=== PATIENT | male | born 1960 | race African-American/Black ===

== ENCOUNTER 2017-06-25 06:51 | Day surgery (SDC) | payer MEDICAID, SELFPAY ==
[2017-06-24 13:48] VITALS: BMI 31.4
[2017-06-25 07:40] VITALS: BP 120/64; PULSE 50; RESP 18; TEMP 36.7; O2SAT 100
[2017-06-25 08:05] LABS: POC Glucose,Bedside 88 mg/dL
--- NOTE | 2017-06-25 08:07 | P.PN_ITS ---
[facility] Anesthesia Checklist - Patient Identification Patient Identification: Arm Band, Verbal (Name & ) - Structural Data Admitted From: Home Planned Operative Procedure/s: colonoscopy Consent for Planned Operative Procedure(s) Verified: Yes Verified Documents: Surgical Consent - NPO Status Verified Time NPO: 00:00 - Chart Verification Results Verified: None - Additional verifications Patient : No Anesthesia Reactions: No Hx Blood Transfusions: No Blood Transfusion Reaction: No Cephalosporin Allergy: No Previous Colonoscopy: No - Cardiovascular Assessment Heart Sounds: S1 & S2 Pulse Strength: Strong Pulse Rhythm: Regular Peripheral Edema: No - Airway Assessment C-Spine Mobility Assessed: Yes TMJ Mobility Assessed: Yes Dentition: Edentulous - Neurological Assessment Level of Consciousness: Awake, Alert, Appropriate - Anesthesia Plan Anesthesia Risk discussed: Yes ASA Class: III Anesthesia Type: MAC [facility] Anesthesia HX I have reviewed the patient's past medical history: Yes Medical History: Reports:: Coronary Artery Disease, Diabetes Mellitus Type 2, Hyperlipidemia, Hypertension, Myocardial Infarction (states slight GA years ago , unsure when), Osteoporosis Denies:: Diabetes Mellitus Type 1, Seizures Other Medical History: Reports: Anemia, Osteoporosis Laterality Cases: Left: Arthroscopy Shoulder, Right: Arthroscopy Knee Other Surgeries: Yes: Colonoscopy. No: Pacemaker Amputation: No Fractures: Yes Comment: choly, RTCR *Family Hx:: Diabetes, Heart Attack, Hyperlipidemia, Hypertension
--- NOTE | 2017-06-25 08:46 | SUR.OPER ---
CAUTERY 00, COAG 25. GROUNDED TO RIGHT FLANK. SKIN INTACT UPON REMOVAL.
[2017-06-25 09:35] VITALS: BP 113/75; PULSE 77; RESP 18; TEMP 36.5; O2SAT 99
--- NOTE | 2017-06-25 09:35 | P.PCN_ITS ---
- Procedure: Date: 06/25/17 Procedure Performed:: Colonoscopy with polypectomy Indications:: This is a 56-year-old gentleman with a history of colon polyps on multiple occasions. Performing Provider:: Deonte Robledo MD Referring Provider:: Dr. Casper Sedation:: Monitored anesthesia care Procedure:: After informed consent was obtained, the patient was taken to the endoscopy suite. Monitored anesthesia care ensued after he was transferred to the left lateral decubitus position. Digital rectal exam revealed a somewhat boggy prostate, but no definitive mass lesion was noted. The colonoscope was placed in position. The entire colon was evaluated. Bowel preparation was moderate to poor with large volume irrigation and suctioning used to somewhat improve visualization. Fairly significant spasticity and lack of relaxation were also encountered. An 8 mm sessile cecal polyp with adjacent polyp was excised by way of snare and cold biopsy forceps. A 9 mm lobulated distal transverse colon polyp with some central ulceration was noted. This area was tattooed and the polyp was excised by way of snare. A complex polyp at 50 cm was excised by way of snare. A polyp at 40 cm and an adjacent polyp were excised by way of snare. Focal inflammation at 25 cm was biopsied. A polyp at 15 cm was excised by way of snare. No additional lesions seen. The colonoscope was carefully removed and the patient was transferred to recovery. Of note, the patient some hemorrhoidal cushions with no sign of thrombosis or bleeding. Findings:: Somewhat boggy prostate Fairly mild hemorrhoidal cushions Moderate to poor bowel preparation Spasticity and lack of relaxation 8 mm sessile cecal polyp 9 mm lobulated distal transverse colon polyp (tattooed) Complex polyp at 50 cm Polyp at 40 cm and adjacent polyp Inflammation at 25 cm Polyp at 15 cm Specimens:: 8 mm sessile cecal polyp 9 mm lobulated distal transverse colon polyp (tattooed) Complex polyp at 50 cm Polyp at 40 cm and adjacent polyp Inflammation at 25 cm Polyp at 15 cm Recommendations:: Repeat colonoscopy in 6-12 months secondary to size/nature/number of polyps ( particular the somewhat ulcerated polyp of the distal transverse colon), limited bowel preparation, and spasticity/lack of relaxation. Complications:: No immediate Estimated blood obtained (mL): 1
[2017-06-25 09:45] VITALS: BP 126/69; PULSE 73; RESP 18; TEMP 36.5; O2SAT 99
[2017-06-25 09:55] VITALS: BP 121/76; PULSE 73; RESP 18; TEMP 36.5; O2SAT 95
[2017-06-25 10:05] VITALS: BP 122/82; PULSE 76; RESP 18; TEMP 36.5; O2SAT 92
[2017-06-25 10:33] VITALS: BP 122/67; PULSE 78; RESP 18; TEMP 36.5; O2SAT 93
== END 2017-06-25 10:20 | disposition home or self-care (01) ==
LOC: OUTP 06:52
PROVIDERS: PCP Emergency Medicine; Visit Provider Surgery
PROC: 0DJD8ZZ Inspection of Lower Intestinal Tract, Via Natural or Artificial Opening Endoscopic (ICD-10-PCS; CPT 45385; principal; 2017-06-25 08:00)
DX: Z09 Encounter for follow-up examination after completed treatment for conditions other than malignant neoplasm (principal); Z86.010 Personal history of colon polyps; K63.5 Polyp of colon; E11.8 Type 2 diabetes mellitus with unspecified complications
CPT/HCPCS: 45385; 45380; 45381; 82962

== ENCOUNTER → 2017-07-17 13:11 | Outpatient (REF) | payer MEDICAID, SELFPAY ==
[2017-07-17 17:37] LABS: Amphetamine/Metha Screen,Urine Negative ng/mL (<1000); Barbiturates Screen,Urine Negative ng/mL (<200); Benzodiazepines Screen,Urine Negative ng/mL (200); Cannabinoid Screen,Urine Positive ng/mL (<50); Cocaine Screen,Urine Negative ng/g (<300); Methadone Screen,Urine Negative ng/mL (<300); Opiate Screen,Urine Positive ng/mL (<300); Phencyclidine Screen,Urine Negative ng/mL (<25)
== END ==
LOC: LAB 13:11
PROVIDERS: Visit Provider Emergency Medicine
DX: Z79.899 Other long term (current) drug therapy (principal)
CPT/HCPCS: 80305

== ENCOUNTER → 2017-08-04 14:32 | Outpatient (POV) | payer MEDICAID, SELFPAY | PROVIDERS: PCP Emergency Medicine; Visit Provider Internal Medicine | DX: Z00.00 Encounter for general adult medical examination without abnormal findings (principal) ==

== ENCOUNTER → 2017-08-17 14:18 | Outpatient (REF) | payer MEDICAID, SELFPAY ==
[2017-08-17 19:17] LABS: Amphetamine/Metha Screen,Urine Negative ng/mL (<1000); Barbiturates Screen,Urine Negative ng/mL (<200); Benzodiazepines Screen,Urine Positive ng/mL (200); Cannabinoid Screen,Urine Positive ng/mL (<50); Cocaine Screen,Urine Negative ng/g (<300); Methadone Screen,Urine Negative ng/mL (<300); Opiate Screen,Urine Negative ng/mL (<300); Phencyclidine Screen,Urine Negative ng/mL (<25)
== END ==
LOC: LAB 14:18
PROVIDERS: Visit Provider Emergency Medicine
DX: Z79.899 Other long term (current) drug therapy (principal)
CPT/HCPCS: 80305

== ENCOUNTER → 2017-08-18 10:08 | Outpatient (CLI) | payer MEDICAID, SELFPAY ==
[2017-08-18 10:45] VITALS: PULSE 71; PULSE 78
--- NOTE | 2017-08-18 11:18 | CT_ITS ---
CT chest wo con HISTORY: Follow-up abnormal chest x-ray, emphysema, follow-up abnormal chest CT ITS.REASON: ABNORMAL LUNG IMAGING ORDERING PHYSICIAN: Konstantin Maurer MD PATIENT AGE: 56 years TECHNIQUE: Axial images obtained. Sagittal and coronal reformatted images are also generated and reviewed. CONTRAST: None COMPARISON: CT scan of 10/04/2015 FINDINGS: Scattered small mediastinal lymph nodes. These are stable compared to the previous exam. Scattered calcifications noted hilar nodes. Normal heart size. Coronary artery calcification is present. Bolus emphysematous changes are present in the lung apices. Stable 4 mm nodule right upper lobe anteriorly. Calcified granulomas are present in the right lower lobe. Stable 3 mm nodule right upper lobe fibrotic changes are present in the lung bases. No new suspicious nodules are evident. Calcified granulomas are present in the superior segment of the left lower lobe associated with . There is a nodular opacity along the inferior aspect of this region measuring 6 mm which is developed in the interval and may be due to fibrotic change. 6 month follow-up however is recommended due to the new nature of the nodule. No effusions or infiltrates. No acute bony anomalies. IMPRESSION: 1. Bullous emphysematous changes with scattered areas of fibrosis with evidence of old granulomatous disease. No change mild mediastinal adenopathy. 2. A new 6 mm nodular opacity is present associated with an area of fibrosis and small blebs in the superior segment of the left lower lobe. Recommend 6 month follow-up
[2017-08-18 11:50] VITALS: BP 120/70; BP 130/82; PULSE 71; PULSE 82; RESP 18; RESP 24; O2SAT 91; O2SAT 99
== END ==
PROVIDERS: PCP Emergency Medicine; Visit Provider Internal Medicine
DX: R91.8 Other nonspecific abnormal finding of lung field (principal); J44.9 Chronic obstructive pulmonary disease, unspecified; R06.02 Shortness of breath
CPT/HCPCS: 71250; 94060; 94618; 94640; 94726; 94729

== ENCOUNTER → 2017-08-19 10:00 | Outpatient (CLI) | payer MEDICAID, SELFPAY ==
--- NOTE | 2017-08-19 | CA_ITS ---
PROCEDURE: 2-D M-mode and color Doppler study INDICATIONS FOR THE TEST: Chest pain X COPD Heart Murmur Tobacco SmokingX Palpitations Fatigue Syncope EdemaX HypertensionXDiabetes MellitusX Rheumatic Fever SOBXDOEXObesity Hyperlipidemia Family History HD Additional History PAD,CLAUDICATION,CAD PATIENT INFORMATION HEIGHT: 65 WEIGHT:192 GENDER: Male B/P:152/95 2-D/M-MODE INTERPRETATION: 2-D MEASUREMENTS OBSERVED VALUES IN CMS Right Ventricular Dimension (RVDd) .9 Interventricular Septum (Thickness)(IVsd) .7 Left Ventricular Internal Dimensions(LVIDd) 5.7 Left Ventricular Posterior Wall (Thickness)(LVPWd) .8 Aortic Root 3.3 Aortic Cusp Separation 1.6 Left Atrial Dimensions (LAD) 3.4 2D 1. Left atrium is qualitatively mildly enlarged, left ventricle is normal size, left ventricle wall thickness is upper limit of the normal, there is preserved left ventricular systolic function, visually estimated ejection fraction 55% with no obvious regional wall motion abnormality. 2. The right atrium is mildly enlarged, right ventricle is normal size and contractility. 3. The aortic valve is minimally thickened and fibrosed. 4. The mitral and tricuspid valve leaflets are minimally thickened. 5. The pulmonic valve is poorly visualized. 6. No significant pericardial effusion noted. DOPPLER INTERROGATION: Doppler interrogation of the aortic, mitral and tricuspid valvular presence of mild mitral and tricuspid regurgitation, tricuspid regurgitant jet velocity insufficient for calculation of the right ventricular systolic pressure, diastolic parameters are within normal range. CONCLUSION: 1. Mild biatrial enlargement, normal left ventricular size, preserved left ventricular systolic function, visually estimated ejection fraction 55% with no obvious regional wall motion abnormality. 2. Mild mitral and tricuspid regurgitation 3. No significant pericardial effusion noted.
--- NOTE | 2017-08-19 10:05 | US_ITS ---
US Arterial Ankle Brachial Ind INDICATION: Leg pain, claudication, hypertension, ex-smoker, coronary artery, hyperlipidemia ORDERING PHYSICIAN: Lonny Gonzalez MD PATIENT AGE: 56 years TECHNIQUE: Segmental pressures obtained of both right and left leg. These are compared to brachial blood pressure to yield index at each level sampled including summary DENNIS. The data sheets from the procedure are available in PACS FINDINGS Rest study only performed today No prior studies available for comparison. Blood pressures reported are in millimeters mercury. RIGHT LEG DENNIS = 1.0. Right TBI is 0.8 Brachial BP: 121 Thigh BP: 115 Calf BP: 129 Ankle PT: 128 Ankle DP : 130 Digit =99 LEFT LEG DENNIS = 1.2 Left TBI 0.8 Brachial BPD: 117 Thigh BP: 120 Calf BP: 133 Ankle PT:141 Ankle DP: 133 Digit 96 Pulses and waveforms: Normal IMPRESSION: The ABIs and TBI's as reported above are within normal limits. Waveforms and pulses are also unremarkable.
== END ==
PROVIDERS: PCP Emergency Medicine; Visit Provider Internal Medicine
DX: R07.9 Chest pain, unspecified (principal); R06.02 Shortness of breath; I73.9 Peripheral vascular disease, unspecified
CPT/HCPCS: 93306; 93922

== ENCOUNTER → 2017-09-07 09:48 | Outpatient (POV) | payer MEDICAID, SELFPAY | PROVIDERS: PCP Emergency Medicine; Visit Provider Specialist | DX: R20.2 Paresthesia of skin (principal); R20.0 Anesthesia of skin; R29.898 Other symptoms and signs involving the musculoskeletal system | CPT/HCPCS: 95886; 95910 ==

== ENCOUNTER → 2017-09-09 14:56 | Outpatient (CLI) | payer MEDICAID, SELFPAY ==
--- NOTE | 2017-09-09 14:59 | XR_ITS ---
X-ray 5 view C-spine XR cervical spine w flex/ext included Ordering Physician: Ellen Pierre MD Patient Age: 56 years: Male HISTORY: ITS.REASON: neck pain. No injury TECHNIQUE: 5 view C-spine series also flexion and extension views COMPARISON No cervical studies for comparison:March 2017 rib series FINDINGS Cervical spondylosis and degenerative disc changes C6/7 most pronounced disc space narrowing. Posterior hypertrophic ridging. Posterior Spurring yielding bilateral foraminal encroachment. Anterior marginal osteophytes most evident at this level. C5/6. Mild disc space narrowing and cervical spondylosis. Posterior hypertrophic ridging yields mild bilateral foraminal encroachment most evident the left at this level The remaining disc spaces appear intact. And remaining neural foramen patent with no significant encroachment. Apices the lungs clear. C1-C2 relationships normal. Minor degenerative facet changes seen in the C-spine. Flexion and extension views were included. No subluxation Perhaps very slight decreased, slightly limited flexion and extension from C5 through C7 but no subluxation. IMPRESSION 1. Cervical spondylosis & degenerative disc changes most pronounced at C6/7, C5-C6. Details above. . Posterior Spurring yields mild foraminal encroachment at both these levels 2. Flexion-extension views show only slight decreased mobility in this segment but no subluxation
--- NOTE | 2017-09-09 14:59 | XR_ITS ---
XR lumbar spine 2-3V Ordering Physician: Ellen Pierre MD Patient Age: 56 years: Male HISTORY: ITS.REASON: back pain TECHNIQUE: AP lateral and spot view lumbar spine COMPARISON :CT abdomen pelvis from 02/05/2017 FINDINGS The lumbar vertebral bodies appear intact. I would note that the images the lateral image includes only the inferior aspect of T12-S4 .. Patient with borderline narrowing at posterior aspect of L5/S1 disc space on the spot image L4/5Borderline disc narrowing posteriorly.. L3/4 with mild diffuse disc space narrowing prior CT showed trace disc bulge with borderline/to perhaps very early posterior hypertrophic ridging as seen towards the foramen bilaterally Multilevel anterior marginal osteophytes throughout the L-spine . These above features previously demonstrated on the sagittal reconstructions from CT abdomen pelvis 02/05/2017. IMPRESSION-- Mild degenerative changes Suggestion Scant disc space narrowing L3/4 disc level. Additional details in text. Marginal osteophytes
== END ==
PROVIDERS: PCP Emergency Medicine; Visit Provider Specialist
DX: M54.2 Cervicalgia (principal); R20.0 Anesthesia of skin; R20.2 Paresthesia of skin; M54.41 Lumbago with sciatica, right side; G89.29 Other chronic pain; R29.898 Other symptoms and signs involving the musculoskeletal system
CPT/HCPCS: 72052; 72100

== ENCOUNTER → 2017-09-10 08:51 | Outpatient (CLI) | payer MEDICAID, SELFPAY | PROVIDERS: PCP Emergency Medicine; Visit Provider Internal Medicine | DX: Z01.818 Encounter for other preprocedural examination (principal); F17.200 Nicotine dependence, unspecified, uncomplicated; I20.9 Angina pectoris, unspecified; I25.10 Atherosclerotic heart disease of native coronary artery without angina pectoris; I10 Essential (primary) hypertension; E78.4 Other hyperlipidemia; R06.02 Shortness of breath; E11.9 Type 2 diabetes mellitus without complications | CPT/HCPCS: 93017 ==

== ENCOUNTER → 2017-09-11 08:45 | Outpatient (REF) | payer MEDICAID, SELFPAY ==
[2017-09-14 12:47] LABS: Amphetamine/Metha Screen,Urine Negative ng/mL (<1000); Barbiturates Screen,Urine Negative ng/mL (<200); Benzodiazepines Screen,Urine Negative ng/mL (200); Cannabinoid Screen,Urine Positive ng/mL (<50); Cocaine Screen,Urine Negative ng/g (<300); Methadone Screen,Urine Negative ng/mL (<300); Opiate Screen,Urine Positive ng/mL (<300); Phencyclidine Screen,Urine Negative ng/mL (<25)
== END ==
LOC: LAB 08:45
PROVIDERS: Visit Provider Emergency Medicine
DX: Z79.891 Long term (current) use of opiate analgesic (principal)
CPT/HCPCS: 80305

== ENCOUNTER → 2017-10-12 09:39 | Outpatient (REF) | payer MEDICAID, SELFPAY ==
[2017-10-12 14:51] LABS: Amphetamine/Metha Screen,Urine Negative ng/mL (<1000); Barbiturates Screen,Urine Negative ng/mL (<200); Benzodiazepines Screen,Urine Negative ng/mL (200); Cannabinoid Screen,Urine Positive ng/mL (<50); Cocaine Screen,Urine Negative ng/g (<300); Methadone Screen,Urine Negative ng/mL (<300); Opiate Screen,Urine Positive ng/mL (<300); Phencyclidine Screen,Urine Negative ng/mL (<25)
== END ==
LOC: LAB 09:39
PROVIDERS: Visit Provider Nurse Practitioner Family
DX: Z79.899 Other long term (current) drug therapy (principal)
CPT/HCPCS: 80305

== ENCOUNTER → 2017-10-16 06:15 | Outpatient (CLI) | payer MEDICAID, SELFPAY ==
--- NOTE | 2017-10-16 06:18 | NM_ITS ---
History and Indications: Coronary artery disease, previous MT, hypertension, diabetes, hyperlipidemia, family history, chest pain, shortness of breath and fatigue Procedure: Patient received a 0.4 mg of Lexiscan, resting heart rate was 47 bpm resting blood pressure 131/69,with Lexiscan maximum heart rate achieved was 91 bpm which is less than 85% of the maximum predicted heart rate and a blood pressure was 135/73. With Lexiscan patient complained of shortness of breath and nausea. Electrocardiogram: Resting electrocardiogram showed sinus bradycardia with Lexiscan there is less than 1.[address] segment depression noted from the baseline EKG. The EKG portion of the Lexiscan Myoview is nondiagnostic. Cardiac stress and resting SPECT images: Cardiac stress and rest SPECT images were obtained using technetium 99 Myoview 32.2 mCi at stress gated 10.8 mCi at rest, gated SPECT further analysis of segmental wall motion and calculation of the ejection fraction also done. Cardiac stress and rest images show uniform myocardial activity without any segmental perfusion abnormality, computer derived ejection fraction is 48% with no obvious regional wall motion abnormality, right ventricle is mildly enlarged with normal contractility. Conclusion: 1. The EKG portion of the Lexiscan Myoview is nondiagnostic. 2. No obvious scintigraphic evidence of reversible ischemia seen, computer derived ejection fraction is 48% with no obvious regional wall motion abnormality, right ventricle is mildly enlarged with normal contractility.
--- NOTE | 2017-10-16 09:05 | HMH.ITSHM ---
metformin furosemide lisinopril metoprolol asa clopidogrel lovastatin ventolin
== END ==
PROVIDERS: PCP Emergency Medicine; Visit Provider Emergency Medicine
DX: R42 Dizziness and giddiness (principal)
CPT/HCPCS: 78452; 93017; A9502; J2785

== ENCOUNTER → 2017-11-03 10:10 | Outpatient (REF) | payer MEDICAID, SELFPAY ==
[2017-11-03 15:28] LABS: Amphetamine/Metha Screen,Urine Negative ng/mL (<1000); Barbiturates Screen,Urine Negative ng/mL (<200); Benzodiazepines Screen,Urine Negative ng/mL (200); Cannabinoid Screen,Urine Positive ng/mL (<50); Cocaine Screen,Urine Negative ng/g (<300); Methadone Screen,Urine Negative ng/mL (<300); Opiate Screen,Urine Negative ng/mL (<300); Phencyclidine Screen,Urine Negative ng/mL (<25)
== END ==
LOC: LAB 10:10
PROVIDERS: Visit Provider Emergency Medicine
DX: Z79.899 Other long term (current) drug therapy (principal)
CPT/HCPCS: 80305

== ENCOUNTER → 2017-11-09 13:48 | Outpatient (REF) | payer MEDICAID, SELFPAY ==
[2017-11-09 19:47] LABS: Alanine Aminotransferase 50 U/L (12-78); Alkaline Phosphatase 104 U/L (46-116); Aspartate Amino Transferase 28 U/L (15-37); Bilirubin,Direct 0.2 mg/dL (0.0-0.2); Bilirubin,Indirect 0.4 mg/dL (0.0-0.9); Bilirubin,Total 0.6 mg/dL (0.2-1.0); Total Protein,Serum 7.1 gm/dL (6.4-8.2)
[2017-11-09 20:37] LABS: Hemoglobin A1C 6.3 % (0.0-7.0)
[2017-11-09 21:55] LABS: Amphetamine/Metha Screen,Urine Negative ng/mL (<1000); Barbiturates Screen,Urine Negative ng/mL (<200); Benzodiazepines Screen,Urine Negative ng/mL (200); Cannabinoid Screen,Urine Positive ng/mL (<50); Cocaine Screen,Urine Negative ng/g (<300); Methadone Screen,Urine Negative ng/mL (<300); Opiate Screen,Urine Positive ng/mL (<300); Phencyclidine Screen,Urine Negative ng/mL (<25)
[2017-11-11 09:29] LABS: Hep A Ab, IgM Negative (Negative); Hepatitis B Core Antibody IgM Negative (Negative); Hepatitis B Surface Antigen Negative (Negative)
[2017-11-12 06:24] LABS: Hepatitis C Antibody <0.1 s/co ratio (0.0-0.9)
== END ==
LOC: LAB 13:48
PROVIDERS: Visit Provider Emergency Medicine
DX: E11.9 Type 2 diabetes mellitus without complications (principal); R53.83 Other fatigue; Z79.899 Other long term (current) drug therapy
CPT/HCPCS: 80074; 80076; 80305; 83036; 87522

== ENCOUNTER → 2017-12-02 13:59 | Outpatient (CLI) | payer MEDICAID, SELFPAY ==
--- NOTE | 2017-12-02 14:00 | XR_ITS ---
XR knee RT 4V HISTORY: ITS.REASON: right knee pain/ weightbearing views ORDERING PHYSICIAN: Jim Ram MD PATIENT AGE: 56 years COMPARISON: 11/20/2016 FINDINGS: Minimal osteoarthritic changes are present involving the medial compartment and patellofemoral joint. No fracture or dislocation is evident. No lytic or blastic change. No significant change from the previous exam. 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
== END ==
PROVIDERS: PCP Emergency Medicine; Visit Provider Orthopaedic Surgery
DX: M25.561 Pain in right knee (principal)
CPT/HCPCS: 73564

== ENCOUNTER → 2017-12-11 10:19 | Outpatient (CLI) | payer MEDICAID, SELFPAY ==
[2017-12-11 17:28] LABS: Amphetamine/Metha Screen,Urine Negative ng/mL (<1000); Barbiturates Screen,Urine Negative ng/mL (<200); Benzodiazepines Screen,Urine Negative ng/mL (<200); Cannabinoid Screen,Urine Positive ng/mL (<50); Cocaine Screen,Urine Negative ng/mL (<300); Methadone Screen,Urine Negative ng/mL (<300); Opiate Screen,Urine Negative ng/mL (<300); Phencyclidine Screen,Urine Negative ng/mL (<25)
== END ==
PROVIDERS: Visit Provider Emergency Medicine
DX: Z79.899 Other long term (current) drug therapy (principal)
CPT/HCPCS: 80305

== ENCOUNTER → 2017-12-30 10:50 | Outpatient (CLI) | payer MEDICAID, SELFPAY ==
[2017-12-30 13:48] LABS: Basophils # 0.1 K/mm3 (0-0.2); Basophils % 0.7 % (0.1-2.0); Eosinophils # 0.1 K/mm3 (0.0-0.4); Eosinophils % 1.5 % (0.1-12.0); Hematocrit 43.7 % (42.0-52.0); Hemoglobin 14.3 g/dL (14.1-18.0); Lymphocytes # 1.7 K/mm3 (0.7-4.5); Lymphocytes % 22.7 K/mm3 (10-50); Mean Corpuscular HGB Conc 32.7 g/dL (31.8-35.4); Mean Corpuscular Hemoglobin 31.1 pg (27.0-31.2); Mean Platelet Volume 7.5 fl (7.4-10.4); Monocytes # 0.5 K/mm3 (0.1-1.0); Neutrophils # 5.2 K/mm3 (1.8-7.8); Neutrophils % 68.1 % (37.0-80.0); Platelet Count 316 K/mm3 (142-424); Red Cell Distribution Width 13.3 % (11.5-17.5); White Blood Count 7.6 K/mm3 (4.8-10.8)
[2017-12-30 14:39] LABS: Erythrocyte Sedimentation Rate 25 mm/hr (0-20)
--- NOTE | 2017-12-30 14:42 | XR_ITS ---
XR chest 2V HISTORY: ITS.REASON: coughing up blood ORDERING PHYSICIAN: Marcos Casper MD PATIENT AGE: 57 years Technique: PA and lateral chest COMPARISON: Previous CT chest 08/18/2017 reveal bullous emphysematous changes with areas of fibrosis and granulomatous disease. Today's chest film appears similar to that CT scan view and similar to a March 2017 chest film from rib series. No discrete new findings. Again we see the large bulla, bleb superior to the left stephanie with the mild prominence left stephanie is similar to previous study. Stranding or scarring related to the the large bulla medial left upper chest is again noted. The right lung is clear unremarkable. Heart stephanie and mediastinal structures unremarkable. Calcified hilar nodes bilaterally. No pleural effusion. Chest wall unremarkable. Normal pulmonary vascularity. IMPRESSION...... PA and lateral chest stable chest. No acute findings COPD with bullous emphysematous changes again noted at left chest again noted Generous left stephanie appears similar to previous studies If symptoms progress follow-up suggested
== END ==
LOC: LAB 10:52 → RAD 14:42
PROVIDERS: PCP Emergency Medicine; Visit Provider Emergency Medicine
DX: R04.2 Hemoptysis (principal); Z72.0 Tobacco use
CPT/HCPCS: 71046; 85025; 85651

== ENCOUNTER → 2018-01-07 14:04 | Outpatient (CLI) | payer MEDICAID, SELFPAY ==
--- NOTE | 2018-01-07 14:06 | CT_ITS ---
CT chest wo con HISTORY: ITS.REASON: hemoptysis ORDERING PHYSICIAN: Marcos Casper MD PATIENT AGE: 57 years COMPARISON: 08/18/2017 Technique: Axial images obtained with sagittal and coronal reformats. All CT scans at the facility use one or more dose reduction, viz: automated exposure control, ma/kV adjustment per patient size (including targeted exams where dose is matched to indication, i.e. head), or iterative reconstruction technique. FINDINGS: There are scattered small mediastinal and hilar lymph nodes not significantly changed. No aortic aneurysm. Normal heart size. There are coronary artery calcifications. Extensive bullous changes are present in the upper lobes. There is evidence of old granulomatous disease. A noncalcified nodule present in the right upper lobe anteriorly at 4 mm unchanged. There is a noncalcified 6 mm nodule in the superior segment of the left lower lobe unchanged adjacent to some mild bullous changes and calcified granulomas. No new nodules are evident. There scattered calcified granulomas. No effusions or infiltrates. There is mild diffuse bronchial thickening. There is some mild infiltration of the axillary fat on both sides. This is of questionable etiology. Upper abdominal images shows mild dilatation of the mid abdominal aorta measuring up to 2.4 cm. IMPRESSION: 1. Stable CT appearance of the chest. 2. No change in the noncalcified pulmonary nodules and bullous changes.
== END ==
PROVIDERS: PCP Emergency Medicine; Visit Provider Emergency Medicine
DX: R04.2 Hemoptysis (principal); Z72.0 Tobacco use
CPT/HCPCS: 71250

== ENCOUNTER → 2018-01-26 10:55 | Outpatient (REF) | payer MEDICAID, SELFPAY ==
[2018-01-27 16:58] LABS: Amphetamine/Metha Screen,Urine Negative ng/mL (<1000); Barbiturates Screen,Urine Negative ng/mL (<200); Benzodiazepines Screen,Urine Negative ng/mL (<200); Cannabinoid Screen,Urine Positive ng/mL (<50); Cocaine Screen,Urine Negative ng/mL (<300); Methadone Screen,Urine Negative ng/mL (<300); Opiate Screen,Urine Negative ng/mL (<300); Phencyclidine Screen,Urine Negative ng/mL (<25)
== END ==
LOC: LAB 10:55
PROVIDERS: Visit Provider Emergency Medicine
DX: Z79.899 Other long term (current) drug therapy (principal)
CPT/HCPCS: 80305

== ENCOUNTER 2018-02-02 15:15 | Observation (INO) ==
--- NOTE | 2018-02-02 16:01 | Emergency Department Note ---
ED Disposition Clinical Impression: Lower gastrointestinal bleed Disposition: Still a Patient Condition on Discharge: Good Referrals: Marcos Casper MD [Primary Care Provider] - Forms: Work/School Release - Critical Care Critical Care Time: No Attestation: On 02/02/18, the high probability of a clinically significant, sudden or life threatening deterioration of the following system(s) required my full and direct attention, intervention and personal management. The time I documented below is in addition to time spent performing reported procedures but includes the following listed in this critical care notation. Medical Decision Making - [place] Inquiry Pt receiving controlled substance: No Vital Signs: 02/02/18 15:23 02/02/18 15:34 02/02/18 15:47 Temperature 98.9 F Temperature Source Oral Pulse Rate [Left Radial] 59 L 60 65 Respiratory Rate 16 Blood Pressure [Right Arm] 112/70 118/75 120/78 Blood Pressure Mean [Right Arm] 84 89 92 Blood Pressure Source [Right Arm] Manual Cuff/ Doppler Manual Cuff/ Doppler Blood Pressure Position [Right Arm] Sitting Sitting 02 Sat by Pulse Oximetry 98 97 100 Oxygen Delivery Method Room Air 02/02/18 16:21 02/02/18 16:55 Temperature Temperature Source Pulse Rate [Left Radial] 70 78 Respiratory Rate Blood Pressure [Right Arm] 127/82 130/79 Blood Pressure Mean [Right Arm] 97 96 Blood Pressure Source [Right Arm] Manual Cuff/ Doppler Automatic Cuff Blood Pressure Position [Right Arm] Sitting Sitting 02 Sat by Pulse Oximetry 100 98 Oxygen Delivery Method - Lab Data Lab Results 02/02/18 15:45: WBC 7.1, RBC 4.19 L, Hgb 13.3 L, Hct 40.2 L, MCV 95.9 H, MCH 31.7 H, MCHC 33.1, RDW 13.6, Plt Count 271, MPV 7.0 L, Neut % (Auto) 61.5, Lymph % (Auto) 30.7, [place] % (Auto) 5.5, Eos % (Auto) 1.8, Baso % (Auto) 0.6, Neut # (Auto) 4.3, Lymph # (Auto) 2.2, [place] # (Auto) 0.4, Eos # (Auto) 0.1, Baso # (Auto) 0.0 02/02/18 15:45: Sodium 136, Potassium 3.8, Chloride 103, Carbon Dioxide 31, Anion Gap 5.8, BUN 14, Creatinine 1.16, Estimated Creat Clear 85, Estimated GFR 65, Est GFR ( Amer) 79, Glucose 104, Calcium 8.8, Total Bilirubin 0.8, AST 12 L, ALT 18, Alkaline Phosphatase 84, Total Protein 7.5, Albumin 3.9, Globulin 3.6 H, Albumin/Globulin Ratio 1.1 02/02/18 15:45: PT 10.2, INR 0.99, APTT 29.9 02/02/18 16:05: Stool Occult Blood Positive A Result diagrams: 02/02/18 15:45 02/02/18 15:45 Orders (Tests/Meds): ED MEDICATIONS Discontinued Medications Generic Name Dose Route Start Last Admin Trade Name Freq PRN Reason Stop Dose Admin Sodium Chloride 1,000 mls @ 999 mls/hr 02/02/18 15:45 02/02/18 15:50 Sod Chlor 0.9% 1000ml Bag IV 02/02/18 16:45 999 mls/hr .[id number] YADY Administration - Physician Consults Physician Consulted: Becca Robledo Time: 16:56 Reason -: Surgical Eval/Care Comment/Response: Requests admission for observation under primary care provider , consult for Dr. Robledo to see the patient in the morning Additional Consult: Erin Casper Time: 17:08 Reason -: Admission Comment/Response: Agrees to admit the patient to the hospital. We discussed the patient's clinical information, including history, exam, laboratory and radiology results and ED course. Per hospital procedure, I will write temporary bridge inpatient orders on the patient. Specific orders requested by the admitting physician: Serial H&H, surgical consult General Adult HPI - General Chief complaint: GI Bleed Stated complaint: blood in stool Time Seen by Provider: 02/02/18 16:01 Mode of Arrival: Ambulatory Limitations: No Limitations Description of Symptoms (Recalled from ER Triage Doc. by RN): Pt states that he had a colonoscopy the and went for fu today and after went to the bathroom and had dark blood colored stool with some right abdomen pain - History of Present Illness HPI narrative: Patient states he had colonoscopy done on 01/21/18. Had a follow-up appointment today with Dr. Robledo. He says after his appointment he developed some right sided abdominal pain. He then went home and passed a large amount of dark red blood into the toilet. He estimates 1/2 pint to 1 pint. No vomiting of blood. No fever. He is on Plavix. - Related Data Home Medications Medication Instructions Recorded Confirmed metformin 850 mg tablet 850 mg PO BID 06/17/17 02/02/18 Amlodipine Besylate [Amlodipine 10 mg PO DAILY 11/02/17 02/02/18 10mg Tab] Blood Sugar Diagnostic [Blood 0 units .ROUTE .MEDSUPPLY 11/02/17 02/02/18 Glucose Test Strip] hydroCHLOROthiazide [HCTZ 12.5mg 12.5 mg PO QAM 11/02/17 02/02/18 capsule] Sucralfate [Sucralfate 1gm 1 g PO BID 02/02/18 02/02/18 Tab] Previous Rx's Medication Instructions Recorded albuterol sulfate HFA 90 2 puff INHALATION Q4-6H PRN 90 09/07/17 mcg/actuation aerosol inhaler Days #3 units fluticasone 50 mcg/actuation nasal 50 mcg INTRANASAL DAILY PRN 90 09/07/17 spray,suspension Days #47.4 g aspirin 81 mg tablet,delayed 81 mg PO QDAY #30 tab 10/05/17 release lansoprazole 30 mg capsule,delayed 30 mg PO QHS #90 cap 12/03/17 release metoprolol tartrate 25 mg tablet 25 mg PO BID #180 tab MDD 12/03/17 hypertension gabapentin 800 mg tablet 800 mg PO TID 30 Days #90 tab 12/30/17 furosemide 40 mg tablet 40 mg PO DAILY 30 Days #30 tab 01/01/18 lisinopril 20 mg tablet 20 mg PO QDAY #90 tab 01/01/18 clopidogrel 75 mg tablet 75 mg PO DAILY #30 tab 02/01/18 lovastatin 20 mg tablet 20 mg PO QHS #90 tab 02/01/18 Allergies Allergy/AdvReac Type Severity Reaction Status Date / Time naproxen [NAPROXEN] Allergy Mild NA-NAUSEA/V Verified 02/02/18 09:31 OMITING tramadol [TRAMADOL] Allergy Mild NA-NAUSEA Verified 02/02/18 09:31 [facility] History I have reviewed the patient's past medical history: Yes Medical History: Reports:: Chronic Obstructive Pulmonary Disease (COPD), Coronary Artery Disease, Cerebrovascular Accident, Diabetes Mellitus Type 2, Hyperlipidemia, Hypertension, Myocardial Infarction, Osteoporosis Denies:: Seizures Other Medical History: Reports: Anemia, Arthritis, Cataracts, Osteoporosis. Denies: Blood Transfusion Reaction Comment: Sleep apnea, enlarged prostate, neck pain, back pain, stroke, neuropathy, rls, anxiety Laterality Cases: Left: Arthroscopy Shoulder, Right: Arthroscopy Knee Other Surgeries: Yes: Colonoscopy Amputation: No Fractures: Yes Comment: Gallbladder, cardiac cath, cardiac ablation - Social History Smoking Status: Former smoker Tobacco Type: cigarettes # Packs/Day (cigarettes): 1 Alcohol Intake: never Alcohol Intake Frequency:: holidays/special occasions only Substance Use Type: marijuana Occupational Status: disabled - Psychiatric History Expresses thoughts of harming self/others: None Suicide Plan Description: No Plan Family Hx:: Diabetes, Hypertension, Heart Attack ROS Obtained: Yes All systems reviewed & no additional complaints - Constitutional Constitutional: Denies fever(s) - Cardiovascular Cardiovascular: Denies chest pain - Respiratory Respiratory: No dyspnea - Gastrointestinal Gastrointestingal: Reports: abdominal pain, bright red blood in stools. Denies : vomiting blood Physical Exam - General General appearance: alert, in no apparent distress - Head Head exam: atraumatic, normocephalic, normal inspection - Eye Eye exam: Present: normal appearance, PERRL, EOMI - ENT ENT exam: Present: normal exam, normal oropharynx, mucous membranes moist, TM's normal bilaterally, normal external ear exam - Neck Neck exam: Present: normal inspection, full ROM, trachea midline. Absent: meningismus, lymphadenopathy - Chest Chest inspection: Present: normal inspection, symmetric chest wall rise. Absent : tenderness - Respiratory Respiratory exam: Present: normal lung sounds bilaterally. Absent: respiratory distress - Cardiovascular Cardiovascular exam: Present: regular rate, normal rhythm. Absent: JVD - Abdominal Exam Abdominal exam: Present: soft, tenderness, normal bowel sounds. Absent: distention, guarding, rebound, rigidity Abdominal tenderness: Present: RUQ, RLQ, mild - Rectal Exam Rectal exam: Present: normal inspection, normal rectal tone, tenderness, other ( Small amount of bright red blood in rectum). Absent: mass - Extremities Exam Extremities exam: Present: normal inspection, full ROM, normal capillary refill. Absent: calf tenderness - Back Exam Back exam: Present: normal inspection. Absent: tenderness - Neurological Exam Neurological exam: Present: alert, oriented X3 - Psychiatric Psychiatric exam: Present: normal affect, normal mood - Skin Skin exam: Present: warm, dry, intact, normal color
[2018-02-02 16:06] LABS: Basophils % 0.6 % (0.1-2.0); Eosinophils # 0.1 K/mm3 (0.0-0.4); Eosinophils % 1.8 % (0.1-12.0); Hematocrit 40.2 % (42.0-52.0); Hemoglobin 13.3 g/dL (14.1-18.0); Lymphocytes # 2.2 K/mm3 (0.7-4.5); Lymphocytes % 30.7 K/mm3 (10-50); Mean Corpuscular HGB Conc 33.1 g/dL (31.8-35.4); Mean Corpuscular Hemoglobin 31.7 pg (27.0-31.2); Mean Corpuscular Volume 95.9 fl (80-94); Monocytes # 0.4 K/mm3 (0.1-1.0); Monocytes % 5.5 % (1.7-9.3); Neutrophils # 4.3 K/mm3 (1.8-7.8); Neutrophils % 61.5 % (37.0-80.0); Platelet Count 271 K/mm3 (142-424); Red Blood Count 4.19 M/mm3 (4.60-6.20); Red Cell Distribution Width 13.6 % (11.5-17.5); White Blood Count 7.1 K/mm3 (4.8-10.8)
[2018-02-02 16:07] LABS: Activated Partial Thrombo Time 29.9 seconds (23.6-34.0); INR 0.99 (0.9-1.1); Prothrombin Time 10.2 seconds (9.4-11.8)
[2018-02-02 16:09] LABS: Albumin Level 3.9 gm/dL (3.4-5.0); Albumin/Globulin Ratio 1.1 (1.1-1.8); Anion Gap 5.8 mEq/L (5-15); Bilirubin,Total 0.8 mg/dL (0.2-1.0); Calcium 8.8 mg/dL (8.5-10.1); Globulin 3.6 gm/dl (1.3-3.2); Potassium 3.8 mmoL/L (3.5-5.1); Total Protein,Serum 7.5 gm/dL (6.4-8.2)
[2018-02-02 22:04] LABS: Basophils % 0.6 % (0.1-2.0); Eosinophils # 0.2 K/mm3 (0.0-0.4); Eosinophils % 3.1 % (0.1-12.0); Hematocrit 39.7 % (42.0-52.0); Lymphocytes # 2.9 K/mm3 (0.7-4.5); Lymphocytes % 46.2 K/mm3 (10-50); Mean Corpuscular HGB Conc 32.7 g/dL (31.8-35.4); Mean Corpuscular Hemoglobin 31.3 pg (27.0-31.2); Mean Corpuscular Volume 95.7 fl (80-94); Mean Platelet Volume 7.4 fl (7.4-10.4); Monocytes # 0.4 K/mm3 (0.1-1.0); Monocytes % 6.7 % (1.7-9.3); Neutrophils # 2.7 K/mm3 (1.8-7.8); Neutrophils % 43.5 % (37.0-80.0); Platelet Count 267 K/mm3 (142-424); Red Blood Count 4.15 M/mm3 (4.60-6.20); Red Cell Distribution Width 13.6 % (11.5-17.5); White Blood Count 6.2 K/mm3 (4.8-10.8)
[2018-02-03 06:14] LABS: Basophils % 0.9 % (0.1-2.0); Eosinophils # 0.2 K/mm3 (0.0-0.4); Eosinophils % 3.5 % (0.1-12.0); Hematocrit 38.6 % (42.0-52.0); Hemoglobin 12.6 g/dL (14.1-18.0); Lymphocytes # 2.6 K/mm3 (0.7-4.5); Lymphocytes % 56.8 K/mm3 (10-50); Mean Corpuscular HGB Conc 32.7 g/dL (31.8-35.4); Mean Corpuscular Hemoglobin 31.6 pg (27.0-31.2); Mean Corpuscular Volume 96.6 fl (80-94); Mean Platelet Volume 6.9 fl (7.4-10.4); Monocytes # 0.3 K/mm3 (0.1-1.0); Monocytes % 5.7 % (1.7-9.3); Neutrophils # 1.5 K/mm3 (1.8-7.8); Platelet Count 238 K/mm3 (142-424); Red Blood Count 3.99 M/mm3 (4.60-6.20); Red Cell Distribution Width 13.7 % (11.5-17.5); White Blood Count 4.6 K/mm3 (4.8-10.8)
--- NOTE | 2018-02-03 06:23 | Consult Report ---
*Admission Date: 02/02/18 *Chief complaint: blood in stool *History of present illness: This is a 57-year-old gentleman who recently underwent colonoscopy with removal of a small adenomatous polyp. He was seen in follow-up yesterday and was essentially without complaint. After returning home he developed some right- sided abdominal pain and subsequently had significant "dark blood in stool". Some epigastric and right-sided "crampy" pain. Review of Systems - Constitutional Denies body ache(s) - Eyes Denies change in vision - ENT Denies change in voice - *Cardiovascular Denies chest pain - *Respiratory Denies cough, Denies shortness of breath - *Gastrointestinal Reports abdominal pain, Reports black, tarry stools, Denies vomiting blood, Denies bright, red blood in stools - *Genitourinary Denies difficulty urinating - *Musculoskeletal Denies abnormal walking [facility] History Medical History: Reports:: Chronic Obstructive Pulmonary Disease (COPD), Coronary Artery Disease, Cerebrovascular Accident, Diabetes Mellitus Type 2, Hyp erlipidemia, Hypertension, Myocardial Infarction, Osteoporosis Denies:: Cancer, Diabetes Mellitus Type 1, MRSA, Seizures Other Medical History: Reports: Anemia, Arthritis, Cataracts, Osteoporosis. Denies: Blood Transfusion Reaction Laterality Cases: Left: Arthroscopy Shoulder, Right: Arthroscopy Knee Other Surgeries: Yes: Cardiac Catheterization, Cholecystectomy, Colonoscopy, EGD Amputation: No Fractures: No - *Social History Educational Level: Completed High School Smoking Status: Former smoker Tobacco Type: cigarettes # Packs/Day (cigarettes): 1 #Yrs smoked (if former smoker): 40 Smoking End Date: 06/22/2017 Alcohol Intake: former Alcohol Intake Frequency:: holidays/special occasions only Substance Use Type: marijuana Occupational Status: disabled Housing: apartment Household Members: children - Psychiatric History Expresses thoughts of harming self/others: None Suicide Plan Description: No Plan *Family Hx:: Cancer, Coronary Artery Disease, Diabetes, Heart Attack, Hyperlipidemia, Hypertension, Stroke Meds Home Medications Medication Instructions Recorded Confirmed Type metformin 850 mg tablet 850 mg PO BID 06/17/17 02/02/18 History Amlodipine Besylate [Amlodipine 10 mg PO DAILY 11/02/17 02/02/18 History 10mg Tab] Blood Sugar Diagnostic [Blood 0 units .ROUTE .MEDSUPPLY 11/02/17 02/02/18 H istory Glucose Test Strip] hydroCHLOROthiazide [HCTZ 12.5mg 12.5 mg PO QAM 11/02/17 02/02/18 History capsule] Hydrocod/Acet 5/325 mg [[place] 1 each PO BID 02/02/18 02/02/18 History 5/325mg tablet] Sucralfate [Sucralfate 1gm 1 g PO BID 02/02/18 02/02/18 History Tab] Allergies Allergy/AdvReac Type Severity Reaction Status Date / Time naproxen [NAPROXEN] Allergy Mild NA-NAUSEA/V Verified 02/02/18 09:31 OMITING tramadol [TRAMADOL] Allergy Mild NA-NAUSEA Verified 02/02/18 09:31 Exam Vital signs and Labs for Last 24 Hours: Temp Pulse Resp BP Pulse Ox 97.9 F 42 L 14 115/52 100 02/03/18 04:00 02/03/18 04:00 02/03/18 04:00 02/03/18 04:00 02/03/18 04:00 Laboratory Results - last 24 hr 02/02/18 15:45: WBC 7.1, RBC 4.19 L, Hgb 13.3 L, Hct 40.2 L, MCV 95.9 H, MCH 31.7 H, MCHC 33.1, RDW 13.6, Plt Count 271, MPV 7.0 L, Neut % (Auto) 61.5, Lymph % (Auto) 30.7, [place] % (Auto) 5.5, Eos % (Auto) 1.8, Baso % (Auto) 0.6, Neut # (Auto) 4.3, Lymph # (Auto) 2.2, [place] # (Auto) 0.4, Eos # (Auto) 0.1, Baso # (Auto) 0.0 02/02/18 15:45: Sodium 136, Potassium 3.8, Chloride 103, Carbon Dioxide 31, Anion Gap 5.8, BUN 14, Creatinine 1.16, Estimated Creat Clear 85, Estimated GFR 65, Est GFR ( Amer) 79, Glucose 104, Calcium 8.8, Total Bilirubin 0.8, AST 12 L, ALT 18, Alkaline Phosphatase 84, Total Protein 7.5, Albumin 3.9, Globulin 3.6 H, Albumin/Globulin Ratio 1.1 02/02/18 15:45: PT 10.2, INR 0.99, APTT 29.9 02/02/18 16:05: Stool Occult Blood Positive A 02/02/18 21:11: POC Glucose 121 H 02/02/18 21:58: WBC 6.2, RBC 4.15 L, Hgb 13.0 L, Hct 39.7 L, MCV 95.7 H, MCH 31.3 H, MCHC 32.7, RDW 13.6, Plt Count 267, MPV 7.4, Neut % (Auto) 43.5, Lymph % (Auto) 46.2, [place] % (Auto) 6.7, Eos % (Auto) 3.1, Baso % (Auto) 0.6, Neut # (Auto) 2.7, Lymph # (Auto) 2.9, [place] # (Auto) 0.4, Eos # (Auto) 0.2, Baso # (Auto) 0.0 02/03/18 05:08: WBC 4.6 L D, RBC 3.99 L, Hgb 12.6 L, Hct 38.6 L, MCV 96.6 H, MCH 31.6 H, MCHC 32.7, RDW 13.7, Plt Count 238, MPV 6.9 L, Neut % (Auto) 33.0 L, Lymph % (Auto) 56.8 H, [place] % (Auto) 5.7, Eos % (Auto) 3.5, Baso % (Auto) 0.9, Neut # (Auto) 1.5 L, Lymph # (Auto) 2.6, [place] # (Auto) 0.3, Eos # (Auto) 0.2, Baso # (Auto) 0.0 I & O for Last 24 hours: Intake & Output 01/31/18 02/01/18 02/02/18 02/03/18 11:59 11:59 11:59 11:59 Weight 183 lb 7.993 oz - Constitutional no acute distress - *Routine HEENT Exam Head: Present: normocephalic, atraumatic - *Routine Neck Exam Present: full ROM - *Routine Respiratory Exam Absent: respiratory distress - *Routine Cardiovascular Exam Present: RRR - *Routine Abdominal Exam Present: soft Results - Labs 02/03/18 05:08 02/02/18 15:45 Laboratory Results - last 24 hr 02/02/18 15:45: WBC 7.1, RBC 4.19 L, Hgb 13.3 L, Hct 40.2 L, MCV 95.9 H, MCH 31.7 H, MCHC 33.1, RDW 13.6, Plt Count 271, MPV 7.0 L, Neut % (Auto) 61.5, Lymph % (Auto) 30.7, [place] % (Auto) 5.5, Eos % (Auto) 1.8, Baso % (Auto) 0.6, Neut # (Auto) 4.3, Lymph # (Auto) 2.2, [place] # (Auto) 0.4, Eos # (Auto) 0.1, Baso # (A uto) 0.0 02/02/18 15:45: Sodium 136, Potassium 3.8, Chloride 103, Carbon Dioxide 31, Anion Gap 5.8, BUN 14, Creatinine 1.16, Estimated Creat Clear 85, Estimated GFR 65, Est GFR ( Amer) 79, Glucose 104, Calcium 8.8, Total Bilirubin 0.8, AST 12 L, ALT 18, Alkaline Phosphatase 84, Total Protein 7.5, Albumin 3.9, Globulin 3.6 H, Albumin/Globulin Ratio 1.1 02/02/18 15:45: PT 10.2, INR 0.99, APTT 29.9 02/02/18 16:05: Stool Occult Blood Positive A 02/02/18 21:11: POC Glucose 121 H 02/02/18 21:58: WBC 6.2, RBC 4.15 L, Hgb 13.0 L, Hct 39.7 L, MCV 95.7 H, MCH 31.3 H, MCHC 32.7, RDW 13.6, Plt Count 267, MPV 7.4, Neut % (Auto) 43.5, Lymph % (Auto) 46.2, [place] % (Auto) 6.7, Eos % (Auto) 3.1, Baso % (Auto) 0.6, Neut # (Auto) 2.7, Lymph # (Auto) 2.9, [place] # (Auto) 0.4, Eos # (Auto) 0.2, Baso # (Auto) 0.0 02/03/18 05:08: WBC 4.6 L D, RBC 3.99 L, Hgb 12.6 L, Hct 38.6 L, MCV 96.6 H, MCH 31.6 H, MCHC 32.7, RDW 13.7, Plt Count 238, MPV 6.9 L, Neut % (Auto) 33.0 L, Lymph % (Auto) 56.8 H, [place] % (Auto) 5.7, Eos % (Auto) 3.5, Baso % (Auto) 0.9, Neut # (Auto) 1.5 L, Lymph # (Auto) 2.6, [place] # (Auto) 0.3, Eos # (Auto) 0.2, Baso # (Auto) 0.0 Assessment and Plan (1) Gastrointestinal hemorrhage Current visit: Yes Status: Acute Category: Medical Code(s): K92.2 - Noemy rointestinal hemorrhage, unspecified Uncertain with regard to source; however, as he does complain of "dark blood in stool" the possibility of an upper source exists and esophagogastroduodenoscopy is warranted. He did recently undergo colonoscopy with removal of a small adenomatous polyp. Some hemorrhoidal cushions noted; however, no thrombosis or active bleeding was seen at that time. The patient did have fairly poor bowel preparation and further evaluation of his colon may be warranted in the very near future. In addition, the possibility of a small bowel source that is not amenable to endoscopy is a consideration. EGD today
--- NOTE | 2018-02-03 07:27 | Pharmacy Consult Notes ---
[facility] Pharmacy VTE Monitoring - Patient Demographics Admission date: 02/02/18 Report Date: 02/03/18 Time: 07:27 Allergies/Adverse Reactions: Patient Allergies naproxen [NAPROXEN] Allergy (Mild, Verified 02/02/18 09:31) NA-NAUSEA/VOMITING tramadol [TRAMADOL] Allergy (Mild, Verified 02/02/18 09:31) NA-NAUSEA Height: 1.65 m Weight: 83.234 kg Patient Problems: Current Active Problems Lower gastrointestinal bleed (Acute) Gastrointestinal hemorrhage (Acute) - VTE Risk Labs: VTE Related Lab Results Hgb 12.6 g/dL (14.1-18.0) L 02/03/18 05:08 Hct 38.6 % (42.0-52.0) L 02/03/18 05:08 Plt Count 238 K/mm3 (142-424) 02/03/18 05:08 PT 10.2 seconds (9.4-11.8) 02/02/18 15:45 INR 0.99 (0.9-1.1) 02/02/18 15:45 APTT 29.9 seconds (23.6-34.0) 02/02/18 15:45 BUN 14 mg/dL (7-18) 02/02/18 15:45 Creatinine 1.16 mg/dL (0.70-1.30) 02/02/18 15:45 Estimated Creat Clear 85 mL/min (0-300) 02/02/18 15:45 Was VTE Risk Assessment Performed: Yes VTE Score: 2 VTE Risk Level: Low Risk Clinical Trial Participant: No - Prophylaxis VTE Prophylaxis Ordered?: Yes Types of VTE Prophylaxis: TEDS Knee High
[2018-02-03 08:37] LABS: Eosinophils % 3 % (0-3); Lymphocytes % 56 % (10-50); Monocytes % 13 % (2-9); Neutrophils % 26 % (42-76); RBC Morphology Normal; Total Cells Counted 100
--- NOTE | 2018-02-03 09:23 | History & Physical Report ---
*Admission Date: 02/02/18 *Chief complaint: gi bleeding *History of present illness: This is a 57-year-old gentleman who recently underwent colonoscopy with removal of a small adenomatous polyp. He was seen in follow-up yesterday and was essentially without complaint. After returning home he developed some right- sided abdominal pain and subsequently had significant "dark blood in stool". Some epigastric and right-sided "crampy" pain. [facility] History I have reviewed the patient's past medical history: Yes Medical History: Reports:: Chronic Obstructive Pulmonary Disease (COPD), Coronary Artery Disease, Cerebrovascular Accident, Diabetes Mellitus Type 2, Hyperlipidemia, Hypertension, Myocardial Infarction, Osteoporosis Denies:: Cancer, Diabetes Mellitus Type 1, MRSA, Seizures Other Medical History: Reports: Anemia, Arthritis, Cataracts, Osteoporosis. Denies: Blood Transfusion Reaction Laterality Cases: Left: Arthroscopy Shoulder, Right: Arthroscopy Knee Other Surgeries: Yes: Cardiac Catheterization, Cholecystectomy, Colonoscopy, EGD Amputation: No Fractures: No - *Social History Educational Level: Completed High School Smoking Status: Former smoker Tobacco Type: cigarettes # Packs/Day (cigarettes): 1 #Yrs smoked (if former smoker): 40 Smoking End Date: 06/22/2017 Alcohol Intake: former Alcohol Intake Frequency:: holidays/special occasions only Substance Use Type: marijuana Occupational Status: disabled Housing: apartment Household Members: children - Psychiatric History Expresses thoughts of harming self/others: None Suicide Plan Description: No Plan *Family Hx:: Cancer, Coronary Artery Disease, Diabetes, Heart Attack, Hyperlipidemia, Hypertension, Stroke Review of Systems - Review of Systems Review of systems:: pertinent systems reviewed and negative unless documented below - Constitutional Denies fever(s), Denies headache(s) - Eyes Denies change in vision - ENT Denies sore throat - *Cardiovascular Denies chest pain with activity - *Respiratory Denies cough - *Gastrointestinal Reports abdominal pain, Reports black, tarry stools, Reports nausea, Denies coffee ground vomit - *Genitourinary Denies blood in urine - *Musculoskeletal Denies joint pain - Integumentary/Breasts Denies rash - *Neurologic Reports abnormal walking, Denies seizure-like activity - Psychiatric Denies anxiety Meds Home Medications Medication Instructions Recorded Confirmed Type metformin 850 mg tablet 850 mg PO BID 06/17/17 02/02/18 History Amlodipine Besylate [Amlodipine 10 mg PO DAILY 05/28/18 08/28/18 History 10mg Tab] Blood Sugar Diagnostic [Blood 0 units .ROUTE .MEDSUPPLY 11/02/17 02/02/18 History Glucose Test Strip] hydroCHLOROthiazide [HCTZ 12.5mg 12.5 mg PO QAM 11/02/17 02/02/18 History capsule] Hydrocod/Acet 5/325 mg [[place] 1 each PO BID 02/02/18 02/02/18 History 5/325mg tablet] Sucralfate [Sucralfate 1gm 1 g PO BID 02/02/18 02/02/18 History Tab] Allergies Allergy/AdvReac Type Severity Reaction Status Date / Time naproxen [NAPROXEN] Allergy Mild NA-NAUSEA/V Verified 02/02/18 09:31 OMITING tramadol [TRAMADOL] Allergy Mild NA-NAUSEA Verified 02/02/18 09:31 Exam Vital signs and Labs for Last 24 Hours: Temp Pulse Resp BP Pulse Ox 97.6 F 45 L 18 121/68 98 02/03/18 07:52 02/03/18 07:52 02/03/18 07:52 02/03/18 07:52 02/03/18 08:00 Laboratory Results - last 24 hr 02/02/18 15:45: WBC 7.1, RBC 4.19 L, Hgb 13.3 L, Hct 40.2 L, MCV 95.9 H, MCH 31.7 H, MCHC 33.1, RDW 13.6, Plt Count 271, MPV 7.0 L, Neut % (Auto) 61.5, Lymph % (Auto) 30.7, [place] % (Auto) 5.5, Eos % (Auto) 1.8, Baso % (Auto) 0.6, Neut # (Auto) 4.3, Lymph # (Auto) 2.2, [place] # (Auto) 0.4, Eos # (Auto) 0.1, Baso # (Auto) 0.0 02/02/18 15:45: Sodium 136, Potassium 3.8, Chloride 103, Carbon Dioxide 31, Anion Gap 5.8, BUN 14, Creatinine 1.16, Estimated Creat Clear 85, Estimated GFR 65, Est GFR ( Amer) 79, Glucose 104, Calcium 8.8, Total Bilirubin 0.8, AST 12 L, ALT 18, Alkaline Phosphatase 84, Total Protein 7.5, Albumin 3.9, Globulin 3.6 H, Albumin/Globulin Ratio 1.1 02/02/18 15:45: PT 10.2, INR 0.99, APTT 29.9 02/02/18 16:05: Stool Occult Blood Positive A 02/02/18 21:11: POC Glucose 121 H 02/02/18 21:58: WBC 6.2, RBC 4.15 L, Hgb 13.0 L, Hct 39.7 L, MCV 95.7 H, MCH 31.3 H, MCHC 32.7, RDW 13.6, Plt Count 267, MPV 7.4, Neut % (Auto) 43.5, Lymph % (Auto) 46.2, [place] % (Auto) 6.7, Eos % (Auto) 3.1, Baso % (Auto) 0.6, Neut # (Auto) 2.7, Lymph # (Auto) 2.9, [place] # (Auto) 0.4, Eos # (Auto) 0.2, Baso # (Auto) 0.0 02/03/18 05:08: WBC 4.6 L D, RBC 3.99 L, Hgb 12.6 L, Hct 38.6 L, MCV 96.6 H, MCH 31.6 H, MCHC 32.7, RDW 13.7, Plt Count 238, MPV 6.9 L, Neut % (Auto) 33.0 L, Lymph % (Auto) 56.8 H, [place] % (Auto) 5.7, Eos % (Auto) 3.5, Baso % (Auto) 0.9, Neut # (Auto) 1.5 L, Lymph # (Auto) 2.6, [place] # (Auto) 0.3, Eos # (Auto) 0.2, Baso # (Auto) 0.0, Total Counted 100, Neutrophils % (Manual) 26 L, Lymphocytes % (Manual) 56 H, Atypical Lymphs % 2.0, Monocytes % (Manual) 13 H, Eosinophils % (Manual) 3, Platelet Estimate Normal, RBC Morphology Normal 02/03/18 06:40: POC Glucose 107 I & O for Last 24 hours: Intake & Output 08/02/01/18 02/02/18 02/03/18 11:59 11:59 11:59 11:59 Weight 183 lb 8 oz - Constitutional no acute distress - *Routine HEENT Exam Head: Present: normocephalic Eye: Present: EOMI, PERRL ENT: Present: mucous membranes dry - *Routine Neck Exam Present: supple - *Routine Respiratory Exam Present: CTA bilaterally - *Routine Cardiovascular Exam Present: RRR, murmur - *Routine Abdominal Exam Present: soft, tenderness - *Routine Extremities Exam Absent: edema - *Routine Skin Exam Present: intact - *Routine Neurological Exam Present: alert, oriented X3, CN II-XII intact - Routine Psychiatric Exam Present: normal affect Assessment and Plan (1) Gastrointestinal hemorrhage Current visit: Yes Status: Acute Category: Medical Code(s): K92.2 - Gastrointestinal hemorrhage, unspecified (2) DM (diabetes mellitus) Current visit: No Status: Chronic Qualifiers: Diabetes mellitus type: type 2 Diabetes mellitus assisted insulin use: [facility] assisted use Diabetes mellitus complication status: without complication Qualified Code(s): E11.9 - Type 2 diabetes mellitus without complications Category: Medical Code(s): E11.9 - Type 2 diabetes mellitus without complications
--- NOTE | 2018-02-03 09:39 | Progress Note ---
[facility] Anesthesia Checklist - Patient Identification Patient Identification: Arm Band, Verbal (Name & ) - Structural Data Admitted From: Inpatient Planned Operative Procedure/s: EGD Consent for Planned Operative Procedure(s) Verified: Yes Verified Documents: Surgical Consent, History and Physical - NPO Status Verified Time NPO: 00:00 - Additional verifications Anesthesia Reactions: No - Airway Assessment C-Spine Mobility Assessed: Yes TMJ Mobility Assessed: Yes Dentition: Good Dentition - Neurological Assessment Level of Consciousness: Awake Hx Seizures: No Numbness or tingling in extremities: No - Anesthesia Plan Anesthesia Risk discussed: Yes Anesthesia Plan: Verified ASA Class: III (Emergent) Anesthesia Type: [facility] Anesthesia HX I have reviewed the patient's past medical history: Yes Medical History: Reports:: Chronic Obstructive Pulmonary Disease (COPD), Coronary Artery Disease, Diabetes Mellitus Type 2, Hyperlipidemia, Hypertension, Myocardial Infarction, Osteoporosis, Renal Insufficiency, Transient Ischemic Attacks (TIA) Denies:: Cancer, Diabetes Mellitus Type 1, MRSA, Seizures Other Medical History: Reports: Anemia, Arthritis, Cataracts, Osteoporosis, Other (YAMILE, former smoker 8 months ago). Denies: Blood Transfusion Reaction Laterality Cases: Left: Arthroscopy Shoulder, Right: Arthroscopy Knee Other Surgeries: Yes: Cardiac Catheterization, Cholecystectomy, Colonoscopy, EGD Amputation: No Fractures: No *Family Hx:: Cancer, Coronary Artery Disease, Diabetes, Heart Attack, Hyperlipidemia, Hypertension, Stroke
--- NOTE | 2018-02-03 10:28 | Procedure Note ---
- Procedure: Date: 02/03/18 Procedure Performed:: Esophagogastroduodenoscopy with biopsy Indications:: Gastrointestinal hemorrhage Performing Provider:: Deonte Robledo MD Referring Provider:: Dr. Casper Sedation:: Monitored anesthesia care Procedure:: After informed consent was obtained, the patient was taken to the endoscopy suite. Monitored anesthesia care ensued after he was transferred to the left lateral decubitus position. The gastroscope was advanced. Some inflammatory changes distally were noted. The stomach was entered. Patchy/streaking moderate gastritis was noted distally. A very small ulceration of the antrum that was essentially healed was noted. Biopsies were obtained. Also within the antrum and apparent diverticulum versus inverted lesion was noted. The lesion was everted and biopsies were obtained. The lesion did appear to be somewhat inflamed. The pylorus is intubated. The duodenal mucosa appeared very inflamed and somewhat lobulated. An area fairly some lobulation and inflammatory edges in the duodenal bulb was biopsied. No active bleeding was noted. An additional antral biopsy was obtained and the gastroscope was carefully removed. The patient was transferred to recovery. Findings:: Moderate streaking gastritis Fairly severe lobulated duodenitis Antral diverticula versus inverted lesion Specimens:: Tiny (essentially healed) antral ulceration Diverticulum versus inverted lesion of antrum Antral biopsy Duodenal bulb biopsy Recommendations:: Continue proton pump inhibition and Carafate Begin H2 blockade Follow-up pending pathology Consideration of ongoing evaluation of remaining bowel with regard to possible etiology of hemorrhage Complications:: No immediate Estimated blood obtained (mL): 1
--- NOTE | 2018-02-03 12:32 | Discharge Summary ---
General - General Admission date:: 02/02/18 Discharge date: 02/03/18 HPI HPI: This is a 57-year-old gentleman who recently underwent colonoscopy with removal of a small adenomatous polyp. He was seen in follow-up yesterday and was essentially without complaint. After returning home he developed some right- sided abdominal pain and subsequently had significant "dark blood in stool". Some epigastric and right-sided "crampy" pain. Hospital Course Hospital Course: pt did well in hospital with no sig bleeding and was seen by surg -) Gastrointestinal hemorrhage Current visit: Yes Status: Acute Category: Medical Code(s): K92.2 - Gastrointestinal hemorrhage, unspecified Uncertain with regard to source; however, as he does complain of "dark blood in stool" the possibility of an upper source exists and esophagogastroduodenoscopy is warranted. He did recently undergo colonoscopy with removal of a small adenomatous polyp. Some hemorrhoidal cushions noted; however, no thrombosis or active bleeding was seen at that time. The patient did have fairly poor bowel preparation and further evaluation of his colon may be warranted in the very near future. In addition, the possibility of a small bowel source that is not amenable to endoscopy is a consideration. pt had egd which showed fter informed consent was obtained, the patient was taken to the endoscopy suite. Monitored anesthesia care ensued after he was transferred to the left lateral decubitus position. The gastroscope was advanced. Some inflammatory changes distally were noted. The stomach was entered. Patchy/streaking moderate gastritis was noted distally. A very small ulceration of the antrum that was essentially healed was noted. Biopsies were obtained. Also within the antrum and apparent diverticulum versus inverted lesion was noted. The lesion was everted and biopsies were obtained. The lesion did appear to be somewhat inflamed. The pylorus is intubated. The duodenal mucosa appeared very inflamed and somewhat lobulated. An area fairly some lobulation and inflammatory edges in the duodenal bulb was biopsied. No active bleeding was noted. An additional antral biopsy was obtained and the gastroscope was carefully removed. The patient was transferred to recovery. Findings:: Moderate streaking gastritis Fairly severe lobulated duodenitis Antral diverticula versus inverted lesion Specimens:: Tiny (essentially healed) antral ulceration Diverticulum versus inverted lesion of antrum Antral biopsy Duodenal bulb biopsy Recommendations:: Continue proton pump inhibition and Carafate Begin H2 blockade Follow-up pending pathology Consideration Objective Vital signs: Temp Pulse Resp BP Pulse Ox 97.3 F L 50 L 16 135/80 97 02/03/18 11:35 02/03/18 11:35 02/03/18 11:35 02/03/18 11:35 02/03/18 11:35 no acute distress - *Routine HEENT Exam Head: Present: normocephalic Eye: Present: EOMI, PERRL ENT: Present: mucous membranes dry - *Routine Neck Exam Present: supple - *Routine Respiratory Exam Present: CTA bilaterally - *Routine Cardiovascular Exam Present: RRR, murmur - *Routine Abdominal Exam Present: soft, tenderness - *Routine Extremities Exam Present: full ROM - *Routine Skin Exam Present: intact - *Routine Neurological Exam Present: alert, oriented X3, CN II-XII intact - Routine Psychiatric Exam Present: normal affect Results Labs on day of discharge: Labs from last 24 hours 02/03/18 02/03/18 02/03/18 11:20 06:40 05:08 WBC 4.6 L D RBC 3.99 L Hgb 12.6 L Hct 38.6 L MCV 96.6 H MCH 31.6 H MCHC 32.7 RDW 13.7 Plt Count 238 MPV 6.9 L Neut % (Auto) 33.0 L Lymph % (Auto) 56.8 H [place] % (Auto) 5.7 Eos % (Auto) 3.5 Baso % (Auto) 0.9 Neut # (Auto) 1.5 L Lymph # (Auto) 2.6 [place] # (Auto) 0.3 Eos # (Auto) 0.2 Baso # (Auto) 0.0 Total Counted 100 Neutrophils % (Manual) 26 L Lymphocytes % (Manual) 56 H Atypical Lymphs % 2.0 Monocytes % (Manual) 13 H Eosinophils % (Manual) 3 Platelet Estimate Normal RBC Morphology Normal PT INR APTT Sodium Potassium Chloride Carbon Dioxide Anion Gap BUN Creatinine Estimated Creat Clear Estimated GFR Est GFR ( Amer) Glucose POC Glucose 130 H 107 Calcium Total Bilirubin AST ALT Alkaline Phosphatase Total Protein Albumin Globulin Albumin/Globulin Ratio Stool Occult Blood 02/02/18 02/02/18 02/02/18 21:58 21:11 16:05 WBC 6.2 RBC 4.15 L Hgb 13.0 L Hct 39.7 L MCV 95.7 H MCH 31.3 H MCHC 32.7 RDW 13.6 Plt Count 267 MPV 7.4 Neut % (Auto) 43.5 Lymph % (Auto) 46.2 [place] % (Auto) 6.7 Eos % (Auto) 3.1 Baso % (Auto) 0.6 Neut # (Auto) 2.7 Lymph # (Auto) 2.9 [place] # (Auto) 0.4 Eos # (Auto) 0.2 Baso # (Auto) 0.0 Total Counted Neutrophils % (Manual) Lymphocytes % (Manual) Atypical Lymphs % Monocytes % (Manual) Eosinophils % (Manual) Platelet Estimate RBC Morphology PT INR APTT Sodium Potassium Chloride Carbon Dioxide Anion Gap BUN Creatinine Estimated Creat Clear Estimated GFR Est GFR ( Amer) Glucose POC Glucose 121 H Calcium Total Bilirubin AST ALT Alkaline Phosphatase Total Protein Albumin Globulin Albumin/Globulin Ratio Stool Occult Blood Positive A 02/02/18 02/02/18 02/02/18 15:45 15:45 15:45 WBC 7.1 RBC 4.19 L Hgb 13.3 L Hct 40.2 L MCV 95.9 H MCH 31.7 H MCHC 33.1 RDW 13.6 Plt Count 271 MPV 7.0 L Neut % (Auto) 61.5 Lymph % (Auto) 30.7 [place] % (Auto) 5.5 Eos % (Auto) 1.8 Baso % (Auto) 0.6 Neut # (Auto) 4.3 Lymph # (Auto) 2.2 [place] # (Auto) 0.4 Eos # (Auto) 0.1 Baso # (Auto) 0.0 Total Counted Neutrophils % (Manual) Lymphocytes % (Manual) Atypical Lymphs % Monocytes % (Manual) Eosinophils % (Manual) Platelet Estimate RBC Morphology PT 10.2 INR 0.99 APTT 29.9 Sodium 136 Potassium 3.8 Chloride 103 Carbon Dioxide 31 Anion Gap 5.8 BUN 14 Creatinine 1.16 Estimated Creat Clear 85 Estimated GFR 65 Est GFR ( Amer) 79 Glucose 104 POC Glucose Calcium 8.8 Total Bilirubin 0.8 AST 12 L ALT 18 Alkaline Phosphatase 84 Total Protein 7.5 Albumin 3.9 Globulin 3.6 H Albumin/Globulin Ratio 1.1 Stool Occult Blood DS: Diagnosis - Discharge Diagnosis (1) Gastrointestinal hemorrhage Status: Acute (2) DM (diabetes mellitus) Status: Chronic (3) Gastritis and gastroduodenitis with hemorrhage Status: Acute Discharge Plan - Patient Discharge Instructions ACTIVITY: Continue current activity DIET: continue same diet - Follow up Plan Follow up with: Deonte Robledo MD [Staff Physician] - 1 week Disposition: Home, Self-Jail Medications: Home Medications Medication Instructions Recorded Confirmed Type metformin 850 mg tablet 850 mg PO BID 06/17/17 02/02/18 History Amlodipine Besylate [Amlodipine 10 mg PO DAILY 11/02/17 02/02/18 History 10mg Tab] Blood Sugar Diagnostic [Blood 0 units .ROUTE .MEDSUPPLY 11/02/17 02/02/18 History Glucose Test Strip] hydroCHLOROthiazide [HCTZ 12.5mg 12.5 mg PO QAM 11/02/17 02/02/18 History capsule] Hydrocod/Acet 5/325 mg [[place] 1 each PO BID 02/02/18 02/02/18 History 5/325mg tablet] Sucralfate [Sucralfate 1gm 1 g PO BID 02/02/18 02/02/18 History Tab] Prescriptions/Medication Reconciliation: New raNITIdine HCl [Zantac] 150 mg PO BID #60 tablet Pravastatin Sodium [Pravachol 20mg Tablet] 20 mg PO HS tablet Continue albuterol sulfate HFA 90 mcg/actuation aerosol inhaler 2 puff INHALATION Q4- 6H PRN 90 Days #3 units PRN Reason: shortness of breath or wheezing fluticasone 50 mcg/actuation nasal spray,suspension 50 mcg INTRANASAL DAILY PRN 90 Days #47.4 g PRN Reason: allergies lansoprazole 30 mg capsule,delayed release 30 mg PO QHS #90 cap lovastatin 20 mg tablet 20 mg PO QHS #90 tab clopidogrel 75 mg tablet 75 mg PO DAILY #30 tab metformin 850 mg tablet 850 mg PO BID metoprolol tartrate 25 mg tablet 25 mg PO BID #180 tab MDD hypertension gabapentin 800 mg tablet 800 mg PO TID 30 Days #90 tab furosemide 40 mg tablet 40 mg PO DAILY 30 Days #30 tab lisinopril 20 mg tablet 20 mg PO QDAY #90 tab hydroCHLOROthiazide [HCTZ 12.5mg capsule] 12.5 mg PO QAM Blood Sugar Diagnostic [Blood Glucose Test Strip] 0 units .ROUTE .MEDSUPPLY Amlodipine Besylate [Amlodipine 10mg Tab] 10 mg PO DAILY Sucralfate [Sucralfate 1gm Tab] 1 g PO BID Discontinued aspirin 81 mg tablet,delayed release 81 mg PO QDAY #30 tab Hydrocod/Acet 5/325 mg [[place] 5/325mg tablet] 1 each PO BID
[2018-02-03 12:51] VITALS: BP 136/76
== END 2018-02-03 13:14 | disposition home or self-care (01) ==
LOC: 2ND 15:15 → ER 15:15 → 2ND 18:12
PROVIDERS: ADMIT Internal Medicine Adolescent Medicine; ATTEND Emergency Medicine

== ENCOUNTER → 2018-02-11 07:58 | Outpatient (CLI) | payer MEDICAID, SELFPAY ==
[2018-02-11 08:17] LABS: Hematocrit 41.5 % (42.0-52.0); Hemoglobin 13.7 g/dL (14.1-18.0)
== END ==
PROVIDERS: PCP Emergency Medicine; Visit Provider Surgery
DX: D64.9 Anemia, unspecified (principal)
CPT/HCPCS: 36415; 85014; 85018

== ENCOUNTER → 2018-02-15 09:29 | Outpatient (CLI) | payer MEDICAID, SELFPAY ==
--- NOTE | 2018-02-15 09:29 | FL_ITS ---
FL upper GI small bowel HISTORY: ITS.REASON: anemia ORDERING PHYSICIAN: Deonte Robledo MD PATIENT AGE: 57 years Comparison: None FINDINGS: The esophagus, stomach, and duodenum have an unremarkable appearance. There is no evidence of hiatal hernia. No ulcer or mass evident. No mucosal abnormalities apparent. There is normal peristalsis. The duodenal C-loop is nondisplaced. FLUOROSCOPY TIME : 2 minutes and 4 seconds. IMPRESSION: Negative upper GI
== END ==
PROVIDERS: PCP Emergency Medicine; Visit Provider Surgery
DX: D64.9 Anemia, unspecified (principal)
CPT/HCPCS: 74245

== ENCOUNTER → 2018-02-16 13:39 | Outpatient (REF) | payer MEDICAID, SELFPAY ==
[2018-02-16 19:42] LABS: Amphetamine/Metha Screen,Urine Negative ng/mL (<1000); Barbiturates Screen,Urine Negative ng/mL (<200); Benzodiazepines Screen,Urine Negative ng/mL (<200); Cannabinoid Screen,Urine Positive ng/mL (<50); Cocaine Screen,Urine Negative ng/mL (<300); Methadone Screen,Urine Negative ng/mL (<300); Opiate Screen,Urine Negative ng/mL (<300); Phencyclidine Screen,Urine Negative ng/mL (<25)
== END ==
LOC: LAB 13:39
PROVIDERS: Visit Provider Emergency Medicine
DX: Z79.899 Other long term (current) drug therapy (principal)
CPT/HCPCS: 80305

== ENCOUNTER → 2018-02-23 11:55 | Outpatient (POV) | payer MEDICAID, SELFPAY | PROVIDERS: PCP Emergency Medicine; Visit Provider Internal Medicine | DX: Z00.00 Encounter for general adult medical examination without abnormal findings (principal) ==

== ENCOUNTER → 2018-03-24 08:01 | Outpatient (REF) | payer MEDICAID, SELFPAY ==
[2018-03-25 11:03] LABS: Amphetamine/Metha Screen,Urine Negative ng/mL (<1000); Barbiturates Screen,Urine Negative ng/mL (<200); Benzodiazepines Screen,Urine Negative ng/mL (<200); Cannabinoid Screen,Urine Positive ng/mL (<50); Cocaine Screen,Urine Negative ng/mL (<300); Methadone Screen,Urine Negative ng/mL (<300); Opiate Screen,Urine Negative ng/mL (<300); Phencyclidine Screen,Urine Negative ng/mL (<25)
[2018-04-30 20:15] LABS: Opiates NEGATIVE
== END ==
LOC: LAB 08:01
PROVIDERS: PCP Emergency Medicine; Visit Provider Emergency Medicine
DX: Z79.899 Other long term (current) drug therapy (principal)
CPT/HCPCS: 80305; 80361; G0480

== ENCOUNTER → 2018-04-15 08:46 | Outpatient (CLI) | payer MEDICAID, SELFPAY ==
--- NOTE | 2018-04-15 08:56 | MR_ITS ---
MR abdomen wo/w con INDICATION: Follow-up pancreatic mass ITS.REASON: attention to pancreas ORDERING PHYSICIAN: Marcos Casper MD PATIENT AGE: 57 years COMPARISON: 02/18/2017 TECHNIQUE: Axial images are obtained without and with gadolinium enhancement . Sagittal and coronal reformatted images are reviewed as well. All CT scans at the facility use one or more dose reduction, viz: automated exposure control, ma/kV adjustment per patient size (including targeted exams where dose is matched to indication, i.e. head), or iterative reconstruction technique. FINDINGS: There is a 3 x 2.4 cm microcystic mass involving the head of the pancreas. This is similar to the previous exam. This lesion does not demonstrate contrast enhancement. Cannot determine if this is in communication with the pancreatic duct. This does not appear significantly changed compared to the previous exam. Liver, kidneys, spleen, and adrenal glands have an unremarkable appearance. There is minimal ectasia of the infrarenal abdominal aorta. IMPRESSION: No change in the pancreatic head mass composed of multiple small cysts which may represent a branch duct intraductal papillary mucinous neoplasm or serous microcystic cystadenoma, favor the former. Cannot determine if this is in direct continuity with the pancreatic duct due to motion artifact on the MRCP images. ERCP may confirm this finding if clinically warranted.. Main pancreatic does not appear enlarged on the raw data axial images. Suggest continued follow-up to confirm stability
[2018-04-15 09:06] LABS: Anion Gap 10.3 mEq/L (5-15); Blood Urea Nitrogen 23 mg/dL (7-18); Calcium 8.7 mg/dL (8.5-10.1); Carbon Dioxide 32 mmol/L (21.0-32.0); Chloride 104 mmol/L (98-107); Estimated Glomerular Filt Rate 69 ml/min (>60); GFR (African American) 84 ML/MIN (>60); Glucose 117 mg/dL (74-106); Potassium 4.3 mmoL/L (3.5-5.1); Sodium 142 mmol/L (136-145)
--- NOTE | 2018-04-15 10:53 | HMH.ITSHM ---
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 []METFORMIN ASPIRIN LEVASTATIN AMLODIPINE HYDROCHLOROTHIZIDE METOPROLOL CLOPIDOGREL LISINOPRIL FUROSEMIDE LORTAB 5 GABAPENTINE
== END ==
PROVIDERS: Visit Provider Emergency Medicine
DX: E11.9 Type 2 diabetes mellitus without complications (principal); K86.9 Disease of pancreas, unspecified; R10.9 Unspecified abdominal pain
CPT/HCPCS: 36415; 74183; 80048; A9576

== ENCOUNTER → 2018-04-20 13:53 | Outpatient (CLI) | payer MEDICAID, SELFPAY ==
[2018-04-20 15:33] LABS: Amphetamine/Metha Screen,Urine Negative ng/mL (<1000); Barbiturates Screen,Urine Negative ng/mL (<200); Benzodiazepines Screen,Urine Negative ng/mL (<200); Cannabinoid Screen,Urine Positive ng/mL (<50); Cocaine Screen,Urine Negative ng/mL (<300); Methadone Screen,Urine Negative ng/mL (<300); Opiate Screen,Urine Positive ng/mL (<300); Phencyclidine Screen,Urine Negative ng/mL (<25)
== END ==
PROVIDERS: Visit Provider Emergency Medicine
DX: Z79.899 Other long term (current) drug therapy (principal)
CPT/HCPCS: 80305

== ENCOUNTER → 2018-05-19 14:10 | Outpatient (CLI) | payer MEDICAID, SELFPAY ==
[2018-05-19 14:56] LABS: Amphetamine/Metha Screen,Urine Negative ng/mL (<1000); Barbiturates Screen,Urine Negative ng/mL (<200); Benzodiazepines Screen,Urine Negative ng/mL (<200); Cannabinoid Screen,Urine Positive ng/mL (<50); Cocaine Screen,Urine Negative ng/mL (<300); Methadone Screen,Urine Negative ng/mL (<300); Opiate Screen,Urine Positive ng/mL (<300); Phencyclidine Screen,Urine Negative ng/mL (<25)
== END ==
PROVIDERS: Visit Provider Emergency Medicine
DX: Z79.899 Other long term (current) drug therapy (principal)
CPT/HCPCS: 80305

== ENCOUNTER 2018-05-26 10:00 | Outpatient (RCR) | payer MEDICAID, SELFPAY ==
--- NOTE | 2018-05-03 15:38 | HMH.PTOPEV ---
PT Outpatient Evaluation Rehab PT Outpatient Evaluation Start: 05/03/18 15:26 Freq: Status: Active Protocol: Document 05/03/18 15:26 EVELIOCHRISTIE (Rec: 05/03/18 15:38 EVELIOCHRISTIE [id number]) Electronically Signed By Herson Farrell, PT 05/03/18 15:26 Outpatient Therapy Subjective History Subjective History This is the initial OP PT evaluation for Seamus Persaud. Pt rey 57 y/o male referred to PT for c/o cervical pain and subsequent headaches. Pt reports insidious onset ~ 1+ month ago. Pt reports no trauma and reports head aches began ~ 2-3 weeks ago. Chief Complaint Pain Spasms Stiff Symptom Type Ache Throb Sharp Dull Stabbing Shooting Symptoms Relieved By Nothing Symptoms Aggravated By Physical Activity Twisting Lifting Prior Functional Limitations None Current Functional Limitations Reaching Lifting Housework Driving Sleeping Recreation Activity Level of pain today (0-10) 8 Pain scale - at its best (0-10) 4 Pain scale - at its worst (0-10) 8 Cervical Eval Palpation Cervical Muscles R Cervical Paraspinal L Cervical Paraspinal R Suboccipital L Suboccipital R CT Junction L CT Junction R Thoracic Paraspinals L Thoracic Paraspinals Cervical/Thoracic Palpation Findings Tenderness AROM Cervical Spine Extension Active Range of 20 Motion (degrees) Cervical Spine Flexion Active Range of 30 Motion (degrees) Cervical Spine Right Lateral Flexion 20 Active Range of Motion (degrees) Cervical Spine Left Lateral Flexion 20 Active Range of Motion (degrees) Cervical Spine Right Rotation Active 50 Range of Motion (degrees) Cervical Spine Left Rotation Active 50 Range of Motion (degrees) MMT Bilateral Deltoid (C5) 5 Normal Biceps Brachii Strength Grade 5 Normal Wrist Extension Strength Grade 5 Norm
== END 2018-05-26 10:05 | disposition home or self-care (01) ==
LOC: PT 10:00
PROVIDERS: Visit Provider Emergency Medicine
DX: M54.2 Cervicalgia (principal)
CPT/HCPCS: 97010; 97012; 97014; 97035; 97110; 97163; G0283

== ENCOUNTER → 2018-06-18 14:34 | Outpatient (CLI) | payer MEDICAID, SELFPAY ==
[2018-06-18 15:58] LABS: Amphetamine/Metha Screen,Urine Negative ng/mL (<1000); Barbiturates Screen,Urine Negative ng/mL (<200); Benzodiazepines Screen,Urine Negative ng/mL (<200); Cannabinoid Screen,Urine Positive ng/mL (<50); Cocaine Screen,Urine Negative ng/mL (<300); Methadone Screen,Urine Negative ng/mL (<300); Opiate Screen,Urine Positive ng/mL (<300); Phencyclidine Screen,Urine Negative ng/mL (<25)
== END ==
PROVIDERS: Visit Provider Emergency Medicine
DX: Z79.899 Other long term (current) drug therapy (principal)
CPT/HCPCS: 80305

== ENCOUNTER → 2018-08-12 14:59 | Outpatient (CLI) | payer MEDICAID, SELFPAY ==
--- NOTE | 2018-08-12 15:05 | US_ITS ---
US extremity LT limited HISTORY: ITS.REASON: pain and numbness ORDERING PHYSICIAN: Rita Amaral PATIENT AGE: 57 years COMPARISON: None FINDINGS: There is an area homogeneous isoechogenicity of the left lateral by in the area of pain measuring 2.5 x 1.6 cm. This is nonspecific and could be related to lipomatous lesion. CT or MRI without and with contrast suggested for further evaluation. No other significant anomalies are evident. No cystic lesions are apparent. No evidence of abscess. IMPRESSION: Possible lipomatous lesion over the left thigh anteriorly which may be confirmed with either CT or MRI
== END ==
PROVIDERS: PCP Emergency Medicine; Visit Provider Nurse Practitioner Family
DX: M79.605 Pain in left leg (principal); R20.0 Anesthesia of skin
CPT/HCPCS: 76882

== ENCOUNTER → 2018-08-16 18:13 | Outpatient (CLI) | payer MEDICAID, SELFPAY ==
[2018-08-16 19:51] LABS: Amphetamine/Metha Screen,Urine Negative ng/mL (<1000); Barbiturates Screen,Urine Negative ng/mL (<200); Benzodiazepines Screen,Urine Negative ng/mL (<200); Cannabinoid Screen,Urine Positive ng/mL (<50); Cocaine Screen,Urine Negative ng/mL (<300); Methadone Screen,Urine Negative ng/mL (<300); Opiate Screen,Urine Positive ng/mL (<300); Phencyclidine Screen,Urine Negative ng/mL (<25)
== END ==
PROVIDERS: Visit Provider Emergency Medicine
DX: Z79.899 Other long term (current) drug therapy (principal)
CPT/HCPCS: 80305

== ENCOUNTER → 2018-08-25 12:52 | Outpatient (CLI) | payer MEDICAID, SELFPAY ==
[2018-08-25 14:01] LABS: Hematocrit 40.2 % (42.0-52.0); Hemoglobin 12.8 g/dL (14.1-18.0)
== END ==
PROVIDERS: Visit Provider Surgery
DX: K92.1 Melena (principal)
CPT/HCPCS: 36415; 85014; 85018

== ENCOUNTER 2018-08-25 13:30 | Outpatient (RCR) | payer MEDICAID, SELFPAY | END 2018-08-25 13:35 | disposition home or self-care (01) | LOC: OT 13:30 | PROVIDERS: Visit Provider Orthopaedic Surgery Adult Reconstructive Orthopaedic Surgery | DX: M65.4 Radial styloid tenosynovitis [de Quervain] (principal) | CPT/HCPCS: 97014; 97035; 97110; 97140; 97165; G0283 ==

== ENCOUNTER → 2018-09-14 10:56 | Outpatient (POV) | payer MEDICAID, SELFPAY | PROVIDERS: Visit Provider Internal Medicine | DX: Z00.00 Encounter for general adult medical examination without abnormal findings (principal) ==

== ENCOUNTER → 2018-09-21 10:59 | Outpatient (CLI) | payer MEDICAID, SELFPAY ==
--- NOTE | 2018-09-21 11:01 | NM_ITS ---
CARDIOLITE SPECT MYOCARDIAL PERFUSION LEXISCAN, REST AND STRESS: [facility] REVIEW QGS EF AND WALL MOTION EVALUATION: QPS - PERFUSION EVALUATION HISTORY: Chest pain, SOB, Fatigue, HTN, DM, Family history DOSE: 10.50 mCi technetium 99m mibi intravenously at rest followed by 32.6 mCi technetium 99m mibi following the intravenous ministration of 0.4 mg of Lexiscan. Resting blood pressure is 105/58. Stress blood pressure 113/58. FINDINGS: Ejection fraction is calculated to be 51%. Stress images reveal decreased activity in the anterior and apical wall. Rest images reveal improved activity in the anterior wall slightly decreased activity in the apex. Gated images calculated ejection fraction of 51% with normal wall motion IMPRESSION: Evidence of previous apical myocardial infarction with mild ischemia and previous nontransmural myocardial infarction involving the anterior wall with significant ischemia. Normal ejection fraction normal wall motion
--- NOTE | 2018-09-21 11:11 | HMH.ITSHM ---
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 []PANTORPRAZOLE ISOSORBIDE LISINOPRIL METFORMIN HCTZ AMLODIPINE FUROSEMIDE CLOPIDOGREL ASA LOVASTATIN METOPROLOL INHALER
== END ==
PROVIDERS: PCP Emergency Medicine; Visit Provider Internal Medicine
DX: Z01.818 Encounter for other preprocedural examination (principal); I20.9 Angina pectoris, unspecified; I25.10 Atherosclerotic heart disease of native coronary artery without angina pectoris; R06.00 Dyspnea, unspecified; R06.01 Orthopnea; E11.9 Type 2 diabetes mellitus without complications; E78.49 Other hyperlipidemia; I10 Essential (primary) hypertension; K86.9 Disease of pancreas, unspecified; M79.604 Pain in right leg; F17.200 Nicotine dependence, unspecified, uncomplicated; Z79.84 Long term (current) use of oral hypoglycemic drugs
CPT/HCPCS: 78452; 93017; A9502; J2785

== ENCOUNTER → 2018-09-24 10:32 | Outpatient (CLI) | payer MEDICAID, SELFPAY ==
--- NOTE | 2018-09-24 10:49 | CT_ITS ---
CT lower leg LT w con Ordering Physician: Deonte Robledo MD Patient Age: 57 years: Male HISTORY: ITS.REASON: lipoma on left thigh TECHNIQUE: Helical CT scanning performed both thighs following the administration of 100 cc Optiray 350 IV contrast.. . Axial sagittal and coronal reconstructions performed on CT workstation. All CT scans at this facility used one or more dose reduction techniques , viz: automatic exposure control, ma/Kv adjustment per patient's size, (including targeted exam where dose matched to the indication; i.e. head); or iterative reconstruction technique COMPARISON is made to ultrasound left thigh 08/12/2018. FINDINGS A small BB is placed over the palpable area at the lateral posterior aspect of the left thigh. On today's CT we see only focal fatty tissue here beneath the BB with findings most likely reflecting lipoma... . Mild prominence of fatty tissue beneath the BB but difficult to discern a discrete lipoma among this generous subcutaneous adipose but there is a vague suggestion of ovoid area here which was gently matches the ultrasound dimensions and as stated suspect for lipoma and. Roughly estimate this area to measuring up to 2.8 cm AP at less than 10 mm wide and roughly 2.5 cm length... Again it blends with this subcutaneous fat making it difficult to discern margins. Most importantly see no other masses of concern. No abnormal areas of enhancement The underlying muscle appears normal with Symmetrical appearance an no abnormal areas of enhancement. The underlying bone appears normal. . IMPRESSION: A BB is placed over the palpable area at the lateral left thigh. We only note slight prominence of adipose tissue here at subcutaneous tissues overlying the thigh. findings compatible a small lipoma. . It is difficult to discern its margins adjacent adipose on CT but overallDimensions similar to that noted on prior ultrasound . Most importantly see no mass lesions of concern beneath this area . No asymmetry of the underlying muscle groups. No abnormal areas of enhancement.
[2018-09-24 10:54] LABS: Blood Urea Nitrogen 22 mg/dL (7-18); Creatinine,Serum 1.36 mg/dL (0.70-1.30); Estimated Glomerular Filt Rate 54 ml/min (>60); GFR (African American) 66 ML/MIN (>60)
== END ==
PROVIDERS: Visit Provider Surgery
DX: D17.24 Benign lipomatous neoplasm of skin and subcutaneous tissue of left leg (principal)
CPT/HCPCS: 36415; 73701; 82565; 84520; Q9967

== ENCOUNTER → 2018-10-06 12:30 | Outpatient (CLI) | payer MEDICAID, SELFPAY ==
[2018-10-06 13:03] LABS: Basophils % 0.6 % (0.1-2.0); Eosinophils # 0.4 K/mm3 (0.0-0.4); Eosinophils % 5.2 % (0.1-12.0); Hematocrit 39.5 % (42.0-52.0); Hemoglobin 13.2 g/dL (14.1-18.0); Lymphocytes # 1.9 K/mm3 (0.7-4.5); Mean Corpuscular HGB Conc 33.4 g/dL (31.8-35.4); Mean Corpuscular Volume 95.9 fl (80-94); Mean Platelet Volume 6.9 fl (7.4-10.4); Monocytes # 0.5 K/mm3 (0.1-1.0); Monocytes % 6.3 % (1.7-9.3); Neutrophils # 4.7 K/mm3 (1.8-7.8); Neutrophils % 62.9 % (37.0-80.0); Platelet Count 308 K/mm3 (142-424); Red Blood Count 4.12 M/mm3 (4.60-6.20); Red Cell Distribution Width 13.8 % (11.5-17.5); White Blood Count 7.5 K/mm3 (4.8-10.8)
[2018-10-06 13:35] LABS: Anion Gap 14.1 mEq/L (5-15); Blood Urea Nitrogen 24 mg/dL (7-18); Calcium 8.7 mg/dL (8.5-10.1); Carbon Dioxide 27 mmol/L (21.0-32.0); Chloride 104 mmol/L (98-107); Creatinine,Serum 1.42 mg/dL (0.70-1.30); Estimated Glomerular Filt Rate 52 ml/min (>60); GFR (African American) 63 ML/MIN (>60); Glucose 123 mg/dL (74-106); Potassium 4.1 mmoL/L (3.5-5.1); Sodium 141 mmol/L (136-145)
== END ==
PROVIDERS: Visit Provider Surgery
DX: R22.42 Localized swelling, mass and lump, left lower limb (principal)
CPT/HCPCS: 36415; 80048; 85025

== ENCOUNTER → 2018-10-13 14:01 | Outpatient (CLI) | payer MEDICAID, SELFPAY ==
[2018-10-13 16:14] LABS: Amphetamine/Metha Screen,Urine Negative ng/mL (<1000); Barbiturates Screen,Urine Negative ng/mL (<200); Benzodiazepines Screen,Urine Negative ng/mL (<200); Cannabinoid Screen,Urine Positive ng/mL (<50); Cocaine Screen,Urine Negative ng/mL (<300); Methadone Screen,Urine Negative ng/mL (<300); Opiate Screen,Urine Positive ng/mL (<300); Phencyclidine Screen,Urine Negative ng/mL (<25)
== END ==
PROVIDERS: Visit Provider Emergency Medicine
DX: M54.9 Dorsalgia, unspecified (principal); Z79.899 Other long term (current) drug therapy
CPT/HCPCS: 80305

== ENCOUNTER → 2018-11-18 17:31 | Outpatient (CLI) | payer MEDICAID, SELFPAY ==
[2018-11-18 18:26] LABS: Basophils % 0.5 % (0.1-2.0); Eosinophils # 0.1 K/mm3 (0.0-0.4); Eosinophils % 1.4 % (0.1-12.0); Hematocrit 42.9 % (42.0-52.0); Hemoglobin 13.6 g/dL (14.1-18.0); Lymphocytes # 2.3 K/mm3 (0.7-4.5); Lymphocytes % 26.8 % (10-50); Mean Corpuscular HGB Conc 31.6 g/dL (31.8-35.4); Mean Corpuscular Hemoglobin 30.5 pg (27.0-31.2); Mean Corpuscular Volume 96.4 fl (80-94); Mean Platelet Volume 7.5 fl (7.4-10.4); Monocytes # 0.6 K/mm3 (0.1-1.0); Monocytes % 6.5 % (1.7-9.3); Neutrophils # 5.5 K/mm3 (1.8-7.8); Neutrophils % 64.8 % (37.0-80.0); Platelet Count 314 K/mm3 (142-424); Red Blood Count 4.45 M/mm3 (4.60-6.20); Red Cell Distribution Width 13.6 % (11.5-17.5); White Blood Count 8.5 K/mm3 (4.8-10.8)
[2018-11-18 19:02] LABS: Hemoglobin A1C 6.1 % (0.0-7.0)
[2018-11-18 19:55] LABS: Alanine Aminotransferase 61 U/L (12-78); Albumin/Globulin Ratio 1.2 (1.1-1.8); Alkaline Phosphatase 142 U/L (46-116); Aspartate Amino Transferase 19 U/L (15-37); Bilirubin,Total 0.7 mg/dL (0.2-1.0); Blood Urea Nitrogen 21 mg/dL (7-18); Calcium 8.8 mg/dL (8.5-10.1); Carbon Dioxide 26 mmol/L (21.0-32.0); Chloride 105 mmol/L (98-107); Chol/HDL Ratio 4.3 (1-3.5); Cholesterol 166 mg/dL (140-200); Creatinine,Serum 1.41 mg/dL (0.70-1.30); Estimated Glomerular Filt Rate 52 ml/min (>60); GFR (African American) 63 ML/MIN (>60); Globulin 3.3 gm/dl (1.3-3.2); Glucose 91 mg/dL (74-106); HDL Cholesterol 39 mg/dL (27-67); LDL Cholesterol 115 mg/dL (0-130); Sodium 142 mmol/L (136-145); T4 (Thyroxine) 9.8 ug/dl (4.7-13.3); Thyroid Stimulating Hormone 1.04 uIU/ml (0.358-3.740); Total Protein,Serum 7.3 gm/dL (6.4-8.2); Triglycerides 59 mg/dL (30-200); VLDL Cholesterol 12 mg/dL (0-40)
[2018-11-20 08:23] LABS: Creatinine, Urine 183.5 mg/dL (Not Estab.)
[2018-11-20 18:03] LABS: Vitamin D 25 Hydroxy 13.4 ng/mL (30.0-100.0)
== END ==
PROVIDERS: Visit Provider Nurse Practitioner Family
DX: E11.9 Type 2 diabetes mellitus without complications (principal); Z79.84 Long term (current) use of oral hypoglycemic drugs; E55.9 Vitamin D deficiency, unspecified; Z79.899 Other long term (current) drug therapy
CPT/HCPCS: 80053; 80061; 82043; 82570; 82652; 83036; 84436; 84443; 85025

== ENCOUNTER → 2018-11-23 10:56 | Outpatient (CLI) | payer MEDICAID, SELFPAY ==
[2018-11-23 11:58] LABS: Anion Gap 10.4 mEq/L (5-15); Blood Urea Nitrogen 16 mg/dL (7-18); Carbon Dioxide 29 mmol/L (21.0-32.0); Chloride 106 mmol/L (98-107); Creatinine,Serum 1.24 mg/dL (0.70-1.30); Estimated Glomerular Filt Rate 61 ml/min (>60); GFR (African American) 73 ML/MIN (>60); Glucose 145 mg/dL (74-106); Potassium 4.4 mmoL/L (3.5-5.1); Sodium 141 mmol/L (136-145)
== END ==
PROVIDERS: Visit Provider Nurse Practitioner Family
DX: R79.9 Abnormal finding of blood chemistry, unspecified (principal)
CPT/HCPCS: 36415; 80048

== ENCOUNTER → 2018-11-24 08:44 | Outpatient (CLI) | payer MEDICAID, SELFPAY ==
[2018-11-25 18:58] LABS: H. pylori Breath Test Negative (Negative)
== END ==
PROVIDERS: Visit Provider Surgery
DX: K25.7 Chronic gastric ulcer without hemorrhage or perforation (principal)
CPT/HCPCS: 83013

== ENCOUNTER → 2018-12-07 14:26 | Outpatient (CLI) | payer MEDICAID, SELFPAY ==
[2018-12-07 16:19] LABS: Amphetamine/Metha Screen,Urine Negative ng/mL (<1000); Barbiturates Screen,Urine Negative ng/mL (<200); Benzodiazepines Screen,Urine Negative ng/mL (<200); Cannabinoid Screen,Urine Negative ng/mL (<50); Cocaine Screen,Urine Negative ng/mL (<300); Methadone Screen,Urine Negative ng/mL (<300); Opiate Screen,Urine Positive ng/mL (<300); Phencyclidine Screen,Urine Negative ng/mL (<25)
== END ==
PROVIDERS: Visit Provider Emergency Medicine
DX: Z79.899 Other long term (current) drug therapy (principal)
CPT/HCPCS: 80305

== ENCOUNTER → 2019-01-07 17:16 | Outpatient (CLI) | payer MEDICAID, SELFPAY ==
[2019-01-07 19:13] LABS: Amphetamine/Metha Screen,Urine Negative ng/mL (<1000); Barbiturates Screen,Urine Negative ng/mL (<200); Benzodiazepines Screen,Urine Negative ng/mL (<200); Cannabinoid Screen,Urine Positive ng/mL (<50); Cocaine Screen,Urine Negative ng/mL (<300); Methadone Screen,Urine Negative ng/mL (<300); Opiate Screen,Urine Positive ng/mL (<300); Phencyclidine Screen,Urine Negative ng/mL (<25)
== END ==
PROVIDERS: Visit Provider Emergency Medicine
DX: Z79.899 Other long term (current) drug therapy (principal)
CPT/HCPCS: 80305

== ENCOUNTER → 2019-01-21 14:14 | Outpatient (CLI) | payer MEDICAID, SELFPAY ==
--- NOTE | 2019-01-21 14:15 | US_ITS ---
APPROVED REPORT Manager Web Application: Vidhi Upton, RT(R) Indications History of Smoking Risk Factors Hypertension Hyperlipidemia TIA/CVA History History of Smoking Pressures/Indices Right Indices Left Indices Brachial 101.00 mmHg Brachial 96.00 mmHg Low Thigh 91.00 mmHg 0.90 Low Thigh 97.00 mmHg 0.96 Calf 91.00 mmHg 0.90 Calf 100.00 mmHg 0.99 Ankle(PT) 98.00 mmHg 0.97 Ankle(PT) 96.00 mmHg 0.95 Ankle(DP) 93.00 mmHg 0.92 Ankle(DP) 86.00 mmHg 0.85 Digit 78.00 mmHg 0.77 Digit 56.00 mmHg 0.55 Findings RT DENNIS=1.0 LT DENNIS=1.0 RT TBI=0.8 LT TBI=0.6 Normal pulses Normal waveforms Conclusion NORMAL EXAM Electronically signed by : Froilan Grajeda MD 01/25/2019 09:25:22
== END ==
PROVIDERS: PCP Emergency Medicine; Visit Provider Internal Medicine
DX: I73.9 Peripheral vascular disease, unspecified (principal)
CPT/HCPCS: 93923

== ENCOUNTER → 2019-01-24 13:46 | Outpatient (CLI) | payer MEDICAID, SELFPAY ==
--- NOTE | 2019-01-24 13:49 | CT_ITS ---
PROCEDURE: CT LUNG SCREENING CLINICAL INDICATION: H/O NICOTINE DEPENDENCE Thirty-four pack-year smoking history, asymptomatic for lung cancer COMPARISON: CHESTWO CT chest wo con from 01/07/[address] abdomen pelvis wo con from 01/05/2019 TECHNIQUE: The exam was performed on a [employer] Speed [address] scanner using 2.90 mGy CTDI. A low dose helical CT CHEST was performed on a multi-detector scanner. All CT scans at the facility use one or more dose reduction, viz: automated exposure control, ma/kV adjustment per patient size (including targeted exams where dose is matched to indication, i.e. head), or iterative reconstruction technique. The LDCT was performed in a facility that meets the criteria for the screening program. Data regarding this exam was submitted to ACR which is an approved registry. The order for this exam indicates that it came as a result of a lung cancer screening counseling shard decision-making visit that included all the elements required of such a visit including smoking cessation. The radiologist interpreting this exam meets the CMS criteria for the LDCT lung cancer screening program. The exam is reported using the Lung-RADS classification scale and reported to the ACR registry. NOTE: This study was performed for the specific purposes of lung cancer screening and is not an alternative to diagnostic chest CT. RADIATION DOSE: CTDI vol(CT dose Index-volume) = 2.90mG DLP (Dose Length Product) = 96.64 mGcm FINDINGS: There are scattered small mediastinal lymph nodes. Most prominent node is in the AP window at 2 x 1.7 cm not significantly changed. Centrilobular and paraseptal emphysema with biapical bulla. There are too small, 5 mm or less nodules noted in the right upper lobe, right lower lobe along the major fissure which are unchanged. Calcified nodules are present in the right lung base unchanged The in noncalcified 2.5 x 2.3 cm nodule has developed in the left upper lobe with somewhat irregular margins suspicious for neoplasm. There is a coarse calcification along the medial aspect of this nodule. Medial to this in the left hilar region there is an 8 mm nodule which is developed in the interval suspicious for a noted within the major fissure or 2nd pulmonary nodule. No effusions. The 2.5 cm left upper lobe nodule is peripheral OTHER FINDINGS: Coronary artery calcifications IMPRESSION: 2.5 cm suspicious left upper lobe nodule suspicious for neoplasm with a smaller nodule at 8 mm in the left perihilar area which could be due to a 2nd pulmonary nodule or noted within the fissure. This nodule is also suspicious. There are mildly prominent mediastinal nodes. The there may also be some adenopathy in the left hilum. This is somewhat difficult to analyze secondary to lack of IV contrast. Recommend PET-CT for further evaluation to evaluate the dominant nodule in the left upper lobe and also to evaluate the smaller nodule and hilar lymph nodes. Lung rads category 4 B suspicious Recommendations: PET-CT Dictated by: Froilan Grajeda MD 01/29/2019 14:11 Signed by: <Electronically signed by Froilan Grajeda MD in [facility]> 01/29/2019 14:11
== END ==
PROVIDERS: PCP Emergency Medicine; Visit Provider Internal Medicine
DX: Z87.891 Personal history of nicotine dependence (principal); Z12.2 Encounter for screening for malignant neoplasm of respiratory organs

== ENCOUNTER 2019-01-31 10:30 | Outpatient (RCR) | payer MEDICAID, SELFPAY ==
--- NOTE | 2019-01-12 17:28 | HMH.PTOPEV ---
PT Outpatient Evaluation Rehab PT Outpatient Evaluation Start: 01/12/19 16:29 Freq: Status: Active Protocol: Document 01/12/19 16:46 EVELIOCHRISTIE (Rec: 01/12/19 17:27 CHACORTABUCKY [id number]) Electronically Signed By Herson Farrell, PT 01/12/19 16:46 Outpatient Therapy Subjective History Subjective History 58 year old male pt. reports with left sided neck pn. Pt. reports pn. has been ongoing for 6 to 7 months. It is a constant pn. that is made worse with movement especially right rotation and left sidebending. Chief Complaint Pain,Stiff Symptom Type Ache,Throb,Sharp Symptoms Relieved By Nothing Symptoms Aggravated By Bending/Stooping,Physical Activity,Twisting,Lifting Current Functional Limitations Reaching,Lifting,Housework, Driving,Sleeping,Recreation Activity Symptom Description Constant and Continuous Level of pain today (0-10) 8 Pain scale - at its best (0-10) 5 Pain scale - at its worst (0-10) 10 Cervical Eval Palpation Cervical Muscles R Cervical Paraspinal,L Cervical Paraspinal,R SCM,L SCM,R Upper Trapezius,L Upper Trapezius Cervical/Thoracic Palpation Findings Tenderness,Muscle Guarding Posture Head/C-Spine Posture Sitting Position Flexed Head/C-Spine Posture Standing Position Neutral Position Flexibility Deficits Upper Trapezius Muscle Length (R) Mild Tightness,(L) Moderate Tightness Scalene Group Muscle Length (R) Mild Tightness,(L) Moderate Tightness Sternocleidomastoid Muscle Length (R) Mild Tightness,(L) Moderate Tightness AROM Cervical Spine Extension Active Range of 10 Motion (degrees) Cervical Spine Flexion Active Range of 20 Motion (degrees) Cervical Spine Right Lateral Flexion 20 Active Range of Motion (degrees) Cervical Spine Left Lateral Flexion 15 Active Range of Motion (degrees) Cervical Spine Right Rotation Active 40 Range of Motion (degrees) Cervical Spine Left Rotation Active 40 Range of Motion (degrees) MMT Bilateral Deltoid (C5) 5 Normal Biceps Brachii Strength Grade 5 Normal Wrist Extension Strength Grade 5 Normal Triceps Brachii Strength Grade 4 Good Wrist Flexion Strength Grade 5 Normal Extensor Pollicis Longus Strength Grade 5 Normal Finger Abduction Strength Grade 5 Normal Special Test C-Spine F
== END 2019-01-31 10:35 | disposition home or self-care (01) ==
LOC: PT 10:30
PROVIDERS: Visit Provider Emergency Medicine
DX: M54.2 Cervicalgia (principal)
CPT/HCPCS: 97010; 97014; 97110; 97140; 97163; G0283

== ENCOUNTER → 2019-02-04 13:46 | Outpatient (CLI) | payer MEDICAID, SELFPAY ==
[2019-02-04 15:01] LABS: Amphetamine/Metha Screen,Urine Negative ng/mL (<1000); Barbiturates Screen,Urine Negative ng/mL (<200); Benzodiazepines Screen,Urine Negative ng/mL (<200); Cannabinoid Screen,Urine Positive ng/mL (<50); Cocaine Screen,Urine Negative ng/mL (<300); Methadone Screen,Urine Negative ng/mL (<300); Opiate Screen,Urine Positive ng/mL (<300); Phencyclidine Screen,Urine Negative ng/mL (<25)
== END ==
PROVIDERS: Visit Provider Emergency Medicine
DX: M54.9 Dorsalgia, unspecified (principal)
CPT/HCPCS: 80305

== ENCOUNTER → 2019-03-15 08:13 | Outpatient (CLI) | payer MEDICAID, SELFPAY ==
[2019-03-15 08:32] LABS: Basophils # 0.1 K/mm3 (0-0.2); Basophils % 0.7 % (0.1-2.0); Eosinophils # 0.2 K/mm3 (0.0-0.4); Eosinophils % 1.9 % (0.1-12.0); Hematocrit 35.6 % (42.0-52.0); Hemoglobin 10.7 g/dL (14.1-18.0); Lymphocytes # 1.9 K/mm3 (0.7-4.5); Lymphocytes % 24.3 % (10-50); Mean Corpuscular Hemoglobin 30.5 pg (27.0-31.2); Mean Corpuscular Volume 101.7 fl (80-94); Mean Platelet Volume 7.8 fl (7.4-10.4); Monocytes # 0.5 K/mm3 (0.1-1.0); Monocytes % 6.4 % (1.7-9.3); Neutrophils # 5.3 K/mm3 (1.8-7.8); Neutrophils % 66.7 % (37.0-80.0); Platelet Count 399 K/mm3 (142-424); Red Cell Distribution Width 13.9 % (11.5-17.5); White Blood Count 7.9 K/mm3 (4.8-10.8)
--- NOTE | 2019-03-15 08:34 | MR_ITS ---
PROCEDURE: MR HEAD/BRAIN WO/W CON CLINICAL INDICATION: LUNG CANCER If headache, dizziness, blurred vision, stage III lung cancer COMPARISON: No exams were available for comparison TECHNIQUE: Routine multiplanar multi echo sequences are performed without and with gadolinium enhancement. FINDINGS: No midline shift, mass effect, intracranial hemorrhage, or hydrocephalus. No evidence of acute infarction. The cerebellopontine angles, cerebellum, and brainstem are unremarkable. No abnormal enhancement that would indicate metastatic disease. There is normal ribeiro-white matter differentiation. There is some minimal T2 white matter hyperintensity noted in the parietal lobes bilaterally nonspecific and may be due to some minor ischemic gliotic change from microvascular disease. The pituitary, corpus callosum, and optic chiasm have an unremarkable appearance. There is mild cerebellar ectopia of approximately 3 mm. The 4th ventricle has an unremarkable appearance. No mastoid effusion or sinus air-fluid level. There is an old fracture involving the medial wall of the right orbit IMPRESSION: Essentially negative MRI of the brain. No evidence of intracranial metastasis. Dictated by: Froilan Grajeda MD 03/16/2019 11:27 Electronically signed by Froilan Grajeda MD in [place] 03/16/2019 11:27
[2019-03-15 08:51] LABS: Alanine Aminotransferase 16 U/L (12-78); Albumin Level 3.1 gm/dL (3.4-5.0); Albumin/Globulin Ratio 0.7 (1.1-1.8); Alkaline Phosphatase 90 U/L (46-116); Anion Gap 12.1 mEq/L (5-15); Aspartate Amino Transferase 21 U/L (15-37); Bilirubin,Total 0.3 mg/dL (0.2-1.0); Blood Urea Nitrogen 26 mg/dL (7-18); Calcium 8.7 mg/dL (8.5-10.1); Carbon Dioxide 28 mmol/L (21.0-32.0); Chloride 102 mmol/L (98-107); Creatinine,Serum 1.12 mg/dL (0.70-1.30); Estimated Glomerular Filt Rate 68 ml/min (>60); GFR (African American) 82 ML/MIN (>60); Globulin 4.5 gm/dl (1.3-3.2); Glucose 110 mg/dL (74-106); Potassium 4.1 mmoL/L (3.5-5.1); Sodium 138 mmol/L (136-145); Total Protein,Serum 7.6 gm/dL (6.4-8.2)
--- NOTE | 2019-03-15 09:42 | HMH.ITSHM ---
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 []LISINOPRIL HCTZ AMLODIPINE FUROSEMIDE ASPIRIN ISOSORBIDE CLOPIDOGREL METOPROLOL LOVASTATIN CLONZAEPAM GABAPENTIN METFORMIN HYDROCODON
== END ==
PROVIDERS: Visit Provider Internal Medicine Medical Oncology
DX: C34.92 Malignant neoplasm of unspecified part of left bronchus or lung (principal)
CPT/HCPCS: 36415; 70553; 80053; 85025; A9576

== ENCOUNTER → 2019-04-05 13:27 | Outpatient (CLI) | payer MEDICAID, SELFPAY ==
[2019-04-05 14:35] LABS: Amphetamine/Metha Screen,Urine Negative ng/mL (<1000); Barbiturates Screen,Urine Negative ng/mL (<200); Benzodiazepines Screen,Urine Negative ng/mL (<200); Cannabinoid Screen,Urine Positive ng/mL (<50); Cocaine Screen,Urine Negative ng/mL (<300); Methadone Screen,Urine Negative ng/mL (<300); Opiate Screen,Urine Positive ng/mL (<300); Phencyclidine Screen,Urine Negative ng/mL (<25)
== END ==
PROVIDERS: Visit Provider Emergency Medicine
DX: L60.2 Onychogryphosis (principal)
CPT/HCPCS: 80305

== ENCOUNTER 2019-04-14 12:31 | Outpatient (CLI) | payer MEDICAID, SELFPAY ==
[2019-04-14] VITALS (9 sets, daily range): BP systolic 99–123; BP diastolic 53–63; PULSE 78–83; RESP 18; O2SAT 93–97; BMI 34.4
[2019-04-14 12:58] LABS: Basophils % 0.3 % (0.1-2.0); Eosinophils # 0.3 K/mm3 (0.0-0.4); Eosinophils % 3.5 % (0.1-12.0); Hematocrit 32.4 % (42.0-52.0); Hemoglobin 10.5 g/dL (14.1-18.0); Lymphocytes % 13.4 % (10-50); Mean Corpuscular HGB Conc 32.5 g/dL (31.8-35.4); Mean Corpuscular Hemoglobin 31.7 pg (27.0-31.2); Mean Corpuscular Volume 97.4 fl (80-94); Mean Platelet Volume 7.3 fl (7.4-10.4); Monocytes # 0.4 K/mm3 (0.1-1.0); Monocytes % 5.8 % (1.7-9.3); Neutrophils # 5.7 K/mm3 (1.8-7.8); Platelet Count 451 K/mm3 (142-424); Red Blood Count 3.32 M/mm3 (4.60-6.20); Red Cell Distribution Width 12.9 % (11.5-17.5); White Blood Count 7.4 K/mm3 (4.8-10.8)
[2019-04-14 13:06] LABS: Anion Gap 11.6 mEq/L (5-15); Blood Urea Nitrogen 22 mg/dL (7-18); Calcium 9.6 mg/dL (8.5-10.1); Carbon Dioxide 29 mmol/L (21.0-32.0); Chloride 102 mmol/L (98-107); Creatinine Clearance Estimated 88 mL/min (50-200); Creatinine,Serum 1.25 mg/dL (0.70-1.30); Estimated Glomerular Filt Rate 60 ml/min (>60); GFR (African American) 72 ML/MIN (>60); Glucose 106 mg/dL (74-106); Potassium 4.6 mmoL/L (3.5-5.1); Sodium 138 mmol/L (136-145)
== END 2019-04-14 16:10 | disposition home or self-care (01) ==
LOC: INF 12:31
PROVIDERS: Visit Provider Internal Medicine Medical Oncology
DX: Z51.11 Encounter for antineoplastic chemotherapy (principal); C34.12 Malignant neoplasm of upper lobe, left bronchus or lung
CPT/HCPCS: 80048; 85025; 96413; 96415; 96417; J9045; J9267; Q0166

== ENCOUNTER 2019-04-21 11:30 | Outpatient (CLI) | payer MEDICAID, SELFPAY ==
[2019-04-21] VITALS (8 sets, daily range): BP systolic 105–125; BP diastolic 48–71; PULSE 62–81; RESP 18; O2SAT 94–100; BMI 34.6
[2019-04-21 11:47] LABS: Basophils % 0.6 % (0.1-2.0); Eosinophils # 0.2 K/mm3 (0.0-0.4); Eosinophils % 3.1 % (0.1-12.0); Hematocrit 29.4 % (42.0-52.0); Hemoglobin 9.4 g/dL (14.1-18.0); Lymphocytes # 0.7 K/mm3 (0.7-4.5); Lymphocytes % 13.1 % (10-50); Mean Corpuscular HGB Conc 32.1 g/dL (31.8-35.4); Mean Corpuscular Hemoglobin 30.9 pg (27.0-31.2); Mean Corpuscular Volume 96.2 fl (80-94); Mean Platelet Volume 9.4 fl (7.4-10.4); Monocytes # 0.2 K/mm3 (0.1-1.0); Monocytes % 4.7 % (1.7-9.3); Neutrophils % 78.5 % (37.0-80.0); Platelet Count 372 K/mm3 (142-424); Red Blood Count 3.05 M/mm3 (4.60-6.20); Red Cell Distribution Width 12.7 % (11.5-17.5)
[2019-04-21 11:56] LABS: Anion Gap 7.3 mEq/L (5-15); Blood Urea Nitrogen 24 mg/dL (7-18); Carbon Dioxide 30 mmol/L (21.0-32.0); Chloride 103 mmol/L (98-107); Creatinine Clearance Estimated 113 mL/min (50-200); Creatinine,Serum 0.97 mg/dL (0.70-1.30); Estimated Glomerular Filt Rate 80 ml/min (>60); GFR (African American) 97 ML/MIN (>60); Glucose 116 mg/dL (74-106); Potassium 4.3 mmoL/L (3.5-5.1); Sodium 136 mmol/L (136-145)
== END 2019-04-21 14:45 | disposition home or self-care (01) ==
LOC: INF 11:30
PROVIDERS: Visit Provider Internal Medicine Medical Oncology
DX: Z51.11 Encounter for antineoplastic chemotherapy (principal); C34.90 Malignant neoplasm of unspecified part of unspecified bronchus or lung
CPT/HCPCS: 80048; 85025; 96413; 96415; 96417; J9045; J9267; Q0166

== ENCOUNTER → 2019-04-26 11:20 | Outpatient (CLI) | payer MEDICAID, SELFPAY ==
[2019-04-26 11:56] LABS: Basophils % 0.4 % (0.1-2.0); Eosinophils # 0.1 K/mm3 (0.0-0.4); Hematocrit 33.3 % (42.0-52.0); Hemoglobin 10.7 g/dL (14.1-18.0); Lymphocytes # 0.5 K/mm3 (0.7-4.5); Lymphocytes % 8.7 % (10-50); Mean Corpuscular HGB Conc 32.1 g/dL (31.8-35.4); Mean Corpuscular Hemoglobin 30.7 pg (27.0-31.2); Mean Corpuscular Volume 95.5 fl (80-94); Mean Platelet Volume 7.6 fl (7.4-10.4); Monocytes # 0.2 K/mm3 (0.1-1.0); Monocytes % 3.2 % (1.7-9.3); Neutrophils # 4.4 K/mm3 (1.8-7.8); Neutrophils % 85.7 % (37.0-80.0); Platelet Count 381 K/mm3 (142-424); Red Blood Count 3.49 M/mm3 (4.60-6.20); Red Cell Distribution Width 13.4 % (11.5-17.5); White Blood Count 5.2 K/mm3 (4.8-10.8)
[2019-04-26 12:09] LABS: MANUAL DIFFERENTIAL MANUAL DIFFERENTIAL (MANUAL DIFF)
[2019-04-26 13:05] LABS: Lymphocytes % 9 % (10-50); Monocytes % 2 % (2-9); Neutrophils % 89 % (42-76); Platelet Estimate Normal; RBC Morphology Normal; Total Cells Counted 100
[2019-04-26 15:44] LABS: Alanine Aminotransferase 132 U/L (12-78); Albumin Level 3.5 gm/dL (3.4-5.0); Albumin/Globulin Ratio 0.9 (1.1-1.8); Alkaline Phosphatase 220 U/L (46-116); Anion Gap 9.5 mEq/L (5-15); Aspartate Amino Transferase 114 U/L (15-37); Bilirubin,Total 0.7 mg/dL (0.2-1.0); Blood Urea Nitrogen 21 mg/dL (7-18); Calcium 9.4 mg/dL (8.5-10.1); Carbon Dioxide 29 mmol/L (21.0-32.0); Chloride 100 mmol/L (98-107); Creatinine,Serum 1.37 mg/dL (0.70-1.30); Estimated Glomerular Filt Rate 54 ml/min (>60); GFR (African American) 65 ML/MIN (>60); Globulin 3.7 gm/dl (1.3-3.2); Glucose 139 mg/dL (74-106); Potassium 4.5 mmoL/L (3.5-5.1); Sodium 134 mmol/L (136-145); Total Protein,Serum 7.2 gm/dL (6.4-8.2)
== END ==
PROVIDERS: Visit Provider Internal Medicine Medical Oncology
DX: C34.90 Malignant neoplasm of unspecified part of unspecified bronchus or lung (principal)
CPT/HCPCS: 36415; 80053; 85007; 85025

== ENCOUNTER 2019-04-29 11:42 | Outpatient (CLI) | payer MEDICAID, SELFPAY ==
[2019-04-29 12:05] VITALS: BP 113/68; PULSE 62; RESP 18
[2019-04-29 12:35] VITALS: BP 107/63; PULSE 69; RESP 18
[2019-04-29 13:05] VITALS: BP 117/58; PULSE 70; RESP 18
== END 2019-04-29 13:10 | disposition home or self-care (01) ==
LOC: INF 11:42
PROVIDERS: Visit Provider Internal Medicine Medical Oncology
DX: C34.92 Malignant neoplasm of unspecified part of left bronchus or lung (principal); E86.0 Dehydration; R19.7 Diarrhea, unspecified; R94.5 Abnormal results of liver function studies
CPT/HCPCS: 96360; 96375; J2405

== ENCOUNTER 2019-05-02 11:24 | Outpatient (CLI) | payer MEDICAID, SELFPAY ==
[2019-05-02 11:35] VITALS: BP 103/61; PULSE 57; RESP 18
[2019-05-02 12:50] VITALS: BP 91/64; PULSE 82; RESP 18
== END 2019-05-02 12:50 | disposition home or self-care (01) ==
LOC: INF 11:24
PROVIDERS: Visit Provider Internal Medicine Medical Oncology
DX: C34.92 Malignant neoplasm of unspecified part of left bronchus or lung (principal); E86.0 Dehydration; R19.7 Diarrhea, unspecified; R94.5 Abnormal results of liver function studies
CPT/HCPCS: 96360; 96375; J2405

== ENCOUNTER 2019-05-13 11:57 | Outpatient (CLI) | payer MEDICAID, SELFPAY ==
[2019-05-13] VITALS (8 sets, daily range): BP systolic 87–124; BP diastolic 54–65; PULSE 80–88; RESP 18; O2SAT 97–99; BMI 33.3
[2019-05-13 12:17] LABS: Basophils % 0.7 % (0.1-2.0); Eosinophils # 0.1 K/mm3 (0.0-0.4); Eosinophils % 1.8 % (0.1-12.0); Hemoglobin 10.8 g/dL (14.1-18.0); Lymphocytes # 0.4 K/mm3 (0.7-4.5); Lymphocytes % 8.3 % (10-50); Mean Corpuscular HGB Conc 32.6 g/dL (31.8-35.4); Mean Corpuscular Hemoglobin 31.6 pg (27.0-31.2); Mean Corpuscular Volume 96.8 fl (80-94); Mean Platelet Volume 7.7 fl (7.4-10.4); Monocytes # 0.4 K/mm3 (0.1-1.0); Monocytes % 8.4 % (1.7-9.3); Neutrophils # 3.9 K/mm3 (1.8-7.8); Neutrophils % 80.8 % (37.0-80.0); Platelet Count 204 K/mm3 (142-424); Red Blood Count 3.41 M/mm3 (4.60-6.20); White Blood Count 4.8 K/mm3 (4.8-10.8)
[2019-05-13 12:27] LABS: Alanine Aminotransferase 19 U/L (12-78); Albumin Level 3.2 gm/dL (3.4-5.0); Albumin/Globulin Ratio 0.8 (1.1-1.8); Alkaline Phosphatase 81 U/L (46-116); Anion Gap 10.6 mEq/L (5-15); Aspartate Amino Transferase 13 U/L (15-37); Bilirubin,Total 0.5 mg/dL (0.2-1.0); Blood Urea Nitrogen 16 mg/dL (7-18); Calcium 8.9 mg/dL (8.5-10.1); Carbon Dioxide 31 mmol/L (21.0-32.0); Chloride 100 mmol/L (98-107); Creatinine Clearance Estimated 110 mL/min (50-200); Creatinine,Serum 0.96 mg/dL (0.70-1.30); Estimated Glomerular Filt Rate 81 ml/min (>60); GFR (African American) 98 ML/MIN (>60); Globulin 3.8 gm/dl (1.3-3.2); Glucose 130 mg/dL (74-106); Potassium 3.6 mmoL/L (3.5-5.1); Sodium 138 mmol/L (136-145)
== END 2019-05-13 15:34 | disposition home or self-care (01) ==
LOC: INF 11:57
PROVIDERS: PCP Emergency Medicine; Visit Provider Internal Medicine Medical Oncology
DX: C34.90 Malignant neoplasm of unspecified part of unspecified bronchus or lung (principal); Z51.11 Encounter for antineoplastic chemotherapy
CPT/HCPCS: 80053; 85025; 96413; 96415; 96417; J9045; J9267; Q0166

== ENCOUNTER → 2019-05-18 14:42 | Outpatient (CLI) | payer MEDICAID, SELFPAY ==
[2019-05-18 17:17] LABS: Amphetamine/Metha Screen,Urine Negative ng/mL (<1000); Barbiturates Screen,Urine Negative ng/mL (<200); Benzodiazepines Screen,Urine Negative ng/mL (<200); Cannabinoid Screen,Urine Negative ng/mL (<50); Cocaine Screen,Urine Negative ng/mL (<300); Methadone Screen,Urine Negative ng/mL (<300); Opiate Screen,Urine Positive ng/mL (<300); Phencyclidine Screen,Urine Negative ng/mL (<25)
== END ==
PROVIDERS: Visit Provider Emergency Medicine
DX: C34.90 Malignant neoplasm of unspecified part of unspecified bronchus or lung (principal)
CPT/HCPCS: 80305

== ENCOUNTER → 2019-05-25 10:38 | Outpatient (CLI) | payer MEDICAID, SELFPAY ==
--- NOTE | 2019-05-25 10:39 | CA_ITS ---
APPROVED REPORT Features Reporter: MAURY Laterality: Bilateral Indications: dizziness Risk Factors Hypertension: Diabetes, Smoking Doppler Spectral Velocity Analysis ECA (R) 78.10/15.50 cm/s ECA (L) 67.90/19.80 cm/s dICA (R) 45.40/26.70 cm/s dICA (L) 47.80/23.40 cm/s Charu (R) 79.70/42.20 cm/s Charu (L) 53.00/25.20 cm/s pICA (R) 47.80/24.70 cm/s pICA (L) 46.50/20.90 cm/s dCCA (R) 50.90/15.40 cm/s dCCA (L) 57.20/18.70 cm/s pCCA (R) 87.50/16.50 cm/s pCCA (L) 78.10/21.90 cm/s Vert (R) 38.50/20.90 cm/s Vert (L) 40.10/20.30 cm/s ICA/CCA 1.60 ICA/CCA 0.93 Findings Duplex evaluation demonstrates stenosis of the right proximal internal carotid artery <20% with PSV <140 cm/sec, EDV <100 cm/sec, and IC/CC Ratio <4.0.Duplex evaluation demonstrates stenosis of the left proximal internal carotid artery <20% with PSV <140 cm/sec, EDV <100 cm/sec, and IC/CC Ratio <4.0. Conclusion No increased velocities to suggest hemodynamically significant stenosis in either internal carotid artery. Electronically signed by : Froilan Grajeda MD 05/27/2019 17:13:05
== END ==
PROVIDERS: PCP Emergency Medicine; Visit Provider Urology
DX: R42 Dizziness and giddiness (principal)
CPT/HCPCS: 93880

== ENCOUNTER → 2019-05-27 08:42 | Outpatient (CLI) | payer MEDICAID, SELFPAY ==
--- NOTE | 2019-05-27 08:52 | CT_ITS ---
PROCEDURE: CT CHEST WO/W CON CLINCAL INDICATION: LUNG CANCER Follow-up lung cancer status post radiation treatments and chemotherapy COMPARISON: CT CHEST W CON from 04/22/2019 CT ABDOMEN W CON from 05/27/2019 TECHNIQUE: IV Contrast: 75ml Optiray 350 Axial images obtained with sagittal and coronal reformats. All CT scans at the facility use one or more dose reduction, viz: automated exposure control, ma/kV adjustment per patient size (including targeted exams where dose is matched to indication, i.e. head), or iterative reconstruction technique. FINDINGS: Soft tissue mass in the AP window is once again noted and is somewhat less bulky measuring 3.2 x 3 cm previously 4.3 x 4.1 cm. Bullous emphysematous changes are present in the apices no change in the 4 mm noncalcified nodule in the right upper lobe anteriorly. There are calcified granulomas in the right lung base. The previously noted soft tissue masses in the left upper lobe posteriorly and in the superior segment of the left lower lobe are smaller. The left upper lobe mass is 7 mm in transverse dimension previously measuring 15 mm. The mass in the superior segment of the left lower lobe is 15 mm in transverse dimension previously 21 mm. No new nodules are evident.. No effusions. No acute bony anomalies. IMPRESSION: Persistent but decreased size AP window mass and left-sided pulmonary nodules Dictated by: Froilan Grajead MD 05/28/2019 16:20 Electronically signed by Froilan Grajeda MD in [facility] 05/28/2019 16:20
--- NOTE | 2019-05-27 08:52 | CT_ITS ---
PROCEDURE: CT ABDOMEN W CON CLINICAL HISTORY: LUNG CANCER Follow-up lung cancer COMPARISON: ABDPELW/O CT ABD PELVIS W/O CONTRAST from 03/21/[address] abdomen pelvis w con from 11/02/2017 ABDWW MR abdomen wo/w con from 04/15/[address] abdomen pelvis wo con from 01/05/2019 TECHNIQUE: Axial images obtained with sagittal and coronal reformats. All CT scans at the facility use one or more dose reduction, viz: automated exposure control, ma/kV adjustment per patient size (including targeted exams where dose is matched to indication, i.e. head), or iterative reconstruction technique. FINDINGS: There is some mild nonspecific enhancement of the anterior segment of the right hepatic lobe and may be related to some focal fatty sparing.. The spleen, adrenal glands, and kidneys have an unremarkable appearance. There are low-density changes in the head of the pancreas measuring 3.2 x 2.8 cm. There is rounding off of the tip of the uncinate process. This has been described on previous MRI reports as a microcystic mass the in does not appear significantly changed in size dating back to an MRI of 04/15/2018 and to a previous CT scan of 11/02/2017. There is dilatation of the infrarenal abdominal aorta at 2.6 cm. No abdominal or retroperitoneal adenopathy. No acute bony findings. IMPRESSION: 1. Overall stable CT appearance of the abdomen with no convincing evidence of metastatic disease. 2. No change in the hypodense mass of the pancreatic head Dictated by: Froilan Grajeda MD 05/28/2019 16:44 Electronically signed by Froilan Grajeda MD in [facility] 05/28/2019 16:44
[2019-05-27 08:57] LABS: Basophils % 0.7 % (0.1-2.0); Eosinophils # 0.1 K/mm3 (0.0-0.4); Eosinophils % 3.8 % (0.1-12.0); Hematocrit 34.1 % (42.0-52.0); Hemoglobin 10.9 g/dL (14.1-18.0); Lymphocytes # 0.5 K/mm3 (0.7-4.5); Lymphocytes % 16.8 % (10-50); Mean Corpuscular HGB Conc 32.1 g/dL (31.8-35.4); Mean Corpuscular Hemoglobin 32.2 pg (27.0-31.2); Mean Corpuscular Volume 100.3 fl (80-94); Mean Platelet Volume 8.3 fl (7.4-10.4); Monocytes # 0.4 K/mm3 (0.1-1.0); Monocytes % 14.6 % (1.7-9.3); Neutrophils # 1.8 K/mm3 (1.8-7.8); Neutrophils % 64.1 % (37.0-80.0); Platelet Count 281 K/mm3 (142-424); Red Cell Distribution Width 15.8 % (11.5-17.5); White Blood Count 2.8 K/mm3 (4.8-10.8)
[2019-05-27 09:31] LABS: Alanine Aminotransferase 29 U/L (12-78); Albumin Level 3.4 gm/dL (3.4-5.0); Alkaline Phosphatase 71 U/L (46-116); Anion Gap 14.3 mEq/L (5-15); Aspartate Amino Transferase 14 U/L (15-37); Bilirubin,Total 0.3 mg/dL (0.2-1.0); Blood Urea Nitrogen 15 mg/dL (7-18); Calcium 8.8 mg/dL (8.5-10.1); Carbon Dioxide 27 mmol/L (21.0-32.0); Chloride 104 mmol/L (98-107); Creatinine,Serum 1.04 mg/dL (0.70-1.30); Estimated Glomerular Filt Rate 74 ml/min (>60); GFR (African American) 89 ML/MIN (>60); Globulin 3.5 gm/dl (1.3-3.2); Glucose 114 mg/dL (74-106); Potassium 4.3 mmoL/L (3.5-5.1); Sodium 141 mmol/L (136-145); Total Protein,Serum 6.9 gm/dL (6.4-8.2)
== END ==
PROVIDERS: PCP Emergency Medicine; Visit Provider Internal Medicine Medical Oncology
DX: C34.92 Malignant neoplasm of unspecified part of left bronchus or lung (principal)
CPT/HCPCS: 36415; 71270; 74160; 80053; 85025

== ENCOUNTER 2019-06-02 10:03 | Outpatient (CLI) | payer MEDICAID, SELFPAY ==
[2019-06-02 11:10] VITALS: BP 102/57; PULSE 67; RESP 20; TEMP 36.9; O2SAT 98
[2019-06-02 11:25] VITALS: BP 103/52; PULSE 71; RESP 18
[2019-06-02 11:40] VITALS: BP 108/61; PULSE 70; RESP 18
[2019-06-02 11:55] VITALS: BP 106/63; PULSE 68; RESP 18
[2019-06-02 12:10] VITALS: BP 116/64; PULSE 68; RESP 18
== END 2019-06-02 12:15 | disposition home or self-care (01) ==
LOC: INF 10:03
PROVIDERS: Visit Provider Internal Medicine Medical Oncology
DX: Z51.11 Encounter for antineoplastic chemotherapy (principal); C34.92 Malignant neoplasm of unspecified part of left bronchus or lung
CPT/HCPCS: 96413; J9173

== ENCOUNTER → 2019-06-09 08:38 | Outpatient (CLI) | payer MEDICAID, SELFPAY ==
[2019-06-09 09:11] LABS: Basophils % 0.7 % (0.1-2.0); Eosinophils # 0.1 K/mm3 (0.0-0.4); Eosinophils % 2.8 % (0.1-12.0); Hematocrit 33.4 % (42.0-52.0); Hemoglobin 10.3 g/dL (14.1-18.0); Lymphocytes # 0.6 K/mm3 (0.7-4.5); Lymphocytes % 17.9 % (10-50); Mean Corpuscular HGB Conc 30.8 g/dL (31.8-35.4); Mean Corpuscular Hemoglobin 31.2 pg (27.0-31.2); Mean Corpuscular Volume 101.4 fl (80-94); Mean Platelet Volume 7.7 fl (7.4-10.4); Monocytes # 0.3 K/mm3 (0.1-1.0); Monocytes % 10.4 % (1.7-9.3); Neutrophils # 2.1 K/mm3 (1.8-7.8); Neutrophils % 68.1 % (37.0-80.0); Platelet Count 257 K/mm3 (142-424); Red Blood Count 3.29 M/mm3 (4.60-6.20); Red Cell Distribution Width 16.9 % (11.5-17.5); White Blood Count 3.2 K/mm3 (4.8-10.8)
[2019-06-09 11:16] LABS: Alanine Aminotransferase 22 U/L (12-78); Albumin Level 3.3 gm/dL (3.4-5.0); Albumin/Globulin Ratio 1.2 (1.1-1.8); Alkaline Phosphatase 75 U/L (46-116); Aspartate Amino Transferase 11 U/L (15-37); Bilirubin,Total 0.4 mg/dL (0.2-1.0); Blood Urea Nitrogen 28 mg/dL (7-18); Calcium 8.9 mg/dL (8.5-10.1); Carbon Dioxide 29 mmol/L (21.0-32.0); Chloride 107 mmol/L (98-107); Creatinine,Serum 1.12 mg/dL (0.70-1.30); Estimated Glomerular Filt Rate 68 ml/min (>60); GFR (African American) 82 ML/MIN (>60); Globulin 2.7 gm/dl (1.3-3.2); Sodium 142 mmol/L (136-145); Thyroid Stimulating Hormone 1.19 uIU/ml (0.358-3.740)
[2019-06-09 11:22] LABS: Glucose 123 mg/dL (74-106)
[2019-06-10 17:32] LABS: Adrenocorticotropic Hormone 51.7 pg/mL (7.2-63.3)
== END ==
PROVIDERS: Visit Provider Internal Medicine Medical Oncology
DX: C34.32 Malignant neoplasm of lower lobe, left bronchus or lung (principal)
CPT/HCPCS: 36415; 80053; 82024; 82533; 84443; 85025

== ENCOUNTER 2019-06-16 12:21 | Outpatient (CLI) | payer MEDICAID, SELFPAY ==
[2019-06-16 13:20] VITALS: BP 106/61; PULSE 64; RESP 18
[2019-06-16 13:35] VITALS: BP 114/75; PULSE 64; RESP 18
[2019-06-16 13:50] VITALS: BP 110/65; PULSE 66; RESP 18
[2019-06-16 14:05] VITALS: BP 114/61; PULSE 73; RESP 18
[2019-06-16 14:23] VITALS: RESP 18
[2019-06-16 14:30] VITALS: BP 117/67; PULSE 67; RESP 18
== END 2019-06-16 14:30 | disposition home or self-care (01) ==
LOC: INF 12:21
PROVIDERS: Visit Provider Internal Medicine Medical Oncology
DX: Z51.11 Encounter for antineoplastic chemotherapy (principal); C34.92 Malignant neoplasm of unspecified part of left bronchus or lung
CPT/HCPCS: 96413; J9173

== ENCOUNTER → 2019-06-24 13:55 | Outpatient (CLI) | payer MEDICAID, SELFPAY ==
[2019-06-24 15:56] LABS: Amphetamine/Metha Screen,Urine Negative ng/mL (<1000); Barbiturates Screen,Urine Negative ng/mL (<200); Benzodiazepines Screen,Urine Negative ng/mL (<200); Cannabinoid Screen,Urine Positive ng/mL (<50); Cocaine Screen,Urine Negative ng/mL (<300); Methadone Screen,Urine Negative ng/mL (<300); Opiate Screen,Urine Positive ng/mL (<300); Phencyclidine Screen,Urine Negative ng/mL (<25)
== END ==
PROVIDERS: Visit Provider Emergency Medicine
DX: Z79.899 Other long term (current) drug therapy (principal)
CPT/HCPCS: 80305

== ENCOUNTER 2019-06-30 10:41 | Outpatient (CLI) | payer MEDICAID, SELFPAY ==
[2019-06-30 10:42] VITALS: BMI 34.6
[2019-06-30 11:10] LABS: Basophils # 0.1 K/mm3 (0-0.2); Basophils % 1.6 % (0.1-2.0); Eosinophils # 0.1 K/mm3 (0.0-0.4); Eosinophils % 2.4 % (0.1-12.0); Hematocrit 36.5 % (42.0-52.0); Lymphocytes # 0.7 K/mm3 (0.7-4.5); Lymphocytes % 23.1 % (10-50); Mean Corpuscular HGB Conc 32.8 g/dL (31.8-35.4); Mean Corpuscular Hemoglobin 32.6 pg (27.0-31.2); Mean Corpuscular Volume 99.4 fl (80-94); Mean Platelet Volume 8.9 fl (7.4-10.4); Monocytes # 0.3 K/mm3 (0.1-1.0); Monocytes % 9.8 % (1.7-9.3); Neutrophils # 1.8 K/mm3 (1.8-7.8); Neutrophils % 63.1 % (37.0-80.0); Platelet Count 274 K/mm3 (142-424); Red Blood Count 3.67 M/mm3 (4.60-6.20); Red Cell Distribution Width 15.4 % (11.5-17.5); White Blood Count 2.9 K/mm3 (4.8-10.8)
[2019-06-30 11:50] VITALS: BP 109/55; PULSE 73; RESP 18
[2019-06-30 12:05] VITALS: BP 100/59; PULSE 70; RESP 18
[2019-06-30 12:20] VITALS: BP 108/60; PULSE 70; RESP 18
[2019-06-30 12:35] VITALS: BP 100/58; PULSE 71; RESP 18
[2019-06-30 13:02] VITALS: BP 117/69; PULSE 70; RESP 18
== END 2019-06-30 13:02 | disposition home or self-care (01) ==
LOC: INF 10:41
PROVIDERS: PCP Internal Medicine Medical Oncology; Visit Provider Internal Medicine Medical Oncology
DX: Z51.11 Encounter for antineoplastic chemotherapy (principal); C34.92 Malignant neoplasm of unspecified part of left bronchus or lung
CPT/HCPCS: 85025; 96413; J9173

== ENCOUNTER 2019-07-14 10:53 | Outpatient (CLI) | payer MEDICAID, SELFPAY ==
[2019-07-14 10:51] VITALS: BMI 36.1
[2019-07-14 11:09] LABS: Basophils % 1.2 % (0.1-2.0); Eosinophils # 0.1 K/mm3 (0.0-0.4); Eosinophils % 2.9 % (0.1-12.0); Hematocrit 37.3 % (42.0-52.0); Hemoglobin 12.1 g/dL (14.1-18.0); Lymphocytes # 0.9 K/mm3 (0.7-4.5); Lymphocytes % 23.2 % (10-50); Mean Corpuscular HGB Conc 32.6 g/dL (31.8-35.4); Mean Corpuscular Hemoglobin 32.9 pg (27.0-31.2); Mean Corpuscular Volume 100.8 fl (80-94); Mean Platelet Volume 7.7 fl (7.4-10.4); Monocytes # 0.4 K/mm3 (0.1-1.0); Monocytes % 10.8 % (1.7-9.3); Neutrophils # 2.3 K/mm3 (1.8-7.8); Platelet Count 235 K/mm3 (142-424); Red Blood Count 3.69 M/mm3 (4.60-6.20); Red Cell Distribution Width 14.5 % (11.5-17.5); White Blood Count 3.7 K/mm3 (4.8-10.8)
[2019-07-14 11:22] LABS: Alanine Aminotransferase 21 U/L (12-78); Albumin Level 3.8 gm/dL (3.4-5.0); Albumin/Globulin Ratio 1.2 (1.1-1.8); Alkaline Phosphatase 76 U/L (46-116); Anion Gap 10.6 mEq/L (5-15); Aspartate Amino Transferase 13 U/L (15-37); Bilirubin,Total 0.7 mg/dL (0.2-1.0); Blood Urea Nitrogen 25 mg/dL (7-18); Calcium 8.7 mg/dL (8.5-10.1); Carbon Dioxide 32 mmol/L (21.0-32.0); Chloride 105 mmol/L (98-107); Creatinine Clearance Estimated 80 mL/min (50-200); Creatinine,Serum 1.43 mg/dL (0.70-1.30); Estimated Glomerular Filt Rate 51 ml/min (>60); GFR (African American) 62 ML/MIN (>60); Globulin 3.1 gm/dl (1.3-3.2); Glucose 134 mg/dL (74-106); Potassium 3.6 mmoL/L (3.5-5.1); Sodium 144 mmol/L (136-145); Total Protein,Serum 6.9 gm/dL (6.4-8.2)
[2019-07-14 12:30] VITALS: BP 114/66; PULSE 60; RESP 18; TEMP 36
[2019-07-14 12:45] VITALS: BP 107/58; PULSE 52; RESP 18
[2019-07-14 13:00] VITALS: BP 99/62; PULSE 60; RESP 18
[2019-07-14 13:15] VITALS: BP 96/56; PULSE 73; RESP 18
[2019-07-14 13:30] VITALS: BP 109/57; PULSE 67; RESP 18
[2019-07-14 13:40] VITALS: BP 109/57; PULSE 67; RESP 18; TEMP 36.2
== END 2019-07-14 13:40 | disposition home or self-care (01) ==
PROVIDERS: Visit Provider Internal Medicine Medical Oncology
DX: Z51.11 Encounter for antineoplastic chemotherapy (principal); C34.92 Malignant neoplasm of unspecified part of left bronchus or lung
CPT/HCPCS: 80053; 85025; 96413; J9173

== ENCOUNTER → 2019-07-19 13:41 | Outpatient (CLI) | payer MEDICAID, SELFPAY ==
[2019-07-19 14:36] LABS: Anion Gap 14.4 mEq/L (5-15); Blood Urea Nitrogen 20 mg/dL (7-18); Carbon Dioxide 28 mmol/L (21.0-32.0); Chloride 109 mmol/L (98-107); Creatinine,Serum 1.23 mg/dL (0.70-1.30); Estimated Glomerular Filt Rate 61 ml/min (>60); GFR (African American) 74 ML/MIN (>60); Glucose 139 mg/dL (74-106); Potassium 4.4 mmoL/L (3.5-5.1); Sodium 147 mmol/L (137-145)
[2019-07-19 15:56] LABS: Hemoglobin A1C 6.6 % (0.0-7.0)
[2019-07-20 13:33] LABS: Creatinine, Urine 99.1 mg/dL (Not Estab.); Microalbumin, Urine <3.0 ug/mL (Not Estab.)
== END ==
PROVIDERS: Visit Provider Emergency Medicine
DX: E11.9 Type 2 diabetes mellitus without complications (principal); Z79.84 Long term (current) use of oral hypoglycemic drugs
CPT/HCPCS: 80048; 82043; 82570; 83036

== ENCOUNTER 2019-07-26 10:22 | Outpatient (RCR) | payer MEDICAID, SELFPAY | END 2019-07-26 10:25 | disposition home or self-care (01) | LOC: PT 10:22 | PROVIDERS: PCP Emergency Medicine; Visit Provider Family Medicine Sports Medicine | DX: M79.18 Myalgia, other site (principal) | CPT/HCPCS: 97163; 97166 ==

== ENCOUNTER 2019-07-28 09:42 | Outpatient (CLI) | payer MEDICAID, SELFPAY ==
[2019-07-28 09:43] VITALS: BMI 35.7
[2019-07-28 10:08] LABS: Basophils % 0.6 % (0.1-2.0); Eosinophils # 0.2 K/mm3 (0.0-0.4); Eosinophils % 3.4 % (0.1-12.0); Hematocrit 40.3 % (42.0-52.0); Hemoglobin 13.1 g/dL (14.1-18.0); Lymphocytes # 0.7 K/mm3 (0.7-4.5); Lymphocytes % 16.9 % (10-50); Mean Corpuscular HGB Conc 32.6 g/dL (31.8-35.4); Mean Corpuscular Volume 98.3 fl (80-94); Mean Platelet Volume 7.9 fl (7.4-10.4); Monocytes # 0.3 K/mm3 (0.1-1.0); Monocytes % 7.5 % (1.7-9.3); Neutrophils # 3.1 K/mm3 (1.8-7.8); Neutrophils % 71.5 % (37.0-80.0); Platelet Count 268 K/mm3 (142-424); White Blood Count 4.4 K/mm3 (4.8-10.8)
[2019-07-28 10:50] VITALS: BP 118/64; PULSE 61; RESP 20; TEMP 36.4
[2019-07-28 11:05] VITALS: BP 106/69; PULSE 64; RESP 18
[2019-07-28 11:20] VITALS: BP 117/68; PULSE 61; RESP 18
[2019-07-28 11:35] VITALS: BP 108/58; PULSE 59; RESP 18
[2019-07-28 11:50] VITALS: BP 110/57; PULSE 57; RESP 18
[2019-07-28 12:00] VITALS: BP 98/58; PULSE 64; RESP 18
== END 2019-07-28 12:10 | disposition home or self-care (01) ==
LOC: INF 09:42
PROVIDERS: Visit Provider Internal Medicine Medical Oncology
DX: Z51.11 Encounter for antineoplastic chemotherapy (principal); C34.92 Malignant neoplasm of unspecified part of left bronchus or lung
CPT/HCPCS: 85025; 96413; J9173

== ENCOUNTER 2019-08-11 10:47 | Outpatient (CLI) | payer MEDICAID, SELFPAY ==
[2019-08-11 10:48] VITALS: BMI 38.2
[2019-08-11 11:05] LABS: Basophils % 0.6 % (0.1-2.0); Eosinophils # 0.1 K/mm3 (0.0-0.4); Eosinophils % 2.1 % (0.1-12.0); Hematocrit 39.2 % (42.0-52.0); Hemoglobin 13.2 g/dL (14.1-18.0); Lymphocytes # 0.7 K/mm3 (0.7-4.5); Lymphocytes % 14.9 % (10-50); Mean Corpuscular HGB Conc 33.7 g/dL (31.8-35.4); Mean Corpuscular Hemoglobin 32.7 pg (27.0-31.2); Mean Corpuscular Volume 97.1 fl (80-94); Mean Platelet Volume 7.9 fl (7.4-10.4); Monocytes # 0.4 K/mm3 (0.1-1.0); Neutrophils # 3.5 K/mm3 (1.8-7.8); Neutrophils % 73.5 % (37.0-80.0); Platelet Count 283 K/mm3 (142-424); Red Blood Count 4.04 M/mm3 (4.60-6.20); Red Cell Distribution Width 13.8 % (11.5-17.5); White Blood Count 4.7 K/mm3 (4.8-10.8)
[2019-08-11 11:09] LABS: Chloride 98 mmol/L (98-107); Sodium 140 mmol/L (136-145)
[2019-08-11 11:10] LABS: Potassium 3.4 mmoL/L (3.5-5.1)
[2019-08-11 11:12] LABS: Alanine Aminotransferase 26 U/L (12-78); Albumin Level 4.2 g/dl (3.5-5.0); Albumin/Globulin Ratio 1.5 (1.1-1.8); Alkaline Phosphatase 68 U/L (38-126); Anion Gap 10.4 mEq/L (5-15); Aspartate Amino Transferase 33 U/L (17-59); Bilirubin,Total 0.5 mg/dl (0.2-1.3); Blood Urea Nitrogen 17 mg/dl (9-20); Carbon Dioxide 35 mmol/L (22.0-30.0); Creatinine Clearance Estimated 63 mL/min (50-200); Estimated Glomerular Filt Rate 69 ml/min (>60); GFR (African American) 84 ML/MIN (>60); Globulin 2.8 g/dL (1.3-3.2)
[2019-08-11 11:13] LABS: Calcium 9.7 mg/dl (8.4-10.2); Glucose 222 mg/dl (74-100)
[2019-08-11 11:41] LABS: Thyroid Stimulating Hormone 0.39 uIU/mL (0.465-4.68)
[2019-08-11 12:43] VITALS: BP 107/65; PULSE 80; RESP 18; TEMP 36.4
[2019-08-11 13:00] VITALS: BP 131/75; PULSE 88; RESP 18
[2019-08-11 13:15] VITALS: BP 106/77; PULSE 83; RESP 18
[2019-08-11 13:30] VITALS: BP 119/71; PULSE 81; RESP 18
[2019-08-11 14:03] VITALS: BP 124/74; PULSE 79; RESP 18; TEMP 36.6
[2019-08-12 16:17] LABS: Adrenocorticotropic Hormone 32.3 pg/mL (7.2-63.3)
== END 2019-08-11 14:03 | disposition home or self-care (01) ==
LOC: INF 10:47
PROVIDERS: Visit Provider Internal Medicine Medical Oncology
DX: Z51.11 Encounter for antineoplastic chemotherapy (principal); C34.92 Malignant neoplasm of unspecified part of left bronchus or lung
CPT/HCPCS: 80053; 82024; 82533; 84443; 85025; 96413; J9173

== ENCOUNTER 2019-08-25 09:54 | Outpatient (CLI) | payer MEDICAID, SELFPAY ==
[2019-08-25 09:55] VITALS: BMI 39.4
[2019-08-25 10:10] LABS: Basophils % 0.8 % (0.1-2.0); Eosinophils # 0.2 K/mm3 (0.0-0.4); Eosinophils % 2.9 % (0.1-12.0); Hematocrit 41.7 % (42.0-52.0); Hemoglobin 13.5 g/dL (14.1-18.0); Lymphocytes # 0.8 K/mm3 (0.7-4.5); Lymphocytes % 16.3 % (10-50); Mean Corpuscular HGB Conc 32.3 g/dL (31.8-35.4); Mean Corpuscular Hemoglobin 32.4 pg (27.0-31.2); Mean Corpuscular Volume 100.2 fl (80-94); Mean Platelet Volume 7.2 fl (7.4-10.4); Monocytes # 0.5 K/mm3 (0.1-1.0); Monocytes % 10.4 % (1.7-9.3); Neutrophils # 3.6 K/mm3 (1.8-7.8); Neutrophils % 69.6 % (37.0-80.0); Platelet Count 304 K/mm3 (142-424); Red Blood Count 4.16 M/mm3 (4.60-6.20); Red Cell Distribution Width 13.3 % (11.5-17.5); White Blood Count 5.1 K/mm3 (4.8-10.8)
[2019-08-25 10:40] VITALS: BP 124/68; PULSE 59; RESP 18; TEMP 36.3
[2019-08-25 10:55] VITALS: BP 124/70; PULSE 63; RESP 18
[2019-08-25 11:10] VITALS: BP 121/68; PULSE 63; RESP 18
[2019-08-25 11:25] VITALS: BP 133/67; PULSE 55; RESP 18
[2019-08-25 11:55] VITALS: BP 126/66; PULSE 59; RESP 18
== END 2019-08-25 11:55 | disposition home or self-care (01) ==
LOC: INF 09:54
PROVIDERS: Visit Provider Internal Medicine Medical Oncology
DX: Z51.11 Encounter for antineoplastic chemotherapy (principal); C34.32 Malignant neoplasm of lower lobe, left bronchus or lung
CPT/HCPCS: 85025; 96413; J9173

== ENCOUNTER → 2019-08-31 12:40 | Outpatient (CLI) | payer MEDICAID, SELFPAY ==
--- NOTE | 2019-08-31 12:46 | CT_ITS ---
PROCEDURE: CT CHEST W CON CLINCAL INDICATION: LUNG CANCER Follow-up lung cancer COMPARISON: CT CHEST WO/W CON from 05/27/2019 TECHNIQUE: IV Contrast: 75ml Optiray 350 Axial images obtained with sagittal and coronal reformats. All CT scans at the facility use one or more dose reduction, viz: automated exposure control, ma/kV adjustment per patient size (including targeted exams where dose is matched to indication, i.e. head), or iterative reconstruction technique. FINDINGS: HEART AND MEDIASTINAL STRUCTURES: The the AP window soft tissue mass is once again noted and appears slightly less bulky compared to the previous exam. Measurements are difficult to obtain due to the ill definition but measured at 1.2 cm AP and 3 cm transverse previously 3 cm AP and 3.8 cm transverse. LUNGS AND PLEURAL SPACES: Bullous changes are once again noted in the upper lobes. Calcified granulomas are present on the right in the right lower lobe. There is a stable fissural nodule on the right. The there is consolidation within the inferior aspect of the left upper lobe in the superior segment of the left lower lobe with some patchy consolidation in the lingula consistent with left-sided pneumonia. Previously noted nodular left upper lobe and left infrahilar region are somewhat obscured by the surrounding consolidation but may be slightly smaller. There are some atelectatic changes in the lung bases. The no effusions. BONY STRUCTURES: No acute bony abnormalities apparent. UPPER ABDOMEN: Unremarkable. ADDITIONAL FINDINGS: No other significant abnormalities. IMPRESSION: 1. The soft tissue mass in the mediastinum appears somewhat less apparent 2. There is pneumonia in the left upper and left lower lobe somewhat obscuring the previously noted nodules which may be slightly smaller. This is however difficult to ascertain and continued follow-up is suggested. Dictated by: Froilan Grajeda MD 09/01/2019 14:04 Electronically signed by Froilan Grajeda MD in [place] 09/01/2019 14:04
[2019-08-31 13:08] LABS: Basophils % 0.8 % (0.1-2.0); Eosinophils # 0.1 K/mm3 (0.0-0.4); Eosinophils % 1.6 % (0.1-12.0); Hematocrit 37.5 % (42.0-52.0); Hemoglobin 12.8 g/dL (14.1-18.0); Lymphocytes # 0.8 K/mm3 (0.7-4.5); Lymphocytes % 15.2 % (10-50); Mean Corpuscular HGB Conc 34.2 g/dL (31.8-35.4); Mean Corpuscular Hemoglobin 33.1 pg (27.0-31.2); Mean Corpuscular Volume 96.7 fl (80-94); Mean Platelet Volume 7.7 fl (7.4-10.4); Monocytes # 0.4 K/mm3 (0.1-1.0); Monocytes % 7.1 % (1.7-9.3); Neutrophils # 3.8 K/mm3 (1.8-7.8); Neutrophils % 75.2 % (37.0-80.0); Platelet Count 344 K/mm3 (142-424); Red Blood Count 3.88 M/mm3 (4.60-6.20); White Blood Count 5.1 K/mm3 (4.8-10.8)
[2019-08-31 13:43] LABS: Alanine Aminotransferase 15 U/L (12-78); Albumin Level 4.2 g/dl (3.5-5.0); Albumin/Globulin Ratio 1.7 (1.1-1.8); Alkaline Phosphatase 66 U/L (38-126); Anion Gap 10.3 mEq/L (5-15); Aspartate Amino Transferase 24 U/L (17-59); Bilirubin,Total 0.5 mg/dl (0.2-1.3); Blood Urea Nitrogen 13 mg/dl (9-20); Calcium 9.8 mg/dl (8.4-10.2); Carbon Dioxide 27 mmol/L (22.0-30.0); Chloride 104 mmol/L (98-107); Estimated Glomerular Filt Rate 87 ml/min (>60); GFR (African American) 106 ML/MIN (>60); Globulin 2.5 g/dL (1.3-3.2); Glucose 114 mg/dl (74-100); Potassium 4.3 mmoL/L (3.5-5.1); Sodium 137 mmol/L (136-145); Total Protein,Serum 6.7 g/dl (6.3-8.2)
[2019-08-31 14:14] LABS: Thyroid Stimulating Hormone 0.56 uIU/mL (0.465-4.68)
== END ==
PROVIDERS: PCP Emergency Medicine; Visit Provider Internal Medicine Medical Oncology
DX: C34.90 Malignant neoplasm of unspecified part of unspecified bronchus or lung (principal)
CPT/HCPCS: 36415; 71260; 80053; 82533; 84443; 85025; Q9967

== ENCOUNTER → 2019-09-05 07:29 | Outpatient (CLI) | payer MEDICAID, SELFPAY ==
[2019-09-08 13:09] LABS: Adrenocorticotropic Hormone 31.9 pg/mL (7.2-63.3)
== END ==
PROVIDERS: Visit Provider Internal Medicine Medical Oncology
DX: C34.32 Malignant neoplasm of lower lobe, left bronchus or lung (principal)
CPT/HCPCS: 36415; 82024

== ENCOUNTER 2019-09-08 10:57 | Outpatient (CLI) | payer MEDICAID, SELFPAY ==
[2019-09-08 10:58] VITALS: BP 113/70; PULSE 56; RESP 18; TEMP 36.9; O2SAT 99
[2019-09-08 11:15] VITALS: BP 114/68; PULSE 73; RESP 20
[2019-09-08 11:30] VITALS: BP 133/52; PULSE 72; RESP 20
[2019-09-08 11:45] VITALS: BP 122/59; PULSE 73; RESP 18
[2019-09-08 12:12] VITALS: BP 109/56; PULSE 70; RESP 18
== END 2019-09-08 12:12 | disposition home or self-care (01) ==
LOC: INF 10:57
PROVIDERS: Visit Provider Internal Medicine Medical Oncology
DX: Z51.11 Encounter for antineoplastic chemotherapy (principal); C34.32 Malignant neoplasm of lower lobe, left bronchus or lung
CPT/HCPCS: 96413; J9173

== ENCOUNTER 2019-09-18 17:21 | Emergency (ER) | payer MEDICAID, SELFPAY ==
[2019-09-18 17:29] VITALS: BP 140/78; PULSE 89; RESP 16; TEMP 36.6; O2SAT 98; BMI 33.3
--- NOTE | 2019-09-18 17:38 | CT_ITS ---
PROCEDURE: CT LUMBAR SPINE WO CON CLINICAL HISTORY: low back pain, lung cancer COMPARISON: WO CT LUMBAR SPINE W/O CONTRAST from 04/03/2015 TECHNIQUE: Axial images obtained with sagittal and coronal reformats. All CT scans at the facility use one or more dose reduction, viz: automated exposure control, ma/kV adjustment per patient size (including targeted exams where dose is matched to indication, i.e. head), or iterative reconstruction technique. FINDINGS: There is normal curvature and alignment. All lumbar vertebrae appear intact. There is no evidence of lytic or blastic lesion. The spinal canal is normal in size throughout. The L1-2 and L2-3 disc appear normal. There is moderate diffuse bulging of the annulus fibrosus L3-4. There is mild diffuse bulging of the annulus fibrosus at the L4-5 level. There is no focal disc protrusion seen at any level. The facet joints appear normal throughout. The SI joints appear normal. Again noted is a minor cortical irregularity of the inferior aspect of the right SI joint on the sacral side. There is minimal scattered arteriosclerotic calcification of the abdominal aorta but there is no aneurysm. IMPRESSION: Mild diffuse disc bulges L3-4 and L4-5, no other significant abnormality seen. Dictated by: Dr. Yonny Martines MD 09/18/2019 19:[address] Yonny Martines MD in [place] 09/18/2019 19:12
--- NOTE | 2019-09-18 17:40 | HMH.EDGENADL ---
ED Disposition Clinical Impression: Lumbar disc disease Strain of lumbar region Qualifiers: Encounter type: initial encounter Qualified Code(s): S39.012A - Strain of muscle, fascia and tendon of lower back, initial encounter Disposition: Home, Self-Care Condition on Discharge: Good Instructions: DI for Low Back Pain Additional Instructions: You have been evaluated for low back pain, diagnosed with lumbar disc disease. Please take Tylenol and ibuprofen for pain. Try to stay moving. Use strengthening and stretching exercises. Follow-up with your primary care doctor in 1 to 2 days. Return to the emergency department if you have new or worsening symptoms, numbness or tingling in your genital area, fevers, chills, other concerns. Referrals: Provider,Referral, [Primary Care Provider] - Time of Disposition: 19:03 - Critical Care Critical Care Time: No Attestation: On 09/18/19, the high probability of a clinically significant, sudden or life threatening deterioration of the following system(s) required my full and direct attention, intervention and personal management. The time I documented below is in addition to time spent performing reported procedures but includes the following listed in this critical care notation. Medical Decision Making - [place] Inquiry Pt receiving controlled substance: No Vital Signs: 09/18/19 17:29 Temperature 97.8 F Temperature Source Oral Pulse Rate [Left Radial] 89 Respiratory Rate 16 Blood Pressure [Right Arm] 140/78 Blood Pressure Mean [Right Arm] 98 Blood Pressure Position [Right Arm] Sitting 02 Sat by Pulse Oximetry 98 Oxygen Delivery Method Room Air - Lab Data Lab Results 09/18/19 17:45: Urine Color Yellow, Urine Appearance Clear, Urine pH 6.0, Ur Specific Doon 1.025, Urine Protein Negative, Urine Glucose (UA) Trace, Urine Ketones Negative, Urine Blood Negative, Urine Nitrate Negative, Urine Bilirubin Negative, Urine Urobilinogen 0.2, Ur Leukocyte Esterase Negative, Amorphous Sediment Trace Orders (Tests/Meds): ED MEDICATIONS Discontinued Medications Generic Name Dose Route Start Last Admin Trade Name Freq PRN Reason Stop Dose Admin Ketorolac Tromethamine 10 mg 09/18/19 17:39 09/18/19 17:52 Toradol 10mg Tablet PO 09/18/19 17:40 Not Given ONCE ONE ORDERS Category Date Time Status CT lumbar spine wo con Stat Cat Scan 09/18/19 17:38 Taken - CT Data CT Scan: L-Spine Time Received: 19:[address] Reviewed: Yes: I have reviewed the patient's CT results, I have viewed the radiologist's interpretation Findings Narrative: Minimal generalized disc bulging and degenerative facet change at L3, L4. No focal disc protrusion. Medical Decision Narrative: In summary this is a 58-year-old male with history of lung cancer presenting to the emergency department with sudden onset of low back pain. Patient is in no distress on arrival to the emergency department. Vital signs are stable. History of cancer is concerning for a metastatic lesion or pathologic fracture. He does not have concerning features of cauda equina. Concern for urinary tract infection or kidney stone, but cannot exclude. Plan to obtain urinalysis and CT of the lumbar spine. Given 60mg IM toradol. Urinalysis shows no signs of infection or red blood cells. CT scan of the lumbar spine shows mild generalized disc bulge. Degenerative changes at L3, L4. This is most likely the cause of patient's pain. On reassessment he was able to ambulate without difficulty. Recommended to take Tylenol and ibuprofen for pain. Recommended to try physical therapy and follow-up with his primary care doctor. Given return precautions for new or worsening symptoms, numbness or tingling in his genital area. General Adult HPI - General Chief complaint: Back Pain/Injury Stated complaint: back pain (no accidnet Time Seen by Provider: 09/18/19 17:41 Mode of Arrival: Ambulatory Source of Informati
[2019-09-18 17:49] LABS: Microscopic, Urine URINE MICROSCOPIC (MICROSCOPIC)
[2019-09-18 17:50] LABS: Appearance,Urine CLEAR (Clear); Bilirubin,Urine Negative (Negative); Blood, Urine Negative (Negative); Color,Urine YELLOW (Yellow); Glucose,Urine (UA) TRACE (Negative); Ketones,Urine Negative (Negative); Leukocyte Esterase,Urine Negative (Negative); Nitrate,Urine Negative (Negative); Protein,Urine Negative (Negative); Specific Gravity, Urine 1.025 (1.005-1.030); Urobilinogen,Urine 0.2 EU/dl (0.2)
[2019-09-18 17:51] LABS: Amorphous Sediment,Urine Trace /lpf
[2019-09-18 19:05] VITALS: BP 135/74; PULSE 89; RESP 18; TEMP 36.7; O2SAT 99
== END 2019-09-18 19:08 | disposition home or self-care (01) ==
PROVIDERS: Emergency Provider Emergency Medicine
DX: S39.012A Strain of muscle, fascia and tendon of lower back, initial encounter (principal); M54.16 Radiculopathy, lumbar region; I25.2 Old myocardial infarction; M81.0 Age-related osteoporosis without current pathological fracture; E11.9 Type 2 diabetes mellitus without complications; I10 Essential (primary) hypertension; E78.5 Hyperlipidemia, unspecified; J44.9 Chronic obstructive pulmonary disease, unspecified; Z87.891 Personal history of nicotine dependence; Z79.899 Other long term (current) drug therapy
CPT/HCPCS: 72131; 81001; 99282

== ENCOUNTER 2019-09-22 09:41 | Outpatient (CLI) | payer MEDICAID, SELFPAY ==
[2019-09-22 09:42] VITALS: BMI 36.8
[2019-09-22 10:02] LABS: Basophils % 0.5 % (0.1-2.0); Eosinophils # 0.1 K/mm3 (0.0-0.4); Eosinophils % 2.6 % (0.1-12.0); Hematocrit 38.6 % (42.0-52.0); Hemoglobin 12.5 g/dL (14.1-18.0); Lymphocytes # 0.8 K/mm3 (0.7-4.5); Lymphocytes % 19.6 % (10-50); Mean Corpuscular HGB Conc 32.5 g/dL (31.8-35.4); Mean Corpuscular Hemoglobin 31.5 pg (27.0-31.2); Mean Corpuscular Volume 97.1 fl (80-94); Mean Platelet Volume 7.3 fl (7.4-10.4); Monocytes # 0.4 K/mm3 (0.1-1.0); Monocytes % 8.4 % (1.7-9.3); Neutrophils # 2.9 K/mm3 (1.8-7.8); Neutrophils % 68.9 % (37.0-80.0); Platelet Count 249 K/mm3 (142-424); Red Blood Count 3.98 M/mm3 (4.60-6.20); Red Cell Distribution Width 12.9 % (11.5-17.5); White Blood Count 4.2 K/mm3 (4.8-10.8)
[2019-09-22 10:45] VITALS: BP 117/69; PULSE 71; RESP 18; TEMP 36.6; O2SAT 95
[2019-09-22 11:15] VITALS: BP 107/64; PULSE 69; RESP 18
[2019-09-22 12:00] VITALS: BP 111/63; PULSE 69; RESP 18; O2SAT 96
== END 2019-09-22 12:00 | disposition home or self-care (01) ==
LOC: INF 09:41
PROVIDERS: Visit Provider Internal Medicine Medical Oncology
DX: Z51.11 Encounter for antineoplastic chemotherapy (principal); C34.32 Malignant neoplasm of lower lobe, left bronchus or lung
CPT/HCPCS: 85025; 96413; J9173

== ENCOUNTER 2019-10-02 10:10 | Emergency (ER) | payer MEDICAID, SELFPAY ==
[2019-10-02 10:12] VITALS: BP 126/73; PULSE 78; RESP 16; TEMP 37.1; O2SAT 97; BMI 34.9
--- NOTE | 2019-10-02 11:23 | HMH.EDBACK ---
ED Disposition Clinical Impression: Pain, low back, Lumbar radiculopathy, Sciatica, Sacroiliac joint dysfunction of right side Disposition: Home, Self-Care Condition on Discharge: Good Instructions: DI for Low Back Pain Additional Instructions: Please follow-up with primary care symptoms fail to improve. Prescriptions: Triamcinolone Acetonide 15 gm TP TID #15 cream..g. Transmission Status: Pending to [facility] Tizanidine HCl [Zanaflex 4mg tab] 4 mg PO TID PRN 12 Days #45 tab PRN Reason: Muscle Spasm Transmission Status: Pending to [facility] Referrals: Lyndon Medina [Primary Care Provider] - - Critical Care Critical Care Time: No Attestation: On 10/02/19, the high probability of a clinically significant, sudden or life threatening deterioration of the following system(s) required my full and direct attention, intervention and personal management. The time I documented below is in addition to time spent performing reported procedures but includes the following listed in this critical care notation. Medical Decision Making - Medical Records Medical records reviewed: Yes: I reviewed the patient's medical records. - [place] Inquiry Pt receiving controlled substance: No Vital Signs: 10/02/19 10:12 Temperature 98.7 F Temperature Source Oral Pulse Rate [Left Radial] 78 Respiratory Rate 16 Blood Pressure [Right Arm] 126/73 Blood Pressure Mean [Right Arm] 90 Blood Pressure Position [Right Arm] Sitting 02 Sat by Pulse Oximetry 97 Oxygen Delivery Method Room Air - Lab Data Lab results reviewed: Yes: I reviewed the patient's lab results. Orders (Tests/Meds): ED MEDICATIONS Discontinued Medications Generic Name Dose Route Start Last Admin Trade Name Freq PRN Reason Stop Dose Admin Lidocaine HCl 10 ml 10/02/19 10:48 10/02/19 10:49 Lidocaine 1% 10ml Mdv IM 10/02/19 10:49 10 ml ONCE ONE Administration Orphenadrine Citrate 60 mg 10/02/19 10:49 10/02/19 11:11 Norflex 60mg/2ml Vial IM 10/02/19 10:50 60 mg ONCE ONE Administration Triamcinolone Acetonide 80 mg 10/02/19 10:48 10/02/19 10:50 Kenalog 40mg/Ml Vial IM 10/02/19 10:49 80 mg ONCE ONE Administration - Reevaluation(s) Time: 11:26 (Patient did improve after ultrasound-guided back injection and a Norflex shot.) Back Pain HPI - General Chief Complaint: Back Pain/Injury Stated Complaint: back pain Time Seen by Provider: 10/02/19 11:23 Mode of Arrival: Ambulatory Source of Information: Patient Limitations: No Limitations Description of Symptoms (Recalled from ER Triage Doc. by RN): to ed per pvt car with c/o rt side lower back pain progressively worse over the last few days states pain radiates down rt leg. pt denies being incontinent of bowel or bladder. pt with hx of lung ca last chemo thurs - History of Present Illness HPI Narrative: 58-year-old gentleman presents with acute on chronic back pain. He states that he woke up this morning and his right side of his back was really hurting he was difficult for him to ambulate and he had some pain going down his right leg to the back of his behind his knee to almost to his calf. He describes pain as sharp. He states the pain is 7 out of 10. Patient did deny any bowel or bladder incontinence. Patient also denies any foot drop. Patient states that alleviating factors include laying flat and standing up straight exacerbating factors includes any sort of flexion at the waist and also ambulation. Patient denies any other symptoms. Patient denies any fever. Patient denies any sort of infectious process. - Related Data Home Medications Medication Instructions Recorded Confirmed Dicyclomine HCl [Bentyl 10mg 10 mg PO BID 04/29/19 09/22/19 capsule] Nystatin 1 applic TOPICAL BID 04/29/19 09/22/19 Triamcinolone Acetonide [Kenalog 1 applic TOPICAL BID 04/29/19 09/22/19 0.1% cream 80gm tube] Metoprolol Tartrate [L
[2019-10-02 11:32] VITALS: BP 133/76; PULSE 78; RESP 16; TEMP 36.6; O2SAT 98
== END 2019-10-02 11:34 | disposition home or self-care (01) ==
PROVIDERS: Emergency Provider Family Medicine; PCP Pediatrics
DX: M53.3 Sacrococcygeal disorders, not elsewhere classified (principal); M54.31 Sciatica, right side; E11.9 Type 2 diabetes mellitus without complications; Z79.84 Long term (current) use of oral hypoglycemic drugs; I10 Essential (primary) hypertension; E78.5 Hyperlipidemia, unspecified; I25.10 Atherosclerotic heart disease of native coronary artery without angina pectoris; J44.9 Chronic obstructive pulmonary disease, unspecified; Z87.891 Personal history of nicotine dependence; Z95.0 Presence of cardiac pacemaker; Z90.49 Acquired absence of other specified parts of digestive tract; Z79.899 Other long term (current) drug therapy
CPT/HCPCS: 20552; 96372; 99281

== ENCOUNTER 2019-10-07 09:33 | Outpatient (CLI) | payer MEDICAID, SELFPAY ==
[2019-10-07 09:36] VITALS: BMI 37.3
[2019-10-07 10:01] LABS: Basophils % 0.5 % (0.1-2.0); Eosinophils # 0.2 K/mm3 (0.0-0.4); Eosinophils % 2.1 % (0.1-12.0); Hematocrit 39.5 % (42.0-52.0); Hemoglobin 13.1 g/dL (14.1-18.0); Lymphocytes % 12.4 % (10-50); Mean Corpuscular HGB Conc 33.1 g/dL (31.8-35.4); Mean Corpuscular Hemoglobin 32.4 pg (27.0-31.2); Mean Corpuscular Volume 98.1 fl (80-94); Mean Platelet Volume 7.7 fl (7.4-10.4); Monocytes # 0.6 K/mm3 (0.1-1.0); Monocytes % 7.8 % (1.7-9.3); Neutrophils # 6.4 K/mm3 (1.8-7.8); Neutrophils % 77.2 % (37.0-80.0); Platelet Count 266 K/mm3 (142-424); Red Blood Count 4.02 M/mm3 (4.60-6.20); White Blood Count 8.3 K/mm3 (4.8-10.8)
[2019-10-07 10:09] LABS: Alanine Aminotransferase 32 U/L (12-78); Albumin Level 4.4 g/dl (3.5-5.0); Albumin/Globulin Ratio 1.5 (1.1-1.8); Alkaline Phosphatase 75 U/L (38-126); Anion Gap 13.2 mEq/L (5-15); Aspartate Amino Transferase 22 U/L (17-59); Bilirubin,Total 0.6 mg/dl (0.2-1.3); Blood Urea Nitrogen 32 mg/dl (9-20); Calcium 9.3 mg/dl (8.4-10.2); Carbon Dioxide 28 mmol/L (22.0-30.0); Chloride 98 mmol/L (98-107); Creatinine Clearance Estimated 99 mL/min (50-200); Estimated Glomerular Filt Rate 63 ml/min (>60); GFR (African American) 76 ML/MIN (>60); Globulin 2.9 g/dL (1.3-3.2); Glucose 328 mg/dl (74-100); Potassium 4.2 mmoL/L (3.5-5.1); Sodium 135 mmol/L (136-145); Total Protein,Serum 7.3 g/dl (6.3-8.2)
[2019-10-07 10:40] LABS: Thyroid Stimulating Hormone 0.99 uIU/mL (0.465-4.68)
[2019-10-07 11:05] VITALS: BP 138/69; PULSE 63; RESP 18; TEMP 36.9
[2019-10-07 12:15] VITALS: BP 134/107; PULSE 73; RESP 18
[2019-10-07 12:30] VITALS: BP 149/74; PULSE 74; RESP 18
[2019-10-07 12:45] VITALS: BP 133/69; PULSE 79; RESP 18
== END 2019-10-07 12:45 | disposition home or self-care (01) ==
LOC: INF 09:33
PROVIDERS: Visit Provider Internal Medicine Medical Oncology
DX: Z51.11 Encounter for antineoplastic chemotherapy (principal); C34.32 Malignant neoplasm of lower lobe, left bronchus or lung
CPT/HCPCS: 80053; 82533; 84443; 85025; 96413; J9173

== ENCOUNTER 2019-10-18 11:03 | Emergency (ER) | payer MEDICAID, SELFPAY ==
[2019-10-18 11:05] VITALS: BP 113/78; PULSE 65; RESP 18; TEMP 37; O2SAT 100; BMI 37.3
[2019-10-18 11:55] LABS: Chloride 102 mmol/L (98-107)
[2019-10-18 11:56] LABS: Basophils % 0.6 % (0.1-2.0); Eosinophils # 0.1 K/mm3 (0.0-0.4); Eosinophils % 2.7 % (0.1-12.0); Hematocrit 38.7 % (42.0-52.0); Hemoglobin 12.3 g/dL (14.1-18.0); Lymphocytes # 0.8 K/mm3 (0.7-4.5); Mean Corpuscular HGB Conc 31.7 g/dL (31.8-35.4); Mean Corpuscular Hemoglobin 30.7 pg (27.0-31.2); Mean Corpuscular Volume 96.7 fl (80-94); Mean Platelet Volume 6.9 fl (7.4-10.4); Monocytes # 0.3 K/mm3 (0.1-1.0); Neutrophils # 3.2 K/mm3 (1.8-7.8); Neutrophils % 72.7 % (37.0-80.0); Platelet Count 296 K/mm3 (142-424); Potassium 4.1 mmoL/L (3.5-5.1); Red Cell Distribution Width 13.9 % (11.5-17.5); Sodium 136 mmol/L (136-145); White Blood Count 4.4 K/mm3 (4.8-10.8)
[2019-10-18 11:58] LABS: Alanine Aminotransferase 37 U/L (12-78); Amylase 116 U/L (30-110); Anion Gap 10.1 mEq/L (5-15); Aspartate Amino Transferase 41 U/L (17-59); Blood Urea Nitrogen 18 mg/dl (9-20); Carbon Dioxide 28 mmol/L (22.0-30.0); Creatinine Clearance Estimated 119 mL/min (50-200); Estimated Glomerular Filt Rate 77 ml/min (>60); GFR (African American) 94 ML/MIN (>60)
[2019-10-18 11:59] LABS: Albumin Level 4.4 g/dl (3.5-5.0); Albumin/Globulin Ratio 1.5 (1.1-1.8); Alkaline Phosphatase 69 U/L (38-126); Calcium 9.5 mg/dl (8.4-10.2); Globulin 2.9 g/dL (1.3-3.2); Glucose 114 mg/dl (74-100); Lipase 59 U/L (23-300); Total Protein,Serum 7.3 g/dl (6.3-8.2)
--- NOTE | 2019-10-18 12:16 | PC.NURSE ---
When going administer pt IV pain medication (toradol) pt yelled and cursed at the nurse and stated your not trying to help me and that he is allergic to toradol and stated that allergy was on his chart Educated pt that he did not tell the nurse that he had an allergy to toradol when verifying allergies, stated I don't need your smart mouth to tell me what Im allergic to, its in the same category as his others medications he is allergic to. Pt states he is leaving the hospital and refused to sign AMA form.
--- NOTE | 2019-10-18 12:42 | HMH.EDGENADL ---
ED Disposition Clinical Impression: Cervical radicular pain, Lumbar disc disease, Pain, low back, Sacroiliac joint dysfunction of right side, Lung cancer, Uncontrolled diabetes mellitus, Non compliance with medical treatment, Neuropathy, Obesity (BMI 30.0-34.9), HTN (hypertension), Tobacco dependence syndrome Disposition: Home, Self-Care Condition on Discharge: Good Instructions: DI for Acute Pain -- Adult Referrals: Lyndon Medina [Primary Care Provider] - - Critical Care Critical Care Time: No Attestation: On 10/18/19, the high probability of a clinically significant, sudden or life threatening deterioration of the following system(s) required my full and direct attention, intervention and personal management. The time I documented below is in addition to time spent performing reported procedures but includes the following listed in this critical care notation. Medical Decision Making - Medical Records Medical records reviewed: Yes: I reviewed the patient's medical records. - Salvador Inquiry Pt receiving controlled substance: No Vital Signs: 10/18/19 11:05 Temperature 98.6 F Temperature Source Oral Pulse Rate [Right] 65 Respiratory Rate 18 Blood Pressure [Right Arm] 113/78 Blood Pressure Mean [Right Arm] 89 02 Sat by Pulse Oximetry 100 - Lab Data Lab results reviewed: Yes: I reviewed the patient's lab results. Lab Results 10/18/19 11:43: WBC 4.4 L, RBC 4.00 L, Hgb 12.3 L, Hct 38.7 L, MCV 96.7 H, MCH 30.7, MCHC 31.7 L, RDW 13.9, Plt Count 296, MPV 6.9 L, Neut % (Auto) 72.7, Lymph % (Auto) 18.0, [place] % (Auto) 6.0, Eos % (Auto) 2.7, Baso % (Auto) 0.6, Neut # (Auto) 3.2, Lymph # (Auto) 0.8, [place] # (Auto) 0.3, Eos # (Auto) 0.1, Baso # (Auto) 0.0 10/18/19 11:43: Sodium 136, Potassium 4.1, Chloride 102, Carbon Dioxide 28, Anion Gap 10.1, BUN 18, Creatinine 1.00, Estimated Creat Clear 119, Estimated GFR 77, Est GFR ( Amer) 94, Glucose 114 H, Calcium 9.5, Total Bilirubin 1.0, AST 41, ALT 37, Alkaline Phosphatase 69, Total Protein 7.3, Albumin 4.4, Globulin 2.9, Albumin/Globulin Ratio 1.5, Amylase 116 H, Lipase 59 Result diagrams: 10/18/19 11:43 10/18/19 11:43 Orders (Tests/Meds): ED MEDICATIONS Discontinued Medications Generic Name Dose Route Start Last Admin Trade Name Freq PRN Reason Stop Dose Admin Ketorolac Tromethamine 30 mg 10/18/19 12:14 10/18/19 12:30 Toradol 30mg/Ml Vial IV 10/18/19 12:15 Not Given ONCE ONE - Opioid Risk-Male Family hx alcohol abuse: Y Family hx illegal drugs: Y Family hx rx drug abuse: N Personal hx alcohol abuse: N Personal hx illegal drugs: Y Personal hx rx drug abuse: N Age: 45+ Hx of sexual abuse: N Mental health issues-ADD,OCD,Bipolar, etc: N Hx of depression: N Male Risk Score: 9 General Adult HPI - General Chief complaint: PAIN Stated complaint: L side pain from cancer Time Seen by Provider: 10/18/19 12:00 Mode of Arrival: Ambulatory Source of Information: Patient Limitations: No Limitations Description of Symptoms (Recalled from ER Triage Doc. by RN): c/o left sided belly pain that he states is from his ling CA, denies NVD. - History of Present Illness Onset (ago): day(s) Location: back, abdomen Radiation: non-radiation Severity: severe Severity scale (1-10): 7 Quality: stabbing, aching Consistency: constant Relieving factors: cold therapy Exacerbating factors: movement Associated symptoms: denies other symptoms Treatments prior to arrival: none - Related Data Home Medications Medication Instructions Recorded Confirmed Dicyclomine HCl [Bentyl 10mg 10 mg PO BID 04/29/19 10/18/19 capsule] Metoprolol Tartrate [Lopressor See Rx Instructions .ROUTE .COMPLEX 07/28/19 10/18/19 25mg tablet] clonazepam 0.5 mg tablet 0.5 mg PO BID tab 10/06/19 10/18/19 gabapentin 800 mg tablet 800 mg PO TID 10/06/19 10/18/19 Previous Rx's Medication Instructions Recorded metformin 850 mg tablet 850 mg PO BID #180 tab 12
[2019-10-18 12:47] VITALS: O2SAT 96
[2019-10-18 13:03] VITALS: BP 113/78; PULSE 70; RESP 16; TEMP 37; O2SAT 98
== END 2019-10-18 13:05 | disposition home or self-care (01) ==
PROVIDERS: Emergency Provider Family Medicine; PCP Pediatrics
DX: M54.12 Radiculopathy, cervical region (principal); M53.3 Sacrococcygeal disorders, not elsewhere classified; C34.90 Malignant neoplasm of unspecified part of unspecified bronchus or lung; I10 Essential (primary) hypertension; E11.9 Type 2 diabetes mellitus without complications; I25.2 Old myocardial infarction; J44.9 Chronic obstructive pulmonary disease, unspecified; E78.5 Hyperlipidemia, unspecified; Z88.6 Allergy status to analgesic agent; Z87.891 Personal history of nicotine dependence; Z90.49 Acquired absence of other specified parts of digestive tract
CPT/HCPCS: 20552; 27096; 36415; 80053; 82150; 83690; 85025; 99281; G0260

== ENCOUNTER 2019-10-20 10:05 | Outpatient (CLI) | payer MEDICAID, SELFPAY ==
[2019-10-20 11:15] VITALS: BP 110/77; PULSE 77; RESP 18; O2SAT 98
[2019-10-20 11:55] VITALS: BP 110/75; PULSE 77; RESP 18
[2019-10-20 12:30] VITALS: BP 115/77; PULSE 78; RESP 18
== END 2019-10-20 12:30 | disposition home or self-care (01) ==
LOC: INF 13:45
PROVIDERS: Visit Provider Internal Medicine Medical Oncology
DX: C34.92 Malignant neoplasm of unspecified part of left bronchus or lung (principal)
CPT/HCPCS: 96413; J9173

== ENCOUNTER → 2019-10-25 11:56 | Outpatient (CLI) | payer MEDICAID, SELFPAY ==
--- NOTE | 2019-10-25 11:57 | CA_ITS ---
APPROVED REPORT EXAM: Comprehensive 2D, Doppler, and color-flow Echocardiogram Pin Chaser: Marissa Flaherty CRT Ht: 5 ft 5 in Wt: 224lbs BSA: 2.08 BP: 122/82 mmHg Indications: CP, HTN, DM, SOB, LUNG CA HX, CAD, OLD [place] 2D Dimensions LVOT 2.10 cm (M/F) 1.5-2.5 M-Mode Dimensions RVDd 3.11 cm (0.9-2.6) LVDd 4.99 cm (3.5-5.7) LVDs 3.11 cm (3.5-5.7) IVSd 1.37 cm (0.6-1.1) PWd 0.70 cm (0.6-1.1) EF (Teich) 67.50% FS 37.70% EDV (Teich) 117.70 mL ESV (Teich) 38.20 mL LV Diastology E/A Ratio 1.60 Mitral Valve MV A Velocity 44.00 (40-130 cm/s) Left Ventricle Left atrium is mildly enlarged, left ventricle is normal size, mild concentric left ventricular hypertrophy, visually estimated ejection fraction approximately 50%, there is moderate hypokinesis involving the inferior basal wall. Endocardial surfaces are poorly visualized. Diastolic parameters are inconclusive. Right Ventricle Right atrium and right ventricle mildly enlarged with normal contractility. Aortic Valve Aortic valve is minimally thickened and fibrosed, there is no aortic stenosis, there is mild aortic insufficiency. Mitral Valve Mitral valve is grossly normal, there is mild mitral regurgitation. Tricuspid Valve Tricuspid valve is grossly normal, there is mild tricuspid regurgitation, tricuspid regurgitation jet velocity is inadequate for calculation of the right ventricular systolic pressure. Pulmonic Valve Pulmonic valve is poorly visualized. Great Vessels Aortic root is normal size. Pericardium No significant pericardial effusion noted. Conclusion 1. Mild biatrial abdomen, normal left ventricular size, mild concentric left ventricular hypertrophy, visually estimated ejection fraction 50% with segmental wall motion abnormality described above, diastolic parameters are inconclusive. 2. Mildly enlarged right ventricle with normal contractility. 3. Mild aortic, mild mitral and tricuspid regurgitation. 4. No significant pericardial effusion noted. Electronically signed by : James Raza, 10/25/2019 18:35:24
--- NOTE | 2019-10-25 11:57 | CA_ITS ---
APPROVED REPORT Exam: Pharmacologic Technologist: Mary Castro Ht: 5 ft 5 in Wt: 224 lbs BSA: 2.08 m2 HR: 55 bpm BP: 117/62 mmHg Indications: Chest pain Medical History Medications: Furosemide (LASIX),,,,, Isosorbide,,,,, Metoprolol,,,,, Lovastatin,,,,, Gabapentin,,,,, HCTZ,,,,, ClonAZEPAM,,,,, Lansoprazole,,,,, CloPIdogrel,,,,, Tizanidine,,,,, DicyCLOMINE,,,,, Vitamin D2,,,,, Stress Test Details Test: LEXISCAN HR Resting HR: 52 bpm Max Heart Rate (APMHR): 164 bpm Max HR Achieved: 96 bpm Target HR (85% APMHR): 139 bpm % of APMHR: 58 Recovery HR: 75 bpm BP Resting BP: 117.0/62.0 mmHg Max BP: 121.0/66.0 mmHg Recovery BP: 114.0/67.0 mmHg ECG Clinical Reason for Termination: Completed Protocol Exercise duration: 04:00 min Highest Stage Achieved: Exercise capacity: 1.0 METs Stress ECG Conclusion Non-diagnostic lexiscan stress test. Patient received the infusion per protocol without chest pain, ST segment changes or arrhythmias. See the nuclear report for further information. Test Summary REST . . . . . . . Resting REST 03:10 . . 52 . 117/ 62 . . Stage 1 . . . . . . . Myoview Injected Stage 1 01:00 . . 82 . . . . Stage 2 01:00 . . 96 . 111/ 64 . . Stage 3 01:00 . . 90 . 121/ 66 . . Stage 4 01:00 . . 82 . 117/ 67 . Stop exercise at 04:00 RECOVERY 01:00 . . 80 . . . . RECOVERY 02:00 . . 81 . . . . RECOVERY 03:00 . . 75 . 114/ 67 . . RECOVERY 03:16 . . 75 . 114/ 67 . . Electronically signed by : James Raza, 10/25/2019 18:36:41
--- NOTE | 2019-10-25 11:57 | NM_ITS ---
APPROVED REPORT Exam: Nuclear Stress Test Indication: Angina, Chest pain, SOB, Syncope, Fatigue, HTN, DM, High cholesterol, Family history Patient Location: Outpatient Stress Tech: Mary Castro CT Tech:Zaira Rocha, ARRT, RT (R)(N) Ht: 5 ft 5 in Wt: 224 lbs HR: 55 bpm BP: 117/62 mmHg BSA: 2.08 m2 BMI: 37.2 History: Angina, Chest pain, SOB, Syncope, Fatigue, HTN, DM, High cholesterol, Family history Procedure: Patient received a 0.4 mg of intravenous Lexiscan, resting heart rate 55 bpm, resting blood pressure 117/62 mmHg, with Lexiscan maximum heart rate achived was 96 bpm which is Less than 85 % of the maximum predicted heart rate and blood pressure was 111/64 mmHg. With Lexiscan, patient denied any complaint of chest pain. Electrocardiogram Resting electrocardiogram showed sinus rhythm, with Lexiscan there is less than 1.[address] segment depression noted from the baseline EKG. The EKG portion of the Lexiscan Myoview is nondiagnostic. Cardiac Stress and Resting SPECT Images: Cardiac Stress and Resting SPECT images were obtained using technetium 99m Myoview 32.4 mCi stress and 10.65 mCi at rest. Gated SPECT for analysis of segmental wall motion and calculation of the ejection fraction also done. Cardiac stress and resting SPECT images show decrease tracer activity in the inferior posterior wall which improves on the resting images suggestive of reversible ischemia. In addition there is reversible ischemia involving the apex, computer derived ejection fraction is 57% with no regional wall motion abnormality, right ventricle is normal size and contractility. Conclusion: 1. The EKG portion of the Lexiscan Myoview is nondiagnostic. 2. Scintigraphic evidence of mild reversible ischemia involving the inferior posterior and apical wall, computer derived ejection fraction 57% with no regional wall motion abnormality, right ventricle is normal size and contractility. 3. Abnormal Lexiscan Myoview study. Electronically signed by : James Raza, 10/25/2019 18:38:58
--- NOTE | 2019-10-25 13:05 | HMH.ITSHM ---
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 []METFORMIN LOVASTATIN LISINOPRIL LANSOPRAZOLE ISOSORBIDE HCTZ METOPROLOL GABAPENTIN FUROSEMIDE VITAMIN D2 CLOPIDOGREL CLONAZEPAM ZANAFLEX BENTYL
== END ==
PROVIDERS: PCP Pediatrics; Visit Provider Physician Assistant
DX: I20.9 Angina pectoris, unspecified (principal); R06.02 Shortness of breath; C34.90 Malignant neoplasm of unspecified part of unspecified bronchus or lung; E78.49 Other hyperlipidemia; I10 Essential (primary) hypertension
CPT/HCPCS: 78452; 93017; 93306; A9502; J2785

== ENCOUNTER 2019-11-04 09:38 | Outpatient (CLI) | payer MEDICAID, SELFPAY ==
[2019-11-04 09:39] VITALS: BMI 36.9
[2019-11-04 09:55] LABS: Basophils % 0.6 % (0.1-2.0); Eosinophils # 0.1 K/mm3 (0.0-0.4); Eosinophils % 1.8 % (0.1-12.0); Hematocrit 39.9 % (42.0-52.0); Hemoglobin 13.6 g/dL (14.1-18.0); Lymphocytes # 0.8 K/mm3 (0.7-4.5); Lymphocytes % 14.6 % (10-50); Mean Corpuscular Hemoglobin 32.5 pg (27.0-31.2); Mean Corpuscular Volume 95.6 fl (80-94); Mean Platelet Volume 7.3 fl (7.4-10.4); Monocytes # 0.3 K/mm3 (0.1-1.0); Monocytes % 4.9 % (1.7-9.3); Neutrophils # 4.1 K/mm3 (1.8-7.8); Neutrophils % 78.2 % (37.0-80.0); Platelet Count 246 K/mm3 (142-424); Red Blood Count 4.17 M/mm3 (4.60-6.20); White Blood Count 5.2 K/mm3 (4.8-10.8)
[2019-11-04 10:04] LABS: Alanine Aminotransferase 30 U/L (12-78); Albumin Level 4.8 g/dl (3.5-5.0); Albumin/Globulin Ratio 1.5 (1.1-1.8); Alkaline Phosphatase 68 U/L (38-126); Anion Gap 11.7 mEq/L (5-15); Aspartate Amino Transferase 29 U/L (17-59); Bilirubin,Total 1.1 mg/dl (0.2-1.3); Blood Urea Nitrogen 16 mg/dl (9-20); Calcium 9.8 mg/dl (8.4-10.2); Carbon Dioxide 25 mmol/L (22.0-30.0); Chloride 105 mmol/L (98-107); Creatinine Clearance Estimated 107 mL/min (50-200); Estimated Glomerular Filt Rate 69 ml/min (>60); GFR (African American) 84 ML/MIN (>60); Globulin 3.2 g/dL (1.3-3.2); Glucose 134 mg/dl (74-100); Potassium 3.7 mmoL/L (3.5-5.1); Sodium 138 mmol/L (136-145)
[2019-11-04 11:35] VITALS: BP 127/87; PULSE 81; RESP 18; TEMP 36.9; O2SAT 94
[2019-11-04 12:00] VITALS: BP 123/62; PULSE 74; RESP 18
[2019-11-04 12:58] VITALS: BP 108/68; PULSE 74; RESP 18; O2SAT 95
== END 2019-11-04 12:58 | disposition home or self-care (01) ==
LOC: INF 09:38
PROVIDERS: Visit Provider Internal Medicine Medical Oncology
DX: C34.92 Malignant neoplasm of unspecified part of left bronchus or lung (principal); Z51.11 Encounter for antineoplastic chemotherapy
CPT/HCPCS: 80053; 85025; 96413; 96415; J9173

== ENCOUNTER 2019-11-09 08:30 | Day surgery (SDC) | payer MEDICAID, SELFPAY ==
[2019-11-09] VITALS (11 sets, daily range): BP systolic 89–126; BP diastolic 47–81; PULSE 70–88; RESP 14–20; TEMP 36.5–36.6; O2SAT 90–95; BMI 36.9
--- NOTE | 2019-11-09 | IR_ITS ---
APPROVED REPORT Patient Location: Outpatient Checker Stocker: CLAIRE Austin RT (R) PROCEDURES Left heart catheterization Left ventriculogram Selective coronary angiogram INDICATION High risk abnormal Myoview, Angina pectoris Informed consent was obtained prior to the procedure. COMPLICATIONS NONE Estimated Blood Loss: LESS THAN 10 ML TECHNIQUE One percent lidocaine used to anesthetize the right anterior aspect of the wrist. The right radial artery was accessed via the Seldinger technique. A 6 Spanish sheath was placed in the right radial artery. 2.5 mg of verapamil, 800 mcg of nitroglycerin, 1mg Lidocaine and 5000 U Heparin were given through the arterial sheath. The trap catheter was also used to perform left heart catheterization, left ventriculogram and selective coronary angiogram. At the end of the procedure the sheath was removed good hemostasis was achieved using Traclet band, patient was transferred to the postop holding area in stable condition. ANGIOGRAPHIC RESULTS The left main artery Normal The left anterior descending artery Has mild proximal and mid vessel 10% luminal irregularities The circumflex artery Nondominant mild luminal irregularities 10% The right coronary artery Dominant with mild 10% luminal irregularities The FONSECA ventriculogram reveals Preserved 60% The left ventricular end-diastolic pressure 15 mmHg IMPRESSION Mild [id number] coronary artery disease Preserved ejection fraction Mildly elevated LVEDP PLAN 1. Medical management Electronically signed by : Lonny Gonzalez, 11/09/2019 10:54:06
[2019-11-09 09:10] LABS: Basophils % 0.9 % (0.1-2.0); Eosinophils # 0.1 K/mm3 (0.0-0.4); Eosinophils % 2.2 % (0.1-12.0); Hematocrit 35.4 % (42.0-52.0); Hemoglobin 12.2 g/dL (14.1-18.0); Lymphocytes # 0.7 K/mm3 (0.7-4.5); Lymphocytes % 19.9 % (10-50); Mean Corpuscular HGB Conc 34.4 g/dL (31.8-35.4); Mean Corpuscular Hemoglobin 32.8 pg (27.0-31.2); Mean Corpuscular Volume 95.4 fl (80-94); Monocytes # 0.3 K/mm3 (0.1-1.0); Monocytes % 7.9 % (1.7-9.3); Neutrophils # 2.6 K/mm3 (1.8-7.8); Neutrophils % 69.1 % (37.0-80.0); Platelet Count 242 K/mm3 (142-424); Red Blood Count 3.71 M/mm3 (4.60-6.20); Red Cell Distribution Width 13.8 % (11.5-17.5); White Blood Count 3.7 K/mm3 (4.8-10.8)
[2019-11-09 09:17] LABS: Chloride 105 mmol/L (98-107); Potassium 3.6 mmoL/L (3.5-5.1); Sodium 138 mmol/L (136-145)
[2019-11-09 09:20] LABS: Anion Gap 10.6 mEq/L (5-15); Blood Urea Nitrogen 21 mg/dl (9-20); Carbon Dioxide 26 mmol/L (22.0-30.0); Creatinine Clearance Estimated 131 mL/min (50-200); Estimated Glomerular Filt Rate 87 ml/min (>60); GFR (African American) 106 ML/MIN (>60)
[2019-11-09 09:21] LABS: Calcium 9.1 mg/dl (8.4-10.2); Glucose 124 mg/dl (74-100)
== END 2019-11-09 13:40 | disposition home or self-care (01) ==
LOC: CATHLAB 08:31
PROVIDERS: PCP Pediatrics; Visit Provider Internal Medicine
DX: I25.118 Atherosclerotic heart disease of native coronary artery with other forms of angina pectoris (principal); E11.9 Type 2 diabetes mellitus without complications; Z87.891 Personal history of nicotine dependence; I25.2 Old myocardial infarction; Z79.02 Long term (current) use of antithrombotics/antiplatelets; Z79.84 Long term (current) use of oral hypoglycemic drugs; I10 Essential (primary) hypertension; C34.32 Malignant neoplasm of lower lobe, left bronchus or lung; Z79.899 Other long term (current) drug therapy
CPT/HCPCS: 80048; 85025; 93458; 99152; C1725; C1769; J1644; Q9967

== ENCOUNTER → 2019-11-14 10:05 | Outpatient (CLI) | payer MEDICAID, SELFPAY ==
[2019-11-14 10:51] LABS: Blood Urea Nitrogen 13 mg/dl (9-20); Estimated Glomerular Filt Rate 69 ml/min (>60); GFR (African American) 84 ML/MIN (>60)
--- NOTE | 2019-11-14 10:56 | CT_ITS ---
PROCEDURE: CT ABDOMEN PELVIS W CON CLINICAL INDICATION: LUNG CA Follow-up lung cancer COMPARISON: ABDPELW/O CT ABD PELVIS W/O CONTRAST from 01/15/2017 CT ABDOMEN W CON from 05/27/2019 TECHNIQUE: IV Contrast: 75ML OPTIRAY 350 Oral Contrast 450ml Redicat Axial images obtained with sagittal and coronal reformats. All CT scans at the facility use one or more dose reduction, viz: automated exposure control, ma/kV adjustment per patient size (including targeted exams where dose is matched to indication, i.e. head), or iterative reconstruction technique. FINDINGS: The liver, spleen, adrenal glands, kidneys, have an unremarkable appearance. There are post cholecystectomy changes. Multilocular cystic mass is once again noted in the head of the pancreas measuring 3.2 cm similar to the previous exam. No intestinal obstruction or free air. Mild atheromatous changes are present involving the abdominal aorta with minimal dilatation of the mid abdominal aorta at 2.7 cm. Unremarkable appearing appendix. No pelvic mass or abnormal fluid collection apparent. No acute bony anomaly. IMPRESSION: Stable CT appearance of the abdomen and pelvis with no convincing evidence of metastatic disease. No change in the hypodense mass of the pancreatic head and mild dilatation of the abdominal aorta Dictated by: Froilan Grajeda MD 11/15/2019 12:24 Electronically signed by Froilan Grajeda MD in [place] 11/15/2019 12:24
--- NOTE | 2019-11-14 10:56 | CT_ITS ---
PROCEDURE: CT CHEST W CON CLINCAL INDICATION: LUNG CA Follow-up lung cancer COMPARISON: CT CHEST W CON from 08/31/2019 CT ABDOMEN PELVIS W CON from 11/14/2019 TECHNIQUE: IV Contrast: 75ml Optiray 350 Axial images obtained with sagittal and coronal reformats. All CT scans at the facility use one or more dose reduction, viz: automated exposure control, ma/kV adjustment per patient size (including targeted exams where dose is matched to indication, i.e. head), or iterative reconstruction technique. FINDINGS: HEART AND MEDIASTINAL STRUCTURES: Previously noted soft tissue mass in the AP window is once again identified but appears less bulky compared to the previous exam with some residual soft tissue density noted at this region. No new hever areas are evident. Normal heart size. LUNGS AND PLEURAL SPACES: Diffuse bullous changes are once again noted in the mid and upper lung zones. Noncalcified 4 mm nodule right upper lobe unchanged image 31 series 4. Cluster small calcified nodules right lung base posteriorly unchanged 4 mm noncalcified nodule right lung base along the diaphragm image 53 series 4 unchanged small fissural nodule on the right unchanged chronic consolidation is present in the left upper lobe anteriorly and posteriorly not significantly changed. Has the patient had radiation therapy at this region? There is some fibrotic change in the as ago esophageal recess unchanged BONY STRUCTURES: No acute bony abnormalities apparent. UPPER ABDOMEN: Please see abdomen report ADDITIONAL FINDINGS: No other significant abnormalities. IMPRESSION: Continued slight improvement in the mediastinal mass. Persistent central consolidation in the left upper lobe anteriorly. Has the patient had radiation to this area? No new findings evident with stable small right-sided nodules Dictated by: Froilan Grajeda MD 11/15/2019 12:19 Electronically signed by Froilan Grajeda MD in [place] 11/15/2019 12:19
== END ==
PROVIDERS: PCP Pediatrics; Visit Provider Radiology Radiation Oncology
DX: C34.92 Malignant neoplasm of unspecified part of left bronchus or lung (principal)
CPT/HCPCS: 36415; 71260; 74177; 82565; 84520; Q9967

== ENCOUNTER 2019-11-17 09:45 | Outpatient (CLI) | payer MEDICAID, SELFPAY ==
[2019-11-17 09:53] VITALS: BMI 36.6
[2019-11-17 10:10] LABS: Basophils # 0.1 K/mm3 (0-0.2); Eosinophils # 0.1 K/mm3 (0.0-0.4); Eosinophils % 1.3 % (0.1-12.0); Hematocrit 35.5 % (42.0-52.0); Hemoglobin 11.9 g/dL (14.1-18.0); Lymphocytes # 0.6 K/mm3 (0.7-4.5); Lymphocytes % 10.8 % (10-50); Mean Corpuscular HGB Conc 33.5 g/dL (31.8-35.4); Mean Corpuscular Hemoglobin 32.2 pg (27.0-31.2); Mean Corpuscular Volume 96.4 fl (80-94); Mean Platelet Volume 7.1 fl (7.4-10.4); Monocytes # 0.4 K/mm3 (0.1-1.0); Monocytes % 7.1 % (1.7-9.3); Neutrophils # 4.3 K/mm3 (1.8-7.8); Neutrophils % 79.7 % (37.0-80.0); Platelet Count 258 K/mm3 (142-424); Red Blood Count 3.68 M/mm3 (4.60-6.20); Red Cell Distribution Width 13.9 % (11.5-17.5); White Blood Count 5.4 K/mm3 (4.8-10.8)
[2019-11-17 11:15] VITALS: BP 124/78; PULSE 72; RESP 18
[2019-11-17 11:45] VITALS: BP 112/71; PULSE 76; RESP 18
[2019-11-17 12:27] VITALS: BP 121/83; PULSE 81; RESP 18
== END 2019-11-17 12:27 | disposition home or self-care (01) ==
LOC: INF 09:51
PROVIDERS: Visit Provider Internal Medicine Medical Oncology
DX: Z51.11 Encounter for antineoplastic chemotherapy (principal); C34.92 Malignant neoplasm of unspecified part of left bronchus or lung
CPT/HCPCS: 85025; 96413; 96415; J9173

== ENCOUNTER 2019-12-01 10:05 | Outpatient (CLI) | payer MEDICAID, SELFPAY ==
[2019-12-01 10:12] VITALS: BMI 34.9
[2019-12-01 10:30] LABS: Basophils % 0.9 % (0.1-2.0); Eosinophils # 0.1 K/mm3 (0.0-0.4); Eosinophils % 3.2 % (0.1-12.0); Hematocrit 33.2 % (42.0-52.0); Lymphocytes % 23.6 % (10-50); Mean Corpuscular Hemoglobin 32.8 pg (27.0-31.2); Mean Corpuscular Volume 99.4 fl (80-94); Mean Platelet Volume 7.5 fl (7.4-10.4); Monocytes # 0.5 K/mm3 (0.1-1.0); Monocytes % 10.5 % (1.7-9.3); Neutrophils # 2.7 K/mm3 (1.8-7.8); Neutrophils % 61.7 % (37.0-80.0); Platelet Count 261 K/mm3 (142-424); Red Blood Count 3.34 M/mm3 (4.60-6.20); Red Cell Distribution Width 14.8 % (11.5-17.5); White Blood Count 4.3 K/mm3 (4.8-10.8)
[2019-12-01 10:37] LABS: Chloride 105 mmol/L (98-107); Sodium 140 mmol/L (136-145)
[2019-12-01 10:38] LABS: Potassium 3.8 mmoL/L (3.5-5.1)
[2019-12-01 10:40] LABS: Alanine Aminotransferase 22 U/L (12-78); Albumin/Globulin Ratio 1.5 (1.1-1.8); Alkaline Phosphatase 69 U/L (38-126); Anion Gap 9.8 mEq/L (5-15); Aspartate Amino Transferase 27 U/L (17-59); Bilirubin,Total 0.6 mg/dl (0.2-1.3); Blood Urea Nitrogen 23 mg/dl (9-20); Carbon Dioxide 29 mmol/L (22.0-30.0); Creatinine Clearance Estimated 93 mL/min (50-200); Estimated Glomerular Filt Rate 63 ml/min (>60); GFR (African American) 76 ML/MIN (>60); Globulin 2.7 g/dL (1.3-3.2); Total Protein,Serum 6.7 g/dl (6.3-8.2)
[2019-12-01 10:41] LABS: Calcium 8.5 mg/dl (8.4-10.2); Glucose 120 mg/dl (74-100)
[2019-12-01 11:11] LABS: Thyroid Stimulating Hormone 1.64 uIU/mL (0.465-4.68)
[2019-12-01 11:35] VITALS: BP 117/73; PULSE 71; RESP 18
[2019-12-01 12:05] VITALS: BP 119/70; PULSE 68; RESP 18
[2019-12-01 12:20] VITALS: BP 124/75; PULSE 63; RESP 18
[2019-12-01 12:45] VITALS: BP 122/71; PULSE 64; RESP 18
== END 2019-12-01 12:45 | disposition home or self-care (01) ==
LOC: INF 10:10
PROVIDERS: Visit Provider Internal Medicine Medical Oncology
DX: Z51.11 Encounter for antineoplastic chemotherapy (principal); C34.92 Malignant neoplasm of unspecified part of left bronchus or lung
CPT/HCPCS: 80053; 84443; 85025; 96413; J9173

== ENCOUNTER 2019-12-01 16:10 | Emergency (ER) | payer MEDICAID, SELFPAY ==
[2019-12-01 16:11] VITALS: BP 131/70; PULSE 84; RESP 18; TEMP 36.7; O2SAT 94; BMI 40.7
--- NOTE | 2019-12-01 16:23 | CA_ITS ---
APPROVED REPORT Bilateral Lower Extremity Venous Study for DVT. Trim Installer: ALIZA Indications Lower Extremity Edema: Right PAIN AND SWELLING TO RLE Vein Imaging CFV (R): compressive, spontaneous, phasic, augmentation SFJ (R): compressive, spontaneous, phasic, augmentation FEM (R): compressive, spontaneous, phasic, augmentation POP (R): compressive, spontaneous, phasic, augmentation PTV (R): Compressible GSV (R): Compressible Peroneals (R):Not Visualized GAS (R): Compressible Findings No evidence of DVT or superficial thrombophlebitis in the veins scanned of the right lower extremity. Conclusion No evidence of DVT or superficial thrombophlebitis in the veins scanned of the right lower extremity. Electronically signed by : Froilan Grajeda MD 12/05/2019 16:41:19
--- NOTE | 2019-12-01 16:24 | PC.NURSE ---
ECHO LAB NOTIFIED OF DOPPLER
[2019-12-01 17:00] VITALS: BP 113/71; PULSE 82; RESP 20; O2SAT 95
--- NOTE | 2019-12-01 17:05 | XR_ITS ---
PROCEDURE: XR TIBIA FIBULA RT 2V CLINICAL INDICATION: PAIN AND SWELLING COMPARISON: No exams were available for comparison FINDINGS: No fracture or dislocation. No lytic or blastic change. There is normal mineralization. The joint spaces are well-preserved. No significant degenerative/arthritic changes. No erosive changes evident. Other findings:None. IMPRESSION: No acute findings. Dictated by: Stepan Triana 12/02/2019 08:56 Electronically signed by Stepan Triana in [place] 12/02/2019 08:56
[2019-12-01 17:30] VITALS: BP 112/64; PULSE 88; RESP 20; O2SAT 91
[2019-12-01 18:00] VITALS: BP 118/67; PULSE 84; RESP 20; O2SAT 94
--- NOTE | 2019-12-01 18:02 | HMH.EDGENADL ---
ED Disposition Clinical Impression: Effusion, right knee Disposition: Home, Self-Care Condition on Discharge: Good Instructions: How to Use Crutches, DI for Knee Effusion, How to Use a Knee Immobilizer Additional Instructions: Crutches and knee immobilizer. Follow-up with Dr. Hurd, call tomorrow to make appointment. Ice for pain and swelling. Nezperce for pain. Additional instructions for CONTROLLED SUBSTANCES: You have been prescribed a medication that is a controlled substance. Controlled substances include pain medications known as opiates and sedative nerve medications known as benzodiazepines. Tramadol, fioricet, and gabapentin are also controlled substances. Some common opiates include: Codeine (such as Tylenol #3) Hydrocodone (Vicodin, Lortab, Lorcet, Nezperce) Oxycodone (Percocet, Percodan, Oxycodone, Oxy IR) Some common benzodiazepines include: Diazepam (Valium) Lorazepam (Ativan) Alprazolam (Xanax) Clonazepam (Klonopin) Oxazepam (Serax) All of these controlled substances are highly addictive and frequently abused. Misuse can and frequently does lead to addiction as well as overdose and . Medication should be stored in a locked cabinet or other secure storage unit. Do not store the medication in a motor vehicle. Short term supplies, 3 days or less, are prescribed because of the highly addictive nature of the medication. Any of the controlled substance medication NOT taken should be disposed of properly and NOT SAVED. The recommended method of disposing of unused medications is: Place the medicines in a sealable plastic bag. If the medicine is a solid, crush it or add water to dissolve it. Add something undesirable (cat litter, coffee grounds, etc.) Dispose of sealed bag in household trash Do not flush or pour unused medicines down a sink or drain. Controlled substances should not be shared, given away or sold. Because of the addictive nature and frequent abuse, these medications are sometimes stolen. These medications should be kept in a safe place where they cannot be stolen. Do not keep them in your car or purse. Lost or stolen prescriptions for controlled substances WILL NOT BE REFILLED in this emergency department, regardless of whether a police report was filed. Prescriptions: Hydrocod/Acet 5/325 mg [Nezperce 5/325mg tablet] 1 tab PO Q6HP PRN #10 tab PRN Reason: Pain Transmission Status: Received by [facility] Referrals: Lyndon Medina [Primary Care Provider] - Ayla Hurd MD [Physician] - - Critical Care Critical Care Time: No Attestation: On 12/01/19, the high probability of a clinically significant, sudden or life threatening deterioration of the following system(s) required my full and direct attention, intervention and personal management. The time I documented below is in addition to time spent performing reported procedures but includes the following listed in this critical care notation. Medical Decision Making - Medical Records Medical records reviewed: Yes: I reviewed the patient's medical records. - Salvador Inquiry Pt receiving controlled substance: Yes Salvador was queried for this patient: Yes Reference #:: [id number] Risks and benefits of using a controlled substance: were discussed with pt by me Comment: 37 rxs. last opiood rx 12 norco 10/27/19 Vital Signs: 12/01/19 16:11 12/01/19 17:00 12/01/19 17:30 Temperature 98.1 F Temperature Source Oral Pulse Rate Pulse Rate [Radial] 84 82 88 Respiratory Rate 18 20 20 Blood Pressure Blood Pressure [Right Arm] 131/70 113/71 112/64 Blood Pressure Mean [Right Arm] 90 85 80 Blood Pressure Source Blood Pressure Source [Right Arm] Automatic Cuff Automatic Cuff Automatic Cuff Blood Pressure Position Blood Pressure Position [Right Arm] Sitting Supine Supine 02 Sat by Pulse Oximetry 94 L 95 91 L Oxygen Delivery Method Room Air Room Air Room Air 12/01/19 18:00 11/30
--- NOTE | 2019-12-01 18:10 | PC.NURSE ---
IN ROOM NOW SPEAKING WITH PATIENT
--- NOTE | 2019-12-01 18:27 | XR_ITS ---
PROCEDURE: XR KNEE RT 3V CLINICAL INDICATION: pain, swelling COMPARISON: [id number] KNEE-3 VIEWS-RT from 02/03/2016 [id number] KNEE-4 OR 5 VIEWS-LT from 03/05/2016 [id number] KNEE-4 OR 5 VIEWS-RT from 11/20/2016 [id number] XR knee RT 4V from 12/02/2017 FINDINGS: There is stable, mild degenerative narrowing of the patellofemoral joint space. The medial and lateral joint spaces, soft tissues, and other bony structures are unremarkable. There is no fracture or dislocation. IMPRESSION: Stable mild degenerate narrowing the patellofemoral joint space Dictated by: Stepan Triana 12/02/2019 09:02 Electronically signed by Stepan Triana in [place] 12/02/2019 09:02
[2019-12-01 18:30] VITALS: BP 101/59; PULSE 86; RESP 20; O2SAT 93
--- NOTE | 2019-12-01 18:32 | PC.NURSE ---
RADIOLOGY IN ROOM NOW FOR KNEE X RAY
[2019-12-01 18:46] VITALS: BP 101/59; PULSE 86; RESP 20; TEMP 36.7; O2SAT 93
== END 2019-12-01 18:56 | disposition home or self-care (01) ==
PROVIDERS: Emergency Provider Emergency Medicine; PCP Pediatrics
DX: M25.461 Effusion, right knee (principal); I25.10 Atherosclerotic heart disease of native coronary artery without angina pectoris; C34.90 Malignant neoplasm of unspecified part of unspecified bronchus or lung; E11.9 Type 2 diabetes mellitus without complications; J44.9 Chronic obstructive pulmonary disease, unspecified; E78.5 Hyperlipidemia, unspecified; I10 Essential (primary) hypertension; M81.0 Age-related osteoporosis without current pathological fracture; I25.2 Old myocardial infarction
CPT/HCPCS: 29505; 73562; 73590; 93971; 99284

== ENCOUNTER → 2019-12-05 10:00 | Outpatient (CLI) | payer MEDICAID, SELFPAY ==
--- NOTE | 2019-12-05 10:05 | XR_ITS ---
PROCEDURE: XR KNEE RT 4V CLINICAL INDICATION: kne pain COMPARISON: [id number] KNEE-4 OR 5 VIEWS-LT from 03/05/2016 [id number] KNEE-4 OR 5 VIEWS-RT from 11/20/2016 [id number] XR knee RT 4V from 12/02/2017 XR KNEE RT 3V from 12/01/2019 FINDINGS: No fracture or dislocation. No lytic or blastic change. There is normal mineralization. There are mild tricompartmental osteoarthritic changes with suspected small suprapatellar effusion overall not significantly changed from 12/01/2019. Other findings:None. IMPRESSION: Mild osteoarthritis with small suprapatellar effusion Dictated by: Froilan Grajeda MD 12/05/2019 10:44 Electronically signed by Froilan Grajeda MD in [place] 12/05/2019 10:44
== END ==
PROVIDERS: PCP Pediatrics; Visit Provider Orthopaedic Surgery
DX: M25.561 Pain in right knee (principal)
CPT/HCPCS: 73564

== ENCOUNTER → 2019-12-13 14:20 | Outpatient (CLI) | payer BC, SELFPAY ==
[2019-12-13 16:28] LABS: Coronavirus 19 IgG Antibody Negative (Negative); Coronavirus 19 IgM Antibody Negative (Negative)
== END ==
PROVIDERS: Visit Provider Surgery
DX: Z03.818 Encounter for observation for suspected exposure to other biological agents ruled out (principal)
CPT/HCPCS: 36415; 86328

== ENCOUNTER 2019-12-14 09:51 | Outpatient (CLI) | payer BC, SELFPAY ==
[2019-12-14 09:52] VITALS: BMI 36.8
[2019-12-14 10:12] LABS: Basophils # 0.1 K/mm3 (0-0.2); Basophils % 1.2 % (0.1-2.0); Eosinophils # 0.1 K/mm3 (0.0-0.4); Eosinophils % 2.3 % (0.1-12.0); Hematocrit 33.7 % (42.0-52.0); Hemoglobin 11.3 g/dL (14.1-18.0); Lymphocytes # 1.1 K/mm3 (0.7-4.5); Lymphocytes % 19.8 % (10-50); Mean Corpuscular HGB Conc 33.7 g/dL (31.8-35.4); Mean Corpuscular Hemoglobin 32.9 pg (27.0-31.2); Mean Corpuscular Volume 97.8 fl (80-94); Mean Platelet Volume 7.3 fl (7.4-10.4); Monocytes # 0.5 K/mm3 (0.1-1.0); Monocytes % 8.8 % (1.7-9.3); Neutrophils # 3.7 K/mm3 (1.8-7.8); Platelet Count 287 K/mm3 (142-424); Red Blood Count 3.44 M/mm3 (4.60-6.20); Red Cell Distribution Width 14.4 % (11.5-17.5); White Blood Count 5.5 K/mm3 (4.8-10.8)
[2019-12-14 10:55] VITALS: BP 112/71; PULSE 68; RESP 18; O2SAT 95
[2019-12-14 11:10] VITALS: BP 104/63; PULSE 69; RESP 18
[2019-12-14 11:25] VITALS: BP 104/67; PULSE 70; RESP 20
[2019-12-14 11:40] VITALS: BP 105/58; PULSE 68; RESP 18
[2019-12-14 12:10] VITALS: BP 110/65; PULSE 70; RESP 18; O2SAT 94
== END 2019-12-14 12:10 | disposition home or self-care (01) ==
LOC: INF 09:51
PROVIDERS: Visit Provider Internal Medicine Medical Oncology
DX: C34.90 Malignant neoplasm of unspecified part of unspecified bronchus or lung (principal); D50.9 Iron deficiency anemia, unspecified
CPT/HCPCS: 85025; 96413; J9173

== ENCOUNTER 2019-12-15 08:05 | Day surgery (SDC) | payer BC, SELFPAY ==
[2019-12-14 10:52] VITALS: BMI 34.9
[2019-12-15] VITALS (8 sets, daily range): BP systolic 108–134; BP diastolic 62–80; PULSE 51–73; RESP 15–16; TEMP 36.3–36.4; O2SAT 93–100
[2019-12-15 08:37] LABS: POC Glucose,Bedside 108 (70-110)
--- NOTE | 2019-12-15 09:29 | HMH.ANESCL ---
[facility] Anesthesia Checklist - Patient Identification Patient Identification: Arm Band - Structural Data Admitted From: Home Planned Operative Procedure/s: egd/colonoscopy Consent for Planned Operative Procedure(s) Verified: Yes Verified Documents: Surgical Consent, History and Physical - NPO Status Verified Time NPO: 00:00 - Additional verifications Anesthesia Reactions: No Hx Blood Transfusions: No Blood Transfusion Reaction: No - Airway Assessment C-Spine Mobility Assessed: Yes (mp2) TMJ Mobility Assessed: Yes Dentition: Edentulous - Neurological Assessment Level of Consciousness: Awake, Alert - Anesthesia Plan Anesthesia Risk discussed: Yes Anesthesia Plan: Verified ASA Class: III Anesthesia Type: MAC [facility] History I have reviewed the patient's past medical history: Yes Medical History: Reports:: Cancer (lung), Chronic Obstructive Pulmonary Disease (COPD), Coronary Artery Disease, Cerebrovascular Accident, Diabetes Mellitus Type 2, Gastrointestinal Bleed, Hyperlipidemia, Hypertension, Lung Disease, Migraine, Myocardial Infarction, Osteoporosis, Peripheral Artery Disease, Renal Insufficiency, Transient Ischemic Attacks (TIA), Ulcer Denies:: Diabetes Mellitus Type 1, Internal Pacemaker, MRSA, Seizures *Have you ever received a pneumonia vaccine?: No *Have you received a flu vaccine this season?: No Other Medical History: Reports: Anemia, Arthritis, Cataracts, Chemotherapy, Osteoporosis, Radiation Therapy, Other (YAMILE, former smoker 8 months ago). Denies: Blood Transfusion Reaction Anesthesia experience/problems:: nac Laterality Cases: Left: Arthroscopy Shoulder, Right: Arthroscopy Knee Other Surgeries: Yes: Cardiac Catheterization, Cardiac Surgery, Cholecystectomy, Colonoscopy, EGD, Other. No: Pacemaker Amputation: No Fractures: No - *Social History Last grade of school completed: High school graduate Smoking Status: Former smoker Tobacco Type: cigarettes # Packs/Day (cigarettes): 1 #Yrs smoked (if former smoker): 40 Alcohol Intake: never Alcohol Intake Frequency:: a few times a month Substance Use Type: marijuana *Occupational Status:: unemployed Housing: house Household Members: family, children *Travel in the last 8 weeks: None Family Hx:: Cancer, Diabetes, Heart Attack
--- NOTE | 2019-12-15 10:01 | P.PCN_ITS ---
- Procedure: Date: 12/15/19 Procedure Performed:: Esophagogastroduodenoscopy with biopsy Colonoscopy with polypectomy Indications:: History of colon polyps History of peptic ulcer disease Anemia Performing Provider:: Deonte Robledo MD Referring Provider:: . Sedation:: Monitored anesthesia care Procedure:: After informed consent was obtained the patient was taken to the endoscopy brooks ite. Sedation ensued after the patient was transferred to the left lateral decubitus position. Pulse, blood pressure, and oxygen saturation were monitored throughout the procedure. The endoscope was advanced beyond the duodenal bulb. Retroflexion within the gastric lumen was accomplished. The gastroscope was carefully removed. Digital rectal exam revealed no significant abnormality. The colonoscope was placed in position. The entire colon was evaluated. The colonoscope was carefully removed and the patient was transferred to recovery in stable condition. Please see findings and specimens below for detail. Findings:: Minimal gastritis Patchy duodenitis Bowel preparation fair to moderate Severe spasticity and lack of relaxation Multiple polyps (see specimens) Specimens:: Duodenal bulb biopsy Gastric antral biopsy Cecal polyp Hepatic flexure polyp Sessile proximal transverse colon polyp Sessile colon polyp at 50 cm Large partially-pedunculated polyp at 40 cm (snare) Sessile polyp at 25 cm (snare) Large sessile polyp at 20 cm (snare) Recommendations:: Timing of repeat colonoscopy is pending pathology but will likely be between 2-3 years secondary to history of large complex polyps, spasticity/lack of relaxation, and size/nature/number of polyps noted on this evaluation. Complications:: No immediate Estimated blood obtained (mL): 1
--- NOTE | 2019-12-15 10:32 | XR_ITS ---
PROCEDURE: XR ACUTE ABDOMEN SERIES CLINICAL INDICATION: abdominal pain COMPARISON: CT CHEST W CON from 11/14/2019 FINDINGS: Frontal view of the chest shows bullous change in the left upper lobe. Infiltrate is present in the left mid and lower lung zone. The right lung is clear. Upright and supine views of the abdomen demonstrates a nonspecific bowel gas pattern. No intestinal obstruction or free air. Artifact present in the left upper abdomen on the upright views. No acute bony findings. Surgical clips are present in the right upper quadrant. IMPRESSION: Left lower lobe pneumonia. No obstruction or free air. Dictated by: Froilan Grajeda MD 12/15/2019 11:29 Electronically signed by Froilan Grajeda MD in [place] 12/15/2019 11:29
--- NOTE | 2019-12-15 11:49 | PC.NURSE ---
MD made aware of pt pain of 8 now a 9. No acute findings on xray. IV Toradol given per MD order-see emar. VSS. Abdomen is soft.
== END 2019-12-15 11:35 | disposition home or self-care (01) ==
LOC: OUTP 08:05
PROVIDERS: PCP Pediatrics; Visit Provider Surgery
PROC: 0DJ08ZZ Inspection of Upper Intestinal Tract, Via Natural or Artificial Opening Endoscopic (ICD-10-PCS; CPT 43235; principal; 2019-12-15 09:00)
DX: K63.5 Polyp of colon (principal); K58.9 Irritable bowel syndrome, unspecified; K29.60 Other gastritis without bleeding; K29.80 Duodenitis without bleeding; Z86.010 Personal history of colon polyps; Z87.19 Personal history of other diseases of the digestive system; J44.9 Chronic obstructive pulmonary disease, unspecified; I25.10 Atherosclerotic heart disease of native coronary artery without angina pectoris; I63.9 Cerebral infarction, unspecified; E11.9 Type 2 diabetes mellitus without complications; I10 Essential (primary) hypertension; G45.9 Transient cerebral ischemic attack, unspecified
CPT/HCPCS: 43239; 45385; 45380; 74021; 82962

== ENCOUNTER 2019-12-29 10:04 | Outpatient (CLI) | payer BC, SELFPAY ==
[2019-12-29 10:06] VITALS: BMI 38.2
[2019-12-29 10:14] LABS: Basophils % 0.7 % (0.1-2.0); Eosinophils # 0.1 K/mm3 (0.0-0.4); Eosinophils % 2.8 % (0.1-12.0); Hematocrit 38.4 % (42.0-52.0); Hemoglobin 12.5 g/dL (14.1-18.0); Lymphocytes # 0.8 K/mm3 (0.7-4.5); Lymphocytes % 18.4 % (10-50); Mean Corpuscular HGB Conc 32.4 g/dL (31.8-35.4); Mean Corpuscular Hemoglobin 32.7 pg (27.0-31.2); Mean Corpuscular Volume 100.9 fl (80-94); Mean Platelet Volume 7.5 fl (7.4-10.4); Monocytes # 0.3 K/mm3 (0.1-1.0); Monocytes % 7.1 % (1.7-9.3); Neutrophils # 3.2 K/mm3 (1.8-7.8); Platelet Count 237 K/mm3 (142-424); Red Blood Count 3.81 M/mm3 (4.60-6.20); Red Cell Distribution Width 14.6 % (11.5-17.5); White Blood Count 4.5 K/mm3 (4.8-10.8)
[2019-12-29 10:20] LABS: Chloride 103 mmol/L (98-107)
[2019-12-29 10:21] LABS: Potassium 4.1 mmoL/L (3.5-5.1); Sodium 140 mmol/L (136-145)
[2019-12-29 10:23] LABS: Alanine Aminotransferase 24 U/L (12-78); Alkaline Phosphatase 59 U/L (38-126); Aspartate Amino Transferase 23 U/L (17-59); Bilirubin,Total 0.7 mg/dl (0.2-1.3); Blood Urea Nitrogen 23 mg/dl (9-20); Creatinine Clearance Estimated 109 mL/min (50-200); Estimated Glomerular Filt Rate 69 ml/min (>60); GFR (African American) 83 ML/MIN (>60)
[2019-12-29 10:24] LABS: Albumin Level 4.2 g/dl (3.5-5.0); Albumin/Globulin Ratio 1.6 (1.1-1.8); Anion Gap 11.1 mEq/L (5-15); Calcium 9.2 mg/dl (8.4-10.2); Carbon Dioxide 30 mmol/L (22.0-30.0); Globulin 2.7 g/dL (1.3-3.2); Glucose 105 mg/dl (74-100); Total Protein,Serum 6.9 g/dl (6.3-8.2)
[2019-12-29 11:10] VITALS: BP 97/69; PULSE 60; RESP 18; TEMP 36.6; O2SAT 98
[2019-12-29 11:25] VITALS: BP 95/65; PULSE 59; RESP 18
[2019-12-29 11:40] VITALS: BP 104/62; PULSE 61; RESP 18
[2019-12-29 11:55] VITALS: BP 109/59; PULSE 63; RESP 18
[2019-12-29 12:10] VITALS: BP 103/57; PULSE 66; RESP 18
[2019-12-29 12:30] VITALS: BP 103/57; PULSE 63; RESP 18
== END 2019-12-29 12:30 | disposition home or self-care (01) ==
LOC: INF 10:04
PROVIDERS: Visit Provider Internal Medicine Medical Oncology
DX: Z51.11 Encounter for antineoplastic chemotherapy (principal); C34.90 Malignant neoplasm of unspecified part of unspecified bronchus or lung; D50.9 Iron deficiency anemia, unspecified
CPT/HCPCS: 80053; 85025; 96413; 96415; J9173

== ENCOUNTER 2020-01-06 09:00 | Outpatient (RCR) | payer BC, SELFPAY ==
--- NOTE | 2019-12-07 08:44 | HMH.PTOPEV ---
PT Outpatient Evaluation Rehab PT Outpatient Evaluation Start: 12/07/19 07:57 Freq: Status: Active Protocol: Document 12/07/19 08:31 PHOCOSTA (Rec: 12/07/19 08:44 PHORNE [id number]) Electronically Signed By Scott Rodríguez, PT 12/07/19 08:31 Outpatient Therapy Subjective History Subjective History Pt is 58 yoaam who presents with c/o pain in the R knee x ~ 2 wks with insidious onset of symptoms. Pt also reports increased edema, worse in the evening. He has long hx of chronic pain in low back and neck. He has significant PMH of COPD, CAD, CVA, TIA, DM-II, HTN, HL, OA, RI, and is currently being treated for lung CA with radiation after undergoing chemo. Chief Complaint Pain,Stiff Symptom Type Ache,Dull Symptoms Relieved By Ice Symptoms Aggravated By Physical Activity,Walking Prior Functional Limitations None Current Functional Limitations Walking,Stairs Symptom Description Constant but Variable Level of pain today (0-10) 8 Pain scale - at its worst (0-10) 10 Hip/Knee Eval Gait Observation General Gait Pattern Observation Antalgic Gait Palpation Tenderness right Knee Palpation Finding Tenderness Knee Palpation Overall Comment lateral knee jt line, ITB MMT Hip Flexion Strength Grade 4 Good Hip Abduction Strength Grade 4 Good Knee Extension Strength Grade 5 Normal Knee Flexion Strength Grade 5 Normal ROM Knee Extension Active Range of Motion ( 0 degrees) Knee Extension Passive Range of Motion ( 0 degrees) Knee Flexion Active Range of Motion ( 0-70 degrees) Knee Flexion Passive Range of Motion ( 0-80 degrees) Knee ROM Limitations Pain Special Tests Knee Apley Compression Test Negative Left,Negative Right Knee Anterior Drawer Test Negative Left,Negative Right Knee Anterior Haroldo Test Negative Left,Negative Right Knee Posterior Sag ([place] Drawer) Test Negative Left,Negative Right Knee Valgus Stress Test Negative Left,Negative Right Knee Varus Stress Test Negative Left,Negative Right Outpatient Therapy Assessment Impairments Problems/Impairmments Palpation Tenderness,Impaired Range of Motion,Impaired Strength,Impaired Walking, Impaired Stair Climbing, Subjective C/O Pain,Impaired
== END 2020-01-06 09:05 | disposition home or self-care (01) ==
LOC: PT 09:00
PROVIDERS: Visit Provider Orthopaedic Surgery
DX: M25.561 Pain in right knee (principal)
CPT/HCPCS: 97010; 97014; 97110; 97140; 97163; 97760; G0283

== ENCOUNTER 2020-01-13 09:55 | Outpatient (CLI) | payer BC, SELFPAY ==
[2020-01-13 10:00] VITALS: BMI 37.9
[2020-01-13 10:16] LABS: Basophils % 0.2 % (0.1-2.0); Eosinophils # 0.1 K/mm3 (0.0-0.4); Eosinophils % 1.7 % (0.1-12.0); Hematocrit 35.4 % (42.0-52.0); Hemoglobin 11.6 g/dL (14.1-18.0); Lymphocytes # 1.1 K/mm3 (0.7-4.5); Lymphocytes % 16.6 % (10-50); Mean Corpuscular HGB Conc 32.8 g/dL (31.8-35.4); Mean Corpuscular Hemoglobin 32.6 pg (27.0-31.2); Mean Corpuscular Volume 99.4 fl (80-94); Mean Platelet Volume 6.8 fl (7.4-10.4); Monocytes # 0.4 K/mm3 (0.1-1.0); Monocytes % 6.2 % (1.7-9.3); Neutrophils # 4.7 K/mm3 (1.8-7.8); Neutrophils % 75.2 % (37.0-80.0); Platelet Count 229 K/mm3 (142-424); Red Blood Count 3.57 M/mm3 (4.60-6.20); Red Cell Distribution Width 14.2 % (11.5-17.5); White Blood Count 6.3 K/mm3 (4.8-10.8)
[2020-01-13 10:45] VITALS: BP 111/60; PULSE 61; RESP 18
[2020-01-13 11:20] VITALS: BP 103/50; PULSE 71; RESP 18
[2020-01-13 12:00] VITALS: BP 112/63; PULSE 71; RESP 18
[2020-01-13 12:24] VITALS: BP 97/59; PULSE 71; RESP 18
== END 2020-01-13 12:00 | disposition home or self-care (01) ==
LOC: INF 09:58
PROVIDERS: Visit Provider Internal Medicine Medical Oncology
DX: Z51.11 Encounter for antineoplastic chemotherapy (principal); C34.90 Malignant neoplasm of unspecified part of unspecified bronchus or lung; D50.9 Iron deficiency anemia, unspecified
CPT/HCPCS: 85025; 96413; J9173

== ENCOUNTER → 2020-01-18 08:31 | Outpatient (CLI) | payer BC, SELFPAY ==
--- NOTE | 2020-01-18 08:41 | MR_ITS ---
PROCEDURE: MR KNEE RT WO CON CLINICAL INDICATION: knee pain Knee pain [id number]. Been going to physical therapy. Pain when bending and extending. No injury. Prior x-ray 12/05/2019 COMPARISON: CR XR KNEE RT 4V from 12/05/2019 TECHNIQUE: Routine multiplanar multi echo sequences are performed without gadolinium enhancement. FINDINGS: The cruciate ligaments appear intact. The collateral ligaments, patellar tendon, and quadriceps tendon also appear intact. No meniscal tear apparent. There are tricompartmental osteoarthritic changes with a small to medium-sized knee joint effusion. There is mild diffuse subcutaneous edema about the knee. There is thinning of the patellar cartilage laterally. There is some scattered increased T2 signal of the lateral femoral condyle anteriorly and medially as well as the medial femoral condyle in the subcortical region. IMPRESSION: 1. No evidence of internal derangement. 2. Mild tricompartmental osteoarthritic changes with knee joint effusion. 3. Scattered increased T2 bone marrow signal intensity of the femur distally which could be due to areas of osteochondritis Dictated b Froilan Grajeda MD 01/19/2020 13:58 Froilan Grajeda MD in [place] 01/19/2020 13:58
== END ==
PROVIDERS: PCP Pediatrics; Visit Provider Orthopaedic Surgery
DX: M25.561 Pain in right knee (principal)
CPT/HCPCS: 73721

== ENCOUNTER 2020-01-20 12:50 | Emergency (ER) | payer BC, SELFPAY ==
[2020-01-20 12:54] VITALS: BP 145/81; PULSE 88; RESP 18; TEMP 37; O2SAT 97; BMI 43.2
--- NOTE | 2020-01-20 12:59 | XR_ITS ---
PROCEDURE: XR KNEE RT 3V CLINICAL INDICATION: PAIN/SWELLING COMPARISON: CR XR KNEE RT 4V from 12/05/2019 FINDINGS: No fracture or dislocation. No lytic or blastic change. There is normal mineralization. There is mild joint space narrowing medially and there is mild spurring of the tibial spines. There has been slight interval increase in size of the suprapatellar effusion. There is no fracture or loose body. Other findings:None. IMPRESSION: Stable mild degenerate change with slight interval increase in size of previously noted suprapatellar effusion Dictated by: Dr. Yonny Martines MD 01/20/2020 13:37 Dr. Yonny Martines MD in [place] 01/20/2020 13:37
[2020-01-20 14:24] LABS: Uric Acid 6.3 mg/dl (3.5-8.5)
--- NOTE | 2020-01-20 14:42 | HMH.EDGENADL ---
ED Disposition Clinical Impression: Gouty arthritis of both knees Disposition: Home, Self-Care Condition on Discharge: Good Instructions: DI for Chronic Pain -- Adult Prescriptions: Indomethacin [Indocin 25mg capsule] 25 mg PO TID 10 Days #30 Prescription Printed Referrals: Lyndon Medina [Primary Care Provider] - - Critical Care Critical Care Time: No Attestation: On 01/20/20, the high probability of a clinically significant, sudden or life threatening deterioration of the following system(s) required my full and direct attention, intervention and personal management. The time I documented below is in addition to time spent performing reported procedures but includes the following listed in this critical care notation. Medical Decision Making - Medical Records Medical records reviewed: Yes: I reviewed the patient's medical records. - [place] Inquiry Pt receiving controlled substance: No Vital Signs: 01/20/20 12:54 Temperature 98.6 F Temperature Source Oral Pulse Rate [Right] 88 Respiratory Rate 18 Blood Pressure [Right Arm] 145/81 H Blood Pressure Mean [Right Arm] 102 Blood Pressure Source [Right Arm] Automatic Cuff 02 Sat by Pulse Oximetry 97 Oxygen Delivery Method Room Air - Lab Data Lab results reviewed: Yes: I reviewed the patient's lab results. Lab Results 01/20/20 14:10: Uric Acid 6.3 Orders (Tests/Meds): ED MEDICATIONS Discontinued Medications Generic Name Dose Route Start Last Admin Trade Name Alia PRN Reason Stop Dose Admin Ketorolac Tromethamine 60 mg 01/20/20 14:30 Toradol 60mg/2ml Vial IM 01/20/20 14:31 ONCE ONE Methylprednisolone Sodium Succinate 125 mg 01/20/20 14:30 Solu-Medrol 125mg/2ml Vial IM 01/20/20 14:31 ONCE ONE General Adult HPI - General Chief complaint: PAIN Stated complaint: swollen right knee, no accident Time Seen by Provider: 01/20/20 14:20 Mode of Arrival: Wheelchair Limitations: No Limitations Description of Symptoms (Recalled from ER Triage Doc. by RN): PATIENT STATES HE WOKE UP THIS AM WITH PAIN AND SWELLING TO HIS RIGHT KNEE. DENIES ANY TRAUMA. STATES HE'S HAD EPISODES LIKE THIS IN THE PAST, BUT THIS SEEMS TO BE WORSE. +ROM, CMS INTACT - History of Present Illness HPI narrative: 59-year-old gentleman presents the emergency room with right knee pain. He states he woke up this morning he had some small swelling around his knee classifies it is kind of tight and sharp with some warmth. Patient states that he may have had a gouty attack in the same the [place] 15 to 20 years ago. Patient denies any acute trauma. Patient does rate his pain 6 out of 10 classifies it as a fullness/pressure-like sensation. Alleviating factors include rest exacerbating factors include movement.Patient denies any recent cough or shortness of breath, patient denies any sore throat or headache, patient denies any loss of taste or smell, patient denies any malaise or fatigue, patient denies any abdominal pain nausea vomiting or diarrhea. - Related Data Home Medications Medication Instructions Recorded Confirmed Dicyclomine HCl [Bentyl 10mg 10 mg PO BID 04/29/19 01/13/20 capsule] Metoprolol Tartrate [Lopressor See Rx Instructions .ROUTE .COMPLEX 07/28/19 01/13/20 25mg tablet] clonazepam 0.5 mg tablet 0.5 mg PO BID tab 10/06/19 01/13/20 gabapentin 800 mg tablet 800 mg PO TID 10/06/19 01/13/20 Ergocalciferol (Vitamin D2) See Rx Instructions .ROUTE .COMPLEX 11/17/19 01/13/20 [Drisdol] [id number]/Sod Sulf,Bicarb,Cl/KCl 240 ml PO DAILY 12/01/19 01/13/20 [Golytely] Previous Rx's Medication Instructions Recorded metformin 850 mg tablet 850 mg PO BID #180 tab 06/02/18 lansoprazole 30 mg capsule,delayed 30 mg PO QHS #90 cap 11/03/18 release hydrochlorothiazide 12.5 mg capsule 12.5 mg PO QAM #90 cap 07/13/19 lisinopril 5 mg tablet 5 mg PO DAILY #90 tab 08/22/19 clopidogrel 75 mg tablet 75 mg PO DAILY #30 tab 09/05/19 fur
[2020-01-20 14:56] VITALS: BP 137/83; PULSE 78; RESP 18; TEMP 37.1; O2SAT 99
== END 2020-01-20 14:58 | disposition home or self-care (01) ==
PROVIDERS: Emergency Provider Family Medicine; PCP Pediatrics
DX: M10.062 Idiopathic gout, left knee (principal); M10.061 Idiopathic gout, right knee; E11.9 Type 2 diabetes mellitus without complications; Z79.84 Long term (current) use of oral hypoglycemic drugs; I10 Essential (primary) hypertension; J44.9 Chronic obstructive pulmonary disease, unspecified; I25.10 Atherosclerotic heart disease of native coronary artery without angina pectoris; E78.5 Hyperlipidemia, unspecified; I25.2 Old myocardial infarction; Z87.891 Personal history of nicotine dependence; Z79.899 Other long term (current) drug therapy
CPT/HCPCS: 73562; 84550; 96372; 99282

== ENCOUNTER 2020-01-26 10:08 | Outpatient (CLI) | payer BC, SELFPAY ==
[2020-01-26 10:11] VITALS: BMI 39.1
[2020-01-26 10:35] LABS: Basophils % 0.5 % (0.1-2.0); Eosinophils # 0.1 K/mm3 (0.0-0.4); Eosinophils % 2.5 % (0.1-12.0); Hematocrit 37.7 % (42.0-52.0); Hemoglobin 12.6 g/dL (14.1-18.0); Lymphocytes # 0.9 K/mm3 (0.7-4.5); Lymphocytes % 19.3 % (10-50); Mean Corpuscular HGB Conc 33.5 g/dL (31.8-35.4); Mean Corpuscular Hemoglobin 33.6 pg (27.0-31.2); Mean Corpuscular Volume 100.3 fl (80-94); Mean Platelet Volume 7.1 fl (7.4-10.4); Monocytes # 0.3 K/mm3 (0.1-1.0); Monocytes % 6.5 % (1.7-9.3); Neutrophils # 3.3 K/mm3 (1.8-7.8); Neutrophils % 71.1 % (37.0-80.0); Platelet Count 213 K/mm3 (142-424); Red Blood Count 3.76 M/mm3 (4.60-6.20); Red Cell Distribution Width 14.1 % (11.5-17.5); White Blood Count 4.6 K/mm3 (4.8-10.8)
[2020-01-26 10:52] LABS: Chloride 103 mmol/L (98-107); Potassium 4.3 mmoL/L (3.5-5.1); Sodium 142 mmol/L (136-145)
[2020-01-26 10:55] LABS: Alanine Aminotransferase 30 U/L (12-78); Albumin Level 3.8 g/dl (3.5-5.0); Albumin/Globulin Ratio 1.4 (1.1-1.8); Alkaline Phosphatase 66 U/L (38-126); Anion Gap 10.3 mEq/L (5-15); Aspartate Amino Transferase 30 U/L (17-59); Bilirubin,Total 0.6 mg/dl (0.2-1.3); Blood Urea Nitrogen 29 mg/dl (9-20); Carbon Dioxide 33 mmol/L (22.0-30.0); Creatinine Clearance Estimated 82 mL/min (50-200); Estimated Glomerular Filt Rate 48 ml/min (>60); GFR (African American) 58 ML/MIN (>60); Globulin 2.8 g/dL (1.3-3.2); Glucose 88 mg/dl (74-100); Total Protein,Serum 6.6 g/dl (6.3-8.2)
--- NOTE | 2020-01-26 11:14 | CT_ITS ---
PROCEDURE: CT ANGIO CHEST CLINCIAL INDICATION: LUNG CANCER Lung cancer, leg swelling with shortness of air COMPARISON: CT CT CHEST W CON from 11/14/2019 TECHNIQUE: IV Contrast: 70ML OPTIRAY 350 Axial images obtained with sagittal and coronal reformats. All CT scans at the facility use one or more dose reduction, viz: automated exposure control, ma/kV adjustment per patient size (including targeted exams where dose is matched to indication, i.e. head), or iterative reconstruction technique. FINDINGS: HEART AND MEDIASTINAL STRUCTURES: There is no evidence of pulmonary embolus. No evidence of aortic aneurysm. There is increased density within the mediastinum at the AP window similar to the previous exam. LUNGS AND PLEURAL SPACES: Bullous changes are present in the upper lobes similar to the previous exam. No change in the 3 mm noncalcified nodule right upper lobe. There is a new small parenchymal opacity in the right upper lobe medially which could be due to an area of atelectasis or patchy infiltrate. Calcified nodules are present in the right lower lobe unchanged. There is some chronic parenchymal opacity in the right lower lobe medially and inferiorly and in the right perihilar region. Chronic consolidation is present in the left upper lobe posteriorly and in the perihilar region and left lower lobe superiorly with bronchial thickening which may be related to postradiation changes.. No lobar consolidation or collapse. No effusions. BONY STRUCTURES: No acute bony abnormalities apparent. UPPER ABDOMEN: Unremarkable. ADDITIONAL FINDINGS: No other significant abnormalities. IMPRESSION: 1. Overall no significant change in the appearance of the chest compared to 11/14/2019. Mediastinal mass is unchanged. Chronic consolidation in the left upper and left lower lobe with bronchial thickening is unchanged and could be due to post radiation changes. Please correlate with patient's history. 2. There is a small area of patchy density in the right upper lobe medially which could be due to an area of atelectasis or infiltrate which has developed since the previous exam. This however is less than 1 cm. 3. No evidence of pulmonary embolus. Dictated by: Froilan Grajeda MD 01/26/2020 12:58 Froilan Grajeda MD in [place] 01/26/2020 12:58
--- NOTE | 2020-01-26 11:15 | PC.NURSE ---
1115-per cande in [facility] pt to ct scan to check for pe and venous doppler for dvt
--- NOTE | 2020-01-26 11:15 | CA_ITS ---
APPROVED REPORT Bilateral Lower Extremity Venous Study for DVT. Upholsterer Helper: JENINFER MeehanT Indications Lower Extremity Pain: Bilateral Lower Extremity Edema: Bilateral Shortness of breath Pt has lung cancer Risk Factors Obesity Malignancy Medications Plavix Vein Imaging CFV (R): compressive, spontaneous, phasic, augmentation FEM (R): compressive, spontaneous, phasic, augmentation POP (R): compressive, spontaneous, phasic, augmentation PTV (R): Compressible GSV (R): Compressible Peroneals (R):Compressible GAS (R): Compressible CFV (L): compressive, spontaneous, phasic, augmentation FEM (L): compressive, spontaneous, phasic, augmentation POP (L): compressive, spontaneous, phasic, augmentation PTV (L): Compressible GSV (L): Partially Compressible Peroneals (L):Compressible GAS (L): Compressible Findings Study suggests no evidence of DVT of the bilateral lower extremities. Study suggests no evidence of SVT of the bilateral lower extremities. Conclusion Study suggests no evidence of DVT of the bilateral lower extremities. Study suggests no evidence of SVT of the bilateral lower extremities. Critical Notification Physician Notified Date: 01/26/2020 Time: 11:47 Physician Name: Larissa Saeed Electronically signed by : Froilan Grajeda MD 01/26/2020 16:46:41
[2020-01-26 11:26] LABS: Thyroid Stimulating Hormone 2.27 uIU/mL (0.465-4.68)
--- NOTE | 2020-01-26 13:15 | PC.NURSE ---
1315-pt states he wants to get treatment 01/27/20.
--- NOTE | 2020-01-26 16:04 | PC.NURSE ---
1300- pt negative for dvt and pe; per dr zimmerman pt ok to get treatment today or tomorrow.
[2020-01-27 14:13] LABS: Adrenocorticotropic Hormone 9.5 pg/mL (7.2-63.3)
== END 2020-01-26 13:15 | disposition home or self-care (01) ==
LOC: INF 10:08
PROVIDERS: Visit Provider Internal Medicine Medical Oncology
DX: C34.92 Malignant neoplasm of unspecified part of left bronchus or lung (principal); C34.32 Malignant neoplasm of lower lobe, left bronchus or lung
CPT/HCPCS: 71275; 80053; 82024; 82533; 84443; 85025; 93970; Q9967

== ENCOUNTER 2020-01-27 10:23 | Outpatient (CLI) | payer BC, SELFPAY ==
[2020-01-27 11:00] VITALS: BP 109/66; PULSE 71; RESP 18; TEMP 36.4; O2SAT 98
[2020-01-27 11:15] VITALS: BP 110/67; PULSE 69; RESP 18
[2020-01-27 11:30] VITALS: BP 121/61; RESP 18
[2020-01-27 11:45] VITALS: BP 118/71; PULSE 62; RESP 18
[2020-01-27 12:12] VITALS: BP 107/80; PULSE 74; RESP 18
== END 2020-01-27 12:12 | disposition home or self-care (01) ==
LOC: INF 10:23
PROVIDERS: Visit Provider Internal Medicine Medical Oncology
DX: Z51.11 Encounter for antineoplastic chemotherapy (principal); C34.92 Malignant neoplasm of unspecified part of left bronchus or lung; C34.32 Malignant neoplasm of lower lobe, left bronchus or lung
CPT/HCPCS: 96413; J9173

== ENCOUNTER 2020-02-09 12:53 | Outpatient (CLI) | payer BC, SELFPAY ==
[2020-02-09 12:53] VITALS: BMI 39.6
[2020-02-09 13:05] LABS: Eosinophils # 0.1 K/mm3 (0.0-0.4); Eosinophils % 3.3 % (0.1-12.0); Hematocrit 36.4 % (42.0-52.0); Hemoglobin 12.5 g/dL (14.1-18.0); Lymphocytes # 1.1 K/mm3 (0.7-4.5); Lymphocytes % 24.8 % (10-50); Mean Corpuscular HGB Conc 34.2 g/dL (31.8-35.4); Mean Corpuscular Hemoglobin 32.9 pg (27.0-31.2); Mean Corpuscular Volume 96.1 fl (80-94); Mean Platelet Volume 7.7 fl (7.4-10.4); Monocytes # 0.5 K/mm3 (0.1-1.0); Monocytes % 11.8 % (1.7-9.3); Neutrophils # 2.5 K/mm3 (1.8-7.8); Neutrophils % 59.2 % (37.0-80.0); Platelet Count 248 K/mm3 (142-424); Red Blood Count 3.79 M/mm3 (4.60-6.20); Red Cell Distribution Width 13.9 % (11.5-17.5); White Blood Count 4.3 K/mm3 (4.8-10.8)
[2020-02-09 13:45] VITALS: BP 119/59; PULSE 79; RESP 18; TEMP 36.7; O2SAT 95
[2020-02-09 14:15] VITALS: BP 131/70; PULSE 65; RESP 20
[2020-02-09 14:45] VITALS: BP 149/90; PULSE 77; RESP 20
[2020-02-09 15:00] VITALS: BP 127/71; PULSE 73; RESP 20; O2SAT 95
== END 2020-02-09 15:00 | disposition home or self-care (01) ==
LOC: INF 12:53
PROVIDERS: Visit Provider Internal Medicine Medical Oncology
DX: C34.90 Malignant neoplasm of unspecified part of unspecified bronchus or lung (principal)
CPT/HCPCS: 85025; 96413; J9173

== ENCOUNTER 2020-02-23 09:51 | Outpatient (CLI) | payer BC, SELFPAY ==
[2020-02-23 09:54] VITALS: BMI 34.9
[2020-02-23 10:03] LABS: Basophils % 0.4 % (0.1-2.0); Eosinophils # 0.2 K/mm3 (0.0-0.4); Hematocrit 39.7 % (42.0-52.0); Hemoglobin 14.1 g/dL (14.1-18.0); Lymphocytes # 1.2 K/mm3 (0.7-4.5); Lymphocytes % 16.1 % (10-50); Mean Corpuscular HGB Conc 35.6 g/dL (31.8-35.4); Mean Corpuscular Volume 95.5 fl (80-94); Mean Platelet Volume 7.3 fl (7.4-10.4); Monocytes # 0.6 K/mm3 (0.1-1.0); Monocytes % 7.9 % (1.7-9.3); Neutrophils # 5.6 K/mm3 (1.8-7.8); Neutrophils % 73.6 % (37.0-80.0); Platelet Count 251 K/mm3 (142-424); Red Blood Count 4.15 M/mm3 (4.60-6.20); Red Cell Distribution Width 13.8 % (11.5-17.5); White Blood Count 7.6 K/mm3 (4.8-10.8)
[2020-02-23 10:28] LABS: Chloride 106 mmol/L (98-107); Potassium 3.7 mmoL/L (3.5-5.1); Sodium 141 mmol/L (136-145)
[2020-02-23 10:31] LABS: Alanine Aminotransferase 25 U/L (12-78); Albumin Level 4.3 g/dl (3.5-5.0); Albumin/Globulin Ratio 1.4 (1.1-1.8); Alkaline Phosphatase 74 U/L (38-126); Anion Gap 11.7 mEq/L (5-15); Aspartate Amino Transferase 42 U/L (17-59); Bilirubin,Total 0.7 mg/dl (0.2-1.3); Blood Urea Nitrogen 18 mg/dl (9-20); Calcium 9.7 mg/dl (8.4-10.2); Carbon Dioxide 27 mmol/L (22.0-30.0); Creatinine Clearance Estimated 110 mL/min (50-200); Estimated Glomerular Filt Rate 77 ml/min (>60); GFR (African American) 93 ML/MIN (>60); Globulin 3.1 g/dL (1.3-3.2); Glucose 134 mg/dl (74-100); Total Protein,Serum 7.4 g/dl (6.3-8.2)
[2020-02-23 11:15] VITALS: BP 125/73; PULSE 73; RESP 18; O2SAT 98
[2020-02-23 11:30] VITALS: BP 103/53; PULSE 76; RESP 20
[2020-02-23 12:00] VITALS: BP 106/60; PULSE 74; RESP 20
[2020-02-23 12:25] VITALS: BP 112/62; PULSE 65; RESP 20
== END 2020-02-23 12:25 | disposition home or self-care (01) ==
LOC: INF 09:51
PROVIDERS: Visit Provider Internal Medicine Medical Oncology
DX: Z51.11 Encounter for antineoplastic chemotherapy (principal); C34.92 Malignant neoplasm of unspecified part of left bronchus or lung; C34.32 Malignant neoplasm of lower lobe, left bronchus or lung
CPT/HCPCS: 80053; 85025; 96413; J9173

== ENCOUNTER 2020-03-08 09:50 | Outpatient (CLI) | payer BC, SELFPAY ==
[2020-03-08 09:57] VITALS: BMI 37.8
[2020-03-08 10:09] LABS: Basophils % 0.8 % (0.1-2.0); Eosinophils # 0.1 K/mm3 (0.0-0.4); Eosinophils % 2.7 % (0.1-12.0); Hematocrit 39.4 % (42.0-52.0); Lymphocytes # 0.9 K/mm3 (0.7-4.5); Mean Corpuscular HGB Conc 35.6 g/dL (31.8-35.4); Mean Corpuscular Volume 92.6 fl (80-94); Mean Platelet Volume 7.2 fl (7.4-10.4); Monocytes # 0.3 K/mm3 (0.1-1.0); Monocytes % 6.1 % (1.7-9.3); Neutrophils # 3.9 K/mm3 (1.8-7.8); Neutrophils % 74.3 % (37.0-80.0); Platelet Count 245 K/mm3 (142-424); Red Blood Count 4.26 M/mm3 (4.60-6.20); Red Cell Distribution Width 13.6 % (11.5-17.5); White Blood Count 5.3 K/mm3 (4.8-10.8)
[2020-03-08 10:50] VITALS: BP 99/56; PULSE 80; RESP 18; TEMP 36.4; O2SAT 95
[2020-03-08 11:05] VITALS: BP 101/58; PULSE 75; RESP 20
[2020-03-08 11:50] VITALS: BP 118/61; PULSE 75; RESP 18
[2020-03-08 12:07] VITALS: BP 94/53; PULSE 69; RESP 18
== END 2020-03-08 12:07 | disposition home or self-care (01) ==
LOC: INF 09:55
PROVIDERS: Visit Provider Internal Medicine Medical Oncology
DX: Z51.11 Encounter for antineoplastic chemotherapy (principal); C34.92 Malignant neoplasm of unspecified part of left bronchus or lung
CPT/HCPCS: 85025; 96413; J9173

== ENCOUNTER 2020-03-22 09:36 | Outpatient (CLI) | payer BC, SELFPAY ==
[2020-03-22 09:37] VITALS: BMI 37.8
[2020-03-22 09:53] LABS: Eosinophils # 0.1 K/mm3 (0.0-0.4); Eosinophils % 2.9 % (0.1-12.0); Hematocrit 43.6 % (42.0-52.0); Hemoglobin 13.9 g/dL (14.1-18.0); Lymphocytes # 0.7 K/mm3 (0.7-4.5); Lymphocytes % 21.5 % (10-50); Mean Corpuscular Hemoglobin 31.6 pg (27.0-31.2); Mean Corpuscular Volume 98.8 fl (80-94); Mean Platelet Volume 7.6 fl (7.4-10.4); Monocytes # 0.3 K/mm3 (0.1-1.0); Monocytes % 9.6 % (1.7-9.3); Neutrophils # 2.1 K/mm3 (1.8-7.8); Platelet Count 235 K/mm3 (142-424); Red Blood Count 4.41 M/mm3 (4.60-6.20); Red Cell Distribution Width 13.4 % (11.5-17.5); White Blood Count 3.2 K/mm3 (4.8-10.8)
[2020-03-22 09:58] LABS: Chloride 104 mmol/L (98-107); Sodium 141 mmol/L (136-145)
[2020-03-22 09:59] LABS: Potassium 3.9 mmoL/L (3.5-5.1)
[2020-03-22 10:01] LABS: Alanine Aminotransferase 20 U/L (12-78); Albumin Level 4.2 g/dl (3.5-5.0); Albumin/Globulin Ratio 1.4 (1.1-1.8); Alkaline Phosphatase 60 U/L (38-126); Anion Gap 9.9 mEq/L (5-15); Aspartate Amino Transferase 25 U/L (17-59); Bilirubin,Total 0.7 mg/dl (0.2-1.3); Blood Urea Nitrogen 18 mg/dl (9-20); Calcium 9.2 mg/dl (8.4-10.2); Carbon Dioxide 31 mmol/L (22.0-30.0); Creatinine Clearance Estimated 111 mL/min (50-200); Estimated Glomerular Filt Rate 69 ml/min (>60); GFR (African American) 83 ML/MIN (>60); Glucose 99 mg/dl (74-100); Total Protein,Serum 7.2 g/dl (6.3-8.2)
[2020-03-22 10:42] LABS: Thyroid Stimulating Hormone 2.26 uIU/mL (0.465-4.68)
[2020-03-22 11:08] VITALS: BP 103/67; PULSE 67; RESP 20; TEMP 36.2; O2SAT 97
[2020-03-22 11:20] VITALS: BP 110/62; PULSE 70; RESP 18
[2020-03-22 11:35] VITALS: BP 107/63; PULSE 63; RESP 20
[2020-03-22 11:50] VITALS: BP 98/56; PULSE 69; RESP 18
[2020-03-22 12:05] VITALS: BP 100/56; PULSE 71; RESP 18
[2020-03-22 12:15] VITALS: BP 102/62; PULSE 71; RESP 18
[2020-03-23 14:33] LABS: Adrenocorticotropic Hormone 37.2 pg/mL (7.2-63.3)
== END 2020-03-22 12:15 | disposition home or self-care (01) ==
PROVIDERS: Visit Provider Internal Medicine Medical Oncology
DX: Z51.11 Encounter for antineoplastic chemotherapy (principal); C34.92 Malignant neoplasm of unspecified part of left bronchus or lung
CPT/HCPCS: 80053; 82024; 82533; 84443; 85025; 96413; J9173

== ENCOUNTER 2020-04-05 09:55 | Outpatient (CLI) | payer BC, SELFPAY ==
[2020-04-05 09:57] VITALS: BMI 39.9
[2020-04-05 10:10] LABS: Basophils % 0.9 % (0.1-2.0); Eosinophils # 0.1 K/mm3 (0.0-0.4); Eosinophils % 2.2 % (0.1-12.0); Hematocrit 41.6 % (42.0-52.0); Hemoglobin 14.2 g/dL (14.1-18.0); Lymphocytes % 21.5 % (10-50); Mean Corpuscular Hemoglobin 31.9 pg (27.0-31.2); Mean Corpuscular Volume 93.8 fl (80-94); Mean Platelet Volume 7.1 fl (7.4-10.4); Monocytes # 0.3 K/mm3 (0.1-1.0); Neutrophils # 3.2 K/mm3 (1.8-7.8); Neutrophils % 68.4 % (37.0-80.0); Platelet Count 238 K/mm3 (142-424); Red Blood Count 4.44 M/mm3 (4.60-6.20); White Blood Count 4.7 K/mm3 (4.8-10.8)
[2020-04-05 10:51] VITALS: BP 115/57; PULSE 57; RESP 18; TEMP 36.4; O2SAT 96
[2020-04-05 11:05] VITALS: BP 125/49; PULSE 74; RESP 18
[2020-04-05 11:30] VITALS: BP 110/63; PULSE 67; RESP 18
[2020-04-05 11:45] VITALS: BP 104/61; PULSE 69; RESP 18
[2020-04-05 12:03] VITALS: BP 107/68; PULSE 75; RESP 18
== END 2020-04-05 12:03 | disposition home or self-care (01) ==
LOC: INF 09:55
PROVIDERS: Visit Provider Internal Medicine Medical Oncology
DX: Z51.11 Encounter for antineoplastic chemotherapy (principal); C34.92 Malignant neoplasm of unspecified part of left bronchus or lung
CPT/HCPCS: 85025; 96413; J9173

== ENCOUNTER 2020-04-10 10:39 | Emergency (ER) | payer BC, SELFPAY ==
[2020-04-10 10:47] VITALS: BP 117/69; PULSE 73; RESP 16; TEMP 36.8; O2SAT 98
--- NOTE | 2020-04-10 11:09 | XR_ITS ---
PROCEDURE: XR KNEE RT 3V CLINICAL INDICATION: Chronic knee pain COMPARISON: CR XR KNEE RT 3V from 01/20/2020 FINDINGS: No fracture or dislocation. No lytic or blastic change. There is normal mineralization. There is mild joint space narrowing medially and there is mild spurring of the tibial spines. There is mild narrowing of the patellofemoral space. Again noted is a small effusion in the suprapatellar bursa basically unchanged in size and appearance from the previous study. There is no loose body. IMPRESSION: Mild degenerate change with stable small effusion suprapatellar bursa, the fluid collection measures approximately 1.9 x 3.7 cm on the lateral view of the knee Dictated by: Dr. Yonny Martines MD 04/10/2020 12:20 Dr. Yonny Martines MD in [place] 04/10/2020 12:20
[2020-04-10 11:10] VITALS: BP 108/75; PULSE 78; RESP 20; O2SAT 95
--- NOTE | 2020-04-10 11:13 | HMH.EDEXTP ---
ED Disposition Clinical Impression: Arthritis of right knee Chronic low back pain Qualifiers: Back pain laterality: bilateral Sciatica presence: without sciatica Qualified Code(s): M54.5 - Low back pain; G89.29 - Other chronic pain Disposition: Home, Self-Care Condition on Discharge: Good Instructions: DI for Chronic Pain -- Adult Referrals: Lyndon Medina [Primary Care Provider] - - Critical Care Critical Care Time: No Attestation: On 04/10/20, the high probability of a clinically significant, sudden or life threatening deterioration of the following system(s) required my full and direct attention, intervention and personal management. The time I documented below is in addition to time spent performing reported procedures but includes the following listed in this critical care notation. Medical Decision Making - Medical Records Medical records reviewed: Yes: I reviewed the patient's medical records. - [place] Inquiry Pt receiving controlled substance: No Vital Signs: 04/10/20 10:47 04/10/20 11:10 04/10/20 11:30 Temperature 98.2 F Temperature Source Oral Pulse Rate [Right Brachial] 73 78 76 Respiratory Rate 16 20 18 Blood Pressure [Right Arm] 117/69 108/75 L 114/67 Blood Pressure Mean [Right Arm] 85 86 82 Blood Pressure Source [Right Arm] Automatic Cuff Automatic Cuff Automatic Cuff Blood Pressure Position [Right Arm] Sitting Sitting Sitting 02 Sat by Pulse Oximetry 98 95 96 Oxygen Delivery Method Room Air Room Air Room Air Orders (Tests/Meds): ED MEDICATIONS Discontinued Medications Generic Name Dose Route Start Last Admin Trade Name Freq PRN Reason Stop Dose Admin Acetaminophen 1,000 mg 04/10/20 11:14 04/10/20 11:19 Acetaminophen 500mg Tab PO 04/10/20 11:15 1,000 mg ONCE ONE Administration Morphine Sulfate 4 mg 04/10/20 11:09 04/10/20 11:20 Morphine 2mg/Ml Syringe IM 04/10/20 11:10 Not Given ONCE ONE ORDERS Category Date Time Status XR knee RT 3V Stat Exams 04/10/20 11:09 Taken - Radiology Data #1 Image(s): Knee Image Reviewed: Yes I reviewed the patient's radiology results, Yes I reviewed the patient's radiology image Patient is chronic degenerative changes. No fracture or dislocation. - Reevaluation(s) Time: 11:55 Reevaluation #1: On reevaluation, the patient is feeling slightly better. He does have evidence of severe chronic arthritis. Patient is currently enrolled in pain management. He is taking multiple Percocets per day. I did explain to the patient will likely require knee replacement. He is to take his pain medication as prescribed by his pain management physician. Patient is to follow-up with PCP as well. Given strict return precautions. Verbalized understanding. Medical Decision Narrative: 59-year-old male presented to the emergency department with pain in his right knee and back. Both are chronic in nature. No evidence of new injury. Patient treated symptomatically. X-ray obtained. Extremity Problem HPI - General Chief complaint: Extremity Injury, Lower Stated complaint: back pain and right knee swollen Time Seen by Provider: 04/10/20 10:50 Mode of Arrival: Ambulatory Limitations: No Limitations Description of Symptoms (Recalled from ER Triage Doc. by RN): Patient report R knee swelling and right lower back pain that started 2 days ago. no known injury. - History of Present Illness HPI Narrative: This is a 59-year-old male presented to the emergency department with pain in his right knee and back. The patient has a history of chronic pain issues. He has been having them ever since he was diagnosed with lung cancer. The patient has a history of chronic low back pain as well as bilateral knee pain. The patient got concerned because over the weekend he was having some worsening right knee pain. He states that he was walking a little more than normal, however denies any direct injury. States that the pain is lo
[2020-04-10 11:30] VITALS: BP 114/67; PULSE 76; RESP 18; O2SAT 96
[2020-04-10 11:55] VITALS: BP 108/69; PULSE 79; RESP 18; TEMP 36.8; O2SAT 96
== END 2020-04-10 12:00 | disposition home or self-care (01) ==
PROVIDERS: Emergency Provider Emergency Medicine; PCP Pediatrics
DX: M17.11 Unilateral primary osteoarthritis, right knee (principal); M54.5 Low back pain; G89.29 Other chronic pain; C34.90 Malignant neoplasm of unspecified part of unspecified bronchus or lung; E11.9 Type 2 diabetes mellitus without complications; J44.9 Chronic obstructive pulmonary disease, unspecified; E78.5 Hyperlipidemia, unspecified; I10 Essential (primary) hypertension; I25.10 Atherosclerotic heart disease of native coronary artery without angina pectoris; I25.2 Old myocardial infarction; Z87.891 Personal history of nicotine dependence; Z88.6 Allergy status to analgesic agent; Z79.899 Other long term (current) drug therapy
CPT/HCPCS: 73562; 99282

== ENCOUNTER → 2020-04-16 08:54 | Outpatient (CLI) | payer BC, SELFPAY ==
[2020-04-16 10:15] LABS: Chloride 104 mmol/L (98-107); Sodium 140 mmol/L (136-145)
[2020-04-16 10:18] LABS: Alanine Aminotransferase 32 U/L (12-78); Albumin Level 4.2 g/dl (3.5-5.0); Albumin/Globulin Ratio 1.5 (1.1-1.8); Alkaline Phosphatase 61 U/L (38-126); Aspartate Amino Transferase 38 U/L (17-59); Bilirubin,Total 0.6 mg/dl (0.2-1.3); Blood Urea Nitrogen 12 mg/dl (9-20); Carbon Dioxide 28 mmol/L (22.0-30.0); Estimated Glomerular Filt Rate 69 ml/min (>60); GFR (African American) 83 ML/MIN (>60); Globulin 2.8 g/dL (1.3-3.2); Glucose 114 mg/dl (74-100)
--- NOTE | 2020-04-16 10:18 | CT_ITS ---
PROCEDURE: CT ABDOMEN PELVIS W CON CLINICAL INDICATION: Lung cancer, follow-up lung cancer COMPARISON: CT CT ABDOMEN W CON from 05/27/[address] ABDOMEN PELVIS W CON from 11/14/[address] ANGIO CHEST from 01/26/[address] CHEST W CON from 04/16/2020 TECHNIQUE: IV Contrast: 75ML Isovue 370 Oral Contrast None Axial images obtained with sagittal and coronal reformats. All CT scans at the facility use one or more dose reduction, viz: automated exposure control, ma/kV adjustment per patient size (including targeted exams where dose is matched to indication, i.e. head), or iterative reconstruction technique. FINDINGS: The spleen, adrenal glands, and kidneys have an unremarkable appearance. Multilocular hypodense 3 cm mass once again noted in the pancreatic head not significantly changed. There has been a prior cholecystectomy. In the central aspect of the liver within the anterior segment of the right hepatic lobe there is a vague area of enhancement measuring approximately 4 by 1.4 cm possibly due to an area of focal fatty sparing. probably not significantly changed. There is mild dilatation of the infrarenal abdominal aorta at 2.6 cm not significantly changed. No intestinal obstruction or free air. No evidence of appendicitis or diverticulitis. No pelvic mass or abnormal fluid collection is evident. No acute bony findings. IMPRESSION: Stable CT appearance of the abdomen and pelvis. No change in the multilocular hypodense mass of the pancreatic head and a vague area of enhancement of the right hepatic lobe anteriorly. Continued follow-up suggested. Dictated by: Froilan Grajeda MD 04/17/2020 11:46 Froilan Grajeda MD in [place] 04/17/2020 11:46
--- NOTE | 2020-04-16 10:18 | CT_ITS ---
PROCEDURE: CT CHEST W CON CLINCAL INDICATION: Lung cancer Follow-up lung cancer COMPARISON: CT CT CHEST WO/W CON from 05/27/[address] CHEST W CON from 08/31/[address] ANGIO CHEST from 01/26/2020 TECHNIQUE: IV Contrast: 75ml Isovue 370 Axial images obtained with sagittal and coronal reformats. All CT scans at the facility use one or more dose reduction, viz: automated exposure control, ma/kV adjustment per patient size (including targeted exams where dose is matched to indication, i.e. head), or iterative reconstruction technique. FINDINGS: HEART AND MEDIASTINAL STRUCTURES: Increased soft tissue density in the AP window is once again noted and is not significantly changed to slightly less apparent. No new areas of adenopathy or soft tissue mass of the mediastinum or stephanie is evident. LUNGS AND PLEURAL SPACES: Bullous emphysematous changes with scattered areas of scarring are once again noted. There is a 4 mm noncalcified nodule in the right upper lobe anteriorly not significantly changed. Image 30 series 4. There is persistent parenchymal opacity within the left upper lobe posteriorly and the left lower lobe superiorly. This is slightly greater in the perihilar region. Has the patient had prior radiation therapy to this area. BONY STRUCTURES: No acute bony abnormalities apparent. UPPER ABDOMEN: See abdomen report ADDITIONAL FINDINGS: No other significant abnormalities. IMPRESSION: The AP window mass is unchanged to somewhat less apparent. There is increasing opacification of the left perihilar region within the superior segment of left lower lobe and the inferior aspect of the left upper lobe. Has the patient had radiation to this region? If not then, inflammatory or infectious etiology or tumor spread to this region is a consideration. Dictated by: Froilan Grajeda MD 04/17/2020 11:39 Froilan Grajeda MD in [place] 04/17/2020 11:39
[2020-04-16 10:48] LABS: Thyroid Stimulating Hormone 1.34 uIU/mL (0.465-4.68)
[2020-04-16 11:13] LABS: Basophils % 0.9 % (0.1-2.0); Eosinophils # 0.1 K/mm3 (0.0-0.4); Hematocrit 41.8 % (42.0-52.0); Hemoglobin 13.7 g/dL (14.1-18.0); Lymphocytes # 0.8 K/mm3 (0.7-4.5); Lymphocytes % 21.1 % (10-50); Mean Corpuscular HGB Conc 32.8 g/dL (31.8-35.4); Mean Corpuscular Hemoglobin 31.9 pg (27.0-31.2); Mean Corpuscular Volume 97.3 fl (80-94); Mean Platelet Volume 7.7 fl (7.4-10.4); Monocytes # 0.4 K/mm3 (0.1-1.0); Monocytes % 9.7 % (1.7-9.3); Neutrophils # 2.5 K/mm3 (1.8-7.8); Neutrophils % 65.3 % (37.0-80.0); Platelet Count 228 K/mm3 (142-424); Red Blood Count 4.29 M/mm3 (4.60-6.20); Red Cell Distribution Width 14.5 % (11.5-17.5); White Blood Count 3.9 K/mm3 (4.8-10.8)
[2020-04-18 10:46] LABS: Adrenocorticotropic Hormone 8.5 pg/mL (7.2-63.3)
== END ==
PROVIDERS: PCP Pediatrics; Visit Provider Internal Medicine Medical Oncology
DX: C34.92 Malignant neoplasm of unspecified part of left bronchus or lung (principal)
CPT/HCPCS: 36415; 71260; 74177; 80053; 82024; 82533; 84443; 85025; Q9967

== ENCOUNTER 2020-04-16 11:38 | Emergency (ER) | payer BC, SELFPAY ==
--- NOTE | 2020-04-16 11:52 | HMH.EDEXTP ---
ED Disposition Clinical Impression: Suprapatellar effusion of knee Disposition: Home, Self-Care Condition on Discharge: Good Instructions: DI for Knee Pain, DI for Knee Effusion Referrals: Ayla Hurd MD [Physician] - 7-14 days - Critical Care Critical Care Time: No Attestation: On , the high probability of a clinically significant, sudden or life threatening deterioration of the following system(s) required my full and direct attention, intervention and personal management. The time I documented below is in addition to time spent performing reported procedures but includes the following listed in this critical care notation. Medical Decision Making - Medical Records Medical records reviewed: Yes: I reviewed the patient's medical records. - [place] Inquiry Pt receiving controlled substance: No Medical Decision Narrative: Patient is already on narcotics and using anti-inflammatories and Tylenol. There are no signs of septic joint/bursitis or new trauma that would prompt repeat x-ray at this time. He has an appointment scheduled in approximately 2 weeks with orthopedics. Recommended compression dressing and given Saeed bandage here. Discharged home to follow-up outpatient with Ortho as planned. Extremity Problem HPI - General Stated complaint: rt knee pain and back pain Time Seen by Provider: 04/16/20 11:52 Mode of Arrival: Ambulatory Source of Information: Patient Limitations: No Limitations - History of Present Illness HPI Narrative: This is a 59-year-old male with a past medical history significant for chronic pain currently enrolled in a pain clinic receiving Percocets for chronic back pain who presents to the emergency department for progressively worsening right knee pain over the last several months. He has had several x-rays, the most recent 2 days ago, also I am able to see 1 from 6 days ago, 1 back in January. It appears he has a suprapatellar effusion and some arthritic changes. He has not had any new falls or trauma. He has not had any fevers, redness. He states that the knee pain seems to be progressive in nature, exacerbating factor is walking.. He takes narcotics and anti-inflammatories and Tylenol with no persistent relief of symptoms. He has not tried compression bandages. - Related Data Home Medications Medication Instructions Recorded Confirmed Dicyclomine HCl [Bentyl 10mg 10 mg PO BID 04/29/19 03/22/20 capsule] clonazepam 0.5 mg tablet 0.5 mg PO BID tab 10/06/19 03/22/20 gabapentin 800 mg tablet 800 mg PO TID 10/06/19 03/22/20 Ergocalciferol (Vitamin D2) See Rx Instructions .ROUTE .COMPLEX 11/17/19 03/22/20 [Drisdol] amitriptyline 50 mg tablet 50 mg PO QHS tab 01/26/20 03/22/20 glipizide 10 mg tablet, extended 10 mg PO DAILY tab 01/26/20 03/22/20 release 24 hr metoprolol tartrate 25 mg tablet 25 mg PO BID tab 01/26/20 03/22/20 Previous Rx's Medication Instructions Recorded metformin 850 mg tablet 850 mg PO BID #180 tab 06/02/18 lansoprazole 30 mg capsule,delayed 30 mg PO QHS #90 cap 11/03/18 release lisinopril 5 mg tablet 5 mg PO DAILY #90 tab 08/22/19 Tizanidine HCl [Zanaflex 4mg 4 mg PO TID PRN 12 Days #45 tab 10/02/19 tab] lovastatin 20 mg tablet 20 mg PO QHS #90 tab 11/04/19 Hydrocod/Acet 5/325 mg [[place] 1 tab PO Q6HP PRN #10 tab 12/01/19 5/325mg tablet] isosorbide mononitrate 30 mg 30 mg PO DAILY #90 tab 12/08/19 tablet,extended release 24 hr Indomethacin [Indocin 25mg capsule] 25 mg PO TID 10 Days #30 01/20/20 furosemide 40 mg tablet 40 mg PO DIRECTED #45 tab 01/26/20 clopidogrel 75 mg tablet 75 mg PO DAILY #30 tab 03/26/20 Allergies Allergy/AdvReac Type Severity Reaction Status Date / Time naproxen [NAPROXEN] Allergy Mild NA-NAUSEA/V Verified 04/10/20 10:57 OMITING tramadol [TRAMADOL] Allergy Mild NA-NAUSEA Verified 04/10/20 10:57 [facility] History - Hepatitis A Screen Attestation statement:: This patient has been scr
[2020-04-16 11:55] VITALS: BP 122/78; PULSE 66; RESP 17; O2SAT 99; BMI 34.9
[2020-04-16 12:06] VITALS: BP 122/78; PULSE 66; RESP 17; TEMP 36.6; O2SAT 99
== END 2020-04-16 12:08 | disposition home or self-care (01) ==
PROVIDERS: Emergency Provider Emergency Medicine
DX: M25.461 Effusion, right knee (principal); J44.9 Chronic obstructive pulmonary disease, unspecified; I25.10 Atherosclerotic heart disease of native coronary artery without angina pectoris; Z86.73 Personal history of transient ischemic attack (TIA), and cerebral infarction without residual deficits; E78.5 Hyperlipidemia, unspecified; I10 Essential (primary) hypertension; G43.709 Chronic migraine without aura, not intractable, without status migrainosus; M81.0 Age-related osteoporosis without current pathological fracture; I25.2 Old myocardial infarction; N28.9 Disorder of kidney and ureter, unspecified; C34.90 Malignant neoplasm of unspecified part of unspecified bronchus or lung; Z87.891 Personal history of nicotine dependence; Z79.899 Other long term (current) drug therapy
CPT/HCPCS: 99281

== ENCOUNTER → 2020-04-19 11:00 | Outpatient (CLI) | payer BC, SELFPAY ==
[2020-04-19 11:02] VITALS: BMI 36.3
[2020-04-19 11:19] LABS: Basophils % 0.6 % (0.1-2.0); Eosinophils # 0.1 K/mm3 (0.0-0.4); Eosinophils % 2.8 % (0.1-12.0); Hematocrit 39.9 % (42.0-52.0); Hemoglobin 13.7 g/dL (14.1-18.0); Lymphocytes # 0.9 K/mm3 (0.7-4.5); Mean Corpuscular HGB Conc 34.3 g/dL (31.8-35.4); Mean Corpuscular Hemoglobin 32.6 pg (27.0-31.2); Mean Platelet Volume 7.8 fl (7.4-10.4); Monocytes # 0.4 K/mm3 (0.1-1.0); Neutrophils % 57.6 % (37.0-80.0); Platelet Count 234 K/mm3 (142-424); Red Blood Count 4.19 M/mm3 (4.60-6.20); White Blood Count 3.4 K/mm3 (4.8-10.8)
[2020-04-19 11:28] LABS: Chloride 106 mmol/L (98-107); Potassium 3.9 mmoL/L (3.5-5.1); Sodium 139 mmol/L (136-145)
[2020-04-19 11:31] LABS: Alanine Aminotransferase 27 U/L (12-78); Albumin Level 4.2 g/dl (3.5-5.0); Albumin/Globulin Ratio 1.5 (1.1-1.8); Alkaline Phosphatase 58 U/L (38-126); Anion Gap 10.9 mEq/L (5-15); Aspartate Amino Transferase 33 U/L (17-59); Bilirubin,Total 0.7 mg/dl (0.2-1.3); Blood Urea Nitrogen 22 mg/dl (9-20); Carbon Dioxide 26 mmol/L (22.0-30.0); Creatinine Clearance Estimated 98 mL/min (50-200); Estimated Glomerular Filt Rate 62 ml/min (>60); GFR (African American) 76 ML/MIN (>60); Globulin 2.8 g/dL (1.3-3.2)
[2020-04-19 11:32] LABS: Calcium 9.2 mg/dl (8.4-10.2); Glucose 107 mg/dl (74-100)
[2020-04-19 12:02] LABS: Thyroid Stimulating Hormone 2.42 uIU/mL (0.465-4.68)
[2020-04-19 12:30] VITALS: BP 96/50; PULSE 69; RESP 20; TEMP 36.4; O2SAT 95
[2020-04-19 12:45] VITALS: BP 86/49; PULSE 70; RESP 18
[2020-04-19 13:00] VITALS: BP 91/54; PULSE 70; RESP 18
[2020-04-19 13:15] VITALS: BP 103/56; PULSE 71; RESP 18
[2020-04-19 13:40] VITALS: BP 105/66; PULSE 70; RESP 18
[2020-04-20 18:57] LABS: Adrenocorticotropic Hormone 29.9 pg/mL (7.2-63.3)
== END ==
PROVIDERS: Visit Provider Internal Medicine Medical Oncology
DX: Z51.11 Encounter for antineoplastic chemotherapy (principal); C34.92 Malignant neoplasm of unspecified part of left bronchus or lung
CPT/HCPCS: 80053; 82024; 82533; 84443; 85025; 96413; J9173

== ENCOUNTER 2020-05-02 09:55 | Outpatient (CLI) | payer BC, SELFPAY ==
[2020-05-02 10:01] VITALS: BMI 40.9
[2020-05-02 10:12] LABS: Basophils # 0.1 K/mm3 (0-0.2); Basophils % 1.2 % (0.1-2.0); Eosinophils # 0.2 K/mm3 (0.0-0.4); Eosinophils % 3.8 % (0.1-12.0); Hematocrit 38.3 % (42.0-52.0); Hemoglobin 13.1 g/dL (14.1-18.0); Lymphocytes # 0.9 K/mm3 (0.7-4.5); Lymphocytes % 21.8 % (10-50); Mean Corpuscular HGB Conc 34.1 g/dL (31.8-35.4); Mean Corpuscular Hemoglobin 32.2 pg (27.0-31.2); Mean Corpuscular Volume 94.4 fl (80-94); Mean Platelet Volume 8.7 fl (7.4-10.4); Monocytes # 0.4 K/mm3 (0.1-1.0); Monocytes % 8.1 % (1.7-9.3); Neutrophils # 2.8 K/mm3 (1.8-7.8); Platelet Count 267 K/mm3 (142-424); Red Blood Count 4.06 M/mm3 (4.60-6.20); Red Cell Distribution Width 15.4 % (11.5-17.5); White Blood Count 4.3 K/mm3 (4.8-10.8)
[2020-05-02 11:10] VITALS: BP 105/49; PULSE 64; RESP 18; TEMP 36.5; O2SAT 96
[2020-05-02 11:25] VITALS: BP 108/62; PULSE 58; RESP 18
[2020-05-02 11:40] VITALS: BP 100/60; PULSE 71; RESP 18
[2020-05-02 12:22] VITALS: BP 99/54; PULSE 66; RESP 18
== END 2020-05-02 12:22 | disposition home or self-care (01) ==
LOC: INF 09:58
PROVIDERS: Visit Provider Internal Medicine Medical Oncology
DX: Z51.11 Encounter for antineoplastic chemotherapy (principal); C34.92 Malignant neoplasm of unspecified part of left bronchus or lung
CPT/HCPCS: 85025; 96413; J9173

== ENCOUNTER 2020-05-17 09:10 | Outpatient (CLI) | payer BC, SELFPAY ==
[2020-05-17 09:23] VITALS: BMI 41.3
[2020-05-17 09:45] LABS: Chloride 103 mmol/L (98-107); Potassium 3.7 mmoL/L (3.5-5.1); Sodium 140 mmol/L (136-145)
[2020-05-17 09:48] LABS: Alanine Aminotransferase 26 U/L (12-78); Albumin Level 4.2 g/dl (3.5-5.0); Albumin/Globulin Ratio 1.4 (1.1-1.8); Alkaline Phosphatase 76 U/L (38-126); Anion Gap 9.7 mEq/L (5-15); Aspartate Amino Transferase 30 U/L (17-59); Bilirubin,Total 1.1 mg/dl (0.2-1.3); Blood Urea Nitrogen 22 mg/dl (9-20); Calcium 9.3 mg/dl (8.4-10.2); Carbon Dioxide 31 mmol/L (22.0-30.0); Creatinine Clearance Estimated 97 mL/min (50-200); Estimated Glomerular Filt Rate 57 ml/min (>60); GFR (African American) 69 ML/MIN (>60); Globulin 2.9 g/dL (1.3-3.2); Glucose 149 mg/dl (74-100); Total Protein,Serum 7.1 g/dl (6.3-8.2)
[2020-05-17 09:56] LABS: Basophils # 0.2 K/mm3 (0-0.2); Basophils % 3.7 % (0.1-2.0); Eosinophils # 0.1 K/mm3 (0.0-0.4); Eosinophils % 2.7 % (0.1-12.0); Hematocrit 46.1 % (42.0-52.0); Hemoglobin 13.5 g/dL (14.1-18.0); Lymphocytes % 25.4 % (10-50); Mean Corpuscular HGB Conc 29.4 g/dL (31.8-35.4); Monocytes # 0.5 K/mm3 (0.1-1.0); Monocytes % 13.1 % (1.7-9.3); Neutrophils # 2.4 K/mm3 (1.8-7.8); Neutrophils % 58.9 % (37.0-80.0); Platelet Count 265 K/mm3 (142-424); Red Blood Count 4.23 M/mm3 (4.60-6.20); Red Cell Distribution Width 15.3 % (11.5-17.5); White Blood Count 4.1 K/mm3 (4.8-10.8)
[2020-05-17 10:50] VITALS: BP 101/55; PULSE 64; RESP 18; TEMP 35.8
[2020-05-17 11:05] VITALS: BP 102/52; PULSE 69; RESP 18
[2020-05-17 11:20] VITALS: BP 100/56; PULSE 68; RESP 18
[2020-05-17 11:35] VITALS: BP 104/60; PULSE 70; RESP 18
[2020-05-17 11:50] VITALS: BP 97/58; PULSE 75; RESP 18
== END 2020-05-17 12:10 | disposition home or self-care (01) ==
LOC: INF 09:20
PROVIDERS: Visit Provider Internal Medicine Medical Oncology
DX: Z51.11 Encounter for antineoplastic chemotherapy (principal); C34.92 Malignant neoplasm of unspecified part of left bronchus or lung
CPT/HCPCS: 80053; 85025; 96413; J9173

== ENCOUNTER → 2020-06-26 10:29 | Outpatient (CLI) | payer BC, SELFPAY ==
[2020-06-26 12:28] LABS: Coronavirus 19 IgG Antibody Negative (Negative); Coronavirus 19 IgM Antibody Negative (Negative)
== END ==
PROVIDERS: Visit Provider Surgery
DX: Z01.812 Encounter for preprocedural laboratory examination (principal); Z11.52 Encounter for screening for COVID-19; Z13.810 Encounter for screening for upper gastrointestinal disorder; K21.9 Gastro-esophageal reflux disease without esophagitis
CPT/HCPCS: 36415; 86328

== ENCOUNTER 2020-06-28 06:32 | Day surgery (SDC) | payer BC, SELFPAY ==
[2020-06-26 09:46] VITALS: BMI 38.2
[2020-06-28 06:59] VITALS: BP 118/66; PULSE 62; RESP 18; TEMP 36.1; O2SAT 98
--- NOTE | 2020-06-28 07:08 | HMH.ANESCL ---
[facility] Anesthesia Checklist - Structural Data Admitted From: Home Planned Operative Procedure/s: egd Consent for Planned Operative Procedure(s) Verified: Yes - Additional verifications Anesthesia Reactions: No Hx Blood Transfusions: No Blood Transfusion Reaction: No - Airway Assessment C-Spine Mobility Assessed: Yes TMJ Mobility Assessed: Yes Dentition: Poor Dentition - Neurological Assessment Level of Consciousness: Awake, Alert, Appropriate - Anesthesia Plan Anesthesia Risk discussed: Yes Anesthesia Plan: Verified ASA Class: III Anesthesia Type: MAC [facility] History I have reviewed the patient's past medical history: Yes Medical History: Reports:: Cancer, Chronic Obstructive Pulmonary Disease (COPD), Coronary Artery Disease, Cerebrovascular Accident, Diabetes Mellitus Type 2, Gastrointestinal Bleed, Hyperlipidemia, Hypertension, Lung Disease, Migraine, MRSA, Myocardial Infarction, Osteoporosis, Peripheral Artery Disease, Renal Insufficiency, Transient Ischemic Attacks (TIA), Ulcer Denies:: Diabetes Mellitus Type 1, Internal Pacemaker, Seizures *Have you ever received a pneumonia vaccine?: No *Have you received a flu vaccine this season?: No Other Medical History: Reports: Anemia, Arthritis, Cataracts, Chemotherapy, Osteoporosis, Radiation Therapy, Other (YAMILE, former smoker 8 months ago). Denies: Blood Transfusion Reaction Anesthesia experience/problems:: none Laterality Cases: Left: Arthroscopy Shoulder, Right: Arthroscopy Knee Other Surgeries: Yes: No Previous Surgery, Cardiac Catheterization, Cardiac Surgery, Cholecystectomy, Colonoscopy, EGD, Other. No: Pacemaker Amputation: No Fractures: No - *Social History Last grade of school completed: High school graduate Smoking Status: Former smoker Tobacco Type: cigarettes # Packs/Day (cigarettes): 1 #Yrs smoked (if former smoker): 40 Alcohol Intake: current Alcohol Intake Frequency:: a few times a month Substance Use Type: marijuana *Occupational Status:: unemployed, disabled Housing: apartment Household Members: children *Travel in the last 8 weeks: None Family Hx:: Cancer, Coronary Artery Disease, Diabetes, Heart Attack, Hyperlipidemia, Hypertension
[2020-06-28 07:10] LABS: POC Glucose,Bedside 92 (70-110)
[2020-06-28 07:23] VITALS: O2SAT 98
[2020-06-28 07:40] VITALS: BP 108/70; PULSE 77; RESP 18; TEMP 36.2; O2SAT 94
--- NOTE | 2020-06-28 07:41 | HMH.SCOPE ---
- Procedure: Date: 06/28/20 Patient Date of :: 1960 Procedure Performed:: Esophagogastroduodenoscopy with biopsy Indications:: Gastroesophageal reflux Performing Provider:: Deonte Robledo MD Referring Provider:: . Sedation:: Monitored anesthesia care Procedure:: After informed consent was obtained the patient was taken to the endoscopy suite. Sedation ensued after the patient was transferred to the left lateral decubitus position. Pulse, blood pressure, and oxygen saturation were monitored throughout the procedure. The endoscope was advanced beyond the duodenal bulb. Retroflexion within the gastric lumen was accomplished. The gastroscope was carefully removed and the patient was transferred to recovery in stable condition. Please see findings and specimens below for detail. Findings:: Gastroesophageal junction at 38 cm Mild patchy inflammation at gastroesophageal junction Mild streaking gastritis Unchanged antral diverticulum Patchy duodenitis (mild to moderate) Specimens:: Proximal duodenal biopsy Antral biopsy Biopsy of gastroesophageal junction Recommendations:: Follow-up pathology Continue proton pump inhibition Complications:: No immediate Estimated blood obtained (mL): 1
[2020-06-28 07:50] VITALS: BP 106/71; PULSE 77; RESP 18; O2SAT 92
[2020-06-28 08:00] VITALS: BP 108/61; PULSE 75; RESP 18; O2SAT 92
[2020-06-28 08:10] VITALS: BP 113/60; PULSE 76; RESP 18; O2SAT 95
== END 2020-06-28 08:13 | disposition home or self-care (01) ==
LOC: OUTP 06:33
PROVIDERS: PCP Pediatrics; Visit Provider Surgery
PROC: 0DJ08ZZ Inspection of Upper Intestinal Tract, Via Natural or Artificial Opening Endoscopic (ICD-10-PCS; CPT 43235; principal; 2020-06-28 07:30)
DX: K29.60 Other gastritis without bleeding (principal); K20.90 Esophagitis, unspecified without bleeding; K31.4 Gastric diverticulum; K29.80 Duodenitis without bleeding; Z87.19 Personal history of other diseases of the digestive system; Z85.9 Personal history of malignant neoplasm, unspecified; J44.9 Chronic obstructive pulmonary disease, unspecified; I25.10 Atherosclerotic heart disease of native coronary artery without angina pectoris; Z86.73 Personal history of transient ischemic attack (TIA), and cerebral infarction without residual deficits; E78.5 Hyperlipidemia, unspecified; I10 Essential (primary) hypertension; I25.2 Old myocardial infarction
CPT/HCPCS: 43239; 82962

== ENCOUNTER 2020-07-01 22:43 | Emergency (ER) | payer BC, SELFPAY ==
[2020-07-01 23:17] VITALS: BP 122/86; PULSE 82; RESP 16; TEMP 36.7; O2SAT 97; BMI 40.9
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
[2020-07-01 23:39] LABS: Basophils % 0.6 % (0.1-2.0); Eosinophils # 0.1 K/mm3 (0.0-0.4); Eosinophils % 1.7 % (0.1-12.0); Hematocrit 43.1 % (42.0-52.0); Hemoglobin 14.4 g/dL (14.1-18.0); Lymphocytes # 1.2 K/mm3 (0.7-4.5); Mean Corpuscular HGB Conc 33.4 g/dL (31.8-35.4); Mean Corpuscular Hemoglobin 32.3 pg (27.0-31.2); Mean Platelet Volume 7.1 fl (7.4-10.4); Monocytes # 0.5 K/mm3 (0.1-1.0); Monocytes % 7.1 % (1.7-9.3); Neutrophils # 4.5 K/mm3 (1.8-7.8); Neutrophils % 71.5 % (37.0-80.0); Platelet Count 304 K/mm3 (142-424); Red Blood Count 4.44 M/mm3 (4.60-6.20); Red Cell Distribution Width 13.4 % (11.5-17.5); White Blood Count 6.3 K/mm3 (4.8-10.8)
[2020-07-01 23:53] LABS: Alanine Aminotransferase 22 U/L (12-78); Albumin Level 4.6 g/dl (3.5-5.0); Albumin/Globulin Ratio 1.4 (1.1-1.8); Alkaline Phosphatase 80 U/L (38-126); Amylase 90 U/L (30-110); Anion Gap 11.7 mEq/L (5-15); Aspartate Amino Transferase 27 U/L (17-59); Bilirubin,Total 0.6 mg/dl (0.2-1.3); Blood Urea Nitrogen 25 mg/dl (9-20); Calcium 9.7 mg/dl (8.4-10.2); Carbon Dioxide 26 mmol/L (22.0-30.0); Chloride 101 mmol/L (98-107); Creatinine Clearance Estimated 86 mL/min (50-200); Estimated Glomerular Filt Rate 48 ml/min (>60); GFR (African American) 58 ML/MIN (>60); Globulin 3.2 g/dL (1.3-3.2); Glucose 174 mg/dl (74-100); Lipase 65 U/L (23-300); Potassium 3.7 mmoL/L (3.5-5.1); Sodium 135 mmol/L (136-145); Total Protein,Serum 7.8 g/dl (6.3-8.2)
[2020-07-01 23:59] LABS: C-Reactive Protein 4.2 mg/L (0-4)
[2020-07-02] LABS: Microscopic, Urine URINE MICROSCOPIC (MICROSCOPIC)
[2020-07-02 00:06] LABS: Erythrocyte Sedimentation Rate 23 mm/hr (0-20)
[2020-07-02 00:13] LABS: Procalcitonin 0.052 ng/mL (0.0-2.0)
--- NOTE | 2020-07-02 00:54 | HMH.EDNVD ---
ED Disposition Clinical Impression: AAA (abdominal aortic aneurysm) without rupture, Mass of pancreas Abdominal pain Qualifiers: Abdominal location: epigastric Qualified Code(s): R10.13 - Epigastric pain Disposition: Home, Self-Care Condition on Discharge: Good Instructions: DI for Acute Abdominal Pain Additional Instructions: call pcp for follow up Referrals: Lyndon Medina [Primary Care Provider] - Deonte Robledo MD [Staff Physician] - - Critical Care Critical Care Time: No Attestation: On 07/01/20, the high probability of a clinically significant, sudden or life threatening deterioration of the following system(s) required my full and direct attention, intervention and personal management. The time I documented below is in addition to time spent performing reported procedures but includes the following listed in this critical care notation. Medical Decision Making - Medical Records Medical records reviewed: Yes: I reviewed the patient's medical records. - [place] Inquiry Pt receiving controlled substance: No Vital Signs: 07/01/20 23:17 Temperature 98.0 F Temperature Source Oral Pulse Rate [Right] 82 Respiratory Rate 16 Blood Pressure [Right Arm] 122/86 Blood Pressure Mean [Right Arm] 98 Blood Pressure Source [Right Arm] Automatic Cuff Blood Pressure Position [Right Arm] Sitting 02 Sat by Pulse Oximetry 97 Oxygen Delivery Method Room Air - Lab Data Lab results reviewed: Yes: I reviewed the patient's lab results. Lab Results 07/01/20 23:25: WBC 6.3, RBC 4.44 L, Hgb 14.4, Hct 43.1, MCV 97.0 H, MCH 32.3 H, MCHC 33.4, RDW 13.4, Plt Count 304, MPV 7.1 L, Neut % (Auto) 71.5, Lymph % (Auto) 19.0, Harrison % (Auto) 7.1, Eos % (Auto) 1.7, Baso % (Auto) 0.6, Neut # (Auto) 4.5, Lymph # (Auto) 1.2, [place] # (Auto) 0.5, Eos # (Auto) 0.1, Baso # (Auto) 0.0, ESR 23 H 07/01/20 23:25: Sodium 135 L, Potassium 3.7, Chloride 101, Carbon Dioxide 26, Anion Gap 11.7, BUN 25 H, Creatinine 1.50 H, Estimated Creat Clear 86, Estimated GFR 48 L, Est GFR ( Amer) 58 L, Glucose 174 H, Calcium 9.7, Total Bilirubin 0.6, AST 27, ALT 22, Alkaline Phosphatase 80, C-Reactive Protein 4.2 H, Total Protein 7.8, Albumin 4.6, Globulin 3.2, Albumin/Globulin Ratio 1.4, Amylase 90, Lipase 65, Procalcitonin 0.052 Result diagrams: 07/01/20 23:25 07/01/20 23:25 Orders (Tests/Meds): ED MEDICATIONS Generic Name Dose Route Start Last Admin Trade Name Freq PRN Reason Stop Dose Admin Sodium Chloride 1,000 mls @ 999 mls/hr 07/01/20 23:45 07/01/20 23:57 Sod Chlor 0.9% 1000ml Bag IV 07/02/20 00:45 999 mls/hr .Q1H1M YADY Administration Sodium Chloride 8 ml 07/01/20 23:34 Sodium Chloride 0.9% 10ml Vial IV 07/31/20 23:33 NEEDED PRN dilute pepcid Discontinued Medications Generic Name Dose Route Start Last Admin Trade Name Freq PRN Reason Stop Dose Admin Famotidine 20 mg 07/01/20 23:34 07/01/20 23:57 Famotidine 20mg/2ml Vial IV 07/01/20 23:35 20 mg ONCE ONE Administration Iopamidol 75 ml 07/02/20 00:17 07/02/20 00:18 Iopamidol-370 (76%);100ml Bottle IV 07/02/20 00:18 75 ml ONCE ONE Administration Ketorolac Tromethamine 30 mg 07/01/20 23:34 07/01/20 23:57 Ketorolac 30mg/Ml Vial IV 07/01/20 23:35 30 mg ONCE ONE Administration Metoclopramide HCl 10 mg 07/01/20 23:34 07/01/20 23:57 Metoclopramide Hcl 10mg/2ml Vial IVP 07/01/20 23:35 10 mg ONCE ONE Administration Ondansetron HCl 4 mg 07/01/20 23:34 07/01/20 23:57 Ondansetron 4mg/2ml Vial IV 07/01/20 23:35 4 mg ONCE ONE Administration Sodium Chloride 10 ml 07/02/20 00:17 07/02/20 00:18 Sodium Chloride 0.9% 10ml Syr (Rad Only) IV 07/02/20 00:18 10 ml ONCE ONE Administration ORDERS Category Date Time Status CT abdomen pelvis w con Stat Cat Scan 07/01/20 23:31 Taken Urinalysis and Microscopic Stat Lab 07/01/20 23:45 Received - CT Data CT Scan: Abdomen, Pelvis Time Received: 0
[2020-07-02 01:08] VITALS: BP 134/80; PULSE 84; RESP 16; TEMP 36.7; O2SAT 98
[2020-07-02 01:11] LABS: Appearance,Urine CLEAR (Clear); Bilirubin,Urine Negative (Negative); Blood, Urine Negative (Negative); Color,Urine YELLOW (Yellow); Glucose,Urine (UA) Negative (Negative); Ketones,Urine Negative (Negative); Leukocyte Esterase,Urine Negative (Negative); Nitrate,Urine Negative (Negative); Protein,Urine Negative (Negative); Specific Gravity, Urine >= 1.030 (1.005-1.030); Urobilinogen,Urine 0.2 EU/dl (0.2)
[2020-07-02 01:22] LABS: Mucus,Urine 2+ /lpf
== END 2020-07-02 01:32 | disposition home or self-care (01) ==
PROVIDERS: Emergency Provider Emergency Medicine; PCP Pediatrics
DX: R10.13 Epigastric pain (principal); K86.9 Disease of pancreas, unspecified; I71.4 Abdominal aortic aneurysm, without rupture; J44.9 Chronic obstructive pulmonary disease, unspecified; I10 Essential (primary) hypertension; E11.9 Type 2 diabetes mellitus without complications; E78.5 Hyperlipidemia, unspecified; I25.2 Old myocardial infarction; N28.9 Disorder of kidney and ureter, unspecified; Z79.899 Other long term (current) drug therapy; Z87.891 Personal history of nicotine dependence
CPT/HCPCS: 74177; 80053; 81001; 82150; 83690; 84145; 85025; 85651; 86140; 96365; 96375; 99283; J2405; Q9967

== ENCOUNTER 2020-07-05 12:36 | Emergency (ER) | payer OTHER, SELFPAY ==
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
[2020-07-05 12:44] VITALS: BP 129/87; PULSE 60; RESP 20; TEMP 37.1; O2SAT 97
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
[2020-07-05 13:31] LABS: Basophils % 0.9 % (0.1-2.0); Eosinophils # 0.1 K/mm3 (0.0-0.4); Eosinophils % 1.5 % (0.1-12.0); Hematocrit 40.5 % (42.0-52.0); Hemoglobin 14.1 g/dL (14.1-18.0); Lymphocytes % 21.8 % (10-50); Mean Corpuscular HGB Conc 34.9 g/dL (31.8-35.4); Mean Corpuscular Hemoglobin 32.9 pg (27.0-31.2); Mean Corpuscular Volume 94.3 fl (80-94); Mean Platelet Volume 7.9 fl (7.4-10.4); Monocytes # 0.4 K/mm3 (0.1-1.0); Monocytes % 8.2 % (1.7-9.3); Neutrophils # 3.1 K/mm3 (1.8-7.8); Neutrophils % 67.7 % (37.0-80.0); Platelet Count 254 K/mm3 (142-424); Red Cell Distribution Width 13.4 % (11.5-17.5); White Blood Count 4.6 K/mm3 (4.8-10.8)
[2020-07-05 13:34] LABS: Chloride 104 mmol/L (98-107); Potassium 3.7 mmoL/L (3.5-5.1); Sodium 136 mmol/L (136-145)
[2020-07-05 13:37] VITALS: BP 144/81; PULSE 73; RESP 20; O2SAT 96
[2020-07-05 13:37] LABS: Alanine Aminotransferase 19 U/L (12-78); Albumin Level 4.4 g/dl (3.5-5.0); Albumin/Globulin Ratio 1.5 (1.1-1.8); Alkaline Phosphatase 62 U/L (38-126); Anion Gap 8.7 mEq/L (5-15); Aspartate Amino Transferase 33 U/L (17-59); Bilirubin,Total 0.8 mg/dl (0.2-1.3); Blood Urea Nitrogen 21 mg/dl (9-20); Calcium 9.5 mg/dl (8.4-10.2); Carbon Dioxide 27 mmol/L (22.0-30.0); Estimated Glomerular Filt Rate 77 ml/min (>60); GFR (African American) 93 ML/MIN (>60); Glucose 128 mg/dl (74-100); Total Protein,Serum 7.4 g/dl (6.3-8.2)
[2020-07-05 13:47] LABS: Ethyl Alcohol < 10 mg/dl (0-10)
[2020-07-05 15:07] VITALS: BP 119/77; PULSE 61; RESP 20; O2SAT 97
[2020-07-05 15:23] VITALS: BMI 38.0
[2020-07-05 15:28] VITALS: BP 119/77; PULSE 61; RESP 20; TEMP 37.1; O2SAT 99
== END 2020-07-05 15:29 | disposition home or self-care (01) ==
PROVIDERS: Emergency Provider Emergency Medicine; PCP Pediatrics
DX: S16.1XXA Strain of muscle, fascia and tendon at neck level, initial encounter (principal); S80.01XA Contusion of right knee, initial encounter; S20.211A Contusion of right front wall of thorax, initial encounter; S39.012A Strain of muscle, fascia and tendon of lower back, initial encounter; V48.0XXA Car driver injured in noncollision transport accident in nontraffic accident, initial encounter; Y92.488 Other paved roadways as the place of occurrence of the external cause
CPT/HCPCS: 70450; 71045; 71275; 72125; 72128; 72131; 72170; 73562; 74177; 80053; 85025; 99282; Q9967

== ENCOUNTER → 2020-07-31 13:37 | Outpatient (CLI) | payer BC, SELFPAY ==
--- NOTE | 2020-07-31 13:41 | XR_ITS ---
PROCEDURE: XR CERVICAL SPINE 5V CLINICAL INDICATION: SPONDYLOSIS W/O MYELOPATHY OR RADICULOPATHY, CERVICAL REGION Neck pain COMPARISON: 09/06/2019 FINDINGS: There is normal alignment. No acute fracture or dislocation. Degenerative disc disease is present at C5-C6 and C6-C7. There is mild foraminal narrowing on the right at C5-C6 and C6-C7 and on the left at C5-C6 and C6-C7. There is facet and uncovertebral hypertrophy at C5 C6 and C7 Other findings:None. IMPRESSION: Overall no change in the cervical spondylosis with degenerative disc disease and foraminal narrowing Dictated by: Froilan Grajeda MD 07/31/2020 14:38 Froilan Grajeda MD in [facility] 07/31/2020 14:38
== END ==
PROVIDERS: PCP Pediatrics; Visit Provider Pain Medicine Interventional Pain Medicine
DX: M47.812 Spondylosis without myelopathy or radiculopathy, cervical region (principal); Z79.899 Other long term (current) drug therapy
CPT/HCPCS: 72050

== ENCOUNTER 2020-07-31 14:05 | Emergency (ER) | payer BC, SELFPAY ==
[2020-07-31 14:07] VITALS: BP 166/85; PULSE 84; RESP 16; TEMP 36.9; O2SAT 98; BMI 39.9
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
[2020-07-31 14:50] VITALS: BP 166/85; PULSE 84; RESP 16; TEMP 36.9; O2SAT 98
== END 2020-07-31 14:50 | disposition home or self-care (01) ==
PROVIDERS: Emergency Provider Emergency Medicine; PCP Pediatrics
DX: M54.2 Cervicalgia (principal); M54.6 Pain in thoracic spine; I25.10 Atherosclerotic heart disease of native coronary artery without angina pectoris; E11.9 Type 2 diabetes mellitus without complications; E78.5 Hyperlipidemia, unspecified; I10 Essential (primary) hypertension; I25.2 Old myocardial infarction; Z87.891 Personal history of nicotine dependence; Z88.6 Allergy status to analgesic agent; Z79.899 Other long term (current) drug therapy
CPT/HCPCS: 99281

== ENCOUNTER → 2020-08-14 09:49 | Outpatient (CLI) | payer BC, SELFPAY ==
--- NOTE | 2020-08-14 09:52 | CT_ITS ---
PROCEDURE: CT CHEST WO/W CON CLINCAL INDICATION: LUNG CANCER F/U Not on chemo COMPARISON: CT CT CHEST W CON from 08/31/[address] ANGIO CHEST from 01/26/[address] ANGIO CHEST from 07/05/2020 TECHNIQUE: IV Contrast: 75ml Isovue 370 Axial images obtained with sagittal and coronal reformats. All CT scans at the facility use one or more dose reduction, viz: automated exposure control, ma/kV adjustment per patient size (including targeted exams where dose is matched to indication, i.e. head), or iterative reconstruction technique. FINDINGS: No mediastinal or hilar mass or adenopathy. There are few small mediastinal lymph nodes which are unchanged. No dominant adenopathy. Bullous emphysematous changes are present as before with scattered areas of scarring. Stable 4 mm nodule right upper lobe image 30. Calcified nodule right lower lobe. There is increased density in the left perihilar region which may be due to post radiation fibrotic changes. No significant change compared to the previous exam. Perihilar bronchiectasis and perihilar fibrosis noted. Fibrotic changes are extending into the left lower lobe superior segment. No new nodules are apparent. IMPRESSION: Overall stable CT appearance of the chest. No change persistent perihilar left upper lobe and left lower lobe perihilar parenchymal opacity which may be due to radiation fibrosis. No new abnormalities evident. Dictated by: Froilan Grajeda MD 08/15/2020 14:59 Froilan Grajeda MD in [facility] 08/15/2020 14:59
[2020-08-14 10:27] LABS: Chloride 110 mmol/L (98-107)
[2020-08-14 10:28] LABS: Potassium 3.6 mmoL/L (3.5-5.1); Sodium 146 mmol/L (136-145)
[2020-08-14 10:30] LABS: Alanine Aminotransferase 20 U/L (12-78); Alkaline Phosphatase 72 U/L (38-126); Aspartate Amino Transferase 28 U/L (17-59); Bilirubin,Total 0.7 mg/dl (0.2-1.3); Blood Urea Nitrogen 23 mg/dl (9-20); Estimated Glomerular Filt Rate 48 ml/min (>60); GFR (African American) 58 ML/MIN (>60)
[2020-08-14 10:31] LABS: Albumin Level 4.3 g/dl (3.5-5.0); Albumin/Globulin Ratio 1.4 (1.1-1.8); Anion Gap 9.6 mEq/L (5-15); Calcium 9.2 mg/dl (8.4-10.2); Carbon Dioxide 30 mmol/L (22.0-30.0); Globulin 3.1 g/dL (1.3-3.2); Glucose 115 mg/dl (74-100); Total Protein,Serum 7.4 g/dl (6.3-8.2)
[2020-08-14 10:42] LABS: Basophils # 0.1 K/mm3 (0-0.2); Basophils % 1.5 % (0.1-2.0); Eosinophils # 0.1 K/mm3 (0.0-0.4); Eosinophils % 3.5 % (0.1-12.0); Hematocrit 38.6 % (42.0-52.0); Hemoglobin 12.6 g/dL (14.1-18.0); Lymphocytes % 29.8 % (10-50); Mean Corpuscular HGB Conc 32.6 g/dL (31.8-35.4); Mean Corpuscular Hemoglobin 31.1 pg (27.0-31.2); Mean Corpuscular Volume 95.6 fl (80-94); Monocytes # 0.4 K/mm3 (0.1-1.0); Monocytes % 12.2 % (1.7-9.3); Neutrophils # 1.7 K/mm3 (1.8-7.8); Platelet Count 209 K/mm3 (142-424); Red Blood Count 4.04 M/mm3 (4.60-6.20); Red Cell Distribution Width 13.9 % (11.5-17.5); White Blood Count 3.3 K/mm3 (4.8-10.8)
== END ==
PROVIDERS: PCP Pediatrics; Visit Provider Internal Medicine Medical Oncology
DX: C34.92 Malignant neoplasm of unspecified part of left bronchus or lung (principal)
CPT/HCPCS: 36415; 71270; 80053; 85025

== ENCOUNTER 2020-08-16 15:30 | Emergency (ER) | payer BC, SELFPAY ==
[2020-08-16 15:31] VITALS: BP 131/70; PULSE 83; RESP 16; TEMP 36.7; O2SAT 99; BMI 38.2
--- NOTE | 2020-08-16 15:37 | XR_ITS ---
PROCEDURE: XR CHEST 2V CLINICAL HISTORY: swelling, dyspnea COMPARISON: CR CXR1 CHEST-PORTABLE from 02/05/2017 CR CXR2V XR chest 2V from 12/30/[address] CHEST W CON from 04/16/2020 CR XR CHEST PORTABLE from 07/05/[address] CHEST WO/W CON from 08/14/2020 FINDINGS: The cardiomediastinal silhouette and pulmonary vascularity are within normal limits. There is increased density in the left perihilar region as seen on recent CT scan which was felt to be due to radiation fibrosis. This appears somewhat worse compared to 07/05/2020 which could be due to some superimposed perihilar infiltrate or atelectatic change. COPD changes. No effusions. IMPRESSION: Left-sided postradiation fibrosis with some increased density in the perihilar region compared to 07/05/2020 which may be due to superimposed pneumonia or atelectatic change. Dictated by: Froilan Grajeda MD 08/16/2020 16:34 Froilan Grajeda MD in [facility] 08/16/2020 16:34
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
[2020-08-16 16:01] VITALS: BP 145/71; PULSE 76; RESP 18; O2SAT 98
[2020-08-16 16:14] LABS: Basophils % 0.7 % (0.1-2.0); Eosinophils # 0.1 K/mm3 (0.0-0.4); Eosinophils % 2.4 % (0.1-12.0); Hematocrit 38.9 % (42.0-52.0); Hemoglobin 12.8 g/dL (14.1-18.0); Lymphocytes % 20.1 % (10-50); Mean Corpuscular Hemoglobin 31.6 pg (27.0-31.2); Mean Corpuscular Volume 95.6 fl (80-94); Monocytes # 0.6 K/mm3 (0.1-1.0); Monocytes % 11.3 % (1.7-9.3); Neutrophils # 3.2 K/mm3 (1.8-7.8); Neutrophils % 65.6 % (37.0-80.0); Platelet Count 222 K/mm3 (142-424); Red Blood Count 4.07 M/mm3 (4.60-6.20); Red Cell Distribution Width 13.6 % (11.5-17.5); White Blood Count 4.8 K/mm3 (4.8-10.8)
--- NOTE | 2020-08-16 16:14 | ECG_ITS ---
APPROVED REPORT Exam: Resting ECG HR:73 bpm ECG Measurements Heart Rate 73 AXES IN 162 P 32 QRSd 86 QRS 5 QT 428 T 22 QTc 471 Conclusion Normal sinus rhythm Prolonged QT Abnormal ECG Electronically signed by : Philip Khan, 08/17/2020 08:54:03
[2020-08-16 16:15] LABS: Chloride 103 mmol/L (98-107); Potassium 3.2 mmoL/L (3.5-5.1); Sodium 144 mmol/L (136-145)
[2020-08-16 16:18] LABS: Anion Gap 11.2 mEq/L (5-15); Blood Urea Nitrogen 20 mg/dl (9-20); Carbon Dioxide 33 mmol/L (22.0-30.0); Creatinine Clearance Estimated 86 mL/min (50-200); Estimated Glomerular Filt Rate 52 ml/min (>60); GFR (African American) 63 ML/MIN (>60)
[2020-08-16 16:19] LABS: Calcium 9.5 mg/dl (8.4-10.2); Glucose 127 mg/dl (74-100)
[2020-08-16 16:28] LABS: NT Pro Brain Natriuretic Pep. 111 pg/mL (0-125)
[2020-08-16 17:00] VITALS: BP 118/70; PULSE 81; RESP 18; O2SAT 98
[2020-08-16 17:20] VITALS: BP 122/73; PULSE 76; RESP 20; TEMP 36.8; O2SAT 98
== END 2020-08-16 17:21 | disposition home or self-care (01) ==
PROVIDERS: Emergency Provider Emergency Medicine; PCP Pediatrics
DX: M79.89 Other specified soft tissue disorders (principal); R60.0 Localized edema; E11.9 Type 2 diabetes mellitus without complications; I50.9 Heart failure, unspecified; I10 Essential (primary) hypertension; J44.9 Chronic obstructive pulmonary disease, unspecified; I73.9 Peripheral vascular disease, unspecified; N28.9 Disorder of kidney and ureter, unspecified; I25.10 Atherosclerotic heart disease of native coronary artery without angina pectoris; I25.2 Old myocardial infarction; E78.5 Hyperlipidemia, unspecified; Z87.891 Personal history of nicotine dependence; Z79.899 Other long term (current) drug therapy
CPT/HCPCS: 71046; 80048; 83880; 85025; 93005; 99282

== ENCOUNTER → 2020-08-31 13:29 | Outpatient (CLI) | payer BC, SELFPAY ==
--- NOTE | 2020-08-31 13:50 | CA_ITS ---
APPROVED REPORT EXAM: Comprehensive 2D, Doppler, and color-flow Echocardiogram Pewter Finisher: Lori Scott RVT Ht: 5 ft 5 in Wt: 224lbs BSA: 2.08 BP: 120/72 mmHg Indications: LEON,EDEMA,CAD,HX FABIENNE CA,HTN,DM 2D Dimensions LVOT 2.15 cm (M/F) 1.5-2.5 LA Volume 18.10 mL LA Volume Index 8.74 mL/m2 (M/F) 16-34 M-Mode Dimensions RVDd 2.88 cm (0.9-2.6) LA Diam 4.06 cm (1.9-4.0) LVDd 3.04 cm (3.5-5.7) Ao Diam 2.83 cm (2.0-3.7) LVDs 3.14 cm (3.5-5.7) IVSd 0.60 cm (0.6-1.1) PWd 3.00 cm (0.6-1.1) EF (Teich) 8.00% FS 3.30% EDV (Teich) 36.20 mL ESV (Teich) 39.10 mL LV Diastology E Decel Time 150.00 (160-240 msec) E/A Ratio 0.8 MED E' 4.30 (< 7 cm/sec) E'/MED E' Ratio 12.05 (>14) LAT E' 5.20 (<10 cm/sec) E/LAT E' Ratio 9.96 (>14) Aortic Valve AI PHT 688.00 ms Mitral Valve MV E Max Missael. 52.00 (40-130 cm/s) MV A Velocity 65.00 (40-130 cm/s) E/A Ratio 0.80 MV Decel. Time 150.00 (160-240 ms) MV PHT 44.00 ms Pulmonary Valve PV Peak Velocity 81.00 (50-150 cm/s) Left Ventricle Left atrium is mildly enlarged, left ventricle is normal size, mild concentric left ventricular hypertrophy, visually estimated ejection fraction 55% with no regional wall motion abnormality, grade 1 diastolic dysfunction seen without tissue Doppler evidence of raise left atrial pressure. Right Ventricle Right atrium and right ventricle are mildly enlarged with normal contractility. Aortic Valve Aortic valve is minimally thickened and fibrosed. There is no aortic stenosis or aortic insufficiency. Mitral Valve Mitral valve grossly normal, there is trace mitral regurgitation. Tricuspid Valve Tricuspid grossly normal, there is trace tricuspid regurgitation, tricuspid regurgitation jet velocity is inadequate for calculation of the right ventricular systolic pressure. Pulmonic Valve Pulmonic valve is poorly visualized. Great Vessels Aortic root is normal size. Pericardium No significant pericardial effusion noted. Conclusion 1. Mild biatrial enlargement, normal left ventricular size, mild concentric left ventricular hypertrophy, visually estimated ejection fraction 55% with no regional wall motion abnormality, grade 1 diastolic dysfunction seen without tissue Doppler evidence of raise left atrial pressure. 2. Trace mitral and tricuspid regurgitation. 3. No significant pericardial effusion noted. Electronically signed by : James Raza, 08/31/2020 15:16:47
[2020-08-31 15:16] LABS: Anion Gap 15.7 mEq/L (5-15); Blood Urea Nitrogen 18 mg/dl (9-20); Calcium 9.7 mg/dl (8.4-10.2); Carbon Dioxide 27 mmol/L (22.0-30.0); Chloride 102 mmol/L (98-107); Estimated Glomerular Filt Rate 62 ml/min (>60); GFR (African American) 76 ML/MIN (>60); Glucose 114 mg/dl (74-100); Potassium 3.7 mmoL/L (3.5-5.1); Sodium 141 mmol/L (136-145)
[2020-08-31 15:24] LABS: NT Pro Brain Natriuretic Pep. 160 pg/mL (0-125)
== END ==
PROVIDERS: Internal Medicine Cardiovascular Disease; PCP Pediatrics; Visit Provider Nurse Practitioner Family
DX: R06.02 Shortness of breath (principal); R07.89 Other chest pain; R42 Dizziness and giddiness; C34.90 Malignant neoplasm of unspecified part of unspecified bronchus or lung; R60.9 Edema, unspecified; E11.9 Type 2 diabetes mellitus without complications; I25.10 Atherosclerotic heart disease of native coronary artery without angina pectoris; I10 Essential (primary) hypertension; E66.9 Obesity, unspecified; E78.49 Other hyperlipidemia; Z79.84 Long term (current) use of oral hypoglycemic drugs
CPT/HCPCS: 36415; 80048; 83880; 93306

== ENCOUNTER → 2020-09-12 10:26 | Outpatient (CLI) | payer BC, SELFPAY ==
[2020-09-12 11:17] LABS: NT Pro Brain Natriuretic Pep. 181 pg/mL (0-125)
[2020-09-12 11:48] LABS: Anion Gap 13.9 mEq/L (5-15); Blood Urea Nitrogen 23 mg/dl (9-20); Calcium 9.6 mg/dl (8.4-10.2); Carbon Dioxide 26 mmol/L (22.0-30.0); Chloride 105 mmol/L (98-107); Estimated Glomerular Filt Rate 69 ml/min (>60); GFR (African American) 83 ML/MIN (>60); Glucose 157 mg/dl (74-100); Potassium 3.9 mmoL/L (3.5-5.1); Sodium 141 mmol/L (136-145)
== END ==
PROVIDERS: Visit Provider Urology
DX: R06.00 Dyspnea, unspecified (principal); C34.90 Malignant neoplasm of unspecified part of unspecified bronchus or lung; I25.10 Atherosclerotic heart disease of native coronary artery without angina pectoris; E11.9 Type 2 diabetes mellitus without complications; E78.5 Hyperlipidemia, unspecified; I10 Essential (primary) hypertension; R60.9 Edema, unspecified; F17.200 Nicotine dependence, unspecified, uncomplicated; Z79.84 Long term (current) use of oral hypoglycemic drugs
CPT/HCPCS: 36415; 80048; 83880

== ENCOUNTER → 2020-10-01 13:48 | Outpatient (CLI) | payer BC, SELFPAY | PROVIDERS: PCP Pediatrics; Visit Provider Internal Medicine | DX: G47.33 Obstructive sleep apnea (adult) (pediatric) (principal); G47.10 Hypersomnia, unspecified; R06.83 Snoring | CPT/HCPCS: G0399 ==

== ENCOUNTER → 2020-10-08 15:03 | Outpatient (POV) | payer BC, SELFPAY | PROVIDERS: Visit Provider Nurse Practitioner Family | DX: Z00.00 Encounter for general adult medical examination without abnormal findings (principal) ==

== ENCOUNTER 2020-11-04 20:37 | Emergency (ER) | payer BC, SELFPAY ==
[2020-11-04 20:38] VITALS: BP 142/75; PULSE 82; RESP 16; TEMP 36.7; O2SAT 97; BMI 39.9
--- NOTE | 2020-11-04 20:42 | HMH.EDABDPAI ---
ED Disposition Clinical Impression: Abdominal pain, Cystitis, Atypical chest pain Disposition: Home, Self-Care Condition on Discharge: Good Prescriptions: Sulfamethoxazole/Trimethoprim [Bactrim DS tablet] 1 each PO BID 5 Days #10 tab Prescription Printed Referrals: Lyndon Medina [Primary Care Provider] - - Critical Care Critical Care Time: No Attestation: On 11/04/20, the high probability of a clinically significant, sudden or life threatening deterioration of the following system(s) required my full and direct attention, intervention and personal management. The time I documented below is in addition to time spent performing reported procedures but includes the following listed in this critical care notation. Medical Decision Making - Medical Records Medical records reviewed: Yes: I reviewed the patient's medical records. - [place] Inquiry Pt receiving controlled substance: No Vital Signs: 11/04/20 20:38 11/04/20 22:31 11/04/20 23:00 Temperature 98.1 F Temperature Source Oral Pulse Rate 77 82 Pulse Rate [Right] 82 Respiratory Rate 16 18 18 Blood Pressure 115/54 L 109/65 L Blood Pressure [Right Arm] 142/75 H Blood Pressure Mean 74 80 Blood Pressure Mean [Right Arm] 97 02 Sat by Pulse Oximetry 97 97 96 Oxygen Delivery Method Room Air Room Air 11/05/20 00:51 Temperature 98.1 F Temperature Source Pulse Rate 79 Pulse Rate [Right] Respiratory Rate 18 Blood Pressure 110/71 Blood Pressure [Right Arm] Blood Pressure Mean Blood Pressure Mean [Right Arm] 02 Sat by Pulse Oximetry Oxygen Delivery Method - Lab Data Lab Results 11/04/20 20:50: Urine Color Yellow, Urine Appearance Clear, Urine pH 6.5, Ur Specific [place] 1.020, Urine Protein Negative, Urine Glucose (UA) Negative, Urine Ketones Negative, Urine Blood Negative, Urine Nitrate Negative, Urine Bilirubin Negative, Urine Urobilinogen 1.0, Ur Leukocyte Esterase Negative, Urine Bacteria Trace 11/04/20 20:55: WBC 6.3, RBC 4.04 L, Hgb 12.6 L, Hct 37.6 L, MCV 93.1, MCH 31.2, MCHC 33.5, RDW 13.4, Plt Count 246, MPV 6.9 L, Neut % (Auto) 75.9, Lymph % (Auto) 15.8, [place] % (Auto) 6.4, Eos % (Auto) 1.2, Baso % (Auto) 0.7, Neut # (Auto) 4.7, Lymph # (Auto) 1.0, [place] # (Auto) 0.4, Eos # (Auto) 0.1, Baso # (Auto) 0.1 11/04/20 20:55: Sodium 135 L, Potassium 4.1, Chloride 99, Carbon Dioxide 30, Anion Gap 10.1, BUN 21 H, Creatinine 1.10, Estimated Creat Clear 114, Estimated GFR 69, Est GFR ( Amer) 83, Glucose 236 H, Calcium 9.1, Total Bilirubin 0.9, AST 28, ALT 30, Alkaline Phosphatase 82, Troponin I < 0.01, Total Protein 7.4, Albumin 4.5, Globulin 2.9, Albumin/Globulin Ratio 1.6 11/05/20 00:15: Troponin I < 0.01 Result diagrams: 11/04/20 20:55 11/04/20 20:55 Orders (Tests/Meds): ED MEDICATIONS Discontinued Medications Generic Name Dose Route Start Last Admin Trade Name Alia PRN Reason Stop Dose Admin Iopamidol 75 ml 11/04/20 22:04 11/04/20 22:04 Iopamidol-370 (76%);100ml Bottle IV 11/04/20 22:05 75 ml ONCE ONE Administration Ketorolac Tromethamine 15 mg 11/04/20 20:54 Ketorolac 30mg/Ml Vial IV 11/04/20 20:55 ONCE ONE Morphine Sulfate 4 mg 11/04/20 20:55 11/04/20 21:00 Morphine 4mg/Ml Syringe IV 11/04/20 20:56 4 mg ONCE ONE Administration Ondansetron HCl 4 mg 11/04/20 20:53 11/04/20 21:00 Ondansetron 4mg/2ml Vial IV 11/04/20 20:54 4 mg ONCE ONE Administration Sodium Chloride 10 ml 11/04/20 22:04 11/04/20 22:04 Sodium Chloride 0.9% 10ml Syr (Rad Only) IV 11/04/20 22:05 10 ml ONCE ONE Administration Trimethoprim/Sulfamethoxazole 1 each 11/05/20 00:19 11/05/20 00:20 Sulfa/Trimethoprim 1 Tablet PO 11/05/20 00:20 1 each ONCE ONE Administration Protocol - JEFFREY Score for Non-Stemi Age of Patient: 50-59 years old Heart Rate: 70-89 bpm Systolic Blood Pressure: 100-119 mmHg Serum Creatinine: 0.80-1.19 mg/dl CHF Killip Class: I-No CHF Other Risk F
--- NOTE | 2020-11-04 20:53 | XR_ITS ---
PROCEDURE INFORMATION: Exam: XR Chest Exam date and time: 11/04/2020 8:53 PM Age: 59 years old Clinical indication: Chest pressure; Prior surgery; Surgery date: 6+ months; Patient HX: Chest pain, HX of heart cath last year without stents; Additional info: Left flank pain TECHNIQUE: Imaging protocol: XR of the chest. Views: 1 view. COMPARISON: CR XR CHEST 2V 08/16/2020 3:57 PM FINDINGS: Lungs: Unremarkable. No consolidation. Pleural spaces: Unremarkable. No pleural effusion. No pneumothorax. Heart/Mediastinum: Unremarkable. No cardiomegaly. Bones/joints: Unremarkable. IMPRESSION: No new cardiopulmonary findings.
--- NOTE | 2020-11-04 20:53 | CT_ITS ---
PROCEDURE INFORMATION: Exam: CT Abdomen And Pelvis With Contrast Exam date and time: 11/04/2020 8:53 PM Age: 59 years old Clinical indication: Abdominal pain; Localized; Patient HX: Left sided abd pain with nausea TECHNIQUE: Imaging protocol: Computed tomography of the abdomen and pelvis with contrast. Radiation optimization: All CT scans at this facility use at least one of these dose optimization techniques: automated exposure control; mA and/or kV adjustment per patient size (includes targeted exams where dose is matched to clinical indication); or iterative reconstruction. Contrast material: ISOVUE; Contrast volume: 75 ml; Contrast route: IV; COMPARISON: CT ABDOMEN PELVIS W CON 07/05/2020 1:30 PM FINDINGS: Lungs: Stable right lower lobe granulomas. Mild interval medial basilar left lower lobe bronchiectasis or infiltrate. This is incompletely visualized. Liver: Normal. No mass. Gallbladder and bile ducts: There has been prior cholecystectomy. There is mild stable prominence of the biliary tree. Pancreas: Normal. No ductal dilation. Spleen: Normal. No splenomegaly. Adrenal glands: Normal. No mass. Kidneys and ureters: Normal. No hydronephrosis. Stomach and bowel: Unremarkable. No obstruction. No mucosal thickening. Appendix: No evidence of appendicitis. Intraperitoneal space: Unremarkable. No free air. No significant fluid collection. Vasculature: 3.1 cm mildly irregular fusiform infrarenal abdominal aortic aneurysm seen at the level of the inferior mesenteric artery with associated borderline bilateral iliac artery aneurysms measuring 16-17 mm in size. Mild associated mural thrombus and calcifications are seen. Lymph nodes: Unremarkable. No enlarged lymph nodes. Urinary bladder: Unremarkable as visualized. Reproductive: Unremarkable as visualized. Bones/joints: Mild degenerative osseous changes. Soft tissues: Unremarkable. IMPRESSION: 1. Stable right lower lobe granulomas. Mild interval medial basilar left lower lobe bronchiectasis or infiltrate. This is incompletely visualized. 2. 3.1 cm mildly irregular fusiform infrarenal abdominal aortic aneurysm seen at the level of the inferior mesenteric artery with associated borderline bilateral iliac artery aneurysms measuring 16-17 mm in size. Mild associated mural thrombus and calcifications are seen.
[2020-11-04 21:10] LABS: Microscopic, Urine URINE MICROSCOPIC (MICROSCOPIC)
[2020-11-04 21:37] LABS: Appearance,Urine CLEAR (Clear); Bilirubin,Urine Negative (Negative); Blood, Urine Negative (Negative); Color,Urine YELLOW (Yellow); Glucose,Urine (UA) Negative (Negative); Ketones,Urine Negative (Negative); Leukocyte Esterase,Urine Negative (Negative); Nitrate,Urine Negative (Negative); PH,Urine 6.5 (5.0-8.5); Protein,Urine Negative (Negative)
[2020-11-04 21:37] LABS: Basophils # 0.1 K/mm3 (0-0.2); Basophils % 0.7 % (0.1-2.0); Eosinophils # 0.1 K/mm3 (0.0-0.4); Eosinophils % 1.2 % (0.1-12.0); Hematocrit 37.6 % (42.0-52.0); Hemoglobin 12.6 g/dL (14.1-18.0); Lymphocytes % 15.8 % (10-50); Mean Corpuscular HGB Conc 33.5 g/dL (31.8-35.4); Mean Corpuscular Hemoglobin 31.2 pg (27.0-31.2); Mean Corpuscular Volume 93.1 fl (80-94); Mean Platelet Volume 6.9 fl (7.4-10.4); Monocytes # 0.4 K/mm3 (0.1-1.0); Monocytes % 6.4 % (1.7-9.3); Neutrophils # 4.7 K/mm3 (1.8-7.8); Neutrophils % 75.9 % (37.0-80.0); Platelet Count 246 K/mm3 (142-424); Red Blood Count 4.04 M/mm3 (4.60-6.20); Red Cell Distribution Width 13.4 % (11.5-17.5); White Blood Count 6.3 K/mm3 (4.8-10.8)
[2020-11-04 21:42] LABS: Alanine Aminotransferase 30 U/L (12-78); Albumin Level 4.5 g/dl (3.5-5.0); Albumin/Globulin Ratio 1.6 (1.1-1.8); Alkaline Phosphatase 82 U/L (38-126); Anion Gap 10.1 mEq/L (5-15); Aspartate Amino Transferase 28 U/L (17-59); Bilirubin,Total 0.9 mg/dl (0.2-1.3); Blood Urea Nitrogen 21 mg/dl (9-20); Calcium 9.1 mg/dl (8.4-10.2); Carbon Dioxide 30 mmol/L (22.0-30.0); Chloride 99 mmol/L (98-107); Creatinine Clearance Estimated 114 mL/min (50-200); Estimated Glomerular Filt Rate 69 ml/min (>60); GFR (African American) 83 ML/MIN (>60); Globulin 2.9 g/dL (1.3-3.2); Glucose 236 mg/dl (74-100); Potassium 4.1 mmoL/L (3.5-5.1); Sodium 135 mmol/L (136-145); Total Protein,Serum 7.4 g/dl (6.3-8.2)
[2020-11-04 21:45] LABS: Bacteria,Urine Trace /lpf
[2020-11-04 21:59] LABS: Troponin I < 0.01 ng/ml (0.00-0.034)
[2020-11-04 22:31] VITALS: BP 115/54; PULSE 77; RESP 18; O2SAT 97
[2020-11-04 23:00] VITALS: BP 109/65; PULSE 82; RESP 18; O2SAT 96
--- NOTE | 2020-11-04 23:17 | PC.NURSE ---
call out to [facility] at this time. awaiting for the radiologist to join conference.,
--- NOTE | 2020-11-04 23:20 | PC.NURSE ---
awaiting call back from radiologist.
--- NOTE | 2020-11-04 23:54 | PC.NURSE ---
calling [facility] to check on status of call back.
--- NOTE | 2020-11-05 00:15 | PC.NURSE ---
Dr Swift speaking with [facility]
--- NOTE | 2020-11-05 00:34 | ECG_ITS ---
APPROVED REPORT Exam: Resting ECG HR:77 bpm ECG Measurements Heart Rate 77 AXES IN 150 P 32 QRSd 76 QRS 14 QT 400 T 28 QTc 452 Conclusion Normal sinus rhythm Normal ECG Electronically signed by : Philip Khan, 11/06/2020 19:52:00
[2020-11-05 00:51] VITALS: BP 110/71; PULSE 79; RESP 18; TEMP 36.7; O2SAT 97
[2020-11-05 01:04] LABS: Troponin I < 0.01 ng/ml (0.00-0.034)
== END 2020-11-05 00:52 | disposition home or self-care (01) ==
PROVIDERS: Emergency Provider Student in an Organized Health Care Education/Training Program; PCP Pediatrics
DX: N30.00 Acute cystitis without hematuria (principal); R07.89 Other chest pain; J44.9 Chronic obstructive pulmonary disease, unspecified; Z87.891 Personal history of nicotine dependence; I25.10 Atherosclerotic heart disease of native coronary artery without angina pectoris; I73.9 Peripheral vascular disease, unspecified; E11.65 Type 2 diabetes mellitus with hyperglycemia; E78.5 Hyperlipidemia, unspecified; I10 Essential (primary) hypertension; M81.0 Age-related osteoporosis without current pathological fracture; Z86.73 Personal history of transient ischemic attack (TIA), and cerebral infarction without residual deficits; Z79.899 Other long term (current) drug therapy
CPT/HCPCS: 36415; 71045; 74177; 80053; 81001; 84484; 85025; 93005; 96374; 96375; 99283; J2405; Q9967

== ENCOUNTER 2020-12-20 14:49 | Emergency (ER) | payer BC, SELFPAY ==
[2020-12-20 14:50] VITALS: BP 120/59; PULSE 80; RESP 16; TEMP 37; O2SAT 98; BMI 38.2
--- NOTE | 2020-12-20 14:53 | CT_ITS ---
PROCEDURE: CT ABDOMEN PELVIS WO CON CLINICAL INDICATION: kidney stone protocol Left flank pain COMPARISON: CT ABDPELW/O CT ABD PELVIS W/O CONTRAST from 03/21/[address] ABDOMEN PELVIS W CON from 07/02/[address] ABDOMEN PELVIS W CON from 11/04/2020 TECHNIQUE: Axial images obtained with sagittal and coronal reformats. All CT scans at the facility use one or more dose reduction, viz: automated exposure control, ma/kV adjustment per patient size (including targeted exams where dose is matched to indication, i.e. head), or iterative reconstruction technique. FINDINGS: LOWER THORAX: Previously noted consolidation in the left infrahilar region and left lower lobe has shown improvement. There are coronary artery calcifications. ABDOMEN & PELVIS: Prior cholecystectomy. The spleen and adrenal glands have an unremarkable appearance. There is a stable slightly hypodense mass within the head of the pancreas at 2.7 cm. No biliary ductal dilatation.. No stranding of the peripancreatic fat. No renal or ureteral calculi parent. No hydronephrosis. No intestinal obstruction or free air. Unremarkable appendix. No evidence of appendicitis or diverticulitis. No pelvic mass or abnormal fluid collection. There is mild fusiform dilatation of the infrarenal abdominal aorta at 2.6 cm not significantly changed. IMPRESSION: 1. No acute abdominal or pelvic findings. 2. Stable pancreatic mass. 3. Mild dilatation infrarenal abdominal aorta unchanged 4. Improvement in left lower lobe pneumonia Dictated by: Froilan Grajeda MD 12/20/2020 15:39 Froilan Grajeda MD in [place] 12/20/2020 15:39
--- NOTE | 2020-12-20 15:17 | HMH.EDGENADL ---
ED Disposition Clinical Impression: Left low back pain, Hyperglycemia Disposition: Home, Self-Care Condition on Discharge: Good Additional Instructions: Return the emergency department for worsening pain vomiting fever or any other concerns within 8 hours. Otherwise follow-up with your primary care physician within the next few days. Follow-up for repeat blood sugar test as well. Prescriptions: methocarbamoL [Methocarbamol 500mg Tablet] 500 mg PO BID 10 Days #20 tab Transmission Status: Pending to [facility] Referrals: Lyndon Medina [Primary Care Provider] - - Critical Care Critical Care Time: No Attestation: On 12/20/20, the high probability of a clinically significant, sudden or life threatening deterioration of the following system(s) required my full and direct attention, intervention and personal management. The time I documented below is in addition to time spent performing reported procedures but includes the following listed in this critical care notation. Medical Decision Making - Medical Records Medical records reviewed: Yes: I reviewed the patient's medical records. - [place] Inquiry Pt receiving controlled substance: No Vital Signs: 12/20/20 14:50 Temperature 98.6 F Temperature Source Oral Pulse Rate [Radial] 80 Respiratory Rate 16 Blood Pressure [Right Arm] 120/59 L Blood Pressure Mean [Right Arm] 79 Blood Pressure Position [Right Arm] Sitting 02 Sat by Pulse Oximetry 98 Oxygen Delivery Method Room Air - Lab Data Lab Results 12/20/20 15:07: WBC 5.4, RBC 4.05 L, Hgb 13.1 L, Hct 37.6 L, MCV 93.0, MCH 32.3 H, MCHC 34.7, RDW 13.7, Plt Count 301, MPV 7.5, Neut % (Auto) 73.7, Lymph % (Auto) 18.3, [place] % (Auto) 5.9, Eos % (Auto) 1.5, Baso % (Auto) 0.6, Neut # (Auto) 4.0, Lymph # (Auto) 1.0, [place] # (Auto) 0.3, Eos # (Auto) 0.1, Baso # (Auto) 0.0 12/20/20 15:07: Sodium 135 L, Potassium 4.2, Chloride 99, Carbon Dioxide 23, Anion Gap 17.2 H, BUN 19, Creatinine 1.20, Estimated Creat Clear 99, Estimated GFR 62, Est GFR ( Amer) 75, Glucose 421 H*, Calcium 9.5 12/20/20 15:25: Urine Color Yellow, Urine Appearance Clear, Urine pH 6.0, Ur Specific [place] 1.010, Urine Protein Negative, Urine Glucose (UA) 3+, Urine Ketones Negative, Urine Blood Negative, Urine Nitrate Negative, Urine Bilirubin Negative, Urine Urobilinogen 0.2, Ur Leukocyte Esterase Negative, Urine RBC None, Urine WBC None, Ur Squamous Epith Cells None, Urine Bacteria None Result diagrams: 12/20/20 15:07 12/20/20 15:07 Orders (Tests/Meds): ED MEDICATIONS Discontinued Medications Generic Name Dose Route Start Last Admin Trade Name Freq PRN Reason Stop Dose Admin Sodium Chloride 1,000 mls @ 999 mls/hr 12/20/20 15:00 12/20/20 15:05 Sod Chlor 0.9% 1000ml Bag IV 12/20/20 16:00 999 mls/hr .Q1H1M YADY Administration Morphine Sulfate 4 mg 12/20/20 14:54 12/20/20 15:05 Morphine 4mg/Ml Syringe IV 12/20/20 14:55 4 mg ONCE ONE Administration Morphine Sulfate 4 mg 12/20/20 15:57 Morphine 4mg/Ml Syringe IV 12/20/20 15:58 ONCE ONE Ondansetron HCl 4 mg 12/20/20 14:54 12/20/20 15:05 Ondansetron 4mg Odt SL 12/20/20 14:55 4 mg ONCE ONE Administration Medical Decision Narrative: 60-year-old male presents with left-sided flank pain. CT abdomen pelvis obtained. Given IV fluids and pain medicine. No fever or concern for urinary tract infection, urinalysis obtained. Otherwise no signs of acute abdomen at this time. CT did not show kidney stone, stable pancreatic mass no other concerning findings he is very point tenderness on exam. He request not to have narcotics because he is in pain management clinic. Plan to give Robaxin for pain control and discharged with return precautions General Adult HPI - General Chief complaint: PAIN Stated complaint: pain left side running to back Time Seen by Provider: 12/20/20 15:00 Mode of Arrival: Ambulatory Limitations: No Limita
[2020-12-20 15:32] LABS: Basophils % 0.6 % (0.1-2.0); Eosinophils # 0.1 K/mm3 (0.0-0.4); Eosinophils % 1.5 % (0.1-12.0); Hematocrit 37.6 % (42.0-52.0); Hemoglobin 13.1 g/dL (14.1-18.0); Lymphocytes % 18.3 % (10-50); Mean Corpuscular HGB Conc 34.7 g/dL (31.8-35.4); Mean Corpuscular Hemoglobin 32.3 pg (27.0-31.2); Mean Platelet Volume 7.5 fl (7.4-10.4); Monocytes # 0.3 K/mm3 (0.1-1.0); Monocytes % 5.9 % (1.7-9.3); Neutrophils % 73.7 % (37.0-80.0); Platelet Count 301 K/mm3 (142-424); Red Blood Count 4.05 M/mm3 (4.60-6.20); Red Cell Distribution Width 13.7 % (11.5-17.5); White Blood Count 5.4 K/mm3 (4.8-10.8)
[2020-12-20 15:36] LABS: Chloride 99 mmol/L (98-107); Potassium 4.2 mmoL/L (3.5-5.1); Sodium 135 mmol/L (136-145)
[2020-12-20 15:37] LABS: Microscopic, Urine URINE MICROSCOPIC (MICROSCOPIC)
[2020-12-20 15:39] LABS: Blood Urea Nitrogen 19 mg/dl (9-20); Creatinine Clearance Estimated 99 mL/min (50-200); Estimated Glomerular Filt Rate 62 ml/min (>60); GFR (African American) 75 ML/MIN (>60)
[2020-12-20 15:40] LABS: Anion Gap 17.2 mEq/L (5-15); Calcium 9.5 mg/dl (8.4-10.2); Carbon Dioxide 23 mmol/L (22.0-30.0)
[2020-12-20 15:44] LABS: Appearance,Urine CLEAR (Clear); Bilirubin,Urine Negative (Negative); Blood, Urine Negative (Negative); Color,Urine YELLOW (Yellow); Glucose,Urine (UA) 3+ (Negative); Ketones,Urine Negative (Negative); Leukocyte Esterase,Urine Negative (Negative); Nitrate,Urine Negative (Negative); Protein,Urine Negative (Negative); Urobilinogen,Urine 0.2 EU/dl (0.2)
[2020-12-20 15:45] LABS: Glucose 421 mg/dl (74-100)
--- NOTE | 2020-12-20 16:14 | PC.NURSE ---
pt is calling for a ride
[2020-12-20 16:36] VITALS: BP 122/74; PULSE 74; RESP 18; TEMP 37; O2SAT 100
== END 2020-12-20 16:38 | disposition home or self-care (01) ==
PROVIDERS: Emergency Provider Emergency Medicine; PCP Pediatrics
DX: M54.5 Low back pain (principal); R10.32 Left lower quadrant pain; E11.65 Type 2 diabetes mellitus with hyperglycemia; I25.10 Atherosclerotic heart disease of native coronary artery without angina pectoris; I25.2 Old myocardial infarction; M81.0 Age-related osteoporosis without current pathological fracture; I10 Essential (primary) hypertension; E78.5 Hyperlipidemia, unspecified; F17.210 Nicotine dependence, cigarettes, uncomplicated; Z79.899 Other long term (current) drug therapy
CPT/HCPCS: 74176; 80048; 81001; 85025; 96365; 96375; 96376; 99283

== ENCOUNTER 2020-12-24 09:32 | Outpatient (CLI) | payer BC, SELFPAY ==
--- NOTE | 2020-12-24 | CT_ITS ---
PROCEDURE: CT ABDOMEN PELVIS WO/W CON CLINICAL INDICATION: LUNG CANCER COMPARISON: CT ABDPELW CT abdomen pelvis w con from 11/02/[address] ABDOMEN PELVIS W CON from 07/05/[address] ABDOMEN PELVIS W CON from 11/04/[address] ABDOMEN PELVIS WO CON from 12/20/2020 TECHNIQUE: Axial images obtained with sagittal and coronal reformats. All CT scans at the facility use one or more dose reduction, viz: automated exposure control, ma/kV adjustment per patient size (including targeted exams where dose is matched to indication, i.e. head), or iterative reconstruction technique. CT of the abdomen and pelvis with multiplanar 3D MIP reformations. Performed with oral, with and without IV contrast. Dose modulation, automated exposure control, and/or iterative reconstruction were used for dose reduction. FINDINGS: Thorax: Please see concurrent CT chest report of the same date for thoracic findings. HEPATOBILIARY: Liver: Diffuse fatty infiltration of the liver is noted. Focal area of enhancement is noted measuring 1.9 centimeters in the right lobe of the liver, incompletely evaluated on the current study. This was not seen on the prior CT scan of July 05, 2020 and November 02, 2017. 5 minutes delayed images demonstrate no evidence of washout on the subsequent images. No other focal lesions are noted. Gallbladder: The gallbladder is surgically absent. Biliary: No intrahepatic or extrahepatic ductal dilation. PANCREAS: Focal heterogeneous density lesion noted in the head of the pancreas measuring up to 2.5 centimeters. This demonstrates no significant interval change compared to the study of November 02, 2017. These are most likely to represent cyst adenomas versus cysts. The rest of the pancreas is normal. No pancreatic ductal dilation. SPLEEN:No splenomegaly. ADRENALS:No adrenal nodules. KIDNEYS/URETERS/BLADDER: No hydronephrosis, stones, or solid mass lesions are seen in the visualized portions of the kidneys. PERITONEUM / RETROPERITONEUM: No free air or fluid. Peritoneum LYMPH NODES: No free air or fluid. GI TRACT: No distention, wall thickening, or inflammatory stranding. There is apparent wall thickening of the distal/4th part of the duodenum and proximal jejunum, likely secondary to under distention. Appendix the appendix is normal. ABDOMINAL WALL: Intact SOFT TISSUES: Unremarkable. BONES: Degenerative changes are present in the spine. IMPRESSION: Hepatic steatosis. Focal areas of enhancement noted in the right lobe of the liver, demonstrates no evidence of washout. These are new compared to the prior studies. MRI of the liver without and with contrast is recommended for further evaluation. Focal heterogeneous density lesion in the head of the pancreas measuring up to 2.5 centimeters are unchanged compared to multiple studies dating back to November 02, 2017. These are likely to be benign. Other chronic findings as described above. Dictated by: Callie Ram 12/24/2020 13:08 Callie Ram in [facility] 12/24/2020 13:08
--- NOTE | 2020-12-24 | CT_ITS ---
PROCEDURE: CT CHEST WO/W CON CLINCAL INDICATION: LUNG CANCER COMPARISON: CT CT CHEST WO/W CON from 08/14/2020 TECHNIQUE: CT chest with axial, coronal, and sagittal multiplanar reformations, performed with and without contrast. Dose modulation, automated exposure control, and/or iterative reconstruction were used for dose reduction. IV Contrast: 75ml Isovue 370 FINDINGS: Paraseptal emphysematous changes are noted in the lungs bilaterally. Bullae are noted in the bilateral lung apices. Again noted focal area of subsegmental opacity in the left hilum with the evidence of atelectasis versus fibrosis in the left lower lobe, demonstrates no significant interval change compared to prior study. This demonstrates no significant interval change compared to prior study. No other focal suspicious masses are noted. 4 millimeter nodule in the right upper lobe is again noted, unchanged. Focal calcified granulomas noted in the right lower lobe. Airway: The central airways are patent. HEART / [facility] Heart:The heart is normal size without pericardial effusion. Vessels: Atherosclerotic calcifications are present in the aorta and multiple coronary arteries. MEDIASTINUM Mediastinum: Few calcified lymph nodes are noted in the bilateral stephanie. Scattered subcentimeter lymph nodes are noted in the mediastinum, not significant by size criteria. No significant interval change compared to prior study. UPPER ABDOMEN: Please see concurrent abdominal CT report of the same date for abdominal findings. BONES Bones: Minor multilevel degenerative changes of the thoracic spine are noted. Thyroid: The visualized thyroid gland is unremarkable IMPRESSION: Postradiotherapy changes in the left perihilar region, unchanged compared to the prior study. No evidence of residual/recurrent disease. Dictated by: Callie Ram 12/24/2020 12:56 Callie Ram in [facility] 12/24/2020 12:56
[2020-12-24 09:26] VITALS: BMI 41.3
[2020-12-24 09:45] LABS: Basophils # 0.1 K/mm3 (0-0.2); Basophils % 0.8 % (0.1-2.0); Eosinophils # 0.1 K/mm3 (0.0-0.4); Eosinophils % 1.4 % (0.1-12.0); Hematocrit 40.9 % (42.0-52.0); Hemoglobin 13.9 g/dL (14.1-18.0); Lymphocytes # 1.3 K/mm3 (0.7-4.5); Lymphocytes % 18.5 % (10-50); Mean Corpuscular HGB Conc 33.9 g/dL (31.8-35.4); Mean Corpuscular Hemoglobin 31.8 pg (27.0-31.2); Mean Corpuscular Volume 93.8 fl (80-94); Mean Platelet Volume 7.3 fl (7.4-10.4); Monocytes # 0.4 K/mm3 (0.1-1.0); Monocytes % 5.3 % (1.7-9.3); Neutrophils # 5.1 K/mm3 (1.8-7.8); Platelet Count 335 K/mm3 (142-424); Red Blood Count 4.36 M/mm3 (4.60-6.20); Red Cell Distribution Width 13.9 % (11.5-17.5); White Blood Count 6.9 K/mm3 (4.8-10.8)
[2020-12-24 09:54] LABS: Alanine Aminotransferase 24 U/L (12-78); Albumin Level 4.9 g/dl (3.5-5.0); Albumin/Globulin Ratio 1.6 (1.1-1.8); Alkaline Phosphatase 94 U/L (38-126); Anion Gap 16.4 mEq/L (5-15); Aspartate Amino Transferase 28 U/L (17-59); Bilirubin,Total 1.1 mg/dl (0.2-1.3); Blood Urea Nitrogen 23 mg/dl (9-20); Calcium 9.4 mg/dl (8.4-10.2); Carbon Dioxide 22 mmol/L (22.0-30.0); Chloride 102 mmol/L (98-107); Creatinine Clearance Estimated 64 mL/min (50-200); Estimated Glomerular Filt Rate 69 ml/min (>60); GFR (African American) 83 ML/MIN (>60); Glucose 225 mg/dl (74-100); Potassium 4.4 mmoL/L (3.5-5.1); Sodium 136 mmol/L (136-145); Total Protein,Serum 7.9 g/dl (6.3-8.2)
== END 2020-12-24 10:02 | disposition home or self-care (01) ==
LOC: INF 09:33
PROVIDERS: PCP Pediatrics; Visit Provider Internal Medicine Medical Oncology
DX: C34.92 Malignant neoplasm of unspecified part of left bronchus or lung (principal)
CPT/HCPCS: 71270; 74178; 80053; 85025; Q9967

== ENCOUNTER → 2021-01-01 09:31 | Outpatient (CLI) | payer BC, SELFPAY ==
--- NOTE | 2021-01-01 09:34 | MR_ITS ---
PROCEDURE INFORMATION: Exam: MR Abdomen Without and With Contrast; Liver Exam date and time: 01/01/2021 9:34 AM Age: 60 years old Clinical indication: Abnormal findings; Abnormal radiologic finding of the abdomen; Radiologic exam and body structure: CT abd/pelvis; Patient HX: Lung cancer, liver lesion seen on CT TECHNIQUE: Imaging protocol: MR Abdomen with and without intravenous contrast. Exam focused on the liver. Contrast material: PROHANCE; Contrast volume: 20 ml; Contrast route: IV; COMPARISON: CT ABDOMEN PELVIS WO/W CON 12/24/2020 9:46 AM FINDINGS: Liver: Transient hepatic enhancement is seen in the right lobe of the liver without an associated mass, isointense with the remainder of the liver on delayed images. Patent portal vein. Gallbladder and bile ducts: Cholecystectomy. No biliary ductal dilatation. Pancreas: Normal. Kidneys and ureters: Normal kidneys. Visualized ureters are unremarkable. Intraperitoneal space: No free fluid. IMPRESSION: Benign transient hepatic hyperattenuation correlating with the hyperenhancement seen on CT, consistent with benign hepatic AV portal shunting.
== END ==
PROVIDERS: PCP Pediatrics; Visit Provider Internal Medicine Medical Oncology
DX: C34.92 Malignant neoplasm of unspecified part of left bronchus or lung (principal)
CPT/HCPCS: 74183; A9576

== ENCOUNTER 2021-01-03 10:31 | Outpatient (CLI) | payer BC, SELFPAY ==
[2021-01-03 10:32] VITALS: BMI 43.0
[2021-01-03 10:50] VITALS: BP 126/65; PULSE 71; RESP 18; O2SAT 96
[2021-01-03 10:51] LABS: Basophils % 0.6 % (0.1-2.0); Eosinophils # 0.2 K/mm3 (0.0-0.4); Eosinophils % 2.7 % (0.1-12.0); Hematocrit 33.1 % (42.0-52.0); Hemoglobin 11.1 g/dL (14.1-18.0); Lymphocytes # 0.7 K/mm3 (0.7-4.5); Lymphocytes % 11.6 % (10-50); Mean Corpuscular HGB Conc 33.5 g/dL (31.8-35.4); Mean Corpuscular Volume 95.3 fl (80-94); Mean Platelet Volume 7.3 fl (7.4-10.4); Monocytes # 0.3 K/mm3 (0.1-1.0); Monocytes % 5.8 % (1.7-9.3); Neutrophils # 4.5 K/mm3 (1.8-7.8); Neutrophils % 79.3 % (37.0-80.0); Platelet Count 204 K/mm3 (142-424); Red Blood Count 3.48 M/mm3 (4.60-6.20); White Blood Count 5.7 K/mm3 (4.8-10.8)
[2021-01-03 10:56] LABS: Chloride 102 mmol/L (98-107); Potassium 4.7 mmoL/L (3.5-5.1); Sodium 137 mmol/L (136-145)
[2021-01-03 10:58] LABS: Blood Urea Nitrogen 25 mg/dl (9-20); Creatinine Clearance Estimated 64 mL/min (50-200); Estimated Glomerular Filt Rate 69 ml/min (>60); GFR (African American) 83 ML/MIN (>60)
[2021-01-03 10:59] LABS: Alanine Aminotransferase 28 U/L (12-78); Albumin Level 4.3 g/dl (3.5-5.0); Albumin/Globulin Ratio 1.5 (1.1-1.8); Alkaline Phosphatase 91 U/L (38-126); Anion Gap 12.7 mEq/L (5-15); Aspartate Amino Transferase 36 U/L (17-59); Bilirubin,Total 0.9 mg/dl (0.2-1.3); Calcium 9.5 mg/dl (8.4-10.2); Carbon Dioxide 27 mmol/L (22.0-30.0); Globulin 2.8 g/dL (1.3-3.2); Glucose 185 mg/dl (74-100); Total Protein,Serum 7.1 g/dl (6.3-8.2)
[2021-01-03 12:05] VITALS: BP 135/71; PULSE 73; RESP 18
== END 2021-01-03 12:05 | disposition home or self-care (01) ==
LOC: INF 10:31
PROVIDERS: PCP Pediatrics; Visit Provider Internal Medicine Medical Oncology
DX: C34.90 Malignant neoplasm of unspecified part of unspecified bronchus or lung (principal)
CPT/HCPCS: 80053; 85025; 96360; 96375

== ENCOUNTER → 2021-01-08 13:31 | Outpatient (CLI) | payer BC, SELFPAY ==
--- NOTE | 2021-01-08 13:31 | CA_ITS ---
APPROVED REPORT Bilateral Lower Extremity Venous Study for DVT. 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 Patient denies trauma. Risk Factors Obesity HTN, DM Medications Plavix Vein Imaging CFV (R): compressive, spontaneous, phasic, augmentation FEM (R): compressive, spontaneous, phasic, augmentation POP (R): compressive, spontaneous, phasic, augmentation PTV (R): Compressible GSV (R): compressive, spontaneous, phasic, augmentation Peroneals (R):Compressible GAS (R): Compressible CFV (L): compressive, spontaneous, phasic, augmentation FEM (L): compressive, spontaneous, phasic, augmentation POP (L): compressive, spontaneous, phasic, augmentation PTV (L): Compressible GSV (L): compressive, spontaneous, phasic, augmentation Peroneals (L):Compressible GAS (L): Compressible Findings No evidence of DVT or superficial thrombophlebitis in the veins scanned of the right lower extremity. No evidence of DVT or superficial thrombophlebitis in the veins scanned of the left lower extremity. Conclusion No evidence of DVT or superficial thrombophlebitis in the veins scanned of the right lower extremity. No evidence of DVT or superficial thrombophlebitis in the veins scanned of the left lower extremity. Electronically signed by : Froilan Grajeda MD 01/08/2021 17:18:09
== END ==
PROVIDERS: PCP Pediatrics; Visit Provider Nurse Practitioner Family
DX: R60.9 Edema, unspecified (principal); M79.605 Pain in left leg; M79.604 Pain in right leg
CPT/HCPCS: 93970

== ENCOUNTER → 2021-02-05 12:30 | Outpatient (CLI) | payer BC, SELFPAY ==
--- NOTE | 2021-02-05 12:34 | XR_ITS ---
PROCEDURE: XR HIP RT 2-3V W/PELVIS CLINICAL INDICATION: right hip pain COMPARISON: CR XR PELVIS 1-2V from 07/05/2020 FINDINGS: No fracture or dislocation. No lytic or blastic change. Minimal osteoarthritic changes. IMPRESSION: Minimal osteoarthritis of the right hip Dictated by: Froilan Grajeda MD 02/05/2021 14:34 Froilan Grajeda MD in [place] 02/05/2021 14:34
--- NOTE | 2021-02-05 12:34 | XR_ITS ---
PROCEDURE: XR KNEE RT 4V CLINICAL INDICATION: right knee pain; weightbearing COMPARISON: CR XR KNEE RT 4V from 12/05/2019 CR XR KNEE RT 3V from 01/20/2020 CR XR KNEE RT 3V from 04/10/2020 CR XR KNEE RT 3V from 07/05/2020 FINDINGS: No fracture or dislocation. No lytic or blastic change. There is normal mineralization. There are mild osteoarthritic changes involving all 3 compartments. There is some spurring along the lateral aspect of the patella. A lucency is present at the base of this spur however, this did appear to be present on an older exam of 12/05/2019. Other findings:None. IMPRESSION: Mild osteoarthritic change overall not significantly changed Dictated by: Froilan Grajeda MD 02/05/2021 14:16 Froilan Grajeda MD in [place] 02/05/2021 14:16
== END ==
PROVIDERS: PCP Pediatrics; Visit Provider Orthopaedic Surgery
DX: M25.561 Pain in right knee (principal); M25.551 Pain in right hip
CPT/HCPCS: 73502; 73564

== ENCOUNTER 2021-03-04 04:20 | Emergency (ER) | payer BC, SELFPAY ==
[2021-03-04 04:19] VITALS: BP 99/56; PULSE 84; RESP 18; TEMP 36.8; O2SAT 95; BMI 42.7
--- NOTE | 2021-03-04 04:31 | XR_ITS ---
PROCEDURE INFORMATION: Exam: XR Chest Exam date and time: 03/04/2021 4:31 AM Age: 60 years old Clinical indication: Cough and other: Burning in throat, reflux; Additional info: Cough/reflux/possible aspiration TECHNIQUE: Imaging protocol: XR of the chest. Views: 2 views. COMPARISON: CT CHEST WO/W CON 12/24/2020 9:46 AM FINDINGS: Lungs: There is some patchy airspace disease seen in the right mid chest as well as the left mid chest. Pleural spaces: Unremarkable. No pleural effusion. No pneumothorax. Heart/Mediastinum: Unremarkable. No cardiomegaly. Bones/joints: Unremarkable. IMPRESSION: Patchy airspace disease may represent early infiltrate.
[2021-03-04 04:40] LABS: Basophils # 0.1 K/mm3 (0-0.2); Basophils % 1.1 % (0.1-2.0); Eosinophils # 0.2 K/mm3 (0.0-0.4); Eosinophils % 3.5 % (0.1-12.0); Hematocrit 31.4 % (42.0-52.0); Hemoglobin 10.2 g/dL (14.1-18.0); Lymphocytes # 0.9 K/mm3 (0.7-4.5); Lymphocytes % 20.4 % (10-50); Mean Corpuscular HGB Conc 32.4 g/dL (31.8-35.4); Mean Corpuscular Hemoglobin 32.5 pg (27.0-31.2); Mean Corpuscular Volume 100.2 fl (80-94); Mean Platelet Volume 8.4 fl (7.4-10.4); Monocytes # 0.4 K/mm3 (0.1-1.0); Monocytes % 8.6 % (1.7-9.3); Neutrophils # 2.9 K/mm3 (1.8-7.8); Neutrophils % 66.4 % (37.0-80.0); Platelet Count 253 K/mm3 (142-424); Red Blood Count 3.13 M/mm3 (4.60-6.20); Red Cell Distribution Width 13.1 % (11.5-17.5); White Blood Count 4.3 K/mm3 (4.8-10.8)
[2021-03-04 04:48] LABS: Chloride 102 mmol/L (98-107); Potassium 4.7 mmoL/L (3.5-5.1); Sodium 134 mmol/L (136-145)
[2021-03-04 04:50] LABS: Lipase 38 U/L (23-300)
[2021-03-04 04:51] LABS: Alanine Aminotransferase 37 U/L (12-78); Albumin Level 3.5 g/dl (3.5-5.0); Albumin/Globulin Ratio 1.3 (1.1-1.8); Alkaline Phosphatase 93 U/L (38-126); Amylase 99 U/L (30-110); Anion Gap 15.7 mEq/L (5-15); Aspartate Amino Transferase 29 U/L (17-59); Bilirubin,Total 0.4 mg/dl (0.2-1.3); Blood Urea Nitrogen 47 mg/dl (9-20); Calcium 8.4 mg/dl (8.4-10.2); Carbon Dioxide 21 mmol/L (22.0-30.0); Creatinine Clearance Estimated 37 mL/min (50-200); Estimated Glomerular Filt Rate 37 ml/min (>60); GFR (African American) 44 ML/MIN (>60); Globulin 2.6 g/dL (1.3-3.2); Total Protein,Serum 6.1 g/dl (6.3-8.2)
[2021-03-04 04:52] LABS: Glucose 421 mg/dl (74-100)
[2021-03-04 04:56] LABS: C-Reactive Protein 39.7 mg/L (0-4)
[2021-03-04 05:09] LABS: Procalcitonin 0.147 ng/mL (0.0-2.0)
[2021-03-04 06:23] LABS: Erythrocyte Sedimentation Rate 58 mm/hr (0-20)
--- NOTE | 2021-03-04 06:23 | HMH.EDNVD ---
ED Disposition Clinical Impression: TISHA (acute kidney injury) GERD (gastroesophageal reflux disease) Qualifiers: Esophagitis presence: esophagitis presence not specified Qualified Code(s): K21.9 - Gastro-esophageal reflux disease without esophagitis Disposition: Home, Self-Care Condition on Discharge: Fair Instructions: DI for Gastroesophageal Reflux Disease (GERD) Additional Instructions: call pcp this am and card for close follow up Referrals: Konstantin Dawn MD [Primary Care Provider] - - Critical Care Critical Care Time: No Attestation: On 03/04/21, the high probability of a clinically significant, sudden or life threatening deterioration of the following system(s) required my full and direct attention, intervention and personal management. The time I documented below is in addition to time spent performing reported procedures but includes the following listed in this critical care notation. Medical Decision Making - Medical Records Medical records reviewed: Yes: I reviewed the patient's medical records. - [place] Inquiry Pt receiving controlled substance: No Vital Signs: 03/04/21 04:19 03/04/21 06:47 Temperature 98.3 F Temperature Source Oral Pulse Rate 79 Pulse Rate [Right Brachial] 84 Respiratory Rate 18 18 Blood Pressure 135/92 H Blood Pressure [Right Arm] 99/56 L Blood Pressure Mean [Right Arm] 70 Blood Pressure Source Automatic Cuff Blood Pressure Source [Right Arm] Automatic Cuff Blood Pressure Position Sitting Blood Pressure Position [Right Arm] Sitting 02 Sat by Pulse Oximetry 95 98 Oxygen Delivery Method Room Air Room Air - Lab Data Lab results reviewed: Yes: I reviewed the patient's lab results. Lab Results 03/04/21 04:30: WBC 4.3 L, RBC 3.13 L, Hgb 10.2 L, Hct 31.4 L, MCV 100.2 H, MCH 32.5 H, MCHC 32.4, RDW 13.1, Plt Count 253, MPV 8.4, Neut % (Auto) 66.4, Lymph % (Auto) 20.4, [place] % (Auto) 8.6, Eos % (Auto) 3.5, Baso % (Auto) 1.1, Neut # (Auto) 2.9, Lymph # (Auto) 0.9, [place] # (Auto) 0.4, Eos # (Auto) 0.2, Baso # (Auto) 0.1 03/04/21 04:30: Sodium 134 L, Potassium 4.7, Chloride 102, Carbon Dioxide 21 L, Anion Gap 15.7 H, BUN 47 H, Creatinine 1.90 H, Estimated Creat Clear 37, Estimated GFR 37 L, Est GFR ( Amer) 44 L, Glucose 421 H*, Calcium 8.4, Total Bilirubin 0.4, AST 29, ALT 37, Alkaline Phosphatase 93, Total Protein 6.1 L, Albumin 3.5, Globulin 2.6, Albumin/Globulin Ratio 1.3, Amylase 99 03/04/21 04:30: C-Reactive Protein 39.7 H, Lipase 38 03/04/21 04:30: ESR 58 H 03/04/21 04:30: Procalcitonin 0.147 03/04/21 04:30: Troponin I < 0.01 Result diagrams: 03/04/21 04:30 03/04/21 04:30 Orders (Tests/Meds): ED MEDICATIONS Generic Name Dose Route Start Last Admin Trade Name Freq PRN Reason Stop Dose Admin Sodium Chloride 1,000 mls @ 999 mls/hr 03/04/21 07:00 03/04/21 06:55 Sod Chlor 0.9% 1000ml Bag IV 03/04/21 08:00 999 mls/hr .Q1H1M YADY Administration Sodium Chloride 8 ml 03/04/21 04:29 Sodium Chloride 0.9% 10ml Vial IV 04/03/21 04:28 NEEDED PRN dilute pepcid Discontinued Medications Generic Name Dose Route Start Last Admin Trade Name Freq PRN Reason Stop Dose Admin Famotidine 20 mg 03/04/21 04:29 03/04/21 04:33 Famotidine 20mg/2ml Vial IV 03/04/21 04:30 20 mg ONCE ONE Administration Sodium Chloride 1,000 mls @ 999 mls/hr 03/04/21 04:30 03/04/21 04:33 Sod Chlor 0.9% 1000ml Bag IV 03/04/21 05:30 999 mls/hr .Q1H1M YADY Administration Metoclopramide HCl 10 mg 03/04/21 04:29 03/04/21 04:33 Metoclopramide Hcl 10mg/2ml Vial IVP 03/04/21 04:30 10 mg ONCE ONE Administration Ondansetron HCl 4 mg 03/04/21 04:29 09/27/21 06:53 Ondansetron 4mg/2ml Vial IV 03/04/21 04:30 4 mg ONCE ONE Administration ORDERS Category Date Time Status Troponin I Q3H Lab 03/04/21 09:30 Ordered Troponin I Q3H Lab 03/04/21 12:30 Ordered - Radiology Data #1 Image(s): Chest Image Reviewed:
[2021-03-04 06:47] VITALS: BP 135/92; PULSE 79; RESP 18; O2SAT 98
[2021-03-04 06:59] LABS: Troponin I < 0.01 ng/ml (0.00-0.034)
[2021-03-04 07:22] VITALS: BP 141/88; PULSE 82; RESP 16; TEMP 36.8; O2SAT 99
== END 2021-03-04 07:52 | disposition home or self-care (01) ==
PROVIDERS: Emergency Provider Emergency Medicine; PCP Internal Medicine Adolescent Medicine
DX: N17.9 Acute kidney failure, unspecified (principal); K21.9 Gastro-esophageal reflux disease without esophagitis; E11.65 Type 2 diabetes mellitus with hyperglycemia; J44.9 Chronic obstructive pulmonary disease, unspecified; I10 Essential (primary) hypertension; E78.5 Hyperlipidemia, unspecified; Z79.899 Other long term (current) drug therapy
CPT/HCPCS: 71046; 80053; 82150; 83690; 84145; 84484; 85025; 85651; 86140; 96365; 96366; 96375; 99282; J2405

== ENCOUNTER → 2021-03-08 11:49 | Outpatient (CLI) | payer BC, SELFPAY ==
[2021-03-08 12:39] LABS: Hemoglobin A1C 12.5 % (4.0-6.0)
[2021-03-08 12:51] LABS: Chloride 94 mmol/L (98-107)
[2021-03-08 12:52] LABS: Potassium 4.7 mmoL/L (3.5-5.1); Sodium 134 mmol/L (136-145)
[2021-03-08 12:54] LABS: Blood Urea Nitrogen 24 mg/dl (9-20); Estimated Glomerular Filt Rate 57 ml/min (>60); GFR (African American) 69 ML/MIN (>60)
[2021-03-08 12:55] LABS: Anion Gap 16.7 mEq/L (5-15); Calcium 10.2 mg/dl (8.4-10.2); Carbon Dioxide 28 mmol/L (22.0-30.0)
[2021-03-08 13:03] LABS: Glucose 538 mg/dl (74-100)
== END ==
PROVIDERS: Visit Provider Internal Medicine Adolescent Medicine
DX: E11.9 Type 2 diabetes mellitus without complications (principal); I10 Essential (primary) hypertension; Z79.84 Long term (current) use of oral hypoglycemic drugs
CPT/HCPCS: 36415; 80048; 83036

== ENCOUNTER 2021-03-19 21:04 | Emergency (ER) | payer BC, SELFPAY ==
[2021-03-19 21:04] VITALS: BP 120/84; PULSE 84; RESP 15; TEMP 36.6; O2SAT 98; BMI 33.7; BMI 38.2
[2021-03-19 21:20] LABS: Microscopic, Urine URINE MICROSCOPIC (MICROSCOPIC)
[2021-03-19 21:34] LABS: Appearance,Urine CLEAR (Clear); Bilirubin,Urine Negative (Negative); Blood, Urine Negative (Negative); Color,Urine YELLOW (Yellow); Glucose,Urine (UA) TRACE (Negative); Ketones,Urine Negative (Negative); Leukocyte Esterase,Urine Negative (Negative); Nitrate,Urine Negative (Negative); PH,Urine 5.5 (5.0-8.5); Protein,Urine TRACE (Negative); Specific Gravity, Urine >= 1.030 (1.005-1.030); Urobilinogen,Urine 0.2 EU/dl (0.2)
--- NOTE | 2021-03-19 21:37 | CT_ITS ---
PROCEDURE INFORMATION: Exam: CT Abdomen And Pelvis Without Contrast Exam date and time: 03/19/2021 9:37 PM Age: 60 years old Clinical indication: Abdominal pain; Flank; Left; Patient HX: Lt fank pain; Additional info: Poss kidney stone TECHNIQUE: Imaging protocol: Computed tomography of the abdomen and pelvis without contrast. Radiation optimization: All CT scans at this facility use at least one of these dose optimization techniques: automated exposure control; mA and/or kV adjustment per patient size (includes targeted exams where dose is matched to clinical indication); or iterative reconstruction. COMPARISON: MR ABDOMEN WO/W CON 01/01/2021 10:00 AM FINDINGS: Lungs: Left lower lung fibrotic changes are noted. No honeycombing. Mild scarring and atelectasis in the lower lungs. Heart: Coronary artery disease. Liver: Normal. No mass. Gallbladder and bile ducts: Gallbladder is absent. Pancreas: Fatty interdigitation of the pancreas with relative sparing of the uncinate process and head. This is most likely variant anatomy, less likely mass. Spleen: Normal. No splenomegaly. Adrenal glands: Normal. No mass. Kidneys and ureters: Normal. No hydronephrosis. Stomach and bowel: Unremarkable. No obstruction. No mucosal thickening. Appendix: Unremarkable appendix. Intraperitoneal space: Unremarkable. No free air. No significant fluid collection. Vasculature: Unruptured 3 cm fusiform aneurysm infrarenal abdominal aortic aneurysm. Lymph nodes: Unremarkable. No enlarged lymph nodes. Urinary bladder: Nonspecific urinary bladder wall thickening. Reproductive: Unremarkable as visualized. Bones/joints: Unremarkable. No acute fracture. Soft tissues: Tiny fat containing umbilical hernia. Other findings: Stigmata of old granulomatous disease. IMPRESSION: Nonspecific urinary bladder wall thickening. Please exclude infection.
[2021-03-19 21:57] LABS: Basophils % 0.7 % (0.1-2.0); Eosinophils # 0.1 K/mm3 (0.0-0.4); Hematocrit 41.4 % (42.0-52.0); Hemoglobin 13.8 g/dL (14.1-18.0); Lymphocytes # 1.2 K/mm3 (0.7-4.5); Lymphocytes % 20.9 % (10-50); Mean Corpuscular HGB Conc 33.2 g/dL (31.8-35.4); Mean Corpuscular Hemoglobin 32.4 pg (27.0-31.2); Mean Corpuscular Volume 97.6 fl (80-94); Mean Platelet Volume 7.9 fl (7.4-10.4); Monocytes # 0.4 K/mm3 (0.1-1.0); Monocytes % 6.3 % (1.7-9.3); Neutrophils # 4.1 K/mm3 (1.8-7.8); Platelet Count 357 K/mm3 (142-424); Red Blood Count 4.24 M/mm3 (4.60-6.20); Red Cell Distribution Width 13.1 % (11.5-17.5); White Blood Count 5.9 K/mm3 (4.8-10.8)
[2021-03-19 22:01] LABS: Chloride 101 mmol/L (98-107); Potassium 4.5 mmoL/L (3.5-5.1); Sodium 136 mmol/L (136-145)
[2021-03-19 22:03] LABS: Amylase 88 U/L (30-110); Blood Urea Nitrogen 19 mg/dl (9-20); Creatinine Clearance Estimated 95 mL/min (50-200); Estimated Glomerular Filt Rate 69 ml/min (>60); GFR (African American) 83 ML/MIN (>60)
[2021-03-19 22:04] LABS: Alanine Aminotransferase 23 U/L (12-78); Albumin Level 4.6 g/dl (3.5-5.0); Albumin/Globulin Ratio 1.4 (1.1-1.8); Alkaline Phosphatase 100 U/L (38-126); Anion Gap 16.5 mEq/L (5-15); Aspartate Amino Transferase 28 U/L (17-59); Bilirubin,Total 0.8 mg/dl (0.2-1.3); Calcium 9.8 mg/dl (8.4-10.2); Carbon Dioxide 23 mmol/L (22.0-30.0); Globulin 3.3 g/dL (1.3-3.2); Glucose 185 mg/dl (74-100); Lipase 99 U/L (23-300); Total Protein,Serum 7.9 g/dl (6.3-8.2)
--- NOTE | 2021-03-19 22:05 | HMH.EDNVD ---
ED Disposition Clinical Impression: Flank pain, acute, AAA (abdominal aortic aneurysm) without rupture Disposition: Home, Self-Care Condition on Discharge: Good Instructions: DI for Acute Abdominal Pain Additional Instructions: call pcp in am for follow up Referrals: Konstantin Dawn MD [Primary Care Provider] - - Critical Care Critical Care Time: No Attestation: On 03/19/21, the high probability of a clinically significant, sudden or life threatening deterioration of the following system(s) required my full and direct attention, intervention and personal management. The time I documented below is in addition to time spent performing reported procedures but includes the following listed in this critical care notation. Medical Decision Making - Medical Records Medical records reviewed: Yes: I reviewed the patient's medical records. - [place] Inquiry Pt receiving controlled substance: No Vital Signs: 03/19/21 21:04 Temperature 97.9 F Temperature Source Oral Pulse Rate [Left] 84 Respiratory Rate 15 Blood Pressure [Right Arm] 120/84 Blood Pressure Mean [Right Arm] 96 02 Sat by Pulse Oximetry 98 Oxygen Delivery Method Room Air - Lab Data Lab results reviewed: Yes: I reviewed the patient's lab results. Lab Results 03/19/21 21:09: Urine Color Yellow, Urine Appearance Clear, Urine pH 5.5, Ur Specific [place] >= 1.030, Urine Protein Trace, Urine Glucose (UA) Trace, Urine Ketones Negative, Urine Blood Negative, Urine Nitrate Negative, Urine Bilirubin Negative, Urine Urobilinogen 0.2, Ur Leukocyte Esterase Negative, Urine RBC None, Urine WBC None, Ur Squamous Epith Cells None, Urine Bacteria None 03/19/21 21:47: WBC 5.9, RBC 4.24 L, Hgb 13.8 L, Hct 41.4 L, MCV 97.6 H, MCH 32.4 H, MCHC 33.2, RDW 13.1, Plt Count 357, MPV 7.9, Neut % (Auto) 70.0, Lymph % (Auto) 20.9, [place] % (Auto) 6.3, Eos % (Auto) 2.0, Baso % (Auto) 0.7, Neut # (Auto) 4.1, Lymph # (Auto) 1.2, [place] # (Auto) 0.4, Eos # (Auto) 0.1, Baso # (Auto) 0.0 03/19/21 21:47: Sodium 136, Potassium 4.5, Chloride 101, Carbon Dioxide 23, Anion Gap 16.5 H, BUN 19, Creatinine 1.10, Estimated Creat Clear 95, Estimated GFR 69, Est GFR ( Amer) 83, Glucose 185 H, Calcium 9.8, Total Bilirubin 0.8, AST 28, ALT 23, Alkaline Phosphatase 100, C-Reactive Protein 1.6, Total Protein 7.9 D, Albumin 4.6, Globulin 3.3 H, Albumin/Globulin Ratio 1.4, Amylase 88, Lipase 99 03/19/21 21:47: ESR 38 H 03/19/21 21:47: Procalcitonin 0.071 Result diagrams: 03/19/21 21:47 03/19/21 21:47 Orders (Tests/Meds): ED MEDICATIONS Generic Name Dose Route Start Last Admin Trade Name Freq PRN Reason Stop Dose Admin Sodium Chloride 1,000 mls @ 999 mls/hr 03/19/21 21:45 03/19/21 21:54 Sod Chlor 0.9% 1000ml Bag IV 03/19/21 22:45 999 mls/hr .Q1H1M YADY Administration Discontinued Medications Generic Name Dose Route Start Last Admin Trade Name Freq PRN Reason Stop Dose Admin Ketorolac Tromethamine 30 mg 03/19/21 21:41 03/19/21 21:54 Ketorolac 30mg/Ml Vial IV 03/19/21 21:42 30 mg ONCE ONE Administration Morphine Sulfate 4 mg 03/19/21 22:45 03/19/21 22:51 Morphine 4mg/Ml Syringe IV 03/19/21 22:46 4 mg ONCE ONE Administration Ondansetron HCl 4 mg 03/19/21 21:41 03/19/21 21:54 Ondansetron 4mg/2ml Vial IV 03/19/21 21:42 4 mg ONCE ONE Administration Prochlorperazine Edisylate 10 mg 03/19/21 22:45 03/19/21 22:57 Prochlorperazine 10mg/2ml Vial IV 03/19/21 22:46 10 mg ONCE ONE Administration - CT Data CT Scan: Abdomen, Pelvis Time Received: 23:[address] Reviewed: Yes: I have viewed the radiologist's interpretation Preliminary Findings: Normal/NAD Medical Decision Narrative: no def etiology of lt flank pain - stable exam and labs - has aaa also Nausea/Vomiting/Diarrhea HPI - General Chief complaint: Abdominal Pain Stated complaint: kidney pain Time Seen by Provider: 03/19/21 22:05 Mode of Arrival: Family Vehicle Source of I
[2021-03-19 22:10] LABS: C-Reactive Protein 1.6 mg/L (0-4)
[2021-03-19 22:24] LABS: Erythrocyte Sedimentation Rate 38 mm/hr (0-20)
[2021-03-19 23:05] LABS: Procalcitonin 0.071 ng/mL (0.0-2.0)
[2021-03-20 00:10] VITALS: BP 125/77; PULSE 76; RESP 16; TEMP 36.9; O2SAT 97
== END 2021-03-20 00:22 | disposition home or self-care (01) ==
PROVIDERS: Emergency Provider Emergency Medicine; PCP Internal Medicine Adolescent Medicine
DX: I71.4 Abdominal aortic aneurysm, without rupture (principal); R10.12 Left upper quadrant pain; I25.2 Old myocardial infarction; I10 Essential (primary) hypertension; E11.9 Type 2 diabetes mellitus without complications; I25.10 Atherosclerotic heart disease of native coronary artery without angina pectoris; J44.9 Chronic obstructive pulmonary disease, unspecified; E78.5 Hyperlipidemia, unspecified; Z87.891 Personal history of nicotine dependence; Z79.899 Other long term (current) drug therapy
CPT/HCPCS: 74176; 80053; 81001; 82150; 83690; 84145; 85025; 85651; 86140; 96365; 96375; 99282; J2405

== ENCOUNTER 2021-03-21 13:40 | Outpatient (CLI) | payer BC, SELFPAY ==
[2021-03-21 13:43] VITALS: BMI 40.7
--- NOTE | 2021-03-21 13:44 | PC.NURSE ---
1344-collected labs via peripheral stick for ct scan;sent specimen to lab
[2021-03-21 13:58] LABS: Basophils % 0.8 % (0.1-2.0); Eosinophils # 0.1 K/mm3 (0.0-0.4); Eosinophils % 2.7 % (0.1-12.0); Hematocrit 37.6 % (42.0-52.0); Hemoglobin 12.5 g/dL (14.1-18.0); Lymphocytes # 0.9 K/mm3 (0.7-4.5); Lymphocytes % 18.7 % (10-50); Mean Corpuscular HGB Conc 33.2 g/dL (31.8-35.4); Mean Corpuscular Hemoglobin 32.4 pg (27.0-31.2); Mean Corpuscular Volume 97.6 fl (80-94); Mean Platelet Volume 7.8 fl (7.4-10.4); Monocytes # 0.3 K/mm3 (0.1-1.0); Monocytes % 6.9 % (1.7-9.3); Neutrophils # 3.3 K/mm3 (1.8-7.8); Neutrophils % 71.1 % (37.0-80.0); Platelet Count 320 K/mm3 (142-424); Red Blood Count 3.86 M/mm3 (4.60-6.20); Red Cell Distribution Width 13.1 % (11.5-17.5); White Blood Count 4.6 K/mm3 (4.8-10.8)
[2021-03-21 14:07] LABS: Chloride 105 mmol/L (98-107); Potassium 4.3 mmoL/L (3.5-5.1); Sodium 136 mmol/L (136-145)
[2021-03-21 14:10] LABS: Alanine Aminotransferase 25 U/L (12-78); Albumin Level 4.2 g/dl (3.5-5.0); Albumin/Globulin Ratio 1.5 (1.1-1.8); Alkaline Phosphatase 84 U/L (38-126); Anion Gap 15.3 mEq/L (5-15); Aspartate Amino Transferase 28 U/L (17-59); Bilirubin,Total 0.6 mg/dl (0.2-1.3); Blood Urea Nitrogen 19 mg/dl (9-20); Calcium 9.5 mg/dl (8.4-10.2); Carbon Dioxide 20 mmol/L (22.0-30.0); Creatinine Clearance Estimated 115 mL/min (50-200); Estimated Glomerular Filt Rate 69 ml/min (>60); GFR (African American) 83 ML/MIN (>60); Globulin 2.8 g/dL (1.3-3.2); Glucose 202 mg/dl (74-100)
== END 2021-03-21 13:50 | disposition home or self-care (01) ==
LOC: INF 13:41
PROVIDERS: PCP Internal Medicine Adolescent Medicine; Visit Provider Internal Medicine Medical Oncology
DX: C34.90 Malignant neoplasm of unspecified part of unspecified bronchus or lung (principal)
CPT/HCPCS: 80053; 85025

== ENCOUNTER → 2021-03-22 08:50 | Outpatient (CLI) | payer BC, SELFPAY ==
--- NOTE | 2021-03-22 08:53 | CT_ITS ---
PROCEDURE: CT CHEST W CON CLINCAL INDICATION: LUNG CANCER COMPARISON: CT CT CHEST WO/W CON from 08/14/[address] CHEST WO/W CON from 12/24/2020 TECHNIQUE: IV Contrast: 75ml Isovue 370 Axial images obtained with sagittal and coronal reformats. All CT scans at the facility use one or more dose reduction, viz: automated exposure control, ma/kV adjustment per patient size (including targeted exams where dose is matched to indication, i.e. head), or iterative reconstruction technique. FINDINGS: HEART AND MEDIASTINAL STRUCTURES: No mediastinal or hilar or adenopathy. There is some increased density AP window on the left which may be related to collapse left atrial appendage having a somewhat similar appearance on older exam 08/14/2020.. LUNGS AND PLEURAL SPACES: COPD with centrilobular emphysema and bullous changes in both upper lobes. 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 No evidence of recurrence neoplasm. There is a stable 3 mm nodular opacity in the right upper lobe anteriorly image 30 series 4. There is evidence of old granulomatous disease.. BONY STRUCTURES: No acute bony abnormalities apparent. UPPER ABDOMEN: Please see abdomen report ADDITIONAL FINDINGS: No other significant abnormalities. 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 COPD with centrilobular emphysema and scattered bulla Dictated by: Froilan Grajeda MD 03/23/2021 10:00 Froilan Grajeda MD in [facility] 03/23/2021 10:00
--- NOTE | 2021-03-22 08:53 | CT_ITS ---
PROCEDURE: CT ABDOMEN PELVIS W CON CLINICAL INDICATION: LUNG CANCER COMPARISON: CT ABDPELW/O CT ABD PELVIS W/O CONTRAST from 08/17/[address] ABDOMEN PELVIS WO/W CON from 12/24/2020 MR MR ABDOMEN WO/W CON from 01/01/2021 TECHNIQUE: IV Contrast: 75ML Isovue 370 Oral Contrast None Axial images obtained with sagittal and coronal reformats. All CT scans at the facility use one or more dose reduction, viz: automated exposure control, ma/kV adjustment per patient size (including targeted exams where dose is matched to indication, i.e. head), or iterative reconstruction technique. FINDINGS: Previously noted area of enhancement in the right hepatic lobe is somewhat less prominent centrally and unchanged peripherally. There has been a prior cholecystectomy with mild biliary ectasia which is somewhat more prominent compared to the previous study. No new focal liver lesions. The spleen, adrenal glands, and kidneys have an unremarkable appearance. Low-density changes are once again noted in the pancreatic head at approximately 2.5 cm. Previous MRI demonstrated multiple small cysts in this region.. This has been stable compared to multiple previous exams. The interval increase in biliary dilatation however is somewhat worrisome as common bile duct is immediately lateral to this lesion. Differential diagnosis includes side branch IPMN or serous cystic neoplasm. No intestinal obstruction or free air. Unremarkable appendix. No pelvic mass or abnormal fluid collection. There is mild dilatation of the infrarenal portion of the aorta measuring up to 2.9 cm. No acute bony findings. IMPRESSION: 1. Overall stable CT appearance of the abdomen and pelvis. The enhancing area in the right hepatic lobe is somewhat less prominent centrally and unchanged peripherally. No convincing evidence of metastatic disease. 2. Low-density changes once again noted in the pancreatic head which appear stable. Differential diagnosis would include a side branch IPMN or serous cystic neoplasm. There is however some increase in biliary ductal dilatation. Consider gastroenterology consult. Dictated by: Froilan Grajeda MD 03/23/2021 10:41 Froilan Grajeda MD in [facility] 03/23/2021 10:41
== END ==
PROVIDERS: PCP Internal Medicine Adolescent Medicine; Visit Provider Internal Medicine Medical Oncology
DX: C34.90 Malignant neoplasm of unspecified part of unspecified bronchus or lung (principal)
CPT/HCPCS: 71260; 74177; Q9967

== ENCOUNTER 2021-06-16 21:07 | Emergency (ER) | payer BC, SELFPAY ==
[2021-06-16 21:08] VITALS: BP 131/76; PULSE 88; RESP 18; TEMP 36.8; O2SAT 98; BMI 39.9
--- NOTE | 2021-06-16 21:33 | HMH.EDGENADL ---
ED Disposition Clinical Impression: Degenerative disc disease, cervical, Cervical radicular pain, Lumbar radiculopathy Disposition: Home, Self-Care Condition on Discharge: Good Instructions: DI for Acute Pain -- Adult Additional Instructions: call pcp in am Referrals: Konstantin Dawn MD [Primary Care Provider] - - Critical Care Critical Care Time: No Attestation: On 06/16/21, the high probability of a clinically significant, sudden or life threatening deterioration of the following system(s) required my full and direct attention, intervention and personal management. The time I documented below is in addition to time spent performing reported procedures but includes the following listed in this critical care notation. Medical Decision Making - Medical Records Medical records reviewed: Yes: I reviewed the patient's medical records. - [place] Inquiry Pt receiving controlled substance: No Vital Signs: 06/16/21 21:08 Temperature 98.2 F Temperature Source Oral Pulse Rate [Right] 88 Respiratory Rate 18 Blood Pressure [Right Arm] 131/76 Blood Pressure Mean [Right Arm] 94 02 Sat by Pulse Oximetry 98 Oxygen Delivery Method Room Air Orders (Tests/Meds): ED MEDICATIONS Discontinued Medications Generic Name Dose Route Start Last Admin Trade Name [place] PRN Reason Stop Dose Admin Dexamethasone Sodium Phosphate 8 mg 06/16/21 21:29 Dexamethasone 4mg/Ml 1ml Vial IM 06/16/21 21:30 ONCE ONE Ketorolac Tromethamine 60 mg 06/16/21 21:29 Ketorolac 60mg/2ml Vial IM 06/16/21 21:30 ONCE ONE Orphenadrine Citrate 60 mg 06/16/21 21:29 Orphenadrine Citrate 60mg/2ml Vial IM 06/16/21 21:30 ONCE ONE General Adult HPI - General Chief complaint: PAIN Stated complaint: lower back and neck pain Time Seen by Provider: 06/16/21 21:33 Mode of Arrival: Family Vehicle Source of Information: Patient, Medical Record Limitations: No Limitations Description of Symptoms (Recalled from ER Triage Doc. by RN): Pt c/o chronic posterior neck with radiating parethesia down B arms. Pt also c/o chronic Lower back pain thatn is worse on R side than L. Pt reports he takes Oxycodone 10mg TID that his pain clinic md prescribes. Pt denies any injury or trauma. He reports that his chronic pain is just worse and I can't get under control . Denies any fever, chills, n/v/d, or urinary & bowel incontience. - History of Present Illness HPI narrative: pt with acute excerbation of chronic pain - no fever and no rash and no neuro sx Onset (ago): hour(s) Location: neck, back Radiation: extremity Severity: moderate Consistency: constant Associated symptoms: denies other symptoms Treatments prior to arrival: none - Related Data Home Medications Medication Instructions Recorded Confirmed clonazepam 0.5 mg tablet 0.5 mg PO BID tab 10/06/19 04/11/21 gabapentin 800 mg tablet 800 mg PO TID 10/06/19 04/11/21 Ergocalciferol (Vitamin D2) 1 tab PO WEEKLY 11/17/19 04/11/21 [Drisdol] glipizide 10 mg tablet, extended 10 mg PO DAILY tab 01/26/20 04/11/21 release 24 hr oxycodone 10 mg tablet 10 mg PO Q4-6H PRN tab 09/12/20 04/11/21 methocarbamoL [Methocarbamol 500mg 500 mg PO BID 01/03/21 04/11/21 Tablet] metoprolol tartrate 25 mg tablet 25 mg PO BID tab 01/08/21 04/11/21 sitagliptin 50 mg-metformin 1,000 1 tab PO ONCE tab 04/11/21 04/11/21 mg tablet Previous Rx's Medication Instructions Recorded lansoprazole 30 mg capsule,delayed 30 mg PO QHS #90 cap 11/03/18 release lovastatin 20 mg tablet 20 mg PO QHS #90 tab 11/04/19 spironolactone 50 mg tablet See Rx Instructions .ROUTE 01/22/21 .COMPLEX #30 tablet famotidine 20 mg tablet See Rx Instructions .ROUTE 03/25/21 .COMPLEX #30 tab clopidogrel 75 mg tablet See Rx Instructions .ROUTE 04/22/21 .COMPLEX #30 tab lisinopril 5 mg tablet See Rx Instructions .ROUTE 04/22/21 .COMPLEX #30 tab torsemide 100 mg tablet See Rx Instructions
[2021-06-16 21:38] VITALS: BP 106/62; PULSE 80; RESP 18; TEMP 36.8; O2SAT 100
== END 2021-06-16 21:49 | disposition home or self-care (01) ==
PROVIDERS: Emergency Provider Emergency Medicine; PCP Internal Medicine Adolescent Medicine
DX: M54.12 Radiculopathy, cervical region (principal); M50.30 Other cervical disc degeneration, unspecified cervical region; M54.16 Radiculopathy, lumbar region; I25.10 Atherosclerotic heart disease of native coronary artery without angina pectoris; J44.9 Chronic obstructive pulmonary disease, unspecified; Z87.891 Personal history of nicotine dependence; Z79.899 Other long term (current) drug therapy
CPT/HCPCS: 96372; 99281

== ENCOUNTER → 2021-06-17 13:53 | Outpatient (CLI) | payer BC, SELFPAY ==
[2021-06-17 15:46] LABS: Chloride 108 mmol/L (98-107); Sodium 138 mmol/L (136-145)
[2021-06-17 15:47] LABS: Potassium 4.9 mmoL/L (3.5-5.1)
[2021-06-17 15:49] LABS: Alanine Aminotransferase 27 U/L (12-78); Albumin Level 4.1 g/dl (3.5-5.0); Albumin/Globulin Ratio 1.6 (1.1-1.8); Alkaline Phosphatase 67 U/L (38-126); Anion Gap 12.9 mEq/L (5-15); Aspartate Amino Transferase 29 U/L (17-59); Bilirubin,Total 0.5 mg/dl (0.2-1.3); Blood Urea Nitrogen 23 mg/dl (9-20); Carbon Dioxide 22 mmol/L (22.0-30.0); Estimated Glomerular Filt Rate 62 ml/min (>60); GFR (African American) 75 ML/MIN (>60); Globulin 2.6 g/dL (1.3-3.2); Total Protein,Serum 6.7 g/dl (6.3-8.2)
[2021-06-17 15:50] LABS: Calcium 9.5 mg/dl (8.4-10.2); Glucose 175 mg/dl (74-100)
[2021-06-17 16:24] LABS: Hemoglobin A1C 7.6 % (4.0-6.0)
== END ==
PROVIDERS: PCP Internal Medicine Adolescent Medicine; Visit Provider Internal Medicine Adolescent Medicine
DX: E11.9 Type 2 diabetes mellitus without complications (principal); R73.9 Hyperglycemia, unspecified; Z79.84 Long term (current) use of oral hypoglycemic drugs
CPT/HCPCS: 36415; 80053; 83036

== ENCOUNTER 2021-06-25 22:15 | Observation (INO) | payer BC, SELFPAY ==
[2021-06-25 22:08] VITALS: BP 143/87; PULSE 101; RESP 18; TEMP 36.8; O2SAT 93; BMI 38.2
[2021-06-25 22:13] VITALS: BMI 32.6
--- NOTE | 2021-06-25 22:13 | XR_ITS ---
PROCEDURE INFORMATION: Exam: XR Chest Exam date and time: 06/25/2021 10:13 PM Age: 60 years old Clinical indication: Sternal or substernal pain; Additional info: Cp TECHNIQUE: Imaging protocol: XR of the chest. Views: 2 views. COMPARISON: CT CHEST W CON 03/22/2021 9:02 AM FINDINGS: Lungs: Advanced emphysema. No lobar consolidation. Pleural spaces: Unremarkable. No pleural effusion. No pneumothorax. Heart/Mediastinum: Unremarkable. No cardiomegaly. Bones/joints: Unremarkable. IMPRESSION: Chronic changes without acute process.
--- NOTE | 2021-06-25 22:13 | ECG_ITS ---
APPROVED REPORT Exam: Resting ECG HR:95 bpm ECG Measurements Heart Rate 95 AXES MT 150 P 37 QRSd 87 QRS 44 QT 360 T 71 QTc 413 Conclusion SINUS RHYTHM WITH OCCASIONAL VENTRICULAR PREMATURE COMPLEXES MINIMAL ST DEPRESSION [0.025+ mV ST DEPRESSION] BORDERLINE ECG UNCONFIRMED REPORT Electronically signed by : Philip Khan MD 06/26/2021 22:22:26
[2021-06-25 22:23] LABS: Basophils # 0.1 K/mm3 (0-0.2); Eosinophils # 0.2 K/mm3 (0.0-0.4); Eosinophils % 3.8 % (0.1-12.0); Hematocrit 37.2 % (42.0-52.0); Hemoglobin 12.3 g/dL (14.1-18.0); Lymphocytes # 1.4 K/mm3 (0.7-4.5); Lymphocytes % 26.7 % (10-50); Monocytes # 0.5 K/mm3 (0.1-1.0); Neutrophils % 59.5 % (37.0-80.0); Platelet Count 269 K/mm3 (142-424); Red Blood Count 3.72 M/mm3 (4.60-6.20); Red Cell Distribution Width 13.7 % (11.5-17.5); White Blood Count 5.1 K/mm3 (4.8-10.8)
[2021-06-25 22:33] VITALS: BP 122/59; PULSE 94; RESP 20; O2SAT 93
[2021-06-25 22:43] LABS: Chloride 95 mmol/L (98-107); Potassium 3.9 mmoL/L (3.5-5.1); Sodium 131 mmol/L (136-145)
[2021-06-25 22:45] LABS: Alanine Aminotransferase 18 U/L (12-78); Aspartate Amino Transferase 25 U/L (17-59); Blood Urea Nitrogen 41 mg/dl (9-20); Creatinine Clearance Estimated 58 mL/min (50-200); Estimated Glomerular Filt Rate 37 ml/min (>60); GFR (African American) 44 ML/MIN (>60)
[2021-06-25 22:46] LABS: Albumin Level 4.7 g/dl (3.5-5.0); Albumin/Globulin Ratio 1.5 (1.1-1.8); Alkaline Phosphatase 67 U/L (38-126); Anion Gap 10.9 mEq/L (5-15); Bilirubin,Total 0.8 mg/dl (0.2-1.3); Calcium 9.7 mg/dl (8.4-10.2); Carbon Dioxide 29 mmol/L (22.0-30.0); Globulin 3.2 g/dL (1.3-3.2); Glucose 170 mg/dl (74-100); Magnesium 1.4 mg/dl (1.6-2.3); Total Protein,Serum 7.9 g/dl (6.3-8.2)
[2021-06-25 22:48] LABS: Erythrocyte Sedimentation Rate 94 mm/hr (0-20)
[2021-06-25 22:52] LABS: C-Reactive Protein 59.5 mg/L (0-4)
[2021-06-25 22:59] LABS: NT Pro Brain Natriuretic Pep. 260 pg/mL (0-125)
[2021-06-25 23:00] VITALS: BP 112/72; PULSE 84; RESP 18; O2SAT 96
--- NOTE | 2021-06-25 23:13 | HMH.EDCP ---
ED Disposition Clinical Impression: Unstable angina pectoris, Obesity (BMI 30-39.9) DM (diabetes mellitus) Qualifiers: Diabetes mellitus type: type 2 Diabetes mellitus regional [employer] insulin use: unspecified correction insulin use status Diabetes mellitus complication status: with other specified complication Qualified Code(s): E11.69 - Type 2 diabetes mellitus with other specified complication Disposition: Admitted as Observation Condition on Discharge: Good - Critical Care Critical Care Time: No Attestation: On 06/25/21, the high probability of a clinically significant, sudden or life threatening deterioration of the following system(s) required my full and direct attention, intervention and personal management. The time I documented below is in addition to time spent performing reported procedures but includes the following listed in this critical care notation. Medical Decision Making - Medical Records Medical records reviewed: Yes: I reviewed the patient's medical records. - [place] Inquiry Pt receiving controlled substance: No Vital Signs: 06/25/21 22:08 06/25/21 22:33 Temperature 98.2 F Temperature Source Oral Pulse Rate 94 H Pulse Rate [Right] 101 H Respiratory Rate 18 20 Blood Pressure 122/59 L Blood Pressure [Right Arm] 143/87 H Blood Pressure Mean 67 Blood Pressure Mean [Right Arm] 105 02 Sat by Pulse Oximetry 93 L 93 L - Lab Data Lab results reviewed: Yes: I reviewed the patient's lab results. Lab Results 06/25/21 22:15: WBC 5.1, RBC 3.72 L, Hgb 12.3 L, Hct 37.2 L, MCV 100.0 H, MCH 33.0 H, MCHC 33.0, RDW 13.7, Plt Count 269, MPV 8.0, Neut % (Auto) 59.5, Lymph % (Auto) 26.7, [place] % (Auto) 9.0, Eos % (Auto) 3.8, Baso % (Auto) 1.0, Neut # (Auto) 3.0, Lymph # (Auto) 1.4, [place] # (Auto) 0.5, Eos # (Auto) 0.2, Baso # (Auto) 0.1, ESR 94 H 06/25/21 22:15: Sodium 131 L, Potassium 3.9, Chloride 95 L, Carbon Dioxide 29, Anion Gap 10.9, BUN 41 H, Creatinine 1.90 H, Estimated Creat Clear 58, Estimated GFR 37 L, Est GFR ( Amer) 44 L, Glucose 170 H, Calcium 9.7, Magnesium 1.4 L, Total Bilirubin 0.8, AST 25, ALT 18, Alkaline Phosphatase 67, Troponin I < 0.01, C-Reactive Protein 59.5 H, Total Protein 7.9, Albumin 4.7, Globulin 3.2, Albumin/Globulin Ratio 1.5, Procalcitonin 0.095 06/25/21 22:15: NT-Pro-B Natriuret Pep 260 H 06/25/21 23:15: SARS-CoV-2 (PCR) Not detected, Influenza A Untype (PCR) Not detected, Influenza Type B (PCR) Not detected Result diagrams: 06/25/21 22:15 06/25/21 22:15 Orders (Tests/Meds): ED MEDICATIONS Generic Name Dose Route Start Last Admin Trade Name Freq PRN Reason Stop Dose Admin Sodium Chloride 1,000 mls @ 999 mls/hr 06/25/21 22:15 06/25/21 22:23 Sod Chlor 0.9% 1000ml Bag IV 06/25/21 23:15 999 mls/hr .Q1H1M YADY Administration Discontinued Medications Generic Name Dose Route Start Last Admin Trade Name Freq PRN Reason Stop Dose Admin Aspirin 324 mg 06/25/21 22:14 06/25/21 22:23 Aspirin 81mg Chewable Tablet PO 06/25/21 22:15 324 mg ONCE ONE Administration Nitroglycerin 0.4 mg 06/25/21 22:14 06/25/21 22:22 Nitroglycerin 0.4mg Sl Tablet SL 06/25/21 22:15 0.4 mg ONCE ONE Administration ORDERS Category Date Time Status Troponin I Q3H Lab 06/26/21 01:15 Ordered Troponin I Q3H Lab 06/26/21 04:15 Ordered UA [Urinalysis and Microscopic] Stat Lab 06/25/21 22:13 Ordered - Radiology Data #1 Image(s): Chest Image Reviewed: Yes I have reviewed radiologist's interpretation Preliminary Findings: Normal/NAD - ECG Data Tracing #1 Normal Sinus Rhythm: Yes Ischemic changes: non-specific ST-T wave changes Medical Decision Narrative: new onset of chest pain x 2 today with known ht disease - will admit with unstable angina Chest Pain HPI - General Chief Complaint: Chest Pain Stated Complaint: Chest Pain Time Seen by Provider: 06/25/21 22:30 Mode of Arrival: EMS Source of Information: Patient, EMS, [facility]
[2021-06-25 23:18] LABS: Troponin I < 0.01 ng/ml (0.00-0.034)
[2021-06-25 23:21] LABS: Procalcitonin 0.095 ng/mL (0.0-2.0)
[2021-06-25 23:30] VITALS: BP 114/74; PULSE 84; RESP 18; O2SAT 96
[2021-06-25 23:39] LABS: Coronavirus 19, PCR Not Detected (NotDetected); Influenza A, PCR Not Detected (NotDetected); Influenza B, PCR Not Detected (NotDetected)
[2021-06-26] VITALS (12 sets, daily range): BP systolic 100–147; BP diastolic 51–83; PULSE 70–96; RESP 12–18; TEMP 36.6–36.8; O2SAT 94–100; BMI 35.4
--- NOTE | 2021-06-26 00:02 | PC.NURSE ---
House notified for bed assignment
--- NOTE | 2021-06-26 00:05 | PC.NURSE ---
Pt will be boarding in ER at this time.
[2021-06-26 02:26] LABS: Troponin I < 0.01 ng/ml (0.00-0.034)
[2021-06-26 03:35] LABS: Microscopic, Urine URINE MICROSCOPIC (MICROSCOPIC)
[2021-06-26 03:36] LABS: Appearance,Urine CLEAR (Clear); Bilirubin,Urine Negative (Negative); Blood, Urine Negative (Negative); Color,Urine YELLOW (Yellow); Glucose,Urine (UA) Negative (Negative); Ketones,Urine Negative (Negative); Leukocyte Esterase,Urine Negative (Negative); Nitrate,Urine Negative (Negative); PH,Urine 5.5 (5.0-8.5); Protein,Urine Negative (Negative); Specific Gravity, Urine 1.015 (1.005-1.030); Urobilinogen,Urine 0.2 EU/dl (0.2)
--- NOTE | 2021-06-26 03:47 | ECG_ITS ---
APPROVED REPORT Exam: Resting ECG HR:75 bpm ECG Measurements Heart Rate 75 AXES PA 156 P 52 QRSd 85 QRS 42 QT 407 T 68 QTc 436 Conclusion SINUS RHYTHM LOW QRS VOLTAGE IN PRECORDIAL LEADS [QRS DEFLECTION < 1.0 mV IN CHEST LEADS] BORDERLINE ECG UNCONFIRMED REPORT Electronically signed by : Philip Khan MD 06/26/2021 22:21:40
[2021-06-26 03:55] LABS: Bacteria,Urine Trace /lpf
[2021-06-26 04:54] LABS: Basophils % 0.9 % (0.1-2.0); Eosinophils # 0.2 K/mm3 (0.0-0.4); Eosinophils % 5.4 % (0.1-12.0); Hematocrit 34.8 % (42.0-52.0); Hemoglobin 11.4 g/dL (14.1-18.0); Lymphocytes % 24.9 % (10-50); Mean Corpuscular HGB Conc 32.9 g/dL (31.8-35.4); Mean Corpuscular Volume 100.4 fl (80-94); Mean Platelet Volume 7.9 fl (7.4-10.4); Monocytes # 0.4 K/mm3 (0.1-1.0); Monocytes % 10.1 % (1.7-9.3); Neutrophils # 2.4 K/mm3 (1.8-7.8); Neutrophils % 58.8 % (37.0-80.0); Platelet Count 249 K/mm3 (142-424); Red Blood Count 3.46 M/mm3 (4.60-6.20); Red Cell Distribution Width 13.7 % (11.5-17.5); White Blood Count 4.1 K/mm3 (4.8-10.8)
[2021-06-26 05:14] LABS: Troponin I < 0.01 ng/ml (0.00-0.034)
[2021-06-26 05:21] LABS: Chloride 101 mmol/L (98-107); Sodium 131 mmol/L (136-145)
[2021-06-26 05:22] LABS: Potassium 4.3 mmoL/L (3.5-5.1)
[2021-06-26 05:24] LABS: Anion Gap 10.3 mEq/L (5-15); Blood Urea Nitrogen 37 mg/dl (9-20); Carbon Dioxide 24 mmol/L (22.0-30.0); Cholesterol 179 mg/dl (140-200); Creatinine Clearance Estimated 65 mL/min (50-200); Estimated Glomerular Filt Rate 42 ml/min (>60); GFR (African American) 50 ML/MIN (>60); Triglycerides 220 mg/dl (30-150); VLDL Cholesterol 44 mg/dL (0-40)
[2021-06-26 05:25] LABS: Glucose 122 mg/dl (74-100); HDL Cholesterol 30 mg/dl (40-60); Magnesium 1.5 mg/dl (1.6-2.3)
[2021-06-26 05:36] LABS: Direct LDL Cholesterol 107.65 mg/dL (100-129)
[2021-06-26 05:39] LABS: POC Glucose,Bedside 106 (70-110)
--- NOTE | 2021-06-26 07:36 | P.CONPHA_ITS ---
[facility] Pharmacy VTE Monitoring - Patient Demographics Admission date: 06/26/21 Report Date: 06/26/21 Time: 07:36 Allergies/Adverse Reactions: Patient Allergies naproxen [NAPROXEN] Allergy (Mild, Verified 06/26/21 00:20) NA-NAUSEA/VOMITING tramadol [TRAMADOL] Allergy (Mild, Verified 06/26/21 00:20) NA-NAUSEA Height: 1.73 m Weight: 105.885 kg Patient Problems: Current Active Problems Unstable angina pectoris (Acute) Obesity (BMI 30-39.9) (Acute) DM (diabetes mellitus) (Chronic) - VTE Risk Labs: VTE Related Lab Results Hgb 11.4 g/dL (14.1-18.0) L 06/26/21 04:36 Hct 34.8 % (42.0-52.0) L 06/26/21 04:36 Plt Count 249 K/mm3 (142-424) 06/26/21 04:36 BUN 37 mg/dl (9-20) H 06/26/21 04:36 Creatinine 1.70 mg/dl (0.66-1.25) H 06/26/21 04:36 Estimated Creat Clear 65 mL/min (50-200) 06/26/21 04:36 Clinical Trial Participant: No - Prophylaxis VTE Prophylaxis Ordered?: Yes Types of VTE Prophylaxis: TEDS Knee High
--- NOTE | 2021-06-26 08:00 | CA_ITS ---
APPROVED REPORT EXAM: Comprehensive 2D, Doppler, and color-flow Echocardiogram Abalone Diver: Marissa Flaherty CRT Ht: 5 ft 8 in Wt: 215lbs BSA: 2.11 BP: 147/78 mmHg Indications: Chest Pain, COPD, Shortness of Breath, Diabetes, Hyperlipidemia, Hypertension/HDD, lung ca, cad, cva, old mi, pad, tia, ulcer, ablation 2D Dimensions LVOT 1.90 cm (M/F) 1.5-2.5 LA Volume 32.20 mL LA Volume Index 15.30 mL/m2 (M/F) 16-34 M-Mode Dimensions RVDd 2.35 cm (0.9-2.6) LA Diam 4.16 cm (1.9-4.0) LVDd 4.35 cm (3.5-5.7) Ao Diam 3.87 cm (2.0-3.7) LVDs 3.00 cm (3.5-5.7) IVSd 1.53 cm (0.6-1.1) PWd 0.64 cm (0.6-1.1) EF (Teich) 59.00% FS 31.00% EDV (Teich) 85.40 mL ESV (Teich) 35.00 mL LV Diastology E Decel Time 130.00 (160-240 msec) E/A Ratio 0.81 Aortic Valve AO Peak GR. 5.20 mmHg Mitral Valve MV A Velocity 56.00 (40-130 cm/s) E/A Ratio 0.81 MV Decel. Time 130.00 (160-240 ms) Pulmonary Valve PV Peak Velocity 115.00 (50-150 cm/s) Tricuspid Valve TR P. Velocity 181.00 cm/s RAP Estimate 10.00 mmHg RVSP 23.10 mmHg Left Ventricle Left atrium is mildly enlarged, left ventricle is normal size, mild concentric left ventricular hypertrophy, visually estimated ejection fraction is 55% with no regional wall motion abnormality, Doppler evidence of impaired LV relaxation seen, there is no tissue Doppler performed. Right Ventricle Right atrium and right ventricle are qualitatively mildly enlarged with normal contractility. Aortic Valve Aortic valve is minimally thickened and fibrosed there is no aortic stenosis or aortic insufficiency. Mitral Valve Mitral valve leaflets are minimally thickened, there is mild mitral regurgitation. Tricuspid Valve Tricuspid valve is grossly normal, there is trace tricuspid regurgitation, tricuspid regurgitation jet velocity is inadequate for calculation of the right ventricular systolic pressure. Pulmonic Valve Pulmonic valve is poorly visualized. Great Vessels Aortic root is normal size. Inferior vena cava is normal size with normal inspiratory collapse. Pericardium No significant pericardial effusion noted. Conclusion 1. Mild biatrial enlargement, normal left ventricular size, mild concentric left ventricular hypertrophy, visually estimated ejection fraction of 55% with no regional wall motion abnormality, Doppler evidence of impaired LV relaxation, there is no tissue Doppler performed. 2. Mildly enlarged right ventricle with normal contractility. 3. Mild mitral and trace tricuspid regurgitation. 4. No significant pericardial effusion noted. 5. Inferior vena cava normal size with normal inspiratory collapse. Electronically signed by : James Raza MD 06/26/2021 19:19:27
--- NOTE | 2021-06-26 09:57 | HMH.PHAINT ---
VERIFIED HOME MEDICATIONS WITH LIST FROM PHARMACY
--- NOTE | 2021-06-26 11:04 | HMH.HPDC ---
General - General Admission date:: 06/26/21 Discharge date: 06/26/21 *Admission Date: 06/26/21 *Chief complaint: Shortness of air/chest pain *History of present illness: 60-year-old male with diabetes, morbid obesity, history of coronary disease and diastolic CHF who presented to the emergency department with chest pressure, and somewhat atypical pain. Given his significant history of disease he was admitted to hospital for rule out ME overnight. [facility] History I have reviewed the patient's past medical history: Yes Medical History: Reports:: Arrhythmia, Cancer (Lung Cancer), Chronic Obstructive Pulmonary Disease (COPD), Coronary Artery Disease, Cerebrovascular Accident, Diabetes Mellitus Type 2, Gastrointestinal Bleed, Hyperlipidemia, Hypertension, Lung Disease, Migraine, Myocardial Infarction, Osteoporosis, Peripheral Artery Disease, Renal Insufficiency, Transient Ischemic Attacks (TIA), Ulcer Denies:: Diabetes Mellitus Type 1, Internal Pacemaker, MRSA, Seizures *Have you ever received a pneumonia vaccine?: No *Have you received a flu vaccine this season?: No Other Medical History: Reports: Anemia, Arthritis, Cataracts, Chemotherapy, Osteoporosis, Radiation Therapy, Other (YAMILE, former smoker 8 months ago). Denies: Blood Transfusion Reaction Laterality Cases: Left: Arthroscopy Shoulder, Right: Arthroscopy Knee Other Surgeries: Yes: No Previous Surgery, Cardiac Catheterization, Cardiac Surgery, Cholecystectomy, Colonoscopy, EGD, Other. No: Pacemaker Amputation: No Fractures: No - *Social History Smoking Status: Former smoker Tobacco Type: cigarettes # Packs/Day (cigarettes): 1 #Yrs smoked (if former smoker): 40 Alcohol Intake: former Alcohol Intake Frequency:: holidays/special occasions only Substance Use Type: marijuana *Occupational Status:: unemployed Housing: house Household Members: children *Travel in the last 8 weeks: None Family Hx:: No significant family history Review of Systems - Review of Systems Review of systems:: pertinent systems reviewed and negative unless documented below - *Neurologic Denies seizure-like activity Exam Vital signs and Labs for Last 24 Hours: Temp Pulse Resp BP Pulse Ox 97.9 F 82 15 119/75 97 06/26/21 05:00 06/26/21 05:00 06/26/21 05:00 06/26/21 05:00 06/26/21 05:00 Laboratory Results - last 24 hr 06/25/21 22:15: WBC 5.1, RBC 3.72 L, Hgb 12.3 L, Hct 37.2 L, MCV 100.0 H, MCH 33.0 H, MCHC 33.0, RDW 13.7, Plt Count 269, MPV 8.0, Neut % (Auto) 59.5, Lymph % (Auto) 26.7, Lawrence % (Auto) 9.0, Eos % (Auto) 3.8, Baso % (Auto) 1.0, Neut # (Auto) 3.0, Lymph # (Auto) 1.4, Lawrence # (Auto) 0.5, Eos # (Auto) 0.2, Baso # (Auto) 0.1, ESR 94 H 06/25/21 22:15: Sodium 131 L, Potassium 3.9, Chloride 95 L, Carbon Dioxide 29, Anion Gap 10.9, BUN 41 H, Creatinine 1.90 H, Estimated Creat Clear 58, Estimated GFR 37 L, Est GFR ( Amer) 44 L, Glucose 170 H, Calcium 9.7, Magnesium 1.4 L, Total Bilirubin 0.8, AST 25, ALT 18, Alkaline Phosphatase 67, Troponin I < 0.01, C-Reactive Protein 59.5 H, Total Protein 7.9, Albumin 4.7, Globulin 3.2, Albumin/Globulin Ratio 1.5, Procalcitonin 0.095 06/25/21 22:15: NT-Pro-B Natriuret Pep 260 H 06/25/21 23:15: SARS-CoV-2 (PCR) Not detected, Influenza A Untype (PCR) Not detected, Influenza Type B (PCR) Not detected 06/26/21 01:48: Troponin I < 0.01 06/26/21 03:29: Urine Color Yellow, Urine Appearance Clear, Urine pH 5.5, Ur Specific Wolcott 1.015, Urine Protein Negative, Urine Glucose (UA) Negative, Urine Ketones Negative, Urine Blood Negative, Urine Nitrate Negative, Urine Bilirubin Negative, Urine Urobilinogen 0.2, Ur Leukocyte Esterase Negative, Urine Bacteria Trace 06/26/21 04:36: Troponin I < 0.01 06/26/21 04:36: WBC 4.1 L, RBC 3.46 L, Hgb 11.4 L, Hct 34.8 L, MCV 100.4 H, MCH 33.0 H, MCHC 32.9, RDW 13.7, Plt Count 249, MPV 7.9, Neut % (Auto) 58.8, Lymph % (Auto) 24.9, Lawrence % (Auto) 10.1 H, Eos % (Auto) 5.4, Baso % (Auto) 0.9, Neut # (Auto) 2.4, Lymph # (Auto) 1.0, Mon
== END 2021-06-26 12:45 | disposition home or self-care (01) ==
LOC: ER 22:39 → 2ND 06-26 00:16 → ICU 06-26 04:41
PROVIDERS: Admitting Provider Emergency Medicine; Emergency Provider Emergency Medicine; PCP Internal Medicine Adolescent Medicine; Visit Provider Internal Medicine Adolescent Medicine
DX: R07.9 Chest pain, unspecified (principal); I11.0 Hypertensive heart disease with heart failure; I50.32 Chronic diastolic (congestive) heart failure; E66.01 Morbid (severe) obesity due to excess calories; Z68.35 Body mass index [BMI] 35.0-35.9, adult; J44.9 Chronic obstructive pulmonary disease, unspecified; Z79.899 Other long term (current) drug therapy; Z79.01 Long term (current) use of anticoagulants; E11.9 Type 2 diabetes mellitus without complications; Z79.84 Long term (current) use of oral hypoglycemic drugs; I25.110 Atherosclerotic heart disease of native coronary artery with unstable angina pectoris; Z20.822 Contact with and (suspected) exposure to COVID-19; C34.32 Malignant neoplasm of lower lobe, left bronchus or lung
CPT/HCPCS: 71046; 80048; 80053; 80061; 81001; 82962; 83735; 83880; 84145; 84484; 85025; 85651; 86140; 93005; 93306; 96365; 99284; C9803; G0378; U0003; U0005

== ENCOUNTER 2021-07-15 08:52 | Outpatient (RCR) | payer BC, SELFPAY ==
--- NOTE | 2021-07-15 09:47 | HMH.PTOPEV ---
PT Outpatient Evaluation Rehab PT Outpatient Evaluation Start: 07/15/21 09:11 Freq: Status: Active Protocol: Document 07/15/21 09:14 LYLE (Rec: 07/15/21 09:47 LYLE [id number]) Electronically Signed By Ricardo Castellanos, PT 07/15/21 09:14 Outpatient Therapy Subjective History Subjective History Pt reports h/o chronic neck pain and cervico-genic OSBORNE's for ~4-5 months. Pt reports insidious onset pain/OSBORNE's, left > right sided neck pain. Pt reports referred pain into left shoulder area, and OSBORNE referral pain into bilateral suboccipital areas. Pt reports cervical MRI scheduled for . Chief Complaint Pain,Spasms,Stiff Symptom Type Ache,Sharp,Dull Symptoms Relieved By Rest/Positioning,Heat,OTC Meds Symptoms Aggravated By Physical Activity,Lifting Prior Functional Limitations Reaching,Lifting,Housework, Driving,Sleeping Current Functional Limitations Reaching,Lifting,Housework, Driving,Sleeping Symptom Description Constant and Continuous Level of pain today (0-10) 10 Pain scale - at its best (0-10) 10 Pain scale - at its worst (0-10) 10 Cervical Eval Palpation Cervical Muscles R Cervical Paraspinal,L Cervical Paraspinal,R Suboccipital,L Suboccipital,R CT Junction,L CT Junction,R Upper Trapezius,L Upper Trapezius Cervical/Thoracic Palpation Findings Tenderness,Trigger Point, Muscle Guarding Posture Head/C-Spine Posture Sitting Position Flexed Head/C-Spine Posture Standing Position Flexed Flexibility Deficits Upper Trapezius Muscle Length (R) Moderate Tightness,(L) Moderate Tightness Levaetor Scapulae Muscle Length (R) Mild Tightness,(L) Mild Tightness Scalene Group Muscle Length (R) Mild Tightness,(L) Moderate Tightness Pectoralis Major Muscle Length (R) Mild Tightness,(L) Mild Tightness Pectoralis Minor Muscle Length (R) Mild Tightness,(L) Mild Tightness Passive Joint Mobility Cervical PIVM Dec: R OA L OA R AA L AA R C2/3
== END 2021-07-15 08:55 | disposition home or self-care (01) ==
LOC: PT 08:52
PROVIDERS: PCP Internal Medicine Adolescent Medicine; Visit Provider Internal Medicine Adolescent Medicine
DX: M54.2 Cervicalgia (principal)
CPT/HCPCS: 97010; 97014; 97035; 97163; G0283

== ENCOUNTER 2021-07-16 12:32 | Outpatient (CLI) | payer BC, SELFPAY ==
[2021-07-16 12:43] VITALS: BMI 87.7
[2021-07-16 12:59] LABS: Basophils # 0.1 K/mm3 (0-0.2); Basophils % 1.3 % (0.1-2.0); Eosinophils # 0.2 K/mm3 (0.0-0.4); Eosinophils % 3.8 % (0.1-12.0); Hematocrit 39.1 % (42.0-52.0); Hemoglobin 12.5 g/dL (14.1-18.0); Lymphocytes # 1.3 K/mm3 (0.7-4.5); Lymphocytes % 26.1 % (10-50); Mean Corpuscular HGB Conc 32.1 g/dL (31.8-35.4); Mean Corpuscular Hemoglobin 32.1 pg (27.0-31.2); Mean Corpuscular Volume 100.1 fl (80-94); Mean Platelet Volume 7.6 fl (7.4-10.4); Monocytes # 0.5 K/mm3 (0.1-1.0); Neutrophils % 58.7 % (37.0-80.0); Platelet Count 288 K/mm3 (142-424); Red Cell Distribution Width 13.5 % (11.5-17.5); White Blood Count 5.1 K/mm3 (4.8-10.8)
--- NOTE | 2021-07-16 13:03 | CT_ITS ---
FINAL REPORT CLINICAL HISTORY: LUNG CA. PT IN REMISSION COMPARISON: March 22, 2021 FINDINGS: Axial CT images of the chest were obtained with contrast. Coronal reformatted images were also obtained. This study was performed with techniques to keep radiation doses as low as reasonably achievable, (ALARA). Individualized dose reduction techniques using automated exposure control or adjustment of mA and/or KV according to the patient's size were employed. There is no evidence of mediastinal or hilar mass or adenopathy. No axillary mass or adenopathy is identified. On lung window images, there is moderate emphysema. There is mild scarring. There is a stable 3 mm nodule in the right upper lobe on image 31. There are stable areas of scarring/fibrosis in the left thorax which are consistent with post treatment change. There are calcified granulomas at the right lung base. There are no new masses or nodules identified. Limited images of the upper abdomen reveal postoperative changes from cholecystectomy. IMPRESSION: Stable post treatment changes. Stable right upper lobe nodule. No new abnormality identified. Reviewed, Interpreted and Dictated by Davis Mitchell III, MD Transcribed by Susan Virgen Authenticated by Davis Mitchell III, MD on 07/16/2021 02:48:02 PM [facility]
[2021-07-16 13:11] LABS: Alanine Aminotransferase 22 U/L (12-78); Albumin Level 4.8 g/dl (3.5-5.0); Albumin/Globulin Ratio 1.7 (1.1-1.8); Alkaline Phosphatase 64 U/L (38-126); Anion Gap 14.9 mEq/L (5-15); Aspartate Amino Transferase 30 U/L (17-59); Bilirubin,Total 0.7 mg/dl (0.2-1.3); Blood Urea Nitrogen 46 mg/dl (9-20); Calcium 10.2 mg/dl (8.4-10.2); Carbon Dioxide 30 mmol/L (22.0-30.0); Chloride 98 mmol/L (98-107); Creatinine Clearance Estimated 41 mL/min (50-200); Estimated Glomerular Filt Rate 42 ml/min (>60); GFR (African American) 50 ML/MIN (>60); Globulin 2.8 g/dL (1.3-3.2); Glucose 93 mg/dl (74-100); Potassium 4.9 mmoL/L (3.5-5.1); Sodium 138 mmol/L (136-145); Total Protein,Serum 7.6 g/dl (6.3-8.2)
== END 2021-07-16 12:48 | disposition home or self-care (01) ==
LOC: RAD 12:33
PROVIDERS: PCP Internal Medicine Adolescent Medicine; Visit Provider Internal Medicine Medical Oncology
DX: C34.90 Malignant neoplasm of unspecified part of unspecified bronchus or lung (principal)
CPT/HCPCS: 71260; 80053; 85025; Q9967

== ENCOUNTER → 2021-07-18 12:48 | Outpatient (CLI) | payer BC, SELFPAY ==
--- NOTE | 2021-07-18 12:51 | MR_ITS ---
FINAL REPORT CLINICAL HISTORY: NECK PAIN. HEADACHE. LT SHOULDER PAIN XYRS. FINDINGS: Multiplanar MR imaging of the cervical spine was performed without contrast. On the sagittal T2-weighted images, disc degeneration is seen at multiple levels. There is no evidence of fracture. There are endplate changes at C5-6. There is a probable hemangioma in the T1 vertebral body. There is mild kyphosis on C5-6. The vertebral alignment is normal. The cervical spinal cord has an unremarkable appearance without evidence of mass, edema or syrinx. No significant canal stenosis is identified. The cervicomedullary junction is normal. C2-3: There is no significant canal stenosis or neural foraminal narrowing. C3-4: Small central disc protrusion is present. There is no significant canal stenosis or neural foraminal narrowing. C4-5: An annular bulge is present. There is a small left paracentral disc protrusion. There is no significant canal stenosis or neural foraminal narrowing. C5-6: Disc osteophyte complex is present. There is a small central disc protrusion with moderate right and severe left neural foraminal narrowing. C6-7: Disc osteophyte complex is present. There is a small central disc protrusion with severe bilateral neural foraminal narrowing. C7-T1: An annular bulge is present with mild left neural foraminal narrowing. IMPRESSION: Multilevel disc protrusions as detailed above. Reviewed, Interpreted and Dictated by Davis Mitchell III, MD Transcribed by Cady Becerra Authenticated by Davis Mitchell III, MD on 07/18/2021 02:33:22 PM [facility]
== END ==
PROVIDERS: PCP Internal Medicine Adolescent Medicine; Visit Provider Internal Medicine Adolescent Medicine
DX: M54.2 Cervicalgia (principal)
CPT/HCPCS: 72141; 76376

== ENCOUNTER → 2021-07-26 11:52 | Outpatient (CLI) | payer BC, SELFPAY ==
--- NOTE | 2021-07-26 11:53 | CA_ITS ---
APPROVED REPORT Exam: Pharmacologic Technologist: Stephanie Coombs, Ht: 5 ft 5 in Wt: 247 lbs BSA: 2.16 m2 HR: 89 bpm BP: 118/74 mmHg Medical History Medications: Lisinopril,,,,, Gabapentin,,,,, Robaxin,,,,, ClonAZEPAM,,,,, Lipitor,,,,, CloPIdogrel,,,,, Januvia,,,,, Famotidine,,,,, OxYCODONE,,,,, Aldactone,,,,, Cyclobenzaprine,,,,, Vitamin D2,,,,, Stress Test Details Test: LEXISCAN HR Resting HR: 89 bpm Max Heart Rate (APMHR): 162.781697 bpm Max HR Achieved: 107 bpm Target HR (85% APMHR): 137.955616 bpm % of APMHR: 66.05 Recovery HR: 92 bpm BP Resting BP: 118/74 mmHg Max BP: 139/73 mmHg Recovery BP: 111.0/81.0 mmHg ECG Resting ECG: NSR, NSSTTW Abnormalities Clinical Reason for Termination: Completed Protocol Exercise duration: 04:02 min Highest Stage Achieved: Exercise capacity: 1.0 METs Stress ECG Conclusion Pt changed from exercise stress to Lexiscan. Symptoms: None Arrhythmias/Ectopy: None ST-T Changes: <1.5mm ST Segment changes Conclusion: Non-Diagnostic Test Summary REST . . . . . . . Resting REST 01:46 . . 89 . 118/ 74 . . Stage 1 01:00 . . 104 . . . . Stage 2 01:00 . . 103 . 139/ 73 . . Stage 3 01:00 . . 101 . 123/ 74 . . Stage 4 01:00 . . 100 . 123/ 73 . . Stage 4 01:02 . . 101 . 123/ 73 . Stop exercise at 04:02 RECOVERY 01:00 . . 91 . . . . RECOVERY 02:00 . . 93 . 111/ 81 . . RECOVERY 02:04 . . 96 . 111/ 81 . . Electronically signed by : James Raza MD 07/26/2021 15:03:21
--- NOTE | 2021-07-26 11:53 | NM_ITS ---
APPROVED REPORT Exam: Nuclear Stress Test Indication: h/o mi, htn, d.m., hyperlipidemia, fm hx, c.p., sob, fatigue Patient Location: Outpatient Stress Tech: [facility] Tech:Lolita Yang, ARRArelis RT (R)(N)(M) Ht: 5 ft 5 in Wt: 235 lbs HR: 89 bpm BP: 118/74 mmHg BSA: 2.12 m2 BMI: 39.1 Procedure: Patient received a 0.4 mg of intravenous Lexiscan, resting heart rate 89 bpm, resting blood pressure 118/74 mmHg, with Lexiscan maximum heart rate achived was 104 bpm which is Less than 85 % of the maximum predicted heart rate and blood pressure was 139/73 mmHg. With Lexiscan, patient denied any complaint of chest pain. Electrocardiogram Resting electrocardiogram shows sinus rhythm, with Lexiscan there is less than 1.[address] segment depression noted from the baseline EKG. The EKG portion of the Lexiscan is nondiagnostic. Cardiac Stress and Resting SPECT Images: Cardiac Stress and Resting SPECT images were obtained using technetium 99m Myoview 30.7 mCi stress and 10.65 mCi at rest. Gated SPECT for analysis of segmental wall motion and calculation of the ejection fraction also done. Cardiac stress and resting SPECT images show uniform myocardial activity without segmental perfusion abnormality, computer derived ejection fraction is over 65% with no regional wall motion abnormality, right ventricle is normal size and contractility. Conclusion: 1. The EKG portion of the Lexiscan is nondiagnostic. 2. No scintigraphic evidence of reversible ischemia seen, computer derived ejection fraction is over 65% with no regional wall motion abnormality, right ventricle is normal size and contractility. 3. Normal Lexiscan Myoview study. Electronically signed by : James Raza MD 07/28/2021 14:19:24
== END ==
PROVIDERS: PCP Internal Medicine Adolescent Medicine; Visit Provider Nurse Practitioner Family
DX: R06.02 Shortness of breath (principal); I11.0 Hypertensive heart disease with heart failure; I50.30 Unspecified diastolic (congestive) heart failure; I20.9 Angina pectoris, unspecified; C34.90 Malignant neoplasm of unspecified part of unspecified bronchus or lung; E78.2 Mixed hyperlipidemia; R60.0 Localized edema
CPT/HCPCS: 78452; 93017; A9502; J2785

== ENCOUNTER → 2021-08-02 10:24 | Outpatient (CLI) | payer BC, SELFPAY ==
--- NOTE | 2021-08-02 10:24 | CT_ITS ---
FINAL REPORT TECHNIQUE: Thin section axial CT images were performed from the lung apices to the upper abdomen after the administration of IV contrast. MIP reconstructions performed. This study was performed with techniques to keep radiation doses as low as reasonably achievable (ALARA). Individualized dose reduction techniques using automated exposure control or adjustment of mA and/or kV according to the patient''s size were employed. CLINICAL HISTORY: chest pain COMPARISON: 07/16/2021 FINDINGS: There is no evidence for pulmonary embolism. The thoracic aorta is patent without evidence of dissection. There is no axillary adenopathy. There is a calcified left hilar lymph node. There are a few small scattered mediastinal lymph nodes. There is no pulmonary artery filling defects. The heart size is normal. There is no pleural or pericardial effusion. Lung window images demonstrate a large bulla within the medial left upper lobe measuring up to 7 cm. There are multiple other bulla at the apices. There is abnormal airspace opacity in the left perihilar region which is probably postinflammatory. Limited images of the upper abdomen are unremarkable. IMPRESSION: No evidence of pulmonary embolism or aortic dissection. Advanced changes of emphysema at the apices. Postinflammatory airspace infiltrates in the left perihilar region which is probably due to resolving pneumonia. Reviewed, Interpreted and Dictated by Giles Mcfadden MD Transcribed by Susan Virgen Authenticated by Giles Mcfadden MD on 08/02/2021 11:57:42 AM [facility]
== END ==
PROVIDERS: PCP Internal Medicine Adolescent Medicine; Visit Provider Physician Assistant
DX: R06.00 Dyspnea, unspecified (principal); R07.89 Other chest pain
CPT/HCPCS: 71275; Q9967

== ENCOUNTER 2021-08-25 17:48 | Emergency (ER) | payer BC, SELFPAY ==
[2021-08-25 19:41] VITALS: BP 101/68; PULSE 75; RESP 18; TEMP 36.8; O2SAT 98; BMI 38.2
--- NOTE | 2021-08-25 20:26 | HMH.EDGENADL ---
ED Disposition Clinical Impression: Cervical radicular pain Disposition: Home, Self-Care Condition on Discharge: Good Instructions: DI for Cervical Radiculopathy Additional Instructions: call pain center and pcp for follow up Referrals: Konstantin Dawn MD [Primary Care Provider] - - Critical Care Critical Care Time: No Attestation: On 08/25/21, the high probability of a clinically significant, sudden or life threatening deterioration of the following system(s) required my full and direct attention, intervention and personal management. The time I documented below is in addition to time spent performing reported procedures but includes the following listed in this critical care notation. Medical Decision Making - Medical Records Medical records reviewed: Yes: I reviewed the patient's medical records. - [place] Inquiry Pt receiving controlled substance: No Vital Signs: 08/25/21 19:41 Temperature 98.3 F Temperature Source Oral Pulse Rate [Apical] 75 Respiratory Rate 18 Blood Pressure [Right Arm] 101/68 L Blood Pressure Mean [Right Arm] 79 Blood Pressure Source [Right Arm] Automatic Cuff Blood Pressure Position [Right Arm] Sitting 02 Sat by Pulse Oximetry 98 Oxygen Delivery Method Room Air - Lab Data Lab results reviewed: Yes: I reviewed the patient's lab results. Orders (Tests/Meds): ED MEDICATIONS Discontinued Medications Generic Name Dose Route Start Last Admin Trade Name Freq PRN Reason Stop Dose Admin Methylprednisolone Sodium Succinate 125 mg 08/25/21 19:53 08/25/21 20:24 Methylprednisolone Sod Succ 125mg Vial IV 08/25/21 19:54 125 mg ONCE ONE Administration Orphenadrine Citrate 60 mg 08/25/21 20:19 08/25/21 20:24 Orphenadrine Citrate 60mg/2ml Vial IM 08/25/21 20:20 60 mg ONCE ONE Administration Medical Decision Narrative: acute excerbation of cervical radicular pain with stable exam General Adult HPI - General Chief complaint: PAIN Stated complaint: neck pain Time Seen by Provider: 08/25/21 20:00 Mode of Arrival: Ambulatory Source of Information: Patient, Medical Record Limitations: No Limitations Description of Symptoms (Recalled from ER Triage Doc. by RN): Patient states he has chronic neck pain. States that today he began having more severe than normal pain in his left neck that radiates down into his shoulder with associated headache. Patient states he took his pain pill (10mg oxycodone) at 1745 but it has not helped the pain. - History of Present Illness HPI narrative: has known chronic neck pain with rad to lt upper ext and took regular pain meds - but still has pain - no fever or rash or trauma Onset (ago): hour(s) Location: neck Severity: moderate Associated symptoms: denies other symptoms Treatments prior to arrival: none - Related Data Home Medications Medication Instructions Recorded Confirmed clonazepam 0.5 mg tablet 0.5 mg PO BID tab 10/06/19 07/31/21 gabapentin 800 mg tablet 800 mg PO TID 10/06/19 07/31/21 Ergocalciferol (Vitamin D2) 1 tab PO WEEKLY 11/17/19 07/31/21 [Drisdol] glipizide 10 mg tablet, extended 20 mg PO DAILY tab 01/26/20 07/31/21 release 24 hr oxycodone 10 mg tablet 10 mg PO TIDP PRN tab 09/12/20 07/31/21 methocarbamoL [Methocarbamol 500mg 500 mg PO BID 01/03/21 07/31/21 Tablet] metoprolol tartrate 25 mg tablet 25 mg PO BID tab 01/08/21 07/31/21 sitagliptin 50 mg-metformin 1,000 1 tab PO BID tab 04/11/21 07/31/21 mg tablet Clopidogrel Bisulfate [Plavix] 75 mg PO DAILY 06/26/21 07/31/21 Cyclobenzaprine HCl 10 mg PO TID 06/26/21 07/31/21 [Cyclobenzaprine 10mg Tab*] Famotidine [Acid Promotions Officer] 20 mg PO DAILY 06/26/21 07/31/21 Sitagliptin Phosphate [Januvia 100 mg PO DAILY 06/26/21 07/31/21 100mg tablet] Torsemide 50 mg PO DAILY 06/26/21 07/31/21 lisinopriL [Lisinopril] 5 mg PO DAILY 06/26/21 07/31/21 Previous Rx's Medication Instructions Recorded lansoprazole 30 mg capsule,delay
[2021-08-25 20:46] VITALS: BP 105/65; PULSE 78; RESP 18; TEMP 36.8; O2SAT 99
== END 2021-08-25 21:08 | disposition home or self-care (01) ==
PROVIDERS: Emergency Provider Emergency Medicine; PCP Internal Medicine Adolescent Medicine
DX: R42 Dizziness and giddiness (principal); C80.1 Malignant (primary) neoplasm, unspecified; M54.12 Radiculopathy, cervical region; M54.2 Cervicalgia; M54.9 Dorsalgia, unspecified; M25.512 Pain in left shoulder; I95.9 Hypotension, unspecified; N28.9 Disorder of kidney and ureter, unspecified; I25.10 Atherosclerotic heart disease of native coronary artery without angina pectoris; I25.2 Old myocardial infarction; I73.9 Peripheral vascular disease, unspecified; I49.9 Cardiac arrhythmia, unspecified; K21.9 Gastro-esophageal reflux disease without esophagitis; E78.5 Hyperlipidemia, unspecified; E11.40 Type 2 diabetes mellitus with diabetic neuropathy, unspecified; M81.0 Age-related osteoporosis without current pathological fracture; M19.90 Unspecified osteoarthritis, unspecified site; G89.29 Other chronic pain; D64.9 Anemia, unspecified; G47.33 Obstructive sleep apnea (adult) (pediatric); G43.909 Migraine, unspecified, not intractable, without status migrainosus; J44.9 Chronic obstructive pulmonary disease, unspecified; F41.9 Anxiety disorder, unspecified; Z87.891 Personal history of nicotine dependence; G25.81 Restless legs syndrome; Z86.73 Personal history of transient ischemic attack (TIA), and cerebral infarction without residual deficits; Z79.02 Long term (current) use of antithrombotics/antiplatelets; Z79.899 Other long term (current) drug therapy; Z88.5 Allergy status to narcotic agent; Z88.8 Allergy status to other drugs, medicaments and biological substances; Z92.21 Personal history of antineoplastic chemotherapy
CPT/HCPCS: 96372; 96374; 96375; 99284

== ENCOUNTER → 2021-11-20 12:56 | Outpatient (CLI) | payer BC, SELFPAY ==
[2021-11-20 13:07] VITALS: BMI 33.9
[2021-11-20 13:26] LABS: Basophils # 0.1 K/mm3 (0-0.2); Basophils % 0.9 % (0.1-2.0); Eosinophils # 0.2 K/mm3 (0.0-0.4); Hematocrit 35.3 % (42.0-52.0); Hemoglobin 11.6 g/dL (14.1-18.0); Lymphocytes # 0.8 K/mm3 (0.7-4.5); Lymphocytes % 12.8 % (10-50); Mean Corpuscular HGB Conc 32.8 g/dL (31.8-35.4); Mean Corpuscular Volume 100.8 fl (80-94); Mean Platelet Volume 7.4 fl (7.4-10.4); Monocytes # 0.4 K/mm3 (0.1-1.0); Monocytes % 6.6 % (1.7-9.3); Neutrophils # 4.7 K/mm3 (1.8-7.8); Neutrophils % 76.7 % (37.0-80.0); Platelet Count 327 K/mm3 (142-424); Red Cell Distribution Width 13.3 % (11.5-17.5); White Blood Count 6.2 K/mm3 (4.8-10.8)
[2021-11-20 13:32] LABS: Alanine Aminotransferase 20 U/L (12-78); Albumin Level 4.4 g/dl (3.5-5.0); Albumin/Globulin Ratio 1.5 (1.1-1.8); Alkaline Phosphatase 69 U/L (38-126); Anion Gap 13.8 mEq/L (5-15); Aspartate Amino Transferase 26 U/L (17-59); Bilirubin,Total 0.6 mg/dl (0.2-1.3); Blood Urea Nitrogen 50 mg/dl (9-20); Calcium 9.8 mg/dl (8.4-10.2); Carbon Dioxide 27 mmol/L (22.0-30.0); Chloride 96 mmol/L (98-107); Creatinine Clearance Estimated 35 mL/min (50-200); Estimated Glomerular Filt Rate 21 ml/min (>60); GFR (African American) 25 ML/MIN (>60); Globulin 2.9 g/dL (1.3-3.2); Glucose 103 mg/dl (74-100); Potassium 4.8 mmoL/L (3.5-5.1); Sodium 132 mmol/L (136-145); Total Protein,Serum 7.3 g/dl (6.3-8.2)
--- NOTE | 2021-11-20 13:44 | CT_ITS ---
FINAL REPORT TECHNIQUE: Axial images were obtained from the lung apex to the mid abdomen by computed tomography. Coronal reformatted images were obtained. This study was performed with techniques to keep radiation doses as low as reasonably achievable, (ALARA). Individualized dose reduction techniques using automated exposure control or adjustment of mA and/or kV according to the patient''s size were employed. CLINICAL HISTORY: LUNG CA COMPARISON: March 22, 2021; August 02, 2021 FINDINGS: There is no axillary adenopathy. There is no hilar or mediastinal adenopathy. Heart size is normal. There is no pericardial or pleural effusion. Limited images of the upper abdomen demonstrate cholecystectomy. There are moderate changes of emphysema. There is a stable 4 mm nodule in the right upper lobe. There are stable left perihilar opacities consistent with post treatment fibrosis/scarring. A calcified granuloma is seen in the right lower lobe. IMPRESSION: Stable left perihilar opacities consistent with post treatment fibrosis/scarring. Reviewed, Interpreted and Dictated by Davis Mitchell III, MD Transcribed by Andrew Anderson Authenticated and [facility]
== END ==
PROVIDERS: PCP Internal Medicine Adolescent Medicine; Visit Provider Internal Medicine Medical Oncology
DX: C34.92 Malignant neoplasm of unspecified part of left bronchus or lung (principal)
CPT/HCPCS: 36415; 71250; 80053; 85025

== ENCOUNTER 2021-11-21 14:33 | Outpatient (CLI) | payer BC, SELFPAY ==
[2021-11-21 14:40] VITALS: BP 106/52; PULSE 71; RESP 18; O2SAT 100
[2021-11-21 15:39] VITALS: BMI 35.5
[2021-11-21 15:41] VITALS: BP 110/58; PULSE 70; RESP 18; O2SAT 99
[2021-11-21 15:53] LABS: Chloride 95 mmol/L (98-107)
[2021-11-21 15:54] LABS: Potassium 4.6 mmoL/L (3.5-5.1); Sodium 131 mmol/L (136-145)
[2021-11-21 15:57] LABS: Anion Gap 13.6 mEq/L (5-15); Blood Urea Nitrogen 57 mg/dl (9-20); Carbon Dioxide 27 mmol/L (22.0-30.0); Creatinine Clearance Estimated 34 mL/min (50-200); Estimated Glomerular Filt Rate 19 ml/min (>60); GFR (African American) 23 ML/MIN (>60); Glucose 229 mg/dl (74-100)
== END 2021-11-21 15:41 | disposition home or self-care (01) ==
LOC: INF 14:34
PROVIDERS: PCP Internal Medicine Adolescent Medicine; Visit Provider Internal Medicine Medical Oncology
DX: C34.92 Malignant neoplasm of unspecified part of left bronchus or lung (principal); E86.0 Dehydration
CPT/HCPCS: 80048; 96360

== ENCOUNTER 2021-11-22 13:12 | Observation (INO) | payer BC, SELFPAY ==
[2021-11-22 13:37] VITALS: BMI 39.7
[2021-11-22 13:39] VITALS: BP 120/67; PULSE 65; RESP 14; TEMP 36.4; O2SAT 98
[2021-11-22 14:05] LABS: Basophils # 0.1 K/mm3 (0-0.2); Basophils % 1.2 % (0.1-2.0); Eosinophils # 0.2 K/mm3 (0.0-0.4); Eosinophils % 3.4 % (0.1-12.0); Hematocrit 33.2 % (42.0-52.0); Hemoglobin 11.2 g/dL (14.1-18.0); Lymphocytes # 1.1 K/mm3 (0.7-4.5); Lymphocytes % 21.1 % (10-50); Mean Corpuscular HGB Conc 33.9 g/dL (31.8-35.4); Mean Corpuscular Hemoglobin 34.6 pg (27.0-31.2); Mean Corpuscular Volume 102.3 fl (80-94); Mean Platelet Volume 7.5 fl (7.4-10.4); Monocytes # 0.5 K/mm3 (0.1-1.0); Monocytes % 8.9 % (1.7-9.3); Neutrophils # 3.3 K/mm3 (1.8-7.8); Neutrophils % 65.5 % (37.0-80.0); Platelet Count 313 K/mm3 (142-424); Red Blood Count 3.25 M/mm3 (4.60-6.20); Red Cell Distribution Width 13.2 % (11.5-17.5)
--- NOTE | 2021-11-22 14:09 | P.CONPHA_ITS ---
[facility] Pharmacy VTE Monitoring - Patient Demographics Admission date: 11/22/21 Report Date: 11/22/21 Time: 14:09 Allergies/Adverse Reactions: Patient Allergies naproxen [NAPROXEN] Allergy (Mild, Verified 07/31/21 11:54) NA-NAUSEA/VOMITING tramadol [TRAMADOL] Allergy (Mild, Verified 07/31/21 11:54) NA-NAUSEA Height: 1.68 m Weight: 111.782 kg - VTE Risk Labs: VTE Related Lab Results Hgb 11.2 g/dL (14.1-18.0) L 11/22/21 13:56 Hct 33.2 % (42.0-52.0) L 11/22/21 13:56 Plt Count 313 K/mm3 (142-424) 11/22/21 13:56 Clinical Trial Participant: No - Prophylaxis VTE Prophylaxis Ordered?: Yes Types of VTE Prophylaxis: TEDS Knee High
[2021-11-22 14:14] LABS: Alanine Aminotransferase 14 U/L (12-78); Albumin Level 4.1 g/dl (3.5-5.0); Albumin/Globulin Ratio 1.5 (1.1-1.8); Alkaline Phosphatase 58 U/L (38-126); Anion Gap 12.7 mEq/L (5-15); Aspartate Amino Transferase 21 U/L (17-59); Bilirubin,Total 0.2 mg/dl (0.2-1.3); Blood Urea Nitrogen 44 mg/dl (9-20); Calcium 9.3 mg/dl (8.4-10.2); Carbon Dioxide 27 mmol/L (22.0-30.0); Chloride 100 mmol/L (98-107); Creatinine Clearance Estimated 47 mL/min (50-200); Estimated Glomerular Filt Rate 24 ml/min (>60); GFR (African American) 30 ML/MIN (>60); Globulin 2.8 g/dL (1.3-3.2); Glucose 86 mg/dl (74-100); Magnesium 2.1 mg/dl (1.6-2.3); Potassium 4.7 mmoL/L (3.5-5.1); Sodium 135 mmol/L (136-145); Total Protein,Serum 6.9 g/dl (6.3-8.2)
[2021-11-22 14:21] LABS: Coronavirus 19, PCR Not Detected (NotDetected); Influenza A, PCR Not Detected (NotDetected); Influenza B, PCR Not Detected (NotDetected)
[2021-11-22 15:50] VITALS: BP 98/51; PULSE 64; RESP 14; TEMP 37.1; O2SAT 100
[2021-11-22 17:26] LABS: POC Glucose,Bedside 183 (70-110)
--- NOTE | 2021-11-22 18:40 | HMH.HP ---
*Admission Date: 11/22/21 *Chief complaint: weakness, TISHA *History of present illness: Mr. Persaud is a pleasant 60-year-old -[place] male with history of hypertension, diabetes, CKD, CAD, CHF, and stage 3 lung cancer who presented to our office today for follow up because blood sugars are elevated. Fasting glucoses are running high 300's to low 400's. He has not been taking Janumet because he thinks that is causing dizziness. He is not dizzy now, and has not taken the janumet in two weeks. States I feel pretty good right now. He also c/o being told his kidney function is bad and would like to discuss. Had lab work ordered by oncology yesterday. Creatinine 3.3. He had a CT scan that revealed something going on with kidneys and this lab work was a follow up to that. He was hemodynamically stable in the office. Given significant increase in creatinine, hyperglycemia, and weakness he was admitted for IV fluids and serial labs to monitor for improvement. After evaluation once he arrived to the floor, he is feeling better after some IV fluids. No nausea, emesis. TOlerated diner without difficulty. [facility] History I have reviewed the patient's past medical history: Yes Medical History: Reports:: Arrhythmia, Cancer (lung), Chronic Obstructive Pulmonary Disease (COPD), Coronary Artery Disease, Cerebrovascular Accident, Diabetes Mellitus Type 2, Gastrointestinal Bleed, Hyperlipidemia, Hypertension, Lung Disease, Migraine, Myocardial Infarction, Osteoporosis, Peripheral Artery Disease, Renal Insufficiency, Transient Ischemic Attacks (TIA), Ulcer Denies:: Diabetes Mellitus Type 1, Internal Pacemaker, MRSA, Seizures *Have you ever received a pneumonia vaccine?: No *Have you received a flu vaccine this season?: No Other Medical History: Reports: Anemia, Arthritis, Cataracts, Chemotherapy, Osteoporosis, Radiation Therapy, Other (YAMILE, former smoker 8 months ago). Denies: Blood Transfusion Reaction Laterality Cases: Left: Arthroscopy Shoulder, Right: Arthroscopy Knee Other Surgeries: Yes: No Previous Surgery, Cardiac Catheterization, Cardiac Surgery, Cholecystectomy, Colonoscopy, EGD, Other. No: Pacemaker Amputation: No Fractures: No - *Social History Smoking Status: Former smoker Tobacco Type: cigarettes # Packs/Day (cigarettes): 1 #Yrs smoked (if former smoker): 40 Alcohol Intake: never Alcohol Intake Frequency:: holidays/special occasions only Substance Use Type: marijuana *Occupational Status:: other Housing: apartment Household Members: children *Travel in the last 8 weeks: None Family Hx:: No significant family history Review of Systems - Review of Systems Review of systems:: pertinent systems reviewed and negative unless documented below (14 point review of systems performed, pertinent positives and negatives as per HPI) Meds Home Medications Medication Instructions Recorded Confirmed Type clonazepam 0.5 mg tablet 0.5 mg PO BID tab 10/06/19 11/22/21 History gabapentin 800 mg tablet 800 mg PO TID 10/06/19 11/22/21 History Ergocalciferol (Vitamin D2) 50,000 mcg PO WEEKLY 11/17/19 11/22/21 History [Drisdol] glipizide 10 mg tablet, extended 10 mg PO BID tab 01/26/20 11/22/21 History release 24 hr oxycodone 10 mg tablet 10 mg PO TIDP PRN tab 09/12/20 11/22/21 History metoprolol tartrate 25 mg tablet 25 mg PO BID tab 01/08/21 11/22/21 History Sitagliptin Phosphate [Januvia 100 mg PO DAILY 06/26/21 11/22/21 History 100mg tablet] torsemide 100 mg tablet 50 mg PO DAILY #30 tab 11/05/21 11/22/21 Rx Atorvastatin Calcium [Lipitor 20mg 20 mg PO DAILY 11/22/21 11/22/21 History Tab] Clopidogrel Bisulfate [Plavix] 75 mg PO DAILY 11/22/21 11/22/21 History Empagliflozin [Jardiance] 25 mg PO DAILY 11/22/21 11/22/21 History Famotidine [Acid Garnett Machine Operator] 20 mg PO DAILY 11/22/21 11/22/21 History Insulin Glargine,Hum.rec.anlog 15 units SQ HS 11/22/21 11/22/21 History [Lantus Solostar 100 Units/mL 3mL flexpen] Isosorbide Mononit
[2021-11-22 20:00] VITALS: BP 115/63; PULSE 66; RESP 19; TEMP 36.6; O2SAT 100; O2SAT 96
[2021-11-23 03:02] LABS: POC Glucose,Bedside 69 (70-110)
[2021-11-23 03:02] LABS: POC Glucose,Bedside 82 (70-110)
[2021-11-23 04:00] VITALS: BP 117/68; PULSE 71; RESP 16; TEMP 36.8; O2SAT 97
[2021-11-23 05:23] VITALS: BMI 39.9
[2021-11-23 07:11] LABS: POC Glucose,Bedside 91 (70-110)
[2021-11-23 07:51] VITALS: BP 100/60; PULSE 74; RESP 16; TEMP 36.7; O2SAT 91
[2021-11-23 07:51] LABS: Basophils % 0.8 % (0.1-2.0); Eosinophils # 0.1 K/mm3 (0.0-0.4); Eosinophils % 2.8 % (0.1-12.0); Hematocrit 35.4 % (42.0-52.0); Hemoglobin 11.5 g/dL (14.1-18.0); Lymphocytes # 1.2 K/mm3 (0.7-4.5); Lymphocytes % 22.8 % (10-50); Mean Corpuscular HGB Conc 32.5 g/dL (31.8-35.4); Mean Corpuscular Hemoglobin 33.5 pg (27.0-31.2); Mean Corpuscular Volume 102.9 fl (80-94); Mean Platelet Volume 7.7 fl (7.4-10.4); Monocytes # 0.5 K/mm3 (0.1-1.0); Monocytes % 10.4 % (1.7-9.3); Neutrophils # 3.2 K/mm3 (1.8-7.8); Neutrophils % 63.3 % (37.0-80.0); Platelet Count 313 K/mm3 (142-424); Red Blood Count 3.44 M/mm3 (4.60-6.20); Red Cell Distribution Width 13.2 % (11.5-17.5); White Blood Count 5.1 K/mm3 (4.8-10.8)
[2021-11-23 07:54] LABS: Chloride 104 mmol/L (98-107); Potassium 4.6 mmoL/L (3.5-5.1); Sodium 135 mmol/L (136-145)
[2021-11-23 07:56] LABS: Blood Urea Nitrogen 30 mg/dl (9-20); Creatinine Clearance Estimated 67 mL/min (50-200); Estimated Glomerular Filt Rate 37 ml/min (>60); GFR (African American) 44 ML/MIN (>60)
[2021-11-23 07:57] LABS: Alanine Aminotransferase 12 U/L (12-78); Albumin Level 4.1 g/dl (3.5-5.0); Albumin/Globulin Ratio 1.4 (1.1-1.8); Alkaline Phosphatase 54 U/L (38-126); Anion Gap 10.6 mEq/L (5-15); Aspartate Amino Transferase 22 U/L (17-59); Bilirubin,Total 0.5 mg/dl (0.2-1.3); Calcium 9.6 mg/dl (8.4-10.2); Carbon Dioxide 25 mmol/L (22.0-30.0); Globulin 2.9 g/dL (1.3-3.2); Glucose 101 mg/dl (74-100)
--- NOTE | 2021-11-23 08:32 | HMH.DCSUM ---
General - General Admission date:: 11/22/21 Discharge date: 11/23/21 HPI HPI: Mr. Persaud is a pleasant 60-year-old -[place] male with history of hypertension, diabetes, CKD, CAD, CHF, and stage 3 lung cancer who presented to our office today for follow up because blood sugars are elevated. Fasting glucoses are running high 300's to low 400's. He has not been taking Janumet because he thinks that is causing dizziness. He is not dizzy now, and has not taken the janumet in two weeks. States I feel pretty good right now. He also c/o being told his kidney function is bad and would like to discuss. Had lab work ordered by oncology yesterday. Creatinine 3.3. He had a CT scan that revealed something going on with kidneys and this lab work was a follow up to that. He was hemodynamically stable in the office. Given significant increase in creatinine, hyperglycemia, and weakness he was admitted for IV fluids and serial labs to monitor for improvement. After evaluation once he arrived to the floor, he is feeling better after some IV fluids. No nausea, emesis. TOlerated diner without difficulty. Hospital Course Hospital Course: Patient was admitted. Oral antihyperglycemic agents were held, he was given sliding scale insulin. Fluids were given. He felt better and his creatinine on repeat was actually improving already. He was kept overnight and this morning labs were redone and creatinine improved down below 2 closer to his baseline. He feels well and wishes to be discharged home. We discussed his sugar medication. He stopped his Janumet at home because it makes him feel dizzy but has been taking Jardiance and glipizide. Interestingly in the hospital on a diabetic diet his glucose levels are below 200. He reports at home they are above 300 but does admit to drinking sugared beverages quite often. Plan okay to discharge home, I have asked him to stop his glipizide and only take Jardiance daily. He will be followed up in our office on Thursday, and will look over his glucose records at that point to see if he would warrant increasing basal insulin therapy. I am somewhat reluctant to use his basal insulin now as if he follows any kind of a diabetic diet I am concerned about hypoglycemia at home. According to his records he takes Lantus 15 units at night and this will continue along with Jardiance. I have instructed patient to stop his Janumet given his symptomatic complaints and the possible deleterious effects of metformin and his kidney function. Given his history of heart failure he will continue SGLT2 inhibitor. He may be a good candidate for GLP-1 as an outpatient. Objective Vital signs: Temp Pulse Resp BP Pulse Ox 98.0 F 74 16 100/60 L 91 L 11/23/21 07:51 11/23/21 07:51 11/23/21 07:51 11/23/21 07:51 11/23/21 07:51 no acute distress, morbidly obese - *Routine HEENT Exam Head: Present: normocephalic Eye: Present: EOMI, PERRL ENT: Present: mucous membranes moist - *Routine Neck Exam Present: supple - *Routine Respiratory Exam Present: CTA bilaterally - *Routine Cardiovascular Exam Present: RRR - *Routine Abdominal Exam Present: soft, normoactive bowel sounds. Absent: tenderness - *Routine Extremities Exam Absent: cyanosis, clubbing, edema - *Routine Skin Exam Present: warm. Absent: rash - Detailed Eye Exam Eyelids: Bilateral normal inspection Results Labs on day of discharge: Labs from last 24 hours 11/23/21 11/23/21 11/23/21 06:45 06:25 06:25 WBC 5.1 RBC 3.44 L Hgb 11.5 L Hct 35.4 L MCV 102.9 H MCH 33.5 H MCHC 32.5 RDW 13.2 Plt Count 313 MPV 7.7 Neut % (Auto) 63.3 Lymph % (Auto) 22.8 [place] % (Auto) 10.4 H Eos % (Auto) 2.8 Baso % (Auto) 0.8 Neut # (Auto) 3.2 Lymph # (Auto) 1.2 [place] # (Auto) 0.5 Eos # (Auto) 0.1 Baso # (Auto) 0.0 Sodium 135 L Potassium 4.6 Chloride 104 Carbon Diox
--- NOTE | 2021-11-23 13:25 | PC.NURSE ---
pt. D/C education complete, pt. voiced understanding about follow up appointments, saline lock removed, left via private car.
[2021-11-23 16:15] LABS: POC Glucose,Bedside 96 (70-110)
--- NOTE | 2021-11-26 15:11 | CARE MANAGER ---
Contacted patient related to hospital discharge. He states he had follow up appointment with MD today. He didn't have any new medications and denied questions/concerns at this time. RAJNI Kulkarni
== END 2021-11-23 13:30 | disposition home or self-care (01) ==
PROVIDERS: Admitting Provider Internal Medicine Adolescent Medicine; PCP Internal Medicine Adolescent Medicine; Visit Provider Internal Medicine Adolescent Medicine
DX: N17.9 Acute kidney failure, unspecified (principal); E87.1 Hypo-osmolality and hyponatremia; Z79.899 Other long term (current) drug therapy; Z79.01 Long term (current) use of anticoagulants; Z79.4 Long term (current) use of insulin; E11.22 Type 2 diabetes mellitus with diabetic chronic kidney disease; N18.9 Chronic kidney disease, unspecified; I13.0 Hypertensive heart and chronic kidney disease with heart failure and stage 1 through stage 4 chronic kidney disease, or unspecified chronic kidney disease; I50.32 Chronic diastolic (congestive) heart failure; Z20.822 Contact with and (suspected) exposure to COVID-19
CPT/HCPCS: 36415; 80053; 82962; 83735; 85025; C9803; G0378; U0003; U0005

== ENCOUNTER 2022-01-03 19:58 | Emergency (ER) | payer BC, SELFPAY ==
[2022-01-03] VITALS (7 sets, daily range): BP systolic 102–143; BP diastolic 44–108; PULSE 60–94; RESP 16–18; TEMP 36.7–37.2; O2SAT 96–99; BMI 36.6
[2022-01-03 20:49] LABS: Appearance,Urine CLEAR (Clear); Bilirubin,Urine Negative (Negative); Blood, Urine Negative (Negative); Color,Urine YELLOW (Yellow); Glucose,Urine (UA) 3+ (Negative); Ketones,Urine Negative (Negative); Leukocyte Esterase,Urine Negative (Negative); Microscopic, Urine URINE MICROSCOPIC (MICROSCOPIC); Nitrate,Urine Negative (Negative); PH,Urine 5.5 (5.0-8.5); Protein,Urine TRACE (Negative); Urobilinogen,Urine 0.2 EU/dl (0.2)
[2022-01-03 20:53] LABS: Squamous Epithelial Cell,Urine Occasional #/hpf (0-5); WBC,Urine Occasional #/hpf (0-3)
[2022-01-03 21:07] LABS: Basophils # 0.1 K/mm3 (0-0.2); Basophils % 0.8 % (0.1-2.0); Eosinophils # 0.2 K/mm3 (0.0-0.4); Eosinophils % 2.5 % (0.1-12.0); Hematocrit 47.6 % (42.0-52.0); Lymphocytes # 1.4 K/mm3 (0.7-4.5); Lymphocytes % 17.1 % (10-50); Mean Corpuscular HGB Conc 31.6 g/dL (31.8-35.4); Mean Corpuscular Hemoglobin 32.4 pg (27.0-31.2); Mean Corpuscular Volume 102.8 fl (80-94); Mean Platelet Volume 7.6 fl (7.4-10.4); Monocytes # 0.5 K/mm3 (0.1-1.0); Monocytes % 6.7 % (1.7-9.3); Neutrophils # 5.8 K/mm3 (1.8-7.8); Neutrophils % 72.8 % (37.0-80.0); Platelet Count 385 K/mm3 (142-424); Red Blood Count 4.63 M/mm3 (4.60-6.20); Red Cell Distribution Width 13.1 % (11.5-17.5)
[2022-01-03 21:14] LABS: Chloride 101 mmol/L (98-107)
[2022-01-03 21:15] LABS: Potassium 4.1 mmoL/L (3.5-5.1); Sodium 136 mmol/L (136-145)
[2022-01-03 21:17] LABS: Alanine Aminotransferase 23 U/L (12-78); Aspartate Amino Transferase 29 U/L (17-59); Blood Urea Nitrogen 37 mg/dl (9-20); Creatinine Clearance Estimated 59 mL/min (50-200); Estimated Glomerular Filt Rate 36 ml/min (>60); GFR (African American) 44 ML/MIN (>60); Lipase 48 U/L (23-300)
[2022-01-03 21:18] LABS: Albumin Level 5.1 g/dl (3.5-5.0); Albumin/Globulin Ratio 1.5 (1.1-1.8); Alkaline Phosphatase 96 U/L (38-126); Anion Gap 15.1 mEq/L (5-15); Carbon Dioxide 24 mmol/L (22.0-30.0); Globulin 3.5 g/dL (1.3-3.2); Glucose 164 mg/dl (74-100); Phosphorous 3.6 mg/dl (2.5-4.5); Total Protein,Serum 8.6 g/dl (6.3-8.2)
--- NOTE | 2022-01-03 21:33 | PC.NURSE ---
at BS speaking with pt
--- NOTE | 2022-01-03 21:36 | CT_ITS ---
PROCEDURE INFORMATION: Exam: CT Lumbar Spine Without Contrast Exam date and time: 01/03/2022 10:02 PM Age: 61 years old Clinical indication: Patient HX: No known injury low back pain RT leg pain; Additional info: Low back pain, midline tenderness TECHNIQUE: Imaging protocol: Computed tomography of the lumbar spine without contrast. Radiation optimization: All CT scans at this facility use at least one of these dose optimization techniques: automated exposure control; mA and/or kV adjustment per patient size (includes targeted exams where dose is matched to clinical indication); or iterative reconstruction. COMPARISON: CT LUMBAR SPINE WO CON 07/05/2020 1:25 PM FINDINGS: Bones/joints: No evidence for acute fracture or spondylolisthesis is identified on CT of lumbar spine. Osteophytosis and eburnation of the sacroiliac joints with vacuum phenomenon bilaterally. Discs/Spinal canal/Neural foramina: Circumferential disc bulge, ligamentum flavum hypertrophy and degenerative facet arthropathy result in central spinal canal stenosis at L3-L4. Loss of disc height, posterolateral disc and osteophyte complex and degenerative facet arthropathy result in bilateral foraminal stenosis at L3-L4, L4-L5 and L5-S1. Vasculature: Fusiform aneurysmal dilation of the infrarenal abdominal aorta reaches 3.3 cm in greatest cross section. Calcifications within the aorta and its branches. Soft tissues: Unremarkable. IMPRESSION: 1. No evidence for acute fracture or spondylolisthesis is identified on CT of lumbar spine. 2. Circumferential disc bulge, ligamentum flavum hypertrophy and degenerative facet arthropathy result in central spinal canal stenosis at L3-L4. 3. Loss of disc height, posterolateral disc and osteophyte complex and degenerative facet arthropathy result in bilateral foraminal stenosis at L3-L4, L4-L5 and L5-S1. 4. Fusiform aneurysmal dilation of the infrarenal abdominal aorta reaches 3.3 cm in greatest cross section.
--- NOTE | 2022-01-03 22:33 | HMH.EDGENADL ---
ED Disposition Clinical Impression: AAA (abdominal aortic aneurysm) without rupture Back Pain Qualifiers: Back pain location: low back pain Chronicity: chronic Back pain laterality: midline Sciatica presence: without sciatica Qualified Code(s): M54.50 - Low back pain, unspecified Spinal stenosis Qualifiers: Spinal region: lumbar Neurogenic claudication status: without neurogenic claudication Qualified Code(s): M48.061 - Spinal stenosis, lumbar region without neurogenic claudication Disposition: Home, Self-Care Condition on Discharge: Good Instructions: DI for Chronic Pain -- Adult, DI for Acute Pain -- Adult Additional Instructions: Please follow-up with your primary care provider over the next 48 hours. Continue taking your pain medications at home as prescribed. A prescription for a muscle relaxer was sent to the pharmacy. Return to the emergency department for any new or worsening symptoms, such as new numbness or tingling, urinary incontinence, fecal incontinence, difficulty walking, or other concerns. Prescriptions: methocarbamoL [Methocarbamol 500mg Tablet] 500 mg PO BID PRN #20 tab PRN Reason: Moderate To Severe Pain Transmission Status: Received by [facility] Referrals: Knostantin Dawn MD [Primary Care Provider] - - Critical Care Critical Care Time: No Attestation: On 01/03/22, the high probability of a clinically significant, sudden or life threatening deterioration of the following system(s) required my full and direct attention, intervention and personal management. The time I documented below is in addition to time spent performing reported procedures but includes the following listed in this critical care notation. Medical Decision Making - [place] Inquiry Pt receiving controlled substance: No Vital Signs: 01/03/22 20:42 01/03/22 21:30 01/03/22 23:05 Temperature 98.9 F 98.1 F Temperature Source Oral Oral Pulse Rate 94 H 87 Pulse Rate [Left Radial] 76 Respiratory Rate 18 16 Blood Pressure 102/79 L 143/108 H Blood Pressure [Right Arm] 126/89 Blood Pressure Mean [Right Arm] 101 Blood Pressure Source [Right Arm] Automatic Cuff Blood Pressure Position Sitting Blood Pressure Position [Right Arm] Sitting 02 Sat by Pulse Oximetry 99 98 Oxygen Delivery Method Room Air Room Air Room Air - Lab Data Lab Results 01/03/22 20:39: Urine Color Yellow, Urine Appearance Clear, Urine pH 5.5, Ur Specific [place] 1.020, Urine Protein Trace, Urine Glucose (UA) 3+, Urine Ketones Negative, Urine Blood Negative, Urine Nitrate Negative, Urine Bilirubin Negative, Urine Urobilinogen 0.2, Ur Leukocyte Esterase Negative, Urine RBC None, Urine WBC Occasional, Ur Squamous Epith Cells Occasional, Urine Bacteria None 01/03/22 20:57: WBC 8.0, RBC 4.63, Hgb 15.0, Hct 47.6, MCV 102.8 H, MCH 32.4 H, MCHC 31.6 L, RDW 13.1, Plt Count 385, MPV 7.6, Neut % (Auto) 72.8, Lymph % (Auto) 17.1, [place] % (Auto) 6.7, Eos % (Auto) 2.5, Baso % (Auto) 0.8, Neut # (Auto) 5.8, Lymph # (Auto) 1.4, [place] # (Auto) 0.5, Eos # (Auto) 0.2, Baso # (Auto) 0.1 01/03/22 20:57: Sodium 136, Potassium 4.1, Chloride 101, Carbon Dioxide 24, Anion Gap 15.1 H, BUN 37 H, Creatinine 1.90 H, Estimated Creat Clear 59, Estimated GFR 36 L, Est GFR ( Amer) 44 L, Glucose 164 H, Calcium 10.0, Phosphorus 3.6, Magnesium 2.0, Total Bilirubin 1.0, AST 29, ALT 23, Alkaline Phosphatase 96, Total Protein 8.6 H, Albumin 5.1 H, Globulin 3.5 H, Albumin/Globulin Ratio 1.5 01/03/22 20:57: Lipase 48 Result diagrams: 01/03/22 20:57 01/03/22 20:57 Orders (Tests/Meds): ED MEDICATIONS Generic Name Dose Route Start Last Admin Trade Name Miltonq PRN Reason Stop Dose Admin Lidocaine 1 each 01/03/22 21:45 01/03/22 21:46 Lidocaine 5% Transdermal Patch TP 02/02/22 21:44 1 each Q24H YADY Administration Methocarbamol 500 mg 01/03/22 21:45 01/03/22 21:46 Methocarbamol 500mg Tablet PO 02/02/22 21:44 500 mg BID YADY Administr
== END 2022-01-03 23:16 | disposition home or self-care (01) ==
PROVIDERS: Emergency Provider Emergency Medicine; PCP Internal Medicine Adolescent Medicine
DX: R42 Dizziness and giddiness (principal); C34.90 Malignant neoplasm of unspecified part of unspecified bronchus or lung; R10.31 Right lower quadrant pain; D64.9 Anemia, unspecified; R60.9 Edema, unspecified; I95.9 Hypotension, unspecified; I13.0 Hypertensive heart and chronic kidney disease with heart failure and stage 1 through stage 4 chronic kidney disease, or unspecified chronic kidney disease; I50.9 Heart failure, unspecified; N18.30 Chronic kidney disease, stage 3 unspecified; I25.10 Atherosclerotic heart disease of native coronary artery without angina pectoris; I25.2 Old myocardial infarction; I73.9 Peripheral vascular disease, unspecified; I71.4 Abdominal aortic aneurysm, without rupture; I49.9 Cardiac arrhythmia, unspecified; E78.5 Hyperlipidemia, unspecified; E11.40 Type 2 diabetes mellitus with diabetic neuropathy, unspecified; M54.2 Cervicalgia; M81.0 Age-related osteoporosis without current pathological fracture; M19.90 Unspecified osteoarthritis, unspecified site; M48.061 Spinal stenosis, lumbar region without neurogenic claudication; G47.30 Sleep apnea, unspecified; G47.33 Obstructive sleep apnea (adult) (pediatric); G43.909 Migraine, unspecified, not intractable, without status migrainosus; G25.81 Restless legs syndrome; N40.0 Benign prostatic hyperplasia without lower urinary tract symptoms; H26.9 Unspecified cataract; L98.499 Non-pressure chronic ulcer of skin of other sites with unspecified severity; J44.9 Chronic obstructive pulmonary disease, unspecified; F41.9 Anxiety disorder, unspecified; Z79.02 Long term (current) use of antithrombotics/antiplatelets; Z79.4 Long term (current) use of insulin; Z79.51 Long term (current) use of inhaled steroids; Z79.899 Other long term (current) drug therapy; Z88.6 Allergy status to analgesic agent; Z88.8 Allergy status to other drugs, medicaments and biological substances; Z92.21 Personal history of antineoplastic chemotherapy; Z92.3 Personal history of irradiation; Z86.73 Personal history of transient ischemic attack (TIA), and cerebral infarction without residual deficits; Z87.891 Personal history of nicotine dependence
CPT/HCPCS: 72131; 80053; 81001; 83690; 83735; 84100; 85025; 96374; 99284

== ENCOUNTER → 2022-01-15 09:37 | Outpatient (CLI) | payer BC, SELFPAY ==
--- NOTE | 2022-01-15 09:43 | XR_ITS ---
FINAL REPORT CLINICAL HISTORY: left leg pain FINDINGS: LEFT KNEE 4 views of the left knee obtained. There is no acute fracture or dislocation. There is mild degenerative change. There are chronic calcifications inferior and lateral to the patella. IMPRESSION: Mild degenerative change with no acute bony abnormality. Reviewed, Interpreted and Dictated by Davis Mitchell III, MD Transcribed by Susan Virgen Authenticated and [facility]
--- NOTE | 2022-01-15 09:43 | XR_ITS ---
FINAL REPORT CLINICAL HISTORY: left thigh pain COMPARISON: February 05, 2021 FINDINGS: LEFT HIP Two views of the left hip including an AP pelvis demonstrate no acute fracture or dislocation. There is mild degenerative change of the left hip and degenerative changes of the SI joints. The visualized bony structures are well aligned. There is a probable subchondral cyst at the left superior acetabulum which is similar to the prior exam. No soft tissue abnormality is seen. IMPRESSION: Degenerative change with no acute bony abnormality. Reviewed, Interpreted and Dictated by Davis Mitchell III, MD Transcribed by Susan Virgen Authenticated and [facility]
== END ==
PROVIDERS: PCP Internal Medicine Adolescent Medicine; Visit Provider Physician Assistant Surgical
DX: M79.605 Pain in left leg (principal); M79.652 Pain in left thigh; M25.562 Pain in left knee
CPT/HCPCS: 73502; 73564

== ENCOUNTER → 2022-02-25 12:48 | Outpatient (CLI) | payer BC, SELFPAY ==
[2022-02-25 13:30] VITALS: PULSE 57; PULSE 58
== END ==
PROVIDERS: PCP Internal Medicine Adolescent Medicine; Visit Provider Internal Medicine Pulmonary Disease
DX: R06.09 Other forms of dyspnea (principal)
CPT/HCPCS: 94060; 94618; 94640; 94727; 94729

== ENCOUNTER 2022-03-08 11:00 | Emergency (ER) | payer BC, SELFPAY ==
[2022-03-08 11:00] VITALS: BP 126/70; PULSE 68; RESP 16; TEMP 36.6; O2SAT 98; BMI 37.1; BMI 38.9
--- NOTE | 2022-03-08 11:08 | HMH.EDBACK ---
Discharge Plan Disposition Patient Disposition: Home, Self-Care Condition: Fair Prescriptions Prescriptions: New cyclobenzaprine 10 mg tablet 10 mg PO TID PRN (Reason: muscle spasm) Qty: 10 0RF No Action albuterol sulfate 90 mcg/actuation HFA aerosol inhaler 2 inh IH QID PRN (Reason: shortness of breath or wheezing) 90 Days Qty: 8.5 2RF clonazepam 0.5 mg tablet 0.5 mg PO BID gabapentin 800 mg tablet 800 mg PO TID oxycodone 10 mg tablet 10 mg PO TIDP PRN (Reason: PAIN) (DME) OneTouch Ultra Test Strip See Rx Instructions .ROUTE .MEDSUPPLY Qty: 10 Rx Instructions: As directed (DME) pen needle, diabetic [BD Ultra-Fine Short Pen Needle] 31 gauge x 5/16 needle See Rx Instructions .ROUTE .MEDSUPPLY Qty: 1200 Rx Instructions: As directed Januvia 100 mg tablet 100 mg PO DAILY glipizide 10 mg tablet 10 mg PO DAILY torsemide 100 mg tablet 50 mg PO DAILY Qty: 30 0RF Rx Instructions: TAKE 1/2 TABLET BY MOUTH ONCE A DAY spironolactone 50 mg tablet See Rx Instructions .ROUTE .COMPLEX Qty: 30 5RF Dose Instruction: TAKE ONE TABLET BY MOUTH ONCE A DAY Rx Instructions: TAKE ONE TABLET BY MOUTH ONCE A DAY ranolazine 1,000 mg tablet extended release 12 hr See Rx Instructions .ROUTE .COMPLEX Qty: 60 2RF Dose Instruction: TAKE ONE TABLET BY MOUTH 2 TIMES A DAY Rx Instructions: TAKE ONE TABLET BY MOUTH 2 TIMES A DAY metoprolol tartrate 25 mg tablet See Rx Instructions .ROUTE .COMPLEX Qty: 60 2RF Dose Instruction: TAKE ONE TABLET BY MOUTH 2 TIMES A DAY FOR HYPERTENSION Rx Instructions: TAKE ONE TABLET BY MOUTH 2 TIMES A DAY FOR HYPERTENSION Spiriva with HandiHaler 18 mcg capsule, w/inhalation device 1 cap inhalation DAILY 90 Days Qty: 90 3RF Rx Instructions: puncture 1 cap using device; one dose = 2 inhalations famotidine 20 mg tablet See Rx Instructions .ROUTE .COMPLEX Qty: 30 2RF Dose Instruction: TAKE ONE TABLET BY MOUTH ONCE A DAY Rx Instructions: TAKE ONE TABLET BY MOUTH ONCE A DAY ergocalciferol (vitamin D2) 1,250 MCG capsule 50,000 mcg PO WEEKLY insulin glargine 100 UNIT/ML insulin pen 15 units SQ HS empagliflozin 25 MG tablet 25 mg PO DAILY atorvastatin 20 MG tablet 20 mg PO DAILY isosorbide mononitrate 30 MG tablet extended release 24 hr 30 mg PO DAILY clopidogrel 75 MG tablet 75 mg PO DAILY lisinopril 5 MG tablet 5 mg PO DAILY methocarbamol 500 MG tablet 500 mg PO BID PRN (Reason: Moderate To Severe Pain) Qty: 20 0RF Referrals Follow up/Referrals: Konstantin Dawn MD [Primary Care Provider] - See instructions Activity Restrictions/Add. Instructions Additional Instructions/Restrictions: Please follow-up with your primary care doctor in about 2 to 3 days if you do not feel any improvement. Return to the emergency department if symptoms worsen. Avoid stooping and or lifting any heavy objects heavier than a grocery bag. Clinical Impressions Clinical Impression: Back Pain Instructions Patient Instructions: DI for Back Pain With Sciatica Discharge ED Provider: Payal Linares Back Pain HPI General Chief Complaint: PAIN Stated Complaint: back pain Time Seen by Provider: 03/08/22 11:09 Mode of Arrival: Family Vehicle Source of Information: Patient Limitations: No Limitations History of Present Illness HPI Narrative: The patient presents to the emergency department complaining of lower back pain mostly on the left side without any radiation. It is worse with movement. It started when he stooped forward yesterday. He states that he has not had this kind of pain in the past. He denies any neurological complaints. No urinary incontinence or saddle anesthesia. Complaint: back pain Similar Symptoms Previously: No Related Data Home Medications Medication Instructions Recorded Confirmed
[2022-03-08 11:31] VITALS: BP 110/63; PULSE 59; RESP 16; O2SAT 93
[2022-03-08 12:01] VITALS: BP 108/66; PULSE 57; O2SAT 94
[2022-03-08 13:11] VITALS: BP 152/74; PULSE 52; RESP 16; TEMP 36.6; O2SAT 98
== END 2022-03-08 13:13 | disposition home or self-care (01) ==
PROVIDERS: Emergency Provider Emergency Medicine; PCP Internal Medicine Adolescent Medicine
DX: M54.9 Dorsalgia, unspecified (principal); Z79.899 Other long term (current) drug therapy; Z79.4 Long term (current) use of insulin; F41.9 Anxiety disorder, unspecified; E11.9 Type 2 diabetes mellitus without complications; J44.9 Chronic obstructive pulmonary disease, unspecified; Z85.118 Personal history of other malignant neoplasm of bronchus and lung
CPT/HCPCS: 96372; 99283

== ENCOUNTER 2022-03-10 10:48 | Emergency (ER) | payer BC, SELFPAY ==
[2022-03-10 10:49] VITALS: BP 105/63; PULSE 76; RESP 18; TEMP 36.4; O2SAT 100; BMI 38.2
--- NOTE | 2022-03-10 10:53 | HMH.EDABDPAI ---
Discharge Plan Prescriptions Prescriptions: No Action albuterol sulfate 90 mcg/actuation HFA aerosol inhaler 2 inh IH QID PRN (Reason: shortness of breath or wheezing) 90 Days Qty: 8.5 2RF clonazepam 0.5 mg tablet 0.5 mg PO BID gabapentin 800 mg tablet 800 mg PO TID oxycodone 10 mg tablet 10 mg PO TIDP PRN (Reason: PAIN) (DME) OneTouch Ultra Test Strip See Rx Instructions .ROUTE .MEDSUPPLY Qty: 10 Rx Instructions: As directed (DME) pen needle, diabetic [BD Ultra-Fine Short Pen Needle] 31 gauge x 5/16 needle See Rx Instructions .ROUTE .MEDSUPPLY Qty: 1200 Rx Instructions: As directed Januvia 100 mg tablet 100 mg PO DAILY glipizide 10 mg tablet 10 mg PO DAILY torsemide 100 mg tablet 50 mg PO DAILY Qty: 30 0RF Rx Instructions: TAKE 1/2 TABLET BY MOUTH ONCE A DAY spironolactone 50 mg tablet See Rx Instructions .ROUTE .COMPLEX Qty: 30 5RF Dose Instruction: TAKE ONE TABLET BY MOUTH ONCE A DAY Rx Instructions: TAKE ONE TABLET BY MOUTH ONCE A DAY ranolazine 1,000 mg tablet extended release 12 hr See Rx Instructions .ROUTE .COMPLEX Qty: 60 2RF Dose Instruction: TAKE ONE TABLET BY MOUTH 2 TIMES A DAY Rx Instructions: TAKE ONE TABLET BY MOUTH 2 TIMES A DAY metoprolol tartrate 25 mg tablet See Rx Instructions .ROUTE .COMPLEX Qty: 60 2RF Dose Instruction: TAKE ONE TABLET BY MOUTH 2 TIMES A DAY FOR HYPERTENSION Rx Instructions: TAKE ONE TABLET BY MOUTH 2 TIMES A DAY FOR HYPERTENSION Spiriva with HandiHaler 18 mcg capsule, w/inhalation device 1 cap inhalation DAILY 90 Days Qty: 90 3RF Rx Instructions: puncture 1 cap using device; one dose = 2 inhalations famotidine 20 mg tablet See Rx Instructions .ROUTE .COMPLEX Qty: 30 2RF Dose Instruction: TAKE ONE TABLET BY MOUTH ONCE A DAY Rx Instructions: TAKE ONE TABLET BY MOUTH ONCE A DAY ergocalciferol (vitamin D2) 1,250 MCG capsule 50,000 mcg PO WEEKLY cyclobenzaprine 10 mg tablet 10 mg PO TID PRN (Reason: muscle spasm) Qty: 10 0RF insulin glargine 100 UNIT/ML insulin pen 15 units SQ HS empagliflozin 25 MG tablet 25 mg PO DAILY atorvastatin 20 MG tablet 20 mg PO DAILY isosorbide mononitrate 30 MG tablet extended release 24 hr 30 mg PO DAILY clopidogrel 75 MG tablet 75 mg PO DAILY lisinopril 5 MG tablet 5 mg PO DAILY methocarbamol 500 MG tablet 500 mg PO BID PRN (Reason: Moderate To Severe Pain) Qty: 20 0RF Referrals Follow up/Referrals: Philip Khan MD [Primary Care Provider] - See instructions Abdominal Pain HPI General Stated Complaint: back and left side pain Time Seen by Provider: 03/10/22 10:54 Related Data Home Medications Medication Instructions Recorded Confirmed clonazepam 0.5 mg tablet 0.5 mg PO BID Anxiety 10/06/19 02/25/22 gabapentin 800 mg tablet 800 mg PO TID Pain 10/06/19 02/25/22 ergocalciferol (vitamin D2) 1,250 50,000 mcg PO WEEKLY Supplement 11/17/19 02/25/22 mcg (50,000 unit) capsule oxycodone 10 mg tablet 10 mg PO TIDP PRN PAIN 09/12/20 02/25/22 atorvastatin 20 mg tablet 20 mg PO DAILY Cholesterol 11/22/21 02/25/22 clopidogrel 75 mg tablet 75 mg PO DAILY platelet inhibitor 11/22/21 02/25/22 empagliflozin 25 mg tablet 25 mg PO DAILY Diabetes 11/22/21 02/25/22 insulin glargine 100 unit/mL (3 15 units SQ HS Diabetes 11/22/21 02/25/22 mL) subcutaneous pen isosorbide mononitrate 30 mg 30 mg PO DAILY blood pressure 11/22/21 02/25/22 tablet,extended release 24 hr lisinopril 5 mg tablet 5 mg PO DAILY High blood pressure 11/22/21 02/25/22 blood sugar diagnostic (OneTouch #10 ea 11/28/21 02/25/22 Ultra Test strips) glipizide 10 mg tablet 10 mg PO DAILY 11/28/21 02/25/22 pen needle, diabetic 31 gauge x #1,200 ea 11/28/21 02/25/2210/21 (BD Ultra-Fine Short Pen Needle) sitagliptin 100 mg tablet (Januvia) 100 mg PO DAILY
--- NOTE | 2022-03-10 10:56 | PC.NURSE ---
ED MD AT BEDSIDE
[2022-03-10 11:00] VITALS: BP 108/63; PULSE 80; O2SAT 93
--- NOTE | 2022-03-10 11:00 | HMH.EDBACK ---
Discharge Plan Disposition Patient Disposition: Xfer Critical Access Hosp Condition: Fair Prescriptions Prescriptions: New prednisone 20 mg tablet 60 mg PO DAILY Qty: 15 0RF No Action albuterol sulfate 90 mcg/actuation HFA aerosol inhaler 2 inh IH QID PRN (Reason: shortness of breath or wheezing) 90 Days Qty: 8.5 2RF clonazepam 0.5 mg tablet 0.5 mg PO BID gabapentin 800 mg tablet 800 mg PO TID oxycodone 10 mg tablet 10 mg PO TIDP PRN (Reason: PAIN) (DME) OneTouch Ultra Test Strip See Rx Instructions .ROUTE .MEDSUPPLY Qty: 10 Rx Instructions: As directed (DME) pen needle, diabetic [BD Ultra-Fine Short Pen Needle] 31 gauge x 5/16 needle See Rx Instructions .ROUTE .MEDSUPPLY Qty: 1200 Rx Instructions: As directed Januvia 100 mg tablet 100 mg PO DAILY glipizide 10 mg tablet 10 mg PO DAILY torsemide 100 mg tablet 50 mg PO DAILY Qty: 30 0RF Rx Instructions: TAKE 1/2 TABLET BY MOUTH ONCE A DAY spironolactone 50 mg tablet See Rx Instructions .ROUTE .COMPLEX Qty: 30 5RF Dose Instruction: TAKE ONE TABLET BY MOUTH ONCE A DAY Rx Instructions: TAKE ONE TABLET BY MOUTH ONCE A DAY ranolazine 1,000 mg tablet extended release 12 hr See Rx Instructions .ROUTE .COMPLEX Qty: 60 2RF Dose Instruction: TAKE ONE TABLET BY MOUTH 2 TIMES A DAY Rx Instructions: TAKE ONE TABLET BY MOUTH 2 TIMES A DAY metoprolol tartrate 25 mg tablet See Rx Instructions .ROUTE .COMPLEX Qty: 60 2RF Dose Instruction: TAKE ONE TABLET BY MOUTH 2 TIMES A DAY FOR HYPERTENSION Rx Instructions: TAKE ONE TABLET BY MOUTH 2 TIMES A DAY FOR HYPERTENSION Spiriva with HandiHaler 18 mcg capsule, w/inhalation device 1 cap inhalation DAILY 90 Days Qty: 90 3RF Rx Instructions: puncture 1 cap using device; one dose = 2 inhalations famotidine 20 mg tablet See Rx Instructions .ROUTE .COMPLEX Qty: 30 2RF Dose Instruction: TAKE ONE TABLET BY MOUTH ONCE A DAY Rx Instructions: TAKE ONE TABLET BY MOUTH ONCE A DAY ergocalciferol (vitamin D2) 1,250 MCG capsule 50,000 mcg PO WEEKLY cyclobenzaprine 10 mg tablet 10 mg PO TID PRN (Reason: muscle spasm) Qty: 10 0RF insulin glargine 100 UNIT/ML insulin pen 15 units SQ HS empagliflozin 25 MG tablet 25 mg PO DAILY atorvastatin 20 MG tablet 20 mg PO DAILY isosorbide mononitrate 30 MG tablet extended release 24 hr 30 mg PO DAILY clopidogrel 75 MG tablet 75 mg PO DAILY lisinopril 5 MG tablet 5 mg PO DAILY methocarbamol 500 MG tablet 500 mg PO BID PRN (Reason: Moderate To Severe Pain) Qty: 20 0RF Referrals Follow up/Referrals: Philip Khan MD [Primary Care Provider] - See instructions Activity Restrictions/Add. Instructions Additional Instructions/Restrictions: Please keep your follow-up appointment with your primary care doctor as scheduled on Thursday. I have prescribed a steroid for your back pain. The steroid will most likely increase your blood glucose level. Therefore, you need to check your blood sugar frequently and you may have to increase your diabetic medications. Please return to the emergency department if you feel worse in any way. Clinical Impressions Clinical Impression: Sciatica associated with disorder of lumbosacral spine Instructions Patient Instructions: DI for Low Back Pain Discharge ED Provider: Payal Linares Back Pain [facility] General Chief Complaint: Back Pain/Injury Stated Complaint: back and left side pain Time Seen by Provider: 03/10/22 10:54 Mode of Arrival: Ambulatory Limitations: No Limitations Description of Symptoms (Recalled from ER Triage Doc. by RN): PT REPORTS PAIN TO BACK, BELOW BOTH SHOULDER BLADES History of Present Illness HPI Narrative: The patient presents to the emergency department complaining of left-sided back pain that radiates down his buttocks.
[2022-03-10 11:10] VITALS: BP 108/63; PULSE 78; RESP 18; TEMP 36.4; O2SAT 100
== END 2022-03-10 11:14 | disposition home or self-care (01) ==
PROVIDERS: Emergency Provider Emergency Medicine; PCP Internal Medicine Adolescent Medicine
DX: M54.41 Lumbago with sciatica, right side (principal); R42 Dizziness and giddiness; R06.02 Shortness of breath; I95.9 Hypotension, unspecified; I73.9 Peripheral vascular disease, unspecified; E11.9 Type 2 diabetes mellitus without complications; M62.838 Other muscle spasm; G47.33 Obstructive sleep apnea (adult) (pediatric); J43.8 Other emphysema; R59.0 Localized enlarged lymph nodes; Z79.4 Long term (current) use of insulin; Z79.51 Long term (current) use of inhaled steroids; Z79.52 Long term (current) use of systemic steroids; Z79.899 Other long term (current) drug therapy; Z88.5 Allergy status to narcotic agent; Z88.6 Allergy status to analgesic agent; Z87.891 Personal history of nicotine dependence; Z85.118 Personal history of other malignant neoplasm of bronchus and lung
CPT/HCPCS: 99283

== ENCOUNTER → 2022-04-07 13:16 | Outpatient (POV) | payer BC, SELFPAY | PROVIDERS: Visit Provider Internal Medicine Nephrology | DX: Z00.00 Encounter for general adult medical examination without abnormal findings (principal) ==

== ENCOUNTER 2022-04-13 14:26 | Emergency (ER) | payer BC, SELFPAY ==
[2022-04-13 14:27] VITALS: BP 110/73; PULSE 80; RESP 18; TEMP 36.9; O2SAT 99; BMI 38.2
--- NOTE | 2022-04-13 15:22 | HMH.EDGENADL ---
Discharge Plan Disposition Patient Disposition: Home, Self-Care Condition: Fair Prescriptions Prescriptions: New cefdinir 300 mg capsule 300 mg PO BID 5 Days Qty: 10 0RF No Action albuterol sulfate 90 mcg/actuation HFA aerosol inhaler 2 inh IH QID PRN (Reason: shortness of breath or wheezing) 90 Days Qty: 8.5 2RF clonazepam 0.5 mg tablet 0.5 mg PO BID gabapentin 800 mg tablet 800 mg PO TID oxycodone 10 mg tablet 10 mg PO TIDP PRN (Reason: PAIN) (DME) OneTouch Ultra Test Strip See Rx Instructions .ROUTE .MEDSUPPLY Qty: 10 Rx Instructions: As directed ([facility]) pen needle, diabetic [BD Ultra-Fine Short Pen Needle] 31 gauge x 5/16 needle See Rx Instructions .ROUTE .MEDSUPPLY Qty: 1200 Rx Instructions: As directed Januvia 100 mg tablet 100 mg PO DAILY glipizide 10 mg tablet 10 mg PO DAILY torsemide 100 mg tablet 50 mg PO DAILY Qty: 30 0RF Rx Instructions: TAKE 1/2 TABLET BY MOUTH ONCE A DAY spironolactone 50 mg tablet See Rx Instructions .ROUTE .COMPLEX Qty: 30 5RF Dose Instruction: TAKE ONE TABLET BY MOUTH ONCE A DAY Rx Instructions: TAKE ONE TABLET BY MOUTH ONCE A DAY ranolazine 1,000 mg tablet extended release 12 hr See Rx Instructions .ROUTE .COMPLEX Qty: 60 2RF Dose Instruction: TAKE ONE TABLET BY MOUTH 2 TIMES A DAY Rx Instructions: TAKE ONE TABLET BY MOUTH 2 TIMES A DAY metoprolol tartrate 25 mg tablet See Rx Instructions .ROUTE .COMPLEX Qty: 60 2RF Dose Instruction: TAKE ONE TABLET BY MOUTH 2 TIMES A DAY FOR HYPERTENSION Rx Instructions: TAKE ONE TABLET BY MOUTH 2 TIMES A DAY FOR HYPERTENSION Spiriva with HandiHaler 18 mcg capsule, w/inhalation device 1 cap inhalation DAILY 90 Days Qty: 90 3RF Rx Instructions: puncture 1 cap using device; one dose = 2 inhalations famotidine 20 mg tablet See Rx Instructions .ROUTE .COMPLEX Qty: 30 2RF Dose Instruction: TAKE ONE TABLET BY MOUTH ONCE A DAY Rx Instructions: TAKE ONE TABLET BY MOUTH ONCE A DAY clopidogrel 75 mg tablet See Rx Instructions .ROUTE .COMPLEX Qty: 30 4RF Dose Instruction: TAKE ONE TABLET BY MOUTH ONCE A DAY Rx Instructions: TAKE ONE TABLET BY MOUTH ONCE A DAY lisinopril 5 mg tablet See Rx Instructions .ROUTE .COMPLEX Qty: 30 4RF Dose Instruction: TAKE ONE TABLET BY MOUTH ONCE A DAY FOR HYPERTENSION Rx Instructions: TAKE ONE TABLET BY MOUTH ONCE A DAY FOR HYPERTENSION ergocalciferol (vitamin D2) 1,250 MCG capsule 50,000 mcg PO WEEKLY cyclobenzaprine 10 mg tablet 10 mg PO TID PRN (Reason: muscle spasm) Qty: 10 0RF prednisone 20 mg tablet 60 mg PO DAILY Qty: 15 0RF insulin glargine 100 UNIT/ML insulin pen 15 units SQ HS empagliflozin 25 MG tablet 25 mg PO DAILY atorvastatin 20 MG tablet 20 mg PO DAILY isosorbide mononitrate 30 MG tablet extended release 24 hr 30 mg PO DAILY methocarbamol 500 MG tablet 500 mg PO BID PRN (Reason: Moderate To Severe Pain) Qty: 20 0RF Referrals Follow up/Referrals: Philip Khan MD [Primary Care Provider] - See instructions Clinical Impressions Clinical Impression: Back Pain, Acute UTI Instructions Patient Instructions: DI for Urinary Tract Infection (UTI) Discharge ED Provider: Ricardo Ford General Adult HPI General Chief complaint: PAIN Stated complaint: kidney and back pain Time Seen by Provider: 04/13/22 14:30 Mode of Arrival: Ambulatory Source of Information: Patient Limitations: No Limitations Description of Symptoms (Recalled from ER Triage Doc. by RN): c/o lower back pain that goes into bilateral sides that started yesterday after work, he was at work today and had to leave due to the pain History of Present Illness HPI narrative: Patient is a 61-year-old male with a past medical history of hypertension, diabetes, hyperlipidemia wh
[2022-04-13 15:30] VITALS: BP 109/81; PULSE 82; RESP 20; O2SAT 99
[2022-04-13 15:36] LABS: Microscopic, Urine URINE MICROSCOPIC (MICROSCOPIC)
[2022-04-13 15:42] LABS: Appearance,Urine CLEAR (Clear); Bilirubin,Urine Negative (Negative); Blood, Urine Negative (Negative); Color,Urine YELLOW (Yellow); Glucose,Urine (UA) 3+ (Negative); Ketones,Urine 1+ (Negative); Leukocyte Esterase,Urine Negative (Negative); Nitrate,Urine Negative (Negative); Protein,Urine Negative (Negative); Specific Gravity, Urine 1.015 (1.005-1.030); Urobilinogen,Urine 0.2 EU/dl (0.2)
[2022-04-13 15:46] LABS: Alanine Aminotransferase 28 U/L (12-78); Albumin Level 4.8 g/dl (3.5-5.0); Albumin/Globulin Ratio 1.8 (1.1-1.8); Alkaline Phosphatase 97 U/L (38-126); Anion Gap 19.3 mEq/L (5-15); Aspartate Amino Transferase 34 U/L (17-59); Bilirubin,Total 1.1 mg/dl (0.2-1.3); Blood Urea Nitrogen 20 mg/dl (9-20); Calcium 10.1 mg/dl (8.4-10.2); Carbon Dioxide 22 mmol/L (22.0-30.0); Chloride 100 mmol/L (98-107); Creatinine Clearance Estimated 84 mL/min (50-200); Estimated Glomerular Filt Rate 52 ml/min (>60); GFR (African American) 63 ML/MIN (>60); Globulin 2.7 g/dL (1.3-3.2); Glucose 138 mg/dl (74-100); Lipase 22 U/L (23-300); Potassium 4.3 mmoL/L (3.5-5.1); Sodium 137 mmol/L (136-145); Total Protein,Serum 7.5 g/dl (6.3-8.2)
[2022-04-13 16:00] VITALS: BP 131/72; PULSE 89; RESP 20; O2SAT 99
--- NOTE | 2022-04-13 16:15 | CT_ITS ---
PROCEDURE INFORMATION: Exam: CT Abdomen And Pelvis With Contrast Exam date and time: 04/13/2022 5:27 PM Age: 61 years old Clinical indication: Abdominal pain; Epigastric; Additional info: Epigastric pain TECHNIQUE: Imaging protocol: Computed tomography of the abdomen and pelvis with contrast. Radiation optimization: All CT scans at this facility use at least one of these dose optimization techniques: automated exposure control; mA and/or kV adjustment per patient size (includes targeted exams where dose is matched to clinical indication); or iterative reconstruction. Contrast material: ISOVUE; Contrast volume: 75 ml; Contrast route: IV; COMPARISON: CT ABDOMEN PELVIS W CON 03/22/2021 9:02 AM FINDINGS: Lungs: Partially imaged left lower lobe fibrotic changes. Mild scarring and atelectasis in the lower lungs. Heart: Coronary artery calcifications. Liver: There is a 3.4 cm left hepatic lobe focus of enhancement on image 27 series 3 and a right hepatic focus of enhancement measuring 3.1 cm on image 27 series 3 that are either new or more conspicuous than on prior studies. Probable hepatic steatosis. Gallbladder and bile ducts: Gallbladder is absent. Pancreas: Unchanged 2.5 cm pancreatic head cystic lesion image 38 series 3. Spleen: Normal. No splenomegaly. Adrenal glands: Normal. No mass. Kidneys and ureters: Normal. No hydronephrosis. Stomach and bowel: Unremarkable. No obstruction. No mucosal thickening. Appendix: Unremarkable appendix. Intraperitoneal space: Unremarkable. No free air. No significant fluid collection. Vasculature: The arteries demonstrate severe atherosclerotic disease. Unruptured 3 cm infrarenal abdominal aortic aneurysm. Peripheral transient vascular phenomenon in the liver on image 33 series 3 is noted. Lymph nodes: Unremarkable. No enlarged lymph nodes. Urinary bladder: Nonspecific urinary bladder wall thickening. Reproductive: Unremarkable as visualized. Bones/joints: Unremarkable. No acute fracture. Soft tissues: Tiny fat containing umbilical hernia. Tiny fat containing umbilical hernia. Other findings: Stigmata of old granulomatous disease. IMPRESSION: 1. Nonspecific urinary bladder wall thickening. Please exclude infection. 2. There is a 3.4 cm left hepatic lobe focus of enhancement on image 27 series 3 and a right hepatic focus of enhancement measuring 3.1 cm on image 27 series 3 that are either new or more conspicuous than on prior studies. Consider further evaluation with MRI without and with contrast to better characterize these lesions/exclude metastatic disease. 3. Unchanged 2.5 cm pancreatic head cystic lesion image 38 series 3. Reimaging every 6 months for 2 years, then every 1 year for 2 years, then every 2 years for 6 years is recommended. Alternatively, endoscopic ultrasound with fine needle aspiration is recommended. (Reference: Rimma, 2017) REFERENCES: Rimma PARKER, et al. Management of Incidental Pancreatic Cysts: A White Paper of the ACR Incidental Findings Committee. J Am Alexx Radiol. 2017;14(7):911-923.
[2022-04-13 16:21] LABS: Troponin I < 0.01 ng/ml (0.00-0.034)
[2022-04-13 16:36] LABS: Bacteria,Urine Trace /lpf
[2022-04-13 16:37] LABS: Basophils # 0.1 K/mm3 (0-0.2); Basophils % 0.8 % (0.1-2.0); Eosinophils # 0.1 K/mm3 (0.0-0.4); Hemoglobin 14.4 g/dL (14.1-18.0); Lymphocytes % 16.5 % (10-50); Mean Corpuscular HGB Conc 33.5 g/dL (31.8-35.4); Mean Corpuscular Hemoglobin 33.1 pg (27.0-31.2); Mean Corpuscular Volume 98.6 fl (80-94); Mean Platelet Volume 7.7 fl (7.4-10.4); Monocytes # 0.4 K/mm3 (0.1-1.0); Monocytes % 6.1 % (1.7-9.3); Neutrophils # 4.6 K/mm3 (1.8-7.8); Neutrophils % 75.7 % (37.0-80.0); Platelet Count 314 K/mm3 (142-424); Red Blood Count 4.36 M/mm3 (4.60-6.20); Red Cell Distribution Width 13.8 % (11.5-17.5); White Blood Count 6.1 K/mm3 (4.8-10.8)
[2022-04-13 17:00] VITALS: BP 122/73; PULSE 80; RESP 17; O2SAT 98
[2022-04-13 18:00] VITALS: BP 123/71; PULSE 80; RESP 17; TEMP 36.9; O2SAT 99
[2022-04-13 18:54] LABS: C-Reactive Protein < 0.2 mg/L (0-4)
== END 2022-04-13 18:02 | disposition home or self-care (01) ==
PROVIDERS: Emergency Provider Student in an Organized Health Care Education/Training Program; PCP Internal Medicine Adolescent Medicine
DX: M54.50 Low back pain, unspecified (principal); R10.13 Epigastric pain; R42 Dizziness and giddiness; R11.0 Nausea; I10 Essential (primary) hypertension; E78.5 Hyperlipidemia, unspecified; E11.9 Type 2 diabetes mellitus without complications; M62.838 Other muscle spasm; G47.33 Obstructive sleep apnea (adult) (pediatric); R59.0 Localized enlarged lymph nodes; J81.1 Chronic pulmonary edema; J44.9 Chronic obstructive pulmonary disease, unspecified; Z79.1 Long term (current) use of non-steroidal anti-inflammatories (NSAID); Z79.52 Long term (current) use of systemic steroids; Z79.02 Long term (current) use of antithrombotics/antiplatelets; Z79.51 Long term (current) use of inhaled steroids; Z79.899 Other long term (current) drug therapy; Z85.118 Personal history of other malignant neoplasm of bronchus and lung
CPT/HCPCS: 74177; 80053; 81001; 83690; 84484; 85025; 86140; 96360; 96374; 99285; Q9967

== ENCOUNTER → 2022-04-25 09:40 | Outpatient (CLI) | payer BC, SELFPAY | PROVIDERS: PCP Internal Medicine Adolescent Medicine; Visit Provider Neurological Surgery | DX: Z01.812 Encounter for preprocedural laboratory examination (principal); Z20.822 Contact with and (suspected) exposure to COVID-19; M54.2 Cervicalgia; M50.122 Cervical disc disorder at C5-C6 level with radiculopathy | CPT/HCPCS: C9803; U0003; U0005 ==

== ENCOUNTER → 2022-04-28 11:00 | Outpatient (CLI) | payer BC, SELFPAY ==
[2022-04-28 11:22] LABS: Blood Urea Nitrogen 19 mg/dl (9-20); Estimated Glomerular Filt Rate 57 ml/min (>60); GFR (African American) 68 ML/MIN (>60)
== END ==
PROVIDERS: PCP Internal Medicine Adolescent Medicine; Visit Provider Internal Medicine Medical Oncology
DX: Z01.812 Encounter for preprocedural laboratory examination (principal)
CPT/HCPCS: 36415; 82565; 84520

== ENCOUNTER → 2022-04-29 08:16 | Outpatient (CLI) | payer BC, SELFPAY ==
--- NOTE | 2022-04-29 08:18 | MR_ITS ---
FINAL REPORT CLINICAL HISTORY: ABNORMAL CT SCAN OF ABDOMEN COMPARISON: 04/13/2022 and 01/01/2021 FINDINGS: Multiplanar MR imaging of the abdomen was performed without and with contrast. Motion artifact is identified on many of the images. On the arterial phase images, there are areas of enhancement seen in the posterior left hepatic lobe and in the anterior segment of the right hepatic lobe. Findings are stable from prior CT and MRI and are felt to represent vascular perfusion variants. No new mass or abnormal contrast enhancement is identified. There is no evidence of biliary ductal dilatation. The gallbladder has an unremarkable appearance. There is a cystic mass in the head and uncinate process of the pancreas measuring 24 mm, may represent intraductal papillary mucinous neoplasm or possibly pseudocyst. No new mass or abnormal contrast enhancement is identified. No abnormal fluid collection is seen. IMPRESSION: Stable areas of enhancement in the right and left hepatic lobe are felt to represent vascular perfusion variants. Cystic mass in the head and uncinate process of the pancreas, may represent intraductal papillary mucinous neoplasm or possibly pseudocyst. Reviewed, Interpreted and Dictated by Davis Mitchell III, MD Transcribed by Cady Becerra Authenticated and [facility]
== END ==
PROVIDERS: PCP Internal Medicine Adolescent Medicine; Visit Provider Internal Medicine Medical Oncology
DX: R93.89 Abnormal findings on diagnostic imaging of other specified body structures (principal)
CPT/HCPCS: 74183; A9576

== ENCOUNTER → 2022-05-20 10:51 | Outpatient (CLI) | payer BC, SELFPAY ==
--- NOTE | 2022-05-20 10:57 | MR_ITS ---
FINAL REPORT CLINICAL HISTORY: .left sided neck pain. left shoulder and arm pain. numbness in fingers of left hand. headache. COMPARISON: July 2021 FINDINGS: Multiplanar MR imaging of the cervical spine was performed without contrast. On the sagittal T2-weighted images, disc degeneration is seen throughout. There are endplate changes at multiple levels. There are several hemangiomas. There is no evidence of fracture. The vertebral alignment is normal. The cervical spinal cord has an unremarkable appearance without evidence of mass, edema or syrinx. The cervicomedullary junction is normal. C2-3: There are small uncovertebral osteophytes. C3-4: There are uncovertebral osteophytes. There is a small central disc protrusion. There is moderate left neural foraminal narrowing. C4-5: There is an annular bulge with a small central disc protrusion. There is moderate left neural foraminal narrowing. C5-6: There is a disc osteophyte complex. There is severe bilateral neural foraminal narrowing. There is mild central canal stenosis with an AP thecal sac diameter of 9 mm. C6-7: There is a disc osteophyte complex. There is severe bilateral neural foraminal narrowing. There is mild central canal stenosis with an AP thecal sac diameter of 9 mm. C7-T1: There is an annular bulge with mild bilateral neural foraminal narrowing. IMPRESSION: Multilevel degenerative disc disease with areas of neural foraminal narrowing and central canal stenosis. Central disc protrusions at C3-C4 and C4-C5. Reviewed, Interpreted and Dictated by Davis Mitchell III, MD Transcribed by Andrew Anderson Authenticated and [facility]
== END ==
PROVIDERS: PCP Internal Medicine Adolescent Medicine; Visit Provider Neurological Surgery
DX: M50.122 Cervical disc disorder at C5-C6 level with radiculopathy (principal)
CPT/HCPCS: 72141; 76376

== ENCOUNTER → 2022-05-23 14:52 | Outpatient (CLI) | payer BC, SELFPAY ==
--- NOTE | 2022-05-23 14:54 | CT_ITS ---
FINAL REPORT TECHNIQUE: Axial imaging of the chest was obtained without contrast. Reformatted images were also obtained and reviewed.This study was performed with techniques to keep radiation doses as low as reasonably achievable, (ALARA). Individualized dose reduction technique using automated exposure control or adjustment of mA and/or kV according to the patient's size were employed. CLINICAL HISTORY: H/O LUNG CANCER COMPARISON: 11/20/2021 FINDINGS: There is no axillary adenopathy. There is no hilar or mediastinal mass or adenopathy. Heart size is normal. There is no pericardial or pleural effusion. There is moderate to severe emphysema and mild scarring. Stable left perihilar opacities are seen consistent with post treatment fibrosis. There is a 3 mm, right upper lobe nodule on image number 31 which is stable. There is a right lung base calcified granuloma. There is no new mass or nodule. Limited imaging of the upper abdomen demonstrates postoperative change of cholecystectomy. IMPRESSION: Stable, left perihilar opacities consistent with post treatment fibrosis. Stable, 3 mm right upper lobe nodule. Reviewed, Interpreted and Dictated by Davis Mitchell III, MD Transcribed by Coby Longoria Authenticated and [facility]
== END ==
PROVIDERS: PCP Internal Medicine Adolescent Medicine; Visit Provider Internal Medicine Medical Oncology
DX: R06.02 Shortness of breath (principal); C34.90 Malignant neoplasm of unspecified part of unspecified bronchus or lung
CPT/HCPCS: 71250

== ENCOUNTER 2022-06-03 13:29 | Emergency (ER) | payer BC, SELFPAY ==
[2022-06-03] VITALS (11 sets, daily range): BP systolic 106–131; BP diastolic 66–80; PULSE 74–88; RESP 13–18; TEMP 36.7; O2SAT 93–100; BMI 36.6
--- NOTE | 2022-06-03 13:29 | ECG_ITS ---
APPROVED REPORT Exam: Resting ECG HR:76 bpm ECG Measurements Heart Rate 76 AXES UT 132 P 26 QRSd 96 QRS 42 QT 398 T 20 QTc 428 Conclusion SINUS RHYTHM LOW QRS VOLTAGE IN PRECORDIAL LEADS [QRS DEFLECTION < 1.0 mV IN CHEST LEADS] BORDERLINE ECG UNCONFIRMED REPORT Electronically signed by : Philip Khan MD 06/03/2022 20:08:40
--- NOTE | 2022-06-03 13:39 | XR_ITS ---
FINAL REPORT CLINICAL HISTORY: CHEST PAIN COMPARISON: June 2021 FINDINGS: The heart size is normal. The mediastinum is within normal limits. There is mild scarring in the left lung. There is no acute cardiopulmonary process. There is no pleural effusion. There is no pneumothorax. The bony thorax is intact. IMPRESSION: No acute cardiopulmonary process. Reviewed, Interpreted and Dictated by Davis Mitchell III, MD Transcribed by Andrew Anderson Authenticated and [facility]
[2022-06-03 13:55] LABS: Chloride 102 mmol/L (98-107); Potassium 4.2 mmoL/L (3.5-5.1); Sodium 137 mmol/L (136-145)
[2022-06-03 13:58] LABS: Anion Gap 12.2 mEq/L (5-15); Blood Urea Nitrogen 31 mg/dl (9-20); Calcium 10.3 mg/dl (8.4-10.2); Carbon Dioxide 27 mmol/L (22.0-30.0); Creatinine Clearance Estimated 66 mL/min (50-200); Estimated Glomerular Filt Rate 41 ml/min (>60); GFR (African American) 50 ML/MIN (>60); Glucose 130 mg/dl (74-100)
[2022-06-03 14:06] LABS: Basophils % 0.7 % (0.1-2.0); Eosinophils # 0.2 K/mm3 (0.0-0.4); Hemoglobin 12.5 g/dL (14.1-18.0); Lymphocytes % 24.1 % (10-50); Mean Corpuscular HGB Conc 32.8 g/dL (31.8-35.4); Mean Corpuscular Hemoglobin 32.3 pg (27.0-31.2); Mean Corpuscular Volume 98.6 fl (80-94); Mean Platelet Volume 7.5 fl (7.4-10.4); Monocytes # 0.5 K/mm3 (0.1-1.0); Monocytes % 11.4 % (1.7-9.3); Neutrophils # 2.4 K/mm3 (1.8-7.8); Neutrophils % 59.8 % (37.0-80.0); Platelet Count 255 K/mm3 (142-424); Red Blood Count 3.86 M/mm3 (4.60-6.20); Red Cell Distribution Width 13.3 % (11.5-17.5)
--- NOTE | 2022-06-03 14:12 | PC.NURSE ---
RADIOLOGY AT BEDSIDE
[2022-06-03 14:17] LABS: Troponin I < 0.01 ng/ml (0.00-0.034)
--- NOTE | 2022-06-03 14:25 | HMH.EDGENADL ---
Discharge Plan Disposition Patient Disposition: Home, Self-Care Condition: Good Chief Complaint: Chest Pain Prescriptions Prescriptions: No Action albuterol sulfate 90 mcg/actuation HFA aerosol inhaler 2 inh IH QID PRN (Reason: shortness of breath or wheezing) 90 Days Qty: 8.5 2RF clonazepam 0.5 mg tablet 0.5 mg PO BID gabapentin 800 mg tablet 800 mg PO TID oxycodone 10 mg tablet 10 mg PO TIDP PRN (Reason: PAIN) (DME) OneTouch Ultra Test Strip See Rx Instructions .ROUTE .MEDSUPPLY Qty: 10 Rx Instructions: As directed (DME) pen needle, diabetic [BD Ultra-Fine Short Pen Needle] 31 gauge x 5/16 needle See Rx Instructions .ROUTE .MEDSUPPLY Qty: 1200 Rx Instructions: As directed Januvia 100 mg tablet 100 mg PO DAILY glipizide 10 mg tablet 10 mg PO DAILY spironolactone 50 mg tablet See Rx Instructions .ROUTE .COMPLEX Qty: 30 5RF Dose Instruction: TAKE ONE TABLET BY MOUTH ONCE A DAY Rx Instructions: TAKE ONE TABLET BY MOUTH ONCE A DAY ranolazine 1,000 mg tablet extended release 12 hr See Rx Instructions .ROUTE .COMPLEX Qty: 60 2RF Dose Instruction: TAKE ONE TABLET BY MOUTH 2 TIMES A DAY Rx Instructions: TAKE ONE TABLET BY MOUTH 2 TIMES A DAY Spiriva with HandiHaler 18 mcg capsule, w/inhalation device 1 cap inhalation DAILY 90 Days Qty: 90 3RF Rx Instructions: puncture 1 cap using device; one dose = 2 inhalations famotidine 20 mg tablet See Rx Instructions .ROUTE .COMPLEX Qty: 30 2RF Dose Instruction: TAKE ONE TABLET BY MOUTH ONCE A DAY Rx Instructions: TAKE ONE TABLET BY MOUTH ONCE A DAY clopidogrel 75 mg tablet See Rx Instructions .ROUTE .COMPLEX Qty: 30 4RF Dose Instruction: TAKE ONE TABLET BY MOUTH ONCE A DAY Rx Instructions: TAKE ONE TABLET BY MOUTH ONCE A DAY lisinopril 5 mg tablet See Rx Instructions .ROUTE .COMPLEX Qty: 30 4RF Dose Instruction: TAKE ONE TABLET BY MOUTH ONCE A DAY FOR HYPERTENSION Rx Instructions: TAKE ONE TABLET BY MOUTH ONCE A DAY FOR HYPERTENSION isosorbide mononitrate 30 mg tablet extended release 24 hr See Rx Instructions .ROUTE .COMPLEX Qty: 90 3RF Dose Instruction: TAKE ONE TABLET BY MOUTH ONCE A DAY Rx Instructions: TAKE ONE TABLET BY MOUTH ONCE A DAY metoprolol tartrate 25 mg tablet See Rx Instructions .ROUTE .COMPLEX Qty: 60 0RF Dose Instruction: TAKE ONE TABLET BY MOUTH 2 TIMES A DAY FOR HYPERTENSION Rx Instructions: TAKE ONE TABLET BY MOUTH 2 TIMES A DAY FOR HYPERTENSION torsemide 100 mg tablet 50 mg PO DAILY Qty: 90 3RF Rx Instructions: TAKE 1/2 TABLET BY MOUTH ONCE A DAY ergocalciferol (vitamin D2) 1,250 MCG capsule 50,000 mcg PO WEEKLY cyclobenzaprine 10 mg tablet 10 mg PO TID PRN (Reason: muscle spasm) Qty: 10 0RF prednisone 20 mg tablet 60 mg PO DAILY Qty: 15 0RF cefdinir 300 mg capsule 300 mg PO BID 5 Days Qty: 10 0RF insulin glargine 100 UNIT/ML insulin pen 15 units SQ HS empagliflozin 25 MG tablet 25 mg PO DAILY atorvastatin 20 MG tablet 20 mg PO DAILY methocarbamol 500 MG tablet 500 mg PO BID PRN (Reason: Moderate To Severe Pain) Qty: 20 0RF Referrals Follow up/Referrals: Philip Khan MD [Primary Care Provider] - See instructions Activity Restrictions/Add. Instructions Additional Instructions/Restrictions: Additional instructions for CHEST PAIN: See your physician as soon as possible for further evaluation. Return immediately if worsening chest pain, vomiting, shortness of breath, fever, coughing of blood. Clinical Impressions Clinical Impression: Atypical chest pain Instructions Patient Instructions: DI for Atypical Chest Pain Discharge ED Provider: Young Renee Adult HPI General Chief complaint: Chest Pain Stated complaint: chest pain Time Seen by Provider: 06/03/
--- NOTE | 2022-06-03 16:37 | PC.NURSE ---
DR. HAMM AT BEDSIDE
--- NOTE | 2022-06-03 17:01 | PC.NURSE ---
DR. HAMM AT BEDSIDE
[2022-06-03 17:25] LABS: Troponin I < 0.01 ng/ml (0.00-0.034)
[2022-06-03 18:00] LABS: Benzodiazepines Screen,Urine Negative ng/ml (<200)
[2022-06-03 18:01] LABS: Amphetamine/Metha Screen,Urine Negative ng/ml (<1000); Barbiturates Screen,Urine Negative ng/ml (<200)
[2022-06-03 18:02] LABS: Cannabinoid Screen,Urine Negative ng/ml (<50)
[2022-06-03 18:03] LABS: Cocaine Screen,Urine Negative ng/ml (<300); Methadone Screen,Urine Negative ng/ml (<300)
[2022-06-03 18:04] LABS: Opiate Screen,Urine Negative ng/ml (<300)
[2022-06-03 18:05] LABS: Phencyclidine Screen,Urine Negative ng/ml (<25)
--- NOTE | 2022-06-03 18:29 | PC.NURSE ---
DR. HAMM AT BEDSIDE TO UPDATE PT ON POC
== END 2022-06-03 18:40 | disposition home or self-care (01) ==
PROVIDERS: Emergency Provider Emergency Medicine; PCP Internal Medicine Adolescent Medicine
DX: R07.89 Other chest pain (principal); M79.602 Pain in left arm; R06.02 Shortness of breath; R60.0 Localized edema; I10 Essential (primary) hypertension; I25.2 Old myocardial infarction; E78.5 Hyperlipidemia, unspecified; E11.9 Type 2 diabetes mellitus without complications; J43.9 Emphysema, unspecified; G47.33 Obstructive sleep apnea (adult) (pediatric); Z79.01 Long term (current) use of anticoagulants; Z79.4 Long term (current) use of insulin; Z79.51 Long term (current) use of inhaled steroids; Z79.52 Long term (current) use of systemic steroids; Z79.899 Other long term (current) drug therapy; Z88.6 Allergy status to analgesic agent; Z87.891 Personal history of nicotine dependence; Z82.49 Family history of ischemic heart disease and other diseases of the circulatory system
CPT/HCPCS: 36415; 71045; 80048; 80305; 84484; 85025; 93005; 99284

== ENCOUNTER 2022-06-08 08:23 | Emergency (ER) | payer BC, SELFPAY ==
[2022-06-08] VITALS (8 sets, daily range): BP systolic 101–131; BP diastolic 58–80; PULSE 80–98; RESP 17–18; TEMP 37; O2SAT 96–98; BMI 36.6
--- NOTE | 2022-06-08 09:04 | HMH.EDGENADL ---
Discharge Plan Disposition Patient Disposition: Home, Self-Care Condition: Good Prescriptions Prescriptions: No Action albuterol sulfate 90 mcg/actuation HFA aerosol inhaler 2 inh IH QID PRN (Reason: shortness of breath or wheezing) 90 Days Qty: 8.5 2RF clonazepam 0.5 mg tablet 0.5 mg PO BID gabapentin 800 mg tablet 800 mg PO TID oxycodone 10 mg tablet 10 mg PO TIDP PRN (Reason: PAIN) (DME) OneTouch Ultra Test Strip See Rx Instructions .ROUTE .MEDSUPPLY Qty: 10 Rx Instructions: As directed (DME) pen needle, diabetic [BD Ultra-Fine Short Pen Needle] 31 gauge x 5/16 needle See Rx Instructions .ROUTE .MEDSUPPLY Qty: 1200 Rx Instructions: As directed Januvia 100 mg tablet 100 mg PO DAILY glipizide 10 mg tablet 10 mg PO DAILY spironolactone 50 mg tablet See Rx Instructions .ROUTE .COMPLEX Qty: 30 5RF Dose Instruction: TAKE ONE TABLET BY MOUTH ONCE A DAY Rx Instructions: TAKE ONE TABLET BY MOUTH ONCE A DAY ranolazine 1,000 mg tablet extended release 12 hr See Rx Instructions .ROUTE .COMPLEX Qty: 60 2RF Dose Instruction: TAKE ONE TABLET BY MOUTH 2 TIMES A DAY Rx Instructions: TAKE ONE TABLET BY MOUTH 2 TIMES A DAY Spiriva with HandiHaler 18 mcg capsule, w/inhalation device 1 cap inhalation DAILY 90 Days Qty: 90 3RF Rx Instructions: puncture 1 cap using device; one dose = 2 inhalations famotidine 20 mg tablet See Rx Instructions .ROUTE .COMPLEX Qty: 30 2RF Dose Instruction: TAKE ONE TABLET BY MOUTH ONCE A DAY Rx Instructions: TAKE ONE TABLET BY MOUTH ONCE A DAY clopidogrel 75 mg tablet See Rx Instructions .ROUTE .COMPLEX Qty: 30 4RF Dose Instruction: TAKE ONE TABLET BY MOUTH ONCE A DAY Rx Instructions: TAKE ONE TABLET BY MOUTH ONCE A DAY lisinopril 5 mg tablet See Rx Instructions .ROUTE .COMPLEX Qty: 30 4RF Dose Instruction: TAKE ONE TABLET BY MOUTH ONCE A DAY FOR HYPERTENSION Rx Instructions: TAKE ONE TABLET BY MOUTH ONCE A DAY FOR HYPERTENSION isosorbide mononitrate 30 mg tablet extended release 24 hr See Rx Instructions .ROUTE .COMPLEX Qty: 90 3RF Dose Instruction: TAKE ONE TABLET BY MOUTH ONCE A DAY Rx Instructions: TAKE ONE TABLET BY MOUTH ONCE A DAY metoprolol tartrate 25 mg tablet See Rx Instructions .ROUTE .COMPLEX Qty: 60 0RF Dose Instruction: TAKE ONE TABLET BY MOUTH 2 TIMES A DAY FOR HYPERTENSION Rx Instructions: TAKE ONE TABLET BY MOUTH 2 TIMES A DAY FOR HYPERTENSION torsemide 100 mg tablet 50 mg PO DAILY Qty: 90 3RF Rx Instructions: TAKE 1/2 TABLET BY MOUTH ONCE A DAY ergocalciferol (vitamin D2) 1,250 MCG capsule 50,000 mcg PO WEEKLY cyclobenzaprine 10 mg tablet 10 mg PO TID PRN (Reason: muscle spasm) Qty: 10 0RF prednisone 20 mg tablet 60 mg PO DAILY Qty: 15 0RF cefdinir 300 mg capsule 300 mg PO BID 5 Days Qty: 10 0RF insulin glargine 100 UNIT/ML insulin pen 15 units SQ HS empagliflozin 25 MG tablet 25 mg PO DAILY atorvastatin 20 MG tablet 20 mg PO DAILY methocarbamol 500 MG tablet 500 mg PO BID PRN (Reason: Moderate To Severe Pain) Qty: 20 0RF Referrals Follow up/Referrals: Philip Khan MD [Primary Care Provider] - See instructions Activity Restrictions/Add. Instructions Additional Instructions/Restrictions: Continue your current pain medication Call your primary care provider tomorrow to arrange follow-up. Clinical Impressions Clinical Impression: Periscapular pain, Cough Discharge ED Provider: Young Renee Adult [facility] General Chief complaint: PAIN Stated complaint: No accident,right side back pain Time Seen by Provider: 06/08/22 08:55 Mode of Arrival: Ambulatory Source of Information: Patient Limitations: No Limitations Description of Symptoms (Recalled from ER Triage Doc. by RN): c/o right shoulder
--- NOTE | 2022-06-08 09:08 | XR_ITS ---
PROCEDURE INFORMATION: Exam: XR Chest Exam date and time: 06/08/2022 9:09 AM Age: 61 years old Clinical indication: Patient HX: Cough, back pain; Additional info: R chest pain TECHNIQUE: Imaging protocol: Radiologic exam of the chest. Views: 2 views. COMPARISON: CR XR CHEST PORTABLE 06/03/2022 2:22 PM FINDINGS: Lungs: Hyperlucent changes are demonstrated. Increase in the lung volumes is demonstrated. Focal bullous changes present in the left perihilar region. Parenchymal scarring is again present in the left lower lobe. Pleural spaces: Unremarkable. No pleural effusion. No pneumothorax. Heart/Mediastinum: Unremarkable. No cardiomegaly. Bones/joints: Unremarkable. IMPRESSION: 1. No evidence of acute cardiopulmonary disease. 2. Chronic obstructive pulmonary disease. Findings stable since 06/03/2022.
[2022-06-08 09:23] LABS: Coronavirus 19, PCR Not Detected (NotDetected); Influenza A, PCR Not Detected (NotDetected); Influenza B, PCR Not Detected (NotDetected)
[2022-06-08 09:25] LABS: Basophils % 0.5 % (0.1-2.0); Eosinophils # 0.2 K/mm3 (0.0-0.4); Eosinophils % 4.1 % (0.1-12.0); Hematocrit 43.6 % (42.0-52.0); Hemoglobin 14.1 g/dL (14.1-18.0); Lymphocytes # 0.9 K/mm3 (0.7-4.5); Lymphocytes % 16.1 % (10-50); Mean Corpuscular HGB Conc 32.2 g/dL (31.8-35.4); Mean Corpuscular Hemoglobin 32.1 pg (27.0-31.2); Mean Corpuscular Volume 99.8 fl (80-94); Mean Platelet Volume 7.6 fl (7.4-10.4); Monocytes # 0.4 K/mm3 (0.1-1.0); Monocytes % 6.3 % (1.7-9.3); Neutrophils # 4.2 K/mm3 (1.8-7.8); Platelet Count 281 K/mm3 (142-424); Red Blood Count 4.37 M/mm3 (4.60-6.20); Red Cell Distribution Width 13.2 % (11.5-17.5); White Blood Count 5.8 K/mm3 (4.8-10.8)
[2022-06-08 09:28] LABS: Chloride 106 mmol/L (98-107)
[2022-06-08 09:29] LABS: Potassium 4.1 mmoL/L (3.5-5.1); Sodium 140 mmol/L (136-145)
--- NOTE | 2022-06-08 09:29 | ECG_ITS ---
APPROVED REPORT Exam: Resting ECG HR:85 bpm ECG Measurements Heart Rate 85 AXES MA 143 P 33 QRSd 88 QRS 46 QT 381 T 31 QTc 423 Conclusion SINUS RHYTHM NORMAL ECG UNCONFIRMED REPORT Electronically signed by : Philip Khan MD 06/08/2022 22:21:10
[2022-06-08 09:31] LABS: Alanine Aminotransferase 36 U/L (12-78); Alkaline Phosphatase 77 U/L (38-126); Anion Gap 17.1 mEq/L (5-15); Aspartate Amino Transferase 29 U/L (17-59); Bilirubin,Total 1.2 mg/dl (0.2-1.3); Blood Urea Nitrogen 22 mg/dl (9-20); Carbon Dioxide 21 mmol/L (22.0-30.0); Creatinine Clearance Estimated 80 mL/min (50-200); Estimated Glomerular Filt Rate 52 ml/min (>60); GFR (African American) 63 ML/MIN (>60); Lipase 26 U/L (23-300)
[2022-06-08 09:32] LABS: Albumin Level 4.6 g/dl (3.5-5.0); Albumin/Globulin Ratio 1.6 (1.1-1.8); Calcium 9.6 mg/dl (8.4-10.2); Globulin 2.8 g/dL (1.3-3.2); Glucose 110 mg/dl (74-100); Total Protein,Serum 7.4 g/dl (6.3-8.2)
[2022-06-08 09:44] LABS: Troponin I < 0.01 ng/ml (0.00-0.034)
--- NOTE | 2022-06-08 09:44 | CT_ITS ---
PROCEDURE INFORMATION: Exam: CTA Chest With Contrast Exam date and time: 06/08/2022 10:02 AM Age: 61 years old Clinical indication: Radiating and right-sided; Patient HX: Right sided chest pain radiating to back; Additional info: R scapular and chest pain TECHNIQUE: Imaging protocol: Computed tomographic angiography of the chest with contrast. 3D rendering (Not supervised by radiologist): MIP and/or 3D reconstructed images were created by the technologist. Radiation optimization: All CT scans at this facility use at least one of these dose optimization techniques: automated exposure control; mA and/or kV adjustment per patient size (includes targeted exams where dose is matched to clinical indication); or iterative reconstruction. Contrast material: ISOVUE 370; Contrast volume: 70 ml; Contrast route: INTRAVENOUS (IV); COMPARISON: CT ANGIO CHEST PE PROTOCOL 08/02/2021 10:42 AM FINDINGS: Pulmonary arteries: There is suboptimal opacification of pulmonary arteries due to contrast bolus timing. No large or central pulmonary embolus. Evaluation of the peripheral pulmonary arteries is limited. Aorta: Regions of atherosclerotic vascular calcification involving the aortic arch. Lungs: Centrilobular emphysema. Large bullous changes anteriorly in the left upper lobe as well as at both lung apices. Left lower lobe region of parenchymal scarring and atelectasis. Calcified granulomas right lung base. Pleural spaces: Unremarkable. No pneumothorax. No pleural effusion. Heart: Unremarkable. No cardiomegaly. No pericardial effusion. Coronary arteries: Trace coronary artery calcification. Lymph nodes: Calcified perihilar lymph nodes. Bones/joints: Unremarkable. No acute fracture. Soft tissues: Unremarkable. IMPRESSION: 1. No large or central pulmonary embolus. Evaluation of the peripheral pulmonary arteries is limited. 2. Chronic obstructive pulmonary disease. 3. Evidence of prior granulomatous disease.
--- NOTE | 2022-06-08 10:35 | PC.NURSE ---
Pt states that the pain medicine given did not help his back pain. MD knapp
== END 2022-06-08 11:48 | disposition home or self-care (01) ==
PROVIDERS: Emergency Provider Emergency Medicine; PCP Internal Medicine Adolescent Medicine
DX: R05.9 Cough, unspecified (principal); M25.511 Pain in right shoulder; R07.89 Other chest pain; I70.213 Atherosclerosis of native arteries of extremities with intermittent claudication, bilateral legs; E11.9 Type 2 diabetes mellitus without complications; J43.9 Emphysema, unspecified; Z87.891 Personal history of nicotine dependence; Z85.118 Personal history of other malignant neoplasm of bronchus and lung; Z20.822 Contact with and (suspected) exposure to COVID-19
CPT/HCPCS: 71046; 71275; 80053; 83690; 84484; 85025; 93005; 96374; 96375; 99285; C9803; J2405; Q9967; U0003; U0005

== ENCOUNTER → 2022-06-09 13:48 | Outpatient (CLI) | payer BC, SELFPAY | PROVIDERS: PCP Internal Medicine Adolescent Medicine; Visit Provider Internal Medicine Pulmonary Disease | DX: R06.00 Dyspnea, unspecified (principal) | CPT/HCPCS: 94762 ==

== ENCOUNTER → 2022-06-13 06:39 | Outpatient (CLI) | payer BC, SELFPAY ==
--- NOTE | 2022-06-13 | CA_ITS ---
APPROVED REPORT Exam: Pharmacologic Technologist: Stephanie Coombs, Ht: 5 ft 5 in Wt: 221 lbs BSA: 2.06 m2 HR: 64 bpm BP: 132/81 mmHg Medical History Medications: Lisinopril,,,,, Gabapentin,,,,, Metoprolol Tartrate,,,,, Atorvastatin,,,,, Glipizide,,,,, PERCOCET,,,,, ClonAZEPAM,,,,, Albuterol,,,,, CloPIdogrel,,,,, Famotidine,,,,, Prednisone,,,,, Cyclobenzaprine,,,,, Stress Test Details Test: LEXISCAN Reason for pharmacologic stress test: physical limitation. HR Resting HR: 63 bpm Max Heart Rate (APMHR): 161.301919 bpm Max HR Achieved: 95 bpm Target HR (85% APMHR): 136.120144 bpm % of APMHR: 59.01 Recovery HR: 82 bpm BP Resting BP: 132/81 mmHg Max BP: 144/84 mmHg Recovery BP: 144.0/84.0 mmHg ECG Clinical Exercise duration: 04:00 min Highest Stage Achieved: Exercise capacity: 1.0 METs Stress ECG Conclusion Symptoms: SOA, Chest Pain, Nauseated. Arrhythmias/Ectopy: None ST-T Changes: <1.5mm ST Segment Test Summary REST . . . . . . . Resting REST 17:24 . . 63 . 132/ 81 . . Stage 1 01:00 . . 94 . . . . Stage 2 01:00 . . 89 . 143/ 78 . . Stage 3 01:00 . . 88 . 133/ 81 . . Stage 4 01:00 . . 87 . 136/ 80 . Stop exercise at 04:00 RECOVERY 01:00 . . 85 . . . . RECOVERY 02:00 . . 82 . 136/ 79 . . RECOVERY 02:54 . . 84 . 144/ 84 . . Electronically signed by : James Raza MD 06/13/2022 13:33:26
--- NOTE | 2022-06-13 06:46 | NM_ITS ---
APPROVED REPORT Exam: Nuclear Stress Test Indication: CAD, H/O IN, HTN, DM, HYPERLIPIDEMIA, FM HX, C.P., SOB, PALPITATIONS, FATIGUE Patient Location: Outpatient Stress Tech: [facility] Tech:Lolita Yang, ARRT RT (R)(N)(M) Ht: 5 ft 5 in Wt: 218 lbs HR: 64 bpm BP: 132/81 mmHg BSA: 2.05 m2 TID: 1.22 BMI: 36.2 History: CAD, H/O IN, HTN, DM, HYPERLIPIDEMIA, FM HX, C.P., SOB, PALPITATIONS, FATIGUE Procedure: Patient received a 0.4 mg of intravenous Lexiscan, resting heart rate 64 bpm, resting blood pressure 132/81 mmHg, with Lexiscan maximum heart rate achived was 89 bpm which is Less than 85 % of the maximum predicted heart rate and blood pressure was 143/86 mmHg. PT C/O C.P. WITH LEXISCAN Electrocardiogram Resting electrocardiogram shows sinus rhythm, with Lexiscan there is less than 1.[address] segment depression noted from the baseline EKG. The EKG portion of the Lexiscan is nondiagnostic. Cardiac Stress and Resting SPECT Images: Cardiac Stress and Resting SPECT images were obtained using technetium 99m Myoview 30.6 mCi stress and 10.11 mCi at rest. Gated SPECT analysis of segmental wall motion and calculation of the ejection fraction also done. Prone images were also obtained. Cardiac stress and rest respectively show reversible ischemia involving the apex, anteroseptal and anterolateral wall, computer derived ejection fraction is 55% with no regional wall motion abnormality, right ventricle is normal size and contractility. Conclusion: 1. The EKG portion of the Lexiscan is nondiagnostic. 2. Scintigraphic evidence of reversible ischemia involving the apex, anteroseptal and anterolateral wall, computer derived ejection fraction is 55% with no regional wall motion abnormality, right ventricle is normal size and contractility. 3. Abnormal Lexiscan Myoview study. Electronically signed by : James Raza MD 06/13/2022 13:36:12
== END ==
PROVIDERS: PCP Internal Medicine Adolescent Medicine; Visit Provider Physician Assistant
DX: I20.8 Other forms of angina pectoris (principal); R06.09 Other forms of dyspnea
CPT/HCPCS: 78452; 93017; A9502; J2785

== ENCOUNTER → 2022-06-17 14:33 | Outpatient (CLI) | payer BC, SELFPAY ==
--- NOTE | 2022-06-17 14:37 | XR_ITS ---
FINAL REPORT TECHNIQUE: Chest PA & Lateral CLINICAL HISTORY: chest pain..former smoker..lung ca 4 years ago COMPARISON: Chest CT June 08, 2022 chest x-ray May 2022 FINDINGS: 2 views of the chest were performed. The heart size is normal. The mediastinum is within normal limits. There is scarring in the medial left thorax consistent with post treatment change. The lungs are otherwise clear. There are no pleural effusions. There is no pneumothorax. The bony thorax appears intact. IMPRESSION: No acute cardiopulmonary process. Reviewed, Interpreted and Dictated by Davis Mitchell III, MD Transcribed by Andrew Anderson Authenticated and [facility]
== END ==
PROVIDERS: PCP Internal Medicine Adolescent Medicine; Visit Provider Physician Assistant
DX: R06.00 Dyspnea, unspecified (principal); R06.02 Shortness of breath; R07.89 Other chest pain; I20.8 Other forms of angina pectoris; I10 Essential (primary) hypertension; E78.2 Mixed hyperlipidemia; J44.9 Chronic obstructive pulmonary disease, unspecified; R05.9 Cough, unspecified; R94.30 Abnormal result of cardiovascular function study, unspecified; E66.9 Obesity, unspecified; F17.200 Nicotine dependence, unspecified, uncomplicated; Z68.36 Body mass index [BMI] 36.0-36.9, adult; Z85.118 Personal history of other malignant neoplasm of bronchus and lung
CPT/HCPCS: 71046

== ENCOUNTER 2022-06-19 08:30 | Day surgery (SDC) | payer BC, SELFPAY ==
[2022-06-19] VITALS (12 sets, daily range): BP systolic 116–137; BP diastolic 72–88; PULSE 53–76; RESP 17–19; O2SAT 95–100; BMI 38.7
--- NOTE | 2022-06-19 07:03 | IR_ITS ---
APPROVED REPORT Patient Location: Outpatient Slag Expander: CLAIRE Fooet RT (R) PROCEDURES Left heart catheterization Left ventriculogram Selective coronary angiogram INDICATION Known coronary artery disease, Abnormal Myoview, Angina pectoris Informed consent was obtained prior to the procedure. COMPLICATIONS None Estimated Blood Loss: Less than 10 ML TECHNIQUE One percent lidocaine used to anesthetize the right anterior aspect of the wrist. The right radial artery was accessed via the Seldinger technique. A 6 Vietnamese sheath was placed in the right radial artery. 2.5 mg of verapamil, 800 mcg of nitroglycerin, 1mg Lidocaine and 5000 U Heparin were given through the arterial sheath. The papa catheter was also used to perform left heart catheterization, left ventriculogram and selective coronary angiogram. At the end of the procedure the sheath was removed good hemostasis was achieved using Traclet band, patient was transferred to the postop holding area in stable condition. ANGIOGRAPHIC RESULTS The left main artery Normal The left anterior descending artery Has proximal mid vessel 10% luminal regularities The circumflex artery Has proximal 10 to 20% stenoses The right coronary artery Dominant and has mild diffuse 10 to 20% stenoses The FONSECA ventriculogram reveals Preserved 55% The left ventricular end-diastolic pressure 15 to 20 mmHg IMPRESSION Mild nonflow limiting coronary disease Preserved ejection fraction Borderline elevated LVEDP PLAN 1. Medical management 2. . Treatment for endothelial dysfunction Electronically signed by : Lonny Gonzalez MD 06/19/2022 14:41:28
== END 2022-06-19 15:00 | disposition home or self-care (01) ==
PROVIDERS: PCP Internal Medicine Adolescent Medicine; Visit Provider Internal Medicine
DX: I25.118 Atherosclerotic heart disease of native coronary artery with other forms of angina pectoris (principal); E11.9 Type 2 diabetes mellitus without complications; Z79.4 Long term (current) use of insulin; F17.210 Nicotine dependence, cigarettes, uncomplicated; Z79.899 Other long term (current) drug therapy; I50.32 Chronic diastolic (congestive) heart failure; I11.0 Hypertensive heart disease with heart failure; R94.39 Abnormal result of other cardiovascular function study
CPT/HCPCS: 93458; 99152; C1725; C1760; C1769; J1644; Q9967

== ENCOUNTER 2022-06-28 18:41 | Emergency (ER) | payer BC, SELFPAY ==
[2022-06-28 18:42] VITALS: BP 137/79; PULSE 75; RESP 16; TEMP 36.6; O2SAT 97; BMI 37.4
--- NOTE | 2022-06-28 18:47 | PC.NURSE ---
checked on pt told him we had a few emergencies and we would get him back as soon as we could.
--- NOTE | 2022-06-28 19:12 | XR_ITS ---
PROCEDURE INFORMATION: Exam: XR Lumbosacral Spine Exam date and time: 06/28/2022 7:10 PM Age: 61 years old Clinical indication: Low back pain; Additional info: Pain left side and left leg TECHNIQUE: Imaging protocol: Radiologic exam of the lumbosacral spine. Views: 2 or 3 views. COMPARISON: CT LUMBAR SPINE WO CON 01/03/2022 10:02 PM FINDINGS: Bones/joints: Degenerative changes. No acute fracture. Normal alignment. Soft tissues: Vascular calcifications. IMPRESSION: No acute findings.
[2022-06-28 19:30] VITALS: BP 119/66; PULSE 75; O2SAT 97
[2022-06-28 20:00] VITALS: BP 109/62; PULSE 71; O2SAT 93
[2022-06-28 20:30] VITALS: BP 120/67; PULSE 71; O2SAT 94
--- NOTE | 2022-06-28 20:55 | HMH.EDBACK ---
Discharge Plan Disposition Patient Disposition: Left Against Medical Advice Chief Complaint: Back Pain/Injury Prescriptions Prescriptions: No Action chlorzoxazone 500 mg tablet 500 mg PO TID oxycodone-acetaminophen 10-325 mg tablet 1 tab PO TID albuterol sulfate 90 mcg/actuation HFA aerosol inhaler 2 inh IH QID PRN (Reason: shortness of breath or wheezing) 90 Days Qty: 8.5 2RF clonazepam 0.5 mg tablet 0.5 mg PO BID gabapentin 800 mg tablet 800 mg PO TID (DME) OneTouch Ultra Test Strip See Rx Instructions .ROUTE .MEDSUPPLY Qty: 10 Rx Instructions: As directed (DME) pen needle, diabetic [BD Ultra-Fine Short Pen Needle] 31 gauge x 5/16 needle See Rx Instructions .ROUTE .MEDSUPPLY Qty: 1200 Rx Instructions: As directed Januvia 100 mg tablet 100 mg PO DAILY glipizide 10 mg tablet 10 mg PO DAILY benzonatate 100 mg capsule 100 mg PO TID PRN (Reason: cough) Qty: 30 1RF Spiriva with HandiHaler 18 mcg capsule, w/inhalation device 1 cap inhalation DAILY 90 Days Qty: 90 3RF Rx Instructions: puncture 1 cap using device; one dose = 2 inhalations clopidogrel 75 mg tablet See Rx Instructions .ROUTE .COMPLEX Qty: 30 4RF Dose Instruction: TAKE ONE TABLET BY MOUTH ONCE A DAY Rx Instructions: TAKE ONE TABLET BY MOUTH ONCE A DAY lisinopril 5 mg tablet See Rx Instructions .ROUTE .COMPLEX Qty: 30 4RF Dose Instruction: TAKE ONE TABLET BY MOUTH ONCE A DAY FOR HYPERTENSION Rx Instructions: TAKE ONE TABLET BY MOUTH ONCE A DAY FOR HYPERTENSION isosorbide mononitrate 30 mg tablet extended release 24 hr See Rx Instructions .ROUTE .COMPLEX Qty: 90 3RF Dose Instruction: TAKE ONE TABLET BY MOUTH ONCE A DAY Rx Instructions: TAKE ONE TABLET BY MOUTH ONCE A DAY torsemide 100 mg tablet 50 mg PO DAILY Qty: 90 3RF Rx Instructions: TAKE 1/2 TABLET BY MOUTH ONCE A DAY metoprolol tartrate 25 mg tablet See Rx Instructions .ROUTE .COMPLEX Qty: 60 0RF Dose Instruction: TAKE ONE TABLET BY MOUTH 2 TIMES A DAY FOR HYPERTENSION Rx Instructions: TAKE ONE TABLET BY MOUTH 2 TIMES A DAY FOR HYPERTENSION famotidine 20 mg tablet See Rx Instructions .ROUTE .COMPLEX Qty: 90 1RF Dose Instruction: TAKE ONE TABLET BY MOUTH ONCE A DAY Rx Instructions: TAKE ONE TABLET BY MOUTH ONCE A DAY ranolazine 1,000 mg tablet extended release 12 hr See Rx Instructions .ROUTE .COMPLEX Qty: 90 1RF Dose Instruction: TAKE ONE TABLET BY MOUTH 2 TIMES A DAY Rx Instructions: TAKE ONE TABLET BY MOUTH 2 TIMES A DAY spironolactone 50 mg tablet See Rx Instructions .ROUTE .COMPLEX Qty: 90 1RF Dose Instruction: TAKE ONE TABLET BY MOUTH ONCE A DAY Rx Instructions: TAKE ONE TABLET BY MOUTH ONCE A DAY ergocalciferol (vitamin D2) 1,250 MCG capsule 50,000 mcg PO WEEKLY cyclobenzaprine 10 mg tablet 10 mg PO TID PRN (Reason: muscle spasm) Qty: 10 0RF prednisone 20 mg tablet 60 mg PO DAILY Qty: 15 0RF cefdinir 300 mg capsule 300 mg PO BID 5 Days Qty: 10 0RF insulin glargine 100 UNIT/ML insulin pen 15 units SQ HS empagliflozin 25 MG tablet 25 mg PO DAILY atorvastatin 20 MG tablet 20 mg PO DAILY methocarbamol 500 MG tablet 500 mg PO BID PRN (Reason: Moderate To Severe Pain) Qty: 20 0RF Referrals Follow up/Referrals: Pihlip Khan MD [Primary Care Provider] - See instructions Clinical Impressions Clinical Impression: Left against medical advice, Acute right flank pain, Lumbar radiculopathy Instructions Patient Instructions: DI for Low Back Pain, DI for Flank Pain Discharge ED Provider: Marcos Casper Back Pain HPI General Chief Complaint: Back Pain/Injury Stated Complaint: back pain Time Seen by Provider: 06/28/22 20:56 Mode of Arrival: Wheelchair Source of Information: Patient and Medical Record Li
--- NOTE | 2022-06-28 21:04 | PC.NURSE ---
pt refused to have blood work and ct scan performed
[2022-06-28 21:05] VITALS: BP 0/0; PULSE 0; RESP 0; TEMP -17.7; TEMP 0; O2SAT 0
== END 2022-06-28 21:05 | disposition left against medical advice (07) ==
PROVIDERS: Emergency Provider Emergency Medicine; PCP Internal Medicine Adolescent Medicine
DX: M54.16 Radiculopathy, lumbar region (principal); R07.81 Pleurodynia; J44.9 Chronic obstructive pulmonary disease, unspecified; I70.219 Atherosclerosis of native arteries of extremities with intermittent claudication, unspecified extremity; E11.9 Type 2 diabetes mellitus without complications; Z85.118 Personal history of other malignant neoplasm of bronchus and lung; Z87.891 Personal history of nicotine dependence
CPT/HCPCS: 72100; 99285

== ENCOUNTER 2022-08-08 09:52 | Outpatient (CLI) | payer BC, SELFPAY ==
[2022-08-08 10:15] VITALS: BP 104/55; PULSE 80; RESP 18; TEMP 36.5; O2SAT 97
== END 2022-08-08 10:25 | disposition home or self-care (01) ==
LOC: INF 09:53
PROVIDERS: PCP Internal Medicine Adolescent Medicine; Visit Provider Physician Assistant
DX: R06.02 Shortness of breath (principal); R07.89 Other chest pain
CPT/HCPCS: 96372

== ENCOUNTER 2022-10-12 00:42 | Emergency (ER) | payer BC, SELFPAY ==
[2022-10-12] VITALS (9 sets, daily range): BP systolic 132–155; BP diastolic 65–96; PULSE 70–84; RESP 16–18; TEMP 36.6–36.8; O2SAT 97–100; BMI 41.4
--- NOTE | 2022-10-12 00:48 | CT_ITS ---
PROCEDURE INFORMATION: Exam: CT Lumbar Spine Without Contrast Exam date and time: 10/12/2022 1:20 AM Age: 61 years old Clinical indication: Low back pain TECHNIQUE: Imaging protocol: Computed tomography of the lumbar spine without contrast. Radiation optimization: All CT scans at this facility use at least one of these dose optimization techniques: automated exposure control; mA and/or kV adjustment per patient size (includes targeted exams where dose is matched to clinical indication); or iterative reconstruction. REPORTING DATA: Count of CT and Cardiac NM exams in prior 12 months: This patient has received 5 known CTs and 0 known cardiac nuclear medicine studies in the 12 months prior to the current study. COMPARISON: CT LUMBAR SPINE WO CON 01/03/2022 10:02 PM FINDINGS: Bones/joints: Grade 1 degenerative retrolisthesis of L2 on L3, L3 on L4, and L4 on L5. Multilevel degenerative disc disease, worst at the L3-L4 level, where there is moderate disc space narrowing minimal osteophyte formation. Bilateral L4-L5 and L5-S1 facet arthropathy. No acute fracture. Vasculature: Atherosclerotic vascular disease. Soft tissues: Unremarkable. IMPRESSION: No acute fracture.
--- NOTE | 2022-10-12 04:16 | HMH.EDGENADL ---
Discharge Plan Disposition Patient Disposition: Home, Self-Care Condition: Good Prescriptions Prescriptions: New lidocaine 5 % adhesive patch,medicated 1 patch topical DAILY Qty: 15 0RF Rx Instructions: leave on most painful area for up to 12 hrs No Action chlorzoxazone 500 mg tablet 500 mg PO TID oxycodone-acetaminophen 10-325 mg tablet 1 tab PO TID ketorolac 30 mg/mL solution 30 mg IM .one time dose Qty: 1 0RF ketorolac 10 mg tablet 10 mg PO QID PRN (Reason: chest pain) 5 Days Qty: 20 0RF clonazepam 0.5 mg tablet 0.5 mg PO BID gabapentin 800 mg tablet 800 mg PO TID (DME) OneTouch Ultra Test Strip See Rx Instructions .ROUTE .MEDSUPPLY Qty: 10 Rx Instructions: As directed (DME) pen needle, diabetic [BD Ultra-Fine Short Pen Needle] 31 gauge x 5/16 needle See Rx Instructions .ROUTE .MEDSUPPLY Qty: 1200 Rx Instructions: As directed Januvia 100 mg tablet 100 mg PO DAILY glipizide 10 mg tablet 10 mg PO DAILY benzonatate 100 mg capsule 100 mg PO TID PRN (Reason: cough) Qty: 30 1RF Spiriva with HandiHaler 18 mcg capsule, w/inhalation device 1 cap inhalation DAILY 90 Days Qty: 90 3RF Rx Instructions: puncture 1 cap using device; one dose = 2 inhalations isosorbide mononitrate 30 mg tablet extended release 24 hr See Rx Instructions .ROUTE .COMPLEX Qty: 90 3RF Dose Instruction: TAKE ONE TABLET BY MOUTH ONCE A DAY Rx Instructions: TAKE ONE TABLET BY MOUTH ONCE A DAY torsemide 100 mg tablet 50 mg PO DAILY Qty: 90 3RF Rx Instructions: TAKE 1/2 TABLET BY MOUTH ONCE A DAY famotidine 20 mg tablet See Rx Instructions .ROUTE .COMPLEX Qty: 90 1RF Dose Instruction: TAKE ONE TABLET BY MOUTH ONCE A DAY Rx Instructions: TAKE ONE TABLET BY MOUTH ONCE A DAY spironolactone 50 mg tablet See Rx Instructions .ROUTE .COMPLEX Qty: 90 1RF Dose Instruction: TAKE ONE TABLET BY MOUTH ONCE A DAY Rx Instructions: TAKE ONE TABLET BY MOUTH ONCE A DAY metoprolol tartrate 25 mg tablet See Rx Instructions .ROUTE .COMPLEX Qty: 180 3RF Dose Instruction: TAKE ONE TABLET BY MOUTH 2 TIMES A DAY FOR HYPERTENSION Rx Instructions: TAKE ONE TABLET BY MOUTH 2 TIMES A DAY FOR HYPERTENSION atorvastatin 20 mg tablet See Rx Instructions .ROUTE .COMPLEX Qty: 30 1RF Dose Instruction: TAKE ONE TABLET BY MOUTH ONCE A DAY Rx Instructions: TAKE ONE TABLET BY MOUTH ONCE A DAY albuterol sulfate 90 mcg/actuation HFA aerosol inhaler 2 inh IH QID PRN (Reason: shortness of breath or wheezing) 90 Days Qty: 8.5 2RF clopidogrel 75 mg tablet See Rx Instructions .ROUTE .COMPLEX Qty: 90 4RF Dose Instruction: TAKE ONE TABLET BY MOUTH ONCE A DAY Rx Instructions: TAKE ONE TABLET BY MOUTH ONCE A DAY lisinopril 5 mg tablet See Rx Instructions .ROUTE .COMPLEX Qty: 90 4RF Dose Instruction: TAKE ONE TABLET BY MOUTH ONCE A DAY FOR HYPERTENSION Rx Instructions: TAKE ONE TABLET BY MOUTH ONCE A DAY FOR HYPERTENSION ranolazine 1,000 mg tablet extended release 12 hr See Rx Instructions .ROUTE .COMPLEX Qty: 90 1RF Dose Instruction: TAKE ONE TABLET BY MOUTH 2 TIMES A DAY Rx Instructions: TAKE ONE TABLET BY MOUTH 2 TIMES A DAY ergocalciferol (vitamin D2) 1,250 MCG capsule 50,000 mcg PO WEEKLY cyclobenzaprine 10 mg tablet 10 mg PO TID PRN (Reason: muscle spasm) Qty: 10 0RF prednisone 20 mg tablet 60 mg PO DAILY Qty: 15 0RF cefdinir 300 mg capsule 300 mg PO BID 5 Days Qty: 10 0RF insulin glargine 100 UNIT/ML insulin pen 15 units SQ HS empagliflozin 25 MG tablet 25 mg PO DAILY methocarbamol 500 MG tablet 500 mg PO BID PRN (Reason: Moderate To Severe Pain) Qty: 20 0RF Referrals Follow up/Referrals: Philip Khan MD [Primary Care Provider] - See instructions Clinical Impress
== END 2022-10-12 04:35 | disposition home or self-care (01) ==
PROVIDERS: Emergency Provider Emergency Medicine; PCP Internal Medicine Adolescent Medicine
DX: M54.50 Low back pain, unspecified (principal); M79.605 Pain in left leg; Z87.891 Personal history of nicotine dependence
CPT/HCPCS: 72131; 99284

== ENCOUNTER 2022-10-19 22:08 | Emergency (ER) | payer BC, SELFPAY ==
[2022-10-19 22:09] VITALS: BP 125/87; PULSE 76; RESP 18; TEMP 36.8; O2SAT 99; BMI 38.2
[2022-10-19 23:00] VITALS: BP 129/76; PULSE 78; O2SAT 93
--- NOTE | 2022-10-19 23:08 | HMH.EDBACK ---
Discharge Plan Disposition Patient Disposition: Home, Self-Care Chief Complaint: Back Pain/Injury Prescriptions Prescriptions: No Action chlorzoxazone 500 mg tablet 500 mg PO TID oxycodone-acetaminophen 10-325 mg tablet 1 tab PO TID ketorolac 30 mg/mL solution 30 mg IM .one time dose Qty: 1 0RF ketorolac 10 mg tablet 10 mg PO QID PRN (Reason: chest pain) 5 Days Qty: 20 0RF clonazepam 0.5 mg tablet 0.5 mg PO BID gabapentin 800 mg tablet 800 mg PO TID (DME) OneTouch Ultra Test Strip See Rx Instructions .ROUTE .MEDSUPPLY Qty: 10 Rx Instructions: As directed (DME) pen needle, diabetic [BD Ultra-Fine Short Pen Needle] 31 gauge x 5/16 needle See Rx Instructions .ROUTE .MEDSUPPLY Qty: 1200 Rx Instructions: As directed Januvia 100 mg tablet 100 mg PO DAILY glipizide 10 mg tablet 10 mg PO DAILY benzonatate 100 mg capsule 100 mg PO TID PRN (Reason: cough) Qty: 30 1RF Spiriva with HandiHaler 18 mcg capsule, w/inhalation device 1 cap inhalation DAILY 90 Days Qty: 90 3RF Rx Instructions: puncture 1 cap using device; one dose = 2 inhalations isosorbide mononitrate 30 mg tablet extended release 24 hr See Rx Instructions .ROUTE .COMPLEX Qty: 90 3RF Dose Instruction: TAKE ONE TABLET BY MOUTH ONCE A DAY Rx Instructions: TAKE ONE TABLET BY MOUTH ONCE A DAY torsemide 100 mg tablet 50 mg PO DAILY Qty: 90 3RF Rx Instructions: TAKE 1/2 TABLET BY MOUTH ONCE A DAY famotidine 20 mg tablet See Rx Instructions .ROUTE .COMPLEX Qty: 90 1RF Dose Instruction: TAKE ONE TABLET BY MOUTH ONCE A DAY Rx Instructions: TAKE ONE TABLET BY MOUTH ONCE A DAY spironolactone 50 mg tablet See Rx Instructions .ROUTE .COMPLEX Qty: 90 1RF Dose Instruction: TAKE ONE TABLET BY MOUTH ONCE A DAY Rx Instructions: TAKE ONE TABLET BY MOUTH ONCE A DAY metoprolol tartrate 25 mg tablet See Rx Instructions .ROUTE .COMPLEX Qty: 180 3RF Dose Instruction: TAKE ONE TABLET BY MOUTH 2 TIMES A DAY FOR HYPERTENSION Rx Instructions: TAKE ONE TABLET BY MOUTH 2 TIMES A DAY FOR HYPERTENSION atorvastatin 20 mg tablet See Rx Instructions .ROUTE .COMPLEX Qty: 30 1RF Dose Instruction: TAKE ONE TABLET BY MOUTH ONCE A DAY Rx Instructions: TAKE ONE TABLET BY MOUTH ONCE A DAY albuterol sulfate 90 mcg/actuation HFA aerosol inhaler 2 inh IH QID PRN (Reason: shortness of breath or wheezing) 90 Days Qty: 8.5 2RF clopidogrel 75 mg tablet See Rx Instructions .ROUTE .COMPLEX Qty: 90 4RF Dose Instruction: TAKE ONE TABLET BY MOUTH ONCE A DAY Rx Instructions: TAKE ONE TABLET BY MOUTH ONCE A DAY lisinopril 5 mg tablet See Rx Instructions .ROUTE .COMPLEX Qty: 90 4RF Dose Instruction: TAKE ONE TABLET BY MOUTH ONCE A DAY FOR HYPERTENSION Rx Instructions: TAKE ONE TABLET BY MOUTH ONCE A DAY FOR HYPERTENSION ranolazine 1,000 mg tablet extended release 12 hr See Rx Instructions .ROUTE .COMPLEX Qty: 90 1RF Dose Instruction: TAKE ONE TABLET BY MOUTH 2 TIMES A DAY Rx Instructions: TAKE ONE TABLET BY MOUTH 2 TIMES A DAY ergocalciferol (vitamin D2) 1,250 MCG capsule 50,000 mcg PO WEEKLY cyclobenzaprine 10 mg tablet 10 mg PO TID PRN (Reason: muscle spasm) Qty: 10 0RF prednisone 20 mg tablet 60 mg PO DAILY Qty: 15 0RF cefdinir 300 mg capsule 300 mg PO BID 5 Days Qty: 10 0RF lidocaine 5 % adhesive patch,medicated 1 patch topical DAILY Qty: 15 0RF Rx Instructions: leave on most painful area for up to 12 hrs insulin glargine 100 UNIT/ML insulin pen 15 units SQ HS empagliflozin 25 MG tablet 25 mg PO DAILY methocarbamol 500 MG tablet 500 mg PO BID PRN (Reason: Moderate To Severe Pain) Qty: 20 0RF Referrals Follow up/Referrals: Philip Khan MD [Primary Care Provider] - See instructions Clini
[2022-10-19 23:27] VITALS: BP 124/74; PULSE 74; RESP 16; TEMP 36.8; O2SAT 95
== END 2022-10-19 23:34 | disposition home or self-care (01) ==
PROVIDERS: Emergency Provider Emergency Medicine; PCP Internal Medicine Adolescent Medicine
DX: M54.16 Radiculopathy, lumbar region (principal)
CPT/HCPCS: 96372; 99283; 99284

== ENCOUNTER → 2022-11-25 09:18 | Outpatient (CLI) | payer BC, SELFPAY ==
--- NOTE | 2022-11-25 09:21 | XR_ITS ---
FINAL REPORT CLINICAL HISTORY: knee pain COMPARISON: 01/15/2022 FINDINGS: There is no acute fracture or dislocation. The joint spaces are intact. There is no soft tissue abnormality. There is mild sharpening of the tibial spines compatible with mild degenerative change. There is an ossific density at the lateral margin of the patella seen best on the sunrise views IMPRESSION: No acute fracture Reviewed, Interpreted and Dictated by Giles Mcfadden MD Transcribed by Katty Evans Authenticated and [facility]
== END ==
PROVIDERS: PCP Internal Medicine Adolescent Medicine; Visit Provider Orthopaedic Surgery
DX: M25.562 Pain in left knee (principal)
CPT/HCPCS: 73562

== ENCOUNTER → 2022-12-02 14:33 | Outpatient (CLI) | payer BC, SELFPAY ==
--- NOTE | 2022-12-02 14:38 | CT_ITS ---
FINAL REPORT TECHNIQUE: Axial images were obtained of the chest was performed by computed tomography. This study was performed with techniques to keep radiation doses as low as reasonably achievable (ALARA). Individualized dose reduction techniques using automated exposure control or adjustment of mA and/or kV according to the patient's size were employed. CLINICAL HISTORY: LUNG CANCER COMPARISON: 06/08/2022 FINDINGS: There is no axillary adenopathy. There are small mediastinal nodes which are stable. The heart is normal in size. There is no pericardial or pleural effusion. There are opacities in the medial left thorax consistent with post treatment change/radiation change. There is mild scarring. There are moderate changes of emphysema. There is a calcified granuloma in the right lower lobe. There is a 3 mm nodule in the right upper lobe which is stable. Finding is best seen on image 36. The patient is status post cholecystectomy. IMPRESSION: Stable right upper lobe nodule measures 3 mm. Stable posttreatment change. Reviewed, Interpreted and Dictated by Davis Mitchell III, MD Transcribed by Cady Becerra Authenticated and [facility]
== END ==
PROVIDERS: PCP Internal Medicine Adolescent Medicine; Visit Provider Internal Medicine Medical Oncology
DX: C34.90 Malignant neoplasm of unspecified part of unspecified bronchus or lung (principal)
CPT/HCPCS: 71250

== ENCOUNTER → 2022-12-04 15:47 | Outpatient (CLI) | payer BC, SELFPAY ==
--- NOTE | 2022-12-04 15:47 | MR_ITS ---
PROCEDURE INFORMATION: Exam: MR Left Lower Extremity Joint Without Contrast, Knee Exam date and time: 12/04/2022 3:51 PM Age: 61 years old Clinical indication: Pain; Knee; Left; Additional info: Lt knee pain TECHNIQUE: Imaging protocol: Magnetic resonance imaging of the left lower extremity joint without contrast. Exam focused on the knee. COMPARISON: CR XR KNEE LT 3V 11/25/2022 9:29 AM FINDINGS: Bones/joints: No acute fracture. No dislocation. Moderate to severe degenerative changes of patellofemoral compartment, characterized by asymmetric lateral joint space narrowing, full-thickness focal denudation of articular cartilage lining lateral facet of patella, subchondral cysts/edema. Early degenerative changes of medial compartment, characterized by minimal signal changes of articular cartilage, tiny subchondral cyst. Fluid: Small joint effusion. Small to moderate Butler's cyst with mild partial rupture. Medial meniscus: No definite tear. Lateral meniscus: No definite tear. Anterior cruciate ligament: Intact. Posterior cruciate ligament: Intact. Medial capsule and supporting structures: Mild edema superficial to intact medial collateral ligament. Lateral capsule and supporting structures: Intact. Extensor mechanism of knee: Intact. Soft tissues: Unremarkable. IMPRESSION: 1. Osteoarthritis, most pronounced within patellofemoral compartment. 2. Grade 1 MCL injury. 3. Partially ruptured Butler's cyst.
== END ==
PROVIDERS: PCP Internal Medicine Adolescent Medicine; Visit Provider Orthopaedic Surgery
DX: M25.562 Pain in left knee (principal)
CPT/HCPCS: 73721

== ENCOUNTER 2022-12-11 11:11 | Outpatient (RCR) | payer BC, SELFPAY | END 2022-12-11 12:00 | disposition home or self-care (01) | LOC: PT 11:11 | PROVIDERS: Visit Provider Orthopaedic Surgery | DX: S83.242A Other tear of medial meniscus, current injury, left knee, initial encounter (principal) | CPT/HCPCS: 97760 ==

== ENCOUNTER 2023-01-08 09:00 | Outpatient (RCR) | payer BC, SELFPAY ==
--- NOTE | 2022-12-24 14:00 | HMH.PTOPEV ---
PT Outpatient Evaluation Rehab PT Outpatient Evaluation Start: 12/24/22 13:02 Freq: Status: Active Protocol: Document 12/24/22 13:46 NONA (Rec: 12/24/22 14:00 NONA [id number]) E-signed By Yoan Tom, PT Outpatient Therapy Subjective History Subjective History Patient is a 62 year old male presenting to outpatient PT with reports of chronic L knee pain of insidious onset. It 's probably from an old football injury. Most recent imaging indicates G1 MCL tear and partially torn Bakers cyst. Comorbidities include hx of HTN, HL, LS pain and diabetes. Chief Complaint Pain,Stiff,Clicks,Swelling, Weakness Symptom Type Sharp Symptoms Relieved By Rest/Positioning,Heat Symptoms Aggravated By Standing,Physical Activity, Walking Prior Functional Limitations None Current Functional Limitations Housework,Standing,Squatting, Walking,Stairs,Balance Symptom Description Constant but Variable Level of pain today (0-10) 8 Pain scale - at its best (0-10) 6 Pain scale - at its worst (0-10) 9 Hip/Knee Eval Gait Observation General Gait Pattern Observation Antalgic Gait,Decrease Weight Bear (L) Palpation Tenderness left Knee Palpation Finding Tenderness Knee Palpation Overall Comment L MCL/medial joint line MMT Hip Flexion Strength Grade 4- Good- Hip Abduction Strength Grade 4- Good- Hip Adduction Strength Grade 4- Good- Hip Extension Strength Grade 4- Good- Hip External Rotation Strength Grade 4- Good- Hip Internal Rotation Strength Grade 4- Good- Knee Extension Strength Grade 3+ Fair+ Knee Flexion Strength Grade 4- Good- ROM Hip ROM Reason Not Measured Within Functional Limits Knee Extension Active Range of Motion ( 0 degrees) Knee Flexion Active Range of Motion ( 87 degrees) Special Tests Knee Anterior Haroldo Test Negative Left Knee Pivot Shift Test Negative Left Knee Valgus Stress Test Positive Left Knee Varus Stress Test Negative Right Outpatient Therapy Assessment Impairments Problems/Impairmments Palpation Tenderness,Impaired Range of Motion,Impaired Strength,Impaired Walking, Impaired Standing,Impaired Household Care,Impaired Stair
== END 2023-01-08 09:05 | disposition home or self-care (01) ==
LOC: PT 09:00
PROVIDERS: PCP Internal Medicine Adolescent Medicine; Visit Provider Orthopaedic Surgery
DX: M25.562 Pain in left knee (principal); S83.412A Sprain of medial collateral ligament of left knee, initial encounter
CPT/HCPCS: 97010; 97014; 97035; 97110; 97163; 97530; G0283

== ENCOUNTER 2023-01-08 09:30 | Outpatient (RCR) | payer BC, SELFPAY | END 2023-01-08 10:30 | disposition home or self-care (01) | LOC: PT 09:30 | PROVIDERS: PCP Internal Medicine Adolescent Medicine; Visit Provider Nurse Practitioner Family | DX: M54.42 Lumbago with sciatica, left side (principal) | CPT/HCPCS: 97110; 97163 ==

== ENCOUNTER 2023-01-09 08:07 | Emergency (ER) | payer BC, SELFPAY ==
[2023-01-09 08:09] VITALS: BP 126/67; PULSE 69; RESP 17; TEMP 36.3; O2SAT 100; BMI 39.4
--- NOTE | 2023-01-09 08:23 | PC.NURSE ---
charge nurse on phone with care management for outpt MRI. Haider Sheridan on phone with to arrange follow up with spine center.
--- NOTE | 2023-01-09 08:42 | HMH.EDGENADL ---
Discharge Plan Disposition Patient Disposition: Home, Self-Care Chief Complaint: PAIN Prescriptions Prescriptions: No Action oxycodone-acetaminophen 10-325 mg tablet 1 tab PO TID gabapentin 800 mg tablet 800 mg PO TID (DME) OneTouch Ultra Test Strip See Rx Instructions .ROUTE .MEDSUPPLY Qty: 10 Rx Instructions: As directed (DME) pen needle, diabetic [BD Ultra-Fine Short Pen Needle] 31 gauge x 5/16 needle See Rx Instructions .ROUTE .MEDSUPPLY Qty: 1200 Rx Instructions: As directed Januvia 100 mg tablet 100 mg PO DAILY benzonatate 100 mg capsule 100 mg PO TID PRN (Reason: cough) Qty: 30 1RF torsemide 100 mg tablet 50 mg PO DAILY Qty: 90 3RF Rx Instructions: TAKE 1/2 TABLET BY MOUTH ONCE A DAY spironolactone 50 mg tablet See Rx Instructions .ROUTE .COMPLEX Qty: 90 1RF Dose Instruction: TAKE ONE TABLET BY MOUTH ONCE A DAY Rx Instructions: TAKE ONE TABLET BY MOUTH ONCE A DAY metoprolol tartrate 25 mg tablet See Rx Instructions .ROUTE .COMPLEX Qty: 180 3RF Dose Instruction: TAKE ONE TABLET BY MOUTH 2 TIMES A DAY FOR HYPERTENSION Rx Instructions: TAKE ONE TABLET BY MOUTH 2 TIMES A DAY FOR HYPERTENSION atorvastatin 20 mg tablet See Rx Instructions .ROUTE .COMPLEX Qty: 30 1RF Dose Instruction: TAKE ONE TABLET BY MOUTH ONCE A DAY Rx Instructions: TAKE ONE TABLET BY MOUTH ONCE A DAY albuterol sulfate 90 mcg/actuation HFA aerosol inhaler 2 inh IH QID PRN (Reason: shortness of breath or wheezing) 90 Days Qty: 8.5 2RF clopidogrel 75 mg tablet See Rx Instructions .ROUTE .COMPLEX Qty: 90 4RF Dose Instruction: TAKE ONE TABLET BY MOUTH ONCE A DAY Rx Instructions: TAKE ONE TABLET BY MOUTH ONCE A DAY ranolazine 1,000 mg tablet extended release 12 hr See Rx Instructions .ROUTE .COMPLEX Qty: 90 1RF Dose Instruction: TAKE ONE TABLET BY MOUTH 2 TIMES A DAY Rx Instructions: TAKE ONE TABLET BY MOUTH 2 TIMES A DAY Spiriva with HandiHaler 18 mcg capsule, w/inhalation device 1 cap inhalation DAILY 90 Days Qty: 90 3RF Rx Instructions: puncture 1 cap using device; one dose = 2 inhalations isosorbide mononitrate 30 mg tablet extended release 24 hr See Rx Instructions .ROUTE .COMPLEX Qty: 90 3RF Dose Instruction: TAKE ONE TABLET BY MOUTH ONCE A DAY Rx Instructions: TAKE ONE TABLET BY MOUTH ONCE A DAY lisinopril 5 mg tablet See Rx Instructions .ROUTE .COMPLEX Qty: 90 4RF Dose Instruction: TAKE ONE TABLET BY MOUTH ONCE A DAY FOR HYPERTENSION Rx Instructions: TAKE ONE TABLET BY MOUTH ONCE A DAY FOR HYPERTENSION ergocalciferol (vitamin D2) 1,250 MCG capsule 50,000 mcg PO WEEKLY lidocaine 5 % adhesive patch,medicated 1 patch topical DAILY Qty: 15 0RF Rx Instructions: leave on most painful area for up to 12 hrs insulin glargine 100 UNIT/ML insulin pen 15 units SQ HS empagliflozin 25 MG tablet 25 mg PO DAILY methocarbamol 500 MG tablet 500 mg PO BID PRN (Reason: Moderate To Severe Pain) Qty: 20 0RF Referrals Follow up/Referrals: Philip Khan MD [Primary Care Provider] - See instructions Activity Restrictions/Add. Instructions Additional Instructions/Restrictions: Your chronic low back pain with sciatica that has not been improving with physical therapy and outpatient oral medications requires an MRI. We are attempting to get an outpatient thoracic and lumbar spine MRI scheduled for you however given the difficulties of insurance we may not be able to accomplish this being ordered from the emergency department. A referral has been made to [facility] and they should call you with an appointment. Your information has been given to them and if you do not hear from them within 1 week please call [phone] to make an appointment. Please return to the emergency department with specific symptoms that we
--- NOTE | 2023-01-09 08:50 | PC.NURSE ---
Spoke with Anastasiya in about outpt MRI of thoracic and lumber without contrast. Outpt order is faxed to Anastasiya, who will continue to follow up with appt and insurance.
[2023-01-09 08:59] VITALS: BP 126/67; PULSE 69; RESP 16; TEMP 36.4
--- NOTE | 2023-01-09 10:00 | PC.NURSE ---
referral faxed to [facility] for spine appt.
--- NOTE | 2023-01-09 14:58 | CARE MANAGER ---
Spoke with Dr. Flores this morning in regards to his outpatient order for both lumbar and thoracic MRI. CM has submitted and obtained an authorization for ordered MRIs. I spoke with patient in regards to implants/iron infusions/Sx with implants/pace maker or defibrillator, and patient has stated none apply. He is scheduled for 01/21 @ 1300 and patient is aware.
== END 2023-01-09 09:12 | disposition home or self-care (01) ==
PROVIDERS: Emergency Provider Student in an Organized Health Care Education/Training Program; PCP Internal Medicine Adolescent Medicine
DX: M54.40 Lumbago with sciatica, unspecified side (principal); M12.58 Traumatic arthropathy, other specified site; J44.9 Chronic obstructive pulmonary disease, unspecified; E11.9 Type 2 diabetes mellitus without complications; G47.33 Obstructive sleep apnea (adult) (pediatric); I20.9 Angina pectoris, unspecified; Z85.118 Personal history of other malignant neoplasm of bronchus and lung; Z87.891 Personal history of nicotine dependence
CPT/HCPCS: 99283

== ENCOUNTER → 2023-01-21 12:53 | Outpatient (CLI) | payer BC, SELFPAY ==
--- NOTE | 2023-01-21 12:58 | MR_ITS ---
FINAL REPORT CLINICAL HISTORY: .LOW BACK PAIN, BEST IMAGES SENT OVER, PATIENT IN PAIN UNABLE TO LAY STILL ANY LONGER FINDINGS: Multiplanar MR imaging of the lumbar spine was performed without contrast. Motion artifact is identified on all of the images. On the sagittal T2-weighted images, disc degeneration is seen throughout. The vertebral alignment is normal. There is no evidence of fracture. The conus has an unremarkable appearance. L1-2: An annular bulge is present. There is no significant canal stenosis or neural foraminal narrowing. L2-3: An annular bulge is present. There is mild bilateral neural foraminal narrowing. L3-4: An annular bulge is present. Facet arthropathy and osteophytes are present. There is moderate bilateral neural foraminal narrowing. L4-5: An annular bulge and facet arthropathy are present. There is moderate bilateral neural foraminal narrowing. L5-S1: An annular bulge and facet arthropathy are present. There is moderate right and mild left neural foraminal narrowing. IMPRESSION: Multilevel degenerative disc disease and spondylosis. Reviewed, Interpreted and Dictated by Davis Mitchell III, MD Transcribed by Cady Becerra Authenticated and [facility]
--- NOTE | 2023-01-21 12:58 | MR_ITS ---
FINAL REPORT CLINICAL HISTORY: .BACK PAIN NO INJURY FINDINGS: Multiplanar MR imaging of the thoracic spine was performed without contrast. On the sagittal T2-weighted images, disc degeneration is seen at multiple levels. There are mild endplate changes at multiple levels. There is no evidence of fracture. The vertebral alignment is normal. The thoracic spinal cord has an unremarkable appearance without evidence of mass, edema or syrinx. There is no evidence of significant canal stenosis or cord compression. On the axial images, mild disc bulges and small osteophytes are seen at multiple levels. No focal soft disc protrusion is identified. There is no evidence of significant canal stenosis or cord compression. No paraspinous soft tissue abnormality is identified. IMPRESSION: Multilevel mild degenerative disc disease and spondylosis. No focal soft disc protrusion or significant central canal stenosis. Reviewed, Interpreted and Dictated by Davis Mitchell III, MD Transcribed by Cady Becerra Authenticated and [facility]
== END ==
LOC: RAD 12:53
PROVIDERS: PCP Internal Medicine Adolescent Medicine; Visit Provider Student in an Organized Health Care Education/Training Program
DX: M54.6 Pain in thoracic spine (principal); M54.50 Low back pain, unspecified
CPT/HCPCS: 72146; 72148; 76376

== ENCOUNTER 2023-01-28 14:46 | Emergency (ER) | payer BC, SELFPAY ==
[2023-01-28 14:47] VITALS: BP 108/66; PULSE 85; RESP 16; TEMP 36.7; O2SAT 97; BMI 38.2
--- NOTE | 2023-01-28 15:05 | PC.NURSE ---
pt was placed in consultation room (13) vital signs obtained let pt know as soon as we have an available bed will move him back to a room
[2023-01-28 15:25] LABS: Microscopic, Urine URINE MICROSCOPIC (MICROSCOPIC)
[2023-01-28 15:37] LABS: Appearance,Urine CLEAR (Clear); Bilirubin,Urine Negative (Negative); Blood, Urine Negative (Negative); Color,Urine YELLOW (Yellow); Glucose,Urine (UA) 3+ (Negative); Ketones,Urine Negative (Negative); Leukocyte Esterase,Urine Negative (Negative); Nitrate,Urine Negative (Negative); PH,Urine 5.5 (5.0-8.5); Protein,Urine Negative (Negative); Urobilinogen,Urine 0.2 EU/dl (0.2)
[2023-01-28 15:49] LABS: Squamous Epithelial Cell,Urine Occasional #/hpf (0-5); WBC,Urine Occasional #/hpf (0-3)
--- NOTE | 2023-01-28 16:17 | CT_ITS ---
PROCEDURE INFORMATION: Exam: CT Abdomen And Pelvis With Contrast Exam date and time: 01/28/2023 5:30 PM Age: 62 years old Clinical indication: Abdominal pain; Additional info: Previous lung cancer, L flank dysuria TECHNIQUE: Imaging protocol: Computed tomography of the abdomen and pelvis with contrast. Radiation optimization: All CT scans at this facility use at least one of these dose optimization techniques: automated exposure control; mA and/or kV adjustment per patient size (includes targeted exams where dose is matched to clinical indication); or iterative reconstruction. Contrast material: ISOVUE; Contrast volume: 75 ml; Contrast route: IV; REPORTING DATA: Count of CT and Cardiac NM exams in prior 12 months: This patient has received 5 known CTs and 0 known cardiac nuclear medicine studies in the 12 months prior to the current study. COMPARISON: CT ABDOMEN PELVIS W CON 04/13/2022 5:27 PM FINDINGS: Mediastinal space: The visualized distal esophagus is largely contracted without gross abnormality. Liver: Question mild generalized fatty infiltration of the liver. Normal contour. No mass lesions. Slight central intrahepatic biliary ductal dilatation is unchanged. Gallbladder and bile ducts: Cholecystectomy with chronic mild dilatation of the common hepatic duct unchanged. Nondilated common bile duct. Pancreas: Moderate fatty atrophy of the pancreas. No ductal dilatation. A 2.8 x 2.7 by 2.0 cm lesion in the posterior superior pancreatic head with mildly enhancing internal elements on the portal phase CT abdomen acquisition, when compared to the early phase chest CT acquisition, is slightly decreased in size from CT 04/22/2019. No pancreatic ductal dilatation. No changes of pancreatitis. The stability to slightly decreased size favors a benign process, consider serous cystadenoma. There was a prior MRI abdomen with and without contrast on 01/01/2021 which can not currently be made available for comparison. Comparison to that exam is recommended when able. The exam was requested and an addendum will be placed if made available. If ultimately unavailable, consider pre and postcontrast MRI evaluation. Spleen: Normal. No splenomegaly. Adrenal glands: Normal. No adrenal mass. Kidneys and ureters: Mild bilateral symmetrical perinephric stranding, nonspecific. This is unchanged and may relate to chronic perirenal scarring. No hydronephrosis or hydroureter. No urinary tract stones are identified. Stomach and bowel: The stomach is largely contracted. The small bowel is nondilated with no gross abnormality. No acute colonic abnormalities. Appendix: The appendix is normal in caliber and demonstrates no evidence of appendicitis. Intraperitoneal space: No free fluid or air. Vasculature: Mild-moderate calcific athero sclerosis. Borderline mild aneurysmal dilatation of the mid abdominal aortic segment measuring 3.1 cm maximum diameter is unchanged. No evidence of dissection or rupture. Lymph nodes: No adenopathy. Urinary bladder: Unremarkable as visualized. Reproductive: Unremarkable as visualized. Bones/joints: No acute osseous abnormalities. Mild thoracolumbar spondylosis. Moderate disc degenerative changes L3-L4. Soft tissues: Unremarkable. IMPRESSION: 1. No acute process is evident. 2. Lesion in the pancreatic head, demonstrating long-term stability to slight decrease in size favoring a benign etiology, possibly serous cystadenoma. Please see recommendations above. 3. The findings were verbally communicated via telephone conference with RAJNI Colmenares at 6:44 PM EDT on 01/28/2023. The findings were acknowledged and understood.
--- NOTE | 2023-01-28 16:17 | CT_ITS ---
PROCEDURE INFORMATION: Exam: CT Chest With Contrast; Diagnostic Exam date and time: 01/28/2023 5:30 PM Age: 62 years old Clinical indication: Pain; Left-sided; Additional info: Previous lung cancer, L thoracic and flank pain TECHNIQUE: Imaging protocol: Diagnostic computed tomography of the chest with contrast. Radiation optimization: All CT scans at this facility use at least one of these dose optimization techniques: automated exposure control; mA and/or kV adjustment per patient size (includes targeted exams where dose is matched to clinical indication); or iterative reconstruction. Contrast material: ISOVUE; Contrast volume: 75 ml; Contrast route: IV; REPORTING DATA: Count of CT and Cardiac NM exams in prior 12 months: This patient has received 5 known CTs and 0 known cardiac nuclear medicine studies in the 12 months prior to the current study. COMPARISON: CT CHEST W CON 04/22/2019 10:[address] angiogram 06/08/2022 was requested but can not be made available for comparison. FINDINGS: Thyroid: The visualized thyroid gland is unremarkable. Lungs: Moderate paraseptal emphysematous changes in the pulmonary apices with bullous transformation. Mild central bronchiectasis bilaterally. Mild left perihilar fibrosis and bandlike atelectasis or fibrosis in the left mid lung, probably representing chronic posttreatment changes. Granulomatous calcifications in the left hilum. Granulomatous calcifications in the posterior right lung base. No pulmonary mass lesions are identified. Pleural spaces: No pleural effusions. No pneumothorax. Heart: Heart size normal. Mild coronary artery calcification. Mediastinal space: The esophagus is largely contracted without gross abnormality. Lymph nodes: No supraclavicular or axillary adenopathy. No mediastinal or hilar adenopathy. Vasculature: Mild aortic ectasia/tortuosity and calcific atherosclerosis. No mediastinal hematoma. The pulmonary arteries demonstrate no gross abnormality. Bones/joints: No acute osseous abnormalities are identified. Mild thoracic spondylosis. Soft tissues: Soft tissues of the thoracic wall demonstrate no acute abnormality. IMPRESSION: 1. No acute thoracic process is identified. 2. Moderate emphysematous changes in the pulmonary apices bilaterally, with bullous transformation. No pneumothorax. 3. Posttreatment changes in the left hilar distribution with bandlike atelectasis or fibrosis in the left mid lung and mild central bronchiectasis. 4. Additional nonemergent findings detailed above. COMMENTS: In the absence of a history or active diagnosis of lung cancer, it is recommended that this patient with emphysema be evaluated for enrollment in a low dose CT lung cancer screening program.
--- NOTE | 2023-01-28 16:21 | HMH.EDGENADL ---
Discharge Plan Disposition Patient Disposition: Home, Self-Care Condition: Good Chief Complaint: Abdominal Pain Prescriptions Prescriptions: No Action oxycodone-acetaminophen 10-325 mg tablet 1 tab PO TID gabapentin 800 mg tablet 800 mg PO TID (DME) OneTouch Ultra Test Strip See Rx Instructions .ROUTE .MEDSUPPLY Qty: 10 Rx Instructions: As directed (DME) pen needle, diabetic [BD Ultra-Fine Short Pen Needle] 31 gauge x 5/16 needle See Rx Instructions .ROUTE .MEDSUPPLY Qty: 1200 Rx Instructions: As directed Januvia 100 mg tablet 100 mg PO DAILY benzonatate 100 mg capsule 100 mg PO TID PRN (Reason: cough) Qty: 30 1RF torsemide 100 mg tablet 50 mg PO DAILY Qty: 90 3RF Rx Instructions: TAKE 1/2 TABLET BY MOUTH ONCE A DAY spironolactone 50 mg tablet See Rx Instructions .ROUTE .COMPLEX Qty: 90 1RF Dose Instruction: TAKE ONE TABLET BY MOUTH ONCE A DAY Rx Instructions: TAKE ONE TABLET BY MOUTH ONCE A DAY metoprolol tartrate 25 mg tablet See Rx Instructions .ROUTE .COMPLEX Qty: 180 3RF Dose Instruction: TAKE ONE TABLET BY MOUTH 2 TIMES A DAY FOR HYPERTENSION Rx Instructions: TAKE ONE TABLET BY MOUTH 2 TIMES A DAY FOR HYPERTENSION atorvastatin 20 mg tablet See Rx Instructions .ROUTE .COMPLEX Qty: 30 1RF Dose Instruction: TAKE ONE TABLET BY MOUTH ONCE A DAY Rx Instructions: TAKE ONE TABLET BY MOUTH ONCE A DAY albuterol sulfate 90 mcg/actuation HFA aerosol inhaler 2 inh IH QID PRN (Reason: shortness of breath or wheezing) 90 Days Qty: 8.5 2RF clopidogrel 75 mg tablet See Rx Instructions .ROUTE .COMPLEX Qty: 90 4RF Dose Instruction: TAKE ONE TABLET BY MOUTH ONCE A DAY Rx Instructions: TAKE ONE TABLET BY MOUTH ONCE A DAY ranolazine 1,000 mg tablet extended release 12 hr See Rx Instructions .ROUTE .COMPLEX Qty: 90 1RF Dose Instruction: TAKE ONE TABLET BY MOUTH 2 TIMES A DAY Rx Instructions: TAKE ONE TABLET BY MOUTH 2 TIMES A DAY Spiriva with HandiHaler 18 mcg capsule, w/inhalation device 1 cap inhalation DAILY 90 Days Qty: 90 3RF Rx Instructions: puncture 1 cap using device; one dose = 2 inhalations isosorbide mononitrate 30 mg tablet extended release 24 hr See Rx Instructions .ROUTE .COMPLEX Qty: 90 3RF Dose Instruction: TAKE ONE TABLET BY MOUTH ONCE A DAY Rx Instructions: TAKE ONE TABLET BY MOUTH ONCE A DAY lisinopril 5 mg tablet See Rx Instructions .ROUTE .COMPLEX Qty: 90 4RF Dose Instruction: TAKE ONE TABLET BY MOUTH ONCE A DAY FOR HYPERTENSION Rx Instructions: TAKE ONE TABLET BY MOUTH ONCE A DAY FOR HYPERTENSION ergocalciferol (vitamin D2) 1,250 MCG capsule 50,000 mcg PO WEEKLY lidocaine 5 % adhesive patch,medicated 1 patch topical DAILY Qty: 15 0RF Rx Instructions: leave on most painful area for up to 12 hrs insulin glargine 100 UNIT/ML insulin pen 15 units SQ HS empagliflozin 25 MG tablet 25 mg PO DAILY methocarbamol 500 MG tablet 500 mg PO BID PRN (Reason: Moderate To Severe Pain) Qty: 20 0RF Referrals Follow up/Referrals: Philip Khan MD [Primary Care Provider] - See instructions Activity Restrictions/Add. Instructions Additional Instructions/Restrictions: At this time it was felt you are safe to be discharged home. If new or worsening symptoms please do not hesitate to return the emergency department. Please follow-up with your family doctor on an outpatient basis for continued evaluation if symptoms persist. Clinical Impressions Clinical Impression: Acute flank pain Instructions Patient Instructions: DI for Acute Abdominal Pain Discharge ED Provider: Jean Carlos Smith General Adult HPI General Chief complaint: Abdominal Pain Stated complaint: stomach pain, Lt side pain, diarrhea Time Seen by Provider: 01/28/23 16:03 Mode of Arrival: Ambulatory
--- NOTE | 2023-01-28 16:28 | PC.NURSE ---
checked on pt and updated him that we still have no bed available, nothing at this time needed
--- NOTE | 2023-01-28 16:31 | PC.NURSE ---
[employer] Bernardo going to place kellee in pt
[2023-01-28 17:00] LABS: Basophils % 0.4 % (0.1-2.0); Eosinophils # 0.2 K/mm3 (0.0-0.4); Eosinophils % 2.2 % (0.1-12.0); Hematocrit 44.4 % (42.0-52.0); Hemoglobin 14.3 g/dL (14.1-18.0); Lymphocytes # 1.1 K/mm3 (0.7-4.5); Lymphocytes % 15.3 % (10-50); Mean Corpuscular HGB Conc 32.1 g/dL (31.8-35.4); Mean Corpuscular Hemoglobin 31.5 pg (27.0-31.2); Mean Corpuscular Volume 98.1 fl (80-94); Mean Platelet Volume 7.8 fl (7.4-10.4); Monocytes # 0.4 K/mm3 (0.1-1.0); Monocytes % 5.2 % (1.7-9.3); Neutrophils # 5.7 K/mm3 (1.8-7.8); Neutrophils % 76.8 % (37.0-80.0); Platelet Count 322 K/mm3 (142-424); Red Blood Count 4.53 M/mm3 (4.60-6.20); Red Cell Distribution Width 13.1 % (11.5-17.5); White Blood Count 7.4 K/mm3 (4.8-10.8)
--- NOTE | 2023-01-28 17:02 | PC.NURSE ---
pt was moved to room 8
[2023-01-28 17:05] LABS: Alanine Aminotransferase 25 U/L (12-78); Albumin Level 4.9 g/dl (3.5-5.0); Albumin/Globulin Ratio 1.4 (1.1-1.8); Alkaline Phosphatase 80 U/L (38-126); Anion Gap 16.5 mEq/L (5-15); Aspartate Amino Transferase 30 U/L (17-59); Bilirubin,Total 0.8 mg/dl (0.2-1.3); Blood Urea Nitrogen 21 mg/dl (9-20); Carbon Dioxide 22 mmol/L (22.0-30.0); Chloride 102 mmol/L (98-107); Creatinine Clearance Estimated 97 mL/min (50-200); Estimated Glomerular Filt Rate 62 ml/min (>60); GFR (African American) 75 ML/MIN (>60); Globulin 3.5 g/dL (1.3-3.2); Glucose 206 mg/dl (74-100); Potassium 4.5 mmoL/L (3.5-5.1); Sodium 136 mmol/L (136-145); Total Protein,Serum 8.4 g/dl (6.3-8.2)
[2023-01-28 17:42] LABS: Lipase 44 U/L (23-300)
[2023-01-28 18:00] VITALS: BP 120/78; PULSE 64; O2SAT 98
[2023-01-28 18:30] VITALS: BP 117/70; PULSE 61; O2SAT 97
[2023-01-28 19:00] VITALS: BP 127/75; PULSE 63; O2SAT 99
--- NOTE | 2023-01-28 19:29 | PC.NURSE ---
checked on pt nothing needed at this time,call light at bs
[2023-01-28 19:30] VITALS: BP 115/73; PULSE 62; O2SAT 98
[2023-01-28 20:37] VITALS: BP 110/70; PULSE 74; RESP 18; TEMP 36.9; O2SAT 95
== END 2023-01-28 20:45 | disposition home or self-care (01) ==
PROVIDERS: Emergency Provider Emergency Medicine; PCP Internal Medicine Adolescent Medicine
DX: R10.32 Left lower quadrant pain (principal); J44.9 Chronic obstructive pulmonary disease, unspecified; G47.33 Obstructive sleep apnea (adult) (pediatric); I20.9 Angina pectoris, unspecified; Z87.891 Personal history of nicotine dependence; E11.65 Type 2 diabetes mellitus with hyperglycemia; Z79.4 Long term (current) use of insulin; I10 Essential (primary) hypertension
CPT/HCPCS: 71260; 74177; 80053; 81001; 83690; 85025; 96374; 96375; 99284; J0131; J2405; Q9967

== ENCOUNTER 2023-02-06 19:56 | Emergency (ER) | payer BC, SELFPAY ==
[2023-02-06 19:56] VITALS: BP 114/62; PULSE 66; RESP 16; TEMP 37.1; O2SAT 99; BMI 36.6
--- NOTE | 2023-02-06 20:37 | HMH.EDGENADL ---
Discharge Plan Disposition Patient Disposition: Home, Self-Care Prescriptions Prescriptions: New prednisone 20 mg tablet 40 mg PO BID 5 Days Qty: 20 0RF methocarbamol 750 mg tablet 1,500 mg PO TID 5 Days Qty: 30 0RF No Action oxycodone-acetaminophen 10-325 mg tablet 1 tab PO TID gabapentin 800 mg tablet 800 mg PO TID (DME) OneTouch Ultra Test Strip See Rx Instructions .ROUTE .MEDSUPPLY Qty: 10 Rx Instructions: As directed (DME) pen needle, diabetic [BD Ultra-Fine Short Pen Needle] 31 gauge x 5/16 needle See Rx Instructions .ROUTE .MEDSUPPLY Qty: 1200 Rx Instructions: As directed Januvia 100 mg tablet 100 mg PO DAILY benzonatate 100 mg capsule 100 mg PO TID PRN (Reason: cough) Qty: 30 1RF torsemide 100 mg tablet 50 mg PO DAILY Qty: 90 3RF Rx Instructions: TAKE 1/2 TABLET BY MOUTH ONCE A DAY spironolactone 50 mg tablet See Rx Instructions .ROUTE .COMPLEX Qty: 90 1RF Dose Instruction: TAKE ONE TABLET BY MOUTH ONCE A DAY Rx Instructions: TAKE ONE TABLET BY MOUTH ONCE A DAY metoprolol tartrate 25 mg tablet See Rx Instructions .ROUTE .COMPLEX Qty: 180 3RF Dose Instruction: TAKE ONE TABLET BY MOUTH 2 TIMES A DAY FOR HYPERTENSION Rx Instructions: TAKE ONE TABLET BY MOUTH 2 TIMES A DAY FOR HYPERTENSION atorvastatin 20 mg tablet See Rx Instructions .ROUTE .COMPLEX Qty: 30 1RF Dose Instruction: TAKE ONE TABLET BY MOUTH ONCE A DAY Rx Instructions: TAKE ONE TABLET BY MOUTH ONCE A DAY albuterol sulfate 90 mcg/actuation HFA aerosol inhaler 2 inh IH QID PRN (Reason: shortness of breath or wheezing) 90 Days Qty: 8.5 2RF ranolazine 1,000 mg tablet extended release 12 hr See Rx Instructions .ROUTE .COMPLEX Qty: 90 1RF Dose Instruction: TAKE ONE TABLET BY MOUTH 2 TIMES A DAY Rx Instructions: TAKE ONE TABLET BY MOUTH 2 TIMES A DAY Spiriva with HandiHaler 18 mcg capsule, w/inhalation device 1 cap inhalation DAILY 90 Days Qty: 90 3RF Rx Instructions: puncture 1 cap using device; one dose = 2 inhalations isosorbide mononitrate 30 mg tablet extended release 24 hr See Rx Instructions .ROUTE .COMPLEX Qty: 90 3RF Dose Instruction: TAKE ONE TABLET BY MOUTH ONCE A DAY Rx Instructions: TAKE ONE TABLET BY MOUTH ONCE A DAY lisinopril 5 mg tablet See Rx Instructions .ROUTE .COMPLEX Qty: 90 4RF Dose Instruction: TAKE ONE TABLET BY MOUTH ONCE A DAY FOR HYPERTENSION Rx Instructions: TAKE ONE TABLET BY MOUTH ONCE A DAY FOR HYPERTENSION clopidogrel 75 mg tablet See Rx Instructions .ROUTE .COMPLEX Qty: 90 4RF Dose Instruction: TAKE ONE TABLET BY MOUTH ONCE A DAY Rx Instructions: TAKE ONE TABLET BY MOUTH ONCE A DAY ergocalciferol (vitamin D2) 1,250 MCG capsule 50,000 mcg PO WEEKLY lidocaine 5 % adhesive patch,medicated 1 patch topical DAILY Qty: 15 0RF Rx Instructions: leave on most painful area for up to 12 hrs insulin glargine 100 UNIT/ML insulin pen 15 units SQ HS empagliflozin 25 MG tablet 25 mg PO DAILY methocarbamol 500 MG tablet 500 mg PO BID PRN (Reason: Moderate To Severe Pain) Qty: 20 0RF Referrals Follow up/Referrals: Philip Khan MD [Primary Care Provider] - See instructions Activity Restrictions/Add. Instructions Additional Instructions/Restrictions: Call your family doctor to establish care for this visit to the emergency department and schedule follow-up within 48 hours to ensure improvement. If you have any worsening of your condition or any other concerning signs or symptoms, return to the emergency department or your primary care doctor for further evaluation. Clinical Impressions Clinical Impression: Back Pain Instructions Patient Instructions: DI for Low Back Pain Discharge ED Provider: Nilson Davis General Adult [facility] General Chief complaint: Back P
[2023-02-06 20:55] VITALS: BP 118/81; PULSE 61; RESP 16; TEMP 37.1; O2SAT 99
== END 2023-02-06 20:56 | disposition home or self-care (01) ==
PROVIDERS: Emergency Provider Emergency Medicine; PCP Internal Medicine Adolescent Medicine
DX: M54.42 Lumbago with sciatica, left side (principal); G89.29 Other chronic pain; J44.9 Chronic obstructive pulmonary disease, unspecified; E11.9 Type 2 diabetes mellitus without complications; G47.33 Obstructive sleep apnea (adult) (pediatric); I20.8 Other forms of angina pectoris; Z87.891 Personal history of nicotine dependence
CPT/HCPCS: 96372; 99283

== ENCOUNTER → 2023-03-31 16:49 | Outpatient (CLI) | payer BC, SELFPAY ==
[2023-03-31 17:40] LABS: Amphetamine/Metha Screen,Urine Negative ng/ml (<1000)
[2023-03-31 17:41] LABS: Barbiturates Screen,Urine Negative ng/ml (<200); Benzodiazepines Screen,Urine Negative ng/ml (<200)
[2023-03-31 17:42] LABS: Cannabinoid Screen,Urine Positive ng/ml (<50)
[2023-03-31 17:43] LABS: Cocaine Screen,Urine Negative ng/ml (<300); Methadone Screen,Urine Negative ng/ml (<300)
[2023-03-31 17:44] LABS: Opiate Screen,Urine Negative ng/ml (<300); Phencyclidine Screen,Urine Negative ng/ml (<25)
== END ==
PROVIDERS: PCP Emergency Medicine; Visit Provider Emergency Medicine
DX: F41.9 Anxiety disorder, unspecified (principal)
CPT/HCPCS: 80305

== ENCOUNTER 2023-04-16 13:38 | Outpatient (CLI) | payer BC, SELFPAY ==
--- NOTE | 2023-04-16 13:48 | PC.NURSE ---
1348-collected ambulatory labs via venipuncture stick in left ac;pt d/c home.
[2023-04-16 14:04] LABS: Chloride 100 mmol/L (98-107); Potassium 4.1 mmoL/L (3.5-5.1); Sodium 137 mmol/L (136-145)
[2023-04-16 14:06] LABS: Bilirubin,Unconjugated 0.4 mg/dL (0.0-1.1); Blood Urea Nitrogen 38 mg/dl (9-20); Estimated Glomerular Filt Rate 25 ml/min (>60); GFR (African American) 31 ML/MIN (>60)
[2023-04-16 14:07] LABS: Alanine Aminotransferase 28 U/L (12-78); Albumin Level 4.9 g/dl (3.5-5.0); Alkaline Phosphatase 77 U/L (38-126); Anion Gap 15.1 mEq/L (5-15); Aspartate Amino Transferase 28 U/L (17-59); Bilirubin,Direct 0.3 mg/dl (0.0-0.4); Bilirubin,Indirect 0.4 mg/dL (0.0-0.9); Bilirubin,Total 0.7 mg/dl (0.2-1.3); Calcium 8.9 mg/dl (8.4-10.2); Carbon Dioxide 26 mmol/L (22.0-30.0); Chol/HDL Ratio 4.2 (1-3.5); Cholesterol 129 mg/dl (140-200); Glucose 154 mg/dl (74-100); HDL Cholesterol 31 mg/dl (40-60); Triglycerides 174 mg/dl (30-150); VLDL Cholesterol 35 mg/dL (0-40)
[2023-04-16 14:13] LABS: Basophils % 0.6 % (0.1-2.0); Eosinophils # 0.2 K/mm3 (0.0-0.4); Eosinophils % 4.2 % (0.1-12.0); Hematocrit 41.6 % (42.0-52.0); Hemoglobin 14.1 g/dL (14.1-18.0); Lymphocytes # 1.5 K/mm3 (0.7-4.5); Lymphocytes % 25.8 % (10-50); Mean Corpuscular HGB Conc 33.8 g/dL (31.8-35.4); Mean Corpuscular Hemoglobin 32.9 pg (27.0-31.2); Mean Corpuscular Volume 97.3 fl (80-94); Monocytes # 0.6 K/mm3 (0.1-1.0); Monocytes % 10.1 % (1.7-9.3); Neutrophils # 3.4 K/mm3 (1.8-7.8); Neutrophils % 59.3 % (37.0-80.0); Platelet Count 224 K/mm3 (142-424); Red Blood Count 4.27 M/mm3 (4.60-6.20); Red Cell Distribution Width 13.3 % (11.5-17.5); White Blood Count 5.7 K/mm3 (4.8-10.8)
[2023-04-16 14:18] LABS: Direct LDL Cholesterol 70.76 mg/dL (100-129)
[2023-04-16 14:38] LABS: Thyroid Stimulating Hormone 2.97 uIU/mL (0.465-4.68)
[2023-04-16 15:05] LABS: Free T4 (Free Thyroxine) 1.64 ng/dl (0.78-2.19)
== END 2023-04-16 13:50 | disposition home or self-care (01) ==
LOC: LAB 13:39
PROVIDERS: PCP Emergency Medicine; Visit Provider Nurse Practitioner
DX: R06.02 Shortness of breath (principal); R06.00 Dyspnea, unspecified; R07.9 Chest pain, unspecified; I20.89 Other forms of angina pectoris; I50.30 Unspecified diastolic (congestive) heart failure; E78.5 Hyperlipidemia, unspecified; E66.9 Obesity, unspecified; Z68.39 Body mass index [BMI] 39.0-39.9, adult; Z79.899 Other long term (current) drug therapy
CPT/HCPCS: 36415; 80048; 80061; 80076; 83735; 84439; 84443; 85025

== ENCOUNTER → 2023-04-23 13:31 | Outpatient (CLI) | payer BC, SELFPAY ==
--- NOTE | 2023-04-23 13:35 | CA_ITS ---
APPROVED REPORT EXAM: Comprehensive 2D, Doppler, and color-flow Echocardiogram [employer] Specialist: Michelle El, GIACOMO, RVS Ht: 5 ft 5 in Wt: 238lbs BSA: 2.13 BP: 93/61 mmHg Indications: Dyspnea, COPD, Smoker, ASCVD, HTN, Murmur 2D Dimensions IVSd 0.92 cm LVEF (Visual) 63.00 % PWd 0.83 cm LA Volume 49.90 mL LVDd 3.92 cm LA Volume Index [id number] mL/m2 (M/F) 16-34 LVDs 2.71 cm M-Mode Dimensions RVDd 2.57 cm (0.9-2.6) LA Diam 4.47 cm (1.9-4.0) LVDd 5.04 cm (3.5-5.7) Ao Diam 2.91 cm (2.0-3.7) LVDs 3.82 cm (3.5-5.7) IVSd 0.93 cm (0.6-1.1) PWd 1.14 cm (0.6-1.1) EF (Teich) 48.00% EPSs 0.61 cm FS 24.20% EDV (Teich) 120.50 mL TAPSE 2.51 (<1.7) ESV (Teich) 62.70 mL LV Diastology E Decel Time 233.00 (160-240 msec) E/A Ratio 1.55 MED E' 6.40 (< 7 cm/sec) MED A' 8.10 cm/s E'/MED E' Ratio 11.02 (>14) LAT E' 10.20 (<10 cm/sec) LAT A' 10.00 cm/s E/LAT E' Ratio 6.91 (>14) Aortic Valve LVOT Max 81.00 (70-110 cm/s) LVOT VTI 17.58 cm AoV Peak Missael. 108.00 (50-130 cm/s) AI PHT 667.00 ms AO Peak GR. 4.70 mmHg AO Mean GR. 2.40 (<5 mmHg) AO VTI 22.72 (18-25 cm) Mitral Valve MV A Velocity 46.00 (40-130 cm/s) E/A Ratio 1.55 MV Decel. Time 233.00 (160-240 ms) Pulmonary Valve LA End VMAX 189.00 cm/s Left Ventricle The left ventricle is normal size. The left ventricular systolic function is normal. The left ventricular ejection fraction is within the normal range. There is normal left ventricular wall thickness. There is normal LV segmental wall motion. The left ventricular diastolic function is normal. LVEF is 55%. Right Ventricle The right ventricle is normal size. The right ventricular systolic function is normal. Atria The left atrium size is normal. The right atrium size is normal. There is no Doppler evidence of interatrial shunt. Aortic Valve The aortic valve is mildly thickened. There is no aortic valvular stenosis. Mild aortic regurgitation. Mitral Valve The mitral valve leaflets are mildly thickened. No evidence of mitral valve stenosis. Mild mitral regurgitation. Tricuspid Valve The tricuspid valve leaflets are thin and pliable. Trace tricuspid regurgitation. There is insufficient TR jet to estimate RVSP. Pulmonic Valve The pulmonary valve is normal in structure. Trace pulmonic regurgitation. Great Vessels The aortic root is normal in size. The ascending aorta is normal in size. IVC is normal in size and collapses >50% with inspiration. Pericardium There is no pericardial effusion. Other Information Study Quality: Fair Conclusion Normal biventricular systolic function. Mild AI, mild MR. Electronically signed by : Zenobia Curiel MD 05/04/2023 18:44:23
== END ==
PROVIDERS: PCP Emergency Medicine; Visit Provider Nurse Practitioner
DX: E78.5 Hyperlipidemia, unspecified (principal); I11.9 Hypertensive heart disease without heart failure; I25.119 Atherosclerotic heart disease of native coronary artery with unspecified angina pectoris; R06.00 Dyspnea, unspecified; R06.02 Shortness of breath; R07.9 Chest pain, unspecified; E66.9 Obesity, unspecified; Z68.39 Body mass index [BMI] 39.0-39.9, adult; F17.200 Nicotine dependence, unspecified, uncomplicated
CPT/HCPCS: 93306

== ENCOUNTER → 2023-05-19 13:47 | Outpatient (CLI) | payer BC, SELFPAY ==
[2023-05-19 15:17] LABS: Anion Gap 10.4 mEq/L (5-15); Blood Urea Nitrogen 14 mg/dl (9-20); Carbon Dioxide 24 mmol/L (22.0-30.0); Chloride 105 mmol/L (98-107); Estimated Glomerular Filt Rate 68 ml/min (>60); GFR (African American) 83 ML/MIN (>60); Glucose 170 mg/dl (74-100); Potassium 4.4 mmoL/L (3.5-5.1); Sodium 135 mmol/L (136-145)
== END ==
PROVIDERS: PCP Internal Medicine; Visit Provider Nurse Practitioner Family
DX: R79.89 Other specified abnormal findings of blood chemistry (principal); I25.10 Atherosclerotic heart disease of native coronary artery without angina pectoris; R06.00 Dyspnea, unspecified; F17.200 Nicotine dependence, unspecified, uncomplicated
CPT/HCPCS: 36415; 80048

== ENCOUNTER → 2023-05-20 10:01 | Outpatient (CLI) | payer BC, SELFPAY ==
[2023-05-20 19:38] LABS: Amphetamine/Metha Screen,Urine Negative ng/ml (<1000)
[2023-05-20 19:42] LABS: Barbiturates Screen,Urine Negative ng/ml (<200); Cannabinoid Screen,Urine Negative ng/ml (<50)
[2023-05-20 19:43] LABS: Benzodiazepines Screen,Urine Negative ng/ml (<200)
[2023-05-20 19:44] LABS: Cocaine Screen,Urine Negative ng/ml (<300); Opiate Screen,Urine Negative ng/ml (<300)
[2023-05-20 19:45] LABS: Methadone Screen,Urine Negative ng/ml (<300)
[2023-05-20 19:46] LABS: Phencyclidine Screen,Urine Negative ng/ml (<25)
[2023-05-27 09:19] LABS: Alprazolam Negative (Cutoff=100); Benzodiazepines Negative ng/mL (Cutoff=100); Clonazepam Negative (Cutoff=100); Flurazepam Negative (Cutoff=100); Lorazepam Negative (Cutoff=100); Midazolam Negative (Cutoff=100); Opiates Negative ng/mL (Cutoff=100); Temazepam Negative (Cutoff=100); Triazolam Negative (Cutoff=100)
== END ==
PROVIDERS: PCP Family Medicine; Visit Provider Family Medicine
DX: Z79.899 Other long term (current) drug therapy (principal)
CPT/HCPCS: 80305; 80346; 80361; G0480

== ENCOUNTER → 2023-05-21 13:18 | Outpatient (CLI) | payer BC, SELFPAY | PROVIDERS: PCP Family Medicine; Visit Provider Family Medicine | DX: Z79.899 Other long term (current) drug therapy (principal) | CPT/HCPCS: 80346; 80361; G0480 ==

== ENCOUNTER → 2023-05-27 23:16 | Outpatient (CLI) | payer BC, SELFPAY ==
[2023-05-27 21:29] LABS: Benzodiazepines Screen,Urine Negative ng/ml (<200)
[2023-05-27 21:30] LABS: Amphetamine/Metha Screen,Urine Negative ng/ml (<1000)
[2023-05-27 21:31] LABS: Barbiturates Screen,Urine Negative ng/ml (<200); Methadone Screen,Urine Negative ng/ml (<300)
[2023-05-27 21:32] LABS: Cannabinoid Screen,Urine Negative ng/ml (<50)
[2023-05-27 21:33] LABS: Cocaine Screen,Urine Negative ng/ml (<300)
[2023-05-27 21:35] LABS: Opiate Screen,Urine Positive ng/ml (<300)
[2023-05-27 21:36] LABS: Phencyclidine Screen,Urine Negative ng/ml (<25)
[2023-06-03 18:07] LABS: Gabapentin,Urine 117.5 ug/mL (.)
[2023-06-06 18:19] LABS: Alprazolam Negative (Cutoff=100); Benzodiazepines Negative ng/mL (Cutoff=100); Clonazepam Negative (Cutoff=100); Flurazepam Negative (Cutoff=100); Lorazepam Negative (Cutoff=100); Midazolam Negative (Cutoff=100); Opiates Negative ng/mL (Cutoff=100); Temazepam Negative (Cutoff=100); Triazolam Negative (Cutoff=100)
== END ==
LOC: LAB.DROPOF 23:17
PROVIDERS: Family Medicine; PCP Internal Medicine; Visit Provider Internal Medicine
DX: Z79.899 Other long term (current) drug therapy (principal)
CPT/HCPCS: 80305; 80307; 80346; 80361; G0480

== ENCOUNTER 2023-06-03 18:56 | Emergency (ER) | payer BC, SELFPAY ==
[2023-06-03 20:23] VITALS: BP 122/79; PULSE 73; RESP 18; TEMP 36.7; O2SAT 98; BMI 38.2
--- NOTE | 2023-06-03 20:29 | HMH.EDGENADL ---
Discharge Plan Disposition Patient Disposition: Home, Self-Care Prescriptions Prescriptions: New ibuprofen 800 mg tablet 800 mg PO TID PRN (Reason: pain) 7 Days Qty: 20 0RF cyclobenzaprine 5 mg tablet 5 mg PO TID PRN (Reason: muscle spasm) 5 Days Qty: 15 0RF No Action pantoprazole 20 mg tablet,delayed release (DR/EC) 20 mg PO BID rosuvastatin 40 mg tablet 40 mg PO DAILY oxycodone 10 mg tablet 10 mg PO TID famotidine 20 mg tablet 20 mg PO DAILY isosorbide mononitrate 60 mg tablet extended release 24 hr 60 mg PO DAILY Qty: 30 5RF (DME) OneTouch Ultra Test Strip See Rx Instructions .ROUTE .MEDSUPPLY Qty: 10 Rx Instructions: As directed (DME) pen needle, diabetic [BD Ultra-Fine Short Pen Needle] 31 gauge x 5/16 needle See Rx Instructions .ROUTE .MEDSUPPLY Qty: 1200 Rx Instructions: As directed Januvia 100 mg tablet 100 mg PO DAILY tiotropium bromide [Spiriva with HandiHaler] 18 mcg capsule, w/inhalation device 1 cap inhalation DAILY 90 Days Qty: 90 3RF Rx Instructions: puncture 1 cap using device; one dose = 2 inhalations empagliflozin 25 mg tablet 25 mg PO DAILY Qty: 90 3RF torsemide 100 mg tablet 100 mg PO DAILY Qty: 90 3RF metoprolol tartrate 25 mg tablet See Rx Instructions .ROUTE .COMPLEX Qty: 180 3RF Dose Instruction: TAKE ONE TABLET BY MOUTH 2 TIMES A DAY FOR HYPERTENSION Rx Instructions: TAKE ONE TABLET BY MOUTH 2 TIMES A DAY FOR HYPERTENSION albuterol sulfate 90 mcg/actuation HFA aerosol inhaler 2 inh IH QID PRN (Reason: shortness of breath or wheezing) 90 Days Qty: 8.5 2RF lisinopril 5 mg tablet See Rx Instructions .ROUTE .COMPLEX Qty: 90 4RF Dose Instruction: TAKE ONE TABLET BY MOUTH ONCE A DAY FOR HYPERTENSION Rx Instructions: TAKE ONE TABLET BY MOUTH ONCE A DAY FOR HYPERTENSION clopidogrel 75 mg tablet See Rx Instructions .ROUTE .COMPLEX Qty: 90 4RF Dose Instruction: TAKE ONE TABLET BY MOUTH ONCE A DAY Rx Instructions: TAKE ONE TABLET BY MOUTH ONCE A DAY spironolactone 50 mg tablet See Rx Instructions .ROUTE .COMPLEX Qty: 90 1RF Dose Instruction: TAKE ONE TABLET BY MOUTH ONCE A DAY Rx Instructions: TAKE ONE TABLET BY MOUTH ONCE A DAY ergocalciferol (vitamin D2) 1,250 mcg (50,000 unit) capsule See Rx Instructions .ROUTE .COMPLEX Qty: 4 1RF Dose Instruction: TAKE ONE CAPSULE BY MOUTH EVERY WEEK Rx Instructions: TAKE ONE CAPSULE BY MOUTH EVERY WEEK furosemide [Lasix] 20 mg tablet 20 mg PO DAILY Qty: 90 3RF quetiapine 25 mg tablet See Rx Instructions .ROUTE .COMPLEX Qty: 30 0RF Dose Instruction: TAKE ONE TABLET BY MOUTH AT BEDTIME Rx Instructions: TAKE ONE TABLET BY MOUTH AT BEDTIME clonazepam 0.5 mg tablet 0.5 mg PO BID Qty: 60 0RF gabapentin 800 mg tablet 1,200 mg PO TID Qty: 135 0RF lidocaine 5 % adhesive patch,medicated 1 patch topical DAILY Qty: 15 0RF Rx Instructions: leave on most painful area for up to 12 hrs Referrals Follow up/Referrals: Provider,Referral, [Primary Care Provider] - See instructions Aaron Damon MD [Staff Physician] - See instructions Activity Restrictions/Add. Instructions Additional Instructions/Restrictions: You have previously been instructed many times with your chronic lower back pain steroids and Toradol shot were given in the emergency department with your antiplatelet agents including aspirin and Plavix you are high risk for bleeding with persistent use of NSAIDs but ibuprofen has been prescribed to you and you may take it with the understanding that it could increase your risk of bleeding. Muscle laxer has also been prescribed. Please continue to follow-up with your neurosurgeon or your primary care doctor regarding your chronic pain. Return to the emergency department with any lower extremity paralysis urinary or bowel incontinence or other concerns. Clinical Impressions Clinical Impression: Chronic low back pain with sciatica Instructions Patient Instructions: DI for Low Back Pain Discharge ED Provider: Ivelisse Flores General Adult [facility] General Chief complaint: Back Pain/Injury Stated complaint: back pain, no accident Time Seen by Provider: 06/03/23 20:19 Mode of Arrival: Wheelchair Source of Information: Patient Limitations: No Limitations Description of Symptoms (Recalled from ER Triage Doc. by RN): pt c/o R lower back pain that radiates down his R leg. pt states the pain is stabbing in nature and a 15/10. pt states this has been ongoing since 1800. pt followed up with a neurosurgeon who told the pt he was not a surgical case. this is a chronic problem. History of Present Illness HPI narrative: Patient is a 62-year-old male who is becoming well-known to our emergency department has been here numerous times for chronic low back pain which he describes as being on the right side radiating down his right leg. He has had MRIs performed followed up with neurosurgery was told this is not a surgical problem and that this is a chronic problem. No new or different symptoms including paralysis urinary or bowel incontinence saddle anesthesia etc. Related Data Home Medications Medication Instructions Recorded Confirmed blood sugar diagnostic (OneTouch #10 ea 11/28/21 05/28/23 Ultra Test strips) pen needle, diabetic 31 gauge x #1,200 ea 11/28/21 05/28/2310/21 (BD Ultra-Fine Short Pen Needle) sitagliptin phosphate 100 mg 100 mg PO DAILY 11/28/21 05/28/23 tablet (Januvia) famotidine 20 mg tablet 20 mg PO DAILY 03/31/23 05/28/23 oxycodone 10 mg tablet 10 mg PO TID 03/31/23 05/28/23 pantoprazole 20 mg tablet,delayed 20 mg PO BID 03/31/23 05/28/23 release rosuvastatin 40 mg tablet 40 mg PO DAILY 03/31/23 05/28/23 Previous Rx's Medication Instructions Recorded metoprolol tartrate 25 mg tablet See Rx Instructions .Route 07/10/22 .COMPLEX #180 tabs albuterol sulfate 90 mcg/actuation 2 inh inhalation QID PRN shortness 08/14/22 aerosol inhaler of breath or wheezing 90 days #8.5 grams lidocaine 5 % topical patch 1 patch topical DAILY #15 ea 10/12/22 lisinopril 5 mg tablet See Rx Instructions .Route 12/17/22 .COMPLEX #90 tabs clopidogrel 75 mg tablet See Rx Instructions .Route 02/04/23 .COMPLEX #90 tabs spironolactone 50 mg tablet See Rx Instructions .Route 02/24/23 .COMPLEX #90 tabs torsemide 100 mg tablet 100 mg PO DAILY High blood 04/09/23 pressure #90 tabs ergocalciferol (vitamin D2) 1,250 See Rx Instructions .Route 04/14/23 mcg (50,000 unit) capsule .COMPLEX #4 caps isosorbide mononitrate 60 mg 60 mg PO DAILY #30 tabs 05/19/23 tablet,extended release 24 hr furosemide 20 mg tablet (Lasix) 20 mg PO DAILY #90 tabs 05/20/23 quetiapine 25 mg tablet See Rx Instructions .Route 05/26/23 .COMPLEX #30 tabs empagliflozin 25 mg tablet 25 mg PO DAILY Diabetes #90 tabs 05/27/23 tiotropium bromide 18 mcg capsule 1 cap inhalation DAILY 90 days #90 05/28/23 with inhalation device (Spiriva puffs with HandiHaler) clonazepam 0.5 mg tablet 0.5 mg PO BID #60 tabs 05/29/23 gabapentin 800 mg tablet 1,200 mg PO TID #135 tabs 05/29/23 cyclobenzaprine 5 mg tablet 5 mg PO TID PRN muscle spasm 5 06/03/23 days #15 tabs ibuprofen 800 mg tablet 800 mg PO TID PRN pain 7 days #20 06/03/23 tabs Allergies Allergy/AdvReac Type Severity Reaction Status Date / Time naproxen [NAPROXEN] Allergy Mild NA-NAUSEA/V Verified 05/28/23 10:16 OMITING tramadol [TRAMADOL] Allergy Mild NA-NAUSEA Verified 05/28/23 10:16 [facility] Disclaimer: The information contained in this section may have been updated after the patient was seen, as this information can be updated by other users. 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 Mediastinal lymphadenopathy Mediastinal lymphadenopathy Obstructive sleep apnea (adult) (pediatric) YAMILE (obstructive sleep apnea) Other emphysema Pulmonary emphysema Stopped smoking with greater than 30 pack year history Stopped smoking with greater than 30 pack year history Typical angina 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 H/O arthroscopy of knee H/O arthroscopy of shoulder Family History Other No significant family history Social History Smoking Status: Never smoker second hand exposure: No alcohol intake: never counseling provided: provider counseling substance use type: marijuana current occupational status: other Travel in the last 8 weeks: None household members: children housing: apartment current occupational exposures/hazards: No caffeine: No ROS Obtained: Yes All systems reviewed & no additional complaints except as documented Physical Exam General General appearance: alert Respiratory Respiratory exam: Present normal lung sounds bilaterally Cardiovascular Cardiovascular exam: Present regular rate; Absent tachycardia Back Exam Back exam: Present other (normal RLE strength and sensation, no saddle anesthesia, but is having signifncant pain and difficulty walking ) Neurological Exam Neurological exam: Present alert and oriented X3 Medical Decision Making Salvador Inquiry Pt receiving controlled substance: No Vital Signs: 06/03/23 20:23 Temperature 98.1 F Temperature Source Oral Pulse Rate [Left] 73 Respiratory Rate 18 Blood Pressure [Right Arm] 122/79 Blood Pressure Mean [Right Arm] 93 Blood Pressure Source [Right Arm] Automatic Cuff Blood Pressure Position [Right Arm] Sitting 02 Sat by Pulse Oximetry 98 Oxygen Delivery Method Room Air Orders (Tests/Meds): ED MEDICATIONS Generic Name Dose Route Start Last Admin Trade Name Alia PRN Reason Stop Dose Admin Dexamethasone Sodium Phosphate 10 mg 06/03/23 20:23 Dexamethasone 4mg/Ml 1ml Vial IM 06/03/23 20:24 ONCE ONE Ketorolac Tromethamine 60 mg 06/03/23 20:23 Ketorolac 60mg/2ml Vial IM 06/03/23 20:24 ONCE ONE Medical Decision Narrative: 62-year-old male with extensive evaluation of his chronic lower back pain with sciatica including MRIs and neurosurgical evaluation deemed not a surgical candidate we will treat him supportively today with steroids and Toradol shot which has given him improvement in the past. Also will be prescribed NSAIDs and a muscle laxer to go home with. He is aware that he could have increased bleeding given the fact that he is on antiplatelet agents and to take the NSAIDs at his own risk but that it could help his inflammatory symptoms. The steroid should help his symptoms as well. He has no signs or symptoms of cauda equina syndrome or any central compression at the moment. He was discharged in stable condition but in chronic pain as well we will also give him a referral to Dr. Damon our pain medicine specialist. Critical Care Critical Care Time Critical Care Time: No
[2023-06-03 20:41] VITALS: BP 0/0; PULSE 0; RESP 0; TEMP -17.7; TEMP 0
== END 2023-06-03 20:55 | disposition left against medical advice (07) ==
PROVIDERS: Emergency Provider Student in an Organized Health Care Education/Training Program
DX: M54.41 Lumbago with sciatica, right side (principal); J43.9 Emphysema, unspecified; I20.9 Angina pectoris, unspecified; E11.9 Type 2 diabetes mellitus without complications; G47.33 Obstructive sleep apnea (adult) (pediatric); Z87.891 Personal history of nicotine dependence
CPT/HCPCS: 96372; 99283

== ENCOUNTER 2023-06-11 06:45 | Outpatient (CLI) | payer BC, SELFPAY ==
--- NOTE | 2023-06-11 06:56 | CT_ITS ---
FINAL REPORT TECHNIQUE: Axial CT images were performed from the lung apices through the upper abdomen. Coronal reformats were submitted. This study was performed with techniques to keep radiation doses as low as reasonably achievable (ALARA). Individualized dose reduction techniques using automated exposure control or adjustment of mA and/or kV according to the patient's size were employed. CLINICAL HISTORY: LUNG CANCER COMPARISON: 01/28/2023 FINDINGS: There is no axillary adenopathy. There are several small mediastinal nodes. Heart size is normal. There is no pericardial or pleural effusion. No suspicious infiltrate or nodule is identified on lung window images. There is mild scarring and moderate emphysema. Posttreatment changes seen in the medial left thorax. There are several calcified granulomas in the right lower lobe. The patient is status post cholecystectomy. IMPRESSION: Evidence of posttreatment change in the medial left thorax. Scarring and emphysema. Reviewed, Interpreted and Dictated by Davis Mitchell III, MD Transcribed by Cady Becerra Authenticated and [facility]
== END 2023-06-11 23:59 ==
LOC: RAD 06:45
PROVIDERS: Visit Provider Internal Medicine Medical Oncology
DX: C34.92 Malignant neoplasm of unspecified part of left bronchus or lung (principal)
CPT/HCPCS: 71250

== ENCOUNTER 2023-07-07 07:22 | Day surgery (SDC) | payer BC, SELFPAY ==
[2023-07-03 16:39] VITALS: BMI 38.2
[2023-07-07] MEDS: LACTATED RINGERS 1000ML 1,000 ML 25 ML IV (07:35)
[2023-07-07 07:41] VITALS: BP 113/64; PULSE 68; RESP 18; TEMP 36.1; O2SAT 100
--- NOTE | 2023-07-07 08:08 | EXP.ANES.CKL ---
[facility] Disclaimer: The information contained in this section may have been updated after the patient was seen, as this information can be updated by other users. Medical History Abnormal result of cardiovascular function study Claudication COPD (chronic obstructive pulmonary disease) COPD mixed type Diabetes Dizziness Dyspnea Dyspnea on exertion Edema Elevated serum creatinine H/O malignant neoplasm of lung Hilar lymphadenopathy History of lung cancer in adulthood Hypotension Lightheaded long-term use of drug Mediastinal lymphadenopathy Mediastinal lymphadenopathy Obstructive sleep apnea (adult) (pediatric) YAMILE (obstructive sleep apnea) Other emphysema Pulmonary emphysema Stopped smoking with greater than 30 pack year history Stopped smoking with greater than 30 pack year history Typical angina 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 H/O arthroscopy of knee H/O arthroscopy of shoulder History of colonoscopy Family History Other No significant family history Social History Smoking Status: Never smoker second hand exposure: No alcohol intake: never counseling provided: provider counseling substance use type: marijuana current occupational status: other Travel in the last 8 weeks: None household members: children housing: apartment current occupational exposures/hazards: No caffeine: No H Anesthesia Checklist Patient Identification Patient Identification: Arm Band Structural Data Admitted From: Home Planned Operative Procedure/s: Colonoscopy Consent for Planned Operative Procedure(s) Verified: Yes Verified Documents: Surgical Consent and History and Physical NPO Status Verified Time NPO: 00:00 Additional verifications Anesthesia Reactions: No Hx Blood Transfusions: No Blood Transfusion Reaction: No Airway Assessment Mallampati Score:: Class II C-Spine Mobility Assessed: Yes TMJ Mobility Assessed: Yes Dentition: Edentulous Neurological Assessment Level of Consciousness: Awake, Alert and Appropriate Anesthesia Plan Anesthesia Risk discussed: Yes Anesthesia Plan: Verified ASA Class: III Anesthesia Type: MAC
--- NOTE | 2023-07-07 08:11 | HMH.SCOPE ---
Procedure: Date: 07/07/23 Patient Date of :: 1960 Procedure Performed:: Limited flexible sigmoidoscopy Indications:: History of colon polyps Note: Last colonoscopy in December 2019 was somewhat complicated by severe spasticity/lack of relaxation. Bowel preparation was fair to moderate. Multiple polyps throughout the colon were noted including large adenomatous polyps at 40 cm and at 20 cm. Performing Provider:: Deonte Robledo MD Referring Provider:: . Sedation:: Monitored anesthesia care Procedure:: After informed consent was obtained the patient was taken to the endoscopy suite. Sedation ensued after the patient was transferred to the left lateral decubitus position. Pulse, blood pressure, and oxygen saturation were monitored throughout the procedure. Digital rectal exam revealed no significant abnormality. The colonoscope was placed in position. The entire colon was evaluated. The colonoscope was carefully removed and the patient was transferred to recovery in stable condition. Please see findings and specimens below for detail. Findings:: Exceedingly poor bowel preparation Colonoscopy aborted secondary to exceedingly poor bowel preparation Specimens:: None Recommendations:: Colonoscopy with alternate/extended bowel preparation as soon as possible Complications:: Colonoscopy aborted secondary to exceedingly poor bowel preparation Estimated blood obtained (mL): 0 Colonoscopy Component Colonoscopy Component Was a colonoscopy performed during today's procedure?: Yes Recommended follow up colonoscopy of at least 10 years?: No If no, follow up colonoscopy recommended in ___ years?: (See above) Reason for not recommending >/= 10 yr follow-up interval?: (See above)
[2023-07-07 08:12] VITALS: O2SAT 100
[2023-07-07 08:21] LABS: POC Glucose,Bedside 123 (70-110)
[2023-07-07 08:26] VITALS: BP 109/63; PULSE 73; RESP 14; TEMP 36.2; O2SAT 100
[2023-07-07 08:36] VITALS: BP 119/69; PULSE 74; RESP 16; O2SAT 100
[2023-07-07 08:46] VITALS: BP 111/77; PULSE 76; RESP 16; O2SAT 98
== END 2023-07-07 08:46 | disposition home or self-care (01) ==
PROVIDERS: PCP Family Medicine; Visit Provider Surgery
PROC: 0DJD8ZZ Inspection of Lower Intestinal Tract, Via Natural or Artificial Opening Endoscopic (ICD-10-PCS; CPT 45330; principal; 2023-07-07 08:30)
DX: Z12.11 Encounter for screening for malignant neoplasm of colon (principal); Z86.010 Personal history of colon polyps; Z91.199 Patient's noncompliance with other medical treatment and regimen due to unspecified reason; E11.9 Type 2 diabetes mellitus without complications
CPT/HCPCS: 45378; 82962

== ENCOUNTER 2023-07-10 21:22 | Emergency (ER) | payer BC, SELFPAY ==
[2023-07-10 21:25] VITALS: BP 131/72; PULSE 90; RESP 16; TEMP 36.9; O2SAT 97; BMI 38.2
[2023-07-10 21:37] VITALS: PULSE 88
--- NOTE | 2023-07-10 21:49 | HMH.EDGENADL ---
Discharge Plan Disposition Patient Disposition: Home, Self-Care Prescriptions Prescriptions: New prednisone 20 mg tablet 20 mg PO DAILY 5 Days Qty: 5 0RF No Action rosuvastatin 40 mg tablet 40 mg PO DAILY oxycodone 10 mg tablet 10 mg PO TID famotidine 20 mg tablet 20 mg PO DAILY isosorbide mononitrate 60 mg tablet extended release 24 hr 60 mg PO DAILY Qty: 30 5RF gabapentin 800 mg tablet 800 mg PO TID lisinopril 5 mg tablet 5 mg PO DAILY Qty: 90 0RF metoprolol tartrate 25 mg tablet 25 mg PO BID Qty: 90 0RF pantoprazole 20 mg tablet,delayed release (DR/EC) 20 mg PO BID Qty: 90 0RF spironolactone 50 mg tablet 50 mg PO DAILY Qty: 90 0RF torsemide 100 mg tablet 100 mg PO DAILY Qty: 90 3RF (DME) OneTouch Ultra Test Strip See Rx Instructions .ROUTE .MEDSUPPLY Qty: 10 Rx Instructions: As directed (DME) pen needle, diabetic [BD Ultra-Fine Short Pen Needle] 31 gauge x 5/16 needle See Rx Instructions .ROUTE .MEDSUPPLY Qty: 1200 Rx Instructions: As directed Januvia 100 mg tablet 100 mg PO DAILY tiotropium bromide [Spiriva with HandiHaler] 18 mcg capsule, w/inhalation device 1 cap inhalation DAILY 90 Days Qty: 90 3RF Rx Instructions: puncture 1 cap using device; one dose = 2 inhalations empagliflozin 25 mg tablet 25 mg PO DAILY Qty: 90 3RF albuterol sulfate 90 mcg/actuation HFA aerosol inhaler 2 inh IH QID PRN (Reason: shortness of breath or wheezing) 90 Days Qty: 8.5 2RF quetiapine 25 mg tablet See Rx Instructions .ROUTE .COMPLEX Qty: 30 0RF Dose Instruction: TAKE ONE TABLET BY MOUTH AT BEDTIME Rx Instructions: TAKE ONE TABLET BY MOUTH AT BEDTIME ergocalciferol (vitamin D2) 1,250 mcg (50,000 unit) capsule See Rx Instructions .ROUTE .COMPLEX Qty: 10 0RF Dose Instruction: TAKE ONE CAPSULE BY MOUTH EVERY WEEK Rx Instructions: TAKE ONE CAPSULE BY MOUTH EVERY WEEK clopidogrel 75 mg tablet 75 mg PO DAILY Referrals Follow up/Referrals: Provider,Referral, MD [Primary Care Provider] - See instructions Activity Restrictions/Add. Instructions Additional Instructions/Restrictions: Call your family doctor to establish care for this visit to the emergency department and schedule follow-up within 48 hours to ensure improvement. If you have any worsening of your condition or any other concerning signs or symptoms, return to the emergency department or your primary care doctor for further evaluation. Wear wrist splints on both wrists while sleeping and actively using hands to prevent symptoms. Steroid each morning for the next 5 days. Clinical Impressions Clinical Impression: Carpal tunnel syndrome Discharge ED Provider: Nilson Davis General Adult HPI General Chief complaint: Extremity Problem,Nontraumatic Stated complaint: pain in both hands shaking Time Seen by Provider: 07/10/23 21:28 Mode of Arrival: Ambulatory Source of Information: Patient Limitations: No Limitations Description of Symptoms (Recalled from ER Triage Doc. by RN): pt reports bi-lat hand pain/cramps that move up both arms, left greater than right, reports starting earlier today, reports taking Tylenol, Aleve, and Motrin with no help, denies injury History of Present Illness HPI narrative: 62-year-old male no relevant medical history presenting with tingling in both hands. States that left worse than right associated with decreased panama hat blocker strength. Radiates from his fingertips up to his mid forearm. No associated trauma. Got worse yesterday while he was driving, continue to worsen today and is refractory to Tylenol, Aleve, Motrin, etc. Related Data Home Medications Medication Instructions Recorded Confirmed blood sugar diagnostic (OneTouch #10 ea 11/28/21 07/03/23 Ultra Test strips) pen needle, diabetic 31 gauge x #1,200 ea 11/28/21 07/03/2310/21 (BD Ultra-Fine Short Pen Needle) sitagliptin phosphate 100 mg 100 mg PO DAILY 11/28/21 07/03/23 tablet (Januvia) famotidine 20 mg tablet 20 mg PO DAILY 03/31/23 07/03/23 oxycodone 10 mg tablet 10 mg PO TID 03/31/23 07/03/23 rosuvastatin 40 mg tablet 40 mg PO DAILY 03/31/23 07/03/23 gabapentin 800 mg tablet 800 mg PO TID 06/16/23 07/03/23 clopidogrel 75 mg tablet 75 mg PO DAILY Blood Thinner 07/03/23 07/03/23 Previous Rx's Medication Instructions Recorded albuterol sulfate 90 mcg/actuation 2 inh inhalation QID PRN shortness 08/14/22 aerosol inhaler of breath or wheezing 90 days #8.5 grams isosorbide mononitrate 60 mg 60 mg PO DAILY #30 tabs 05/19/23 tablet,extended release 24 hr empagliflozin 25 mg tablet 25 mg PO DAILY Diabetes #90 tabs 05/27/23 tiotropium bromide 18 mcg capsule 1 cap inhalation DAILY 90 days #90 05/28/23 with inhalation device (Spiriva puffs with HandiHaler) lisinopril 5 mg tablet 5 mg PO DAILY #90 tabs 06/16/23 metoprolol tartrate 25 mg tablet 25 mg PO BID #90 tabs 06/16/23 pantoprazole 20 mg tablet,delayed 20 mg PO BID #90 tabs 06/16/23 release spironolactone 50 mg tablet 50 mg PO DAILY #90 tabs 06/16/23 torsemide 100 mg tablet 100 mg PO DAILY High blood 06/16/23 pressure #90 tabs quetiapine 25 mg tablet See Rx Instructions .Route 06/19/23 .COMPLEX #30 tabs ergocalciferol (vitamin D2) 1,250 See Rx Instructions .Route 06/23/23 mcg (50,000 unit) capsule .COMPLEX #10 caps prednisone 20 mg tablet 20 mg PO DAILY 5 days #5 tabs 07/10/23 Allergies Allergy/AdvReac Type Severity Reaction Status Date / Time naproxen [NAPROXEN] Allergy Mild NA-NAUSEA/V Verified 07/07/23 07:36 OMITING tramadol [TRAMADOL] Allergy Mild NA-NAUSEA Verified 07/07/23 07:[address] [facility] Disclaimer: The information contained in this section may have been updated after the patient was seen, as this information can be updated by other users. 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 Mediastinal lymphadenopathy Mediastinal lymphadenopathy Obstructive sleep apnea (adult) (pediatric) YAMILE (obstructive sleep apnea) Other emphysema Pulmonary emphysema Stopped smoking with greater than 30 pack year history Stopped smoking with greater than 30 pack year history Typical angina 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 H/O arthroscopy of knee H/O arthroscopy of shoulder History of colonoscopy Family History Other No significant family history Social History Smoking Status: Never smoker second hand exposure: No alcohol intake: never counseling provided: provider counseling substance use type: marijuana current occupational status: other Travel in the last 8 weeks: None household members: children housing: apartment current occupational exposures/hazards: No caffeine: No ROS Obtained: Yes All systems reviewed & no additional complaints except as documented Physical Exam General General appearance: alert and in no apparent distress Head Head exam: atraumatic and normocephalic Eye Eye exam: Present normal appearance, PERRL and EOMI ENT ENT exam: Present mucous membranes moist Neck Neck exam: Present normal inspection, full ROM and trachea midline Respiratory Respiratory exam: Absent respiratory distress, wheezes, stridor, accessory muscle use or prolonged expiratory phase Cardiovascular Cardiovascular exam: Present normal rhythm Abdominal Exam Abdominal exam: Present soft; Absent distention, tenderness, guarding, rebound or rigidity Extremities Exam Extremities exam: Present other (Decreased panama hat blocker strength in left and right hands, left greater than right. Decree sensation in median nerve distribution left hand.); Absent edema Neurological Exam Neurological exam: Present alert, oriented X3, CN II-XII intact and normal gait; Absent motor sensory deficit Skin Skin exam: Present warm and dry; Absent diaphoresis or erythema Medical Decision Making Medical Records Medical records reviewed: Yes I reviewed the patient's medical records. [place] Inquiry Pt receiving controlled substance: No [place] was queried for this patient: No Vital Signs: 07/10/23 21:25 07/10/23 21:37 Temperature 98.4 F Temperature Source Oral Pulse Rate [Left Radial] 88 Pulse Rate [Right] 90 88 Respiratory Rate 16 Blood Pressure [Right Arm] 131/72 Blood Pressure Mean [Right Arm] 91 Blood Pressure Source [Right Arm] Automatic Cuff Blood Pressure Position [Right Arm] Sitting 02 Sat by Pulse Oximetry 97 Oxygen Delivery Method Room Air Medical Decision Narrative: 62-year-old male no relevant medical history presenting with tingling in both hands. States that left worse than right associated with decreased panama hat blocker strength. Radiates from his fingertips up to his mid forearm. No associated trauma. Got worse yesterday while he was driving, continue to worsen today and is refractory to Tylenol, Aleve, Motrin, etc. History was obtained via conversation with patient. On arrival, patient hemodynamically stable, alert, oriented x4, appropriate, GCS 15, moving all extremities spontaneously, pupils equal and reactive to light. Full physical exam performed and significant for numbness and tingling bilateral hands, decreased panama hat blocker strength in left hand greater than right. Differential includes carpal tunnel syndrome, among others. Because patient atraumatic and no unilateral deficits with clinical carpal tunnel syndrome, no further workup deemed necessary. Because patient at baseline without signs or symptoms of clinical decompensation, deemed appropriate for discharge. Results were relayed to patient who voiced understanding and were agreeable to outpatient management and follow up. At the time of discharge the patient was hemodynamically stable, tolerating PO, and mobilizing appropriately. Critical Care Critical Care Time Critical Care Time: No
[2023-07-10 22:07] VITALS: BP 134/75; PULSE 84; RESP 16; TEMP 36.9; O2SAT 97
== END 2023-07-10 22:08 | disposition home or self-care (01) ==
PROVIDERS: Emergency Provider Emergency Medicine; PCP Family Medicine
DX: G56.03 Carpal tunnel syndrome, bilateral upper limbs (principal); J44.9 Chronic obstructive pulmonary disease, unspecified; E11.9 Type 2 diabetes mellitus without complications; G47.33 Obstructive sleep apnea (adult) (pediatric); I20.9 Angina pectoris, unspecified
CPT/HCPCS: 99283

== ENCOUNTER 2023-07-16 12:39 | Outpatient (CLI) | payer BC, SELFPAY | END 2023-07-16 23:59 | LOC: RT 12:39 | PROVIDERS: PCP Family Medicine; Visit Provider Internal Medicine Pulmonary Disease | DX: R06.02 Shortness of breath (principal); J44.9 Chronic obstructive pulmonary disease, unspecified | CPT/HCPCS: 94060 ==

== ENCOUNTER 2023-07-28 06:19 | Day surgery (SDC) | payer BC, SELFPAY ==
[2023-07-24 13:35] VITALS: BMI 38.2
[2023-07-28] VITALS (7 sets, daily range): BP systolic 107–126; BP diastolic 68–86; PULSE 69–74; RESP 16–18; TEMP 36.1–36.3; O2SAT 94–100
[2023-07-28] MEDS: LACTATED RINGERS 1000ML 1,000 ML 25 ML IV (06:41)
--- NOTE | 2023-07-28 06:54 | HMH.SCOPE ---
Procedure: Date: 07/28/23 Patient Date of :: 1960 Procedure Performed:: Colonoscopy with polypectomy Indications:: History of colon polyps Most recent colonoscopy in December 2019 was somewhat complicated by fair to moderate bowel preparation, and severe spasticity/lack of relaxation. Multiple polyps noted throughout the colon including large polyps around 40 cm and around 20 cm. Attempted colonoscopy last month aborted secondary to exceedingly poor bowel preparation. Performing Provider:: Deonte Robledo MD Referring Provider:: . Sedation:: Monitored anesthesia care Procedure:: After informed consent was obtained the patient was taken to the endoscopy suite. Sedation ensued after the patient was transferred to the left lateral decubitus position. Pulse, blood pressure, and oxygen saturation were monitored throughout the procedure. Digital rectal exam revealed no significant abnormality. The colonoscope was placed in position. The entire colon was evaluated. The colonoscope was carefully removed and the patient was transferred to recovery in stable condition. Please see findings and specimens below for detail. Findings:: Bowel preparation moderate to poor Significant spasticity/lack of relaxation Sessile polyp at 25 centimeters Specimens:: Sessile polyp at 25 cm (cold snare) Recommendations:: Timing of repeat colonoscopy is pending pathology but likely around 1-2 years with extended/alternate bowel preparation. Consider gastroenterology consultation secondary to persistent poor bowel preparation. Defer next colonoscopy to the gastroenterology service. Complications:: No immediate Estimated blood obtained (mL): 1 Colonoscopy Component Colonoscopy Component Was a colonoscopy performed during today's procedure?: Yes Recommended follow up colonoscopy of at least 10 years?: No If no, follow up colonoscopy recommended in ___ years?: (See above) Reason for not recommending >/= 10 yr follow-up interval?: (See above)
[2023-07-28 07:00] LABS: POC Glucose,Bedside 118 (70-110)
--- NOTE | 2023-07-28 07:49 | EXP.ANES.CKL ---
[facility] Disclaimer: The information contained in this section may have been updated after the patient was seen, as this information can be updated by other users. 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 Mediastinal lymphadenopathy Mediastinal lymphadenopathy Obstructive sleep apnea (adult) (pediatric) YAMILE (obstructive sleep apnea) Other emphysema Pulmonary emphysema Stopped smoking with greater than 30 pack year history Stopped smoking with greater than 30 pack year history Typical angina 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 H/O arthroscopy of knee H/O arthroscopy of shoulder History of colonoscopy Family History Other No significant family history Social History Smoking Status: Never smoker second hand exposure: No alcohol intake: never counseling provided: provider counseling substance use type: marijuana current occupational status: other Travel in the last 8 weeks: None household members: children housing: apartment current occupational exposures/hazards: No caffeine: Yes [facility] Anesthesia Checklist Patient Identification Patient Identification: Arm Band and Verbal (Name & ) Structural Data Admitted From: Home Planned Operative Procedure/s: Colonoscopy Consent for Planned Operative Procedure(s) Verified: Yes Verified Documents: Surgical Consent and History and Physical NPO Status Verified Time NPO: 00:00 Chart Verification Results Verified: CBC, BMP, ECG and Chest Xray Additional verifications Fingerstick Blood Glucose: 118 Patient : No Anesthesia Reactions: No Hx Blood Transfusions: No Blood Transfusion Reaction: No Cardiovascular Assessment Heart Sounds: S1 & S2 Pulse Rhythm: Irregular Peripheral Edema: No Airway Assessment Mallampati Score:: Class II C-Spine Mobility Assessed: Yes (FROM) TMJ Mobility Assessed: Yes Dentition: Good Dentition (Nothing loose per pt.) Neurological Assessment Level of Consciousness: Awake, Alert, Appropriate and Follows Commands Hx Seizures: No Numbness or tingling in extremities: No Anesthesia Plan Anesthesia Risk discussed: Yes Anesthesia Plan: Verified ASA Class: III Anesthesia Type: MAC
--- NOTE | 2023-07-28 07:51 | EXP.ANES.I ---
[facility] Anesthesia Record Part I Anesthesia Record I Intake, IV Amount: 550 Hydration: Adequate Estimated blood loss (mL): 1 Urine output (mL): 0 Blood Products used (#): none Blood Pressure: 107/78 SaO2: 97 Pulse Rate: 72 Airway Patency: Patent Respiratory Rate: 16 Temperature: 97.3 F Patient is:: Awake (Talking) and Stable Stable to PACU at:: 07:53
--- NOTE | 2023-07-28 08:26 | P.PNANES_ITS ---
[facility] Anesthesia Record Part I Anesthesia Record I Intake, IV Amount: 400 Hydration: Adequate Estimated blood loss (mL): 1 Urine output (mL): 0 Blood Products used (#): none Blood Pressure: 107/69 SaO2: 94 Pulse Rate: 72 Airway Patency: Patent Respiratory Rate: 16 Temperature: 97.0 F Patient is:: Drowsy and Stable Stable to PACU at:: 08:25
== END 2023-07-28 08:10 | disposition home or self-care (01) ==
PROVIDERS: PCP Family Medicine; Visit Provider Surgery
PROC: 0DJD8ZZ Inspection of Lower Intestinal Tract, Via Natural or Artificial Opening Endoscopic (ICD-10-PCS; CPT 45385; principal; 2023-07-28 07:30)
DX: Z12.11 Encounter for screening for malignant neoplasm of colon (principal); Z86.010 Personal history of colon polyps; K63.5 Polyp of colon; E11.9 Type 2 diabetes mellitus without complications
CPT/HCPCS: 45385; 82962

== ENCOUNTER 2023-09-10 15:41 | Emergency (ER) | payer BC, SELFPAY ==
--- NOTE | 2023-09-10 15:55 | [facility].EDGENADL ---
Discharge Plan Disposition Patient Disposition: Home, Self-Care Condition: Good Prescriptions Prescriptions: New methocarbamol 500 mg tablet 500 mg PO Q8HP PRN (Reason: spasms) Qty: 10 0RF No Action rosuvastatin 40 mg tablet 40 mg PO DAILY oxycodone 10 mg tablet 10 mg PO TID isosorbide mononitrate 60 mg tablet extended release 24 hr 60 mg PO DAILY Qty: 30 5RF gabapentin 800 mg tablet 800 mg PO TID lisinopril 5 mg tablet 5 mg PO DAILY Qty: 90 0RF metoprolol tartrate 25 mg tablet 25 mg PO BID Qty: 90 0RF pantoprazole 20 mg tablet,delayed release (DR/EC) 20 mg PO BID Qty: 90 0RF spironolactone 50 mg tablet 50 mg PO DAILY Qty: 90 0RF torsemide 100 mg tablet 100 mg PO DAILY Qty: 90 3RF (DME) OneTouch Ultra Test Strip See Rx Instructions .ROUTE .MEDSUPPLY Qty: 10 Rx Instructions: As directed Januvia 100 mg tablet 100 mg PO DAILY tiotropium bromide [Spiriva with HandiHaler] 18 mcg capsule, w/inhalation device 1 cap inhalation DAILY 90 Days Qty: 90 3RF Rx Instructions: puncture 1 cap using device; one dose = 2 inhalations empagliflozin 25 mg tablet 25 mg PO DAILY Qty: 90 3RF albuterol sulfate 90 mcg/actuation HFA aerosol inhaler 2 inh IH QID PRN (Reason: shortness of breath or wheezing) 90 Days Qty: 8.5 2RF quetiapine 25 mg tablet See Rx Instructions .ROUTE .COMPLEX Qty: 30 0RF Dose Instruction: TAKE ONE TABLET BY MOUTH AT BEDTIME Rx Instructions: TAKE ONE TABLET BY MOUTH AT BEDTIME ergocalciferol (vitamin D2) 1,250 mcg (50,000 unit) capsule See Rx Instructions .ROUTE .COMPLEX Qty: 10 0RF Dose Instruction: TAKE ONE CAPSULE BY MOUTH EVERY WEEK Rx Instructions: TAKE ONE CAPSULE BY MOUTH EVERY WEEK clopidogrel 75 mg tablet 75 mg PO DAILY Referrals Follow up/Referrals: Luisito Dickerson DO [Staff Physician] - See instructions Kyler Holloway [Primary Care Provider] - See instructions Activity Restrictions/Add. Instructions Additional Instructions/Restrictions: I referred you to orthopedic surgery for further evaluation. Take Tylenol alternating every 4 hours with Motrin as needed for symptoms. You can utilize bilateral over the counter carpal tunnel wrist braces as needed. I have called in a prescription for Robaxin to your pharmacy. Clinical Impressions Clinical Impression: Arthralgia of both hands Discharge ED Provider: Nilson Davis General Adult HPI <LUIS EDUARDO Mcknight - Last Filed: 09/10/23 16:22> General Chief complaint: Extremity Problem,Nontraumatic Stated complaint: feels like spasms both hands spasms Time Seen by Provider: 09/10/23 15:52 History of Present Illness HPI narrative: Patient presents for bilateral hand spasms today. Patient reports that this has been going on for 6 months. It appears to be worse when driving. No alleviating or aggravating factors that the patient can elicit. Patient denies trauma or repetitive use. Related Data Home Medications Medication Instructions Recorded Confirmed blood sugar diagnostic (OneTouch #10 ea 11/28/21 07/24/23 Ultra Test strips) sitagliptin phosphate 100 mg 100 mg PO DAILY 11/28/21 07/28/23 tablet (Januvia) oxycodone 10 mg tablet 10 mg PO TID 03/31/23 07/28/23 rosuvastatin 40 mg tablet 40 mg PO DAILY 03/31/23 07/28/23 gabapentin 800 mg tablet 800 mg PO TID 06/16/23 07/28/23 clopidogrel 75 mg tablet 75 mg PO DAILY Blood Thinner 07/03/23 07/28/23 Previous Rx's Medication Instructions Recorded albuterol sulfate 90 mcg/actuation 2 inh inhalation QID PRN shortness 08/14/22 aerosol inhaler of breath or wheezing 90 days #8.5 grams isosorbide mononitrate 60 mg 60 mg PO DAILY #30 tabs 05/19/23 tablet,extended release 24 hr empagliflozin 25 mg tablet 25 mg PO DAILY Diabetes #90 tabs 05/27/23 tiotropium bromide 18 mcg capsule 1 cap inhalation DAILY 90 days #90 05/28/23 with inhalation device (Spiriva puffs with HandiHaler) lisinopril 5 mg tablet 5 mg PO DAILY #90 tabs 06/16/23 metoprolol tartrate 25 mg tablet 25 mg PO BID #90 tabs 06/16/23 pantoprazole 20 mg tablet,delayed 20 mg PO BID #90 tabs 06/16/23 release spironolactone 50 mg tablet 50 mg PO DAILY #90 tabs 06/16/23 torsemide 100 mg tablet 100 mg PO DAILY High blood 06/16/23 pressure #90 tabs quetiapine 25 mg tablet See Rx Instructions .Route 06/19/23 .COMPLEX #30 tabs ergocalciferol (vitamin D2) 1,250 See Rx Instructions .Route 06/23/23 mcg (50,000 unit) capsule .COMPLEX #10 caps methocarbamol 500 mg tablet 500 mg PO Q8HP PRN spasms #10 tabs 09/10/23 Allergies Allergy/AdvReac Type Severity Reaction Status Date / Time naproxen [NAPROXEN] Allergy Mild NA-NAUSEA/V Verified 08/05/23 13:09 OMITING tramadol [TRAMADOL] Allergy Mild NA-NAUSEA Verified 08/05/23 13:09 PFSH <LUIS EDUARDO Mcknight - Last Filed: 09/10/23 16:22> PFS Disclaimer: The information contained in this section may have been updated after the patient was seen, as this information can be updated by other users. 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 Mediastinal lymphadenopathy Mediastinal lymphadenopathy Obstructive sleep apnea (adult) (pediatric) YAMILE (obstructive sleep apnea) Other emphysema Pulmonary emphysema Stopped smoking with greater than 30 pack year history Stopped smoking with greater than 30 pack year history Typical angina 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 H/O arthroscopy of knee H/O arthroscopy of shoulder History of colonoscopy Family History Other No significant family history Social History Smoking Status: Never smoker second hand exposure: No alcohol intake: never counseling provided: provider counseling substance use type: marijuana current occupational status: other Travel in the last 8 weeks: None household members: children housing: apartment current occupational exposures/hazards: No caffeine: Yes <LUIS EDUARDO Mcknight - Last Filed: 09/10/23 16:22> ROS Obtained: Yes Systems reviewed as appropriate & no additional complaints except as documented Physical Exam <LUIS EDUARDO Mcknight - Last Filed: 09/10/23 16:22> General General appearance: alert and in no apparent distress Respiratory Respiratory exam: Present normal lung sounds bilaterally Cardiovascular Cardiovascular exam: Present regular rate and normal rhythm Neurological Exam Neurological exam: Present alert and oriented X3 Other Other exam information: Bilateral hand exam shows negative Phalen and Tinel compression flexion extension did not elicit paresthesias. 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 No deformity noted. Patient is neurovascularly intact with good cap refill. Medical Decision Making <LUIS EDUARDO Mcknight - Last Filed: 09/10/23 16:22> Medical Records Medical records reviewed: Yes I reviewed the patient's medical records. [place] Inquiry Pt receiving controlled substance: No Vital Signs: 09/10/23 16:41 09/10/23 16:45 Temperature 98.3 F 98.3 F Temperature Source Oral Oral Pulse Rate 90 Pulse Rate [Left Radial] 104 H Respiratory Rate 20 20 Blood Pressure 110/66 Blood Pressure [Right Arm] 108/64 L Blood Pressure Mean [Right Arm] 78 02 Sat by Pulse Oximetry 95 Oxygen Delivery Method Room Air Room Air Orders (Tests/Meds): ED MEDICATIONS Discontinued Medications Generic Name Dose Route Start Last Admin Trade Name Alia PRN Reason Stop Dose Admin Acetaminophen 1,000 mg 09/10/23 15:56 09/10/23 16:18 Acetaminophen 500mg Tab PO 09/10/23 15:57 1,000 mg ONCE ONE Administration Ibuprofen 800 mg 09/10/23 15:58 09/10/23 16:18 Ibuprofen 800 Mg Tablet PO 09/10/23 15:59 800 mg ONCE ONE Administration Medical Decision Narrative: In summary patient is a 62-year-old male who presents to the emergency department for evaluation of bilateral hand spasms. Patient is able dynamically stable upon arrival, afebrile. Physical exam is remarkable for pain with biomedical engineering aide but negative for carpal tunnel syndrome eliciting maneuvers. I do not note any spasms on physical exam and cannot elicit them.. Differential diagnosis includes muscle spasm versus carpal tunnel versus overuse injury etc. Initial interventions include Toradol Tylenol and Robaxin. Patient will be referred to Dr. Dickerson orthopedic surgery for further evaluation. Patient given a prescription for Robaxin and recommended for bilateral hand splints until evaluation by Ortho. <Nilson Davis MD - Last Filed: 09/10/23 20:51> Vital Signs: 09/10/23 16:41 09/10/23 16:45 Temperature 98.3 F 98.3 F Temperature Source Oral Oral Pulse Rate 90 Pulse Rate [Left Radial] 104 H Respiratory Rate 20 20 Blood Pressure 110/66 Blood Pressure [Right Arm] 108/64 L Blood Pressure Mean [Right Arm] 78 02 Sat by Pulse Oximetry 95 Oxygen Delivery Method Room Air Room Air Orders (Tests/Meds): ED MEDICATIONS Discontinued Medications Generic Name Dose Route Start Last Admin Trade Name Freq PRN Reason Stop Dose Admin Acetaminophen 1,000 mg 09/10/23 15:56 09/10/23 16:18 Acetaminophen 500mg Tab PO 09/10/23 15:57 1,000 mg ONCE ONE Administration Ibuprofen 800 mg 09/10/23 15:58 09/10/23 16:18 Ibuprofen 800 Mg Tablet PO 09/10/23 15:59 800 mg ONCE ONE Administration Medical Decision Narrative: In summary patient is a 62-year-old male who presents to the emergency department for evaluation of bilateral hand spasms. Patient is able dynamically stable upon arrival, afebrile. Physical exam is remarkable for pain with biomedical engineering aide but negative for carpal tunnel syndrome eliciting maneuvers. I do not note any spasms on physical exam and cannot elicit them.. Differential diagnosis includes muscle spasm versus carpal tunnel versus overuse injury etc. Initial interventions include Toradol Tylenol and Robaxin. Patient will be referred to Dr. Dickerson orthopedic surgery for further evaluation. Patient given a prescription for Robaxin and recommended for bilateral hand splints until evaluation by Ortho. I was consulted by the JACQUIE, and we discussed the complexity of the problems being addressed. I approved the treatment and management plan for this patient?s care in the Emergency Department, thus performing a substantive portion of the medical decision making. Nilson Davis MD Critical Care <LUIS EDUARDO Mcknight - Last Filed: 09/10/23 16:22> Critical Care Time Critical Care Time: No
[2023-09-10] MEDS: ACETAMINOPHEN 500MG TAB 1000 MG PO (16:18)
[2023-09-10] MEDS: IBUPROFEN 800 MG TABLET PO (16:18)
[2023-09-10 16:41] VITALS: BP 108/64; PULSE 104; RESP 20; TEMP 36.8; O2SAT 95; BMI 29.5
[2023-09-10 16:45] VITALS: BP 110/66; PULSE 90; RESP 20; TEMP 36.8; O2SAT 95
== END 2023-09-10 16:46 | disposition home or self-care (01) ==
PROVIDERS: Emergency Provider Emergency Medicine; PCP Family Medicine
DX: M79.641 Pain in right hand (principal); M79.642 Pain in left hand; M62.838 Other muscle spasm; J44.9 Chronic obstructive pulmonary disease, unspecified; E11.9 Type 2 diabetes mellitus without complications; Z87.891 Personal history of nicotine dependence; Z79.84 Long term (current) use of oral hypoglycemic drugs
CPT/HCPCS: 99283

== ENCOUNTER 2023-09-22 17:17 | Emergency (ER) | payer BC, SELFPAY ==
[2023-09-22 17:17] VITALS: BP 111/64; PULSE 74; RESP 19; TEMP 36.5; O2SAT 96
[2023-09-22 17:30] VITALS: BP 100/58; PULSE 76; RESP 11; O2SAT 98
--- NOTE | 2023-09-22 17:33 | ED_ITS ---
Discharge Plan Disposition Patient Disposition: Home, Self-Care Condition: Good Prescriptions Prescriptions: No Action rosuvastatin 40 mg tablet 40 mg PO DAILY oxycodone 10 mg tablet 10 mg PO TID isosorbide mononitrate 60 mg tablet extended release 24 hr 60 mg PO DAILY Qty: 30 5RF gabapentin 800 mg tablet 800 mg PO TID lisinopril 5 mg tablet 5 mg PO DAILY Qty: 90 0RF metoprolol tartrate 25 mg tablet 25 mg PO BID Qty: 90 0RF pantoprazole 20 mg tablet,delayed release (DR/EC) 20 mg PO BID Qty: 90 0RF spironolactone 50 mg tablet 50 mg PO DAILY Qty: 90 0RF torsemide 100 mg tablet 100 mg PO DAILY Qty: 90 3RF (DME) OneTouch Ultra Test Strip See Rx Instructions .ROUTE .MEDSUPPLY Qty: 10 Rx Instructions: As directed Januvia 100 mg tablet 100 mg PO DAILY tiotropium bromide [Spiriva with HandiHaler] 18 mcg capsule, w/inhalation device 1 cap inhalation DAILY 90 Days Qty: 90 3RF Rx Instructions: puncture 1 cap using device; one dose = 2 inhalations empagliflozin 25 mg tablet 25 mg PO DAILY Qty: 90 3RF albuterol sulfate 90 mcg/actuation HFA aerosol inhaler 2 inh IH QID PRN (Reason: shortness of breath or wheezing) 90 Days Qty: 8.5 2RF quetiapine 25 mg tablet See Rx Instructions .ROUTE .COMPLEX Qty: 30 0RF Dose Instruction: TAKE ONE TABLET BY MOUTH AT BEDTIME Rx Instructions: TAKE ONE TABLET BY MOUTH AT BEDTIME ergocalciferol (vitamin D2) 1,250 mcg (50,000 unit) capsule See Rx Instructions .ROUTE .COMPLEX Qty: 10 0RF Dose Instruction: TAKE ONE CAPSULE BY MOUTH EVERY WEEK Rx Instructions: TAKE ONE CAPSULE BY MOUTH EVERY WEEK clopidogrel 75 mg tablet 75 mg PO DAILY methocarbamol 500 mg tablet 500 mg PO Q8HP PRN (Reason: spasms) Qty: 10 0RF Referrals Follow up/Referrals: Provider,Referral, MD [Primary Care Provider] - See instructions Activity Restrictions/Add. Instructions Additional Instructions/Restrictions: Please continue to drink plenty of liquids. Please follow-up with your primary care doctor. Please continue to monitor your blood sugar. Please return with any new or worsening symptoms. Clinical Impressions Clinical Impression: Acute hyperglycemia, Acute chest pain Instructions Patient Instructions: DI for Hyperglycemia -- Adult Discharge ED Provider: Matthew Sanders General Adult HPI General Chief complaint: Shortness of Breath/Dyspnea Stated complaint: SOA Time Seen by Provider: 09/22/23 17:33 History of Present Illness HPI narrative: Patient presents with multiple complaints. Patient first noticed substernal nonradiating nonpleuritic, however exertional chest pain in the setting of history of myocardial infarction multiple years ago. Symptoms were abrupt in onset while he was sitting. This occurred several hours prior to arrival today. He denies any fevers or chills. He denies for me any shortness of breath. He does report generalized malaise, denies any abdominal pain, denies any syncope or presyncope. Denies any palpitations. No sick contacts. No recent travel. No hemoptysis. No unilateral leg pain or leg swelling. Please note that above description of symptoms, in this electronic medical record under categorization of recalled from ER triage doctor by RN are reflective of an initial nursing assessment, however, is not reflective of my full history and physical exam that was personally taken and clarified. Consequentially, this preceding description of symptoms, which may include the patient's categorized chief complaint in the EMR, do not reflect my personal clinical impression, and the ultimate description of history of present illness and patient stated complaints should be deferred to this section of the note. Unless stated otherwise or congruent with this section of the note, additional signs, symptoms, or incongruence should be interpreted as inaccurate with my clinical impression. Related Data Home Medications Medication Instructions Recorded Confirmed blood sugar diagnostic (Fashion To FigureTouch #10 ea 11/28/21 09/17/23 Ultra Test strips) sitagliptin phosphate 100 mg 100 mg PO DAILY 11/28/21 09/17/23 tablet (Januvia) oxycodone 10 mg tablet 10 mg PO TID 03/31/23 09/17/23 rosuvastatin 40 mg tablet 40 mg PO DAILY 03/31/23 09/17/23 gabapentin 800 mg tablet 800 mg PO TID 06/16/23 09/17/23 clopidogrel 75 mg tablet 75 mg PO DAILY Blood Thinner 07/03/23 09/17/23 Previous Rx's Medication Instructions Recorded albuterol sulfate 90 mcg/actuation 2 inh inhalation QID PRN shortness 08/14/22 aerosol inhaler of breath or wheezing 90 days #8.5 grams isosorbide mononitrate 60 mg 60 mg PO DAILY #30 tabs 05/19/23 tablet,extended release 24 hr empagliflozin 25 mg tablet 25 mg PO DAILY Diabetes #90 tabs 05/27/23 tiotropium bromide 18 mcg capsule 1 cap inhalation DAILY 90 days #90 05/28/23 with inhalation device (Spiriva puffs with HandiHaler) lisinopril 5 mg tablet 5 mg PO DAILY #90 tabs 06/16/23 metoprolol tartrate 25 mg tablet 25 mg PO BID #90 tabs 06/16/23 pantoprazole 20 mg tablet,delayed 20 mg PO BID #90 tabs 06/16/23 release spironolactone 50 mg tablet 50 mg PO DAILY #90 tabs 06/16/23 torsemide 100 mg tablet 100 mg PO DAILY High blood 06/16/23 pressure #90 tabs quetiapine 25 mg tablet See Rx Instructions .Route 06/19/23 .COMPLEX #30 tabs ergocalciferol (vitamin D2) 1,250 See Rx Instructions .Route 06/23/23 mcg (50,000 unit) capsule .COMPLEX #10 caps methocarbamol 500 mg tablet 500 mg PO Q8HP PRN spasms #10 tabs 09/10/23 Allergies Allergy/AdvReac Type Severity Reaction Status Date / Time naproxen [NAPROXEN] Allergy Mild NA-NAUSEA/V Verified 09/17/23 12:58 OMITING tramadol [TRAMADOL] Allergy Mild NA-NAUSEA Verified 09/17/23 12:58 [facility] Disclaimer: The information contained in this section may have been updated after the patient was seen, as this information can be updated by other users. 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 Elevated serum creatinine History of lung cancer in adulthood Stopped smoking with greater than 30 pack year history COPD mixed type Mediastinal lymphadenopathy Hilar lymphadenopathy Dyspnea Typical angina Abnormal result of cardiovascular function study Diabetes Mediastinal lymphadenopathy Pulmonary emphysema COPD (chronic obstructive pulmonary disease) Obstructive sleep apnea (adult) (pediatric) H/O malignant neoplasm of lung Other emphysema Stopped smoking with greater than 30 pack year history Dyspnea on exertion YAMILE (obstructive sleep apnea) Dizziness Lightheaded Hypotension Edema Claudication 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 History of colonoscopy H/O arthroscopy of knee H/O arthroscopy of shoulder Family History Other No significant family history Social History Smoking Status: Former smoker tobacco type: cigarettes packs per day: 1 second hand exposure: No alcohol intake: never counseling provided: provider counseling substance use type: marijuana current occupational status: other Travel in the last 8 weeks: None household members: children housing: apartment current occupational exposures/hazards: No caffeine: Yes ROS Obtained: Yes Systems reviewed as appropriate & no additional complaints except as documented As per HPI Physical Exam General General appearance: alert and in no apparent distress Head Head exam: atraumatic and normocephalic Eye Eye exam: Present normal appearance Neck Neck exam: Present normal inspection Chest Chest inspection: Present normal inspection and symmetric chest wall rise Respiratory Respiratory exam: Present normal lung sounds bilaterally; Absent respiratory distress Cardiovascular Cardiovascular exam: Present regular rate and normal rhythm Abdominal Exam Abdominal exam: Present soft Neurological Exam Neurological exam: Present alert and oriented X3 Psychiatric Psychiatric exam: Present normal affect and normal mood Skin Skin exam: Present warm and dry Medical Decision Making Medical Records Medical records reviewed: Yes I reviewed the patient's medical records. [place] Inquiry Pt receiving controlled substance: No Vital Signs: 09/22/23 17:17 09/22/23 17:30 09/22/23 18:00 Temperature 97.7 F Temperature Source Oral Pulse Rate 76 73 Pulse Rate [Right] 74 Respiratory Rate 19 11 L 18 Blood Pressure 100/58 L 91/62 L Blood Pressure [Right Arm] 111/64 Blood Pressure Mean Blood Pressure Mean [Right Arm] 79 Blood Pressure Source [Right Arm] Automatic Cuff 02 Sat by Pulse Oximetry 96 98 98 Oxygen Delivery Method Room Air Room Air Room Air 09/22/23 18:30 09/22/23 19:31 09/22/23 21:06 Temperature 98.1 F Temperature Source Oral Pulse Rate 77 82 78 Pulse Rate [Right] Respiratory Rate 16 16 18 Blood Pressure 98/59 L 87/69 L 138/88 Blood Pressure [Right Arm] Blood Pressure Mean 73 Blood Pressure Mean [Right Arm] Blood Pressure Source [Right Arm] 02 Sat by Pulse Oximetry 97 97 Oxygen Delivery Method Room Air Room Air Lab Data Lab Results 09/22/23 17:18: WBC 5.1, RBC 4.38 L, Hgb 13.9 L, Hct 42.0, MCV 96.0 H, MCH 31.7 H, MCHC 33.0, RDW 13.3, Plt Count 215, MPV 8.3, Neut % (Auto) 62.3, Lymph % (Auto) 24.0, [place] % (Auto) 9.2, Eos % (Auto) 2.6, Baso % (Auto) 1.9, Neut # (Auto) 3.2, Lymph # (Auto) 1.2, [place] # (Auto) 0.5, Eos # (Auto) 0.1, Baso # (Auto) 0.1, Sodium 134 L, Potassium 4.4, Chloride 97 L, Carbon Dioxide 27, Anion Gap 14.4, BUN 27 H, Creatinine 1.60 H, Estimated Creat Clear 7, Estimated GFR 44 L, Est GFR ( Amer) 54 L, Glucose 299 H, Calcium 10.2, Total Bilirubin 1.0, AST 36, ALT 30, Alkaline Phosphatase 90, Troponin I < 0.01, Total Protein 7.8, Albumin 4.7, Globulin 3.1, Albumin/Globulin Ratio 1.5 09/22/23 20:15: Troponin I < 0.01 09/22/23 17:18 09/22/23 17:18 Orders (Tests/Meds): ED MEDICATIONS Discontinued Medications Generic Name Dose Route Start Last Admin Trade Name Freq PRN Reason Stop Dose Admin Aspirin 325 mg 09/22/23 17:47 09/22/23 18:13 Aspirin 325mg Tablet PO 09/22/23 17:48 325 mg ONCE ONE Administration Iopamidol 100 ml 09/22/23 19:06 09/22/23 19:09 Iopamidol-370 (76%);100ml Bottle IV 09/22/23 19:07 100 ml ONCE ONE Administration Sodium Chloride 10 ml 09/22/23 19:06 09/22/23 19:08 Sodium Chloride 0.9% 10ml Syr (Rad Only) IV 09/22/23 19:07 10 ml ONCE ONE Administration Sodium Chloride 50 ml 09/22/23 19:06 09/22/23 19:08 0.9 % Sodium Chloride 50 Ml Vial IV 09/22/23 19:07 50 ml ONCE ONE Administration ORDERS Category Date Time Status CT angio chest - dissection Stat Cat Scan 09/22/23 17:45 Completed XR chest portable Stat Exams 09/22/23 17:40 Completed Complete Blood Count Auto Diff Stat Lab 09/22/23 17:18 Completed Comprehensive Metabolic Panel Stat Lab 09/22/23 17:18 Completed Troponin I Q3H Lab 09/22/23 20:15 Completed Troponin I Stat Lab 09/22/23 17:18 Completed HEART Score History (anamnesis): Moderately suspicious ECG: Non-specific disturbance Age: 45-65 years Risk factors: Atherosclerosis history Troponin: </= normal limit HEART Score: 5 Medical Decision Narrative: Patient with history and exam per above presenting for evaluation of fatigue, chest pain Diagnoses considered include ACS, aortic dissection, pericarditis, PE, pneumothorax, pneumonia, GERD, costochondritis, referred pain ED workup and treatment included: ED MEDICATIONS Discontinued Medications Generic Name Dose Route Start Last Admin Trade Name Freq PRN Reason Stop Dose Admin Aspirin 325 mg 09/22/23 17:47 09/22/23 18:13 Aspirin 325mg Tablet PO 09/22/23 17:48 325 mg ONCE ONE Administration Iopamidol 100 ml 09/22/23 19:06 09/22/23 19:09 Iopamidol-370 (76%);100ml Bottle IV 09/22/23 19:07 100 ml ONCE ONE Administration Sodium Chloride 10 ml 09/22/23 19:06 09/22/23 19:08 Sodium Chloride 0.9% 10ml Syr (Rad Only) IV 09/22/23 19:07 10 ml ONCE ONE Administration Sodium Chloride 50 ml 09/22/23 19:06 09/22/23 19:08 0.9 % Sodium Chloride 50 Ml Vial IV 09/22/23 19:07 50 ml ONCE ONE Administration ORDERS Category Date Time Status CT angio chest - dissection Stat Cat Scan 09/22/23 17:45 Completed XR chest portable Stat Exams 09/22/23 17:40 Completed Complete Blood Count Auto Diff Stat Lab 09/22/23 17:18 Completed Comprehensive Metabolic Panel Stat Lab 09/22/23 17:18 Completed Troponin I Q3H Lab 09/22/23 20:15 Completed Troponin I Stat Lab 09/22/23 17:18 Completed Labs were independently interpreted by me, significant for hyperglycemia, anion gap within normal limits, troponins undetectable x 2 Imaging was independently visualized and interpreted by me, significant for no acute evidence of surgical pathology such dissection or pulmonary embolism. Please refer to radiology report for full details. My clinical impression at this time is most consistent with chest pain in the setting of hyperglycemia in the absence of evidence of DKA or HHS. Patient will follow-up with primary care provider as well as cardiology. I discussed my clinical impression with patient and answered all questions. At this time, the evidence for any other entities in the differential is insufficient to warrant any further testing or ED observation. This was explained to the patient. The patient was advised that persistent or worsening symptoms require further evaluation. I confirmed the patient's understanding of this discussion. Critical Care Critical Care Time Critical Care Time: No
--- NOTE | 2023-09-22 17:40 | ECG_ITS ---
APPROVED REPORT Exam: Resting ECG HR:75 bpm ECG Measurements Heart Rate 75 AXES NJ 166 P 19 QRSd 95 QRS 7 QT 393 T 15 QTc 421 Conclusion SINUS RHYTHM NORMAL ECG UNCONFIRMED REPORT Electronically signed by : DANIELLE DEL ROSARIO, 09/23/2023 06:52:23
--- NOTE | 2023-09-22 17:40 | XR_ITS ---
PROCEDURE INFORMATION: Exam: XR Chest Exam date and time: 09/22/2023 5:40 PM Age: 62 years old Clinical indication: Shortness of breath; Additional info: SOA, earlier chest pain TECHNIQUE: Imaging protocol: Radiologic exam of the chest. Views: 1 view. COMPARISON: CT CHEST W CON 28/01/2023 17:30 FINDINGS: Lungs: Left perihilar architectural distortion is unchanged. Large upper lung zone collapse. Stigmata of old granulomatous disease. Pleural spaces: Unremarkable. No pleural effusion. No pneumothorax. Heart/Mediastinum: Unremarkable. No cardiomegaly. Bones/joints: Unremarkable. IMPRESSION: No acute findings.
--- NOTE | 2023-09-22 17:45 | CT_ITS ---
PROCEDURE INFORMATION: Exam: CTA Chest With Contrast Exam date and time: 09/22/2023 6:55 PM Age: 62 years old Clinical indication: Pain; Angina pectoris; Additional info: Acute onset chest pain TECHNIQUE: Imaging protocol: Computed tomographic angiography of the chest with contrast. Exam focused on the arteries. 3D rendering (Not supervised by radiologist): MIP and/or 3D reconstructed images were created by the technologist. Radiation optimization: All CT scans at this facility use at least one of these dose optimization techniques: automated exposure control; mA and/or kV adjustment per patient size (includes targeted exams where dose is matched to clinical indication); or iterative reconstruction. Contrast material: ISOVUE 370; Contrast volume: 100 ml; Contrast route: INTRAVENOUS (IV); COMPARISON: CT ANGIO CHEST PE PROTOCOL 06/08/2022 10:02 FINDINGS: Pulmonary arteries: No pulmonary emboli. Aorta: The aorta demonstrates moderate atherosclerotic disease. Renal arteries: Accessory left renal artery. Lungs: Left perihilar architectural distortion in fibrotic changes most likely represent the patient's known malignancy and/or post treatment changes. No significant interval change. Bilateral apical bullae. Mild centrilobular emphysema. There is a 3 mm right upper lobe nodule image 35 series 5, unchanged since at least 2021. No additional follow-up imaging is warranted. Pleural spaces: Unremarkable. No pneumothorax. No pleural effusion. Heart: Unremarkable. No cardiomegaly. No pericardial effusion. Coronary arteries: Coronary artery calcifications. Lymph nodes: Unremarkable. No enlarged lymph nodes. Gallbladder and bile ducts: Gallbladder is absent. Bones/joints: Unremarkable. No acute fracture. Soft tissues: Unremarkable. Other findings: Stigmata of old granulomatous disease. IMPRESSION: No pulmonary emboli.
[2023-09-22 17:53] LABS: Basophils # 0.1 K/mm3 (0-0.2); Basophils % 1.9 % (0.1-2.0); Eosinophils # 0.1 K/mm3 (0.0-0.4); Eosinophils % 2.6 % (0.1-12.0); Hemoglobin 13.9 g/dL (14.1-18.0); Lymphocytes # 1.2 K/mm3 (0.7-4.5); Mean Corpuscular Hemoglobin 31.7 pg (27.0-31.2); Mean Platelet Volume 8.3 fl (7.4-10.4); Monocytes # 0.5 K/mm3 (0.1-1.0); Monocytes % 9.2 % (1.7-9.3); Neutrophils # 3.2 K/mm3 (1.8-7.8); Neutrophils % 62.3 % (37.0-80.0); Platelet Count 215 K/mm3 (142-424); Red Blood Count 4.38 M/mm3 (4.60-6.20); Red Cell Distribution Width 13.3 % (11.5-17.5); White Blood Count 5.1 K/mm3 (4.8-10.8)
[2023-09-22 18:00] VITALS: BP 91/62; PULSE 73; RESP 18; O2SAT 98
[2023-09-22 18:01] LABS: Alanine Aminotransferase 30 U/L (12-78); Albumin Level 4.7 g/dl (3.5-5.0); Albumin/Globulin Ratio 1.5 (1.1-1.8); Alkaline Phosphatase 90 U/L (38-126); Anion Gap 14.4 mEq/L (5-15); Aspartate Amino Transferase 36 U/L (17-59); Blood Urea Nitrogen 27 mg/dl (9-20); Calcium 10.2 mg/dl (8.4-10.2); Carbon Dioxide 27 mmol/L (22.0-30.0); Chloride 97 mmol/L (98-107); Creatinine Clearance Estimated 7 mL/min (50-200); Estimated Glomerular Filt Rate 44 ml/min (>60); GFR (African American) 54 ML/MIN (>60); Globulin 3.1 g/dL (1.3-3.2); Glucose 299 mg/dl (74-100); Potassium 4.4 mmoL/L (3.5-5.1); Sodium 134 mmol/L (136-145); Total Protein,Serum 7.8 g/dl (6.3-8.2)
--- NOTE | 2023-09-22 18:12 | PC.NURSE ---
PT PROVIDED URINAL
[2023-09-22] MEDS: ASPIRIN 325MG TABLET 325 MG PO (18:13)
[2023-09-22 18:17] LABS: Troponin I < 0.01 ng/ml (0.00-0.034)
[2023-09-22 18:30] VITALS: BP 98/59; PULSE 77; RESP 16; O2SAT 97
--- NOTE | 2023-09-22 18:59 | PC.NURSE ---
PT RETURNED FROM CT
--- NOTE | 2023-09-22 19:02 | PC.NURSE ---
PT PROVIDED WATER, NO NEEDS AT THIS TIME
[2023-09-22] MEDS: SODIUM CHLORIDE 0.9% 10ML SYR (RAD ONLY) 10 ML IV (19:08)
[2023-09-22] MEDS: 0.9 % SODIUM CHLORIDE 50 ML VIAL IV (19:08)
[2023-09-22] MEDS: IOPAMIDOL-370 (76%);100ML BOTTLE 100 ML IV (19:09)
[2023-09-22 19:31] VITALS: BP 87/69; PULSE 82; RESP 16; O2SAT 97
--- NOTE | 2023-09-22 20:10 | PC.NURSE ---
bedside updating the pt.
[2023-09-22 20:46] LABS: Troponin I < 0.01 ng/ml (0.00-0.034)
[2023-09-22 21:06] VITALS: BP 138/88; PULSE 78; RESP 18; TEMP 36.7; O2SAT 97
== END 2023-09-22 21:11 | disposition home or self-care (01) ==
PROVIDERS: Emergency Provider Emergency Medicine
DX: R07.9 Chest pain, unspecified (principal); E11.65 Type 2 diabetes mellitus with hyperglycemia; R53.81 Other malaise; J44.9 Chronic obstructive pulmonary disease, unspecified; I10 Essential (primary) hypertension; I20.9 Angina pectoris, unspecified; Z87.891 Personal history of nicotine dependence; Z79.84 Long term (current) use of oral hypoglycemic drugs
CPT/HCPCS: 71045; 71275; 80053; 84484; 85025; 93005; 99285; Q9967

== ENCOUNTER 2023-09-29 14:30 | Outpatient (CLI) | payer BC, SELFPAY ==
--- NOTE | 2023-09-29 14:33 | XR_ITS ---
FINAL REPORT CLINICAL HISTORY: left hand pain COMPARISON: None FINDINGS: LEFT HAND Three views demonstrate no acute fracture or dislocation. The visualized joint spaces are normally aligned. The soft tissues are unremarkable. IMPRESSION: No acute process. Reviewed, Interpreted and Dictated by Giles Mcfadden MD Transcribed by Lacey Calhoun Authenticated and [facility]
--- NOTE | 2023-09-29 14:33 | XR_ITS ---
FINAL REPORT CLINICAL HISTORY: right hand pain COMPARISON: None FINDINGS: RIGHT HAND Three views demonstrate no acute fracture or dislocation. The visualized joint spaces are normally aligned. There is a metallic foreign body in the 4th web space measuring 4 mm. IMPRESSION: No acute bony abnormality. Metallic foreign body fourth webspace. Reviewed, Interpreted and Dictated by Giles Mcfadden MD Transcribed by Lacey Calhoun Authenticated and [facility]
== END 2023-09-29 23:59 | disposition home or self-care (01) ==
LOC: RAD 14:31
PROVIDERS: PCP Family Medicine; Visit Provider Orthopaedic Surgery
DX: M79.642 Pain in left hand (principal); M79.641 Pain in right hand
CPT/HCPCS: 73130

== ENCOUNTER 2023-12-08 09:30 | Outpatient (CLI) | payer BC, SELFPAY ==
--- NOTE | 2023-12-08 09:34 | CT_ITS ---
FINAL REPORT TECHNIQUE: Axial CT images were performed from the lung apices through the upper abdomen. Coronal and sagittal reformats were submitted. This study was performed with techniques to keep radiation doses as low as reasonably achievable (ALARA). Individualized dose reduction techniques using automated exposure control or adjustment of mA and/or kV according to the patient's size were employed. CLINICAL HISTORY: LUNG CANCER f/u COMPARISON: 09/22/2023 FINDINGS: There is no axillary adenopathy. Small mediastinal nodes are present, stable, as well as calcified right hilar nodes. There is new left posterior pleural thickening versus small effusions, not seen on the prior exam. Moderate changes of emphysema are once again identified. Left perihilar consolidation remains present, consistent with post therapeutic change. Heart size is normal. There is no pericardial or pleural effusion. The gallbladder has been surgically resected. There is a 3 mm right upper lobe nodule, noted on image #32, stable. IMPRESSION: New left posterior pleural thickening versus small effusions, not seen on the prior exam. Left perihilar consolidation consistent with post treatment changes. The 3 mm right upper lobe nodule noted on the prior exam is stable. Reviewed, Interpreted and Dictated by Davis Mitchell III, MD Transcribed by Katty Evans Authenticated and [facility]
== END 2023-12-08 23:59 | disposition home or self-care (01) ==
LOC: RAD 09:31
PROVIDERS: PCP Family Medicine; Visit Provider Internal Medicine Medical Oncology
DX: Z85.118 Personal history of other malignant neoplasm of bronchus and lung (principal); Z87.891 Personal history of nicotine dependence
CPT/HCPCS: 71250

== ENCOUNTER 2023-12-21 09:22 | Day surgery (SDC) | payer BC, SELFPAY ==
[2023-12-17 13:14] VITALS: BMI 39.2
[2023-12-21] VITALS (12 sets, daily range): BP systolic 102–128; BP diastolic 63–75; PULSE 60–85; RESP 12–18; TEMP 36.1–36.3; O2SAT 92–100
[2023-12-21 09:50] LABS: POC Glucose,Bedside 108 (70-110)
[2023-12-21] MEDS: LACTATED RINGERS 1000ML 1,000 ML 100 ML IV (09:57)
--- NOTE | 2023-12-21 10:20 | EXP.ANES.CKL ---
[facility] Disclaimer: The information contained in this section may have been updated after the patient was seen, as this information can be updated by other users. 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 Elevated serum creatinine History of lung cancer in adulthood Stopped smoking with greater than 30 pack year history COPD mixed type Mediastinal lymphadenopathy Hilar lymphadenopathy Dyspnea Typical angina Abnormal result of cardiovascular function study Diabetes Mediastinal lymphadenopathy Pulmonary emphysema COPD (chronic obstructive pulmonary disease) Obstructive sleep apnea (adult) (pediatric) H/O malignant neoplasm of lung Other emphysema Stopped smoking with greater than 30 pack year history Dyspnea on exertion YAMILE (obstructive sleep apnea) Dizziness Lightheaded Hypotension Edema Claudication 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 History of colonoscopy H/O arthroscopy of knee H/O arthroscopy of shoulder Family History Other No significant family history Social History (Updated 12/21/23 @ 09:48 by Lornea Cheung RN) Smoking Status: Former smoker tobacco type: cigarettes packs per day: 1 how long ago did patient quit smokin years; in 2017 second hand exposure: No alcohol intake: never counseling given: No counseling provided: provider counseling substance use type: marijuana counseling given: No current occupational status: disabled Travel in the last 8 weeks: None adopted: No caregiver/support person: No foster care: No household members: children housing: apartment lives independently: Yes marital status: single number of children: 4 number of grandchildren: 9 service: Yes (he was honorably discharged; cause of his back; he was in there for 2 years) 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 exposures/hazards: No Hx Recent Travel: No sexually active: No caffeine: Yes physical activity: none working smoke detector in home: Yes fire extinguisher in home: No carbon monox detector in home: Yes firearms in home: No do you feel safe at home: Yes victim of physical abuse: No victim of emotional abuse: No victim of sexual abuse: No would you like helpful sources: No [facility] Anesthesia Checklist Patient Identification Patient Identification: Arm Band Structural Data Admitted From: Home Planned Operative Procedure/s: Left Carpal Tunnel Release Consent for Planned Operative Procedure(s) Verified: Yes Verified Documents: Surgical Consent and History and Physical NPO Status Verified Time NPO: 00:00 Additional verifications Anesthesia Reactions: No Hx Blood Transfusions: No Blood Transfusion Reaction: No Airway Assessment Mallampati Score:: Class II C-Spine Mobility Assessed: Yes TMJ Mobility Assessed: Yes Dentition: Edentulous Neurological Assessment Level of Consciousness: Awake, Alert and Appropriate Anesthesia Plan Anesthesia Risk discussed: Yes Anesthesia Plan: Verified ASA Class: III Anesthesia Type: General
[2023-12-21] MEDS: CEFAZOLIN SODIUM 2 GM in 0.9 % SODIUM CHLORIDE 100 ML IV (11:09)
[2023-12-21] MEDS: BUPIVACAINE 0.5% 10ML VIAL 50 MG (11:26)
--- NOTE | 2023-12-21 11:47 | P.PNANES_ITS ---
[facility] Anesthesia Record Part I Anesthesia Record I Intake, IV Amount: 800 Hydration: Adequate Estimated blood loss (mL): 1 Urine output (mL): 0 Blood Products used (#): none Blood Pressure: 119/68 SaO2: 97 Pulse Rate: 63 Airway Patency: Patent Respiratory Rate: 16 Temperature: 97.4 F Patient is:: Drowsy and Stable Stable to PACU at:: 11:45
--- NOTE | 2023-12-21 11:57 | P.OP_ITS ---
Date of procedure: 12/21/23 Pre-op Diagnosis:: Left carpal tunnel syndrome Post-op Diagnosis:: Same Procedure performed:: Left endoscopic carpal tunnel release Surgeon:: Luisito Dickerson DO JACQUARD CARD CUTTER:: Cooper Warren Anesthesia: LMA Estimated blood loss (mL): 0 Operative findings:: See dictation Operative note:: Patient is identified preoperatively. Left wrist marked with yes and my initials. Taken the operating room. Placed upon operating bed. General anesthesia was administered airway secured. Left upper extremity was then prepped and draped normal sterile fashion. Once prepped and draped final operative timeout performed to identify proper patient procedure and extremity. Everyone involved the case agreed. There were no counter indications to beginning. She did receive preoperative antibiotics. Marking pen was used to make planned incision over the volar wrist. Esmarch was used to exsanguinate the extremity and pneumatic tourniquet was inflated to 250 mmHg. Skin knife was used incise through skin. Dissection was taken down with scissors and retractors were placed to identify the most proximal aspect the transverse carpal ligament. Small dilator was then placed in the carpal tunnel followed by the larger dilator followed by the 4.0 mm sled. Within the sled the camera was then placed in the carpal tunnel. Transverse carpal ligament clearly seen superiorly in the wound. Probe was used to identify the most distal aspect the transverse carpal ligament. Rasp was used to remove soft tissue from the undersurface transverse carpal ligament. And then the hook blade was utilized to incise the transverse carpal ligament in its full length. Irrigation of the wounds performed. Skin was closed with nylon stitches. Sterile hand dressing placed. Patient waken anesthesia taken recovery in stable condition. Condition: stable Disposition: PACU Complications:: None apparent
[2023-12-21 12:03] LABS: POC Glucose,Bedside 102 (70-110)
[2023-12-21] MEDS: MORPHINE 2MG/ML SYRINGE 2 MG IV ×2 (12:07→12:17)
[2023-12-21] MEDS: HYDROMORPHONE 2MG/ML SYRINGE 0.5 MG IV (12:34)
--- NOTE | 2023-12-22 12:34 | EXP.ANES.II ---
[facility] Anesthesia Record Part II Anesthesia Record Part II Discharge Time: 12:47 Destination: Surgical Day Care (OP Surgery) PACU nurse assessment reviewed?: Yes Patient Condition:: Good Anesthesia Complications:: None Swallowing reflex intact?: Yes Airway Patency: Patent Cyanosis?: No Blood Pressure: 120/70 SaO2: 95 Respiratory Rate: 14 Pulse Rate: 63 Temperature: 97.4 F Mental Status: Alert & Oriented Pain level:: 6 Nausea and/or vomitting:: None Intake, IV Amount: 0 Hydration: Adequate
[2023-12-22 12:35] VITALS: BP 120/70; PULSE 63; RESP 14; TEMP 36.3; O2SAT 95
== END 2023-12-21 13:20 | disposition home or self-care (01) ==
PROVIDERS: PCP Family Medicine; Visit Provider Orthopaedic Surgery
PROC: (CPT 64721; principal; 2023-12-21 11:00)
DX: G56.02 Carpal tunnel syndrome, left upper limb (principal); E11.9 Type 2 diabetes mellitus without complications; Z79.899 Other long term (current) drug therapy
CPT/HCPCS: 29848; 82962; 96374; J0690; J1100; J1170; J2250; J2270; J2405; J3010; J7120

== ENCOUNTER 2024-01-20 10:00 | Outpatient (RCR) | payer BC, SELFPAY ==
--- NOTE | 2024-01-07 08:43 | HMH.OTOPEV ---
OT Inpatient Evaluation Rehab OT Outpatient Eval Start: 01/07/24 08:29 Freq: Status: Active Protocol: Document 01/07/24 08:29 RMANABEL (Rec: 01/07/24 08:42 [facility] [id number] E-signed By Lavelle Martinez, OT Outpatient Therapy Subjective History Subjective History Pt is a 63 year old male who reports to therapy s/p left ECTR on December 21, 2023. Pt reports he has been having carpal tunnel symptoms for ~2 years. He continues to have numbness in thumb, index, and middle finger. Pt demonstrates with decreased AROM and strength at left wrist. Pt also demonstrates with decreased correction officer strength in left hand. Pt is right hand dominant. Pt will continue to be seen twice a week in order to address all deficits. L hand correction officer strength ST lbs L hand correction officer strength LT lbs New diagnosis of cancer in past 12 No months? Chief Complaint Pain,Stiff,Weakness,Decreased Shift Superintendent Caustic Cresylate Strength Symptom Type Ache,Throb,Dull,Numbness Symptoms Relieved By Nothing Symptoms Aggravated By Physical Activity,Lifting Prior Functional Limitations None Current Functional Limitations Lifting,Housework,Dressing, Sleeping Symptom Description Constant but Variable Level of pain today (0-10) 10 Pain scale - at its best (0-10) 10 Pain scale - at its worst (0-10) 10 Wrist/Hand Eval Wrist Range of Motion Left Wrist Extension Active Range of Motion ( 45 degrees degrees) Wrist Flexion Active Range of Motion ( 45 degrees degrees) Wrist Radial Deviation Active Range of 25 degrees Motion (degrees) Wrist Ulnar Deviation Active Range of 30 degrees Motion (degrees) Forearm Supination Active Range of 80 degrees Motion (degrees) Forearm Pronation Active Range of Motion 90 degrees (degrees) Wrist Manual Muscle Testing Left Wrist Extension Strength Grade 3+ Fair+ Wrist Flexion Strength Grade 3+ Fair+ Wrist Radial Deviation Strength Grade 3+ Fair+ Wrist Ulnar Deviation Strength Grade 3+ Fair+ Forearm Supination Strength Grade 3+ Fair+ Forearm Pronation Strength Grade 3+ Fair+ Shift Superintendent Caustic Cresylate/Pinch Strength Right Shift Superintendent Caustic Cresylate Strength Measurement (lbs) 75 Left Shift Superintendent Caustic Cresylate Strength Measurement (lbs) 5 QuickDASH Activities Please rate your ability to do the following activities in the last week by selecting the number below the appropriate response. 1. Open a tight or new jar. Mild difficulty 2. Do heavy miller kiln dried salt (e.g., wash Moderate difficulty ordonez, floors). 3. Carry a shopping bag or briefcase. No difficulty 4. Wash your back. Mild difficulty 5. Use a knife to cut food. Moderate difficulty 6. Recreational activities in which you Moderate difficulty take some force or impact through your arm, shoulder, or hand (e.g., golf, hammering, tennis, etc.). 7. During the past week, to what extent Moderately has your arm, shoulder or hand problem interfered with your normal social activities with family, friends, neighbors or groups? 8. During the past week, were you Moderately limited limited in your work or other regular daily activites as a result of your arm, shoulder or hand problem? 9. Arm, shoulder or hand pain. Moderate 10. Tingling (pins and needles) in your Moderate arm, shoulder or hand. 11. During the past week, how much Mild difficulty difficulty have you had sleeping because of the pain in your arm, shoulder or hand? Quick DASH 28 OT Outpatient Assessment Impairments Problems/Impairments Palpation Tenderness,Impaired Range of Motion,Impaired Strength,Impaired Endurance, Impaired Dressing,Impaired Shower/Bathing,Impaired Household Care,Impaired Work Activities,Subjective C/O Pain Prognosis Rehab Potential Good Clinical Impression Consistent with Diagnosis Yes Short Term Goals Number of Weeks 3 Increase Range of Motion Yes: Flex: 60 Ext: 60 Sup: 90 Increase Strength Yes: 4-/5 throughout left wrist Increase Endurance Yes: Pt will tolerate ~15 minutes of L wrist exercises prior to rest. Decrease Subjective C/O Pain Yes: 6/10 at worst Patient to be Ind w/ HEP Yes: AROM/AAROM exercises Improve Quick Dash Score Yes: Activities: 20 or below Correction Goals Number of Weeks 6 Increase Range of Motion Yes: Flex: 70 Ext: 70 Sup: 90 Increase Strength Yes: 4,5/5 throughout left wrist Increase Endurance Yes: Pt will tolerate L wrist exercises for ~20 minutes prior to rest. Decrease Subjective C/O Pain Yes: 3/10 at worst Patient to be Ind w/ Advanced HEP Yes: Advanced strengthening Improve Quick Dash Score Yes: Activities: 15 or below Outpatient Therapy Plan of Care Treatment Plan May Include Therapeutic Exercise Including Home Yes Exercise Program Manual Therapy Techniques Yes Neuromuscular Re-education Yes Therapeutic Activities to Return to Yes Previous Functional/Work Level ADL/Self Care Education Yes Dry Needling Yes Thermal Modalities Yes Electrical Stimulation Yes Ultrasound/Phonophoresis Yes Iontophoresis Yes Parrafin Yes Orthotics/Bracing/Splinting Yes Massage Yes Eval/Re-Eval Yes Frequency Times per week 2 Duration Number of Weeks 6 Addendums This patient is a candidate for social No or vocational rehab? Patient/Guardian verbally acknowledges Yes understanding of treatment program and consents to further treatment? Patient/Guardian verbally acknowledges Yes understanding of diagnosis, prognosis and goals for treatment? Eval Complexity OT Charge 69016 - Moderate Complexity Shoulder/Elbow Eval Shoulder Objective Measurements Elbow Objective Measurements PHYSICIAN CERTIFICATION: I certify the specified therapy services for Seamus Persaud are required, authorized, and reviewed every 30 days.
== END 2024-01-20 10:05 | disposition home or self-care (01) ==
LOC: OT 10:00
PROVIDERS: Visit Provider Orthopaedic Surgery
DX: G56.02 Carpal tunnel syndrome, left upper limb (principal); Z98.890 Other specified postprocedural states
CPT/HCPCS: 97014; 97035; 97110; 97140; 97166; 97530; G0283

== ENCOUNTER 2024-04-01 21:36 | Emergency (ER) | payer BC, SELFPAY ==
[2024-04-01 21:37] VITALS: BP 142/80; PULSE 103; RESP 18; TEMP 36.8; O2SAT 97; BMI 35.5
[2024-04-01 21:41] VITALS: BP 142/80; PULSE 101; O2SAT 98
--- NOTE | 2024-04-01 21:45 | XR_ITS ---
PROCEDURE INFORMATION: Exam: XR Right Knee Exam date and time: 04/01/2024 10:45 PM Age: 63 years old Clinical indication: Pain; Knee; Right TECHNIQUE: Imaging protocol: Radiologic exam of the right knee. Views: 3 views. Total images: 4 COMPARISON: CR XR KNEE RT 4V 02/05/2021 12:48 PM FINDINGS: Bones/joints: Mild osteopenia. No acute fracture or joint dislocation. Small joint effusion. Mild tricompartment degenerative arthritis. No concerning bone lesions or calcifications. Soft tissues: Unremarkable soft tissues. IMPRESSION: 1. No acute osseous abnormality. 2. Small joint effusion. 3. Mild tricompartment degenerative arthritis.
--- NOTE | 2024-04-01 21:48 | ED_ITS ---
<Statement entered by Miladys Contreras DO - 04/01/24 23:24> I was consulted by the JACQUIE, and we discussed the complexity of the problems being addressed. I approved the treatment and management plan for this patient's care in the emergency department, thus performing a substantive portion of the medical decision making. Miladys Contreras DO Discharge Plan Disposition Patient Disposition: Home, Self-Care Condition: Good Prescriptions Prescriptions: No Action rosuvastatin 40 mg tablet 40 mg PO DAILY oxycodone 10 mg tablet 10 mg PO TID gabapentin 800 mg tablet 800 mg PO TID lisinopril 5 mg tablet 5 mg PO DAILY Qty: 90 0RF metoprolol tartrate 25 mg tablet 25 mg PO BID Qty: 90 0RF pantoprazole 20 mg tablet,delayed release (DR/EC) 20 mg PO BID Qty: 90 0RF torsemide 100 mg tablet 100 mg PO DAILY Qty: 90 3RF hydroxyzine pamoate [Vistaril] 25 mg capsule 25 mg PO TID PRN (Reason: for increased anxiety) Qty: 90 1RF (DME) OneTouch Ultra Test Strip See Rx Instructions .ROUTE .MEDSUPPLY Qty: 10 Rx Instructions: As directed Januvia 100 mg tablet 0 mg PO DAILY Rx Instructions: UNKNOWN DOSE empagliflozin 25 mg tablet 25 mg PO DAILY Qty: 90 3RF amitriptyline 50 mg tablet 50 mg PO DAILY famotidine 20 mg tablet 20 mg PO HS (DME) blood-glucose meter [FreeStyle Lite Meter] Kit See Rx Instructions .ROUTE .MEDSUPPLY Qty: 1 Rx Instructions: As directed (DME) pen needle, diabetic [BD Ultra-Fine Mini Pen Needle] 31 gauge x 3/16 needle See Rx Instructions .ROUTE .MEDSUPPLY Qty: 1200 Rx Instructions: As directed insulin glargine [Lantus Solostar U-100 Insulin] 100 unit/mL (3 mL) insulin pen 22 unit SQ HS (DME) lancets [FreeStyle Lancets] 28 gauge misc See Rx Instructions .ROUTE .MEDSUPPLY Qty: 100 Rx Instructions: As directed albuterol sulfate 90 mcg/actuation HFA aerosol inhaler 2 inh IH QID PRN (Reason: shortness of breath or wheezing) 90 Days Qty: 8.5 2RF ergocalciferol (vitamin D2) 1,250 mcg (50,000 unit) capsule See Rx Instructions .ROUTE .COMPLEX Qty: 10 0RF Dose Instruction: TAKE ONE CAPSULE BY MOUTH EVERY WEEK Rx Instructions: TAKE ONE CAPSULE BY MOUTH EVERY WEEK isosorbide mononitrate 60 mg tablet extended release 24 hr 60 mg PO DAILY Qty: 90 1RF tiotropium bromide [Spiriva with HandiHaler] 18 mcg capsule, w/inhalation device 1 cap inhalation DAILY 90 Days Qty: 180 3RF Rx Instructions: puncture 1 cap using device; one dose = 2 inhalations spironolactone 50 mg tablet See Rx Instructions .ROUTE .COMPLEX Qty: 90 0RF Dose Instruction: TAKE ONE TABLET BY MOUTH ONCE A DAY Rx Instructions: TAKE ONE TABLET BY MOUTH ONCE A DAY clopidogrel 75 mg tablet See Rx Instructions .ROUTE .COMPLEX Qty: 90 3RF Dose Instruction: TAKE ONE TABLET BY MOUTH ONCE A DAY Rx Instructions: TAKE ONE TABLET BY MOUTH ONCE A DAY methocarbamol 500 mg tablet 500 mg PO Q8HP PRN (Reason: spasms) Qty: 10 0RF Referrals Follow up/Referrals: Kyler Holloway [Primary Care Provider] - See instructions Activity Restrictions/Add. Instructions Additional Instructions/Restrictions: Recent findings 7 you were evaluated in the ER and are appropriate for discharge at this time. Take [id number]-axtyllv pain medication such as Tylenol, ibuprofen if needed for pain, do not exceed the recommended dose on the bottles. Wear the Saeed wrap if needed for support, take the Saeed wrap off and perform range of motion exercises multiple times every day. Please make an appointment with your primary care doctor for reevaluation in 2 to 3 days. Return to the ER with new, worsening, or otherwise concerning symptoms. 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 Started hurting today while working. He does work on his feet. He denies injuring his knee. He does have pain with movement and pain when he stands on the knee. He is allergic to tramadol and naproxen saying he gets hives. No other complaints today Related Data Home Medications ?Medication ?Instructions ?Recorded ?Confirmed blood sugar diagnostic (OneTouch #10 ea 11/28/21 01/14/24 Ultra Test strips) sitagliptin phosphate 100 mg 0 mg PO DAILY 11/28/21 01/14/24 tablet (Januvia) oxycodone 10 mg tablet 10 mg PO TID 03/31/23 01/14/24 rosuvastatin 40 mg tablet 40 mg PO DAILY 03/31/23 01/14/24 gabapentin 800 mg tablet 800 mg PO TID 06/16/23 01/14/24 amitriptyline 50 mg tablet 50 mg PO DAILY 12/07/23 01/14/24 blood-glucose meter (FreeStyle #1 ea 12/07/23 01/14/24 Lite Meter kit) famotidine 20 mg tablet 20 mg PO HS 12/07/23 01/14/24 insulin glargine 100 unit/mL (3 22 unit SQ HS 12/07/23 01/14/24 mL) subcutaneous pen (Lantus Solostar U-100 Insulin) lancets 28 gauge (FreeStyle #100 ea 12/07/23 01/14/24 Lancets) pen needle, diabetic 31 gauge x #1,200 ea 12/07/23 01/14/24/ (BD Ultra-Fine Mini Pen Needle) Previous Rx's ?Medication ?Instructions ?Recorded albuterol sulfate 90 mcg/actuation 2 inh inhalation QID PRN shortness 08/14/22 aerosol inhaler of breath or wheezing 90 days #8.5 grams empagliflozin 25 mg tablet 25 mg PO DAILY Diabetes #90 tabs 05/27/23 lisinopril 5 mg tablet 5 mg PO DAILY #90 tabs 06/16/23 metoprolol tartrate 25 mg tablet 25 mg PO BID #90 tabs 06/16/23 pantoprazole 20 mg tablet,delayed 20 mg PO BID #90 tabs 06/16/23 release torsemide 100 mg tablet 100 mg PO DAILY High blood 06/16/23 pressure #90 tabs ergocalciferol (vitamin D2) 1,250 See Rx Instructions .Route 06/23/23 mcg (50,000 unit) capsule .COMPLEX #10 caps methocarbamol 500 mg tablet 500 mg PO Q8HP PRN spasms #10 tabs 09/10/23 isosorbide mononitrate 60 mg 60 mg PO DAILY #90 tabs 12/03/23 tablet,extended release 24 hr hydroxyzine pamoate 25 mg capsule 25 mg PO TID PRN for increased 12/15/23 (Vistaril) anxiety #90 caps tiotropium bromide 18 mcg capsule 1 cap inhalation DAILY 90 days 01/18/24 with inhalation device (Spiriva #180 puffs with HandiHaler) spironolactone 50 mg tablet See Rx Instructions .Route 02/22/24 .COMPLEX #90 tabs clopidogrel 75 mg tablet See Rx Instructions .Route 03/01/24 .COMPLEX #90 tabs Allergies Allergy/AdvReac Type Severity Reaction Status Date / Time naproxen [NAPROXEN] Allergy Mild NA-NAUSEA/V Verified 01/14/24 11:28 OMITING tramadol [TRAMADOL] Allergy Mild NA-NAUSEA Verified 01/14/24 11:28 PFS <Rupa Serrano (ED), [employer] POWERPLANT SUPERVISOR - Last Filed: 04/01/24 22:34> [facility] Disclaimer: The information contained in this section may have been updated after the patient was seen, as this information can be updated by other users. 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 Elevated serum creatinine History of lung cancer in adulthood Stopped smoking with greater than 30 pack year history COPD mixed type Mediastinal lymphadenopathy Hilar lymphadenopathy Dyspnea Typical angina Abnormal result of cardiovascular function study Diabetes Mediastinal lymphadenopathy Pulmonary emphysema COPD (chronic obstructive pulmonary disease) Obstructive sleep apnea (adult) (pediatric) H/O malignant neoplasm of lung Other emphysema Stopped smoking with greater than 30 pack year history Dyspnea on exertion YAMILE (obstructive sleep apnea) Dizziness Lightheaded Hypotension Edema Claudication 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 History of colonoscopy H/O arthroscopy of knee H/O arthroscopy of shoulder Family History Other No significant family history Social History Smoking Status: Never smoker how long ago did patient quit smokin years; in 2017 second hand exposure: No alcohol intake: never counseling given: No counseling provided: provider counseling substance use type: marijuana counseling given: No current occupational status: disabled Travel in the last 8 weeks: None adopted: No caregiver/support person: No foster care: No household members: children housing: apartment lives independently: Yes marital status: single number of children: 4 number of grandchildren: 9 service: Yes (he was honorably discharged; cause of his back; he was in there for 2 years) 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 exposures/hazards: No Hx Recent Travel: No sexually active: No caffeine: Yes physical activity: none working smoke detector in home: Yes fire extinguisher in home: No carbon monox detector in home: Yes firearms in home: No do you feel safe at home: Yes victim of physical abuse: No victim of emotional abuse: No victim of sexual abuse: No would you like helpful sources: No Other Medical History Have you received the Flu Vaccine for this season: No Have you received the Pneumonia Vaccine: No <Rupa Serrano (ED), [employer] POWERPLANT SUPERVISOR - Last Filed: 04/01/24 22:34> ROS Obtained: Yes Systems reviewed as appropriate & no additional complaints except as documented Constitutional Constitutional: Reports as per HPI Physical Exam <Rupa Serrano (ED), D[employer] POWERPLANT SUPERVISOR - Last Filed: 04/01/24 22:34> General General appearance: alert and in no apparent distress Head Head exam: atraumatic and normocephalic Eye Eye exam: Present normal appearance, PERRL and EOMI ENT ENT exam: Present normal exam, normal oropharynx and mucous membranes moist Neck Neck exam: Present full ROM and trachea midline Respiratory Respiratory exam: Present normal lung sounds bilaterally Cardiovascular Cardiovascular exam: Present regular rate, normal rhythm, normal heart sounds, +S1 and +S2 Extremities Exam Extremities exam: Present tenderness, normal capillary refill, edema and joint swelling Neurological Exam Neurological exam: Present alert and oriented X3 Skin Skin exam: Present warm, dry and intact Medical Decision Making <Rupa Serrano (ED), D[employer]EL POWERPLANT SUPERVISOR - Last Filed: 04/01/24 22:34> Medical Records Screening: Per USPSTF and CDC recommendations, given the prevalence of disease in our region, it is our hospital?s policy to screen for HIV and viral Hepatitis for all patients aged 18 and over and those with ongoing risk factors. [place] Inquiry Pt receiving controlled substance: No Vital Signs: 04/01/24 21:37 04/01/24 21:41 04/01/24 22:00 Temperature 98.3 F Temperature Source Oral Pulse Rate 101 H 101 H Pulse Rate [Left Radial] 103 H Respiratory Rate 18 Blood Pressure 142/80 H 132/73 Blood Pressure [Right Arm] 142/80 H Blood Pressure Mean [Right Arm] 100 Blood Pressure Source [Right Arm] Automatic Cuff Blood Pressure Position [Right Arm] Sitting 02 Sat by Pulse Oximetry 97 98 97 Oxygen Delivery Method Room Air 04/01/24 22:30 Temperature Temperature Source Pulse Rate 91 H Pulse Rate [Left Radial] Respiratory Rate Blood Pressure 132/78 Blood Pressure [Right Arm] Blood Pressure Mean [Right Arm] Blood Pressure Source [Right Arm] Blood Pressure Position [Right Arm] 02 Sat by Pulse Oximetry 98 Oxygen Delivery Method Lab Data Lab Results 04/02/24 00:08: WBC 8.0, RBC 4.03 L, Hgb 13.0 L, Hct 37.4 L, MCV 92.8, MCH 32.2 H, MCHC 34.6, RDW 13.5, Plt Count 243, MPV 7.4, Neut % (Auto) 70.0, Lymph % (Auto) 21.5, Howard % (Auto) 5.5, Eos % (Auto) 2.4, Baso % (Auto) 0.7, Neut # (Auto) 5.6, Lymph # (Auto) 1.7, Howard # (Auto) 0.4, Eos # (Auto) 0.2, Baso # (Auto) 0.1, C-Reactive Protein 1.8 04/02/24 00:08 Orders (Tests/Meds): ED MEDICATIONS Discontinued Medications Generic Name Dose Route Start Last Admin Trade Name Freq PRN Reason Stop Dose Admin Hydrocodone Bitart/Acetaminophen 2 tab 04/01/24 21:45 04/01/24 21:51 Hydrocodone/Apap 5/325 Mg Tablet PO 04/01/24 21:46 2 tab ONCE ONE Administration Morphine Sulfate 4 mg 04/01/24 22:18 04/01/24 22:29 Morphine 2mg/Ml Syringe IM 04/01/24 22:19 4 mg ONCE ONE Administration ORDERS Category Date Time Status Knee XR right 3 views [XR knee RT 3V] Stat Exams 04/01/24 21:45 Completed CBC w/Auto Diff [Complete Blood Count Auto Diff] Stat Lab 04/01/24 23:30 Completed CRP [C-Reactive Protein] Stat Lab 04/01/24 23:32 Completed <Miladys Contreras, DO - Last Filed: 04/01/24 23:23> Vital Signs: 04/01/24 21:37 04/01/24 21:41 04/01/24 22:00 Temperature 98.3 F Temperature Source Oral Pulse Rate 101 H 101 H Pulse Rate [Left Radial] 103 H Respiratory Rate 18 Blood Pressure 142/80 H 132/73 Blood Pressure [Right Arm] 142/80 H Blood Pressure Mean [Right Arm] 100 Blood Pressure Source [Right Arm] Automatic Cuff Blood Pressure Position [Right Arm] Sitting 02 Sat by Pulse Oximetry 97 98 97 Oxygen Delivery Method Room Air 04/01/24 22:30 Temperature Temperature Source Pulse Rate 91 H Pulse Rate [Left Radial] Respiratory Rate Blood Pressure 132/78 Blood Pressure [Right Arm] Blood Pressure Mean [Right Arm] Blood Pressure Source [Right Arm] Blood Pressure Position [Right Arm] 02 Sat by Pulse Oximetry 98 Oxygen Delivery Method Lab Data Lab Results 04/02/24 00:08: WBC 8.0, RBC 4.03 L, Hgb 13.0 L, Hct 37.4 L, MCV 92.8, MCH 32.2 H, MCHC 34.6, RDW 13.5, Plt Count 243, MPV 7.4, Neut % (Auto) 70.0, Lymph % (Auto) 21.5, Howard % (Auto) 5.5, Eos % (Auto) 2.4, Baso % (Auto) 0.7, Neut # (Auto) 5.6, Lymph # (Auto) 1.7, Howard # (Auto) 0.4, Eos # (Auto) 0.2, Baso # (Auto) 0.1, C-Reactive Protein 1.8 Orders (Tests/Meds): ED MEDICATIONS Discontinued Medications Generic Name Dose Route Start Last Admin Trade Name Freq PRN Reason Stop Dose Admin Hydrocodone Bitart/Acetaminophen 2 tab 04/01/24 21:45 04/01/24 21:51 Hydrocodone/Apap 5/325 Mg Tablet PO 04/01/24 21:46 2 tab ONCE ONE Administration Morphine Sulfate 4 mg 04/01/24 22:18 10/25/24 22:29 Morphine 2mg/Ml Syringe IM 04/01/24 22:19 4 mg ONCE ONE Administration ORDERS Category Date Time Status Knee XR right 3 views [XR knee RT 3V] Stat Exams 04/01/24 21:45 Completed CBC w/Auto Diff [Complete Blood Count Auto Diff] Stat Lab 04/01/24 23:30 Completed CRP [C-Reactive Protein] Stat Lab 04/01/24 23:32 Completed Medical Decision Narrative: In summary, this patient is a 63 presenting to the Emergency Department for evaluation of atraumatic knee pain. Differential diagnoses considered include but are not limited to fracture, contusion, strain/pain, cartilaginous injury, osteoarthritis, gouty arthritis, septic arthritis. Ruling out the most morbid conditions drove assessment. It should be noted patient's history includes chronic joint pains for which he has had multiple evaluations in the past which may or may not be at goal therapy. This complicates all aspects of care by increasing patient's risk for morbidity. I reviewed patient's past medical records and noted previous evaluations for joint pains. On exam, the patient's knee is not red, hot, angry. He does not have pain with passive range of motion. Doubt septic or gouty arthritis at this time. Workup included x-rays of the knee. Patient was given oral Sandpoint for symptomatic improvement. Patient care signed out to the oncoming provider, Dr. Greenwood, pending XR/reassessment. <Lizy Greenwood MD - Last Filed: 04/02/24 01:00> Vital Signs: 04/01/24 21:37 04/01/24 21:41 04/01/24 22:00 Temperature 98.3 F Temperature Source Oral Pulse Rate 101 H 101 H Pulse Rate [Left Radial] 103 H Respiratory Rate 18 Blood Pressure 142/80 H 132/73 Blood Pressure [Right Arm] 142/80 H Blood Pressure Mean [Right Arm] 100 Blood Pressure Source [Right Arm] Automatic Cuff Blood Pressure Position [Right Arm] Sitting 02 Sat by Pulse Oximetry 97 98 97 Oxygen Delivery Method Room Air 04/01/24 22:30 Temperature Temperature Source Pulse Rate 91 H Pulse Rate [Left Radial] Respiratory Rate Blood Pressure 132/78 Blood Pressure [Right Arm] Blood Pressure Mean [Right Arm] Blood Pressure Source [Right Arm] Blood Pressure Position [Right Arm] 02 Sat by Pulse Oximetry 98 Oxygen Delivery Method Lab Data Lab Results 04/02/24 00:08: WBC 8.0, RBC 4.03 L, Hgb 13.0 L, Hct 37.4 L, MCV 92.8, MCH 32.2 H, MCHC 34.6, RDW 13.5, Plt Count 243, MPV 7.4, Neut % (Auto) 70.0, Lymph % (Auto) 21.5, Howard % (Auto) 5.5, Eos % (Auto) 2.4, Baso % (Auto) 0.7, Neut # (Auto) 5.6, Lymph # (Auto) 1.7, Howard # (Auto) 0.4, Eos # (Auto) 0.2, Baso # (Auto) 0.1, C-Reactive Protein 1.8 Orders (Tests/Meds): ED MEDICATIONS Discontinued Medications Generic Name Dose Route Start Last Admin Trade Name Freq PRN Reason Stop Dose Admin Hydrocodone Bitart/Acetaminophen 2 tab 04/01/24 21:45 04/01/24 21:51 Hydrocodone/Apap 5/325 Mg Tablet PO 04/01/24 21:46 2 tab ONCE ONE Administration Morphine Sulfate 4 mg 04/01/24 22:18 04/01/24 22:29 Morphine 2mg/Ml Syringe IM 04/01/24 22:19 4 mg ONCE ONE Administration ORDERS Category Date Time Status Knee XR right 3 views [XR knee RT 3V] Stat Exams 04/01/24 21:45 Completed CBC w/Auto Diff [Complete Blood Count Auto Diff] Stat Lab 04/01/24 23:30 Completed CRP [C-Reactive Protein] Stat Lab 04/01/24 23:32 Completed Medical Decision Narrative: In summary, this patient is a 63 presenting to the Emergency Department for evaluation of atraumatic knee pain. Differential diagnoses considered include but are not limited to fracture, contusion, strain/pain, cartilaginous injury, osteoarthritis, gouty arthritis, septic arthritis. Ruling out the most morbid conditions drove assessment. It should be noted patient's history includes chronic joint pains for which he has had multiple evaluations in the past which may or may not be at goal therapy. This complicates all aspects of care by increasing patient's risk for morbidity. I reviewed patient's past medical records and noted previous evaluations for joint pains. On exam, the patient's knee is not red, hot, angry. He does not have pain with passive range of motion. Doubt septic or gouty arthritis at this time. Workup included x-rays of the knee. Patient was given oral Sandpoint for symptomatic improvement. Patient care signed out to the oncoming provider, Dr. Greenowod, pending XR/reassessment. Greenwood: Upon my assumption of care patient is stable. He states his pain has been somewhat improved after receiving the morphine and Sandpoint. On my exam, patient has discomfort with range of motion but range of motion is full, he only has trace swelling of the right knee but also has some swelling of the left. I have high suspicion for degenerative changes in the knee. The knee is not warm or erythematous, however without traumatic injury I do have slightly increased discussion for possible septic joint so CBC and CRP were added to workup. CBC does not demonstrate leukocytosis, significantly reassuring. X-ray personally interpreted does not demonstrate fracture, dislocation, or acute osseous injury, however there are degenerative changes. See radiology read for final interpretation. CRP normal. Reassuring against acute infectious or inflammatory Labs and imaging are reassuring against septic arthritis. Patient is appropriate for discharge at this time. Saeed wrap was applied to the knee for comfort. He was given instructions on continued symptomatic monitoring and management, follow-up instructions, and return precautions for the ER. He indicated understanding and the patient was discharged in stable condition. Critical Care <Rupa Serrano (ED), [employer]EL POWERPLANT SUPERVISOR - Last Filed: 04/01/24 22:34> Critical Care Time Critical Care Time: No
[2024-04-01] MEDS: HYDROCODONE/APAP 5/325 MG TABLET 2 TAB PO (21:51)
[2024-04-01 22:00] VITALS: BP 132/73; PULSE 101; O2SAT 97
[2024-04-01] MEDS: MORPHINE 2MG/ML SYRINGE 4 MG IM (22:29)
[2024-04-01 22:30] VITALS: BP 132/78; PULSE 91; O2SAT 98
[2024-04-02 00:16] LABS: Basophils # 0.1 K/mm3 (0-0.2); Basophils % 0.7 % (0.1-2.0); Eosinophils # 0.2 K/mm3 (0.0-0.4); Eosinophils % 2.4 % (0.1-12.0); Hematocrit 37.4 % (42.0-52.0); Lymphocytes # 1.7 K/mm3 (0.7-4.5); Lymphocytes % 21.5 % (10-50); Mean Corpuscular HGB Conc 34.6 g/dL (31.8-35.4); Mean Corpuscular Hemoglobin 32.2 pg (27.0-31.2); Mean Corpuscular Volume 92.8 fl (80-94); Mean Platelet Volume 7.4 fl (7.4-10.4); Monocytes # 0.4 K/mm3 (0.1-1.0); Monocytes % 5.5 % (1.7-9.3); Neutrophils # 5.6 K/mm3 (1.8-7.8); Platelet Count 243 K/mm3 (142-424); Red Blood Count 4.03 M/mm3 (4.60-6.20); Red Cell Distribution Width 13.5 % (11.5-17.5)
[2024-04-02 00:35] LABS: C-Reactive Protein 1.8 mg/L (0-4)
[2024-04-02 01:00] VITALS: BP 132/78; PULSE 98; RESP 18; TEMP 36.5; O2SAT 96
== END 2024-04-02 01:02 | disposition home or self-care (01) ==
PROVIDERS: Emergency Medicine; Emergency Provider Emergency Medicine; PCP Family Medicine
DX: M17.10 Unilateral primary osteoarthritis, unspecified knee (principal); M25.561 Pain in right knee
CPT/HCPCS: 73562; 85025; 86140; 96372; 99283; J2270

== ENCOUNTER 2024-04-06 11:03 | Emergency (ER) | payer BC, SELFPAY ==
[2024-04-06 11:04] VITALS: BP 141/81; PULSE 84; RESP 18; TEMP 36.7; O2SAT 99; BMI 36.4
--- NOTE | 2024-04-06 11:20 | XR_ITS ---
PROCEDURE INFORMATION: Exam: XR Chest Exam date and time: 04/06/2024 11:45 AM Age: 63 years old Clinical indication: Pain; Other: Epigastric; Additional info: Epigfastric/cp after standing TECHNIQUE: Imaging protocol: Radiologic exam of the chest. Views: 1 view. COMPARISON: CT CHEST W CON 01/28/2023 5:30 PM. Chest radiograph dated 06/08/2022. CT chest dated 04/22/2019. FINDINGS: Tubes, catheters and devices: None. Lungs: Left lung volume appears decreased. Lungs appear hyperinflated, compatible with severe emphysematous changes. Bullous changes within the upper lungs bilaterally, worse on the left side. Pleural and lung parenchymal linear scarring identified within the bilateral upper chest. Left perihilar and basilar interstitial opacities appear increased and concerning for acute infiltrates, pneumonia or pneumonitis. Otherwise stable linear atelectasis or scarring in the lower lungs bilaterally. Pleural spaces: See Lungs finding. No pleural effusion identified. No pneumothorax identified. Heart/Mediastinum: Mediastinum and stephanie appear unremarkable. Diaphragm: Elevation of the left hemidiaphragm is demonstrated. Bones/joints: No acute bony abnormality identified. IMPRESSION: 1. Severe pulmonary hyperinflation, emphysema. Pleural-parenchymal scarring in the upper chest bilaterally. 2. Increased left perihilar interstitial opacities concerning for acute infiltrates, pneumonia or pneumonitis. 3. Otherwise, stable linear atelectasis or scarring in the lower lungs bilaterally.
--- NOTE | 2024-04-06 11:21 | PC.NURSE ---
DR DONG AT BEDSIDE
[2024-04-06 11:28] LABS: Basophils # 0.1 K/mm3 (0-0.2); Basophils % 0.6 % (0.1-2.0); Eosinophils # 0.2 K/mm3 (0.0-0.4); Eosinophils % 2.6 % (0.1-12.0); Hematocrit 40.7 % (42.0-52.0); Hemoglobin 13.9 g/dL (14.1-18.0); Lymphocytes # 1.5 K/mm3 (0.7-4.5); Lymphocytes % 19.4 % (10-50); Mean Corpuscular HGB Conc 34.3 g/dL (31.8-35.4); Mean Corpuscular Hemoglobin 31.2 pg (27.0-31.2); Mean Corpuscular Volume 90.9 fl (80-94); Monocytes # 0.5 K/mm3 (0.1-1.0); Monocytes % 6.3 % (1.7-9.3); Neutrophils # 5.3 K/mm3 (1.8-7.8); Neutrophils % 71.1 % (37.0-80.0); Platelet Count 266 K/mm3 (142-424); Red Blood Count 4.47 M/mm3 (4.60-6.20); Red Cell Distribution Width 13.5 % (11.5-17.5); White Blood Count 7.5 K/mm3 (4.8-10.8)
[2024-04-06 11:30] VITALS: BP 127/86; O2SAT 99
[2024-04-06 11:39] LABS: Activated Partial Thrombo Time 26.2 seconds (22.8-30.6); INR 0.91 (0.9-1.1); Prothrombin Time 10.3 seconds (10.1-12.5)
[2024-04-06] MEDS: MORPHINE 4MG/ML SYRINGE 4 MG IV (11:45)
[2024-04-06] MEDS: METOCLOPRAMIDE HCL 10MG/2ML VIAL 10 MG IVP (11:45)
[2024-04-06 11:48] LABS: Albumin Level 4.4 g/dl (3.5-5.0); Chloride 97 mmol/L (98-107); Sodium 132 mmol/L (136-145)
--- NOTE | 2024-04-06 11:48 | PC.NURSE ---
PT MEDICATED PER MAR, CALL LIGHT WITHIN REACH. NO NEEDS AT THIS TIME. DAUGHTER AT BEDSIDE
[2024-04-06 11:51] LABS: Alanine Aminotransferase 45 U/L (12-78); Albumin/Globulin Ratio 1.6 (1.1-1.8); Alkaline Phosphatase 86 U/L (38-126); Aspartate Amino Transferase 72 U/L (17-59); Bilirubin,Total 1.1 mg/dl (0.2-1.3); Blood Urea Nitrogen 34 mg/dl (9-20); Carbon Dioxide 26 mmol/L (22.0-30.0); Creatinine Clearance Estimated 75 mL/min (50-200); Estimated Glomerular Filt Rate 48 ml/min (>60); GFR (African American) 58 ML/MIN (>60); Globulin 2.8 g/dL (1.3-3.2); Lipase 399 U/L (23-300); Total Protein,Serum 7.2 g/dl (6.3-8.2)
--- NOTE | 2024-04-06 11:51 | PC.NURSE ---
XR AT BEDSIDE
[2024-04-06 11:52] LABS: Calcium 9.3 mg/dl (8.4-10.2); Glucose 296 mg/dl (74-100)
[2024-04-06 11:53] LABS: Lactic Acid 1.4 mmol/L (0.7-2.1)
[2024-04-06 12:00] VITALS: BP 137/84; O2SAT 99
[2024-04-06 12:01] LABS: NT Pro Brain Natriuretic Pep. 321 pg/mL (0-125)
--- NOTE | 2024-04-06 12:02 | HMH.EDGENADL ---
Discharge Plan Disposition Patient Disposition: Home, Self-Care Prescriptions Prescriptions: New metoclopramide HCl [Reglan] 10 mg tablet 10 mg PO Q6H PRN (Reason: nausea and vomiting) Qty: 14 0RF No Action rosuvastatin 40 mg tablet 40 mg PO DAILY oxycodone 10 mg tablet 10 mg PO TID gabapentin 800 mg tablet 800 mg PO TID lisinopril 5 mg tablet 5 mg PO DAILY Qty: 90 0RF metoprolol tartrate 25 mg tablet 25 mg PO BID Qty: 90 0RF pantoprazole 20 mg tablet,delayed release (DR/EC) 20 mg PO BID Qty: 90 0RF torsemide 100 mg tablet 100 mg PO DAILY Qty: 90 3RF Mounjaro 2.5 mg/0.5 mL pen injector 2.5 mg SQ QWEEK hydroxyzine pamoate [Vistaril] 25 mg capsule 25 mg PO TID PRN (Reason: for increased anxiety) Qty: 90 1RF (DME) OneTouch Ultra Test Strip See Rx Instructions .ROUTE .MEDSUPPLY Qty: 10 Rx Instructions: As directed Januvia 100 mg tablet 0 mg PO DAILY Rx Instructions: UNKNOWN DOSE empagliflozin 25 mg tablet 25 mg PO DAILY Qty: 90 3RF amitriptyline 50 mg tablet 50 mg PO DAILY famotidine 20 mg tablet 20 mg PO HS (DME) blood-glucose meter [FreeStyle Lite Meter] Kit See Rx Instructions .ROUTE .MEDSUPPLY Qty: 1 Rx Instructions: As directed (DME) pen needle, diabetic [BD Ultra-Fine Mini Pen Needle] 31 gauge x 3/16 needle See Rx Instructions .ROUTE .MEDSUPPLY Qty: 1200 Rx Instructions: As directed insulin glargine [Lantus Solostar U-100 Insulin] 100 unit/mL (3 mL) insulin pen 22 unit SQ HS (DME) lancets [FreeStyle Lancets] 28 gauge misc See Rx Instructions .ROUTE .MEDSUPPLY Qty: 100 Rx Instructions: As directed albuterol sulfate 90 mcg/actuation HFA aerosol inhaler 2 inh IH QID PRN (Reason: shortness of breath or wheezing) 90 Days Qty: 8.5 2RF ergocalciferol (vitamin D2) 1,250 mcg (50,000 unit) capsule See Rx Instructions .ROUTE .COMPLEX Qty: 10 0RF Dose Instruction: TAKE ONE CAPSULE BY MOUTH EVERY WEEK Rx Instructions: TAKE ONE CAPSULE BY MOUTH EVERY WEEK isosorbide mononitrate 60 mg tablet extended release 24 hr 60 mg PO DAILY Qty: 90 1RF tiotropium bromide [Spiriva with HandiHaler] 18 mcg capsule, w/inhalation device 1 cap inhalation DAILY 90 Days Qty: 180 3RF Rx Instructions: puncture 1 cap using device; one dose = 2 inhalations spironolactone 50 mg tablet See Rx Instructions .ROUTE .COMPLEX Qty: 90 0RF Dose Instruction: TAKE ONE TABLET BY MOUTH ONCE A DAY Rx Instructions: TAKE ONE TABLET BY MOUTH ONCE A DAY clopidogrel 75 mg tablet See Rx Instructions .ROUTE .COMPLEX Qty: 90 3RF Dose Instruction: TAKE ONE TABLET BY MOUTH ONCE A DAY Rx Instructions: TAKE ONE TABLET BY MOUTH ONCE A DAY methocarbamol 500 mg tablet 500 mg PO Q8HP PRN (Reason: spasms) Qty: 10 0RF Referrals Follow up/Referrals: Kyler Holloway [Primary Care Provider] - See instructions Activity Restrictions/Add. Instructions Additional Instructions/Restrictions: Talk to your family doctor about decreasing your weight loss medication Mounjaro as a result of pancreatitis and abdominal pain. Call your family doctor to establish care for this visit to the emergency department and schedule follow-up within 48 hours to ensure improvement. If you have any worsening of your condition or any other concerning signs or symptoms, return to the emergency department or your primary care doctor for further evaluation. Clinical Impressions Clinical Impression: Pancreatitis Instructions Patient Instructions: DI for Acute Abdominal Pain Print Language Print Language: [place] Discharge ED Provider: Nilson Davis General Adult HPI General Chief complaint: Abdominal Pain Stated complaint: stomach pain radiating to back Time Seen by Provider: 04/06/24 11:19 Mode of Arrival: Wheelchair Source of Information: Patient Limitations: No Limitations Description of Symptoms (Recalled from ER Triage Doc. by RN): PT C/O WEEK LONG UPPER EPIGASTRIC PAIN THAT RADIATES TO BACK ON BOTH SIDES. PT REPORTS NAUSEA, NO VOMITING. LAST BM 2 DAYS AGO. History of Present Illness HPI narrative: Please note that above description of symptoms, in this electronic medical record under categorization of recalled from ER triage doctor by RN are reflective of an initial nursing assessment, however, is not reflective of my full history and physical exam that was personally taken and clarified. Consequentially, this preceding description of symptoms, which may include the patient's categorized chief complaint in the EMR, do not reflect my personal clinical impression, and the ultimate description of history of present illness and patient stated complaints should be deferred to this section of the note. Unless stated otherwise or congruent with this section of the note, additional signs, symptoms, or incongruence should be interpreted as inaccurate with my clinical impression. Related Data Home Medications ?Medication ?Instructions ?Recorded ?Confirmed blood sugar diagnostic (OneTouch #10 ea 11/28/21 04/06/24 Ultra Test strips) sitagliptin phosphate 100 mg 0 mg PO DAILY 11/28/21 04/06/24 tablet (Januvia) oxycodone 10 mg tablet 10 mg PO TID 03/31/23 04/06/24 rosuvastatin 40 mg tablet 40 mg PO DAILY 03/31/23 04/06/24 gabapentin 800 mg tablet 800 mg PO TID 06/16/23 04/06/24 amitriptyline 50 mg tablet 50 mg PO DAILY 12/07/23 04/06/24 blood-glucose meter (FreeStyle #1 12/07/23 04/06/24 Lite Meter kit) famotidine 20 mg tablet 20 mg PO HS 12/07/23 04/06/24 insulin glargine 100 unit/mL (3 22 unit SQ HS 12/07/23 04/06/24 mL) subcutaneous pen (Lantus Solostar U-100 Insulin) lancets 28 gauge (FreeStyle #100 ea 12/07/23 04/06/24 Lancets) pen needle, diabetic 31 gauge x #1,200 12/07/23 04/06/24 3/16 (BD Ultra-Fine Mini Pen Needle) tirzepatide 2.5 mg/0.5 mL 2.5 mg SQ QWEEK 04/06/24 04/06/24 subcutaneous pen injector (Arabella) Previous Rx's ?Medication ?Instructions ?Recorded albuterol sulfate 90 mcg/actuation 2 inh inhalation QID PRN shortness 08/14/22 aerosol inhaler of breath or wheezing 90 days #8.5 grams empagliflozin 25 mg tablet 25 mg PO DAILY Diabetes #90 tabs 05/27/23 lisinopril 5 mg tablet 5 mg PO DAILY #90 tabs 06/16/23 metoprolol tartrate 25 mg tablet 25 mg PO BID #90 tabs 06/16/23 pantoprazole 20 mg tablet,delayed 20 mg PO BID #90 tabs 06/16/23 release torsemide 100 mg tablet 100 mg PO DAILY High blood 06/16/23 pressure #90 tabs ergocalciferol (vitamin D2) 1,250 See Rx Instructions .Route 06/23/23 mcg (50,000 unit) capsule .COMPLEX #10 caps methocarbamol 500 mg tablet 500 mg PO Q8HP PRN spasms #10 tabs 09/10/23 isosorbide mononitrate 60 mg 60 mg PO DAILY #90 tabs 12/03/23 tablet,extended release 24 hr hydroxyzine pamoate 25 mg capsule 25 mg PO TID PRN for increased 12/15/23 (Vistaril) anxiety #90 caps tiotropium bromide 18 mcg capsule 1 cap inhalation DAILY 90 days 01/18/24 with inhalation device (Spiriva #180 puffs with HandiHaler) spironolactone 50 mg tablet See Rx Instructions .Route 02/22/24 .COMPLEX #90 tabs clopidogrel 75 mg tablet See Rx Instructions .Route 03/01/24 .COMPLEX #90 tabs metoclopramide HCl 10 mg tablet 10 mg PO Q6H PRN nausea and 04/06/24 (Reglan) vomiting #14 tabs Allergies Allergy/AdvReac Type Severity Reaction Status Date / Time naproxen [NAPROXEN] Allergy Mild NA-NAUSEA/V Verified 04/06/24 10:46 OMITING tramadol [TRAMADOL] Allergy Mild NA-NAUSEA Verified 04/06/24 10:46 PFSH PFSH Disclaimer: The information contained in this section may have been updated after the patient was seen, as this information can be updated by other users. 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 Elevated serum creatinine History of lung cancer in adulthood Stopped smoking with greater than 30 pack year history COPD mixed type Mediastinal lymphadenopathy Hilar lymphadenopathy Dyspnea Typical angina Abnormal result of cardiovascular function study Diabetes Mediastinal lymphadenopathy Pulmonary emphysema COPD (chronic obstructive pulmonary disease) Obstructive sleep apnea (adult) (pediatric) H/O malignant neoplasm of lung Other emphysema Stopped smoking with greater than 30 pack year history Dyspnea on exertion YAMILE (obstructive sleep apnea) Dizziness Lightheaded Hypotension Edema Claudication 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 History of colonoscopy H/O arthroscopy of knee H/O arthroscopy of shoulder Family History Other No significant family history Social History Smoking Status: Former smoker tobacco type: cigarettes packs per day: 1 how long ago did patient quit smokin years; in 2017 second hand exposure: No alcohol intake: never counseling given: No counseling provided: provider counseling substance use type: marijuana counseling given: No current occupational status: disabled Travel in the last 8 weeks: None adopted: No caregiver/support person: No foster care: No household members: children housing: apartment lives independently: Yes marital status: single number of children: 4 number of grandchildren: 9 service: Yes (he was honorably discharged; cause of his back; he was in there for 2 years) 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 exposures/hazards: No Hx Recent Travel: No sexually active: No caffeine: Yes physical activity: none working smoke detector in home: Yes fire extinguisher in home: No carbon monox detector in home: Yes firearms in home: No do you feel safe at home: Yes victim of physical abuse: No victim of emotional abuse: No victim of sexual abuse: No would you like helpful sources: No Other Medical History Have you received the Flu Vaccine for this season: No Have you received the Pneumonia Vaccine: No ROS Obtained: Yes All systems reviewed & no additional complaints except as documented Physical Exam General General appearance: alert and obese Head Head exam: atraumatic and normocephalic Eye Eye exam: Present normal appearance, PERRL and EOMI Neck Neck exam: Present normal inspection, full ROM and trachea midline Respiratory Respiratory exam: Absent respiratory distress, wheezes, stridor, accessory muscle use or prolonged expiratory phase Cardiovascular Cardiovascular exam: Present regular rate, normal rhythm and other (Pulses equal symmetric in upper and lower extremities) Abdominal Exam Abdominal exam: Present soft, distention and tenderness; Absent guarding, rebound, rigidity or pulsatile mass Abdominal tenderness: Present epigastrium Extremities Exam Extremities exam: Absent edema Neurological Exam Neurological exam: Present alert, oriented X3 and CN II-XII intact; Absent motor sensory deficit Skin Skin exam: Present warm and dry; Absent diaphoresis or erythema Medical Decision Making Medical Records Medical records reviewed: Yes I reviewed the patient's medical records. Screening: Per USPSTF and CDC recommendations, given the prevalence of disease in our region, it is our hospital?s policy to screen for HIV and viral Hepatitis for all patients aged 18 and over and those with ongoing risk factors. [place] Inquiry Pt receiving controlled substance: No [place] was queried for this patient: No Vital Signs: 04/06/24 11:04 Temperature 98.0 F Temperature Source Oral Pulse Rate [Radial] 84 Respiratory Rate 18 Blood Pressure [Left Arm] 141/81 H Blood Pressure Mean [Left Arm] 101 Blood Pressure Source [Left Arm] Automatic Cuff Blood Pressure Position [Left Arm] Sitting 02 Sat by Pulse Oximetry 99 Oxygen Delivery Method Room Air Lab Data Lab Results 04/06/24 11:16: WBC 7.5, RBC 4.47 L, Hgb 13.9 L, Hct 40.7 L, MCV 90.9, MCH 31.2, MCHC 34.3, RDW 13.5, Plt Count 266, MPV 7.0 L, Neut % (Auto) 71.1, Lymph % (Auto) 19.4, Foster % (Auto) 6.3, Eos % (Auto) 2.6, Baso % (Auto) 0.6, Neut # (Auto) 5.3, Lymph # (Auto) 1.5, Foster # (Auto) 0.5, Eos # (Auto) 0.2, Baso # (Auto) 0.1, PT 10.3, INR 0.91, APTT 26.2, Sodium 132 L, Potassium 4.0, Chloride 97 L, Carbon Dioxide 26, Anion Gap 13.0, BUN 34 H, Creatinine 1.50 H, Estimated Creat Clear 75, Estimated GFR 48 L, Est GFR ( Amer) 58 L, Glucose 296 H, Lactate 1.4, Calcium 9.3, Total Bilirubin 1.1, AST 72 H, ALT 45, Alkaline Phosphatase 86, Troponin I < 0.01, NT-Pro-B Natriuret Pep 321 H, Total Protein 7.2, Albumin 4.4, Globulin 2.8, Albumin/Globulin Ratio 1.6, Lipase 399 H, HIV 1&2 Antibody Rapid Nonreactive 04/06/24 11:16 04/06/24 11:16 Orders (Tests/Meds): ED MEDICATIONS Discontinued Medications Generic Name Dose Route Start Last Admin Trade Name Miltonq PRN Reason Stop Dose Admin Sodium Chloride 1,000 mls @ 999 mls/hr 04/06/24 12:08 04/06/24 12:18 Sod Chlor 0.9% 1000ml Bag IV 04/06/24 13:08 999 mls/hr .Q1H1M ONE Administration Iopamidol 75 ml 04/06/24 12:30 04/06/24 12:31 Iopamidol-370 (76%);100ml Bottle IV 04/06/24 12:31 75 ml ONCE ONE Administration Metoclopramide HCl 10 mg 04/06/24 11:30 04/06/24 11:45 Metoclopramide Hcl 10mg/2ml Vial IVP 04/06/24 11:31 10 mg ONCE ONE Administration Morphine Sulfate 4 mg 04/06/24 11:30 04/06/24 11:45 Morphine 4mg/Ml Syringe IV 04/06/24 11:31 4 mg ONCE ONE Administration Sodium Chloride 10 ml 04/06/24 12:30 04/06/24 12:31 Sodium Chloride 0.9% 10ml Syr (Rad Only) IV 04/06/24 12:31 10 ml ONCE ONE Administration ORDERS Category Date Time Status CT abdomen pelvis w con Stat Cat Scan 04/06/24 12:08 Completed XR chest portable Stat Exams 04/06/24 11:20 Completed Complete Blood Count Auto Diff Stat Lab 04/06/24 11:16 Completed Comprehensive Metabolic Panel Stat Lab 04/06/24 11:16 Completed HIV (1&2) Antibody Rapid Stat Lab 04/06/24 11:16 Completed Hep C Ab with Reflex to RNA Stat Lab 04/06/24 11:16 Received Lactic Acid Stat Lab 04/06/24 11:16 Completed Lipase Stat Lab 04/06/24 11:16 Completed NT Pro Brain Natriuretic Pep. Stat Lab 04/06/24 11:16 Completed PT INR [Prothrombin Time INR] Stat Lab 04/06/24 11:16 Completed PTT [Activated Partial Thrombo Time] Stat Lab 04/06/24 11:16 Completed Troponin I Q3H Lab 04/06/24 14:30 Ordered Troponin I Q3H Lab 04/06/24 17:30 Ordered Troponin I Stat Lab 04/06/24 11:16 Completed Medical Decision Narrative: 63-year-old male history of hypertension, hyperlipidemia, COPD not on home oxygen, diabetes on GLP-1 agonist injection presenting with epigastric pain. Patient states that he was in cardiology office just before this. He was complaining of epigastric pain that radiates around to bilateral flanks. No chest pain, shortness of breath, but he has been nauseated without vomiting. Last bowel movement was a couple days ago, this is normal for him, no blood in his bowel movements. Has been tolerating p.o. intake without issue. Has tried taking the, this has not helped much with the pain. It is currently moderate to severe in intensity, epigastric and not currently radiating. History was obtained via conversation with patient. On arrival, patient hemodynamically stable, alert, oriented x4, appropriate, GCS 15, moving all extremities spontaneously, pupils equal and reactive to light. Full physical exam performed and significant for obese male who is in mild distress secondary to pain. Holding his epigastrium. Speaking in full sentences. Abdomen is soft, distended, and tender in the epigastrium with mild to moderate tenderness. No rebound, rigidity, or guarding. No flank tenderness. No overlying skin changes. Differential includes PUD, gastritis, gastroparesis, pancreatitis, viscus perforation, ACS, MO, mesenteric ischemia, aortic pathology, among others. Patient placed on continuous cardiac monitoring and continuous pulse ox with initial blood pressure 141/81, heart rate 84, saturation 99% on room air. Independent interpretation of EKG shows 81 bpm sinus rhythm without ischemic change. Intervals within normal limits. Patient was given morphine and Reglan for symptomatic management and correction of underlying abnormalities. Workup independently interpreted and significant for nonactionable CBC. Chemistry with mild hyponatremia and hypochloremia. Stable CKD. Lactate negative. BNP mildly elevated at 320. Lipase elevated 399. Because normal lactate, elevated lipase, CT with contrast was ordered. On independent interpretation of imaging, no acute intra-abdominal abnormality. See radiology read for full review of final results. On reevaluation, patient able to tolerate p.o. intake, feeling better, ready to go. I feel this is appropriate. Because patient at baseline without signs or symptoms of clinical decompensation, deemed appropriate for discharge. Results were relayed to patient who voiced understanding and were agreeable to outpatient management and follow up. I discussed my clinical impression with patient and answered all questions. At this time, the evidence for any other entities in the differential is insufficient to warrant any further testing or ED observation. This was explained as well. Advisory was given that persistent or worsening symptoms require further evaluation. I confirmed the understanding of this discussion. Office Administration disclaimer Much of this encounter note is an electronic rug cleaner hand spoken language to printed text. Electronic rug cleaner hand of the spoken language may permit errors. Although I have reviewed the note, some errors may still exist. Critical Care Critical Care Time Critical Care Time: No
--- NOTE | 2024-04-06 12:08 | CT_ITS ---
PROCEDURE INFORMATION: Exam: CT Abdomen And Pelvis With Contrast Exam date and time: 04/06/2024 12:26 PM Age: 63 years old Clinical indication: Abdominal pain; Additional info: Epigastric pain, vomiting TECHNIQUE: Imaging protocol: Computed tomography of the abdomen and pelvis with contrast. Radiation optimization: All CT scans at this facility use at least one of these dose optimization techniques: automated exposure control; mA and/or kV adjustment per patient size (includes targeted exams where dose is matched to clinical indication); or iterative reconstruction. Contrast material: ISOVUE; Contrast volume: 75 ml; Contrast route: IV; COMPARISON: CT ABDOMEN PELVIS WO CON 03/19/2021 10:26 PM FINDINGS: Lungs: Pulmonary emphysema identified within the lungs. Bullous changes identified within the bilateral mid to upper lungs. Incomplete visualization of the upper lungs. Evidence for lung calcified granulomas in the bilateral chest. Bilateral pleuroparenchymal pulmonary linear scarring, fibrotic changes identified within lungs. Chronic bilateral parahilar and basilar scarring appears similar since March 2021 and is worse on the left side. Coronary arteries: Coronary arterial calcifications are demonstrated. Liver: Liver demonstrates diffuse mild hypodensity. Gallbladder and biliary ducts: The gallbladder has been surgically removed. Surgical clips identified in the gallbladder fossa. Post cholecystectomy common biliary duct ectasia. If clinically indicated, consider correlation with liver function tests. Pancreas: Unremarkable. Spleen: Incidental calcification noted within the spleen, compatible with old granulomatous disease. Adrenal glands: Normal. No mass. Kidneys and ureters: Unremarkable. No hydronephrosis or calculi. Stomach and bowel: Unremarkable. No obstruction, ileus or definite inflammation. Appendix: The visualized appendix appears unremarkable. Intraperitoneal space: No free air. No significant fluid collection. Vasculature: Abdominal aortic aneurysm is demonstrated. Abdominal aortic aneurysm measurement: Fusiform dilatation of the distal aorta measuring 3.1 cm on axial image 76. Mild ectasia of the mid abdominal aorta measuring 2.8 cm on axial image 66.. [id number] atherosclerotic calcification demonstrated within the aorta. [id number] diffuse atherosclerotic arterial vascular wall calcifications are demonstrated. Left common iliac artery aneurysm measures 19 mm. Fusiform dilatation of the right common iliac artery measuring 17 mm. Lymph nodes: No enlarged lymph nodes. Urinary bladder: Unremarkable as visualized. Reproductive: Unremarkable as visualized. Bones/joints: Mild to moderate generalized bony degenerative changes. Disc and osteophyte complexes with mild to moderate central canal and foraminal narrowing within the lumbar spine. Bony structures appear otherwise unremarkable. Soft tissues: Unremarkable. Other findings: Limited study with motion artifact. IMPRESSION: 1. Pulmonary emphysema. Pulmonary fibrosis. 2. Possible mild hepatic steatosis. Consider correlation with liver function tests. 3. Abdominal aortic aneurysm, as described above. 4. Bilateral common iliac arterial aneurysms. 5. Chronic findings.
[2024-04-06 12:12] LABS: Troponin I < 0.01 ng/ml (0.00-0.034)
--- NOTE | 2024-04-06 12:15 | ECG_ITS ---
APPROVED REPORT Exam: Resting ECG HR:81 bpm ECG Measurements Heart Rate 81 AXES ID 128 P 15 QRSd 104 QRS 14 QT 385 T 2 QTc 422 Conclusion SINUS RHYTHM NORMAL ECG UNCONFIRMED REPORT Electronically signed by : DANIELLE DEL ROSARIO, 04/07/2024 06:50:04
[2024-04-06] MEDS: 0.9 % SODIUM CHLORIDE 1000ML 1,000 ML 999 ML IV (12:18)
[2024-04-06 12:30] VITALS: BP 124/71; O2SAT 100
[2024-04-06] MEDS: SODIUM CHLORIDE 0.9% 10ML SYR (RAD ONLY) 10 ML IV (12:31)
[2024-04-06] MEDS: IOPAMIDOL-370 (76%);100ML BOTTLE 75 ML IV (12:31)
--- NOTE | 2024-04-06 12:40 | PC.NURSE ---
ROUNDED ON PT, UPDATED ON POC. NO NEEDS AT THIS TIME. CALL LIGHT WITHIN REACH. FAMILY AT BEDSIDE
[2024-04-06 12:53] LABS: HIV (1&2) Antibody Rapid NONREACTIVE (NONREACTIVE)
[2024-04-06 13:00] VITALS: BP 138/75; O2SAT 99
--- NOTE | 2024-04-06 13:20 | PC.NURSE ---
PT ASSISTED TO BR
[2024-04-06 13:40] VITALS: BP 138/75; PULSE 82; RESP 18; TEMP 36.6; O2SAT 100
[2024-04-07 05:25] LABS: HCV Ab Non Reactive (Non Reactive)
== END 2024-04-06 13:40 | disposition home or self-care (01) ==
PROVIDERS: Emergency Provider Emergency Medicine; PCP Family Medicine
DX: K85.90 Acute pancreatitis without necrosis or infection, unspecified (principal); R10.13 Epigastric pain; R11.0 Nausea
CPT/HCPCS: 71045; 74177; 80053; 83605; 83690; 83880; 84484; 85025; 85610; 85730; 86803; 87389; 93005; 96361; 96374; 96375; 99285; J2270; J2765; J7030; Q9967

== ENCOUNTER 2024-04-14 16:59 | Emergency (ER) | payer BC, SELFPAY ==
[2024-04-14 17:01] VITALS: BP 147/73; PULSE 79; RESP 20; TEMP 36.6; O2SAT 96; BMI 36.6
[2024-04-14 17:04] VITALS: BP 147/73; PULSE 74; O2SAT 96
--- NOTE | 2024-04-14 17:32 | XR_ITS ---
PROCEDURE INFORMATION: Exam: XR Right Knee Exam date and time: 04/14/2024 5:30 PM Age: 63 years old Clinical indication: Pain; Knee; Right; Additional info: Severe anteromedial pain, able to ambulate. TECHNIQUE: Imaging protocol: Radiologic exam of the right knee. Views: 3 views. COMPARISON: CR XR KNEE RT 3V 04/01/2024 10:45 PM FINDINGS: Bones/joints: Mild medial compartment joint space narrowing. No acute fracture. Soft tissues: Normal. IMPRESSION: 1. No evidence for acute fracture. 2. Mild medial compartment joint space narrowing.
[2024-04-14] MEDS: LIDOCAINE 5% TRANSDERMAL PATCH 1 EACH TP (18:50)
--- NOTE | 2024-04-14 19:04 | ED_ITS ---
Discharge Plan Disposition Patient Disposition: Home, Self-Care Prescriptions Prescriptions: No Action rosuvastatin 40 mg tablet 40 mg PO DAILY oxycodone 10 mg tablet 10 mg PO TID gabapentin 800 mg tablet 800 mg PO TID lisinopril 5 mg tablet 5 mg PO DAILY Qty: 90 0RF metoprolol tartrate 25 mg tablet 25 mg PO BID Qty: 90 0RF pantoprazole 20 mg tablet,delayed release (DR/EC) 20 mg PO BID Qty: 90 0RF torsemide 100 mg tablet 100 mg PO DAILY Qty: 90 3RF Mounjaro 2.5 mg/0.5 mL pen injector 2.5 mg SQ QWEEK hydroxyzine pamoate [Vistaril] 25 mg capsule 25 mg PO TID PRN (Reason: for increased anxiety) Qty: 90 1RF (DME) OneTouch Ultra Test Strip See Rx Instructions .ROUTE .MEDSUPPLY Qty: 10 Rx Instructions: As directed Januvia 100 mg tablet 0 mg PO DAILY Rx Instructions: UNKNOWN DOSE empagliflozin 25 mg tablet 25 mg PO DAILY Qty: 90 3RF amitriptyline 50 mg tablet 50 mg PO DAILY famotidine 20 mg tablet 20 mg PO HS (DME) blood-glucose meter [FreeStyle Lite Meter] Kit See Rx Instructions .ROUTE .MEDSUPPLY Qty: 1 Rx Instructions: As directed (DME) pen needle, diabetic [BD Ultra-Fine Mini Pen Needle] 31 gauge x 3/16 needle See Rx Instructions .ROUTE .MEDSUPPLY Qty: 1200 Rx Instructions: As directed insulin glargine [Lantus Solostar U-100 Insulin] 100 unit/mL (3 mL) insulin pen 22 unit SQ HS (DME) lancets [FreeStyle Lancets] 28 gauge misc See Rx Instructions .ROUTE .MEDSUPPLY Qty: 100 Rx Instructions: As directed albuterol sulfate 90 mcg/actuation HFA aerosol inhaler 2 inh IH QID PRN (Reason: shortness of breath or wheezing) 90 Days Qty: 8.5 2RF ergocalciferol (vitamin D2) 1,250 mcg (50,000 unit) capsule See Rx Instructions .ROUTE .COMPLEX Qty: 10 0RF Dose Instruction: TAKE ONE CAPSULE BY MOUTH EVERY WEEK Rx Instructions: TAKE ONE CAPSULE BY MOUTH EVERY WEEK isosorbide mononitrate 60 mg tablet extended release 24 hr 60 mg PO DAILY Qty: 90 1RF tiotropium bromide [Spiriva with HandiHaler] 18 mcg capsule, w/inhalation device 1 cap inhalation DAILY 90 Days Qty: 180 3RF Rx Instructions: puncture 1 cap using device; one dose = 2 inhalations spironolactone 50 mg tablet See Rx Instructions .ROUTE .COMPLEX Qty: 90 0RF Dose Instruction: TAKE ONE TABLET BY MOUTH ONCE A DAY Rx Instructions: TAKE ONE TABLET BY MOUTH ONCE A DAY clopidogrel 75 mg tablet See Rx Instructions .ROUTE .COMPLEX Qty: 90 3RF Dose Instruction: TAKE ONE TABLET BY MOUTH ONCE A DAY Rx Instructions: TAKE ONE TABLET BY MOUTH ONCE A DAY metoclopramide HCl [Reglan] 10 mg tablet 10 mg PO Q6H PRN (Reason: nausea and vomiting) Qty: 14 0RF methocarbamol 500 mg tablet 500 mg PO Q8HP PRN (Reason: spasms) Qty: 10 0RF Referrals Follow up/Referrals: Kyler Holloway [Primary Care Provider] - See instructions Activity Restrictions/Add. Instructions Additional Instructions/Restrictions: Call your family doctor to establish care for this visit to the emergency department and schedule follow-up within 48 hours to ensure improvement. If you have any worsening of your condition or any other concerning signs or symptoms, return to the emergency department or your primary care doctor for further evaluation. Talk to your doctor about compression socks or order some online to help some of the fluid work back out of your legs and to help with some of the swelling and pain. Clinical Impressions Clinical Impression: Acute bilateral knee pain Print Language Print Language: Latvian Discharge ED Provider: Nilson Davis General Adult HPI General Chief complaint: PAIN Stated complaint: Bilateral knee pain Time Seen by Provider: 04/14/24 17:10 Mode of Arrival: Family Vehicle Source of Information: Patient and Medical Record Limitations: No Limitations Description of Symptoms (Recalled from ER Triage Doc. by RN): Pt c/o worsening chronic bilat knee pain R > L. Denies any falls or recent trauma. He feels the knees are hot . He has been referred to orthopedics and will see them on Wednesday 04/18. Denies any fever, chills, or n/v/d. States he has tried everything and nothing helps the pain. History of Present Illness HPI narrative: Please note that above description of symptoms, in this electronic medical record under categorization of recalled from ER triage doctor by RN are reflective of an initial nursing assessment, however, is not reflective of my full history and physical exam that was personally taken and clarified. Consequentially, this preceding description of symptoms, which may include the patient's categorized chief complaint in the EMR, do not reflect my personal clinical impression, and the ultimate description of history of present illness and patient stated complaints should be deferred to this section of the note. Unless stated otherwise or congruent with this section of the note, additional signs, symptoms, or incongruence should be interpreted as inaccurate with my clinical impression. Related Data Home Medications ?Medication ?Instructions ?Recorded ?Confirmed blood sugar diagnostic (OneTouch #10 ea 11/28/21 04/06/24 Ultra Test strips) sitagliptin phosphate 100 mg 0 mg PO DAILY 11/28/21 04/06/24 tablet (Januvia) oxycodone 10 mg tablet 10 mg PO TID 03/31/23 04/06/24 rosuvastatin 40 mg tablet 40 mg PO DAILY 03/31/23 04/06/24 gabapentin 800 mg tablet 800 mg PO TID 06/16/23 04/06/24 amitriptyline 50 mg tablet 50 mg PO DAILY 12/07/23 04/06/24 blood-glucose meter (FreeStyle #1 ea 12/07/23 04/06/24 Lite Meter kit) famotidine 20 mg tablet 20 mg PO HS 12/07/23 04/06/24 insulin glargine 100 unit/mL (3 22 unit SQ 12/07/23 04/06/24 mL) subcutaneous pen (Lantus Solostar U-100 Insulin) lancets 28 gauge (FreeStyle #100 ea 12/07/23 04/06/24 Lancets) pen needle, diabetic 31 gauge x #1,200 ea 12/07/23 04/06/24 3/16 (BD Ultra-Fine Mini Pen Needle) tirzepatide 2.5 mg/0.5 mL 2.5 mg SQ QWEEK 04/06/24 04/06/24 subcutaneous pen injector (Arabella) Previous Rx's ?Medication ?Instructions ?Recorded albuterol sulfate 90 mcg/actuation 2 inh inhalation QID PRN shortness 08/14/22 aerosol inhaler of breath or wheezing 90 days #8.5 grams empagliflozin 25 mg tablet 25 mg PO DAILY Diabetes #90 tabs 05/27/23 lisinopril 5 mg tablet 5 mg PO DAILY #90 tabs 06/16/23 metoprolol tartrate 25 mg tablet 25 mg PO BID #90 tabs 06/16/23 pantoprazole 20 mg tablet,delayed 20 mg PO BID #90 tabs 06/16/23 release torsemide 100 mg tablet 100 mg PO DAILY High blood 06/16/23 pressure #90 tabs ergocalciferol (vitamin D2) 1,250 See Rx Instructions .Route 06/23/23 mcg (50,000 unit) capsule .COMPLEX #10 caps methocarbamol 500 mg tablet 500 mg PO Q8HP PRN spasms #10 tabs 09/10/23 isosorbide mononitrate 60 mg 60 mg PO DAILY #90 tabs 12/03/23 tablet,extended release 24 hr hydroxyzine pamoate 25 mg capsule 25 mg PO TID PRN for increased 12/15/23 (Vistaril) anxiety #90 caps tiotropium bromide 18 mcg capsule 1 cap inhalation DAILY 90 days 01/18/24 with inhalation device (Spiriva #180 puffs with HandiHaler) spironolactone 50 mg tablet See Rx Instructions .Route 02/22/24 .COMPLEX #90 tabs clopidogrel 75 mg tablet See Rx Instructions .Route 03/01/24 .COMPLEX #90 tabs metoclopramide HCl 10 mg tablet 10 mg PO Q6H PRN nausea and 04/06/24 (Reglan) vomiting #14 tabs Allergies Allergy/AdvReac Type Severity Reaction Status Date / Time naproxen [NAPROXEN] Allergy Mild NA-NAUSEA/V Verified 04/06/24 10:46 OMITING tramadol [TRAMADOL] Allergy Mild NA-NAUSEA Verified 04/06/24 10:46 [facility] PFS Disclaimer: The information contained in this section may have been updated after the patient was seen, as this information can be updated by other users. 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 Elevated serum creatinine History of lung cancer in adulthood Stopped smoking with greater than 30 pack year history COPD mixed type Mediastinal lymphadenopathy Hilar lymphadenopathy Dyspnea Typical angina Abnormal result of cardiovascular function study Diabetes Mediastinal lymphadenopathy Pulmonary emphysema COPD (chronic obstructive pulmonary disease) Obstructive sleep apnea (adult) (pediatric) H/O malignant neoplasm of lung Other emphysema Stopped smoking with greater than 30 pack year history Dyspnea on exertion YAMILE (obstructive sleep apnea) Dizziness Lightheaded Hypotension Edema Claudication 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 History of colonoscopy H/O arthroscopy of knee H/O arthroscopy of shoulder Family History Other No significant family history Social History Smoking Status: Former smoker tobacco type: cigarettes packs per day: 1 how long ago did patient quit smokin years; in 2017 second hand exposure: No alcohol intake: never counseling given: No counseling provided: provider counseling substance use type: marijuana counseling given: No current occupational status: disabled Travel in the last 8 weeks: None adopted: No caregiver/support person: No foster care: No household members: children housing: apartment lives independently: Yes marital status: single number of children: 4 number of grandchildren: 9 service: Yes (he was honorably discharged; cause of his back; he was in there for 2 years) 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 exposures/hazards: No Hx Recent Travel: No sexually active: No caffeine: Yes physical activity: none working smoke detector in home: Yes fire extinguisher in home: No carbon monox detector in home: Yes firearms in home: No do you feel safe at home: Yes victim of physical abuse: No victim of emotional abuse: No victim of sexual abuse: No would you like helpful sources: No Other Medical History Have you received the Flu Vaccine for this season: No Have you received the Pneumonia Vaccine: No ROS Obtained: Yes All systems reviewed & no additional complaints except as documented Physical Exam General General appearance: alert Head Head exam: atraumatic and normocephalic Eye Eye exam: Present normal appearance, PERRL and EOMI Neck Neck exam: Present normal inspection, full ROM and trachea midline Respiratory Respiratory exam: Absent respiratory distress, wheezes, stridor, accessory muscle use or prolonged expiratory phase Cardiovascular Cardiovascular exam: Present other (Pulses equal symmetric in upper and lower extremities) Abdominal Exam Abdominal exam: Present soft; Absent distention, tenderness or pulsatile mass Extremities Exam Extremities exam: Present edema and other (Per MD) Neurological Exam Neurological exam: Present alert, oriented X3 and CN II-XII intact; Absent motor sensory deficit Skin Skin exam: Present warm and dry; Absent diaphoresis or erythema Medical Decision Making Medical Records Medical records reviewed: Yes I reviewed the patient's medical records. Screening: Per USPSTF and CDC recommendations, given the prevalence of disease in our region, it is our hospital?s policy to screen for HIV and viral Hepatitis for all patients aged 18 and over and those with ongoing risk factors. [place] Inquiry Pt receiving controlled substance: No [place] was queried for this patient: No Vital Signs: 04/14/24 17:01 04/14/24 17:04 Temperature 97.8 F Temperature Source Oral Pulse Rate 74 Pulse Rate [Right] 79 Respiratory Rate 20 Blood Pressure 147/73 H Blood Pressure [Right Arm] 147/73 H Blood Pressure Mean [Right Arm] 97 Blood Pressure Source [Right Arm] Automatic Cuff 02 Sat by Pulse Oximetry 96 96 Oxygen Delivery Method Room Air Orders (Tests/Meds): ED MEDICATIONS Discontinued Medications Generic Name Dose Route Start Last Admin Trade Name Freq PRN Reason Stop Dose Admin Lidocaine 1 each 04/14/24 17:32 04/14/24 18:50 Lidocaine 5% Transdermal Patch TP 04/14/24 17:33 1 each ONCE ONE Administration ORDERS Category Date Time Status Knee XR right 3 views [XR knee RT 3V] Stat Exams 04/14/24 17:32 Completed POCUS Point of Care (ER Only) Stat Exams 04/14/24 17:46 Completed Medical Decision Narrative: This is a 63-year-old male presenting with bilateral knee pain, right greater than left. States has been going on for the last 2 days. He works on his feet at work. Has not noticed anything that makes it better, but has taken Tylenol, Motrin, ice and heat. Able to ambulate, but it just hurts. No trauma to the area, but states that both knees appear swollen, right greater than left. No DVT or PE risk factors. No fevers, chills, or any other acute changes. States that the pain is absent at rest, present when walking. History obtained with patient. On arrival, patient very well-appearing. Placed on air sampling and monitoring and continuous pulse oximetry with blood pressure 147/73, pulse 79, O2 sat 96% on room air. Bilateral legs have 1+ nonpitting edema, right greater than left. Tenderness about right knee especially knee joint, no outward signs of abnormality. Structurally intact and neurovascularly intact. Patient was given lidocaine patch over point of maximal tenderness, x-rays were obtained and on independent interpretation, there was no acute bony abnormality. Bedside [id number] ultrasound was performed out of abundance of caution, this demonstrated no acute vascular abnormality including clot or otherwise. 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 Abundance of reassurance was given. I feel patient is appropriate for outpatient management. Because patient at baseline without signs or symptoms of clinical decompensation, deemed appropriate for discharge. Results were relayed to patient[] who voiced understanding and were agreeable to outpatient management and follow up. I discussed my clinical impression with patient[] and answered all questions. At this time, the evidence for any other entities in the differential is insufficient to warrant any further testing or ED observation. This was explained as well. Advisory was given that persistent or worsening symptoms require further evaluation. I confirmed the understanding of this discussion. Return precautions given and recommendations for compressi on socks also given. 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 Electronic gas processing plant operator of the spoken language may permit e rrors. Although I have reviewed the note, some errors may still exist. Procedures Limited Ultrasound Indication:: Limited DVT ultrasound Indication: Limited compression ultrasonography of the right lower extremity was performed to evaluate for non-compressibility of the deep veins in the patient. The ultrasound was performed with the following indications, as noted in the H&P: Lower extremity swelling worse than left Identified structures: RIGHT or LEFT or BILATERAL common femoral vein, femoral vein, popliteal vein were examined. Findings: Lower Extremity: Right CFV: Good compressibility or Non-compressible or Not performed Right FV: Good compressibility or Non-compressible or Not performed Right Popliteal vein: Good compressibility or Non-compressible or Not performed Impression: Normal right lower extremity DVT ultrasound with no evidence of DVT Images were saved to permanent archive The study was technically adequate CPT: 34553-46-YH [id number] 64899-45 (complete bilateral study) This study was performed by me, and I personally interpreted all images/videos. Based on my clinical judgement, these images were adequate and did not necessitate further imaging Critical Care Critical Care Time Critical Care Time: No
[2024-04-14 19:35] VITALS: BP 163/87; PULSE 66; RESP 18; TEMP 36.9; O2SAT 97
== END 2024-04-14 19:38 | disposition home or self-care (01) ==
PROVIDERS: Emergency Provider Emergency Medicine; PCP Family Medicine
DX: M25.561 Pain in right knee (principal); M25.562 Pain in left knee
CPT/HCPCS: 73562; 99284

== ENCOUNTER 2024-04-15 12:56 | Outpatient (CLI) | payer BC, SELFPAY ==
[2024-04-15 13:02] LABS: Microscopic, Urine URINE MICROSCOPIC (MICROSCOPIC)
[2024-04-15 13:22] LABS: Appearance,Urine CLEAR (Clear); Bilirubin,Urine Negative (Negative); Blood, Urine Negative (Negative); Color,Urine YELLOW (Yellow); Glucose,Urine (UA) 3+ (Negative); Ketones,Urine Negative (Negative); Leukocyte Esterase,Urine Negative (Negative); Nitrate,Urine Negative (Negative); Protein,Urine Negative (Negative); Urobilinogen,Urine 0.2 EU/dl (0.2)
[2024-04-15 13:41] LABS: Squamous Epithelial Cell,Urine Occasional #/hpf (0-5)
[2024-04-15 14:02] LABS: Chloride 107 mmol/L (98-107); Sodium 136 mmol/L (136-145)
[2024-04-15 14:03] LABS: Potassium 4.7 mmoL/L (3.5-5.1)
[2024-04-15 14:06] LABS: Anion Gap 16.7 mEq/L (5-15); Blood Urea Nitrogen 21 mg/dl (9-20); Carbon Dioxide 17 mmol/L (22.0-30.0); Estimated Glomerular Filt Rate 68 ml/min (>60); GFR (African American) 82 ML/MIN (>60); Glucose 227 mg/dl (74-100)
== END 2024-04-15 23:59 | disposition home or self-care (01) ==
LOC: LAB 12:58
PROVIDERS: Internal Medicine; PCP Family Medicine; Visit Provider Nurse Practitioner
DX: N39.0 Urinary tract infection, site not specified (principal); R79.89 Other specified abnormal findings of blood chemistry
CPT/HCPCS: 36415; 80048; 81001

== ENCOUNTER 2024-05-14 05:40 | Inpatient (IN) | payer BC, SELFPAY ==
[2024-05-14] VITALS (27 sets, daily range): BP systolic 102–171; BP diastolic 52–94; PULSE 82–117; RESP 12–24; TEMP 36.1–36.4; O2SAT 93–100; BMI 32.6; BMI 32.4
--- NOTE | 2024-05-14 05:50 | XR_ITS ---
PROCEDURE INFORMATION: Exam: XR Chest Exam date and time: 05/14/2024 5:53 AM Age: 63 years old Clinical indication: Shortness of breath; Additional info: Weakness TECHNIQUE: Imaging protocol: Radiologic exam of the chest. Views: 1 view. COMPARISON: CR XR CHEST PORTABLE 04/06/2024 11:45 AM FINDINGS: Lungs: Unremarkable. No consolidation. Pleural spaces: Unremarkable. No pleural effusion. No pneumothorax. Heart/Mediastinum: Unremarkable. No cardiomegaly. Bones/joints: Unremarkable. IMPRESSION: No acute findings.
--- NOTE | 2024-05-14 05:51 | ECG_ITS ---
APPROVED REPORT Exam: Resting ECG HR:113 bpm ECG Measurements Heart Rate 113 AXES MA 129 P 72 QRSd 92 QRS 63 QT 339 T 81 QTc 406 Conclusion SINUS TACHYCARDIA ABNORMAL RHYTHM ECG UNCONFIRMED REPORT Electronically signed by : DANIELLE DEL ROSARIO, 05/15/2024 04:31:01
[2024-05-14] MEDS: LACTATED RINGERS 1000ML 1,000 ML 999 ML IV ×2 (05:56→06:32)
--- NOTE | 2024-05-14 06:19 | [facility].EDGENADL ---
Discharge Plan Disposition Patient Disposition: Admitted Clinical Impressions Clinical Impression: Acute hyperglycemia, DKA (diabetic ketoacidosis) Discharge ED Provider: Stanley Siddiqui Adult HPI <Oli Neal MD - Last Filed: 05/14/24 06:59> General Chief complaint: Weakness Stated complaint: dehydrated, weakness, cough Time Seen by Provider: 05/14/24 05:45 Mode of Arrival: Wheelchair Source of Information: Patient Limitations: No Limitations Description of Symptoms (Recalled from ER Triage Doc. by RN): Pt here with c/o generalized weakness x1-2 days per patient. Denies pain, reports nausea w/out vomitting. Pt A&Ox4, resps even and nonlabored History of Present Illness HPI narrative: 63-year-old male with history of diabetes, hypertension, history of lung cancer in remission, COPD presents for generalized weakness for the last week or so. Patient is a poor historian and has difficulty relating his medical history. He denies fever at home. He reports some headache and dizziness. Fingerstick blood glucose reads too high. Patient reports that he has not taken his insulin in several days. Related Data Home Medications ?Medication ?Instructions ?Recorded ?Confirmed blood sugar diagnostic (OneTouch #10 ea 11/28/21 04/18/24 Ultra Test strips) sitagliptin phosphate 100 mg 0 mg PO DAILY 11/28/21 04/18/24 tablet (Januvia) oxycodone 10 mg tablet 10 mg PO TID 03/31/23 04/18/24 rosuvastatin 40 mg tablet 40 mg PO DAILY 03/31/23 04/18/24 gabapentin 800 mg tablet 800 mg PO TID 06/16/23 04/18/24 amitriptyline 50 mg tablet 50 mg PO DAILY 12/07/23 04/18/24 blood-glucose meter (FreeStyle #1 ea 12/07/23 04/18/24 Lite Meter kit) famotidine 20 mg tablet 20 mg PO HS 12/07/23 04/18/24 insulin glargine 100 unit/mL (3 22 unit SQ 12/07/23 04/18/24 mL) subcutaneous pen (Lantus Solostar U-100 Insulin) lancets 28 gauge (FreeStyle #100 ea 12/07/23 04/18/24 Lancets) pen needle, diabetic 31 gauge x #1,200 ea 12/07/23 04/18/24 3/16 (BD Ultra-Fine Mini Pen Needle) tirzepatide 2.5 mg/0.5 mL 2.5 mg SQ QWEEK 04/06/24 04/18/24 subcutaneous pen injector (Arabella) Previous Rx's ?Medication ?Instructions ?Recorded albuterol sulfate 90 mcg/actuation 2 inh inhalation QID PRN shortness 08/14/22 aerosol inhaler of breath or wheezing 90 days #8.5 grams empagliflozin 25 mg tablet 25 mg PO DAILY Diabetes #90 tabs 05/27/23 lisinopril 5 mg tablet 5 mg PO DAILY #90 tabs 06/16/23 metoprolol tartrate 25 mg tablet 25 mg PO BID #90 tabs 06/16/23 pantoprazole 20 mg tablet,delayed 20 mg PO BID #90 tabs 06/16/23 release torsemide 100 mg tablet 100 mg PO DAILY High blood 06/16/23 pressure #90 tabs ergocalciferol (vitamin D2) 1,250 See Rx Instructions .Route 06/23/23 mcg (50,000 unit) capsule .COMPLEX #10 caps methocarbamol 500 mg tablet 500 mg PO Q8HP PRN spasms #10 tabs 09/10/23 isosorbide mononitrate 60 mg 60 mg PO DAILY #90 tabs 12/03/23 tablet,extended release 24 hr hydroxyzine pamoate 25 mg capsule 25 mg PO TID PRN for increased 12/15/23 (Vistaril) anxiety #90 caps tiotropium bromide 18 mcg capsule 1 cap inhalation DAILY 90 days 01/18/24 with inhalation device (Spiriva #180 puffs with HandiHaler) spironolactone 50 mg tablet See Rx Instructions .Route 02/22/24 .COMPLEX #90 tabs clopidogrel 75 mg tablet See Rx Instructions .Route 03/01/24 .COMPLEX #90 tabs metoclopramide HCl 10 mg tablet 10 mg PO Q6H PRN nausea and 04/06/24 (Reglan) vomiting #14 tabs acetaminophen 650 mg 650 mg PO Q8H #90 tabs 04/18/24 tablet,extended release (Tylenol Arthritis Pain) diclofenac sodium 1 % topical gel 2 g topical ONCE #1 g 04/18/24 (Voltaren Arthritis Pain) Allergies Allergy/AdvReac Type Severity Reaction Status Date / Time naproxen (NAPROXEN) Allergy Mild NA-NAUSEA/V Verified 04/18/24 09:03 OMITING tramadol (TRAMADOL) Allergy Mild NA-NAUSEA Verified 04/18/24 09:03 [facility] <Oli Neal MD - Last Filed: 05/14/24 06:59> [facility] Disclaimer: The information contained in this section may have been updated after the patient was seen, as this information can be updated by other users. 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 Elevated serum creatinine History of lung cancer in adulthood Stopped smoking with greater than 30 pack year history COPD mixed type Mediastinal lymphadenopathy Hilar lymphadenopathy Dyspnea Typical angina Abnormal result of cardiovascular function study Diabetes Mediastinal lymphadenopathy Pulmonary emphysema COPD (chronic obstructive pulmonary disease) Obstructive sleep apnea (adult) (pediatric) H/O malignant neoplasm of lung Other emphysema Stopped smoking with greater than 30 pack year history Dyspnea on exertion YAMILE (obstructive sleep apnea) Dizziness Lightheaded Hypotension Edema Claudication 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 History of colonoscopy H/O arthroscopy of knee H/O arthroscopy of shoulder Family History Other No significant family history Social History Smoking Status: Never smoker how long ago did patient quit smokin years; in 2017 second hand exposure: No alcohol intake: never counseling given: No counseling provided: provider counseling substance use type: marijuana counseling given: No current occupational status: disabled Travel in the last 8 weeks: None adopted: No caregiver/support person: No foster care: No household members: children housing: apartment lives independently: Yes marital status: single number of children: 4 number of grandchildren: 9 service: Yes (he was honorably discharged; cause of his back; he was in there for 2 years) 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 exposures/hazards: No Hx Recent Travel: No sexually active: No caffeine: Yes physical activity: none working smoke detector in home: Yes fire extinguisher in home: No carbon monox detector in home: Yes firearms in home: No do you feel safe at home: Yes victim of physical abuse: No victim of emotional abuse: No victim of sexual abuse: No would you like helpful sources: No Other Medical History Have you received the Flu Vaccine for this season: No Have you received the Pneumonia Vaccine: No <Oli Neal MD - Last Filed: 05/14/24 06:59> ROS Obtained: Yes All systems reviewed & no additional complaints except as documented Physical Exam <Oli Neal MD - Last Filed: 05/14/24 06:59> General General appearance: alert Head Head exam: atraumatic and normocephalic Eye Eye exam: Present normal appearance, PERRL and EOMI ENT ENT exam: Present normal oropharynx, mucous membranes dry and normal external ear exam Neck Neck exam: Present normal inspection and full ROM Chest Chest inspection: Present normal inspection and symmetric chest wall rise; Absent tenderness Respiratory Respiratory exam: Present normal lung sounds bilaterally; Absent respiratory distress Cardiovascular Cardiovascular exam: Present regular rate and normal rhythm Abdominal Exam Abdominal exam: Present soft; Absent distention, tenderness or guarding Extremities Exam Extremities exam: Present normal inspection; Absent edema or joint swelling Back Exam Back exam: Present normal inspection; Absent tenderness Neurological Exam Neurological exam: Present alert and oriented X3; Absent motor sensory deficit Psychiatric Psychiatric exam: Present normal affect and normal mood Skin Skin exam: Present warm, dry and normal color Lymphatic Lymphatic Findings: no adenopathy Medical Decision Making <Oli Neal MD - Last Filed: 05/14/24 06:59> Medical Records Medical records reviewed: Yes I reviewed the patient's medical records. Screening: Per USPSTF and CDC recommendations, given the prevalence of disease in our region, it is our hospital?s policy to screen for HIV and viral Hepatitis for all patients aged 18 and over and those with ongoing risk factors. [place] Inquiry Pt receiving controlled substance: No [place] was queried for this patient: No Vital Signs: 05/14/24 05:41 05/14/24 05:46 05/14/24 06:36 Temperature 97.0 F L Temperature Source Oral Pulse Rate 117 H 98 H Pulse Rate [Apical] 114 H Respiratory Rate 16 22 Blood Pressure 131/88 117/73 Blood Pressure [Right Arm] 131/88 Blood Pressure Mean Blood Pressure Mean [Right Arm] 102 02 Sat by Pulse Oximetry 100 99 97 Oxygen Delivery Method Room Air Room Air 12/07/24 07:00 05/14/24 07:30 05/14/24 08:01 Temperature Temperature Source Pulse Rate 84 82 100 H Pulse Rate [Apical] Respiratory Rate 14 15 16 Blood Pressure 131/69 122/65 117/90 Blood Pressure [Right Arm] Blood Pressure Mean 95 Blood Pressure Mean [Right Arm] 02 Sat by Pulse Oximetry 98 98 98 Oxygen Delivery Method Room Air Room Air Lab Data Lab results reviewed: Yes I reviewed the patient's lab results. Lab Results 05/14/24 05:55: VBG pH 7.25 L, VBG pCO2 29.4 L, VBG pO2 71.9 H, VBG HCO3 12.7 L, VBG Total CO2 13.6 L, VBG O2 Saturation 92.2 H, VBG Base Excess -14.4 L, VBG Lactic Acid 5.0 H 05/14/24 06:20: WBC 14.6 H, RBC 5.23, Hgb 16.5, Hct 52.3 H, MCV 100.0 H, MCH 31.6 H, MCHC 31.6 L, RDW 13.4, Plt Count 305, MPV 8.5, Neut % (Auto) 90.2 H, Lymph % (Auto) 5.0 L, [place] % (Auto) 4.6, Eos % (Auto) 0.1, Baso % (Auto) 0.1, Neut # (Auto) 13.1 H, Lymph # (Auto) 0.7, [place] # (Auto) 0.7, Eos # (Auto) 0.0, Baso # (Auto) 0.0, Total Counted 100, Neutrophils % (Manual) 94 H, Lymphocytes % (Manual) 5 L, Monocytes % (Manual) 1 L, Platelet Estimate Normal, Macrocytosis 1+, D-Dimer 0.84 H, Sodium 127 L, Potassium 5.4 H, Chloride 91 L, Carbon Dioxide 8 L*, Anion Gap 33.4 H, BUN 67 H, Creatinine 2.10 H, Estimated Creat Clear 51, Estimated GFR 32 L, Est GFR ( Amer) 39 L, Glucose 755 H*, Calcium 9.8, Magnesium 3.5 H, Total Bilirubin 1.3, AST 36, ALT 72, Alkaline Phosphatase 164 H, Total Creatine Kinase 87, Troponin I 0.04 H, Total Protein 7.5, Albumin 4.9, Globulin 2.6, Albumin/Globulin Ratio 1.9 H, Lipase 87, TSH 0.57, Thyroxine (T4) 12.9 H 05/14/24 07:20: Urine Color Yellow, Urine Appearance Clear, Urine pH 5.5, Ur Specific Bruin 1.010, Urine Protein Negative, Urine Glucose (UA) 3+, Urine Ketones 2+, Urine Blood Negative, Urine Nitrate Negative, Urine Bilirubin Negative, Urine Urobilinogen 0.2, Ur Leukocyte Esterase Negative, Urine RBC None, Urine WBC Occasional, Ur Squamous Epith Cells Occasional, Urine Bacteria None 05/14/24 08:30: VBG pH 7.23 L, VBG pCO2 34.6 L, VBG pO2 47.3 H, VBG HCO3 14.2 L, VBG Total CO2 15.3 L, VBG O2 Saturation 76.0 H, VBG Base Excess -13.3 L, VBG Lactic Acid 3.5 H 05/14/24 06:20 05/14/24 06:20 Orders (Tests/Meds): ED MEDICATIONS Generic Name Dose Route Start Last Admin Trade Name Freq PRN Reason Stop Dose Admin Dextrose 50 ml 05/14/24 08:44 Dextrose 50% 50ml Syringe (Crash Cart) IVP 06/13/24 08:43 NEEDED PRN Per Dka Protocol for FSBS </= 50 Insulin Human Regular 100 unit 101 mls @ 9.09 mls/hr 05/14/24 08:30 / Sodium Chloride IV 06/13/24 08:29 .Q11H7M [facility] Protocol 9 UNIT/HR Dextrose/Sodium Chloride 1,000 mls @ 150 mls/hr 05/14/24 08:45 Dextrose 5%-0.45% Nacl Iv Soln IV 06/13/24 08:44 .Q6H40M [facility] Potassium Chloride/Sodium Chloride 1,000 mls @ 150 mls/hr 05/14/24 09:15 Kcl 20 Meq In Ns 1,000 Ml Iv Soln IV 05/14/24 15:54 .Q6H40M ONE Discontinued Medications Generic Name Dose Route Start Last Admin Trade Name Freq PRN Reason Stop Dose Admin Lactated Ringer's 1,000 mls @ 999 mls/hr 05/14/24 06:00 05/14/24 05:56 Lactated Ringer's 1000 Ml Bag IV 05/14/24 07:00 999 mls/hr .Q1H1M YADY Administration Lactated Ringer's 1,000 mls @ 999 mls/hr 05/14/24 06:15 05/14/24 06:32 Lactated Ringer's 1000 Ml Bag IV 05/14/24 07:15 999 mls/hr .Q1H1M YADY Administration Insulin Human Regular 10 unit 05/14/24 08:42 Insulin Human Regular 100 Units/Ml 10ml Vial 0.1 unit/kg (10 unit) 05/14/24 08:43 IV ONCE ONE ORDERS Category Date Time Status CT head/brain wo con Stat Cat Scan 05/14/24 07:15 Ordered Nutrition Consult [CONS] Routine Cons 05/14/24 08:44 Active CXR --portable [XR chest portable] Stat Exams 05/14/24 05:50 Completed Acetone, Serum (Rapid) Stat Lab 05/14/24 Completed Basic Metabolic Panel Q4H Lab 05/14/24 08:45 Ordered Basic Metabolic Panel Q4H Lab 05/14/24 12:45 Ordered Basic Metabolic Panel Q4H Lab 05/14/24 16:45 Ordered Basic Metabolic Panel Q4H Lab 05/14/24 20:45 Ordered Basic Metabolic Panel Q4H Lab 05/15/24 00:45 Ordered Basic Metabolic Panel Q4H Lab 05/15/24 04:45 Ordered CBC w/Auto Diff [Complete Blood Count Auto Diff] Stat Lab 05/14/24 06:20 Completed CK [Creatine Kinase] Stat Lab 05/14/24 06:20 Completed CMP [Comprehensive Metabolic Panel] Stat Lab 05/14/24 06:20 Completed D-Dimer Stat Lab 05/14/24 06:20 Completed Hemoglobin A1C Stat Lab 05/14/24 Received Lactate Venous Stat Lab 05/14/24 07:03 Ordered Lipase Stat Lab 05/14/24 06:20 Completed Magnesium Q4H Lab 05/14/24 08:45 Ordered Magnesium Q4H Lab 05/14/24 12:45 Ordered Magnesium Q4H Lab 05/14/24 16:45 Ordered Magnesium Q4H Lab 05/14/24 20:45 Ordered Magnesium Q4H Lab 05/15/24 00:45 Ordered Magnesium Q4H Lab 05/15/24 04:45 Ordered Magnesium Stat Lab 05/14/24 06:20 Completed Phosphorous Q4H Lab 05/14/24 08:45 Ordered Phosphorous Q4H Lab 05/14/24 12:45 Ordered Phosphorous Q4H Lab 05/14/24 16:45 Ordered Phosphorous Q4H Lab 05/14/24 20:45 Ordered Phosphorous Q4H Lab 05/15/24 00:45 Ordered Phosphorous Q4H Lab 05/15/24 04:45 Ordered T4 (Thyroxine) Stat Lab 05/14/24 06:20 Completed TSH [Thyroid Stimulating Hormone] Stat Lab 05/14/24 06:20 Completed Troponin I Q3H Lab 05/14/24 06:20 Completed Troponin I Q3H Lab 05/14/24 09:00 Ordered UA [Urinalysis and Microscopic] Stat Lab 05/14/24 07:20 Completed Blood Culture Stat Micro 05/14/24 07:03 Ordered VBG [Venous Blood Gas] Stat RT 05/14/24 05:55 Completed Venous Blood Gas Stat RT 05/14/24 08:30 Completed ECG Data Tracing #1: I reviewed this ECG and interpreted as documented below: Sinus tachycardia with rate of 113, no significant ST changes, ECG initial impression date: 05/14/24 ECG initial impression time: 05:51 HEART Score History (anamnesis): Slightly suspicious ECG: Normal Age: 45-65 years Risk factors: 3 or more risk factors Troponin: </= normal limit HEART Score: 3 Medical Decision Narrative: 63-year-old male with history of diabetes hypertension lung cancer in remission COPD presents for generalized weakness.. History was obtained via interactive discussion with patient family chart review. On arrival, patient is afebrile, hemodynamically stable, drowsy but arousable, moving all extremities spontaneously. Full physical exam performed and significant for dry mucous membranes. Fingerstick glucose at bedside reads too high . Differential includes but is not limited to DKA, HHS, UTI, electrolyte derangement, dehydration. Patient was given 2 L IV fluid bolus for symptomatic management and correction of underlying abnormalities. Workup initiated including CBC CMP VBG mag TSH T4 urine urine culture blood culture EKG troponin. On re-evaluation, patient [remains afebrile, HD stable.] Laboratory workup independently interpreted by me and significant for VBG shows lactate of 5, pH 7.25, pCO2 and bicarb low. <Stanley Siddiqui MD - Last Filed: 05/14/24 09:05> Vital Signs: 05/14/24 05:41 05/14/24 05:46 05/14/24 06:36 Temperature 97.0 F L Temperature Source Oral Pulse Rate 117 H 98 H Pulse Rate [Apical] 114 H Respiratory Rate 16 22 Blood Pressure 131/88 117/73 Blood Pressure [Right Arm] 131/88 Blood Pressure Mean Blood Pressure Mean [Right Arm] 102 02 Sat by Pulse Oximetry 100 99 97 Oxygen Delivery Method Room Air Room Air 05/14/24 07:00 05/14/24 07:30 05/14/24 08:01 Temperature Temperature Source Pulse Rate 84 82 100 H Pulse Rate [Apical] Respiratory Rate 14 15 16 Blood Pressure 131/69 122/65 117/90 Blood Pressure [Right Arm] Blood Pressure Mean 95 Blood Pressure Mean [Right Arm] 02 Sat by Pulse Oximetry 98 98 98 Oxygen Delivery Method Room Air Room Air Lab Data Lab Results 05/14/24 05:55: VBG pH 7.25 L, VBG pCO2 29.4 L, VBG pO2 71.9 H, VBG HCO3 12.7 L, VBG Total CO2 13.6 L, VBG O2 Saturation 92.2 H, VBG Base Excess -14.4 L, VBG Lactic Acid 5.0 H 05/14/24 06:20: WBC 14.6 H, RBC 5.23, Hgb 16.5, Hct 52.3 H, MCV 100.0 H, MCH 31.6 H, MCHC 31.6 L, RDW 13.4, Plt Count 305, MPV 8.5, Neut % (Auto) 90.2 H, Lymph % (Auto) 5.0 L, [place] % (Auto) 4.6, Eos % (Auto) 0.1, Baso % (Auto) 0.1, Neut # (Auto) 13.1 H, Lymph # (Auto) 0.7, [place] # (Auto) 0.7, Eos # (Auto) 0.0, Baso # (Auto) 0.0, Total Counted 100, Neutrophils % (Manual) 94 H, Lymphocytes % (Manual) 5 L, Monocytes % (Manual) 1 L, Platelet Estimate Normal, Macrocytosis 1+, D-Dimer 0.84 H, Sodium 127 L, Potassium 5.4 H, Chloride 91 L, Carbon Dioxide 8 L*, Anion Gap 33.4 H, BUN 67 H, Creatinine 2.10 H, Estimated Creat Clear 51, Estimated GFR 32 L, Est GFR ( Amer) 39 L, Glucose 755 H*, Calcium 9.8, Magnesium 3.5 H, Total Bilirubin 1.3, AST 36, ALT 72, Alkaline Phosphatase 164 H, Total Creatine Kinase 87, Troponin I 0.04 H, Total Protein 7.5, Albumin 4.9, Globulin 2.6, Albumin/Globulin Ratio 1.9 H, Lipase 87, TSH 0.57, Thyroxine (T4) 12.9 H 05/14/24 07:20: Urine Color Yellow, Urine Appearance Clear, Urine pH 5.5, Ur Specific Bruin 1.010, Urine Protein Negative, Urine Glucose (UA) 3+, Urine Ketones 2+, Urine Blood Negative, Urine Nitrate Negative, Urine Bilirubin Negative, Urine Urobilinogen 0.2, Ur Leukocyte Esterase Negative, Urine RBC None, Urine WBC Occasional, Ur Squamous Epith Cells Occasional, Urine Bacteria None 05/14/24 08:30: VBG pH 7.23 L, VBG pCO2 34.6 L, VBG pO2 47.3 H, VBG HCO3 14.2 L, VBG Total CO2 15.3 L, VBG O2 Saturation 76.0 H, VBG Base Excess -13.3 L, VBG Lactic Acid 3.5 H Orders (Tests/Meds): ED MEDICATIONS Generic Name Dose Route Start Last Admin Trade Name Miltonq PRN Reason Stop Dose Admin Dextrose 50 ml 05/14/24 08:44 Dextrose 50% 50ml Syringe (Crash Cart) IVP 06/13/24 08:43 NEEDED PRN Per Dka Protocol for FSBS </= 50 Insulin Human Regular 100 unit 101 mls @ 9.09 mls/hr 05/14/24 08:30 / Sodium Chloride IV 06/13/24 08:29 .Q11H7M [facility] Protocol 9 UNIT/HR Dextrose/Sodium Chloride 1,000 mls @ 150 mls/hr 05/14/24 08:45 Dextrose 5%-0.45% Nacl Iv Soln IV 06/13/24 08:44 .Q6H40M [facility] Potassium Chloride/Sodium Chloride 1,000 mls @ 150 mls/hr 05/14/24 09:15 Kcl 20 Meq In Ns 1,000 Ml Iv Soln IV 05/14/24 15:54 .Q6H40M ONE Discontinued Medications Generic Name Dose Route Start Last Admin Trade Name Miltonq PRN Reason Stop Dose Admin Lactated Ringer's 1,000 mls @ 999 mls/hr 05/14/24 06:00 05/14/24 05:56 Lactated Ringer's 1000 Ml Bag IV 05/14/24 07:00 999 mls/hr .Q1H1M YADY Administration Lactated Ringer's 1,000 mls @ 999 mls/hr 05/14/24 06:15 05/14/24 06:32 Lactated Ringer's 1000 Ml Bag IV 05/14/24 07:15 999 mls/hr .Q1H1M YADY Administration Insulin Human Regular 10 unit 05/14/24 08:42 Insulin Human Regular 100 Units/Ml 10ml Vial 0.1 unit/kg (10 unit) 05/14/24 08:43 IV ONCE ONE ORDERS Category Date Time Status CT head/brain wo con Stat Cat Scan 05/14/24 07:15 Ordered Nutrition Consult [CONS] Routine Cons 05/14/24 08:44 Active CXR --portable [XR chest portable] Stat Exams 05/14/24 05:50 Completed Acetone, Serum (Rapid) Stat Lab 05/14/24 Completed Basic Metabolic Panel Q4H Lab 05/14/24 08:45 Ordered Basic Metabolic Panel Q4H Lab 05/14/24 12:45 Ordered Basic Metabolic Panel Q4H Lab 05/14/24 16:45 Ordered Basic Metabolic Panel Q4H Lab 05/14/24 20:45 Ordered Basic Metabolic Panel Q4H Lab 05/15/24 00:45 Ordered Basic Metabolic Panel Q4H Lab 05/15/24 04:45 Ordered CBC w/Auto Diff [Complete Blood Count Auto Diff] Stat Lab 05/14/24 06:20 Completed CK [Creatine Kinase] Stat Lab 05/14/24 06:20 Completed CMP [Comprehensive Metabolic Panel] Stat Lab 05/14/24 06:20 Completed D-Dimer Stat Lab 05/14/24 06:20 Completed Hemoglobin A1C Stat Lab 05/14/24 Received Lactate Venous Stat Lab 05/14/24 07:03 Ordered Lipase Stat Lab 05/14/24 06:20 Completed Magnesium Q4H Lab 05/14/24 08:45 Ordered Magnesium Q4H Lab 05/14/24 12:45 Ordered Magnesium Q4H Lab 05/14/24 16:45 Ordered Magnesium Q4H Lab 05/14/24 20:45 Ordered Magnesium Q4H Lab 05/15/24 00:45 Ordered Magnesium Q4H Lab 05/15/24 04:45 Ordered Magnesium Stat Lab 05/14/24 06:20 Completed Phosphorous Q4H Lab 05/14/24 08:45 Ordered Phosphorous Q4H Lab 05/14/24 12:45 Ordered Phosphorous Q4H Lab 05/14/24 16:45 Ordered Phosphorous Q4H Lab 05/14/24 20:45 Ordered Phosphorous Q4H Lab 05/15/24 00:45 Ordered Phosphorous Q4H Lab 05/15/24 04:45 Ordered T4 (Thyroxine) Stat Lab 05/14/24 06:20 Completed TSH [Thyroid Stimulating Hormone] Stat Lab 05/14/24 06:20 Completed Troponin I Q3H Lab 05/14/24 06:20 Completed Troponin I Q3H Lab 05/14/24 09:00 Ordered UA [Urinalysis and Microscopic] Stat Lab 05/14/24 07:20 Completed Blood Culture Stat Micro 05/14/24 07:03 Ordered VBG [Venous Blood Gas] Stat RT 05/14/24 05:55 Completed Venous Blood Gas Stat RT 05/14/24 08:30 Completed HEART Score HEART Score: 3 Medical Decision Narrative: 63-year-old male with history of diabetes hypertension lung cancer in remission COPD presents for generalized weakness.. History was obtained via interactive discussion with patient family chart review. On arrival, patient is afebrile, hemodynamically stable, drowsy but arousable, moving all extremities spontaneously. Full physical exam performed and significant for dry mucous membranes. Fingerstick glucose at bedside reads too high . Differential includes but is not limited to DKA, HHS, UTI, electrolyte derangement, dehydration. Patient was given 2 L IV fluid bolus for symptomatic management and correction of underlying abnormalities. Workup initiated including CBC CMP VBG mag TSH T4 urine urine culture blood culture EKG troponin. On re-evaluation, patient [remains afebrile, HD stable.] Laboratory workup independently interpreted by me and significant for VBG shows lactate of 5, pH 7.25, pCO2 and bicarb low. I assumed care of this patient at 7 AM, additional laboratory workup independently interpreted by me and significant for leukocytosis of 14, hypermagnesemia, mildly elevated troponin, will get repeat. Additionally patient has elevated D-dimer, but I used years criteria to rule out acute pulmonary embolism and deferred CT PE at this time. Patient additionally had a glucose of 755, bicarb of 8, anion gap of 33 and a potassium of 5.4. Patient was started on insulin drip. I had an interactive discussion with the hospital medicine team patient was also admitted to their service for further management. Procedures <Oli Neal MD - Last Filed: 05/14/24 06:59> Risk/Benefits of Procedure(s) Were Explained: Yes Critical Care <Oli Neal MD - Last Filed: 05/14/24 06:59> Critical Care Time Critical Care Time: Yes Attestation: On 05/14/24, the high probability of a clinically significant, sudden or life threatening deterioration of the following system(s) required my full and direct attention, intervention and personal management. The time I documented below is in addition to time spent performing reported procedures but includes the following listed in this critical care notation. Total Time Total Critical Care Time: 40
[2024-05-14 06:40] LABS: Creatine Kinase 87 U/L (55-170); Lipase 87 U/L (23-300); Magnesium 3.5 mg/dl (1.6-2.3)
[2024-05-14 06:45] LABS: D-Dimer 0.84 ug/mL (0.0-0.5)
[2024-05-14 06:46] LABS: VBG Base Excess -14.4 mmol/L (-2.4-2.3); VBG HCO3 12.7 mmol/L (23-30); VBG Oxygen Saturation 92.2 % (50-70); VBG PCO2 29.4 mmol/L (35-51); VBG PH 7.25 mmol/L (7.31-7.41); VBG PO2 71.9 mmol/L (28-40); VBG Total CO2 13.6 mmol/L (23-27)
[2024-05-14 06:52] LABS: Basophils % 0.1 % (0.1-2.0); Eosinophils % 0.1 % (0.1-12.0); Hematocrit 52.3 % (42.0-52.0); Hemoglobin 16.5 g/dL (14.1-18.0); Lymphocytes # 0.7 K/mm3 (0.7-4.5); Mean Corpuscular HGB Conc 31.6 g/dL (31.8-35.4); Mean Corpuscular Hemoglobin 31.6 pg (27.0-31.2); Mean Platelet Volume 8.5 fl (7.4-10.4); Monocytes # 0.7 K/mm3 (0.1-1.0); Monocytes % 4.6 % (1.7-9.3); Neutrophils # 13.1 K/mm3 (1.8-7.8); Neutrophils % 90.2 % (37.0-80.0); Platelet Count 305 K/mm3 (142-424); Red Blood Count 5.23 M/mm3 (4.60-6.20); Red Cell Distribution Width 13.4 % (11.5-17.5); White Blood Count 14.6 K/mm3 (4.8-10.8)
[2024-05-14 06:54] LABS: Troponin I 0.04 ng/ml (0.00-0.034)
[2024-05-14 06:59] LABS: T4 (Thyroxine) 12.9 ug/dl (5.53-11.0)
[2024-05-14 07:06] LABS: MANUAL DIFFERENTIAL MANUAL DIFFERENTIAL (MANUAL DIFF)
[2024-05-14 07:12] LABS: Thyroid Stimulating Hormone 0.57 uIU/mL (0.465-4.68)
--- NOTE | 2024-05-14 07:15 | CT_ITS ---
PROCEDURE INFORMATION: Exam: CT Head Without Contrast Exam date and time: 05/14/2024 9:15 AM Age: 63 years old Clinical indication: Other: General weakness; Additional info: Generalized weakness, AMS TECHNIQUE: Imaging protocol: Computed tomography of the head without contrast. Radiation optimization: All CT scans at this facility use at least one of these dose optimization techniques: automated exposure control; mA and/or kV adjustment per patient size (includes targeted exams where dose is matched to clinical indication); or iterative reconstruction. COMPARISON: No relevant prior studies available. FINDINGS: Brain: Bella-white matter differentiation and sulcation pattern is normal. There is normal density in the basal ganglia and thalamus. There is no intracranial hemorrhage. There are no pathologic extra-axial fluid collections. Cerebral ventricles: No ventriculomegaly. Paranasal sinuses: Visualized sinuses are unremarkable. No fluid levels. Mastoid air cells: Visualized mastoid air cells are well aerated. Bones: Unremarkable. No acute fracture. Soft tissues: Unremarkable. IMPRESSION: No acute intracranial pathology.
[2024-05-14 07:26] LABS: Microscopic, Urine URINE MICROSCOPIC (MICROSCOPIC)
[2024-05-14 07:40] LABS: Appearance,Urine CLEAR (Clear); Bilirubin,Urine Negative (Negative); Blood, Urine Negative (Negative); Color,Urine YELLOW (Yellow); Glucose,Urine (UA) 3+ (Negative); Ketones,Urine 2+ (Negative); Leukocyte Esterase,Urine Negative (Negative); Nitrate,Urine Negative (Negative); PH,Urine 5.5 (5.0-8.5); Protein,Urine Negative (Negative); Urobilinogen,Urine 0.2 EU/dl (0.2)
[2024-05-14 07:56] LABS: Squamous Epithelial Cell,Urine Occasional #/hpf (0-5); WBC,Urine Occasional #/hpf (0-3)
[2024-05-14 08:02] LABS: Alanine Aminotransferase 72 U/L (12-78); Albumin Level 4.9 g/dl (3.5-5.0); Albumin/Globulin Ratio 1.9 (1.1-1.8); Alkaline Phosphatase 164 U/L (38-126); Anion Gap 33.4 mEq/L (5-15); Aspartate Amino Transferase 36 U/L (17-59); Bilirubin,Total 1.3 mg/dl (0.2-1.3); Blood Urea Nitrogen 67 mg/dl (9-20); Calcium 9.8 mg/dl (8.4-10.2); Chloride 91 mmol/L (98-107); Creatinine Clearance Estimated 51 mL/min (50-200); Estimated Glomerular Filt Rate 32 ml/min (>60); GFR (African American) 39 ML/MIN (>60); Globulin 2.6 g/dL (1.3-3.2); Potassium 5.4 mmoL/L (3.5-5.1); Sodium 127 mmol/L (136-145); Total Protein,Serum 7.5 g/dl (6.3-8.2)
[2024-05-14 08:25] LABS: Carbon Dioxide 8 mmol/L (22.0-30.0); Glucose 755 mg/dl (74-100)
--- NOTE | 2024-05-14 08:25 | PC.NURSE ---
aware of glucose and co2 results
--- NOTE | 2024-05-14 08:28 | PC.NURSE ---
lab at unable to collect 2nd bc due to difficult stick. aware, ok to just have one set of bc at this time. Michael in lab aware
--- NOTE | 2024-05-14 08:40 | PC.NURSE ---
speaking with hospitalist about admission
--- NOTE | 2024-05-14 08:42 | PC.NURSE ---
call made to lodging house keeper for bed assignment
[2024-05-14 08:51] LABS: Acetone, Serum (Rapid) Small (None Detect)
[2024-05-14 08:56] LABS: VBG Base Excess -13.3 mmol/L (-2.4-2.3); VBG HCO3 14.2 mmol/L (23-30); VBG PCO2 34.6 mmol/L (35-51); VBG PH 7.23 mmol/L (7.31-7.41); VBG PO2 47.3 mmol/L (28-40); VBG Total CO2 15.3 mmol/L (23-27)
[2024-05-14 08:57] LABS: Lactate Venous 3.5 mmol/L (0.4-2.0)
[2024-05-14 08:58] LABS: Lymphocytes % 5 % (10-50); Macrocytosis 1+; Monocytes % 1 % (2-9); Neutrophils % 94 % (42-76); Platelet Estimate Normal; Total Cells Counted 100
--- NOTE | 2024-05-14 09:00 | PC.NURSE ---
CALLED REPORT TO [facility]. STATES THEY ARE MOVING A PATIENT OUT OF THE ROOM THE PATIENT IS GOING TO AND WILL NEED TO CLEAN IT BEFORE THE PT CAN COME UP.
[2024-05-14] MEDS: 0.9% NaCl w/20mEq KCL 1,000 ML 150 ML IV (09:07)
[2024-05-14] MEDS: INSULIN REGULAR, HUMAN 100 UNIT in 0.9 % SODIUM CHLORIDE 100 ML 9.09 UNIT IV (09:08)
--- NOTE | 2024-05-14 09:22 | PC.NURSE ---
INSULIN DRIP STARTED AT 09:21.
[2024-05-14 09:33] LABS: Anion Gap 23.3 mEq/L (5-15); Blood Urea Nitrogen 63 mg/dl (9-20); Calcium 9.5 mg/dl (8.4-10.2); Carbon Dioxide 15 mmol/L (22.0-30.0); Chloride 96 mmol/L (98-107); Creatinine Clearance Estimated 59 mL/min (50-200); Estimated Glomerular Filt Rate 39 ml/min (>60); GFR (African American) 47 ML/MIN (>60); Magnesium 3.1 mg/dl (1.6-2.3); Phosphorous 4.9 mg/dl (2.5-4.5); Potassium 5.3 mmoL/L (3.5-5.1); Sodium 129 mmol/L (136-145)
[2024-05-14] MEDS: INSULIN HUMAN REGULAR 100 UNITS/ML 10ML VIAL 10 UNIT IV (09:33)
[2024-05-14 09:37] LABS: Glucose 558 mg/dl (74-100)
[2024-05-14 09:44] LABS: Troponin I 0.03 ng/ml (0.00-0.034)
[2024-05-14 10:04] LABS: POC Glucose,Bedside 504 (70-110)
--- NOTE | 2024-05-14 10:06 | DIET.NUTRFU ---
Addendum entered by Leann Chatman RD, LD 05/16/24 11:09: meet with patient today, from interview he indicated he has never watched his diet just ate whatever and then provide insulin without testing BS reviewed multiple handouts; 1500 meal plan, label reading, carb counting, wt loss recommendations. Contact information for outpatient follow-up. Original Note: RD consulted for diet instruction, Included carb counting handout in discharge paperwork. Will followup for any questions. RD also available as outpatient to review meal plan
[2024-05-14 10:18] LABS: Hemoglobin A1C 11.1 % (4.0-6.0)
[2024-05-14] MEDS: 0.9 % SODIUM CHLORIDE 1000ML 1,000 ML 999 ML IV (10:21)
[2024-05-14 10:48] LABS: Reflex Lactic Add Lactic Reflex
[2024-05-14 11:29] LABS: POC Glucose,Bedside 398 (70-110)
[2024-05-14 12:27] LABS: POC Glucose,Bedside 349 (70-110)
--- NOTE | 2024-05-14 12:52 | HMH.PHAINT1 ---
Pharmacy Intervention Comments: MEDICATION RECONCILIATION COMPLETE USING EXTERNAL PHARMACY FILL HISTORY, DOCTOR VISIT NOTES FROM PULMONOLOGY AND ORTHOPEDICS, EXTERNAL PHARMACY FILL HISTORY, AND EDEN REPORT.
[2024-05-14 13:11] LABS: POC Glucose,Bedside 296 (70-110)
[2024-05-14 13:41] LABS: Chloride 106 mmol/L (98-107); Potassium 5.1 mmoL/L (3.5-5.1); Sodium 134 mmol/L (136-145)
[2024-05-14 13:44] LABS: Anion Gap 19.1 mEq/L (5-15); Blood Urea Nitrogen 57 mg/dl (9-20); Carbon Dioxide 14 mmol/L (22.0-30.0); Creatinine Clearance Estimated 71 mL/min (50-200); Estimated Glomerular Filt Rate 48 ml/min (>60); GFR (African American) 58 ML/MIN (>60)
[2024-05-14 13:45] LABS: Calcium 9.3 mg/dl (8.4-10.2); Glucose 310 mg/dl (74-100); Magnesium 3.2 mg/dl (1.6-2.3); Phosphorous 3.7 mg/dl (2.5-4.5)
--- OUTSIDE RECORDS SUMMARY | 2024-05-14 13:52 | XMS_ITS | Clinical Summary ---
Author Organization [facility] Address [address] [place] [address] Care Team Providers Care Engine Oiler Name Role Phone Konstantin Dawn MD Primary Care Provider [phone] Allergies Active Allergy Reactions Criticality Noted Date Comments Naproxen Hives Medium 10/14/2021 Tramadol Hives Medium 10/14/2021 Medications atenolol (TENORMIN) 25 MG tablet Take 1 tablet by mouth daily. 30 tablet 5 10/08/2015 Active atorvastatin (LIPITOR) 40 MG tablet Take 1 tablet by mouth daily. 30 tablet 5 10/08/2015 Active furosemide (LASIX) 40 MG tablet Take 1 tablet by mouth daily. 30 tablet 5 10/08/2015 Active gabapentin (NEURONTIN) 800 MG tablet Take 1 tablet by mouth 3 (three) times a day. 90 tablet 5 10/08/2015 Active glipiZIDE (GLUCOTROL) 10 MG tablet Take 1 tablet by mouth daily. 30 tablet 5 10/08/2015 Active lisinopril-hydro chlorothiazide (PRINZIDE,ZESTOR ETIC) 20-25 MG per tablet Take 1 tablet by mouth daily. 30 tablet 5 10/08/2015 Active clonazePAM (KlonoPIN) 0.5 MG tablet 10/04/2021 Active clopidogrel (PLAVIX) 75 MG tablet 10/07/2021 Active Jardiance 25 MG tablet tablet 10/09/2021 Activ e vitamin D (ERGOCALCIFEROL) 1.25 MG (83648 UT) capsule capsule 10/07/2021 Active Active Problems Problem Noted Date Diagnosed Date Acute bilateral low back pain without sciatica 0 11/23/2017 Spinal stenosis, lumbar michelle on, with neurogenic claudication 11/12/2017 COPD (chronic obstructive pulmonary disease) Tobacco abuse 05/27/2016 Diabetes mellitus 10/08/2015 Hypertension 10/08/2015 Hypercholesteremia 10/08/2015 GERD (gastroesophageal reflux disease) 6 Hypokalemia 10/08/2015 Family History Medical History Relation Name Comments Hypertension Brother Stroke Brother Diabetes Father Hypertension Father Stroke Father Coronary artery disease Mother Heart attack Mother Hypertension Mother Heart attack Sister Relation Name Status Comments Brother Father Mother Sister Social History Tobacco Use Types Packs/Day Years Used Date Smoking Tobacco: Former Cigarettes Q uit: 2018 Smokeless Tobacco: Never Alcohol Use Standard Drinks/Week Comments No 0 (1 standard drink = 0.6 oz pur e alcohol) Abuse Screen Answer Date Recorded Unsafe at Home or Work/School Not on file Feels Threatened by Someone? Not on file 04/2023 Does Anyone Keep You from Co ntacting Others or Doint Things Outside the Home? Not on file 03/18/2023 Physical Sign of Abuse Present Not on file 1 Housing Stability Answer Date Recorded Current Living Arrangements Not on file 03/08 Potentially Unsafe Housing Conditions Not on mikey e 03/18/2023 Family and Community Support Answer Olvin e Recorded Help with Day-to-Day Activities Not on file 03/18/2023 Lonely or Isolated Not on file 03/18/2023 Employment Answer Date Recorded Do you want help finding or keeping work or a david b? Not on file 03/18/2023 Disabilities Answer Date Recorded Concentrating, Remembering, or Making Decisions Difficulty Not on file 03/18/2023 Doing Errands Independently Difficulty Not on fi le 03/18/2023 Education Answer Date Recorded Help with school or training? Not on file Preferred Language Not on file 03/18/2023 Sex and Gender Information Value Date Recorded Sex Assigned at Not on file Legal Sex Male 6:18 AM EDT Gender Identity Not on file Sexual Orientation Not on file Last Filed Vital Signs Vital Sign Reading Time Taken Comments Blood Pressure 118/68 11/12/2017 1:20 PM EDT Pulse 78 12/14/2015 10:18 AM EDT Temperature 36.3 ??C (97.3 ??F) 10/14/2021 1:30 PM ED T Respiratory Rate 18 11/23/2017 1:25 PM EDT Oxygen Saturation 99% 11/23/2017 1:25 PM EDT Inhaled Oxygen Concentration - - Weight 106 kg (234 lb) 10/14/2021 1:30 PM EDT Height 165.1 cm (5' 5 ) 10/14/2021 1:30 PM EDT Body Mass Index 38.94 10/14/2021 1:30 PM EDT Plan of Treatment Health Maintenance Due Date Last Done Comments ANNUAL PHYSICAL 1960 COLOGUARD 1960 COLON CANCER SCREENING 5 YEAR SIGMOIDOSCOPY 1960 COLONOSCOPY [address] CANCER SCREENING 1962 CT COLONOGRAPHY 1962 DIABETIC FOOT EXAM 1960 FECAL OCCULT BLOOD TEST 1962 FIT Testing (1 year) 1960 HEPATITIS C SCREENING 1960 URINE MICROALBUMIN 1960 Pneumococcal Vaccine 0-64 (1 of 2 - PCV) 1968 DIABETIC EYE EXAM 1972 TDAP/TD VACCINES (2 - Tdap) 08/08/2006 08/08/1996 ZOSTER VACCINE (1 of 2) 2012 HEMOGLOBIN A1C 06/15/2016 12/14/2015 LIPID PANEL 12/13/2016 12/14/2015 INFLUENZA VACCINE 12/07/2023 04/19/2018 COVID-19 Vaccine ( season) 2024 Procedures Procedure Name Priority Date/Time Associated Diagnosis Comments HEMOGLOBIN A1C Routine 12/14/2015 1:47 PM EDT Type 2 diabetes mellitus with diabetic neuropathy LIPID PANEL Routine 12/14/2015 1:47 PM EDT Type 2 diabetes mellitus with diabetic neuropathy from Last 3 Months or Most Recently Relevant to Health Maintenance Results * (ABNORMAL) Hemoglobin A1c (12/14/2015 1:47 PM EDT) Hemoglobin A1C 6.40(H) 4.00 - 6.00 % [facility] Blood specimen (specimen) 12/14/2015 1:47 PM EDT 12/14/2015 3:49 PM EDT Narrative [facility]) - 12/14/2015 8:09 PM EDT Performed at: ??[address], [place], [place] ??[id number] Nuclear Control Operator: Concetta Juan MD, Phone: ??[phone] us Tani Patterson MD LAB BLOOD ORDERABLES Final Resu lt [facility] ([facility]) [address] [place] [address], [facility] [address] [place] [address], * (ABNORMAL) Lipid panel (12/14/2015 1:47 PM EDT) Total Cholesterol 140 0 - 200 mg/dL [facility] Comment: Cholesterol Reference Ranges: Desirable ? < 200 mg/dL Borderline ?200-239 mg/dL High Risk ? > 239 mg/dL Triglyceride Reference Ranges: Normal ?< 150 mg/dL Borderline ?150-199 mg/dL High ?200-499 mg/dL Very High ? > 499 mg/dL HDL Reference Ranges: Low ?< 40 mg/dL High ? > 59 mg/dL LDL Reference Ranges: Optimal ? < 100 mg/dL Near Optimal ??100-129 mg/dL Borderline ?130-159 mg/dL High ?160-189 mg/dL Very High ? > 189 mg/dL Triglycerides 112 0 - 150 mg/dL [facility] HDL Cholesterol 34(L) 40 - 60 mg/dL [facility] VLDL Cholesterol 22.4 mg/dL [facility] LDL Cholesterol 84 0 - 100 mg/dL [facility] Blood specimen (specimen) 12/14/2015 1:47 PM EDT 12/14/2015 3:49 PM EDT Narrative [facility] ([facility]) - 12/14/2015 8:09 PM EDT Performed at: ?? - [address], [place], [place] ??[id number] Nuclear Control Operator: Concetta Juan MD, Phone: ??[phone] us Tani Patterson MD LAB BLOOD ORDERABLES Final Resu lt [facility] ([facility]) [address] [place] [address], [facility] [address] [place] [address], [place] [phone] from Last 3 Months or Most Recently Relevant to Health Maintenance Insurance [address] [place] [id number] [place] [address] MEDICAID Care Teams Engine Oiler Relationship Specialty Start Date End Date Konstantin Dawn MD [address] [place] [address] PCP - General Internal Medicine 08/13/21
--- OUTSIDE RECORDS SUMMARY | 2024-05-14 13:52 | XMS_ITS | Encounter Summary ---
Author Organization [facility] Address [address] [place] [address] Care Team Providers Care News Broadcaster Name Role Phone Konstantin Dawn MD Primary Care Provider [phone] Reason for Visit * Reason Comments Left side neck pain * Consultation (Routine) - Closed Specialty Diagnoses / Procedures Referred By Contac t Referred To Contact Neurosurgery Diagnoses MULTILEVEL DISC PROTRUSIONS Konstantin Dawn MD [address] [place] [address] Phone: tel: fax: Adryan Ojeda PA-C [address] [address] Phone: tel: fax: Referral ID Status Reason Start Date Expiration Date Visits Re quested Visits Authorized [id number] Closed 08/21/2021 08/21/2022 1 1 Encounter Details Date Type Department Care Team (Late st Contact Info) Description 10/14/2021 1:00 PM EDT Office Visit [facility] [address] [facility] [address] [place] [address] Adryan Ojeda PA-C [address] [facility] [address] [place] [address] Spinal stenosis, lumbar region, with neurogenic claudication (Primary Dx) Social History Tobacco Use Types Packs/Day Years Used Date Smoking Tobacco: Former Cigarettes Q uit: 2018 Smokeless Tobacco: Never Alcohol Use Standard Drinks/Week Comments No 0 (1 standard drink = 0.6 oz pur e alcohol) Sex and Gender Information Value Date Recorded Sex Assigned at Not on file Legal Sex Male 6:18 AM EDT Gender Identity Not on file Sexual Orientation Not on file documented as of this encounter Last Filed Vital Signs Vital Sign Reading Time Taken Comments Blood Pressure - - Pulse - - Temperature 36.3 ??C (97.3 ??F) 10/14/2021 1:30 PM ED T Respiratory Rate - - Oxygen Saturation - - Inhaled Oxygen Concentration - - Weight 106 kg (234 lb) 10/14/2021 1:30 PM EDT Height 165.1 cm (5' 5 ) 10/14/2021 1:30 PM EDT Body Mass Index 38.94 10/14/2021 1:30 PM EDT documented in this encounter Progress Notes * Adryan Ojeda PA-C - 10/14/2021 1:00 PM EDT Patient: Seamus Persaud : 1960 Primary Care Provider: Konstantin Dawn MD Chief Complaint: Neck and left shoulder pain History of Present Illness: Patient is a nice 60-year-old gentleman who has had on and off again neck pains over the last 5 years or so but over the last 4 months has had sustained pain in the left side of his neck that runs into the jaw and into the left shoulder. Patient states that he has had injections in the past about 3 years ago but has been through physical therapy using heat and ice and has not really had much relief. Unfortunately showed up today withno images. Patient states that the pain is constant and really is aggravated with extending his neck back and overactivity. Patient is able to get some comfort by lying flat Review of Systems Constitutional: Positive for fatigue. Negative for activity change, appetite change, chills, diaphoresis, fever and unexpected weight change. HENT: Positive for congestion, drooling and sneezing. Negative for dental problem, ear discharge, ear pain, facial swelling, hearing loss, mouth sores, nosebleeds, postnasal drip, rhinorrhea, sinus pressure, sinus pain, sore throat, tinnitus, trouble swallowing and voice change. Eyes: Positive for pain, discharge and redness. Negative for photophobia, itching and visual disturbance. Respiratory: Positive for cough, chest tightness and shortness of breath. Negative for apnea, choking, wheezing and stridor. Cardiovascular: Positive for chest pain and leg swelling. Negative for palpitations. Gastrointestinal: Positive for abdominal pain, blood in stool and diarrhea. Negative for abdominal distention, anal bleeding, constipation, nausea, rectal pain and vomiting. Endocrine: Positive for heat intolerance. Negative for cold intolerance, polydipsia, polyphagia andpolyuria. Genitourinary: Negative for decreased urine volume, difficulty urinating, dysuria, enuresis, flank pain, frequency, genital sores, hematuria, penile discharge, penile pain, penile swelling, scrotal swelling, testicular pain and urgency. Musculoskeletal: Positive for back pain, joint swelling, neck pain and neck stiffness. Negative forarthralgias, gait problem and myalgias. Skin: Negative for color change, pallor, rash and wound. Allergic/Immunologic: Negative for environmental allergies, food allergies and immunocompromised state. Neurological: Positive for dizziness, weakness, numbness and headaches. Negative for tremors, seizures, syncope, facial asymmetry, speech difficulty and light-headedness. Hematological: Negative for adenopathy. Bruises/bleeds easily. Psychiatric/Behavioral: Positive for confusion and sleep disturbance. Negative for agitation, behavioral problems, decreased concentration, dysphoric mood, hallucinations, self-injury and suicidal ideas. The patient is not nervous/anxious and is not hyperactive. Past Medical History: Past Medical History: Diagnosis Date ??? Acid reflux ??? Arthritis ??? Diabetes mellitus (HCC) ??? Headache ??? Hyperlipidemia ??? Hypertension ??? Low back pain ??? Myocardial infarction (HCC) ??? Stroke (HCC) Family History: Family History Problem Relation Age of Onset ??? Coronary artery disease Mother ??? Hypertension Mother ??? Heart attack Mother ??? Diabetes Father ??? Hypertension Father ??? Stroke Father ??? Heart attack Sister ??? Stroke Brother ??? Hypertension Brother Social History: reports that he quit smoking about 4 years ago. He has never used smokeless tobacco. He reports current drug use. Drug: Marijuana. He reports that he does not drink alcohol. SMOKING STATUS: Non-smoker 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: Past 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: Procedure Laterality Date ??? CHOLECYSTECTOMY ??? KNEE ARTHROSCOPY Right ??? SHOULDER SURGERY Left 2011 Allergies: Naproxen and Tramadol Physical Exam: Vital Signs:Temp 97.3 ??F (36.3 ??C) Ht 165.1 cm (65 ) Wt 106 kg (234 lb) BMI 38.94 kg/m?? BMI: Body mass index is 38.94 kg/m??. GENERAL: The patient is in no acute distress, and is able to answer all questions appropriately. Neck: Supple without lymphadenopathy Cardiovascular: Peripheral pulses 2+ at dorsalis pedis and posterior tibialis Lungs: Breathing unlabored Musculoskeletal: Microphone Boom Operator strength is 5 out of 5 bilaterally. Shoulder abduction is 5 out of 5. Dorsiflexion is 5/5 Bilaterally Plantarflexion is 5/5 bilaterally Hip Flexion 5/5 bilaterally. The patient??s gait is normal without antalgia. Neurologic: The patient is alert and oriented by 3. Pupils are equal and reactive to light. Visual harris are full. Extraocular movements are intact without nystagmus. There is no evidence of central motor drift. No facial droop. No difficulty with rapid alternating movements. Sensation is equal bilaterally with no deficit. Reflexes: 2+ through out No Aggarwal's no clonus no long track signs CRANIAL NERVES: Deferred secondary to COVID mask Medical Decision Making Data Review: No images available for review we will have him bring this back and give him a call Diagnosis: Left cervical radiculopathy Treatment Options: My assumption is that he has a C4-5 or C5-6 disc herniation on the left. I discussed with him I would likely refer him to pain management for some injections. I will call him with the results of the MRIs to give our more formal recommendation Class 2 Severe Obesity (BMI >=35 and <=39.9). Obesity-related health conditions include the following: none. Obesity is unchanged. BMI is is above average; BMI management plan is completed. We discussed portion control and increasing exercise. Diagnosis Plan 1. Spinal stenosis, lumbar region, with neurogenic claudication documented in this encounter Plan of Treatment Not on file documented as of this encounter Visit Diagnoses Diagnosis Spinal stenosis, lumbar region, with neurogenic claudication- Primary documented in this encounter Care Teams News Broadcaster Relationship Specialty Start Date End Date Konstantin Dawn MD [address] [place], [place] [phone] (Work) PCP - General Internal Medicine 08/13/21 documented as of this encounter
--- OUTSIDE RECORDS SUMMARY | 2024-05-14 13:52 | XMS_ITS | Encounter Summary ---
Author Organization [facility] Address [address] [place] [id number] Care Team Providers Care Pt Escort Name Role Phone Konstantin Dawn MD Primary Care Provider [phone] Reason for Visit * Reason Onset Date Comments OJEDA- MRI DISC 10/31/2021 Encounter Details Date Type Department Care Team (Late st Contact Info) Description 10/31/2021 Telephone [facility]UR[facility] [address] [facility] [address] [place] [address] Kath Ojeda PA-C [address] [facility] [address] [place] [address] OJEDA- MRI DISC Social History Tobacco Use Types Packs/Day Years [...] on file documented as of this encounter Progress Notes * Antonette Barkley MA - 11/06/2021 5:36 PM EDTAddended by: ANTONETTE BARKLEY on: 11/06/2021 05:36 PM Modules accepted: Orders documented in this encounter Miscellaneous Notes * Telephone Encounter - Antonette Barkley MA - 11/06/2021 5:33 PM EDT MRI cervical spine uploaded to chart and the disc mailed to pt's address on file. * Telephone Encounter - Flor Blake - 11/06/2021 5:03 PM EDT Disc found. Given to Antonette to scan in for Layne review. * Telephone Encounter - Raysa Evans RegSched Rep - 11/06/2021 4:59 PM EDT PT CALLED BACK, VERY FRUSTRATED AND ANGRY THAT HE IS NOT GETTING AN ANSWERS OR A RESPONSE. I CALLED OFFICE, JARRETT RAY, SHE STATED SHE DID FIND THE DISK AND WILL HAVE IT SCANNED INTO THE CHART AND WILL HAVE KATH OJEDA TO CALL HIM TOMORROW. I INFORMED PT THAT THE DISK HAD BEEN FOUND AND IS BEING GIVEN TO KATH OJEDA TOMORROW AND HE WILL CALL HIM BACK WITH RESULTS TOMORROW. PT WAS FINE WITH THIS MESSAGE. PT IS EXPECTING A CALL 11/07/2021. * Telephone Encounter - Flor Blake - 11/06/2021 9:52 AM EDT Patient states he handed the disc to someone in our office. I do not have this disc. Has anyone else received it? * Telephone Encounter - Tari Matthews RegSched Rep - 11/06/2021 9:43 AM EDT Caller: Seamus Persaud Relationship: Self Best call back number: [phone] What was the call regarding: PATIENT CALLED BACK REGARDING HIS DISC. I SPOKE WITH FLOR AT THE OFFICE, SHE WILL CHECK WITH [facility]CMA[facility] REGARDING THE DISC. * Telephone Encounter - Flor Blake - 11/05/2021 9:26 AM EDT I do not have a disc for this patient. * Telephone Encounter - Tari Matthews RegSched Rep - 11/05/2021 9:20 AM EDT Caller: Seamus Persaud Relationship: Self Best call back number: [phone] What was the call regarding: PATIENT IS REQUESTING A CALL BACK REGARDING HIS MRI DISC. HE STATES HE DROPPED IT OFF A COUPLE OF WEEKS AGO. PLEASE CALL PATIENT BACK AT [phone]. * Telephone Encounter - Ana Vanegas MA - 10/31/2021 4:18 PM EDT Provider: LUIS EDUARDO Cornelius Surgery: NA Surgery Date: NA Last visit: Office Visit with Kath Ojeda PA-C (10/14/2021) Next visit: NA Reason for call: Patient LVM stating that he brought his MRI disc to our office a couple weeks ago and is inquiring about the results. documented in this encounter Plan of Treatment Not on file documented as of this encounter Results * MRI outside films (11/06/2021 5:33 PM EDT) Narrative SYSTEMGENERATED, DOCUMENTATION - 11/06/2021 5:33 PM EDT This procedure was auto-finalized with no dictation required. us Kath Ojeda PA-C IMG MRI ORDERABLES Final Resul t documented in this encounter Visit Diagnoses Not on filedocumented in this encounter Care Teams Pt Escort Relationship Specialty Start Date End Date Konstantin Dawn MD [address] [place], [place] [id number] PCP - General Internal Medicine 08/13/21 documented as of this encounter
--- OUTSIDE RECORDS SUMMARY | 2024-05-14 13:52 | XMS_ITS | Encounter Summary ---
Author Organization [facility] Address [address] [place] [address] Care Team Providers Care Staffing Account Manager Name Role Phone Marcos Casper MD Primary Care Provider [phone] Encounter Details Date Type Department Care Team (Late st Contact Info) Description 12/17/[address] [facility] NEUR[facility] [address] [facility] [address] [place] [address] Tamara Sexton MA Social History Tobacco Use Types Packs/Day Years Used Date Smoking Tobacco: Every Day Alcohol Use Standard Drinks/Week Comments No 0 (1 standard drink = 0.6 oz pur e alcohol) Sex and Gender Information Value Date Recorded Sex Assigned at Not on file Legal Sex Male 6:18 AM EDT Gender Identity Not on file Sexual Orientation Not on file documented as of this encounter Miscellaneous Notes * Telephone Encounter - Tamara Sexton MA - 12/17/2017 12:48 PM EDT Pt called in to office to check on his referral to . I explained to pt that we give a lot of referrals so they may be backed up. -Routing to [facility] to see documented in this encounter Plan of Treatment Not on file documented as of this encounter Visit Diagnoses Not on filedocumented in this encounter Care Teams Staffing Account Manager Relationship Specialty Start Date End Date Marcos Casper MD [address] [place] [facility] [address] ATTN: [place] [address] PCP - General Emergency Medicine 10/16/17 08/12/21 documented as of this encounter
--- OUTSIDE RECORDS SUMMARY | 2024-05-14 13:52 | XMS_ITS | Encounter Summary ---
Author Organization [facility] Address [address] [place] [id number] Care Team Providers Care Ceramics Machine Operator Name Role Phone Konstantin Dawn MD Primary Care Provider [phone] Reason for Visit * Reason Onset Date Comments REFERRAL 08/20/2021 Encounter Details Date Type Department Care Team (Late st Contact Info) Description 08/20/2021 Telephone [facility]UR[facility]ERY [address] [facility] [address] [place] [phone] Provider, [place] [address] REFERRAL Social History Tobacco Use Types Packs/Day Years [...] encounter Miscellaneous Notes * Telephone Encounter - Pat Faustin RegSched Rep - 08/20/2021 10:32 AM EDT PATIENT CALLED TO CHECK STATUS OF REFERRAL, NO REFERRAL IN CHART. PLEASE CALL PATIENT TO SCHEDULE PATIENT STATES DR. DAWN WAS SENDING CAN NUMBER [phone] CALLED REFERRING OFFICE SPOKE W/BAM REFERRAL SENT ON 08/08/21 TO [phone] SHE STATES REFERRED TO 1ST AVAILABLE MRI - LUMBAR OV NOTES SHE IS REFAXING TO [facility] documented in this encounter Plan of Treatment Not on file documented as of this encounter Visit Diagnoses Not on filedocumented in this encounter Care Teams Ceramics Machine Operator Relationship Specialty Start Date End Date Konstantin Dawn MD [address] [place] [address] PCP - General Internal Medicine 08/13/21 documented as of this encounter
--- OUTSIDE RECORDS SUMMARY | 2024-05-14 13:52 | XMS_ITS | Encounter Summary ---
[facility] Organization [facility] Address [address] [place] [address] Care Team Providers Care Paper Machine Operator Name Role Phone Marcos Casper MD Primary Care Provider [phone] Encounter Details Date Type Department Care Team (Late st Contact Info) Description 12/18/2017 Telephone [facility]IN [facility] [address] [facility] [address] [place] [address] Letty Garcia Social History Tobacco Use Types Packs/Day Years [...] encounter Miscellaneous Notes * Telephone Encounter - Marcos Mcdonald MA - 12/18/2017 1:40 PM EDT Spoke with pt, gave him office number to call and schedule appt. With Vascello * Telephone Encounter - Letty Garcia - 12/18/2017 10:01 AM EDT Received a message from benjamin with [employer] to contact the patient for scheduling, I have tried to call 3x 12/17/17 @3:50 pm 12/18/17 @ 8:30 am 12/18/17 @ 10:00 am I am unable to leave the patient a message, phone rings 5-6 times then goes to a busy tone. Patient can contact the office if he would like to schedule. [phone] documented in this encounter Plan of Treatment Not on file documented as of this encounter Visit Diagnoses Not on filedocumented in this encounter Care Teams Paper Machine Operator Relationship Specialty Start Date End Date Marcos Casper MD [address] [facility] [address] ATTN: [place] [address] PCP - General Emergency Medicine 10/16/17 08/12/21 documented as of this encounter
--- OUTSIDE RECORDS SUMMARY | 2024-05-14 13:52 | XMS_ITS | Encounter Summary ---
Author Organization [facility] Address [address] [place] [id number] Care Team Providers Care Photonic Laboratory Technician Name Role Phone Marcos Casper MD Primary Care Provider [phone] Reason for Referral * (Routine) - Closed Specialty Diagnoses / Procedures Referred By Contac t Referred To Contact Radiology Diagnoses Encounter for imaging to screen for metal prior to MRI Procedures XR Orbits 4+ View Adryan Ojeda PA-C [address] [place] [address] Phone: tel: fax: Referral ID Status Reason Start Date Expiration Date Visits Re quested Visits Authorized [id number] Closed 11/23/2017 11/23/2018 1 1 * (Routine) - Closed Specialty Diagnoses / Procedures Referred By Contac t Referred To Contact Radiology Diagnoses Spinal stenosis, lumbar region, with neurogenic claudication Procedures XR Spine Lumbar Flex & Ext Adryan Ojeda PA-C [address] [place] [address] Phone: tel: fax: Referral ID Status Reason Start Date Expiration Date Visits Re quested Visits Authorized [id number] Closed 11/12/2017 11/12/2018 1 1 Reason for Visit * (Routine) - Closed Specialty Diagnoses / Procedures Referred By Contac t Referred To Contact Radiology Diagnoses Encounter for imaging to screen for metal prior to MRI Procedures XR Orbits 4+ View Adryan Ojeda PA-C [address] [place] [address] Phone: tel: fax: Referral ID Status Reason Start Date Expiration Date Visits Re quested Visits Authorized [id number] Closed 11/23/2017 11/23/2018 1 1 Encounter Details Date Type Department Care Team (Latest Contact Info) Description 11/23/2017 12:00 PM EDT - 11/23/2017 11:59 PM EDT Hospital Encounter [facility] XRAY AT [address] [place] [address] Spinal stenosis, lumbar region, with neurogenic claudication; Encounter for imaging to screen for metal prior to MRI Discharge Disposition: Home or Self Care Social History Tobacco Use Types Packs/Day Years Used Date Smoking Tobacco: Every Day Alcohol Use Standard Drinks/Week Comments No 0 (1 standard drink = 0.6 oz pur e alcohol) Sex and Gender Information Value Date Recorded Sex Assigned at Not on file Legal Sex Male 6:18 AM EDT Gender Identity Not on file Sexual Orientation Not on file documented as of this encounter Medications at Time of Discharge atenolol (TENORMIN) 25 MG tablet Take 1 tablet by mouth daily. 30 tablet 5 10/08/2015 atorvastatin (LIPITOR) 40 MG tablet Take 1 tablet by mouth daily. 30 tablet 5 10/08/2015 furosemide (LASIX) 40 MG tablet Take 1 tablet by mouth daily. 30 tablet 5 10/08/2015 gabapentin (NEURONTIN) 800 MG tablet Take 1 tablet by mouth 3 (three) times a day. 90 tablet 5 10/08/2015 glipiZIDE (GLUCOTROL) 10 MG tablet Take 1 tablet by mouth daily. 30 tablet 5 10/08/2015 lisinopril-hydroc hlorothiazide (PRINZIDE,ZESTORE TIC) 20-25 MG per tablet Take 1 tablet by mouth daily. 30 tablet 5 10/08/2015 aspirin (ASPIRIN LOW DOSE) 81 MG EC tablet Take 1 tablet by mouth daily. 90 tablet 1 12/18/2015 10/14/2021 HYDROcodone-aceta minophen (NORCO) 5-325 MG per tablet Take 1 tablet by mouth Every 6 (Six) Hours As Needed. 10/14/2021 metFORMIN (GLUCOPHAGE) 1000 MG tablet Take 1 tablet by mouth 2 (two) times a day with meals. 60 tablet 5 10/08/2015 10/14/2021 pantoprazole (PROTONIX) 40 MG EC tablet Take 1 tablet by mouth daily. 30 tablet 5 10/08/2015 10/14/2021 potassium chloride (K-DUR) 10 MEQ CR tablet Take 1 tablet by mouth 2 (two) times a day. 60 tablet 5 10/08/2015 10/14/2021 potassium chloride (MICRO-K) 10 MEQ CR capsule Take by mouth. 08/08/2015 10/14/2021 QUEtiapine (SEROquel) 100 MG tablet TAKE ONE TABLET BY MOUTH AT BEDTIME GENERIC FOR SEROQUEL 30 tablet 2 01/11/2016 10/14/2021 sulindac (CLINORIL) 200 MG tabletIndications :Knee pain, acute, right Take 1 tablet by mouth 2 (two) times a day. 60 tablet 3 12/14/2015 10/14/2021 documented as of this encounter Plan of Treatment Not on file documented as of this encounter Procedures Procedure Name Priority Date/Time Associated Diagnosis Comments XR SPINE LUMBAR FLEX AND EXT Routine 11/23/2017 12:12 PM EDT Spinal stenosis, lumbar region, with neurogenic claudication XR ORBITS 4+ VW Routine 11/23/2017 12:12 PM EDT Encounter for imaging to screen for metal prior to MRI documented in this encounter Results * XR Orbits 4+ View (11/23/2017 12:12 PM EDT) Anatomical Region Laterality Modality Head and Neck N/A Radiographic Nanda ging 11/23/2017 12:2 3 PM EDT Impressions 11/23/2017 3:55 PM EDT No radiopaque foreign body identified overlying either orbit. D: ??11/23/2017 E: ??11/23/2017 This report was finalized on 11/23/2017 3:[address] Maria A Birch MD. Narrative 11/23/2017 3:55 PM EDT EXAMINATION: XR ORBITS 4+ VW- 11/23/2017 INDICATION: History of metal in eye; Z13.89-Encounter for screening for other disorder COMPARISON: NONE FINDINGS: 4 views of the orbits reveal no radiopaque foreign body identified overlying the orbits. Visualized bony structures are unremarkable. Mastoid air cells are patent. Visualized paranasal sinuses are clear. ? Procedure Note Maria A Birch MD - 11/23/2017 EXAMINATION: XR ORBITS 4+ VW- 11/23/2017 INDICATION: History of metal in eye; Z13.89-Encounter for screening for other disorder COMPARISON: NONE FINDINGS: 4 views of the orbits reveal no radiopaque foreign body identified overlying the orbits. Visualized bony structures are unremarkable. Mastoid air cells are patent. Visualized paranasal sinuses are clear. IMPRESSION: No radiopaque foreign body identified overlying either orbit. E: 11/23/2017 This report was finalized on 11/23/2017 3:[address] Maria A Birch MD. Adryan Ojeda PA-C IMG DIAGNOSTIC IMAGING ORDERAB LES Final Result * XR Spine Lumbar Flex & Ext (11/23/2017 12:12 PM EDT) Anatomical Region Laterality Modality Spine, L-spine N/A Radiographic Nanda ging 11/24/2017 11:2 9 AM EDT Impressions 11/24/2017 11:36 AM EDT Normal lumbar alignment, stable in the flexed and extended positions. There are advanced degenerative changes manifest by vertebral body osteophytes. D: ??11/24/2017 E: ??11/24/2017 This report was finalized on 11/24/2017 11:[address] Salvador Murphy MD. Narrative 11/24/2017 11:36 AM EDT EXAMINATION: XR SPINE, LUMBAR, FLEXION AND EXTENSION-11/23/2017: INDICATION: LBP; M48.062-Spinal stenosis, lumbar region with neurogenic claudication. COMPARISON: NONE. FINDINGS: Lateral view of the lumbar spine demonstrates normal alignment. There are prominent osteoarthritic changes as manifest by anterior vertebral body osteophytes. There is no fracture or subluxation. The alignment is stable in the flexed and extended positions. ? Procedure Note Luis F Murphy MD - 11/24/2017 EXAMINATION: XR SPINE, LUMBAR, FLEXION AND EXTENSION-11/23/2017: INDICATION: LBP; M48.062-Spinal stenosis, lumbar region with neurogenic claudication. COMPARISON: NONE. FINDINGS: Lateral view of the lumbar spine demonstrates normal alignment. There are prominent osteoarthritic changes as manifest by anterior vertebral body osteophytes. There is no fracture or subluxation. The alignment is stable in the flexed and extended positions. IMPRESSION: Normal lumbar alignment, stable in the flexed and extended positions. There are advanced degenerative changes manifest by vertebral body osteophytes. E: 11/24/2017 This report was finalized on 11/24/2017 11:[address] Salvador Murphy MD. Adryan Ojeda PA-C IMG DIAGNOSTIC IMAGING ORDERAB LES Final Result documented in this encounter Visit Diagnoses Diagnosis Spinal stenosis, lumbar region, with neurogenic claudication Encounter for imaging to screen for metal prior to MRI Special screening for other specified conditions documented in this encounter Care Teams Photonic Laboratory Technician Relationship Specialty Start Date End Date Marcos Casper MD [address] ATTN: [place] [address] PCP - General Emergency Medicine 10/16/17 08/12/21 documented as of this encounter
--- OUTSIDE RECORDS SUMMARY | 2024-05-14 13:53 | XMS_ITS | Encounter Summary ---
Author Organization [facility] Address [address] [place] [address] Care Team Providers Care Shellfish Grower Name Role Phone Lacey Welsh APRN Primary Care Provider [phone] Reason for Referral * Diagnostic Imaging (Routine) - Closed Specialty Diagnoses / Procedures Referred By Contac t Referred To Contact Radiology Diagnoses Knee pain, acute, right Procedures XR knee 3 vw right Tani Patterson MD [address] [place] [address] Phone: tel: fax: [facility] [place] [address] [place] [address] Phone: tel: Referral ID Status Reason Start Date Expiration Date Visits Re quested Visits Authorized [id number] Closed 12/14/2015 06/11/2016 1 1 Reason for Visit * Reason Comments Knee Pain Encounter Details Date Type Department Care Team (Late st Contact Info) Description 12/14/2015 10:15 AM EDT Office Visit [facility] [address] [place] [address] Tani Patterson MD [address] [place] [address] Essential hypertension (Primary Dx); Type 2 diabetes mellitus with diabetic neuropathy; Knee pain, acute, right; Hypercholesteremia Social History Tobacco Use Types Packs/Day Years [...] Sign Reading Time Taken Comments Blood Pressure 122/84 12/14/2015 10:18 AM EDT Pulse 78 12/14/2015 10:18 AM EDT Temperature 37 ??C (98.6 ??F) 12/14/2015 10:18 AM EDT Respiratory Rate 18 12/14/2015 10:18 AM EDT Oxygen Saturation - - Inhaled Oxygen Concentration - - Weight 101 kg (223 lb) 12/14/2015 10:18 AM EDT Height - - Body Mass Index 37.11 10/08/2015 3:56 PM EDT documented in this encounter Progress Notes * Tani Patterson MD - 12/14/2015 10:36 AM EDT Images from the original note were not included. Subjective Seamus Persaud is a 54 y.o. male. History of Present Illness His right knee keeps giving out on him and has been doing so This has been going on for the last 2 months He did fall down the stairs on different occasions and he feels he fell because the right knee gaveout on him No trauma nor any inciting event that caused the right knee pain He has had 2 surgeries on the right knee, the last one in 2012 or 2013 Drt. Dickerson did surgery on him in the past but said there was not anything he could do about the knee He is also here to follow up with his DM He is on metfomin and glipizide When he takes his metformin it bothers him when he does not eat. He gets N/V/D without eating whileon this Checks his blood sugars rarely, not always well controled but can be ok He has been taking his BP and cholesterol medicine without any issues I am somewhat skeptical that he is compliant with medictions but will check labs and see what the results are. The following portions of the patient's history were reviewed and updated as appropriate: allergies, current medications, past family history, past medical history, past social history, past surgicalhistory and problem list. Review of Systems Constitutional: Negative. HENT: Negative. Eyes: Negative. Respiratory: Negative. Cardiovascular: Negative. Gastrointestinal: Negative. Musculoskeletal: Positive for gait problem and joint swelling. Right knee pain Skin: Negative. Psychiatric/Behavioral: Negative. All other systems reviewed and are negative. Objective Physical Exam Constitutional: He is oriented to person, place, and time. He appears well- developed and well-nourished. No distress. HENT: Head: Normocephalic and atraumatic. Right Ear: External ear normal. Left Ear: External ear normal. Nose: Nose normal. Mouth/Throat: Oropharynx is clear and moist. Eyes: Conjunctivae and EOM are normal. Neck: Normal range of motion. Neck supple. Cardiovascular: Normal rate, regular rhythm and normal heart sounds. No murmur heard. Pulmonary/Chest: Effort normal and breath sounds normal. No respiratory distress. Abdominal: Soft. Bowel sounds are normal. He exhibits no distension and no mass. There is no tenderness. Musculoskeletal: Legs: Neurological: He is alert and oriented to person, place, and time. Skin: Skin is warm and dry. Psychiatric: He has a normal mood and affect. His behavior is normal. Judgment and thought content normal. Nursing note and vitals reviewed. Assessment/Plan Seamus was seen today for knee pain. Diagnoses and all orders for this visit: Essential hypertension Orders: - Comprehensive metabolic panel - CBC and Differential Type 2 diabetes mellitus with diabetic neuropathy Orders: - Hemoglobin A1c - Comprehensive metabolic panel - CBC and Differential - Lipid panel Knee pain, acute, right Orders: - XR knee 3 vw right; Future - sulindac (CLINORIL) 200 MG tablet; Take 1 tablet by mouth 2 (two) times a day. Hypercholesteremia BP well controlled, no change in medicine Will check DM and cholesterol labs. Knee pain an ongoing issue, check xr and consider MRI for meniscal injury pending results. Pt agrees. Trial of NSAID documented in this encounter Plan of Treatment Not on file documented as of this encounter Procedures Procedure Name Priority Date/Time Associated Diagnosis Comments CBC AND DIFFERENTIAL Routine 12/14/2015 1:47 PM EDT Essential hypertension Type 2 diabetes mellitus with diabetic neuropathy HEMOGLOBIN A1C Routine 12/14/2015 1:47 PM EDT Type 2 diabetes mellitus with diabetic neuropathy LIPID PANEL Routine 12/14/2015 1:47 PM EDT Type 2 diabetes mellitus with diabetic neuropathy COMPREHENSIVE METABOLIC PANEL Routine 12/14/2015 1:47 PM EDT Essential hypertension Type 2 diabetes mellitus with diabetic neuropathy documented in this encounter Results * (ABNORMAL) Lipid panel (12/14/2015 1:47 PM [...] EDT 12/14/2015 3:49 PM EDT Narrative [facility] ([facility]UL[facility]) - 12/14/2015 8:09 PM EDT Performed at: ??01 - [address] ??[id number] Body Work Auto Trimmer: Concetta Juan MD, Phone: ??[phone] us Tani Patterson MD LAB BLOOD ORDERABLES Final Resu lt [facility] ([facility]UL[facility]ORY) [address] [place] [address], [facility] [address] [place] [address], * (ABNORMAL) CBC and Differential (12/14/2015 1:47 PM EDT) WBC 8.15 3.50 - 10.80 10*3/mm3 [facility] RBC 4.42 4.20 - 5.76 10*6/mm3 [facility] Hemoglobin 14.0 13.1 - 17.5 g/dL [facility] Hematocrit 41.6 38.9 - 50.9 % [facility] MCV 94.1 80.0 - 99.0 fL [facility] MCH 31.7(H) 27.0 - 31.0 pg [facility] MCHC 33.7 32.0 - 36.0 g/dL [facility] RDW 14.6(H) 11.3 - 14.5 % [facility] Platelets 260 150 - 450 10*3/mm3 [facility] Neutrophil Rel % 61.5 41.0 - 71.0 % [facility] Lymphocyte Rel % 27.7 24.0 - 44.0 % [facility] Monocyte Rel % 7.9 0.0 - 12.0 % [facility] Eosinophil Rel % 2.2 0.0 - 3.0 % [facility] Basophil Rel % 0.5 0.0 - 1.0 % [facility] Neutrophils Absolute 5.01 1.50 - 8.30 10*3/mm3 [facility] Lymphocytes Absolute 2.26 0.60 - 4.80 10*3/mm3 [facility] Monocytes Absolute 0.64 0.00 - 1.00 10*3/mm3 [facility] Eosinophils Absolute 0.18 0.10 - 0.30 10*3/mm3 [facility] Basophils Absolute 0.04 0.00 - 0.20 10*3/mm3 [facility] Immature Granulocyte Rel % 0.2 0.0 - 0.6 % [facility] Immature Grans Absolute 0.02 0.00 - 0.03 10*3/mm3 [facility] Blood specimen (specimen) 12/14/2015 1:47 PM EDT 12/14/2015 3:49 PM EDT Narrative [facility] ([facility]) - 12/14/2015 8:09 PM EDT Performed at: ??01 - [address] ??[id number] Body Work Auto Trimmer: Concetta Juan MD, Phone: ??[phone] us Tani Patterson MD LAB BLOOD ORDERABLES Final Resu lt [facility] ([facility]) [address] [place] [address], [facility] [address] [place] [address], * (ABNORMAL) Comprehensive metabolic panel (12/14/2015 1:47 PM EDT) Glucose 111(H) 70 - 100 mg/dL [facility] BUN 13 9 - 23 mg/dL [facility] Creatinine 1.10 0.60 - 1.30 mg/dL [facility] eGFR Non Am 70 >60 mL/min/1.7 3 [facility] eGFR Am 85 >60 mL/min/1.7 3 [facility] BUN/Creatinine Ratio 11.8 7.0 - 25.0 [facility] Sodium 144 132 - 146 mmol/L [facility] Potassium 4.4 3.5 - 5.5 mmol/L [facility] Chloride 105 99 - 109 mmol/L [facility] Total CO2 32.0(H) 20.0 - 31.0 mmol/L [facility] Calcium 9.6 8.7 - 10.4 mg/dL [facility] Total Protein 6.9 5.7 - 8.2 g/dL [facility] Albumin 4.30 3.20 - 4.80 g/dL [facility] Globulin 2.6 gm/dL [facility] A/G Ratio 1.7 g/dL [facility] Total Bilirubin 0.9 0.3 - 1.2 mg/dL [facility] Alkaline Phosphatase 98 25 - 100 U/L [facility] AST (SGOT) 20 0 - 33 U/L [facility] ALT (SGPT) 17 7 - 40 U/L [facility] Blood specimen (specimen) 12/14/2015 1:47 PM EDT 12/14/2015 3:49 PM EDT Narrative [facility] ([facility]) - 12/14/2015 8:09 PM EDT Performed at: ??[address] ??[id number] Body Work Auto Trimmer: Concetta Juan MD, Phone: ??[phone] Tani Patterson MD LAB BLOOD ORDERABLES Final Resu lt Performing Organization Address [facility] Phone Number [facility] ([facility]) [address] [place] [address], [place] [phone] [facility] [address] [place] [address], [place] [phone] * (ABNORMAL) Hemoglobin A1c (12/14/2015 1:47 PM EDT) Hemoglobin A1C 6.40(H) 4.00 - 6.00 % [facility] Blood specimen (specimen) 12/14/2015 1:47 PM EDT 12/14/2015 3:49 PM EDT Narrative [facility] ([facility]) - 12/14/2015 8:09 PM EDT Performed at: ?? [address] ??[id number] Body Work Auto Trimmer: Concetta Juan MD, Phone: ??[phone] us Tani Patterson MD LAB BLOOD ORDERABLES Final Resu lt Performing Organization Address [facility] Co de Phone Number [facility] ([facility]) [address] [place] [address], [place] [phone] [facility] [address] [place] [address], * XR knee 3 vw right (12/14/2015 11:25 AM EDT) Anatomical Region Laterality Modality Lower Extremities, Knee Right Radiogra phic Imaging 12/14/2015 12:4 1 PM EDT Impressions 12/14/2015 1:32 PM EDT No acute bony abnormality identified. D: ??12/14/2015 E: ??12/14/2015 This report was finalized on 12/14/2015 1:[address] Maria A Birch MD. Narrative 12/14/2015 1:32 PM EDT EXAMINATION: XR KNEE 3 VW RIGHT- 12/14/2015 INDICATION: M25.561-Pain in right knee COMPARISON: NONE FINDINGS: 3 views of the right knee reveal spurring of the patella. Minimal peaking of the intercondylar tibial spine. Joint spaces are preserved. Cortex is intact. No fracture or dislocation. ? Procedure Note Maria A Birch MD - 12/14/2015 EXAMINATION: XR KNEE 3 VW RIGHT- 12/14/2015 INDICATION: M25.561-Pain in right knee COMPARISON: NONE FINDINGS: 3 views of the right knee reveal spurring of the patella. Minimal peaking of the intercondylar tibial spine. Joint spaces are preserved. Cortex is intact. No fracture or dislocation. IMPRESSION: No acute bony abnormality identified. E: 12/14/2015 This report was finalized on 12/14/2015 1:[address] Maria A Birch MD. Tani Patterson MD IMG DIAGNOSTIC IMAGING ORDERABL ES Final Result documented in this encounter Visit Diagnoses Diagnosis Essential hypertension- Primary Unspecified essential hypertension Type 2 diabetes mellitus with diabetic neuropathy Knee pain, acute, right Hypercholesteremia Pure hypercholesterolemia Knee pain, acute, right documented in this encounter Care Teams Shellfish Grower Relationship Specialty Start Date End Date Lacey Welsh APRN [address] [place] [address] PCP - General 09/20/15 10/15/17 documented as of this encounter
--- OUTSIDE RECORDS SUMMARY | 2024-05-14 13:53 | XMS_ITS | Encounter Summary ---
[facility] Address [address] [place] [address] Care Team Providers Care Park Superintendent Name Role Phone Lacey Welsh APRN Primary Care Provider [phone] Reason for Visit * Reason Comments Back Pain Neck Pain Encounter Details Date Type Department Care Team (Late st Contact Info) Description 10/08/2015 4:00 PM EDT Office Visit [facility] [address] [place] [address] Tani Patterson MD [address] [place] [address] Bilateral low back pain without sciatica (Primary Dx); Neck pain Social History Tobacco Use Types Packs/Day Years [...] as of this encounter Progress Notes * Tani Patterson MD - 10/08/2015 5:03 PM EDT Subjective Seamus Persaud is a 54 y.o. male. Back Pain Neck Pain Initial note somehow not saved as there were extensive issues with his note Pt with long history of ongoing neck and back pain No known injury that he is aware of He has seen Dr. Dickerson and has been to PT OTC medications have not helped He was referred to pain clinic on 09/22/15 but he did not mention this to me The following portions of the patient's history were reviewed and updated as appropriate: allergies, current medications, past family history, past medical history, past social history, past surgicalhistory and problem list. Review of Systems Musculoskeletal: Positive for back pain and neck pain. Objective Physical Exam Constitutional: He appears well-developed and well-nourished. Neck: Normal range of motion. Neck supple. Cardiovascular: Normal rate, regular rhythm and normal heart sounds. Pulmonary/Chest: Effort normal and breath sounds normal. Musculoskeletal: Normal range of motion. He exhibits no tenderness (unremarkable exam, pt able to lay back and get off of table without any issues. no TTP along his spine, decent range of motion of his spine and no neck pain with normnal turning of his head during conversation as I moved around theroom). Lymphadenopathy: He has no cervical adenopathy. Psychiatric: He has a normal mood and affect. His behavior is normal. Nursing note and vitals reviewed. Assessment/Plan Seamus was seen today for back pain and neck pain. Diagnoses and all orders for this visit: Bilateral low back pain without sciatica Neck pain will set up with pain clinic, pt told we do not give chronic pain meds lodine [address] Bradford notes as we do not have any of these documented in this encounter Plan of Treatment Not on file documented as of this encounter Visit Diagnoses Diagnosis Bilateral low back pain without sciatica- Primary Neck pain Cervicalgia documented in this encounter Care Teams Park Superintendent Relationship Specialty Start Date End Date Lacey Welsh, ELECTRO WINNING OPERATOR [address] [place] [address] PCP - General 09/20/15 10/15/17 documented as of this encounter
--- OUTSIDE RECORDS SUMMARY | 2024-05-14 13:53 | XMS_ITS | Encounter Summary ---
Author Organization [facility] Address [address] [id number] Care Team Providers Care Composition Floor Layer Name Role Phone Hilton Maria MD Unavailable Philip Khan MD Primary Care Provider + [phone] Reason for Visit * Consultation (Routine) - Closed Specialty Diagnoses / Procedures Referred By Fran davis Referred To Contact Neurosurgery Diagnoses Low back pain, unspecified None, None [address] [place] [address] fax: [facility] [address], [address] [place] [address] Phone: tel: fax: Referral ID Status Reason Start Date Expiration Date V isits Requested Visits Authorized [id number] Closed Specialty Services Required 01/09/2023 07/10/2024 1 1 Encounter Details Date Type Department Care Team (Late st Contact Info) Description 02/25/2023 10:00 AM EDT Consult [facility] [address] [place] [address] Ju Galo, LOG TUMBLER [address] [place] [address] DDD (degenerative disc disease), lumbar (Primary Dx); Low back pain, unspecified Social History Tobacco Use Types Packs/Day Years Used Date Smoking Tobacco: Former Cigarettes 1.5 30 1 2018 Passive Smoke Exposure: Past Smokeless Tobacco: Never Alcohol Use Standard Drinks/Week Comments Yes 0 (1 standard drink = 0.6 oz pur e alcohol) very rarely social. Sex and Gender Information Value Date Recorded Sex Assigned at Not on file Legal Sex Male 8:08 PM EDT Gender Identity Not on file Sexual Orientation Not on file documented as of this encounter Last Filed Vital Signs Vital Sign Reading Time Taken Comments Blood Pressure 105/63 02/25/2023 10:24 AM EDT Pulse 57 02/25/2023 10:24 AM EDT Temperature - - Respiratory Rate - - Oxygen Saturation 98% 02/25/2023 10:24 AM EDT Inhaled Oxygen Concentration - - Weight 108 kg (239 lb) 02/25/2023 10:24 AM EDT Height 165.1 cm (5' 5 ) 02/25/2023 10:24 AM EDT Body Mass Index 39.77 02/25/2023 10:24 AM EDT documented in this encounter Miscellaneous Notes * Progress Notes - Ju Galo, LOG TUMBLER - 02/25/2023 10:00 AM EDT We had the pleasure of seeing your patient in our clinic today for continued Neurosurgical evaluation. Chief Complaint Low back pain History Of Present Illness Seamus Persaud is a 62 y.o. male presents to the neurosurgical clinic today for consultation regarding low back pain. The patient is known to our clinic for his cervical complaints but states he is began to have low back pain for the last year. States the pain goes into the left lower extremity from the buttock to the posterior aspect of the leg to the foot. Denies any right lower extremitysymptoms. He also complains of numbness and tingling in the same pattern. Back pain is worse than leg pain. Pain is worse with walking, sweeping, or mopping. Pain does get slightly better with sitting down. Does note some subjective weakness in the left lower extremity. Denies any bowel or bladder i ncontinence or saddle anesthesia. The patient has done physical therapy and states that it seemed to make the pain worse. Also in a pain clinic and states they have done injections without benefit before. Patient currently takes gabapentin and oxycodone and has been on these medications for quite some time. Past Medical History He has a past medical history of Conversions - Other, Conversions - Other, Conversions - Other, Conversions - Other, Conversions - Other, Conversions - Other, Conversions - Other, Conversions - Other, Conversions - Other, COPD (chronic obstructive pulmonary disease) (CMS/HCC), Diabetes mellitus (CMS/HCC), Gastro-esophageal reflux disease without esophagitis, Hyperlipidemia, Hypertension, Neck pain, Old myocardial infarction (2018), Other nonspecific abnormal finding of lung field, Other specified symptoms and signs involving the circulatory and respiratory systems, Personal history of malignant neoplasm, unspecified, Personal history of other diseases of the digestive system, Personal history of other diseases of the respiratory system, Personal history of other diseases of urinary system, Personal history of other diseases of urinary system, Personal history of other endocrine, nutritional and metabolic disease, Personal history of pneumonia (recurrent), Sleep apnea, Stroke (CMS/HCC), and Unspecified abdominal pain. He has no past medical history of Asthma or Malignant hyperthermia. 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 He has a past surgical history that includes Cholecystectomy (N/A); Knee surgery (N/A); Shoulder surgery (N/A); Other surgical history (N/A); Other surgical history (N/A); Other surgical history (N/A); and Gallbladder surgery. Family History Family History Problem Relation Name Age of Onset Heart attack Mother Diabetes Father Cancer Sister Cancer Sister Diabetes Brother Cancer Other Conversions - Other Other Chronic pain Conversions - Other Other Coronary arteriosclerosis Diabetes Other Cardiac disorder Other Stroke Other Depression Other Hypertension Other Lung disease Other Kidney failure Other Malig Hyperthermia Neg Hx Anesthesia problems Neg Hx Social History He reports that he quit smoking about 4 years ago. His smoking use included cigarettes. He has a 45.00 pack-year smoking history. He has been exposed to tobacco smoke. He has never used smokeless tobacco. He reports current alcohol use. He reports current drug use. Drug: Marijuana. Medications Current Outpatient Medications Medication Sig Dispense Refill albuterol 108 (90 Base) MCG/ACT inhaler Inhale 2 puffs if needed. atorvastatin (Lipitor) 20 MG tablet 1 (one) time each day at the same time. B-D ULTRAFINE III SHORT PEN 31G X 8 MM misc benzonatate (Tessalon) 100 MG capsule clopidogrel (Plavix) 75 MG tablet Take 75 mg by mouth 1 (one) time each day at the same time. ergocalciferol (Vitamin D-2) 1.25 MG (51196 UT) capsule Take 50,000 Units by mouth 1 (one) time perweek. famotidine (Pepcid) 20 MG tablet gabapentin (Neurontin) 800 MG tablet Take 800 mg by mouth 3 (three) times a day. isosorbide mononitrate ER (Imdur) 30 MG 24 hr tablet Take 30 mg by mouth 1 (one) time each day. Do not crush or chew. Januvia 100 MG tablet Jardiance 25 MG Take 25 mg by mouth 1 (one) time each day. lidocaine (Lidoderm) 5 % patch lisinopril 5 MG tablet 1 (one) time each day at the same time. metoprolol tartrate (Lopressor) 25 MG tablet Take 25 mg by mouth every 12 (twelve) hours. OneTouch Ultra test strip oxyCODONE (Roxicodone) 10 MG immediate release tablet oxyCODONE-acetaminophen (Percocet) 10-325 MG tablet Take 1 tablet by mouth if needed. pantoprazole (ProtoNix) 20 MG EC tablet ranolazine (Ranexa) 1000 MG 12 hr tablet Take 1,000 mg by mouth 2 (two) times a day. rosuvastatin (Crestor) 40 MG tablet Spiriva HandiHaler [address] 1 capsule into inhaler and inhale 1 (one) time each day. spironolactone (Aldactone) 50 MG tablet Take 50 mg by mouth 1 (one) time each day. torsemide (Demadex) 100 MG tablet Take 50 mg by mouth 1 (one) time each day. No current facility-administered medications for this visit. Allergies Naproxen and Tramadol Review of Systems 14 point review of systems was performed and was negative except as noted per HPI. Physical Exam Neurologic exam: Alert and oriented x3. Appropriate memory, attention span, and insight. Normal coordination noted. Strength 5/5 bilaterally in upper and lower extremities. No tremor noted. Biceps, triceps, brachioradialis, patellar, achilles reflexes symmetric and 2+ bilaterally. Sensation, including light touch, intact on the right lower extremity, decreased sensation on left lower extremity. Negative Ford's bilaterally. No clonus noted bilaterally. Negative straight leg raise test bilaterally. Negative Tate's test bilaterally. Last Recorded Vitals Visit Vitals BP 105/63 Pulse 57 Ht 1.651 m (5' 5 ) Wt 108 kg (239 lb) SpO2 98% BMI 39.77 kg/m?? Smoking Status Former BSA 2.23 m?? Labs No lab exists for component: ALB Imaging I personally reviewed and independently interpreted MRI of the lumbar spine from January 22, 2023. At L3-4, there is some right-sided neuroforaminal stenosis; however, imaging is suboptimal due to motion artifact. There does appear to be a cyst at L5-S1 seen on the sagittal images however the neuroforamen appear to be open on this side. There is also diffuse facet arthropathy noted lumbar spine. Assessment and Plan Seamus Persaud is a 62 y.o. male presents to the neurosurgical clinic today for consultation regarding low back pain. Imaging was reviewed in his noted above. At this time, I do not believe thepatient has pathology amenable to neurosurgical intervention. Should follow-up with his interventional pain clinic for possible facet injections. The patient verbalized understanding and is agreeableto this plan of care. The patient was given the opportunity to ask questions all of which were answered to their satisfaction and is agreeable to the plan of care. No further neurosurgical consultation is needed at this time, patient can be seen on an as needed basis. This note was dictated using voice to text software and may contain minor errors Nati Galo APRN Division of Neurosurgery [facility] documented in this encounter Plan of Treatment Upcoming Encounters Date Type Department Care Team (Late st Contact Info) Description 11/04/2024 9:40 AM EDT Office Visit [facility] [address] [place] [address] Christine Deng APRN [address] [address] documented as of this encounter Visit Diagnoses Diagnosis DDD (degenerative disc disease), lumbar- Primary Degeneration of lumbar or lumbosacral intervertebral disc Low back pain, unspecified documented in this encounter Additional Health Concerns Assessment Noted Time A fall risk assessment has been complete d for the patient 04/01/2022 9:09 AM EDT A Body Mass Index follow-up plan has been documented for the patient 02/25/2023 1:16 PM EDT documented as of this encounter Care Teams Composition Floor Layer Relationship Specialty Start Date End Date Philip Khan MD [address] [place] [address] PCP - General Internal Medicine 04/01/22 Hilton Maria MD [address] [facility] [address] [place] [address] Surgeon Neurosurgery 04/01/22 documented as of this encounter
--- OUTSIDE RECORDS SUMMARY | 2024-05-14 13:53 | XMS_ITS | Encounter Summary ---
Author Organization [facility] Address [address] [place] [address] Care Team Providers Care Waiter/Waitress Second Class Name Role Phone Lacey Welsh APRN Primary Care Provider [phone] Encounter Details Date Type Department Care Team (Late st Contact Info) Description 01/18/2016 Telephone [facility] [address] [place] [address] Tani Mishra MD [address] [place] [address] Social History Tobacco Use Types Packs/Day Years [...] encounter Miscellaneous Notes * Telephone Encounter - Tawnya Rahman LPN - 01/21/2016 10:39 AM EDT Spoke with pt he has appt with ortho on 01/23 * Telephone Encounter - Tani Mishra MD - 01/21/2016 10:17 AM EDT Looks like pt was contacted about these results on 01/04/16. Spoke with pt's at that time. Recommended ortho follow up if pain persisted. * Telephone Encounter - Tawnya Rahman LPN - 01/21/2016 8:10 AM EDT It is under imaging date 12/16 * Telephone Encounter - Tani Mishra MD - 01/18/2016 5:06 PM EDT i will need to see the MRI, I can find several places in the chart where it was ordered but I cannot find the results. Can we get the results and then I can give him better advice. thanks * Telephone Encounter - Sailaja Nettles MA - 01/18/2016 4:38 PM EDT ----- Message from Vidhi Hathaway sent at 01/18/2016 4:26 PM EDT ----- Contact: DR MISHRA MEDICAL QUESTION PATIENT SAID HE JUST HAD AN MRI ON HIS KNEE AND WAS TOLD THERE WAS NOTHING WRONG WITH IT BUT IT IS EXTREMELY SWOLLEN. WHAT SHOULD HE DO? HIS PHARM[facility] IS [facility] IN [place]. [phone] * Telephone Encounter - Tani Mishra MD - 01/18/2016 2:54 PM EDT What is up with MRI that was ordered 12/17/15? Did insurance deny it or what? Not sure what is goingon with it * Telephone Encounter - Tawnya Rahman LPN - 01/18/2016 2:19 PM EDT ----- Message from Jennyfer Rojas sent at 01/18/2016 2:15 PM EDT ----- Contact: TAD PATIENT SAID THAT HIS KNEE IS STILL BOTHERING HIM, STILL SWELLING UP. HE WANTS TO KNOW WHAT IS WRONG . documented in this encounter Plan of Treatment Not on file documented as of this encounter Visit Diagnoses Not on filedocumented in this encounter Care Teams Waiter/Waitress Second Class Relationship Specialty Start Date End Date Lacey Welsh, PRICILA [address] [place] [address] PCP - General 09/20/15 10/15/17 documented as of this encounter
--- OUTSIDE RECORDS SUMMARY | 2024-05-14 13:53 | XMS_ITS | Encounter Summary ---
Author Organization [facility] Address [address] [place] [address] Care Team Providers Care Vehicle Fuel Systems Converter Name Role Phone Hilton Maria MD Unavailable Philip Khan MD Primary Care Provider + [phone] Encounter Details Date Type Department Care Team (Latest Contact Info) Description 04/15/2024 Travel Social History Tobacco Use Types Packs/Day Years Used Date Smoking Tobacco: Former Cigarettes 1.5 2018 Passive Smoke Exposure: Past Smokeless Tobacco: Never Alcohol Use Standard Drinks/Week Comments Yes 0 (1 standard drink = 0.6 oz pur e alcohol) very rarely social. Sex and Gender Information Value Date Recorded Sex Assigned at Not on file Legal Sex Male 8:08 PM EDT Gender Identity Not on file Sexual Orientation Not on file documented as of this encounter Plan of Treatment Upcoming Encounters Date Type Department Care Team (Late st Contact Info) Description 11/04/2024 9:40 AM EDT Office Visit [facility] [address] [place] [address] Christine Deng, PRICILA [address] [address] documented as of this encounter Visit Diagnoses Not on filedocumented in this encounter Additional Health Concerns Assessment Noted Time A fall risk assessment has been complete d for the patient 04/01/2022 9:09 AM EDT A Body Mass Index follow-up plan has been documented for the patient 04/15/2024 1:06 PM EST documented as of this encounter Care Teams Vehicle Fuel Systems Converter Relationship Specialty Start Date End Date Philip Khan MD [address] [place] [address] PCP - General Internal Medicine 04/01/22 Hilton Maria MD [address] [place] [address] Surgeon Neurosurgery 04/01/22 documented as of this encounter
--- OUTSIDE RECORDS SUMMARY | 2024-05-14 13:53 | XMS_ITS | Encounter Summary ---
Author Organization [facility] Address [address] [place] [address] Care Team Providers Care Job Coach Name Role Phone Hilton Maria MD Unavailable Philip Khan MD Primary Care Provider + [phone] Encounter Details Date Type Department Care Team (Latest Contact Info) Description 06/10/2022 Travel Social History Tobacco Use Types Packs/Day Years Used Date Smoking Tobacco: Former Cigarettes 1.5 2018 Smokeless Tobacco: Never Alcohol Use Standard Drinks/Week Comments Yes 0 (1 standard drink = 0.6 oz pur e alcohol) very rarely social. Sex and Gender Information Value Date Recorded Sex Assigned at Not on file Legal Sex Male 8:08 PM EDT Gender Identity Not on file Sexual Orientation Not on file COVID-19 Exposure Response Date Recorded In the last 10 days, have yo u been in contact with someone who was confirmed or suspected to have Coronavirus/COVID-19? No / Unsure 06/10/2022 2:47 PM EST documented as of this encounter Plan of Treatment Upcoming Encounters Date Type Department Care Team (Late st Contact Info) Description 11/04/2024 9:40 AM EDT Office Visit [facility] [address] [place] [id number] Christine Deng, CORN MILLER [address] [address] documented as of this encounter Visit Diagnoses Not on filedocumented in this encounter Additional Health Concerns Assessment Noted Time A fall risk assessment has been complete d for the patient 04/01/2022 9:09 AM EDT documented as of this encounter Care Teams Job Coach Relationship Specialty Start Date End Date Philip Khan MD [address] [place] [address] PCP - General Internal Medicine 04/01/22 Hilton Maria MD [address] [facility] [address] [place] [address] Surgeon Neurosurgery 04/01/22 documented as of this encounter
--- OUTSIDE RECORDS SUMMARY | 2024-05-14 13:53 | XMS_ITS | Encounter Summary ---
[facility] Address [address] [place] [address] Care Team Providers Care Avaya Engineer Name Role Phone Lacey Welsh APRN Primary Care Provider [phone] Encounter Details Date Type Department Care Team (Late st Contact Info) Description 10/25/2015 Telephone [facility] [address] [place] [address] Sailaja Nettles MA Social History Tobacco Use Types Packs/Day [...] Telephone Encounter - Tawnya Rahman LPN - 10/26/2015 10:40 AM EDT Spoke with pt he is aware * Telephone Encounter - Tani Patterson MD - 10/26/2015 8:16 AM EDT At this point, he will have to wait for pain clinic. He has been told this the last 2 visits. * Telephone Encounter - Sailaja Nettles MA - 10/25/2015 1:40 PM EDT ----- Message from Jennyfer Rojas sent at 10/25/2015 1:25 PM EDT ----- Contact: TAD PATIENT SAID HIS BACK WAS HURTING REALLY BAD, AND WANTED TO KNOW IF YOU COULD GIVE HIM SOMETHING ELSE FOR PAIN. MUSCLE RELAXERS ARE NOT HELPING. documented in this encounter Plan of Treatment Not on file documented as of this encounter Visit Diagnoses Not on filedocumented in this encounter Care Teams Avaya Engineer Relationship Specialty Start Date End Date Lacey Welsh, PRICILA [address] [place] [address] PCP - General 09/20/15 10/15/17 documented as of this encounter
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
--- OUTSIDE RECORDS SUMMARY | 2024-05-14 13:53 | XMS_ITS | Encounter Summary ---
Author Organization [facility] Address [address] [place] [address] Care Team Providers Care General Hardware Salesperson Name Role Phone Hilton Maria MD Unavailable Philip Khan MD Primary Care Provider + [phone] Encounter Details Date Type Department Care Team (Latest Contact Info) Description 02/25/2023 Travel Social History Tobacco Use Types Packs/Day [...] Description 11/04/2024 9:40 AM EDT Office Visit [facility] [address] [place] [phone] Christine Deng, PRICILA [address] [address] documented as of this encounter Visit Diagnoses Not on filedocumented in this encounter Additional Health Concerns Assessment Noted Time A fall risk assessment has been complete d for the patient 04/01/2022 9:09 AM EDT A Body Mass Index follow-up plan has been documented for the patient 02/25/2023 1:16 PM EDT documented as of this encounter Care Teams General Hardware Salesperson Relationship Specialty Start Date End Date Philip Khan MD [address] [place] [address] PCP - General Internal Medicine 04/01/22 Hilton Maria MD [address] [place] [address] Surgeon Neurosurgery 04/01/22 documented as of this encounter
--- OUTSIDE RECORDS SUMMARY | 2024-05-14 13:53 | XMS_ITS | Clinical Summary ---
Author Organization [facility] Address [address] [place] [address] Care Team Providers Care Health Informatics Specialist Name Role Phone Hilton Maria MD Unavailable Philip Khan MD Primary Care Provider + [phone] Allergies Active Allergy Reactions Criticality Noted Date Comments Naproxen Hives,Other - please document in the comment field,Unknown - Patient states they do not know rxn details Medium 09/16/2015 Other reaction(s): hives Tramadol Hives,Other - please document in the comment field,Nausea,Unknown - Patient states they do not know rxn details Medium 09/16/2015 Other reaction(s): hives Medications albuterol 108 (90 Base) MCG/ACT inhaler Inhale 2 puffs if needed. 03/27/2017 Active atorvastatin (Lipitor) 20 MG tablet 1 (one) time each day at the same time. 09/12/2021 Active clopidogrel (Plavix) 75 MG tablet Take 1 tablet (75 mg) by mouth 1 (one) time each day at the same time. 07/17/2016 Active Jardiance 25 MG Take 1 tablet (25 mg) by mouth 1 (one) time each day. 03/05/2022 Active ergocalciferol (Vitamin D-2) 1.25 MG (12837 UT) capsule Take 1 capsule (50,000 Units) by mouth 1 (one) time per week. 11/22/2018 Active gabapentin (Neurontin) 800 MG tablet Take 1 tablet (800 mg) by mouth 3 (three) times a day. 02/23/2018 Active OneTouch Ultra test strip 03/07/2022 Active lisinopril 5 MG tablet 1 (one) time each day at the same time. 09/12/2021 Active metoprolol tartrate (Lopressor) 25 MG tablet Take 1 tablet (25 mg) by mouth every 12 (twelve) hours. 09/12/2021 Active ranolazine (Ranexa) 1000 MG 12 hr tablet Take 1,000 mg by mouth 2 (two) times a day. 03/05/2022 Active spironolactone (Aldactone) 50 MG tablet Take 1 tablet (50 mg) by mouth 1 (one) time each day. 03/05/2022 Active Spiriva HandiHaler [address] 1 capsule (18 mcg) into inhaler and inhale 1 (one) time each day. 02/27/2022 Active torsemide (Demadex) 100 MG tablet Take 0.5 tablets (50 mg) by mouth 1 (one) time each day. 03/05/2022 Active oxyCODONE-acetam inophen (Percocet) 10-325 MG tablet Take 1 tablet by mouth if needed. 04/02/2022 Active isosorbide mononitrate ER (Imdur) 30 MG 24 hr tablet Take 1 tablet (30 mg) by mouth 1 (one) time each day. Do not crush or chew. Active famotidine (Pepcid) 20 MG tablet 05/14/2022 Active B-D ULTRAFINE III SHORT PEN 31G X 8 MM misc 05/14/2022 Act garrick Januvia 100 MG tablet 02/17/2023 Active rosuvastatin (Crestor) 40 MG tablet 02/23/2023 Active pantoprazole (ProtoNix) 20 MG EC tablet 02/02/2023 Active oxyCODONE (Roxicodone) 10 MG immediate release tablet 02/04/2023 Acti ve lidocaine (Lidoderm) 5 % patch 10/13/2022 Active benzonatate (Tessalon) 100 MG capsule 06/11/2022 Active Active Problems Problem Noted Date Diagnosed Date Cervical disc disorder at C5-C6 level with radic ulopathy 04/01/2022 Overview (04/01/2022): Added automatically from request for surgery [id number] Encounters Date Type Department Care Team Description 04/15/2024 12:00 PM EST Office Visit [facility] [place] [phone] Christine Deng APRN Stage 3b chronic kidney disease (CMS/HCC) (Primary Dx); Urinary tract infection without hematuria, site unspecified; Diabetes mellitus due to underlying condition with diabetic chronic kidney disease, unspecified CKD stage, unspecified whether residential insulin use ([facility]/HCC); Essential hypertension 04/15/2024 Travel 04/14/2024 Travel 03/09/2024 Orders Only [facility] [address] [place] [address] Shoshana Sandoval Stage 3a chronic kidney disease (CMS/HCC) (Primary Dx); Vitamin D insufficiency 02/16/2024 Community Orders Community Practice [address] [place] [phone] Kyler Holloway MD Stage 3b chronic kidney disease (CMS/HCC) (Primary Dx) from Last 3 Months Immunizations Name Administration Dates Next Due Influenza, seasonal, injectable, preservative fr ee 04/19/2018 TD (adult), 2 Lf tetanus tox oid, preservative free, adsorbed 08/08/1996 Family History Medical History Relation Name Comments Diabetes Brother Diabetes Father Heart attack Mother Cancer Other 1 Conversions - Other Other 2 Chronic pain Conversions - Other Other 3 Coronary arteriosclerosis Diabetes Other 4 Cardiac disorder Other 5 Stroke Other 6 Depression Other 7 Hypertension Other 8 Lung disease Other 9 Kidney failure Other 10 Cancer Sister 1 Cancer Sister 2 Anesthesia problems Neg Hx Malig Hyperthermia Neg Hx Relation Name Status Comments Brother Father Mother Other 1 Other 2 Other 3 Other 4 Other 5 Other 6 Other 7 Other 8 Other 9 Other 10 Sister 1 Sister 2 Social History Tobacco Use Types Packs/Day Years Used Date Smoking Tobacco: Former Cigarettes 1.5 30 1 - 2018 Passive Smoke Exposure: Past Smokeless Tobacco: Never Tobacco Cessation:Counseling Given: Not [...] Sign Reading Time Taken Comments Blood Pressure 98/71 04/15/2024 12:06 PM EST Pulse 89 04/15/2024 12:06 PM EST Temperature 35.6 ??C (96.1 ??F) 04/23/2022 3:07 PM ES T Respiratory Rate 18 04/15/2024 12:06 PM EST Oxygen Saturation 100% 04/15/2024 12:06 PM EST Inhaled Oxygen Concentration - - Weight 106 kg (232 lb 9.6 oz) 04/15/2024 12:06 P M EST Height 165.1 cm (5' 5 ) 04/15/2024 12:06 PM EST Body Mass Index 38.71 04/15/2024 12:06 PM EST Plan of Treatment Upcoming Encounters Date Type Department Care Team (Late st Contact Info) Description 11/04/2024 9:40 AM EDT Office Visit [facility] [address] [place] [address] Christine Deng, AIRPLANE TECHNICIAN [address] [address] Health Maintenance Due Date Last Done Comments Dental Oral Exam 1962 Dental Prophylaxis 1962 Dental X-Ray: Bitewings 1962 Dental X-Ray: Full Mouth 1962 [facility]-Depression Screening 1962 [facility]-HIV Screening 1962 [facility]-/Child/Adol SDOH Screenings 1962 [facility]-Pneumococcal Vaccine: Pediatrics (0 to 5 Years) and At-Risk Patients (6 to 64 Years) (1 of 2 - PCV) 1968 Diabetes: Dental Exam 1972 [facility]- SDOH Screenings 1980 [facility]-Adult SDOH Screenings 1980 [facility]-DTaP,Tdap,and Td Vaccines (1 - Tdap) 08/09/1996 08/08/1996 CT Colonography 12/21/2007 Colonoscopy 12/21/2007 FIT-DNA 12/21/2007 FIT 12/21/2007 FOBT 12/21/2007 Sigmoidoscopy 12/21/2007 [facility]-Colorectal Cancer Screening 12/21/2007 [facility]-Zoster Vaccines (1 of 2) 2012 [facility]-Lung Cancer Screening 10/26/2020 10/27/2019 [facility]-Diabetes: Hemoglobin A1C 09/29/2022, 12/04/2016, 05/23/2016 [facility]-RSV Vaccine: 60+ Years or (1 - Risk 60-74 years 1-dose series) 2022 [id number] Vaccine (3 - 2023- season) 2024 09/19/2020, 08/22/2020 [facility]-Influenza Vaccine (#1) 2024 04/19/2018 [facility]-Hepatitis C Screening Completed 10/27/2019 [facility]-Obesity Intervention Completed 024, 02/25/2023, 06/10/2022, Additional history exists [facility]-HIB Vaccines Aged Out No longer e ligible based on patient's age to complete this topic [facility]-HPV Vaccines Aged Out No longer e ligible based on patient's age to complete this topic [facility]-Hepatitis A Vaccines Aged Out No longer eligible based on patient's age to complete this topic [facility]-IPV Vaccines Aged Out No longer e ligible based on patient's age to complete this topic [facility]-Rotavirus Vaccines Aged Out No lo nger eligible based on patient's age to complete this topic Procedures Procedure Name Priority Date/Time Associated Diagnosis Comments HEMOGLOBIN A1C Routine 04/01/2022 11:28 AM EDT Neck pain Cervical disc disorder at C5-C6 level with radiculopathy CT ANGIO PULMONARY EMBOLISM Routine 10/27/2019 2:46 PM EDT HEPATITIS C ANTIBODY - ED W/REFLEX TO HCV QUANT PCR Routine 10/27/2019 1:10 PM EDT from Last 3 Months or Most Recently Relevant to Health Maintenance Results * (ABNORMAL) Hemoglobin A1c (04/01/2022 11:28 AM EDT) Hemoglobin A1c 6.9(H) <5.7 % 04/01/2022 2:45 PM EDT [facility] Blood Venous blood specimen / Unknown Venipuncture / Unknown 04/01/2022 11:28 AM EDT 04/01/2022 11:29 AM EDT Narrative [facility] - 04/01/2022 2:45 PM EDT HA1C Interpretive Data: Diagnosis of Diabetes: Diabetic > or = 6.5% Pre-diabetic 5.7 to 6.4% Non-diabetic < or = 5.6% Glycemic Targets for Type I and Type II Diabetics: Non- Adults <7.0% Adults <6.0% Children and Adolescents <7.5% Source: ??[place] Diabetes Association. Standards of medical care in diabetes,2017. Diabetes Care.2017:40 (suppl 1):S1-S135. HbA1c assay performed by an ion-exchange chromatography method that is certified traceable to the DCCT. Hilton Maria MD LAB BLOOD ORDERA BLES Final Result [facility] [address] [place] [address] * CT Angio Pulmonary Embolism (10/27/2019 2:46 PM EDT) Anatomical Region Laterality Modality Chest Computed Tomogra phy Narrative 10/27/2019 3:19 PM EDT REQUESTING PHYSICIAN: BIGG FLORES REASON FOR EXAMINATION/PROCEDURE: RAD PDP:Y ??* ??left lateral chest pain, hx of lung cancer LLL EXAMINATION / PROCEDURE: CT Pulmonary Embolism Oct 27 2019 - 14:46; ? CLINICAL INDICATION: left lateral chest pain, hx of lung cancer LLL TECHNIQUE: Imaging of the chest was performed from thoracic inlet through upper abdomen, using spiral technique, following administration of IV contrast, Omnipaque 350, 100 mL per the pulmonary angiogram prot ocol. In addition, 3D images were created and reviewed. TOTAL DLP (Dose-Length Product): 338.89 mGy.cm. Please note: The reported value represents the total of one or more individual components during the CT acquisition on this date and at th is time, and as such, the same value may appear in more than one CT report depending on the interpreting/reporting physicians. COMPARISON: PET CT February 16, 2019 FINDINGS: Pulmonary Arteries/Vessels: No pulmonary embolism. Right He art Strain: No evidence of right heart strain. Pleural/Pericardial space: No pneumothorax. ??No pleural effusions. ??No pericardial effusion. Lymph Nodes: The previously described AP window hever conglomerate are decreased in size to prior heather suring 2.5 cm (series 7 image 191) Lungs: There is linear soft tissue density extending along the left major fissure as previously described lesions there is a second site of focal soft tissue density just superior to this measuring 1 cm (serie s 5 image 66) and the slightly more superior lesion. Bilateral apical bulla. Mediastinum: Otherwise unremarkable. Chest wall: No chest wall hematoma or contusion. Bones: No acute fracture within the chest. Upper Abdomen: Prior cholecyste ctomy, otherwise the upper abdomen is unremarkable. ?? IMPRESSION: Linear soft tissue density in the region of prior pulmonary lesions may represent atelectasis and scarring from treatment response however underlying disease cannot be entire ly excluded. Recommend continued imaging follow-up. Hilar adenopathy and AP window lymph node conglomerate have decreased in size compared to prior. CRITICAL RESULT: ?? No. COMMUNICATION: Per this written report. By electronically s igning this report, I, the attending physician, attest that I have personally reviewed the images/data for the above examination(s) and agree with the final edited report. ?? Verified by: BIGG REYES M.D. on Oct 27 2019 ??3:17P Transcribed b y: PSCB on Oct 27 2019 ??2:50P Dictated by: FRANCES WEEMS M.D. on Oct 27 2019 ??2:50P Procedure Note Bigg Reyes Te-An - 10/02/2020 REQUESTING PHYSICIAN: BIGG FLORES REASON FOR EXAMINATION/PROCEDURE: RAD PDP:Y * left lateral chest pain, hx of lung cancer LLL EXAMINATION / PROCEDURE: CT Pulmonary Embolism Oct 27 2019 - 14:46; CLINICAL INDICATION: left lateral chest pain, hx of lung cancer LLL TECHNIQUE: Imaging of the chest was performed from thoracic inlet through upper abdomen, using spiral technique, following administration of IV contrast, Omnipaque 350, 100 mL per the pulmonary angiogram prot ocol. In addition, 3D images were created and reviewed. TOTAL DLP (Dose-Length Product): 338.89 mGy.cm. Please note: The reported value represents the total of one or more individual components during the CT acquisition on this date and at th is time, and as such, the same value may appear in more than one CT report depending on the interpreting/reporting physicians. COMPARISON: PET CT February 16, 2019 FINDINGS: Pulmonary Arteries/Vessels: No pulmonary embolism. Right He art Strain: No evidence of right heart strain. Pleural/Pericardial space: No pneumothorax. No pleural effusions. No pericardial effusion. Lymph Nodes: The previously described AP window hever conglomerate are decreased in size to prior heather suring 2.5 cm (series 7 image 191) Lungs: There is linear soft tissue density extending along the left major fissure as previously described lesions there is a second site of focal soft tissue density just superior to this measuring 1 cm (serie s 5 image 66) and the slightly more superior lesion. Bilateral apical bulla. Mediastinum: Otherwise unremarkable. Chest wall: No chest wall hematoma or contusion. Bones: No acute fracture within the chest. Upper Abdomen: Prior cholecyste ctomy, otherwise the upper abdomen is unremarkable. IMPRESSION: Linear soft tissue density in the region of prior pulmonary lesions may represent atelectasis and scarring from treatment response however underlying disease cannot be entire ly excluded. Recommend continued imaging follow-up. Hilar adenopathy and AP window lymph node conglomerate have decreased in size compared to prior. CRITICAL RESULT: No. COMMUNICATION: Per this written report. By electronically s igning this report, I, the attending physician, attest that I have personally reviewed the images/data for the above examination(s) and agree with the final edited report. Verified by: BIGG REYES M.D. on Oct 27 2019 3:17P Transcribed b y: PSCB on Oct 27 2019 2:50P Dictated by: FRANCES WEEMS M.D. on Oct 27 2019 2:50P Bigg Flores MD [facility] [place]ED[place] Final Result * [place] Hepatitis C Antibody (10/27/2019 1:10 PM EDT) [place] Hepatitis C Ab NEGATIVE Reference Range: Negative COVELQUEST 10/27/2019 1:10 PM EDT 10/27/2019 1:19 PM EDT us Bigg Flores MD LAB BLOOD ORDERABLES Final Resu lt SUNQUEST from Last 3 Months or Most Recently Relevant to Health Maintenance Insurance [facility] MEDICAID Care Teams Health Informatics Specialist Relationship Specialty Start Date End Date Philip Khan MD [address] [place] [address] PCP - General Internal Medicine 04/01/22 Hilton Maria MD [address] [place] [address] Surgeon Neurosurgery 04/01/22
--- OUTSIDE RECORDS SUMMARY | 2024-05-14 13:53 | XMS_ITS | Encounter Summary ---
Author Organization [facility] Address [address] [place] [address] Care Team Providers Care Informatics Consultant Name Role Phone Hilton Maria MD Unavailable Philip Khan MD Primary Care Provider + [phone] Encounter Details Date Type Department Care Team (Late st Contact Info) Description 09/12/2022 Orders Only [facility] [address] [place] [address] Shoshana Sandoval Stage 3a chronic kidney disease (CMS/HCC) (Primary Dx); Vitamin D deficiency Social History Tobacco Use Types Packs/Day Years Used Date Smoking Tobacco: Former Cigarettes 1.5 30 - 2018 Smokeless Tobacco: Never Alcohol Use Standard [...] Description 11/04/2024 9:40 AM EDT Office Visit [facility] [address] [place] [phone] Christine Deng, SALES AGENT [employer]ING [employer]ICE [address] [address] documented as of this encounter Visit Diagnoses Diagnosis Stage 3a chronic kidney disease (CMS/HCC)- Primary Vitamin D deficiency documented in this encounter Additional Health Concerns Assessment Noted Time A fall risk assessment has been complete d for the patient 04/01/2022 9:09 AM EDT documented as of this encounter Care Teams Informatics Consultant Relationship Specialty Start Date End Date Philip Khan MD [address] [place] [address] PCP - General Internal Medicine 04/01/22 Hilton Maria MD [address] [place] [address] Surgeon Neurosurgery 04/01/22 documented as of this encounter
--- OUTSIDE RECORDS SUMMARY | 2024-05-14 13:53 | XMS_ITS | Encounter Summary ---
Author Organization [facility] Address [address] [id number] Care Team Providers Care Ballast Inspector Name Role Phone Hilton Maria MD Unavailable Philip Khan MD Primary Care Provider + [phone] Reason for Referral * Consultation (Routine) - Closed Specialty Diagnoses / Procedures Referred By Contac t Referred To Contact Nephrology Diagnoses Stage 3b chronic kidney disease (CMS/HCC) Kyler Holloway MD [address] [facility] [address] [place] [address] Phone: tel: fax: Kirby Colin MD [address] [address] Phone: tel: fax: Referral ID Status Reason Start Date Expiration Date V isits Requested Visits Authorized [id number] Closed Specialty Services Required 02/16/2024 08/17/2025 1 1 Encounter Details Date Type Department Care Team (Late st Contact Info) Description 02/16/2024 Community [facility] [address] [place] [phone] Kyler Holloway MD [address] [facility] [address] [place] [address] Stage 3b chronic kidney disease (CMS/HCC) (Primary Dx) Social History Tobacco Use Types Packs/Day Years Used Date Smoking Tobacco: Former Cigarettes 1.5 30 2018 Passive Smoke Exposure: Past Smokeless Tobacco: [...] Description 11/04/2024 9:40 AM EDT Office Visit [facility] [address] [place] [phone] Christine Deng, TYPE PROOF REPRODUCER [address] [facility] [address] [place] [address] Scheduled Referrals Name Type Priority Associated Diagnoses Order Schedule Ambulatory referral to Nephrology Outpatient Referral Routine Stage 3b chronic kidney disease (CMS/HCC) Expected: 02/16/2024 (Approximate), Expires: 08/15/2025 documented as of this encounter Visit Diagnoses Diagnosis Stage 3b chronic kidney disease (CMS/HCC)- Primary documented in this encounter Additional Health Concerns Assessment Noted Time A fall risk assessment has been complete d for the patient 04/01/2022 9:09 AM EDT A Body Mass Index follow-up plan has been documented for the patient 02/25/2023 1:16 PM EDT documented as of this encounter Care Teams Ballast Inspector Relationship Specialty Start Date End Date Philip Khan MD [address] [place] [address] PCP - General Internal Medicine 04/01/22 Hilton Maria MD [address] [place] [address] Surgeon Neurosurgery 04/01/22 documented as of this encounter
--- OUTSIDE RECORDS SUMMARY | 2024-05-14 13:53 | XMS_ITS | Encounter Summary ---
Author Organization [facility] Address [address] [place] [address] Care Team Providers Care Stem Shaper Name Role Phone Hilton Maria MD Unavailable Philip Khan MD Primary Care Provider + [phone] Encounter Details Date Type Department Care Team (Latest Contact Info) Description 04/23/2022 Travel Social History Tobacco Use Types Packs/Day [...] Description 11/04/2024 9:40 AM EDT Office Visit [facility] [address] [place] [phone] Christine Deng, POWER PLANT MANAGER [address] [address] documented as of this encounter Visit Diagnoses Not on filedocumented in this encounter Additional Health Concerns Assessment Noted Time A fall risk assessment has been complete d for the patient 04/01/2022 9:09 AM EDT documented as of this encounter Care Teams Stem Shaper Relationship Specialty Start Date End Date Philip Khan MD [address] [place] [address] PCP - General Internal Medicine 04/01/22 Hilton Maria MD [address] [facility] [address] [place] [address] Surgeon Neurosurgery 04/01/22 documented as of this encounter
--- OUTSIDE RECORDS SUMMARY | 2024-05-14 13:53 | XMS_ITS | Encounter Summary ---
Author Organization [facility] Address [address] [place] [address] Care Team Providers Care Fixing Machine Operator Name Role Phone Lacey Welsh APRN Primary Care Provider Encounter Details Date Type Department Care Team (Late st Contact Info) Description 10/15/2015 Telephone [facility] [address] [place] [address] Tani Patterson MD [address] [place] [address] Social History Tobacco Use Types [...] Telephone Encounter - Tawnya Rahman LPN - 10/15/2015 4:01 PM EDT Pt aware rx called in per sepideh * Telephone Encounter - Shamar Juarez LPN - 10/15/2015 3:28 PM EDT LM for return call. * Telephone Encounter - Tani Patterson MD - 10/15/2015 2:01 PM EDT There is probably not anything that will get rid of all his pain. Will try daypro and he will have to wait for pain clinic for true relief as we will not be giving controlled substances from this office. * Telephone Encounter - Tawnya Rahman LPN - 10/15/2015 10:53 AM EDT ----- Message from Sepideh Matta sent at 10/15/2015 10:31 AM EDT ----- Contact: TAD PATIENT CALLING ABOUT MEDICATION, LODINE 400MG IT IS NOT WORKING FOR THE PATIENT. STATES STILL HAVETHE BACK PAIN, WANTS TO KNOW IF THERE IS SOMETHING ELSE HE CAN TRY [phone] CAN LEAVE A MESSAGE [facility] IN [facility] documented in this encounter Plan of Treatment Not on file documented as of this encounter Visit Diagnoses Not on filedocumented in this encounter Care Teams Fixing Machine Operator Relationship Specialty Start Date End Date Lacey Welsh APRN [address] [place] [address] PCP - General 09/20/15 10/15/17 documented as of this encounter
--- OUTSIDE RECORDS SUMMARY | 2024-05-14 13:53 | XMS_ITS | Encounter Summary ---
Author Organization Healthcare Address [address] [id number] Care Team Providers Care Lighting Specialist Name Role Phone Hilton Maria MD Unavailable Philip Khan MD Primary Care Provider + [phone] Encounter Details Date Type Department Care Team (Late st Contact Info) Description 03/09/2024 Orders Only [facility] [address] [place] [address] Shoshana Sandoval Stage 3a chronic kidney disease (CMS/HCC) (Primary Dx); Vitamin D insufficiency Social History Tobacco Use Types Packs/Day Years Used Date Smoking Tobacco: Former Cigarettes 1.5 30 1 989 - 2019 Passive Smoke Exposure: Past Smokeless Tobacco: Never Alcohol Use Standard Drinks/Week Comments Yes 0 (1 standard drink = 0.6 oz pur e alcohol) very rarely social. Sex and Gender Information Value Date Recorded Sex Assigned at Not on file Legal Sex Male 8:08 PM EDT Gender Identity Not on file Sexual Orientation Not on file documented as of this encounter Miscellaneous Notes * Addendum Note - Annabelle Ramirez - 03/09/2024 12:54 PM EDTAddended by: ANNABELLE RAMIREZ on: 04/15/2024 12:28 PM Modules accepted: Orders documented in this encounter Plan of Treatment Upcoming Encounters Date Type Department Care Team (Late st Contact Info) Description 11/04/2024 9:40 AM EDT Office Visit [facility] [address] [address] Christine Deng, ANIMAL CARE SERVICE WORKER [address] [address] Scheduled Orders Name Type Priority Associated Diagnoses Orde r Schedule Renal Function Panel, Plasma Lab Routine Stage 3a chronic kidney disease ([facility]/HCC) Expected: 03/09/2024 (Approximate), Expires: 09/07/2025 CBC W/O Differential Lab Routine Stage 3a chronic kidney disease ([facility]/HCC) Expected: 03/09/2024 (Approximate), Expires: 09/07/2025 PTH Intact Total Lab Routine Stage 3a chronic kidney disease ([facility]) Vitamin D insufficiency Expected: 03/09/2024 (Approximate), Expires: 09/07/2025 Vitamin D 25 Hydroxy Lab Routine Stage 3a chronic kidney disease ([facility]) Vitamin D insufficiency Expected: 03/09/2024 (Approximate), Expires: 09/07/2025 Protein, Random, Urine with Creatinine Lab Routine Stage 3a chronic kidney disease ([facility]/HCC) Expected: 03/09/2024 (Approximate), Expires: 09/07/2025 Creatinine, Random, Urine Lab Routine Stage 3a chronic kidney disease ([facility]/HCC) Expected: 03/09/2024 (Approximate), Expires: 09/07/2025 Urinalysis with reflex microscopic (Culture NOT Included) Lab Routine Stage 3a chronic kidney disease ([facility]/HCC) Expected: 03/09/2024 (Approximate), Expires: 09/07/2025 documented as of this encounter Visit Diagnoses Diagnosis Stage 3a chronic kidney disease ([facility]/HCC)- Primary Vitamin D insufficiency documented in this encounter Additional Health Concerns Assessment Noted Time A fall risk assessment has been complete d for the patient 04/01/2022 9:09 AM EDT A Body Mass Index follow-up plan has been documented for the patient 02/25/2023 1:16 PM EDT documented as of this encounter Care Teams Lighting Specialist Relationship Specialty Start Date End Date Philip Khan MD [address] [place], [place] [address] PCP - General Internal Medicine 04/01/22 Hilton Maria MD [address] [place] [address] Surgeon Neurosurgery 04/01/22 documented as of this encounter
--- OUTSIDE RECORDS SUMMARY | 2024-05-14 13:53 | XMS_ITS | Encounter Summary ---
Author Organization [facility] Address [address] [place] [address] Care Team Providers Care Photography Intern Name Role Phone Hilton Maria MD Unavailable Philip Khan MD Primary Care Provider + [phone] Encounter Details Date Type Department Care Team (Latest Contact Info) Description 04/14/2024 Travel Social History Tobacco Use Types Packs/Day [...] Description 11/04/2024 9:40 AM EDT Office Visit [facility] [address] [place] [address] Christine Deng, PRICILA [address] [address] documented as of this encounter Visit Diagnoses Not on filedocumented in this encounter Additional Health Concerns Assessment Noted Time A fall risk assessment has been complete d for the patient 04/01/2022 9:09 AM EDT A Body Mass Index follow-up plan has been documented for the patient 02/25/2023 1:16 PM EDT documented as of this encounter Care Teams Photography Intern Relationship Specialty Start Date End Date Philip Khan MD [address] [place] [address] PCP - General Internal Medicine 04/01/22 Hilton Maria MD [address] [place] [address] Surgeon Neurosurgery 04/01/22 documented as of this encounter
--- OUTSIDE RECORDS SUMMARY | 2024-05-14 13:53 | XMS_ITS | Encounter Summary ---
Author Organization Healthcare Address [address] [place] [address] Care Team Providers Care Medical Billing And Coding Instructor Name Role Phone Hilton Maria MD Unavailable Philip Khan MD Primary Care Provider + [phone] Encounter Details Date Type Department Care Team (Latest Contact Info) Description 05/20/2022 - 05/20/2022 11:59 PM EST Hospital Encounter [facility] [address] [place] [address] Examination Discharge Disposition: Home or Self Care Social History Tobacco Use Types Packs/Day Years Used Date Smoking Tobacco: Former Cigarettes 1.5 30 1 9 - 2018 Smokeless Tobacco: Never Alcohol Use [...] suspected to have Coronavirus/COVID-19? No / Unsure 05/06/2022 3:28 PM EST documented as of this encounter Medications at Time of Discharge albuterol 108 (90 Base) MCG/ACT inhaler Inhale 2 puffs if needed. 03/27/2017 atorvastatin (Lipitor) 20 MG tablet 1 (one) time each day at the same time. 09/12/2021 B-D ULTRAFINE III SHORT PEN 31G X 8 MM misc 05/14/2022 clopidogrel (Plavix) 75 MG tablet Take 1 tablet (75 mg) by mouth 1 (one) time each day at the same time. 07/17/2016 ergocalciferol (Vitamin D-2) 1.25 MG (95663 UT) capsule Take 1 capsule (50,000 Units) by mouth 1 (one) time per week. 11/22/2018 famotidine (Pepcid) 20 MG tablet 05/14/2022 gabapentin (Neurontin) 800 MG tablet Take 1 tablet (800 mg) by mouth 3 (three) times a day. 02/23/2018 isosorbide mononitrate ER (Imdur) 30 MG 24 hr tablet Take 1 tablet (30 mg) by mouth 1 (one) time each day. Do not crush or chew. Jardiance 25 MG Take 1 tablet (25 mg) by mouth 1 (one) time each day. 03/05/2022 lisinopril 5 MG tablet 1 (one) time each day at the same time. 09/12/2021 metoprolol tartrate (Lopressor) 25 MG tablet Take 1 tablet (25 mg) by mouth every 12 (twelve) hours. 09/12/2021 OneTouch Ultra test strip 03/07/2022 oxyCODONE-acetami nophen (Percocet) 10-325 MG tablet Take 1 tablet by mouth if needed. 04/02/2022 ranolazine (Ranexa) 1000 MG 12 hr tablet Take 1,000 mg by mouth 2 (two) times a day. 03/05/2022 Spiriva HandiHaler [address] 1 capsule (18 mcg) into inhaler and inhale 1 (one) time each day. 02/27/2022 spironolactone (Aldactone) 50 MG tablet Take 1 tablet (50 mg) by mouth 1 (one) time each day. 03/05/2022 torsemide (Demadex) 100 MG tablet Take 0.5 tablets (50 mg) by mouth 1 (one) time each day. 03/05/2022 chlorzoxazone (Parafon Forte) 500 MG tablet 04/08/2022 02/25/2023 clonazePAM (KlonoPIN) 0.5 MG tablet Take 0.5 mg by mouth 2 (two) times a day if needed. 01/07/2019 02/25/2023 clopidogrel (Plavix) 75 MG tablet 1 (one) time each day at the same time. 05/13/2022 02/25/2023 documented as of this encounter Plan of Treatment Upcoming Encounters Date Type Department Care Team (Late st Contact Info) Description 11/04/2024 9:40 AM EDT Office Visit [facility] [address] [place] [address] Christine Deng APRN [address] [address] documented as of this encounter Procedures Procedure Name Priority Date/Time Associated Diagnosis Comments MR CERVICAL SPINE WO IV CONTRAST Routine 05/20/2022 12:00 AM EST Examination documented in this encounter Results * MR Cervical Spine wo IV Contrast (05/20/2022 12:00 AM EST) Narrative IMAGING - 05/21/2022 11:22 AM EST This study was performed at an outside facility and has been loaded into the PACS system for reference only. ??This order has been auto-finalized and does not contain a result. Procedure Note Amna Powell Y - 05/21/2022 This study was performed at an outside facility and has been loaded intothe PACS system for reference only. This order has been auto-finalizedand does not contain a result. us Ju Galo APRN IMG MRI PROCEDURES Allyn hernández Result IMAGING documented in this encounter Visit Diagnoses Diagnosis Examination Unspecified examination documented in this encounter Additional Health Concerns Assessment Noted Time A fall risk assessment has been complete d for the patient 04/01/2022 9:09 AM EDT documented as of this encounter Care Teams Medical Billing And Coding Instructor Relationship Specialty Start Date End Date Philip Khan MD [address] [place] [address] PCP - General Internal Medicine 04/01/22 Hilton Maria MD [address] [place] [address] Surgeon Neurosurgery 04/01/22 documented as of this encounter
--- OUTSIDE RECORDS SUMMARY | 2024-05-14 13:53 | XMS_ITS | Encounter Summary ---
Author Organization [facility] Address [address] [id number] Care Team Providers Care Project Lead Name Role Phone Hilton Maria MD Unavailable Philip Khan MD Primary Care Provider + [phone] Reason for Visit * Reason Onset Date Comments HCN - Patient Message 04/25/2022 Call patie nt, he received a denial letter from his insurance company for his procedure Encounter Details Date Type Department Care Team ([facility] Contact Info) Description 04/25/2022 Telephone PFE SCHEDULING [address] [place] [address] Hilton Maria MD [address] [facility] [address] [place] [address] HCN - Patient Message (Call patient, he received a denial letter from his insurance company for his procedure) Social History Tobacco Use Types Packs/Day Years Used Date Smoking Tobacco: Former Cigarettes 1.5 30 1 989 - 2019 Smokeless Tobacco: Never Alcohol Use Standard Drinks/Week [...] PM EST documented as of this encounter Miscellaneous Notes * Telephone Encounter - Ju Galo APRN - 04/28/2022 2:[address] Maria spoke with the patient, we will bring him in to the next available Thursday clinic for re-evaluation. If Dr. Maria feels the surgery is still necessary, we will we continue to recommend the surgical intervention and resubmit the information. If he is once again denied for surg vipin, Dr. Maria will perform the peer to peer. Myrna, can you get this patient is scheduled for next Thursday. * Telephone Encounter - Iza Delgado RN - 04/28/2022 1:54 PM EST Is this something I should just ask Dr Carvalho about tomorrow? * Telephone Encounter - Elly Mcdonald - 04/28/2022 1:51 PM EST Patient Phone Message Reason for Call: Patient states he is getting the run around. He wants to speak with the Doctor only about his upcoming surgery being cancelled. Please advise. Best contact number and optimal time of day to reach caller: Note: Please do not reply to this message. Follow-up communication and further actions as a result of this message need to be communicated with the patient directly, if the patient is not active onMyChart. If the patient is active on MyChart, they will receive notification of the communication/outcome via [facility]. * Telephone Encounter - Myrna Man - 04/25/2022 1:58 PM EST IF the pt calls back please give him the message: I called the pt back, left a message that I checked my email and there has not been any determination made yet. Advised I would call as soon as I hear from the insurance company. * Telephone Encounter - Elly Mcdonald - 04/25/2022 12:52 PM EST Patient Phone Message Reason for Call: Patient is returning the call below. Please advise. Best contact number and optimal time of day to reach caller: Note: Please do not reply to this message. Follow-up communication and further actions as a result of this message need to be communicated with the patient directly, if the patient is not active onMyChart. If the patient is active on MyChart, they will receive notification of the communication/outcome via MyChart. * Telephone Encounter - Myrna Man - 04/25/2022 12:36 PM EST Left a msg for pt that there has not been an update on this and that the Insurance company said they will let us know by Thursday at the latest. Advised I would call with anymore updates. * Telephone Encounter - Stephanie William - 04/25/2022 9:04 AM EST Patient Phone Message Reason for Call: Patient called and stated that the [employer] denied his procedure. Please call patient with an update. Best contact number and optimal time of day to reach caller: [phone] Note: Please do not reply to this message. Follow-up communication and further actions as a result of this message need to be communicated with the patient directly, if the patient is not active onMyChart. If the patient is active on MyChart, they will receive notification of the communication/outcome via MyChart. documented in this encounter Plan of Treatment Upcoming Encounters Date Type Department Care Team (Late st Contact Info) Description 11/04/2024 9:40 AM EDT Office Visit [facility] [address] [place] [phone] Christine Deng, ENGINEERING SUPERVISOR [address] [facility] [address] [place] [address] documented as of this encounter Visit Diagnoses Not on filedocumented in this encounter Additional Health Concerns Assessment Noted Time A fall risk assessment has been complete d for the patient 04/01/2022 9:09 AM EDT documented as of this encounter Care Teams Project Lead Relationship Specialty Start Date End Date Philip Khan MD [address] [place] [address] PCP - General Internal Medicine 04/01/22 Hilton Maria MD [address] [facility] [address] [place] [address] Surgeon Neurosurgery 04/01/22 documented as of this encounter
--- OUTSIDE RECORDS SUMMARY | 2024-05-14 13:53 | XMS_ITS | Encounter Summary ---
Author Organization [facility] Address [address] [place] [address] Care Team Providers Care Proj Mgr Name Role Phone Marcos Casper MD Primary Care Provider [phone] Reason for Referral * Pain Management (Routine) - Closed Specialty Diagnoses / Procedures Referred By Contac t Referred To Contact Pain Medicine Diagnoses Acute bilateral low back pain without sciatica Adryan Ojeda PA-C [address] [place] [address] Phone: tel: fax: Guillermo Castellano MD [address] [facility] [address] [place] [address] Phone: tel: fax: Referral ID Status Reason Start Date Expiration Date V isits Requested Visits Authorized [id number] Closed Specialty Services Required 11/23/2017 11/23/2018 1 1 Encounter Details Date Type Department Care Team (Late st Contact Info) Description 11/23/2017 1:30 PM EDT Office Visit [facility] [address] [id number] Adryan Ojeda PA-C [address] [place] [address] Acute bilateral low back pain without sciatica (Primary Dx) Social History Tobacco Use Types [...] Pressure - - Pulse - - Temperature - - Respiratory Rate 18 11/23/2017 1:25 PM EDT Oxygen Saturation 99% 11/23/2017 1:25 PM EDT Inhaled Oxygen Concentration - - Weight 84.8 kg (187 lb) 11/23/2017 1:25 PM EDT Height 165.1 cm (5' 5 ) 11/23/2017 1:25 PM EDT Body Mass Index 31.12 11/23/2017 1:25 PM EDT documented in this encounter Progress Notes * Adryan Ojeda PA-C - 11/23/2017 1:30 PM EDT Patient: Seamus Persaud : 1960 Primary Care Provider: Marcos Casper MD Chief Complaint: Low back pain History of Present Illness: Patient is a 56-year-old -Nepalese male who has a history of about 2 years of back pain. Patient states that in September His symptoms got much worse. Patient states that his symptoms include low back pain and right leg pain when he is up walking for distance. Patient states the distribution of pain goes from his back and his hip down the back of his leg and stays above his knee. Patient gets some relief when he sitting, but he still has quite a bit of back pain and he has trouble getting comfortable. ?? 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 He is now having some difficulty doing these chores. Patient is here today with MRI as well as a flexion extension x-ray to be reviewed. MRI does not show any disc herniation or spinal stenosis. Patient also has a flexion extension x-ray that showed noalignment abnormality or fracture. I discussed with the patient to the likely best treatment for his back pain is pain management. Patient was agreeable to try to go to Dr. Castellano. We will make arrangements for this. Review of Systems Constitutional: Positive for fatigue. Negative for appetite change, chills, diaphoresis, fever and unexpected weight change. HENT: Positive for ear pain, nosebleeds and tinnitus. Negative for congestion, dental problem, drooling, ear discharge, facial swelling, hearing loss, mouth sores, postnasal drip, rhinorrhea, sinus pressure, sneezing, sore throat, trouble swallowing and voice change. Eyes: Positive for photophobia, pain, redness, itching and visual disturbance. Negative for discharge. Respiratory: Positive for cough, chest tightness and shortness of breath. Negative for apnea, choking, wheezing and stridor. Cardiovascular: Positive for chest pain and leg swelling. Negative for palpitations. Gastrointestinal: Positive for abdominal pain and constipation. Negative for abdominal distention, anal bleeding, blood in stool, diarrhea, nausea, rectal pain and vomiting. Endocrine: Positive for polydipsia. Negative for cold intolerance, heat intolerance, polyphagia andpolyuria. Genitourinary: Negative for decreased urine volume, difficulty urinating, dysuria, enuresis, flank pain, frequency, genital sores, hematuria and urgency. Musculoskeletal: Positive for arthralgias, back pain, myalgias and neck pain. Negative for gait problem, joint swelling and neck stiffness. Skin: Negative for color change, pallor, rash and wound. Allergic/Immunologic: Negative for environmental allergies, food allergies and immunocompromised state. Neurological: Positive for dizziness, speech difficulty, weakness, numbness and headaches. Negativefor tremors, seizures, syncope, facial asymmetry and light-headedness. Hematological: Negative for adenopathy. Does not bruise/bleed easily. Psychiatric/Behavioral: Positive for confusion and dysphoric mood. Negative for agitation, behavioral problems, decreased concentration, hallucinations, self- injury, sleep disturbance and suicidal ideas. The patient is nervous/anxious. The patient is not hyperactive. All other systems reviewed and are negative. Past Medical History: Past Medical History: Diagnosis Date ??? Acid reflux ??? Diabetes mellitus ??? Hyperlipidemia ??? Hypertension ??? Stroke Family History: Family History Problem Relation Age of Onset ??? Coronary artery disease Mother ??? Hypertension Mother ??? Heart attack Mother ??? Diabetes Father ??? Hypertension Father ??? Stroke Father ??? Heart attack Sister ??? Stroke Brother ??? Hypertension Brother Social History: reports that he has been smoking. He does not have any smokeless tobacco history on file. He reports that he does not drink alcohol or use drugs. SMOKING STATUS: I spent greater than 10 minutes educating the patient on smoking cessation, and discussed how smoking pertains to the particular disease process at hand. The patient acknowledges understanding. 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: Past 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: Procedure Laterality Date ??? CHOLECYSTECTOMY ??? KNEE ARTHROSCOPY Right ??? SHOULDER SURGERY Left 2009, 2011 Allergies: Patient has no known allergies. Physical Exam: Vital Signs:Resp 18 Ht 165.1 cm (65 ) Wt 84.8 kg (187 lb) SpO2 99% BMI 31.12 kg/m?? BMI: Body mass index is 31.12 kg/m??. GENEREAL: The patient is in no acute distress, and is able to answer all questions appropriately. HEENT: Pupils are equal and reactive to light. Visual harris are full. Extraocular movements are intact without nystagmus. There is no evidence of trauma. Neck: Supple without lymphadenopathy Cardiovascular: Regular rate and rhythm Abdomen: Soft, non-tender, non-distended. Musculoskeletal: The patient???s strength is intact in upper and lower extremities upon direct testing. Boarder Machine strength is 5 out of 5 bilaterally. Shoulder abduction is 5 out of 5. Dorsiflexion and plantarflexion are equal bilaterally as well as the hip flexion against resistance. The patient???s gait is normal without antalgia. Neurologic: The patient is alert and oriented by 3. Recent memory, language, attention span, and fund of knowledge are all with within normal limits. There is no evidence of central motor drift. No facial droop. No difficulty with rapid alternating movements. Sensation is equal bilaterally with no deficit. Reflexes are 2+ at biceps, triceps, brachioradialis, as well as the patellar and Achilles tendon bilaterally. Medical Decision Making Data Review: MRI of the lumbar spine as well as AP and lateral/flexion-extension x-rays were reviewed. No surgical abnormality noted. Diagnosis: Chronic low back pain. Degenerative changes noted in lumbar spine Treatment Options: Patient will proceed with pain management Dr. Castellano. Patient will follow up with us on an as-needed basis. It has been a pleasure providing neurosurgical care. SATINDER Ojeda No diagnosis found. documented in this encounter Plan of Treatment Scheduled Referrals Name Type Priority Associated Diagnoses Order Schedule Ambulatory Referral to Pain Management Outpatient Referral Routine Acute bilateral low back pain without sciatica Ordered: 11/23/2017 documented as of this encounter Visit Diagnoses Diagnosis Acute bilateral low back pain without sciatica- Primary documented in this encounter Care Teams Proj Mgr Relationship Specialty Start Date End Date Marcos Casper MD [address] [facility] [address] ATTN: [place] [address] PCP - General Emergency Medicine 10/16/17 08/12/21 documented as of this encounter
--- OUTSIDE RECORDS SUMMARY | 2024-05-14 13:53 | XMS_ITS | Encounter Summary ---
Author Organization [facility] Address [address] [place] [address] Care Team Providers Care Bonding Equipment Operator Name Role Phone Hilton Maria MD Unavailable Philip Khan MD Primary Care Provider + [phone] Encounter Details Date Type Department Care Team (Late st Contact Info) Description 01/21/2023 Orders Only External Location [address] [place] [address] Enrico Flores MD [address] [place] [address] Social History Tobacco Use Types Packs/Day Years Used Date Smoking Tobacco: Former Cigarettes 1.5 30 989 - 2018 Passive Smoke Exposure: Past Smokeless [...] Encounters Date Type Department Care Team (Late Contact Info) Description 11/04/2024 9:40 AM EDT Office Visit [facility] [address] [place] [address] Christine Deng, DIRECTOR [employer] [address] [place] [phone] documented as of this encounter Procedures Procedure Name Priority Date/Time Associated Diagnosis Comments MR OUTSIDE IMAGES 01/21/2023 1:08 PM EDT documented in this encounter Results * MR transfer of outside films (01/21/2023 1:08 PM EDT) Anatomical Region Laterality Modality Magnetic Resonan ce 01/21/2023 1:08 PM EDT us Enrico Flores MD IMG MRI PROCEDURES Final Resul t documented in this encounter Visit Diagnoses Not on filedocumented in this encounter Additional Health Concerns Assessment Noted Time A fall risk assessment has been complete d for the patient 04/01/2022 9:09 AM EDT documented as of this encounter Care Teams Bonding Equipment Operator Relationship Specialty Start Date End Date Philip Khan MD [address] [place] [address] PCP - General Internal Medicine 04/01/22 Hilton Maria MD [address] [facility] [address] [place] [phone] Surgeon Neurosurgery 04/01/22 documented as of this encounter
--- OUTSIDE RECORDS SUMMARY | 2024-05-14 13:53 | XMS_ITS | Encounter Summary ---
[facility] Organization [facility] Address [address] [place] [address] Care Team Providers Care Meat Packager Name Role Phone Lacey Welsh APRN Primary Care Provider [phone] Encounter Details Date Type Department Care Team (Late st Contact Info) Description 09/20/2015 Office Visit Converted [facility] [address] [place] [address] Lacey Welsh, PRICILA [address] [place] [address] Social History Tobacco Use Types Packs/Day Years Used Date Smoking Tobacco: Never Assessed Sex and Gender Information Value Date Recorded Sex Assigned at Not on file Legal Sex Male 6:18 AM EDT Gender Identity Not on file Sexual Orientation Not on file documented as of this encounter Last Filed Vital Signs Vital Sign Reading Time Taken Comments Blood Pressure 118/74 09/20/2015 2:48 PM EDT Pulse 78 09/20/2015 2:48 PM EDT Temperature 36.2 ??C (97.1 ??F) 09/20/2015 2:48 PM ED T Respiratory Rate 16 09/20/2015 2:48 PM EDT Oxygen Saturation - - Inhaled Oxygen Concentration - - Weight 105 kg (232 lb 0.2 oz) 09/20/2015 2:48 PM EDT Height 165.1 cm (5' 5 ) 09/20/2015 2:48 PM EDT Body Mass Index 38.61 09/20/2015 2:48 PM EDT documented in this encounter Progress Notes * Lacey Welsh APRN - 09/20/2015 3:00 PM EDT 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 Pt. previously seen by Dr. Salazar, needs a new PCP, because he was released from their practice. He say's, she told him he was rude, he does not understand. Pt. just came from Dr. Bradford office earlier today for his R knee pain. Has been treated by him for shoulder and back pain too. 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 54 yo AA male accompanied by his previously seen by Dr. Salazar, needs a new PCP, because he was released from their practice. He say's,she told him he was rude. DM, type 2, HTN, HLP, chronic back pain, acid reflux, Stroke, COPD, tobacco abuse chronic back and neck pain went to ER recently taking Gabapentin and given Baclofen but he says it doesn't help wants another referral to pain management has been to PM in [place] last year as well as PT but was discharged from the practice and says PT didn't help Social History ?? Current every day smoker (305.1) (F17.200) Current Meds Medication Name Instruction Aspirin 81 MG Oral Tablet Atenolol 25 MG Oral Tablet 1 po qd Atorvastatin Calcium 40 MG Oral Tablet Furosemide 40 MG Oral Tablet 1 po qd Gabapentin 800 MG Oral Tablet 1 po TID GlipiZIDE 10 MG Oral Tablet 1 po qd Hydrochlorothiazide 25 MG Oral Tablet 1 po qd Lisinopril 40 MG Oral Tablet 1 po qd MetFORMIN HCl - 850 MG Oral Tablet 1 po bid Pantoprazole Sodium 40 MG Oral Tablet Delayed Release 1 po qd Potassium Chloride 10 MEQ TBCR 1 po bid Ventolin HFA 108 (90 Base) MCG/ACT Inhalation Aerosol Solution Allergies 1. No Known Drug Allergies Vitals Signs [Data Includes: Current Encounter] Temperature: 97.1 F Heart Rate: 78 Respiration: 16 Systolic: 118 Diastolic: 74 Height: 5 ft 5 in Weight: 232 lb BMI Calculated: 38.61 BSA Calculated: 2.11 Physical Exam BH Complete Multi-System Exam: Constitutional General appearance: No acute distress, well appearing and well nourished. Head and Face Head and face: Normal. Eyes Conjunctiva and lids: No swelling, erythema or discharge. Ears, Nose, Mouth, and Throat External inspection of ears and nose: Normal. Pulmonary Respiratory effort: No increased work of breathing or signs of respiratory distress. Auscultation of lungs: Clear to auscultation. Cardiovascular Auscultation of heart: Normal rate and rhythm, normal S1 and S2, no murmurs. Musculoskeletal Gait and station: Abnormal. Limping. Joints, bones, and muscles: Abnormal. Right knee pain. Range of motion: Abnormal. Low back pain. Skin Skin and subcutaneous tissue: Normal without rashes or lesions. Psychiatric Orientation to person, place, and time: Normal. Mood and affect: Normal. Assessment 1. Benign essential hypertension (401.1) (I10) 2. Chronic back pain (724.5,338.29) (M54.9,G89.29) 3. Elevated cholesterol (272.0) (E78.0) 4. Type 2 diabetes mellitus (250.00) (E11.9) Plan Benign essential hypertension ?? Changed: Aspirin 81 MG Oral Tablet To Aspirin 81 MG Oral Tablet TAKE 1 TABLET DAILY Chronic back pain ?? Pain Management Referral Physician Referral Consult Status: Need Information - Required information Requested for: 20Sep2015 Elevated cholesterol ?? Changed: Atorvastatin Calcium 40 MG Oral Tablet To Atorvastatin Calcium 40 MG Oral Tablet TAKE 1 TABLET DAILY End of Encounter Meds Medication Name Instruction Aspirin 81 MG Oral Tablet TAKE 1 TABLET DAILY. Atenolol 25 MG Oral Tablet 1 po qd Atorvastatin Calcium 40 MG Oral Tablet TAKE 1 TABLET DAILY. Furosemide 40 MG Oral Tablet 1 po qd Gabapentin 800 MG Oral Tablet 1 po TID GlipiZIDE 10 MG Oral Tablet 1 po qd Hydrochlorothiazide 25 MG Oral Tablet 1 po qd Lisinopril 40 MG Oral Tablet 1 po qd MetFORMIN HCl - 850 MG Oral Tablet 1 po bid Pantoprazole Sodium 40 MG Oral Tablet Delayed Release 1 po qd Potassium Chloride 10 MEQ TBCR 1 po bid Ventolin HFA 108 (90 Base) MCG/ACT Inhalation Aerosol Solution Discussion/Summary Discussion Summary: pt needs refill of cholesterol med and aspirin will have pt sign to obtain old records to see what recent labs he has had and what his current dx will refer to pain management pt has f/u appt with PCP in October Signatures Electronically signed by : Lacey Welsh APRN; Sep 20 2015 3:49PM EST (Author) documented in this encounter Plan of Treatment Not on file documented as of this encounter Visit Diagnoses Not on filedocumented in this encounter Care Teams Meat Packager Relationship Specialty Start Date End Date Lacey Welsh, ACCOUNTS RECEIVABLE PROCESSOR [address] [place] [address] PCP - General 09/20/15 10/15/17 documented as of this encounter
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
--- OUTSIDE RECORDS SUMMARY | 2024-05-14 13:53 | XMS_ITS | Encounter Summary ---
[facility] Address [address] [place] [address] Care Team Providers Care Concrete Truck Driver Name Role Phone Lacey Welsh APRN Primary Care Provider [phone] Reason for Visit * Reason Comments Med Refill Encounter Details Date Type Department Care Team (Late st Contact Info) Description 10/25/2015 Refill [facility] [address] [place] [address] Tani Mishra MD [address] [place] [address] Social History Tobacco Use Types [...] of this encounter Progress Notes * Tani Mishra MD - 11/07/2015 11:59 AM EDTAddended by: TANI MISHRA on: 11/07/2015 11:59 AM Modules accepted: Orders documented in this encounter Miscellaneous Notes * Telephone Encounter - Lacey Welsh APRN - 10/30/2015 7:48 AM EDT I haven't ever seen this pt. This request will need to go to Dr Mishra. [facility] * Telephone Encounter - Sailaja Nettles MA - 10/25/2015 5:52 PM EDT Pt has only been here one time. He did not mention this med to us or at least I dont see it on his list. documented in this encounter Plan of Treatment Not on file documented as of this encounter Visit Diagnoses Not on filedocumented in this encounter Care Teams Concrete Truck Driver Relationship Specialty Start Date End Date Lacey Welsh APRN [address] [place] [address] PCP - General 09/20/15 10/15/17 documented as of this encounter
--- OUTSIDE RECORDS SUMMARY | 2024-05-14 13:53 | XMS_ITS | Encounter Summary ---
[facility] [address] [place] [address] Care Team Providers Care Pesticide Applicator Name Role Phone Lacey Welsh APRN Primary Care Provider [phone] Encounter Details Date Type Department Care Team (Late st Contact Info) Description 11/14/2015 Telephone [facility] [address] [place] [address] Lacey Welsh, PRICILA [address] [place] [address] Social History Tobacco Use Types [...] Telephone Encounter - Tawnya Rahman LPN - 11/16/2015 3:42 PM EDT rx called in per chart * Telephone Encounter - Tani Mishra MD - 11/16/2015 2:48 PM EDT Please call in 2 month supply, pt will need DM follow up, I did see him for his back pain but that was the only thing discussed and compliance with medications is a major issue for him. There is alsoan issue with his chart as they are working to merge it so I would like these called in, 30 day supply plus 1 refill * Telephone Encounter - Lacey Welsh APRN - 11/14/2015 2:[address] Mishra saw this pt most recently. aj * Telephone Encounter - Tawnya Rahman LPN - 11/14/2015 12:55 PM EDT ----- Message from Vidhi Hathaway sent at 11/14/2015 11:36 AM EDT ----- Contact: DR MISHRA MED REFILL MED REFILL ON ATENOLOL 25MG, METFORMIN 850MG, POTASSIUM 10MG, AND HCTZ 25MG, FUROSAMIDE 40MG, GABAPENTIN 800MG SENT TO [facility] [place]. [id number] documented in this encounter Plan of Treatment Not on file documented as of this encounter Visit Diagnoses Not on filedocumented in this encounter Care Teams Pesticide Applicator Relationship Specialty Start Date End Date Lacey Welsh APRN [address] [place] [address] PCP - General 09/20/15 10/15/17 documented as of this encounter
--- OUTSIDE RECORDS SUMMARY | 2024-05-14 13:53 | XMS_ITS | Encounter Summary ---
Author Organization [facility] Address [address] [place] [address] Care Team Providers Care Colors Custodian Name Role Phone Marcos Casper MD Primary Care Provider [phone] Reason for Referral * Diagnostic Imaging (Routine) - Closed Specialty Diagnoses / Procedures Referred By Contac t Referred To Contact Radiology Diagnoses Spinal stenosis, lumbar region, with neurogenic claudication Procedures MRI Lumbar Spine Without Contrast Adryan Ojeda PA-C [address] [place] [address] Phone: tel: fax: [facility] MRI AT [address] [place] [address] Phone: tel: fax: Referral ID Status Reason Start Date Expiration Date Visits Re quested Visits Authorized [id number] Closed 11/20/2017 01/04/2018 1 1 Reason for Visit * Diagnostic Imaging (Routine) - Closed Specialty Diagnoses / Procedures Referred By Contac t Referred To Contact Radiology Diagnoses Spinal stenosis, lumbar region, with neurogenic claudication Procedures MRI Lumbar Spine Without Contrast Adryan Ojeda PA-C [address] [address] Phone: tel: fax: [facility] MRI AT [address] [place] [address] Phone: tel: fax: Referral ID Status Reason Start Date Expiration Date Visits Re quested Visits Authorized [id number] Closed 11/20/2017 01/04/2018 1 1 Encounter Details Date Type Department Care Team (Late st Contact Info) Description 11/23/2017 11:26 AM EDT - 11/23/2017 11:59 PM EDT Hospital Encounter [facility] MRI AT [address] [place] [phone] Adryan Ojeda PA-C [address] [place] [address] Spinal stenosis, lumbar region, with neurogenic claudication Discharge Disposition: Home or Self Care Social [...] Procedure Name Priority Date/Time Associated Diagnosis Comments MRI LUMBAR SPINE WO CONTRAST Routine 11/23/2017 12:45 PM EDT Spinal stenosis, lumbar region, with neurogenic claudication documented in this encounter Results * MRI Lumbar Spine Without Contrast (11/23/2017 12:45 PM EDT) Anatomical Region Laterality Modality Spine, L-spine N/A Magnetic Resonan ce 11/23/2017 4:11 PM EDT Impressions 11/24/2017 10:24 PM EDT Minor lower lumbar disc bulges with borderline canal stenosis at L3-4 and borderline foraminal narrowing. No evidence of acute trauma, high-grade stenosis, or significant focal subluxation. D: ??11/23/2017 E: ??11/23/2017 This report was finalized on 11/24/2017 10:[address] Armando Rdz MD. Narrative 11/24/2017 10:24 PM EDT EXAMINATION: MRI LUMBAR SPINE WO CONTRAST- 11/23/2017 INDICATION: Low back pain; M48.062-Spinal stenosis, lumbar region with neurogenic claudication ? TECHNIQUE: Sagittal T1, T2, STIR and axial T2-weighted images of the lumbar spine without contrast. COMPARISON: Lumbar spine plain films of today's date. FINDINGS: Lumbar vertebral body heights and disc spaces are well-maintained. No compression deformity or marrow edema is identified. There are small disc protrusions at L3-4 and L4-5. Tip of the conus medullaris lies at L1-2. Axial images show borderline canal stenosis at L3-4. Left neural foramen appears normal. Right neural foramen appears lower limits of normal. At L4-5, canal appears normal. Foramina appear within normal limits. At L5-S1, canal appears normal. Foramina again appear lower limits of normal diameter as a result of facet hypertrophy. Procedure Note Armando Rdz MD - 11/24/2017 EXAMINATION: MRI LUMBAR SPINE WO CONTRAST- 11/23/2017 INDICATION: Low back pain; M48.062-Spinal stenosis, lumbar region with neurogenic claudication TECHNIQUE: Sagittal T1, T2, STIR and axial T2-weighted images of the lumbar spine without contrast. COMPARISON: Lumbar spine plain films of today's date. FINDINGS: Lumbar vertebral body heights and disc spaces are well-maintained. No compression deformity or marrow edema is identified. There are small disc protrusions at L3-4 and L4-5. Tip of the conus medullaris lies at L1-2. Axial images show borderline canal stenosis at L3-4. Left neural foramen appears normal. Right neural foramen appears lower limits of normal. At L4-5, canal appears normal. Foramina appear within normal limits. At L5-S1, canal appears normal. Foramina again appear lower limits of normal diameter as a result of facet hypertrophy. IMPRESSION: Minor lower lumbar disc bulges with borderline canal stenosis at L3-4 and borderline foraminal narrowing. No evidence of acute trauma, high-grade stenosis, or significant focal subluxation. E: 11/23/2017 This report was finalized on 11/24/2017 10:[address] Armando Rdz MD. us Adryan Ojeda PA-C IMG MRI ORDERABLES Final Resul t documented in this encounter Visit Diagnoses Diagnosis Spinal stenosis, lumbar region, with neurogenic claudication documented in this encounter Care Teams Colors Custodian Relationship Specialty Start Date End Date Marcos Casper MD [address] ATTN: [facility] [place] [address] PCP - General Emergency Medicine 10/16/17 08/12/21 documented as of this encounter
--- OUTSIDE RECORDS SUMMARY | 2024-05-14 13:53 | XMS_ITS | Encounter Summary ---
[facility] Organization [facility] Address [address] [place] [id number] Care Team Providers Care Inspecting And Testing Lead Hand Name Role Phone Lacey Welsh APRN Primary Care Provider [phone] Reason for Referral * Diagnostic Imaging (Routine) - Closed Specialty Diagnoses / Procedures Referred By Contac t Referred To Contact Radiology Diagnoses Knee pain, acute, right Procedures XR knee 3 vw right Tani Patterson MD [address] [place] [address] Phone: tel: fax: [facility] [place] [address] [place] [address] Phone: tel: Referral ID Status Reason Start Date Expiration Date Visits Re quested Visits Authorized [id number] Closed 12/14/2015 06/11/2016 1 1 Reason for Visit * Diagnostic Imaging (Routine) - Closed Specialty Diagnoses / Procedures Referred By Contac t Referred To Contact Radiology Diagnoses Knee pain, acute, right Procedures XR knee 3 vw right Tani Patterson MD [address] [place] [address] Phone: tel: fax: [facility] [place] [address] [place] [address] Phone: tel: Referral ID Status Reason Start Date Expiration Date Visits Re quested Visits Authorized [id number] Closed 12/14/2015 06/11/2016 1 1 Encounter Details Date Type Department Care Team (Latest Contact Info) Description 12/14/2015 11:15 AM EDT - 12/14/2015 11:59 PM EDT Hospital Encounter [facility] [place] [address] [place] [phone] Tani Patterson MD [address] [place] [address] Knee pain, acute, right Discharge Disposition: Home or Self Care Social [...] 3 (three) times a day. 90 tablet 10/08/2015 glipiZIDE (GLUCOTROL) 10 MG tablet Take 1 tablet by mouth daily. 30 tablet 5 10/08/2015 lisinopril-hydroc hlorothiazide (PRINZIDE,ZESTORE TIC) 20-25 MG per tablet Take 1 tablet by mouth daily. 30 tablet 5 10/08/2015 ASPIRIN LOW DOSE 81 MG EC tablet 11/16/2015 6 metFORMIN (GLUCOPHAGE) 1000 MG tablet Take 1 tablet by mouth 2 (two) times a day with meals. 60 tablet 5 10/08/2015 10/14/2021 pantoprazole (PROTONIX) 40 MG EC tablet Take 1 tablet by mouth daily. 30 tablet 10/08/2015 10/14/2021 potassium chloride (K-DUR) 10 MEQ CR tablet Take 1 tablet by mouth 2 (two) times a day. 60 tablet 5 10/08/2015 10/14/2021 potassium chloride (MICRO-K) 10 MEQ CR capsule Take by mouth. 08/08/2015 10/14/2021 QUEtiapine (SEROquel) 100 MG tablet TAKE ONE TABLET BY MOUTH AT BEDTIME GENERIC FOR SEROQUEL 30 tablet 1 10/31/2015 01/11/2016 sulindac (CLINORIL) 200 MG tabletIndications :Knee pain, acute, right Take 1 tablet by mouth 2 (two) times a day. 60 tablet 3 12/14/2015 10/14/2021 documented as of this encounter Plan of Treatment Not on file documented as of this encounter Procedures Procedure Name Priority Date/Time Associated Diagnosis Comments XR KNEE 3 VW RIGHT Routine 12/14/2015 11 :25 AM EDT Knee pain, acute, right documented in this encounter Results * XR knee 3 vw right (12/14/2015 11:25 AM EDT) Anatomical Region Laterality Modality Lower Extremities, Knee Right [facility] 12/14/2015 12:4 1 PM EDT Impressions [...] PM by Dr. Maria A Birch MD. us Tani Patterson MD IMG DIAGNOSTIC IMAGING ORDERABL ES Final Result documented in this encounter Visit Diagnoses Diagnosis Knee pain, acute, right documented in this encounter Care Teams Inspecting And Testing Lead Hand Relationship Specialty Start Date End Date Lacey Welsh, COMPLIANCE AIDE [address] [place], [place] [id number] PCP - General 09/20/15 10/15/17 documented as of this encounter
--- OUTSIDE RECORDS SUMMARY | 2024-05-14 13:53 | XMS_ITS | Encounter Summary ---
Author Organization [facility] Address [address] [place] [address] Care Team Providers Care Motorcycle Tester Name Role Phone Marcos Casper MD Primary Care Provider [phone] Reason for Referral * (Routine) - Closed Specialty Diagnoses / Procedures Referred By Contac t Referred To Contact Radiology Diagnoses Spinal stenosis, lumbar region, with neurogenic claudication Procedures XR Spine Lumbar Flex & Ext Adryan Ojeda PA-C [address] [place] [address] Phone: tel: fax: Referral ID Status Reason Start Date Expiration Date Visits Re quested Visits Authorized [id number] Closed 11/12/2017 11/12/2018 1 1 * Diagnostic Imaging (Routine) - Closed Specialty Diagnoses / Procedures Referred By Contac t Referred To Contact Radiology Diagnoses Spinal stenosis, lumbar region, with neurogenic claudication Procedures MRI Lumbar Spine Without Contrast Adryan Ojeda PA-C [address] [address] Phone: tel: fax: [facility] [address] [place] [address] Phone: tel: fax: Referral ID Status Reason Start Date Expiration Date Visits Re quested Visits Authorized [id number] Closed 11/20/2017 01/04/2018 1 1 Reason for Visit * Reason Comments Neck Pain Back Pain Encounter Details Date Type Department Care Team (Late st Contact Info) Description 11/12/2017 1:30 PM EDT Office Visit [facility] [address] [facility] [address] [place] [id number] Adryan Ojeda PA-C [address] [facility] [address] [place] [address] Spinal stenosis, lumbar region, with neurogenic claudication [...] Pressure 118/68 11/12/2017 1:20 PM EDT Pulse - - Temperature 36.4 ??C (97.6 ??F) 11/12/2017 1:20 PM ED T Respiratory Rate - - Oxygen Saturation - - Inhaled Oxygen Concentration - - Weight 85.3 kg (188 lb) 11/12/2017 1:20 PM EDT Height 165.1 cm (5' 5 ) 11/12/2017 1:20 PM EDT Body Mass Index 31.28 11/12/2017 1:20 PM EDT documented in this encounter Progress Notes * Adryan Ojeda PA-C - 11/12/2017 1:30 PM EDT Patient: Seamus Persaud : 1960 Primary Care Provider: Marcos Casper MD Chief Complaint: Low back pain, right leg sciatica History of Present Illness: Patient is a 56-year-old -Prydeinig male who has a history of about [...] pain and he has trouble getting comfortable. 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 He is now having some difficulty doing these chores. Patient thinks that he has had an MRI, but only had x-rays for us to see. X-rays lumbar spine did not show any acute fractures or abnormalities. There may be some subtle spondylolisthesis that lookedto be stable, however, this will may need further imaging. With the patient's symptoms that are reminiscent of neurogenic claudication /sciatica. I think it is reasonable to get an MRI the lumbar spine. I also would like to get a flexion extension x-ray lumbar spine to rule out any spondylolisthesis. There is a little bit of offset over his L5-S1 and L4 5 but this is likely stable. I've discussed this with the patient and he understands that if we are unable to find any surgical cause for his back pain, then we will likely have to send him to pain management. Review of Systems Constitutional: Positive for activity change and fatigue. Negative for appetite change, chills, diaphoresis, fever and unexpected weight change. HENT: Positive for nosebleeds, sneezing and tinnitus. Negative for congestion, dental problem, drooling, ear discharge, ear pain, facial swelling, hearing loss, mouth sores, postnasal drip, rhinorrhea, sinus pressure, sore throat, trouble swallowing and voice change. Eyes: Positive for photophobia, pain, redness and visual disturbance. Negative for discharge and itching. Respiratory: Positive for cough, chest tightness and shortness of breath. Negative for apnea, choking, wheezing and stridor. Cardiovascular: Positive for chest pain and leg swelling. Negative for palpitations. Gastrointestinal: Positive for abdominal pain, diarrhea and nausea. Negative for abdominal distention, anal bleeding, blood in stool, constipation, rectal pain and vomiting. Endocrine: Positive for polydipsia. Negative for cold intolerance, heat intolerance, polyphagia andpolyuria. Genitourinary: Positive for flank pain. Negative for decreased urine volume, difficulty urinating, dysuria, enuresis, frequency, genital sores, hematuria and urgency. Musculoskeletal: Positive for arthralgias, back pain, gait problem, myalgias, neck pain and neck stiffness. Negative for joint swelling. Skin: Negative for color change, pallor, rash and wound. Allergic/Immunologic: Negative for environmental allergies, food allergies and immunocompromised state. Neurological: Positive for dizziness, weakness, numbness and headaches. Negative for tremors, seizures, syncope, facial asymmetry, speech difficulty and light-headedness. Hematological: Negative for adenopathy. Does not bruise/bleed easily. Psychiatric/Behavioral: Positive for dysphoric mood. Negative for agitation, behavioral problems, confusion, decreased concentration, hallucinations, self- injury, sleep disturbance and suicidal ideas. The patient is nervous/anxious. The patient is not hyperactive. Past Medical History: Past [...] drink alcohol or use drugs. SMOKING STATUS: Nonsmoker 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: Past 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: Procedure Laterality Date ??? CHOLECYSTECTOMY ??? KNEE ARTHROSCOPY Right ??? SHOULDER SURGERY Left 2009, 2011 Allergies: Patient has no known allergies. Physical Exam: Vital Signs:BP 118/68 (BP Location: Left arm, Patient Position: Sitting) Temp 97.6 ??F (36.4 ??C)(Temporal Artery ) Ht 165.1 cm (65 ) Wt 85.3 kg (188 lb) BMI 31.28 kg/m?? BMI: Body mass index is 31.28 kg/m??. GENEREAL: The patient is in no [...] upper and lower extremities upon direct testing. Element Burner strength is 5 out of 5 bilaterally. [...] as the patellar and Achilles tendon bilaterally. CRANIAL NERVES: Cranial nerve II: Review of the fundi demonstrates no edema. Visual harris are full to confrontation. Cranial nerves III, IV and : PERRLA DC. Extraocular movements are intact. Nystagmus is not present. Cranial nerve V: Visual sensation is intact to light touch. Cranial nerve VII: Muscles of facial expression revealed no asymmetry. Cranial nerve VIII: Hearing is intact to finger rub bilaterally. Cranial nerve IX and X: Palate elevates symmetrically. Cranial nerve XI: Shoulder shrug is intact. Cranial nerve XII: Tongue is midline without evidence of Atrophy or fasciculation. Medical Decision Making Data Review: X-rays the lumbar spine reviewed. Showed no acute fractures or pars defects. Slight slipping of theL4 5 and 51. Diagnosis: Chronic low back pain Treatment Options: Patient is very nice and we'll be happy to see back. I am unsure whether he knows the difference between an MRI and x-ray. Patient states that he has had an MRI in the past, but hospital did not sendthis with him. If he has a recent MRI from 2018. I'll be happy to review that as opposed to gettinga new scan. If the scan would be more than 6 months old He would need to be rescanned. We will also need to get flexion-extension x-rays of lumbar spine to rule out any spondylolisthesis. It has been a pleasure providing neurosurgical care. Adryan Ojeda PA-C No diagnosis found. documented in this encounter Plan of Treatment Not on file documented as of this encounter Results * MRI Lumbar Spine [...] PA-C IMG MRI ORDERABLES Final Resul t * XR Spine Lumbar Flex & Ext [...] stenosis, lumbar region, with neurogenic claudication- Primary Spinal stenosis, lumbar region, with neurogenic claudication Spinal stenosis, lumbar region, with neurogenic claudication Encounter for imaging to screen for metal prior to MRI Special screening for other specified conditions documented in this encounter Care Teams Motorcycle Tester Relationship Specialty Start Date End Date Marcos Casper MD [address] [facility] [address] ATTN: [place] [address] PCP - General Emergency Medicine 10/16/17 08/12/21 documented as of this encounter
--- OUTSIDE RECORDS SUMMARY | 2024-05-14 13:53 | XMS_ITS | Encounter Summary ---
Author Organization [facility] Address [address] [place] [place] [address] Care Team Providers Care Landscape Contractor Name Role Phone Lacey Welsh APRN Primary Care Provider [phone] Reason for Visit * Reason Comments Med Refill Encounter Details Date Type Department Care Team (Late st Contact Info) Description 01/11/2016 Refill [facility] [address] [place] [address] Tani Patterson MD [address] [place] [address] Social History Tobacco Use Types [...] on filedocumented in this encounter Care Teams Landscape Contractor Relationship Specialty Start Date End Date Lacey eWlsh APRN [address] [address] PCP - General 09/20/15 10/15/17 documented as of this encounter
--- OUTSIDE RECORDS SUMMARY | 2024-05-14 13:53 | XMS_ITS | Encounter Summary ---
Author Organization [facility] Address [address] [place] [address] Care Team Providers Care Therapist Respiratory Name Role Phone Hilton Maria MD Unavailable Philip Khan MD Primary Care Provider [phone] Encounter Details Date Type Department Care Team (Latest Contact Info) Description 05/06/2022 Travel Social History Tobacco Use Types Packs/Day [...] Description 11/04/2024 9:40 AM EDT Office Visit [facility] [address] [place] [phone] Christine Deng, AMBULATORY TECHNOLOGIST [address] [address] documented as of this encounter Visit Diagnoses Not on filedocumented in this encounter Additional Health Concerns Assessment Noted Time A fall risk assessment has been complete d for the patient 04/01/2022 9:09 AM EDT documented as of this encounter Care Teams Therapist Respiratory Relationship Specialty Start Date End Date Philip Khan MD [address] [place] [address] PCP - General Internal Medicine 04/01/22 Hilton Maria MD [address] [facility] [address] [place] [phone] Surgeon Neurosurgery 04/01/22 documented as of this encounter
--- OUTSIDE RECORDS SUMMARY | 2024-05-14 13:53 | XMS_ITS | Encounter Summary ---
Author Organization [facility] Address [address] [place] [address] Care Team Providers Care Airplane Pilot Commercial Name Role Phone Hilton Maria MD Unavailable Philip Khan MD Primary Care Provider [phone] Reason for Visit * Reason Comments Consult Pt was referred by P CP, pt presents today for a consultation. * Consultation (Routine) - Closed Specialty Diagnoses / Procedures Referred By Contac t Referred To Contact Nephrology Diagnoses Stage 3b chronic kidney disease (CMS/HCC) Kyler Holloway MD [address] [address] Phone: tel: fax: Kirby Colin MD [address] [address] Phone: tel: fax: Referral ID Status Reason Start Date Expiration Date V isits Requested Visits Authorized [id number] Closed Specialty Services Required 02/16/2024 08/17/2025 1 1 Encounter Details Date Type Department Care Team (Late st Contact Info) Description 04/15/2024 12:00 PM EST Office Visit [facility] [address] [place], [place] [address] Christine Deng APRN [address] [address] Stage 3b chronic kidney disease (CMS/HCC) (Primary Dx); Urinary tract infection without hematuria, site unspecified; Diabetes mellitus due to underlying condition with diabetic chronic kidney disease, unspecified CKD stage, unspecified whether accounting representative insulin use (CMS/HCC); Essential hypertension Social History Tobacco Use Types Packs/Day Years [...] Pulse 89 04/15/2024 12:06 PM EST Temperature - - Respiratory Rate 18 04/15/2024 12:06 PM EST Oxygen Saturation 100% 04/15/2024 12:06 PM EST Inhaled Oxygen Concentration - - Weight 106 kg (232 lb 9.6 oz) 04/15/2024 12:06 P M EST Height 165.1 cm (5' 5 ) 04/15/2024 12:06 PM EST Body Mass Index 38.71 04/15/2024 12:06 PM EST documented in this encounter Miscellaneous Notes * Progress Notes - Christine Deng APRN - 04/15/2024 12:00 PM EST SUBJECTIVE HISTORY OF PRESENT ILLNESS 63 y.o. male h/o NSCLC since 2019 s/p chemo/xrt here for follow up on CKD. He reports h/o TISHA in November 2021, but is not sure of details, labs show creatinine over 3. He has DM known since ~2018. No CAD but h/o LHC. H/o ablation, ?afib. No ESRD in family. No NSAIDS. No edema. BP well controlled. H/o CVA, no residual deficits, no seizures. H/o remote kidney stone, no surgery. Limited exercise due toexertional dyspnea. Nocturia 1x, notes hesitancy, frequency, and incontinence. 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 No etoh. Smokes 1-2 packs until 2019. Notes he had an episode of pancreatitis a few weeks ago. He did have LE edema following that, but it is improved now. A1c 11.1-->8.9 OBJECTIVE Vitals: 04/15/24 1206 BP: 98/71 Pulse: 89 Resp: 18 SpO2: 100% PHYSICAL EXAMINATION Physical Exam CONSTITUTIONAL: Conversant, well developed, NAD. EYES: No proptosis or lid-lag. EARS: Normal hearing. No lesions. NECK: supple, no JVD RESPIRATORY: Normal respiratory effort. CARDIOVASCULAR: No peripheral edema. EXTREMITIES: No edema. No cyanosis. SKIN: No rash. No lesions. No ulcers. MUSCULOSKELETAL: Normal gait and station. No digital cyanosis. NEURO: Cranial nerves II-XII grossly intact. Oriented. PSYCH: Pleasant affect, appropriate mood LAB RESULTS Creatinine 1.[address] with contrast 2018, no abnormal kidney findings ASSESSMENT/PLAN CKD3 Creatinine baseline appears to be ~1.3-1.5 HTN DM2 --- reviewed old records above, likely vascular disease --- reviewed renal imaging, may need renal US --- agree with current meds, monitor K on lisinopril and spironolactone ---continue Jardiance --- on high dose torsemide --- discussed drug holidays for illnesses RTC 6 mo with renal panel and urine protein ratio documented in this encounter Plan of Treatment Upcoming Encounters Date Type Department Care Team (Late st Contact Info) Description 11/04/2024 9:40 AM EDT Office Visit [facility] [address] [place] [address] Christine Deng APRN [address] [address] Scheduled Orders Name Type Priority Associated Diagnoses Orde r Schedule Urinalysis with reflex microscopic AND reflex culture (IF UTI SUSPECTED) Lab Routine Urinary tract infection without hematuria, site unspecified Expected: 04/15/2024 (Approximate), Expires: 10/13/2025 CBC W/O Differential Lab Routine Stage 3b chronic kidney disease ([facility]) Expected: 04/15/2024 (Approximate), Expires: 10/13/2025 Protein, Random, Urine with Creatinine Lab Routine Stage 3b chronic kidney disease ([facility]) Expected: 04/15/2024 (Approximate), Expires: 10/13/2025 PTH Intact Total Lab Routine Stage 3b chronic kidney disease ([facility]) Expected: 04/15/2024 (Approximate), Expires: 10/13/2025 Renal Function Panel, Plasma Lab Routine Stage 3b chronic kidney disease ([facility]) Expected: 04/15/2024 (Approximate), Expires: 10/13/2025 Vitamin D 25 Hydroxy Lab Routine Stage 3b chronic kidney disease ([facility]) Expected: 04/15/2024 (Approximate), Expires: 10/13/2025 Urinalysis with reflex microscopic (Culture NOT Included) Lab Routine Stage 3b chronic kidney disease ([facility]) Expected: 04/15/2024 (Approximate), Expires: 10/13/2025 documented as of this encounter Visit Diagnoses Diagnosis Stage 3b chronic kidney disease ([facility])- Primary Urinary tract infection without hematuria, site unspecified Diabetes mellitus due to underlying condition with diabetic chronic kidney disease, unspecified CKD stage, unspecified whether [facility] insulin use ([facility]) Essential hypertension Unspecified essential hypertension documented in this encounter Additional Health Concerns Assessment Noted Time A fall risk assessment has been complete d for the patient 04/01/2022 9:09 AM EDT A Body Mass Index follow-up plan has been documented for the patient 04/15/2024 1:06 PM EST documented as of this encounter Care Teams Airplane Pilot Commercial Relationship Specialty Start Date End Date Philip Khan MD [address] [place] [address] PCP - General Internal Medicine 04/01/22 Hilton Maria MD [address] [place] [address] Surgeon Neurosurgery 04/01/22 documented as of this encounter
--- OUTSIDE RECORDS SUMMARY | 2024-05-14 13:53 | XMS_ITS | Encounter Summary ---
[facility] Address [address] [place] [address] Care Team Providers Care Hospice Entrance Attendant Name Role Phone Lacey Welsh APRN Primary Care Provider [phone] Encounter Details Date Type Department Care Team (Late st Contact Info) Description 12/18/2015 Telephone [facility] [address] [place] [address] Tani Patterson MD [address] [place] [address] Social History Tobacco Use Types [...] encounter Miscellaneous Notes * Telephone Encounter - Shamar Juarez LPN - 12/19/2015 10:31 AM EDT Noted * Telephone Encounter - Tani Patterson MD - 12/18/2015 5:04 PM EDT Sent in * Telephone Encounter - Tawnya Rahman LPN - 12/18/2015 3:58 PM EDT ----- Message from Taylor Mcdonough sent at 12/18/2015 3:54 PM EDT ----- Contact: austentavon, patient Needs a refill aspirin taken 1 time a day, says the pharmacy has sent a request but we denied it, pharm hometowadria fowler, (his brother's phone) may leave a message for pt documented in this encounter Plan of Treatment Not on file documented as of this encounter Visit Diagnoses Not on filedocumented in this encounter Care Teams Hospice Entrance Attendant Relationship Specialty Start Date End Date Lacey Welsh, PRICILA [address] [place] [address] PCP - General 09/20/15 10/15/17 documented as of this encounter
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
--- OUTSIDE RECORDS SUMMARY | 2024-05-14 13:54 | XMS_ITS | Encounter Summary ---
Author Organization [facility] Address [address] [place] [address] Care Team Providers Care Intellectual Property Lawyer Name Role Phone Unavailable Primary Care Provider Unavailabl e Encounter Details Date Type Department Care Team (Late st Contact Info) Description 10/06/2016 [facility]HR Vitals Encounter [facility] OUTPATIENT CONVERSIONS [address] [place] [address] ProviderBg MD [address] [place] [address] Social History Tobacco Use Types Packs/Day Years [...] - Inhaled Oxygen Concentration - - Weight 38 kg (83 lb 11.3 oz) 10/06/2016 9:00 AM EDT Height 165.1 cm (5' 5 ) 10/06/2016 8:45 AM EDT Body Mass Index 13.93 10/06/2016 8:45 AM EDT documented in this encounter Plan of Treatment Upcoming Encounters Date Type Department Care Team (Late st Contact Info) Description 11/04/2024 9:40 AM EDT Office Visit [facility] [address] [place] [phone] Christine Deng, PIPE PRODUCTION WORKER [address] [address] documented as of this encounter Visit Diagnoses Not on filedocumented in this encounter
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
--- OUTSIDE RECORDS SUMMARY | 2024-05-14 13:54 | XMS_ITS | Encounter Summary ---
Author Organization Healthcare Address [address] [place] [address] Care Team Providers Care Fraternity Adviser Name Role Phone Unavailable Primary Care Provider Unavailabl e Encounter Details Date Type Department Care Team (Late st Contact Info) Description 07/17/2011 [facility] AEHR Vitals Encounter [facility] OUTPATIENT CONVERSIONS [address] [place] [address] Provider, MD [address] [place] [address] Social History Tobacco Use Types Packs/Day [...] Oxygen Concentration - - Weight 104 kg (229 lb 6 oz) 07/17/2011 9:[address] Height - - Body Mass Index - - documented in this encounter Plan of Treatment Upcoming Encounters Date Type Department Care Team (Late st Contact Info) Description 11/04/2024 9:40 AM EDT Office Visit [facility] [address] [place] [phone] Christine Deng, SERVICE RESTORER EMERGENCY [address] [address] documented as of this encounter Visit Diagnoses Not on filedocumented in this encounter
--- OUTSIDE RECORDS SUMMARY | 2024-05-14 13:54 | XMS_ITS | Encounter Summary ---
Author Organization Healthcare Address [address] [place] [address] Care Team Providers Care Health Systems Analyst Name Role Phone Unavailable Primary Care Provider Unavailabl e Encounter Details Date Type Department Care Team (Late st Contact Info) Description 08/21/2011 [facility] AEHR Vitals Encounter [facility] OUTPATIENT CONVERSIONS [address] [place] [address] Provider, MD [address] [place] [address] Social History Tobacco Use Types Packs/Day [...] Oxygen Concentration - - Weight 101 kg (222 lb 8 oz) 08/21/2011 3:04 PM E DT Height - - Body Mass Index - - documented in this encounter Plan of Treatment Upcoming Encounters Date Type Department Care Team (Late st Contact Info) Description 11/04/2024 9:40 AM EDT Office Visit [facility] [address] [place] [phone] Christine Deng, BACK TENDER PULP DRIER [address] [address] documented as of this encounter Visit Diagnoses Not on filedocumented in this encounter
--- OUTSIDE RECORDS SUMMARY | 2024-05-14 13:54 | XMS_ITS | Encounter Summary ---
Author Organization Healthcare Address [address] [place] [address] Care Team Providers Care Lead Scientist Name Role Phone Unavailable Primary Care Provider Unavailabl e Encounter Details Date Type Department Care Team (Latest Contact Info) Description 01/20/2020 - 01/20/2020 11:59 PM EDT Hospital Encounter [facility] [address] [place] [address] Examination Discharge Disposition: Home or Self Care [...] inhaler Inhale 2 puffs if needed. 03/27/2017 clopidogrel (Plavix) 75 MG tablet Take 1 tablet (75 mg) by mouth 1 (one) time each day at the same time. 07/17/2016 ergocalciferol (Vitamin D-2) 1.25 MG (63321 UT) capsule Take 1 capsule (50,000 Units) by mouth 1 (one) time per week. 11/22/2018 gabapentin (Neurontin) 800 MG tablet Take 1 tablet (800 mg) by mouth 3 (three) times a day. 02/23/2018 clonazePAM (KlonoPIN) 0.5 MG tablet Take 0.5 mg by mouth 2 (two) times a day if needed. 01/07/2019 02/25/2023 HYDROcodone-aceta minophen (Phillips) 5-325 MG tablet 1 tab(s) orally every 6 hours, As Needed -PRN pain 10/27/2019 04/25/2022 documented as of this encounter Plan of Treatment Upcoming Encounters Date Type Department Care Team (Late st Contact Info) Description 11/04/2024 9:40 AM EDT Office Visit [facility] [address] [place] [address] Christine Deng, WEAPONS DESIGNER [address] [facility] [address] [place] [address] documented as of this encounter Procedures Procedure Name Priority Date/Time Associated Diagnosis Comments XR KNEE LEFT 4+ VIEWS Routine 01/20/2020 12:00 AM EDT Examination documented in this encounter Results * XR Knee Left 4+ Views (01/20/2020 12:00 AM EDT) Narrative IMAGING - 05/21/2022 11:32 AM EST This study was performed at an outside facility and has been loaded into the PACS system for reference only. ??This order has been auto-finalized and does not contain a result. us Ju Galo WEAPONS DESIGNER IMG XR PROCEDURES Final Result IMAGING documented in this encounter Visit Diagnoses Diagnosis Examination Unspecified examination documented in this encounter
--- OUTSIDE RECORDS SUMMARY | 2024-05-14 13:54 | XMS_ITS | Encounter Summary ---
Author Organization [facility] Address [address] [place] [address] Care Team Providers Care Diagrammer And Seamer Name Role Phone Hilton Maria MD Unavailable Philip Khan MD Primary Care Provider + [phone] Encounter Details Date Type Department Care Team (Latest Contact Info) Description 04/07/2022 Travel Social History Tobacco Use Types Packs/Day Years Used Date Smoking Tobacco: Former Cigarettes Smokeless Tobacco: Never Alcohol Use Standard Drinks/Week Comments Not Currently [...] suspected to have Coronavirus/COVID-19? No / Unsure 04/07/2022 1:21 PM EDT documented as of this encounter Plan of Treatment Upcoming Encounters Date Type Department Care Team (Late st Contact Info) Description 11/04/2024 9:40 AM EDT Office Visit [facility] [address] [place] [address] Christine Deng, CASTING MACHINE OPERATOR [address] [facility] [address] [place] [address] documented as of this encounter Visit Diagnoses Not on filedocumented in this encounter Additional Health Concerns Assessment Noted Time A fall risk assessment has been complete d for the patient 04/01/2022 9:09 AM EDT documented as of this encounter Care Teams Diagrammer And Seamer Relationship Specialty Start Date End Date Philip Khan MD [address] [place] [address] PCP - General Internal Medicine 04/01/22 Hilton Maria MD [address] [place] [phone] Surgeon Neurosurgery 04/01/22 documented as of this encounter
--- OUTSIDE RECORDS SUMMARY | 2024-05-14 13:54 | XMS_ITS | Encounter Summary ---
Author Organization [facility] Address [address] [place] [address] Care Team Providers Care Executive Assistant To President Name Role Phone Unavailable Primary Care Provider Unavailabl e Encounter Details Date Type Department Care Team (Late st Contact Info) Description 02/10/2012 [facility] AEHR Vitals Encounter [facility] OUTPATIENT CONVERSIONS [address] [place] [address] ProviderBg MD [address] [place] [address] Social History Tobacco Use Types Packs/Day [...] - Inhaled Oxygen Concentration - - Weight 99.8 kg (220 lb) 02/10/2012 7:58 AM EDT Height 167.6 cm (5' 6 ) 02/10/2012 7:58 AM EDT Body Mass Index 35.51 02/10/2012 7:58 AM EDT documented in this encounter Plan of Treatment Upcoming Encounters Date Type Department Care Team (Late st Contact Info) Description 11/04/2024 9:40 AM EDT Office Visit [facility] [address] [place] [phone] Christine Deng, MEATCUTTER [address] [phone] documented as of this encounter Visit Diagnoses Not on filedocumented in this encounter
--- OUTSIDE RECORDS SUMMARY | 2024-05-14 13:54 | XMS_ITS | Encounter Summary ---
Author Organization [facility] Address [address] [place] [address] Care Team Providers Care Legal Manager Name Role Phone Unavailable Primary Care Provider Unavailabl e Encounter Details Date Type Department Care Team (Late Contact Info) Description 11/13/2011 Legacy AEHR Vitals Encounter [facility] OUTPATIENT CONVERSIONS [address] [place] [address] ProviderBg MD [address] [place] [address] Social History Tobacco Use Types Packs/Day [...] - - Weight 104 kg (229 lb 3 oz) 11/13/2011 9:51 AM E DT Height - - Body Mass Index 36.99 09/29/2011 3:36 PM EDT documented in this encounter Plan of Treatment Upcoming Encounters Date Type Department Care Team (Late st Contact Info) Description 11/04/2024 9:40 AM EDT Office Visit [facility] [address] [place] [phone] Christine Deng, MINE ENGINEER [address] [address] documented as of this encounter Visit Diagnoses Not on filedocumented in this encounter
--- OUTSIDE RECORDS SUMMARY | 2024-05-14 13:54 | XMS_ITS | Encounter Summary ---
Author Organization [facility] Address [address] [place] [address] Care Team Providers Care Geospatial Applications Developer Name Role Phone Unavailable Primary Care Provider Unavailabl e Encounter Details Date Type Department Care Team (Late st Contact Info) Description 06/27/2014 Legacy AEHR Vitals Encounter [facility] OUTPATIENT CONVERSIONS [address] [place] [address] Provider, MD Bg [address] [place] [address] Social History Tobacco Use Types Packs/Day [...] Oxygen Concentration - - Weight 106 kg (233 lb 15.9 oz) 06/27/2014 11:17 AM EST Height 167.6 cm (5' 6 ) 06/27/2014 11:17 AM EST Body Mass Index 37.77 06/27/2014 11:17 AM EST documented in this encounter Plan of Treatment Upcoming Encounters Date Type Department Care Team (Late Contact Info) Description 11/04/2024 9:40 AM EDT Office Visit [facility] [address] [place] [phone] Christine Deng, LINER INSTALLER [address] [address] documented as of this encounter Visit Diagnoses Not on filedocumented in this encounter
--- OUTSIDE RECORDS SUMMARY | 2024-05-14 13:54 | XMS_ITS | Encounter Summary ---
Author Organization [facility] Address [address] [place] [address] Care Team Providers Care Superintendent [employer] Name Role Phone Unavailable Primary Care Provider Unavailabl e Encounter Details Date Type Department Care Team (Late st Contact Info) Description 04/27/2012 Legacy AEHR Vitals Encounter [facility] OUTPATIENT CONVERSIONS [address] [place] [address] ProviderBg MD [address] [place] [address] Social History Tobacco Use Types Packs/Day [...] Oxygen Concentration - - Weight 104 kg (228 lb 3 oz) 04/27/2012 9:[address] Height - - Body Mass Index 36.83 02/10/2012 7:58 AM EDT documented in this encounter Plan of Treatment Upcoming Encounters Date Type Department Care Team (Late st Contact Info) Description 11/04/2024 9:40 AM EDT Office Visit [facility] [address] [place] [phone] Christine Deng, DROP WIRE ALIGNER [address] [address] documented as of this encounter Visit Diagnoses Not on filedocumented in this encounter
--- OUTSIDE RECORDS SUMMARY | 2024-05-14 13:54 | XMS_ITS | Encounter Summary ---
Author Organization [facility] Address [address] [place] [address] Care Team Providers Care Compressed Gas Tester Name Role Phone Unavailable Primary Care Provider Unavailabl e Encounter Details Date Type Department Care Team (Late Contact Info) Description 02/02/2013 [facility] AEHR Vitals Encounter [facility] OUTPATIENT CONVERSIONS [address] [place] [address] ProviderBg MD [address] [place] [address] Social History Tobacco Use Types Packs/Day [...] Oxygen Concentration - - Weight 105 kg (231 lb) 02/02/2013 2:29 PM EDT Height 167.6 cm (5' 6 ) 02/02/2013 2:29 PM EDT Body Mass Index 37.28 02/02/2013 2:29 PM EDT documented in this encounter Plan of Treatment Upcoming Encounters Date Type Department Care Team (Late Contact Info) Description 11/04/2024 9:40 AM EDT Office Visit [facility] [address] [place] [phone] Christine Deng, CARPET INSPECTOR FINISHED [address] [phone] documented as of this encounter Visit Diagnoses Not on filedocumented in this encounter
--- OUTSIDE RECORDS SUMMARY | 2024-05-14 13:54 | XMS_ITS | Encounter Summary ---
Author Organization [facility] Address [address] [place] [address] Care Team Providers Care Mental Health Clinician Name Role Phone Hilton Maria MD Unavailable Philip Khan MD Primary Care Provider + [phone] Reason for Visit * Reason Comments Consult Encounter Details Date Type Department Care Team ([facility] st Contact Info) Description 04/07/2022 1:40 PM EDT Consult [facility] [address] [place] [address] Francesco Richardson MD [address] [phone] Stage 3a chronic kidney disease (CMS/HCC) (Primary Dx); Essential hypertension; Type 2 diabetes mellitus with stage 3a chronic kidney disease, without long-term current use of insulin (CMS/HCC) Social History Tobacco Use Types Packs/Day Years [...] PM EDT documented as of this encounter Last Filed Vital Signs Vital Sign Reading Time Taken Comments Blood Pressure 119/65 04/07/2022 1:27 PM EDT Pulse 73 04/07/2022 1:27 PM EDT Temperature - - Respiratory Rate - - Oxygen Saturation - - Inhaled Oxygen Concentration - - Weight 105 kg (232 lb) 04/07/2022 1:27 PM EDT Height 165.1 cm (5' 5 ) 04/07/2022 1:27 PM EDT Body Mass Index 38.61 04/07/2022 1:27 PM EDT documented in this encounter Miscellaneous Notes * Progress Notes - Francesco Richardson MD - 04/07/2022 1:40 PM EDT SUBJECTIVE Seamus Persaud presents as a consultation today with/for CKD. HISTORY OF PRESENT ILLNESS 61 yo male h/o NSCLC since 2019 s/p chemo/xrt here for consultation regarding CKD. He reports h/o TISHA in November 2021, but is not sure of details, labs show creatinine over 3. He has DM on about 3-4 years. No CAD but h/o LHC. H/o ablation, ?afib. No ESRD in family. No NSAIDS. No edema. BP well controlled. H/o CVA, no residual deficits, no seizures. H/o remote kidney stone, no surgery. Limited exercise due to exertional dyspnea. Nocturia 1x, notes hesitancy, frequency, and incontinence. 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 No etoh. Smokes 1-2 packs until 2019. Past Medical History: Diagnosis Date Conversions - [...] Other Lung disease Other Kidney failure Other Past 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: Procedure Laterality Date CHOLECYSTECTOMY N/A Cholecystectomy from [facility] and some sugar GALLBLADDER SURGERY KNEE SURGERY N/A Knee Surgery from 5 CUPS and some sugar OTHER SURGICAL HISTORY N/A History of shoulder surgery from [facility] and some sugar OTHER SURGICAL HISTORY N/A History of cholecystectomy from 5 [facility] and some sugar OTHER SURGICAL HISTORY N/A History of knee surgery from 5 CUPS and some sugar SHOULDER SURGERY N/A Shoulder Surgery from 5 CUPS and some sugar Social History Tobacco Use Smoking status: Former Types: Cigarettes Smokeless tobacco: Never Substance Use Topics Alcohol use: Not Currently Comment: Alcoholic Drinks/day: Stopped Drinking Alcohol Current Outpatient Medications Medication Sig Dispense Refill albuterol 108 (90 Base) MCG/ACT inhaler atorvastatin (Lipitor) 20 MG tablet 1 (one) time each day at the same time. clonazePAM (KlonoPIN) 0.5 MG tablet every 8 (eight) hours. clopidogrel (Plavix) 75 MG tablet 1 (one) time each day at the same time. ergocalciferol (Vitamin D-2) 1.25 MG (44679 UT) capsule famotidine (Pepcid) 20 MG tablet every 12 (twelve) hours. gabapentin (Neurontin) 800 MG tablet every 6 (six) hours. glipiZIDE XL (Glucotrol XL) 10 MG 24 hr tablet HYDROcodone-acetaminophen ([place]) 5-325 MG tablet 1 tab(s) orally every 6 hours, As Needed -PRN pain isosorbide dinitrate (Isordil) 30 MG tablet Take 30 mg by mouth 4 (four) times a day. Jardiance 25 MG lisinopril 5 MG tablet 1 (one) time each day at the same time. metoprolol tartrate (Lopressor) 25 MG tablet every 12 (twelve) hours. OneTouch Ultra test strip oxyCODONE-acetaminophen (Percocet) 10-325 MG tablet ranolazine (Ranexa) 1000 MG 12 hr tablet Spiriva HandiHaler 18 MCG inhalation capsule spironolactone (Aldactone) 50 MG tablet torsemide (Demadex) 100 MG tablet No current facility-administered medications for this visit. Allergies Allergen Reactions Naproxen Hives, Other and Unknown Tramadol Hives, Other, Nausea Only and Unknown All medications have been reviewed today. REVIEW OF SYSTEMS Review of Systems Constitutional: Negative. No fever, fatigue, weight loss. Eyes: Negative. No vision changes. HEENT: Negative. No headache, hearing loss, mouth sores. Cardiovascular: Negative. No chest pain or discomfort, lower extremity swelling. Respiratory: Negative. No shortness of breath at rest, cough, hemoptysis. Gastrointestinal: Negative. No heartburn, loss of appetite, nausea, vomiting, bowel disturbance. Genitourinary: Negative. No dysuria, hematuria, incontinence, urinary frequency. Musculoskeletal: Negative. No lower back pain, joint swelling, gait disturbance. Integumentary: Negative. No rash, photosensitivity. Neurological: Negative. No seizure, vertigo, focal weakness, paresthesia. Psychiatric: Negative. No anxiety. No depressed mood. Endocrine: Negative. No polyuria. Libido not decreased. Hematologic/Lymphatic: Negative. No bruising. No prior history of a blood transfusion. OBJECTIVE Vitals: 04/07/22 1327 BP: 119/65 Pulse: 73 PHYSICAL EXAMINATION Physical Exam CONSTITUTIONAL: Conversant, well [...] Pleasant affect, appropriate mood LAB RESULTS Creatinine 1.7 eGFR 45 K 4.[address] with contrast 2017, no abnormal kidney findings ASSESSMENT/PLAN CKD3a HTN DM2 --- reviewed old records above, likely vascular disease, h/o TISHA, no proteinuria --- reviewed renal imaging, may need renal US --- agree with current meds, monitor K on lisinopril and spironolactone --- good candidate for Jardiance --- on high dose torsemide --- discussed drug holidays for illnesses RTC 6 mo with renal panel and urine protein ratio documented in this encounter Plan of Treatment Upcoming Encounters Date Type Department Care Team (Late st Contact Info) Description 11/04/2024 9:40 AM EDT Office Visit [facility] [address] [place] [phone] Christine Deng, BRICKMASON SUPERVISOR [address] [facility] [address] [place] [address] documented as of this encounter Visit Diagnoses Diagnosis Stage 3a chronic kidney disease (CMS/HCC)- Primary Essential hypertension Unspecified essential hypertension Type 2 diabetes mellitus with stage 3a chronic kidney disease, without long-term current use of insulin (CMS/HCC) documented in this encounter Additional Health Concerns Assessment Noted Time A fall risk assessment has been complete d for the patient 04/01/2022 9:09 AM EDT documented as of this encounter Care Teams Mental Health Clinician Relationship Specialty Start Date End Date Philip Khan MD [address] [place] [address] PCP - General Internal Medicine 04/01/22 Hilton Maria MD [address] [place] [address] Surgeon Neurosurgery 04/01/22 documented as of this encounter
--- OUTSIDE RECORDS SUMMARY | 2024-05-14 13:54 | XMS_ITS | Encounter Summary ---
Author Organization [facility] Address [address] [place] [address] Care Team Providers Care Creping Machine Operator Helper Name Role Phone Unavailable Primary Care Provider Unavailabl e Encounter Details Date Type Department Care Team (Late st Contact Info) Description 02/02/2017 Legacy AEHR Vitals Encounter [facility] OUTPATIENT CONVERSIONS [address] [place] [address] ProviderBg MD [address] [place] [address] Social History Tobacco Use Types Packs/Day [...] - Inhaled Oxygen Concentration - - Weight 84.3 kg (185 lb 13.6 oz) 02/02/2017 9:17 AM EDT Height 165.1 cm (5' 5 ) 02/02/2017 9:17 AM EDT Body Mass Index 30.93 02/02/2017 9:17 AM EDT documented in this encounter Plan of Treatment Upcoming Encounters Date Type Department Care Team (Late st Contact Info) Description 11/04/2024 9:40 AM EDT Office Visit [facility] [address] [place] [phone] Christine Deng, EMBROIDERY PATTERNMAKER [address] [phone] documented as of this encounter Visit Diagnoses Not on filedocumented in this encounter
--- OUTSIDE RECORDS SUMMARY | 2024-05-14 13:54 | XMS_ITS | Encounter Summary ---
Author Organization [facility] Address [address] [place] [address] Care Team Providers Care Autocad Draftsman Name Role Phone Hilton Maria MD Unavailable Philip Khan MD Primary Care Provider + [phone] Encounter Details Date Type Department Care Team (Latest Contact Info) Description 04/01/2022 11:15 AM EDT Office Visit [facility] [address] [place] [address] Neck pain; Cervical disc disorder at C5-C6 level with [...] AM EDT documented as of this encounter Plan of Treatment Upcoming Encounters Date Type Department Care Team (Late st Contact Info) Description 11/04/2024 9:40 AM EDT Office Visit [facility] [address] [place] [phone] [place], Christine Galvin, PHARMACY TECHNICIAN PER DIEM [address] [facility] [address] [place] [address] documented as of this encounter Procedures Procedure Name Priority Date/Time Associated Diagnosis Comments ECG ADULT Routine 04/01/2022 10:57 AM EDT Neck pain Cervical disc disorder at C5-C6 level with radiculopathy documented in this encounter Results * ECG Adult (Performed in [facility] Station) (04/01/2022 10:57 AM EDT) EKG DIAGNOSIS CLASS Normal MUSE ECG Ventricular Rate 80 BPM MUSE ECG Atrial Rate 80 BPM MUSE ECG VA Interval 150 ms MUSE ECG QRSD Interval 74 ms MUSE ECG QT Interval 390 ms MUSE ECG QTC Interval 449 ms MUSE ECG P [place] 31 degrees MUSE ECG R [place] 12 degrees MUSE ECG T Wave [place] 36 degrees MUSE ECG Diagnosis Normal sinus rhythm MUSE ECG Diagnosis Normal ECG MUSE ECG Diagnosis Confirmed by Tyrell Velasquez ([id number]) on 04/01/2022 4:39:51 PM MUSE ECG 04/01/2022 10:5 7 AM EDT 04/01/2022 4:39 PM EDT us Hilton Maria MD ECG ORDERABLES Final Result MUSE ECG documented in this encounter Visit Diagnoses Diagnosis Neck pain Cervicalgia Cervical disc disorder at C5-C6 level with radiculopathy documented in this encounter Additional Health Concerns Assessment Noted Time A fall risk assessment has been complete d for the patient 04/01/2022 9:09 AM EDT documented as of this encounter Care Teams Autocad Draftsman Relationship Specialty Start Date End Date Philip Khan MD [address] [place] [address] PCP - General Internal Medicine 04/01/22 Hilton Maria MD [address] [place] [address] Surgeon Neurosurgery 04/01/22 documented as of this encounter
--- OUTSIDE RECORDS SUMMARY | 2024-05-14 13:54 | XMS_ITS | Encounter Summary ---
Author Organization [facility] Address [address] [place] [address] Care Team Providers Care Advertising Executive Name Role Phone Unavailable Primary Care Provider Unavailabl e Encounter Details Date Type Department Care Team (Late Contact Info) Description 02/26/2012 Legacy AEHR Vitals Encounter [facility] OUTPATIENT CONVERSIONS [address] [place] [address] ProviderBg MD [address] [place] [address] Social History Tobacco Use Types Packs/Day [...] - - Weight 99.8 kg (220 lb) 02/26/2012 9:15 AM EDT Height - - Body Mass Index 35.51 02/10/2012 7:58 AM EDT documented in this encounter Plan of Treatment Upcoming Encounters Date Type Department Care Team (Late st Contact Info) Description 11/04/2024 9:40 AM EDT Office Visit [address] [place] [phone] Christine Deng, SPORTS ANCHOR [address] [address] documented as of this encounter Visit Diagnoses Not on filedocumented in this encounter
--- OUTSIDE RECORDS SUMMARY | 2024-05-14 13:54 | XMS_ITS | Encounter Summary ---
Author Organization [facility] Address [address] [place] [address] Care Team Providers Care Health Care Attorney Name Role Phone Lyndon Medina MD Primary Care Provider Encounter Details Date Type Department Care Team (Late Contact Info) Description 03/06/2022 Orders Only [facility] [address] [place] [address] Shoshana Sandoval Stage 3b chronic kidney disease (CMS/HCC) (Primary Dx); Vitamin D deficiency Social History Tobacco Use Types Packs/Day Years Used Date Smoking Tobacco: Every Day Alcohol Use Standard Drinks/Week Comments Yes 0 [...] EDT Office Visit [facility] [address] [place] [address] Christine Deng, HARDWARE DESIGNER [address] [phone] documented as of this encounter Procedures Procedure Name Priority Date/Time Associated Diagnosis Comments PROTEIN, URINE, RANDOM WITH CREATININE Routine 04/01/2022 11:28 AM EDT Stage 3b chronic kidney disease (CMS/HCC) VITAMIN D 25 HYDROXY Routine 04/01/2022 11:28 AM EDT Vitamin D deficiency URINALYSIS WITH REFLEX MICROSCOPIC Routine 04/01/2022 11:28 AM EDT Stage 3b chronic kidney disease (CMS/HCC) CBC WITH AUTO DIFFERENTIAL Routine 04/01/2022 11:28 AM EDT Stage 3b chronic kidney disease (CMS/HCC) PHOSPHORUS, PLASMA Routine 04/01/2022 11 :28 AM EDT Stage 3b chronic kidney disease (CMS/HCC) PTH INTACT TOTAL Routine 04/01/2022 11:2 8 AM EDT Stage 3b chronic kidney disease (CMS/HCC) documented in this encounter Results * Phosphorus, Plasma (04/01/2022 11:28 AM EDT) Phosphorus, Plasma 3.4 2.5 - 4.5 mg/dL 04/01/2022 1:38 PM EDT [facility] Blood Venous blood specimen / Unknown Venipuncture / Unknown 04/01/2022 11:28 AM EDT 04/01/2022 11:29 AM EDT us Francesco Richardson MD LAB BLOOD ORDERABLES Final Re sult [facility] [address] [place] [address] * Vitamin D 25 Hydroxy (04/01/2022 11:28 AM EDT) Vitamin D 25 Hydroxy 27.1 20.0 - 80.0 ng/mL 04/01/2022 3:12 PM EDT [facility] Comment: Vitamin D, 25-Hydroxy reference range, age 18 years and up: Deficiency: ? <12 ng/mL Insufficiency: ?12 to 19 ng/mL Sufficiency: ?20 to 80 ng/mL Possible toxicity: ??>100 ng/mL Blood Venous blood specimen / Unknown Venipuncture / Unknown 04/01/2022 11:28 AM EDT 04/01/2022 11:29 AM EDT Francesco Richardson MD LAB BLOOD ORDERABLES Final Re sult Performing Organization Address [facility] de Phone Number [facility] [address] [place] [address] * (ABNORMAL) PTH Intact Total (04/01/2022 11:28 AM EDT) PTH Intact Total 117(H) 12 - 72 pg/mL 04/01/2022 3:17 PM EDT [facility] Blood Venous blood specimen / Unknown Venipuncture / Unknown 04/01/2022 11:28 AM EDT 04/01/2022 11:29 AM EDT Narrative [facility] - 04/01/2022 3:17 PM EDT Assay performed by immunoassay at the [facility]. Performed by Kehinde Alexander chemiluminescent immunoassay which is traceable to [place] ISO 15475. Results obtained with different test methods or kits cannot be used interchangeably. Francesco Richardson MD LAB BLOOD ORDERABLES Final Re sult Performing Organization Address [facility] de Phone Number [facility] [address] [place] [address] * (ABNORMAL) Urinalysis with reflex microscopic (04/01/2022 11:28 AM EDT) Color, Urine Yellow LAB URINALYSIS - AUTOMATED METHOD 04/01/2022 12:50 PM EDT [facility] Clarity, Urine Clear LAB URINALYSIS - AUTOMATED METHOD 04/01/2022 12:50 PM EDT [facility] Spec [place], Urine >=1.030 <=1.005 to >=1.030 LAB URINALYSIS - AUTOMATED METHOD 04/01/2022 12:50 PM EDT [facility] pH, Urine 6.5 4.5 to 8 LAB URINALYSIS - AUTOMATED METHOD 04/01/2022 12:50 PM EDT [facility] Protein, Urine Trace(A) Negative mg/dL LAB URINALYSIS - AUTOMATED METHOD 04/01/2022 12:50 PM EDT [facility] Glucose, Urine >=1000(A) Negative mg/dL LAB URINALYSIS - AUTOMATED METHOD 04/01/2022 12:50 PM EDT [facility] Ketones, Urine Negative Negative mg/dL LAB URINALYSIS - AUTOMATED METHOD 04/01/2022 12:50 PM EDT [facility] Blood, Urine Negative Negative LAB URINALYSIS - AUTOMATED METHOD 04/01/2022 12:50 PM EDT [facility] Bilirubin, Urine Negative Negative LAB URINALYSIS - AUTOMATED METHOD 04/01/2022 12:50 PM EDT [facility] Urobilinogen, Urine 1.0 0.2 to 1.0 mg/dL LAB URINALYSIS - AUTOMATED METHOD 04/01/2022 12:50 PM EDT [facility] Leukocytes, Urine Negative Negative LAB URINALYSIS - AUTOMATED METHOD 04/01/2022 12:50 PM EDT [facility] Nitrite, Urine Negative Negative LAB URINALYSIS - AUTOMATED METHOD 04/01/2022 12:50 PM EDT [facility] Urine Urine specimen obtained by clean catch procedure / Unknown Non-blood Collection / Unknown 04/01/2022 11:28 AM EDT 04/01/2022 11:28 AM EDT us Francesco Richardson MD LAB URINE ORDERABLES Final Re sult [facility] [address] [place] [id number] * Protein, Random, Urine with Creatinine (04/01/2022 11:28 AM EDT) Protein, Urine 12 mg/dL 04/01/2022 2:37 PM EDT [facility] Creatinine, Urine 101 mg/dL 04/01/2022 2:37 PM EDT [facility] Protein/Creati nine Ratio 0.1 mg/mg Creat 04/01/2022 2:37 PM EDT [facility] Urine Urine specimen obtained by clean catch procedure / Unknown Non-blood Collection / Unknown 04/01/2022 11:28 AM EDT 04/01/2022 11:28 AM EDT us Francesco Richardson MD LAB URINE ORDERABLES Final Re sult [facility] [address] [place] [address] * (ABNORMAL) CBC and Differential (04/01/2022 11:28 AM EDT) WBC Count 5.75 3.70 - 10.30 10*3/uL LAB HEMATOLOGY METHOD 04/01/2022 1:16 PM EDT [facility] RBC Count 4.31(L) 4.60 - 6.10 10*6/uL LAB HEMATOLOGY METHOD 04/01/2022 1:16 PM EDT [facility] HGB 14.0 13.7 - 17.5 g/dL LAB HEMATOLOGY METHOD 04/01/2022 1:16 PM EDT [facility] HCT 41.9 40.0 - 51.0 % LAB HEMATOLOGY METHOD 04/01/2022 1:16 PM EDT [facility] Platelet Count 277 155 - 369 10*3/uL LAB HEMATOLOGY METHOD 04/01/2022 1:16 PM EDT [facility] MCV 97 79 - 98 fL LAB HEMATOLOGY METHOD 04/01/2022 1:16 PM EDT [facility] MCH 32.5(H) 26.0 - 32.0 pg LAB HEMATOLOGY METHOD 04/01/2022 1:16 PM EDT [facility] MCHC 33.4 30.7 - 35.5 g/dL LAB HEMATOLOGY METHOD 04/01/2022 1:16 PM EDT [facility] RDW 13.0 11.5 - 14.5 % LAB HEMATOLOGY METHOD 04/01/2022 1:16 PM EDT [facility] MPV 9.6 8.8 - 12.5 fL LAB HEMATOLOGY METHOD 04/01/2022 1:16 PM EDT [facility] nRBC 0.0 <=0.0 per 100 WBCs LAB HEMATOLOGY METHOD 04/01/2022 1:16 PM EDT [facility] Differential Type Automated LAB HEMATOLOGY METHOD 04/01/2022 1:16 PM EDT [facility] Neutrophils % 62.0 % LAB HEMATOLOGY METHOD 04/01/2022 1:16 PM EDT [facility] Lymphocytes % 21.0 % LAB HEMATOLOGY METHOD 04/01/2022 1:16 PM EDT [facility] Monocytes % 13.0 % LAB HEMATOLOGY METHOD 04/01/2022 1:16 PM EDT [facility] Eosinophils % 2.0 % LAB HEMATOLOGY METHOD 04/01/2022 1:16 PM EDT [facility] Basophils % 1.0 % LAB HEMATOLOGY METHOD 04/01/2022 1:16 PM EDT [facility] Immature Granulocytes % 1.0 % LAB HEMATOLOGY METHOD 04/01/2022 1:16 PM EDT [facility] Neutrophils Absolute 3.60 1.60 - 6.10 10*3/uL LAB HEMATOLOGY METHOD 04/01/2022 1:16 PM EDT [facility] Lymphocytes Absolute 1.19(L) 1.20 - 3.90 10*3/uL LAB HEMATOLOGY METHOD 04/01/2022 1:16 PM EDT [facility] Monocytes Absolute 0.73 0.30 - 0.90 10*3/uL LAB HEMATOLOGY METHOD 04/01/2022 1:16 PM EDT [facility] Eosinophils Absolute 0.14 0.00 - 0.50 10*3/uL LAB HEMATOLOGY METHOD 04/01/2022 1:16 PM EDT [facility] Basophils Absolute 0.05 0.00 - 0.10 10*3/uL LAB HEMATOLOGY METHOD 04/01/2022 1:16 PM EDT [facility] Immature Granulocytes Absolute 0.04 0.00 - 0.06 10*3/uL LAB HEMATOLOGY METHOD 04/01/2022 1:16 PM EDT [facility] Blood Venous blood specimen / Unknown Venipuncture / Unknown 04/01/2022 11:28 AM EDT 04/01/2022 11:29 AM EDT Narrative [facility] - 04/01/2022 1:16 PM EDT Therapeutic decision making should be based on absolute values, rather than percentages. us Francesco Richardson MD LAB BLOOD ORDERABLES Final Re sult [facility] [address] [place] [address] documented in this encounter Visit Diagnoses Diagnosis Stage 3b chronic kidney disease (CMS/HCC)- Primary Vitamin D deficiency documented in this encounter Care Teams Health Care Attorney Relationship Specialty Start Date End Date Lyndon Medina MD [address] [address] PCP - General 10/19/20 03/31/22 documented as of this encounter
--- OUTSIDE RECORDS SUMMARY | 2024-05-14 13:54 | XMS_ITS | Encounter Summary ---
Author Organization Healthcare Address [address] [place] [address] Care Team Providers Care Faculty Physician Name Role Phone Unavailable Primary Care Provider Unavailabl e Encounter Details Date Type Department Care Team (Late Contact Info) Description 09/29/2011 Legacy [facility] Vitals Encounter [facility] OUTPATIENT CONVERSIONS [address] [place] [address] ProviderBg MD [address] [place] [address] Social History Tobacco Use Types Packs/Day [...] - - Weight 101 kg (223 lb) 09/29/2011 3:36 PM EDT Height 167.6 cm (5' 6 ) 09/29/2011 3:36 PM EDT Body Mass Index 35.99 09/29/2011 3:36 PM EDT documented in this encounter Plan of Treatment Upcoming Encounters Date Type Department Care Team (Late Contact Info) Description 11/04/2024 9:40 AM EDT Office Visit [facility] [address] [place] [phone] Christine Deng, IT TECHNICAL SUPPORT SPECIALIST [address] [phone] documented as of this encounter Visit Diagnoses Not on filedocumented in this encounter
--- OUTSIDE RECORDS SUMMARY | 2024-05-14 13:54 | XMS_ITS | Encounter Summary ---
Author Organization Healthcare Address [address] [place] [address] Care Team Providers Care Needle Grinder Name Role Phone Unavailable Primary Care Provider Unavailabl e Encounter Details Date Type Department Care Team (Late Contact Info) Description 12/15/2011 Legacy AEHR Vitals Encounter [facility] OUTPATIENT CONVERSIONS [address] [place] [address] ProviderBg MD [address] [place] [address] Social History Tobacco Use Types Packs/Day [...] Concentration - - Weight 101 kg (223 lb 8 oz) 12/15/2011 3:11 PM E DT Height - - Body Mass Index 36.07 09/29/2011 3:36 PM EDT documented in this encounter Plan of Treatment Upcoming Encounters Date Type Department Care Team (Late st Contact Info) Description 11/04/2024 9:40 AM EDT Office Visit [facility] [address] [place] [phone] Christine Deng, ANALYTICAL LABORATORY TECHNICIAN [address] [phone] documented as of this encounter Visit Diagnoses Not on filedocumented in this encounter
--- OUTSIDE RECORDS SUMMARY | 2024-05-14 13:54 | XMS_ITS | Encounter Summary ---
Author Organization [facility] Address [address] [place] [address] Care Team Providers Care Policy Director Name Role Phone Hilton Maria MD Unavailable Philip Khan MD Primary Care Provider + [phone] Encounter Details Date Type Department Care Team (Latest Contact Info) Description 04/01/2022 Travel Social History Tobacco Use Types Packs/Day [...] Description 11/04/2024 9:40 AM EDT Office Visit [facility] [address] [place] [phone] Christine Deng, ZIPPER SETTER CHAINSTITCH [address] [facility] [address] [place] [address] documented as of this encounter Visit Diagnoses Not on filedocumented in this encounter Additional Health Concerns Assessment Noted Time A fall risk assessment has been complete d for the patient 04/01/2022 9:09 AM EDT documented as of this encounter Care Teams Policy Director Relationship Specialty Start Date End Date Philip Khan MD [address] [place] [address] PCP - General Internal Medicine 04/01/22 Hilton Maria MD [address] [place] [phone] Surgeon Neurosurgery 04/01/22 documented as of this encounter
--- OUTSIDE RECORDS SUMMARY | 2024-05-14 13:54 | XMS_ITS | Encounter Summary ---
Author Organization [facility] Address [address] [place] [address] Care Team Providers Care Paint Grinder Name Role Phone Lyndon Medina MD Primary Care Provider Encounter Details Date Type Department Care Team (Late Contact Info) Description 11/26/2020 [facility] [address] [place] [address] Dental, Provider, DDS [address] [place] [address] Social History Tobacco Use Types Packs/Day Years [...] [address] [place] [phone] Christine Deng, CLAY THROWER [address] [phone] documented as of this encounter Procedures Procedure Name Priority Date/Time Associated Diagnosis Comments EUGENE PALLIATIVE Routine 10/10/1997 12:00 AM EDT 7 INACTIVE - PULPECTOMY Routine 10/10/18 98 12:00 AM EDT EUGENE PALLIATIVE Routine 10/09/1997 12:00 AM EDT documented in this encounter Visit Diagnoses Not on filedocumented in this encounter Care Teams Paint Grinder Relationship Specialty Start Date End Date Lyndon Medina MD [address] [address] PCP - General 10/19/20 03/31/22 documented as of this encounter
--- OUTSIDE RECORDS SUMMARY | 2024-05-14 13:54 | XMS_ITS | Encounter Summary ---
Author Organization Healthcare Address [address] [place] [address] Care Team Providers Care Unit Manager Rn Name Role Phone Unavailable Primary Care Provider Unavailabl e Encounter Details Date Type Department Care Team (Latest Contact Info) Description 12/04/2013 - 12/04/2013 11:59 PM EDT Hospital Encounter [facility] [address] [place] [address] Examination Discharge Disposition: Home or Self Care [...] Description 11/04/2024 9:40 AM EDT Office Visit [facility] [address] [place] [address] Christine Deng, OFFICE SUPPORT [address] [phone] documented as of this encounter Procedures Procedure Name Priority Date/Time Associated Diagnosis Comments XR KNEE RIGHT 3 VIEWS Routine 12/04/2013 12:00 AM EDT Examination documented in this encounter Results * XR Knee Right 3 Views (12/04/2013 12:00 AM EDT) Narrative IMAGING - 05/21/2022 11:37 AM EST This study was performed at an outside facility and has been loaded into the PACS system for reference only. ??This order has been auto-finalized and does not contain a result. us Ju Galo APRN IMG XR PROCEDURES Final Result IMAGING documented in this encounter Visit Diagnoses Diagnosis Examination Unspecified examination documented in this encounter
--- OUTSIDE RECORDS SUMMARY | 2024-05-14 13:54 | XMS_ITS | Encounter Summary ---
Author Organization Healthcare Address [address] [place] [address] Care Team Providers Care Insurance Claims Analyst Name Role Phone Unavailable Primary Care Provider Unavailabl e Encounter Details Date Type Department Care Team (Late Contact Info) Description 02/23/2013 Legacy AEHR Vitals Encounter [facility] OUTPATIENT CONVERSIONS [address] [place] [address] ProviderBg MD [address] [place] [address] Social History Tobacco Use Types Packs/Day [...] - Inhaled Oxygen Concentration - - Weight 102 kg (225 lb) 02/23/2013 2:00 PM EDT Height 167.6 cm (5' 6 ) 02/23/2013 2:00 PM EDT Body Mass Index 36.32 02/23/2013 2:00 PM EDT documented in this encounter Plan of Treatment Upcoming Encounters Date Type Department Care Team (Late Contact Info) Description 11/04/2024 9:40 AM EDT Office Visit [facility] [address] [place] [phone] Christine Deng, SPEECH LANGUAGE PATHOLOGIST ASSISTANT [address] [phone] documented as of this encounter Visit Diagnoses Not on filedocumented in this encounter
--- OUTSIDE RECORDS SUMMARY | 2024-05-14 13:54 | XMS_ITS | Encounter Summary ---
Author Organization Healthcare Address [address] [place] [address] Care Team Providers Care Race Steward Name Role Phone Unavailable Primary Care Provider Unavailabl e Encounter Details Date Type Department Care Team (Late st Contact Info) Description 06/27/2011 4:27 PM EST Hospital Encounter [facility] [address] [place] [address] Wilma Calle MD [address] [place] [phone] Social History Tobacco Use Types Packs/Day Years [...] Description 11/04/2024 9:40 AM EDT Office Visit [facility] [address] [place] [phone] Christine Deng, UI DESIGNER [address] [phone] documented as of this encounter Procedures Procedure Name Priority Date/Time Associated Diagnosis Comments ECG ADULT 06/27/2011 documented in this encounter Results * ECG ADULT (06/27/2011) Narrative 06/27/2011 Ordered by an unspecified provider. us Historical Provider ECG ORDERABLES Final Res ult documented in this encounter Visit Diagnoses Not on filedocumented in this encounter
--- OUTSIDE RECORDS SUMMARY | 2024-05-14 13:54 | XMS_ITS | Encounter Summary ---
Author Organization Healthcare Address [address] [place] [address] Care Team Providers Care Barrer And Tacker Name Role Phone Unavailable Primary Care Provider Unavailabl e Encounter Details Date Type Department Care Team (Late Contact Info) Description 11/04/2012 Legacy AEHR Vitals Encounter [facility] OUTPATIENT CONVERSIONS [address] [place] [address] ProviderBg MD [address] [place] [address] Social History Tobacco Use Types Packs/Day [...] - - Weight 102 kg (225 lb) 11/04/2012 1:32 PM EDT Height - - Body Mass Index 36.32 09/09/2012 3:39 PM EDT documented in this encounter Plan of Treatment Upcoming Encounters Date Type Department Care Team (Late Contact Info) Description 11/04/2024 9:40 AM EDT Office Visit [facility] [address] [place] [phone] Christine Deng, TEST BORE HELPER [address] [phone] (work) documented as of this encounter Visit Diagnoses Not on filedocumented in this encounter
--- OUTSIDE RECORDS SUMMARY | 2024-05-14 13:54 | XMS_ITS | Encounter Summary ---
Author Organization Healthcare Address [address] [place] [address] Care Team Providers Care Cut To Length Operator Name Role Phone Unavailable Primary Care Provider Unavailabl e Encounter Details Date Type Department Care Team (Late Contact Info) Description 01/02/2012 Legacy AEHR Vitals Encounter [facility] OUTPATIENT CONVERSIONS [address] [place] [address] ProviderBg MD [address] [place] [address] Social History Tobacco Use Types Packs/Day [...] - Inhaled Oxygen Concentration - - Weight 100 kg (221 lb) 01/02/2012 10:48 AM EDT Height - - Body Mass Index 35.67 09/29/2011 3:36 PM EDT documented in this encounter Plan of Treatment Upcoming Encounters Date Type Department Care Team (Late Contact Info) Description 11/04/2024 9:40 AM EDT Office Visit [facility] [address] [place] [phone] Christine Deng, BIG DATA ADMIN [address] [phone] (work) documented as of this encounter Visit Diagnoses Not on filedocumented in this encounter
--- OUTSIDE RECORDS SUMMARY | 2024-05-14 13:54 | XMS_ITS | Encounter Summary ---
Author Organization Healthcare Address [address] [place] [address] Care Team Providers Care Liquid Loader Name Role Phone Unavailable Primary Care Provider Unavailabl e Encounter Details Date Type Department Care Team (Late Contact Info) Description 11/12/2011 Legacy AEHR Vitals Encounter [facility] OUTPATIENT CONVERSIONS [address] [place] [address] ProviderBg MD [address] [place] [address] Social History Tobacco Use Types Packs/Day [...] - Inhaled Oxygen Concentration - - Weight 103 kg (226 lb 7 oz) 11/12/2011 11:37 AM EDT Height - - Body Mass Index 36.55 09/29/2011 3:36 PM EDT documented in this encounter Plan of Treatment Upcoming Encounters Date Type Department Care Team (Late st Contact Info) Description 11/04/2024 9:40 AM EDT Office Visit [facility] [address] [place] [phone] Christine Deng, ASSEMBLER HANDBAGS [address] [phone] documented as of this encounter Visit Diagnoses Not on filedocumented in this encounter
--- OUTSIDE RECORDS SUMMARY | 2024-05-14 13:54 | XMS_ITS | Encounter Summary ---
Author Organization Healthcare Address [address] [place] [address] Care Team Providers Care Welt Insole Channeler Name Role Phone Unavailable Primary Care Provider Unavailabl e Encounter Details Date Type Department Care Team (Late Contact Info) Description 05/07/2012 Legacy AEHR Vitals Encounter [facility] OUTPATIENT CONVERSIONS [address] [place] [address] ProviderBg MD [address] [place] [address] Social History Tobacco Use Types Packs/Day [...] - - Weight 103 kg (226 lb 9 oz) 05/07/2012 10:31 AM EST Height - - Body Mass Index 36.57 02/10/2012 7:58 AM EDT documented in this encounter Plan of Treatment Upcoming Encounters Date Type Department Care Team (Late Contact Info) Description 11/04/2024 9:40 AM EDT Office Visit [facility] [address] [place] [phone] Christine Deng, DAMPPROOFER [address] [phone] documented as of this encounter Visit Diagnoses Not on filedocumented in this encounter
--- OUTSIDE RECORDS SUMMARY | 2024-05-14 13:54 | XMS_ITS | Encounter Summary ---
Author Organization Healthcare Address [address] [place] [address] Care Team Providers Care Emergency Room Orderly Name Role Phone Lyndon Medina MD Primary Care Provider [phone] Encounter Details Date Type Department Care Team (Latest Contact Info) Description 07/18/2021 - 07/18/2021 11:59 PM EST Hospital Encounter [facility] [address] [place] [phone] Examination Discharge Disposition: Home or Self Care [...] time. 07/17/2016 ergocalciferol (Vitamin D-2) 1.25 MG (47409 UT) capsule Take 1 capsule (50,000 Units) by mouth 1 (one) time per week. 11/22/2018 gabapentin (Neurontin) 800 MG tablet Take 1 tablet (800 mg) by mouth 3 (three) times a day. 02/23/2018 clonazePAM (KlonoPIN) 0.5 MG tablet Take 0.5 mg by mouth 2 (two) times a day if needed. 01/07/2019 02/25/2023 glipiZIDE XL (Glucotrol XL) 10 MG 24 hr tablet 06/06/2021 HYDROcodone-aceta minophen (Lane) 5-325 MG tablet 1 tab(s) orally every 6 hours, As Needed -PRN pain 10/27/2019 04/25/2022 documented as of this encounter Plan of Treatment Upcoming Encounters Date Type Department Care Team (Late st Contact Info) Description 11/04/2024 9:40 AM EDT Office Visit [facility] [address] [place] [phone] Christine Deng, REIMBURSEMENT LIAISON [address] [facility] [address] [place] [address] documented as of this encounter Procedures Procedure Name Priority Date/Time Associated Diagnosis Comments MR CERVICAL SPINE WO IV CONTRAST Routine 07/18/2021 12:00 AM EST Examination documented in this encounter Results * MR Cervical Spine wo IV Contrast (07/18/2021 12:00 AM EST) Narrative IMAGING - 05/21/2022 11:23 AM EST This study was performed at [...] not contain a result. us Ju Galo REIMBURSEMENT LIAISON IMG MRI PROCEDURES Allyn hernández Result IMAGING documented in this encounter Visit Diagnoses Diagnosis Examination Unspecified examination documented in this encounter Care Teams Emergency Room Orderly Relationship Specialty Start Date End Date Lyndon Medina MD [address] [address] PCP - General 10/19/20 03/31/22 documented as of this encounter
--- OUTSIDE RECORDS SUMMARY | 2024-05-14 13:54 | XMS_ITS | Encounter Summary ---
Author Organization Healthcare Address [address] [place] [address] Care Team Providers Care Health Education Aide Name Role Phone Hilton Maria MD Unavailable Philip Khan MD Primary Care Provider + [phone] Encounter Details Date Type Department Care Team (Latest Contact Info) Description 04/01/2022 11:30 AM EDT Clinical Support [place] [facility] [address], [address] [place] [phone] Neck pain; Cervical disc disorder at C5-C6 [...] Description 11/04/2024 9:40 AM EDT Office Visit [facility] [address] [place] [address] IshChristine, TROLLEY CAR MECHANIC [address] [address] documented as of this encounter Procedures Procedure Name Priority Date/Time Associated Diagnosis Comments APTT Routine 04/01/2022 11:28 AM EDT Neck pain Cervical disc disorder at C5-C6 level with radiculopathy PROTHROMBIN TIME(PT) / INR Routine 04/01/2022 11:28 AM EDT Neck pain Cervical disc disorder at C5-C6 level with radiculopathy HEMOGLOBIN A1C Routine 04/01/2022 11:28 AM EDT Neck pain Cervical disc disorder at C5-C6 level with radiculopathy COMPREHENSIVE METABOLIC PANEL, PLASMA Routine 04/01/2022 11:28 AM EDT Neck pain Cervical disc disorder at C5-C6 level with radiculopathy documented in this encounter Results * (ABNORMAL) Comprehensive metabolic panel (04/01/2022 11:28 AM EDT) Glucose, Plasma 163(H) 74 - 99 mg/dL 04/01/2022 1:38 PM EDT [facility] BUN, Plasma 32(H) 7 - 21 mg/dL 04/01/2022 1:38 PM EDT [facility] Creatinine, Plasma 1.71(H) 0.80 - 1.30 mg/dL 04/01/2022 1:38 PM EDT [facility] BUN/Creatinine Ratio 19 04/01/2022 1:38 PM EDT [facility] Sodium, Plasma 135(L) 136 - 145 mmol/L 04/01/2022 1:38 PM EDT [facility] Potassium, Plasma 4.9(H) 3.7 - 4.8 mmol/L 04/01/2022 1:38 PM EDT [facility] Comment:Reference range for Serum potassium is 0.2 to 0.5 mmol/L higher than Plasma range. Chloride, Plasma 99 97 - 107 mmol/L 04/01/2022 1:38 PM EDT [facility] CO2, Plasma 24 22 - 29 mmol/L 04/01/2022 1:38 PM EDT [facility] Anion Gap 12 6 - 16 mmol/L 04/01/2022 1:38 PM EDT [facility] Total Calcium, Plasma 9.7 8.9 - 10.2 mg/dL 04/01/2022 1:38 PM EDT [facility] Total Protein 7.2 6.3 - 7.9 g/dL 04/01/2022 1:38 PM EDT [facility] Albumin, Plasma 4.9 3.5 - 5.2 g/dL 04/01/2022 1:38 PM EDT [facility] AST, Plasma 16 12 - 40 U/L 04/01/2022 1:38 PM EDT [facility] ALT, Plasma 24 11 - 41 U/L 04/01/2022 1:38 PM EDT [facility] Alkaline Phosphatase, Plasma 76 40 - 115 U/L 04/01/2022 1:38 PM EDT [facility] Total Bilirubin, Plasma 0.8 0.2 - 1.1 mg/dL 04/01/2022 1:38 PM EDT [facility] eGFRcr 45.5 mL/min/1.7 3m*2 04/01/2022 1:38 PM EDT [facility] Comment: Reported eGFRcr in mL/min/1.73m2 is based the CKD-EPI 2021 equation that does not use a race coefficient. Effective 01/01/22 our laboratory changed the eGFR calculation to the CKD-EPI 2021 equation from the previously reported eGFR, based on the MDRD equation. ??For comparisons between the two equations, please see laboratory website: ??[email or web address] Blood Venous blood specimen / Unknown Venipuncture / Unknown 04/01/2022 11:28 AM EDT 04/01/2022 11:29 AM EDT us Hilton Maria MD LAB BLOOD ORDERA BLES Final Result [facility] [address] [place] [address] * Protime-INR (04/01/2022 11:28 AM EDT) Prothrombin [...] INR 2.5 to 3.[address] ? INR 2.5 to 3.5 us Hilton Maria MD LAB BLOOD ORDERA BLES Final Result Performing Organization Address [facility] de Phone Number [facility] [address] [place] [address] * APTT (04/01/2022 11:28 AM EDT) aPTT 27 25 - 35 sec LAB COAGULATION METHOD 04/01/2022 1:08 PM EDT [facility] Blood Venous blood specimen / Unknown Venipuncture / Unknown 04/01/2022 11:28 AM EDT 04/01/2022 11:29 AM EDT Hilton Maria MD LAB BLOOD ORDERA BLES Final Result Performing Organization Address City/[facility] Co de Phone Number [facility] [address] [place] [address] * (ABNORMAL) Hemoglobin A1c (04/01/2022 11:28 AM [...] Adults <6.0% Children and Adolescents <7.5% Source: ??[place] [employer]. Standards of medical care in diabetes,2017. Diabetes Care.2017:40 (suppl 1):S1-S135. HbA1c assay performed by an ion-exchange chromatography method that is certified traceable to the DCCT. Hilton Maria MD LAB BLOOD ORDERA BLES Final Result [facility] [address] [place] [address] documented in this encounter Visit Diagnoses Diagnosis Neck pain Cervicalgia Cervical disc disorder at C5-C6 level with radiculopathy documented in this encounter Additional Health Concerns Assessment Noted Time A fall risk assessment has been complete d for the patient 04/01/2022 9:09 AM EDT documented as of this encounter Care Teams Health Education Aide Relationship Specialty Start Date End Date Philip Khan MD [address] [place] [address] PCP - General Internal Medicine 04/01/22 Hilton Maria MD [address] [place] [address] Surgeon Neurosurgery 04/01/22 documented as of this encounter
--- OUTSIDE RECORDS SUMMARY | 2024-05-14 13:54 | XMS_ITS | Encounter Summary ---
Author Organization [facility] Address [address] [place] [address] Care Team Providers Care Coin Machine Service Repairer Name Role Phone Unavailable Primary Care Provider Unavailabl e Encounter Details Date Type Department Care Team (Late st Contact Info) Description 09/09/2012 [facility] Vitals Encounter [facility] OUTPATIENT CONVERSIONS [address] [place] [address] ProviderBg MD [address] [place] [address] Social History Tobacco Use Types Packs/Day [...] Oxygen Concentration - - Weight 102 kg (224 lb 0.2 oz) 09/09/2012 3:39 PM EDT Height 167.6 cm (5' 6 ) 09/09/2012 3:39 PM EDT Body Mass Index 36.16 09/09/2012 3:39 PM EDT documented in this encounter Plan of Treatment Upcoming Encounters Date Type Department Care Team (Late st Contact Info) Description 11/04/2024 9:40 AM EDT Office Visit [facility] [address] [place] [phone] Christine Deng, TECHNICAL ACCOUNT EXECUTIVE [address] [address] documented as of this encounter Visit Diagnoses Not on filedocumented in this encounter
--- OUTSIDE RECORDS SUMMARY | 2024-05-14 13:54 | XMS_ITS | Encounter Summary ---
Author Organization Healthcare Address [address] [place] [address] Care Team Providers Care Pipe Processor Name Role Phone Unavailable Primary Care Provider Unavailabl e Encounter Details Date Type Department Care Team (Late Contact Info) Description 12/03/2016 [facility] AEHR Vitals Encounter [facility] OUTPATIENT CONVERSIONS [address] [place] [address] ProviderBg MD [address] [place] [address] Social History Tobacco Use Types Packs/Day [...] - Inhaled Oxygen Concentration - - Weight 85.5 kg (188 lb 7.9 oz) 12/03/2016 3:05 P M EDT Height - - Body Mass Index 31.37 10/06/2016 8:45 AM EDT documented in this encounter Plan of Treatment Upcoming Encounters Date Type Department Care Team (Late Contact Info) Description 11/04/2024 9:40 AM EDT Office Visit [facility] [address] [place] [phone] Christine Deng, STRATEGY ASSOCIATE [address] [address] documented as of this encounter Visit Diagnoses Not on filedocumented in this encounter
--- OUTSIDE RECORDS SUMMARY | 2024-05-14 13:54 | XMS_ITS | Encounter Summary ---
Author Organization Healthcare Address [address] [place] [address] Care Team Providers Care Tissue Recovery Technician Name Role Phone Hilton Maria MD Unavailable Philip Khan MD Primary Care Provider + [phone] Encounter Details Date Type Department Care Team (Latest Contact Info) Description 04/01/2022 10:33 AM EDT - 04/01/2022 11:59 PM EDT Hospital Encounter [place] [facility] [address], [address] [place] [address] Neck pain; Cervical disc disorder at C5-C6 level with radiculopathy Discharge Disposition: Home or Self Care Social [...] PM EDT documented as of this encounter Medications at Time of Discharge albuterol 108 (90 Base) MCG/ACT inhaler Inhale 2 puffs if needed. 03/27/2017 atorvastatin (Lipitor) 20 MG tablet 1 (one) time each day at the same time. 09/12/2021 clopidogrel (Plavix) 75 MG tablet Take 1 tablet (75 mg) by mouth 1 (one) time each day at the same time. 07/17/2016 ergocalciferol (Vitamin D-2) 1.25 MG (12962 UT) capsule Take 1 capsule (50,000 Units) [...] hours. 09/12/2021 OneTouch Ultra test strip 03/07/2022 ranolazine (Ranexa) 1000 MG 12 hr tablet [...] mouth 1 (one) time each day. 03/05/2022 clonazePAM (KlonoPIN) 0.5 MG tablet Take 0.5 mg by mouth 2 (two) times a day if needed. 01/07/2019 02/25/2023 famotidine (Pepcid) 20 MG tablet Take 20 mg by mouth 1 (one) time each day. 09/12/2021 04/25/2022 glipiZIDE XL (Glucotrol XL) 10 MG 24 hr tablet 06/06/2021 HYDROcodone-aceta minophen (Bayside) 5-325 MG tablet 1 tab(s) orally every 6 hours, As Needed -PRN pain 10/27/2019 04/25/2022 isosorbide dinitrate (Isordil) 10 MG tablet 1 (one) time each day. 04/25/2022 oxyCODONE (Roxicodone) 10 MG immediate release tablet 02/05/2022 04/07/2022 documented as of this encounter Plan of Treatment Upcoming Encounters Date Type Department Care Team (Late st Contact Info) Description 11/04/2024 9:40 AM EDT Office Visit [facility] [address] [place] [address] Christine Deng, DRUG SAFETY SPECIALIST [address] [address] documented as of this encounter Procedures Procedure Name Priority Date/Time Associated Diagnosis Comments XR CHEST 2 VIEWS Routine 04/01/2022 10:4 9 AM EDT Neck pain Cervical disc disorder at C5-C6 level with radiculopathy documented in this encounter Results * XR Chest 2 Views (04/01/2022 10:49 AM EDT) Anatomical Region Laterality Modality Chest Digital Radiogra phy Impressions 04/01/2022 12:42 PM EDT No acute findings CRITICAL RESULT: ?? No. COMMUNICATION: Per this written report. Dictated by Sita Salamanca MD on 04/01/2022 12:34 PM Signed by Sita Salamanca MD on 04/01/2022 12:42 PM Narrative 04/01/2022 12:42 PM EDT Exam/Procedure: XR CHEST 2 VIEWS ordered by HILTON MARIA [id number] CLINICAL INDICATION: Pre-op TECHNIQUE: XR CHEST 2 VIEWS COMPARISON: March 02, 2019 FINDINGS: Subpleural bullae within left upper lobe. Scarring within left lower lobe. No acute airspace opacities. No pleural effusions. No pneumothorax or pneumomediastinum. Procedure Note Sita Salamanca MD - 04/01/2022 Exam/Procedure: XR CHEST 2 VIEWS ordered by HILTON [id number] CLINICAL INDICATION: Pre-op TECHNIQUE: XR CHEST 2 VIEWS COMPARISON: March 02, 2019 FINDINGS: Subpleural bullae within left upper lobe. Scarring within left lower lobe.No acute airspace opacities. No pleural effusions. No pneumothorax orpneumomediastinum. IMPRESSION: No acute findings CRITICAL RESULT: No. COMMUNICATION: Per this written report. Dictated by Sita Salamanca MD on 04/01/2022 12:34 PM Signed by Sita Salamanca MD on 04/01/2022 12:42 PM Hilton Maria MD IMG XR PROCEDURE S Final Result documented in this encounter Visit Diagnoses Diagnosis Neck pain Cervicalgia Cervical disc disorder at C5-C6 level with radiculopathy documented in this encounter Additional Health Concerns Assessment Noted Time A fall risk assessment has been complete d for the patient 04/01/2022 9:09 AM EDT documented as of this encounter Care Teams Tissue Recovery Technician Relationship Specialty Start Date End Date Philip Khan MD [address] [place], [place] [address] PCP - General Internal Medicine 04/01/22 Hilton Maria MD [address] [place] [address] Surgeon Neurosurgery 04/01/22 documented as of this encounter
--- OUTSIDE RECORDS SUMMARY | 2024-05-14 13:54 | XMS_ITS | Encounter Summary ---
Author Organization Healthcare Address [address] [place] [address] Care Team Providers Care Donor Processor Name Role Phone Unavailable Primary Care Provider Unavailabl e Encounter Details Date Type Department Care Team (Late Contact Info) Description 12/30/2011 [facility] AEHR Vitals Encounter [facility] OUTPATIENT CONVERSIONS [address] [place] [address] ProviderBg MD [address] [place] [address] Social History Tobacco Use Types Packs/Day [...] - Inhaled Oxygen Concentration - - Weight 99.1 kg (218 lb 9 oz) 12/30/2011 9:08 AM EDT Height - - Body Mass Index 35.28 09/29/2011 3:36 PM EDT documented in this encounter Plan of Treatment Upcoming Encounters Date Type Department Care Team (Late st Contact Info) Description 11/04/2024 9:40 AM EDT Office Visit [facility] [address] [place] [phone] Christine Deng, BABY STROLLER RENTAL CLERK [address] [address] documented as of this encounter Visit Diagnoses Not on filedocumented in this encounter
--- OUTSIDE RECORDS SUMMARY | 2024-05-14 13:54 | XMS_ITS | Encounter Summary ---
Author Organization Healthcare Address [address] [id number] Care Team Providers Care Occupational Health Technician Name Role Phone Hilton Maria MD Unavailable Philip Khan MD Primary Care Provider + [phone] Encounter Details Date Type Department Care Team (Late st Contact Info) Description 04/01/2022 Orders Only [place] [facility] [address], [address] [place] [address] Ju Galo, PROJECTION TECHNICIAN [address] [place] [address] Preop examination (Primary Dx) Social History Tobacco Use Types [...] Description 11/04/2024 9:40 AM EDT Office Visit [facility] [address] [place] [phone] Christine Deng, PROJECTION TECHNICIAN [address] [facility] [address] [place] [phone] documented as of this encounter Visit Diagnoses Diagnosis Preop examination- Primary Unspecified pre-operative examination documented in this encounter Additional Health Concerns Assessment Noted Time A fall risk assessment has been complete d for the patient 04/01/2022 9:09 AM EDT documented as of this encounter Care Teams Occupational Health Technician Relationship Specialty Start Date End Date Philip Khan MD [address] [place] [address] PCP - General Internal Medicine 04/01/22 Hilton Maria MD [address] [facility] [address] [place] [phone] Surgeon Neurosurgery 04/01/22 documented as of this encounter
--- OUTSIDE RECORDS SUMMARY | 2024-05-14 13:54 | XMS_ITS | Encounter Summary ---
Author Organization Healthcare Address [address] [place] [address] Care Team Providers Care Certified Ophthalmic Assistant Name Role Phone Unavailable Primary Care Provider Unavailabl e Encounter Details Date Type Department Care Team (Latest Contact Info) Description 01/18/2020 - 01/18/2020 11:59 PM EDT Hospital Encounter [facility] [address] [place] [address] Examination Discharge Disposition: Home or Self Care [...] time. 07/17/2016 ergocalciferol (Vitamin D-2) 1.25 MG (77419 UT) capsule Take 1 capsule (50,000 Units) by mouth 1 (one) time per week. 11/22/2018 gabapentin (Neurontin) 800 MG tablet Take 1 tablet (800 mg) by mouth 3 (three) times a day. 02/23/2018 clonazePAM (KlonoPIN) 0.5 MG tablet Take 0.5 mg by mouth 2 (two) times a day if needed. 01/07/2019 02/25/2023 HYDROcodone-aceta minophen (Casar) 5-325 MG tablet 1 tab(s) orally every 6 hours, As Needed -PRN pain 10/27/2019 04/25/2022 documented as of this encounter Plan of Treatment Upcoming Encounters Date Type Department Care Team (Late st Contact Info) Description 11/04/2024 9:40 AM EDT Office Visit [facility] [address] [place] [address] Christine Deng, OPHTHALMOLOGY SURGICAL TECHNICIAN [address] [facility] [address] [place] [address] documented as of this encounter Procedures Procedure Name Priority Date/Time Associated Diagnosis Comments MR KNEE RIGHT WO IV CONTRAST Routine 01/18/2020 12:00 AM EDT Examination documented in this encounter Results * MR Knee Right wo IV Contrast (01/18/2020 12:00 AM EDT) Narrative IMAGING - 05/21/2022 11:36 AM EST This study was performed at an outside facility and has been loaded into the PACS system for reference only. ??This order has been auto-finalized and does not contain a result. us Ju Galo OPHTHALMOLOGY SURGICAL TECHNICIAN IMG MRI PROCEDURES Allyn hernández Result IMAGING documented in this encounter Visit Diagnoses Diagnosis Examination Unspecified examination documented in this encounter
--- OUTSIDE RECORDS SUMMARY | 2024-05-14 13:54 | XMS_ITS | Encounter Summary ---
Author Organization Healthcare Address [address] [place] [address] Care Team Providers Care Shipwright Helper Name Role Phone Unavailable Primary Care Provider Unavailabl e Encounter Details Date Type Department Care Team (Late Contact Info) Description 09/18/2011 [facility] AEHR Vitals Encounter [facility] OUTPATIENT CONVERSIONS [address] [place] [address] ProviderBg MD [address] [place] [address] Social History Tobacco Use Types Packs/Day [...] - - Weight 100 kg (221 lb) 09/18/2011 2:41 PM EDT Height 167.6 cm (5' 6 ) 09/18/2011 2:41 PM EDT Body Mass Index 35.67 09/18/2011 2:41 PM EDT documented in this encounter Plan of Treatment Upcoming Encounters Date Type Department Care Team (Late Contact Info) Description 11/04/2024 9:40 AM EDT Office Visit [facility] [address] [place] [phone] Christine Deng, SQUEEZER OPERATOR [address] [address] documented as of this encounter Visit Diagnoses Not on filedocumented in this encounter
--- OUTSIDE RECORDS SUMMARY | 2024-05-14 13:54 | XMS_ITS | Encounter Summary ---
Author Organization [facility] Address [address] [place] [address] Care Team Providers Care Screen Vent Binder Name Role Phone Unavailable Primary Care Provider Unavailabl e Encounter Details Date Type Department Care Team (Late st Contact Info) Description 01/26/2017 [facility] AEHR Vitals Encounter [facility] OUTPATIENT CONVERSIONS [address] [place] [address] ProviderBg MD [address] [place] [address] Social History Tobacco Use Types Packs/Day [...] - Inhaled Oxygen Concentration - - Weight 86.6 kg (191 lb 0.1 oz) 01/26/2017 9:50 A M EDT Height 165.1 cm (5' 5 ) 01/26/2017 9:46 AM EDT Body Mass Index 31.79 01/26/2017 9:46 AM EDT documented in this encounter Plan of Treatment Upcoming Encounters Date Type Department Care Team (Late st Contact Info) Description 11/04/2024 9:40 AM EDT Office Visit [facility] [address] [place] [phone] Christine Deng, JOB BOSS [address] [phone] documented as of this encounter Visit Diagnoses Not on filedocumented in this encounter
--- OUTSIDE RECORDS SUMMARY | 2024-05-14 13:54 | XMS_ITS | Encounter Summary ---
Author Organization [facility] Address [address] [place] [address] Care Team Providers Care Chemistry Lecturer Name Role Phone Unavailable Primary Care Provider Unavailabl e Encounter Details Date Type Department Care Team (Late st Contact Info) Description 01/01/2016 [facility] AEHR Vitals Encounter [facility] OUTPATIENT CONVERSIONS [address] [place] [address] ProviderBg MD [address] [place] [address] Social History Tobacco Use Types Packs/Day [...] - - Weight 101 kg (222 lb 0.1 oz) 01/01/2016 2:21 PM EDT Height 167.6 cm (5' 6 ) 01/01/2016 2:21 PM EDT Body Mass Index 35.83 01/01/2016 2:21 PM EDT documented in this encounter Plan of Treatment Upcoming Encounters Date Type Department Care Team (Late st Contact Info) Description 11/04/2024 9:40 AM EDT Office Visit [facility] [address] [place] [phone] Christine Deng, HIGH RISK CASE MANAGER [address] [address] documented as of this encounter Visit Diagnoses Not on filedocumented in this encounter
--- OUTSIDE RECORDS SUMMARY | 2024-05-14 13:55 | XMS_ITS | Data Portability ---
Author Organization [facility] ADMIN Address [address] [place] [id number] Care Team Providers Care Glue Size Machine Operator Name Role Phone KYLER HOLLOWAY Primary Care Provider [phone] Assessment No assessment recorded. Plan of Treatment Reminders Order Date Submit Date Provider Last Modified By Organization Details Last Modified Time Details Appointments Establish ed Visit 15 min 2023 11:00A M Kyler Holloway MD Not available Not available Not available Lab HbA1c (hemoglob in A1c), blood 2023 024 [email or web address], [address], [place], [address], 11/27/2023 18:41:18 glucose, fingersti ck, blood 2023 024 [email or web address] [facility], [address], [place], [address], 11/27/2023 18:41:18 HbA1c (hemoglob in A1c), blood 2023 024 [facility], [address], [address], [place], [address], 01/29/2024 07:13:56 CMP, serum or plasma 2023 024 [facility], [address], [address], [place], [address], 01/29/2024 07:13:55 CBC w/ auto diff 2023 024 [facility], [address], [address], [place], [address], 01/29/2024 07:13:54 TSH + free T4, serum 2023 024 [facility], [address], [address], [place], [address], 01/29/2024 07:13:53 albumin/c reatinine , mass ratio, urine 2023 024 [facility], [address], [address], [place], [address], 01/29/2024 07:13:56 lipid panel, serum 2023 024 [facility], [address], [address], [place], [address], 01/29/2024 07:13:55 CBC w/ auto diff 2023 024 [facility], [address], [address], [place], [address], 04/12/2024 08:21:50 CMP, serum or plasma 2023 024 [facility], [address], [address], [place], [address], 04/12/2024 08:21:48 amylase + lipase, serum 2023 024 [facility], [address], [address], [place], [address], 04/12/2024 08:21:51 Referral nephrolog ist referral - 63 yo BM with h/o poorly controlle d diabetes and acute change in renal status resulting in Stage 3b CKD 2023 024 [facility], [address], [place], [address], 04/15/2024 13:43:21 Procedures None recorded. Surgeries None recorded. Imaging None recorded. Medication Orders Lantus Solostar U-100 Insulin 100 unit/mL (3 mL) subcutane ous pen [address] [facility], [address], [place], [address], 10/27/2023 22:30:50 amitripty line 50 mg tablet [address] [facility], [address], [place], [address], 10/27/2023 16:26:30 doxepin 10 mg capsule [address] [facility], [address], [place], [address], 02/11/2024 17:11:31 Mounjaro 2.5 mg/0.5 mL subcutane ous pen injector [address] [facility], [address], [place], [address], 02/11/2024 17:09:45 Patient TargetsNo targets recorded. Patient InstructionsNo instructions recorded. 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 Referral for ronic kidney disease stage 3B 63 yo BM with h/o poorly controlled diabetes and acute change in renal status resulting in Stage 3b CKD Referring Physician: Kyler Holloway, Family Medicine, Encounter Date: 02/11/2024 Results Created Date Observation Date Name Description Value Unit Range Abnormal Flag Note LastModifiedBy Organization Detail LastModifiedTime 10/06/19 24 10/07/2023 TSH+F REE T4 TSH 1.020 uIU/m L 0.450- 4.500 Not Available [facility] ([facility]) [address] [facility], [place], [address], 10/07/2023 07:13:24 10/06/19 24 10/07/2023 TSH+F REE T4 T4,free(dire ct) 2.00 NG/dL 0.82-1 .77 above high normal Not Available [facility] ([facility]) [address] [facility], [place], [address], 10/07/2023 07:13:24 10/06/19 24 10/07/2023 CBC WITH DIFFE RENTI AL/PL ATELE T WBC 5.9 x10e3 /uL 3.4-10 .8 Not Available [facility] ([facility]) [address] [facility], [place], [address], 10/07/2023 07:13:25 10/06/19 24 10/07/2023 CBC WITH DIFFE RENTI AL/PL ATELE T RBC 4.25 x10e6 /uL 4.14-5 .80 Not Available [facility] ([facility]) [address] [facility], [place], [address], 10/07/2023 07:13:25 10/06/19 24 10/07/2023 CBC WITH DIFFE RENTI AL/PL ATELE T hemoglobin 13.4 g/dL 13.0-1 7.7 Not Available [facility] ([facility]) [address] [place], [address], 10/07/2023 07:13:25 10/06/1910/07/2023 CBC WITH DIFFE RENTI AL/PL ATELE T hematocrit 39.2 % 37.5-5 1.0 Not Available [facility] ([facility]) [address] [facility], [place], [address], 10/07/2023 07:13:25 10/06/19 24 10/07/2023 CBC WITH DIFFE RENTI AL/PL ATELE T MCV 92 fL 79-97 Not Available [facility] ([facility]) [address] [facility], [place], [address], 10/07/2023 07:13:25 10/06/19 24 10/07/2023 CBC WITH DIFFE RENTI AL/PL ATELE T MCH 31.5 pg 26.6-3 3.0 Not Available [facility] ([facility]) [address] [facility], [place], [address], 10/07/2023 07:13:25 10/06/19 24 10/07/2023 CBC WITH DIFFE RENTI AL/PL ATELE T MCHC 34.2 g/dL 31.5-3 5.7 Not Available [facility] ([facility]) [address] [facility], [place], [address], 10/07/2023 07:13:25 10/06/19 24 10/07/2023 CBC WITH DIFFE RENTI AL/PL ATELE T RDW 13.1 % 11.6-1 5.4 Not Available [facility] ([facility]) [address] [place], [address], 10/07/2023 07:13:25 10/06/19 24 10/07/2023 CBC WITH DIFFE RENTI AL/PL ATELE T platelets 267 x10e3 /uL 150-45 0 Not Available [facility] ([facility]) [address] [facility], [place], [address], 10/07/2023 07:13:25 10/06/19 24 10/07/2023 CBC WITH DIFFE RENTI AL/PL ATELE T neutrophils 63 % not estab. Not Available [facility] ([facility]) [address] [place], [address], 10/07/2023 07:13:25 10/06/19 24 10/07/2023 CBC WITH DIFFE RENTI AL/PL ATELE T lymphs 23 % not estab. Not Available [facility] ([facility]) [address] [facility], [place], [address], 10/07/2023 07:13:25 10/06/19 24 10/07/2023 CBC WITH DIFFE RENTI AL/PL ATELE T monocytes 10 % not estab. Not Available [facility] ([facility]) [address] [facility], [place], [address], 10/07/2023 07:13:25 10/06/19 24 10/07/2023 CBC WITH DIFFE RENTI AL/PL ATELE T eos 2 % not estab. Not Available [facility] ([facility]) [address] [place], [address], 10/07/2023 07:13:25 10/06/19 24 10/07/2023 CBC WITH DIFFE RENTI AL/PL ATELE T basos 1 % not estab. Not Available [facility] ([facility]) [address] [facility], [place], [address], 10/07/2023 07:13:25 10/06/19 24 10/07/2023 CBC WITH DIFFE RENTI AL/PL ATELE T immature cells PRESS SMITH HELPER Not Available [facility] ([facility]) [address] [place], [address], 10/07/2023 07:13:25 10/06/19 24 10/07/2023 CBC WITH DIFFE RENTI AL/PL ATELE T neutrophils (absolute) 3.7 x10e3 /uL 1.4-7. 0 Not Available [facility] ([facility]) [address] [place], [address], 10/07/2023 07:13:25 10/06/19 24 10/07/2023 CBC WITH DIFFE RENTI AL/PL ATELE T lymphs (absolute) 1.4 x10e3 /uL 0.7-3. 1 Not Available [facility] ([facility]) [address] [place], [address], 10/07/2023 07:13:25 10/06/19 24 10/07/2023 CBC WITH DIFFE RENTI AL/PL ATELE T monocytes(ab solute) 0.6 x10e3 /uL 0.1-0. 9 Not Available [facility] ([facility]) [address] [facility], [place], [address], 10/07/2023 07:13:25 10/06/19 24 10/07/2023 CBC WITH DIFFE RENTI AL/PL ATELE T eos (absolute) 0.1 x10e3 /uL 0.0-0. 4 Not Available [facility] ([facility]) [address] [facility], [place], [address], 10/07/2023 07:13:25 10/06/19 24 10/07/2023 CBC WITH DIFFE RENTI AL/PL ATELE T baso (absolute) 0.1 x10e3 /uL 0.0-0. 2 Not Available [facility] ([facility]) [address] [facility], [place], [address], 10/07/2023 07:13:25 10/06/19 24 10/07/2023 CBC WITH DIFFE RENTI AL/PL ATELE T immature granulocytes 1 % not estab. Not Available [facility] ([facility]) [address] [facility], [place], [address], 10/07/2023 07:13:25 10/06/19 24 10/07/2023 CBC WITH DIFFE RENTI AL/PL ATELE T immature grans (abs) 0.0 x10e3 /uL 0.0-0. 1 Not Available [facility] ([facility]) [address] [facility], [place], [address], 10/07/2023 07:13:25 10/06/19 24 10/07/2023 CBC WITH DIFFE RENTI AL/PL ATELE T NRBC PRESS SMITH HELPER Not Available [facility] ([facility]) [address] [facility], [place], [address], 10/07/2023 07:13:25 10/06/19 24 10/07/2023 CBC WITH DIFFE YOAN AL/JOHN [facility]ante hematology comments: PRESS SMITH HELPER Not Available [facility] ([facility]) [address] [facility], [place], [address], 10/07/2023 07:13:25 10/06/19 24 10/07/2023 COMP. METAB OLIC PANEL (14) glucose 290 mg/dL 70-99 above high normal Not Available [facility] ([facility]) [address] [place] [place], [address], 10/07/2023 07:13:26 10/06/19 24 10/07/2023 COMP. METAB OLIC PANEL (14) BUN 24 mg/dL 8-27 Not Available [facility] ([facility]) [address] [facility], [place], [address], 10/07/2023 07:13:26 10/06/19 24 10/07/2023 COMP. METAB OLIC PANEL (14) creatinine 1.36 mg/dL 0.76-1 .27 above high normal Not Available [facility] ([facility]) [address] [facility], [place], [address], 10/07/2023 07:13:26 10/06/19 24 10/07/2023 COMP. METAB OLIC PANEL (14) eGFR 60 mL/mi n/1.7 3 >59 Not Available [facility] ([facility]) [address] [facility] [place], [address], 10/07/2023 07:13:26 10/06/19 24 10/07/2023 COMP. METAB OLIC PANEL (14) BUN/creatini ne ratio 18 10-24 Not Available [facility] ([facility]) [address] [place] [place], [address], 10/07/2023 07:13:26 10/06/19 24 10/07/2023 COMP. METAB OLIC PANEL (14) sodium 137 mmol/ L 134-14 4 Not Available [facility] ([facility]) [address] [place], [address], 10/07/2023 07:13:26 10/06/19 24 10/07/2023 COMP. METAB OLIC PANEL (14) potassium 4.3 mmol/ L 3.5-5. 2 Not Available [facility] ([facility]) [address] [facility], [place], [address], 10/07/2023 07:13:26 10/06/19 24 10/07/2023 COMP. METAB OLIC PANEL (14) chloride 102 mmol/ L 96-106 Not Available [facility] ([facility]) [address] [facility], [place], [address], 10/07/2023 07:13:26 10/06/19 24 10/07/2023 COMP. METAB OLIC PANEL (14) carbon dioxide, total 20 mmol/ L 20-29 Not Available [facility] ([facility]) [address] [place], [address], 10/07/2023 07:13:26 10/06/19 24 10/07/2023 COMP. METAB OLIC PANEL (14) calcium 10.0 mg/dL 8.6-10 .2 Not Available [facility] ([facility]) [address] [facility], [place], [address], 10/07/2023 07:13:26 10/06/19 24 10/07/2023 COMP. METAB OLIC PANEL (14) protein, total 6.7 g/dL 6.0-8. 5 Not Available [facility] ([facility]) [address] [place], [address], 10/07/2023 07:13:26 10/06/19 24 10/07/2023 COMP. METAB OLIC PANEL (14) albumin 4.6 g/dL 3.8-4. 9 Not Available [facility] ([facility]) [address] [place], [address], 10/07/2023 07:13:26 10/06/19 24 10/07/2023 COMP. METAB OLIC PANEL (14) globulin, total 2.1 g/dL 1.5-4. 5 Not Available [facility] ([facility]) [address] [place], [address], 10/07/2023 07:13:26 10/06/19 24 10/07/2023 COMP. METAB OLIC PANEL (14) A/G ratio 2.2 1.2-2. 2 Not Available [facility] ([facility]) [address] [facility], [place], [address], 10/07/2023 07:13:26 10/06/19 24 10/07/2023 COMP. METAB OLIC PANEL (14) bilirubin, total 0.8 mg/dL 0.0-1. 2 Not Available [facility] ([facility]) [address] [place], [address], 10/07/2023 07:13:26 10/06/19 24 10/07/2023 COMP. METAB OLIC PANEL (14) alkaline phosphatase 100 IU/L 44-121 Not Available [facility] ([facility]) [address] [place], [address], 10/07/2023 07:13:26 10/06/19 24 10/07/2023 COMP. METAB OLIC PANEL (14) AST (SGOT) 14 IU/L 0-40 Not Available [facility] ([facility]) [address] [place], [address], 10/07/2023 07:13:26 10/06/19 24 10/07/2023 COMP. METAB OLIC PANEL (14) ALT (SGPT) 18 IU/L 0-44 Not Available [facility] ([facility]) [address] [facility], [place], [address], 10/07/2023 07:13:26 10/06/19 24 10/07/2023 LIPID PANEL cholesterol, total 160 mg/dL 100-19 9 Not Available [facility] ([facility]) [address] [place] [place], [address], 10/07/2023 07:13:27 10/06/19 24 10/07/2023 LIPID PANEL triglyceride s 163 mg/dL 0-149 above high normal Not Available [facility] ([facility]) [address] [place], [address], 10/07/2023 07:13:27 10/06/19 24 10/07/2023 LIPID PANEL HDL cholesterol 40 mg/dL >39 Not Available [facility] ([facility]) [address] [place], [address], 10/07/2023 07:13:27 10/06/19 24 10/07/2023 LIPID PANEL VLDL cholesterol marva 28 mg/dL 5-40 Not Available [facility] ([facility]) [address] [place], [address], 10/07/2023 07:13:27 10/06/19 24 10/07/2023 LIPID PANEL LDL chol calc ([facility]) 92 mg/dL 0-99 Not Available [facility] ([facility]) [address] [place], [address], 10/07/2023 07:13:27 10/06/19 24 10/07/2023 LIPID PANEL comment: PRESS SMITH HELPER Not Available [facility] ([facility]) [address] [place], [address], 10/07/2023 07:13:27 10/06/19 24 10/07/2023 VITAM IN D, 25-HY DROXY vitamin D, 25-hydroxy 23.6 NG/mL 30.0-1 00.0 below low normal Vitam in D defic iency has been defin ed by the Insti tute of Medic ine and an Endoc rine Socie ty pract ice guide line as a level of serum 25-OH vitam in D less than 20 ng/mL (1,2) . The Endoc rine Socie ty went on to fur er defin e vitam in D insuf ficie ncy as a level betwe en 21 and 29 ng/mL (2). 1. IOM (Inst itute of Medic ine). 2010. Dieta ry refer ence intak es for calci um and D. Juan l[place]: [facility] . 2. [place], Rachel gaona [place], Ashley off-F errar i [place], et al. Evalu ation , treat ment, and preve ntion of vitam in D defic iency : an Endoc rine Socie ty clini marva pract ice guide line. JCEM. 2010; 96(7) :1911 -30. Not Available [facility] ([facility]) [address] [facility], [place], [address], 10/07/2023 07:13:28 10/06/19 24 10/06/2023 HbA1c (hemo globi n A1c), blood HbA1c 11.5 Not Available [facility] [address] [facility] [address], [place], [address], 10/05/2023 09:01:07 11/27/19 24 11/27/2023 HbA1c (hemo globi n A1c), blood HbA1c 11.1 Not Available [facility] [address] [facility] [address], [place], [address], 11/27/2023 16:21:02 11/27/19 24 11/27/2023 gluco se, edison alford k, blood Blood Glucose: mg/dl 270 Not Available [facility] [address] [facility] [address], [place], [address], 11/27/2023 16:21:03 01/28/20 24 01/29/2024 TSH+F REE T4 TSH 1.870 uIU/m L 0.450- 4.500 normal Not Available [facility] ([facility]) [address] [place], [address], 01/29/2024 07:13:53 01/28/20 24 01/29/2024 TSH+F REE T4 T4,free(dire ct) 2.03 NG/dL 0.82-1 .77 above high normal Not Available [facility] ([facility]) [address] [place], [address], 01/29/2024 07:13:53 01/28/20 24 01/29/2024 CBC WITH DIFFE RENTI AL/PL ATELE T WBC 6.9 x10e3 /uL 3.4-10 .8 normal Not Available [facility] ([facility]) [address] [place], [address], 01/29/2024 07:13:54 01/28/20 24 01/29/2024 CBC WITH DIFFE RENTI AL/PL ATELE T RBC 4.93 x10e6 /uL 4.14-5 .80 normal Not Available [facility] ([facility]) [address] [place], [address], 01/29/2024 07:13:54 01/28/20 24 01/29/2024 CBC WITH DIFFE RENTI AL/PL ATELE T hemoglobin 15.3 g/dL 13.0-1 7.7 normal Not Available [facility] ([facility]) [address] [place], [address], 01/29/2024 07:13:54 01/28/20 24 01/29/2024 CBC WITH DIFFE RENTI AL/PL ATELE T hematocrit 47.5 % 37.5-5 1.0 normal Not Available [facility] ([facility]) [address] [facility], [place], [address], 01/29/2024 07:13:54 01/28/20 24 01/29/2024 CBC WITH DIFFE RENTI AL/PL ATELE T MCV 96 fL 79-97 normal Not Available [facility] ([facility]) [address] [facility], [place], [address], 01/29/2024 07:13:54 01/28/20 24 01/29/2024 CBC WITH DIFFE RENTI AL/PL ATELE T MCH 31.0 pg 26.6-3 3.0 normal Not Available [facility] ([facility]) [address] [facility], [place], [address], 01/29/2024 07:13:54 01/28/20 24 01/29/2024 CBC WITH DIFFE RENTI AL/PL ATELE T MCHC 32.2 g/dL 31.5-3 5.7 normal Not Available [facility] ([facility]) [address] [facility], [place], [address], 01/29/2024 07:13:54 01/28/20 24 01/29/2024 CBC WITH DIFFE RENTI AL/PL ATELE T RDW 12.8 % 11.6-1 5.4 Not Available [facility] ([facility]) [address] [place], [address], 01/29/2024 07:13:54 01/28/20 24 01/29/2024 CBC WITH DIFFE RENTI AL/PL ATELE T platelets 296 x10e3 /uL 150-45 0 normal Not Available [facility] ([facility]) [address] [place], [address], 01/29/2024 07:13:54 01/28/20 24 01/29/2024 CBC WITH DIFFE RENTI AL/PL ATELE T neutrophils 68 % not estab. normal Not Available [facility] ([facility]) [address] [place], [address], 01/29/2024 07:13:54 01/28/20 24 01/29/2024 CBC WITH DIFFE RENTI AL/PL ATELE T lymphs 19 % not estab. normal Not Available [facility] ([facility]) [address] [facility], [place], [address], 01/29/2024 07:13:54 01/28/20 24 01/29/2024 CBC WITH DIFFE RENTI AL/PL ATELE T monocytes 10 % not estab. normal Not Available [facility] ([facility]) [address] [facility], [place], [address], 01/29/2024 07:13:54 01/28/20 24 01/29/2024 CBC WITH DIFFE RENTI AL/PL ATELE T eos 2 % not estab. normal Not Available [facility] ([facility]) [address] [facility], [place], [address], 01/29/2024 07:13:54 01/28/20 24 01/29/2024 CBC WITH DIFFE RENTI AL/PL ATELE T basos 1 % not estab. normal Not Available [facility] ([facility]) [address] [facility], [place], [address], 01/29/2024 07:13:54 01/28/20 24 01/29/2024 CBC WITH DIFFE RENTI AL/PL ATELE T immature cells PRESS SMITH HELPER Not Available [facility] ([facility]) [address] [facility], [place], [address], 01/29/2024 07:13:54 01/28/20 24 01/29/2024 CBC WITH DIFFE RENTI AL/PL ATELE T neutrophils (absolute) 4.7 x10e3 /uL 1.4-7. 0 normal Not Available [facility] ([facility]) [address] [facility], [place], [address], 01/29/2024 07:13:54 01/28/20 01/29/2024 CBC WITH DIFFE RENTI AL/PL ATELE T lymphs (absolute) 1.3 x10e3 /uL 0.7-3. 1 normal Not Available [facility] ([facility]) [address] [place], [address], 01/29/2024 07:13:54 01/28/20 24 01/29/2024 CBC WITH DIFFE RENTI AL/PL ATELE T monocytes(ab solute) 0.7 x10e3 /uL 0.1-0. 9 normal Not Available [facility] ([facility]) [address] [place], [address], 01/29/2024 07:13:54 01/28/20 24 01/29/2024 CBC WITH DIFFE RENTI AL/PL ATELE T eos (absolute) 0.1 x10e3 /uL 0.0-0. 4 normal Not Available [facility] ([facility]) [address] [place], [address], 01/29/2024 07:13:54 01/28/20 24 01/29/2024 CBC WITH DIFFE RENTI AL/PL ATELE T baso (absolute) 0.1 x10e3 /uL 0.0-0. 2 normal Not Available [facility] ([facility]) [address] [place], [address], 01/29/2024 07:13:54 01/28/20 24 01/29/2024 CBC WITH DIFFE RENTI AL/PL ATELE T immature granulocytes 0 % not estab. Not Available [facility] ([facility]) [address] [place], [address], 01/29/2024 07:13:54 01/28/20 24 01/29/2024 CBC WITH DIFFE RENTI AL/PL ATELE T immature grans (abs) 0.0 x10e3 /uL 0.0-0. 1 Not Available [facility] ([facility]) [address] [place], [address], 01/29/2024 07:13:54 01/28/20 24 01/29/2024 CBC WITH DIFFE RENTI AL/PL ATELE T NRBC PRESS SMITH HELPER Not Available [facility] ([facility]) [address], [place], [address], 01/29/2024 07:13:54 01/28/20 24 01/29/2024 CBC WITH DIFFE RENTI AL/PL ATELE T hematology comments: PRESS SMITH HELPER Not Available [facility] ([facility]) [address], [place], [address], 01/29/2024 07:13:54 01/28/20 24 01/29/2024 COMP. METAB OLIC PANEL (14) glucose 186 mg/dL 70-99 above high normal Not Available [facility] ([facility]) [address] [facility], [place], [address], 01/29/2024 07:13:55 01/28/20 24 01/29/2024 COMP. METAB OLIC PANEL (14) BUN 37 mg/dL 8-27 above high normal Not Available [facility] ([facility]) [address] [facility], [place], [address], 01/29/2024 07:13:55 01/28/20 24 01/29/2024 COMP. METAB OLIC PANEL (14) creatinine 1.87 mg/dL 0.76-1 .27 above high normal Not Available [facility] ([facility]) [address] [facility], [place], [address], 01/29/2024 07:13:55 01/28/20 24 01/29/2024 COMP. METAB OLIC PANEL (14) eGFR 40 mL/mi n/1.7 3 >59 below low normal Not Available [facility] ([facility]) [address] [facility], [place], [address], 01/29/2024 07:13:55 01/28/20 24 01/29/2024 COMP. METAB OLIC PANEL (14) BUN/creatini ne ratio 20 10-24 normal Not Available [facility] ([facility]) [address] [place], [address], 01/29/2024 07:13:55 01/28/20 24 01/29/2024 COMP. METAB OLIC PANEL (14) sodium 135 mmol/ L 134-14 4 normal Not Available [facility] ([facility]) [address] [facility], [place], [address], 01/29/2024 07:13:55 01/28/20 24 01/29/2024 COMP. METAB OLIC PANEL (14) potassium 4.4 mmol/ L 3.5-5. 2 normal Not Available [facility] ([facility]) [address] [facility], [place], [address], 01/29/2024 07:13:55 01/28/20 24 01/29/2024 COMP. METAB OLIC PANEL (14) chloride 95 mmol/ L 96-106 below low normal Not Available [facility] ([facility]) [address] [place], [address], 01/29/2024 07:13:55 01/28/20 24 01/29/2024 COMP. METAB OLIC PANEL (14) carbon dioxide, total 24 mmol/ L 20-29 normal Not Available [facility] ([facility]) [address] [place], [address], 01/29/2024 07:13:55 01/28/20 24 01/29/2024 COMP. METAB OLIC PANEL (14) calcium 10.3 mg/dL 8.6-10 .2 above high normal Not Available [facility] [facility]) [address] [place], [address], 01/29/2024 07:13:55 01/28/20 24 01/29/2024 COMP. METAB OLIC PANEL (14) protein, total 7.8 g/dL 6.0-8. 5 normal Not Available [facility] ([facility]) [address] [place], [address], 01/29/2024 07:13:55 01/28/20 24 01/29/2024 COMP. METAB OLIC PANEL (14) albumin 4.9 g/dL 3.9-4. 9 normal Not Available [facility] ([facility]) [address] [place], [address], 01/29/2024 07:13:55 01/28/20 24 01/29/2024 COMP. METAB OLIC PANEL (14) globulin, total 2.9 g/dL 1.5-4. 5 Not Available [facility] ([facility]) [address] [place], [address], 01/29/2024 07:13:55 01/28/20 24 01/29/2024 COMP. METAB OLIC PANEL (14) bilirubin, total 0.9 mg/dL 0.0-1. 2 normal Not Available [facility] ([facility]) [address] [place], [address], 01/29/2024 07:13:55 01/28/20 24 01/29/2024 COMP. METAB OLIC PANEL (14) alkaline phosphatase 87 IU/L 44-121 normal Not Available [facility] ([facility]) [address] [place], [address], 01/29/2024 07:13:55 01/28/20 24 01/29/2024 COMP. METAB OLIC PANEL (14) AST (SGOT) 18 IU/L 0-40 normal Not Available [facility] ([facility]) [address] [place], [address], 01/29/2024 07:13:55 01/28/20 24 01/29/2024 COMP. METAB OLIC PANEL (14) ALT (SGPT) 24 IU/L 0-44 normal Not Available [facility] ([facility]) [address] [place], [address], 01/29/2024 07:13:55 01/28/20 24 01/29/2024 LIPID PANEL cholesterol, total 166 mg/dL 100-19 9 normal Not Available [facility] ([facility]) [address] [place], [address], 01/29/2024 07:13:55 01/28/20 24 01/29/2024 LIPID PANEL triglyceride s 136 mg/dL 0-149 normal Not Available [facility] ([facility]) [address] [place], [address], 01/29/2024 07:13:55 01/28/20 24 01/29/2024 LIPID PANEL HDL cholesterol 41 mg/dL >39 normal Not Available [facility] ([facility]) [address] [place], [address], 01/29/2024 07:13:55 01/28/20 24 01/29/2024 LIPID PANEL VLDL cholesterol marva 24 mg/dL 5-40 Not Available [facility] ([facility]) [address] [place], [address], 01/29/2024 07:13:55 01/28/20 24 01/29/2024 LIPID PANEL LDL chol calc ([facility]) 101 mg/dL 0-99 above high normal Not Available [facility] ([facility]) [address] [place], [address], 01/29/2024 07:13:55 01/28/20 24 01/29/2024 LIPID PANEL LDL calc 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 normal Not Available [facility] ([facility]) [address] [facility], [place], [address], 01/29/2024 07:13:56 01/28/20 24 01/29/2024 ALBUM IN/CR EATIN INE RATIO ,URIN E albumin, urine <3.0 ug/mL not estab. Not Available [facility] ([facility]) [address] [facility], [place], [address], 01/29/2024 07:13:56 01/28/20 24 01/29/2024 ALBUM IN/CR EATIN INE RATIO ,URIN E alb/creat ratio <22 mg/g_ creat 0-29 Ayah l: 0 - 29 Moder ately incre ased: 30 - 300 Sever mason incre ased: >300 Not Available [facility] ([facility]) [address] [facility], [place], [address], 01/29/2024 07:13:56 01/28/20 24 01/29/2024 HEMOG LOBIN A1C hemoglobin A1C 8.9 % 4.8-5. 6 above high normal Predi abete s: 5.7 - 6.4 Diabe gulshan: >6.4 Glyce emanuel contr ol for adult s with diabe gulshan: <7.0 Not Available [facility] ([facility]) [address] [facility], [place], [address], 01/29/2024 07:13:56 05/14/20 24 05/14/2024 imagi ng/di agnos tic resul t No observ ation record ed. [facility] [address], [place], [address], 05/14/2024 06:28:59 05/14/20 24 05/14/2024 imagi ng/di agnos tic resul t No observ ation record ed. [facility] [address], [place], [address], 05/14/2024 10:10:44 Result Notes None recorded. Problems Name Problem SNOMED Code Status Onset Date Resolution Date Notes Provider Name and Address Organization Details Recorded Time Chronic obstructive pulmonary disease 32802084 Active 2023 Nancybarbie Treadwell null, [place] - [facility] - [place] & [place] 4 16:22:45 Chronic back pain 556782719 Active 2023 Nancy Tread[place], [place] [facility] [place] 4 16:22:55 Anxiety 83847314 Active 2023 Nancy Treadwell null, [place] [facility] [place] 4 16:23:05 Coronary atheroscleros is 017638588 Active 2023 Nancy Treadwell null, [place] [facility] [place] & [place] 4 16:23:26 Essential hypertension 63969741 Active 2023 Nancy Treadwell [place] [facility] [place] 4 16:23:37 Neuropathy due to diabetes mellitus 026227500 Active 2023 Nancy Treadwell null, [place] [facility] [place] & [place] 4 16:23:50 Hyperlipidemi a 57545888 Active 2023 Nancy Treadwell null[place] [facility] [place] & [place] 4 16:24:02 Gastroesophag eal reflux disease 348158127 Active 2023 Nancy Treadwell null, [place] [facility] [place] & [place] 4 16:24:39 Insomnia 956471483 Active 2023 Nancy Treadwell null[place] [facility] [place] 4 16:24:48 Problem Notes None recorded. Procedures 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 Date Name Laterality Status Provider Name and Address Organization Details Recorded Time 2019 Colonoscopy completed Debra Jaramillo [place] [facility] [place] & [place] 4 13:18:37 2019 esophagogastroduodenoscopy completed Juan Jaramillo [place] [facility] [place] & [place] 4 13:18:55 Imaging Results Imaging Date Name Status LastModified by Organiz ation Details LastModified Time 05/14/2024 imaging/diagn ostic result active [facility] [address], [place], [address], 05/14/2024 06:28:59 05/14/2024 imaging/diagn ostic result active [facility] [address], [place], [address], 05/14/2024 10:10:44 Procedure Notes None recorded. Medical Equipment None Reported. Allergies Allergen ID Allergen Name Allergen Category Reaction Reaction Severity Criticality Documentation Date Start Date Code Code System Note Provider Name and Address Organization Details Recorded Time 987275 naproxen medicatio n hives nausea vomiting Not available Not available Not available Not available 07/06/2023 7258 RxNorm [place] [facility] & [place] 4 09:50:08 049843 tramadol medicatio n hives nausea Not available Not available Not available 07/06/2023 69496 RxNorm laure nguyen [facility] & [place] 4 09:50:10 Medications Name Sig Start Date Stop Date Status Note LastModified by Organization Details LastModified Time quetiapine 25 mg tablet TAKE ONE TABLET BY MOUTH AT BEDTIME 11/23 completed Not Available Not Available Not Available cyclobenzap rine 10 mg tablet TAKE ONE TABLET BY MOUTH TWICE DAILY NEEDED MAY CAUSE DROWSINES S 07/06 completed Not Available Not Available Not Available methocarbam ol 500 mg tablet 11/23 completed Not Available Not Available Not Available atorvastati n 20 mg tablet 07/06 completed Not Available Not Available Not Available ibuprofen 800 mg tablet 07/06 completed Not Available Not Available Not Available doxepin 25 mg capsule active Not Available Not Available N ot Available chlorzoxazo ne 500 mg tablet 07/06 completed Not Available Not Available Not Available hydrocodone 5 mg-acetamin ophen 325 mg tablet TAKE ONE TABLET BY MOUTH TWICE DAILY NEEDED FOR BREAKTHRO UGH POST OP PAIN MAY CAUSE DROWSINES S active Not Available Not Available No t Available ondansetron HCl 8 mg tablet take as needed for nausea 11/23 completed Not Available Not Available Not Available FreeStyle Lancets 28 gauge USE DIRECTED active Not Available Not Available No t Available prednisone 20 mg tablet TAKE 1 TABLET BY MOUTH ONCE DAILY FOR 5 DAYS 11/23 completed Not Available Not Available Not Available isosorbide mononitrate ER 30 mg tablet,exte nded release 24 hr TAKE ONE TABLET BY MOUTH EVERY DAY 07/06 completed Not Available Not Available Not Available clonazepam 0.5 mg tablet take 1 tablet BID 10/26 completed Not Available Not Available Not Available clopidogrel 75 mg tablet take 1 tablet once daily active Not Available Not Available No t Available doxepin 10 mg capsule Take 1 pill prior to bedtime. If not improving after 10 days, may take 2 pills nightly 2023 active Not Available Not Available Not Avai lable amitriptyli ne 50 mg tablet TAKE ONE TABLET BY MOUTH EVERY DAY active Not Available Not Available No t Available ketorolac 10 mg tablet 07/06 completed Not Available Not Available Not Available pantoprazol e 20 mg tablet,yenny yed release Take by oral route for 30 days. active Not Available Not Available No t Available isosorbide mononitrate ER 60 mg tablet,exte nded release 24 hr take one tablet by mouth once daily active Not Available Not Available No t Available famotidine 20 mg tablet TAKE ONE TABLET BY MOUTH EVERY DAY 2023 active Not Available Not Available Not Avai lable amitriptyli ne 25 mg tablet Take 1 tablet every day by oral route at bedtime, for sleep. active Not Available Not Available No t Available torsemide 100 mg tablet TAKE 1/2 TABLET BY MOUTH EVERY DAY active Not Available Not Available No t Available oxycodone-a cetaminophe n 10 mg-325 mg tablet 07/06 completed Not Available Not Available Not Available gabapentin 800 mg tablet TAKE ONE TABLET BY MOUTH 3 TIMES A DAY 2023 active Not Available Not Available Not Avai lable pantoprazol e 40 mg tablet,yenny yed release 07/06 completed Not Available Not Available Not Available trazodone 150 mg tablet 07/06 completed Not Available Not Available Not Available lidocaine 5 % topical patch Apply 1 patch every 12 hours by topical route as needed. 11/23 completed Not Available Not Available Not Available lisinopril 5 mg tablet Take 1 tablet every day by oral route. active Not Available Not Available No t Available mirtazapine 15 mg tablet TAKE ONE TABLET BY MOUTH EVERY DAY AT BEDTIME 07/06 completed Not Available Not Available Not Available ergocalcife rol (vitamin D2) 1,250 mcg (50,000 unit) capsule TAKE ONE CAPSULE BY MOUTH EVERY WEEK 2023 active Not Available Not Available Not Avai lable spironolact one 50 mg tablet TAKE ONE TABLET BY MOUTH ONCE A DAY active Not Available Not Available No t Available metoclopram davion 10 mg tablet active Not Available Not Available Not Available Ventolin HFA 90 mcg/actuati on aerosol inhaler active Not Available Not Available Not Available hydroxyzine pamoate 25 mg capsule active Not Available Not Available N ot Available cyclobenzap rine 5 mg tablet 07/06 completed Not Available Not Available Not Available rosuvastati n 20 mg tablet 07/06 completed Not Available Not Available Not Available rosuvastati n 40 mg tablet Take 1 tablet every day by oral route. active Not Available Not Available No t Available metoprolol tartrate 25 mg tablet TAKE ONE TABLET BY MOUTH 2 TIMES A DAY FOR HYPERTENS ION 2023 active Not Available Not Available Not Avai lable Spiriva with HandiHaler 18 mcg and inhalation capsules INHALE THE CONTENTS OF 1 CAPSULE VIA HANDIHALE R ONCE DAILY DIRECTED active Not Available Not Available No t Available BD Ultra-Fine Mini Pen Needle 31 gauge x 3/16 USE DIRECTED 2023 active Not Available Not Available Not Avai lable 8 Hour Pain Reliever 650 mg tablet,exte nded release active Not Available Not Available Not Available Januvia 100 mg tablet TAKE ONE TABLET BY MOUTH ONCE A DAY 2023 active Not Available Not Available Not Avai lable FreeStyle Lite Meter kit active Not Available Not Available Not Available FreeStyle Lite Strips USE DIRECTED active Not Available Not Available No t Available cholecalcif cielo (vitamin D3) 1,250 mcg (50,000 unit) capsule TAKE ONE CAPSULE BY MOUTH ONCE A WEEK 07/06 completed Not Available Not Available Not Available Lantus Solostar U-100 Insulin 100 unit/mL (3 mL) subcutaneou s pen Inject 20 units every day by subcutane ous route at bedtime, for diabetes. active Not Available Not Available No t Available ranolazine ER 1,000 mg tablet,exte nded release,12 hr 07/06 completed Not Available Not Available Not Available oxycodone 10 mg tablet TAKE ONE TABLET BY MOUTH THREE TIMES DAILY MAY CAUSE DROWSINES S active Not Available Not Available No t Available Jardiance 25 mg tablet TAKE ONE TABLET BY MOUTH ONCE A DAY active Not Available Not Available No t Available Ozempic 0.25 mg or 0.5 mg (2 mg/1.5 mL) subcutaneou s pen injector 07/06 completed Not Available Not Available Not Available Mounjaro 2.5 mg/0.5 mL subcutaneou s pen injector INJECT 2.5 MG SUBCUTANE OUSLY ONCE WEEKLY active Not Available Not Available No t Available Ozempic 0.25 mg or 0.5 mg (2 mg/3 mL) subcutaneou s pen injector 07/06 completed Not Available Not Available Not Available Clenpiq 10 mg-3.5 gram-12 gram/175 mL oral solution take as directed 11/23 completed Not Available Not Available Not Available Vitals Date Recorded Body height Body mass index (BMI) Body weight Body temperature Oxygen saturation Oxygen saturation in Arterial blood by Pulse oximetry Heart rate Systolic blood pressure Diastolic blood pressure Provider Name and Address Organization Details Last Updated DateTime 4 165.1 cm 37.6 kg/m2 729293. 28 g 96.8 [degF] 97 % 97 % 78 /min 131 mm[Hg] 63 mm[Hg] Nancy CLAYTON [facility] - [place] & [place] 4 16:07:04 Date Recorded Body height Body mass index (BMI) Body weight Body temperature Oxygen saturation Oxygen saturation in Arterial blood by Pulse oximetry Heart rate Systolic blood pressure Diastolic blood pressure Provider Name and Address Organization Details Last Updated DateTime 4 165.1 cm 35.9 kg/m2 75086.9 5 g 97.8 [degF] 98 % 98 % 94 /min 105 mm[Hg] 71 mm[Hg] Nancy CLAYTON [place] [facility] & [place] 4 16:18:12 Date Recorded Body height Body mass index (BMI) Body weight Body temperature Oxygen saturation Oxygen saturation in Arterial blood by Pulse oximetry Heart rate Systolic blood pressure Diastolic blood pressure Provider Name and Address Organization Details Last Updated DateTime 4 165.1 cm 38.5 kg/m2 369396. 94 g 97.6 [degF] 99 % 99 % 92 /min 95 mm[Hg] 59 mm[Hg] Nancy CLAYTON [facility] & [place] 4 10:00:13 Date Recorded Body height Body mass index (BMI) Body weight Body temperature Oxygen saturation Oxygen saturation in Arterial blood by Pulse oximetry Heart rate Systolic blood pressure Diastolic blood pressure Provider Name and Address Organization Details Last Updated DateTime 4 165.1 cm 41.1 kg/m2 876029. 02 g 97.7 [degF] 96 % 96 % 78 /min 95 mm[Hg] 52 mm[Hg] Kyler Holloway MD [address] [facility], [place], [address] [facility] & [place] 4 16:17:03 Date Recorded Body height Body mass index (BMI) Body weight Body temperature Oxygen saturation Oxygen saturation in Arterial blood by Pulse oximetry Heart rate Systolic blood pressure Diastolic blood pressure Provider Name and Address Organization Details Last Updated DateTime 4 165.1 cm 40.6 kg/m2 099022. 24 g 98.6 [degF] 98 % 98 % 84 /min 101 mm[Hg] 56 mm[Hg] Nancy CLAYTON [facility] & [place] 4 11:15:28 Social History Question Answer Notes LastModified by Organizat ion Details LastModified Time Tobacco Smoking Status Former Smoker Sera Weeks wendy, [place] [facility] & [place] 01/14/2024 14:09:33 Do You Have An Advance Directive? No [email or web address] Information not available 01/14/2024 What Is Your Level Of Alcohol Consumption? Occasional [email or web address] Information not available 07/06/2023 Are You Blind Or Do You Have Difficulty Seeing? Yes [email or web address] Information not available 01/14/2024 What Is Your Level Of Caffeine Consumption? Moderate Information not available 07/06/2023 What Was The Date Of Your Most Recent Tobacco Screening? 11/24/2023 [email or web address] Information not available 01/14/2024 Are You Passively Exposed To Smoke? No Information no t available 01/14/2024 Do You Or Have You Ever Used Smokeless Tobacco? Never Used Smokeless Tobacco Information not available 01/14/2024 How Much Tobacco Do You Smoke? No [email or web address] Information not available 01/14/2024 Do You Feel Stressed (tense, Restless, Nervous, Or Anxious, Or Unable To Sleep At Night)? [id number] [email or web address] Information not available 01/14/2024 Do You Use Any Illicit Or Recreational Drugs? No [email or web address] Information not available 01/14/2024 How Many Years Have You Smoked Tobacco? 4 Information not available 01/14/2024 Sex: Unknown Functional Status Question Answer Note LastModified by Organizat ion Details LastModified Time What is your exercise level? Occasional [email or web address] Information not available 01/14/2024 Mental Status None recorded. Family History Relationship Description Onset Age of this Age Resolved Age Notes LastModified by Organization Details LastModified Time Mother Coronary arterioscler osis [email or web address] Not available 04/11 10:47:16 Mother Hypertensive disorder [email or web address] Not available 2023 18:42:21 Mother Myocardial infarction [email or web address] Not available 09/16 18:42:29 Father Diabetes mellitus [email or web address] Not available 04/11 10:47:16 Father Hypertensive disorder [email or web address] Not available 2023 18:42:47 Father Cerebrovascu lar accident [email or web address] Not available 04/2024 18:43:01 Sister Myocardial infarction [email or web address] Not available 09/16 18:43:06 Sister Malignant neoplastic disease x2 [email or web address] Not available 04/11 10:47:16 Brother Cerebrovascu lar accident [email or web address] Not available 04/2024 18:43:15 Brother Hypertensive disorder [email or web address] Not available 2023 18:43:19 Brother Diabetes mellitus [email or web address] Not available 04/11 10:47:16 Medical History Condition Response Coronary Artery Disease Y Other Y Kidney or Bladder Problems Y COPD Y Osteoporosis/Osteopenia Y Constipation Y Spine Problems Y Heart Attack (MS) Y Obstructive Sleep Apnea Y Diabetes Y Muscle, Joint, or Bone Problems Y Obesity Y Vision or Eye Problems Y Arthritis Y Congestive Heart Failure (CHF) Y Cancer Y Back Problems Y Stroke Y Reflux/GERD Y High Cholesterol Y Headaches Y Hypertension Y Kidney Disease Y Immunizations Vaccine Type Date Status Provider Name and Address Organization Details Recorded Time COVID-19, mRNA, LNP-S, PF, 100 mcg/0.5mL dose or 50 mcg/0.25mL dose 08/22/2020 completed [place] - [facility] & [place] 07/06/2023 12:46:08 COVID-19, mRNA, LNP-S, PF, 100 mcg/0.5mL dose or 50 mcg/0.25mL dose 09/19/2020 completed [place] - [facility] & [place] 07/06/2023 12:46:08 Influenza, split virus, trivalent, PF 04/19/2018 completed Nancy nguyen [place] - [facility] & [place] 07/06/2023 12:46:08 Td (adult), 2 Lf tetanus toxoid, preservative free, adsorbed 08/08/1996 completed [place] - [facility] & [place] 07/06/2023 12:46:08 Past Encounters Encounter ID Performer Location Encounter Start Date Encounter Closed Date Diagnosis/Indication Diagnosis SNOMED-CT Code Diagnosis ICD10 Code [id number] Kyler Holloway MD [address] [address] 07/06/2023 12:23:46 07/06/2023 13:32:16 Type 2 diabetes mellitus 28761083 E11.21 Diabetic p eripheral neuropathy 094347684 E11.40 Essential hypertension 88342991 I10 Hyperlipidemia 60325931 E78.5 Gastroesop hageal reflux disease 465356351 K21.9 Coronary arteriosclerosis 92797917 I25.10 Anxiety 50157483 F41.9 Chronic back pain 503896 002 G89.29 Chronic ob structive pulmonary disease 06313719 J44.9 [id number] Kyler Holloway MD [facility] [address] [place] [address] 10/05/2023 08:52:45 10/05/2023 09:44:20 Type 2 diabetes mellitus 13833683 E11.21 Hyperlipidemia 41527210 E78.5 Diabetic p eripheral neuropathy 051645153 E11.40 Essential hypertension 61398169 I10 Gastroesop hageal reflux disease 958109552 K21.9 Coronary arteriosclerosis 87790865 I25.10 Anxiety 38088542 F41.9 Chronic back pain 201488 002 G89.29 Chronic ob structive pulmonary disease 58153625 J44.9 Insomnia 429008171 G47.0 9 [id number] Kyler Holloway MD [facility] [address] [facility] [place] [address] 10/06/2023 09:18:37 10/06/2023 09:42:02 Essential hypertension 69072669 I10 [id number] Kyler Holloway MD [facility] [address] [facility] [place] [address] 10/27/2023 15:40:29 10/27/2023 16:43:34 Insomnia 777702555 G47.09 Gastroesop hageal reflux disease 700842838 K21.9 Type 2 krystin betes mellitus 19794556 E11.21 Hyperlipidemia 88260556 E78.5 Diabetic p eripheral neuropathy 517419511 E11.40 Essential hypertension 32403876 I10 Coronary arteriosclerosis 56742956 I25.10 Anxiety 18559847 F41.9 Chronic back pain 999853 002 G89.29 Chronic ob structive pulmonary disease 74036259 J44.9 [id number] Kyler Holloway MD [facility] [address] [facility] [place] [address] 11/27/2023 15:48:15 11/27/2023 16:36:39 Type 2 diabetes mellitus 63992031 E11.21 [id number] Kyler Holloway MD [facility] [address] [facility] [place] [address] 01/28/2024 09:39:31 01/28/2024 13:15:51 Type 2 diabetes mellitus 25153354 E11.21 Hyperlipidemia 21440650 E78.5 Insomnia 592652991 G47.0 9 Essential hypertension 84022185 I10 Diabetic p eripheral neuropathy 330077867 E11.40 [id number] Kyler Holloway MD [facility] [address] [facility] [place] [address] 02/11/2024 15:44:52 02/11/2024 17:23:00 Type 2 diabetes mellitus 44917383 E11.21 Insomnia 638889461 G47.0 9 Chronic ki dney disease stage 3B 765123135 N18.32 [id number] Kyler Holloway MD [facility] [address] [facility] [place] [address] 04/11/2024 10:47:00 04/11/2024 12:03:08 Acute pancreatitis 386816354 K85.90 Peripheral edema 2804338 00 R60.9 Health Concerns Section Related Observation LastModified by Organization Detai ls LastModified Time None Recorded Concern Status LastModified by Organization Details LastModified Time None Recorded Advance Directives Directive N: Payers Encounter Date Sequence Insurance Name Policy Number Policy Dietrich Covered Member ID Dietrich Member ID Guarantor Name 10/27/2023 1 [id number] Se[place] Persaud [id number] Seamus Persaud 11/27/2023 1 [id number] Se[place] Persaud [id number] Seamus Persaud 01/28/2024 1 [id number] Se[place] Persaud [id number] Seamus Persaud 02/11/2024 1 [id number] Se[place] Persaud [id number] Seamus Persaud 04/11/2024 1 [place] [facility] MEDICAID ([facility]) [id number] Seamus Persaud [id number] Seamus Persaud Notes Date Note Type Note Provider Name and Address Organization Details Recorded Time 11/27/2023 text/html Here for F/U aft er starting night-time long-lasting insulin. States AM blood sugar 2 days ago was 130. Feels like the insulin is causing him to eat more yet his weight is actually down 10 lb according to our scale. He is also requesting a refill on rosuvastatin today. Kyler Holloway MD [address], [place], [address], [facility] & [place] 11/27/2023 17:25:10 01/28/2024 text/html Patient presents for routine follow-up. Kyler Holloway MD [address], [place], [address], [facility] & [place] 01/29/2024 06:25:16 02/11/2024 text/html patient presents for follow up on lab work. He is concerned because he is continuing to gain weight. He was placed on Ozempic at 1 time it states it hurts his stomach. Would be willing to try Mounjaro. Also continues to have trouble sleeping stating the amitriptyline did not help at all. Review of his most recent labs reveal his hemoglobin A1c is 8.9% which is actually improved from 11.1% . Currently on Jardiance 25 mg daily, Januvia 100 mg daily and Lantus 20 units at bedtime. Most concerning of his blood work reveals his kidney function has acutely decreased. His BUN is elevated at 37, his creatinine is elevated at 1.87, and his GFR is now 40, a 20 point declined from September. Kyler Holloway MD [address], [place], [address], [facility] & [place] 02/12/2024 06:31:47 04/11/2024 text/html Pt presents afte r being evaluated at [facility] ER on for abdominal pain that was persisting for about a week. Supposedly told he had pancreatitis, Was placed on metoclopromaide. Since being seen at ER he has had problems with LE edema Kyler Holloway MD [address], [place], [address], [facility] - [place] - [facility] 04/11/2024 21:10:10
--- OUTSIDE RECORDS SUMMARY | 2024-05-14 13:55 | XMS_ITS | Continuity of Care Document ---
[facility] [place] Address [address] [facility] [place] [address] Care Team Providers Care Inspecting Engineer Name Role Phone KYLER HOLLOWAY Primary Care Provider [phone] Assessment No assessment recorded. Plan of Treatment Reminders Order Date Submit Date Provider Last Modified By Organization Details Last Modified Time Details Appointments Establish ed Visit 15 min 2023 11:00A M Kyler Holloway MD Not available Not available Not available Lab CBC w/ auto diff 2023 024 [facility], [address], [address], [place], [address], 04/12/2024 08:21:50 CMP, serum or plasma 2023 024 [facility], [address], [address], [place], [address], 04/12/2024 08:21:48 amylase + lipase, serum 2023 024 [facility], [address], [address], [place], [address], 04/12/2024 08:21:51 Referral None recorded. Procedures None recorded. Surgeries None recorded. Imaging None recorded. Medication Orders None recorded. Patient TargetsNo targets recorded. Patient InstructionsNo instructions recorded. Reason for Referral None Reported. Results Created Date Observation Date Name Description Value Unit Range Abnormal Flag Note LastModifiedBy Organization Detail LastModifiedTime 05/14/20 24 05/14/2024 imagi ng/di agnos tic resul t No observ ation record ed. [facility] [address], [place], [address], 05/14/2024 06:28:59 05/14/20 24 05/14/2024 imagi ng/di agnos tic resul t No observ ation record ed. [facility] [address], [place], [address], 05/14/2024 10:10:44 Result Notes None recorded. Problems Name Problem SNOMED Code Status Onset Date Resolution Date Notes Provider Name and Address Organization Details Recorded Time Chronic obstructive pulmonary disease 60144735 Active 2023 Nancy nguyen, [place] - [facility] - [place] & [place] 4 16:22:45 Chronic back pain 845656323 Active 2023 Nancy Treadwell null, [place] - [facility] [place] & [place] 4 16:22:55 Anxiety 46678084 Active 2023 Nancy Tread[place] null, [place] [facility] [place] & [place] 4 16:23:05 Coronary atheroscleros is 112107612 Active 2023 Nancy Tread[place] null, [place] [facility] [place] & [place] 4 16:23:26 Essential hypertension 37188697 Active 2023 Nancy Tread[place] null, [place] [facility] [place] & [place] 4 16:23:37 Neuropathy due to diabetes mellitus 175751861 Active 2023 Nancy Tread[place] null, [place] - [facility] [place] 4 16:23:50 Hyperlipidemi a 14161173 Active 2023 Nancy Tread[place] null, [place] [facility] [place] & [place] 4 16:24:02 Gastroesophag eal reflux disease 211690653 Active 2023 Nancy Treadwell null, [place] - [facility] [place] & [place] 4 16:24:39 Insomnia 733399881 Active 2023 Nancy nguyen [place] [facility] & [place] 4 16:24:48 Problem Notes None recorded. Procedures 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 Date Name Laterality Status Provider Name and Address Organization Details Recorded Time 2019 Colonoscopy completed Debra CLAYTON [facility] & [place] 4 13:18:37 2019 esophagogastroduodenoscopy completed Juan CLAYTON [facility] & [place] 4 13:18:55 Imaging Results None recorded. Procedure Notes None recorded. Medical Equipment None Reported. Allergies Allergen ID Allergen Name Allergen Category Reaction Reaction Severity Criticality Documentation Date Start Date Code Code System Note Provider Name and Address Organization Details Recorded Time 252071 naproxen medicatio n hives nausea vomiting Not available Not available Not available Not available 07/06/2023 7258 RxNorm criti apple galvan [place] [facility] & [place] 4 09:50:08 216572 tramadol medicatio n hives nausea Not available Not available Not available 07/06/2023 37879 RxNorm brodyti apple galvan angel nguyen [place] [facility] & [place] 4 09:50:10 Medications Name Sig Start Date [...] Updated DateTime 4 165.1 cm 40.6 kg/m2 277079. 24 g 98.6 [degF] 98 % 98 % 84 /min 101 mm[Hg] 56 mm[Hg] Nancy GALDAMEZ [facility] & [place] 4 11:15:28 Social History Question Answer Notes LastModified by Organizat ion Details LastModified Time Tobacco Smoking Status Former Smoker Sera nguyen, [place] GALDAMEZ [facility] & [place] 01/14/2024 14:09:33 Do You Have An Advance Directive? No [email or web address] Information not available 01/14/2024 What Is Your Level Of Alcohol Consumption? Occasional [email or web address] Information not available 07/06/2023 Are You Blind Or Do You Have Difficulty Seeing? Yes [email or web address] Information not available 01/14/2024 What Is Your Level Of Caffeine Consumption? Moderate [email or web address] Information not available 07/06/2023 What Was The Date Of Your Most Recent Tobacco Screening? 11/24/2023 [email or web address] Information not available 01/14/2024 Are You Passively Exposed To Smoke? No [email or web address] Information no t available 01/14/2024 Do You Or Have You Ever Used Smokeless Tobacco? Never Used Smokeless Tobacco Information not available 01/14/2024 How Much Tobacco Do You Smoke? No [email or web address] Information not available 01/14/2024 Do You Feel Stressed (tense, Restless, Nervous, Or Anxious, Or Unable To Sleep At Night)? [id number] [email or web address] Information not available 01/14/2024 Do You Use Any Illicit Or Recreational Drugs? No [email or web address] Information not available 01/14/2024 How Many Years Have You Smoked Tobacco? 4 [email or web address] Information not available 01/14/2024 Sex: Unknown Functional Status Question Answer Note LastModified by Organizat ion Details LastModified Time What is your exercise level? Occasional [email or web address] Information not available 01/14/2024 Mental Status None [...] Not available 2023 18:43:19 Brother Diabetes mellitus [email or web address] Not available 04/11 10:47:16 Medical History Condition Response Coronary Artery Disease Y Other Y Kidney or Bladder Problems Y COPD Y Osteoporosis/Osteopenia Y Constipation Y Heart Attack (CA) Y Spine Problems Y Obstructive Sleep Apnea Y Diabetes Y Muscle, Joint, or Bone Problems Y Obesity Y Vision or Eye Problems Y Arthritis Y Congestive Heart Failure (CHF) Y Cancer Y Back Problems Y Stroke Y Reflux/GERD Y High Cholesterol Y Headaches Y Hypertension Y Kidney Disease Y Immunizations Vaccine Type Date Status Note Provider Nam e and Address Organization Details Recorded Time COVID-19, mRNA, LNP-S, PF, 100 mcg/0.5mL dose or 50 mcg/0.25mL dose 1 completed [place] - [facility] - [place] & [place] 07/06/2023 12:46:08 COVID-19, mRNA, LNP-S, PF, 100 mcg/0.5mL dose or 50 mcg/0.25mL dose 1 completed [place] - [facility] - [place] & [place] 07/06/2023 12:46:08 Influenza, split virus, trivalent, PF 8 completed Nancy nguyen [place] - [facility] - [place] & [place] 07/06/2023 12:46:08 Td (adult), 2 Lf tetanus toxoid, preservative free, adsorbed 7 completed Nancy nguyen, [place] - [facility] - [place] & [place] 07/06/2023 12:46:08 Past Encounters Encounter ID Performer Location Encounter Start Date Encounter Closed Date Diagnosis/Indication Diagnosis SNOMED-CT Code Diagnosis ICD10 Code [id number] MD Ke [facility] - [place] [address] [place] [address] 04/11/2024 10:47:00 04/11/2024 12:03:08 Acute pancreatitis 414482324 K85.90 Peripheral edema 7719718 00 R60.9 Health Concerns Section Related Observation LastModified by Organization Detai ls LastModified Time None Recorded Concern Status LastModified by Organization Details LastModified Time None Recorded Payers Encounter Date Sequence Insurance Name Policy Number Policy Dietrich Covered Member ID Dietrich Member ID Guarantor Name 04/11/2024 1 [place] [id number] Seamus Persaud [id number] Seamus Persaud Notes Date Note Type Note Provider Name and Address Organization Details Recorded Time 04/11/2024 text/html Pt presents afte r being evaluated at [facility] ER on for abdominal pain that was persisting for about a week. Supposedly told he had pancreatitis, Was placed on metoclopromaide. Since being seen at ER he has had problems with LE edema Kyler Holloway MD [address], [place], [address], [facility] - [place] & [place] 04/11/2024 21:10:10
[2024-05-14 14:13] LABS: POC Glucose,Bedside 293 (70-110)
--- NOTE | 2024-05-14 14:36 | EXP.HP ---
History of Present Illness *Admission Date: 05/14/24 *Reason for visit:: DKA *History of present illness: Seamus Persaud is a 63-year-old male with a medical history significant for insulin-dependent type 2 diabetes, COPD, non-small cell lung carcinoma s/p chemoradiotherapy in remission, hypertension, anxiety/depression who presents generalized weakness, abdominal cramping for the past week. Patient states he had recently been started on Mounjaro, and last week he decided he did not enjoy sticking himself or insulin anymore and discontinued. A few days later, patient began having generalized weakness, nausea without vomiting, abdominal cramping which progressively became worse. Currently denies chest pain, shortness of breath. Workup in the ED significant for blood glucose 755, AGAP 33.4, bicarb 8, pH 7.25, ketonuria, positive acetone. Patient had stable vital signs during this time. CXR, head CT unremarkable. Case discussed with ED provider and decision was made to admit patient for diabetic ketoacidosis. [facility] Disclaimer: The information contained in this section may have been updated after the patient was seen, as this information can be updated by other users. 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 Elevated serum creatinine History of lung cancer in adulthood Stopped smoking with greater than 30 pack year history COPD mixed type Mediastinal lymphadenopathy Hilar lymphadenopathy Dyspnea Typical angina Abnormal result of cardiovascular function study Diabetes Mediastinal lymphadenopathy Pulmonary emphysema COPD (chronic obstructive pulmonary disease) Obstructive sleep apnea (adult) (pediatric) H/O malignant neoplasm of lung Other emphysema Stopped smoking with greater than 30 pack year history Dyspnea on exertion YAMILE (obstructive sleep apnea) Dizziness Lightheaded Hypotension Edema Claudication 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 History of colonoscopy H/O arthroscopy of knee H/O arthroscopy of shoulder Family History Other No significant family history Social History (Updated 05/14/24 @ 11:03 by Alivia Cervantes RN) Smoking Status: Never smoker how long ago did patient quit smokin years; in 2017 second hand exposure: No alcohol intake: never counseling given: No counseling provided: provider counseling substance use type: marijuana counseling given: No current occupational status: disabled Travel in the last 8 weeks: None adopted: No caregiver/support person: No foster care: No household members: children housing: apartment lives independently: Yes marital status: single number of children: 4 number of grandchildren: 9 service: Yes (he was honorably discharged; cause of his back; he was in there for 2 years) 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 exposures/hazards: No Hx Recent Travel: No sexually active: No caffeine: Yes physical activity: none working smoke detector in home: Yes fire extinguisher in home: No carbon monox detector in home: Yes firearms in home: No do you feel safe at home: Yes victim of physical abuse: No victim of emotional abuse: No victim of sexual abuse: No would you like helpful sources: No Other Medical History Have you received the Flu Vaccine for this season: No Have you received the Pneumonia Vaccine: No Meds Home Medications and Allergies Home Medications ?Medication ?Instructions ?Recorded ?Confirmed ?Type oxycodone 10 mg tablet 10 mg PO TID 03/31/23 05/14/24 History rosuvastatin 40 mg tablet 40 mg PO HS 03/31/23 05/14/24 History gabapentin 800 mg tablet 800 mg PO TID 06/16/23 05/14/24 History lisinopril 5 mg tablet 5 mg PO DAILY #90 tabs 06/16/23 05/14/24 Rx metoprolol tartrate 25 mg tablet 25 mg PO BID #90 tabs 06/16/23 05/14/24 Rx isosorbide mononitrate 60 mg 60 mg PO DAILY #90 tabs 12/03/23 05/14/24 Rx tablet,extended release 24 hr amitriptyline 50 mg tablet 50 mg PO HS 12/07/23 05/14/24 History famotidine 20 mg tablet 20 mg PO HS 12/07/23 05/14/24 History insulin glargine 100 unit/mL (3 22 unit SQ HS 12/07/23 05/14/24 History mL) subcutaneous pen (Lantus Solostar U-100 Insulin) tiotropium bromide 18 mcg capsule 1 cap inhalation DAILY 90 days 01/18/24 05/14/24 Rx with inhalation device (Spiriva #180 puffs with HandiHaler) tirzepatide 2.5 mg/0.5 mL 2.5 mg SQ WEEKLY 04/06/24 05/14/24 History subcutaneous pen injector (Mounjaro) acetaminophen 650 mg 650 mg PO Q8H #90 tabs 04/18/24 05/14/24 Rx tablet,extended release (Tylenol Arthritis Pain) albuterol sulfate 90 mcg/actuation 2 inh inhalation QIDP PRN 05/14/24 05/14/24 History aerosol inhaler shortness of breath or wheezing clopidogrel 75 mg tablet 75 mg PO DAILY 05/14/24 05/14/24 History diclofenac sodium 1 % topical gel 2 g topical DAILY 05/14/24 05/14/24 History (Voltaren Arthritis Pain) empagliflozin 25 mg tablet 25 mg PO DAILY 05/14/24 05/14/24 History ergocalciferol (vitamin D2) 1,250 1,250 mcg PO WEEKLY 05/14/24 05/14/24 History mcg (50,000 unit) capsule hydroxyzine pamoate 25 mg capsule 25 mg PO TIDP PRN Anxiety 05/14/24 05/14/24 History (Vistaril) spironolactone 50 mg tablet 50 mg PO DAILY 05/14/24 05/14/24 History torsemide 100 mg tablet 100 mg PO DAILY 05/14/24 05/14/24 History New Prescriptions to Start Prescriptions: Allergies Allergy/AdvReac Type Severity Reaction Status Date / Time naproxen (NAPROXEN) Allergy Mild NA-NAUSEA/V Verified 04/18/24 09:03 OMITING tramadol (TRAMADOL) Allergy Mild NA-NAUSEA Verified 04/18/24 09:03 Exam Data for Last 24 hours Vital signs and Labs for Last 24 Hours: Temp Pulse Resp BP Pulse Ox O2 Del Method 97.6 F 90 12 113/66 99 Room Air 05/14/24 12:00 05/14/24 14:04 05/14/24 14:00 05/14/24 14:00 05/14/24 14:00 05/14/24 14:00 Laboratory Results - last 24 hr 05/14/24 05:55: VBG pH 7.25 L, VBG pCO2 29.4 L, VBG pO2 71.9 H, VBG HCO3 12.7 L, VBG Total CO2 13.6 L, VBG O2 Saturation 92.2 H, VBG Base Excess -14.4 L, VBG Lactic Acid 5.0 H 05/14/24 06:20: WBC 14.6 H, RBC 5.23, Hgb 16.5, Hct 52.3 H, MCV 100.0 H, MCH 31.6 H, MCHC 31.6 L, RDW 13.4, Plt Count 305, MPV 8.5, Neut % (Auto) 90.2 H, Lymph % (Auto) 5.0 L, [place] % (Auto) 4.6, Eos % (Auto) 0.1, Baso % (Auto) 0.1, Neut # (Auto) 13.1 H, Lymph # (Auto) 0.7, [place] # (Auto) 0.7, Eos # (Auto) 0.0, Baso # (Auto) 0.0, Total Counted 100, Neutrophils % (Manual) 94 H, Lymphocytes % (Manual) 5 L, Monocytes % (Manual) 1 L, Platelet Estimate Normal, Macrocytosis 1+, D-Dimer 0.84 H, Sodium 127 L, Potassium 5.4 H, Chloride 91 L, Carbon Dioxide 8 L*, Anion Gap 33.4 H, BUN 67 H, Creatinine 2.10 H, Estimated Creat Clear 51, Estimated GFR 32 L, Est GFR ( Amer) 39 L, Glucose 755 H*, Calcium 9.8, Magnesium 3.5 H, Total Bilirubin 1.3, AST 36, ALT 72, Alkaline Phosphatase 164 H, Total Creatine Kinase 87, Troponin I 0.04 H, Total Protein 7.5, Albumin 4.9, Globulin 2.6, Albumin/Globulin Ratio 1.9 H, Lipase 87, TSH 0.57, Thyroxine (T4) 12.9 H 05/14/24 07:20: Urine Color Yellow, Urine Appearance Clear, Urine pH 5.5, Ur Specific [place] 1.010, Urine Protein Negative, Urine Glucose (UA) 3+, Urine Ketones 2+, Urine Blood Negative, Urine Nitrate Negative, Urine Bilirubin Negative, Urine Urobilinogen 0.2, Ur Leukocyte Esterase Negative, Urine RBC None, Urine WBC Occasional, Ur Squamous Epith Cells Occasional, Urine Bacteria None 05/14/24 08:30: VBG pH 7.23 L, VBG pCO2 34.6 L, VBG pO2 47.3 H, VBG HCO3 14.2 L, VBG Total CO2 15.3 L, VBG O2 Saturation 76.0 H, VBG Base Excess -13.3 L, VBG Lactic Acid 3.5 H 05/14/24 09:07: Sodium 129 L, Potassium 5.3 H, Chloride 96 L, Carbon Dioxide 15 L, Anion Gap 23.3 H, BUN 63 H, Creatinine 1.80 H, Estimated Creat Clear 59, Estimated GFR 39 L, Est GFR ( Amer) 47 L D, Glucose 558 H* D, Calcium 9.5, Phosphorus 4.9 H, Magnesium 3.1 H D, Troponin I 0.03 05/14/24 09:54: POC Glucose 504 H* 05/14/24 11:03: POC Glucose 398 H* 05/14/24 12:20: POC Glucose 349 H* 05/14/24 13:04: POC Glucose 296 H 05/14/24 13:25: Sodium 134 L, Potassium 5.1, Chloride 106, Carbon Dioxide 14 L, Anion Gap 19.1 H, BUN 57 H, Creatinine 1.50 H, Estimated Creat Clear 71, Estimated GFR 48 L, Est GFR ( Amer) 58 L D, Glucose 310 H D, Calcium 9.3, Phosphorus 3.7, Magnesium 3.2 H 05/14/24 14:06: POC Glucose 293 H 05/14/24 : Hemoglobin A1c 11.1 H, Acetone Level Small I & O for Last 24 hours: Intake & Output 05/11/24 05/12/24 05/13/24 05/14/24 23:59 23:59 23:59 23:59 Intake Total 1624.763 / 1624.763 Balance 1624.763 / 1624.763 Weight 97.522 kg Constitutional Constitutional: no acute distress and obese *Routine HEENT Exam Head: Present normocephalic Eye: Present EOMI and PERRL ENT: Present mucous membranes moist *Routine Neck Exam Neck: Present supple; Absent lymphadenopathy *Routine Respiratory Exam Respiratory: Present CTA bilaterally *Routine Cardiovascular Exam Cardiovascular: Present RRR *Routine Abdominal Exam Abdominal: Present soft, normoactive bowel sounds and tenderness *Routine Rectal Exam Rectal:: deferred *Routine Genitalia Exam Genitalia:: deferred *Routine Extremities Exam Extremities: Absent cyanosis, clubbing or edema *Routine Skin Exam Skin: Present warm; Absent rash *Routine Neurological Exam Neurological: Present alert and oriented X3 Assessment and Plan *Assessment and plan (1) DKA (diabetic ketoacidosis): Status: Acute Category: Medical Code(s): E11.10 - Type 2 diabetes mellitus with ketoacidosis without coma Plan Seamus Persaud is a 63-year-old male with a medical history significant for insulin-dependent type 2 diabetes, COPD, non-small cell lung carcinoma s/p chemoradiotherapy in remission, hypertension, anxiety/depression who presents generalized weakness, abdominal cramping for the past week. Patient states he had recently been started on Mounjaro, and last week he decided he did not enjoy sticking himself or insulin anymore and discontinued. A few days later, patient began having generalized weakness, nausea without vomiting, abdominal cramping which progressively became worse. Currently denies chest pain, shortness of breath. Workup in the ED significant for blood glucose 755, AGAP 33.4, bicarb 8, pH 7.25, ketonuria, positive acetone. Patient had stable vital signs during this time. CXR, head CT unremarkable. Case discussed with ED provider and decision was made to admit patient for diabetic ketoacidosis. #Diabetic ketoacidosis #Insulin-dependent type 2 diabetes ? Stopped taking insulin about a week ago because he did not appreciate being stuck by needles anymore, and that he was already taking Mounjaro among other diabetic medications. ? No signs of other triggers including infection at this time ? Blood glucose 755, AGAP 33.4, bicarb 8, pH 7.25, ketonuria, positive acetone. Already improving with IV fluids, insulin drip ? Hemoglobin A1c 11.1% ? Given 3 L bolus. ? Continue IV insulin drip per titration protocol. ? Continue NS at 150 mL/h. Transition to D5 1/2 NS once blood glucose less than 250. ? Follow-up BMP, AGAP. Once AGAP closes x 2, bridge with SQ 22 units Lantus (home dose) if patient is able to tolerate diet. Discontinue insulin drip 2 hours thereafter. ? Nutrition consulted. ? Resumed home gabapentin at reduced dose of 300 mg 3 times daily given TISHA. #TISHA ? Initial creatinine 2.1, improving to 1.5 with IV fluid resuscitation. ? Hold nephrotoxic medications. #Hypertension ? BP currently stable. ? Hold home torsemide, spironolactone, metoprolol, lisinopril, Imdur in the setting of TISHA and stable pressures. #COPD ? Stable. Resumed home Spiriva. #Anxiety/depression ? Continue home amitriptyline. #Chronic pain syndrome #Degenerative disc disease ? Resumed home oxycodone 10 mg 4 times a day as needed. Full code DVT prophylaxis: Lovenox 40 mg
[2024-05-14 15:07] LABS: POC Glucose,Bedside 275 (70-110)
[2024-05-14 16:05] LABS: POC Glucose,Bedside 240 (70-110)
[2024-05-14] MEDS: Dex 5% in 0.45% NaCl 1,000 ML 150 ML IV (17:24)
[2024-05-14 17:26] LABS: POC Glucose,Bedside 199 (70-110)
--- NOTE | 2024-05-14 17:41 | PC.NURSE ---
Pt has rested well in his room since arrival to unit. pt has had several family members come and visit as well. pt has been NPO since admission with ice chips and water being provided. pt has repeatedly asked for food, diet pops or juice. when pt is reminded that he is NPO while he is on the insulin drip, he becomes agreeable but slightly disgruntled about not being allowed to have anything other than water. pt lungs are clear, bowel sounds are active in all quads. pt was able to ambulate to the bathroom with assistance from staff. pt was able to have a moderate (per Patient) bm. pt also voided urine while in the restroom. pt was then set up on the side of the bed and was able to wash himself up with a wash basin. pt is a/o x 4. nad noted. no edema noted in any extremities.
[2024-05-14 17:45] LABS: Chloride 107 mmol/L (98-107)
[2024-05-14 17:46] LABS: Potassium 4.6 mmoL/L (3.5-5.1); Sodium 133 mmol/L (136-145)
[2024-05-14 17:48] LABS: Anion Gap 14.6 mEq/L (5-15); Blood Urea Nitrogen 48 mg/dl (9-20); Carbon Dioxide 16 mmol/L (22.0-30.0); Creatinine Clearance Estimated 82 mL/min (50-200); Estimated Glomerular Filt Rate 56 ml/min (>60); GFR (African American) 68 ML/MIN (>60)
[2024-05-14 17:49] LABS: Calcium 9.2 mg/dl (8.4-10.2); Glucose 220 mg/dl (74-100); Phosphorous 2.6 mg/dl (2.5-4.5)
[2024-05-14 18:14] LABS: POC Glucose,Bedside 206 (70-110)
[2024-05-14] MEDS: KCl 20mEq/100ml 100 ML 20 MEQ IV (18:21)
[2024-05-14 19:05] LABS: POC Glucose,Bedside 217 (70-110)
[2024-05-14] MEDS: FAMOTIDINE 20MG TABLET 20 MG PO (20:08)
[2024-05-14] MEDS: AMITRIPTYLINE 50MG TABLET 50 MG PO (20:09)
[2024-05-14] MEDS: GABAPENTIN 800MG TABLET 300 MG PO (20:09)
[2024-05-14 21:26] LABS: POC Glucose,Bedside 232 (70-110)
[2024-05-14 22:37] LABS: POC Glucose,Bedside 223 (70-110)
[2024-05-14 22:40] LABS: Chloride 114 mmol/L (98-107); Potassium 3.9 mmoL/L (3.5-5.1); Sodium 132 mmol/L (136-145)
[2024-05-14 22:43] LABS: Anion Gap 9.9 mEq/L (5-15); Blood Urea Nitrogen 35 mg/dl (9-20); Carbon Dioxide 12 mmol/L (22.0-30.0); Creatinine Clearance Estimated 107 mL/min (50-200); Estimated Glomerular Filt Rate 98 ml/min (>60); GFR (African American) 119 ML/MIN (>60); Glucose 202 mg/dl (74-100)
[2024-05-14 22:44] LABS: Magnesium 2.4 mg/dl (1.6-2.3)
[2024-05-14 22:47] LABS: Phosphorous 1.8 mg/dl (2.5-4.5)
--- NOTE | 2024-05-14 23:20 | PC.NURSE ---
Addendum entered by La Grey RN 05/15/24 00:26: Keep insulin infusion running @ current dose for 2 hours after administering SQ insulin. Original Note: Notified provider pt anion gap is closed. Provider states to give pt his home dose of lantus 22u. DC current fluids and start 0.45% NS @ 125ml/hr. Start diabetic diet on pt at this time.
[2024-05-14 23:25] LABS: POC Glucose,Bedside 201 (70-110)
[2024-05-14] MEDS: INSULIN GLARGINE 100 UNITS/ML 10ML VIAL 22 UNIT SUBCUT (23:46)
[2024-05-14] MEDS: SODIUM CHLORIDE 0.45 % 1,000 ML 125 ML IV (23:46)
[2024-05-15] VITALS (28 sets, daily range): BP systolic 95–134; BP diastolic 50–78; PULSE 81–110; RESP 12–24; TEMP 36.4–37.1; O2SAT 93–100; BMI 34.0
[2024-05-15 00:30] LABS: POC Glucose,Bedside 198 (70-110)
[2024-05-15 01:12] LABS: Anion Gap 17.1 mEq/L (5-15); Blood Urea Nitrogen 41 mg/dl (9-20); Calcium 8.9 mg/dl (8.4-10.2); Carbon Dioxide 15 mmol/L (22.0-30.0); Chloride 105 mmol/L (98-107); Creatinine Clearance Estimated 89 mL/min (50-200); Estimated Glomerular Filt Rate 62 ml/min (>60); GFR (African American) 74 ML/MIN (>60); Glucose 219 mg/dl (74-100); Phosphorous 2.6 mg/dl (2.5-4.5); Potassium 5.1 mmoL/L (3.5-5.1); Sodium 132 mmol/L (136-145)
[2024-05-15 01:22] LABS: POC Glucose,Bedside 195 (70-110)
--- NOTE | 2024-05-15 01:46 | PC.NURSE ---
Insulin gtt turned off at 0146.
[2024-05-15 03:31] LABS: POC Glucose,Bedside 168 (70-110)
[2024-05-15] MEDS: humaLOG 100 UNITS/ML 10ML VIAL (SSI) SUBCUT (06:28)
[2024-05-15 06:32] LABS: POC Glucose,Bedside 164 (70-110)
--- NOTE | 2024-05-15 06:47 | PC.NURSE ---
Pt A/O x4. Insulin gtt remains off. Pt FSBS in 160s past 2 checks. Pt has not voiced any complaints to staff throughout shift. Using urinal at bedside. Call light within reach.
[2024-05-15] MEDS: SODIUM CHLORIDE 0.45 % 1,000 ML 125 ML IV (08:00)
[2024-05-15 08:20] LABS: Chloride 105 mmol/L (98-107); Sodium 133 mmol/L (136-145)
[2024-05-15 08:21] LABS: Potassium 5.3 mmoL/L (3.5-5.1)
[2024-05-15 08:23] LABS: Blood Urea Nitrogen 35 mg/dl (9-20); Creatinine Clearance Estimated 101 mL/min (50-200); Estimated Glomerular Filt Rate 68 ml/min (>60); GFR (African American) 82 ML/MIN (>60)
[2024-05-15 08:24] LABS: Anion Gap 19.3 mEq/L (5-15); Calcium 9.4 mg/dl (8.4-10.2); Carbon Dioxide 14 mmol/L (22.0-30.0); Glucose 159 mg/dl (74-100); Magnesium 2.8 mg/dl (1.6-2.3); Phosphorous 2.5 mg/dl (2.5-4.5)
[2024-05-15] MEDS: K-PHOS NEUTRAL 250MG TABLET 250 MG PO ×3 (08:44→20:48)
[2024-05-15] MEDS: GABAPENTIN 300MG CAPSULE 300 MG PO ×2 (08:44→20:48)
[2024-05-15] MEDS: ENOXAPARIN 40MG/0.4ML SYRINGE 40 MG SUBCUT (08:45)
[2024-05-15] MEDS: CLOPIDOGREL 75MG TAB 75 MG PO (08:45)
[2024-05-15] MEDS: TIOTROPIUM 18MCG/PUFF INHALER 1 CAP IH (09:19)
[2024-05-15] MEDS: INSULIN GLARGINE 100 UNITS/ML 10ML VIAL 10 UNIT SUBCUT (09:44)
[2024-05-15] MEDS: LACTATED RINGERS 1000ML 1,000 ML 999 ML IV (09:44)
[2024-05-15] MEDS: Dex 5% in 0.45% NaCl 1,000 ML 100 ML IV (10:45)
[2024-05-15 10:46] LABS: Vitamin B12 932 pg/mL (239-931)
[2024-05-15] MEDS: INSULIN REGULAR, HUMAN 100 UNIT in 0.9 % SODIUM CHLORIDE 100 ML IV (10:49)
[2024-05-15 10:53] LABS: POC Glucose,Bedside 191 (70-110)
[2024-05-15 10:58] LABS: Magnesium 2.9 mg/dl (1.6-2.3)
[2024-05-15 12:39] LABS: POC Glucose,Bedside 196 (70-110)
[2024-05-15 13:23] LABS: POC Glucose,Bedside 175 (70-110)
[2024-05-15 14:21] LABS: POC Glucose,Bedside 236 (70-110)
[2024-05-15 15:03] LABS: Chloride 102 mmol/L (98-107); Sodium 125 mmol/L (136-145)
[2024-05-15 15:06] LABS: Anion Gap 8.8 mEq/L (5-15); Blood Urea Nitrogen 31 mg/dl (9-20); Calcium 8.2 mg/dl (8.4-10.2); Carbon Dioxide 18 mmol/L (22.0-30.0); Creatinine Clearance Estimated 112 mL/min (50-200); Estimated Glomerular Filt Rate 76 ml/min (>60); GFR (African American) 92 ML/MIN (>60); Glucose 290 mg/dl (74-100); Potassium 3.8 mmoL/L (3.5-5.1)
[2024-05-15 15:11] LABS: POC Glucose,Bedside 274 (70-110)
[2024-05-15 16:12] LABS: POC Glucose,Bedside 247 (70-110)
[2024-05-15] MEDS: D5W/0.45% NaCl w/20mEq KCL 1,000 ML 100 ML IV (16:24)
[2024-05-15 17:14] LABS: POC Glucose,Bedside 234 (70-110)
--- NOTE | 2024-05-15 18:37 | PC.NURSE ---
pt has slept off and on this shift. following admin of gabapentin prior to lunch pt was difficult to arouse and stay awake. after several attempts at talking to pt he was able to stay awake and converse with staff and eat his lunch. pt stated to staff that he did not want his 1300 gabapentin because he felt too sleepy . nad noted, lungs are clear throughout. bowel sounds are active in all quads. pt is a/o x 4. pt is able to void clear yellow urine via urinal.
[2024-05-15 18:39] LABS: POC Glucose,Bedside 247 (70-110)
[2024-05-15 19:20] LABS: POC Glucose,Bedside 256 (70-110)
[2024-05-15 19:54] LABS: Chloride 103 mmol/L (98-107); Potassium 3.8 mmoL/L (3.5-5.1); Sodium 129 mmol/L (136-145)
[2024-05-15 19:57] LABS: Anion Gap 7.8 mEq/L (5-15); Blood Urea Nitrogen 27 mg/dl (9-20); Calcium 7.9 mg/dl (8.4-10.2); Carbon Dioxide 22 mmol/L (22.0-30.0); Creatinine Clearance Estimated 112 mL/min (50-200); Estimated Glomerular Filt Rate 76 ml/min (>60); GFR (African American) 92 ML/MIN (>60); Glucose 228 mg/dl (74-100)
--- NOTE | 2024-05-15 20:40 | PC.NURSE ---
Spoke with Maninder and rivas of hospitalist order to DC Isulin gtt and Dextrose IVF and administer 25u Lantus SQ. Maninder states to carry out order. Turn off insulin drip at time of SQ insulin admin. States to order next labs for AM labs. Repeated, verified, carried out.
[2024-05-15] MEDS: METOPROLOL TARTRATE 25MG TABLET 25 MG PO (20:48)
[2024-05-15] MEDS: ATORVASTATIN 40MG TABLET 40 MG PO (20:48)
[2024-05-15] MEDS: AMITRIPTYLINE 50MG TABLET 50 MG PO (20:48)
[2024-05-15] MEDS: FAMOTIDINE 20MG TABLET 20 MG PO (20:48)
[2024-05-15] MEDS: INSULIN GLARGINE 100 UNITS/ML 10ML VIAL 25 UNIT SUBCUT (21:04)
--- NOTE | 2024-05-15 21:05 | PC.NURSE ---
Insulin gtt stopped at 2105
[2024-05-15 21:09] LABS: POC Glucose,Bedside 205 (70-110)
[2024-05-15 21:09] LABS: POC Glucose,Bedside 252 (70-110)
[2024-05-15 22:28] LABS: POC Glucose,Bedside 216 (70-110)
[2024-05-16] VITALS (13 sets, daily range): BP systolic 97–126; BP diastolic 49–81; PULSE 86–97; RESP 14–22; TEMP 36.6–36.8; O2SAT 91–100; BMI 32.5
[2024-05-16 01:10] LABS: POC Glucose,Bedside 313 (70-110)
[2024-05-16 06:21] LABS: Chloride 102 mmol/L (98-107); Sodium 129 mmol/L (136-145)
[2024-05-16 06:22] LABS: Basophils # 0.1 K/mm3 (0-0.2); Basophils % 0.9 % (0.1-2.0); Eosinophils # 0.1 K/mm3 (0.0-0.4); Eosinophils % 1.9 % (0.1-12.0); Hematocrit 38.4 % (42.0-52.0); Lymphocytes # 1.6 K/mm3 (0.7-4.5); Lymphocytes % 28.1 % (10-50); Mean Corpuscular HGB Conc 33.9 g/dL (31.8-35.4); Mean Corpuscular Hemoglobin 31.6 pg (27.0-31.2); Mean Corpuscular Volume 93.4 fl (80-94); Mean Platelet Volume 7.8 fl (7.4-10.4); Monocytes # 0.5 K/mm3 (0.1-1.0); Monocytes % 8.6 % (1.7-9.3); Neutrophils # 3.5 K/mm3 (1.8-7.8); Neutrophils % 60.5 % (37.0-80.0); Platelet Count 227 K/mm3 (142-424); Red Blood Count 4.11 M/mm3 (4.60-6.20); Red Cell Distribution Width 13.5 % (11.5-17.5); White Blood Count 5.8 K/mm3 (4.8-10.8)
[2024-05-16] MEDS: TIOTROPIUM 18MCG/PUFF INHALER 1 CAP IH (06:22)
[2024-05-16 06:24] LABS: Blood Urea Nitrogen 22 mg/dl (9-20); Creatinine Clearance Estimated 97 mL/min (50-200); Estimated Glomerular Filt Rate 68 ml/min (>60); GFR (African American) 82 ML/MIN (>60)
[2024-05-16 06:25] LABS: Calcium 8.7 mg/dl (8.4-10.2); Carbon Dioxide 22 mmol/L (22.0-30.0); Glucose 242 mg/dl (74-100); Magnesium 2.1 mg/dl (1.6-2.3)
[2024-05-16] MEDS: humaLOG 100 UNITS/ML 10ML VIAL (SSI) SUBCUT ×2 (06:43→10:53)
[2024-05-16 06:44] LABS: POC Glucose,Bedside 237 (70-110)
[2024-05-16 07:02] LABS: Phosphorous 1.9 mg/dl (2.5-4.5)
--- NOTE | 2024-05-16 07:02 | PC.NURSE ---
Attempted to notify provider of critical phos 1.9. No answer at this time.
--- NOTE | 2024-05-16 07:32 | P.PN_ITS ---
Subjective *Date: 05/15/24 *Time: 07:32 Interval history: AGAP reopened up overnight, likely euglycemic DKA. However, patient feels well no nausea/vomiting, abdominal pain resolved. Will give fluids, insulin drip and reassess in the afternoon. Exam Data for Last 24 hours Vital signs and Labs for Last 24 Hours: Temp Pulse Resp BP Pulse Ox O2 Del Method 97.8 F 92 H 14 118/56 L 98 Room Air 05/16/24 04:57 05/16/24 06:49 05/16/24 06:49 05/16/24 06:49 05/16/24 06:49 05/16/24 06:50 Laboratory Results - last 24 hr 05/15/24 07:00: Sodium 133 L, Potassium 5.3 H, Chloride 105, Carbon Dioxide 14 L , Anion Gap 19.3 H, BUN 35 H, Creatinine 1.10, Estimated Creat Clear 101, Estimated GFR 68, Est GFR ( Amer) 82, Glucose 159 H D, Calcium 9.4, Phosphorus 2.5, Magnesium 2.8 H 05/15/24 07:00: Magnesium 2.9 H, Vitamin B12 932 H, Folate 17.70 05/15/24 10:43: POC Glucose 191 H 05/15/24 12:27: POC Glucose 196 H 05/15/24 13:15: POC Glucose 175 H 05/15/24 14:13: POC Glucose 236 H 05/15/24 14:40: Sodium 125 L, Potassium 3.8 D, Chloride 102, Carbon Dioxide 18 L, Anion Gap 8.8, BUN 31 H, Creatinine 1.00, Estimated Creat Clear 112, Estimated GFR 76, Est GFR ( Amer) 92, Glucose 290 H D, Calcium 8.2 L 05/15/24 15:05: POC Glucose 274 H 05/15/24 16:03: POC Glucose 247 H 05/15/24 17:04: POC Glucose 234 H 05/15/24 18:17: POC Glucose 247 H 05/15/24 19:03: POC Glucose 256 H 05/15/24 19:35: Sodium 129 L, Potassium 3.8, Chloride 103, Carbon Dioxide 22, Anion Gap 7.8, BUN 27 H, Creatinine 1.00, Estimated Creat Clear 112, Estimated GFR 76, Est GFR ( Amer) 92, Glucose 228 H D, Calcium 7.9 L 05/15/24 20:11: POC Glucose 205 H 05/15/24 20:54: POC Glucose 252 H 05/15/24 22:19: POC Glucose 216 H 05/16/24 01:02: POC Glucose 313 H* 05/16/24 05:25: WBC 5.8 D, RBC 4.11 L, Hgb 13.0 L, Hct 38.4 L, MCV 93.4, MCH 31.6 H, MCHC 33.9, RDW 13.5, Plt Count 227 D, MPV 7.8, Neut % (Auto) 60.5, Lymph % (Auto) 28.1, [place] % (Auto) 8.6, Eos % (Auto) 1.9, Baso % (Auto) 0.9, Neut # (Auto) 3.5, Lymph # (Auto) 1.6, [place] # (Auto) 0.5, Eos # (Auto) 0.1, Baso # (Auto) 0.1, Sodium 129 L, Potassium 4.0, Chloride 102, Carbon Dioxide 22, Anion Gap 9.0, BUN 22 H, Creatinine 1.10, Estimated Creat Clear 97, Estimated GFR 68, Est GFR ( Amer) 82, Glucose 242 H, Calcium 8.7, Phosphorus 1.9 L, Magnesium 2.1 D 05/16/24 06:26: POC Glucose 237 H I & O for Last 24 hours: Intake & Output 05/13/24 05/14/24 05/15/24 05/16/24 23:59 23:59 23:59 23:59 Intake Total 3362.617 / 3362.617 4538.168 / 4538.168 Output Total 500 / 1280 3230 / 3230 1825 / 1825 Balance 2862.617 / 2082.617 1308.168 / 1308.168 -1825 / -1825 Weight 97.069 kg 101.7 kg 97.3 kg Microbiology Reports for the Last 24 Hours: Microbiology 05/14/24 Unknown Blood Blood Culture - Preliminary NO GROWTH AFTER 48 HOURS 05/14/24 13:30 Blood Blood Culture - Preliminary NO GROWTH AFTER 24 HOURS Constitutional Constitutional: no acute distress and obese *Routine HEENT Exam Head: Present normocephalic Eye: Present EOMI and PERRL ENT: Present mucous membranes moist *Routine Neck Exam Neck: Present supple; Absent lymphadenopathy *Routine Respiratory Exam Respiratory: Present CTA bilaterally *Routine Cardiovascular Exam Cardiovascular: Present RRR *Routine Abdominal Exam Abdominal: Present soft and normoactive bowel sounds; Absent tenderness *Routine Extremities Exam Extremities: Absent cyanosis, clubbing or edema *Routine Skin Exam Skin: Present warm; Absent rash *Routine Neurological Exam Neurological: Present alert and oriented X3 Assessment and Plan *Assessment and plan (1) DKA (diabetic ketoacidosis): Status: Acute Category: Medical Code(s): E11.10 - Type 2 diabetes mellitus with ketoacidosis without coma Plan Seamus Persaud is a 63-year-old male with a medical history significant for insulin-dependent type 2 diabetes, COPD, non-small cell lung carcinoma s/p chemoradiotherapy in remission, hypertension, anxiety/depression who presents generalized weakness, abdominal cramping for the past week. Patient states he had recently been started on Mounjaro, and last week he decided he did not enjoy sticking himself or insulin anymore and discontinued. A few days later, patient began having generalized weakness, nausea without vomiting, abdominal cramping which progressively became worse. Currently denies chest pain, shortness of breath. Workup in the ED significant for blood glucose 755, AGAP 33.4, bicarb 8, pH 7.25, ketonuria, positive acetone. Patient had stable vital signs during this time. CXR, head CT unremarkable. Case discussed with ED provider and decision was made to admit patient for diabetic ketoacidosis. #Diabetic ketoacidosis #Insulin-dependent type 2 diabetes ? Stopped taking insulin about a week ago because he did not appreciate being stuck by needles anymore, and that he was already taking Mounjaro among other diabetic medications. ? No signs of other triggers including infection at this time ? Hemoglobin A1c 11.1% ? Initial blood glucose 755, AGAP 33.4, bicarb 8, pH 7.25, ketonuria, positive acetone. ? Blood sugars, AGAP improved with fluids and insulin drip. However reopened to 19 today with normal sugars euglycemic DKA from SGLT2i use at home. ? Given additional 10 units Lantus this morning, started insulin drip with D5 one half normal saline. ? Follow-up BMP, AGAP. Once AGAP closes x 2, bridge with SQ 25 units Lantus if patient is able to tolerate diet. ? Nutrition consulted. ? Resumed home gabapentin at reduced dose of 300 mg 3 times daily given TISHA. ? Patient needs insulin optimization before discharge. Likely requires Lantus 35 units in addition to continuing Jardiance, Mounjar. consider metformin as well. #TISHA ? Initial creatinine 2.1, improved back to baseline 1.0 with fluids. #Hypertension ? BP currently stable. ? Hold home torsemide, spironolactone, lisinopril, Imdur in the setting of TISHA and stable pressures. #COPD ? Stable. Resumed home Spiriva. #Anxiety/depression ? Continue home amitriptyline. #Chronic pain syndrome #Degenerative disc disease ? Resumed home oxycodone 10 mg 4 times a day as needed. Full code DVT prophylaxis: Lovenox 40 mg
[2024-05-16] MEDS: GABAPENTIN 300MG CAPSULE 300 MG PO ×2 (08:05→12:19)
[2024-05-16] MEDS: ENOXAPARIN 40MG/0.4ML SYRINGE 40 MG SUBCUT (08:05)
[2024-05-16] MEDS: METOPROLOL TARTRATE 25MG TABLET 25 MG PO (08:05)
[2024-05-16] MEDS: CLOPIDOGREL 75MG TAB 75 MG PO (08:05)
[2024-05-16] MEDS: K-PHOS NEUTRAL 250MG TABLET 250 MG PO (08:05)
--- NOTE | 2024-05-16 12:50 | EXP.DC.SUM ---
General Admission date:: 05/14/24 HPI HPI HPI: Seamus Persaud is a 63-year-old male with a medical history significant for insulin-dependent type 2 diabetes, COPD, non-small cell lung carcinoma s/p chemoradiotherapy in remission, hypertension, anxiety/depression who presents generalized weakness, abdominal cramping for the past week. Patient states he had recently been started on Mounjaro, and last week he decided he did not enjoy sticking himself or insulin anymore and discontinued. A few days later, patient began having generalized weakness, nausea without vomiting, abdominal cramping which progressively became worse. Currently denies chest pain, shortness of breath. Workup in the ED significant for blood glucose 755, AGAP 33.4, bicarb 8, pH 7.25, ketonuria, positive acetone. Patient had stable vital signs during this time. CXR, head CT unremarkable. Case discussed with ED provider and decision was made to admit patient for diabetic ketoacidosis. Hospital Course Hospital Course Hospital Course: Seamus Persaud is a 63-year-old male with a medical history significant for insulin-dependent type 2 diabetes, COPD, non-small cell lung carcinoma s/p chemoradiotherapy in remission, hypertension, anxiety/depression who presents generalized weakness, abdominal cramping for the past week. Patient states he had recently been started on Mounjaro, and last week he decided he did not enjoy sticking himself or insulin anymore and discontinued. A few days later, patient began having generalized weakness, nausea without vomiting, abdominal cramping which progressively became worse. Currently denies chest pain, shortness of breath. Workup in the ED significant for blood glucose 755, AGAP 33.4, bicarb 8, pH 7.25, ketonuria, positive acetone. Patient had stable vital signs during this time. CXR, head CT unremarkable. Case discussed with ED provider and decision was made to admit patient for diabetic ketoacidosis. #Diabetic ketoacidosis #Insulin-dependent type 2 diabetes ? Stopped taking insulin about a week ago because he understandably but unfortunately did not appreciate being stuck by needles anymore, and that he was already taking Mounjaro among other diabetic medications. ? No signs of other triggers including infection at this time. ? Hemoglobin A1c 11.1% ? Initial blood glucose 755, AGAP 33.4, bicarb 8, pH 7.25, ketonuria, positive acetone. ? Blood sugars, AGAP improved with fluids and insulin drip. However reopened to 19 with normal sugars suggestive of euglycemic DKA from SGLT2i use at home. Resolved as well with same treatment. - Nutrition consulted and provided counseling. - Increased daily Lantus to 35 units. Continue Arabella Leiva. - Will follow-up with PCP tomorrow, patient has already made an appointment. Counseled on medication adherence and checking blood sugars at home. #TISHA ? Initial creatinine 2.1, improved back to baseline 1.0 with fluids. #Hypertension ? BP currently stable. ? Holding home torsemide, spironolactone, lisinopril, Imdur as pressures have been stable here. Will follow-up with PCP tomorrow. #COPD ? Stable. Resumed home Spiriva. #Anxiety/depression ? Continue home amitriptyline. #Chronic pain syndrome #Degenerative disc disease ? Resumed home oxycodone 10 mg 4 times a day as needed. Exam Data for Last 24 hours Vital signs and Labs for Last 24 Hours: Temp Pulse Resp BP Pulse Ox O2 Del Method 97.8 F 91 H 22 103/57 L 95 Room Air 05/16/24 08:00 05/16/24 10:00 05/16/24 10:00 05/16/24 10:00 05/16/24 10:00 05/16/24 12:34 Laboratory Results - last 24 hr 05/15/24 13:15: POC Glucose 175 H 05/15/24 14:13: POC Glucose 236 H 05/15/24 14:40: Sodium 125 L, Potassium 3.8 D, Chloride 102, Carbon Dioxide 18 L, Anion Gap 8.8, BUN 31 H, Creatinine 1.00, Estimated Creat Clear 112, Estimated GFR 76, Est GFR ( Amer) 92, Glucose 290 H D, Calcium 8.2 L 05/15/24 15:05: POC Glucose 274 H 05/15/24 16:03: POC Glucose 247 H 05/15/24 17:04: POC Glucose 234 H 05/15/24 18:17: POC Glucose 247 H 05/15/24 19:03: POC Glucose 256 H 05/15/24 19:35: Sodium 129 L, Potassium 3.8, Chloride 103, Carbon Dioxide 22, Anion Gap 7.8, BUN 27 H, Creatinine 1.00, Estimated Creat Clear 112, Estimated GFR 76, Est GFR ( Amer) 92, Glucose 228 H D, Calcium 7.9 L 05/15/24 20:11: POC Glucose 205 H 05/15/24 20:54: POC Glucose 252 H 05/15/24 22:19: POC Glucose 216 H 05/16/24 01:02: POC Glucose 313 H* 05/16/24 05:25: WBC 5.8 D, RBC 4.11 L, Hgb 13.0 L, Hct 38.4 L, MCV 93.4, MCH 31.6 H, MCHC 33.9, RDW 13.5, Plt Count 227 D, MPV 7.8, Neut % (Auto) 60.5, Lymph % (Auto) 28.1, [place] % (Auto) 8.6, Eos % (Auto) 1.9, Baso % (Auto) 0.9, Neut # (Auto) 3.5, Lymph # (Auto) 1.6, [place] # (Auto) 0.5, Eos # (Auto) 0.1, Baso # (Auto) 0.1, Sodium 129 L, Potassium 4.0, Chloride 102, Carbon Dioxide 22, Anion Gap 9.0, BUN 22 H, Creatinine 1.10, Estimated Creat Clear 97, Estimated GFR 68, Est GFR ( Amer) 82, Glucose 242 H, Calcium 8.7, Phosphorus 1.9 L, Magnesium 2.1 D 05/16/24 06:26: POC Glucose 237 H I & O for Last 24 hours: Intake & Output 05/13/24 05/14/24 05/15/24 05/16/24 23:59 23:59 23:59 23:59 Intake Total 3362.617 / 3362.617 4538.168 / 4538.168 420 / 420 Output Total 500 / 1280 3230 / 3230 2375 / 2375 Balance 2862.617 / 2082.617 1308.168 / 1308.168 -1954 / Weight 97.069 kg 101.7 kg 97.3 kg Microbiology Reports for the Last 24 Hours: Microbiology 05/14/24 Unknown Blood Blood Culture - Preliminary NO GROWTH AFTER 48 HOURS 05/14/24 13:30 Blood Blood Culture - Preliminary NO GROWTH AFTER 24 HOURS Constitutional Constitutional: no acute distress and obese *Routine HEENT Exam Head: Present normocephalic Eye: Present EOMI and PERRL ENT: Present mucous membranes moist *Routine Neck Exam Neck: Present supple; Absent lymphadenopathy *Routine Respiratory Exam Respiratory: Present CTA bilaterally *Routine Cardiovascular Exam Cardiovascular: Present RRR *Routine Abdominal Exam Abdominal: Present soft and normoactive bowel sounds; Absent tenderness *Routine Extremities Exam Extremities: Absent cyanosis, clubbing or edema *Routine Skin Exam Skin: Present warm; Absent rash *Routine Neurological Exam Neurological: Present alert and oriented X3 Results Data Completed and Pending Labs on day of discharge: Labs from last 24 hours 05/16/24 05/16/24 05/16/24 06:26 05:25 01:02 WBC 5.8 D RBC 4.11 L Hgb 13.0 L Hct 38.4 L MCV 93.4 MCH 31.6 H MCHC 33.9 RDW 13.5 Plt Count 227 D MPV 7.8 Neut % (Auto) 60.5 Lymph % (Auto) 28.1 [place] % (Auto) 8.6 Eos % (Auto) 1.9 Baso % (Auto) 0.9 Neut # (Auto) 3.5 Lymph # (Auto) 1.6 [place] # (Auto) 0.5 Eos # (Auto) 0.1 Baso # (Auto) 0.1 Sodium 129 L Potassium 4.0 Chloride 102 Carbon Dioxide 22 Anion Gap 9.0 BUN 22 H Creatinine 1.10 Estimated Creat Clear 97 Estimated GFR 68 Est GFR ( Amer) 82 Glucose 242 H POC Glucose 237 H 313 H* Calcium 8.7 Phosphorus 1.9 L Magnesium 2.1 D 05/15/24 05/15/24 05/15/24 22:19 20:54 20:11 WBC RBC Hgb Hct MCV MCH MCHC RDW Plt Count MPV Neut % (Auto) Lymph % (Auto) [place] % (Auto) Eos % (Auto) Baso % (Auto) Neut # (Auto) Lymph # (Auto) [place] # (Auto) Eos # (Auto) Baso # (Auto) Sodium Potassium Chloride Carbon Dioxide Anion Gap BUN Creatinine Estimated Creat Clear Estimated GFR Est GFR ( Amer) Glucose POC Glucose 216 H 252 H 205 H Calcium Phosphorus Magnesium 05/15/24 05/15/2405/15/24 19:35 19:03 18:17 WBC RBC Hgb Hct MCV MCH MCHC RDW Plt Count MPV Neut % (Auto) Lymph % (Auto) [place] % (Auto) Eos % (Auto) Baso % (Auto) Neut # (Auto) Lymph # (Auto) [place] # (Auto) Eos # (Auto) Baso # (Auto) Sodium 129 L Potassium 3.8 Chloride 103 Carbon Dioxide 22 Anion Gap 7.8 BUN 27 H Creatinine 1.00 Estimated Creat Clear 112 Estimated GFR 76 Est GFR ( Amer) 92 Glucose 228 H D POC Glucose 256 H 247 H Calcium 7.9 L Phosphorus Magnesium 05/15/24 05/15/24 05/15/24 17:04 16:03 15:05 WBC RBC Hgb Hct MCV MCH MCHC RDW Plt Count MPV Neut % (Auto) Lymph % (Auto) [place] % (Auto) Eos % (Auto) Baso % (Auto) Neut # (Auto) Lymph # (Auto) [place] # (Auto) Eos # (Auto) Baso # (Auto) Sodium Potassium Chloride Carbon Dioxide Anion Gap BUN Creatinine Estimated Creat Clear Estimated GFR Est GFR ( Amer) Glucose POC Glucose 234 H 247 H 274 H Calcium Phosphorus Magnesium 05/15/24 05/15/24 05/15/24 14:40 14:13 13:15 WBC RBC Hgb Hct MCV MCH MCHC RDW Plt Count MPV Neut % (Auto) Lymph % (Auto) [place] % (Auto) Eos % (Auto) Baso % (Auto) Neut # (Auto) Lymph # (Auto) [place] # (Auto) Eos # (Auto) Baso # (Auto) Sodium 125 L Potassium 3.8 D Chloride 102 Carbon Dioxide 18 L Anion Gap 8.8 BUN 31 H Creatinine 1.00 Estimated Creat Clear 112 Estimated GFR 76 Est GFR ( Amer) 92 Glucose 290 H D POC Glucose 236 H 175 H Calcium 8.2 L Phosphorus Magnesium Preliminary micro results at discharge 05/14/24 Unknown Blood Culture - Preliminary Blood NO GROWTH AFTER 48 HOURS 05/14/24 13:30 Blood Culture - Preliminary Blood NO GROWTH AFTER 24 HOURS DS: Diagnosis Discharge Diagnosis (1) DKA (diabetic ketoacidosis): Status: Acute Code(s): E11.10 - Type 2 diabetes mellitus with ketoacidosis without coma Meds Home Medications and Allergies Home Medications ?Medication ?Instructions ?Recorded ?Confirmed ?Type oxycodone 10 mg tablet 10 mg PO TID 03/31/23 05/14/24 History rosuvastatin 40 mg tablet 40 mg PO HS 03/31/23 05/14/24 History lisinopril 5 mg tablet 5 mg PO DAILY #90 tabs 06/16/23 05/14/24 Rx metoprolol tartrate 25 mg tablet 25 mg PO BID #90 tabs 06/16/23 05/14/24 Rx isosorbide mononitrate 60 mg 60 mg PO DAILY #90 tabs 12/03/23 05/14/24 Rx tablet,extended release 24 hr amitriptyline 50 mg tablet 50 mg PO HS 12/07/23 05/14/24 History famotidine 20 mg tablet 20 mg PO HS 12/07/23 05/14/24 History tiotropium bromide 18 mcg capsule 1 cap inhalation DAILY 90 days 01/18/24 05/14/24 Rx with inhalation device (Spiriva #180 puffs with HandiHaler) tirzepatide 2.5 mg/0.5 mL 2.5 mg SQ WEEKLY 04/06/24 05/14/24 History subcutaneous pen injector (Mounjaro) acetaminophen 650 mg 650 mg PO Q8H #90 tabs 04/18/24 05/14/24 Rx tablet,extended release (Tylenol Arthritis Pain) albuterol sulfate 90 mcg/actuation 2 inh inhalation QIDP PRN 05/14/24 05/14/24 History aerosol inhaler shortness of breath or wheezing clopidogrel 75 mg tablet 75 mg PO DAILY 05/14/24 05/14/24 History diclofenac sodium 1 % topical gel 2 g topical DAILY 05/14/24 05/14/24 History (Voltaren Arthritis Pain) empagliflozin 25 mg tablet 25 mg PO DAILY 05/14/24 05/14/24 History ergocalciferol (vitamin D2) 1,250 1,250 mcg PO WEEKLY 05/14/24 05/14/24 History mcg (50,000 unit) capsule hydroxyzine pamoate 25 mg capsule 25 mg PO TIDP PRN Anxiety 05/14/24 05/14/24 History (Vistaril) spironolactone 50 mg tablet 50 mg PO DAILY 05/14/24 05/14/24 History torsemide 100 mg tablet 100 mg PO DAILY 05/14/24 05/14/24 History gabapentin 800 mg tablet 300 mg (0.375 x 800 mg) PO TID 30 05/16/24 05/14/24 Rx days #0 tabs insulin glargine 100 unit/mL (3 35 unit (0.35 mL) SQ HS 30 days #0 05/16/24 05/14/24 Rx mL) subcutaneous pen (Lantus mL Solostar U-100 Insulin) New Prescriptions to Start Prescriptions: Allergies Allergy/AdvReac Type Severity Reaction Status Date / Time naproxen (NAPROXEN) Allergy Mild NA-NAUSEA/V Verified 04/18/24 09:03 OMITING tramadol (TRAMADOL) Allergy Mild NA-NAUSEA Verified 04/18/24 09:03 Discharge Plan Disposition Patient Disposition: Home, Self-Care Condition: Fair Discharge Order Discharge Orders: Discharge Order (Routine); Ordered 05/16/24 Ordered By: Tyrell Coyle Follow up Plan Follow up with: Kyler Holloway MD [Primary Care Provider] - 05/17/24 Prescriptions/Medication Reconciliation: Continued rosuvastatin 40 mg tablet 40 mg PO HS oxycodone 10 mg tablet 10 mg PO TID metoprolol tartrate 25 mg tablet 25 mg PO BID Qty: 90 0RF Mounjaro 2.5 mg/0.5 mL pen injector 2.5 mg SQ WEEKLY acetaminophen [Tylenol Arthritis Pain] 650 mg tablet extended release 650 mg PO Q8H Qty: 90 0RF amitriptyline 50 mg tablet 50 mg PO HS famotidine 20 mg tablet 20 mg PO HS tiotropium bromide [Spiriva with HandiHaler] 18 mcg capsule, w/inhalation device 1 cap inhalation DAILY 90 Days Qty: 180 3RF Rx Instructions: puncture 1 cap using device; one dose = 2 inhalations clopidogrel 75 mg tablet 75 mg PO DAILY ergocalciferol (vitamin D2) 1,250 mcg (50,000 unit) capsule 1,250 mcg PO WEEKLY albuterol sulfate 90 mcg/actuation HFA aerosol inhaler 2 inh IH QIDP PRN (Reason: shortness of breath or wheezing) hydroxyzine pamoate [Vistaril] 25 mg capsule 25 mg PO TIDP PRN (Reason: Anxiety) diclofenac sodium [Voltaren Arthritis Pain] 1 % gel 2 g topical DAILY Rx Instructions: apply to medial left/right knees prn once per day empagliflozin 25 mg tablet 25 mg PO DAILY Changed gabapentin 800 mg tablet 300 mg PO TID 30 Days Qty: 0 0RF insulin glargine [Lantus Solostar U-100 Insulin] 100 unit/mL (3 mL) insulin pen 35 unit SQ HS 30 Days Qty: 0 0RF Held lisinopril 5 mg tablet 5 mg PO DAILY Qty: 90 0RF Hold Instructions: Resume on 06/06/24. Your blood pressures were on the lower side during admission. Please talk to your PCP about restarting this medication. isosorbide mononitrate 60 mg tablet extended release 24 hr 60 mg PO DAILY Qty: 90 1RF Hold Instructions: Resume on 06/06/24. Your blood pressures were on the lower side during admission. Please talk to your PCP about restarting this medication. torsemide 100 mg tablet 100 mg PO DAILY Hold Instructions: Resume on 06/06/24. Your blood pressures were on the lower side during admission. Please talk to your PCP about restarting this medication. spironolactone 50 mg tablet 50 mg PO DAILY Hold Instructions: Resume on 06/06/24. Your blood pressures were on the lower side during admission. Please talk to your PCP about restarting this medication. Problem Reconciliation Problems Reviewed?: Yes Patient Discharge Instructions DIET: diabetic diet Additional Instructions: Please check your blood sugars before giving yourself insulin. Patient Instructions: Low Glycemic Index Diets (Alternative Therapy), Carbohydrate-Counting Diet, DI for Diabetic Ketoacidosis Print Language: [place] Providers Primary Care Provider: Kyler Holloway Admit Provider: Tyrell Coyle Attending Provider: Tyrell Coyle
--- NOTE | 2024-05-18 10:30 | SW/DCPLANNER ---
Spoke with patient on the phone. Patient stated that he is doing well. Patient stated that he has no concerns or questions at this time. Hiram Everett
== END 2024-05-16 13:35 | disposition home or self-care (01) | DRG 638 ==
LOC: ER 07:12 → 2ND 09:04
PROVIDERS: Emergency Medicine; Family Medicine; Admitting Provider Student in an Organized Health Care Education/Training Program; Emergency Provider Student in an Organized Health Care Education/Training Program; PCP Family Medicine; Visit Provider Student in an Organized Health Care Education/Training Program
DX: E11.10 Type 2 diabetes mellitus with ketoacidosis without coma (principal); C34.32 Malignant neoplasm of lower lobe, left bronchus or lung; N17.9 Acute kidney failure, unspecified; Z79.899 Other long term (current) drug therapy; I10 Essential (primary) hypertension; J44.9 Chronic obstructive pulmonary disease, unspecified; Z79.4 Long term (current) use of insulin; T38.3X6A Underdosing of insulin and oral hypoglycemic [antidiabetic] drugs, initial encounter; Z91.128 Patient's intentional underdosing of medication regimen for other reason; G89.4 Chronic pain syndrome; Z87.891 Personal history of nicotine dependence
CPT/HCPCS: 36415; 70450; 71045; 80048; 80053; 81001; 82009; 82550; 82607; 82746; 82803; 82962; 83036; 83690; 83735; 84100; 84436; 84443; 84484; 85007; 85025; 85378; 87040; 87086; 93005; 94640; 99291; J1650; J7030; J7120

== ENCOUNTER 2024-05-24 18:00 | Emergency (ER) | payer BC, SELFPAY ==
[2024-05-24 18:30] VITALS: BP 97/76; PULSE 86; RESP 18; TEMP 37.1; O2SAT 100; BMI 36.6
--- NOTE | 2024-05-24 18:53 | ED_ITS ---
Discharge Plan Disposition Patient Disposition: Home, Self-Care Condition: Good Prescriptions Prescriptions: No Action rosuvastatin 40 mg tablet 40 mg PO HS oxycodone 10 mg tablet 10 mg PO TID lisinopril 5 mg tablet 5 mg PO DAILY Qty: 90 0RF metoprolol tartrate 25 mg tablet 25 mg PO BID Qty: 90 0RF Mounjaro 2.5 mg/0.5 mL pen injector 2.5 mg SQ WEEKLY acetaminophen [Tylenol Arthritis Pain] 650 mg tablet extended release 650 mg PO Q8H Qty: 90 0RF amitriptyline 50 mg tablet 50 mg PO HS famotidine 20 mg tablet 20 mg PO HS isosorbide mononitrate 60 mg tablet extended release 24 hr 60 mg PO DAILY Qty: 90 1RF tiotropium bromide [Spiriva with HandiHaler] 18 mcg capsule, w/inhalation device 1 cap inhalation DAILY 90 Days Qty: 180 3RF Rx Instructions: puncture 1 cap using device; one dose = 2 inhalations clopidogrel 75 mg tablet 75 mg PO DAILY torsemide 100 mg tablet 100 mg PO DAILY ergocalciferol (vitamin D2) 1,250 mcg (50,000 unit) capsule 1,250 mcg PO WEEKLY albuterol sulfate 90 mcg/actuation HFA aerosol inhaler 2 inh IH QIDP PRN (Reason: shortness of breath or wheezing) spironolactone 50 mg tablet 50 mg PO DAILY hydroxyzine pamoate [Vistaril] 25 mg capsule 25 mg PO TIDP PRN (Reason: Anxiety) diclofenac sodium [Voltaren Arthritis Pain] 1 % gel 2 g topical DAILY Rx Instructions: apply to medial left/right knees prn once per day empagliflozin 25 mg tablet 25 mg PO DAILY gabapentin 800 mg tablet 300 mg PO TID 30 Days Qty: 0 0RF insulin glargine [Lantus Solostar U-100 Insulin] 100 unit/mL (3 mL) insulin pen 35 unit SQ HS 30 Days Qty: 0 0RF Referrals Follow up/Referrals: Asif Sorenson [Referring] - See instructions Kyler Holloway MD [Primary Care Provider] - See instructions Activity Restrictions/Add. Instructions Additional Instructions/Restrictions: The actual phone number I have for Dr. Sorenson is [phone]. Call in the morning to make your appointment. Follow-up with your PCP for any worsening signs or symptoms as needed. Clinical Impressions Clinical Impression: Paresthesia and pain of left extremity Print Language Print Language: Tamazight Discharge ED Provider: Nilson Davis General Adult HPI <LUIS EDUARDO Mcknight - Last Filed: 05/24/24 20:10> General Chief complaint: PAIN Stated complaint: left hand pain Time Seen by Provider: 05/24/24 18:27 Mode of Arrival: Ambulatory Source of Information: Patient Limitations: No Limitations Description of Symptoms (Recalled from ER Triage Doc. by RN): c/o left hand pain btw knuckles and fingers after carpel tunnel surgery in December. Pt report that the pain comes and goes but it not getting any better. Denies any injury History of Present Illness HPI narrative: Patient presents for evaluation of pain of his left hand. Patient states that he had a carpal tunnel release by Dr. Dickerson in December of this year. Patient states that he is had continued numbness and tingling of his left hand since. He denies any new complaints new trauma and presents today for evaluation. Related Data Home Medications ?Medication ?Instructions ?Recorded ?Confirmed oxycodone 10 mg tablet 10 mg PO TID 03/31/23 05/14/24 rosuvastatin 40 mg tablet 40 mg PO HS 03/31/23 05/14/24 amitriptyline 50 mg tablet 50 mg PO HS 12/07/23 05/14/24 famotidine 20 mg tablet 20 mg PO HS 12/07/23 05/14/24 tirzepatide 2.5 mg/0.5 mL 2.5 mg SQ WEEKLY 04/06/24 05/14/24 subcutaneous pen injector (Arabella) albuterol sulfate 90 mcg/actuation 2 inh inhalation QIDP PRN 05/14/24 05/14/24 aerosol inhaler shortness of breath or wheezing clopidogrel 75 mg tablet 75 mg PO DAILY 05/14/24 05/14/24 diclofenac sodium 1 % topical gel 2 g topical DAILY 05/14/24 05/14/24 (Voltaren Arthritis Pain) empagliflozin 25 mg tablet 25 mg PO DAILY 05/14/24 05/14/24 ergocalciferol (vitamin D2) 1,250 1,250 mcg PO WEEKLY 05/14/24 05/14/24 mcg (50,000 unit) capsule hydroxyzine pamoate 25 mg capsule 25 mg PO TIDP PRN Anxiety 05/14/24 05/14/24 (Vistaril) spironolactone 50 mg tablet 50 mg PO DAILY 05/14/24 05/14/24 torsemide 100 mg tablet 100 mg PO DAILY 05/14/24 05/14/24 Previous Rx's ?Medication ?Instructions ?Recorded lisinopril 5 mg tablet 5 mg PO DAILY #90 tabs 06/16/23 metoprolol tartrate 25 mg tablet 25 mg PO BID #90 tabs 06/16/23 isosorbide mononitrate 60 mg 60 mg PO DAILY #90 tabs 12/03/23 tablet,extended release 24 hr tiotropium bromide 18 mcg capsule 1 cap inhalation DAILY 90 days 01/18/24 with inhalation device (Spiriva #180 puffs with HandiHaler) acetaminophen 650 mg 650 mg PO Q8H #90 tabs 04/18/24 tablet,extended release (Tylenol Arthritis Pain) gabapentin 800 mg tablet 300 mg (0.375 x 800 mg) PO TID 30 05/16/24 days #0 tabs insulin glargine 100 unit/mL (3 35 unit (0.35 mL) SQ HS 30 days #0 05/16/24 mL) subcutaneous pen (Lantus mL Solostar U-100 Insulin) Allergies Allergy/AdvReac Type Severity Reaction Status Date / Time naproxen (NAPROXEN) Allergy Mild NA-NAUSEA/V Verified 04/18/24 09:03 OMITING tramadol (TRAMADOL) Allergy Mild NA-NAUSEA Verified 04/18/24 09:03 [facility] <LUIS EDUARDO Mcknight - Last Filed: 05/24/24 20:10> [facility] Disclaimer: The information contained in this section may have been updated after the patient was seen, as this information can be updated by other users. Medical History Mood disorder intermediate use of drug Elevated serum creatinine History of lung cancer in adulthood Stopped smoking with greater than 30 pack year history COPD mixed type Mediastinal lymphadenopathy Hilar lymphadenopathy Dyspnea Typical angina Abnormal result of cardiovascular function study Diabetes Mediastinal lymphadenopathy Pulmonary emphysema COPD (chronic obstructive pulmonary disease) Obstructive sleep apnea (adult) (pediatric) H/O malignant neoplasm of lung Other emphysema Stopped smoking with greater than 30 pack year history Dyspnea on exertion YAMILE (obstructive sleep apnea) Dizziness Lightheaded Hypotension Edema Claudication 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 History of colonoscopy H/O arthroscopy of knee H/O arthroscopy of shoulder Family History Other No significant family history Social History (Updated 05/14/24 @ 11:03 by Alivia Cervantes RN) Smoking Status: Never smoker how long ago did patient quit smokin years; in 2017 second hand exposure: No alcohol intake: never counseling given: No counseling provided: provider counseling substance use type: marijuana counseling given: No current occupational status: disabled Travel in the last 8 weeks: None adopted: No caregiver/support person: No foster care: No household members: children housing: apartment lives independently: Yes marital status: single number of children: 4 number of grandchildren: 9 service: Yes (he was honorably discharged; cause of his back; he was in there for 2 years) 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 exposures/hazards: No Hx Recent Travel: No sexually active: No caffeine: Yes physical activity: none working smoke detector in home: Yes fire extinguisher in home: No carbon monox detector in home: Yes firearms in home: No do you feel safe at home: Yes victim of physical abuse: No victim of emotional abuse: No victim of sexual abuse: No would you like helpful sources: No Have you lived/traveled outside [place] in past 30 days?: No Contact w/someone who lives/traveled outside [place] past 30 days?: No Exposure to someone with infectious disease in past 14 days?: No Do you have a fever (greater than 100.4 F or 38 C)?: No Have you tested positive for COVID-19: No Exposed to someone with COVID-19 in past 14 days?: No Do you have a sore throat?: No Do you have a cough?: No Do you have any weakness?: No Do you have any diarrhea?: No Are you experiencing any unusual bleeding?: No Do you have any muscle aches/pain?: No Do you have any abdominal pain?: No Are you experiencing loss of taste or smell?: No Other Medical History Have you received the Flu Vaccine for this season: No Have you received the Pneumonia Vaccine: No <Ramone OrdonezLUIS EDUARDO gabriel - Last Filed: 05/24/24 20:10> ROS Obtained: Yes Systems reviewed as appropriate & no additional complaints except as documented Physical Exam <Ramone RayLUIS EDUARDO armas - Last Filed: 05/24/24 20:10> General General appearance: alert and in no apparent distress Head Head exam: atraumatic and normal inspection Respiratory Respiratory exam: Present normal lung sounds bilaterally Cardiovascular Cardiovascular exam: Present regular rate Neurological Exam Neurological exam: Present alert and oriented X3 Medical Decision Making <Ramone RayLUIS EDUARDO armas - Last Filed: 05/24/24 20:10> Medical Records Medical records reviewed: Yes I reviewed the patient's medical records. Screening: Per USPSTF and CDC recommendations, given the prevalence of disease in our region, it is our hospital?s policy to screen for HIV and viral Hepatitis for all patients aged 18 and over and those with ongoing risk factors. [place] Inquiry Pt receiving controlled substance: No Vital Signs: 05/24/24 18:30 05/24/24 18:58 Temperature 98.7 F 97.8 F Temperature Source Oral Oral Pulse Rate 92 H Pulse Rate [Left Radial] 86 Respiratory Rate 18 18 Blood Pressure 93/72 L Blood Pressure [Right Arm] 97/76 L Blood Pressure Mean [Right Arm] 83 02 Sat by Pulse Oximetry 100 Oxygen Delivery Method Room Air Medical Decision Narrative: In summary patient is a 63-year-old male who presents to the emergency department for evaluation of paresthesias of the left hand. Patient is hemodynamically stable upon arrival, afebrile. Physical exam is remarkable for full range of motion of the left hand however he has numbness and paresthesia of the first 2 digits primarily between the knuckles. He has a negative Tinel's negative Phalen's. Differential diagnosis includes paresthesia. Initial workup was considered with labs and imaging however there are no new complaints and this has been present for approximately 5 months now with no change. Thus no further workup will be pursued in the ER. Patient has followed up with Dr. Dickerson and patient is dissatisfied with his progress. Initial interventions were offered including bracing steroids however patient states I have tried all that it does not work . Given this I had an interactive discussion with the patient regarding management options which primarily include referral back to Dr. Dickerson referral to hand PT OT or referral for second opinion. Via patient directed decision making and discharge patient has elected a second opinion. Thus I have given the patient the contact information for Dr. Jack gaspar hand surgeon in [facility] at the patient's request. <Nilson Davis MD - Last Filed: 05/24/24 23:54> Vital Signs: 05/24/24 18:30 05/24/24 18:58 Temperature 98.7 F 97.8 F Temperature Source Oral Oral Pulse Rate 92 H Pulse Rate [Left Radial] 86 Respiratory Rate 18 18 Blood Pressure 93/72 L Blood Pressure [Right Arm] 97/76 L Blood Pressure Mean [Right Arm] 83 02 Sat by Pulse Oximetry 100 Oxygen Delivery Method Room Air Medical Decision Narrative: In summary patient is a 63-year-old male who presents to the emergency department for evaluation of paresthesias of the left hand. Patient is hemodynamically stable upon arrival, afebrile. Physical exam is remarkable for full range of motion of the left hand however he has numbness and paresthesia of the first 2 digits primarily between the knuckles. He has a negative Tinel's negative Phalen's. Differential diagnosis includes paresthesia. Initial workup was considered with labs and imaging however there are no new complaints and this has been present for approximately 5 months now with no change. Thus no further workup will be pursued in the ER. Patient has followed up with Dr. Dickerson and patient is dissatisfied with his progress. Initial interventions were offered including bracing steroids however patient states I have tried all that it does not work . Given this I had an interactive discussion with the patient regarding management options which primarily include referral back to Dr. Dickerson referral to hand PT OT or referral for second opinion. Via patient directed decision making and discharge patient has elected a second opinion. Thus I have given the patient the contact information for Dr. Jack gaspar hand surgeon in [facility] at the patient's request. I was consulted by the JACQUIE, and we discussed the complexity of the problems being addressed. I approved the treatment and management plan for this patient's care in the Emergency Department, thus performing a substantive portion of the medical decision making. Nilson Davis MD Critical Care <LUIS DEUARDO Mcknight - Last Filed: 05/24/24 20:10> Critical Care Time Critical Care Time: No
[2024-05-24 18:58] VITALS: BP 93/72; PULSE 92; RESP 18; TEMP 36.6; O2SAT 96
== END 2024-05-24 19:00 | disposition home or self-care (01) ==
PROVIDERS: Emergency Provider Emergency Medicine; PCP Family Medicine
DX: M79.642 Pain in left hand (principal); R20.2 Paresthesia of skin
CPT/HCPCS: 99282

== ENCOUNTER 2024-05-26 14:43 | Outpatient (CLI) | payer BC, SELFPAY | END 2024-05-26 23:59 | disposition home or self-care (01) | LOC: DIETICIAN 14:43 | PROVIDERS: PCP Family Medicine; Visit Provider Family Medicine | DX: E11.9 Type 2 diabetes mellitus without complications (principal) | CPT/HCPCS: 97802 ==

== ENCOUNTER 2024-05-30 16:49 | Observation (INO) | payer BC, SELFPAY ==
[2024-05-30] VITALS (16 sets, daily range): BP systolic 73–106; BP diastolic 48–74; PULSE 74–104; RESP 14–18; TEMP 36.5–36.6; O2SAT 24–99; BMI 36.6; BMI 35.8
--- NOTE | 2024-05-30 16:50 | ED_ITS ---
Discharge Plan Disposition Patient Disposition: Admitted Condition: Good Prescriptions Prescriptions: No Action rosuvastatin 40 mg tablet 40 mg PO HS oxycodone 10 mg tablet 10 mg PO TID lisinopril 5 mg tablet 5 mg PO DAILY Qty: 90 0RF metoprolol tartrate 25 mg tablet 25 mg PO BID Qty: 90 0RF Mounjaro 2.5 mg/0.5 mL pen injector 2.5 mg SQ WEEKLY acetaminophen [Tylenol Arthritis Pain] 650 mg tablet extended release 650 mg PO Q8H Qty: 90 0RF amitriptyline 50 mg tablet 50 mg PO HS famotidine 20 mg tablet 20 mg PO HS isosorbide mononitrate 60 mg tablet extended release 24 hr 60 mg PO DAILY Qty: 90 1RF tiotropium bromide [Spiriva with HandiHaler] 18 mcg capsule, w/inhalation device 1 cap inhalation DAILY 90 Days Qty: 180 3RF Rx Instructions: puncture 1 cap using device; one dose = 2 inhalations clopidogrel 75 mg tablet 75 mg PO DAILY torsemide 100 mg tablet 100 mg PO DAILY ergocalciferol (vitamin D2) 1,250 mcg (50,000 unit) capsule 1,250 mcg PO WEEKLY albuterol sulfate 90 mcg/actuation HFA aerosol inhaler 2 inh IH QIDP PRN (Reason: shortness of breath or wheezing) spironolactone 50 mg tablet 50 mg PO DAILY hydroxyzine pamoate [Vistaril] 25 mg capsule 25 mg PO TIDP PRN (Reason: Anxiety) diclofenac sodium [Voltaren Arthritis Pain] 1 % gel 2 g topical DAILY Rx Instructions: apply to medial left/right knees prn once per day empagliflozin 25 mg tablet 25 mg PO DAILY gabapentin 800 mg tablet 300 mg PO TID 30 Days Qty: 0 0RF insulin glargine [Lantus Solostar U-100 Insulin] 100 unit/mL (3 mL) insulin pen 35 unit SQ HS 30 Days Qty: 0 0RF Referrals Follow up/Referrals: Kyler Holloway MD [Primary Care Provider] - See instructions Clinical Impressions Clinical Impression: Chest pain, Acute on chronic renal failure, Hypotension, Therapeutic misadventure Print Language Print Language: Serbian Discharge ED Provider: Miladys Contreras General Adult HPI <LUIS EDUARDO Mcknight - Last Filed: 05/30/24 19:21> General Chief complaint: Chest Pain Stated complaint: cp Time Seen by Provider: 05/30/24 16:50 History of Present Illness HPI narrative: Patient presents for evaluation of chest pain. Patient states he began having chest pain around noon today. It is continue Wheeless and has been persistent. He states it radiates to his left shoulder blade. He denies any nausea vomiting diarrhea fever chills hemoptysis hematochezia melena diarrhea. He has been tolerant of oral intake and has had a bowel movement and passed flatus today. He does have a known history of nonocclusive cardiovascular disease and aortic insufficiency and review of his records he received a heart cath in June 2022. His echo that I can most recently find was also from 2022 and showed diastolic dysfunction with preserved ejection fraction. Related Data Home Medications ?Medication ?Instructions ?Recorded ?Confirmed oxycodone 10 mg tablet 10 mg PO TID 03/31/23 05/14/24 rosuvastatin 40 mg tablet 40 mg PO HS 03/31/23 05/14/24 amitriptyline 50 mg tablet 50 mg PO HS 12/07/23 05/14/24 famotidine 20 mg tablet 20 mg PO HS 12/07/23 05/14/24 tirzepatide 2.5 mg/0.5 mL 2.5 mg SQ WEEKLY 04/06/24 05/14/24 subcutaneous pen injector (Arabella) albuterol sulfate 90 mcg/actuation 2 inh inhalation QIDP PRN 05/14/24 05/14/24 aerosol inhaler shortness of breath or wheezing clopidogrel 75 mg tablet 75 mg PO DAILY 05/14/24 05/14/24 diclofenac sodium 1 % topical gel 2 g topical DAILY 05/14/24 05/14/24 (Voltaren Arthritis Pain) empagliflozin 25 mg tablet 25 mg PO DAILY 05/14/24 05/14/24 ergocalciferol (vitamin D2) 1,250 1,250 mcg PO WEEKLY 05/14/24 05/14/24 mcg (50,000 unit) capsule hydroxyzine pamoate 25 mg capsule 25 mg PO TIDP PRN Anxiety 05/14/24 05/14/24 (Vistaril) spironolactone 50 mg tablet 50 mg PO DAILY 05/14/24 05/14/24 torsemide 100 mg tablet 100 mg PO DAILY 05/14/24 05/14/24 Previous Rx's ?Medication ?Instructions ?Recorded lisinopril 5 mg tablet 5 mg PO DAILY #90 tabs 06/16/23 metoprolol tartrate 25 mg tablet 25 mg PO BID #90 tabs 06/16/23 isosorbide mononitrate 60 mg 60 mg PO DAILY #90 tabs 12/03/23 tablet,extended release 24 hr tiotropium bromide 18 mcg capsule 1 cap inhalation DAILY 90 days 01/18/24 with inhalation device (Spiriva #180 puffs with HandiHaler) acetaminophen 650 mg 650 mg PO Q8H #90 tabs 04/18/24 tablet,extended release (Tylenol Arthritis Pain) gabapentin 800 mg tablet 300 mg (0.375 x 800 mg) PO TID 30 05/16/24 days #0 tabs insulin glargine 100 unit/mL (3 35 unit (0.35 mL) SQ HS 30 days #0 05/16/24 mL) subcutaneous pen (Lantus mL Solostar U-100 Insulin) Allergies Allergy/AdvReac Type Severity Reaction Status Date / Time naproxen (NAPROXEN) Allergy Mild NA-NAUSEA/V Verified 04/18/24 09:03 OMITING tramadol (TRAMADOL) Allergy Mild NA-NAUSEA Verified 04/18/24 09:03 [facility] <LUIS EDUARDO Mcknight - Last Filed: 05/30/24 19:21> [facility] Disclaimer: The information contained in this section may have been updated after the patient was seen, as this information can be updated by other users. 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 Elevated serum creatinine History of lung cancer in adulthood Stopped smoking with greater than 30 pack year history COPD mixed type Mediastinal lymphadenopathy Hilar lymphadenopathy Dyspnea Typical angina Abnormal result of cardiovascular function study Diabetes Mediastinal lymphadenopathy Pulmonary emphysema COPD (chronic obstructive pulmonary disease) Obstructive sleep apnea (adult) (pediatric) H/O malignant neoplasm of lung Other emphysema Stopped smoking with greater than 30 pack year history Dyspnea on exertion YAMILE (obstructive sleep apnea) Dizziness Lightheaded Hypotension Edema Claudication 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 History of colonoscopy H/O arthroscopy of knee H/O arthroscopy of shoulder Family History Other No significant family history Social History (Updated 05/14/24 @ 11:03 by Alivia Cervantes RN) Smoking Status: Never smoker how long ago did patient quit smokin years; in 2017 second hand exposure: No alcohol intake: never counseling given: No counseling provided: provider counseling substance use type: marijuana counseling given: No current occupational status: disabled Travel in the last 8 weeks: None adopted: No caregiver/support person: No foster care: No household members: children housing: apartment lives independently: Yes marital status: single number of children: 4 number of grandchildren: 9 service: Yes (he was honorably discharged; cause of his back; he was in there for 2 years) status: retired branch: [employer] current occupational exposures/hazards: No Hx Recent Travel: No sexually active: No caffeine: Yes physical activity: none working smoke detector in home: Yes fire extinguisher in home: No carbon monox detector in home: Yes firearms in home: No do you feel safe at home: Yes victim of physical abuse: No victim of emotional abuse: No victim of sexual abuse: No would you like helpful sources: No Have you lived/traveled outside [place] in past 30 days?: No Contact w/someone who lives/traveled outside US past 30 days?: No Exposure to someone with infectious disease in past 14 days?: No Do you have a fever (greater than 100.4 F or 38 C)?: No Have you tested positive for COVID-19: No Exposed to someone with COVID-19 in past 14 days?: No Do you have a sore throat?: No Do you have a cough?: No Do you have any weakness?: No Do you have any diarrhea?: No Are you experiencing any unusual bleeding?: No Do you have any muscle aches/pain?: No Do you have any abdominal pain?: No Are you experiencing loss of taste or smell?: No Other Medical History Have you received the Flu Vaccine for this season: No Have you received the Pneumonia Vaccine: No <LUIS EDUARDO Mcknight - Last Filed: 05/30/24 19:21> ROS Obtained: Yes Systems reviewed as appropriate & no additional complaints except as documented Physical Exam <LUIS EDUARDO Mcknight - Last Filed: 05/30/24 19:21> General General appearance: alert and in no apparent distress Respiratory Respiratory exam: Present normal lung sounds bilaterally Cardiovascular Cardiovascular exam: Present regular rate Neurological Exam Neurological exam: Present alert and oriented X3 Medical Decision Making <LUIS EDUARDO Mcknight - Last Filed: 05/30/24 19:21> Medical Records Medical records reviewed: Yes I reviewed the patient's medical records. Screening: Per USPSTF and CDC recommendations, given the prevalence of disease in our region, it is our hospital?s policy to screen for HIV and viral Hepatitis for all patients aged 18 and over and those with ongoing risk factors. [place] Inquiry Pt receiving controlled substance: No Vital Signs: 05/30/24 16:49 05/30/24 16:51 05/30/24 17:02 Temperature 97.7 F Temperature Source Oral Pulse Rate 74 104 H Pulse Rate [Left Radial] 104 H Respiratory Rate 18 Blood Pressure 96/56 L Blood Pressure [Right Arm] 96/56 L Blood Pressure Mean Blood Pressure Mean [Right Arm] 69 Blood Pressure Source [Right Arm] Automatic Cuff Blood Pressure Position [Right Arm] Sitting 02 Sat by Pulse Oximetry 98 24 L Oxygen Delivery Method Room Air Room Air 05/30/24 17:05 05/30/24 17:07 05/30/24 17:30 Temperature Temperature Source Pulse Rate 99 H 100 H 98 H Pulse Rate [Left Radial] Respiratory Rate Blood Pressure 99/57 L 99/57 L 73/48 L Blood Pressure [Right Arm] Blood Pressure Mean Blood Pressure Mean [Right Arm] Blood Pressure Source [Right Arm] Blood Pressure Position [Right Arm] 02 Sat by Pulse Oximetry 95 97 97 Oxygen Delivery Method Room Air Room Air Room Air 05/30/24 17:38 05/30/24 18:00 05/30/24 18:03 Temperature Temperature Source Pulse Rate 96 H 101 H 104 H Pulse Rate [Left Radial] Respiratory Rate Blood Pressure 89/51 L 88/55 L 83/50 L Blood Pressure [Right Arm] Blood Pressure Mean Blood Pressure Mean [Right Arm] Blood Pressure Source [Right Arm] Blood Pressure Position [Right Arm] 02 Sat by Pulse Oximetry 97 96 98 Oxygen Delivery Method Room Air Room Air Room Air 05/30/24 18:30 05/30/24 19:00 Temperature Temperature Source Pulse Rate 87 100 H Pulse Rate [Left Radial] Respiratory Rate 16 16 Blood Pressure 91/50 L 102/69 L Blood Pressure [Right Arm] Blood Pressure Mean 66 75 Blood Pressure Mean [Right Arm] Blood Pressure Source [Right Arm] Blood Pressure Position [Right Arm] 02 Sat by Pulse Oximetry 98 97 Oxygen Delivery Method Lab Data Lab results reviewed: Yes I reviewed the patient's lab results. Lab Results 05/30/24 17:05: WBC 6.7, RBC 4.33 L, Hgb 13.6 L, Hct 39.5 L, MCV 91.2, MCH 31.4 H, MCHC 34.4, RDW 13.2, Plt Count 295, MPV 9.4, Neut % (Auto) 73.3, Lymph % (Auto) 18.0, [place] % (Auto) 6.9, Eos % (Auto) 0.9, Baso % (Auto) 0.6, Neut # (Auto) 4.9, Lymph # (Auto) 1.2, [place] # (Auto) 0.5, Eos # (Auto) 0.1, Baso # (Auto) 0.0, PT 10.4, INR 0.92, D-Dimer 0.91 H, Sodium 126 L, Potassium 4.1, C hloride 95 L, Carbon Dioxide 23, Anion Gap 12.1, BUN 57 H, Creatinine 2.30 H, Estimated Creat Clear 48, Estimated GFR 29 L, Est GFR ( Amer) 35 L, G lucose 317 H, Calcium 9.5, Magnesium 2.4 H, Total Bilirubin 1.2, AST 30, ALT 31, Alkaline Phosphatase 78, Troponin I < 0.01, NT-Pro-B Natriuret Pep 384 H, Total Protein 7.3, Albumin 4.6, Globulin 2.7, Albumin/Globulin Ratio 1.7, Lipase 132, Procalcitonin 0.222 05/30/24 17:08: Chlamy pneumoniae PCR Not detected, Adenovirus (PCR) Not detected, B. pertussis DNA (PCR) Not detected, Coronavirus OC43 (PCR) Not detected, Coronavirus HKU1 (PCR) Not detected, Coronavirus 229E (PCR) Not detected, SARS-CoV-2 (PCR) Not detected, Coronavirus NL63 (PCR) Not detected, Human Metapneumovir PCR Not detected, Influenza A (H1) PCR Not detected, Influ A (H1N1/09) PCR Not detected, Influenza A (H3) PCR Not detected, Influenza Type A (PCR) Not detected, Influenza Type B (PCR) Not detected, M. pneumoniae (PCR) Not detected, Parainfluenza 1 (PCR) Not detected, Parainfluenza 2 (PCR) Not detected, Parainfluenza 3 (PCR) Not detected, Parainfluenza 4 (PCR) Not detected, RSV (PCR) Not detected, Entero/Rhino (PCR) Not detected 05/30/24 17:10: VBG pH 7.36, VBG pCO2 38.7, VBG pO2 48.7 H, VBG HCO3 21.6 L, VBG Total CO2 22.8 L, VBG O2 Saturation 81.3 H, VBG Base Excess -3.8 L, VBG Lactic Acid 2.1 H 05/30/24 17:05 05/30/24 17:05 Orders (Tests/Meds): ED MEDICATIONS Discontinued Medications Generic Name Dose Route Start Last Admin Trade Name Freq PRN Reason Stop Dose Admin Acetaminophen 1,000 mg 05/30/24 16:55 05/30/24 17:10 Acetaminophen 500mg Tab PO 05/30/24 16:56 1,000 mg ONCE ONE Administration Belladonna Alkaloids 60 ml 05/30/24 17:49 05/30/24 17:54 Belladonna Alkaloids 60 Ml Ml PO 05/30/24 17:50 60 ml ONCE ONE Administration Sodium Chloride 1,000 mls @ 999 mls/hr 05/30/24 17:44 05/30/24 17:54 Sod Chlor 0.9% 1000ml Bag IV 05/30/24 18:44 999 mls/hr .Q1H1M ONE Administration Ketorolac Tromethamine 15 mg 05/30/24 16:55 05/30/24 17:09 Ketorolac 30mg/Ml Vial IV 05/30/24 16:56 15 mg ONCE ONE Administration Methocarbamol 500 mg 05/30/24 16:55 05/30/24 17:10 Methocarbamol 500mg Tablet PO 05/30/24 16:56 500 mg ONCE ONE Administration Morphine Sulfate 2 mg 05/30/24 17:48 05/30/24 17:54 Morphine 2mg/Ml Syringe IV 05/30/24 17:49 2 mg ONCE ONE Administration ORDERS Category Date Time Status Chest XR 2 view (NOT portable) [XR chest 2V] Stat Exams 05/30/24 16:55 Completed POCUS Point of Care (ER Only) Stat Exams 05/30/24 16:57 Ordered BNP [NT Pro Brain Natriuretic Pep.] Stat Lab 05/30/24 17:05 Completed CBC w/Auto Diff [Complete Blood Count Auto Diff] Stat Lab 05/30/24 17:05 Completed CMP [Comprehensive Metabolic Panel] Stat Lab 05/30/24 17:05 Completed D-Dimer Stat Lab 05/30/24 17:05 Completed Full Resp Panel w/COVID ([facility]) Routine Lab 05/30/24 17:08 Completed Hemoglobin A1C Routine Lab 05/30/24 19:16 Ordered INR [Prothrombin Time INR] Stat Lab 05/30/24 17:05 Completed Lipase Stat Lab 05/30/24 17:05 Completed Magnesium Stat Lab 05/30/24 17:05 Completed Procalcitonin Stat Lab 05/30/24 17:05 Completed Trop I [Troponin I] Stat Lab 05/30/24 17:05 Completed Troponin I Q3H Lab 05/30/24 20:00 Ordered Troponin I Q3H Lab 05/30/24 23:00 Ordered VBG [Venous Blood Gas] Stat RT 05/30/24 17:10 Completed HEART Score History (anamnesis): Slightly suspicious ECG: Normal Age: 45-65 years Risk factors: Atherosclerosis history Troponin: </= normal limit HEART Score: 3 Medical Decision Narrative: In summary patient is a 63-year-old male who presents to the emergency department for evaluation of chest pain. Patient is sexually hypotensive with a pressure of 96/56, tachycardic at 104 breathing 18 times a minute satting at 98% on room air upon arrival, afebrile. Physical exam is remarkable for no reproducible chest pain on palpation, normal breath sounds, no volume overload or pitting edema noted, no increased work of breathing or adventitious sounds, patient remains hypotensive at the time of my exam with a MAP of about 58 and a systolic of 80.. Differential diagnosis includes ACS versus PE versus pneumonia versus GERD versus therapeutic misadventure with antihypertensives and overdiuresis etc. Initial workup will be conducted with hematologic labs respiratory panel plain film chest x-ray D-dimer. Initial interventions include gentle fluid resuscitation with normal saline GI cocktail Tylenol morphine. Initial workup reviewed by me shows patient has worsening renal function with increase in his creatinine to 2.3 from normal on 05/16/2024, his GFR is 29 today down from 68 on 05/16/2024 sodium 126 glucose of 317 but a gap of 12.1 with a CO2 of 23 magnesium 2.4 undetectable troponin and NT proBNP of 384 procalcitonin of 0.222, D-dimer is elevated but per years criteria and with a D-dimer less than 1 PE is ruled out and the remainder of his hematologic labs nonactionable, my informal interpretation of his plain film chest x-ray shows no acute processes. I have been cautious in volume overload however given his persistently low MAP persistent hypertension and will give a fluid bolus as he appears to be dry as well as for improvement of his perfusion of his kidneys. I suspect that possibly his chest pain may be related to hypoperfusion/hypotension as he also has nonocclusive cardiovascular disease of the heart from his previous cath. Given the above I had interactive discussion with Dr. Gonzalez of cardiology regarding patient management and he would like to have the patient admitted for volume resuscitation and trending his troponins as well as blood pressure management. Given that I spoke with the hospitalist around 1800 hrs. and he will review the patient and call us back regarding admission. Hospitalist will admit after contacted them at 1918 DO Ben: I was consulted by the JACQUIE, and we discussed the complexity of the problems being addressed. I approved the treatment and management plan for this patient's care in the emergency department, thus performing a substantive portion of the medical decision making. I was involved in care of the patient. I performed bedside ultrasound. I performed ultrasound of the heart to evaluate for gross wall motion abnormality, pericardial effusion, etc. Ultrasound of the heart is reassuring. I also took a look at his IVC and noted significant collapse with inspiration, concerning for volume depletion as a potential cause of his TISHA and hypotension. He is responding well to fluids with regard to blood pressure improvement. Suspect overdiuresis. I also performed bilateral renal ultrasound to rule out hydronephrosis in the setting of significant TISHA. Renal ultrasound is reassuring with no hydronephrosis. Miladys Contreras DO <Miladys Contreras DO - Last Filed: 05/30/24 19:01> Vital Signs: 05/30/24 16:49 05/30/24 16:51 05/30/24 17:02 Temperature 97.7 F Temperature Source Oral Pulse Rate 74 104 H Pulse Rate [Left Radial] 104 H Respiratory Rate 18 Blood Pressure 96/56 L Blood Pressure [Right Arm] 96/56 L Blood Pressure Mean Blood Pressure Mean [Right Arm] 69 Blood Pressure Source [Right Arm] Automatic Cuff Blood Pressure Position [Right Arm] Sitting 02 Sat by Pulse Oximetry 98 24 L Oxygen Delivery Method Room Air Room Air 05/30/24 17:05 05/30/24 17:07 05/30/24 17:30 Temperature Temperature Source Pulse Rate 99 H 100 H 98 H Pulse Rate [Left Radial] Respiratory Rate Blood Pressure 99/57 L 99/57 L 73/48 L Blood Pressure [Right Arm] Blood Pressure Mean Blood Pressure Mean [Right Arm] Blood Pressure Source [Right Arm] Blood Pressure Position [Right Arm] 02 Sat by Pulse Oximetry 95 97 97 Oxygen Delivery Method Room Air Room Air Room Air 05/30/24 17:38 05/30/24 18:00 05/30/24 18:03 Temperature Temperature Source Pulse Rate 96 H 101 H 104 H Pulse Rate [Left Radial] Respiratory Rate Blood Pressure 89/51 L 88/55 L 83/50 L Blood Pressure [Right Arm] Blood Pressure Mean Blood Pressure Mean [Right Arm] Blood Pressure Source [Right Arm] Blood Pressure Position [Right Arm] 02 Sat by Pulse Oximetry 97 96 98 Oxygen Delivery Method Room Air Room Air Room Air 05/30/24 18:30 05/30/24 19:00 Temperature Temperature Source Pulse Rate 87 100 H Pulse Rate [Left Radial] Respiratory Rate 16 16 Blood Pressure 91/50 L 102/69 L Blood Pressure [Right Arm] Blood Pressure Mean 66 75 Blood Pressure Mean [Right Arm] Blood Pressure Source [Right Arm] Blood Pressure Position [Right Arm] 02 Sat by Pulse Oximetry 98 97 Oxygen Delivery Method Lab Data Lab Results 05/30/24 17:05: WBC 6.7, RBC 4.33 L, Hgb 13.6 L, Hct 39.5 L, MCV 91.2, MCH 31.4 H, MCHC 34.4, RDW 13.2, Plt Count 295, MPV 9.4, Neut % (Auto) 73.3, Lymph % (Auto) 18.0, [place] % (Auto) 6.9, Eos % (Auto) 0.9, Baso % (Auto) 0.6, Neut # (Auto) 4.9, Lymph # (Auto) 1.2, [place] # (Auto) 0.5, Eos # (Auto) 0.1, Baso # (Auto) 0.0, PT 10.4, INR 0.92, D-Dimer 0.91 H, Sodium 126 L, Potassium 4.1, C hloride 95 L, Carbon Dioxide 23, Anion Gap 12.1, BUN 57 H, Creatinine 2.30 H, Estimated Creat Clear 48, Estimated GFR 29 L, Est GFR ( Amer) 35 L, G lucose 317 H, Calcium 9.5, Magnesium 2.4 H, Total Bilirubin 1.2, AST 30, ALT 31, Alkaline Phosphatase 78, Troponin I < 0.01, NT-Pro-B Natriuret Pep 384 H, Total Protein 7.3, Albumin 4.6, Globulin 2.7, Albumin/Globulin Ratio 1.7, Lipase 132, Procalcitonin 0.222 05/30/24 17:08: Chlamy pneumoniae PCR Not detected, Adenovirus (PCR) Not detected, B. pertussis DNA (PCR) Not detected, Coronavirus OC43 (PCR) Not detected, Coronavirus HKU1 (PCR) Not detected, Coronavirus 229E (PCR) Not detected, SARS-CoV-2 (PCR) Not detected, Coronavirus NL63 (PCR) Not detected, Human Metapneumovir PCR Not detected, Influenza A (H1) PCR Not detected, Influ A (H1N1/09) PCR Not detected, Influenza A (H3) PCR Not detected, Influenza Type A (PCR) Not detected, Influenza Type B (PCR) Not detected, M. pneumoniae (PCR) Not detected, Parainfluenza 1 (PCR) Not detected, Parainfluenza 2 (PCR) Not detected, Parainfluenza 3 (PCR) Not detected, Parainfluenza 4 (PCR) Not detected, RSV (PCR) Not detected, Entero/Rhino (PCR) Not detected 05/30/24 17:10: VBG pH 7.36, VBG pCO2 38.7, VBG pO2 48.7 H, VBG HCO3 21.6 L, VBG Total CO2 22.8 L, VBG O2 Saturation 81.3 H, VBG Base Excess -3.8 L, VBG Lactic Acid 2.1 H Orders (Tests/Meds): ED MEDICATIONS Discontinued Medications Generic Name Dose Route Start Last Admin Trade Name Alia PRN Reason Stop Dose Admin Acetaminophen 1,000 mg 05/30/24 16:55 05/30/24 17:10 Acetaminophen 500mg Tab PO 05/30/24 16:56 1,000 mg ONCE ONE Administration Belladonna Alkaloids 60 ml 05/30/24 17:49 05/30/24 17:54 Belladonna Alkaloids 60 Ml Ml PO 05/30/24 17:50 60 ml ONCE ONE Administration Sodium Chloride 1,000 mls @ 999 mls/hr 05/30/24 17:44 05/30/24 17:54 Sod Chlor 0.9% 1000ml Bag IV 05/30/24 18:44 999 mls/hr .Q1H1M ONE Administration Ketorolac Tromethamine 15 mg 05/30/24 16:55 05/30/24 17:09 Ketorolac 30mg/Ml Vial IV 05/30/24 16:56 15 mg ONCE ONE Administration Methocarbamol 500 mg 05/30/24 16:55 05/30/24 17:10 Methocarbamol 500mg Tablet PO 05/30/24 16:56 500 mg ONCE ONE Administration Morphine Sulfate 2 mg 05/30/24 17:48 05/30/24 17:54 Morphine 2mg/Ml Syringe IV 05/30/24 17:49 2 mg ONCE ONE Administration ORDERS Category Date Time Status Chest XR 2 view (NOT portable) [XR chest 2V] Stat Exams 05/30/24 16:55 Completed POCUS Point of Care (ER Only) Stat Exams 05/30/24 16:57 Ordered BNP [NT Pro Brain Natriuretic Pep.] Stat Lab 05/30/24 17:05 Completed CBC w/Auto Diff [Complete Blood Count Auto Diff] Stat Lab 05/30/24 17:05 Completed CMP [Comprehensive Metabolic Panel] Stat Lab 05/30/24 17:05 Completed D-Dimer Stat Lab 05/30/24 17:05 Completed Full Resp Panel w/COVID (H) Routine Lab 05/30/24 17:08 Completed Hemoglobin A1C Routine Lab 05/30/24 19:16 Ordered INR [Prothrombin Time INR] Stat Lab 05/30/24 17:05 Completed Lipase Stat Lab 05/30/24 17:05 Completed Magnesium Stat Lab 05/30/24 17:05 Completed Procalcitonin Stat Lab 05/30/24 17:05 Completed Trop I [Troponin I] Stat Lab 05/30/24 17:05 Completed Troponin I Q3H Lab 05/30/24 20:00 Ordered Troponin I Q3H Lab 05/30/24 23:00 Ordered VBG [Venous Blood Gas] Stat RT 05/30/24 17:10 Completed ECG Data Tracing #1: I reviewed this ECG and interpreted as documented below: Sinus tachycardia with a ventricular rate of 104 bpm. No acute STEMI. Normal axis. Short TX interval. ECG initial impression date: 05/30/24 ECG initial impression time: 16:58 HEART Score HEART Score: 3 Medical Decision Narrative: In summary patient is a 63-year-old male who presents to the emergency department for evaluation of chest pain. Patient is sexually hypotensive with a pressure of 96/56, tachycardic at 104 breathing 18 times a minute satting at 98% on room air upon arrival, afebrile. Physical exam is remarkable for no reproducible chest pain on palpation, normal breath sounds, no volume overload or pitting edema noted, no increased work of breathing or adventitious sounds, patient remains hypotensive at the time of my exam with a MAP of about 58 and a systolic of 80.. Differential diagnosis includes ACS versus PE versus pneumonia versus GERD versus therapeutic misadventure with antihypertensives and overdiuresis etc. Initial workup will be conducted with hematologic labs respiratory panel plain film chest x-ray D-dimer. Initial interventions include gentle fluid resuscitation with normal saline GI cocktail Tylenol morphine. Initial workup reviewed by me shows patient has worsening renal function with increase in his creatinine to 2.3 from normal on 05/16/2024, his GFR is 29 today down from 68 on 05/16/2024 sodium 126 glucose of 317 but a gap of 12.1 with a CO2 of 23 magnesium 2.4 undetectable troponin and NT proBNP of 384 procalcitonin of 0.222 and the remainder of his hematologic labs nonactionable, my informal interpretation of his plain film chest x-ray shows no acute processes. I have been cautious in volume overload however given his persistently low MAP persistent hypertension and will give a fluid bolus as he appears to be dry as well as for improvement of his perfusion of his kidneys. I suspect that possibly his chest pain may be related to hypoperfusion/hypotension as he also has nonocclusive cardiovascular disease of the heart from his previous cath. Given the above I had interactive discussion with Dr. Gonzalez of cardiology regarding patient management and he would like to have the patient admitted for volume resuscitation and trending his troponins as well as blood pressure management. Given that I spoke with the hospitalist around 1800 hrs. and he will review the patient and call us back regarding admission. DO Ben: I was consulted by the JACQUIE, and we discussed the complexity of the problems being addressed. I approved the treatment and management plan for this patient's care in the emergency department, thus performing a substantive portion of the medical decision making. I was involved in care of the patient. I performed bedside ultrasound. I performed ultrasound of the heart to evaluate for gross wall motion abnormality, pericardial effusion, etc. Ultrasound of the heart is reassuring. I also took a look at his IVC and noted significant collapse with inspiration, concerning for volume depletion as a potential cause of his TISHA and hypotension. He is responding well to fluids with regard to blood pressure improvement. Suspect overdiuresis. I also performed bilateral renal ultrasound to rule out hydronephrosis in the setting of significant TISHA. Renal ultrasound is reassuring with no hydronephrosis. Miladys Contreras DO Procedures <Miladys Contreras DO - Last Filed: 05/30/24 19:01> Limited Ultrasound Findings:: Limited cardiac ultrasound Indication: Chest pain Identified cardiac views: [-Cardiac parasternal long axis] [-Cardiac parasternal short axis] [-Cardiac subxiphoid] Findings: [-Cardiac activity present -Gross wall motion normal -Pericardial effusion absent -Right heart strainabsent] Impression: -[From above] Images [were saved] to permanent archive The study was technically adequate CPT: 92786 This study was performed by ak, and I personally interpreted all images/videos. Based on my clinical judgement, these images were adequate and did not necessitate further imaging. Interpretation:: Limited renal ultrasound Indication: A focused ultrasound of the kidneys was performed to evaluate for hydronephrosis and nephrolithiasis. The ultrasound was performed with the following indications, as noted in the H&P: TISHA with back pain Identified structures: Both kidneys [-Bladder] Findings: [R/L/bilateral kidneys] Normal without hydronephrosis Impression: Normal Limited renal ultrasound, no evidence of hydronephrosis or calculi Images were saved to permanent archive The study was technically adequate CPT: 10670-65 This study was performed by me, and I personally interpreted all images/videos. Based on my clinical judgement, these images were adequate and did not necessitate further imaging. Critical Care <LUIS EDUARDO Mcknight - Last Filed: 05/30/24 19:21> Critical Care Time Critical Care Time: Yes Attestation: On 05/30/24, the high probability of a clinically significant, sudden or life threatening deterioration of the following system: Cardiovascular, renal. Required my full and direct attention, intervention and personal management. The time I documented below is in addition to time spent performing reported procedures but includes the following listed in this critical care notation. Total Time Total Critical Care Time: 30
--- NOTE | 2024-05-30 16:54 | ECG_ITS ---
APPROVED REPORT Exam: Resting ECG HR:104 bpm ECG Measurements Heart Rate 104 AXES VT 116 P 42 QRSd 73 QRS 60 QT 345 T 69 QTc 405 Conclusion SINUS TACHYCARDIA WITH SHORT VT INTERVAL Electronically signed by : CARMEN JORDAN, 05/31/2024 00:39:05
--- NOTE | 2024-05-30 16:55 | XR_ITS ---
PROCEDURE INFORMATION: Exam: XR Chest Exam date and time: 05/30/2024 5:00 PM Age: 63 years old Clinical indication: Pain; Chest pressure; Additional info: Chest pain TECHNIQUE: Imaging protocol: Radiologic exam of the chest. Views: 2 views. COMPARISON: CR XR CHEST PORTABLE 05/14/2024 5:53 AM and 04/06/2024 FINDINGS: Lungs: There is minor elevation of the left hemidiaphragm, unchanged since 04/06/2024. Linear opacities in the left mid lung and lower lobe are stable since 04/06/2024 suggesting parenchymal scarring. Left perihilar opacities and peribronchial cuffing are also stable suggesting chronic process. Bullous emphysematous change in superomedial left upper lobe measuring approximately 5 cm is stable. Additional bullous emphysematous changes involving the upper lobes are stable. No focal areas of consolidation. Pleural spaces: No pleural effusions. Negative for pneumothorax. Heart/Mediastinum: Cardiac silhouette and pulmonary vasculature are within range of normal. Bones/joints: There is no evidence of acute fracture. The thoracic spine demonstrates mild degenerative changes at multiple levels. IMPRESSION: 1. Stable chest radiograph with stable bullous emphysematous changes. 2. Stable parenchymal scarring in the left perihilar and lower lobe regions.
[2024-05-30] MEDS: KETOROLAC 30MG/ML VIAL 15 MG IV (17:09)
[2024-05-30] MEDS: ACETAMINOPHEN 500MG TAB 1000 MG PO (17:10)
[2024-05-30] MEDS: METHOCARBAMOL 500MG TABLET 500 MG PO (17:10)
[2024-05-30 17:16] LABS: Lactate Venous 2.1 mmol/L (0.4-2.0); VBG Base Excess -3.8 mmol/L (-2.4-2.3); VBG HCO3 21.6 mmol/L (23-30); VBG Oxygen Saturation 81.3 % (50-70); VBG PCO2 38.7 mmol/L (35-51); VBG PH 7.36 mmol/L (7.31-7.41); VBG PO2 48.7 mmol/L (28-40); VBG Total CO2 22.8 mmol/L (23-27)
[2024-05-30 17:22] LABS: Adenovirus,PCR Not Detected (NotDetected); Bordetella Pertussis Not Detected (NotDetected); Chlamydophila Pneumoniae, PCR Not Detected (NotDetected); Coronavirus 19, PCR Not Detected (NotDetected); Coronavirus 229E Not Detected (NotDetected); Coronavirus NL63 Not Detected (NotDetected); Coronavirus OC43 Not Detected (NotDetected); Coronovirus HKU1,PCR Not Detected (NotDetected); Human Metapneumovirus Not Detected (NotDetected); Influenza A, PCR Not Detected (NotDetected); Influenza AH1, 2009 Not Detected (NotDetected); Influenza AH1, PCR Not Detected (NotDetected); Influenza AH3,PCR Not Detected (NotDetected); Influenza B, PCR Not Detected (NotDetected); Mycoplasma Pneumoniae, PCR Not Detected (NotDetected); Parainfluenza 1, PCR Not Detected (NotDetected); Parainfluenza 2, PCR Not Detected (NotDetected); Parainfluenza 3, PCR Not Detected (NotDetected); Parainfluenza 4, PCR Not Detected (NotDetected); Respiratory Syncytial Virus Not Detected (NotDetected); Rhinovirus/Enterovirus Not Detected (NotDetected)
[2024-05-30 17:25] LABS: White Blood Count 6.7 K/mm3 (4.8-10.8)
[2024-05-30 17:26] LABS: Basophils % 0.6 % (0.1-2.0); Eosinophils # 0.1 K/mm3 (0.0-0.4); Eosinophils % 0.9 % (0.1-12.0); Hematocrit 39.5 % (42.0-52.0); Hemoglobin 13.6 g/dL (14.1-18.0); Lymphocytes # 1.2 K/mm3 (0.7-4.5); Mean Corpuscular HGB Conc 34.4 g/dL (31.8-35.4); Mean Corpuscular Hemoglobin 31.4 pg (27.0-31.2); Mean Corpuscular Volume 91.2 fl (80-94); Mean Platelet Volume 9.4 fl (7.4-10.4); Monocytes # 0.5 K/mm3 (0.1-1.0); Monocytes % 6.9 % (1.7-9.3); Neutrophils # 4.9 K/mm3 (1.8-7.8); Neutrophils % 73.3 % (37.0-80.0); Platelet Count 295 K/mm3 (142-424); Red Blood Count 4.33 M/mm3 (4.60-6.20); Red Cell Distribution Width 13.2 % (11.5-17.5)
[2024-05-30 17:32] LABS: Albumin Level 4.6 g/dl (3.5-5.0); Chloride 95 mmol/L (98-107)
[2024-05-30 17:33] LABS: Potassium 4.1 mmoL/L (3.5-5.1); Sodium 126 mmol/L (136-145)
[2024-05-30 17:35] LABS: Alanine Aminotransferase 31 U/L (12-78); Anion Gap 12.1 mEq/L (5-15); Aspartate Amino Transferase 30 U/L (17-59); Bilirubin,Total 1.2 mg/dl (0.2-1.3); Blood Urea Nitrogen 57 mg/dl (9-20); Carbon Dioxide 23 mmol/L (22.0-30.0); Creatinine Clearance Estimated 48 mL/min (50-200); Estimated Glomerular Filt Rate 29 ml/min (>60); GFR (African American) 35 ML/MIN (>60)
[2024-05-30 17:36] LABS: Albumin/Globulin Ratio 1.7 (1.1-1.8); Alkaline Phosphatase 78 U/L (38-126); Calcium 9.5 mg/dl (8.4-10.2); Globulin 2.7 g/dL (1.3-3.2); Glucose 317 mg/dl (74-100); Lipase 132 U/L (23-300); Magnesium 2.4 mg/dl (1.6-2.3); Total Protein,Serum 7.3 g/dl (6.3-8.2)
[2024-05-30 17:45] LABS: NT Pro Brain Natriuretic Pep. 384 pg/mL (0-125)
[2024-05-30 17:49] LABS: Troponin I < 0.01 ng/ml (0.00-0.034)
[2024-05-30 17:53] LABS: Procalcitonin 0.222 ng/mL (0.0-2.0)
[2024-05-30 17:54] LABS: INR 0.92 (0.9-1.1); Prothrombin Time 10.4 seconds (10.1-12.5)
[2024-05-30] MEDS: MORPHINE 2MG/ML SYRINGE 2 MG IV (17:54)
[2024-05-30] MEDS: BELLADONNA ALKALOIDS 60 ML ML PO (17:54)
[2024-05-30] MEDS: 0.9 % SODIUM CHLORIDE 1000ML 1,000 ML 999 ML IV (17:54)
[2024-05-30 18:04] LABS: D-Dimer 0.91 ug/mL (0.0-0.5)
--- NOTE | 2024-05-30 19:53 | PC.NURSE ---
Report called to [facility]
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
[2024-05-30 21:16] LABS: Reflex Lactic Add Lactic Reflex
[2024-05-30 21:21] LABS: Hemoglobin A1C 11.5 % (4.0-6.0)
[2024-05-30 21:22] LABS: D-Dimer 0.75 ug/mL (0.0-0.5)
[2024-05-30 21:44] LABS: Lactic Acid Follow Up (RFLX 1) 1.2 mmol/L (0.7-2.1)
[2024-05-30 21:56] LABS: Troponin I < 0.01 ng/ml (0.00-0.034)
[2024-05-30] MEDS: 0.9 % SODIUM CHLORIDE 1000ML 1,000 ML 50 ML IV (22:38)
[2024-05-30] MEDS: humaLOG 100 UNITS/ML 10ML VIAL (SSI) SUBCUT (22:38)
[2024-05-30] MEDS: HEPARIN SODIUM 5,000 UNIT/ML VIAL 5000 UNIT SUBCUT (22:38)
[2024-05-30] MEDS: PATIENT'S OWN HOME MEDICATION (Oxycodone 10 mg tablet) 10 EACH PO (22:39)
[2024-05-31] VITALS (8 sets, daily range): BP systolic 90–126; BP diastolic 54–73; PULSE 65–90; RESP 16–19; TEMP 36.3–36.9; O2SAT 97–99; BMI 35.8
[2024-05-31 00:05] LABS: Troponin I < 0.01 ng/ml (0.00-0.034)
[2024-05-31] MEDS: ONDANSETRON 4MG ODT 4 MG SL ×2 (03:48→20:20)
[2024-05-31] MEDS: TIOTROPIUM 18MCG/PUFF INHALER 1 CAP IH (06:10)
--- NOTE | 2024-05-31 06:10 | CA_ITS ---
FINAL REPORT CLINICAL HISTORY: edema, CKD, COPD FINDINGS: Multiple transverse and longitudinal scans were performed of the femoral popliteal deep venous system, with augmentation and compression maneuvers. Normal phasic flow was noted in the visualized deep venous system. No intraluminal increased echogenicity is noted to suggest thrombus. There is normal compression and augmentation of the venous structures. No abnormal venous collaterals are seen. IMPRESSION: No evidence of deep venous thrombosis of the bilateral lower extremities. Reviewed, Interpreted and Dictated by Coy Parker MD Transcribed by Cady Becerra Authenticated and . [facility]
--- NOTE | 2024-05-31 06:10 | CA_ITS ---
APPROVED REPORT EXAM: Comprehensive 2D, Doppler, and color-flow Echocardiogram [employer] Dancer: GIACOMO Brown, RVS Ht: 5 ft 5 in Wt: 220lbs BSA: 2.06 BP: 102/61 mmHg Rhythm: Irregular Indications: COPD, CP, CKD, DM, HTN, HLD,Ex-smoker 2D Dimensions Left Atrium 3.58 cm LA Volume 51.20 mL LA Volume Index 24.30 mL/m2 (M/F) 16-34 M-Mode Dimensions RVDd 3.36 cm (0.9-2.6) LA Diam 4.16 cm (1.9-4.0) LVDd 4.47 cm (3.5-5.7) LVDs 3.01 cm (3.5-5.7) IVSd 0.96 cm (0.6-1.1) PWd 1.00 cm (0.6-1.1) EF (Teich) 66.90% EPSs 0.39 cm FS 37.00% EDV (Teich) 106.50 mL TAPSE 1.79 (<1.7) ESV (Teich) 35.30 mL LV Diastology E Decel Time 217 (160-240 msec) E/A Ratio 0.96 MED A' 12.60 cm/s LAT A' 12.30 cm/s Aortic Valve MADHAVI Index 1.56 cm2/m2 AoV Peak Missael. 111.0 (50-130 cm/s) AI PHT 765.00 ms AO Peak GR. 4.90 mmHg AO Mean GR. 2.50 (<5 mmHg) AO VTI 17.3 (18-25 cm) MADHAVI (VTI) 3.30 (2.5-4.5 cm2) Mitral Valve MV A Velocity 55.0 (40-130 cm/s) E/A Ratio 0.96 Pulmonary Valve PV Peak Velocity 192.0 (50-150 cm/s) Tricuspid Valve TR P. Velocity 191.00 cm/s RAP Estimate 10.00 mmHg RVSP 24.50 mmHg Left Ventricle The left ventricle is normal size. The left ventricular systolic function is normal. The left ventricular ejection fraction is within the normal range. There is increased LV wall thickness. There is normal LV segmental wall motion. Transmitral Doppler flow pattern suggests impaired LV relaxation. LVEF is 55%. Right Ventricle Right ventricle is mildly to moderately dilated. Right ventricle is mildly hypokinetic. Atria The left atrium size is normal. The right atrium size is normal. There is no Doppler evidence of interatrial shunt. Aortic Valve The aortic valve is mildly thickened. There is no aortic valvular stenosis. Trace aortic regurgitation is present. Mitral Valve The mitral valve is normal in structure. No evidence of mitral valve stenosis. Mild mitral regurgitation. Tricuspid Valve Tricuspid valve is grossly normal in structure and function. Mild tricuspid regurgitation. RVSP is normal. Pulmonic Valve The pulmonary valve is normal in structure. Trace pulmonic regurgitation. Great Vessels The aortic root is normal in size. IVC is normal in size and collapses >50% with inspiration. Pericardium There is no pericardial effusion. Other Information Study Quality: Fair Conclusion Normal LV systolic function. Mild to moderate RV dilation with mild reduction in RV function. Mild MR, mild TR. Electronically signed by : Zenobia Curiel MD 06/01/2024 10:33:39
[2024-05-31] MEDS: humaLOG 100 UNITS/ML 10ML VIAL (SSI) SUBCUT ×4 (06:15→20:13)
[2024-05-31] MEDS: ACETAMINOPHEN 650 EACH PO (06:16)
[2024-05-31 06:27] LABS: POC Glucose,Bedside 234 (70-110)
--- NOTE | 2024-05-31 07:23 | CT_ITS ---
FINAL REPORT TECHNIQUE: Thin section axial CT with contrast with multiplanar reconstruction This study was performed with techniques to keep radiation doses as low as reasonably achievable, (ALARA). Individualized dose reduction techniques using automated exposure control or adjustment of mA and/or kV according to the patient''s size were employed. CLINICAL HISTORY: eval for PE COMPARISON: 12/08/2023 FINDINGS: Pulmonary vessels enhance in normal fashion without evidence of embolism. Thoracic aorta shows no dissection or aneurysm. Nodularity within the right lower lobe well-seen on image 61 is stable. The larger nodules are calcified. Emphysematous changes are noted. Soft tissue density in the left perihilar region is stable compatible with posttreatment change. Previously seen tiny left effusion is resolved. There is no significant pericardial effusion. No mediastinal or hilar adenopathy is present. IMPRESSION: Chronic changes without acute process. Reviewed, Interpreted and Dictated by Coy Parker MD Transcribed by Cady Becerra Authenticated and [facility]
[2024-05-31] MEDS: SODIUM CHLORIDE 0.9% 10ML SYR (RAD ONLY) 10 ML IV (07:37)
[2024-05-31] MEDS: IOPAMIDOL-370 (76%);100ML BOTTLE 80 ML IV (07:37)
[2024-05-31] MEDS: 0.9 % SODIUM CHLORIDE 50 ML VIAL IV (07:37)
[2024-05-31] MEDS: GABAPENTIN 300MG CAPSULE 300 MG PO ×2 (08:40→20:12)
[2024-05-31] MEDS: CLOPIDOGREL 75MG TAB 75 MG PO (08:41)
[2024-05-31] MEDS: METOPROLOL TARTRATE 25MG TABLET 25 MG PO ×2 (08:41→20:14)
[2024-05-31] MEDS: ISOSORBIDE MONO 60MG TAB.ER.24H 60 MG PO (08:41)
[2024-05-31] MEDS: ACETAMINOPHEN 325MG TAB 650 MG PO (08:43)
[2024-05-31] MEDS: OXYCODONE 5MG IMMEDIATE RELEASE TABLET 10 MG PO ×2 (08:44→17:51)
[2024-05-31] MEDS: INSULIN GLARGINE 100 UNITS/ML 3ML FLEXPEN 10 UNIT SUBCUT (08:46)
[2024-05-31] MEDS: HEPARIN SODIUM 5,000 UNIT/ML VIAL 5000 UNIT SUBCUT ×2 (08:46→20:13)
[2024-05-31 08:59] LABS: Chloride 94 mmol/L (98-107)
[2024-05-31 09:00] LABS: Potassium 3.8 mmoL/L (3.5-5.1); Sodium 127 mmol/L (136-145)
[2024-05-31 09:02] LABS: Alanine Aminotransferase 28 U/L (12-78); Alkaline Phosphatase 68 U/L (38-126); Anion Gap 12.8 mEq/L (5-15); Aspartate Amino Transferase 28 U/L (17-59); Bilirubin,Total 1.1 mg/dl (0.2-1.3); Blood Urea Nitrogen 48 mg/dl (9-20); Carbon Dioxide 24 mmol/L (22.0-30.0); Creatinine Clearance Estimated 56 mL/min (50-200); Estimated Glomerular Filt Rate 36 ml/min (>60); GFR (African American) 44 ML/MIN (>60)
[2024-05-31 09:03] LABS: Albumin/Globulin Ratio 1.7 (1.1-1.8); Calcium 8.6 mg/dl (8.4-10.2); Globulin 2.4 g/dL (1.3-3.2); Glucose 247 mg/dl (74-100); Magnesium 2.6 mg/dl (1.6-2.3); Total Protein,Serum 6.4 g/dl (6.3-8.2)
[2024-05-31 09:57] LABS: Red Blood Count 4.08 M/mm3 (4.60-6.20); White Blood Count 4.3 K/mm3 (4.8-10.8)
[2024-05-31 09:58] LABS: Basophils % 0.9 % (0.1-2.0); Eosinophils # 0.1 K/mm3 (0.0-0.4); Eosinophils % 1.4 % (0.1-12.0); Hematocrit 37.2 % (42.0-52.0); Hemoglobin 12.8 g/dL (14.1-18.0); Lymphocytes # 0.9 K/mm3 (0.7-4.5); Lymphocytes % 20.3 % (10-50); Mean Corpuscular HGB Conc 34.4 g/dL (31.8-35.4); Mean Corpuscular Hemoglobin 31.4 pg (27.0-31.2); Mean Corpuscular Volume 91.2 fl (80-94); Mean Platelet Volume 9.5 fl (7.4-10.4); Monocytes # 0.4 K/mm3 (0.1-1.0); Monocytes % 10.2 % (1.7-9.3); Neutrophils # 2.9 K/mm3 (1.8-7.8); Neutrophils % 66.7 % (37.0-80.0); Platelet Count 233 K/mm3 (142-424); Red Cell Distribution Width 13.4 % (11.5-17.5)
[2024-05-31 12:28] LABS: POC Glucose,Bedside 280 (70-110)
--- NOTE | 2024-05-31 13:02 | DIET.NUTRFU ---
Visited patient at request of family to review diet. Currently on 1800ADA diet, allowed 4 carbs per tray. At home this RD recommended 2-3 carbs/meal but still not following that recommendation. He called from outside hospital yesterday concerned about elevated BS of >200 but he had skipped lunch and barely ate breakfast. Encouraged routine meals with 2-3 carbs/fiber and protein. Asked about bread on tray, clarified it counts as a carb, fruit would be better carb choice but either is still allowed. He mentioned his PCP recommended he see a optometry doctor but did know if he needed to see him, encouraged he keep his appt to help adjust his insulin regimen. Hospitalist feels he is not on correct insulin regimen. Patient reports he has been testing and taking sliding scale insulin but he is only on lantus according to file.
[2024-05-31 13:31] LABS: POC Glucose,Bedside 309 (70-110)
--- NOTE | 2024-05-31 16:00 | EXP.ACUTE.PN ---
Subjective *Date: 05/31/24 *Time: 16:05 Interval history: Patient still feeling poorly this morning. Continues to complain of some left-sided chest pain that is reproducible on exam. He is tender in his left pectoralis. Having some mild abdominal discomfort. Previously was having discomfort while taking Mounjaro which is what caused him to stop taking Mounjaro. Does not recall taking basal insulin in several months per his report. Discussed his uncontrolled diabetes today. Takes only a sliding scale insulin at home per his report. Appears he was discharged earlier this month however on basal insulin. On room air. Afebrile Medical Exam Vital signs and Labs for Last 24 Hours: Vital Signs Temp Pulse Pulse Resp BP BP Pulse Ox 05/31/24 15:00 05/31/24 13:00 05/31/24 12:30 97.6 F 71 19 90/54 L 99 05/31/24 12:00 75 05/31/24 11:00 05/31/24 09:00 05/31/24 08:00 05/31/24 08:00 85 05/31/24 08:00 97.6 F 85 18 106/61 L 98 05/31/24 06:39 05/31/24 05:00 05/31/24 05:00 90 05/31/24 04:00 98.3 F 76 17 117/71 99 05/31/24 04:00 80 05/31/24 03:00 05/31/24 01:00 05/31/24 00:00 98.5 F 79 16 126/73 97 05/30/24 23:00 05/30/24 20:45 97.9 F 82 16 103/63 L 98 05/30/24 20:41 80 05/30/24 20:00 05/30/24 20:00 96 H 106/60 L 98 05/30/24 19:53 97.9 F 98 H 14 106/74 L 05/30/24 19:45 98 H 106/74 L 99 05/30/24 19:00 100 H 16 102/69 L 97 05/30/24 18:30 87 16 91/50 L 98 05/30/24 18:03 104 H 83/50 L 98 05/30/24 18:00 101 H 88/55 L 96 05/30/24 17:38 96 H 89/51 L 97 05/30/24 17:30 98 H 73/48 L 97 05/30/24 17:07 100 H 99/57 L 97 05/30/24 17:05 99 H 99/57 L 95 05/30/24 17:02 104 H 05/30/24 16:51 74 96/56 L 24 L 05/30/24 16:49 97.7 F 104 H 18 96/56 L 98 O2 Del Method 05/31/24 15:00 Room Air 05/31/24 13:00 Room Air 05/31/24 12:30 Room Air 05/31/24 12:00 05/31/24 11:00 Room Air 05/31/24 09:00 Room Air 05/31/24 08:00 Room Air 05/31/24 08:00 05/31/24 08:00 Room Air 05/31/24 06:39 Room Air 05/31/24 05:00 Room Air 05/31/24 05:00 05/31/24 04:00 Room Air 05/31/24 04:00 05/31/24 03:00 Room Air 05/31/24 01:00 Room Air 05/31/24 00:00 Room Air 05/30/24 23:00 Room Air 05/30/24 20:45 Room Air 05/30/24 20:41 05/30/24 20:00 Room Air 05/30/24 20:00 05/30/24 19:53 Room Air 05/30/24 19:45 05/30/24 19:00 05/30/24 18:30 05/30/24 18:03 Room Air 05/30/24 18:00 Room Air 05/30/24 17:38 Room Air 05/30/24 17:30 Room Air 05/30/24 17:07 Room Air 05/30/24 17:05 Room Air 05/30/24 17:02 05/30/24 16:51 Room Air 05/30/24 16:49 Room Air Intake and Output 05/31/24 05/31/24 05/31/24 07:59 15:59 23:59 Intake Total 500 / 1160 660 / 1160 Output Total 1300 / 1700 400 / 1700 Balance -800 / -540 260 / -540 Intake: Intake, Oral Amount 300 / 960 660 / 960 Intake, Total IV Amount 200 / 200 0.9 % Sodium Chloride 1000ML 1, 200 / 200 000 ml @ 50 mls/hr IV .Q20H PENDING SALE TO [facility] Rx#:[id number] Output: Output, Urine Amount 1300 / 1700 400 / 1700 Other: Number of Unmeasured Voids 1 1 Weight 97.522 kg 97.5 kg Patient Weight 05/31/24 23:59 Weight 97.5 kg Laboratory Results - last 24 hr 05/30/24 17:05: WBC 6.7, RBC 4.33 L, Hgb 13.6 L, Hct 39.5 L, MCV 91.2, MCH 31.4 H, MCHC 34.4, RDW 13.2, Plt Count 295, MPV 9.4, Neut % (Auto) 73.3, Lymph % (Auto) 18.0, [place] % (Auto) 6.9, Eos % (Auto) 0.9, Baso % (Auto) 0.6, Neut # (Auto) 4.9, Lymph # (Auto) 1.2, [place] # (Auto) 0.5, Eos # (Auto) 0.1, Baso # (Auto) 0.0, PT 10.4, INR 0.92, D-Dimer 0.91 H, Sodium 126 L, Potassium 4.1, Chloride 95 L, Carbon Dioxide 23, Anion Gap 12.1, BUN 57 H, Creatinine 2.30 H, Estimated Creat Clear 48, Estimated GFR 29 L, Est GFR ( Amer) 35 L, Glucose 317 H, Hemoglobin A1c 11.5 H, Calcium 9.5, Magnesium 2.4 H, Total Bilirubin 1.2, AST 30, ALT 31, Alkaline Phosphatase 78, Troponin I < 0.01, NT-Pro-B Natriuret Pep 384 H, Total Protein 7.3, Albumin 4.6, Globulin 2.7, Albumin/Globulin Ratio 1.7, Lipase 132, Procalcitonin 0.222 05/30/24 17:08: Chlamy pneumoniae PCR Not detected, Adenovirus (PCR) Not detected, B. pertussis DNA (PCR) Not detected, Coronavirus OC43 (PCR) Not detected, Coronavirus HKU1 (PCR) Not detected, Coronavirus 229E (PCR) Not detected, SARS-CoV-2 (PCR) Not detected, Coronavirus NL63 (PCR) Not detected, Human Metapneumovir PCR Not detected, Influenza A (H1) PCR Not detected, Influ A (H1N1/09) PCR Not detected, Influenza A (H3) PCR Not detected, Influenza Type A (PCR) Not detected, Influenza Type B (PCR) Not detected, M. pneumoniae (PCR) Not detected, Parainfluenza 1 (PCR) Not detected, Parainfluenza 2 (PCR) Not detected, Parainfluenza 3 (PCR) Not detected, Parainfluenza 4 (PCR) Not detected, RSV (PCR) Not detected, Entero/Rhino (PCR) Not detected 05/30/24 17:10: VBG pH 7.36, VBG pCO2 38.7, VBG pO2 48.7 H, VBG HCO3 21.6 L, VBG Total CO2 22.8 L, VBG O2 Saturation 81.3 H, VBG Base Excess -3.8 L, VBG Lactic Acid 2.1 H 05/30/24 21:00: D-Dimer 0.75 H, Troponin I < 0.01 05/30/24 21:29: Lactate 1.2 05/30/24 21:46: POC Glucose 309 H* 05/30/24 23:12: Troponin I < 0.01 05/31/24 06:10: POC Glucose 234 H 05/31/24 08:37: WBC 4.3 L D, RBC 4.08 L, Hgb 12.8 L, Hct 37.2 L, MCV 91.2, MCH 31.4 H, MCHC 34.4, RDW 13.4, Plt Count 233, MPV 9.5, Neut % (Auto) 66.7, Lymph % (Auto) 20.3, [place] % (Auto) 10.2 H, Eos % (Auto) 1.4, Baso % (Auto) 0.9, Neut # (Auto) 2.9, Lymph # (Auto) 0.9, [place] # (Auto) 0.4, Eos # (Auto) 0.1, Baso # (Auto) 0.0, Sodium 127 L, Potassium 3.8, Chloride 94 L, Carbon Dioxide 24, Anion Gap 12.8, BUN 48 H, Creatinine 1.90 H, Estimated Creat Clear 56, Estimated GFR 36 L, Est GFR ( Amer) 44 L D, Glucose 247 H D, Calcium 8.6, Magnesium 2.6 H, Total Bilirubin 1.1, AST 28, ALT 28, Alkaline Phosphatase 68, Total Protein 6.4, Albumin 4.0 D, Globulin 2.4, Albumin/Globulin Ratio 1.7 05/31/24 11:41: POC Glucose 280 H I & O for Labs for Last 24 Hours: Intake & Output 05/28/24 05/29/24 05/30/24 05/31/24 23:59 23:59 23:59 23:59 Intake Total 1160 / 1160 Output Total 1700 / 1700 Balance -1 / -1 -540 / -540 Weight 97.522 kg 97.5 kg Constitutional: Present no acute distress, obese, chronically ill appearing and cooperative Head: Present atraumatic and normocephalic Respiratory: Present normal respiratory effort; Absent rhonchi, wheezes or crackles Cardiac: Present Reg Rate and Rhythm Comment:: Chest tender to palpation left pectoralis, reproduces pain that he complains of GI: Present soft and normal bowel sounds; Absent distention or tenderness Extremities: Present normal inspection and full ROM Skin: Present intact; Absent erythema Neuro: Present Grossly Intact, alert, awake, oriented x 3 and moves all extremities Assessment and Plan *Assessment and plan (1) Acute kidney injury superimposed on chronic kidney disease: Status: Acute Category: Medical Code(s): N17.9 - Acute kidney failure, unspecified; N18.9 - Chronic kidney disease, unspecified (2) Chest pain: Status: Acute Qualifiers: Chest pain type: unspecified Qualified Code(s): R07.9 - Chest pain, unspecified Category: Medical Code(s): R07.9 - Chest pain, unspecified (3) Elevated d-dimer: Status: Acute Category: Medical Code(s): R79.89 - Other specified abnormal findings of blood chemistry (4) Hyponatremia: Status: Acute Category: Medical Code(s): E87.1 - Hypo-osmolality and hyponatremia (5) Type II diabetes mellitus: Status: Acute Qualifiers: Chronic kidney disease stage: stage 3 (moderate) Chronic kidney disease stage 3 subtype: stage 3a (GFR 45-59) Diabetes mellitus complication detail: with chronic kidney disease Diabetes mellitus complication status: with kidney complications Diabetes mellitus detention insulin use: unspecified detention insulin use status Qualified Code(s): E11.22 - Type 2 diabetes mellitus with diabetic chronic kidney disease; N18.31 - Chronic kidney disease, stage 3a Category: Medical Code(s): E11.9 - Type 2 diabetes mellitus without complications (6) Chronic back pain: Status: Acute Qualifiers: Back pain laterality: left Back pain location: thoracic back pain Qualified Code(s): M54.6 - Pain in thoracic spine; G89.29 - Other chronic pain Category: Medical Code(s): M54.9 - Dorsalgia, unspecified; G89.29 - Other chronic pain (7) Anxiety and depression: Status: Acute Category: Medical Code(s): F41.9 - Anxiety disorder, unspecified; F32.A - Depression, unspecified Plan 63-year-old male with a past medical history of Type II DM, CKD stage IIIa, Chronic Back Pain, Hypertension, non-small cell lung carcinoma s/p chemoradiotherapy in remission, Anxiety/Depression. Appears to have uncontrolled diabetes along with nondescript pains likely from musculoskeletal source. Addressing electrolyte disturbances and diabetes. Kidney function showing some improvement. Continues to require inpatient management. Chest Pain CAD - Presented with acute episode of chest pain associated with shortness of air with radiation to left shoulder, pain reproducible on exam. Appears to be musculoskeletal in nature. -Serial troponins negative. -CTA of the chest obtained today, no PEs noted or airspace disease. -Echo obtained, formal read pending -Holding on cards consult pending echo findings. -Continue Plavix 75 mg daily, empagliflozin 25 mg daily, isosorbide mononitrate 60 mg daily, lisinopril on hold given low blood pressure; metoprolol tartrate 25 mg twice daily, Crestor 40 mg nightly; holding diuretics Acute Kidney Injury superimposed on chronic kidney disease - Most recent baseline creatinine in 1.3 range -Creatinine 2.3 on admission, improved to 1.9 this morning. BUN 48. Repeat CBC, CMP, magnesium ordered for the morning. -Hold diuretics and nephrotoxins -Tolerating p.o. fluids, discontinue IV fluids Hyponatremia -Sodium remains low at 127, monitor for improvement with fluid resuscitation and correction of electrolyte disturbances/metabolic disturbances. -Potassium 3.8 Uncontrolled diabetes -On sliding scale insulin per his report. Stop Mounjaro due to abdominal pain several months ago. Glucose elevated in the 400 range on admission. A1c elevated at 11.5. -Continue sliding scale insulin with fingersticks ACHS. Initiated on basal insulin. - Receiving insulin glargine 35 units nightly. On high intensity sliding scale. - Carbohydrate controlled diet - Close follow up with PCP at discharge Chronic Back Pain - Continue gabapentin 300 mg 3 times a day and oxycodone 10 mg as needed 3 times a day DVT ppx: Heparin sub q
--- NOTE | 2024-05-31 17:29 | PC.NURSE ---
aox4, not requiring o2 support. medicated for pain per mar with good effectiveness. dexcom for glucose monitoring.
[2024-05-31] MEDS: FAMOTIDINE 20MG TABLET 20 MG PO (20:12)
[2024-05-31] MEDS: ATORVASTATIN 40MG TABLET 40 MG PO (20:12)
[2024-05-31] MEDS: INSULIN GLARGINE 100 UNITS/ML 3ML FLEXPEN 35 UNIT SUBCUT (20:13)
[2024-06-01] VITALS: BP 103/50; PULSE 65; PULSE 70; RESP 16; TEMP 36.4; O2SAT 96
[2024-06-01] MEDS: OXYCODONE 5MG IMMEDIATE RELEASE TABLET 10 MG PO ×2 (02:10→09:50)
[2024-06-01 04:00] VITALS: BP 100/51; PULSE 70; PULSE 71; RESP 16; TEMP 36.7; O2SAT 97; BMI 36.6
[2024-06-01 05:38] LABS: POC Glucose,Bedside 148 (70-110)
[2024-06-01 07:21] LABS: Albumin Level 3.6 g/dl (3.5-5.0); Chloride 105 mmol/L (98-107); Sodium 130 mmol/L (136-145)
[2024-06-01 07:22] LABS: Potassium 3.9 mmoL/L (3.5-5.1)
[2024-06-01 07:24] LABS: Alanine Aminotransferase 23 U/L (12-78); Albumin/Globulin Ratio 1.6 (1.1-1.8); Alkaline Phosphatase 60 U/L (38-126); Anion Gap 5.9 mEq/L (5-15); Aspartate Amino Transferase 24 U/L (17-59); Bilirubin,Total 0.9 mg/dl (0.2-1.3); Blood Urea Nitrogen 27 mg/dl (9-20); Calcium 8.8 mg/dl (8.4-10.2); Carbon Dioxide 23 mmol/L (22.0-30.0); Creatinine Clearance Estimated 91 mL/min (50-200); Estimated Glomerular Filt Rate 62 ml/min (>60); GFR (African American) 74 ML/MIN (>60); Globulin 2.3 g/dL (1.3-3.2); Glucose 127 mg/dl (74-100); Magnesium 2.6 mg/dl (1.6-2.3); Total Protein,Serum 5.9 g/dl (6.3-8.2)
[2024-06-01 08:00] VITALS: BP 112/58; PULSE 84; RESP 18; TEMP 36.8; O2SAT 99
[2024-06-01] MEDS: TIOTROPIUM 18MCG/PUFF INHALER 1 CAP IH (08:11)
[2024-06-01 08:44] LABS: White Blood Count 3.3 K/mm3 (4.8-10.8)
[2024-06-01 08:45] LABS: Basophils % 1.5 % (0.1-2.0); Eosinophils % 3.4 % (0.1-12.0); Hematocrit 33.3 % (42.0-52.0); Lymphocytes % 30.7 % (10-50); Mean Corpuscular HGB Conc 34.2 g/dL (31.8-35.4); Mean Corpuscular Hemoglobin 31.2 pg (27.0-31.2); Mean Corpuscular Volume 91.2 fl (80-94); Mean Platelet Volume 9.7 fl (7.4-10.4); Neutrophils % 52.1 % (37.0-80.0); Platelet Count 220 K/mm3 (142-424); Red Blood Count 3.65 M/mm3 (4.60-6.20); Red Cell Distribution Width 13.2 % (11.5-17.5)
[2024-06-01 08:46] LABS: Basophils # 0.1 K/mm3 (0-0.2); Eosinophils # 0.1 K/mm3 (0.0-0.4); Monocytes # 0.4 K/mm3 (0.1-1.0); Neutrophils # 1.7 K/mm3 (1.8-7.8)
[2024-06-01] MEDS: METOPROLOL TARTRATE 25MG TABLET 25 MG PO (08:58)
[2024-06-01] MEDS: CLOPIDOGREL 75MG TAB 75 MG PO (08:58)
[2024-06-01] MEDS: GABAPENTIN 300MG CAPSULE 300 MG PO (08:58)
[2024-06-01] MEDS: ISOSORBIDE MONO 60MG TAB.ER.24H 60 MG PO (08:58)
[2024-06-01 08:59] LABS: Hemoglobin 11.4 g/dL (14.1-18.0)
--- NOTE | 2024-06-01 09:17 | EXP.DC.SUM ---
General Admission date:: 05/30/24 Discharge date: 06/01/24 HPI HPI HPI: Mr. Persaud is a 63-year-old male with a past medical history of Type II DM, CKD stage IIIa, Chronic Back Pain, Hypertension, non-small cell lung carcinoma s/p chemoradiotherapy in remission, Anxiety/Depression. He presents to [facility] due to an acute episode of chest pain that occurred in the home today prior to arrival. He reports that the pain was in the left substeral chest region and as associated with shortness of air, he denies nausea or sweating. He reports that the pain radiated to the left shoulder blade. In the ER, the patient underwent an EKG that showed: Sinus Tachycardia with rate of 104, Troponin was <0.01. D-dimer was 0.91. CBC was unremarkable. CMP showed a sodium of 126, Creatinine of 2.30, Glucose of 317. Cxray showed Bullous emphysematous changes in the superomedial left upper lung lobe. In the ER, the patient received: Normal Saline x 1 liter, Morphine 2 mg iv, Methocarbinol 500 mg po x 1, Toradol 5 mg iv and GI cocktail x 1. The patient is admitted with initial impression: Acute Chest Pain Hospital Course Hospital Course Hospital Course: 63-year-old male with a past medical history of Type II DM, CKD stage IIIa, Chronic Back Pain, Hypertension, non-small cell lung carcinoma s/p chemoradiotherapy in remission, Anxiety/Depression. Appears to have uncontrolled diabetes along with nondescript pains likely from musculoskeletal source. Electrolytes and kidney function improved during admission. Improved glucose control with initiation of long-acting insulin. Needs continued monitoring and treatment for his uncontrolled diabetes. Medically stable for discharge home. No plan for intervention for chest discomfort. Troponins negative. Problems addressed as follows addressing electrolyte disturbances and diabetes. Kidney function showing some improvement. Continues to require inpatient management. Chest Pain CAD - Presented with acute episode of chest pain associated with shortness of air with radiation to left shoulder, pain reproducible on exam. Appears to be musculoskeletal in nature. Serial troponins negative. CTA of the chest obtained today, no PEs noted or airspace disease. Echo obtained, formal read pending, preliminary shows no wall motion abnormalities. Continue Plavix 75 mg daily, empagliflozin 25 mg daily, isosorbide mononitrate 60 mg daily, metoprolol tartrate 25 mg twice daily, Crestor 40 mg nightly. Resume diuretics and lisinopril at discharge due to improvement in blood pressure and normalization of kidney function. Acute Kidney Injury superimposed on chronic kidney disease - Most recent baseline creatinine in 1.3 range. Creatinine 2.3 on admission, improved to normal by day of discharge BUN 27, creatinine 1.2. Hyponatremia -So him showing improvement with correction of dehydration and TISHA. Sodium 130 on morning of discharge, potassium normal at 3.9, chloride 105, magnesium 2.6 Uncontrolled diabetes -A1c elevated at 11.5. States he has not been on basal insulin for few months and stop Mounjaro due to abdominal discomfort. Glucose elevated above 400 on admission. Initiated on sliding scale insulin with initiation of basal. Tolerating insulin glargine. Continue 35 units nightly and home sliding scale regimen with Humalog. Close follow-up with PCP and endocrinology for further management. Chronic Back Pain - Continue gabapentin 300 mg 3 times a day and oxycodone 10 mg as needed 3 times a day Total time spent on discharge 32 minutes in counseling, documentation, chart review, and direct care with patient. Exam Data for Last 24 hours Vital signs and Labs for Last 24 Hours: Temp Pulse Resp BP Pulse Ox O2 Del Method 98.2 F 84 18 112/58 L 99 Room Air 06/01/24 08:00 06/01/24 08:00 06/01/24 08:00 06/01/24 08:00 06/01/24 08:00 06/01/24 08:00 Laboratory Results - last 24 hr 05/30/24 21:46: POC Glucose 309 H* 05/31/24 08:37: WBC 4.3 L D, RBC 4.08 L, Hgb 12.8 L, Hct 37.2 L, MCV 91.2, MCH 31.4 H, MCHC 34.4, RDW 13.4, Plt Count 233, MPV 9.5, Neut % (Auto) 66.7, Lymph % (Auto) 20.3, [place] % (Auto) 10.2 H, Eos % (Auto) 1.4, Baso % (Auto) 0.9, Neut # (Auto) 2.9, Lymph # (Auto) 0.9, [place] # (Auto) 0.4, Eos # (Auto) 0.1, Baso # (Auto) 0.0 05/31/24 11:41: POC Glucose 280 H 06/01/24 05:13: POC Glucose 148 H 06/01/24 06:55: WBC 3.3 L, RBC 3.65 L, Hgb 11.4 L D, Hct 33.3 L, MCV 91.2, MCH 31.2, MCHC 34.2, RDW 13.2, Plt Count 220, MPV 9.7, Neut % (Auto) 52.1, Lymph % (Auto) 30.7, [place] % (Auto) 12.0 H, Eos % (Auto) 3.4, Baso % (Auto) 1.5, Neut # (Auto) 1.7 L, Lymph # (Auto) 1.0, [place] # (Auto) 0.4, Eos # (Auto) 0.1, Baso # (Auto) 0.1, Sodium 130 L, Potassium 3.9, Chloride 105, Carbon Dioxide 23, Anion Gap 5.9, BUN 27 H D, Creatinine 1.20 D, Estimated Creat Clear 91, Estimated GFR 62, Est GFR ( Amer) 74 D, Glucose 127 H D, Calcium 8.8, Magnesium 2.6 H, Total Bilirubin 0.9, AST 24, ALT 23, Alkaline Phosphatase 60, Total Protein 5.9 L, Albumin 3.6, Globulin 2.3, Albumin/Globulin Ratio 1.6 I & O for Last 24 hours: Intake & Output 05/29/24 05/30/24 05/31/24 06/01/24 23:59 23:59 23:59 23:59 Intake Total 1659 350 / 350 Output Total 170 / 1999 1300 / 1300 Balance -1 / -1 -40 / 10 -950 / -950 Weight 97.522 kg 97.5 kg 99.745 kg Constitutional Constitutional: no acute distress, obese and chronically ill appearing *Routine HEENT Exam Head: Present normocephalic Eye: Present EOMI and PERRL ENT: Present mucous membranes moist *Routine Neck Exam Neck: Present supple; Absent lymphadenopathy Routine Chest/Breast/Axilla Exam Chest wall: Absent tenderness *Routine Respiratory Exam Respiratory: Present CTA bilaterally; Absent respiratory distress, rhonchi, wheezes or crackles *Routine Cardiovascular Exam Cardiovascular: Present RRR *Routine Abdominal Exam Abdominal: Present soft and normoactive bowel sounds; Absent tenderness *Routine Rectal Exam Patient deferred: visual exam *Routine Exam Patient deferred: penile exam *Routine Extremities Exam Extremities: Absent cyanosis, clubbing or edema *Routine Skin Exam Skin: Present warm; Absent rash *Routine Neurological Exam Neurological: Present alert, oriented X3 and moving all extremities; Absent altered mental status Results Data Completed and Pending Labs on day of discharge: Labs from last 24 hours 06/01/24 06/01/24 05/31/24 06:55 05:13 11:41 WBC 3.3 L RBC 3.65 L Hgb 11.4 L D Hct 33.3 L MCV 91.2 MCH 31.2 MCHC 34.2 RDW 13.2 Plt Count 220 MPV 9.7 Neut % (Auto) 52.1 Lymph % (Auto) 30.7 [place] % (Auto) 12.0 H Eos % (Auto) 3.4 Baso % (Auto) 1.5 Neut # (Auto) 1.7 L Lymph # (Auto) 1.0 [place] # (Auto) 0.4 Eos # (Auto) 0.1 Baso # (Auto) 0.1 Sodium 130 L Potassium 3.9 Chloride 105 Carbon Dioxide 23 Anion Gap 5.9 BUN 27 H D Creatinine 1.20 D Estimated Creat Clear 91 Estimated GFR 62 Est GFR ( Amer) 74 D Glucose 127 H D POC Glucose 148 H 280 H Calcium 8.8 Magnesium 2.6 H Total Bilirubin 0.9 AST 24 ALT 23 Alkaline Phosphatase 60 Total Protein 5.9 L Albumin 3.6 Globulin 2.3 Albumin/Globulin Ratio 1.6 05/31/24 05/30/24 08:37 21:46 WBC 4.3 L D RBC 4.08 L Hgb 12.8 L Hct 37.2 L MCV 91.2 MCH 31.4 H MCHC 34.4 RDW 13.4 Plt Count 233 MPV 9.5 Neut % (Auto) 66.7 Lymph % (Auto) 20.3 [place] % (Auto) 10.2 H Eos % (Auto) 1.4 Baso % (Auto) 0.9 Neut # (Auto) 2.9 Lymph # (Auto) 0.9 [place] # (Auto) 0.4 Eos # (Auto) 0.1 Baso # (Auto) 0.0 Sodium Potassium Chloride Carbon Dioxide Anion Gap BUN Creatinine Estimated Creat Clear Estimated GFR Est GFR ( Amer) Glucose POC Glucose 309 H* Calcium Magnesium Total Bilirubin AST ALT Alkaline Phosphatase Total Protein Albumin Globulin Albumin/Globulin Ratio DS: Diagnosis Discharge Diagnosis (1) Acute kidney injury superimposed on chronic kidney disease: Status: Acute Code(s): N17.9 - Acute kidney failure, unspecified; N18.9 - Chronic kidney disease, unspecified (2) Chest pain: Status: Acute Code(s): R07.9 - Chest pain, unspecified Qualifiers: Chest pain type: unspecified Qualified Code(s): R07.9 - Chest pain, unspecified (3) Elevated d-dimer: Status: Acute Code(s): R79.89 - Other specified abnormal findings of blood chemistry (4) Hyponatremia: Status: Acute Code(s): E87.1 - Hypo-osmolality and hyponatremia (5) Type II diabetes mellitus: Status: Acute Code(s): E11.9 - Type 2 diabetes mellitus without complications Qualifiers: Chronic kidney disease stage: stage 3 (moderate) Chronic kidney disease stage 3 subtype: stage 3a (GFR 45-59) Diabetes mellitus complication detail: with chronic kidney disease Diabetes mellitus complication status: with kidney complications Diabetes mellitus nursing home insulin use: unspecified nursing home insulin use status Qualified Code(s): E11.22 - Type 2 diabetes mellitus with diabetic chronic kidney disease; N18.31 - Chronic kidney disease, stage 3a (6) Chronic back pain: Status: Acute Code(s): M54.9 - Dorsalgia, unspecified; G89.29 - Other chronic pain Qualifiers: Back pain laterality: left Back pain location: thoracic back pain Qualified Code(s): M54.6 - Pain in thoracic spine; G89.29 - Other chronic pain (7) Anxiety and depression: Status: Acute Code(s): F41.9 - Anxiety disorder, unspecified; F32.A - Depression, unspecified Meds Home Medications and Allergies Home Medications ?Medication ?Instructions ?Recorded ?Confirmed ?Type oxycodone 10 mg tablet 10 mg PO TID 03/31/23 05/30/24 History rosuvastatin 40 mg tablet 40 mg PO HS 03/31/23 05/30/24 History lisinopril 5 mg tablet 5 mg PO DAILY #90 tabs 06/16/23 05/30/24 Rx metoprolol tartrate 25 mg tablet 25 mg PO BID #90 tabs 06/16/23 05/30/24 Rx isosorbide mononitrate 60 mg 60 mg PO DAILY #90 tabs 12/03/23 05/30/24 Rx tablet,extended release 24 hr famotidine 20 mg tablet 20 mg PO HS 12/07/23 05/30/24 History tiotropium bromide 18 mcg capsule 1 cap inhalation DAILY 90 days 01/18/24 05/30/24 Rx with inhalation device (Spiriva #180 puffs with HandiHaler) albuterol sulfate 90 mcg/actuation 2 inh inhalation QIDP PRN 05/14/24 05/30/24 History aerosol inhaler shortness of breath or wheezing clopidogrel 75 mg tablet 75 mg PO DAILY 05/14/24 05/30/24 History empagliflozin 25 mg tablet 25 mg PO DAILY 05/14/24 05/30/24 History ergocalciferol (vitamin D2) 1,250 1,250 mcg PO WEEKLY 05/14/24 05/30/24 History mcg (50,000 unit) capsule spironolactone 50 mg tablet 50 mg PO DAILY 05/14/24 05/30/24 History torsemide 100 mg tablet 100 mg PO DAILY 05/14/24 05/30/24 History gabapentin 800 mg tablet 300 mg (0.375 x 800 mg) PO TID 30 05/16/24 05/30/24 Rx days #0 tabs insulin glargine 100 unit/mL (3 35 unit (0.35 mL) SQ HS 30 days 06/01/24 Rx mL) subcutaneous pen (Lantus #15 mL Solostar U-100 Insulin) insulin lispro 100 unit/mL See Rx Instructions .Route 06/01/24 Rx subcutaneous solution (Humalog .COMPLEX #0 mL U-100 Insulin) New Prescriptions to Start Prescriptions: insulin glargine [Lantus Solostar U-100 Insulin] Konstantin Dawn Allergies Allergy/AdvReac Type Severity Reaction Status Date / Time naproxen (NAPROXEN) Allergy Mild NA-NAUSEA/V Verified 04/18/24 09:03 OMITING tramadol (TRAMADOL) Allergy Mild NA-NAUSEA Verified 04/18/24 09:03 Discharge Plan Disposition Patient Disposition: Home, Self-Care Condition: Good Follow up Plan Follow up with: Kyler Holloway MD [Primary Care Provider] - Enter time for follow up (patient to call office for follow up appointment. ) Prescriptions/Medication Reconciliation: New insulin glargine [Lantus Solostar U-100 Insulin] 100 unit/mL (3 mL) Insulin Pen 35 unit SQ HS 30 Days Qty: 15 0RF insulin lispro [Humalog U-100 Insulin] 100 unit/mL Solution See Rx Instructions .ROUTE .COMPLEX Qty: 0 0RF Rx Instructions: per home sliding scale regimen Continued rosuvastatin 40 mg tablet 40 mg PO HS oxycodone 10 mg tablet 10 mg PO TID lisinopril 5 mg tablet 5 mg PO DAILY Qty: 90 0RF metoprolol tartrate 25 mg tablet 25 mg PO BID Qty: 90 0RF famotidine 20 mg tablet 20 mg PO HS isosorbide mononitrate 60 mg tablet extended release 24 hr 60 mg PO DAILY Qty: 90 1RF tiotropium bromide [Spiriva with HandiHaler] 18 mcg capsule, w/inhalation device 1 cap inhalation DAILY 90 Days Qty: 180 3RF Rx Instructions: puncture 1 cap using device; one dose = 2 inhalations clopidogrel 75 mg tablet 75 mg PO DAILY torsemide 100 mg tablet 100 mg PO DAILY ergocalciferol (vitamin D2) 1,250 mcg (50,000 unit) capsule 1,250 mcg PO WEEKLY albuterol sulfate 90 mcg/actuation HFA aerosol inhaler 2 inh IH QIDP PRN (Reason: shortness of breath or wheezing) spironolactone 50 mg tablet 50 mg PO DAILY empagliflozin 25 mg tablet 25 mg PO DAILY gabapentin 800 mg tablet 300 mg PO TID 30 Days Qty: 0 0RF Problem Reconciliation Problems Reviewed?: Yes Patient Discharge Instructions ACTIVITY: Continue current activity DIET: continue same diet Print Language: Korean Providers Primary Care Provider: Kyler Holloway [place] Provider: Tyrell Coyle Attending Provider: Tyrell Coyle
--- NOTE | 2024-06-02 10:20 | SW/DCPLANNER ---
Spoke with patient on the phone. Patient stated that he is doing very well since his Discharge. Patient stated that he goes next Thursday to his primary care provider for a follow up. 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 Patient stated that he has no concerns or questions at this time. Hiram Everett
== END 2024-06-01 10:00 | disposition home or self-care (01) ==
LOC: ER 18:09 → 2ND 19:47
PROVIDERS: Internal Medicine Adolescent Medicine; Nurse Practitioner Family; Physician Assistant; Admitting Provider Student in an Organized Health Care Education/Training Program; Emergency Provider Emergency Medicine; PCP Family Medicine; Visit Provider Student in an Organized Health Care Education/Training Program
DX: I12.9 Hypertensive chronic kidney disease with stage 1 through stage 4 chronic kidney disease, or unspecified chronic kidney disease (principal); R07.9 Chest pain, unspecified; N18.31 Chronic kidney disease, stage 3a; N17.9 Acute kidney failure, unspecified; E87.1 Hypo-osmolality and hyponatremia; E11.22 Type 2 diabetes mellitus with diabetic chronic kidney disease; M54.6 Pain in thoracic spine; G89.29 Other chronic pain; E11.65 Type 2 diabetes mellitus with hyperglycemia; F41.9 Anxiety disorder, unspecified; F32.A Depression, unspecified; F17.210 Nicotine dependence, cigarettes, uncomplicated; J44.9 Chronic obstructive pulmonary disease, unspecified; Z79.4 Long term (current) use of insulin; Z79.899 Other long term (current) drug therapy; Z85.118 Personal history of other malignant neoplasm of bronchus and lung; I25.10 Atherosclerotic heart disease of native coronary artery without angina pectoris
CPT/HCPCS: 71046; 71275; 80053; 82803; 82962; 83036; 83605; 83690; 83735; 83880; 84145; 84484; 85025; 85378; 85610; 87633; 93005; 93306; 93970; 94640; 99291; G0378; J1644; J1885; J2270; J7030; Q0162; Q9967

== ENCOUNTER 2024-06-04 10:21 | Emergency (ER) | payer BC, SELFPAY ==
[2024-06-04 10:22] VITALS: BP 110/61; PULSE 70; RESP 18; TEMP 36.7; O2SAT 98; BMI 34.9
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
[2024-06-04] MEDS: ACETAMINOPHEN 500MG TAB 1000 MG PO (11:14)
[2024-06-04] MEDS: LIDOCAINE 5% TRANSDERMAL PATCH 1 EACH TP (11:14)
[2024-06-04] MEDS: KETOROLAC 30MG/ML VIAL 30 MG IM (11:14)
[2024-06-04] MEDS: METHOCARBAMOL 500MG TABLET 1000 MG PO (11:14)
[2024-06-04 11:20] VITALS: BP 126/69; PULSE 70; RESP 18; TEMP 36.7; O2SAT 98
== END 2024-06-04 11:20 | disposition home or self-care (01) ==
PROVIDERS: Emergency Provider Emergency Medicine; PCP Family Medicine
DX: M54.50 Low back pain, unspecified (principal)
CPT/HCPCS: 96372; 99283; J1885

== ENCOUNTER 2024-06-16 13:35 | Outpatient (CLI) | payer OTHER, SELFPAY ==
[2024-06-16 14:13] LABS: Basophils # 0.1 K/mm3 (0-0.2); Basophils % 0.8 % (0.1-2.0); Eosinophils # 0.1 K/mm3 (0.0-0.4); Eosinophils % 1.4 % (0.1-12.0); Hematocrit 40.2 % (42.0-52.0); Hemoglobin 13.7 g/dL (14.1-18.0); Lymphocytes # 1.6 K/mm3 (0.7-4.5); Lymphocytes % 21.9 % (10-50); Mean Corpuscular HGB Conc 34.1 g/dL (31.8-35.4); Mean Corpuscular Hemoglobin 31.6 pg (27.0-31.2); Mean Corpuscular Volume 92.8 fl (80-94); Mean Platelet Volume 9.5 fl (7.4-10.4); Monocytes # 0.8 K/mm3 (0.1-1.0); Monocytes % 11.3 % (1.7-9.3); Neutrophils # 4.6 K/mm3 (1.8-7.8); Neutrophils % 64.2 % (37.0-80.0); Platelet Count 341 K/mm3 (142-424); Red Blood Count 4.33 M/mm3 (4.60-6.20); Red Cell Distribution Width 13.5 % (11.5-17.5); White Blood Count 7.2 K/mm3 (4.8-10.8)
== END 2024-06-16 23:59 | disposition home or self-care (01) ==
LOC: LAB 13:36
PROVIDERS: PCP Family Medicine; Visit Provider Internal Medicine Medical Oncology
DX: C34.90 Malignant neoplasm of unspecified part of unspecified bronchus or lung (principal)
CPT/HCPCS: 36415; 85025

== ENCOUNTER 2024-07-08 15:00 | Outpatient (CLI) | payer OTHER, SELFPAY ==
--- NOTE | 2024-07-08 15:07 | MR_ITS ---
FINAL REPORT CLINICAL HISTORY: NECK PAIN LEFT ARM NUMBNESS AND PAIN COMPARISON: 05/20/2022 FINDINGS: Multi planar MR imaging was obtained of the cervical spine. There is abnormal decreased signal throughout the cervical discs. There is moderate loss of disc space height at the C5-6 and C6-7 levels. The vertebrae are of normal height. There is no malalignment. The cervical cord demonstrates normal signal and configuration. Note is made of a hemangioma in the T1 vertebral body, also seen on the prior exam. C2-C3: There is no evidence of significant disc bulge or protrusion. There is no significant facet hypertrophy. C3-C4: There is no evidence of significant disc bulge or protrusion. There is no significant facet hypertrophy. C4-C5: There is no evidence of significant disc bulge or protrusion. There is no significant facet hypertrophy. C5-C6: A moderate annular bulge is present, with endplate hypertrophy, moderate canal stenosis and severe bilateral neural foraminal narrowing. C6-C7: A moderate annular bulge is present with endplate hypertrophy, and moderate bilateral neural foraminal narrowing. C7-T1: There is no evidence of significant disc bulge or protrusion. There is no significant facet hypertrophy. IMPRESSION: Moderate degenerative changes present at the C5-6 and C6-7 levels, most prominent at the C5-6 level with severe bilateral neural foraminal narrowing and moderate canal stenosis. Reviewed, Interpreted and Dictated by Giles Mcfadden MD Transcribed by Katty Evans Authenticated and [facility]
== END 2024-07-08 23:59 | disposition home or self-care (01) ==
LOC: RAD 15:01
PROVIDERS: PCP Nurse Practitioner Psychiatric/Mental Health; Visit Provider Nurse Practitioner Family
DX: M50.123 Cervical disc disorder at C6-C7 level with radiculopathy (principal)
CPT/HCPCS: 72141

== ENCOUNTER 2024-07-26 09:50 | Day surgery (SDC) | payer OTHER, SELFPAY ==
[2024-07-25 12:41] VITALS: BMI 34.9
[2024-07-26 10:08] VITALS: BP 116/64; PULSE 84; RESP 18; TEMP 36.4; O2SAT 98
--- NOTE | 2024-07-26 10:13 | [facility]H.SCOPE ---
Procedure: Date: 07/26/24 Patient Date of :: 1960 Procedure Performed:: Colonoscopy Indications:: History of colon polyps Note: The patient's most recent colonoscopy in July 2023 was complicated by moderate to poor bowel prep and fairly profound spasticity. A polyp at 25 cm was excised. Prior colonoscopy in December 2019 was complicated by severe spasticity (multiple polyps excised). Secondary to visualization difficulties the patient was given recommendations for gastroenterology evaluation and repeat colonoscopy by the gastroenterology service. He did not maintain his appointment with gastroenterology. Performing Provider:: Deonte Robledo MD Referring Provider:: . Sedation:: Monitored anesthesia care Procedure:: After informed consent was obtained the patient was taken to the endoscopy suite. Sedation ensued after the patient was transferred to the left lateral decubitus position. Pulse, blood pressure, and oxygen saturation were monitored throughout the procedure. Digital rectal exam revealed no significant abnormality. The colonoscope was placed in position. The entire colon was evaluated. The colonoscope was carefully removed and the patient was transferred to recovery in stable condition. Please see findings and specimens below for detail. Findings:: Bowel preparation poor Significant spasticity/lack of relaxation Moderate tortuosity Transverse colon tattoo site appeared normal Specimens:: None Recommendations:: Once again, I recommend the patient be evaluated by gastroenterology service secondary to likely chronic constipation and possible irritable bowel syndrome. Fairly short-term repeat colonoscopy deferred to the gastroenterology service. Complications:: No immediate with the exception of poor bowel preparation Estimated blood obtained (mL): 0 Colonoscopy Component Colonoscopy Component Was a colonoscopy performed during today's procedure?: Yes Recommended follow up colonoscopy of at least 10 years?: No If no, follow up colonoscopy recommended in ___ years?: (See above) Reason for not recommending >/= 10 yr follow-up interval?: (See above)
[2024-07-26] MEDS: LACTATED RINGERS 1000ML 1,000 ML 50 ML IV (10:21)
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
[2024-07-26 10:27] VITALS: O2SAT 98
[2024-07-26 10:29] LABS: POC Glucose,Bedside 81 (70-110)
[2024-07-26 11:08] VITALS: BP 94/48; PULSE 80; RESP 20; TEMP 36.3; O2SAT 98
[2024-07-26 11:18] VITALS: BP 98/54; PULSE 84; RESP 17; O2SAT 98
[2024-07-26 11:28] VITALS: BP 99/54; PULSE 89; RESP 17; O2SAT 97
[2024-07-26 11:38] VITALS: BP 108/59; PULSE 76; RESP 17; O2SAT 95
== END 2024-07-26 11:50 | disposition home or self-care (01) ==
PROVIDERS: PCP Social Worker; Visit Provider Surgery
PROC: 0DJD8ZZ Inspection of Lower Intestinal Tract, Via Natural or Artificial Opening Endoscopic (ICD-10-PCS; CPT 45378; principal; 2024-07-26 10:30)
DX: Z09 Encounter for follow-up examination after completed treatment for conditions other than malignant neoplasm (principal); Z86.0100 Personal history of colon polyps, unspecified
CPT/HCPCS: 45378; 82962; J7120

== ENCOUNTER 2024-10-08 18:59 | Observation (INO) | payer OTHER, SELFPAY ==
[2024-10-08] VITALS (8 sets, daily range): BP systolic 128–158; BP diastolic 61–93; PULSE 76–106; RESP 16–18; TEMP 36.4–37.2; O2SAT 90–99; BMI 34.9; BMI 34.8
[2024-10-08] MEDS: 0.9 % SODIUM CHLORIDE 1000ML 1,000 ML 999 ML IV (19:19)
[2024-10-08] MEDS: ONDANSETRON 4MG/2ML VIAL 4 MG IV (19:19)
[2024-10-08 19:37] LABS: Basophils % 0.2 % (0.1-2.0); Hematocrit 50.8 % (42.0-52.0); Hemoglobin 17.5 g/dL (14.1-18.0); Lymphocytes # 0.8 K/mm3 (0.7-4.5); Lymphocytes % 5.6 % (10-50); Mean Corpuscular HGB Conc 34.4 g/dL (31.8-35.4); Mean Corpuscular Hemoglobin 31.1 pg (27.0-31.2); Mean Corpuscular Volume 90.4 fl (80-94); Mean Platelet Volume 10.7 fl (7.4-10.4); Monocytes # 1.5 K/mm3 (0.1-1.0); Neutrophils # 12.3 K/mm3 (1.8-7.8); Neutrophils % 83.9 % (37.0-80.0); Nucleated Red Blood Cells # 0 10^3/uL; Nucleated Red Blood Cells % 0 %; Platelet Count 233 K/mm3 (142-424); Red Blood Count 5.62 M/mm3 (4.60-6.20); Red Cell Distribution Width-SD 42.9 fL; White Blood Count 14.7 K/mm3 (4.8-10.8)
[2024-10-08 19:42] LABS: Chloride 90 mmol/L (98-107)
[2024-10-08 19:43] LABS: Albumin Level 5.3 g/dl (3.5-5.0); Potassium 4.3 mmoL/L (3.5-5.1); Sodium 132 mmol/L (136-145)
[2024-10-08 19:45] LABS: Creatinine Clearance Estimated 42 mL/min (50-200); Estimated Glomerular Filt Rate 26 ml/min (>60); GFR (African American) 32 ML/MIN (>60)
[2024-10-08] MEDS: MORPHINE 4MG/ML SYRINGE 4 MG IV (19:45)
[2024-10-08 19:46] LABS: Alanine Aminotransferase 34 U/L (12-78); Albumin/Globulin Ratio 1.7 (1.1-1.8); Alkaline Phosphatase 79 U/L (38-126); Anion Gap 18.3 mEq/L (5-15); Aspartate Amino Transferase 38 U/L (17-59); Bilirubin,Total 1.5 mg/dl (0.2-1.3); Calcium 10.6 mg/dl (8.4-10.2); Carbon Dioxide 28 mmol/L (22.0-30.0); Globulin 3.1 g/dL (1.3-3.2); Glucose 334 mg/dl (74-100); Lipase 49 U/L (23-300); Total Protein,Serum 8.4 g/dl (6.3-8.2)
[2024-10-08 19:51] LABS: Blood Urea Nitrogen 98 mg/dl (9-20)
--- NOTE | 2024-10-08 19:51 | PC.NURSE ---
critical called [id number]
--- NOTE | 2024-10-08 19:55 | CT_ITS ---
PROCEDURE INFORMATION: Exam: CT Abdomen And Pelvis Without Contrast Exam date and time: 10/08/2024 8:07 PM Age: 63 years old Clinical indication: Abdominal pain TECHNIQUE: Imaging protocol: Computed tomography of the abdomen and pelvis without contrast. Total images: 318 Radiation optimization: All CT scans at this facility use at least one of these dose optimization techniques: automated exposure control; mA and/or kV adjustment per patient size (includes targeted exams where dose is matched to clinical indication); or iterative reconstruction. COMPARISON: CT ABDOMEN PELVIS W CON 04/06/2024 12:26 PM FINDINGS: Lungs: Calcified right basilar granuloma. Partially visualized similar pattern of left perihilar fibrosis/scarring. Heart: Normal heart size. Coronary arteries: Coronary artery calcifications. Esophagus: Distal esophageal wall thickening. Liver: Normal. No mass. Gallbladder and biliary ducts: Status post cholecystectomy. Stable mild biliary ductal dilatation in keeping with post cholecystectomy ectasia. Pancreas: Scattered pancreatic calcifications compatible with chronic pancreatitis. Indistinct hypodense mass or complex cystic lesion in the pancreatic head, measuring 2.5 cm. Spleen: Normal. No splenomegaly. Adrenal glands: Normal. No mass. Kidneys and ureters: No hydronephrosis, nephrolithiasis, or discrete renal mass. Mild bilateral perinephric edema. Stomach and bowel: Unremarkable stomach and duodenum. No ileus or bowel obstruction. Unremarkable small bowel. Unremarkable colon and rectum. Appendix: Normal appendix. Intraperitoneal space: Unremarkable. No free air. No significant fluid collection. Vasculature: 3.1 cm infrarenal abdominal aortic aneurysm. Mild atherosclerotic vascular disease. Ectatic bilateral common iliac arteries. 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 Lymph nodes: Calcified right hilar lymph nodes. Small benign-appearing bilateral inguinal lymph nodes. Urinary bladder: Unremarkable as visualized. Reproductive: Nonenlarged prostate. Bones/joints: Moderate degenerative changes of the thoracolumbar spine. Minor lumbar levocurvature. Mild degenerative changes bilateral hips and SI joints. Soft tissues: Minor bilateral gynecomastia. IMPRESSION: 1. Indistinct 2.5 cm pancreatic head mass or complex cystic lesion. Recommend follow-up nonemergent pancreatic MRI. 2. Distal esophageal wall thickening concerning for esophagitis. 3. Stable 3.1 cm infrarenal abdominal aortic aneurysm. 4. Mild bilateral perinephric edema. Please correlate with urinalysis and renal function. No obstructive uropathy. 5. Additional chronic and incidental findings pre
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
[2024-10-08 20:54] LABS: Lactic Acid 2.3 mmol/L (0.7-2.1)
[2024-10-08 21:27] LABS: Microscopic, Urine URINE MICROSCOPIC (MICROSCOPIC)
[2024-10-08 21:28] LABS: Appearance,Urine CLEAR (Clear); Bilirubin,Urine Negative (Negative); Blood, Urine 1+ (Negative); Color,Urine YELLOW (Yellow); Glucose,Urine (UA) 3+ (Negative); Ketones,Urine Negative (Negative); Leukocyte Esterase,Urine Negative (Negative); Nitrate,Urine Negative (Negative); Protein,Urine TRACE (Negative); Urobilinogen,Urine 0.2 EU/dl (0.2)
[2024-10-08 21:37] LABS: Bacteria,Urine Trace /lpf; WBC,Urine Occasional #/hpf (0-3)
--- NOTE | 2024-10-08 21:58 | PC.NURSE ---
Contacted [facility] home for admittance, diagnosis TISHA
--- NOTE | 2024-10-08 22:32 | PC.NURSE ---
called report to [facility] for admission to the hospital
[2024-10-08] MEDS: PANTOPRAZOLE 40MG VIAL 40 MG IV (22:50)
[2024-10-08] MEDS: SODIUM CHLORIDE 0.9% 10ML VIAL 10 ML IV (22:50)
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
[2024-10-08] MEDS: humaLOG 100 UNITS/ML 10ML VIAL (SSI) SUBCUT (23:48)
[2024-10-08 23:56] LABS: POC Glucose,Bedside 292 (70-110)
[2024-10-09 00:03] LABS: VBG Base Excess 1.9 mmol/L (-2.4-2.3); VBG HCO3 26.8 mmol/L (23-30); VBG Oxygen Saturation 64.1 % (50-70); VBG PH 7.39 mmol/L (7.31-7.41); VBG PO2 35.8 mmol/L (28-40); VBG Total CO2 28.2 mmol/L (23-27)
[2024-10-09 00:03] LABS: Procalcitonin 0.135 ng/mL (0.0-2.0)
[2024-10-09 00:07] LABS: Lactate Venous 2.7 mmol/L (0.4-2.0)
[2024-10-09] MEDS: MORPHINE 2MG/ML SYRINGE 2 MG IV ×5 (00:11→21:04)
[2024-10-09] MEDS: ONDANSETRON 4MG/2ML VIAL 4 MG IV ×2 (00:11→15:28)
[2024-10-09 00:12] LABS: Lactic Acid 2.3 mmol/L (0.7-2.1)
[2024-10-09 00:14] LABS: Chloride 95 mmol/L (98-107); Potassium 4.8 mmoL/L (3.5-5.1); Sodium 135 mmol/L (136-145)
[2024-10-09 00:17] LABS: Anion Gap 16.8 mEq/L (5-15); Carbon Dioxide 28 mmol/L (22.0-30.0); Creatinine Clearance Estimated 45 mL/min (50-200); Estimated Glomerular Filt Rate 29 ml/min (>60); GFR (African American) 35 ML/MIN (>60)
[2024-10-09 00:18] LABS: Blood Urea Nitrogen 95 mg/dl (9-20); Glucose 246 mg/dl (74-100)
[2024-10-09] MEDS: 0.9 % SODIUM CHLORIDE 1000ML 1,000 ML 100 ML IV ×2 (00:26→10:34)
[2024-10-09 00:37] LABS: Reflex Lactic Add Lactic Reflex
[2024-10-09 04:00] VITALS: BP 132/87; PULSE 98; RESP 16; TEMP 37; O2SAT 94; BMI 34.7
--- NOTE | 2024-10-09 05:20 | PC.NURSE ---
Pt Pt has rested well since admission and has c/o moderate to severe abdominal pain (pt treated per AUG). Pt has had 600 output since admission and has tolerated fluids well thus far. Pt denies needs when asked and has had no other acute changes to note.
[2024-10-09 05:43] LABS: POC Glucose,Bedside 131 (70-110)
[2024-10-09 08:00] VITALS: BP 130/71; PULSE 90; RESP 18; TEMP 36.9; O2SAT 95
--- NOTE | 2024-10-09 08:36 | HMH.PHAINT1 ---
Pharmacy Intervention Comments: MEDICATION RECONCILIATION COMPLETED ON PATIENT USING EXTERNAL FILL HISTORY FROM PHARMACY. -LEANNE ELLIOTT, ERAND
[2024-10-09 08:44] LABS: Basophils % 0.2 % (0.1-2.0); Eosinophils % 0.1 % (0.1-12.0); Hematocrit 51.5 % (42.0-52.0); Hemoglobin 17.1 g/dL (14.1-18.0); Lymphocytes # 1.1 K/mm3 (0.7-4.5); Lymphocytes % 8.5 % (10-50); Mean Corpuscular HGB Conc 33.2 g/dL (31.8-35.4); Mean Corpuscular Hemoglobin 31.4 pg (27.0-31.2); Mean Corpuscular Volume 94.5 fl (80-94); Mean Platelet Volume 11.2 fl (7.4-10.4); Monocytes # 1.8 K/mm3 (0.1-1.0); Monocytes % 13.7 % (1.7-9.3); Neutrophils % 77.2 % (37.0-80.0); Nucleated Red Blood Cells # 0 10^3/uL; Nucleated Red Blood Cells % 0 %; Platelet Count 159 K/mm3 (142-424); Red Blood Count 5.45 M/mm3 (4.60-6.20); Red Cell Distribution Width-SD 45.5 fL
[2024-10-09 08:50] LABS: Chloride 100 mmol/L (98-107); Potassium 4.6 mmoL/L (3.5-5.1); Sodium 136 mmol/L (136-145)
[2024-10-09 08:53] LABS: Anion Gap 13.6 mEq/L (5-15); Carbon Dioxide 27 mmol/L (22.0-30.0); Creatinine Clearance Estimated 49 mL/min (50-200); Estimated Glomerular Filt Rate 32 ml/min (>60); GFR (African American) 39 ML/MIN (>60); Lipase 64 U/L (23-300)
[2024-10-09] MEDS: ISOSORBIDE MONO 60MG TAB.ER.24H 60 MG PO (08:53)
[2024-10-09] MEDS: CLOPIDOGREL 75MG TAB 75 MG PO (08:53)
[2024-10-09] MEDS: PANTOPRAZOLE 40MG VIAL 40 MG IV ×2 (08:53→21:02)
[2024-10-09] MEDS: SODIUM CHLORIDE 0.9% 10ML VIAL 10 ML IV ×2 (08:53→21:02)
[2024-10-09] MEDS: LISINOPRIL 5MG TABLET 5 MG PO (08:53)
[2024-10-09 08:54] LABS: Calcium 9.8 mg/dl (8.4-10.2); Glucose 150 mg/dl (74-100); Magnesium 2.6 mg/dl (1.6-2.3)
[2024-10-09 08:55] LABS: Lactic Acid 2.4 mmol/L (0.7-2.1)
[2024-10-09 08:56] LABS: Blood Urea Nitrogen 87 mg/dl (9-20)
[2024-10-09 08:59] LABS: MANUAL DIFFERENTIAL MANUAL DIFFERENTIAL (MANUAL DIFF)
[2024-10-09] MEDS: METOPROLOL TARTRATE 25MG TABLET 25 MG PO ×2 (08:59→21:02)
[2024-10-09 09:29] LABS: Lymphocytes % 11 % (10-50); Monocytes % 4 % (2-9); Neutrophils % 85 % (42-76); Platelet Estimate Normal; RBC Morphology Normal; Total Cells Counted 100
--- NOTE | 2024-10-09 10:26 | P.PN_ITS ---
Subjective *Date: 10/09/24 *Time: 17:00 Interval history: Feeling marginally better this morning. Wants to try to eat. Denies nausea or vomiting. Still having some abdominal pain. Stable on room air. Afebrile Medical Exam Vital signs and Labs for Last 24 Hours: Vital Signs Temp Pulse Pulse Resp BP BP Pulse Ox 10/09/24 09:00 10/09/24 08:00 10/09/24 08:00 98.4 F 90 18 130/71 95 10/09/24 06:35 10/09/24 05:00 10/09/24 04:00 98.6 F 98 H 16 132/87 94 L 10/09/24 03:00 10/09/24 01:00 10/08/24 23:10 98.9 F 76 16 149/90 H 95 10/08/24 23:00 10/08/24 22:58 98.1 F 88 18 142/76 H 10/08/24 22:19 10/08/24 21:30 90 140/61 90 L 10/08/24 21:15 87 143/72 H 92 L 10/08/24 20:32 81 148/78 H 99 10/08/24 20:00 94 H 158/92 H 96 10/08/24 19:30 84 147/90 H 93 L 10/08/24 19:08 97.6 F 106 H 18 128/93 H 94 L O2 Del Method 10/09/24 09:00 Room Air 10/09/24 08:00 Room Air 10/09/24 08:00 10/09/24 06:35 Room Air 10/09/24 05:00 Room Air 10/09/24 04:00 Room Air 10/09/24 03:00 Room Air 10/09/24 01:00 Room Air 10/08/24 23:10 Room Air 10/08/24 23:00 Room Air 10/08/24 22:58 Room Air 10/08/24 22:19 Room Air 10/08/24 21:30 10/08/24 21:15 10/08/24 20:32 10/08/24 20:00 10/08/24 19:30 10/08/24 19:08 Room Air Intake and Output 10/08/24 10/09/24 10/09/24 23:59 07:59 15:59 Intake Total 450 / 1290 840 / 1290 Output Total 600 / 600 Balance -150 / 690 840 / 690 Intake: Intake, Total IV Amount 450 / 1290 840 / 1290 0.9 % Sodium Chloride 1000ML 1, 840 / 840 000 ml @ 100 mls/hr IV .Q10H YADY Rx#:[id number] 0.9 % Sodium Chloride 1000ML 1, 450 / 450 000 ml @ 999 mls/hr IV .Q1H1M ONE Rx#:[id number] Output: Output, Urine Amount 600 / 600 Other: Number of Unmeasured Voids 0 Weight 94.755 kg 94.71 kg Patient Weight 10/09/24 23:59 Weight 94.71 kg Laboratory Results - last 24 hr 10/08/24 18:28: Procalcitonin 0.135 10/08/24 19:28: WBC 14.7 H, RBC 5.62, Hgb 17.5, Hct 50.8, MCV 90.4, MCH 31.1, MCHC 34.4, RDW 13.0, Plt Count 233, MPV 10.7 H, Neut % (Auto) 83.9 H, Lymph % (Auto) 5.6 L, [place] % (Auto) 10.0 H, Eos % (Auto) 0.0 L, Baso % (Auto) 0.2, Neut # (Auto) 12.3 H, Lymph # (Auto) 0.8, [place] # (Auto) 1.5 H, Eos # (Auto) 0.0, Baso # (Auto) 0.0, Sodium 132 L, Potassium 4.3, Chloride 90 L, Carbon Dioxide 28, Anion Gap 18.3 H, BUN 98 H, Creatinine 2.50 H, Estimated Creat Clear 42, Estimated GFR 26 L, Est GFR ( Amer) 32 L, Glucose 334 H, Calcium 10.6 H, Total Bilirubin 1.5 H, AST 38, ALT 34, Alkaline Phosphatase 79, Total Protein 8.4 H D, Albumin 5.3 H, Globulin 3.1, Albumin/Globulin Ratio 1.7, Lipase 49 10/08/24 20:31: Lactate 2.3 H 10/08/24 21:23: Urine Color Yellow, Urine Appearance Clear, Urine pH 6.0, Ur Specific [place] 1.020, Urine Protein Trace, Urine Glucose (UA) 3+, Urine Ketones Negative, Urine Blood 1+ A, Urine Nitrate Negative, Urine Bilirubin Negative, Urine Urobilinogen 0.2, Ur Leukocyte Esterase Negative, Urine RBC 5- 10, Urine WBC Occasional, Ur Squamous Epith Cells 3-5, Urine Bacteria Trace 10/08/24 22:15: VBG pH 7.39, VBG pCO2 45.0, VBG pO2 35.8, VBG HCO3 26.8, VBG Total CO2 28.2 H, VBG O2 Saturation 64.1, VBG Base Excess 1.9, VBG Lactic Acid 2.7 H 10/08/24 23:45: POC Glucose 292 H, Lactate 2.3 H 10/09/24 00:00: Sodium 135 L, Potassium 4.8, Chloride 95 L, Carbon Dioxide 28, Anion Gap 16.8 H, BUN 95 H, Creatinine 2.30 H, Estimated Creat Clear 45, Estimated GFR 29 L, Est GFR ( Amer) 35 L, Glucose 246 H D, Calcium 10.0 10/09/24 05:06: POC Glucose 131 H 10/09/24 08:25: WBC 13.0 H, RBC 5.45, Hgb 17.1, Hct 51.5, MCV 94.5 H, MCH 31.4 H , MCHC 33.2, RDW 13.0, Plt Count 159 D, MPV 11.2 H, Neut % (Auto) 77.2, Lymph % (Auto) 8.5 L, [place] % (Auto) 13.7 H, Eos % (Auto) 0.1, Baso % (Auto) 0.2, Neut # (Auto) 10.0 H, Lymph # (Auto) 1.1, [place] # (Auto) 1.8 H, Eos # (Auto) 0.0, Baso # (Auto) 0.0, Total Counted 100, Neutrophils % (Manual) 85 H, Lymphocytes % (Manual) 11, Monocytes % (Manual) 4, Platelet Estimate Normal, RBC Morphology Normal, Sodium 136, Potassium 4.6, Chloride 100, Carbon Dioxide 27, Anion Gap 13.6, BUN 87 H, Creatinine 2.10 H, Estimated Creat Clear 49, Estimated GFR 32 L, Est GFR ( Amer) 39 L, Glucose 150 H D, Lactate 2.4 H, Calcium 9.8, Magnesium 2.6 H, Lipase 64 I & O for Labs for Last 24 Hours: Intake & Output 10/06/24 10/07/24 10/08/24 10/09/24 23:59 23:59 23:59 23:59 Intake Total 1290 / 1290 Output Total 600 / 600 Balance 690 / 690 Weight 94.755 kg 94.71 kg Constitutional: Present no acute distress, obese, chronically ill appearing and cooperative Head: Present atraumatic and normocephalic Respiratory: Present normal respiratory effort; Absent rhonchi, wheezes or crackles Cardiac: Present Reg Rate and Rhythm Comment:: Chest tender to palpation left pectoralis, reproduces pain that he complains of GI: Present soft, tenderness (Nonfocal) and normal bowel sounds; Absent distention Extremities: Present normal inspection and full ROM Skin: Present intact; Absent erythema Neuro: Present Grossly Intact, alert, awake, oriented x 3 and moves all extremities Assessment and Plan *Assessment and plan (1) TISHA (acute kidney injury): Status: Acute Category: Medical Code(s): N17.9 - Acute kidney failure, unspecified (2) Type II diabetes mellitus: Status: Acute Qualifiers: Chronic kidney disease stage: stage 3 (moderate) Chronic kidney disease stage 3 subtype: stage 3a (GFR 45-59) Diabetes mellitus complication detail: with chronic kidney disease Diabetes mellitus complication status: with kidney complications Diabetes mellitus medical terminologist insulin use: unspecified medical terminologist insulin use status Qualified Code(s): E11.22 - Type 2 diabetes mellitus with diabetic chronic kidney disease; N18.31 - Chronic kidney disease, stage 3a Category: Medical Code(s): E11.9 - Type 2 diabetes mellitus without complications (3) Hyperglycemia: Status: Acute Category: Medical Code(s): R73.9 - Hyperglycemia, unspecified (4) High anion gap: Status: Acute Category: Medical Code(s): E87.8 - Other disorders of electrolyte and fluid balance, not elsewhere classified (5) Nausea & vomiting: Status: Acute Category: Medical Code(s): R11.2 - Nausea with vomiting, unspecified Plan 63-year-old male with CKD admitted for abdominal pain, dehydration, TISHA. Showing some improvement with fluid resuscitation. Advancing diet today. Abdominal pain doing somewhat better. Monitoring kidney function. Problems addressed as follows #TISHA - Likely prerenal in the setting of dehydration/nausea vomiting - Nausea improving. Creatinine improved to 2.1 on morning labs, BUN 87. Potassium 4.6 with magnesium 2.6. Repeat BMP ordered for the evening. Repeat CBC, CMP, magnesium ordered for the - Discontinue IV fluids #T2DM with hyperglycemia - A1c pending. Most recent A1c from May uncontrolled at 11 - Continue fingersticks ACHS with sliding scale insulin. - Glucose elevated at 150 on morning labs. Anion gap closed on morning labs. - Continue insulin glargine 35 units nightly, sliding scale insulin and fingersticks ACHS. #CAD/HTN - Resume home lisinopril 5 mg daily, metoprolol tartrate 25 mg twice daily, isosorbide mononitrate 60 mg daily, Plavix 75 mg daily, Lipitor 40 mg nightly. #High anion gap #Lactic acidosis Anion gap of 18 with a CO2 of 28 on presentation. No ketones noted in urine. Likely element of starvation ketosis. Resolved on morning labs. Anion gap closed #Nausea vomiting #Abdominal pain No gross abnormalities on Noncon CT of the abdomen Would repeat contrasted CT in a.m. if GFR improves Continue maintenance IV fluids, antiemetics #Esophagitis Continue PPI Full code Diabetic diet Heparin 5000 units 3 times daily
[2024-10-09 11:31] LABS: POC Glucose,Bedside 192 (70-110)
[2024-10-09 12:00] VITALS: BP 97/59; PULSE 95; RESP 14; TEMP 36.7; O2SAT 97
[2024-10-09 16:00] VITALS: BP 103/50; PULSE 89; RESP 22; TEMP 36.8; O2SAT 91
--- NOTE | 2024-10-09 16:19 | PC.NURSE ---
pt resting supine in bed with family at bedside. fluids infusing per mar. treated for nausea and pain per mar with resolution of symptoms. pt advanced to full liquid diet and tolerating well. no needs at this time. call light within reach.
[2024-10-09 18:29] LABS: Albumin Level 4.1 g/dl (3.5-5.0); Chloride 102 mmol/L (98-107); Potassium 4.2 mmoL/L (3.5-5.1); Sodium 136 mmol/L (136-145)
[2024-10-09 18:32] LABS: Alanine Aminotransferase 20 U/L (12-78); Albumin/Globulin Ratio 1.6 (1.1-1.8); Alkaline Phosphatase 63 U/L (38-126); Anion Gap 12.2 mEq/L (5-15); Aspartate Amino Transferase 26 U/L (17-59); Bilirubin,Total 1.5 mg/dl (0.2-1.3); Blood Urea Nitrogen 66 mg/dl (9-20); Carbon Dioxide 26 mmol/L (22.0-30.0); Creatinine Clearance Estimated 58 mL/min (50-200); Estimated Glomerular Filt Rate 39 ml/min (>60); GFR (African American) 47 ML/MIN (>60); Globulin 2.6 g/dL (1.3-3.2); Total Protein,Serum 6.7 g/dl (6.3-8.2)
[2024-10-09 18:33] LABS: Glucose 173 mg/dl (74-100)
[2024-10-09 18:51] LABS: Hemoglobin A1C 6.9 % (4.0-6.0)
[2024-10-09 20:00] VITALS: BP 110/56; PULSE 87; RESP 16; TEMP 37.1; O2SAT 97
[2024-10-09] MEDS: ATORVASTATIN 40MG TABLET 40 MG PO (21:01)
[2024-10-09] MEDS: HEPARIN SODIUM 5,000 UNIT/ML VIAL 5000 UNIT SUBCUT (21:01)
[2024-10-09] MEDS: FAMOTIDINE 20MG TABLET 20 MG PO (21:01)
[2024-10-09] MEDS: INSULIN GLARGINE 100 UNITS/ML 3ML FLEXPEN 35 UNIT SUBCUT (21:02)
[2024-10-09] MEDS: humaLOG 100 UNITS/ML 10ML VIAL (SSI) SUBCUT (21:03)
[2024-10-09 21:56] LABS: POC Glucose,Bedside 169 (70-110)
[2024-10-10] VITALS: BP 107/72; PULSE 85; RESP 20; TEMP 37.7; O2SAT 96
[2024-10-10] MEDS: PATIENT'S OWN HOME MEDICATION (Oxycodone 10 mg tablet) 10 EACH PO (02:07)
[2024-10-10 04:00] VITALS: BP 115/57; PULSE 75; RESP 14; TEMP 36.4; O2SAT 97; BMI 35.2
--- NOTE | 2024-10-10 06:20 | PC.NURSE ---
Pt has c/o moderate to severe abdominal pain and was treated per AUG. Pt has had no acute changes to note
[2024-10-10 07:39] LABS: Basophils % 0.3 % (0.1-2.0); Eosinophils % 0.3 % (0.1-12.0); Hematocrit 44.1 % (42.0-52.0); Lymphocytes # 1.1 K/mm3 (0.7-4.5); Lymphocytes % 15.9 % (10-50); Mean Corpuscular HGB Conc 33.6 g/dL (31.8-35.4); Mean Corpuscular Hemoglobin 31.3 pg (27.0-31.2); Mean Corpuscular Volume 93.2 fl (80-94); Mean Platelet Volume 10.6 fl (7.4-10.4); Monocytes # 0.9 K/mm3 (0.1-1.0); Monocytes % 12.7 % (1.7-9.3); Neutrophils # 5.1 K/mm3 (1.8-7.8); Neutrophils % 70.5 % (37.0-80.0); Nucleated Red Blood Cells # 0 10^3/uL; Nucleated Red Blood Cells % 0 %; Platelet Count 202 K/mm3 (142-424); Red Blood Count 4.73 M/mm3 (4.60-6.20); Red Cell Distribution Width 12.7 % (11.5-17.5); Red Cell Distribution Width-SD 43.8 fL; White Blood Count 7.2 K/mm3 (4.8-10.8)
[2024-10-10 07:47] LABS: Albumin Level 4.2 g/dl (3.5-5.0); Chloride 104 mmol/L (98-107); Hemoglobin 14.9 g/dL (14.1-18.0); Potassium 4.1 mmoL/L (3.5-5.1); Sodium 134 mmol/L (136-145)
[2024-10-10 07:49] LABS: Blood Urea Nitrogen 50 mg/dl (9-20); Creatinine Clearance Estimated 66 mL/min (50-200); Estimated Glomerular Filt Rate 44 ml/min (>60); GFR (African American) 53 ML/MIN (>60)
[2024-10-10 07:50] LABS: Alanine Aminotransferase 21 U/L (12-78); Albumin/Globulin Ratio 1.6 (1.1-1.8); Alkaline Phosphatase 63 U/L (38-126); Anion Gap 7.1 mEq/L (5-15); Aspartate Amino Transferase 30 U/L (17-59); Bilirubin,Total 1.8 mg/dl (0.2-1.3); Calcium 9.2 mg/dl (8.4-10.2); Carbon Dioxide 27 mmol/L (22.0-30.0); Globulin 2.6 g/dL (1.3-3.2); Glucose 138 mg/dl (74-100); Magnesium 2.6 mg/dl (1.6-2.3); Total Protein,Serum 6.8 g/dl (6.3-8.2)
[2024-10-10 08:00] VITALS: BP 117/56; PULSE 78; RESP 16; TEMP 36.4; O2SAT 99
[2024-10-10] MEDS: OXYCODONE 5MG IMMEDIATE RELEASE TABLET 10 MG PO (08:07)
[2024-10-10] MEDS: PANTOPRAZOLE 40MG VIAL 40 MG IV (08:08)
[2024-10-10] MEDS: CLOPIDOGREL 75MG TAB 75 MG PO (08:08)
[2024-10-10] MEDS: ISOSORBIDE MONO 60MG TAB.ER.24H 60 MG PO (08:08)
[2024-10-10] MEDS: HEPARIN SODIUM 5,000 UNIT/ML VIAL 5000 UNIT SUBCUT (08:08)
[2024-10-10] MEDS: SODIUM CHLORIDE 0.9% 10ML VIAL 10 ML IV (08:09)
[2024-10-10] MEDS: METOPROLOL TARTRATE 25MG TABLET 25 MG PO (08:09)
[2024-10-10] MEDS: LISINOPRIL 5MG TABLET 5 MG PO (08:09)
[2024-10-10 08:12] VITALS: BP 127/56; PULSE 82
--- NOTE | 2024-10-10 08:22 | P.DS_ITS ---
General Admission date:: 10/08/24 Discharge date: 10/10/24 HPI HPI HPI: This is a 63-year-old male with past medical history of anxiety and depression, T2DM, NSCLC, COPD, chronic pancreatitis, CKD who presents emergency department today with complaints of abdominal pain vomiting. Reports diffuse abdominal pain since with poor p.o. intake. States that he has not had his Lantus in 2 nights because he has not been intaking any food. He reports abdominal pain is diffuse in nature. Feels bloated. Denies any fever. Endorses several episodes of vomiting but no diarrhea. Denies any cough, fever, congestion. Emergency department workup notable for elevated creatinine of 2.5 with a baseline of around 1.2. White blood cell count of 14. Anion gap of 18. Glucose of 334. Lactic of 2.3. CT imaging with indistinct pancreatic head mass or complex cystic lesion. Distal esophageal wall thickening, mild bilateral perinephric edema. Urinalysis negative. Given continued nausea vomiting, and TISHA, he will be admitted to the hospital service Hospital Course Hospital Course Hospital Course: 63-year-old male with CKD admitted for abdominal pain, dehydration, TISHA. Showed improvement with fluid resuscitation. Able to advance diet. Kidney function back to normal. No nausea or vomiting for 24 hours. Stable to discharge home. Problems addressed as follows: #TISHA - Likely prerenal in the setting of dehydration/nausea vomiting. Nausea has resolved. Elevated creatinine normalized by morning of discharge. BUN dropped from 90s to 50. Creatinine 1.6. Eventually back to patient's baseline. Tolerating p.o. liquids. Electrolytes stable with magnesium 2.6, potassium 4.1. Encourage oral hydration. Resume home medications. #T2DM with hyperglycemia - A1c better controlled at 6.9, at goal. Treated with fingersticks and sliding scale insulin during admission. Glucose 138 on morning of discharge. Resume home regimen at discharge including empagliflozin 25 mg daily, insulin glargine 35 units daily, lispro per sliding scale. #CAD/HTN - Resume home lisinopril 5 mg daily, metoprolol tartrate 25 mg twice daily, isosorbide mononitrate 60 mg daily, Plavix 75 mg daily, Lipitor 40 mg nightly. #High anion gap #Lactic acidosis Anion gap of 18 with a CO2 of 28 on presentation. No ketones noted in urine. Likely element of starvation ketosis. Resolved with resuscitation and improvement in kidney function. #Nausea vomiting #Abdominal pain No gross abnormalities on Non-con CT of the abdomen. Treated with antiemetics. Resolved before discharge #Esophagitis: Continue PPI Exam Data for Last 24 hours Vital signs and Labs for Last 24 Hours: Temp Pulse Resp BP Pulse Ox O2 Del Method 97.5 F L 82 14 127/56 L 97 Room Air 10/10/24 04:00 10/10/24 08:12 10/10/24 04:00 10/10/24 08:12 10/10/24 04:00 10/10/24 06:41 Laboratory Results - last 24 hr 10/09/24 08:25: WBC 13.0 H, RBC 5.45, Hgb 17.1, Hct 51.5, MCV 94.5 H, MCH 31.4 H , MCHC 33.2, RDW 13.0, Plt Count 159 D, MPV 11.2 H, Neut % (Auto) 77.2, Lymph % (Auto) 8.5 L, [place] % (Auto) 13.7 H, Eos % (Auto) 0.1, Baso % (Auto) 0.2, Neut # (Auto) 10.0 H, Lymph # (Auto) 1.1, [place] # (Auto) 1.8 H, Eos # (Auto) 0.0, Baso # (Auto) 0.0, Total Counted 100, Neutrophils % (Manual) 85 H, Lymphocytes % (Manual) 11, Monocytes % (Manual) 4, Platelet Estimate Normal, RBC Morphology Normal, Sodium 136, Potassium 4.6, Chloride 100, Carbon Dioxide 27, Anion Gap 13.6, BUN 87 H, Creatinine 2.10 H, Estimated Creat Clear 49, Estimated GFR 32 L, Est GFR ( Amer) 39 L, Glucose 150 H D, Lactate 2.4 H, Calcium 9.8, Magnesium 2.6 H, Lipase 64 10/09/24 10:33: POC Glucose 192 H 10/09/24 18:00: Sodium 136, Potassium 4.2, Chloride 102, Carbon Dioxide 26, Anion Gap 12.2, BUN 66 H, Creatinine 1.80 H, Estimated Creat Clear 58, Estimated GFR 39 L, Est GFR ( Amer) 47 L D, Glucose 173 H, Hemoglobin A1c 6.9 H, Calcium 9.0, Total Bilirubin 1.5 H, AST 26 D, ALT 20 D, Alkaline Phosphatase 63, Total Protein 6.7, Albumin 4.1 D, Globulin 2.6, Albumin/Globulin Ratio 1.6 10/09/24 20:55: POC Glucose 169 H 10/10/24 06:54: WBC 7.2 D, RBC 4.73, Hgb 14.9 D, Hct 44.1, MCV 93.2, MCH 31.3 H, MCHC 33.6, RDW 12.7, Plt Count 202 D, MPV 10.6 H, Neut % (Auto) 70.5, Lymph % (Auto) 15.9, [place] % (Auto) 12.7 H, Eos % (Auto) 0.3, Baso % (Auto) 0.3, Neut # (Auto) 5.1, Lymph # (Auto) 1.1, [place] # (Auto) 0.9, Eos # (Auto) 0.0, Baso # (Auto) 0.0, Sodium 134 L, Potassium 4.1, Chloride 104, Carbon Dioxide 27, Anion Gap 7.1, BUN 50 H, Creatinine 1.60 H, Estimated Creat Clear 66, Estimated GFR 44 L, Est GFR ( Amer) 53 L, Glucose 138 H D, Calcium 9.2, Magnesium 2.6 H, Total Bilirubin 1.8 H, AST 30, ALT 21, Alkaline Phosphatase 63, Total Protein 6.8, Albumin 4.2, Globulin 2.6, Albumin/Globulin Ratio 1.6 I & O for Last 24 hours: Intake & Output 10/07/24 10/08/24 10/09/24 10/10/24 23:59 23:59 23:59 23:59 Intake Total 2249 / 2250 Output Total 2049 / 2349 1100 / 1100 Balance 200 / -100 -1100 / -1100 Weight 94.755 kg 94.71 kg 95.71 kg Microbiology Reports for the Last 24 Hours: Microbiology 10/08/24 21:10 Blood Blood Culture - Preliminary NO GROWTH AFTER 24 HOURS 10/08/24 20:31 Blood Blood Culture - Preliminary NO GROWTH AFTER 24 HOURS Constitutional Constitutional: no acute distress, obese and chronically ill appearing *Routine HEENT Exam Head: Present normocephalic Eye: Present EOMI and PERRL ENT: Present mucous membranes moist *Routine Neck Exam Neck: Present supple; Absent lymphadenopathy Routine Chest/Breast/Axilla Exam Chest wall: Absent tenderness *Routine Respiratory Exam Respiratory: Present CTA bilaterally; Absent respiratory distress, rhonchi, wheezes or crackles *Routine Cardiovascular Exam Cardiovascular: Present RRR *Routine Abdominal Exam Abdominal: Present soft and normoactive bowel sounds; Absent tenderness *Routine Rectal Exam Patient deferred: visual exam *Routine Exam Patient deferred: penile exam *Routine Extremities Exam Extremities: Absent cyanosis, clubbing or edema *Routine Skin Exam Skin: Present warm; Absent rash *Routine Neurological Exam Neurological: Present alert, oriented X3 and moving all extremities; Absent altered mental status Results Data Completed and Pending Labs on day of discharge: Labs from last 24 hours 10/10/24 10/09/24 10/09/24 06:54 20:55 18:00 WBC 7.2 D RBC 4.73 Hgb 14.9 D Hct 44.1 MCV 93.2 MCH 31.3 H MCHC 33.6 RDW 12.7 Plt Count 202 D MPV 10.6 H Neut % (Auto) 70.5 Lymph % (Auto) 15.9 [place] % (Auto) 12.7 H Eos % (Auto) 0.3 Baso % (Auto) 0.3 Neut # (Auto) 5.1 Lymph # (Auto) 1.1 [place] # (Auto) 0.9 Eos # (Auto) 0.0 Baso # (Auto) 0.0 Total Counted Neutrophils % (Manual) Lymphocytes % (Manual) Monocytes % (Manual) Platelet Estimate RBC Morphology Sodium 134 L 136 Potassium 4.1 4.2 Chloride 104 102 Carbon Dioxide 27 26 Anion Gap 7.1 12.2 BUN 50 H 66 H Creatinine 1.60 H 1.80 H Estimated Creat Clear 66 58 Estimated GFR 44 L 39 L Est GFR ( Amer) 53 L 47 L D Glucose 138 H D 173 H POC Glucose 169 H Hemoglobin A1c 6.9 H Lactate Calcium 9.2 9.0 Magnesium 2.6 H Total Bilirubin 1.8 H 1.5 H AST 30 26 D ALT 21 20 D Alkaline Phosphatase 63 63 Total Protein 6.8 6.7 Albumin 4.2 4.1 D Globulin 2.6 2.6 Albumin/Globulin Ratio 1.6 1.6 Lipase 10/09/24 10/09/24 10:33 08:25 WBC 13.0 H RBC 5.45 Hgb 17.1 Hct 51.5 MCV 94.5 H MCH 31.4 H MCHC 33.2 RDW 13.0 Plt Count 159 D MPV 11.2 H Neut % (Auto) 77.2 Lymph % (Auto) 8.5 L [place] % (Auto) 13.7 H Eos % (Auto) 0.1 Baso % (Auto) 0.2 Neut # (Auto) 10.0 H Lymph # (Auto) 1.1 [place] # (Auto) 1.8 H Eos # (Auto) 0.0 Baso # (Auto) 0.0 Total Counted 100 Neutrophils % (Manual) 85 H Lymphocytes % (Manual) 11 Monocytes % (Manual) 4 Platelet Estimate Normal RBC Morphology Normal Sodium 136 Potassium 4.6 Chloride 100 Carbon Dioxide 27 Anion Gap 13.6 BUN 87 H Creatinine 2.10 H Estimated Creat Clear 49 Estimated GFR 32 L Est GFR ( Amer) 39 L Glucose 150 H D POC Glucose 192 H Hemoglobin A1c Lactate 2.4 H Calcium 9.8 Magnesium 2.6 H Total Bilirubin AST ALT Alkaline Phosphatase Total Protein Albumin Globulin Albumin/Globulin Ratio Lipase 64 Preliminary micro results at discharge 10/08/24 21:10 Blood Culture - Preliminary Blood NO GROWTH AFTER 24 HOURS 10/08/24 20:31 Blood Culture - Preliminary Blood NO GROWTH AFTER 24 HOURS DS: Diagnosis Discharge Diagnosis (1) TISHA (acute kidney injury): Status: Acute Code(s): N17.9 - Acute kidney failure, unspecified (2) Type II diabetes mellitus: Status: Acute Code(s): E11.9 - Type 2 diabetes mellitus without complications Qualifiers: Chronic kidney disease stage: stage 3 (moderate) Chronic kidney disease stage 3 subtype: stage 3a (GFR 45-59) Diabetes mellitus complication detail: with chronic kidney disease Diabetes mellitus complication status: with kidney complications Diabetes mellitus terminal carman insulin use: unspecified chcf insulin use status Qualified Code(s): E11.22 - Type 2 diabetes mellitus with diabetic chronic kidney disease; N18.31 - Chronic kidney disease, stage 3a (3) Hyperglycemia: Status: Acute Code(s): R73.9 - Hyperglycemia, unspecified (4) High anion gap: Status: Acute Code(s): E87.8 - Other disorders of electrolyte and fluid balance, not elsewhere classified (5) Nausea & vomiting: Status: Acute Code(s): R11.2 - Nausea with vomiting, unspecified Meds Home Medications and Allergies Home Medications ?Medication ?Instructions ?Recorded ?Confirmed ?Type oxycodone 10 mg tablet 10 mg PO TID 03/31/23 10/08/24 History rosuvastatin 40 mg tablet 40 mg PO HS 03/31/23 10/08/24 History lisinopril 5 mg tablet 5 mg PO DAILY #90 tabs 06/16/23 10/08/24 Rx metoprolol tartrate 25 mg tablet 25 mg PO BID #90 tabs 06/16/23 10/08/24 Rx famotidine 20 mg tablet 20 mg PO HS 12/07/23 10/08/24 History empagliflozin 25 mg tablet 25 mg PO DAILY 05/14/24 10/08/24 History ergocalciferol (vitamin D2) 1,250 1,250 mcg PO WEEKLY 05/14/24 10/08/24 History mcg (50,000 unit) capsule spironolactone 50 mg tablet 50 mg PO DAILY 05/14/24 10/08/24 History insulin glargine 100 unit/mL (3 35 unit (0.35 mL) SQ HS 30 days 06/01/24 10/08/24 Rx mL) subcutaneous pen (Lantus #15 mL Solostar U-100 Insulin) insulin lispro 100 unit/mL See Rx Instructions .Route 06/01/24 10/08/24 Rx subcutaneous solution (Humalog .COMPLEX #0 mL U-100 Insulin) isosorbide mononitrate 60 mg 60 mg PO DAILY #90 tabs 06/23/24 10/08/24 Rx tablet,extended release 24 hr clopidogrel 75 mg tablet 75 mg PO DAILY #90 tabs 06/29/24 10/08/24 Rx gabapentin 800 mg tablet 800 mg PO TID 10/08/24 10/08/24 History albuterol sulfate 90 mcg/actuation 2 inh inhalation QIDP PRN 10/09/24 10/09/24 History aerosol inhaler shortness of breath or wheezing sennosides 8.6 mg-docusate sodium 1 tab-cap PO BID PRN constipation 10/10/24 Rx 50 mg tablet (2-in-1 Laxative) #60 tabs New Prescriptions to Start Prescriptions: sennosides-docusate sodium [2-in-1 Laxative] Konstantin Dawn Allergies Allergy/AdvReac Type Severity Reaction Status Date / Time naproxen (NAPROXEN) AdvReac Mild NA-NAUSEA/V Verified 08/03/24 10:34 OMITING tramadol (TRAMADOL) AdvReac Mild NA-NAUSEA Verified 08/03/24 10:34 Discharge Plan Disposition Patient Disposition: Home, Self-Care Condition: Fair Follow up Plan Follow up with: Fidel St APRN [Primary Care Provider] - 10/18/24 12:00 pm Prescriptions/Medication Reconciliation: New sennosides-docusate sodium [2-in-1 Laxative] 8.6-50 mg tablet 1 tab-cap PO BID PRN (Reason: constipation) Qty: 60 0RF Continued rosuvastatin 40 mg tablet 40 mg PO HS oxycodone 10 mg tablet 10 mg PO TID lisinopril 5 mg tablet 5 mg PO DAILY Qty: 90 0RF metoprolol tartrate 25 mg tablet 25 mg PO BID Qty: 90 0RF famotidine 20 mg tablet 20 mg PO HS isosorbide mononitrate 60 mg tablet extended release 24 hr 60 mg PO DAILY Qty: 90 1RF clopidogrel 75 mg tablet 75 mg PO DAILY Qty: 90 1RF insulin glargine [Lantus Solostar U-100 Insulin] 100 unit/mL (3 mL) Insulin Pen 35 unit SQ HS 30 Days Qty: 15 0RF insulin lispro [Humalog U-100 Insulin] 100 unit/mL Solution See Rx Instructions .ROUTE .COMPLEX Qty: 0 0RF Rx Instructions: per home sliding scale regimen ergocalciferol (vitamin D2) 1,250 mcg (50,000 unit) capsule 1,250 mcg PO WEEKLY spironolactone 50 mg tablet 50 mg PO DAILY empagliflozin 25 mg tablet 25 mg PO DAILY gabapentin 800 mg tablet 800 mg PO TID albuterol sulfate 90 mcg/actuation HFA aerosol inhaler 2 inh inhalation QIDP PRN (Reason: shortness of breath or wheezing) Problem Reconciliation Problems Reviewed?: Yes Patient Discharge Instructions ACTIVITY: Continue current activity DIET: continue same diet and advance to your usual diet Patient Instructions: Acute Kidney Injury, DI for Hyperglycemia -- Adult, DI for Nausea -- Adult, DI for Vomiting -- Adult Print Language: Upper Sorbian Providers Primary Care Provider: Fidel St Admit Provider: Konstantin Dawn Attending Provider: Konstantin Dawn
[2024-10-11 05:34] LABS: POC Glucose,Bedside 135 (70-110)
--- NOTE | 2024-10-11 10:21 | SW/DCPLANNER ---
Spoke with patient on the phone. Patient stated that he is alright and doesnt have an appetite due to constipation. Patient stated that he is aware of his upcoming appointments. Patient stated that he was able to get his medicine picked up. Patient stated that he wants to know what is going on with his health and i suggest that he needs to speak with his dr. Patient stated that he has no other concerns or questions. Hiram Everett
== END 2024-10-10 11:22 | disposition home or self-care (01) ==
LOC: ER 19:05 → 2ND 22:04
PROVIDERS: Nurse Practitioner Acute Care; Nurse Practitioner Family; Admitting Provider Internal Medicine Adolescent Medicine; Emergency Provider Student in an Organized Health Care Education/Training Program; PCP Nurse Practitioner Psychiatric/Mental Health; Visit Provider Internal Medicine Adolescent Medicine
DX: N17.9 Acute kidney failure, unspecified (principal); E11.65 Type 2 diabetes mellitus with hyperglycemia; E87.21 Acute metabolic acidosis; K86.1 Other chronic pancreatitis; R10.9 Unspecified abdominal pain; F32.A Depression, unspecified; E66.9 Obesity, unspecified; R11.2 Nausea with vomiting, unspecified; E11.22 Type 2 diabetes mellitus with diabetic chronic kidney disease; I12.9 Hypertensive chronic kidney disease with stage 1 through stage 4 chronic kidney disease, or unspecified chronic kidney disease; N18.31 Chronic kidney disease, stage 3a; E86.0 Dehydration; F41.9 Anxiety disorder, unspecified; I25.10 Atherosclerotic heart disease of native coronary artery without angina pectoris; K20.90 Esophagitis, unspecified without bleeding; J44.9 Chronic obstructive pulmonary disease, unspecified; G89.29 Other chronic pain; M51.372 Other intervertebral disc degeneration, lumbosacral region with discogenic back pain and lower extremity pain; M50.122 Cervical disc disorder at C5-C6 level with radiculopathy; Z79.4 Long term (current) use of insulin; Z85.110 Personal history of malignant carcinoid tumor of bronchus and lung; Z68.35 Body mass index [BMI] 35.0-35.9, adult; Z88.6 Allergy status to analgesic agent; Z88.5 Allergy status to narcotic agent; Z79.891 Long term (current) use of opiate analgesic; Z79.02 Long term (current) use of antithrombotics/antiplatelets; Z87.891 Personal history of nicotine dependence; Z91.85 Personal history of military service; Z79.899 Other long term (current) drug therapy
CPT/HCPCS: 36415; 74176; 80048; 80053; 81001; 82803; 82962; 83036; 83605; 83690; 83735; 84145; 85007; 85025; 87040; 99291; G0378; J1644; J2270; J2405; J2470; J7030

== ENCOUNTER 2024-11-09 20:25 | Emergency (ER) | payer OTHER, SELFPAY ==
[2024-11-09 20:29] VITALS: BP 106/70; PULSE 77; RESP 18; TEMP 36.4; O2SAT 97; BMI 37.2
[2024-11-09 20:49] VITALS: BP 130/77; PULSE 91; O2SAT 98
--- NOTE | 2024-11-09 20:58 | CT_ITS ---
PROCEDURE INFORMATION: Exam: CT Abdomen And Pelvis With Contrast Exam date and time: 11/09/2024 9:40 PM Age: 63 years old Clinical indication: Abdominal pain; Additional info: N/v/d diffuse abd tenderness TECHNIQUE: Imaging protocol: Computed tomography of the abdomen and pelvis with contrast. Radiation optimization: All CT scans at this facility use at least one of these dose optimization techniques: automated exposure control; mA and/or kV adjustment per patient size (includes targeted exams where dose is matched to clinical indication); or iterative reconstruction. Contrast material: ISOVUE; Contrast volume: 75 ml; Contrast route: IV; COMPARISON: CT ABDOMEN PELVIS WO CON 10/08/2024 8:07 PM FINDINGS: Lungs: Bandlike atelectasis of the left lung base. Liver: Normal. No mass. Gallbladder and biliary ducts: Normal. No calcified stones. No ductal dilation. Pancreas: Incompletely characterized 3.3 x 2.5 x 1.5 cm cystic lesion in the head of the pancreas. The pancreatic duct is nondilated. Spleen: Normal. No splenomegaly. Adrenal glands: Normal. No mass. Kidneys and ureters: Normal. No hydronephrosis. Stomach and bowel: Unremarkable. No obstruction. No mucosal thickening. Appendix: No evidence of appendicitis. Intraperitoneal space: Unremarkable. No free air. No significant fluid collection. Vasculature: Unremarkable. No abdominal aortic aneurysm. Lymph nodes: Unremarkable. No enlarged lymph nodes. Urinary bladder: Unremarkable as visualized. Reproductive: Unremarkable as visualized. Bones/joints: Unremarkable. No acute fracture. Soft tissues: Unremarkable. IMPRESSION: 1. No acute findings. 2. Incompletely characterized 3.3 x 2.5 x 1.5 cm cystic lesion in the head of the pancreas. MRCP recommended for further evaluation.
[2024-11-09 21:00] VITALS: BP 131/73; PULSE 89; O2SAT 96
[2024-11-09 21:04] LABS: Microscopic, Urine URINE MICROSCOPIC (MICROSCOPIC)
[2024-11-09] MEDS: ONDANSETRON 4MG/2ML VIAL 4 MG IV (21:05)
[2024-11-09] MEDS: LACTATED RINGERS 1000ML 1,000 ML 999 ML IV (21:05)
[2024-11-09] MEDS: MORPHINE 4MG/ML SYRINGE 4 MG IV (21:05)
[2024-11-09 21:07] LABS: Appearance,Urine CLEAR (Clear); Blood, Urine Negative (Negative); Color,Urine YELLOW (Yellow); Glucose,Urine (UA) 3+ (Negative); Ketones,Urine 3+ (Negative); Leukocyte Esterase,Urine Negative (Negative); Nitrate,Urine Negative (Negative); Protein,Urine TRACE (Negative); Specific Gravity, Urine 1.025 (1.005-1.030); Urobilinogen,Urine 0.2 EU/dl (0.2)
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
[2024-11-09 21:12] LABS: VBG Base Excess -5.3 mmol/L (-2.4-2.3); VBG HCO3 19.9 mmol/L (23-30); VBG Oxygen Saturation 73.8 % (50-70); VBG PCO2 35.1 mmol/L (35-51); VBG PH 7.37 mmol/L (7.31-7.41); VBG PO2 40.1 mmol/L (28-40)
[2024-11-09 21:17] LABS: Bilirubin,Urine Negative (Negative)
[2024-11-09 21:18] LABS: Basophils % 0.4 % (0.1-2.0); Hematocrit 41.6 % (42.0-52.0); Hemoglobin 14.3 g/dL (14.1-18.0); Immature Granulocytes # 0.02 10^3uL; Immature Granulocytes % 0.3 %; Lymphocytes # 0.9 K/mm3 (0.7-4.5); Lymphocytes % 12.1 % (10-50); Mean Corpuscular HGB Conc 34.4 g/dL (31.8-35.4); Mean Corpuscular Hemoglobin 31.6 pg (27.0-31.2); Mean Corpuscular Volume 91.8 fl (80-94); Mean Platelet Volume 9.4 fl (7.4-10.4); Monocytes # 0.7 K/mm3 (0.1-1.0); Monocytes % 9.6 % (1.7-9.3); Neutrophils # 5.8 K/mm3 (1.8-7.8); Neutrophils % 77.6 % (37.0-80.0); Nucleated Red Blood Cells # 0 10^3/uL; Nucleated Red Blood Cells % 0 %; Platelet Count 296 K/mm3 (142-424); Red Blood Count 4.53 M/mm3 (4.60-6.20); Red Cell Distribution Width 13.8 % (11.5-17.5); Red Cell Distribution Width-SD 46.9 fL; White Blood Count 7.4 K/mm3 (4.8-10.8)
[2024-11-09 21:27] LABS: Alanine Aminotransferase 24 U/L (12-78); Albumin Level 4.9 g/dl (3.5-5.0); Albumin/Globulin Ratio 1.7 (1.1-1.8); Alkaline Phosphatase 55 U/L (38-126); Anion Gap 22.7 mEq/L (5-15); Aspartate Amino Transferase 43 U/L (17-59); Bilirubin,Total 2.6 mg/dl (0.2-1.3); Blood Urea Nitrogen 24 mg/dl (9-20); Calcium 9.7 mg/dl (8.4-10.2); Carbon Dioxide 21 mmol/L (22.0-30.0); Chloride 95 mmol/L (98-107); Creatinine Clearance Estimated 70 mL/min (50-200); Estimated Glomerular Filt Rate 48 ml/min (>60); GFR (African American) 58 ML/MIN (>60); Globulin 2.9 g/dL (1.3-3.2); Glucose 119 mg/dl (74-100); Lipase 29 U/L (23-300); Potassium 4.7 mmoL/L (3.5-5.1); Sodium 134 mmol/L (136-145); Total Protein,Serum 7.8 g/dl (6.3-8.2)
[2024-11-09 21:28] LABS: Magnesium 1.7 mg/dl (1.6-2.3); Phosphorous 4.2 mg/dl (2.5-4.5)
[2024-11-09 21:31] VITALS: BP 105/48; PULSE 87; O2SAT 95
[2024-11-09 21:38] LABS: RBC,Urine Occasional #/hpf (0-3); WBC,Urine Occasional #/hpf (0-3)
[2024-11-09 21:39] LABS: Bacteria,Urine 2+ /lpf; Mucus,Urine 1+ /lpf
[2024-11-09] MEDS: IOPAMIDOL-370 (76%);100ML BOTTLE 75 ML IV (21:43)
[2024-11-09] MEDS: SODIUM CHLORIDE 0.9% 10ML SYR (RAD ONLY) 10 ML IV (21:43)
[2024-11-09 21:47] LABS: Lactic Acid 1.8 mmol/L (0.7-2.1)
[2024-11-09 22:00] VITALS: BP 119/65; PULSE 85; O2SAT 97
[2024-11-09 23:15] VITALS: BP 106/51; PULSE 85; RESP 15; TEMP 36.8; O2SAT 97
[2024-11-10 01:14] LABS: Reflex Lactic Add Lactic Reflex
== END 2024-11-09 23:25 | disposition home or self-care (01) ==
PROVIDERS: Emergency Provider Student in an Organized Health Care Education/Training Program; PCP Social Worker
DX: R10.84 Generalized abdominal pain (principal); E86.0 Dehydration; R11.2 Nausea with vomiting, unspecified; E80.6 Other disorders of bilirubin metabolism; K86.2 Cyst of pancreas; N18.9 Chronic kidney disease, unspecified; Z87.891 Personal history of nicotine dependence; I12.9 Hypertensive chronic kidney disease with stage 1 through stage 4 chronic kidney disease, or unspecified chronic kidney disease; E87.1 Hypo-osmolality and hyponatremia
CPT/HCPCS: 74177; 80053; 81001; 82803; 83605; 83690; 83735; 84100; 85025; 87086; 96361; 96374; 96375; 99285; J2270; J2405; J7120; Q9967

== ENCOUNTER 2024-11-17 10:12 | Outpatient (CLI) | payer OTHER, SELFPAY ==
--- OUTSIDE RECORDS SUMMARY | 2024-09-22 11:00 | XMS_ITS | Encounter Summary ---
Author Organization Healthcare Address [address] [place] [address] Care Team Providers Care Junior Account Manager Name Role Phone Hilton Maria MD Unavailable Philip Khan MD Primary Care Provider + [phone] Reason for Visit * Reason Comments Procedure EMG * Other Medical (Routine) - Closed Specialty Diagnoses / Procedures Referred By Contac t Referred To Contact Neurology Diagnoses Numbness Procedures EMG / Nerve Conduction Study Stephanie Torres PA [address] [address] Phone: tel: fax: Referral ID Status Reason Start Date Expiration Date V isits Requested Visits Authorized [id number] Closed Specialty Services Required 06/22/2024 12/22/2025 1 1 Encounter Details Date Type Department Care Team (Late st Contact Info) Description 09/22/2024 11:00 AM EDT Procedure Visit [facility] at [facility] [address] [facility] [place] [address] Geovany Sampson MD [address] [place] [address] Numbness Social History Tobacco Use Types Packs/Day Years Used Date Smoking Tobacco: Former Cigarettes 1.5 30 1 989 - 2018 Passive Smoke Exposure: Past Smokeless Tobacco: Never Tobacco Cessation:Counseling Given: Not Answered Alcohol Use Standard Drinks/Week Comments Yes 0 (1 standard drink = 0.6 oz pur e alcohol) very rarely social. PHQ-2 Answer Date Recorded Patient Health Questionnaire-2 Score 0 09/22/2024 Sex and Gender Information Value Date Recorded Sex Assigned at Not on file Legal Sex Male 8:08 PM EDT Gender Identity Not on file Sexual Orientation Not on file documented as of this encounter Last Filed Vital Signs Vital Sign Reading Time Taken Comments Blood Pressure 104/67 09/22/2024 11:03 AM EDT Pulse 68 09/22/2024 11:03 AM EDT Temperature - - Respiratory Rate 16 09/22/2024 11:03 AM EDT Oxygen Saturation 97% 09/22/2024 11:03 AM EDT Inhaled Oxygen Concentration - - Weight 103 kg (227 lb) 09/22/2024 11:03 AM EDT Height 165.1 cm (5' 5 ) 09/22/2024 11:03 AM EDT Body Mass Index 37.77 09/22/2024 11:03 AM EDT documented in this encounter Functional Status * Over the past 2 weeks, how often have you been bothered by any of the following problems? Question Answer Date of Assessment Author Little interest or pleasure in doing things Not at all 09/22/2024 11:14 AM EDT Mary Carmen Domingo LPN Feeling down, depressed, or hopeless Not at all 09/22/2024 11:14 AM EDT Charlie Domingo LPN Patient Health Questionnaire-2 Score 0 09/22/2024 11:14 AM EDT Nii Domingo LPN * Calculated C-SSRS Risk Score (Lifetime/Recent) Answer Date of Assessment Author No Risk Indicated 09/22/2024 11:14 AM EDT Mary Carmen Sharpe LPN * If you checked off any problems on this questionnaire so far, Question Answer Date of Assessment Author How difficult have these problems made it for you to do your work, take care of things at home, or get along with other people? Not difficult at all 09/22/2024 11:14 AM EDT Jax Domingo LPN * Question Answer Date of Assessment Author 1. Wish to be (Past 1 Month) No 09/22/2024 11:14 AM EDT Charlie Domingo LPN 2. Non-Specific Active Suicidal Thoughts (Past 1 Month) No 09/22/2024 11:14 AM EDT Charlie Domingo LPN 6. Suicidal Behavior (Lifetime) No 09/22/2024 11:14 AM EDT Charlie Domingo LPN documented as of this encounter Miscellaneous Notes * Progress Notes - Geovany Sampson MD - 09/22/2024 11:00 AM EDTAssociated Order(s): EMG / Nerve Conduction Study Pre-Procedure Diagnose(s): Numbness Post-Procedure Diagnose(s): Numbness Images from the original note were not included. Patient ID: Seamus Persaud is a 63 y.o. male. Encounter Diagnosis Name Primary? Numbness EMG / Nerve Conduction Study Date/Time: 09/22/2024 11:00 AM Performed by: Geovany Sampson MD Authorized by: Stephanie Torres PA Consent: Consent obtained: Written Consent given by: Patient Risks discussed: Bleeding, infection and pain Alternatives discussed: Observation [facility] Department of Physical [place] [address] Test Date: 09/22/2024 Patient: Seamus Persaud : [id number] Physician: Geovany Sampson MD Sex: Male Height: 5' 5 Ref Phys: LUIS EDUARDO Deal ID#: [id number] Weight: 227 lbs. Resident: Alexys Ann DO Patient Complaints: Aubrey hand numbness Medications: See EHR. 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 Patient states that he has had ongoing symptoms in his left hand for years. States that he had his carpal tunnel release performed in December and his hand symptoms have only gotten worse since. States that he has numbness and tingling in fingers 1 and 2 as well as pain in his whole hand that shootsup his arm. Occasionally has some symptoms on his fingertips on the right hand. 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 DMII w/ last A1c of 7, denies thyroid disease, endorses chemo/radiation for lung cancer in 2019, now in remission. S/P L. CTR endoscopically Upper extremity exam: Inspection: no gross atrophy throughout Sensation: Decreased in entire L hand compared to R Strength: 5/5 bilateral shoulder abduction, elbow flexion/extension, wrist extension, 4/5 left finger flexion, finger abduction Reflexes: 2+ bilateral biceps/triceps/brachioradialis Negative Aggarwal's bilaterally EMG/NCS from 11-10-2023 was reviewed History from EMG/NCS from 11-10-2023 notes that he had EMG/NCS from 09-07-2017 that revealed mild R. CTS but did not have that report for my review. NCS & EMG Findings: Left median motor study revealed prolonged onset latency, normal amplitudes and decreased conduction velocity (Elbow-Wrist). The onset latency was 4.4ms on the 11-10-2023 study and 4.5ms on todays study. The CMAP amplitude was 10.6mV on the 11-10-2023 study and 9.6mV on s study. Right median motor study revealed normal onset latency, normal amplitudes and decreased conduction velocity (Elbow-Wrist). Left ulnar motor study revealed normal onset latency, normal amplitudes, normal conduction velocity(B Elbow-Wrist) and normal conduction velocity (A Elbow-B Elbow). There was a 3m/s drop in the CV across the elbow. Right ulnar motor study revealed normal onset latency, normal amplitudes, normal conduction velocity (B Elbow-Wrist) and normal conduction velocity (A Elbow-B Elbow). There was a 4m/s drop in the CV across the elbow. Left median (across palm) sensory study revealed no response (Palm), prolonged peak latency and reduced amplitude (Wrist). There was a greater than 50% drop in amplitude when compared to the right side. Right median (across palm) sensory study revealed no response (Palm), prolonged peak latency, and normal amplitude (Wrist). Left ulnar sensory study revealed prolonged peak latency and normal amplitude. Right ulnar sensory study revealed no response (Wrist). Left median/radial (dig I) comparison study revealed no response (Median), normal peak latency (Radial), and normal amplitude (Radial). Right median/radial (dig I) comparison study revealed no response (Radial), normal peak latency, and normal amplitude (Median). Concentric EMG of the left APB, FDI, and right FDI revealed normal insertional activity, no abnormal spontaneous activity, and the voluntary motor unit action potentials had increased amplitude consistent with chronic reinnervation. Concentric EMG of the right APB revealed normal insertional activity, no abnormal spontaneous activity, and the voluntary motor unit action potentials had decreased recruitment. Concentric EMG of the right triceps revealed normal insertional activity, no abnormal spontaneous activity, and the voluntary motor unit action potentials revealed increased percentage of polyphasic potentials consistent with subacute reinnervation. Concentric EMG of the left biceps, triceps, deltoid, right biceps, and deltoid revealed normal insertional activity, no abnormal spontaneous activity, and the voluntary motor unit action potentials were within normal parameters. I was present for the entire procedure, interpretation of the results and completion of the report.Physicians performed all the NCS. Dr. Ann performed the procedure. CPT Codes NCS 38097, EMG RUE 02301, EMG LUE 48885 Impression: Challenging interpretation of the data given his h/o DM, chemotherapy exposure and h/o of L. endoscopic release of the carpal tunnel. 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 No electrodiagnostic evidence of an acute cervical motor radiculopathy (C5-T1) on either side in the nerves and muscles tested. Some concern for residual vs recurrent left median entrapment neuropathy given the significant decrease of the left sensory nerve action potential amplitude ( >50% ) when compared to the right. Would consider diagnostic U/S of the left median nerve at the wrist with comparison to the right side,looking for evidence of entrapment/compression. Alexys Ann, DO Geovany Sampson MD Nerve Conduction Studies Anti Sensory Summary Table Stim Site NR Peak (ms) Norm Peak (ms) P-T Amp (??V) Norm P-T Amp Site1 Site2 Delta-P (ms) Dist (cm)Missael (m/s) Norm Missael (m/s) Left Median Acr Palm Anti Sensory (3rd Digit) 32.4 ??C Wrist 3.8 <3.7 9.0 >20 Wrist 3rd Digit 3.8 14.0 37 Palm NR <1.9 Palm 3rd Digit 7.0 Right Median Acr Palm Anti Sensory (3rd Digit) 32.5 ??C Wrist 4.0 <3.7 26.2 >20 Wrist 3rd Digit 4.0 14.0 35 Palm NR <1.9 Palm 3rd Digit 7.0 Left Ulnar Anti Sensory (5th Digit) 32.3 ??C Wrist 3.8 <3.7 22.7 >20 Wrist 5th Digit 3.8 14.0 37 Right Ulnar Anti Sensory (5th Digit) 33 ??C Wrist NR <3.7 >20 Wrist 5th Digit 14.0 Motor Summary Table Stim Site NR Onset (ms) Norm Onset (ms) O-P Amp (mV) Norm O-P Amp Site1 Site2 Delta-0 (ms) Dist (cm) Missael (m/s) Norm Missael (m/s) Left Median Motor (Abd Poll Brev) 32.3 ??C Wrist 4.5 <4.3 9.6 >4 Elbow Wrist 5.0 21.0 42 >45 Elbow 9.5 6.7 Right Median Motor (Abd Poll Brev) 32.6 ??C Wrist 4.1 <4.3 14.2 >4 Elbow Wrist 4.7 20.0 43 >45 Elbow 8.8 12.9 Left Ulnar Motor (Abd Dig Minimi) 32.2 ??C Wrist 3.0 <4.3 10.0 >2 B Elbow Wrist 3.6 18.5 51 >45 B Elbow 6.6 8.9 A Elbow B Elbow 2.9 14.0 48 >45 A Elbow 9.5 8.1 Right Ulnar Motor (Abd Dig Minimi) 32.8 ??C Wrist 3.5 <4.3 10.6 >2 B Elbow Wrist 3.7 20.0 54 >45 B Elbow 7.2 9.5 A Elbow B Elbow 2.8 14.0 50 >45 A Elbow 10.0 8.7 Comparison Summary Table Stim Site NR Peak (ms) Norm Peak (ms) P-T Amp (??V) Norm P-T Amp Site1 Site2 Delta-P (ms) Norm Delta (ms) Left Median/Radial Dig I Comparison (Digit 1) 32.3 ??C Median NR <3.2 >20 Median Radial <0.4 Radial 2.6 <2.9 6.8 >5 Right Median/Radial Dig I Comparison (Digit 1) 32.3 ??C Median 3.2 <3.2 20.5 >20 Median Radial <0.4 Radial NR <2.9 >5 EMG Side Muscle Nerve Root Ins Act Fibs Psw Other Amp Dur Poly Recrt Comment Left Abd Poll Brev Median C8-T1 Nml 0 0 Incr Nml 0 Nml Left 1stDorInt Ulnar C8-T1 Nml 0 0 Incr Nml 0 Nml Left Biceps Musculocut C5-6 Nml 0 0 Nml Nml 0 Nml Left Triceps Radial C6-7-8 Nml 0 0 Nml Nml 0 Nml Left Deltoid Axillary C5-6 Nml 0 0 Nml Nml 0 Nml Right Abd Poll Brev Median C8-T1 Nml 0 0 Nml Nml 0 Decreased Right 1stDorInt Ulnar C8-T1 Nml 0 0 Incr Nml 0 Nml Right Biceps Musculocut C5-6 Nml 0 0 Nml Nml 0 Nml Right Triceps Radial C6-7-8 Nml 0 0 Nml Nml 1+ Nml Right Deltoid Axillary C5-6 Nml 0 0 Nml Nml 0 Nml Waveforms: documented in this encounter Plan of Treatment Upcoming Encounters Date Type Department Care Team (Late st Contact Info) Description 11/18/2024 10:20 AM EDT Office Visit [facility] [address] [place] [address] Christine Deng, [employer] [address] [address] 12/14/2024 10:30 AM EDT Office Visit [facility] [address] [place] [address] Berenice Silver MD [address] [place] [phone] documented as of this encounter Procedures Procedure Name Priority Date/Time Associated Diagnosis Comments EMG / NERVE CONDUCTION STUDY Routine 09/22/2024 11:00 AM EDT Numbness documented in this encounter Results * EMG / NERVE CONDUCTION STUDY (09/22/2024 11:00 AM EDT) Anatomical Region Laterality Modality Other Narrative 09/22/2024 11:00 AM EDT Geovany Sampson MD 09/23/2024 9:35 AM EMG / Nerve Conduction Study Date/Time: 09/22/2024 11:00 AM Performed by: Geovany Sampson MD Authorized by: Stephanie Torres PA Consent: Consent obtained: Written Consent given by: Patient Risks discussed: Bleeding, infection and pain Alternatives discussed: Observation us Stephanie HOFF NEUROLOGY ORDERABLES Final Res ult documented in this encounter Visit Diagnoses Diagnosis Numbness Disturbance of skin sensation documented in this encounter Additional Health Concerns Assessment Noted Time A fall risk assessment has been complete d for the patient 09/22/2024 11:14 AM EDT A Body Mass Index follow-up plan has been documented for the patient 09/23/2024 9:35 AM EDT documented as of this encounter Care Teams Junior Account Manager Relationship Specialty Start Date End Date Philip Khan MD [address] [place] [address] PCP - General Internal Medicine 04/01/22 Hilton Maria MD [address] [place] [address] Surgeon Neurosurgery 04/01/22 documented as of this encounter
--- OUTSIDE RECORDS SUMMARY | 2024-09-28 10:40 | XMS_ITS | Encounter Summary ---
Author Organization Healthcare Address [address] [place] [address] Care Team Providers Care Media Relations Specialist Name Role Phone Hilton Maria MD Unavailable Philip Khan MD Primary Care Provider + [phone] Reason for Referral * Imaging (Routine) - Closed Specialty Diagnoses / Procedures Referred By Contac t Referred To Contact Radiology Diagnoses Numbness and tingling in left hand Procedures US Extremity Limited MSK or Soft Tissue Bilateral; Forearm (median nerve bilateral) Stephanie Torres PA [address] [place] [phone] Phone: tel: fax: Referral ID Status Reason Start Date Expiration Date Visits Re quested Visits Authorized [id number] Closed 09/28/2024 03/30/2026 1 1 Reason for Visit * Reason Comments Follow-up Encounter Details Date Type Department Care Team (Late st Contact Info) Description 09/28/2024 10:40 AM EDT Office Visit [facility] [address] [place] [address] Berenice Silver MD [address] [place] [phone] Numbness and tingling in left hand (Primary Dx) Social History Tobacco Use Types [...] Sign Reading Time Taken Comments Blood Pressure 104/64 09/28/2024 10:42 AM EDT Pulse 63 09/28/2024 10:42 AM EDT Temperature - - Respiratory Rate - - Oxygen Saturation 97% 09/28/2024 10:42 AM EDT Inhaled Oxygen Concentration - - Weight 95.3 kg (210 lb) 09/28/2024 10:42 AM EDT Height 165.1 cm (5' 5 ) 09/28/2024 10:42 AM EDT Body Mass Index 34.95 09/28/2024 10:42 AM EDT documented in this encounter Miscellaneous Notes * Progress Notes - Stephanie Torres PA - 09/28/2024 10:40 AM EDT Images from the original note were not included. Hand Surgery Clinic Note CC: Left hand pain, numbness HISTORY OF PRESENT ILLNESS: Seamus Persaud is a 63 y.o. male who does have several comorbidities to include heart disease, diabetes, history of C5 6 osteophyte formation who was scheduled for surgical intervention but insurance denied his surgery, . Patient was seen by spine in June of 2024 and a C-spine MRI was performed follow-up after I the neurosurgeon did not recommend any neurosurgical intervention but recommended following with pain management for possible C5-6 facet injections. history of C5-6 radiculopathy, chronic kidney disease, history of lung cancer COPD, history of NE, history of stroke, history of cervical stenosis C2-C3. Last A1c per patient report was 7. Patient had left endoscopic carpal tunnel release 12/21/2023 secondary to left [id number] median nerve compression. Patient's main complaint at the time of the surgical intervention was numbness and tingling and pain in the long finger and ring finger. Patient states that ???the doctor treated the wrong 2 fingers, in that he treated the thumb and index finger and did not treat the long and ring finger . Patient now has some pain and numbness of the thumb and index finger. He states he is not necessarily symptomatic in his small finger Patient is also symptomatic on the contralateral hand but not nearly as severe PAST MEDICAL HISTORY: Past Medical History: Diagnosis Date Conversions - Other Blurry Vision Conversions - Other Bulging Disc (C2 - C3) Conversions - Other Chronic Obstructive Pulmonary Disease Conversions - Other Diabetes Mellitus Conversions - Other Heart Disease Conversions - Other Hypertension Conversions - Other Neoplasm Of The Overlapping Lesion Of The Pancreas Conversions - Other Renal Disease Conversions - Other Spinal Stenosis COPD (chronic obstructive pulmonary disease) (CMS/HCC) Diabetes mellitus (CMS/HCC) Gastro-esophageal reflux disease without esophagitis Gastric reflux Hyperlipidemia Hypertension Neck pain Old myocardial infarction 2018 History of myocardial infarction Other nonspecific abnormal [...] history of pneumonia (recurrent) History of pneumonia Sleep apnea intolerant to cpap. Stroke (CMS/HCC) had TIA 2016. Unspecified abdominal pain Stomach pain PAST SURGICAL HISTORY: Past 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: Procedure Laterality Date CHOLECYSTECTOMY N/A Cholecystectomy from [facility] GALLBLADDER SURGERY KNEE SURGERY N/A Knee Surgery from [facility] OTHER SURGICAL HISTORY N/A History of shoulder surgery from [facility] OTHER SURGICAL HISTORY N/A History of cholecystectomy from [facility] OTHER SURGICAL HISTORY N/A History of knee surgery from [facility] SHOULDER SURGERY N/A Shoulder Surgery from [facility] MEDICATIONS: Current Outpatient Medications Medication Sig Dispense Refill albuterol 108 (90 Base) MCG/ACT inhaler Inhale 2 puffs if needed. clopidogrel (Plavix) 75 MG tablet Take 1 tablet (75 mg) by mouth 1 (one) time each day at the same time. ergocalciferol (Vitamin D-2) 1.25 MG (87820 UT) capsule Take 1 capsule (50,000 Units) by mouth 1 (one) time per week. famotidine (Pepcid) 20 MG tablet gabapentin (Neurontin) 800 MG tablet Take 1 tablet (800 mg) by mouth 3 (three) times a day. HumaLOG KWIKPEN 100 UNIT/ML injection pen After checking blood sugar, Inject as follows prior to meals:For BS less than 150, NO insulin For BS between 151-200, inject 2 unitsFor BS between 201-250, inject 4 unitsFor BS between 251-300, inject 6 unitsFor BS between 301-350, inject 8 unitsFor BS between 351-400, inject 10 unitsFor BS between 401-450, inject 12 unitsFor BS between 451-500, inject 15unitsFor BS over 500, inject 20 units and recheck in 30-60 minMax daily dose-50 units isosorbide mononitrate ER (Imdur) 30 MG 24 hr tablet Take 1 tablet (30 mg) by mouth 1 (one) time each day. Do not crush or chew. Januvia 100 MG tablet Jardiance 25 MG Take 1 tablet (25 mg) by mouth 1 (one) time each day. Lantus SoloStar 100 UNIT/ML injection pen Inject 20 units every day by subcutaneous route at bedtime, for diabetes. lisinopril 5 MG tablet 1 (one) time each day at the same time. metoprolol tartrate (Lopressor) 25 MG tablet Take 1 tablet (25 mg) by mouth every 12 (twelve) hours. OneTouch Ultra test strip oxyCODONE-acetaminophen (Percocet) 10-325 MG tablet Take 1 tablet by mouth if needed. rosuvastatin (Crestor) 40 MG tablet Spiriva HandiHaler [address] 1 capsule (18 mcg) into inhaler and inhale 1 (one) time each day. spironolactone (Aldactone) 50 MG tablet Take 1 tablet (50 mg) by mouth 1 (one) time each day. torsemide (Demadex) 100 MG tablet Take 0.5 tablets (50 mg) by mouth 1 (one) time each day. B-D ULTRAFINE III SHORT PEN 31G X 8 MM misc (Patient not taking: Reported on 09/28/2024) benzonatate (Tessalon) 100 MG capsule (Patient not taking: Reported on 09/28/2024) lidocaine (Lidoderm) 5 % patch (Patient not taking: Reported on 09/28/2024) oxyCODONE (Roxicodone) 10 MG immediate release tablet (Patient not taking: Reported on 09/28/2024) pantoprazole (ProtoNix) 20 MG EC tablet (Patient not taking: Reported on 09/28/2024) ranolazine (Ranexa) 1000 MG 12 hr tablet Take 1,000 mg by mouth 2 (two) times a day. (Patient not taking: Reported on 09/28/2024) No current facility-administered medications for this visit. ALLERGIES: Allergies Allergen Reactions Naproxen Hives, Other - please document in the comment field and Unknown - Patient states they do not know rxn details Other reaction(s): hives Tramadol Hives, Other - please document in the comment field, Nausea and Unknown - Patient states they do not know rxn details Other reaction(s): hives SOCIAL HISTORY: Social History Tobacco Use Smoking status: Former Current packs/day: 0.00 Average packs/day: 1.5 packs/day for 30.0 years (45.0 ttl pk-yrs) Types: Cigarettes Start date: 1988 Quit date: 2019 Years since quittin.3 Passive exposure: Past Smokeless tobacco: Never Vaping Use Vaping status: Never Used Substance Use Topics Alcohol use: Yes Comment: very rarely social. Drug use: Yes Types: Marijuana Comment: once every 2-3 weeks. last used 04/21/22. FAMILY HISTORY Family history is as noted on the history intake form which was reviewed and scanned into [employer] Negative for bleeding disorders, clotting disorders or anesthesia issues. REVIEW OF SYSTEMS ROS: 14 point review of systems was completed with the patient and documented on written assessmentat this time and was negative except as noted in the HPI. PHYSICAL EXAM: GEN: Healthy appearing, alert, no acute distress SKIN: Normal color, texture; no rashes or lesions HEENT: Normocephalic, no signs of trauma, anicteric, neck with normal ROM PULM: Normal respiratory effort on room air, no audible stridor or wheeze CV: Left-hand is well-perfused PSYCH: Pleasant and normal affect NEURO: Alert and oriented x 3. Cranial nerves grossly intact, speech intact EXTREMITY: Patient has good active and passive range of motion of the left hand. Healed scar from prior endoscopic carpal tunnel release [employer] [place] Discrimination Thumb Index Long Ring Small Left >15 >15 8 R 5 U 5 5 Hand Provocative Examination Maneuver Left CTS C Spine TTP - Spurling's - Durkan's + Tinels + Thenar Atrophy - APB Motor Grade 4/5 CuTS Tinel's - Ulnar Stretch Comp - Subluxation - 1st DI motor grade 4+/5 FPL 4+ FDP index 4+ RESULTS: See media for MR results cervical spine Media Information Document Information Photographic Image: Patient Image Seemed 09/28/2024 11:28 Attached To: Office Visit on 09/28/24 with Berenice Silver MD Source Information Stephanie Torres, LUIS EDUARDO [facility] Hand Document History Results from [facility] (11/10/2023 - prior to outside surgery) were personally reviewed and the report impression: 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 I have personally reviewed the op report from 12/21/2023 where a left carpal tunnel release was performed by Dr. John Dickerson ASSESSMENT/PLAN: Seamus Persaud is a 63 y.o. year-old male presenting for bilateral numbness and tingling and pain. We are not sure of the etiology of the patient's persistent symptoms in his left upper extremity. Does have likely a component of neuropathy and possibly has some radiculopathy as he has had radiculopathy in the past. We have talked with the patient that we think that a provocative test with acarpal tunnel injection is likely the best next interventional step to see if he got any improvement with the steroid injection. We have discussed with him that we would not want to do a surgical intervention if he did not get some relief with steroid injection. [facility] recommend getting an ultrasound.Patient wanted to hold off on a steroid injection until after the ultrasound we think this is reasonable an ultrasound is ordered. Cosigned by Berenice Silver MD at 10/04/2024 12:00 PM EDT Associated attestation - Berenice Silver MD - 10/04/2024 12:00 PM EDT I attest to being involved in providing substantive part of the medical decision making in patient care. documented in this encounter Plan of Treatment Upcoming Encounters Date Type Department Care Team (Late st Contact Info) Description 11/18/2024 10:20 AM EDT Office Visit [facility] [address] [place] [address] Christine Deng, CALENDER WIND UP HELPER [address] [phone] 12/14/2024 10:30 AM EDT [facility] [address] [place] [phone] Berenice Silver MD [address] [phone] documented as of this encounter Results * US Extremity Limited MSK or Soft Tissue Bilateral; Forearm (median nerve bilateral) (10/20/2024 2:13 PM EDT) Anatomical Region Laterality Modality Upper Extremities, Lower Extremities Ultrasound Impressions 10/20/2024 3:27 PM EDT No evidence of median nerve compression. CRITICAL RESULT: No. COMMUNICATION: Per this written report. Drafted by Robe Alonso MD on 10/20/2024 3:26 PM Final report signed by Robe Alonso MD on 10/20/2024 3:27 PM Narrative 10/20/2024 3:27 PM EDT CLINICAL INDICATION: looking for compression of median nerve LUE vs RUE TECHNIQUE: Multiple grayscale and color Doppler images of the volar aspects of the bilateral wrists. COMPARISON: None. FINDINGS: Right wrist: There is no soft tissue mass or abnormal vascularity. The median nerve appears normal in its size and echogenicity. Left wrist: No abnormal vascularity or soft tissue mass. Median nerve appears normal in size. Echogenicity appears within normal limits. Procedure Note Robe Alonso MD - 10/20/2024 CLINICAL INDICATION: looking for compression of median nerve LUE vs RUE TECHNIQUE: Multiple grayscale and color Doppler images of the volar aspects of thebilateral wrists. COMPARISON: None. FINDINGS: Right wrist: There is no soft tissue mass or abnormal vascularity. Themedian nerve appears normal in its size and echogenicity. Left wrist: No abnormal vascularity or soft tissue mass. Median nerveappears normal in size. Echogenicity appears within normal limits. IMPRESSION: No evidence of median nerve compression. CRITICAL RESULT: No. COMMUNICATION: Per this written report. Drafted by Robe Alonso MD on 10/20/2024 3:26 PM Final report signed by Robe Alonso MD on 10/20/2024 3:27 PM us Stephanie HOFF IMG US PROCEDURES Final Result documented in this encounter Visit Diagnoses Diagnosis Numbness and tingling in left hand- Primary Disturbance of skin sensation Numbness and tingling in left hand Disturbance of skin sensation documented in this encounter Additional Health Concerns Assessment Noted Time A fall risk assessment has been complete d for the patient 09/22/2024 11:14 AM EDT A Body Mass Index follow-up plan has been documented for the patient 10/04/2024 12:00 PM EDT documented as of this encounter Care Teams Media Relations Specialist Relationship Specialty Start Date End Date Philip Khan MD [address] [place] [address] PCP - General Internal Medicine 04/01/22 Hilton Maria MD [address] [place] [address] Surgeon Neurosurgery 04/01/22 documented as of this encounter
--- OUTSIDE RECORDS SUMMARY | 2024-10-20 13:37 | XMS_ITS | Encounter Summary ---
Author Organization Healthcare Address [address] [place] [address] Care Team Providers Care Centrifugal Drier Operator Name Role Phone Hilton Maria MD Unavailable Philip Khan MD Primary Care Provider + [phone] Reason for Referral * Imaging (Routine) - Closed Specialty Diagnoses / Procedures Referred By Contac susan Referred To Contact Radiology Diagnoses Numbness and tingling in left hand Procedures US Extremity Limited MSK or Soft Tissue Bilateral; Forearm (median nerve bilateral) Stephanie Torres PA [address] [address] Phone: tel: fax: Referral ID Status Reason Start Date Expiration Date Visits Re quested Visits Authorized [id number] Closed 09/28/2024 03/30/2026 1 1 Reason for Visit * Imaging (Routine) - Closed Specialty Diagnoses / Procedures Referred By Fran davis Referred To Contact Radiology Diagnoses Numbness and tingling in left hand Procedures US Extremity Limited MSK or Soft Tissue Bilateral; Forearm (median nerve bilateral) Stephanie Torres PA [address] [address] Phone: tel: fax: Referral ID Status Reason Start Date Expiration Date Visits Re quested Visits Authorized [id number] Closed 09/28/2024 03/30/2026 1 1 Encounter Details Date Type Department Care Team (Latest Contact Info) Description 10/20/2024 1:37 PM EDT - 10/20/2024 11:59 PM EDT Hospital Encounter [facility] [address] [place] [address] Numbness and tingling in left hand Discharge [...] time. 07/17/2016 ergocalciferol (Vitamin D-2) 1.25 MG (37662 UT) capsule Take 1 capsule (50,000 Units) [...] Description 11/18/2024 10:20 AM EDT Office Visit [facility] [address] [place] [address] IshChristine, FLASK CARRIER [address] [facility] [address] [place] [address] 12/14/2024 10:30 AM EDT Office Visit [facility] [address] [place] [address] Berenice Silver MD [address] [place] [address] documented as of this encounter Procedures [...] 3:26 PM Final report signed by Robe Alonos MD on 10/20/2024 3:27 PM Narrative 10/20/2024 [...] documented as of this encounter Care Teams Centrifugal Drier Operator Relationship Specialty Start Date End Date Philip Khan MD [address] [place] [address] PCP - General Internal Medicine 04/01/22 Hilton Maria MD [address] [place] [address] Surgeon Neurosurgery 04/01/22 documented as of this encounter
--- OUTSIDE RECORDS SUMMARY | 2024-10-21 05:43 | XMS_ITS ---
Author Organization [facility] Address [address] [place] [address] Care Team Providers Care Assembler [employer] Name Role Phone Reji Jordan II Unavailable Adam OSUNA -Lyndon Celestin Unavailable Un available REASON FOR VISIT 10/23/2024 erx MEDICATIONS Medication SIG (Take, Route, Frequency, Duration) Notes Start Date End Date Status TiZANidine Hydrochloride 4 mg 1 tab(s) orally 3 times a day as needed for 30 day(s) Active OxyCODONE Hydrochloride 10 mg 1 tab(s) orally 3 times a day for 28 days November 2024 RX, DO NOT FILL SOONER THAN 28 DAYS, (OK TO FILL EARLY, ONLY IF CLOSED) 10/21/2024 Active OxyCODONE Hydrochloride 10 mg 1 tab(s) orally 3 times a day for 28 days OCTOBER 2024 RX, DO NOT FILL SOONER THAN 28 DAYS, (OK TO FILL EARLY, ONLY IF CLOSED) 10/21/2024 Active Encounters Encounter Location Date Provider Diagnosis [facility] [address] [place] [address] 10/21/2024 Reji Jordan Other custodial (current) drug therapy Z79.899 ASSESSMENTS Encounter Date Diagnosis Assessment Notes Treatment Notes Treatment Clinical Notes Section Notes 10/21/2024 Other long term care pharmacist (current) drug therapy (ICD-10 - Z79.899) PLAN OF TREATMENT Medication Medication Name Sig Start Date Stop Date Notes TiZANidine Hydrochloride 4 mg 1 tab(s) orally 3 times a day as needed for 30 day(s) OxyCODONE Hydrochloride 10 mg 1 tab(s) orally 3 times a day for 28 days 10/21/2024 RX, DO NOT FILL SOONER THAN 28 DAYS, (OK TO FILL EARLY, ONLY IF CLOSED) OxyCODONE Hydrochloride 10 mg 1 tab(s) orally 3 times a day for 28 days 10/21/2024 RX, DO NOT FILL SOONER THAN 28 DAYS, (OK TO FILL EARLY, ONLY IF CLOSED) Next Appt Details Provider Name:Ted Barry ms, 12/16/2024 09:30:00 AM, [address], [place] [address], [place], [address],
--- OUTSIDE RECORDS SUMMARY | 2024-10-25 07:40 | XMS_ITS ---
Author Organization [facility] Address [address] [place] [address] Care Team Providers Care Environmental Laboratory Technician Name Role Phone Reji Jordan II Unavailable Adam OSUNA -Lyndon Celestin Unavailable Un available REASON FOR VISIT 11/08 pill count Encounters Encounter Location Date Provider Diagnosis [facility] [address] [place] [address] 10/25/2024 Reji Jordan PLAN OF TREATMENT Next Appt Details Provider Name:Ted Barry ms, 12/16/2024 09:30:00 AM, [address], [address], [place], [address],
--- OUTSIDE RECORDS SUMMARY | 2024-10-28 04:47 | XMS_ITS ---
Author Organization [facility] Address [address] [place] [address] Care Team Providers Care Machine Cutter Name Role Phone Reji Jordan II Unavailable Adam OSUNA -Lyndon Celestin Unavailable Un available REASON FOR VISIT PA [id number] denied-submitted new request 11/16-approved Encounters Encounter Location Date Provider Diagnosis [facility] [address] [place] [address] 10/28/2024 Reji Jordan PLAN OF TREATMENT Next Appt Details Provider Name:Ted Barry ms, 12/16/2024 09:30:00 AM, [address], [address], [place], [address],
--- OUTSIDE RECORDS SUMMARY | 2024-11-11 10:50 | XMS_ITS | Encounter Summary ---
Author Organization Healthcare Address [address] [place] [address] Care Team Providers Care Internal Control Analyst Name Role Phone Hilton Maria MD Unavailable Philip Khan MD Primary Care Provider + [phone] Reason for Visit * Reason Comments Follow-up Encounter Details Date Type Department Care Team (Late st Contact Info) Description 11/11/2024 10:50 AM EDT Office Visit [facility] [address] [place] [phone] Berenice Silver MD [address] [phone] Numbness and tingling in left [...] with PMHx of DM, CKD, COPD, prior [place]/CVA, C2-C3 cervical stenosis, C5-C6 osteophyte formation and radiculopathy who presents for further evaluation of his bilateral hand numbness/paresthesia. He reports numbness of his left ring and small fingers for a few years and states he underwent leftendoscopic carpal tunnel release (12/21/23) in [place] for this. He states since then, he [...] form which was reviewed and scanned into [employer] Negative for bleeding disorders, clotting disorders or [...] able to form a composite fist, weakened wire bender hand strength. Two Point Discrimination Thumb Index Long [...] latency to the median nerve fibers electrophysiologically [id number] Median to ulnar crossover with a Jcarlos [...] The patient tolerated injection(s) well. I did grief counsellor the patient that, after the lidocaine wears [...] pneumonia Sleep apnea intolerant to cpap. Stroke (CMS/[facility]) had TIA 2015. Unspecified abdominal pain Stomach pain [2] Past 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: Procedure Laterality Date CHOLECYSTECTOMY N/A Cholecystectomy from [facility] GALLBLADDER SURGERY HAND SURGERY [id number] KNEE SURGERY N/A Knee Surgery from [facility] OTHER SURGICAL HISTORY N/A History of shoulder surgery from [facility] OTHER SURGICAL HISTORY N/A History of cholecystectomy from [facility] OTHER SURGICAL HISTORY N/A History of knee surgery from [facility] SHOULDER SURGERY N/A Shoulder Surgery from [facility] [3] Current Outpatient Medications Medication Sig Dispense [...] same time. ergocalciferol (Vitamin D-2) 1.25 MG (83135 UT) capsule Take 1 capsule (50,000 Units) [...] AM EDT Office Visit [facility] [address] [place] [address] Christine Deng, ICING MAKER [address] [address] 12/14/2024 10:30 AM EDT Office Visit [facility] [address] [place] [address] Berenice Silver MD [address] [address] documented as of this encounter Visit Diagnoses [...] documented as of this encounter Care Teams Internal Control Analyst Relationship Specialty Start Date End Date Philip Khan MD [address] [place] [address] PCP - General Internal Medicine 04/01/22 Hilton Maria MD [address] [facility] [address] [place] [address] Surgeon Neurosurgery 04/01/22 documented as of this encounter
[2024-11-17 10:18] LABS: Microscopic, Urine URINE MICROSCOPIC (MICROSCOPIC)
--- OUTSIDE RECORDS SUMMARY | 2024-11-17 10:35 | XMS_ITS | Patient Health Record ---
Author Organization [facility] Address [address] [place] [address] Care Team Providers Care Bead Picker Name Role Phone Reji Jordan II Unavailable Adam OSUNA -Lyndon Celestin Unavailable Un available ALLERGIES Allergen (clinical drug ingredient) Drug/Non Drug Allergy documented on EMR Reaction Allergy Type Onset Date Status naproxen hives Drug Allergy Active tramadol tramadol hives Drug Allergy Active RESULTS Component Value Reference Range Notes Urine Test ANALYZER Reviewed date:06/24/2024 01:51:09 PM Interpretation:ALL NEG Performing Lab: Notes/Report: ALL NEG Heroin Metabolite (6AM) NEG Amphetamine (AMP) NEG Benzodiazepine (ANKUR) NEG Buprenorphine NEG Cocaine (BENNETT) NEG Hydrocodone (HYD) NEG Methadone (MTD) NEG Opiate (OPI) NEG Oxycodone (OXY) NEG Urine Test ANALYZER Reviewed date:02/02/2024 09:10:26 AM Interpretation:+OXY Performing Lab: Notes/Report: +OXY Heroin Metabolite (6AM) NEG Amphetamine (AMP) NEG Benzodiazepine (ANKUR) NEG Buprenorphine NEG Cocaine (BENNETT) NEG Hydrocodone (HYD) NEG Methadone (MTD) NEG Opiate (OPI) NEG Oxycodone (OXY) POS Urine Test ANALYZER Reviewed date:12/04/2023 10:47:13 AM Interpretation:+OXY Performing Lab: Notes/Report: +OXY Heroin Metabolite (6AM) NEG Amphetamine (AMP) NEG Benzodiazepine (ANKUR) NEG Buprenorphine NEG Cocaine (BENNETT) NEG Hydrocodone (HYD) NEG Methadone (MTD) NEG Opiate (OPI) NEG Oxycodone (OXY) POS Urine Test ANALYZER Reviewed date:04/06/2024 08:33:17 AM Interpretation:NEG ALL Performing Lab: Notes/Report: NEG ALL Heroin Metabolite (6AM) NEG Amphetamine (AMP) NEG Benzodiazepine (ANKUR) NEG Buprenorphine NEG Cocaine (BENNETT) NEG Hydrocodone (HYD) NEG Methadone (MTD) NEG Opiate (OPI) NEG Oxycodone (OXY) NEG Urine Test LCMS Definitive Reviewed date:09/20/2024 06:38:46 AM Interpretation:+gbp+benzo Performing Lab: Notes/Report: +gbp+benzo Report Attached Urine Test LCMS Definitive Reviewed date:08/16/2024 09:48:10 AM Interpretation:+gbp Performing Lab: Notes/Report: +gbp Report Attached Urine Test ANALYZER Reviewed date:08/29/2024 10:56:03 AM Interpretation:ALL NEG Performing Lab: Notes/Report: ALL NEG Heroin Metabolite (6AM) NEG Amphetamine (AMP) NEG Benzodiazepine (ANKUR) NEG Buprenorphine NEG Cocaine (BENNETT) NEG Hydrocodone (HYD) NEG Methadone (MTD) NEG Opiate (OPI) NEG Oxycodone (OXY) NEG Urine Test ANALYZER Reviewed date:10/21/2024 03:39:02 PM Interpretation:+OXY Performing Lab: Notes/Report: +OXY Heroin Metabolite (6AM) NEG Amphetamine (AMP) NEG Benzodiazepine (ANKUR) NEG Buprenorphine NEG Cocaine (BENNETT) NEG Hydrocodone (HYD) NEG Methadone (MTD) NEG Opiate (OPI) NEG Oxycodone (OXY) POS REASON FOR REFERRAL No Information MEDICATIONS Medication SIG (Take, Route, Frequency, Duration) Notes Start Date End Date Status baclofen 10 mg 1 tab(s) orally 3 times a day for 30 days Active ProAir HFA 90 mcg/inh 2 puff(s) inhaled every 6 hours 05/13/2022 Active Lidocaine, Topical 4% 1 patch applied topically once a day for 30 days Active Metoprolol Tartrate 25 mg 1 tab(s) orally 2 times a day for 30 day(s) 05/13/2022 Active Jardiance 25 mg 1 tab(s) orally once a day (in the morning) 05/13/2022 Active clopidogrel 75 mg 1 tab(s) orally once a day for 30 day(s) 05/13/2022 Active TiZANidine Hydrochloride 4 mg 1 tab(s) orally 3 times a day as needed for 30 day(s) Active Plavix 75 mg 1 tab(s) orally once a day for 30 day(s) Active OxyCODONE Hydrochloride 10 mg 1 tab(s) orally 3 times a day for 28 days November 2024 RX, DO NOT FILL SOONER THAN 28 DAYS, (OK TO FILL EARLY, ONLY IF CLOSED) 10/21/2024 Active ranolazine 1000 mg 1 tab(s) orally 2 times a day for 30 day(s) 06/04/2022 Active OxyCODONE Hydrochloride 10 mg 1 tab(s) orally 3 times a day for 28 days OCTOBER 2024 RX, DO NOT FILL SOONER THAN 28 DAYS, (OK TO FILL EARLY, ONLY IF CLOSED) 10/21/2024 Active lisinopril 5 mg 1 tab(s) orally once a day for 30 day(s) 05/13/2022 Active famotidine 20 mg 1 tab(s) orally 2 times a day 05/13/2022 Active isosorbide mononitrate 30 mg 1 tab(s) orally once a day (in the morning) for 30 day(s) 06/04/2022 Active PROBLEMS Problem Type ICD Code Onset Dates Problem Status W/U Status Risk SNOMED Code Notes Problem Malignant neoplasm of unspecified part of unspecified bronchus or lung (C34.90) Active confirmed Malignant tumor of lung (543527031) Problem Other spondylosis with radiculopathy, cervical region (M47.22) Active confirmed Cervical spondylosis without myelopathy (841637427) Problem Spondylosis without myelopathy or radiculopathy, lumbosacral region (M47.817) Active confirmed Lumbosacral spondylosis without myelopathy (disorder) (66158874) Problem Other [employer] (current) drug therapy (Z79.899) Active confirmed Long-term current use of drug therapy (987426303) VITAL SIGNS Heart Rate 75 /min 10/21/2024 Blood pressure diastolic 63 mm Hg 10/21/2024 Height 65 in 10/21/2024 Blood pressure systolic 97 mm Hg 10/21/2024 Weight 215 lbs 10/21/2024 BMI 35.77 kg/m2 10/21/2024 Encounters Encounter Location Date Provider Diagnosis [facility] [address] [place] [address] 12/04/2023 Reji Jordan Other intermediate (current) drug therapy Z79.899 ; Spondylosis without myelopathy or radiculopathy, lumbosacral region M47.817 and Malignant neoplasm of unspecified part of unspecified bronchus or lung C34.90 [facility] [address] [place] [address] 12/04/2023 Reji Jordan Other [employer] (current) drug therapy Z79.899 [facility] [address] [place] [address] 02/02/2024 Reji Jordan Other [employer] (current) drug therapy Z79.899 [facility] [address] [place] [address] 02/02/2024 Reji Jordan Other intermediate (current) drug therapy Z79.899 ; Spondylosis without myelopathy or radiculopathy, lumbosacral region M47.817 and Malignant neoplasm of unspecified part of unspecified bronchus or lung C34.90 [facility] [address] [place] [address] 04/05/2024 Reji Jordan Other [employer] (current) drug therapy Z79.899 ; Spondylosis without myelopathy or radiculopathy, lumbosacral region M47.817 and Malignant neoplasm of unspecified part of unspecified bronchus or lung C34.90 [facility] [address] [place] [address] 04/05/2024 Reji Jordan Other intermediate (current) drug therapy Z79.899 [facility] [address] [place] [address] 04/06/2024 Reji Jordan [facility] [address] [place] [address] 05/31/2024 Reji Jordan Other intermediate (current) drug therapy Z79.899 [facility] [address] [place] [address] 05/31/2024 Reji Jordan Other [employer] (current) drug therapy Z79.899 ; Spondylosis without myelopathy or radiculopathy, lumbosacral region M47.817 and Malignant neoplasm of unspecified part of unspecified bronchus or lung C34.90 [facility] [address] [place] [address] 06/23/2024 Reji Jordan Other [employer] (current) drug therapy Z79.899 ; Spondylosis without myelopathy or radiculopathy, lumbosacral region M47.817 and Malignant neoplasm of unspecified part of unspecified bronchus or lung C34.90 [facility] [address] [place] [address] 06/23/2024 Reji Jordan Other [employer] (current) drug therapy Z79.899 [facility] [address] [place] [address] 06/23/2024 Reji Jordan [facility] [address] [place] [address] 08/23/2024 Reji Jordan Other [employer] (current) drug therapy Z79.899 ; Spondylosis without myelopathy or radiculopathy, lumbosacral region M47.817 and Malignant neoplasm of unspecified part of unspecified bronchus or lung C34.90 [facility] [address] [place] [address] 08/26/2024 Reji Jordan Other [employer] (current) drug therapy Z79.899 ; Spondylosis without myelopathy or radiculopathy, lumbosacral region M47.817 and Malignant neoplasm of unspecified part of unspecified bronchus or lung C34.90 [facility] [address] [place] [address] 08/26/2024 Reji Jordan Other intermediate (current) drug therapy Z79.899 [facility] [address] [place] [address] 10/21/2024 Reji Jordan Other [employer] (current) drug therapy Z79.899 ; Spondylosis without myelopathy or radiculopathy, lumbosacral region M47.817 and Malignant neoplasm of unspecified part of unspecified bronchus or lung C34.90 [facility] [address] [place] [address] 10/21/2024 Reji Jordan Other [employer] (current) drug therapy Z79.899 [facility] [address] [place] [address] 10/25/2024 Reji Jordan [facility] [address] [place] [address] 10/28/2024 Reji Jordan ASSESSMENTS Encounter Date Diagnosis Assessment Notes Treatment Notes Treatment Clinical Notes Section Notes 12/04/2023 Spondylosis without myelopathy or radiculopathy, lumbosacral region (ICD-10 - M47.817) 12/04/2023 Seamus presents for follow up. Primary pain [...] off of all his meds. Declines injections. Patient is scheduled December 20 for Left Carpal Tunnel Surgery. Discussed in detail over prescribed prescriptions. Verbalized understanding. Patient is currently prescribed Oxycodone 10mg TID. Denies side effects. Salvador and UDS reviewed. Refills and F/U in 2 months. 12/04/2023 Other intermediate (current) drug therapy (ICD-10 - Z79.899) 12/04/2023 1. Refill Oxycodone 10 mg TID 2. F/U 2 months 12/04/2023 Seamus presents for follow up. Primary pain [...] off of all his meds. Declines injections. Patient is scheduled December 20 for Left Carpal Tunnel Surgery. Discussed in detail over prescribed prescriptions. Verbalized understanding. Patient is currently prescribed Oxycodone 10mg TID. Denies side effects. Salvador and UDS reviewed. Refills and F/U in 2 months. 12/04/2023 Other intermediate (current) drug therapy (ICD-10 - Z79.899) 02/02/2024 Spondylosis without myelopathy or radiculopathy, lumbosacral region (ICD-10 - M47.817) 02/02/2024 Seamus presents for follow up. Primary pain [...] Dickerson. Continues to have pain in left wrist. Working with physical therapy. Patient is currently prescribed Oxycodone 10mg TID. Denies side effects. Salvador and UDS reviewed. Refills and F/U in 2 months. 02/02/2024 Other [employer] (current) drug therapy (ICD-10 - Z79.899) 02/02/2024 1. Refill Oxycodone 10 mg TID 2. F/U 2 months 02/02/2024 Seamus presents for follow up. Primary pain [...] Dickerson. Continues to have pain in left wrist. Working with physical therapy. Patient is currently prescribed Oxycodone 10mg TID. Denies side effects. Salvador and UDS reviewed. Refills and F/U in 2 months. 10/21/2024 Other [employer] (current) drug therapy (ICD-10 - Z79.899) 05/31/2024 Other [employer] (current) drug therapy (ICD-10 - Z79.899) 04/05/2024 [...] prescribed Oxycodone 10mg TID. Denies side effects. Salvador and UDS reviewed. Refills and F/U in 2 months. 04/05/2024 Other [employer] (current) drug therapy (ICD-10 - Z79.899) 10/21/2024 Other [employer] (current) drug therapy (ICD-10 - Z79.899) 10/21/2024 1. Refill Oxycodone 10 mg TID 2. F/U 2 months 3. Refill baclofen 10mg TID 4. Refill lidocaine patches daily 5. Screen Expected,Sen t for Definitive bc of last 3 neg definitives, PILL COUNT NEAR FUTURE Mr. Persaud is a 63-year-old who returns today for [...] denies any side effect of the medicine. Salvador and UDS were reviewed. Opioid risk assessment [...] is also managed by Dr. Thomas in [place] for additional medications, including Ambien, gabapentin, and tizanidine. Due to recent UDS findings and behavior, he will require a pill count in the near future. Refills for oxycodone 10mg TID, baclofen 10mg TID, and daily lidocaine patches were sent today. A definitive screen has been ordered given the history of three consecutive negative definitive UDS results. Follow-up is scheduled in two months. 08/26/2024 Other [employer] (current) drug therapy (ICD-10 - Z79.899) 06/23/2024 Spondylosis without myelopathy or radiculopathy, lumbosacral region [...] scheduled to have [facility] Insurance will not pay for [...] prescribed Oxycodone 10mg TID. Denies side effects. Salvador and UDS reviewed. Refills and F/U in 2 months. 06/23/2024 Other [employer] (current) drug therapy (ICD-10 - Z79.899) 06/23/2024 [...] prescribed Oxycodone 10mg TID. Denies side effects. Salvador and ROGERS reviewed. Refills and F/U in 2 months. 05/31/2024 Other [employer] (current) drug therapy (ICD-10 - Z79.899) 04/05/2024 Spondylosis without myelopathy or radiculopathy, lumbosacral region [...] prescribed Oxycodone 10mg TID. Denies side effects. Salvador and UDS reviewed. Refills and F/U in 2 months. 04/05/2024 Other intermediate (current) drug therapy (ICD-10 - Z79.899) 04/05/2024 [...] prescribed Oxycodone 10mg TID. Denies side effects. Salvador and ROGERS reviewed. Refills and F/U in 2 months. 02/02/2024 Other [employer] (current) drug therapy (ICD-10 - Z79.899) 08/26/2024 Spondylosis without myelopathy or radiculopathy, lumbosacral region (ICD-10 - M47.817) Mr. Persaud is a 63-year-old who returns today for [...] denies any side effect of the medicine. Salvador and UDS were reviewed. Opioid risk assessment is low 08/26/2024 Other [employer] (current) drug therapy (ICD-10 - Z79.899) 08/26/2024 1. Refill Oxycodone 10 mg TID 2. F/U 2 months 3. Refill baclofen 10mg TID 4. Refill lidocaine patches daily Mr. Persaud is a 63-year-old who returns today for [...] denies any side effect of the medicine. Salvador and UDS were reviewed. Opioid risk assessment is low 08/23/2024 Other intermediate (current) drug therapy (ICD-10 - Z79.899) 06/23/2024 [...] prescribed Oxycodone 10mg TID. Denies side effects. Salvador and UDS reviewed. Refills and F/U in 2 months. 06/23/2024 Other [employer] (current) drug therapy (ICD-10 - Z79.899) 06/23/2024 Malignant neoplasm of unspecified part of unspecified [...] prescribed Oxycodone 10mg TID. Denies side effects. Salvador and UDS reviewed. Refills and F/U in [...] prescribed Oxycodone 10mg TID. Denies side effects. Salvador and UDS reviewed. Refills and F/U in 2 months. 04/05/2024 Malignant neoplasm of unspecified part of unspecified [...] prescribed Oxycodone 10mg TID. Denies side effects. Salvador and UDS reviewed. Refills and F/U in 2 months. 08/26/2024 Malignant neoplasm of unspecified part of unspecified bronchus or lung (ICD-10 - C34.90) Mr. Persaud is a 63-year-old who returns today for [...] denies any side effect of the medicine. Salvador and UDS were reviewed. Opioid risk assessment is low 10/21/2024 Spondylosis without myelopathy or radiculopathy, lumbosacral region (ICD-10 - M47.817) Mr. Persaud is a 63-year-old who returns today for [...] denies any side effect of the medicine. Salvador and UDS were reviewed. Opioid risk assessment [...] is also managed by Dr. Thomas in [place] for additional medications, including Ambien, gabapentin, and tizanidine. Due to recent UDS findings and behavior, he will require a pill count in the near future. Refills for oxycodone 10mg TID, baclofen 10mg TID, and daily lidocaine patches were sent today. A definitive screen has been ordered given the history of three consecutive negative definitive UDS results. Follow-up is scheduled in two months. 05/31/2024 Spondylosis without myelopathy or radiculopathy, lumbosacral region (ICD-10 - M47.817) 04/05/2024 Seamus presents for follow up. Primary pain generator is lumbar spondylosis and increasing neck pain. Imaging of CS demonstrates facet arthropathy which is notable at C5-6 and C6-7. Pain is worse on the right and he has difficulty with lateral rotation as well as flexion extension of the head. TIFFANIEE marcelo berry. Patient was scheduled to have surgery with [...] prescribed Oxycodone 10mg TID. Denies side effects. Salvador and UDS reviewed. Refills and F/U in 2 months. 02/02/2024 Malignant neoplasm of unspecified part of unspecified bronchus or lung (ICD-10 - C34.90) 02/02/2024 Seamus presents for follow up. Primary pain [...] Dickerson. Continues to have pain in left wrist. Working with physical therapy. Patient is currently prescribed Oxycodone 10mg TID. Denies side effects. Salvador and UDS reviewed. Refills and F/U in 2 months. 12/04/2023 Malignant neoplasm of unspecified part of unspecified bronchus or lung (ICD-10 - C34.90) 12/04/2023 Seamus presents for follow up. Primary pain [...] off of all his meds. Declines injections. Patient is scheduled December 20 for Left Carpal Tunnel Surgery. Discussed in detail over prescribed prescriptions. Verbalized understanding. Patient is currently prescribed Oxycodone 10mg TID. Denies side effects. Salvador and UDS reviewed. Refills and F/U in [...] prescribed Oxycodone 10mg TID. Denies side effects. Salvador and UDS reviewed. Refills and F/U in 2 months. 10/21/2024 Malignant neoplasm of unspecified part of unspecified bronchus or lung (ICD-10 - C34.90) Mr. Persaud is a 63-year-old who returns today for [...] denies any side effect of the medicine. Salvador and UDS were reviewed. Opioid risk assessment [...] is also managed by Dr. Thomas in [place] for additional medications, including Ambien, gabapentin, and tizanidine. Due to recent UDS findings and behavior, he will require a pill count in the near future. Refills for oxycodone 10mg TID, baclofen 10mg TID, and daily lidocaine patches were sent today. A definitive screen has been ordered given the history of three consecutive negative definitive UDS results. Follow-up is scheduled in two months. 08/23/2024 Malignant neoplasm of unspecified part [...] prescribed Oxycodone 10mg TID. Denies side effects. Salvador and UDS reviewed. Refills and F/U in 2 months. PLAN OF TREATMENT Pending Test Test Name Order Date Urine Test ANALYZER 06/02/2022 Urine Test ANALYZER 05/31/2024 Urine Test ANALYZER 08/23/2024 Urine Test LCMS Definitive 10/21/2024 Next Appt Details Provider Name:Ted Omari Asha ms, 12/16/2024 09:30:00 AM, [address] [facility], [facility] [address], [place], [address], Insurance Providers Payer Name Payer Address Payer Phone Subscriber Number Group Number Insured Name Patient Relationship to Insured Coverage Start Date Coverage End Date [employer] [address] [place] [address] [id number] [facility] Seamus Persaud Self - patient is the insured 5 MEDICAL (GENERAL) HISTORY Medical History History ICD Code COPD [address] Medina HTN [address] Gonzalez Diabetes type [address] Elizabeth ht Stage 3 lung cancer [address] Saeed GERD [address] Medina Kidney injury [address] Medina headaches [address] Medina Depression [address] Medina TIA [address] Medina Neuropathy [address] Medina CHF [address] Medina MO [address] Gonzalez Arthritis [address] Medina Anemia [address] Medina CAD [address] Gonzalez 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 Surgery Date(Month/Year) Gallbladder- [facility](OP) 2009 Lt shoulder- Dr. Dickerson/ [facility] (OP) 12 Rt Knee surgery X2- Dr. Hayes/ [facility] (OP) [address] Olvera/ [facility](OP) 01/2017 Cardiac Ablation for SVT at / (OP) 201 7 Colonoscopy [facility]- Dr Reba hernández (OP) 2017 Capsule endoscopy- Dr. Dickinson/ [facility] (O P) 09/2018 EGD/EUS- Dr. Locke/ [facility] (OP) 07/28 19 [facility] W/out stents/ [facility] (OP) 07/2018 EGD- [place]/[facility] / OP 06/09 021 pt had surgery on left wrist at [facility]. (OP) 12/21/2023 Hospitalization History Reason Date(Month/Year) [facility] - Swollen Knee (RT) - OP 04/02/2024 heart/kidney [facility] 06/08/2023
--- OUTSIDE RECORDS SUMMARY | 2024-11-17 10:35 | XMS_ITS | Clinical Summary ---
Author Organization [facility] Address [facility] [place] [address] Care Team Providers Care Ski Maker Wood Name Role Phone Hilton Maria MD Unavailable Philip Khan MD Primary Care Provider + [phone] Allergies Active Allergy Reactions Criticality Noted Date [...] MCG/ACT inhaler Inhale 2 puffs if needed. 7 Active clopidogrel (Plavix) 75 MG tablet Take 1 tablet (75 mg) by mouth 1 (one) time each day at the same time. 7 Active Jardiance 25 MG Take 1 tablet (25 mg) by mouth 1 (one) time each day. 2 Active ergocalciferol (Vitamin D-2) 1.25 MG (32277 UT) capsule Take 1 capsule (50,000 Units) by mouth 1 (one) time per week. 9 Active gabapentin (Neurontin) 800 MG tablet Take 1 tablet (800 mg) by mouth 3 (three) times a day. 8 Active OneTouch Ultra test strip 2 Active lisinopril 5 MG tablet 1 (one) time each day at the same time. 2 Active metoprolol tartrate (Lopressor) 25 MG tablet Take 1 tablet (25 mg) by mouth every 12 (twelve) hours. 2 Active ranolazine (Ranexa) 1000 MG 12 hr tablet Take 1,000 mg by mouth 2 (two) times a day. 2 Active spironolactone (Aldactone) 50 MG tablet Take 1 tablet (50 mg) by mouth 1 (one) time each day. 2 Active Spiriva HandiHaler [address] 1 capsule (18 mcg) into inhaler and inhale 1 (one) time each day. 2 Active torsemide (Demadex) 100 MG tablet Take 0.5 tablets (50 mg) by mouth 1 (one) time each day. 2 Active oxyCODONE-aceta minophen (Percocet) 10-325 MG tablet Take 1 tablet by mouth if needed. 2 Active isosorbide mononitrate ER (Imdur) 30 MG 24 hr tablet Take 1 tablet (30 mg) by mouth 1 (one) time each day. Do not crush or chew. Active famotidine (Pepcid) 20 MG tablet 2 Active B-D ULTRAFINE III SHORT PEN 31G X 8 MM misc 2 Active Januvia 100 MG tablet 3 Active rosuvastatin (Crestor) 40 MG tablet 3 Active pantoprazole (ProtoNix) 20 MG EC tablet 3 Active oxyCODONE (Roxicodone) 10 MG immediate release tablet 3 Active lidocaine (Lidoderm) 5 % patch 3 Active benzonatate (Tessalon) 100 MG capsule 3 Active Lantus SoloStar 100 UNIT/ML injection pen Inject 20 units every day by subcutaneous route at bedtime, for diabetes. Active HumaLOG KWIKPEN 100 UNIT/ML injection pen After [...] recheck in 30-60 minMax daily dose-50 units Active Continuous Glucose Sensor (FreeStyle Joselito 3 Sensor) misc USE DIRECTED EVERY 14 DAYS Active Hospital, Clinic, or Other Facility Administered Medication Ordered Dose Route Frequency Start Date End Date Status dexamethasone (Decadron) injection 4 mgIndications:Numbness and tingling in left hand 4 mg IX Once 11/11/2024 11/11/2024 End ed lidocaine (Xylocaine) 1 % injection 1 mLIndications:Numbness and tingling in left hand 1 mL IJ Once 11/11/2024 11/11/2024 End ed Active Problems Problem Noted Date Diagnosed Date Acute kidney failure, unspecified 10/10/2024 Type 2 diabetes mellitus wit h diabetic neuropathy, unspecified 05/27/2024 Chronic kidney disease, stage 3 unspecified 01/2024 Hyperlipidemia 11/27/2023 Gastroesophageal reflux disease 11/27/2023 Essential hypertension 11/27/2023 Anxiety 11/27/2023 Cervical disc disorder at C5-C6 level with radic ulopathy 04/01/2022 Overview (04/01/2022): Added automatically from request for surgery [id number] Encounters Date Type Department Care Team Description 11/11/2024 10:50 AM EDT Office Visit [facility] [address] [place] [address] Berenice Silver MD Numbness and tingling in left hand (Primary Dx) 11/11/2024 Travel 10/27/2024 Telephone [facility] [address] [place] [address] Berenice Silver MD [facility] - Patient Message 10/20/2024 1:37 PM EDT - 10/20/2024 11:59 PM EDT Hospital Encounter [facility] [address] [place] [address] Numbness and tingling in left hand Discharge Disposition: Home or Self Care 10/20/2024 Travel 09/28/2024 10:40 AM EDT Office Visit [facility] [place] [address] Berenice Silver MD Numbness and tingling in left hand (Primary Dx) 09/28/2024 Travel 09/22/2024 11:00 AM EDT Procedure Visit [facility] [address] [place] [address] Geovany Sampson MD Numbness 09/22/2024 Travel from Last 3 Months Immunizations Immunization Administration Dates Next Due Influenza, seasonal, injectable, [...] Pulse 80 11/11/2024 10:12 AM EDT Temperature 36.6 C (97.8 F) 07/04/2024 12:34 PM EST Respiratory Rate 16 09/22/2024 11:03 AM EDT Oxygen Saturation 98% 11/11/2024 10:12 AM EDT Inhaled Oxygen Concentration - - Weight 95.3 kg (210 lb) 11/11/2024 10:12 AM EDT Height 165.1 cm (5' 5 ) 11/11/2024 10:12 AM EDT Body Mass Index 34.95 11/11/2024 10:12 AM EDT Plan of Treatment Upcoming Encounters Date Type Department Care Team (Late st Contact Info) Description 11/18/2024 10:20 AM EDT Office Visit [facility] [address] [place] [address] Christine Deng, FINANCE INTERN [address] [facility] [address] [place] [address] 12/14/2024 10:30 AM EDT Office Visit [facility] [address] [place] [address] Berenice Silver MD [address] [place] [address] Health Maintenance Due Date Last Done Comments Dental Oral Exam 1962 Dental Prophylaxis 1962 Dental X-Ray: Bitewings 1962 Dental X-Ray: Full Mouth 1962 [facility]-HIV Screening 1962 [facility]-/Child/Adol SDOH Screenings 1962 Diabetes: Dental Exam 1972 [facility]- SDOH Screenings 1980 [facility]-Adult SDOH Screenings 1980 [facility]-Pneumococcal Vaccine: 50+ Years (1 of 2 - PCV) 1981 [facility]-DTaP,Tdap,and Td Vaccines (1 - Tdap) 08/09/1996 08/08/1996 CT Colonography 12/21/2007 Colonoscopy 12/21/2007 FIT-DNA 12/21/2007 FIT 12/21/2007 FOBT 12/21/2007 Sigmoidoscopy 12/21/2007 [facility]-Colorectal Cancer Screening 12/21/2007 [facility]-Zoster Vaccines (1 of 2) 2012 [facility]-Lung Cancer Screening 10/26/2020 10/27/2019 [facility]-Diabetes: Hemoglobin A1C 09/29/2022, 12/04/2016, 05/23/2016 [facility]-RSV Vaccine: 60+ Years or (1 - Risk 60-74 years 1-dose series) 2022 [id number] Vaccine ( - season) 2024 09/19/2020, 08/22/2020 [facility]-Influenza Vaccine (Season Ended) 2025 04/19/2018 [facility]-Depression Screening 09/22/2025 09/22/2024 [facility]-Hepatitis C Screening Completed 10/27/2019 [facility]-Obesity Intervention Completed 025, 09/28/2024, 09/22/2024, Additional history exists HPV Vaccines Aged Out No longer eligi ble based on patient's age to complete this topic [facility]-HIB Vaccines Aged Out No longer e [...] EDT Numbness and tingling in left hand EMG / NERVE CONDUCTION STUDY Routine 09/22/2024 11:00 AM EDT Numbness HEMOGLOBIN A1C Routine 04/01/2022 11:28 AM EDT Neck pain Cervical disc disorder at C5-C6 level with radiculopathy CT ANGIO PULMONARY EMBOLISM Routine 10/27/2019 2:46 PM EDT HEPATITIS C ANTIBODY - ED W/REFLEX TO HCV QUANT PCR Routine 10/27/2019 1:10 PM EDT from Last 3 Months or Most Recently Relevant to Health Maintenance Results * US Extremity Limited MSK or [...] Stephanie HOFF IMG US PROCEDURES Final Result * EMG / NERVE CONDUCTION STUDY (09/22/2024 [...] Stephanie HOFF NEUROLOGY ORDERABLES Final Res ult * (ABNORMAL) Hemoglobin A1c (04/01/2022 11:28 AM EDT) Hemoglobin A1c 6.9(H) <5.7 % 04/01/2022 2:45 PM EDT [facility] Blood Venous blood specimen / Unknown Venipuncture / Unknown 04/01/2022 11:28 AM EDT 04/01/2022 11:29 AM EDT Narrative [facility] - 04/01/2022 2:45 PM EDT HA1C Interpretive Data: Diagnosis of Diabetes: Diabetic > or = 6.5% Pre-diabetic 5.7 to 6.4% Non-diabetic < or = 5.6% Glycemic Targets for Type I and Type II Diabetics: Non- Adults <7.0% Adults <6.0% Children and Adolescents <7.5% Source: [place] [employer]. Standards of medical care in diabetes,2017. Diabetes Care.2017:40 (suppl 1):S1-S135. HbA1c assay performed by an ion-exchange chromatography method that is certified traceable to the DCCT. us Hilton Maria MD LAB BLOOD ORDERA BLES Final Result [facility] [address] [place] [address] * CT Angio Pulmonary Embolism (10/27/2019 2:46 [...] the final edited report. Verified by: BIGG FOFANA M.D. on Oct 27 2019 3:17P Transcribed b y: PSCB on Oct 27 2019 2:50P Dictated by: FRANCES WEEMS M.D. on Oct 27 2019 2:50P Procedure Note Bigg Fofana Te-An - 10/02/2020 REQUESTING PHYSICIAN: BIGG FLORES [...] the final edited report. Verified by: BIGG FOFANA M.D. on Oct 27 2019 3:17P Transcribed b y: PSCB on Oct 27 2019 2:50P Dictated by: FRANCES WEEMS M.D. on Oct 27 2019 2:50P Bigg Flores IMG CT PROCEDURES Final Result * [place] Hepatitis C Antibody (10/27/2019 1:10 PM EDT) [place] Hepatitis C Ab NEGATIVE Reference Range: Negative SUNQUEST 10/27/2019 1:10 PM EDT 10/27/2019 1:19 PM EDT Bigg Flores LAB BLOOD ORDERABLES Final Resul t SUNQUEST from Last 3 Months or Most Recently Relevant to Health Maintenance Insurance [place] [id number] [facility] MEDICAID Care Teams Ski Maker Wood Relationship Specialty Start Date End Date Philip Khan MD [address] [place] [id number] PCP - General Internal Medicine 04/01/22 Hilton Maria MD [address] [place] [address] Surgeon Neurosurgery 04/01/22
--- OUTSIDE RECORDS SUMMARY | 2024-11-17 10:35 | XMS_ITS | Continuity of Care Document ---
Author Organization [facility] [place] Address [address] [place] [address] Care Team Providers Care Marine Engineering Technicians Name Role Phone KYLER HOLLOWAY Primary Care Provider [phone] Assessment No assessment recorded. Plan of Treatment Reminders Order Date Submit Date Provider Last Modified By Organization Details Last Modified Time Details Appointments Establish ed Visit 15 min 2024 09:15A M Kyler Holloway MD Not available Not available Not available Lab None recorded. Referral None recorded. Procedures None recorded. Surgeries None recorded. Imaging None recorded. Medication Orders None recorded. Patient TargetsNo targets recorded. Patient InstructionsNo instructions recorded. Reason for Referral None Reported. Problems Name Problem SNOMED Code Status Onset Date Resolution Date Notes Provider Name and Address Organization Details Recorded Time Chronic obstructive pulmonary disease 03348971 Active 2023 MATILDE Nunn - [facility] - [place] & [place] 4 16:22:45 Chronic back pain 849157158 Active 2023 MATILDE Nunn - [facility] - [facility] & [place] 4 16:22:55 Anxiety 52939659 Active 2023 MATILDE Nunn - [facility] - [facility] & [place] 4 16:23:05 Coronary atheroscleros is 007494267 Active 2023 MATILDE Nunn - [facility] - [facility] & [place] 4 16:23:26 Essential hypertension 77460650 Active 2023 MATILDE Nunn - [facility] - [place] & [place] 4 16:23:37 Neuropathy due to diabetes mellitus 693605075 Active 2023 Nancy nguyen, MATILDE - [facility] - [place] & [place] 4 16:23:50 Hyperlipidemi a 16519804 Active 2023 Nancy nguyen, MATILDE - [facility] - [place] & [place] 4 16:24:02 Gastroesophag eal reflux disease 006975594 Active 2023 Nancy nguyen, MATILDE - [facility] - [place] & [place] 4 16:24:39 Insomnia 632093166 Active 2023 Nancy nguyen, MATILDE - [facility] - [place] & [place] 4 16:24:48 Problem Notes None recorded. Procedures 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 Date Name Laterality Status Provider Name and Address Organization Details Recorded Time 2019 Colonoscopy completed Debraodalis CLAYTON - [facility] - [place] & [place] 4 13:18:37 2019 esophagogastroduodenoscopy completed Juan odalis CLAYTON - [facility] - [place] & [place] 4 13:18:55 2018 catheterization of left heart completed Lindsay Rothamer [place] - [facility] - [place] & [place] 4 13:26:09 2016 destruction of lesion of heart completed Lindsay [place]amer [place] - [facility] - [place] & [place] 4 13:25:03 2013 procedure on knee completed Lindsay [place] - [facility] - [place] & [place] 4 13:19:36 2011 procedure on shoulder completed Lindsay [place]amer [place] - [facility] - [place] & [place] 4 13:20:13 2008 Cholecystectomy completed Lindsay Rothamer [place] - [facility] - [place] & [place] 4 13:19:14 Imaging Results None recorded. Procedure Notes None recorded. Medical Equipment None Reported. Allergies Allergen ID Allergen Name Allergen Category Reaction Reaction Severity Criticality Documentation Date Start Date Code Code System Note Provider Name and Address Organization Details Recorded Time 162008 naproxen medicatio n hives nausea vomiting Not available Not available Not available Not available 07/06/2023 7258 RxNorm laure nguyen, MATILDE - [facility] & [place] 4 09:50:08 045008 tramadol medicatio n hives nausea Not available Not available Not available 07/06/2023 54111 RxNorm laure nguyen, MATILDE - [facility] & [place] 4 09:50:10 Medications Name Sig Start Date [...] Not Available methocarbam ol 500 mg tablet 07/05 completed Not Available Not Available Not Available atorvastati n 20 mg tablet 07/06 completed Not Available Not Available Not Available ibuprofen 800 mg tablet 07/06 completed Not Available Not Available Not Available tizanidine 4 mg tablet TAKE 1 TABLET BY MOUTH 3 TIMES A DAY NEEDED active Not Available Not Available No t Available doxepin 25 mg capsule 05/27 completed Not Available Not Available Not Available chlorzoxazo ne 500 mg tablet 07/06 completed Not Available Not Available Not Available hydrocodone 5 mg-acetamin ophen 325 mg tablet TAKE ONE TABLET BY MOUTH TWICE DAILY NEEDED FOR BREAKTHRO UGH POST OP PAIN MAY CAUSE DROWSINES S 05/27 completed Not Available Not Available Not Available ondansetron HCl 8 mg tablet take as needed for nausea 11/23 completed Not Available Not Available Not Available meloxicam 15 mg tablet Take 1 tablet every day by oral route as directed, for left knee pain. active Not Available Not Available No t Available FreeStyle Lancets 28 gauge USE DIRECTED [...] Available Not Available clopidogrel 75 mg tablet TAKE ONE TABLET BY MOUTH ONCE A DAY active Not Available Not Available No t Available doxepin 10 mg capsule Take 1 pill prior to bedtime. If not improving after 10 days, may take 2 pills nightly 05/27 completed Not Available Not Available Not Available amitriptyli ne 50 mg tablet TAKE ONE TABLET BY MOUTH EVERY DAY 05/27 completed Not Available Not Available Not Available ketorolac 10 mg tablet 07/06 completed Not Available Not Available Not Available pantoprazol e 20 mg tablet,yenny yed release Take 1 tablet twice a day by oral route as directed. 05/27 completed Not Available Not Available Not Available isosorbide mononitrate ER 60 mg tablet,exte nded release 24 hr TAKE ONE TABLET BY MOUTH ONCE A DAY active Not Available Not Available No t Available famotidine 20 mg tablet TAKE ONE TABLET BY MOUTH EVERY DAY active Not Available Not Available No t Available amitriptyli ne 25 mg tablet Take 1 tablet every day by oral route at bedtime, for sleep. 05/27 completed Not Available Not Available Not Available temazepam 15 mg capsule Take 1-2 capsules prn sleep qhs 08/25 completed Not Available Not Available Not Available torsemide 100 mg tablet TAKE 1/2 TABLET BY MOUTH EVERY DAY active Not Available Not Available No t Available oxycodone-a cetaminophe n 10 mg-325 mg tablet 07/06 completed Not Available Not Available Not Available gabapentin 800 mg tablet Take 1 tablet 3 times a day by oral route as directed, for periphera l neuropath y. 2024 active Not Available Not Available Not Avai lable baclofen 10 mg tablet TAKE 1 TABLET BY MOUTH 3 TIMES A DAY active Not Available Not Available No t Available pantoprazol e 40 mg tablet,yenny yed release 07/06 completed Not Available Not Available Not Available trazodone 150 mg tablet 07/06 completed Not Available Not Available Not Available lidocaine 5 % topical patch Apply 1 patch every 12 hours by topical route as needed. active Not Available Not Available No t Available lisinopril 5 mg tablet TAKE ONE TABLET BY MOUTH ONCE A DAY active Not Available Not Available No t Available mirtazapine 15 mg tablet TAKE ONE TABLET BY MOUTH EVERY DAY AT BEDTIME 07/06 completed Not Available Not Available Not Available ergocalcife rol (vitamin D2) 1,250 mcg (50,000 unit) capsule TAKE ONE CAPSULE BY MOUTH EVERY WEEK active Not Available Not Available No t Available zolpidem 10 mg tablet TAKE ONE TABLET BY MOUTH AT BEDTIME FOR SLEEP active Not Available Not Available No t Available albuterol sulfate HFA 90 mcg/actuati on aerosol inhaler INHALE 2 PUFFS BY MOUTH FOUR TIMES A DAY NEEDED FOR SHORTNESS OF BREATH OR WHEEZING active Not Available Not Available No t Available spironolact one 50 mg tablet TAKE ONE TABLET BY MOUTH ONCE A DAY active Not Available Not Available No t Available metoclopram davion 10 mg tablet 05/27 completed Not Available Not Available Not Available hydroxyzine pamoate 25 mg capsule 05/27 completed Not Available Not Available Not Available cyclobenzap rine 5 mg tablet 07/06 completed Not Available Not Available Not Available rosuvastati n 20 mg tablet 07/06 completed Not Available Not Available Not Available rosuvastati n 40 mg tablet TAKE ONE TABLET BY MOUTH ONCE A DAY active Not Available Not Available No t Available metoprolol tartrate 25 mg tablet TAKE ONE TABLET BY MOUTH 2 TIMES A DAY FOR HYPERTENS ION active Not Available Not Available No t Available Spiriva with HandiHaler 18 mcg and inhalation capsules INHALE THE CONTENTS OF 1 CAPSULE VIA HANDIHALE R ONCE DAILY DIRECTED 08/25 completed Not Available Not Available Not Available BD Ultra-Fine Mini Pen Needle 31 gauge x 3/16 USE DIRECTED 2023 active Not Available Not Available Not Avai lable 8 Hour Pain Reliever 650 mg tablet,exte nded release 08/25 completed Not Available Not Available Not Available BD Ultra-Fine Short Pen Needle 31 gauge x 5/16 USE directed active Not Available Not Available No t Available Januvia 100 mg tablet TAKE ONE TABLET BY MOUTH ONCE A DAY 05/27 completed Not Available Not Available Not Available FreeStyle Lite Meter kit active Not Available Not Available Not Available FreeStyle Lite Strips USE DIRECTED active Not Available Not Available No t Available cholecalcif cielo (vitamin D3) 1,250 mcg (50,000 unit) capsule TAKE ONE CAPSULE BY MOUTH ONCE A WEEK 07/06 completed Not Available Not Available Not Available Lantus Solostar U-100 Insulin 100 unit/mL (3 mL) subcutaneou s pen Inject 35 units every day by subcutane ous route at bedtime, for diabetes. 2024 active Not Available Not Available Not Avai lable ranolazine ER 1,000 mg tablet,exte nded release,12 hr 07/06 completed Not Available Not Available Not Available Humalog KwikPen (U-100) Insulin 100 unit/mL subcutaneou s After checking blood sugar, Inject as follows [...] recheck in 30-60 minMax daily dose-50 units active Not Available Not Available No t Available oxycodone 10 mg tablet TAKE 1 TABLET BY MOUTH 3 TIMES A DAY active Not Available Not Available No t Available GaviLyte-G 236 gram-22.74 gram-6.74 gram-5.86 gram oral solution 08/25 completed Not Available Not Available Not Available Stimulant Laxative Plus 8.6 mg-50 mg tablet TAKE ONE TABLET BY MOUTH TWICE DAILY NEEDED FOR constipat ion active Not Available Not Available No t Available Jardiance 25 mg tablet TAKE ONE TABLET BY MOUTH ONCE A DAY active Not Available Not Available No t Available Ozempic 0.25 mg or 0.5 mg (2 mg/1.5 mL) subcutaneou s pen injector 07/06 completed Not Available Not Available Not Available Lidocaine Pain Relief 4 % topical patch APPLY 1 PATCH TOPICALLY TO MOST PAINFUL AREA AND LEAVE ON FOR 12 HOURS THEN REMOVE AND LEAVE OFF FOR 12 HOURS active Not Available Not Available No t Available Mounjaro 2.5 mg/0.5 mL subcutaneou s pen injector INJECT 2.5 MG SUBCUTANE OUSLY ONCE WEEKLY 05/27 completed Not Available Not Available Not Available FreeStyle Joselito 3 Sensor device USE DIRECTED EVERY 14 DAYS active Not Available Not Available No t Available Ozempic 0.25 mg or 0.5 mg (2 mg/3 mL) subcutaneou s pen injector 07/06 completed Not Available Not Available Not Available Clenpiq 10 mg-3.5 gram-12 gram/175 mL oral solution take as directed 11/23 completed Not Available Not Available Not Available FreeStyle Joselito 3 [place] active Not Available Not Available Not Available Vitals Date Recorded Body height Body mass index (BMI) Body weight Body temperature Oxygen saturation Oxygen saturation in Arterial blood by Pulse oximetry Heart rate Systolic blood pressure Diastolic blood pressure Provider Name and Address Organization Details Last Updated DateTime 165.1 cm 36.3 kg/m2 34702.1 4 g 97.8 [degF] 99 % 99 % 95 /min 130 mm[Hg] 82 mm[Hg] Zaira Mendoza [facility] & [place] 13:07:30 Social History Question Answer Notes LastModified by Organizat ion Details LastModified Time Tobacco Smoking Status Former Smoker Sera Weeks wendy, [facility] & [place] 01/14/2024 14:09:33 Do You Have An Advance Directive? No Information not available 01/14/2024 Are You Blind Or Do You Have Difficulty Seeing? Yes [email or web address] Information not available 01/14/2024 What Is Your Level Of Caffeine Consumption? Moderate [email or web address] Information not available 07/06/2023 What Was The Date Of Your Most Recent Tobacco Screening? 11/24/2023 [email or web address] Information not available 01/14/2024 Are You Passively Exposed To Smoke? No [email or web address] Information not available 01/14/2024 How Much Tobacco Do You Smoke? No [email or web address] Information not available 01/14/2024 How Many Years Have You Smoked Tobacco? 4 [email or web address] Information not available 01/14/2024 Sex: Unknown Functional Status Question Answer Note LastModified by Organizat ion Details LastModified Time Do you use any illicit or recreational drugs? No [email or web address] Information not available 01/14/2024 What is your level of alcohol consumption? Occasional Information not available 07/06/2023 Do you or have you ever used smokeless tobacco? Never used smokeless tobacco [email or web address] Information not available 01/14/2024 What is your exercise level? Occasional [email or web address] Information not available 01/14/2024 Mental Status Question Answer Note LastModified by Organization D etails LastModified Time Do you feel stressed (tense, restless, nervous, or anxious, or unable to sleep at night)? [id number] [email or web address] Information not available 01/14/2024 Family History Relationship Description Onset Age of this Age Resolved Age Notes LastModified by Organization Details LastModified Time Mother Coronary arterioscler osis [email or web address] Not available 08/07 14:20:04 Mother Hypertensive disorder [email or web address] Not available 2023 18:42:21 Mother Myocardial infarction [email or web address] Not available 09/16 18:42:29 Mother Family member [email or web address] Not available 08/07 14:20:04 Mother Heart disease [email or web address] Not available 07/28 08:00:31 Father Diabetes mellitus [email or web address] Not available 08/07 14:20:04 Father Hypertensive disorder [email or web address] Not available 2023 18:42:47 Father Cerebrovascu lar accident [email or web address] Not available 04/2024 18:43:01 Father Family member [email or web address] Not available 08/07 14:20:04 Sister Myocardial infarction [email or web address] Not available 09/16 18:43:06 Sister Malignant neoplastic disease x2 [email or web address] Not available 08/07 14:20:04 Sister Heart disease [email or web address] Not available 07/28 08:00:31 Brother Cerebrovascu lar accident [email or web address] Not available 04/2024 18:43:15 Brother Hypertensive disorder [email or web address] Not available 2023 18:43:19 Brother Diabetes mellitus [email or web address] Not available 08/07 14:20:04 Notes:4 brothers, 6 sisters, 1 son, 3 daughters, Medical History Condition Response Coronary Artery Disease Y Other Y Kidney or Bladder Problems Y COPD Y Osteoporosis/Osteopenia Y Constipation Y Spine Problems Y Heart Attack (NH) Y Obstructive Sleep Apnea Y Diabetes Y [...] dose or 50 mcg/0.25mL dose 1 completed Nancy nguyen [place] - [facility] - [place] & [place] 07/06/2023 12:46:08 COVID-19, mRNA, LNP-S, PF, 100 mcg/0.5mL dose or 50 mcg/0.25mL dose 1 completed MATILDE Nunn - [facility] - [place] & [place] 07/06/2023 12:46:08 Influenza, split virus, trivalent, PF 8 completed MATILDE Nunn - [facility] - [place] & [place] 07/06/2023 12:46:08 Td (adult), 2 Lf tetanus toxoid, preservative free, adsorbed 7 completed MATILDE Nunn - [facility] - [place] & [place] 07/06/2023 12:46:08 Past Encounters Encounter ID Performer Location Encounter Start Date Encounter Closed Date Diagnosis/Indication Diagnosis SNOMED-CT Code Diagnosis ICD10 Code Diagnosis Note [id number] MD Ke Kay [facility] [place] [address] [place] [address] 10/17/2024 10:52:22 10/17/2024 13:54:10 Type 2 diabetes mellitus 19688194 E11.9 A1C in hospital was 6.9% Given his early AM low BS's, will decrease his Lantus from 35 units nightly to 30 units nightly while continuing Jardiance and meal-time Humalog if needed Acute kidney injury 1466 9001 N17.9 unsure what his numbers from the hospital look like. We will request copy of labs as well as CT a discharge summary. For now he remains on Jardiance, lisinopril and torsemide. Nausea 054430144 R11.0 unsure of initial etiology. Appears to be resolved with no significan t sequelae. No need for further workup or medication s at this time. [id number] Kyler Holloway MD [facility] [place] [address] [place] [address] 11/11/2024 12:53:19 11/11/2024 13:32:52 Nausea, vomiting and diarrhea 1385771 R11.2 R19.7 resolved. Still on loperamide and ondansetro n p.r.n. keep appointmen t with Dr. Robin later this month. We will request ER records, labs and imaging results from [facility]. Health Concerns Section Related Observation LastModified by Organization Detai ls LastModified Time None Recorded Concern Status LastModified by Organization Details LastModified Time None Recorded Payers Encounter Date Sequence Insurance Name Policy Number Policy Dietrich Covered Member ID Dietrich Member ID Guarantor Name 11/11/2024 1 [facility] (MEDICAID REPLACEMENT - HMO) [id number] Seamus Persaud [id number] Seamus Persaud Notes Date Note Type Note Provider Name and Address Organization Details Recorded Time 11/11/2024 text/html Pt presents for F/U after being seen at [facility] ER on THU, 2 days earlier for vomiting and diarrhea. 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 Has a F/U appt scheduled with GI Dr. Robin in [place] on 11/29/24 at 12 noon. No change in meds other than some loperamide for the diarrhea and ondansetron for the nausea Kyler Holloway MD [address] [facility], [place], [address], [facility] & [place] 11/11/2024 13:39:02
--- OUTSIDE RECORDS SUMMARY | 2024-11-17 10:35 | XMS_ITS | Encounter Summary ---
Author Organization Healthcare Address [address] [place] [address] Care Team Providers Care Technical Translator Name Role Phone Hilton Maria MD Unavailable Philip Khan MD Primary Care Provider + [phone] Encounter Details Date Type Department Care Team (Late Contact Info) Description 01/21/2023 Orders Only External Location [address] [place] [address] Enrico Flores MD [address] [place] [address] [address] [place] [address] Social History Tobacco Use Types Packs/Day [...] Department Care Team (Late Contact Info) Description 11/18/2024 10:20 AM EDT Office Visit [facility] [address] [place] [phone] Christine Deng, WAFER CUTTER [address] [facility] [address] [place] [address] 12/14/2024 10:30 AM EDT Office Visit Terrie Ruiz [address] [place] [id number] Berenice Silver MD [address] [place] [address] documented as of this encounter [...] documented as of this encounter Care Teams Technical Translator Relationship Specialty Start Date End Date Philip Khan MD [address] [place] [address] PCP - General Internal Medicine 04/01/22 Hilton Maria MD [address] [place] [address] Surgeon Neurosurgery 04/01/22 documented as of this encounter
--- OUTSIDE RECORDS SUMMARY | 2024-11-17 10:36 | XMS_ITS | Continuity of Care Document ---
Author Organization [facility] - [place] Address [address] [place] [place] [address] Care Team Providers Care Ground Support Equipment Assembler Name Role Phone KYLER HOLLOWAY Primary Care Provider Assessment No assessment recorded. Plan of Treatment [...] 100 unit/mL (3 mL) subcutane ous pen 2024 025 [facility], [address] [place] [address], [id number], 10/17/2024 11:41:54 Patient TargetsNo targets recorded. Patient InstructionsNo instructions recorded. Reason for Referral None Reported. Problems Name Problem SNOMED Code Status Onset Date Resolution Date Notes Provider Name and Address Organization Details Recorded Time Chronic obstructive pulmonary disease 36162769 Active 2023 MATILDE Nunn [facility] & [place] 4 16:22:45 Chronic back pain 107082266 Active 2023 MATILDE Nunn [facility] & [place] 4 16:22:55 Anxiety 13647807 Active 2023 MATILDE Nunn [facility] & [place] 4 16:23:05 Coronary atheroscleros is 835328338 Active 2023 Nancybarbie Treadwell null, [place] - [facility] - [place] & [place] 4 16:23:26 Essential hypertension 14885573 Active 2023 Nancy Treadwell null, [place] - [facility] - [facility] & [place] 4 16:23:37 Neuropathy due to diabetes mellitus 376497100 Active 2023 Nancybarbie Treadwell null, [place] - [facility] - [facility] & [place] 4 16:23:50 Hyperlipidemi a 61511971 Active 2023 Nancybarbie Treadwell null, [place] - [facility] - [facility] & [place] 4 16:24:02 Gastroesophag eal reflux disease 338169589 Active 2023 Nancybarbie Treadwell null, [place] - [place] & [place] 4 16:24:39 Insomnia 393823871 Active 2023 Nancybarbie Treadwell null, [place] - [facility] - [place] & [place] 4 16:24:48 Problem Notes None recorded. Procedures 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 Date Name Laterality Status Provider Name and Address Organization Details Recorded Time 2019 Colonoscopy completed Debra Jaramillo [place] - [place] - [place] & [place] 4 13:18:37 2019 esophagogastroduodenoscopy completed Juan Jaramillo [place] - [place] & [place] 4 13:18:55 2018 catheterization of left heart completed Lindsay Rothamer [place] - [facility] - [place] & [place] 4 13:26:09 2016 destruction of lesion of heart completed Lindsay Rothamer [place] - [facility] - [place] & [place] 4 13:25:03 2013 procedure on knee completed Lindsay Rothamer [place] - [facility] - [facility] & [place] 4 13:19:36 2011 procedure on shoulder completed Lindsay Rothamer [place] - [facility] - [facility] & [place] 4 13:20:13 2008 Cholecystectomy completed Lindsay Roberson [facility] - [place] & [place] 4 13:19:14 Imaging Results None recorded. Procedure Notes None recorded. Medical Equipment None Reported. Allergies Allergen ID Allergen Name Allergen Category Reaction Reaction Severity Criticality Documentation Date Start Date Code Code System Note Provider Name and Address Organization Details Recorded Time 748631 naproxen medicatio n hives nausea vomiting Not available Not available Not available Not available 07/06/2023 7258 RxNorm criti calit y cole nguyen, MATILDE - [facility] & [place] 4 09:50:08 726633 tramadol medicatio n hives nausea Not available Not available Not available 07/06/2023 49221 RxNorm criti kim nguyen, [place]IL[place] - [facility] & [place] 4 09:50:10 Medications Name Sig [...] Not Available Not Available FreeStyle Joselito 3 [place] active Not Available Not Available Not Available Vitals Date Recorded Body height Body mass index (BMI) Body weight Body temperature Oxygen saturation Oxygen saturation in Arterial blood by Pulse oximetry Heart rate Systolic blood pressure Diastolic blood pressure Provider Name and Address Organization Details Last Updated DateTime 165.1 cm 35.8 kg/m2 04025.3 7 g 98.2 [degF] 98 % 98 % 110 /min 102 mm[Hg] 60 mm[Hg] Sera Narayanan [facility] & [place] 11:03:36 Social History Question Answer Notes LastModified by Organizat ion Details LastModified Time Tobacco Smoking Status Former Smoker Sera Weeks wendy, [facility] & [place] 01/14/2024 14:09:33 Do You Have An Advance Directive? No [email or web address] Information not available 01/14/2024 Are You Blind Or Do You Have Difficulty Seeing? Yes [email or web address] Information not available 01/14/2024 What Is Your Level Of Caffeine Consumption? Moderate Information not available 07/06/2023 What Was The Date Of Your Most Recent Tobacco Screening? 11/24/2023 [email or web address] Information not available 01/14/2024 Are You Passively Exposed To Smoke? No [email or web address] Information not available 01/14/2024 How Much Tobacco Do You Smoke? No [email or web address] Information not available 01/14/2024 How Many Years Have You Smoked Tobacco? 4 [email or web address] Information not available 01/14/2024 Sex: Unknown Functional Status Question Answer Note LastModified by Organizat ion Details LastModified Time Do you use any illicit or recreational drugs? No [email or web address] Information not available 01/14/2024 What is your level of alcohol consumption? Occasional [email or web address] Information not available 07/06/2023 Do you or have you ever used smokeless tobacco? Never used smokeless tobacco [email or web address] Information not available 01/14/2024 What is your exercise level? Occasional [email or web address] Information not available 01/14/2024 Mental Status Question Answer Note LastModified by Organization D etails LastModified Time Do you feel stressed (tense, restless, nervous, or anxious, or unable to sleep at night)? [id number] [email or web address] Information not available 01/14/2024 Family History Relationship Description Onset Age of this Age Resolved Age Notes LastModified by Organization Details LastModified Time Mother Coronary arterioscler osis [email or web address] Not available 08/07 14:20:04 Mother Hypertensive disorder [email or web address] Not available 2023 18:42:21 Mother Myocardial infarction [email or web address] Not available 09/16 18:42:29 Mother Family member [email or web address] Not available 08/07 14:20:04 Mother Heart disease [email or web address] Not available 07/28 08:00:31 Father Diabetes mellitus [email or web address] Not available 08/07 14:20:04 Father Hypertensive disorder [email or web address] Not available 2023 18:42:47 Father Cerebrovascu lar accident [email or web address] Not available 04/2024 18:43:01 Father Family member [email or web address] Not available 08/07 14:20:04 Sister Myocardial infarction [email or web address] Not available 09/16 18:43:06 Sister Malignant neoplastic disease x2 [email or web address] Not available 08/07 14:20:04 Sister Heart disease [email or web address] Not available 07/28 08:00:31 Brother Cerebrovascu lar accident [email or web address] Not available 04/2024 18:43:15 Brother Hypertensive disorder [email or web address] Not available 2023 18:43:19 Brother Diabetes mellitus [email or web address] Not available 08/07 14:20:04 Notes:4 brothers, 6 sisters, 1 son, 3 daughters, Medical History Condition Response Coronary Artery Disease Y Other Y Kidney or Bladder Problems Y COPD Y Osteoporosis/Osteopenia Y Constipation Y Spine Problems Y Heart Attack (IN) Y Obstructive Sleep Apnea Y Diabetes Y [...] 1 completed MATILDE Nunn - [facility] - [place] & [place] 07/06/2023 12:46:08 COVID-19, mRNA, LNP-S, PF, 100 mcg/0.5mL dose or 50 mcg/0.25mL dose 1 completed MATILDE Nunn - [facility] - [place] & [place] 07/06/2023 12:46:08 Influenza, split virus, trivalent, PF 8 completed MATILDE Nunn - [facility] - [place] & [place] 07/06/2023 12:46:08 Td (adult), 2 Lf tetanus toxoid, preservative free, adsorbed 7 completed MATILDE Nunn - [facility] - [place] & [place] 07/06/2023 12:46:08 Past Encounters Encounter ID Performer Location Encounter Start Date Encounter Closed Date Diagnosis/Indication Diagnosis SNOMED-CT Code Diagnosis ICD10 Code Diagnosis Note [id number] MD Ke Kay [facility] [place] [address] [place] [phone] 10/17/2024 10:52:22 10/17/2024 13:54:10 Type 2 diabetes mellitus 66186388 E11.9 A1C in hospital was 6.9% Given [...] remains on Jardiance, lisinopril and torsemide. Nausea 190542124 R11.0 unsure of initial etiology. Appears to be resolved with no significan t sequelae. No need for further workup or medication s at this time. Health Concerns Section Related Observation LastModified by Organization Detai ls LastModified Time None Recorded Concern Status LastModified by Organization Details LastModified Time None Recorded Payers Encounter Date Sequence Insurance Name Policy Number Policy Dietrich Covered Member ID Dietrich Member ID Guarantor Name 10/17/2024 1 [facility] ([place] REPLAC[place] - [place]MO) [id number] Seamus Persaud [id number] Seamus Persaud Notes Date Note Type Note Provider Name and Address Organization Details Recorded Time 10/17/2024 text/html Pt presents for Hospitalization F/U. Was admitted on October 08, and D/C'd 2 days later on ThuOctober 10. F/U appt scheduled October 14 for today-October 17. Initial c/o stomach pain and vomiting. Admitted with N/V, found to be hyperglycemic and with TISHA. Is concerned about reimbursement spec low BS readings (69 or even lower). Currently on Lantus 35 units nightly in addition to his mealtime insulin of Humalog and daily Jardiance. States nausea and vomiting have resolved and he is now eating and drinking well difficulty. Kyler Holloway MD [address], [place], [address], [facility] [place] & [place] 10/17/2024 12:58:46
--- OUTSIDE RECORDS SUMMARY | 2024-11-17 10:36 | XMS_ITS | Encounter Summary ---
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) Deonte Kraft MD [facility] [place] [address] Phone: tel: fax: [facility] [address] [place] [phone] Phone: tel: fax: Referral ID Status Reason Start Date Expiration Date Visits Requested Visits Authorized [id number] Authorized Specialty Services Required 4 11/17/2025 1 1 Encounter Details Date Type Department Care Team (Late st Contact Info) Description 05/18/2024 [facility] [address] [place] [address] Deonte Kraft MD [address] [place] [address] 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) (Primary Dx) Social History Tobacco Use [...] Description 11/18/2024 10:20 AM EDT Office Visit [facility] [address] [place] [phone] Christine Deng, BROOCH AND BRACELET MAKER [address] [facility] [address] [place] [address] 12/14/2024 10:30 AM EDT Office Visit Terrie Ruiz [address] [place] [address] Berenice Silver MD [address] [phone] Scheduled Referrals Name Type Priority Associated Diagnoses Order Schedule Ambulatory referral to Endocrinology Outpatient Referral Routine 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) Expected: 05/18/2024 (Approximate), Expires: 11/16/2025 documented as of this encounter Visit Diagnoses Diagnosis 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)- Primary Type II or unspecified type diabetes mellitus with renal manifestations, not stated as uncontrolled documented in this encounter Additional Health Concerns Assessment Noted Time A fall risk assessment has been complete d for the patient 04/01/2022 9:09 AM EDT A Body Mass Index follow-up plan has been documented for the patient 04/15/2024 1:06 PM EST documented as of this encounter Care Teams Manager Quality Relationship Specialty Start Date End Date Philip Khan MD [address] [place] [address] PCP - General Internal Medicine 04/01/22 Hilton Maria MD [address] [place] [address] Surgeon Neurosurgery 04/01/22 documented as of this encounter
--- OUTSIDE RECORDS SUMMARY | 2024-11-17 10:36 | XMS_ITS | Encounter Summary ---
Author Organization [facility] Address [address] [place] [address] Care Team Providers Care Train Examiner Name Role Phone Hilton Maria MD Unavailable Philip Khan MD Primary Care Provider + [phone] Encounter Details Date Type Department Care Team (Latest Contact Info) Description 09/22/2024 Travel Social History Tobacco Use Types Packs/Day [...] on file documented as of this encounter Functional Status * Over the [...] No Risk Indicated 09/22/2024 11:14 AM EDT [place], Mary Carmen M, LINING FELLER BLINDSTITCH * If you checked off any problems [...] Domingo LPN documented as of this encounter Plan of Treatment Upcoming Encounters Date Type Department Care Team (Late st Contact Info) Description 11/18/2024 10:20 AM EDT Office Visit [facility] [address] [place] [phone] Christine Deng, INFECTION CONTROL PREVENTIONIST [address] [facility] [address] [place] [address] 12/14/2024 10:30 AM EDT Office Visit Terrie Ruzi [address] [place] [phone] Berenice Silver MD [address] [address] documented as of this encounter Visit Diagnoses Not on filedocumented in this encounter Additional Health Concerns Assessment Noted Time A fall risk assessment has been complete d for the patient 09/22/2024 11:14 AM EDT A Body Mass Index follow-up plan has been documented for the patient 09/23/2024 9:35 AM EDT documented as of this encounter Care Teams Train Examiner Relationship Specialty Start Date End Date Philip Khan MD [address] [place] [address] PCP - General Internal Medicine 04/01/22 Hilton Maria MD [address] [place] [address] Surgeon Neurosurgery 04/01/22 documented as of this encounter
--- OUTSIDE RECORDS SUMMARY | 2024-11-17 10:36 | XMS_ITS | Encounter Summary ---
Author Organization Healthcare Address [address] [place] [address] Care Team Providers Care Shoe Shiner Name Role Phone Hilton Maria MD Unavailable Philip Khan MD Primary Care Provider + [phone] Encounter Details Date Type Department Care Team (Latest Contact Info) Description 10/20/2024 Travel Social History Tobacco Use Types Packs/Day Years Used Date Smoking Tobacco: Former Cigarettes 1.5 30 - 2018 Passive Smoke Exposure: Past Smokeless [...] Description 11/18/2024 10:20 AM EDT Office Visit [facility] [address] [place] [phone] Christine Deng, GRID CASTING MACHINE OPERATOR HELPER [address] [address] 12/14/2024 10:30 AM EDT Office Visit [facility] Joseph [address] [place] [address] Berenice Silver MD [address] [place] [phone] documented as of this encounter Visit Diagnoses Not on filedocumented in this encounter Additional Health Concerns Assessment Noted Time A fall risk assessment has been complete d for the patient 09/22/2024 11:14 AM EDT A Body Mass Index follow-up plan has been documented for the patient 10/04/2024 12:00 PM EDT documented as of this encounter Care Teams Shoe Shiner Relationship Specialty Start Date End Date Philip Khan MD [address] [place] [address] PCP - General Internal Medicine 04/01/22 Hilton Maria MD [address] [place] [address] Surgeon Neurosurgery 04/01/22 documented as of this encounter
--- OUTSIDE RECORDS SUMMARY | 2024-11-17 10:36 | XMS_ITS | Encounter Summary ---
Author Organization Healthcare Address [address] [place] [address] Care Team Providers Care Plastics Sheet Finishing Press Operator Name Role Phone Hilton Maria MD Unavailable Philip Khan MD Primary Care Provider + [phone] Reason for Referral * Consultation (Routine) - Closed Specialty Diagnoses / Procedures Referred By Contac t Referred To Contact Nephrology Diagnoses Stage 3b chronic kidney disease (CMS/HCC) Kyler Holloway MD [address] [address] Phone: tel: fax: Kirby Colin MD [address] [address] Phone: tel: fax: Referral ID Status Reason Start Date Expiration Date V isits Requested Visits Authorized [id number] Closed Specialty Services Required 02/16/2024 08/17/2025 1 1 Encounter Details Date Type Department Care Team (Late st Contact Info) Description 02/16/2024 Community [facility] [address] [place] [phone] Kyler Holloway MD 105 [facility] [address] [place] [address] Stage 3b chronic kidney disease [...] Description 11/18/2024 10:20 AM EDT Office Visit [facility] [address] [place] [phone] Christine Deng, REJECT OPENER [address] [facility] [address] [place] [address] 12/14/2024 10:30 AM EDT Office Visit Terrie [facility] [address] [place] [address] Berenice Silver MD [address] [phone] Scheduled Referrals Name Type Priority Associated Diagnoses [...] documented as of this encounter Care Teams Plastics Sheet Finishing Press Operator Relationship Specialty Start Date End Date Philip Khan MD [address] [place] [address] PCP - General Internal Medicine 04/01/22 Hilton Maria MD [address] [place] [address] Surgeon Neurosurgery 04/01/22 documented as of this encounter
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
--- OUTSIDE RECORDS SUMMARY | 2024-11-17 10:36 | XMS_ITS | Encounter Summary ---
Author Organization Healthcare Address [address] [place] [address] Care Team Providers Care Bulk Pigment Reducer Name Role Phone Hilton Maria MD Unavailable Philip Khan MD Primary Care Provider + [phone] Encounter Details Date Type Department Care Team (Latest Contact Info) Description 09/28/2024 Travel Social History Tobacco Use Types Packs/Day [...] Description 11/18/2024 10:20 AM EDT Office Visit [facility] [address] [place] [phone] Christine Deng, FIRE BEHAVIOR ANALYST [address] [address] 12/14/2024 10:30 AM EDT Office Visit [facility]ha[facility]el[facility] Joseph [address] [place] [address] Berenice Silver MD [address] [place] [phone] documented as of this encounter Visit Diagnoses Not on filedocumented in this encounter Additional Health Concerns Assessment Noted Time A fall risk assessment has been complete d for the patient 09/22/2024 11:14 AM EDT A Body Mass Index follow-up plan has been documented for the patient 10/04/2024 12:00 PM EDT documented as of this encounter Care Teams Bulk Pigment Reducer Relationship Specialty Start Date End Date Philip Khan MD [address] [place] [address] PCP - General Internal Medicine 04/01/22 Hilton Maria MD [address] [place] [address] Surgeon Neurosurgery 04/01/22 documented as of this encounter
--- OUTSIDE RECORDS SUMMARY | 2024-11-17 10:37 | XMS_ITS | Encounter Summary ---
Author Organization Healthcare Address [address] [place] [address] Care Team Providers Care Contract Associate Name Role Phone Hilton Maria MD Unavailable Philip Khan MD Primary Care Provider + [phone] Reason for Visit * Reason Onset Date Comments HCN - Patient Message 10/27/2024 Encounter Details Date Type Department Care Team (Late st Contact Info) Description 10/27/2024 Telephone [facility] [address] [place] [address] Berenice Silver MD [address] [address] HCN - Patient Message Social History Tobacco Use Types Packs/Day Years [...] encounter Miscellaneous Notes * Telephone Encounter - Mary Lawson RN - 10/27/2024 9:51 AM EDT Called pt, scheduled for f/u with Dr. Silver. * Telephone Encounter - Dorita Tolbert - 10/27/2024 9:10 AM EDT Clinical Concern/Question Reason for Call: Nadeem patient requesting return call to go over ultrasound results Best contact number: [phone] (mobile) Optimal time of day to reach caller: ANYTIME Additional comments/information from caller: None Note: Please do not reply to this message. Follow-up communication and further actions as a result of this message need to be communicated with the patient directly, if the patient is not active onMyChart. If the patient is active on MyChart, they will receive notification of the communication/outcome via [employer]. documented in this encounter Plan of Treatment Upcoming Encounters Date Type Department Care Team (Late st Contact Info) Description 11/18/2024 10:20 AM EDT Office Visit [facility] [address] [place] [address] Christine Deng, COUNTY SURVEYOR [address] [address] 12/14/2024 10:30 AM EDT Office Visit [facility] [address] [place] [phone] Berenice Silver MD [address] [phone] documented as of this encounter Visit Diagnoses Not on filedocumented in this encounter Additional Health Concerns Assessment Noted Time A fall risk assessment has been complete d for the patient 09/22/2024 11:14 AM EDT A Body Mass Index follow-up plan has been documented for the patient 10/04/2024 12:00 PM EDT documented as of this encounter Care Teams Contract Associate Relationship Specialty Start Date End Date Philip Khan MD [address] [place], [place] [address] PCP - General Internal Medicine 04/01/22 Hilton Maria MD [address] [place] [address] Surgeon Neurosurgery 04/01/22 documented as of this encounter
--- OUTSIDE RECORDS SUMMARY | 2024-11-17 10:37 | XMS_ITS | Data Portability ---
Author Organization [place] - [facility] & [facility] ADMIN Address [address] [place] [address] Care Team Providers Care Printing Film Stripper Name Role Phone KYLER HOLLOWAY Primary Care Provider [phone] Assessment No assessment recorded. Plan of Treatment Reminders Order Date Submit Date Provider Last Modified By Organization Details Last Modified Time Details Appointments Establish ed Visit 15 min 2024 09:15A M Kyler Holloway MD Not available Not available Not available Lab HbA1c (hemoglob in A1c), blood 2024 025 [email or web address] [facility], [address], [place], [address], 08/25/2024 20:53:57 microalbu min/creat inine, mass ratio, urine 2024 025 [email or web address] [facility], [address], [place], [address], 08/26/2024 03:36:52 Referral None recorded. Procedures None recorded. Surgeries None recorded. Imaging None recorded. Medication Orders Lantus Solostar U-100 Insulin 100 unit/mL (3 mL) subcutane ous pen 2024 025 [facility], [address], [place], [place], [id number], 10/17/2024 11:41:54 zolpidem 10 mg tablet 2024 025 [email or web address] [facility], [address] [address] [place], [place], [id number], 08/25/2024 15:15:36 Restoril 15 mg capsule 2024 025 [email or web address] [facility], [facility] [address] [place], [id number], 08/25/2024 14:51:42 Lantus Solostar U-100 Insulin 100 unit/mL (3 mL) subcutane ous pen 2024 025 [email or web address] [facility], [facility] [address] [place], [id number], 07/05/2024 10:55:17 meloxicam 15 mg tablet 2024 025 [email or web address] [facility] [address], [place], [id number], 07/05/2024 10:55:19 Patient TargetsNo targets recorded. Patient Instructions Encounter Date Encounter Id Patient Instructions Last Modified By Organization Details Last Modified Time 06/10/2024 [id number] I spent greater than 30 minutes trying to assess patient in hospital, obtain notes from hospital in examining patient and exam room then finally reviewing his notes labs and imaging results from the hospital and documented in chart [email or web address] Not available 06/13/2024 13:43:10 Reason for Referral None Reported. Results Created Date Observation Date Name Description Value Unit Range Abnormal Flag Note LastModifiedBy Organization Detail LastModifiedTime 08/26/1908/26/2024 ALBUM IN/CR EAT RATIO , RANDHemant Mancilla UR creatinine, urine 53.6 mg/dL not estab. normal Not Available [facility] ([facility]) [address] [facility], [place], [address], 08/26/2024 03:36:52 08/26/19 25 08/26/2024 ALBUM IN/CR EAT RATIO , RANDHemant Mancilla UR albumin, urine 11.1 ug/mL not estab. Not Available [facility] ([facility]) [address] [facility], [place], [address], 08/26/2024 03:36:52 08/26/19 25 08/26/2024 ALBUM IN/CR EAT RATIO , GARTH Mancilla UR alb/creat ratio 21 mg/g_ creat 0-29 Ayah l: 0 - 29 Moder ately incre ased: 30 - 300 Sever mason incre ased: >300 Not Available [facility] ([facility]) [address], [place], [address], 08/26/2024 03:36:52 08/26/19 25 08/25/2024 HbA1c (hemo globi n A1c), blood HbA1c 7.0 Not Available [facility] [address], [place], [address], 08/25/2024 14:39:23 05/14/20 24 05/14/2024 XR, chest No observ ation record ed. [email or web address] [facility] [address], [place], [address], 09/16/2024 15:10:41 05/14/20 24 05/14/2024 CT, head + brain , w/o contr ast No observ ation record ed. [address], [place], [address], 09/22/2024 14:54:22 05/15/20 24 05/14/2024 elect kailey richardsongr am No observ ation record ed. [address], [place], [address], 09/22/2024 14:54:08 05/30/20 24 05/30/2024 XR, chest No observ ation record ed. [address], [place], [address], 09/22/2024 14:53:21 05/31/20 24 05/30/2024 elect kailey bernice am No observ ation record ed. [address], [place], [address], 09/22/2024 14:53:02 05/31/20 24 05/31/2024 US, doppl er, venou s No observ ation record ed. [address], [place], [address], 09/22/2024 14:52:51 05/31/20 24 05/31/2024 CT, chest + abdom en + pelvi s, w/o contr ast No observ ation record ed. [address], [place], [address], 09/22/2024 14:52:25 06/01/20 24 05/31/2024 exerc ise stres s echoc ardio gram No observ ation record ed. [address], [place], [address], 09/22/2024 14:51:43 Result Notes None recorded. Problems Name Problem SNOMED Code Status Onset Date Resolution Date Notes Provider Name and Address Organization Details Recorded Time Chronic obstructive pulmonary disease 03398584 Active 2023 KOTA N[place] - [facility] - [place] & [place] 4 16:22:45 Chronic back pain 512631199 Active 2023 Nancy nguyen [place] - [facility] [place] 4 16:22:55 Anxiety 67332826 Active 2023 Nancy nguyen, [place] - [facility] - [place] 4 16:23:05 Coronary atheroscleros is 490847671 Active 2023 Nancy nguyen, [place] - [facility] [place] [facility] [place] 4 16:23:26 Essential hypertension 44808149 Active 2023 Nancybarbie Treadwell null, [place] - [facility] [place] 4 16:23:37 Neuropathy due to diabetes mellitus 988519454 Active 2023 Nancy Treadwell null[place] [facility] [place] 4 16:23:50 Hyperlipidemi a 17065957 Active 2023 Nancy Treadwell null[place] [facility] [place] 4 16:24:02 Gastroesophag eal reflux disease 398363443 Active 2023 Nancybarbie Treadwell null, [place] [facility] [place] 4 16:24:39 Insomnia 693741315 Active 2023 Nancybarbie Treadwell null, [place] [facility] [place] 4 16:24:48 Problem Notes None recorded. Procedures 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 Date Name Laterality Status Provider Name and Address Organization Details Recorded Time 2019 Colonoscopy completed Debra Jaramillo [place] - [facility] [place] 4 13:18:37 2019 esophagogastroduodenoscopy completed Juan Jaramillo [place] - [facility] [place] 4 13:18:55 2018 catheterization of left heart completed Lindsay Rojoamer [place] - [facility] [place] 4 13:26:09 2016 destruction of lesion of heart completed Lindsay [place]amer [place] - [facility] [place] 4 13:25:03 2013 procedure on knee completed Lindsay [place] [facility] [place] 4 13:19:36 2011 procedure on shoulder completed Lindsay [place]amer [place] [facility] [place] 4 13:20:13 2008 Cholecystectomy completed Lindsay Rojoamer [place] - [facility] [place] 4 13:19:14 Imaging Results None recorded. Procedure Notes None recorded. Medical Equipment None Reported. Allergies Allergen ID Allergen Name Allergen Category Reaction Reaction Severity Criticality Documentation Date Start Date Code Code System Note Provider Name and Address Organization Details Recorded Time [id number] naproxen medicatio n hives nausea vomiting Not available Not available Not available Not available 07/06/2023 7258 RxNorm criti calit y cole Ferguson null, [place] - [facility] & [place] 4 09:50:08 843007 tramadol medicatio n hives nausea Not available Not available Not available 07/06/2023 94653 RxNorm criti calit compa Rojoamer null, [place] - [facility] & [place] 4 09:50:10 Medications Name Sig Start Date [...] Not Available Not Available FreeStyle Joselito 3 Concan active Not Available Not Available Not Available Vitals Date Recorded Body height Body mass index (BMI) Body weight Body temperature Oxygen saturation Oxygen saturation in Arterial blood by Pulse oximetry Heart rate Systolic blood pressure Diastolic blood pressure Provider Name and Address Organization Details Last Updated DateTime 5 165.1 cm 36.9 kg/m2 411962. 79 g 97.7 [degF] 96 % 96 % 97 /min 112 mm[Hg] 82 mm[Hg] Obdulia Quinn [facility] & [place] 5 11:11:27 Date Recorded Body height Body mass index (BMI) Body weight Body temperature Oxygen saturation Oxygen saturation in Arterial blood by Pulse oximetry Heart rate Systolic blood pressure Diastolic blood pressure Provider Name and Address Organization Details Last Updated DateTime 5 165.1 cm 37.6 kg/m2 870217. 88 g 97.7 [degF] 95 % 95 % 82 /min 116 mm[Hg] 81 mm[Hg] Lora Mcdonald [facility] & [place] 5 10:16:58 Date Recorded Body height Body weight Body temperature Oxygen saturation Oxygen saturation in Arterial blood by Pulse oximetry Heart rate Systolic blood pressure Diastolic blood pressure Provider Name and Address Organization Details Last Updated DateTime 5 165.1 cm 383825. 52 g 98.9 [degF] 96 % 96 % 78 /min 114 mm[Hg] 78 mm[Hg] Sera Narayanan [facility] & [place] 5 14:37:24 Date Recorded Body height Body mass index (BMI) Body weight Body temperature Oxygen saturation Oxygen saturation in Arterial blood by Pulse oximetry Heart rate Systolic blood pressure Diastolic blood pressure Provider Name and Address Organization Details Last Updated DateTime 5 165.1 cm 35.8 kg/m2 04554.3 7 g 98.2 [degF] 98 % 98 % 110 /min 102 mm[Hg] 60 mm[Hg] Sera Narayanan [facility] & [place] 5 11:03:36 Date Recorded Body height Body mass index (BMI) Body weight Body temperature Oxygen saturation Oxygen saturation in Arterial blood by Pulse oximetry Heart rate Systolic blood pressure Diastolic blood pressure Provider Name and Address Organization Details Last Updated DateTime 5 165.1 cm 36.3 kg/m2 21168.1 4 g 97.8 [degF] 99 % 99 % 95 /min 130 mm[Hg] 82 mm[Hg] Zaira Mendoza [facility] & [place] 5 13:07:30 Social History Question Answer Notes LastModified by Posse Details LastModified Time Tobacco Smoking Status [facility] [place] 01/14/2024 14:09:33 Do You Have An Advance Directive? No [email or web address] Information not available 01/14/2024 Are You Blind Or Do You Have Difficulty Seeing? Yes [email or web address] Information not available 01/14/2024 What Is Your Level Of Caffeine Consumption? Moderate [email or web address] Information not available 07/06/2023 What Was The Date Of Your Most Recent Tobacco Screening? 11/24/2023 [email or web address] Information not available 01/14/2024 Are You Passively Exposed To Smoke? No [email or web address] Information not available 01/14/2024 How Much Tobacco Do You Smoke? No [email or web address] Information not available 01/14/2024 How Many Years Have You Smoked Tobacco? 4 [email or web address] Information not available 01/14/2024 Sex: Unknown Functional Status Question Answer Note LastModified by Posse Details LastModified Time Do you use any illicit or recreational drugs? No [email or web address] Information not available 01/14/2024 What is your level of alcohol consumption? Occasional Information not available 07/06/2023 Do you or have you ever used smokeless tobacco? Never used smokeless tobacco [email or web address] Information not available 01/14/2024 What is your exercise level? Occasional [email or web address] Information not available 01/14/2024 Mental Status Question Answer Note LastModified by Organization D etails LastModified Time Do you feel stressed (tense, restless, nervous, or anxious, or unable to sleep at night)? [id number] Information not available 01/14/2024 Family History Relationship Description Onset Age of this Age Resolved Age Notes LastModified by Organization Details LastModified Time Mother Coronary arterioscler osis [email or web address] Not available 08/07 14:20:04 Mother Hypertensive disorder [email or web address] Not available 2023 18:42:21 Mother Myocardial infarction [email or web address] Not available 09/16 18:42:29 Mother Family member [email or web address] Not available 08/07 14:20:04 Mother Heart disease Not available 07/28 08:00:31 Father Diabetes mellitus [email or web address] Not available 08/07 14:20:04 Father Hypertensive disorder [email or web address] Not available 2023 18:42:47 Father Cerebrovascu lar accident [email or web address] Not available 04/2024 18:43:01 Father Family member [email or web address] Not available 08/07 14:20:04 Sister Myocardial infarction [email or web address] Not available 09/16 18:43:06 Sister Malignant neoplastic disease x2 [email or web address] Not available 08/07 14:20:04 Sister Heart disease [email or web address] Not available 07/28 08:00:31 Brother Cerebrovascu lar accident [email or web address] Not available 04/2024 18:43:15 Brother Hypertensive disorder [email or web address] Not available 2023 18:43:19 Brother Diabetes mellitus [email or web address] Not available 08/07 14:20:04 Notes:4 brothers, 6 sisters, 1 son, 3 daughters, Medical History Condition Response Coronary Artery Disease Y Other Y Kidney or Bladder Problems Y COPD Y Osteoporosis/Osteopenia Y Constipation Y Heart Attack ([place]) Y Spine Problems Y Obstructive Sleep Apnea Y Diabetes Y Muscle, Joint, or Bone Problems Y Obesity Y Vision or Eye Problems Y Arthritis Y Congestive Heart Failure (CHF) Y Cancer Y Back Problems Y Stroke Y Reflux/GERD Y High Cholesterol Y Headaches Y Hypertension Y Kidney Disease Y Immunizations Vaccine Type Date Status Note Provider Richard neri and Address Organization Details Recorded Time COVID-19, mRNA, LNP-S, PF, 100 mcg/0.5mL dose or 50 mcg/0.25mL dose 1 completed Nancy Treadwell null, [place] - [facility] [place] 07/06/2023 12:46:08 COVID-19, mRNA, LNP-S, PF, 100 mcg/0.5mL dose or 50 mcg/0.25mL dose 1 completed Nancy nguyen, [place] - [facility] [place] [facility] [place] 07/06/2023 12:46:08 Influenza, split virus, trivalent, PF 8 completed Nancy Treadwell null, [place] [facility] [place] 07/06/2023 12:46:08 Td (adult), 2 Lf tetanus toxoid, preservative free, adsorbed 7 completed Nancy nguyen, [place] [facility] [place] [facility] [place] 07/06/2023 12:46:08 Past Encounters Encounter ID Performer Location Encounter Start Date Encounter Closed Date Diagnosis/Indication Diagnosis SNOMED-CT Code Diagnosis ICD10 Code Diagnosis Note [id number] Kyler Holloway MD [address] [address] 07/06/2023 12:23:46 07/06/2023 13:32:16 Type 2 diabetes mellitus 15905518 E11.21 On Januvia and Jardiance. Will need to RTC for labs at some point: CBC, CMP, FLP, TSH, Vit D, A1c Diabetic p eripheral neuropathy 974651822 E11.40 on gabapentin Essential hypertension 91414922 I10 on lisinopril Hyperlipidemia 76651648 E78.5 on rosuvastat in Gastroesop hageal reflux disease 865121007 K21.9 on pantoprazo le and famotidine Coronary arteriosclerosis 75656508 I25.[address] Gonzalez in [place]. On Clopidogre l, Isorbide mononitrat e. Anxiety 15465534 F41.9 Has been on quetiapine qhs and clonazepam bid. Have given him Christine Alvarado's contact info Chronic back pain 574851 002 G89.29 on oxycodone per [facility] Chronic ob structive pulmonary disease 51404073 J44.9 On spiriva and Ventolin-S ees Pulmonolog ist in [place]- Dr. Gutierrez [id number] Kyler Holloway MD [facility] [address] [place] [address] 10/05/2023 08:52:45 10/05/2023 09:44:20 Type 2 diabetes mellitus 33114666 E11.21 On Januvia and Jardiance. Will need to RTC for labs tomorrow: CBC, CMP, FLP, TSH, Vit D, A1c Hyperlipidemia 01819922 E78.5 on rosuvastat in. Cont. Check FLP Diabetic p eripheral neuropathy 215989313 E11.40 on gabapentin 800 tid. RF today Essential hypertension 75449010 I10 on lisinopril . Cont Gastroesop hageal reflux disease 005629224 K21.9 on pantoprazo le and famotidine . Cont Coronary arteriosclerosis 29639171 I25.[address] Gonzalez in [place]. On Clopidogre l, Isorbide mononitrat e. Anxiety 59649383 F41.9 On clonazepam bid. D/C'ing Seroquel Has not contacted Christine Ni Chronic back pain 549209 002 G89.29 on oxycodone per [facility] Chronic ob structive pulmonary disease 70996537 J44.9 On spiriva and Ventolin-S ees Pulmonolog ist in [place]- Dr. Gutierrez Insomnia 457816953 G47.0 9 D/C Seroquel and try amitriptyl ine. See back in 1 month [id number] Kyler Holloway MD [facility] [place] [address] [facility] [place] [address] 10/06/2023 09:18:37 10/06/2023 09:42:02 Essential hypertension 60579031 I10 on lisinopril . Cont [id number] Kyler Holloway MD [facility] [address] [facility] [place] [address] 10/27/2023 15:40:29 10/27/2023 16:43:34 Insomnia 723572864 G47.09 increase amitriptyl ine to 50 mg Gastroesop hageal reflux disease 858587841 K21.9 on pantoprazo le and famotidine . Cont Type 2 krystin betes mellitus 60181117 E11.21 A1C from 10/05 was 11.5 %. Already on Januvia and Jardiance. Could not tolerate metformin or Ozempic. Will start on night time insulin but cont Januvia and Jardiance for now. Hyperlipidemia 74371386 E78.5 on rosuvastat in. Diabetic p eripheral neuropathy 049557054 E11.40 on gabapentin 800 tid. Essential hypertension 70307353 I10 On low dose lisinopril and metoprolol Coronary arteriosclerosis 12922345 I25.[address] Gonzalez in [place]. On Clopidogre l, Isorbide mononitrat e. Anxiety 20581070 F41.9 Off clonazepam and Seroquel. Does not want to see Christine Dan due to daughter having had a bad experience . rec [facility] -number given Chronic back pain 105153 002 G89.29 on oxycodone per [facility] Chronic ob structive pulmonary disease 77916515 J44.9 On spiriva and Ventolin-S ees Pulmonolog ist in [place]- Dr. Gutierrez [id number] Kyler Holloway MD [facility] [address] [facility] [place] [address] 11/27/2023 15:48:15 11/27/2023 16:36:39 Type 2 diabetes mellitus 59024753 E11.21 A1c was 11.1%. with a random blood sugar today of 270 I believe we can safely iIncrease Lantus to 22 units at bedtime while continuing Jardiance 25and Januvia 221 [id number] Kyler Holloway MD [facility] [address] [facility] [place] [address] 01/28/2024 09:39:31 01/28/2024 13:15:51 Type 2 diabetes mellitus 87351606 E11.21 A1c was 11.1%. At his last visit. Lantus was increased to 22 units at bedtime while continuing Jardiance 25 and Januvia 100. He has gained 15 lb over the last 2 months according to our scales here. We will need to recheck hemoglobin A1c with other labs today as well as urine albumin creatinine . Hyperlipidemia 91855497 E78.5 On rosuvastat in 40 mg daily. Check lipid panel Insomnia 074064076 G47.0 9 Currently on amitriptyl ine 50 mg . We will continue Essential hypertension 09642384 I10 BP was low today at 95/59 . Currently on low dose lisinopril 5 mg and metoprolol 25 mg. May need to discontinu e 1 or the other. Diabetic p eripheral neuropathy 958374893 E11.40 on gabapentin 800 tid. we will continue [id number] Kyler Holloway MD [facility] [address] [facility] [place] [address] 02/11/2024 15:44:52 02/11/2024 17:23:00 Type 2 diabetes mellitus 63851971 E11.21 the A1c is improved obviously this is still not well controlled despite being on 2 oral agents as well as long-actin g insulin. Would like to see if he can tolerate Mounjaro where he could not tolerate the Ozempic so we will start him on a 2.5 mg IM weekly and follow up in a month Insomnia 560630081 G47.0 9 did not respond to amitriptyl ine. Therefore, would like to try doxepin 10 mg at bedtime increasing to 20 mg in 10 days if not improving Chronic ki dney disease stage 3B 067696533 N18.32 I do not really have a good explanatio n for his acute declining kidney function as his medication s have remained stable. Would like to refer to nephrology . He states there is a nephrologi st in [place] so we will refer him there for further evaluation [id number] Kyler Holloway MD [address] [place] [address] 04/11/2024 10:47:00 04/11/2024 12:03:08 Acute pancreatitis 645407032 K85.90 I was able to review his ER note and labs which showed a lipase of [address] a normal abdominal CT. Check F/U labs. Go ahead and check amylase and lipase today. Hold Mounjaro. Peripheral edema 9039575 00 R60.9 ON 2 diuretics- torsemide and spironolac tone. Needs labs. [id number] Kyler Holloway MD [address] [place] [address] 05/17/2024 10:36:11 05/17/2024 12:11:41 Type 2 diabetes mellitus 77248974 E11.21 A1c from hospital was 11.1%. We will continue increase Lantus at 35 units and Continue the Jardiance 25 mg daily. Discontinu e Mounjaro which I do not think he has been on for the past few weeks. We will start Humalog sliding scale. A sample give a freestyle Joselito 3+ as well as script for another sensor and reader. We will need to come back next week or the following week to review how he is doing on his current regimen. We will need to refer to endocrinol ogy [id number] Kyler Holloway MD [address] [place] [address] 05/27/2024 13:34:18 05/27/2024 14:39:23 Type 2 diabetes mellitus 27856701 E11.21 A1c from hospital was 11.1%. currently on sliding scale insulin and Jardiance 25 mg as well as Lantus 35 u qhs. Needs to be on this new regimen for 3 months before we recheck an A1c and see how he is doing. He is on the Joselito 3 so he is able to check his sugars much more frequently now Diabetic p eripheral neuropathy 885688951 E11.40 Just refilled gabapentin 800 tid on 05/24. Essential hypertension 98826600 I10 BP was Better today at 114/68. Currently he remains on low dose lisinopril 5 mg and metoprolol 25 mg as well as isosorbide mononitrat e ER 60. [id number] Kyler Holloway MD [facility] [address] [facility] [address] [place] [address] 06/10/2024 11:04:31 06/10/2024 11:59:25 Chest pain 75050407 R07.[address] Gonzalez, cardiologi , in [place]. Post-disch arge follow-up 511716877 Z09 After patient left I was able to obtain hospital records which indicates he was admitted at [facility] on 05/30 with a complaint of chest pain and discharged on 06/01. He was noted to be hypotensiv e during admission with acute kidney insufficie ncy. He had an EKG as well as echo and blood work as well as chest CT with PE protocol, chest x-ray and lower extremity Dopplers which showed no PE. Ruled out for any WA. EF was 55%. Diabetes was also noted to be uncontroll ed and long-actin g insulin was reinstitut ed along with sliding scale. In addition patient was seen in the ER post discharge on 06/04 with complaint of back pain and was treated with Toradol, methocarba mol and lidocaine patches. Low blood pressure 76992 003 I95.9 Improved. BP is 112/82 Acute kidney injury 1466 9001 N17.9 Improved. Remains on lisinopril and torsemide Chronic low back pain 27 3131239 M54.50 Stable [id number] Kyler Holloway MD [facility] [address] [facility] [place] [address] 07/05/2024 10:01:39 07/05/2024 11:04:52 Type 2 diabetes mellitus 34006563 E11.21 I have asked patient to check his blood sugars 1 hour after he eats in the morning and in the evening and see what kind of numbers he is getting. He is currently on Lantus 35 units at night and Jardiance 25 mg daily. [facility] We will plan on following him up in August with repeat A1c at that time Arthritis of left knee 8714193437 073759 M13.862 Try meloxicam Insomnia 960305726 G47.0 9 Has not responded to doxepin, amitriptyl ine, mirtazapin e, trazodone or Seroquil. Will try Restoril [id number] Kyler Holloway MD [facility] [place] [address] [facility] [place] [address] 08/25/2024 14:19:48 08/25/2024 15:06:48 Type 2 diabetes mellitus 51432579 E11.9 A1C today has improved from 11.1 back in May when he was in the hospital to 7.0 % today. We will continue Lantus at 35 units nightly along with Jardiance 25 mg daily and sliding scale regular insulin at mealtime. We were able to get a urine sample today for albumin creatinine ratio Insomnia 344665357 G47.0 9 Has failed multiple meds including trazodone, doxepin, amitriptyl ine, mirtazapin e, Seroquil, and temazepam. Give trial of Ambien as a last resort- Food insecurity [id number] Z59.41 Had JARRETT Sanders speak with pt regarding [employer] [id number] Kyler Holloway MD [facility] [address] [facility] [place] [address] 10/17/2024 10:52:22 10/17/2024 13:54:10 Type 2 diabetes mellitus [id number] E11.9 A1C in hospital was 6.9% Given [...] remains on Jardiance, lisinopril and torsemide. Nausea [id number] R11.0 unsure of initial etiology. Appears to be resolved with no significan t sequelae. No need for further workup or medication s at this time. [id number] MD [facility] [address] [place] [address] 11/11/2024 12:53:19 11/11/2024 13:32:52 Nausea, vomiting and diarrhea 1840497 R11.2 R19.7 resolved. Still on loperamide and ondansetro n p.r.n. keep appointmen t with Dr. Robin later this month. We will request ER records, labs and imaging results from [facility]. Health Concerns Section Related Observation LastModified by Organization Detai ls LastModified Time None Recorded Concern Status LastModified by Organization Details LastModified Time None Recorded Advance Directives Directive N: Payers Insurance Date Sequence Insurance Name Policy Number Policy Dietrich Covered Member ID Dietrich Member ID Guarantor Name 09/28/2024 1 [employer] [place] ([place] Seamus Persaud [id number] Seamus Persaud 09/28/2024 1 [place] [id number] Seamus Persaud [id number] Seamus Persaud 09/28/2024 1 [place] [id number] Seamus Persaud [id number] Seamus Persaud 09/28/2024 [employer] Seamus Persaud 11/10/2024 1 [id number] Seamus Persaud [id number] Seamus Persaud Notes Date Note Type Note Provider Name and Address Organization Details Recorded Time 06/10/2024 text/html Pt presents for F/U from hospitalization at [facility] between and . When asked why he was hospitalized he can not exactly say. It sounds as though he was hospitalized for a day or 2 and then returned and seen in the ER. He brings with him no paperwork and his recollection of the events as very sketchy making him a very poor historian. He states he has a valve leaking in his heart. Also states his kidney function was worse. States he was placed on a heart monitor. Also had echo. States he did not see Dr. Gonzalez while hospitalized and does not have a F/U appt. Kyler Holloway MD [address], [place], [address], [facility] 06/13/2024 13:44:14 07/05/2024 text/html 63 yo with diffi cult to treat diabetes presents for F/U . Brings in some recent preprandial sugar readings from morning and evening most all of which appear to be less than 100. Also c/o left knee pain. Already on pain meds for back. also states he is having trouble sleeping. He has been on at least 5 different agents and apparently none of them have worked. Kyler Holloway MD [address], [place], [address] & [place] 07/06/2024 20:44:06 08/25/2024 text/html Pt presents for 3 month check. Currently taking lantus 35 units qhs, Jardiance 25 mg qd and SS at mealtime which he has not had to take very much. Does not feel like taking 2 units for a BS just above 150 helps very much. BP is good today. Is interested in a food program called [employer] . also continues to complain of insomnia Kyler Holloway MD [address], [place], [address], [facility] 08/25/2024 22:55:41 10/17/2024 text/html Pt presents for Hospitalization F/U. Was admitted on October 08, and D/C'd 2 days later on ThuOctober 10. F/U appt scheduled October 14 for today-October 17. Initial c/o stomach pain and vomiting. Admitted with N/V, found to be hyperglycemic and with TISHA. 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 Currently on Lantus 35 units nightly in addition to his mealtime insulin of Humalog and daily Jardiance. States nausea and vomiting have resolved and he is now eating and drinking well difficulty. Kyler Holloway MD [address], [place], [address], [facility] & [place] 10/17/2024 12:58:46 11/11/2024 text/html Pt presents for F/U after being seen at [facility] ER on THU, 2 days earlier for vomiting and diarrhea. 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 Has a F/U appt scheduled with GI Dr. Robin in [place] on 11/29/24 at 12 noon. No change in meds other than some loperamide for the diarrhea and ondansetron for the nausea Kyler Holloway MD [address] [facility], [place], [address], [facility] [place] & [place] 11/11/2024 13:39:02
--- OUTSIDE RECORDS SUMMARY | 2024-11-17 10:37 | XMS_ITS | Encounter Summary ---
Author Organization Healthcare Address [address] [place] [address] Care Team Providers Care Mechanical Engineering Technician Name Role Phone Hilton Maria MD Unavailable Philip Khan MD Primary Care Provider + [phone] Encounter Details Date Type Department Care Team (Latest Contact Info) Description 11/11/2024 Travel Social History Tobacco Use Types Packs/Day [...] Description 11/18/2024 10:20 AM EDT Office Visit [facility] [address] [place] [phone] Christine Deng, QUARRY PLANT CRUSHER OPERATOR [address] [address] 12/14/2024 10:30 AM EDT Office Visit [facility] [address] [place] [address] Berenice Silver MD [address] [place] [address], [place] [address] documented as of this encounter Visit Diagnoses Not on filedocumented in this encounter Additional Health Concerns Assessment Noted Time A fall risk assessment has been complete d for the patient 09/22/2024 11:14 AM EDT A Body Mass Index follow-up plan has been documented for the patient 11/11/2024 11:29 AM EDT documented as of this encounter Care Teams Mechanical Engineering Technician Relationship Specialty Start Date End Date Philip Khan MD [address] [place] [address] PCP - General Internal Medicine 04/01/22 Hilton Maria MD [address] [place] [address] Surgeon Neurosurgery 04/01/22 documented as of this encounter
[2024-11-17 10:43] LABS: Appearance,Urine CLEAR (Clear); Bilirubin,Urine Negative (Negative); Blood, Urine Negative (Negative); Color,Urine OTHER (Yellow); Glucose,Urine (UA) 2+ (Negative); Ketones,Urine Negative (Negative); Leukocyte Esterase,Urine Negative (Negative); Nitrate,Urine Negative (Negative); Protein,Urine Negative (Negative); Urobilinogen,Urine 0.2 EU/dl (0.2)
[2024-11-17 10:46] LABS: Hematocrit 39.4 % (42.0-52.0); Hemoglobin 12.8 g/dL (14.1-18.0); Mean Corpuscular HGB Conc 32.5 g/dL (31.8-35.4); Mean Corpuscular Volume 95.4 fl (80-94); Nucleated Red Blood Cells # 0 10^3/uL; Nucleated Red Blood Cells % 0 %; Platelet Count 267 K/mm3 (142-424); Red Blood Count 4.13 M/mm3 (4.60-6.20); Red Cell Distribution Width 14.4 % (11.5-17.5); Red Cell Distribution Width-SD 49.9 fL; White Blood Count 4.2 K/mm3 (4.8-10.8)
[2024-11-17 11:10] LABS: Creatinine,Urine Random 4 mg/dL (Not Estab.)
[2024-11-17 11:18] LABS: 25-OH Vitamin D, Total 46.9 ng/mL (30-100)
[2024-11-17 11:22] LABS: Albumin Level 4.1 g/dl (3.5-5.0); Anion Gap 9.2 mEq/L (5-15); Blood Urea Nitrogen 15 mg/dl (9-20); Calcium 9.1 mg/dl (8.4-10.2); Carbon Dioxide 27 mmol/L (22.0-30.0); Chloride 104 mmol/L (98-107); Estimated Glomerular Filt Rate 62 ml/min (>60); GFR (African American) 74 ML/MIN (>60); Glucose 133 mg/dl (74-100); Phosphorous 4.4 mg/dl (2.5-4.5); Potassium 4.2 mmoL/L (3.5-5.1); Sodium 136 mmol/L (136-145)
[2024-11-17 11:35] LABS: Intact Parathyroid Hormone 143.1 pg/mL (7.5-53.5)
== END 2024-11-17 23:59 | disposition home or self-care (01) ==
LOC: LAB 10:13
PROVIDERS: PCP Family Medicine; Visit Provider Nurse Practitioner
DX: N18.32 Chronic kidney disease, stage 3b (principal); N39.0 Urinary tract infection, site not specified
CPT/HCPCS: 36415; 80069; 81001; 82306; 82570; 83970; 84156; 85027

== ENCOUNTER 2024-11-29 12:42 | Outpatient (CLI) | payer OTHER, SELFPAY ==
--- OUTSIDE RECORDS SUMMARY | 2024-10-20 13:37 | XMS_ITS | Encounter Summary ---
Author Organization Healthcare Address [address] [place] [address] Care Team Providers Care Tile Ditcher Name Role Phone Hilton Maria MD Unavailable Philip Khan MD Primary Care Provider + [phone] Reason for Referral * Imaging (Routine) - Closed Specialty Diagnoses / Procedures Referred By Contac susan Referred To Contact Radiology Diagnoses Numbness and tingling in left hand Procedures US Extremity Limited MSK or Soft Tissue Bilateral; Forearm (median nerve bilateral) Stephanie Torres PA [address] [address] Phone: tel: fax: Referral ID Status Reason Start Date Expiration Date Visits Re quested Visits Authorized [id number] Closed 09/28/2024 03/30/2026 1 1 Reason for Visit * Imaging (Routine) - Closed Specialty Diagnoses / Procedures Referred By Fran davis Referred To Contact Radiology Diagnoses Numbness and tingling in left hand Procedures US Extremity Limited MSK or Soft Tissue Bilateral; Forearm (median nerve bilateral) Stephanie Torres PA [address] [address] Phone: tel: fax: Referral ID Status Reason Start Date Expiration Date Visits Re quested Visits Authorized [id number] Closed 09/28/2024 03/30/2026 1 1 Encounter Details Date Type Department Care Team (Latest Contact Info) Description 10/20/2024 1:37 PM EDT - 10/20/2024 11:59 PM EDT Hospital Encounter [facility] [address] [place] [address] Numbness and tingling in left hand Discharge [...] time. 07/17/2016 ergocalciferol (Vitamin D-2) 1.25 MG (02845 UT) capsule Take 1 capsule (50,000 Units) [...] 12/14/2024 10:30 AM EDT Office Visit [facility] [address] [place] [phone] Berenice Silver MD [address] [place] [address] 06/16/2025 8:20 AM EST Office Visit [facility] [address] [place] [address] Christine Deng, FRYER LINE HELPER [address] [address] documented as of this encounter [...] documented as of this encounter Care Teams Tile Ditcher Relationship Specialty Start Date End Date Philip Khan MD [address] [place] [address] PCP - General Internal Medicine 04/01/22 Hilton Maria MD [address] [place] [address] Surgeon Neurosurgery 04/01/22 documented as of this encounter
--- OUTSIDE RECORDS SUMMARY | 2024-11-11 10:50 | XMS_ITS | Encounter Summary ---
Author Organization Healthcare Address [address] [place] [address] Care Team Providers Care Revenue Integrity Analyst Name Role Phone Hilton Maria MD Unavailable Philip Khan MD Primary Care Provider + [phone] Reason for Visit * Reason Comments Follow-up Encounter Details Date Type Department Care Team (Late st Contact Info) Description 11/11/2024 10:50 AM EDT Office Visit [facility] [address] [place] [phone] Berenice Silver MD [address] [address] Numbness and tingling in [...] with PMHx of DM, CKD, COPD, prior CT/CVA, C2-C3 cervical stenosis, C5-C6 osteophyte formation and radiculopathy who presents for further evaluation of his bilateral hand numbness/paresthesia. He reports numbness of his left ring and small fingers for a few years and states he underwent leftendoscopic carpal tunnel release (12/21/23) in [place] for this. He states since then, he [...] form which was reviewed and scanned into [employer]. Negative for bleeding disorders, clotting disorders or [...] able to form a composite fist, weakened flexographic printing machinist strength. Two Point Discrimination Thumb Index Long [...] latency to the median nerve fibers electrophysiologically [id number] Median to ulnar crossover with a Jcarlos [...] The patient tolerated injection(s) well. I did supervisor counseling and guidance the patient that, after the lidocaine wears [...] pneumonia Sleep apnea intolerant to cpap. Stroke (CMS/[facility]) had TIA 2015. Unspecified abdominal pain Stomach pain [2] Past 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: Procedure Laterality Date CHOLECYSTECTOMY N/A Cholecystectomy from [facility] GALLBLADDER SURGERY HAND SURGERY [id number] KNEE SURGERY N/A Knee Surgery from [facility] OTHER SURGICAL HISTORY N/A History of shoulder surgery from [facility] OTHER SURGICAL HISTORY N/A History of cholecystectomy from [facility] OTHER SURGICAL HISTORY N/A History of knee surgery from [facility] SHOULDER SURGERY N/A Shoulder Surgery from [facility] [3] Current Outpatient Medications Medication Sig Dispense [...] same time. ergocalciferol (Vitamin D-2) 1.25 MG (76582 UT) capsule Take 1 capsule (50,000 Units) [...] EDT Office Visit [facility] [address] [place] [phone] Berenice Silver MD [address] [phone] 06/16/2025 8:20 AM EST Office Visit [facility] [address] [place] [address] Christine Deng, RESOURCE MANAGER [address] [address] documented as of this encounter [...] documented as of this encounter Care Teams Revenue Integrity Analyst Relationship Specialty Start Date End Date Philip Khan MD [address] [place] [address] PCP - General Internal Medicine 04/01/22 Hilton Maria MD [address] [facility] [address] [place] [address] Surgeon Neurosurgery 04/01/22 documented as of this encounter
--- OUTSIDE RECORDS SUMMARY | 2024-11-18 10:20 | XMS_ITS | Encounter Summary ---
Author Organization [facility] Address [address] [place] [address] Care Team Providers Care Landscaping Manager Name Role Phone Hilton Maria MD Unavailable Philip Khan MD Primary Care Provider + [phone] Reason for Visit * Reason Comments Chronic Kidney Disease Pt is a 63 year o ld female that presents to the clinic on this date for a follow up over stage 3 chronic kidney disease. Encounter Details Date Type Department Care Team ([facility] st Contact Info) Description 11/18/2024 10:20 AM EDT Office Visit [facility] [address] [place] [address] Christine Deng, COLOR PASTE MIXING SUPERVISOR [address] [address] Stage 3b chronic kidney disease (CMS/HCC) (Primary Dx); Diabetes mellitus due to underlying condition with diabetic chronic kidney disease, unspecified CKD stage, unspecified whether intermediate manager insulin use (CMS/HCC); Essential hypertension; Chronic kidney disease-mineral and bone disorder Social History Tobacco Use Types Packs/Day Years [...] Sign Reading Time Taken Comments Blood Pressure 128/71 11/18/2024 10:31 AM EDT Pulse 68 11/18/2024 10:31 AM EDT Temperature - - Respiratory Rate 18 11/18/2024 10:31 AM EDT Oxygen Saturation 94% 11/18/2024 10:31 AM EDT Inhaled Oxygen Concentration - - Weight 97.5 kg (215 lb) 11/18/2024 10:31 AM EDT Height 167.6 cm (5' 6 ) 11/18/2024 10:31 AM EDT Body Mass Index 34.7 11/18/2024 10:31 AM EDT documented in this encounter Miscellaneous Notes * Progress Notes - Christine Deng, PRICILA - 11/18/2024 10:20 AM EDT SUBJECTIVE HISTORY OF PRESENT ILLNESS 63 y.o. [...] hesitancy, frequency, and incontinence. 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 No etoh. Smokes 1-2 packs until 2019. Recurrent pancreatitis Notes recent N/V with pancreatitis. Now resolved. Denies any new complaints or issues today. No CP,SOA, abd pain, n/v/d, headache, or dizziness. OBJECTIVE Vitals: 11/18/24 1031 BP: 128/71 Pulse: 68 Resp: 18 SpO2: 94% PHYSICAL EXAMINATION Physical Exam CONSTITUTIONAL: Conversant, well [...] PSYCH: Pleasant affect, appropriate mood LAB RESULTS Labs reviewed with patient from 11/17/24. Labs scanned into Media section IMAGING REPORT CT with contrast 2017, no abnormal kidney findings ASSESSMENT/PLAN CKD3 Creatinine baseline appears to be ~1.3-1.5, 1.2 on most recent labs HTN DM2 CKD BMD- PTH 143, vit D 46.9 --- likely vascular disease, renal function stable --- agree with current meds, monitor K on lisinopril and spironolactone ---continue Jardiance --- pth slightly elevated, ca/po4/vit d at goal. Will continue to follow RTC 6 mo with renal panel and urine protein ratio documented in this encounter Plan of Treatment Upcoming Encounters Date Type Department Care Team (Late st Contact Info) Description 12/14/2024 10:30 AM EDT Office Visit [facility] [address] [place] [phone] Berenice Silver MD [address] [place] [phone] 06/16/2025 8:20 AM EST Office Visit [facility] [address] [place] [address] Christine Deng APRN [address] [address] Scheduled Orders Name Type Priority Associated Diagnoses Orde r Schedule CBC W/O Differential Lab Routine Stage 3b chronic kidney disease ([facility]/HCC) Expected: 11/18/2024 (Approximate), Expires: 05/20/2026 Protein, Random, Urine with Creatinine Lab Routine Stage 3b chronic kidney disease ([facility]/HCC) Expected: 11/18/2024 (Approximate), Expires: 05/20/2026 PTH Intact Total Lab Routine Stage 3b chronic kidney disease ([facility]) Expected: 11/18/2024 (Approximate), Expires: 05/20/2026 Renal Function Panel, Plasma Lab Routine Stage 3b chronic kidney disease ([facility]) Expected: 11/18/2024 (Approximate), Expires: 05/20/2026 Urinalysis with reflex microscopic (Culture NOT Included) Lab Routine Stage 3b chronic kidney disease ([facility]) Expected: 11/18/2024 (Approximate), Expires: 05/20/2026 Vitamin D 25 Hydroxy Lab Routine Stage 3b chronic kidney disease ([facility]) Expected: 11/18/2024 (Approximate), Expires: 05/20/2026 documented as of this encounter Visit Diagnoses Diagnosis Stage 3b chronic kidney disease ([facility])- Primary Diabetes mellitus due to underlying condition with diabetic chronic kidney disease, unspecified CKD stage, unspecified whether intermediate manager insulin use ([facility]) Essential hypertension Unspecified essential hypertension Chronic kidney disease-mineral and bone disorder documented in this encounter Additional Health Concerns Assessment Noted Time A fall risk assessment has been complete d for the patient 09/22/2024 11:14 AM EDT A Body Mass Index follow-up plan has been documented for the patient 11/18/2024 11:50 AM EDT documented as of this encounter Care Teams Landscaping Manager Relationship Specialty Start Date End Date Philip Khan MD [address] [place] [address] PCP - General Internal Medicine 04/01/22 Hilton Maria MD [address] [place] [address] Surgeon Neurosurgery 04/01/22 documented as of this encounter
--- OUTSIDE RECORDS SUMMARY | 2024-11-29 12:45 | XMS_ITS | Encounter Summary ---
Author Organization Healthcare Address [address] [place] [address] Care Team Providers Care Property Consultant Name Role Phone Hilton Maria MD Unavailable Philip Khan MD Primary Care Provider + [phone] Encounter Details Date Type Department Care Team [...] Description 12/14/2024 10:30 AM EDT Office Visit [facility] [address] [place] [phone] Berenice Silver MD [address] [place] [phone] 06/16/2025 8:20 AM EST Office Visit [facility] [address] [place] [phone] Christine Deng, REAL ESTATE ACCOUNT EXECUTIVE [address] [address] documented as of this encounter Visit Diagnoses Not on filedocumented in this encounter Additional Health Concerns Assessment Noted Time A fall risk assessment has been complete d for the patient 09/22/2024 11:14 AM EDT A Body Mass Index follow-up plan has been documented for the patient 10/04/2024 12:00 PM EDT documented as of this encounter Care Teams Property Consultant Relationship Specialty Start Date End Date Philip Khan MD [address] [place] [address] PCP - General Internal Medicine 04/01/22 Hilton Maria MD [address] [place] [address] Surgeon Neurosurgery 04/01/22 documented as of this encounter
--- OUTSIDE RECORDS SUMMARY | 2024-11-29 12:45 | XMS_ITS | Encounter Summary ---
Author Organization Healthcare Address [address] [place] [address] Care Team Providers Care Accounting Director Name Role Phone Hilton Maria MD Unavailable Philip Khan MD Primary Care Provider + [phone] Reason for Referral * Consultation (Routine) - Closed Specialty Diagnoses / Procedures Referred By Contac t Referred To Contact Nephrology Diagnoses Stage 3b chronic kidney disease (CMS/HCC) Kyler Holloway MD [address] [address] Phone: tel: fax: Kirby Colin MD [address] [address] Phone: tel: fax: Referral ID Status Reason Start Date Expiration Date V isits Requested Visits Authorized [id number] Closed Specialty Services Required 02/16/2024 08/17/2025 1 1 Encounter Details Date Type Department Care Team (Late st Contact Info) Description 02/16/2024 Community [facility] [address] [place] [phone] Kyler Holloway MD [address] [address] Stage 3b chronic kidney disease (CMS/HCC) [...] Office Visit [facility] [address] [place] [phone] Berenice Silver MD [address] [address] 06/16/2025 8:20 AM EST Office Visit [facility] [address] [place] [phone] Christine Deng, HOME HEALTH ADMINISTRATOR [address] [facility] [address] [place] [phone] Scheduled Referrals Name Type Priority Associated Diagnoses [...] documented as of this encounter Care Teams Accounting Director Relationship Specialty Start Date End Date Philip Khan MD [address] [place] [address] PCP - General Internal Medicine 04/01/22 Hilton Maria MD [address] [place] [address] Surgeon Neurosurgery 04/01/22 documented as of this encounter
--- OUTSIDE RECORDS SUMMARY | 2024-11-29 12:45 | XMS_ITS | Encounter Summary ---
Author Organization Healthcare Address [address] [place] [address] Care Team Providers Care Automatic Profile Sander Operator Name Role Phone Hilton Maria MD Unavailable Philip Khan MD Primary Care Provider + [phone] Encounter Details Date Type Department Care Team (Latest Contact Info) Description 11/17/2024 Travel Social History Tobacco Use Types Packs/Day [...] Description 12/14/2024 10:30 AM EDT Office Visit [facility] [address] [place] [address] Berenice Silver MD [address] [place] [phone] 06/16/2025 8:20 AM EST Office Visit [facility] [address] [place] [address] Christine Deng, WELDER APPRENTICE COMBINATION [address] [place] [address] documented as of this encounter Visit Diagnoses Not on filedocumented in this encounter Additional Health Concerns Assessment Noted Time A fall risk assessment has been complete d for the patient 09/22/2024 11:14 AM EDT A Body Mass Index follow-up plan has been documented for the patient 11/11/2024 11:29 AM EDT documented as of this encounter Care Teams Automatic Profile Sander Operator Relationship Specialty Start Date End Date Philip Khan MD [address] [place] [address] PCP - General Internal Medicine 04/01/22 Hilton Maria MD [address] [place] [address] Surgeon Neurosurgery 04/01/22 documented as of this encounter
--- OUTSIDE RECORDS SUMMARY | 2024-11-29 12:45 | XMS_ITS | Encounter Summary ---
Author Organization [facility] Address [address] [place] [address] Care Team Providers Care Child Protection Specialist Name Role Phone Hilton Maria MD Unavailable Philip Khan MD Primary Care Provider + [phone] Reason for Referral * Consultation (Routine) - Authorized Specialty Diagnoses / Procedures Referred By Contac t Referred To Contact Endocrinology Diagnoses 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) Deonte Kraft MD [facility]2 [place] [address] Phone: tel: fax: [facility] Endocrinology [address] [place] [address] Phone: tel: fax: Referral ID Status Reason Start Date Expiration Date Visits Requested Visits Authorized [id number] Authorized Specialty Services Required 4 11/17/2025 1 1 Encounter Details Date Type Department Care Team (Late st Contact Info) Description 05/18/2024 [facility] [address] [place] [address] Deonte Kraft MD [address] [place] [id number] Type II diabetes mellitus with nephropathy [...] 12/14/2024 10:30 AM EDT Office Visit [facility] [address] [place] [phone] Berenice Silver MD [address] [place] [address] 06/16/2025 8:20 AM EST Office Visit [facility] [address] [place] [address] Christine Deng, BOAT BUILDER [address] [facility] [address] [place] [address] Scheduled Referrals Name Type Priority [...] documented as of this encounter Care Teams Child Protection Specialist Relationship Specialty Start Date End Date Philip Khan MD [address] [place] [address] PCP - General Internal Medicine 04/01/22 Hilton Maria MD [address] [place] [address] Surgeon Neurosurgery 04/01/22 documented as of this encounter
--- OUTSIDE RECORDS SUMMARY | 2024-11-29 12:45 | XMS_ITS | Encounter Summary ---
Author Organization Healthcare Address [address] [place] [address] Care Team Providers Care Lithographer Apprentice Name Role Phone Hilton Maria MD Unavailable Philip Khan MD Primary Care Provider + [phone] Encounter Details Date Type Department Care Team (Latest Contact Info) Description 11/18/2024 Travel Social History Tobacco Use Types Packs/Day [...] Description 12/14/2024 10:30 AM EDT Office Visit [facility] [address] [place] [address] Berenice Silver MD [address] [place] [phone] 06/16/2025 8:20 AM EST Office Visit [facility] [address] [place] [address] Christine Deng, MARINE CARGO SPECIALIST [address] [place] [address] documented as of this encounter Visit Diagnoses Not on filedocumented in this encounter Additional Health Concerns Assessment Noted Time A fall risk assessment has been complete d for the patient 09/22/2024 11:14 AM EDT A Body Mass Index follow-up plan has been documented for the patient 11/18/2024 11:50 AM EDT documented as of this encounter Care Teams Lithographer Apprentice Relationship Specialty Start Date End Date Philip Khan MD [address] [place] [address] PCP - General Internal Medicine 04/01/22 Hilton Maria MD [address] [place] [address] Surgeon Neurosurgery 04/01/22 documented as of this encounter
--- OUTSIDE RECORDS SUMMARY | 2024-11-29 12:45 | XMS_ITS | Encounter Summary ---
Author Organization Healthcare Address [address] [place] [address] Care Team Providers Care Cottage Master Name Role Phone Hilton Maria MD Unavailable Philip Khan MD Primary Care Provider + [phone] Encounter Details Date Type Department Care Team (Late Contact Info) Description 01/21/2023 Orders Only External Location [address] [place] [address] Enrico Flores MD [address] [facility] [address] [place] [address] Social History Tobacco Use Types [...] Department Care Team (Late Contact Info) Description 12/14/2024 10:30 AM EDT Office Visit [facility] [address] [place] [address] Berenice Silver MD [address] [place] [address] 06/16/2025 8:20 AM EST Office Visit [facility] [address] [place] [phone] Christine Deng, WINERY WORKER [address] [facility] [address] [place] [address] documented as of this encounter [...] documented as of this encounter Care Teams Cottage Master Relationship Specialty Start Date End Date Philip Khan MD [address] [place] [address] PCP - General Internal Medicine 04/01/22 Hilton Maria MD [address] [facility] [address] [place] [address] Surgeon Neurosurgery 04/01/22 documented as of this encounter
--- OUTSIDE RECORDS SUMMARY | 2024-11-29 12:45 | XMS_ITS | Clinical Summary ---
Author Organization [facility] Address [facility] [place] [address] Care Team Providers Care Trim Sawyer Name Role Phone Hilton Maria MD Unavailable Philip Khan MD Primary Care Provider + [phone] Allergies Active Allergy Reactions Criticality Noted Date [...] 2 Active ergocalciferol (Vitamin D-2) 1.25 MG (68523 UT) capsule Take 1 capsule (50,000 Units) [...] (04/01/2022): Added automatically from request for surgery [id number] Encounters Date Type Department Care Team Description 11/18/2024 10:20 AM EDT Office Visit [facility] [address] [place] [address] Christine Deng APRN Stage 3b chronic kidney disease (CMS/HCC) (Primary Dx); Diabetes mellitus due to underlying condition with diabetic chronic kidney disease, unspecified CKD stage, unspecified whether retirement insulin use (CMS/HCC); Essential hypertension; Chronic kidney disease-mineral and bone disorder 11/18/2024 Travel 11/17/2024 Travel 11/11/2024 10:50 AM EDT Office Visit [facility] [address] [place] [address] Berenice Silver MD Numbness and tingling in left hand (Primary Dx) 11/11/2024 Travel 10/27/2024 Telephone [facility] [address] [place] [address] Berenice Silver MD HCN - Patient Message 10/20/2024 1:37 PM EDT - 10/20/2024 11:59 PM EDT Hospital Encounter [facility] [address] [place] [address] Numbness and tingling in left hand Discharge Disposition: Home or Self Care 10/20/2024 Travel 09/28/2024 10:40 AM EDT Office Visit [facility] [address] [place] [address] Berenice Silver MD Numbness and tingling in left hand (Primary Dx) 09/28/2024 Travel 09/22/2024 11:00 AM EDT Procedure [facility] [address] [place] [phone] Geovany Sampson MD Numbness 09/22/2024 Travel from [...] Pulse 68 11/18/2024 10:31 AM EDT Temperature 36.6 C (97.8 F) 07/04/2024 12:34 PM EST Respiratory Rate 18 11/18/2024 10:31 AM EDT Oxygen Saturation 94% 11/18/2024 10:31 AM EDT Inhaled Oxygen Concentration - - Weight 97.5 kg (215 lb) 11/18/2024 10:31 AM EDT Height 167.6 cm (5' 6 ) 11/18/2024 10:31 AM EDT Body Mass Index 34.7 11/18/2024 10:31 AM EDT Plan of Treatment Upcoming Encounters Date Type Department Care Team (Late st Contact Info) Description 12/14/2024 10:30 AM EDT Office Visit [facility] [address] [place] [address] Berenice Silver MD [address] [phone] 06/16/2025 8:20 AM EST Office Visit [facility] [address] [place] [address] Christine Deng, DOG SHOW JUDGE [address] [address] Health Maintenance Due Date Last Done Comments Dental Oral Exam 1960 Dental Prophylaxis 1960 Dental X-Ray: Bitewings 1962 Dental X-Ray: Full Mouth 1962 [facility]-HIV Screening 1962 [facility]-Infant/Child/Adol SDOH Screenings 1962 Diabetes: Dental Exam 1972 [...] - Risk 60-74 years 1-dose series) 2022 [id number] Vaccine (3 - season) 2024 09/19/2020, 08/22/2020 [facility]-Influenza Vaccine (Season Ended) 2025 04/19/2018 [facility]-Depression Screening 09/22/2025 09/22/2024 [facility]-Hepatitis C Screening Completed 10/27/2019 [facility]-Obesity Intervention Completed 025, 11/11/2024, 09/28/2024, Additional history exists HPV Vaccines Aged Out [...] Robe Alonso MD on 10/20/2024 3:27 PM Stephanie HOFF IMG US PROCEDURES Final Result [...] Bleeding, infection and pain Alternatives discussed: Observation Stephanie HOFF NEUROLOGY ORDERABLES Final Res ult [...] Adults <6.0% Children and Adolescents <7.5% Source: [place] [employer]. Standards of medical care in diabetes,2017. Diabetes Care.2017:40 (suppl 1):S1-S135. HbA1c assay performed by an ion-exchange chromatography method that is certified traceable to the DCCT. Hilton Maria MD LAB BLOOD ORDERA BLES Final Result [facility] [address] [place] [address] * CT Angio Pulmonary Embolism (10/27/2019 2:46 [...] Oct 27 2019 2:50P Procedure Note Bigg Reyes Te-An - 10/02/2020 [...] Flores IMG CT PROCEDURES Final Result * Celine Hepatitis C Antibody (10/27/2019 1:10 PM EDT) Celine Hepatitis C Ab NEGATIVE Reference Range: Negative SUNQUEST 10/27/2019 1:10 PM EDT 10/27/2019 1:19 PM EDT us Bigg Flores LAB BLOOD ORDERABLES Final Resul t SUNQUEST from Last 3 Months or Most Recently Relevant to Health [place] [address] [facility] MEDICAID Care Teams Trim Sawyer Relationship Specialty Start Date End Date Philip Khan MD [address] [place] [address] PCP - General Internal Medicine 04/01/22 Hilton Maria MD [address] [place] [address] Surgeon Neurosurgery 04/01/22
--- OUTSIDE RECORDS SUMMARY | 2024-11-29 12:46 | XMS_ITS | Encounter Summary ---
Author Organization Healthcare Address [address] [place] [address] Care Team Providers Care Sales Marketing Coordinator Name Role Phone Hilton Maria MD Unavailable Philip Khan MD Primary Care Provider + [phone] Reason for Visit * Reason Onset Date Comments HCN - Patient Message 10/27/2024 Encounter Details Date Type Department Care Team (Late st Contact Info) Description 10/27/2024 Telephone [facility] [address] [place] [address] Berenice Silver MD [address] [address] HCN - Patient Message Social [...] go over ultrasound results Best contact number: [phone] (mobile) Optimal time of day to reach caller: ANYTIME Additional comments/information from caller: None Note: Please do not reply to this message. Follow-up communication and further actions as a result of this message need to be communicated with the patient directly, if the patient is not active onMyChart. If the patient is active on MyChart, they will receive notification of the communication/outcome via [employer]. documented in this encounter Plan of Treatment Upcoming Encounters Date Type Department Care Team (Late st Contact Info) Description 12/14/2024 10:30 AM EDT Office Visit [facility] [address] [place] [phone] Berenice Silver MD [address] [phone] 06/16/2025 8:20 AM EST Office Visit [facility] [address] [place] [address] Christine Deng, BIOINFORMATICS SUPPORT SPECIALIST [address] [address] documented as of this encounter Visit Diagnoses Not on filedocumented in this encounter Additional Health Concerns Assessment Noted Time A fall risk assessment has been complete d for the patient 09/22/2024 11:14 AM EDT A Body Mass Index follow-up plan has been documented for the patient 10/04/2024 12:00 PM EDT documented as of this encounter Care Teams Sales Marketing Coordinator Relationship Specialty Start Date End Date Philip Khan MD [address] [place], [place] [address] PCP - General Internal Medicine 04/01/22 Hilton Maria MD [address] [place] [address] Surgeon Neurosurgery 04/01/22 documented as of this encounter
--- OUTSIDE RECORDS SUMMARY | 2024-11-29 12:46 | XMS_ITS | Encounter Summary ---
Author Organization Healthcare Address [address] [place] [address] Care Team Providers Care Senior Net Application Developer Name Role Phone Hilton Maria MD Unavailable Philip Khan MD Primary Care Provider + [phone] Encounter Details Date Type Department Care Team [...] Description 12/14/2024 10:30 AM EDT Office Visit [facility] [address] [place] [address] Berenice Silver MD [address] [place] [phone] 06/16/2025 8:20 AM EST Office Visit [facility] [address] [place] [address] Christine Deng, WINE MASTER [address] [place] [address] documented as of this encounter Visit Diagnoses Not on filedocumented in this encounter Additional Health Concerns Assessment Noted Time A fall risk assessment has been complete d for the patient 09/22/2024 11:14 AM EDT A Body Mass Index follow-up plan has been documented for the patient 11/11/2024 11:29 AM EDT documented as of this encounter Care Teams Senior Net Application Developer Relationship Specialty Start Date End Date Philip Khan MD [address] [place] [address] PCP - General Internal Medicine 04/01/22 Hilton Maria MD [address] [place] [address] Surgeon Neurosurgery 04/01/22 documented as of this encounter
[2024-11-29 13:55] LABS: Alanine Aminotransferase 20 U/L (12-78); Albumin Level 4.2 g/dl (3.5-5.0); Albumin/Globulin Ratio 1.8 (1.1-1.8); Alkaline Phosphatase 65 U/L (38-126); Anion Gap 6.9 mEq/L (5-15); Aspartate Amino Transferase 28 U/L (17-59); Bilirubin,Direct 0.1 mg/dl (0.0-0.4); Bilirubin,Total 1.1 mg/dl (0.2-1.3); Blood Urea Nitrogen 21 mg/dl (9-20); Calcium 10.2 mg/dl (8.4-10.2); Carbon Dioxide 25 mmol/L (22.0-30.0); Chloride 108 mmol/L (98-107); Estimated Glomerular Filt Rate 62 ml/min (>60); GFR (African American) 74 ML/MIN (>60); Globulin 2.4 g/dL (1.3-3.2); Glucose 113 mg/dl (74-100); Potassium 4.9 mmoL/L (3.5-5.1); Sodium 135 mmol/L (136-145); Total Protein,Serum 6.6 g/dl (6.3-8.2)
[2024-11-30 08:28] LABS: CA 19-9 13 U/mL (0-35)
== END 2024-11-29 23:59 | disposition home or self-care (01) ==
LOC: LAB 12:43
PROVIDERS: PCP Family Medicine; Visit Provider Nurse Practitioner Family
DX: K86.2 Cyst of pancreas (principal)
CPT/HCPCS: 36415; 80053; 82247; 82248; 86301

== ENCOUNTER 2024-12-12 09:18 | Outpatient (CLI) | payer OTHER, SELFPAY ==
--- OUTSIDE RECORDS SUMMARY | 2024-08-23 06:15 | XMS_ITS ---
Author Organization [facility] Address [address] [place] [address] Care Team Providers Care [employer] Supervisor Name Role Phone Reji Jordan II Unavailable [phone] Adam OSUNA -Lyndon Celestin Unavailable Un [...] Diagnosis [facility] [address] [place] [address] 08/23/2024 Reji Jordan Other correction (current) drug therapy Z79.899 ; Spondylosis without myelopathy or radiculopathy, lumbosacral region M47.817 and Malignant neoplasm of unspecified part of unspecified bronchus or lung C34.90 Assessments Encounter Date Diagnosis (ICD Code) Assessment Notes Treatment Notes Treatment Clinical Notes Section Notes 08/23/2024 Other extermination inspector (current) drug therapy (ICD-10 - Z79.899) 06/23/2024 [...] 30 day(s) Treatment Notes Assessment Notes Other correction (current) drug therapy 06/23/2024 1. Refill Oxycodone 10 mg TID 2. F/U 2 months 3. start tizanidine 4mg TID 4. start lidocaine patches daily Pending Test Test Name Order Date Urine Test ANALYZER 08/23/2024 Next Appt Details Follow Up: 2 Months, Reason: Provider Name:Ted Barry ms, 12/16/2024 09:30:00 AM, [address], [place], [address], Procedure Notes * Category Sub-Category Detail Notes PROVIDER ENCOUNTER AND OVERSIGHT Consult Performed By: Zahraa Alvarado (ARNP-LEX) 06/23/2024 2:37:35 PM > collaborated treatment plan with Reji yanes M.D., , supervising physician who was present in office during consultation Progress Notes * Seamus COVARRUBIAS LDOB: [birth year] (63 yo M)Acc No.[id number]:08/23/2024 FollowUP Patient: Seamus BROWN Provider: Mil Jordan II, M.D. :1960 A ge:63 Y S ex:Male Date:08/23/2024 Address:[facility] [address] Subjective: * Chief Complaints: * 1 . [...] THERAPY/DME/OTHER HISTORY: 2 019- Current (02/2022) at [facility], patient reported no relief . P ERTINENT [...] proceed. Agus neri had previously relied on Martinez 10/325 one by mouth 3 times a [...] Positive for b lood thinner (Plavix) for: [place]. ? G ASTROINTESTINAL: Heartburn H eartburn. M [...] * Vitals: * Examination: G eneral Examination: Nurse/Deflash And Wash Operator: Ezequiel Goss ( MA-Lex) 06/23/2024 2:26:54 [...] ERIN. Assessment: * Assessment: 1. O ther correction (current) drug therapy - Z79.899 (Primary) 2 [...] ENCOUNTER AND OVERSIGHT: Consult Performed By: Jayda schneider(RES COUNSELOR-BEBETO),Zahraa 06/23/2024 2:37:35 PM > . c ollaborated treatment plan with Mil Jordan M.D., , supervising physician who was present in office during consultation. * Follow Up: 2 Months * * Electronic signature of Jm Jordan II, M.D. on 12/12/2024 at 08:22 AM CDT Sign off status: Pending * Provider: Mil Jordan II, M.D. Date: 0 08/23/2024 Generated for Seema terrell/Erick/Fantasma on: 0 12/12/2024 08:22 AM CDT History and Physical Notes * HPI (History [...] to proceed. He had previously relied on Martinez 10/325 one by mouth 3 times a day. He denies side effects to this medication. Brisbin and UDS were reviewed today. Opioid risk [...] evidence of myopathy. PHYSICAL/AQUA THERAPY/DME/OT HER HISTORY: Current (02/2022) at [facility], patient reported no relief PERTINENT SURGICAL EVALUATIONS/SPECIALIST [...] ADL/Quality of Life Interference:: work PERTINENT INFORMATION: [facility] - 04/02/2024 - Swollen Knee (RT) [...] wi th an antalgic gait, pitched forward Nurse/Deflash And Wash Operator: Ezequiel Devine ( MA-Lex) 06/23/2024 2:26:54 [...]
--- OUTSIDE RECORDS SUMMARY | 2024-10-20 13:37 | XMS_ITS | Encounter Summary ---
Author Organization Healthcare Address [address] [place] [address] Care Team Providers Care Engineering Supplies Sales Name Role Phone Hilton Maria MD Unavailable Philip Khan MD Primary Care Provider + [phone] Reason for Referral * Imaging (Routine) - Closed Specialty Diagnoses / Procedures Referred By Contac susan Referred To Contact Radiology Diagnoses Numbness and tingling in left hand Procedures US Extremity Limited MSK or Soft Tissue Bilateral; Forearm (median nerve bilateral) Stephanie Torres PA [address] [address] Phone: tel: fax: Referral ID Status Reason Start Date Expiration Date Visits Re quested Visits Authorized [id number] Closed 09/28/2024 03/30/2026 1 1 Reason for Visit * Imaging (Routine) - Closed Specialty Diagnoses / Procedures Referred By Fran davis Referred To Contact Radiology Diagnoses Numbness and tingling in left hand Procedures US Extremity Limited MSK or Soft Tissue Bilateral; Forearm (median nerve bilateral) Stephanie Torres PA [address] [address] Phone: tel: fax: Referral ID Status Reason Start Date Expiration Date Visits Re quested Visits Authorized [id number] Closed 09/28/2024 03/30/2026 1 1 Encounter Details Date Type Department Care Team (Latest Contact Info) Description 10/20/2024 1:37 PM EDT - 10/20/2024 11:59 PM EDT Hospital Encounter [facility] [address] [place] [address] Numbness and tingling in left hand Discharge Disposition: Home or Self Care Social [...] inhaler Inhale 2 puffs if needed. 03/27/2017 B-D ULTRAFINE III SHORT PEN 31G X 8 MM misc 05/14/2022 benzonatate (Tessalon) 100 MG capsule 06/11/2022 clopidogrel (Plavix) 75 MG tablet Take 1 tablet (75 mg) by mouth 1 (one) time each day at the same time. 07/17/2016 ergocalciferol (Vitamin D-2) 1.25 MG (11188 UT) capsule Take 1 capsule (50,000 Units) by mouth 1 (one) time per week. 11/22/2018 famotidine (Pepcid) 20 MG tablet 05/14/2022 gabapentin (Neurontin) 800 MG tablet Take 1 tablet (800 mg) by mouth 3 (three) times a day. 02/23/2018 HumaLOG KWIKPEN 100 UNIT/ML injection pen After checking blood sugar, Inject as follows prior to meals:For BS less than 150, NO insulin For BS between 151-200, inject 2 unitsFor BS between 201-250, inject 4 unitsFor BS between 251-300, inject 6 unitsFor BS between 301-350, inject 8 unitsFor BS between 351-400, inject 10 unitsFor BS between 401-450, inject 12 unitsFor BS between 451-500, inject 15 unitsFor BS over 500, inject 20 units and recheck in 30-60 minMax daily dose-50 units isosorbide mononitrate ER (Imdur) 30 MG 24 hr tablet Take 1 tablet (30 mg) by mouth 1 (one) time each day. Do not crush or chew. Januvia 100 MG tablet 02/17/2023 Jardiance 25 MG Take 1 tablet (25 mg) by mouth 1 (one) time each day. 03/05/2022 Lantus SoloStar 100 UNIT/ML injection pen Inject 20 units every day by subcutaneous route at bedtime, for diabetes. lidocaine (Lidoderm) 5 % patch 10/13/2022 lisinopril 5 MG tablet 1 (one) time each day at the same time. 09/12/2021 metoprolol tartrate (Lopressor) 25 MG tablet Take 1 tablet (25 mg) by mouth every 12 (twelve) hours. 09/12/2021 OneTouch Ultra test strip 03/07/2022 oxyCODONE (Roxicodone) 10 MG immediate release tablet 02/04/2023 oxyCODONE-acetami nophen (Percocet) 10-325 MG tablet Take 1 tablet by mouth if needed. 04/02/2022 pantoprazole (ProtoNix) 20 MG EC tablet 02/02/2023 ranolazine (Ranexa) 1000 MG 12 hr tablet Take 1,000 mg by mouth 2 (two) times a day. 03/05/2022 rosuvastatin (Crestor) 40 MG tablet 02/23/2023 Spiriva HandiHaler [address] 1 capsule (18 mcg) into inhaler and inhale 1 (one) time each day. 02/27/2022 spironolactone (Aldactone) 50 MG tablet Take 1 tablet (50 mg) by mouth 1 (one) time each day. 03/05/2022 torsemide (Demadex) 100 MG tablet Take 0.5 tablets (50 mg) by mouth 1 (one) time each day. 03/05/2022 documented as of this encounter Plan of Treatment Upcoming Encounters Date Type Department Care Team (Late st Contact Info) Description 12/14/2024 10:30 AM EDT Office Visit [facility] [place] [phone] Berenice Silver MD [address] [place] [address] 06/16/2025 8:20 AM EST Office Visit [facility] [address] [place] [address] Christine Deng, SUPERINTENDENT HORTICULTURE [address] [address] documented as of this encounter Procedures Procedure Name Priority Date/Time Associated Diagnosis Comments US EXTREMITY LIMITED MSK OR SOFT TISSUE Routine 10/20/2024 2:13 PM EDT Numbness and tingling in left hand documented in this encounter Results * US Extremity Limited [...] Diagnoses Diagnosis Numbness and tingling in left hand Disturbance of skin sensation documented in this encounter Additional Health Concerns Assessment Noted Time A fall risk assessment has been complete d for the patient 09/22/2024 11:14 AM EDT A Body Mass Index follow-up plan has been documented for the patient 10/04/2024 12:00 PM EDT documented as of this encounter Care Teams Engineering Supplies Sales Relationship Specialty Start Date End Date Philip Khan MD [address] [place] [address] PCP - General Internal Medicine 04/01/22 Hilton Maria MD [address] [place] [address] Surgeon Neurosurgery 04/01/22 documented as of this encounter
--- OUTSIDE RECORDS SUMMARY | 2024-10-21 05:00 | XMS_ITS ---
Author Organization [facility] Address [address] [place] [address] Care Team Providers Care Lombardi Developer Name Role Phone Reji Jordan II Unavailable Adam OSUNA -Lyndon Celestin Unavailable Un available Allergies Allergen (clinical drug ingredient) Drug/Non Drug Allergy documented on EMR Reaction Allergy Type Onset Date Status naproxen hives Drug Allergy Active tramadol tramadol hives Drug Allergy Active Results Component Value Reference Range Notes Urine Test ANALYZER Reviewed date:10/21/2024 03:39:02 PM Interpretation:+OXY Performing Lab: Notes/Report: +OXY Heroin Metabolite (6AM) NEG Amphetamine (AMP) NEG Benzodiazepine (ANKUR) NEG Buprenorphine NEG Cocaine (BENNETT) NEG Hydrocodone (HYD) NEG Methadone (MTD) NEG Opiate (OPI) NEG Oxycodone (OXY) POS REASON FOR VISIT Low Back Pain Medications Medication SIG (Take, Route, Frequency, Duration) Notes Start Date End Date Status ProAir HFA 90 mcg/inh 2 puff(s) inhaled every 6 hours 05/13/2022 Active Metoprolol Tartrate 25 mg 1 tab(s) orally 2 times a day; Duration: 30 day(s) 05/13/2022 Active Jardiance 25 mg 1 tab(s) orally once a day (in the morning) 05/13/2022 Active OxyCODONE Hydrochloride 10 mg 1 tab(s) orally 3 times a day; Duration: 28 days OCTOBER 2024 RX, DO NOT FILL SOONER THAN 28 DAYS, (OK TO FILL EARLY, ONLY IF CLOSED) Active isosorbide mononitrate 30 mg 1 tab(s) orally once a day (in the morning); Duration: 30 day(s) 06/04/2022 Active baclofen 10 mg 1 tab(s) orally 3 times a day; Duration: 30 days Active clopidogrel 75 mg 1 tab(s) orally once a day; Duration: 30 day(s) 05/13/2022 Active Plavix 75 mg 1 tab(s) orally once a day; Duration: 30 day(s) Active ranolazine 1000 mg 1 tab(s) orally 2 times a day; Duration: 30 day(s) 06/04/2022 Active lisinopril 5 mg 1 tab(s) orally once a day; Duration: 30 day(s) 05/13/2022 Active Lidocaine, Topical 4% 1 patch applied topically once a day; Duration: 30 days Active TiZANidine Hydrochloride 4 mg 1 tab(s) orally 3 times a day as needed; Duration: 30 day(s) Active OxyCODONE Hydrochloride 10 mg 1 tab(s) orally 3 times a day; Duration: 28 days November 2024 RX, DO NOT FILL SOONER THAN 28 DAYS, (OK TO FILL EARLY, ONLY IF CLOSED) Active famotidine 20 mg 1 tab(s) orally 2 times a day 05/13/2022 Active Vital Signs Blood pressure systolic 97 mm Hg 10/22/19 25 Blood pressure diastolic 63 mm Hg 025 Heart Rate 75 /min 10/21/2024 Height 65 in 10/21/2024 Weight 215 lbs 10/21/2024 BMI 35.77 kg/m2 10/21/2024 Encounters Encounter Location Date Provider Diagnosis [facility] [address] [place] [address] 10/21/2024 Reji Jordan [facility] (current[facility] drug therapy Z79.899 ; Spondylosis without myelopathy or radiculopathy, lumbosacral region M47.817 and Malignant neoplasm of unspecified part of unspecified bronchus or lung C34.90 Assessments Encounter Date Diagnosis (ICD Code) Assessment Notes Treatment Notes Treatment Clinical Notes Section Notes 10/21/2024 Other prison (current) drug therapy (ICD-10 - Z79.899) 10/21/2024 1. Refill Oxycodone 10 mg TID 2. F/U 2 months 3. Refill baclofen 10mg TID 4. Refill lidocaine patches daily 5. Screen Expected,Sen t for Definitive bc of last 3 neg definitives, PILL COUNT NEAR FUTURE Mr. Covarrubias is a 63-year-old who returns today for office visit and medication refill. He has been a longstanding patient and stable on his medications for quite some time. Apparently he has had some increasing issues with his neck pain. He was reevaluated by neurosurgery and no surgical recommendation was made. He was told that he could have potentially fusion but that was not advisable and likely not covered by the insurance. He does have known facet arthropathy with some neuroforaminal narrowing. We have done medial branch blocks in the past in the mid cervical region. He is apprehensive about the injection therapy and does not really want to go through with that again. I did suggest to him that that might be the best bet if were to try and minimize his reliance on his pain medication and potentially get him some intervals time with minimal pain. He states that he will think about redoing the injection therapy once again. Medication tineo he currently relies on oxycodone 10 mg 1 p.o. 3 times daily. He denies any side effect of the medicine. [place] and UDS were reviewed. Opioid risk assessment is low 10/21/2024 The patient is a 63-year-old male who presents today for a follow-up visit regarding pain management and medication refills. He reports ongoing severe pain, rated at 8/10, with minimal relief from his current regimen. He is currently prescribed oxycodone 10mg TID, which he states provides only about 15% relief lasting approximately 1.5 to 2 hours. He denies any side effects from the medication. His worst pain is located in the lower back, shoulders, knees (right greater than left), and left hand. He describes the pain as constant and always present, with aching, burning, sharp, stabbing, numbness, and tingling qualities. Pain is worsened by walking, sitting, and lifting and is only somewhat alleviated by lying down. Pain significantly interferes with his ability to work and perform daily activities. Despite previous interventional treatmentspecifically a right-sided RFA at L3-L5 on 05/18/2020, which provided only 20% relief for one dayhe currently refuses any further injections or therapies and is not participating in any other rehabilitative efforts. The patient was argumentative during the visit, repeatedly questioning medication dates and pickup times, despite multiple attempts to clarify. He eventually walked out of the visit. Of note, his last three definitive urine drug screens have returned negative for prescribed medications, raising concerns for compliance. He is also managed by Dr. Thomas in [place] for additional medications, including Ambien, gabapentin, and tizanidine. Due to recent UDS findings and behavior, he will require a pill count in the near future. Refills for oxycodone 10mg TID, baclofen 10mg TID, and daily lidocaine patches were sent today. A definitive screen has been ordered given the history of three consecutive negative definitive UDS results. Follow-up is scheduled in two months. 10/21/2024 Spondylosis without myelopathy or radiculopathy, lumbosacral region (ICD-10 - M47.817) Mr. Covarrubias is a 63-year-old who returns today for office visit and medication refill. He has been a longstanding patient and stable on his medications for quite some time. Apparently he has had some increasing issues with his neck pain. He was reevaluated by neurosurgery and no surgical recommendation was made. He was told that he could have potentially fusion but that was not advisable and likely not covered by the insurance. He does have known facet arthropathy with some neuroforaminal narrowing. We have done medial branch blocks in the past in the mid cervical region. He is apprehensive about the injection therapy and does not really want to go through with that again. I did suggest to him that that might be the best bet if were to try and minimize his reliance on his pain medication and potentially get him some intervals time with minimal pain. He states that he will think about redoing the injection therapy once again. Medication tineo he currently relies on oxycodone 10 mg 1 p.o. 3 times daily. He denies any side effect of the medicine. [place] and UDS were reviewed. Opioid risk assessment is low 10/21/2024 The patient is a 63-year-old male who presents today for a follow-up visit regarding pain management and medication refills. He reports ongoing severe pain, rated at 8/10, with minimal relief from his current regimen. He is currently prescribed oxycodone 10mg TID, which he states provides only about 15% relief lasting approximately 1.5 to 2 hours. He denies any side effects from the medication. His worst pain is located in the lower back, shoulders, knees (right greater than left), and left hand. He describes the pain as constant and always present, with aching, burning, sharp, stabbing, numbness, and tingling qualities. Pain is worsened by walking, sitting, and lifting and is only somewhat alleviated by lying down. Pain significantly interferes with his ability to work and perform daily activities. Despite previous interventional treatmentspecifically a right-sided RFA at L3-L5 on 05/18/2020, which provided only 20% relief for one dayhe currently refuses any further injections or therapies and is not participating in any other rehabilitative efforts. The patient was argumentative during the visit, repeatedly questioning medication dates and pickup times, despite multiple attempts to clarify. He eventually walked out of the visit. Of note, his last three definitive urine drug screens have returned negative for prescribed medications, raising concerns for compliance. He is also managed by Dr. Thomas in [place] for additional medications, including Ambien, gabapentin, and tizanidine. Due to recent UDS findings and behavior, he will require a pill count in the near future. Refills for oxycodone 10mg TID, baclofen 10mg TID, and daily lidocaine patches were sent today. A definitive screen has been ordered given the history of three consecutive negative definitive UDS results. Follow-up is scheduled in two months. 10/21/2024 Malignant neoplasm of unspecified part of unspecified bronchus or lung (ICD-10 - C34.90) Mr. Covarrubias is a 63-year-old who returns today for office visit and medication refill. He has been a longstanding patient and stable on his medications for quite some time. Apparently he has had some increasing issues with his neck pain. He was reevaluated by neurosurgery and no surgical recommendation was made. He was told that he could have potentially fusion but that was not advisable and likely not covered by the insurance. He does have known facet arthropathy with some neuroforaminal narrowing. We have done medial branch blocks in the past in the mid cervical region. He is apprehensive about the injection therapy and does not really want to go through with that again. I did suggest to him that that might be the best bet if were to try and minimize his reliance on his pain medication and potentially get him some intervals time with minimal pain. He states that he will think about redoing the injection therapy once again. Medication tineo he currently relies on oxycodone 10 mg 1 p.o. 3 times daily. He denies any side effect of the medicine. [place] and UDS were reviewed. Opioid risk assessment is low 10/21/2024 The patient is a 63-year-old male who presents today for a follow-up visit regarding pain management and medication refills. He reports ongoing severe pain, rated at 8/10, with minimal relief from his current regimen. He is currently prescribed oxycodone 10mg TID, which he states provides only about 15% relief lasting approximately 1.5 to 2 hours. He denies any side effects from the medication. His worst pain is located in the lower back, shoulders, knees (right greater than left), and left hand. He describes the pain as constant and always present, with aching, burning, sharp, stabbing, numbness, and tingling qualities. Pain is worsened by walking, sitting, and lifting and is only somewhat alleviated by lying down. Pain significantly interferes with his ability to work and perform daily activities. Despite previous interventional treatmentspecifically a right-sided RFA at L3-L5 on 05/18/2020, which provided only 20% relief for one dayhe currently refuses any further injections or therapies and is not participating in any other rehabilitative efforts. The patient was argumentative during the visit, repeatedly questioning medication dates and pickup times, despite multiple attempts to clarify. He eventually walked out of the visit. Of note, his last three definitive urine drug screens have returned negative for prescribed medications, raising concerns for compliance. He is also managed by Dr. Thomas in [place] for additional medications, including Ambien, gabapentin, and tizanidine. Due to recent UDS findings and behavior, he will require a pill count in the near future. Refills for oxycodone 10mg TID, baclofen 10mg TID, and daily lidocaine patches were sent today. A definitive screen has been ordered given the history of three consecutive negative definitive UDS results. Follow-up is scheduled in two months. Plan Of Treatment Medication Medication Name Sig Start Date Stop Date Notes OxyCODONE Hydrochloride 10 mg 1 tab(s) orally 3 times a day; Duration: 28 days OCTOBER 2024 RX, DO NOT FILL SOONER THAN 28 DAYS, (OK TO FILL EARLY, ONLY IF CLOSED) baclofen 10 mg 1 tab(s) orally 3 times a day; Duration: 30 days Lidocaine, Topical 4% 1 patch applied topically once a day; Duration: 30 days TiZANidine Hydrochloride 4 mg 1 tab(s) orally 3 times a day as needed; Duration: 30 day(s) OxyCODONE Hydrochloride 10 mg 1 tab(s) orally 3 times a day; Duration: 28 days November 2024 RX, DO NOT FILL SOONER THAN 28 DAYS, (OK TO FILL EARLY, ONLY IF CLOSED) Treatment Notes Assessment Notes Other prison (current) drug therapy 10/21/2024 1. Refill Oxycodone 10 mg TID 2. F/U 2 months 3. Refill baclofen 10mg TID 4. Refill lidocaine patches daily 5. Screen Expected,Sent for Definitive bc of last 3 neg definitives, PILL COUNT NEAR FUTURE Next Appt Details Follow Up: 2 Months, Reason: Provider Name:Ted Barry ms, 12/16/2024 09:30:00 AM, [address], [facility] [address], [place], [address], Procedure Notes * Category Sub-Category Detail Notes PROVIDER ENCOUNTER AND OVERSIGHT Consult Performed By: Red GarcíaB[facility] SHEARING SUPERVISOR-BC-BEBETOGisselle Rod 10/25/2024 11:24:01 AM > collaborated treatment plan with Reji yanes M.D. , supervising physician who was present in office during consultation Progress Notes * Seamus COVARRUBIAS LDOB: [birth year] (63 yo M)Acc No.[id number]:10/21/2024 FollowUP Patient: Seamus Cortés Provider: Mil Jordan II, M.D. Resource:Red ([facility] SHEARING SUPERVISOR-BC-BEBETOMirna Rod :1960 A ge:63 Y S ex:Male Date:10/21/2024 Address:[facility] [id number] Subjective: * Chief Complaints: * 1 . Low Back Pain. * HPI: T ODAYS PAIN EVALUATION: 63 year old male presents with c/o MEDICATION FOLLOW UP: T he patient is currently prescribed Oxycodone 10mg TID, which provides 15% relief of pain symptoms for 1.5 hour. The last dose was taken 10/21/2024. Denies side effects. CURRENT PAIN SYMPTOMS: L ocation of Worst Pain: L ow Back, Knee(s), Shoulder(s), Hand knee (RT), hand (LT), P ain Frequency: c onstant, always,?Pain Description: a olivia, burning, sharp, stabbing, numb, tingling, A verage Pain Score VAS: 8 , P ain Exacerbation: walking, sitting, lifting, P ain Alleviation: Laying down, A DL/Quality of Life Interference: work. P AIN MANAGEMENT TREATMENT HISTORY: IMAGING HISTORY: [...] P REVIOUS INJECTION\PROCEDURE HISTORY:? 0 2019 #1 ERNI LMBB L3,L4,L5 80% relief for 2 days 0 02/21/2020 #2 ERIN LMBB L3,L4,L5 80% relief for 1 day 1 07/19/2019 RFA RT L3,L4,L5- 20% relief for 1 day . P HYSICAL/AQUA THERAPY/DME/OTHER HISTORY: 2 019- Current (02/2022) at [facility], patient reported no relief 2 025- No therapies reported as of 10/21/2024 . P ERTINENT SURGICAL EVALUATIONS/SPECIALIST CONSULTS N [...] proceed. Agus neri had previously relied on Tunica 10/325 one by mouth 3 times a day. He denies side effects to this medication. [place] and UDS were reviewed today. Opioid risk assessment is low. C OMPLIANCE: RISK ASSESSMENT AND STRATIFICATION: R ISK GROUP: MODERATE RISK membrane stabilizer benzodiazepine . U RINE DRUG TESTIN 12/04/2023 Screen Expected 0 02/02/2024 Screen Expected 1 Screen Unexpected(-Oxy) Definitive Unexpected (neg) 0 06/23/2024 Screen Unexpected (neg) Definitive Unexpected (all neg) 0 08/26/2024 Screen Unexpected (all neg) Definitive Unexpected (all neg, + ambien) 0 10/21/2024 Screen Expected,Sent for Definitive, . M ONITORING: M orphine Equivalent (MME): 45 K ASPER reviewed today and appropriate . T ESTING/RISK ASSESSMENTS O RT Score/Result:0. * ROS: G ENERAL: Fever D enies. H EENT: Sore throat D enies. C ARDIOVASCULAR: Positive for b lood thinner (Plavix) for: MT. ? G ASTROINTESTINAL: Heartburn H eartburn. M [...] Medina, CHF [address] Medina, MT [address] Gonzalez, Arthritis [address] Medina, Anemia [address] Medina, CAD [address] Gonzalez. * 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: G allbladder- [place](OP) 2008, Lt shoulder- Dr. Dickerson/ [facility] (OP) 2011, Rt Knee surgery [facility]2- [facility]. Hayes[facility] (OP) 2013, EUS Dr. Olvera/ [facility]) 01/2017, Cardiac Ablation for SVT at / (OP) 2016, Colonoscopy [facility]- Dr Reba Jones (OP) 2017, Capsule endoscopy- Dr. Dickinson/ [facility] ([facility]) 09/2018, EGD/EUS- Dr. Locke/ [facility] (OP) 07/2018, C W/out stents/ [facility] ([facility]) 07/2018, EGD- [facility] / OP 06/2020, pt had surgery on left wrist at [facility]. (OP) 12/21/2023. * Hospitalization/Major Diagno stic Procedure: H [facility] - Swollen Knee (RT) - OP 04/02/2024, heart/kidney [facility] 06/08/2023. * Family History: N on-Contributory. Denies family history of substance abuse. * Social History: n o Smoking . N o Personal History Drug Use. No Alcohol. * Medications: T aking famotidine 20 mg tablet 1 tab(s) orally 2 times a day, Taking lisinopril 5 mg tablet 1 tab(s) orally once a day, Taking ranolazine 1000 mg tablet, extended release 1 tab(s) orally 2 times a day, Taking Plavix 75 mg tablet 1 tab(s) orally once a day, Taking clopidogrel 75 mg tablet 1 tab(s) orally once a day, Taking Jardiance 25 mg tablet 1 tab(s) orally once a day (in the morning), Taking Metoprolol Tartrate 25 mg tablet 1 tab(s) orally 2 times a day, Taking ProAir HFA 90 mcg/inh aerosol 2 puff(s) inhaled every 6 hours, Taking isosorbide mononitrate 30 mg tablet, extended release 1 tab(s) orally once a day (in the morning), Taking TiZANidine Hydrochloride 4 mg tablet 1 tab(s) orally 3 times a day as needed, Taking OxyCODONE Hydrochloride 10 mg tablet 1 tab(s) orally 3 times a day, Taking Lidocaine, Topical 4% film 1 patch applied topically once a day, Taking baclofen 10 mg tablet 1 tab(s) orally 3 times a day, Medication List reviewed and reconciled with the patient * Allergies: n aproxen: hives - Allergy, tramadol: hives - Allergy. Objective: * Vitals: B P:97/63, HR:75, Pain VAS (0-10):8, Ht: 65, Wt:215, BMI:35.77 Index. * Examination: G eneral Examination: Nurse/Recruiting Consultant: Jayda Ryan-Zaira Lanza 10/21/2024 9:23:47 AM > . General Appearance: w ell-nourished [...] ERIN. Assessment: * Assessment: 1. O ther intermediate manager (current) drug therapy - Z79.899 (Primary) 2 . S pondylosis without myelopathy or radiculopathy, lumbosacral region - M47.817 3 . M alignant neoplasm of unspecified part of unspecified bronchus or lung - C34.90 Mr. Covarrubias is a 63-year-old who returns today for office visit and medication refill. He has been a longstanding patient and stable on his medications for quite some time. Apparently he has had some increasing issues with his neck pain. He was reevaluated by neurosurgery and no surgical recommendation was made. He was told that he could have potentially fusion but that was not advisable and likely not covered by the insurance. He does have known facet arthropathy with some neuroforaminal narrowing. We have done medial branch blocks in the past in the mid cervical region. He is apprehensive about the injection therapy and does not really want to go through with that again. I did suggest to him that that might be the best bet if were to try and minimize his reliance on his pain medication and potentially get him some intervals time with minimal pain. He states that he will think about redoing the injection therapy once again. Medication tineo he currently relies on oxycodone 10 mg 1 p.o. 3 times daily. He denies any side effect of the medicine. [place] and UDS were reviewed. Opioid risk assessment is low 10/21/2024 The patient is a 63-year-old male who presents today for a follow-up visit regarding pain management and medication refills. He reports ongoing severe pain, rated at 8/10, with minimal relief from his current regimen. He is currently prescribed oxycodone 10mg TID, which he states provides only about 15% relief lasting approximately 1.5 to 2 hours. He denies any side effects from the medication. His worst pain is located in the lower back, shoulders, knees (right greater than left), and left hand. He describes the pain as constant and always present, with aching, burning, sharp, stabbing, numbness, and tingling qualities. Pain is worsened by walking, sitting, and lifting and is only somewhat alleviated by lying down. Pain significantly interferes with his ability to work and perform daily activities. Despite previous interventional treatmentspecifically a right-sided RFA at L3-L5 on 05/18/2020, which provided only 20% relief for one dayhe currently refuses any further injections or therapies and is not participating in any other rehabilitative efforts. The patient was argumentative during the visit, repeatedly questioning medication dates and pickup times, despite multiple attempts to clarify. He eventually walked out of the visit. Of note, his last three definitive urine drug screens have returned negative for prescribed medications, raising concerns for compliance. He is also managed by Dr. Thomas in [place] for additional medications, including Ambien, gabapentin, and tizanidine. Due to recent UDS findings and behavior, he will require a pill count in the near future. Refills for oxycodone 10mg TID, baclofen 10mg TID, and daily lidocaine patches were sent today. A definitive screen has been ordered given the history of three consecutive negative definitive UDS results. Follow-up is scheduled in two months. Plan: * Treatment: Value Reference Range H eroin Metabolite (6AM) NEG * A mphetamine (AMP) NEG * B enzodiazepine (ANKUR) NEG * B uprenorphine NEG * C ocaine (BENNETT) NEG * H ydrocodone (HYD) NEG * M ethadone (MTD) NEG * O piate (OPI) NEG * O xycodone (OXY) POS * Karla Saldivar 10/21/2024 9:37:35 AM >Red (VICE PRESIDENT OF NURSING SHEARING SUPERVISOR-BC-BEBETO)Mirna 10/21/2024 3:29:46 PM > , (Confirm All) Send specimen for definitive testing on Amphetamines, Anticonvulsants, Antitussive, Barbiturates,Bath Salts, Benzodiazepines, Buprenorphine, Fentanyl,CONSTANTINE Analogue, Heroin, Illicits, Methadone, Methylphenidate, Muscle Relaxants, Nicotine, Opiates, Opioid Antagonist, Other Anxiolytic,Recreational Compounds, Sleep Aids, SSRI/SNRI,Synthetic Cannabinoids,Tricyclics drug classes Notes: 10/21/2024 1. Refill Oxycodone 10 mg TID 2.F/U 2 months 3. Refill baclofen 10mg TID 4. Refill lidocaine patches daily 5. Screen Expected,Sent for Definitive bc of last 3 neg definitives,PILL COUNT NEAR FUTURE ?? * Procedures: Sidra MANDUJANO ENCOUNTER AND OVERSIGHT: Consult Performed By: Nataliia silva ([facility] SHEARING SUPERVISOR-BC-BEBETO)Mirna 10/25/2024 11:24:01 AM >. c ollaborated treatment plan with Mil Jordan M.D. , supervising physician who was present in office during consultation. * Follow Up: 2 Months * * Electronically signed by Amado Moon ([facility] SHEARING SUPERVISOR-BC-BEBETO) on 10/25/2024 at 11:44 AM CDT Sign off status: Completed true * Provider: Mil Jordan II, M.D. Date: 0 10/21/2024 Generated for Seema terrell/Erick/Joseitting on: 0 12/12/2024 08:20 AM CDT History and Physical Notes * [...] to proceed. He had previously relied on Tun[place] 10/325 one by mouth 3 times a day. He denies side effects to this medication. [place] and UDS were reviewed today. Opioid risk [...] evidence of myopathy. PHYSICAL/AQUA THERAPY/DME/OT HER HISTORY: 2018- Current (02/2022) at [facility], patient reported no relief 2024- No therapies reported as of 10/21/2024 PERTINENT SURGICAL EVALUATIONS/SPECIALIST CONSULTS No prior surgical [...] MODERATE RISK membrane stabilizer benzodiazepine URINE DRUG TESTIN12/04/2023 Screen Ex pected 02/02/2024 Screen Expected 04/05/2024 Screen Unexpected(-Oxy) Definitive Unexpected (neg) 06/23/2024 Screen Unexpected (neg) Definitive Unexpected (all neg) 08/26/2024 Screen Unexpected (all neg) Definitive Unexpected (all neg, + ambien) 10/21/2024 Screen Expected,Sent for Definitive, MONITORING: Morphine Equivalent (MME): 45 EDEN reviewed today and appropriate TESTING/RISK ASSESSMENTS ORT Score/Result:0 TODAYS PAIN EVALUATION MEDICATION FOLLOW UP: The patient is currently prescribed Oxycodone 10mg TID, which provides 15% relief of pain symptoms for 1.5 hour. The last dose was taken 10/21/2024. Denies side effects CURRENT PAIN SYMPTOMS: Location of Worst Pain:: Low Back, Knee(s), Shoulder(s), Hand knee (RT), hand (LT) Pain Frequency:: constant, always Pain Description:: aching, b urning, sharp, stabbing, numb, tingling Average Pain Score VAS:: 8 Pain Exacerbation:: walking, sitting, li fting Pain Alleviation:: Laying down ADL/Quality of Life Interference:: work PROCEDURAL FOLLOW UP: Examination Category Sub-Category Detail Notes Category Not es General Examination HEENT: unremarkable Neck, Thyroid : supple Heart: regular rate Extremities: no clubbing, no kassy a General Appearance: well-nourished indiv idual in no acute distress. The patient is alert and oriented and cooperative for evaluation Skin normal, no rash Neurologic Exam: Patient ambulates wi th an antalgic gait, pitched forward Nurse/Recruiting Consultant: Ibeth)Anaya 10/21/2024 9:23:47 AM > Lumbar Spine/Lower Back Straight leg [...]
--- OUTSIDE RECORDS SUMMARY | 2024-11-11 10:50 | XMS_ITS | Encounter Summary ---
Author Organization Healthcare Address [address] [place] [address] Care Team Providers Care Hookman Name Role Phone Hilton Maria MD Unavailable Philip Khan MD Primary Care Provider + [phone] Reason for Visit * Reason Comments Follow-up Encounter Details Date Type Department Care Team (Late st Contact Info) Description 11/11/2024 10:50 AM EDT Office Visit [facility] [address] [place] [phone] Berenice Silver MD [address] [address] Numbness and tingling in left hand (Primary Dx) Social History Tobacco Use Types Packs/Day Years Used Date Smoking Tobacco: Former Cigarettes 1.5 30 0 06/08/1988 - 2018 Passive Smoke Exposure: Past Smokeless [...] Sign Reading Time Taken Comments Blood Pressure 124/74 11/11/2024 10:12 AM EDT Pulse 80 11/11/2024 10:12 AM EDT Temperature - - Respiratory Rate - - Oxygen Saturation 98% 11/11/2024 10:12 AM EDT Inhaled Oxygen Concentration - - Weight 95.3 kg (210 lb) 11/11/2024 10:12 AM EDT Height 165.1 cm (5' 5 ) 11/11/2024 10:12 AM EDT Body Mass Index 34.95 11/11/2024 10:12 AM EDT documented in this encounter Miscellaneous Notes * Progress Notes - La Schwab MD - 11/11/2024 10:50 AM EDT Hand Surgery Clinic Note CC: bilateral hand numbness/paresthesia HISTORY OF PRESENT ILLNESS: Seamus Persaud is a 63 y.o. male with PMHx of DM, CKD, COPD, prior MA/CVA, C2-C3 cervical stenosis, C5-C6 osteophyte formation and radiculopathy who presents for further evaluation of his bilateral hand numbness/paresthesia. He reports numbness of his left ring and small fingers for a few years and states he underwent leftendoscopic carpal tunnel release (12/21/23) in [place] for this. He states since then, he has noticed new onset numbness in his left thumb and index finger and persistent numbness in his ring and small fingers. However, he states this thumb and index finger are the most bothersome to him. He reports numbness of his digits of his right hand as well but not as severe or bothersome to him. 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 He then underwent US which did not demonstrate any evidence of median nerve entrapment. He presents today to discuss US results and next steps. Of note, he has hx of C5 6 osteophyte formation who was scheduled for surgical intervention but insurance denied his surgery. Patient was seen by spine in June of 2024 and a C-spine MRI was performed, and at follow-up afterwards neurosurgeon did not recommend any neurosurgical intervention but recommended following with pain management for possible C5-6 facet injections. PAST MEDICAL HISTORY: Past Medical History[1] PAST SURGICAL HISTORY: 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[2] MEDICATIONS: Current Medications[3] ALLERGIES: Allergies[4] SOCIAL HISTORY: Social History[5] FAMILY HISTORY Family history is as noted on the history intake form which was reviewed and scanned into [employer]. Negative for bleeding disorders, clotting disorders or [...] air, no audible stridor or wheeze CV: extremities well perfused, RRR PSYCH: Pleasant and normal affect NEURO: Alert and oriented x 3. Cranial nerves grossly intact, speech intact Left UPPER EXTREMITY: Is able to form a composite fist, weakened imager strength. 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 IMAGING: FINDINGS: Right wrist: There is no soft tissue mass or abnormal vascularity. The median nerve appears normal in its size and echogenicity. Left wrist: No abnormal vascularity or soft tissue mass. Median nerve appears normal in size. Echogenicity appears within normal limits. IMPRESSION: No evidence of median nerve compression. ASSESSMENT/PLAN: Seamus Persaud is a 63 y.o. male presenting for continued evaluation of bilateral hand numbness. We discussed the etiology of this diagnosis including carpal tunnel syndrome, cervical radiculopathy, diabetic neuropathy. We discussed that EMG and US findings are not completely convincing that carpal tunnel syndrome is the etiology of his symptoms. In this context, we discussed that provocative testing with carpal tunnel steroid injection would be beneficial to help further elucidate the diagnosis to determine if revision carpal tunnel release would be beneficial. If steroid injection fails to improve his symptoms, then we discussed potentially referring him to neurology for further evaluation for neuropathy as etiology of his symptoms. Patient was agreeable to this plan. Plan: - Left carpal tunnel steroid injection performed today - RT in 4 weeks for re-evaluation PROCEDURE: The patient elected to have an injection(s). The risks of corticosteroid injection including (but not limited to) bleeding, intravascular injection, damage to nerves, infection, and hypopigmentation of the skin, fat atrophy, and ineffectiveness were explained in detail. The patient voiced understanding of the risks and gave consent to proceed. Advanced imaging with ultrasound guidance was utilized to improve precision and confirm injection accuracy/deposition. Under sterile conditions and ultrasound guidance, 1cc kenalog 40mg/ml and 1cc of 1% lidocaine without epinephrine were injected into the: Left carpal tunnel The patient tolerated injection(s) well. I did student loan counselor the patient that, after the lidocaine wears off, some patients feel worse/sore for the first 48-72 hours, but should reach full effect by 2 weeks. I saw and evaluated the patient with the resident/fellow. I discussed the case with the resident/fellow and agree with the findings and plan as documented. and I was present for the entirety of the procedure(s). Berenice Silver MD [1] Past Medical History: Diagnosis Date Chronic kidney disease Conversions - Other Blurry Vision Conversions - [...] pneumonia Sleep apnea intolerant to cpap. Stroke (CMS/[facility]) had TIA 2015. Unspecified abdominal pain Stomach pain [2] Past 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: Procedure Laterality Date CHOLECYSTECTOMY N/A Cholecystectomy from [facility] GALLBLADDER SURGERY HAND SURGERY [id number] KNEE SURGERY N/A Knee Surgery from [facility] OTHER SURGICAL HISTORY N/A History of shoulder surgery from [facility] OTHER SURGICAL HISTORY N/A History of cholecystectomy from [facility] OTHER SURGICAL HISTORY N/A History of knee surgery from [facility] SHOULDER SURGERY N/A Shoulder Surgery from [facility] [3] Current Outpatient Medications Medication Sig Dispense Refill oxyCODONE-acetaminophen (Percocet) 10-325 MG tablet Take 1 tablet by mouth if needed. albuterol 108 (90 Base) MCG/ACT inhaler Inhale 2 puffs if needed. B-D ULTRAFINE III SHORT PEN 31G X 8 MM misc (Patient not taking: Reported on 11/11/2024) benzonatate (Tessalon) 100 MG capsule (Patient not taking: Reported on 11/11/2024) clopidogrel (Plavix) 75 MG tablet Take 1 tablet (75 mg) by mouth 1 (one) time each day at the same time. ergocalciferol (Vitamin D-2) 1.25 MG (64334 UT) capsule Take 1 capsule (50,000 Units) [...] for diabetes. lidocaine (Lidoderm) 5 % patch (Patient not taking: Reported on 11/11/2024) lisinopril 5 MG tablet 1 (one) time each day at the same time. metoprolol tartrate (Lopressor) 25 MG tablet Take 1 tablet (25 mg) by mouth every 12 (twelve) hours. OneTouch Ultra test strip oxyCODONE (Roxicodone) 10 MG immediate release tablet (Patient not taking: Reported on 11/11/2024) pantoprazole (ProtoNix) 20 MG EC tablet (Patient not taking: Reported on 11/11/2024) ranolazine (Ranexa) 1000 MG 12 hr tablet Take 1,000 mg by mouth 2 (two) times a day. (Patient not taking: Reported on 11/11/2024) rosuvastatin (Crestor) 40 MG tablet Spiriva HandiHaler [...] No current facility-administered medications for this visit. [4] Allergies Allergen Reactions Naproxen Hives, Other - please document in the comment field and Unknown - Patient states they do not know rxn details Other reaction(s): hives Tramadol Hives, Other - please document in the comment field, Nausea and Unknown - Patient states they do not know rxn details Other reaction(s): hives [5] Social History Tobacco Use Smoking status: Former Current packs/day: 0.00 Average packs/day: 1.5 packs/day for 30.0 years (45.0 ttl pk-yrs) Types: Cigarettes Start date: 06/08/1988 Quit date: 2019 Years since quittin.4 Passive exposure: Past Smokeless tobacco: Never Vaping Use Vaping status: Never Used Substance Use Topics Alcohol use: Yes Comment: very rarely social. Drug use: Yes Types: Marijuana Comment: once every 2-3 weeks. last used 04/21/22. documented in this encounter Plan of Treatment Upcoming Encounters Date Type Department Care Team (Late st Contact Info) Description 12/14/2024 10:30 AM EDT Office Visit [facility] [address] [place] [phone] Berenice Silver MD [address] [phone] 06/16/2025 8:20 AM EST Office Visit [facility] [address] [place] [address] Christine Deng, DIRECTOR REACTOR PROJECTS [address] [address] documented as of this encounter Visit Diagnoses Diagnosis Numbness and tingling in left hand- Primary Disturbance of skin sensation documented in this encounter Administered Medications Inactive Administered Medications - up to 3 most recent administrations Medication Order MAR Action Action Date Dose Rate Site dexamethasone (Decadron) injection 4 mg 4 mg, Intra-articular, Once, 1 dose, On Thu11/11/24 at 1200, RoutineIndications:Numbness and tingling in left hand Given by Other 11/11/2024 11:04 AM EDT 4 mg lidocaine (Xylocaine) 1 % injection 1 mL 1 mL, Injection, Once, 1 dose, On Thu11/11/24 at 1200, RoutineIndications:Numbness and tingling in left hand Given by Other 11/11/2024 11:04 AM EDT 1 mL documented in this encounter Additional Health Concerns Assessment Noted Time A fall risk assessment has been complete d for the patient 09/22/2024 11:14 AM EDT A Body Mass Index follow-up plan has been documented for the patient 11/11/2024 11:29 AM EDT documented as of this encounter Care Teams Hookman Relationship Specialty Start Date End Date Philip Khan MD [address] [place] [address] PCP - General Internal Medicine 04/01/22 Hilton Maria MD [address] [facility] [address] [place] [address] Surgeon Neurosurgery 04/01/22 documented as of this encounter
--- OUTSIDE RECORDS SUMMARY | 2024-11-18 10:20 | XMS_ITS | Encounter Summary ---
Author Organization [facility] Address [address] [place] [address] Care Team Providers Care Counselor Dormitory Name Role Phone Hilton Maria MD Unavailable Philip Khan MD Primary Care Provider + [phone] Reason for Visit * Reason Comments Chronic Kidney Disease Pt is a 63 year o ld female that presents to the clinic on this date for a follow up over stage 3 chronic kidney disease. Encounter Details Date Type Department Care Team ([facility] st Contact Info) Description 11/18/2024 10:20 AM EDT Office Visit [facility] [address] [place] [address] Christine Deng, WET END SUPERVISOR [address] [address] Stage 3b chronic kidney disease (CMS/HCC) (Primary Dx); Diabetes mellitus due to underlying condition with diabetic chronic kidney disease, unspecified CKD stage, unspecified whether half-way insulin use (CMS/HCC); Essential hypertension; Chronic kidney [...] hesitancy, frequency, and incontinence. 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 Smokes 1-2 packs until 2019. [...] Description 12/14/2024 10:30 AM EDT Office Visit [facility] [address] [place] [phone] Berenice Silver MD [address] [place] [phone] 06/16/2025 8:20 AM EST Office Visit [facility] [address] [place] [address] Christine Deng APRN [address] [address] Scheduled Orders Name Type Priority Associated Diagnoses Orde r Schedule CBC W/O Differential Lab Routine Stage 3b chronic kidney disease ([facility]/HCC) Expected: 11/18/2024 (Approximate), Expires: 05/20/2026 Protein, Random, Urine with Creatinine Lab Routine Stage 3b chronic kidney disease ([facility]/HCC) Expected: 11/18/2024 (Approximate), Expires: 05/20/2026 PTH Intact Total Lab Routine Stage 3b chronic kidney disease ([facility]) Expected: 11/18/2024 (Approximate), Expires: 05/20/2026 Renal Function Panel, Plasma Lab Routine Stage 3b chronic kidney disease ([facility]) Expected: 11/18/2024 (Approximate), Expires: 05/20/2026 Urinalysis with reflex microscopic (Culture NOT Included) Lab Routine Stage 3b chronic kidney disease ([facility]) Expected: 11/18/2024 (Approximate), Expires: 05/20/2026 Vitamin D 25 Hydroxy Lab Routine Stage 3b chronic kidney disease ([facility]) Expected: 11/18/2024 (Approximate), Expires: 05/20/2026 documented as of this encounter Visit Diagnoses Diagnosis Stage 3b chronic kidney disease ([facility])- Primary Diabetes mellitus due to underlying condition with diabetic chronic kidney disease, unspecified CKD stage, unspecified whether half-way insulin use ([facility]) Essential hypertension Unspecified essential hypertension Chronic kidney disease-mineral and bone disorder documented in this encounter Additional Health Concerns Assessment Noted Time A fall risk assessment has been complete d for the patient 09/22/2024 11:14 AM EDT A Body Mass Index follow-up plan has been documented for the patient 11/18/2024 11:50 AM EDT documented as of this encounter Care Teams Counselor Dormitory Relationship Specialty Start Date End Date Philip Khan MD [address] [place] [address] PCP - General Internal Medicine 04/01/22 Hilton Maria MD [address] [place] [address] Surgeon Neurosurgery 04/01/22 documented as of this encounter
--- OUTSIDE RECORDS SUMMARY | 2024-12-12 09:20 | XMS_ITS | Clinical Summary ---
Author Organization [facility] Address [facility] [address] Care Team Providers Care Delivery Route Driver Name Role Phone Hilton Maria MD Unavailable Philip Khan MD Primary Care Provider + [phone] Allergies Active Allergy Reactions Criticality Noted Date [...] 2 Active ergocalciferol (Vitamin D-2) 1.25 MG (62318 UT) capsule Take 1 capsule (50,000 Units) [...] Sensor) misc USE DIRECTED EVERY 14 DAYS 5 Active Active Problems Problem Noted Date Diagnosed Date Acute kidney failure, unspecified 10/10/2024 Type 2 diabetes mellitus wit h diabetic neuropathy, unspecified 05/27/2024 Chronic kidney disease, stage 3 unspecified 01/2024 Hyperlipidemia 11/27/2023 Gastroesophageal reflux disease 11/27/2023 Essential hypertension 11/27/2023 Anxiety 11/27/2023 Cervical disc disorder at C5-C6 level with radic ulopathy 04/01/2022 Overview (04/01/2022): Added automatically from request for surgery [id number] Encounters Date Type Department Care Team Description 11/18/2024 10:20 AM EDT Office Visit [facility] [address] [place] [address] Christine Deng APRN Stage 3b chronic kidney disease (CMS/HCC) (Primary Dx); Diabetes mellitus due to underlying condition with diabetic chronic kidney disease, unspecified CKD stage, unspecified whether snf insulin use (CMS/HCC); Essential hypertension; Chronic kidney disease-mineral and bone disorder 11/18/2024 Travel 11/17/2024 Travel 11/11/2024 10:50 AM EDT Office Visit [facility] [address] [place] [address] Berenice Silver MD Numbness and tingling in left hand (Primary Dx) 11/11/2024 Travel 10/27/2024 Telephone [facility] [address] [place] [address] Berenice Silver MD HCN - Patient Message 10/20/2024 1:37 PM EDT - 10/20/2024 11:59 PM EDT Hospital Encounter [facility] [address] [place] [address] Numbness and tingling in left hand Discharge Disposition: Home or Self Care 10/20/2024 Travel 09/28/2024 10:40 AM EDT Office Visit [place] [address] [place] [address] Berenice Silver MD Numbness and tingling in left hand (Primary Dx) 09/28/2024 Travel 09/22/2024 11:00 AM EDT Procedure Visit [facility] [address] [place] [address] Geovany Sampson MD Numbness 09/22/2024 Travel from [...] Office Visit [facility] [address] [place] [address] Berenice Silver MD [address] [place] [address] 06/16/2025 8:20 AM EST Office Visit [facility] [address] [place] [address] Christine Deng, STUDENT AFFAIRS DEAN [address] [facility] [address] [place] [address] Health Maintenance Due Date Last Done Comments [facility]-HIV Screening 1962 [facility]-Infant/Child/Adol SDOH Screenings 1962 [...] - Risk 60-74 years 1-dose series) 2022 [id number] Vaccine (3 - season) 2024 09/19/2020, 08/22/2020 [facility]-Influenza Vaccine (#1) 2025 04/19/2018 [facility]-Depression Screening 09/22/2025 09/22/2024 [facility]-Hepatitis [...] Adults <6.0% Children and Adolescents <7.5% Source: [place] [employer]. Standards of medical care in diabetes,2017. Diabetes Care.2017:40 (suppl 1):S1-S135. HbA1c assay performed by an ion-exchange chromatography method that is certified traceable to the DCCT. Hilton Maria MD LAB BLOOD ORDERA BLES Final Result [facility] [address] [place] [address] * CT Angio Pulmonary Embolism (10/27/2019 2:46 [...] Flores IMG CT PROCEDURES Final Result * R[place] Hepatitis C Antibody (10/27/2019 1:10 PM EDT) [place] Hepatitis C Ab NEGATIVE Reference Range: Negative SUNQUEST 10/27/2019 1:10 PM EDT 10/27/2019 1:19 PM EDT us Bigg Flores LAB BLOOD ORDERABLES Final Resul t SUNQUEST from Last 3 Months or Most Recently Relevant to Health Maintenance Insurance [place] [id number] [facility] MEDICAID Care Teams Delivery Route Driver Relationship Specialty Start Date End Date Philip Khan MD [address] [place] [address] PCP - General Internal Medicine 04/01/22 Hilton Maria MD [address] [place] [address] Surgeon Neurosurgery 04/01/22
--- OUTSIDE RECORDS SUMMARY | 2024-12-12 09:20 | XMS_ITS | Encounter Summary ---
Author Organization Healthcare Address [address] [place] [address] Care Team Providers Care Supervisor Housecleaner Name Role Phone Hilton Maria MD Unavailable Philip Khan MD Primary Care Provider + [phone] Encounter Details Date Type Department Care Team (Late Contact Info) Description 01/21/2023 Orders Only External Location [address] [place] [address] Enrico Flores MD 110 [facility] [address] [place] [address] Social History Tobacco Use Types [...] Office Visit [facility] [address] [place] [address] Berenice Silver MD [address] [place] [address] 06/16/2025 8:20 AM EST Office Visit [facility] [address] [place] [phone] Christine Deng, CHEESE GRADER [address] [facility] [address] [place] [address] documented as of this encounter [...] documented as of this encounter Care Teams Supervisor Housecleaner Relationship Specialty Start Date End Date Philip Khan MD [address] [place] [address] PCP - General Internal Medicine 04/01/22 Hilton Maria MD [address] [facility] [address] [place] [address] Surgeon Neurosurgery 04/01/22 documented as of this encounter
--- OUTSIDE RECORDS SUMMARY | 2024-12-12 09:21 | XMS_ITS | Patient Health Record ---
Author Organization [facility] Address [address] [place] [address] Care Team Providers Care Alternative Medicine Practitioner Name Role Phone Reji Jordan II Unavailable [...] Oxycodone (OXY) POS Urine Test ANALYZER Reviewed date:06/24/2024 01:51:09 PM Interpretation:ALL NEG Performing Lab: Notes/Report: ALL NEG Heroin Metabolite (6AM) NEG Amphetamine (AMP) NEG Benzodiazepine (ANKUR) NEG Buprenorphine NEG Cocaine (BENNETT) NEG Hydrocodone (HYD) NEG Methadone (MTD) NEG Opiate (OPI) NEG Oxycodone (OXY) NEG Urine Test LCMS Definitive Reviewed date:09/20/2024 06:38:46 AM Interpretation:+gbp+benzo Performing Lab: Notes/Report: +gbp+benzo Urine Test LCMS Definitive Reviewed date:08/16/2024 09:48:10 AM Interpretation:+gbp Performing Lab: Notes/Report: +gbp Urine Test ANALYZER Reviewed date:08/29/2024 10:56:03 AM Interpretation:ALL NEG Performing Lab: Notes/Report: ALL NEG Heroin Metabolite (6AM) NEG Amphetamine (AMP) NEG Benzodiazepine (ANKUR) NEG Buprenorphine NEG Cocaine (BENNETT) NEG Hydrocodone (HYD) NEG Methadone (MTD) NEG Opiate (OPI) NEG Oxycodone (OXY) NEG Urine Test ANALYZER Reviewed date:04/06/2024 08:33:17 AM [...] NEG Opiate (OPI) NEG Oxycodone (OXY) POS Reason For Referral No Information Medications Medication SIG (Take, Route, Frequency, Duration) Notes Start Date End Date Status baclofen 10 mg 1 tab(s) orally 3 times a day; Duration: 30 days Active ProAir HFA 90 mcg/inh 2 puff(s) inhaled every 6 hours 05/13/2022 Active Lidocaine, Topical 4% 1 patch applied topically once a day; Duration: 30 days Active Metoprolol Tartrate 25 mg 1 tab(s) orally 2 times a day; Duration: 30 day(s) 05/13/2022 Active Jardiance 25 mg 1 tab(s) orally once a day (in the morning) 05/13/2022 Active clopidogrel 75 mg 1 tab(s) orally once a day; Duration: 30 day(s) 05/13/2022 Active TiZANidine Hydrochloride 4 mg 1 tab(s) orally 3 times a day as needed; Duration: 30 day(s) Active Plavix 75 mg 1 [...] the morning); Duration: 30 day(s) 06/04/2022 Active Problems Problem Type SNOMED Code ICD Code Onset Dates Problem Status W/U Status Risk Notes Problem Malignant neoplasm of unspecified part of unspecified bronchus or lung (C34.90) Active confirmed Problem Cervical spondylosis without myelopathy (936300385) Other spondylosis with radiculopathy, cervical region (M47.22) Active confirmed Problem Lumbosacral spondylosis without myelopathy (disorder) (10684232) Spondylosis without myelopathy or radiculopathy, lumbosacral region (M47.817) Active confirmed Problem Long-term current use of drug therapy (491617164) Other long term care pharmacist (current) drug therapy (Z79.899) Active confirmed Vital Signs Heart Rate 75 /min 10/21/2024 Blood pressure diastolic 63 mm Hg 10/21/2024 Height 65 in 10/21/2024 Blood pressure systolic 97 mm Hg 10/21/2024 Weight 215 lbs 10/21/2024 BMI 35.77 kg/m2 10/21/2024 Encounters Encounter Location Date Provider Diagnosis [facility] [address] [place] [address] 02/02/2024 Reji Jordan Other [facility] (current) drug therapy Z79.899 ; Spondylosis without myelopathy or radiculopathy, lumbosacral region M47.817 and Malignant neoplasm of unspecified part of unspecified bronchus or lung C34.90 [facility] [address] [place] [address] 04/05/2024 Reji Joradn Other long term care pharmacist (current) drug therapy Z79.899 ; Spondylosis without myelopathy or radiculopathy, lumbosacral region M47.817 and Malignant neoplasm of unspecified part of unspecified bronchus or lung C34.90 [facility] [address] [place] [address] 06/23/2024 Reji Jordan Other [facility] (current) drug therapy Z79.899 ; Spondylosis without myelopathy or radiculopathy, lumbosacral region M47.817 and Malignant neoplasm of unspecified part of unspecified bronchus or lung C34.90 [facility] [address] [place] [address] 08/26/2024 Reji Jordan Other long term care pharmacist (current) drug therapy Z79.899 ; Spondylosis without myelopathy or radiculopathy, lumbosacral region M47.817 and Malignant neoplasm of unspecified part of unspecified bronchus or lung C34.90 [facility] [address] [place] [address] 10/21/2024 Reji Jordan Other [facility] (current) drug therapy Z79.899 ; Spondylosis without myelopathy or radiculopathy, lumbosacral region M47.817 and Malignant neoplasm of unspecified part of unspecified bronchus or lung C34.90 [facility] [address] [place] [address] 10/25/2024 Reji Jordan [facility] [address] [place] [address] 02/02/2024 Reji Jordan Other [facility] (current) drug therapy Z79.899 [facility] [address] [place] [address] 04/05/2024 Reji Jordan Other long term care pharmacist (current) drug therapy Z79.899 [facility] [address] [place] [address] 04/06/2024 Reji Jordan [facility] [address] [place] [address] 05/31/2024 Reji Jordan Other [facility] (current) drug therapy Z79.899 [facility] [address] [place] [address] 06/23/2024 Reji Jordan Other long term care pharmacist (current) drug therapy Z79.899 [facility] [address] [place] [address] 06/23/2024 Reji Jordan [facility] [address] [place] [address] 08/26/2024 Reji Jordan Other [facility] (current) drug therapy Z79.899 [facility] [address] [place] [address] 10/21/2024 Reji Jordan Other long term care pharmacist (current) drug therapy Z79.899 [facility] [address] [place] [address] 10/28/2024 Reji Jordan Assessments Encounter Date Diagnosis (ICD Code) Assessment Notes Treatment Notes Treatment Clinical Notes Section Notes 02/02/2024 Other long term care pharmacist (current) drug therapy (ICD-10 - Z79.899) 02/02/2024 [...] and F/U in 2 months. 02/02/2024 Other [facility] (current) drug therapy (ICD-10 - Z79.899) 02/02/2024 [...] 10mg TID. Denies side effects. Salvador and ABILIO reviewed. Refills and F/U in 2 months. 04/05/2024 Spondylosis without myelopathy or radiculopathy, lumbosacral [...] and F/U in 2 months. 04/05/2024 Other long term care pharmacist (current) drug therapy (ICD-10 - Z79.899) 04/05/2024 [...] and F/U in 2 months. 04/05/2024 Other long term care pharmacist (current) drug therapy (ICD-10 - Z79.899) 05/31/2024 Other [facility] (current) drug therapy (ICD-10 - Z79.899) 06/23/2024 [...] and F/U in 2 months. 06/23/2024 Other [facility] (current) drug therapy (ICD-10 - Z79.899) 06/23/2024 [...] and F/U in 2 months. 06/23/2024 Other [facility] (current) drug therapy (ICD-10 - Z79.899) 08/26/2024 [...] Opioid risk assessment is low 08/26/2024 Other long term care pharmacist (current) drug therapy (ICD-10 - Z79.899) 08/26/2024 [...] Opioid risk assessment is low 08/26/2024 Other [facility] (current) drug therapy (ICD-10 - Z79.899) 10/21/2024 Other [facility] (current) drug therapy (ICD-10 - Z79.899) 10/21/2024 [...] is also managed by Dr. Thomas in [place] for additional medications, including Ambien, gabapentin, and tizanidine. Due to recent UDS findings and behavior, he will require a pill count in the near future. Refills for oxycodone 10mg TID, baclofen 10mg TID, and daily lidocaine patches were sent today. A definitive screen has been ordered given the history of three consecutive negative definitive UDS results. Follow-up is scheduled in two months. 10/21/2024 Other long term care pharmacist (current) drug therapy (ICD-10 - Z79.899) 10/21/2024 Spondylosis without myelopathy or radiculopathy, lumbosacral [...] is also managed by Dr. Thomas in [place] for additional medications, including Ambien, gabapentin, and tizanidine. Due to recent UDS findings and behavior, he will require a pill count in the near future. Refills for oxycodone 10mg TID, baclofen 10mg TID, and daily lidocaine patches were sent today. A definitive screen has been ordered given the history of three consecutive negative definitive UDS results. Follow-up is scheduled in two months. 08/26/2024 Malignant neoplasm of unspecified part [...] were reviewed. Opioid risk assessment is low 06/23/2024 Malignant neoplasm of unspecified part of [...] is also managed by Dr. Thomas in [place] for additional medications, including Ambien, gabapentin, and tizanidine. Due to recent UDS findings and behavior, he will require a pill count in the near future. Refills for oxycodone 10mg TID, baclofen 10mg TID, and daily lidocaine patches were sent today. A definitive screen has been ordered given the history of three consecutive negative definitive UDS results. Follow-up is scheduled in two months. 05/31/2024 04/05/2024 Seamus presents for follow up. Primary [...] Refills and F/U in 2 months. 08/23/2024 06/23/2024 Seamus presents for follow up. Primary [...] F/U in 2 months. Plan Of Treatment Pending Test Test Name Order Date Urine Test LCMS Definitive 10/21/2024 Next Appt Details Provider Name:Ted Barry ms, 12/16/2024 09:30:00 AM, [address], [place], [address], Insurance Providers Payer Name Payer Address Payer Phone Subscriber Number Group Number Insured Name Patient Relationship to Insured Coverage Start Date Coverage End Date [employer] [address] [place] [address] [id number] [facility] Seamus Persaud Self - patient is the insured Medical (General) History Medical History History ICD Code COPD [address] Medina HTN [address] Gonzalez Diabetes type [address] Elizabeth ht Stage 3 lung cancer [address] Saeed GERD [address] Medina Kidney injury [address] Medina headaches [address] Medina Depression [address] Medina TIA [address] Medina Neuropathy [address] Medina CHF [address] Medina [place] [address] Gonzalez Arthritis [address] Medina Anemia [address] Medina CAD [address] Gonzalez 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 Surgery Date(Month/Year) pt had surgery on left wrist at [facility]. (OP) 12/21/2023 EGD- [facility] / OP 06/09 021 [facility] W/out stents/ Patrick Clayton (OP) 07/2018 EGD/EUS- Dr. Locke/ [facility] (OP) 07/28 19 Capsule endoscopy- Dr. Dickinson/ [facility] (O P) 09/[address] [facility]- Dr Reba hernández (OP) 2018 Cardiac Ablation for SVT at / (OP) [address] Olvera/ [facility](OP) 01/2017 Rt Knee surgery X2- Dr. Hayes/ [facility] (OP) 2013 Lt shoulder- Dr. Dickerson/ [facility] (OP) 20 12 [facility]bladder- [facility](OP) 2009 Hospitalization History Reason Date(Month/Year) [facility] - Swollen Knee (RT) - OP 04/02/2024 heart/kidney [facility] 06/08/2023
--- OUTSIDE RECORDS SUMMARY | 2024-12-12 09:22 | XMS_ITS | Encounter Summary ---
Author Organization Healthcare Address [address] [place] [address] Care Team Providers Care Hog Grader Name Role Phone Hilton Maria MD Unavailable Philip Khan MD Primary Care Provider + [phone] Encounter Details Date Type Department Care Team [...] Description 12/14/2024 10:30 AM EDT Office Visit [facility] [address] [place] [address] Berenice Silver MD [address] [place] [phone] 06/16/2025 8:20 AM EST Office Visit [facility] [address] [place] [address] Christine Deng, ROD TAPE OPERATOR [address] [place] [address] documented as of this encounter Visit Diagnoses Not on filedocumented in this encounter Additional Health Concerns Assessment Noted Time A fall risk assessment has been complete d for the patient 09/22/2024 11:14 AM EDT A Body Mass Index follow-up plan has been documented for the patient 11/11/2024 11:29 AM EDT documented as of this encounter Care Teams Hog Grader Relationship Specialty Start Date End Date Philip Khan MD [address] [place] [address] PCP - General Internal Medicine 04/01/22 Hilton Maria MD [address] [place] [address] Surgeon Neurosurgery 04/01/22 documented as of this encounter
--- OUTSIDE RECORDS SUMMARY | 2024-12-12 09:22 | XMS_ITS | Continuity of Care Document ---
Author Organization [facility] [place] Address [address] [place] [address] Care Team Providers Care Transformer Mechanic Name Role Phone KYLER HOLLOWAY Primary Care Provider [phone] Assessment No assessment recorded. Plan of Treatment Reminders Order Date Submit Date Provider Last Modified By Organization Details Last Modified Time Details Appointments None recorded. Lab None recorded. Referral None recorded. Procedures None recorded. Surgeries None recorded. Imaging None recorded. Medication Orders Lantus Solostar U-100 Insulin 100 unit/mL (3 mL) subcutaneou s pen 2024 025 [facility], [address], [phone], 5 11:41:54 Patient TargetsNo targets recorded. Patient InstructionsNo instructions recorded. Reason for Referral None Reported. Problems Name Problem SNOMED Code Status Onset Date Resolution Date Notes Provider Name and Address Organization Details Recorded Time Chronic obstructive pulmonary disease 02704557 Active 2023 MATILDE Nunn [facility] [place] [facility] [place] 4 16:22:45 Chronic back pain 587771802 Active 2023 MATILDE Nunn [facility] [place] 4 16:22:55 Anxiety 76509215 Active 2023 MATILDE Nunn - [place] [facility] [place] 4 16:23:05 Coronary atheroscleros is 157693716 Active 2023 Nancybarbie Treadwell null, [place] - [facility] - [place] [facility] [place] 4 16:23:26 Essential hypertension 80483128 Active 2023 Nancybarbie Treadwell null, [place] - [facility] [place] 4 16:23:37 Neuropathy due to diabetes mellitus 298563495 Active 2023 Nancybarbie Treadwell null, [place] - [facility] [place] [facility] [place] 4 16:23:50 Hyperlipidemi a 31054833 Active 2023 Nancybarbie Treadwell null, [place] - [facility] [place] [facility] [place] 4 16:24:02 Gastroesophag eal reflux disease 437484178 Active 2023 Nancybarbie Treadwell null, [place] - [facility] [place] [facility] [place] 4 16:24:39 Insomnia 051873163 Active 2023 Nancybarbie Treadwell null, [place] - [facility] [place] [facility] [place] 4 16:24:48 Problem Notes None recorded. Procedures 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 Date Name Laterality Status Provider Name and Address Organization Details Recorded Time 2019 Colonoscopy completed Debra Jaramillo [place] - [facility] - [place] [facility] [place] 4 13:18:37 2019 esophagogastroduodenoscopy completed Juan CLAY[place] - [facility] - [place] [facility] [place] 4 13:18:55 2018 catheterization of left heart completed Lindsay Ferguson [place] - [facility] - [place] [facility] [place] 4 13:26:09 2016 destruction of lesion of heart completed Lindsay Rothamer [place] - [facility] - [place] [facility] [place] 4 13:25:03 2013 procedure on knee completed Lindsay Rojoamer [place] - [facility] - [place] [facility] [place] 4 13:19:36 2011 procedure on shoulder completed Lindsay Ferguson [place] - [facility] [place] [facility] [place] 4 13:20:13 2008 Cholecystectomy completed Lindsay GALDAMEZ [facility] & [place] 4 13:19:14 Imaging Results None recorded. Procedure Notes None recorded. Medical Equipment None Reported. Allergies Allergen ID Allergen Name Allergen Category Reaction Reaction Severity Criticality Documentation Date Start Date Code Code System Note Provider Name and Address Organization Details Recorded Time 050537 naproxen medicatio n hives nausea vomiting Not available Not available Not available Not available 07/06/2023 7258 RxNorm criti kim nguyen, MATILDE [facility] & [place] 4 09:50:08 700538 tramadol medicatio n hives nausea Not available Not available Not available 07/06/2023 64941 RxNorm brodyti kim nguyen, MATILDE [facility] & [place] 4 09:50:10 Medications Name Sig Start Date [...] completed Not Available Not Available Not Available loperamide 2 mg capsule TAKE 2 CAPSULES BY MOUTH now THEN TAKE 1 CAPSULE BY MOUTH AFTER each loose stool max daily DOSE 16 MG active Not Available Not Available No t Available ibuprofen 800 mg tablet 07/06 completed [...] Not Available Not Available No t Available terbinafine HCl 250 mg tablet Take 1 tablet every day by oral route as directed, for toenail fungus. 2024 active Not Available Not Available Not Avai lable famotidine 20 mg tablet TAKE ONE TABLET [...] Not Available torsemide 100 mg tablet TAKE ONE TABLET BY MOUTH ONCE A DAY FOR HIGH BLOOD PRESSURE active Not Available Not Available No t [...] Available Not Available No t Available ondansetron 4 mg disintegrat ing tablet DISSOLVE 1 TABLET ON THE TONGUE EVERY 6 HOURS NEEDED FOR NAUSEA AND VOMITING FOR 5 DAYS active Not Available Not Available No [...] 100 unit/mL (3 mL) subcutaneou s pen INJECT 35 UNITS ONCE A DAY SUBCUTANE OUSly AT BEDTIME FOR DIABETES active Not Available Not Available No t [...] Not Available Not Available FreeStyle Joselito 3 Parker active Not Available Not Available Not Available Vitals Date Recorded Body height Body mass index (BMI) Body weight Body temperature Oxygen saturation Oxygen saturation in Arterial blood by Pulse oximetry Heart rate Systolic And Diastolic Provider Name and Address Organization Details Last Updated DateTime 5 165.1 cm 35.8 kg/m2 29211.3 7 g 98.2 [degF] 98 % 98 % 110 /min 102/60 mm[Hg] Sera GALDAMEZ [facility] & [place] 5 11:03:36 Social History Question Answer Notes LastModified by Organizat ion Details LastModified Time Tobacco Smoking Status Former Smoker MATILDE Denson [facility] & [place] 01/14/2024 14:09:33 Do You Have An Advance Directive? No Information not available 01/14/2024 Are You Blind Or Do You Have Difficulty Seeing? Yes Information not available 01/14/2024 What Is Your Level Of Caffeine Consumption? Moderate [email or web address] Information not available 07/06/2023 What Was The Date Of Your Most Recent Tobacco Screening? 11/24/2023 Information not available 01/14/2024 Are You Passively Exposed To Smoke? No [email or web address] Information not available 01/14/2024 How Much Tobacco Do You Smoke? No [email or web address] Information not available 01/14/2024 How Many Years Have You Smoked Tobacco? 4 [email or web address] Information not available 01/14/2024 Sex: Unknown Functional Status Question Answer Note LastModified by Organizat ion Details LastModified Time Do you use any illicit or recreational drugs? No [email or web address] Information not available 01/14/2024 What is your level of alcohol consumption? Occasional [email or web address] Information not available 07/06/2023 Do you or have you ever used smokeless tobacco? Never used smokeless tobacco [email or web address] Information not available 01/14/2024 What is your exercise level? Occasional [email or web address] Information not available 01/14/2024 Mental Status Question Answer Note LastModified by Organization D etails LastModified Time Do you feel stressed (tense, restless, nervous, or anxious, or unable to sleep at night)? [id number] [email or web address] Information not available 01/14/2024 Family History Relationship Description Onset Age of this Age Resolved Age Notes LastModified by Organization Details LastModified Time Mother Coronary arterioscler osis [email or web address] Not available 12/07 08:51:42 Mother Hypertensive disorder [email or web address] Not available 2023 18:42:21 Mother Myocardial infarction [email or web address] Not available 09/16 18:42:29 Mother Family member [email or web address] Not available 12/07 08:51:42 Mother Heart disease [email or web address] Not available 07/28 08:00:31 Father Diabetes mellitus [email or web address] Not available 12/07 08:51:42 Father Hypertensive disorder [email or web address] Not available 2023 18:42:47 Father Cerebrovascu lar accident [email or web address] Not available 04/2024 18:43:01 Father Family member [email or web address] Not available 12/07 08:51:42 Sister Myocardial infarction [email or web address] Not available 09/16 18:43:06 Sister Malignant neoplastic disease x2 [email or web address] Not available 12/07 08:51:42 Sister Heart disease [email or web address] Not available 07/28 08:00:31 Brother Cerebrovascu lar accident [email or web address] Not available 04/2024 18:43:15 Brother Hypertensive disorder [email or web address] Not available 2023 18:43:19 Brother Diabetes mellitus [email or web address] Not available 12/07 08:51:42 Notes:4 brothers, 6 sisters, 1 son, 3 daughters, Medical History Condition Response Coronary Artery Disease Y Other Y COPD Y Spine Problems Y Obstructive Sleep Apnea Y Obesity Y Vision or Eye Problems Y Arthritis Y Cancer Y Stroke Y Headaches Y Kidney Disease Y Constipation Y Back Problems Y High Cholesterol Y Osteoporosis/Osteopenia Y Heart Attack (OK) Y Diabetes Y Congestive Heart Failure (CHF) Y Reflux/GERD Y Hypertension Y Immunizations Vaccine Type Date Status Note Provider Nam e and Address Organization Details Recorded Time COVID-19, mRNA, LNP-S, PF, 100 mcg/0.5mL dose or 50 mcg/0.25mL dose 1 completed Nancy nguyen, [place] - [facility] [place] [facility] [place] 07/06/2023 12:46:08 COVID-19, mRNA, LNP-S, PF, 100 mcg/0.5mL dose or 50 mcg/0.25mL dose 1 completed Nancy nguyen, [place] - [facility] [place] [facility] [place] 07/06/2023 12:46:08 Influenza, split virus, trivalent, PF 8 completed Nancy nguyen, [place] - [facility] [place] [facility] [place] 07/06/2023 12:46:08 Td (adult), 2 Lf tetanus toxoid, preservative free, adsorbed 7 completed Nancy nguyen, [place] - [facility] [place] [facility] [place] 07/06/2023 12:46:08 Past Encounters Encounter ID Performer Location Encounter Start Date Encounter Closed Date Diagnosis/Indication Diagnosis SNOMED-CT Code Diagnosis ICD10 Code Diagnosis Note [id number] Kyler Holloway MD [facility] [place] [address] [place] [address] 10/17/2024 10:52:22 10/17/2024 13:54:10 Type 2 diabetes mellitus 97752851 E11.9 A1C in hospital was 6.9% Given [...] remains on Jardiance, lisinopril and torsemide. Nausea 085042078 R11.0 unsure of initial etiology. Appears to [...] Dietrich Member ID Guarantor Name 10/17/2024 1 [facility] (MEDICAID REPLACEMENT - HMO) [id number] Seamus Persuad [id number] Seamus Persaud Notes Date Note Type Note Provider Name and Address Organization Details Recorded Time 10/17/2024 text/html Pt presents for Hospitalization F/U. Was admitted on October 08, and D/C'd 2 days later on ThuOctober 10. F/U appt scheduled October 14 for today-October 17. Initial c/o stomach pain and vomiting. Admitted with N/V, found to be hyperglycemic and with TISHA. 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 Currently on Lantus 35 units nightly in addition to his mealtime insulin of Humalog and daily Jardiance. States nausea and vomiting have resolved and he is now eating and drinking well difficulty. Kyler Holloway MD [address], [place], [address], [facility] & [place] 10/17/2024 12:58:46
--- OUTSIDE RECORDS SUMMARY | 2024-12-12 09:22 | XMS_ITS | Encounter Summary ---
Author Organization Healthcare Address [address] [place] [address] Care Team Providers Care Casting Operator Name Role Phone Hilton Maria MD Unavailable Philip Khan MD Primary Care Provider + [phone] Encounter Details Date Type Department Care Team [...] Description 12/14/2024 10:30 AM EDT Office Visit [facility] [address] [place] [address] Beernice Silver MD [address] [place] [phone] 06/16/2025 8:20 AM EST Office Visit [facility] [address] [place] [address] Christine Deng, URBAN PLANNER [address] [place] [address] documented as of this encounter Visit Diagnoses Not on filedocumented in this encounter Additional Health Concerns Assessment Noted Time A fall risk assessment has been complete d for the patient 09/22/2024 11:14 AM EDT A Body Mass Index follow-up plan has been documented for the patient 11/11/2024 11:29 AM EDT documented as of this encounter Care Teams Casting Operator Relationship Specialty Start Date End Date Philip Khan MD [address] [place] [address] PCP - General Internal Medicine 04/01/22 Hilton Maria MD [address] [place] [address] Surgeon Neurosurgery 04/01/22 documented as of this encounter
--- OUTSIDE RECORDS SUMMARY | 2024-12-12 09:22 | XMS_ITS | Encounter Summary ---
Author Organization Healthcare Address [address] [place] [address] Care Team Providers Care Electronics Scale Tester Name Role Phone Hilton Maria MD Unavailable Philip Khan MD Primary Care Provider + [phone] Encounter Details Date Type Department Care Team [...] Description 12/14/2024 10:30 AM EDT Office Visit [facility] [address] [place] [address] Berenice Silver MD [address] [place] [phone] 06/16/2025 8:20 AM EST Office Visit [facility] [address] [place] [phone] Christine Deng, SULFURIC ACID PLANT SUPERVISOR [address] [place] [address] documented as of this encounter Visit Diagnoses Not on filedocumented in this encounter Additional Health Concerns Assessment Noted Time A fall risk assessment has been complete d for the patient 09/22/2024 11:14 AM EDT A Body Mass Index follow-up plan has been documented for the patient 11/18/2024 11:50 AM EDT documented as of this encounter Care Teams Electronics Scale Tester Relationship Specialty Start Date End Date Philip Khan MD [address] [place] [address] PCP - General Internal Medicine 04/01/22 Hilton Maria MD [address] [place] [address] Surgeon Neurosurgery 04/01/22 documented as of this encounter
--- OUTSIDE RECORDS SUMMARY | 2024-12-12 09:22 | XMS_ITS | Encounter Summary ---
Author Organization Healthcare Address [address] [place] [address] Care Team Providers Care Natural Resource Technician Name Role Phone Hilton Maria MD Unavailable Philip Khan MD Primary Care Provider + [phone] Reason for Visit * Reason Onset Date Comments HCN - Patient Message 10/27/2024 Encounter Details Date Type Department Care Team (Late st Contact Info) Description 10/27/2024 Telephone [facility] [address] [place] [address] Berenice Silver MD [address] [address] HCN - Patient Message Social [...] go over ultrasound results Best contact number: [phone] (mobile) Optimal time of day to reach caller: ANYTIME Additional comments/information from caller: None Note: Please do not reply to this message. Follow-up communication and further actions as a result of this message need to be communicated with the patient directly, if the patient is not active onMyChart. If the patient is active on MyChart, they will receive notification of the communication/outcome via Bean[employer]. documented in this encounter Plan of Treatment Upcoming Encounters Date Type Department Care Team (Late st Contact Info) Description 12/14/2024 10:30 AM EDT Office Visit [facility] [address] [place] [address] Breenice Silver MD [address] [phone] 06/16/2025 8:20 AM EST Office Visit [facility] [address] [place] [address] Christine Deng, TANDEM OPERATOR [address] [address] documented as of this encounter Visit Diagnoses Not on filedocumented in this encounter Additional Health Concerns Assessment Noted Time A fall risk assessment has been complete d for the patient 09/22/2024 11:14 AM EDT A Body Mass Index follow-up plan has been documented for the patient 10/04/2024 12:00 PM EDT documented as of this encounter Care Teams Natural Resource Technician Relationship Specialty Start Date End Date Philip Khan MD [address] [place], [place] [address] PCP - General Internal Medicine 04/01/22 Hilton Maria MD [address] [place] [address] Surgeon Neurosurgery 04/01/22 documented as of this encounter
--- OUTSIDE RECORDS SUMMARY | 2024-12-12 09:22 | XMS_ITS | Encounter Summary ---
Author Organization Healthcare Address [address] [place] [address] Care Team Providers Care Travel Coordinator Name Role Phone Hilton Maria MD Unavailable Philip Khan MD Primary Care Provider + [phone] Reason for Referral * Consultation (Routine) - Closed Specialty Diagnoses / Procedures Referred By Contac t Referred To Contact Nephrology Diagnoses Stage 3b chronic kidney disease (CMS/HCC) Kyler Holloway MD [address] [address] Phone: tel: fax: Kirby Colin MD [address] [address] Phone: tel: fax: Referral ID Status Reason Start Date Expiration Date V isits Requested Visits Authorized [id number] Closed Specialty Services Required 02/16/2024 08/17/2025 1 1 Encounter Details Date Type Department Care Team (Late st Contact Info) Description 02/16/2024 [facility] [address] [place] [address] Kyler Holloway MD 105 [facility] [address] [place] [address] Stage 3b chronic kidney disease [...] Office Visit [facility] [address] [place] [phone] Berenice Silver MD [address] [address] 06/16/2025 8:20 AM EST Office Visit [facility] [address] [place] [address] Christine Deng, CRAFT RECRUITER [address] [facility] [address] [place] [phone] Scheduled Referrals Name Type Priority Associated Diagnoses [...] documented as of this encounter Care Teams Travel Coordinator Relationship Specialty Start Date End Date Philip Khan MD [address] [place] [address] PCP - General Internal Medicine 04/01/22 Hilton Maria MD [address] [place] [address] Surgeon Neurosurgery 04/01/22 documented as of this encounter
--- OUTSIDE RECORDS SUMMARY | 2024-12-12 09:22 | XMS_ITS | Continuity of Care Document ---
Author Organization [facility] - [place] Address [address] [facility] [address] [place] [address] Care Team Providers Care Microsoft Access Developer Name Role Phone KYLER HOLLOWAY Primary Care Provider [phone] Assessment No assessment recorded. Plan of Treatment Reminders Order Date Submit Date Provider Last Modified By Organization Details Last Modified Time Details Appointments None recorded. Lab hepatic function panel, serum 2024 025 [email or web address] [facility], [address], [facility] [address], [place], [address], 5 09:46:15 Referral None recorded. Procedures None recorded. Surgeries None recorded. Imaging None recorded. Medication Orders terbinafine HCl 250 mg tablet 2024 025 [facility], [address] [place] [address], [id number], 5 10:34:03 Patient TargetsNo targets recorded. Patient InstructionsNo instructions recorded. Reason for Referral None Reported. Problems Name Problem SNOMED Code Status Onset Date Resolution Date Notes Provider Name and Address Organization Details Recorded Time Chronic obstructive pulmonary disease 23095227 Active 2023 [place] Nunn [facility] & [place] 4 16:22:45 Chronic back pain 325099935 Active 2023 [place] Nunn [facility] & [place] 4 16:22:55 Anxiety 88885283 Active 2023 Nancybarbie Treadwell null, [place] - [facility] - [facility] & [place] 4 16:23:05 Coronary atheroscleros is 606663751 Active 2023 Nancybarbie Treadwell null, [place] [facility] - & [place] 4 16:23:26 Essential hypertension 29339119 Active 2023 Nancybarbie Treadwell null, [place] [facility] - & [place] 4 16:23:37 Neuropathy due to diabetes mellitus 892284638 Active 2023 Nancybarbie Treadwell [place], [place] [facility] - & [place] 4 16:23:50 Hyperlipidemi a 97024560 Active 2023 Nancybarbie Treadwell null, [place] - [facility] - [facility] & [place] 4 16:24:02 Gastroesophag eal reflux disease 523752654 Active 2023 Nancybarbie Treadwell null, [place] [facility] - & [place] 4 16:24:39 Insomnia 847687163 Active 2023 Nancybarbie Treadwell null, [place] - [facility] - & [place] 4 16:24:48 Problem Notes None recorded. Procedures 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 Date Name Laterality Status Provider Name and Address Organization Details Recorded Time 2019 Colonoscopy completed Debra Jaramillo [place] - [facility] - [facility] & [place] 4 13:18:37 2019 esophagogastroduodenoscopy completed Juan Jaramillo [place] - [facility] - [facility] & [place] 4 13:18:55 2018 catheterization of left heart completed Lindsay Ferguson [place] - [facility] - [facility] & [place] 4 13:26:09 2016 destruction of lesion of heart completed Lindsay Ferguson [place] - [facility] - [facility] & [place] 4 13:25:03 2013 procedure on knee completed Lindsay Ferguson [place] - [facility] - [place] & [place] 4 13:19:36 2011 procedure on shoulder completed Lindsay CLAY[place] - [facility] - [place] & [place] 4 13:20:13 2008 Cholecystectomy completed Lindsay CLAYTON - [facility] - [place] & [place] 4 13:19:14 Imaging Results None recorded. Procedure Notes None recorded. Medical Equipment None Reported. Allergies Allergen ID Allergen Name Allergen Category Reaction Reaction Severity Criticality Documentation Date Start Date Code Code System Note Provider Name and Address Organization Details Recorded Time 868246 naproxen medicatio n hives nausea vomiting Not available Not available Not available Not available 07/06/2023 7258 RxNorm criti [facility] Lindsay Darrelrashaun nguyen, [place] - [facility] & [place] 4 09:50:08 314232 tramadol medicatio n hives nausea Not available Not available Not available 07/06/2023 93324 RxNorm brodyti [facility] Lindsay Darrelrashaun nugyen, [place] - [facility] & [place] 4 09:50:10 Medications Name Sig Start Date [...] Not Available Not Available FreeStyle Joselito 3 [place] active Not Available Not Available Not Available Vitals Date Recorded Body height Body mass index (BMI) Body weight Body temperature Oxygen saturation Oxygen saturation in Arterial blood by Pulse oximetry Heart rate Systolic And Diastolic Provider Name and Address Organization Details Last Updated DateTime 5 165.1 cm 35.8 kg/m2 62486.0 3 g 97.7 [degF] 96 % 96 % 78 /min 110/60 mm[Hg] Sera Narayanan [place] [facility] - [place] & [place] 5 09:16:34 Social History Question Answer Notes LastModified by Organizat ion Details LastModified Time Tobacco Smoking Status Former Smoker Sera Weeks null, [place] [facility] [place] & [place] 01/14/2024 14:09:33 Do You Have An Advance Directive? No [email or web address] Information not available 01/14/2024 Are You Blind Or Do You Have Difficulty Seeing? Yes [email or web address] Information not available 01/14/2024 What Is Your Level Of Caffeine Consumption? Moderate [email or web address] Information not available 07/06/2023 What Was The Date Of Your Most Recent Tobacco Screening? 11/24/2023 [email or web address] Information not available 01/14/2024 Are You Passively Exposed To Smoke? No Information not available 01/14/2024 How Much Tobacco Do You Smoke? No [email or web address] Information not available 01/14/2024 How Many Years Have You Smoked Tobacco? 4 [email or web address] Information not available 01/14/2024 Sex: Unknown Functional Status Question Answer Note LastModified by Organizat ion Details LastModified Time Do you use any illicit or recreational drugs? No Information not available 01/14/2024 What is your level of alcohol consumption? Occasional [email or web address] Information not available 07/06/2023 Do you or have you ever used smokeless tobacco? Never used smokeless tobacco [email or web address] Information not available 01/14/2024 What is your exercise level? Occasional [email or web address] Information not available 01/14/2024 Mental Status Question Answer Note LastModified by Organization D etails LastModified Time Do you feel stressed (tense, restless, nervous, or anxious, or unable to sleep at night)? [id number] [email or web address] Information not available 01/14/2024 Family History Relationship Description Onset Age of this Age Resolved Age Notes LastModified by Organization Details LastModified Time Mother Coronary arterioscler osis [email or web address] Not available 12/07 08:51:42 Mother Hypertensive disorder [email or web address] Not available 2023 18:42:21 Mother Myocardial infarction [email or web address] Not available 09/16 18:42:29 Mother Family member [email or web address] Not available 12/07 08:51:42 Mother Heart disease [email or web address] Not available 07/28 08:00:31 Father Diabetes mellitus [email or web address] Not available 12/07 08:51:42 Father Hypertensive disorder [email or web address] Not available 2023 18:42:47 Father Cerebrovascu lar accident [email or web address] Not available 04/2024 18:43:01 Father Family member [email or web address] Not available 12/07 08:51:42 Sister Myocardial infarction [email or web address] Not available 09/16 18:43:06 Sister Malignant neoplastic disease x2 [email or web address] Not available 12/07 08:51:42 Sister Heart disease [email or web address] Not available 07/28 08:00:31 Brother Cerebrovascu lar accident [email or web address] Not available 04/2024 18:43:15 Brother Hypertensive disorder [email or web address] Not available 2023 18:43:19 Brother Diabetes mellitus [email or web address] Not available 12/07 08:51:42 Notes:4 brothers, 6 sisters, 1 son, 3 daughters, Medical History Condition Response Diabetes Y Coronary Artery Disease Y Other Y Obesity Y Vision or Eye Problems Y Arthritis Y Congestive Heart Failure (CHF) Y Cancer Y Back Problems Y Stroke Y COPD Y Osteoporosis/Osteopenia Y Constipation Y Reflux/GERD Y High Cholesterol Y Spine Problems Y Heart Attack ([place]) Y Headaches Y Obstructive Sleep Apnea Y Hypertension Y Kidney Disease Y Immunizations Vaccine Type Date Status Note Provider Nam e and Address Organization Details Recorded Time COVID-19, mRNA, LNP-S, PF, 100 mcg/0.5mL dose or 50 mcg/0.25mL dose 1 completed Nancy nguyen [place] - [facility] - [place] & [place] 07/06/2023 12:46:08 COVID-19, mRNA, LNP-S, PF, 100 mcg/0.5mL dose or 50 mcg/0.25mL dose 1 completed Nancy nguyen [place] - [facility] - [place] & [place] 07/06/2023 12:46:08 Influenza, split virus, trivalent, PF 8 completed Nancy nguyen [place] - [place] & [place] 07/06/2023 12:46:08 Td (adult), 2 Lf tetanus toxoid, preservative free, adsorbed 7 completed Nancy Treadwell [facility], [facility] & [place] 07/06/2023 12:46:08 Past Encounters Encounter ID Performer Location Encounter Start Date Encounter Closed Date Diagnosis/Indication Diagnosis SNOMED-CT Code Diagnosis ICD10 Code Diagnosis Note [id number] Kyler Holloway MD [facility] [address] [facility] [address] [place] [address] 11/11/2024 12:53:19 11/11/2024 13:32:52 Nausea, vomiting and diarrhea 4880765 R11.2 R19.7 resolved. Still on loperamide and ondansetro n p.r.n. keep appointmen t with Dr. Robin later this month. We will request ER records, labs and imaging results from [facility]. [id number] Kyler Holloway MD [facility] [address] [facility] [address] [place] [address] 12/07/2024 08:51:21 12/07/2024 11:43:48 Onychomycosis 785850684 B35.1 Start terbinafin e 250 daily for 1 month. Return to clinic in [facility] [place] 26-27 days to have liver enzymes checked. If within normal limits we will call in script for 2 more months of medicine Health Concerns Section Related Observation LastModified by Organization Detai ls LastModified Time None Recorded Concern Status LastModified by Organization Details LastModified Time None Recorded Payers Encounter Date Sequence Insurance Name Policy Number Policy Dietrich Covered Member ID Dietrich Member ID Guarantor Name 12/07/2024 1 [facility] (MEDICAID REPLACEMENT - HMO) YORDAN Persaud [id number] Seamus Persaud Notes Date Note Type Note Provider Name and Address Organization Details Recorded Time 12/07/2024 text/html patient presents complaining about his feet. States he has thickened toenails, dry scaly feet Kyler Holloway MD [address] [facility], [place], [address], [facility] - [place] & [place] 12/07/2024 20:30:32
--- OUTSIDE RECORDS SUMMARY | 2024-12-12 09:22 | XMS_ITS | Patient Health Record ---
Author Organization [facility] Address [address] [place] [address] [address] [place] [address] Care Team Providers Care Auto Body Repair Teacher Name Role Phone Lyndon Hernandez MD Unavailable [...] times a day; Duration: 28 days Active isosorbide mononitrate 30 mg 1 tab(s) or ally once a day (in the morning); Duration: 30 day(s) 06/04/2022 Active Metoprolol Tartrate 25 mg 1 tab(s) orall y 2 times a day; Duration: 30 day(s) 05/13/2022 Active ProAir HFA 90 mcg/inh 2 puff(s) inhaled every 6 hours 05/13/2022 Active cefdinir 300 mg 1 cap(s) orally ever y 12 hours; Duration: 10 day(s) 05/13/2022 Active clopidogrel 75 mg 1 tab(s) orally once a day; Duration: 30 day(s) 05/13/2022 Active Plavix 75 mg 1 tab(s) orally once a day; Duration: 30 day(s) Active Jardiance 25 mg 1 [...] Active confirmed Problem Cervical spondylosis without myelopathy (236717555) Other spondylosis with radiculopathy, cervical region (M47.22) Active confirmed Problem Lumbosacral spondylosis without myelopathy (disorder) (13456587) Spondylosis without myelopathy or radiculopathy, lumbosacral region (M47.817) Active confirmed Problem Long-term current use of drug therapy (961471629) 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 Medina Depression [address] Medina TIA [address] Medina Neuropathy [address] Medina CHF [address] Medina PR [address] Gonzalez Arthritis [address] Medina Anemia [address] Medina CAD [address] Gonzalez 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 Surgery Date(Month/Year) Gallbladder- [place](OP) 2009 Lt shoulder- Dr. Dickerson/ [place] (OP) 20 12 Rt Knee surgery X2- Dr. Hayes/ [facility] (OP) [address] Olvera/ Patrick Clayton(OP) 01/2017 Cardiac Ablation for SVT at / (OP) 201 7 Colonoscopy [facility]- Dr Reba hernández (OP) 2018 Capsule endoscopy- Dr. Dickinson/ [facility] (O P) 09/2018 EGD/EUS- Dr. Locke/ Patrick Clayton (OP) 07/28 19 [facility] W/out stents/ Patrick Clayton (OP) 07/2018 EGD- Griffin/Jon Jones / OP 06/09 021
--- OUTSIDE RECORDS SUMMARY | 2024-12-12 09:22 | XMS_ITS | Encounter Summary ---
Author Organization Healthcare Address [address] [place] [address] Care Team Providers Care Iron Pourer Name Role Phone Hilton Maria MD Unavailable Philip Khan MD Primary Care Provider + [phone] Encounter Details Date Type Department Care Team [...] Description 12/14/2024 10:30 AM EDT [facility] [address] [place] [phone] Berenice Silevr MD [address] [place] [phone] 06/16/2025 8:20 AM EST Office Visit [facility] [address] [place] [phone] Christine Deng, CLOTH WORKER [address] [address] documented as of this encounter Visit Diagnoses Not on filedocumented in this encounter Additional Health Concerns Assessment Noted Time A fall risk assessment has been complete d for the patient 09/22/2024 11:14 AM EDT A Body Mass Index follow-up plan has been documented for the patient 10/04/2024 12:00 PM EDT documented as of this encounter Care Teams Iron Pourer Relationship Specialty Start Date End Date Philip Khan MD [address] [place] [address] PCP - General Internal Medicine 04/01/22 Hilton Maria MD [address] [place] [address] Surgeon Neurosurgery 04/01/22 documented as of this encounter
--- OUTSIDE RECORDS SUMMARY | 2024-12-12 09:22 | XMS_ITS | Data Portability ---
Author Organization [facility] & RUDOLPH Motley ADMIN Address [address] [place] [address] Care Team Providers Care Button Grader Name Role Phone KYLER HOLLOWAY Primary Care Provider Assessment No assessment recorded. Plan of Treatment Reminders Order Date Submit Date Provider Last Modified By Organization Details Last Modified Time Details Appointments None recorded. Lab hepatic function panel, serum 2024 025 [email or web address] [facility], [address], [address], [place], [address], 5 09:46:15 HbA1c (hemoglobin A1c), blood 2024 025 [email or web address] [facility], [address], [place], [address], 5 20:53:57 microalbumi n/creatinin e, mass ratio, urine 2024 025 DIVINE [facility], [address], [address], [place], [address], 5 03:36:52 Referral None recorded. Procedures None recorded. Surgeries None recorded. Imaging None recorded. Medication Orders terbinafine HCl 250 mg tablet 2024 025 [facility], [address], [place], [place], [id number], 5 10:34:03 Lantus Solostar U-100 Insulin 100 unit/mL (3 mL) subcutaneou s pen 2024 025 [facility], [address] [place] [address], [place] Gerardo, [id number], 5 11:41:54 zolpidem 10 mg tablet 2024 025 [facility], [address] [place] [address], [place] Gerardo, [id number], 5 15:15:36 Restoril 15 mg capsule 2024 025 [facility], [address] [place] [address], [place] Gerardo, [id number], 5 14:51:42 Lantus Solostar U-100 Insulin 100 unit/mL (3 mL) subcutaneou s pen 2024 025 [facility], [address] [place] [address], MATILDE Gerardo, [id number], 5 10:55:17 meloxicam 15 mg tablet 2024 025 [facility], [address] [place] [address], MAT[place] Gerardo, [id number], 5 10:55:19 Patient TargetsNo targets recorded. Patient InstructionsNo instructions recorded. Reason for Referral None Reported. Results Created Date Observation Date Name Description Value Unit Range Abnormal Flag Note LastModifiedBy Organization Detail LastModifiedTime 08/26/1908/26/2024 ALBUM IN/CR EAT RATIO , RANDO M UR creatinine, urine 53.6 mg/dL not estab. normal Not Available [facility] ([facility]) [address] [facility], [place], [address], 08/26/2024 03:36:52 08/26/19 25 08/26/2024 ALBUM IN/CR EAT RATIO , GARTH Mancilla UR albumin, urine 11.1 ug/mL not estab. Not Available [facility] ([facility]) [address] [facility] [facility], [place], [address], 08/26/2024 03:36:52 08/26/19 25 08/26/2024 ALBUM IN/CR EAT RATIO , CHEYO M UR alb/creat ratio 21 mg/g_ creat 0-29 Ayah l: 0 - 29 Moder ately incre ased: 30 - 300 Sever mason incre ased: >300 Not Available [facility] ([facility]) [address] [facility] [facility], [place], [address], 08/26/2024 03:36:52 08/26/19 25 08/25/2024 HbA1c (hemo globi n A1c), blood HbA1c 7.0 Not Available [facility] [address], [place], [address], 08/25/2024 14:39:23 Result Notes None recorded. Problems Name Problem SNOMED Code Status Onset Date Resolution Date Notes Provider Name and Address Organization Details Recorded Time Chronic obstructive pulmonary disease 53455665 Active 2023 Nancy nguyen, [place] - [facility] - [place] & [place] 4 16:22:45 Chronic back pain 235163563 Active 2023 Nancy Treadwell null, [place] [facility] & [place] 4 16:22:55 Anxiety 55733947 Active 2023 Nancy Treadwell null[place] & [place] 4 16:23:05 Coronary atheroscleros is 157542345 Active 2023 [place] n[place] & [place] 4 16:23:26 Essential hypertension 16708813 Active 2023 Nancy nguyen[place] & [place] 4 16:23:37 Neuropathy due to diabetes mellitus 213699402 Active 2023 Nancy nguyen, [place] - [facility] - [place] & [place] 4 16:23:50 Hyperlipidemi a 59726906 Active 2023 Nancy nguyen, [place] - [facility] - [place] & [place] 4 16:24:02 Gastroesophag eal reflux disease 917502580 Active 2023 Nancy nguyen, [place] - [facility] - [place] & [place] 4 16:24:39 Insomnia 073008809 Active 2023 Nancy nguyen, [place] - [facility] - [place] & [place] 4 16:24:48 Problem Notes None recorded. Procedures 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 Date Name Laterality Status Provider Name and Address Organization Details Recorded Time 2019 Colonoscopy completed Debraodalis [place] - [place] - [place] & [place] 4 13:18:37 2019 esophagogastroduodenoscopy completed Juan jacobo Ella [place] - [facility] - [place] & [place] 4 13:18:55 2018 catheterization of left heart completed Lindsay Rothamer [place] - [place] - [place] & [place] 4 13:26:09 2016 destruction of lesion of heart completed Lindsay Rothamer [place] & [place] 4 13:25:03 2013 procedure on knee completed Lindsay [place]amer [place] - [place] & [place] 4 13:19:36 2011 procedure on shoulder completed Lindsay [place]amer [place] & [place] 4 13:20:13 2008 Cholecystectomy completed Lindsay Rothamer [place] - [place] & [place] 4 13:19:14 Imaging Results None recorded. Procedure Notes None recorded. Medical Equipment None Reported. Allergies Allergen ID Allergen Name Allergen Category Reaction Reaction Severity Criticality Documentation Date Start Date Code Code System Note Provider Name and Address Organization Details Recorded Time 688111 naproxen medicatio n hives nausea vomiting Not available Not available Not available Not available 07/06/2023 7258 RxNorm laure nguyen, [place] - [facility] & [place] 4 09:50:08 619467 tramadol medicatio n hives nausea Not available Not available Not available 07/06/2023 50317 RxNorm laure nguyen, [place] - [facility] & [place] 4 09:50:10 Medications Name [...] Not Available Not Available [employer] Joselito [address] [place] active Not Available Not Available Not Available Vitals Date Recorded Body height Body mass index (BMI) Body weight Body temperature Oxygen saturation Oxygen saturation in Arterial blood by Pulse oximetry Heart rate Systolic And Diastolic Provider Name and Address Organization Details Last Updated DateTime 5 165.1 cm 37.6 kg/m2 615247. 88 g 97.7 [degF] 95 % 95 % 82 /min 116/81 mm[Hg] Lora Mcdonald [facility] & [place] 5 10:16:58 Date Recorded Body height Body weight Body temperature Oxygen saturation Oxygen saturation in Arterial blood by Pulse oximetry Heart rate Systolic And Diastolic Provider Name and Address Organization Details Last Updated DateTime 5 165.1 cm 536948. 52 g 98.9 [degF] 96 % 96 % 78 /min 114/78 mm[Hg] Sera Narayanan [facility] & [place] 5 14:37:24 Date Recorded Body height Body mass index (BMI) Body weight Body temperature Oxygen saturation Oxygen saturation in Arterial blood by Pulse oximetry Heart rate Systolic And Diastolic Provider Name and Address Organization Details Last Updated DateTime 5 165.1 cm 35.8 kg/m2 65333.3 7 g 98.2 [degF] 98 % 98 % 110 /min 102/60 mm[Hg] Sera CLAYTON [facility] & [place] 5 11:03:36 Date Recorded Body height Body mass index (BMI) Body weight Body temperature Oxygen saturation Oxygen saturation in Arterial blood by Pulse oximetry Heart rate Systolic And Diastolic Provider Name and Address Organization Details Last Updated DateTime 5 165.1 cm 36.3 kg/m2 90697.1 4 g 97.8 [degF] 99 % 99 % 95 /min 130/82 mm[Hg] Zaira Mendoza MATILDE [facility] & [place] 5 13:07:30 Date Recorded Body height Body mass index (BMI) Body weight Body temperature Oxygen saturation Oxygen saturation in Arterial blood by Pulse oximetry Heart rate Systolic And Diastolic Provider Name and Address Organization Details Last Updated DateTime 5 165.1 cm 35.8 kg/m2 76697.0 3 g 97.7 [degF] 96 % 96 % 78 /min 110/60 mm[Hg] Sera CLAYTON [facility] & [place] 5 09:16:34 Social History Question Answer Notes LastModified by Organizat ion Details LastModified Time Tobacco Smoking Status [facility] [place] 01/14/2024 14:09:33 Do You Have An Advance Directive? No Information not available 01/14/2024 Are You Blind Or Do You Have Difficulty Seeing? Yes [email or web address] Information not available 01/14/2024 What Is Your Level Of Caffeine Consumption? Moderate [email or web address] Information not available 07/06/2023 What Was The Date Of Your Most Recent Tobacco Screening? 11/24/2023 [email or web address] Information not available 01/14/2024 Are You Passively Exposed To Smoke? No Information not available 01/14/2024 How Much Tobacco Do You Smoke? No [email or web address] Information not available 01/14/2024 How Many Years Have You Smoked Tobacco? 4 [email or web address] Information not available 01/14/2024 Sex: Unknown Functional Status Question Answer Note LastModified by Organizat ion Details LastModified Time Do you use any illicit or recreational drugs? No [email or web address] Information not available 01/14/2024 What is your level of alcohol consumption? Occasional [email or web address] Information not available 07/06/2023 Do you or have you ever used smokeless tobacco? Never used smokeless tobacco [email or web address] Information not available 01/14/2024 What is your exercise level? Occasional [email or web address] Information not available 01/14/2024 Mental Status Question Answer Note LastModified by Organization D etails LastModified Time Do you feel stressed (tense, restless, nervous, or anxious, or unable to sleep at night)? [id number] [email or web address] Information not available 01/14/2024 Family History Relationship Description Onset Age of this Age Resolved Age Notes LastModified by Organization Details LastModified Time Mother Coronary arterioscler osis [email or web address] Not available 12/07 08:51:42 Mother Hypertensive disorder [email or web address] Not available 2023 18:42:21 Mother Myocardial infarction [email or web address] Not available 09/16 18:42:29 Mother Family member [email or web address] Not available 12/07 08:51:42 Mother Heart disease [email or web address] Not available 07/28 08:00:31 Father Diabetes mellitus [email or web address] Not available 12/07 08:51:42 Father Hypertensive disorder [email or web address] Not available 2023 18:42:47 Father Cerebrovascu lar accident [email or web address] Not available 04/2024 18:43:01 Father Family member [email or web address] Not available 12/07 08:51:42 Sister Myocardial infarction [email or web address] Not available 09/16 18:43:06 Sister Malignant neoplastic disease x2 [email or web address] Not available 12/07 08:51:42 Sister Heart disease [email or web address] Not available 07/28 08:00:31 Brother Cerebrovascu lar accident [email or web address] Not available 04/2024 18:43:15 Brother Hypertensive disorder [email or web address] Not available 2023 18:43:19 Brother Diabetes mellitus [email or web address] Not available 12/07 08:51:42 Notes:4 brothers, 6 sisters, 1 son, 3 daughters, Medical History Condition Response Coronary Artery Disease Y Other Y COPD Y Osteoporosis/Osteopenia Y Constipation Y Heart Attack (MT) Y Spine Problems Y Obstructive Sleep Apnea Y Diabetes Y Obesity Y Vision or Eye Problems [...] completed Nancy nguyen, [place] - [facility] [place] & [place] 07/06/2023 12:46:08 COVID-19, mRNA, LNP-S, PF, 100 mcg/0.5mL dose or 50 mcg/0.25mL dose 1 completed MATILDE Nunn - [facility] - [place] & [place] 07/06/2023 12:46:08 Influenza, split virus, trivalent, PF 8 completed MATILDE Nunn - [facility] - [place] & [place] 07/06/2023 12:46:08 Td (adult), 2 Lf tetanus toxoid, preservative free, adsorbed 7 completed MATILDE Nunn - [facility] - [place] & [place] 07/06/2023 12:46:08 Past Encounters Encounter ID Performer Location Encounter Start Date Encounter Closed Date Diagnosis/Indication Diagnosis SNOMED-CT Code Diagnosis ICD10 Code Diagnosis Note [id number] Kyler Holloway MD [address] [address] 07/06/2023 12:23:46 07/06/2023 13:32:16 Type 2 diabetes mellitus 54599546 E11.21 On Januvia and Jardiance. Will need to RTC for labs at some point: CBC, CMP, FLP, TSH, Vit D, A1c Diabetic p eripheral neuropathy 286412433 E11.40 on gabapentin Essential hypertension 83545501 I10 on lisinopril Hyperlipidemia 36748985 E78.5 on rosuvastat in Gastroesop hageal reflux disease 760794435 K21.9 on pantoprazo le and famotidine Coronary arteriosclerosis 47728321 I25.[address] Gonzalez in [place]. On Clopidogre l, Isorbide mononitrat e. Anxiety 33971530 F41.9 Has been on quetiapine qhs and clonazepam bid. Have given him Christine Alvarado's contact info Chronic back pain 718288 002 G89.29 on oxycodone per [facility] Chronic ob structive pulmonary disease 29754434 J44.9 On spiriva and Ventolin-S ees Pulmonolog ist in [place]- Dr. Gutierrez [id number] Kyler Holloway MD [facility] [address] [place] [address] 10/05/2023 08:52:45 10/05/2023 09:44:20 Type 2 diabetes mellitus 29392530 E11.21 On Januvia and Jardiance. Will need to RTC for labs tomorrow: CBC, CMP, FLP, TSH, Vit D, A1c Hyperlipidemia 24435145 E78.5 on rosuvastat in. Cont. Check FLP Diabetic p eripheral neuropathy 515205886 E11.40 on gabapentin 800 tid. RF today Essential hypertension 26319576 I10 on lisinopril . Cont Gastroesop hageal reflux disease 942348971 K21.9 on pantoprazo le and famotidine . Cont Coronary arteriosclerosis 65258703 I25.[address] Gonzalez in [place]. On Clopidogre l, Isorbide mononitrat e. Anxiety 32935309 F41.9 On clonazepam bid. D/C'ing Seroquel Has not contacted Christine Dan Chronic back pain 845485 002 G89.29 on oxycodone per [facility] Chronic ob structive pulmonary disease 91250871 J44.9 On spiriva and Ventolin-S ees Pulmonolog ist in [place]- Dr. Gutierrez Insomnia 314065084 G47.0 9 D/C Seroquel and try amitriptyl ine. See back in 1 month [id number] Kyler Holloway MD [facility] [address] [facility] [place] [address] 10/06/2023 09:18:37 10/06/2023 09:42:02 Essential hypertension 64651501 I10 on lisinopril . Cont [id number] Kyler Holloway MD [facility] [address] [facility] [place] [address] 10/27/2023 15:40:29 10/27/2023 16:43:34 Insomnia 741606044 G47.09 increase amitriptyl ine to 50 mg Gastroesop hageal reflux disease 986445624 K21.9 on pantoprazo le and famotidine . Cont Type 2 krystin betes mellitus 56323368 E11.21 A1C from 10/05 was 11.5 %. Already on Januvia and Jardiance. Could not tolerate metformin or Ozempic. Will start on night time insulin but cont Januvia and Jardiance for now. Hyperlipidemia 64201739 E78.5 on rosuvastat in. Diabetic p eripheral neuropathy 777137561 E11.40 on gabapentin 800 tid. Essential hypertension 20676532 I10 On low dose lisinopril and metoprolol Coronary arteriosclerosis 46195330 I25.[address] Gonzalez in [place]. On Clopidogre l, Isorbide mononitrat e. Anxiety 59866209 F41.9 Off clonazepam and Seroquel. Does not want to see Christine Dan due to daughter having had a bad experience . rec [facility] -number given Chronic back pain 019191 002 G89.29 on oxycodone per [facility] Chronic ob structive pulmonary disease 58811018 J44.9 On spiriva and Ventolin-S ees Pulmonolog ist in [place]- Dr. Gutierrez [id number] Kyler Holloway MD [facility] [address] [facility] [place] [address] 11/27/2023 15:48:15 11/27/2023 16:36:39 Type 2 diabetes mellitus 51363941 E11.21 A1c was 11.1%. with a random blood sugar today of 270 I believe we can safely iIncrease Lantus to 22 units at bedtime while continuing Jardiance 25and Januvia 538 [id number] Kyler Holloway MD [facility] [address] [facility] [address] [place] [address] 01/28/2024 09:39:31 01/28/2024 13:15:51 Type 2 diabetes mellitus 10676213 E11.21 A1c was 11.1%. At his last visit. Lantus was increased to 22 units at bedtime while continuing Jardiance 25 and Januvia 100. He has gained 15 lb over the last 2 months according to our scales here. We will need to recheck hemoglobin A1c with other labs today as well as urine albumin creatinine . Hyperlipidemia 95545003 E78.5 On rosuvastat in 40 mg daily. Check lipid panel Insomnia 550532040 G47.0 9 Currently on amitriptyl ine 50 mg . We will continue Essential hypertension 14866771 I10 BP was low today at 95/59 . Currently on low dose lisinopril 5 mg and metoprolol 25 mg. May need to discontinu e 1 or the other. Diabetic p eripheral neuropathy 987820878 E11.40 on gabapentin 800 tid. we will continue [id number] Kyler Holloway MD [facility] [address] [facility] [address] [place] [address] 02/11/2024 15:44:52 02/11/2024 17:23:00 Type 2 diabetes mellitus 37539510 E11.21 the A1c is improved obviously this is still not well controlled despite being on 2 oral agents as well as long-actin g insulin. Would like to see if he can tolerate Mounjaro where he could not tolerate the Ozempic so we will start him on a 2.5 mg IM weekly and follow up in a month Insomnia 410814506 G47.0 9 did not respond to amitriptyl ine. Therefore, would like to try doxepin 10 mg at bedtime increasing to 20 mg in 10 days if not improving Chronic ki dney disease stage 3B 468436638 N18.32 I do not really have a good explanatio n for his acute declining kidney function as his medication s have remained stable. Would like to refer to nephrology . He states there is a nephrologi st in [place] so we will refer him there for further evaluation [id number] Kyler Holloway MD [address] [place] [address] 04/11/2024 10:47:00 04/11/2024 12:03:08 Acute pancreatitis 653812755 K85.90 I was able to review his ER note and labs which showed a lipase of [address] a normal abdominal CT. Check F/U labs. Go ahead and check amylase and lipase today. Hold Mounjaro. Peripheral edema 7845455 00 R60.9 ON 2 diuretics- torsemide and spironolac tone. Needs labs. [id number] Kyler Holloway MD [address] [place] [address] 05/17/2024 10:36:11 05/17/2024 12:11:41 Type 2 diabetes mellitus 86731241 E11.21 A1c from hospital was 11.1%. We [...] will need to refer to endocrinol ogy [id number] Kyler Holloway MD [address] [place] [address] 05/27/2024 13:34:18 05/27/2024 14:39:23 Type 2 diabetes mellitus 91664672 E11.21 A1c from hospital was 11.1%. currently [...] more frequently now Diabetic p eripheral neuropathy 995158524 E11.40 Just refilled gabapentin 800 tid on 05/24. Essential hypertension 43276713 I10 BP was Better today at 114/68. Currently he remains on low dose lisinopril 5 mg and metoprolol 25 mg as well as isosorbide mononitrat e ER 60. [id number] Kyler Holloway MD [facility] [address] [facility] [place] [address] 06/10/2024 11:04:31 06/10/2024 11:59:25 Chest pain 87949206 R07.[address] [facility] [place] Post-disch arge follow-up 858118127 Z09 After patient left I was able to obtain hospital records which indicates he was admitted at [facility] on 05/30 with a complaint of chest pain and discharged on 06/01. He was noted to be hypotensiv e during admission with acute kidney insufficie ncy. He had an EKG as well as echo and blood work as well as chest CT with PE protocol, chest x-ray and lower extremity Dopplers which showed no PE. Ruled out for any MT. EF was 55%. Diabetes was also noted to be uncontroll ed and long-actin g insulin was reinstitut ed along with sliding scale. In addition patient was seen in the ER post discharge on 06/04 with complaint of back pain and was treated with Toradol, methocarba mol and lidocaine patches. Low blood pressure 55465 003 I95.9 Improved. BP is 112/82 Acute kidney injury 1466 9001 N17.9 Improved. Remains on lisinopril and torsemide Chronic low back pain 27 1676227 M54.50 Stable [id number] Kyler Holloway MD [facility] [address] [facility] [place] [address] 07/05/2024 10:01:39 07/05/2024 11:04:52 Type 2 diabetes mellitus 50404233 E11.21 I have asked patient to check his blood sugars 1 hour after he eats in the morning and in the evening and see what kind of numbers he is getting. He is currently on Lantus 35 units at night and Jardiance 25 mg daily. Last A1c from his hospitaliz ation in May was 11.1%. We will plan on following him up in August with repeat A1c at that time Arthritis of left knee 4311990129 664270 M13.862 Try meloxicam Insomnia 116079848 G47.0 9 Has not responded to doxepin, amitriptyl ine, mirtazapin e, trazodone or Seroquil. Will try Restoril [id number] Kyler Holloway MD [facility] [address] [facility] [place] [address] 08/25/2024 14:19:48 08/25/2024 15:06:48 Type 2 diabetes mellitus 94293178 E11.9 A1C today has improved from 11.1 back in May when he was in the hospital to 7.0 % today. We will continue Lantus at 35 units nightly along with Jardiance 25 mg daily and sliding scale regular insulin at mealtime. We were able to get a urine sample today for albumin creatinine ratio Insomnia 094322028 G47.0 9 Has failed multiple meds including trazodone, doxepin, amitriptyl ine, mirtazapin e, Seroquil, and temazepam. Give trial of Ambien as a last resort- Food insecurity 91608639 3 Z59.41 Had JARRETT Sanders speak with pt regarding [employer] [id number] Kyler Holloway MD [facility] [address] [facility] [place] [address] 10/17/2024 10:52:22 10/17/2024 13:54:10 Type 2 diabetes mellitus 42172537 E11.9 A1C in hospital was 6.9% Given [...] remains on Jardiance, lisinopril and torsemide. Nausea 930124101 R11.0 unsure of initial etiology. Appears to be resolved with no significan t sequelae. No need for further workup or medication s at this time. [id number] Kyler Holloway MD [facility] [place] [address] [facility] - [place] [address] 11/11/2024 12:53:19 11/11/2024 13:32:52 Nausea, vomiting and diarrhea 9112992 R11.2 R19.7 resolved. Still on loperamide and ondansetro n p.r.n. keep appointmen t with Dr. Robin later this month. We will request ER records, labs and imaging results from [facility]. [id number] Kyler Holloway MD [facility] [address] [facility] [place] [address] 12/07/2024 08:51:21 12/07/2024 11:43:48 Onychomycosis 022577420 B35.1 Start terbinafin e 250 daily for 1 month. Return to clinic in [facility] [place] 26-27 days to have [...] 1 [employer] [place] Seamus Persaud [id number] Seamus Persaud 09/28/2024 1 [place] [id number] Seamus Persaud [id number] Seamus Persaud 09/28/2024 1 [place] [id number] Seamus Persaud [id number] Seamus Persaud 09/28/2024 [employer] Saemus Persaud 12/06/2024 1 [id number] Seamus Persaud [id number] Seamus Persaud Notes Date Note Type Note Provider Name and Address Organization Details Recorded Time 07/05/2024 text/html 63 yo with diffi cult [...] worked. Kyler Holloway MD [address], [place], [address], [facility] 07/06/2024 20:44:06 08/25/2024 text/html Pt presents for 3 month check. Currently taking lantus 35 units qhs, Jardiance 25 mg qd and SS at mealtime which he has not had to take very much. Does not feel like taking 2 units for a BS just above 150 helps very much. BP is good today. Is interested in a food program called [employer] . also continues to complain of insomnia Kyler Holloway MD [address], [place], [address], [facility] 08/25/2024 22:55:41 10/17/2024 text/html Pt presents for Hospitalization F/U. Was admitted on October 08, and D/C'd 2 days later on ThuOctober 10. F/U appt scheduled October 14 for today-October 17. Initial c/o stomach pain and vomiting. Admitted with N/V, found to be hyperglycemic and with TISHA. Is concerned about election judge low BS readings (69 or even lower). Currently on Lantus 35 units nightly in addition to his mealtime insulin of Humalog and daily Jardiance. States nausea and vomiting have resolved and he is now eating and drinking well difficulty. Kyler Holloway MD [address], [place], [address], [facility] 10/17/2024 12:58:46 11/11/2024 text/html Pt presents for F/U after being seen at [facility] ER on THU, 2 days earlier for vomiting and diarrhea. 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 Has a F/U appt scheduled with GI Dr. Robin in [place] on 11/29/24 at 12 noon. No change in meds other than some loperamide for the diarrhea and ondansetron for the nausea Kyler Holloway MD [address], [place], [address], [facility] [place] 11/11/2024 13:39:02 12/07/2024 text/html patient presents complaining about his feet. States he has thickened toenails, dry scaly feet Kyler Holloway MD [address], [place], [address], [facility] [place] 12/07/2024 20:30:32
--- OUTSIDE RECORDS SUMMARY | 2024-12-12 09:22 | XMS_ITS | Encounter Summary ---
Author Organization [facility] Address [address] [place] [address] Care Team Providers Care Textile Conservator Name Role Phone Hilton Maria MD Unavailable Philip Khan MD Primary Care Provider + [phone] Reason for Referral * Consultation (Routine) - Authorized Specialty Diagnoses / Procedures Referred By Contac t Referred To Contact Endocrinology Diagnoses 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) Deonte Kraft MD [facility] [place] [address] Phone: tel: fax: [facility] Endocrinology [address] [place] [address] Phone: tel: fax: Referral ID Status Reason Start Date Expiration Date Visits Requested Visits Authorized [id number] Authorized Specialty Services Required 4 11/17/2025 1 1 Encounter Details Date Type Department Care Team (Late st Contact Info) Description 05/18/2024 [facility] [address] [place] [address] Deonte Kraft MD [address] [place] [id number] Type II diabetes mellitus with nephropathy [...] Office Visit [facility] [address] [place] [phone] Berenice Silver MD [address] [place] [address] 06/16/2025 8:20 AM EST Office Visit [facility] [address] [place] [address] Christine Deng, ASSISTANT INVENTORY MANAGER [address] [facility] [address] [place] [address] Scheduled Referrals Name Type Priority [...] documented as of this encounter Care Teams Textile Conservator Relationship Specialty Start Date End Date Philip Khan MD [address] [place] [address] PCP - General Internal Medicine 04/01/22 Hilton Maria MD [address] [place] [phone] Surgeon Neurosurgery 04/01/22 documented as of this encounter
--- NOTE | 2024-12-12 09:30 | MR_ITS ---
FINAL REPORT CLINICAL HISTORY: elevated bilirubin/elevation of cyst attn pancreas COMPARISON: CT 11/09/2024 FINDINGS: Multiplanar MR imaging of the abdomen was performed using the MRCP protocol without and with contrast. 3-D images were also obtained and reviewed. Images are degraded by patient respiratory motion. The liver parenchyma is homogeneous. The gallbladder is not identified and known to be surgically absent. The spleen is unremarkable. There is a multi-cystic mass in the head of the pancreas measuring approximately 3.3 x 2.7 cm, well seen on images 17-19 of series 9. This mass is contiguous with the distal common bile duct which is not significantly enlarged. Fluid is seen in the 2nd portion of the duodenum. Pre and post infusion images demonstrate the multi-cystic lesion in the head of the pancreas does not clearly enhance. Incidental note is made of mild ectasia of the abdominal aorta which measures up to 3.0 cm. IMPRESSION: 3.3 x 2.7 cm multilocular cystic lesion head of the pancreas. Differentials considered to include microcystic pancreatic neoplasm or intraductal papillary mucinous neoplasm. Close follow-up would be recommended to assess stability. Recommend follow-up MRI in 6 months. Reviewed, Interpreted and Dictated by Giles Mcfadden MD Transcribed by Lacey Calhoun Authenticated and [facility]
[2024-12-12] MEDS: 0.9 % SODIUM CHLORIDE 50 ML VIAL 20 ML IV (10:34)
[2024-12-12] MEDS: SODIUM CHLORIDE 0.9% 10ML SYR (RAD ONLY) 10 ML IV (10:35)
[2024-12-12] MEDS: GADOTERIDOL INJ 20ML SYRINGE 20 ML IV (10:35)
== END 2024-12-12 23:59 | disposition home or self-care (01) ==
LOC: RAD 09:18
PROVIDERS: PCP Family Medicine; Visit Provider Nurse Practitioner Family
DX: K86.2 Cyst of pancreas (principal); E80.6 Other disorders of bilirubin metabolism; E86.0 Dehydration; K58.1 Irritable bowel syndrome with constipation; R11.2 Nausea with vomiting, unspecified
CPT/HCPCS: 74183; 76376; A9576

== ENCOUNTER 2024-12-23 11:37 | Emergency (ER) | payer OTHER, SELFPAY ==
--- OUTSIDE RECORDS SUMMARY | 2024-11-11 10:50 | XMS_ITS | Encounter Summary ---
Author Organization Healthcare Address [address] [place] [address] Care Team Providers Care Automation Manager Name Role Phone Hilton Maria MD Unavailable Philip Khan MD Primary Care Provider + [phone] Reason for Visit * Reason Comments Follow-up Encounter Details Date Type Department Care Team (Late st Contact Info) Description 11/11/2024 10:50 AM EDT Office Visit [facility] [address] [place] [phone] Berenice Silver MD [address] [address] Numbness and tingling in left [...] with PMHx of DM, CKD, COPD, prior [place]/CVA, C2-C3 cervical stenosis, C5-C6 osteophyte formation and radiculopathy who presents for further evaluation of his bilateral hand numbness/paresthesia. He reports numbness of his left ring and small fingers for a few years and states he underwent leftendoscopic carpal tunnel release (12/21/23) in [place] for this. He states since then, he [...] form which was reviewed and scanned into [employer]. Negative for bleeding disorders, clotting disorders or [...] able to form a composite fist, weakened stave block splitter strength. Two Point Discrimination Thumb Index Long [...] latency to the median nerve fibers electrophysiologically [id number] Median to ulnar crossover with a Jcarlos [...] The patient tolerated injection(s) well. I did personal financial counselor the patient that, after the lidocaine [...] Sleep apnea intolerant to cpap. Stroke (CMS/[facility]) had TIA 2015. Unspecified abdominal pain Stomach pain [2] Past 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: Procedure Laterality Date CHOLECYSTECTOMY N/A Cholecystectomy from [facility] GALLBLADDER SURGERY HAND SURGERY [id number] KNEE SURGERY N/A Knee Surgery from [facility] OTHER SURGICAL HISTORY N/A History of shoulder surgery from [facility] OTHER SURGICAL HISTORY N/A History of cholecystectomy from [facility] OTHER SURGICAL HISTORY N/A History of knee surgery from [facility] SHOULDER SURGERY N/A Shoulder Surgery from [facility] [3] Current Outpatient Medications Medication Sig Dispense [...] same time. ergocalciferol (Vitamin D-2) 1.25 MG (96451 UT) capsule Take 1 capsule (50,000 Units) [...] Care Team (Late st Contact Info) Description 02/09/2025 7:30 AM EDT Hospital Encounter [facility] Operating Room [address] [place] [address] Berenice Silver MD [address] [place] [phone] 02/09/2025 7:30 AM EDT - 02/09/2025 8:45 AM EDT Surgery [facility] Operating Room [address] [place] [address] Berenice Silver MD [address] [place] [phone] left carpal tunnel revision release [37741 (CPT )] 02/22/2025 11:10 AM EDT Office Visit [facility] [address] [place] [phone] Berenice Silver MD [address] [place] [phone] 06/16/2025 8:20 AM EST Office Visit [facility] [address] [place] [address] Christine Deng, MICROWAVE OVEN ASSEMBLER [address] [facility] [address] [place] [address] Scheduled Procedures Name Priority Associated Diagnoses Date/Ti me RELEASE, CARPAL TUNNEL Carpal tunnel syndrome, left 02/09/2025 7:30 AM EDT RELEASE, CARPAL TUNNEL Carpal tunnel syndrome, left documented as of this encounter Visit Diagnoses Diagnosis Numbness and tingling in left hand- Primary Disturbance of skin sensation Carpal tunnel syndrome, left Carpal tunnel syndrome documented in this encounter Administered Medications Inactive [...] documented as of this encounter Care Teams Automation Manager Relationship Specialty Start Date End Date Philip Khan MD [address] [place] [address] PCP - General Internal Medicine 04/01/22 Hilton Maria MD [address] [place] [address] Surgeon Neurosurgery 04/01/22 documented as of this encounter
--- OUTSIDE RECORDS SUMMARY | 2024-11-18 10:20 | XMS_ITS | Encounter Summary ---
Author Organization [facility] Address [address] [place] [address] Care Team Providers Care Fabrication Manager Name Role Phone Hilton Maria MD Unavailable Philip Khan MD Primary Care Provider + [phone] Reason for Visit * Reason Comments Chronic Kidney Disease Pt is a 63 year o ld female that presents to the clinic on this date for a follow up over stage 3 chronic kidney disease. Encounter Details Date Type Department Care Team ([facility] st Contact Info) Description 11/18/2024 10:20 AM EDT Office Visit [facility] [address] [place] [address] Christine Deng, TITLE ASSISTANT [address] [address] Stage 3b chronic kidney disease (CMS/HCC) (Primary Dx); Diabetes mellitus due to underlying condition with diabetic chronic kidney disease, unspecified CKD stage, unspecified whether jail insulin use (CMS/HCC); Essential hypertension; Chronic kidney [...] hesitancy, frequency, and incontinence. 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 Smokes 1-2 packs until 2019. [...] Description 02/09/2025 7:30 AM EDT Hospital Encounter [facility] Operating Room [address] [place] [phone] Berenice Silver MD [address] [place] [phone] 02/09/2025 7:30 AM EDT - 02/09/2025 8:[address] [facility] Operating Room [address] [place] [phone] Berenice Silver MD [address] [place] [phone] left carpal tunnel revision release [20129 (CPT )] 02/22/2025 11:10 AM EDT Office Visit [facility] [address] [place] [phone] Berenice Silver MD [address] [place] [phone] 06/16/2025 8:20 AM EST Office Visit [facility] [address] [place] [address] Christine Deng, TITLE ASSISTANT [address] [address] Scheduled Orders Name Type Priority Associated Diagnoses Orde r Schedule CBC W/O Differential Lab Routine Stage 3b chronic kidney disease ([facility]) Expected: 11/18/2024 (Approximate), Expires: 05/20/2026 Protein, Random, Urine with Creatinine Lab Routine Stage 3b chronic kidney disease ([facility]/HCC) Expected: 11/18/2024 (Approximate), Expires: 05/20/2026 PTH Intact Total Lab Routine Stage 3b chronic kidney disease ([facility]) Expected: 11/18/2024 (Approximate), Expires: 05/20/2026 Renal Function Panel, Plasma Lab Routine Stage 3b chronic kidney disease ([facility]) Expected: 11/18/2024 (Approximate), Expires: 05/20/2026 Urinalysis with reflex microscopic (Culture NOT Included) Lab Routine Stage 3b chronic kidney disease ([facility]) Expected: 11/18/2024 (Approximate), Expires: 05/20/2026 Vitamin D 25 Hydroxy Lab Routine Stage 3b chronic kidney disease ([facility]) Expected: 11/18/2024 (Approximate), Expires: 05/20/2026 Scheduled Procedures Name Priority Associated Diagnoses Date/Ti me RELEASE, CARPAL TUNNEL Carpal tunnel syndrome, left 02/09/2025 7:30 AM EDT RELEASE, CARPAL TUNNEL Carpal tunnel syndrome, left documented as of this encounter Visit Diagnoses Diagnosis Stage 3b chronic kidney disease ([facility])- Primary Diabetes mellitus due to underlying condition with diabetic chronic kidney disease, unspecified CKD stage, unspecified whether jail insulin use ([facility]/HCC) Essential hypertension Unspecified essential hypertension Chronic kidney disease-mineral and bone disorder Carpal tunnel syndrome, left Carpal tunnel syndrome documented in this encounter Additional Health Concerns Assessment Noted Time A fall risk assessment has been complete d for the patient 09/22/2024 11:14 AM EDT A Body Mass Index follow-up plan has been documented for the patient 11/18/2024 11:50 AM EDT documented as of this encounter Care Teams Fabrication Manager Relationship Specialty Start Date End Date Philip Khan MD [address] [place] [address] PCP - General Internal Medicine 04/01/22 Hilton Maria MD [address] [place] [address] Surgeon Neurosurgery 04/01/22 documented as of this encounter
--- OUTSIDE RECORDS SUMMARY | 2024-12-14 10:30 | XMS_ITS | Encounter Summary ---
Author Organization Healthcare Address [address] [place] [address] Care Team Providers Care Payroll Accounting Clerk Name Role Phone Hilton Maria MD Unavailable Philip Khan MD Primary Care Provider + [phone] Reason for Visit * Reason Comments Follow-up Encounter Details Date Type Department Care Team (Late st Contact Info) Description 12/14/2024 10:30 AM EDT Office Visit Terrie Hand [address] [place] [phone] Berenice Silver MD [address] [address] Carpal tunnel syndrome, left (Primary Dx) Social History Tobacco Use Types [...] Sign Reading Time Taken Comments Blood Pressure 109/71 12/14/2024 10:02 AM EDT Pulse 77 12/14/2024 10:02 AM EDT Temperature - - Respiratory Rate - - Oxygen Saturation 97% 12/14/2024 10:02 AM EDT Inhaled Oxygen Concentration - - Weight 97.5 kg (215 lb) 12/14/2024 10:02 AM EDT Height 167.6 cm (5' 6 ) 12/14/2024 10:02 AM EDT Body Mass Index 34.7 12/14/2024 10:02 AM EDT documented in this encounter Miscellaneous Notes * H&P - Dorita Castano MD - 12/14/2024 10:30 AM EDT Hand Surgery Clinic Note CC: bilateral hand numbness/paresthesia HISTORY OF PRESENT ILLNESS: Seamus Persaud is a 63 y.o. male with PMHx of DM, CKD, COPD, prior DC/CVA, C2-C3 cervical stenosis, C5-C6 osteophyte formation and radiculopathy who presents for further evaluation of his bilateral hand numbness/paresthesia. Was last seen in clinic 11/11/24 and received a CSI in the L carpal tunnel. He states the injection provided moderate degree of relief from numbness, paresthesias, and palmar pain for approx 2d, after which all symptoms returned unchanged. He believes his numbness and tingling have worsened and now has difficulty holding his car steering wheel with the L hand while driving. He is interested in pursuing revision L carpal tunnel release. He reports numbness of his left ring and small fingers for a few years and states he underwent leftendoscopic carpal tunnel release (12/21/23) in [place] for this. He states since then, he [...] pain management for possible C5-6 facet injections. Pt states he has had good diabetes control over the past several months with GLP1 injections. This is not a worker's compensation case. PAST MEDICAL HISTORY: Past Medical History[1] PAST SURGICAL HISTORY: 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[2] MEDICATIONS: Current Medications[3] ALLERGIES: Allergies[4] SOCIAL HISTORY: Social History[5] FAMILY HISTORY Family history is as noted on the history intake form which was reviewed and scanned into [employer]. Negative for bleeding disorders, clotting disorders or [...] audible stridor or wheeze CV: extremities well perfused PSYCH: Pleasant and normal affect NEURO: Alert and oriented x 3. Cranial nerves grossly intact, speech intact L UPPER EXTREMITY: able to form a composite fist 3/5 harness installer Two Point Discrimination Thumb Index Long Ring Small Left >15 >15 10 6 6 Hand Provocative Examination Maneuver Left CTS C [...] latency to the median nerve fibers electrophysiologically [id number] Median to ulnar crossover with a Jcarlos [...] right side,looking for evidence of entrapment/compression. IMAGING: US b/l wrists FINDINGS: Right wrist: There is no soft [...] for continued evaluation of bilateral hand numbness. L hand pain, weakness, numbness, paresthesias have continued and worsened despite CSI at last visit. Pt would like to proceed with revision carpal tunnel release with possible nerve wrap. - case request entered - instructed pt he will need to hold GLP1 injections prior to surgery - risks, benefits of operative intervention explained at length; pt had opportunity to answer questions; pt verbalized understanding and satisfaction with the plan [1] Past Medical History: Diagnosis Date Chronic [...] TIA 2016. Unspecified abdominal pain Stomach pain [2] Past 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: Procedure Laterality Date CHOLECYSTECTOMY N/A Cholecystectomy from [facility] GALLBLADDER SURGERY HAND SURGERY [id number] KNEE SURGERY N/A Knee Surgery from [facility] OTHER SURGICAL HISTORY N/A History of shoulder surgery from [facility] OTHER SURGICAL HISTORY N/A History of cholecystectomy from [facility] OTHER SURGICAL HISTORY N/A History of knee surgery from [facility] SHOULDER SURGERY N/A Shoulder Surgery from [facility] [3] Current Outpatient Medications Medication Sig Dispense [...] time each day at the same time. Continuous Glucose Sensor (CaptalisStyle Joselito 3 Sensor) misc USE DIRECTED EVERY 14 DAYS ergocalciferol (Vitamin D-2) 1.25 MG (22278 UT) capsule Take 1 capsule (50,000 Units) [...] tablet (Patient not taking: Reported on 11/11/2024) oxyCODONE-acetaminophen (Percocet) 10-325 MG tablet Take 1 tablet by mouth if needed. pantoprazole (ProtoNix) 20 MG EC tablet (Patient [...] date: 06/08/1988 Quit date: 2019 Years since quittin.5 Passive exposure: Past Smokeless tobacco: Never Vaping Use Vaping status: Never Used Substance Use Topics Alcohol use: Yes Comment: very rarely social. Drug use: Yes Types: Marijuana Comment: once every 2-3 weeks. last used 04/21/22. Cosigned by Berenice Silver MD at 12/15/2024 10:44 AM EDT Associated attestation - Berenice Silver MD - 12/15/2024 10:44 AM EDT I saw and evaluated the patient with the resident/fellow. I discussed the case with the resident/fellow and agree with the findings and plan as documented. Patient presents with persistent symptoms following left endoscopic carpal tunnel release - he reports numbness/tingling of the index, thumb. He underwent diagnostic injection without significant improvement. EMG/NCS demonstrated possible residual or recurrent carpal tunnel on the left - follow up ultrasound of the median nerve at the wrist was normal and not consistent with peripheral nerve compression. He denies neck pain despite osteophytes present in c-spine. We extensively discussed management options. I reiterated to him that there is a strong chance thatsurgery for revision carpal tunnel release will not improve his symptoms given objective available data. He expressed understanding and still would like to proceed. We discussed incision for recurrent carpal tunnel release in addition to nerve wrap. Risks of the procedure were discussed, including but not limited to bleeding, infection, damage to surrounding structures, persistent numbness/tingling/weakness, recurrent symptoms, incomplete release, need or desire for additional procedures, delayed wound healing, risks of anesthesia. Patient has diabetes, last A1c 7. He denies nicotine use. Plan for surgery to be scheduled at least 3 months post corticosteroid injection (February). He expressed understanding and requested to proceed. Berenice Silver MD documented in this encounter Plan of Treatment Upcoming Encounters Date Type Department Care Team (Late st Contact Info) Description 02/09/2025 7:30 AM EDT Hospital Encounter [facility] [place] [address] Berenice Silver MD [address] [place] [phone] 02/09/2025 7:30 AM EDT - 02/09/2025 8:45 AM EDT Surgery [facility] Operating Room [address] [place] [phone] Berenice Silver MD [address] [place] [phone] left carpal tunnel revision release [40347 (CPT )] 02/22/2025 11:10 AM EDT Office Visit [facility] Hand [address] [place] [phone] Berenice Silver MD [address] [place] [phone] 06/16/2025 8:20 AM EST Office Visit [facility] [address] [place] [address] Christine Deng, PRICILA [address] [address] Scheduled Procedures Name Priority Associated Diagnoses Date/Ti me RELEASE, CARPAL TUNNEL Carpal tunnel syndrome, left 02/09/2025 7:30 AM EDT RELEASE, CARPAL TUNNEL Carpal tunnel syndrome, left documented as of this encounter Visit Diagnoses Diagnosis Carpal tunnel syndrome, left- Primary Carpal tunnel syndrome Carpal tunnel syndrome, left Carpal tunnel syndrome documented in this encounter Additional Health Concerns Assessment Noted Time A fall risk assessment has been complete d for the patient 12/14/2024 10:01 AM EDT A Body Mass Index follow-up plan has been documented for the patient 12/15/2024 10:44 AM EDT documented as of this encounter Care Teams Payroll Accounting Clerk Relationship Specialty Start Date End Date Philip Khan MD [address] [place] [address] PCP - General Internal Medicine 04/01/22 Hilton Maria MD [address] [place] [address] Surgeon Neurosurgery 04/01/22 documented as of this encounter
--- OUTSIDE RECORDS SUMMARY | 2024-12-16 05:30 | XMS_ITS ---
Author Organization [facility] Address [address] [place] [address] Care Team Providers Care E Learning Specialist Name Role Phone Nayanyanelisjenise ESTELLEReji Unavailable Adam OSUNA -Lyndon Celestin Unavailable Un available Ted Farrell Unavailable [phone] Allergies Allergen (clinical drug ingredient) Drug/Non Drug Allergy documented on EMR Reaction Allergy Type Onset Date Status naproxen hives Drug Allergy Active tramadol tramadol hives Drug Allergy Active Results Component Value Reference Range Notes Urine Test ANALYZER Reviewed date:12/16/2024 01:08:06 PM Interpretation:ALL NEG Performing Lab: Notes/Report: ALL NEG Heroin Metabolite (6AM) NEG Amphetamine (AMP) NEG Benzodiazepine (ANKUR) NEG Buprenorphine NEG Cocaine (BENNETT) NEG Hydrocodone (HYD) NEG Methadone (MTD) NEG Opiate (OPI) NEG Oxycodone (OXY) NEG REASON FOR VISIT Generalized body pain Medications Medication SIG (Take, Route, Frequency, Duration) Notes Start Date End Date Status ProAir HFA 90 mcg/inh 2 puff(s) inhaled every 6 hours 05/13/2022 Active isosorbide mononitrate 30 mg 1 tab(s) orally once a day (in the morning); Duration: 30 day(s) 06/04/2022 Active OxyCODONE Hydrochloride 10 mg 1 tab(s) orally 3 times a day; Duration: 28 days December 2024 RX, DO NOT FILL SOONER THAN 28 DAYS, (OK TO FILL EARLY, ONLY IF CLOSED) 12/16/2024 Active OxyCODONE Hydrochloride 10 mg 1 tab(s) orally 3 times a day; Duration: 28 days January 2025 RX, DO NOT FILL SOONER THAN 28 DAYS, (OK TO FILL EARLY, ONLY IF CLOSED) 12/16/2024 Active TiZANidine Hydrochloride 4 mg 1 tab(s) orally 3 times a day as needed; Duration: 30 day(s) Active Metoprolol Tartrate 25 mg 1 tab(s) orally 2 times a day; Duration: 30 day(s) 05/13/2022 Active clopidogrel 75 mg 1 tab(s) orally once a day; Duration: 30 day(s) 05/13/2022 Active Jardiance 25 mg 1 tab(s) orally once a day (in the morning) 05/13/2022 Active ranolazine 1000 mg 1 tab(s) orally 2 times a day; Duration: 30 day(s) 06/04/2022 Active Plavix 75 mg 1 tab(s) orally once a day; Duration: 30 day(s) Active Lidocaine, Topical 4% 1 patch applied topically once a day; Duration: 30 days Active baclofen 10 mg 1 tab(s) orally 3 times a day; Duration: 30 days Active famotidine 20 mg 1 tab(s) orally 2 times a day 05/13/2022 Active lisinopril 5 mg 1 tab(s) orally once a day; Duration: 30 day(s) 05/13/2022 Active Vital Signs Blood pressure systolic 117 mm Hg 12/17/19 25 Blood pressure diastolic 68 mm Hg 025 Heart Rate 70 /min 12/16/2024 Height 65 in 12/16/2024 Weight 215 lbs 12/16/2024 BMI 35.77 kg/m2 12/16/2024 Encounters Encounter Location Date Provider Diagnosis [facility] [address] [place] [address] 12/16/2024 Ted Farrell Other long-term (current) drug therapy Z79.899 ; Spondylosis without myelopathy or radiculopathy, lumbosacral region M47.817 and Malignant neoplasm of unspecified part of unspecified bronchus or lung C34.90 Assessments Encounter Date Diagnosis (ICD Code) Assessment Notes Treatment Notes Treatment Clinical Notes Section Notes 12/16/2024 Other long-term (current) drug therapy (ICD-10 - Z79.899) 12/16/2024 1. Refill Oxycodone 10 mg TID 2. F/U 2 months 3. Refill baclofen 10mg TID 4. Refill lidocaine patches daily 5. Screen Expected,Sen t for Definitive bc of last 3 neg definitives, PILL COUNT NEAR FUTURE 6.Etienne #1 LESI L5/S1 December 16, 2024: The patient presents to the [facility] office in [facility] for an audiovisual-telemedicin e visit. The patient was evaluated by the medical corps officer and a urine drug screen was obtained as well as vital signs. Portions of the physical examination were assisted by the medical corps officer during the audiovisual-telemedicin e visit History and previous note: Mr. Covarrubias is a 63-year-old who returns [...] is also managed by Dr. Thomas in [place] for additional medications, including Ambien, gabapentin, and tizanidine. Due to recent UDS findings and behavior, he will require a pill count in the near future. Refills for oxycodone 10mg TID, baclofen 10mg TID, and daily lidocaine patches were sent today. A definitive screen has been ordered given the history of three consecutive negative definitive UDS results. Follow-up is scheduled in two months. December 16, 2024: Mr. Covarrubias is a 63-year-old gentleman that continues to have lower back pain that occasionally goes through the lower extremities bilaterally. Occasionally goes to his feet. EMG done last 2023 showed chronic radiculopathy. The patient also has carpal tunnel syndrome in the right wrist and is scheduled for surgery February 09, 2025. He says that his pain today is 8/10 and the right back and lower extremity feels worse than the left. No other changes or neurologic changes today. I reviewed the [facility] report and the urine drug screen. We talked about interventional pain care and he should benefit from an LESI L5-S1. It was discussed with the patient and he is agreeable and we will schedule that. Will also refill his medications and see him back in 2 months. Otherwise no other changes today.In addition, the patient has had negative urine drug screens with definitive urines the last 3 times. Only once was the patient's negative screen legitimate and that was August 26, 2024. For a pill count to be done in 2 weeks and if that is abnormal we will discontinue opioid therapy. 12/16/2024 Spondylosis without myelopathy or radiculopathy, lumbosacral region (ICD-10 - M47.817) December 16, 2024: The patient presents to the [facility] office in [facility] for an audiovisual-telemedicin e visit. The patient was evaluated by the medical corps officer and a urine drug screen was obtained as well as vital signs. Portions of the physical examination were assisted by the medical corps officer during the audiovisual-telemedicin e visit History and previous note: Mr. Covarrubias is a 63-year-old who returns [...] is also managed by Dr. Thomas in [place] for additional medications, including Ambien, gabapentin, and tizanidine. Due to recent UDS findings and behavior, he will require a pill count in the near future. Refills for oxycodone 10mg TID, baclofen 10mg TID, and daily lidocaine patches were sent today. A definitive screen has been ordered given the history of three consecutive negative definitive UDS results. Follow-up is scheduled in two months. December 16, 2024: Mr. Covarrubias is a 63-year-old gentleman that continues to have lower back pain that occasionally goes through the lower extremities bilaterally. Occasionally goes to his feet. EMG done last 2023 showed chronic radiculopathy. The patient also has carpal tunnel syndrome in the right wrist and is scheduled for surgery February 09, 2025. He says that his pain today is 8/10 and the right back and lower extremity feels worse than the left. No other changes or neurologic changes today. I reviewed the [facility] report and the urine drug screen. We talked about interventional pain care and he should benefit from an LESI L5-S1. It was discussed with the patient and he is agreeable and we will schedule that. Will also refill his medications and see him back in 2 months. Otherwise no other changes today.In addition, the patient has had negative urine drug screens with definitive urines the last 3 times. Only once was the patient's negative screen legitimate and that was August 26, 2024. For a pill count to be done in 2 weeks and if that is abnormal we will discontinue opioid therapy. 12/16/2024 Malignant neoplasm of unspecified part of unspecified bronchus or lung (ICD-10 - C34.90) December 16, 2024: The patient presents to the [facility] office in [facility] for an audiovisual-telemedicin e visit. The patient was evaluated by the medical corps officer and a urine drug screen was obtained as well as vital signs. Portions of the physical examination were assisted by the medical corps officer during the audiovisual-telemedicin e visit History and previous note: Mr. Covarrubias is a 63-year-old who returns [...] is also managed by Dr. Thomas in [place] for additional medications, including Ambien, gabapentin, and tizanidine. Due to recent UDS findings and behavior, he will require a pill count in the near future. Refills for oxycodone 10mg TID, baclofen 10mg TID, and daily lidocaine patches were sent today. A definitive screen has been ordered given the history of three consecutive negative definitive UDS results. Follow-up is scheduled in two months. December 16, 2024: Mr. Covarrubias is a 63-year-old gentleman that continues to have lower back pain that occasionally goes through the lower extremities bilaterally. Occasionally goes to his feet. EMG done last 2023 showed chronic radiculopathy. The patient also has carpal tunnel syndrome in the right wrist and is scheduled for surgery February 09, 2025. He says that his pain today is 8/10 and the right back and lower extremity feels worse than the left. No other changes or neurologic changes today. I reviewed the [facility] report and the urine drug screen. We talked about interventional pain care and he should benefit from an LESI L5-S1. It was discussed with the patient and he is agreeable and we will schedule that. Will also refill his medications and see him back in 2 months. Otherwise no other changes today.In addition, the patient has had negative urine drug screens with definitive urines the last 3 times. Only once was the patient's negative screen legitimate and that was August 26, 2024. For a pill count to be done in 2 weeks and if that is abnormal we will discontinue opioid therapy. Plan Of Treatment Medication Medication Name Sig Start Date Stop Date Notes OxyCODONE Hydrochloride 10 mg 1 tab(s) orally 3 times a day; Duration: 28 days 12/16/2024 RX, DO NOT FILL SOONER THAN 28 DAYS, (OK TO FILL EARLY, ONLY IF CLOSED) OxyCODONE Hydrochloride 10 mg 1 tab(s) orally 3 times a day; Duration: 28 days 12/16/2024 RX, DO NOT FILL SOONER THAN 28 DAYS, (OK TO FILL EARLY, ONLY IF CLOSED) TiZANidine Hydrochloride 4 mg 1 tab(s) orally 3 times a day as needed; Duration: 30 day(s) Lidocaine, Topical 4% 1 patch applied topically once a day; Duration: 30 days baclofen 10 mg 1 tab(s) orally 3 times a day; Duration: 30 days Treatment Notes Assessment Notes 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 Refill Oxycodone 10 mg TID 2. F/U 2 months 3. Refill baclofen 10mg TID 4. Refill lidocaine patches daily 5. Screen Expected,Sent for Definitive bc of last 3 neg definitives, PILL COUNT NEAR FUTURE 6.Scheule #1 LESI L5/S1 Next Appt Details Follow Up: 2 Months, Reason: Provider Name:Reji orozco, 01/03/2025 09:30:00 AM, [address], [address], [address], Provider Name:Reji orozco, 02/07/2025 09:15:00 AM, [address] , [address], [address], Progress Notes * Seamus COVARRUBIAS LDOB: [birth year] (63 yo M)Acc No.[id number]:12/16/2024 Patient: Seamus BROWN Provider: Richy Farrell MD :[id number] A ge:63 Y S ex:Male Date:12/16/2024 Address:[address] [place] [address], [address] [id number] Subjective: * Chief Complaints: * G eneralized body pain * HPI: T ODAYS PAIN EVALUATION: 63 year old male presents with c/o MEDICATION FOLLOW UP: T he patient is currently prescribed Oxycodone 10mg TID, which provides 30% relief of pain symptoms for 3 hour. The last dose was taken 12/16/2024. Denies side effects. CURRENT PAIN SYMPTOMS: L [...] P AIN MANAGEMENT TREATMENT HISTORY: IMAGING HISTORY: 11/02/2019CT ABD/PELVIS:Lt infrahilar infiltrate is noted, Correlate for infection of inflammatory process. Gallbladder is absent. There is a slight prominence of the intrahepatic ducts proximally, common duct does not appeat abnormally dilated. There is a hypodense appearance to the head of the pacreas measuring up to 2.2 cm, recommend pancreatic MRI. Atherioschlerosis with mild infrarenal dilation of the aorta up to 2.9cm. 07/05/2020T CERVICAL:No acute fracture. Degenerative changes 07/31/2020 XR CERVICAL:Overall no change in the [...] evidence of myopathy. . P REVIOUS INJECTION\PROCEDURE HISTORY: 2019 #1 ERIN LMBB L3,L4,L5 80% relief for 2 days 02/21/2020 #2 ERIN LMBB L3,L4,L5 80% relief for 1 day 05/18/2020 RFA RT L3,L4,L5- 20% relief for 1 day . P HYSICAL/AQUA THERAPY/DME/OTHER HISTORY: 2018- Current (02/2022) at [facility], patient reported no relief 2024- No therapies reported as of 10/21/2024 . P ERTINENT SURGICAL EVALUATIONS/SPECIALIST CONSULTS No prior surgical consult . P REVIOUS PAIN CLINIC CARE: Former pt of Dr. Fernandez about 3-4 months ago, Patient quit going because he sugggested a pain pump and he was not interested in that treatment. . S UMMARY OF INITIAL EVALUATION: 12/12/2019New patient consult referred by Dr. Adam [...] to proceed. He had previously relied on Mazeppa 10/325 one by mouth 3 times a day. He denies side effects to this medication. Gavin and UDS were reviewed today. Opioid risk assessment is low. C OMPLIANCE: RISK ASSESSMENT AND STRATIFICATION: RISK GROUP: MODERATE RISK membrane stabilizer benzodiazepine . U RINE DRUG TESTIN02/02/2024 Screen Expected 04/05/2024 Screen Unexpected(-Oxy) Definitive Unexpected (neg) 06/23/2024 Screen Unexpected (neg) Definitive Unexpected (all neg) 08/26/2024 Screen Unexpected (all neg) Definitive Unexpected (all neg, + ambien) 10/21/2024 Screen Expected,Sent for Definitive, 12/16/2024. M ONITORING: Morphine Equivalent (MME): 45 EDEN reviewed today and appropriate . T ESTING/RISK ASSESSMENTS ORT Score/Result:0. * ROS: G ENERAL: Fever D enies. H EENT: Sore throat D enies. C ARDIOVASCULAR: Positive for b lood thinner (Plavix) for: NM. ? G ASTROINTESTINAL: Heartburn H eartburn. M USCULOSKELETAL: Positive for n dakota pain, back pain, Knee pain. ? N EUROLOGICAL: Positive for t ingling, numbness. P SYCHIATRIC: Positive for d epression- mood changes . E NDOCRINE: Positive for A bnormal blood sugars. * Medical History: * 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: G allbladder- [facility](OP) 2009Lt shoulder- Dr. Dickerson/ [facility] (OP) 2011Rt Knee surgery X2- Dr. Hayes/ [facility] (OP) 2013EUS Dr. Olvera/ [facility](OP) 01/2017Cardiac Ablation for SVT at / (OP) 2016Colonoscopy [facility]- Dr Britton [facility] (OP) 2018Capsule endoscopy- Dr. Dickinson/ [facility] (OP) 09/2018EGD/EUS- Dr. Locke/ [facility] (OP) 07/2018[facility] W/out stents/ [facility] (OP) 07/2018EGD- [facility] / OP t had surgery on left wrist at [facility]. (OP) 12/21/2023 * Hospitalization/Major Diagno stic Procedure: H [facility] - Swollen Knee (RT) - OP 04/02/2024heart/kidney [facility] 06/08/2023 * Family History: N on-Contributory. Denies family history of substance abuse. * Social History: S moking: no . P ersonal History Drug Use: No. Alcohol: No. * Medications: T akingLidocaine, Topical 4% film 1 patch applied topically once a day baclofen 10 mg tablet 1 tab(s) orally 3 times a day famotidine 20 mg tablet 1 tab(s) orally 2 times a day lisinopril 5 mg tablet 1 tab(s) orally once a day ranolazine 1000 mg tablet, extended release 1 tab(s) orally 2 times a day Plavix 75 mg tablet 1 tab(s) orally once a day clopidogrel 75 mg tablet 1 tab(s) orally once a day Jardiance 25 mg tablet 1 tab(s) orally once a day (in the morning) Metoprolol Tartrate 25 mg tablet 1 tab(s) orally 2 times a day ProAir HFA 90 mcg/inh aerosol 2 puff(s) inhaled every 6 hours isosorbide mononitrate 30 mg tablet, extended release 1 tab(s) orally once a day (in the morning) OxyCODONE Hydrochloride 10 mg tablet 1 tab(s) orally 3 times a day OxyCODONE Hydrochloride 10 mg tablet 1 tab(s) orally 3 times a day TiZANidine Hydrochloride 4 mg tablet 1 tab(s) orally 3 times a day as needed Taking Lidocaine, Topical 4% film 1 patch applied topically once a day Taking baclofen 10 mg tablet 1 tab(s) orally 3 times a day Taking famotidine 20 mg tablet 1 tab(s) orally 2 times a day Taking lisinopril 5 mg tablet 1 tab(s) orally once a day Taking ranolazine 1000 mg tablet, extended release 1 tab(s) orally 2 times a day Taking Plavix 75 mg tablet 1 tab(s) orally once a day Taking clopidogrel 75 mg tablet 1 tab(s) orally once a day Taking Jardiance 25 mg tablet 1 tab(s) orally once a day (in the morning) Taking Metoprolol Tartrate 25 mg tablet 1 tab(s) orally 2 times a day Taking ProAir HFA 90 mcg/inh aerosol 2 puff(s) inhaled every 6 hours Taking isosorbide mononitrate 30 mg tablet, extended release 1 tab(s) orally once a day (in the morning) Taking OxyCODONE Hydrochloride 10 mg tablet 1 tab(s) orally 3 times a day Taking OxyCODONE Hydrochloride 10 mg tablet 1 tab(s) orally 3 times a day Taking TiZANidine Hydrochloride 4 mg tablet 1 tab(s) orally 3 times a day as needed * Allergies: n aproxen: hives - Allergytramadol: hives - Allergyno[Allergies Verified] Objective: * Vitals: B P: 117/68, HR: 70, Pain VAS (0-10): 8, Ht: 65, Wt: 215, BMI:35.77Index. * Examination: G eneral Examination: Nurse/Steel Plate Caulker: Jayda costello(ChanduZaira 12/16/2024 09:25:28 AM EDT >. General Appearance: w ell-nourished individual in no [...] ERIN. Assessment: * Assessment: 1. O ther long-term (current) drug therapy - Z79.899 (Primary) 2 . S pondylosis without myelopathy or radiculopathy, lumbosacral region - M47.817 3 . M alignant neoplasm of unspecified part of unspecified bronchus or lung - C34.90 December 16, 2024: The patient p resents to the [facility] office in [facility] for an audiovisual-telemedicine visit. The patient was evaluated by the medical corps officer and a urine drug screen was obtained as well as vital signs. Portions of the physical examination were assisted by the medical corps officer during the audiovisual-telemedicine visit History and previous note: Mr. Covarrubias is a 63-year-old who returns [...] is also managed by Dr. Thomas in [place] for additional medications, including Ambien, gabapentin, and tizanidine. Due to recent UDS findings and behavior, he will require a pill count in the near future. Refills for oxycodone 10mg TID, baclofen 10mg TID, and daily lidocaine patches were sent today. A definitive screen has been ordered given the history of three consecutive negative definitive UDS results. Follow-up is scheduled in two months. December 16, 2024: Mr. Covarrubias is a 63-year-old gentleman that continues to have lower back pain that occasionally goes through the lower extremities bilaterally. Occasionally goes to his feet. EMG done last 2023 showed chronic radiculopathy. The patient also has carpal tunnel syndrome in the right wrist and is scheduled for surgery February 09, 2025. He says that his pain today is 8/10 and the right back and lower extremity feels worse than the left. No other changes or neurologic changes today. I reviewed the [facility] report and the urine drug screen. We talked about interventional pain care and he should benefit from an LESI L5-S1. It was discussed with the patient and he is agreeable and we will schedule that. Will also refill his medications and see him back in 2 months. Otherwise no other changes today.In addition, the patient has had negative urine drug screens with definitive urines the last 3 times. Only once was the patient's negative screen legitimate and that was August 26, 2024. For a pill count to be done in 2 weeks and if that is abnormal we will discontinue opioid therapy. Plan: * Treatment: Value Reference Range H eroin Metabolite (6AM) NEG * A mphetamine (AMP) NEG * B enzodiazepine (ANKUR) NEG * B uprenorphine NEG * C ocaine (BENNETT) NEG * H ydrocodone (HYD) NEG * M ethadone (MTD) NEG * O piate (OPI) NEG * O xycodone (OXY) NEG * Karla Saldivar 12/16/2024 09:49: 16 AM EDT >Ted Farrell 12/16/2024 09:52:48 AM EDT > (Confirm All) Send specimen for definitive testing on Amphetamines, Anticonvulsants, Antitussive, Barbiturates,Bath Salts, Benzodiazepines, Buprenorphine, Fentanyl,CONSTANTINE Analogue, Heroin, Illicits, Methadone, Methylphenidate, Muscle Relaxants, Nicotine, Opiates, Opioid Antagonist, Other Anxiolytic,Recreational Compounds, Sleep Aids, SSRI/SNRI,Synthetic Cannabinoids,Tricyclics drug classes Notes: 12/16/2024 1. Refill Oxycodone 10 mg TID 2.F/U 2 months 3. Refill baclofen 10mg TID 4. Refill lidocaine patches daily 5. Screen Expected,Sent for Definitive bc of last 3 neg definitives,PILL COUNT NEAR FUTURE 6.Scheule #1 LESI L5/S1 ?? * Procedure Codes: * Follow Up: 2 Months * * Sign off status: Completed true * Provider: Richy Farrell MD Date: 12/16/2024 Generated for Dimitriosi xander/Erick/eTransmitting on: 12/23/2024 11:00 AM CDT History and Physical Notes * [...] to proceed. He had previously relied on Mazeppa 10/325 one by mouth 3 times a [...] THERAPY/DME/OT HER HISTORY: 2018- Current (02/2022) at [facility], patient reported no relief 2024- No therapies [...] MODERATE RISK membrane stabilizer benzodiazepine URINE DRUG TESTIN02/02/2024 Screen Ex pected 04/05/2024 Screen Unexpected(- Oxy) Definitive Unexpected (neg) 06/23/2024 Screen Unexpected (neg) Definitive Unexpected (all neg) 08/26/2024 Screen Unexpected (all neg) Definitive Unexpected (all neg, + ambien) 10/21/2024 Screen Expected,Sent for Definitive, 12/16/2024 MONITORING: Morphine Equivalent (MME): 45 EDEN reviewed today and appropriate TESTING/RISK ASSESSMENTS ORT Score/Result:0 TODAYS PAIN EVALUATION MEDICATION FOLLOW UP: The patient is currently prescribed Oxycodone 10mg TID, which provides 30% relief of pain symptoms for 3 hour. The last dose was taken 12/16/2024. Denies side effects CURRENT PAIN SYMPTOMS: Location of Worst Pain:: Low Back, Knee(s), Shoulder(s), Hand knee (RT), hand (LT) Pain Frequency:: constant, always Pain Description:: aching, b urning, sharp, stabbing, numb, tingling Average Pain Score VAS:: 8 Pain Exacerbation:: walking, sitting, li fting Pain Alleviation:: Laying down ADL/Quality of Life Interference:: work Examination Category Sub-Category Detail Notes Category Not es General Examination HEENT: unremarkable Neck, Thyroid : supple Heart: regular rate Extremities: no clubbing, no kassy a General Appearance: well-nourished indiv idual in no acute distress. The patient is alert and oriented and cooperative for evaluation Skin normal, no rash Neurologic Exam: Patient ambulates wi th an antalgic gait, pitched forward Nurse/Steel Plate Caulker: Ann Marie-Lashawn Lanza 12/16/2024 09:25:28 AM EDT > Lumbar Spine/Lower Back Straight leg raising [...]
[2024-12-23 11:43] VITALS: BP 107/65
[2024-12-23 11:46] VITALS: BP 107/65; PULSE 77; RESP 16; TEMP 37.4; O2SAT 93; BMI 41.5
[2024-12-23 12:00] VITALS: BP 110/68; PULSE 72; RESP 14; O2SAT 93
--- OUTSIDE RECORDS SUMMARY | 2024-12-23 12:00 | XMS_ITS | Patient Health Record ---
Author Organization [facility] Address [address] [place] [address] Care Team Providers Care Clay Maker Name Role Phone Reji Jordan II Unavailable [phone] Adam OSUNA -Lyndon Celestin Unavailable Un available Ted Farrell Unavailable [phone] Allergies Allergen (clinical drug ingredient) Drug/Non Drug [...] (OPI) NEG Oxycodone (OXY) POS Urine Test LCMS Definitive Reviewed date:09/20/2024 06:38:46 [...] NEG Opiate (OPI) NEG Oxycodone (OXY) NEG Reason For Referral No Information Medications Medication SIG (Take, Route, Frequency, Duration) Notes Start Date End Date Status Metoprolol Tartrate 25 mg 1 tab(s) orally 2 times a day; Duration: 30 day(s) 05/13/2022 Active ProAir HFA 90 mcg/inh 2 puff(s) inhaled every 6 hours 05/13/2022 Active clopidogrel 75 mg 1 tab(s) orally once a day; Duration: 30 day(s) 05/13/2022 Active Jardiance 25 mg 1 tab(s) orally once a day (in the morning) 05/13/2022 Active isosorbide mononitrate 30 mg 1 tab(s) orally once a day (in the morning); Duration: 30 day(s) 06/04/2022 Active OxyCODONE Hydrochloride 10 mg 1 tab(s) orally 3 times a day; Duration: days December 2024 RX, DO NOT FILL [...] day as needed; Duration: 30 day(s) Active Lidocaine, Topical 4% 1 patch applied topically once a day; Duration: 30 days Active ranolazine 1000 mg 1 tab(s) orally 2 times a day; Duration: 30 day(s) 06/04/2022 Active baclofen 10 mg 1 tab(s) orally 3 times a day; Duration: 30 days Active Plavix 75 mg 1 tab(s) orally once a day; Duration: 30 day(s) Active famotidine 20 mg 1 tab(s) orally 2 times a day 05/13/2022 Active lisinopril 5 mg 1 tab(s) orally once a day; Duration: 30 day(s) 05/13/2022 Active Problems Problem Type SNOMED Code ICD Code Onset Dates Problem Status W/U Status Risk Notes Problem Malignant tumor of lung (834194222) Malignant neoplasm of unspecified part of unspecified bronchus or lung (C34.90) Active confirmed Problem Cervical spondylosis without myelopathy (193890333) Other spondylosis with radiculopathy, cervical region (M47.22) Active confirmed Problem Lumbosacral spondylosis without myelopathy (disorder) (81341225) Spondylosis without myelopathy or radiculopathy, lumbosacral region (M47.817) Active confirmed Problem Long-term current use of drug therapy (451618815) 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) Active confirmed Vital Signs Heart Rate 70 /min 12/16/2024 Blood pressure diastolic 68 mm Hg 12/16/2024 Height 65 in 12/16/2024 Blood pressure systolic 117 mm Hg 12/16/2024 Weight 215 lbs 12/16/2024 BMI 35.77 kg/m2 12/16/2024 Encounters Encounter Location Date Provider Diagnosis [facility] [address] [place] [address] 02/02/2024 Reji Jordan 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 Z79.899 ; Spondylosis without myelopathy or radiculopathy, lumbosacral region M47.817 and Malignant neoplasm of unspecified part of unspecified bronchus or lung C34.90 [facility] [address] [place] [address] 04/05/2024 Reji Jordan Other long-term (current) drug therapy Z79.899 ; Spondylosis without myelopathy or radiculopathy, lumbosacral region M47.817 and Malignant neoplasm of unspecified part of unspecified bronchus or lung C34.90 [facility] [address] [facility] [address] [place] [address] 06/23/2024 Reji Jordan Other long-term (current) drug therapy Z79.899 ; Spondylosis without myelopathy or radiculopathy, lumbosacral region M47.817 and Malignant neoplasm of unspecified part of unspecified bronchus or lung C34.90 [facility] [address] [facility] [address] [place] [address] 08/26/2024 Reji Jordan Other long-term (current) drug therapy Z79.899 ; Spondylosis without myelopathy or radiculopathy, lumbosacral region M47.817 and Malignant neoplasm of unspecified part of unspecified bronchus or lung C34.90 [facility] [address] [address] 10/21/2024 Reji Jordan 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 Z79.899 ; Spondylosis without myelopathy or radiculopathy, lumbosacral region M47.817 and Malignant neoplasm of unspecified part of unspecified bronchus or lung C34.90 [facility] [address] [place] [address] 12/16/2024 Ted Farrell Other long-term (current) drug therapy Z79.899 ; Spondylosis without myelopathy or radiculopathy, lumbosacral region M47.817 and Malignant neoplasm of unspecified part of unspecified bronchus or lung C34.90 [facility] [address] [place] [address] 10/25/2024 [facility] [address] [place] [address] 12/16/2024 Reji Jordan [facility] [address] [place] [address] 02/02/2024 Reji Jordan Other long-term (current) drug therapy Z79.899 [facility] [address] [place] [address] 04/05/2024 Reji Jordan Other long-term (current) drug therapy Z79.899 [facility] [address] [place] [address] 04/06/2024 Reji Jordan [facility] [address] [place] [address] 05/31/2024 Reji Jordan 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 Z79.899 [facility] [address] [place] [address] 06/23/2024 Reji Jordan Other long-term (current) drug therapy Z79.899 [facility] [address] [place] [address] 06/23/2024 Reji Jordan [facility] [address] [place] [address] 08/26/2024 Reji Jordan 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 04/05/2024 Other long-term (current) drug therapy (ICD-10 - Z79.899) 04/05/2024 [...] and F/U in 2 months. 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 06/23/2024 Spondylosis without myelopathy or radiculopathy, lumbosacral [...] and F/U in 2 months. 06/23/2024 Other long-term (current) drug therapy (ICD-10 - Z79.899) 06/23/2024 [...] and F/U in 2 months. 06/23/2024 Other long-term (current) drug therapy (ICD-10 - Z79.899) 08/26/2024 [...] denies any side effect of the medicine. [place] and UDS were reviewed. 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 Thomas in [place] for additional medications, including Ambien, gabapentin, and [...] is scheduled in two months. 10/21/2024 Other long-term (current) drug therapy (ICD-10 - Z79.899) 12/16/2024 Other long-term (current) drug therapy (ICD-10 - Z79.899) 12/16/2024 1. Refill Oxycodone 10 mg TID 2. F/U 2 months 3. Refill baclofen 10mg TID 4. Refill lidocaine patches daily 5. Screen Expected,Sen t for Definitive bc of last 3 neg definitives, PILL COUNT NEAR FUTURE 6.Schehenrietta #1 LESI L5/S1 December 16, 2024: The patient presents to the [facility] office in [facility] for an audiovisual-telemedicin e visit. The patient was evaluated by the medical imaging technician and a urine drug screen was obtained as well as vital signs. Portions of the physical examination were assisted by the medical imaging technician during the audiovisual-telemedicin e visit History and previous note: Mr. Persaud is a 63-year-old who returns [...] is also managed by Dr. Thomas in [place] for additional medications, including Ambien, gabapentin, and [...] in two months. December 16, 2024: Mr. Persaud is a 63-year-old gentleman that continues to [...] or neurologic changes today. I reviewed the [place] report and the urine drug screen. We [...] 16, 2024: The patient presents to the [facility] office in [facility] for an audiovisual-telemedicin e visit. The patient was evaluated by the medical imaging technician and a urine drug screen was obtained as well as vital signs. Portions of the physical examination were assisted by the medical imaging technician during the audiovisual-telemedicin e visit History and previous note: Mr. Persaud is a 63-year-old who returns [...] is also managed by Dr. Thomas in [place] for additional medications, including Ambien, gabapentin, and [...] in two months. December 16, 2024: Mr. Persaud is a 63-year-old gentleman that continues to [...] or neurologic changes today. I reviewed the [place] report and the urine drug screen. We [...] is abnormal we will discontinue opioid therapy. 10/21/2024 Spondylosis without myelopathy or radiculopathy, lumbosacral [...] is also managed by Dr. Thomas in [place] for additional medications, including Ambien, gabapentin, and [...] is also managed by Dr. Thomas in [place] for additional medications, including Ambien, gabapentin, and tizanidine. Due to recent UDS findings and behavior, he will require a pill count in the near future. Refills for oxycodone 10mg TID, baclofen 10mg TID, and daily lidocaine patches were sent today. A definitive screen has been ordered given the history of three consecutive negative definitive UDS results. Follow-up is scheduled in two months. 12/16/2024 Malignant neoplasm of unspecified part of unspecified bronchus or lung (ICD-10 - C34.90) December 16, 2024: The patient presents to the [facility] office in [facility] for an audiovisual-telemedicin e visit. The patient was evaluated by the medical imaging technician and a urine drug screen was obtained as well as vital signs. Portions of the physical examination were assisted by the medical imaging technician during the audiovisual-telemedicin e visit History and previous note: Mr. Persaud is a 63-year-old who returns [...] is also managed by Dr. Thomas in [place] for additional medications, including Ambien, gabapentin, and [...] in two months. December 16, 2024: Mr. Persaud is a 63-year-old gentleman that continues to [...] or neurologic changes today. I reviewed the [place] report and the urine drug screen. We [...] is abnormal we will discontinue opioid therapy. 05/31/2024 04/05/2024 Seamus presents for follow up. [...] Order Date Urine Test LCMS Definitive 10/21/2024 Urine Test LCMS Definitive 12/16/2024 Next Appt Details Provider Name:Reji orozco, 01/03/2025 09:30:00 AM, [address], [address], [place], [address], Provider Name:Reji orozco, 02/07/2025 09:15:00 AM, [address], [address], [place], [address], Insurance Providers Payer Name Payer Address Payer Phone Subscriber Number Group Number Insured Name Patient Relationship to Insured Coverage Start Date Coverage End Date [employer] [address] [place] [address] [id number] YORDAN Seamus Persaud Self - patient is the [...] Depression [address] Medina TIA [address] Medina Neuropathy [address] Medina CHF [address] Medina SC [address] Gonzalez Arthritis [address] Medina Anemia [address] Medina CAD [address] Gonzalez 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 Surgery Date(Month/Year) pt had surgery on left wrist at [facility]. (OP) 12/21/2023 EGD- [facility] / OP 06/09 021 LHC W/out stents/ [facility] (OP) 07/2018 EGD/EUS- Dr. Locke/ [facility] (OP) 07/28 19 Capsule endoscopy- Dr. Dickinson/ [facility] (O P) 09/2018 Colonoscopy [facility]- Dr Reba hernández (OP) 2018 Cardiac Ablation for SVT at / (OP) [address] Olvera/ [facility](OP) 01/2017 Rt Knee surgery X2- Dr. Hayes/ [facility] (OP) 2013 Lt shoulder- Dr. Dcikerson/ [facility] (OP) 20 12 Gallbladder- [facility](OP) 2008 Hospitalization History Reason Date(Month/Year) heart/kidney [facility] 06/08/2023 [facility] - Swollen Knee (RT) - OP 04/02/2024
--- OUTSIDE RECORDS SUMMARY | 2024-12-23 12:00 | XMS_ITS | Continuity of Care Document ---
Author Organization [facility] Address [address] [place] [address] Care Team Providers Care Plans Examiner Name Role Phone KYLER HOLLOWAY Primary Care Provider Assessment No assessment recorded. Plan of Treatment Reminders Order Date Submit Date Provider Last Modified By Organization Details Last Modified Time Details Appointments None record ed. Lab None record ed. Referral None record ed. Procedures None record ed. Surgeries None record ed. Imaging None record ed. Medication Orders None record ed. Patient TargetsNo targets recorded. Patient InstructionsNo instructions recorded. Reason for Referral None Reported. Results Created Date Observation Date Name Description Value Unit Range Abnormal Flag Note LastModifiedBy Organization Detail LastModifiedTime 12/13/1912/12/2024 imagi ng/di agnos tic resul t No observ ation record ed. [facility] [address], [place], [address], 12/12/2024 15:38:09 Result Notes None recorded. Problems Name Problem SNOMED Code Status Onset Date Resolution Date Notes Provider Name and Address Organization Details Recorded Time Chronic obstructive pulmonary disease 64261162 Active 2023 MATILDE Nunn [facility] & [place] 4 16:22:45 Chronic back pain 589900176 Active 2023 MATILDE Nunn [facility] & [place] 4 16:22:55 Anxiety 25691471 Active 2023 MATILDE Nunn - [facility] - [facility] & [place] 4 16:23:05 Coronary atheroscleros is 352999477 Active 2023 Nancybarbie Treadwell null, [place] - [facility] - [facility] & [place] 4 16:23:26 Essential hypertension 53028209 Active 2023 Nancybarbie Treadwell null, [place] - [facility] - [facility] & [place] 4 16:23:37 Neuropathy due to diabetes mellitus 371491960 Active 2023 Nancybarbie Treadwell null, [place] - [facility] - [facility] & [place] 4 16:23:50 Hyperlipidemi a 89031881 Active 2023 Nancybarbie Treadwell null, [place] - [facility] - [facility] & [place] 4 16:24:02 Gastroesophag eal reflux disease 098728548 Active 2023 Nancy Manriquezson null, [place] - [facility] - [facility] & [place] 4 16:24:39 Insomnia 030879028 Active 2023 Nancybarbie Treadwell null, [place] - [facility] - [facility] & [place] 4 16:24:48 Problem Notes None recorded. Procedures 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 Date Name Laterality Status Provider Name and Address Organization Details Recorded Time 2019 Colonoscopy completed Debra Jaramillo [place] - [facility] - [place] & [place] 4 13:18:37 2019 esophagogastroduodenoscopy completed Juan CLAYTON - [facility] - [place] & [place] 4 13:18:55 2018 catheterization of left heart completed Lindsay Rojoamer [place] - [facility] - [place] & [place] 4 13:26:09 2016 destruction of lesion of heart completed Lindsay Rothamer [place] - [facility] - [place] & [place] 4 13:25:03 2013 procedure on knee completed Lindsay Rojoamer [place] - [facility] - [place] & [place] 4 13:19:36 2011 procedure on shoulder completed Lindsay Rothamer [place] - [facility] - [place] & [place] 4 13:20:13 2008 Cholecystectomy completed Lindsay Roberson [facility] - [place] & [place] 4 13:19:14 Imaging Results None recorded. Procedure Notes None recorded. Medical Equipment None Reported. Allergies Allergen ID Allergen Name Allergen Category Reaction Reaction Severity Criticality Documentation Date Start Date Code Code System Note Provider Name and Address Organization Details Recorded Time 778403 naproxen medicatio n hives nausea vomiting Not available Not available Not available Not available 07/06/2023 7258 RxNorm criti calit compa nguyen, [place] - [facility] & [place] 4 09:50:08 908008 tramadol medicatio n hives nausea Not available Not available Not available 07/06/2023 55295 RxNorm criti cal katina galvan Lindsay nguyen, [place] Roberson [facility] & [place] 4 09:50:10 Medications Name Sig Start Date [...] t Available terbinafine HCl 250 mg tablet TAKE 1 TABLET BY MOUTH ONCE A DAY FOR TOENAIL FUNGUS active Not Available Not Available No t [...] Not Available gabapentin 800 mg tablet TAKE 1 TABLET BY MOUTH 3 TIMES A DAY FOR periphera l neuropath y active Not Available Not Available No t Available baclofen 10 mg tablet TAKE 1 TABLET [...] TABLET BY MOUTH AT BEDTIME FOR SLEEP 2024 active Not Available Not Available Not Avai lable albuterol sulfate HFA 90 mcg/actuati on aerosol [...] Sensor device USE DIRECTED EVERY 14 DAYS 2024 active Not Available Not Available Not Avai lable Ozempic 0.25 mg or 0.5 mg (2 mg/3 mL) subcutaneou s pen injector 07/06 completed Not Available Not Available Not Available Clenpiq 10 mg-3.5 gram-12 gram/175 mL oral solution take as directed 11/23 completed Not Available Not Available Not Available FreeStyle Joselito [address] [place] active Not Available Not Available Not Available Vitals Date Recorded Body height Body mass index (BMI) Body weight Body temperature Oxygen saturation Oxygen saturation in Arterial blood by Pulse oximetry Heart rate Systolic And Diastolic Provider Name and Address Organization Details Last Updated DateTime 5 165.1 cm 36.3 kg/m2 10440.1 4 g 97.8 [degF] 99 % 99 % 95 /min 130/82 mm[Hg] Zaira GALDAMEZ [facility] & [place] 13:07:30 Social History Question Answer Notes LastModified by Organizat ion Details LastModified Time Tobacco Smoking Status Former Smoker MATILDE Denson [facility] & [place] 01/14/2024 14:09:33 Do You Have An Advance Directive? No [email or web address] Information not available 01/14/2024 Are You Blind Or Do You Have Difficulty Seeing? Yes [email or web address] Information not available 01/14/2024 What Is Your Level Of Caffeine Consumption? Moderate [email or web address] Information not available 07/06/2023 What Was The Date Of Your Most Recent Tobacco Screening? 11/24/2023 Information not available 01/14/2024 Are You Passively Exposed To Smoke? No [email or web address] Information not available 01/14/2024 How Much Tobacco Do You Smoke? No [email or web address] Information not available 01/14/2024 How Many Years Have You Smoked Tobacco? 4 [email or web address] Information not available 01/14/2024 Sex: Unknown Functional Status Question Answer Note LastModified by Organizat ion Details LastModified Time Do you use any illicit or recreational drugs? No [email or web address] Information not available 01/14/2024 What is your level of alcohol consumption? Occasional [email or web address] Information not available 07/06/2023 Do you or have you ever used smokeless tobacco? Never used smokeless tobacco [email or web address] Information not available 01/14/2024 What is your exercise level? Occasional [email or web address] Information not available 01/14/2024 Mental Status Question Answer Note LastModified by Organization D etails LastModified Time Do you feel stressed (tense, restless, nervous, or anxious, or unable to sleep at night)? [id number] [email or web address] Information not available 01/14/2024 Family History Relationship Description Onset Age of this Age Resolved Age Notes LastModified by Organization Details LastModified Time Mother Coronary arterioscler osis [email or web address] Not available 12/07 08:51:42 Mother Hypertensive disorder [email or web address] Not available 2023 18:42:21 Mother Myocardial infarction [email or web address] Not available 09/16 18:42:29 Mother Family member [email or web address] Not available 12/07 08:51:42 Mother Heart disease [email or web address] Not available 07/28 08:00:31 Father Diabetes mellitus [email or web address] Not available 12/07 08:51:42 Father Hypertensive disorder [email or web address] Not available 2023 18:42:47 Father Cerebrovascu lar accident [email or web address] Not available 04/2024 18:43:01 Father Family member [email or web address] Not available 12/07 08:51:42 Sister Myocardial infarction [email or web address] Not available 09/16 18:43:06 Sister Malignant neoplastic disease x2 [email or web address] Not available 12/07 08:51:42 Sister Heart disease [email or web address] Not available 07/28 08:00:31 Brother Cerebrovascu lar accident [email or web address] Not available 04/2024 18:43:15 Brother Hypertensive disorder [email or web address] Not available 2023 18:43:19 Brother Diabetes mellitus [email or web address] Not available 12/07 08:51:42 Notes:4 brothers, 6 sisters, 1 son, 3 daughters, Medical History Condition Response Coronary Artery Disease Y Other Y COPD Y Osteoporosis/Osteopenia Y Constipation Y Heart Attack (OR) Y Spine Problems Y Obstructive Sleep Apnea [...] completed Nancy nguyen, [place] [facility] - [place] & [place] 07/06/2023 12:46:08 COVID-19, mRNA, LNP-S, PF, 100 mcg/0.5mL dose or 50 mcg/0.25mL dose 1 completed Nancy nguyen, [place] - [facility] - [place] & [place] 07/06/2023 12:46:08 Influenza, split virus, trivalent, PF 8 completed Nancy Treadwell null, [place] [facility] - [place] & [place] 07/06/2023 12:46:08 Td (adult), 2 Lf tetanus toxoid, preservative free, adsorbed 7 completed Nancy nguyen, [place] - [facility] [facility] 07/06/2023 12:46:08 Past Encounters Encounter ID Performer Location Encounter Start Date Encounter Closed Date Diagnosis/Indication Diagnosis SNOMED-CT Code Diagnosis ICD10 Code Diagnosis Note [id number] Kyler Holloway MD [facility] [address] [facility] [address] [place] [address] 10/17/2024 10:52:22 10/17/2024 13:54:10 Type 2 diabetes mellitus 25018749 E11.9 A1C in hospital was 6.9% Given [...] remains on Jardiance, lisinopril and torsemide. Nausea 016639442 R11.0 unsure of initial etiology. Appears to be resolved with no significan t sequelae. No need for further workup or medication s at this time. [id number] Kyler Holloway MD [facility] [address] [facility] [address] [place] [address] 11/11/2024 12:53:19 11/11/2024 13:32:52 Nausea, vomiting and diarrhea 1304990 R11.2 R19.7 resolved. Still on loperamide and ondansetro n p.r.n. keep appointmen t with Dr. Robin later this month. We will request ER records, labs and imaging results from [facility]. Health Concerns Section Related Observation LastModified by Organization Detai ls LastModified Time None Recorded Concern Status LastModified by Organization Details LastModified Time None Recorded Payers Encounter Date Sequence Insurance Name Policy Number Policy Dietrich Covered Member ID Dietrich Member ID Guarantor Name 11/11/2024 1 [facility] (MEDICAID REPLACEMENT - HMO) [id number] Seamus Persaud [id number] Seamus Persaud Notes Date Note Type Note Provider Name and Address Organization Details Recorded Time 11/11/2024 text/html Pt presents for F/U after being seen at [facility] ER on THU, 2 days earlier for vomiting and diarrhea. 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 Has a F/U appt scheduled with GI Dr. Robin in [place] on 11/29/24 at 12 noon. No change in meds other than some loperamide for the diarrhea and ondansetron for the nausea Kyler Holloway MD [id number] [facility], [place], [address], [facility] - [place] & [place] 11/11/2024 13:39:02
--- OUTSIDE RECORDS SUMMARY | 2024-12-23 12:00 | XMS_ITS | Clinical Summary ---
Author Organization [facility] Address [facility] [place] [address] Care Team Providers Care Possum Trapper Name Role Phone Hilton Maria MD Unavailable Philip Khan MD Primary Care Provider + [phone] Allergies Active Allergy Reactions Criticality Noted Date [...] 2 Active ergocalciferol (Vitamin D-2) 1.25 MG (39369 UT) capsule Take 1 capsule (50,000 Units) [...] Active Problems Problem Noted Date Diagnosed Date Carpal tunnel syndrome, left 12/14/2024 Acute kidney failure, unspecified 10/10/2024 Type 2 diabetes mellitus wit h diabetic neuropathy, unspecified 05/27/2024 Chronic kidney disease, stage 3 unspecified 01/2024 Hyperlipidemia 11/27/2023 Gastroesophageal reflux disease 11/27/2023 Essential hypertension 11/27/2023 Anxiety 11/27/2023 Cervical disc disorder at C5-C6 level with radic ulopathy 04/01/2022 Overview (04/01/2022): Added automatically from request for surgery [id number] Encounters Date Type Department Care Team Description 12/14/2024 10:30 AM EDT Office Visit [facility] [address] [place] [address] Berenice Silver MD Carpal tunnel syndrome, left (Primary Dx) 12/14/2024 Travel 11/18/2024 10:20 AM EDT Office Visit [facility] [address] [place] [address] Christine Deng APRN Stage 3b chronic kidney disease ([facility]) (Primary Dx); Diabetes mellitus due to underlying condition with diabetic chronic kidney disease, unspecified CKD stage, unspecified whether alf insulin use ([facility]); Essential hypertension; Chronic kidney disease-mineral and bone disorder 11/18/2024 Travel 11/17/2024 Travel 11/11/2024 10:50 AM EDT Office Visit [facility] [address] [place] [address] Berenice Silver MD Numbness and tingling in left hand (Primary Dx) 11/11/2024 Travel 10/27/2024 Telephone [facility] [address] [place] [address] Berenice Silver MD HCN - Patient Message 10/20/2024 1:37 PM EDT - 10/20/2024 11:59 PM EDT Hospital Encounter [facility] [address] [place] [address] Numbness and tingling in left hand Discharge Disposition: Home or Self Care 10/20/2024 Travel 09/28/2024 10:40 AM EDT Office Visit [facility] [address] [place] [address] Berenice Silver MD Numbness and tingling in left hand (Primary Dx) 09/28/2024 Travel from Last 3 Months Immunizations Immunization [...] Pulse 77 12/14/2024 10:02 AM EDT Temperature 36.6 C (97.8 F) 07/04/2024 12:34 PM EST Respiratory Rate 18 11/18/2024 10:31 AM EDT Oxygen Saturation 97% 12/14/2024 10:02 AM EDT Inhaled Oxygen Concentration - - Weight 97.5 kg (215 lb) 12/14/2024 10:02 AM EDT Height 167.6 cm (5' 6 ) 12/14/2024 10:02 AM EDT Body Mass Index 34.7 12/14/2024 10:02 AM EDT Plan of Treatment Upcoming Encounters Date Type Department Care Team (Late st Contact Info) Description 02/09/2025 7:30 AM EDT Hospital Encounter [facility] [address] [place] [address] Berenice Silver MD [address] [place] [address] 02/09/2025 7:30 AM EDT - 02/09/2025 8:45 AM EDT Surgery [facility] Room [address] [place] [address] Berenice Silver MD [address] [place] [address] left carpal tunnel revision release [[id number] (CPT )] 02/22/2025 11:10 AM EDT Office Visit [facility] [address] [place] [address] Berenice Silver MD [address] [place] [address] 06/16/2025 8:20 AM EST Office Visit [facility] [address] [place] [address] Christine Deng, DISEASE INTERVENTION SPECIALIST [address] [address] Scheduled Procedures Name Priority Associated Diagnoses Date/Ti me RELEASE, CARPAL TUNNEL Carpal tunnel syndrome, left 02/09/2025 7:30 AM EDT RELEASE, CARPAL TUNNEL Carpal tunnel syndrome, left Health Maintenance Due Date Last Done Comments [...] - Risk 60-74 years 1-dose series) 2022 [id number] Vaccine (3 - season) 2024 09/19/2020, 08/22/2020 [facility]-Influenza Vaccine (#1) 2025 04/19/2018 [facility]-Depression Screening 09/22/2025 09/22/2024 [facility]-Hepatitis C Screening Completed 10/27/2019 [facility]-Obesity Intervention Completed 025, 11/18/2024, 11/11/2024, Additional history exists HPV Vaccines Aged Out [...] EDT Numbness and tingling in left hand HEMOGLOBIN A1C Routine 04/01/2022 11:28 AM EDT [...] HOFF IMG US PROCEDURES Final Result * (ABNORMAL) Hemoglobin A1c (04/01/2022 11:28 AM EDT) Hemoglobin A1c 6.9(H) <5.7 % 04/01/2022 2:45 PM EDT [facility] Blood Venous blood specimen / Unknown Venipuncture / Unknown 04/01/2022 11:28 AM EDT 04/01/2022 11:29 AM EDT Narrative [facility] - 04/01/2022 2:45 PM EDT HA1C [...] ORDERA BLES Final Result [facility] [address] [place] [address] * CT Angio Pulmonary Embolism (10/27/2019 2:46 [...] Flores IMG CT PROCEDURES Final Result * [facility] Hepatitis C Antibody (10/27/2019 1:10 PM EDT) [facility] Hepatitis C Ab NEGATIVE Reference Range: Negative SUNQUEST 10/27/2019 1:10 PM EDT 10/27/2019 1:19 PM EDT [facility] BLOOD ORDERABLES Final Resul t SUNQUEST from Last 3 Months or Most Recently Relevant to Health Maintenance Insurance MATILDE [place] [id number] [facility] MEDICAID Care Teams Possum Trapper Relationship Specialty Start Date End Date Philip Khan MD [address] [place] [address] PCP - General Internal Medicine 04/01/22 Hilton Maria MD [address] [place] [address] Surgeon Neurosurgery 04/01/22
--- OUTSIDE RECORDS SUMMARY | 2024-12-23 12:00 | XMS_ITS | Encounter Summary ---
Author Organization Healthcare Address [address] [place] [address] Care Team Providers Care Hairspring Ii Inspector Name Role Phone Hilton Maria MD Unavailable Philip Khan MD Primary Care Provider + [phone] Encounter Details Date Type Department Care Team (Late Contact Info) Description 01/21/2023 Orders Only External Location [address] [place] [address] Enrico Flores MD [address] [address] Social History Tobacco Use Types Packs/Day [...] Hospital Encounter [facility] [address] [place] [address] Berenice Silver MD [address] [phone] 02/09/2025 7:30 AM EDT - 02/09/2025 8:45 AM EDT Surgery [facility] Room [address] [place] [address] Berenice Silver MD [address] [place] [address] left carpal tunnel revision release [[id number] (CPT )] 02/22/2025 11:10 AM EDT Office Visit [facility] [address] [place] [address] Berenice Silver MD [address] [place] [address] 06/16/2025 8:20 AM EST Office Visit [facility] [address] [place] [address] Christine Deng, COMMUNITY NURSE [address] [address] Scheduled Procedures Name Priority Associated Diagnoses Date/Ti me RELEASE, CARPAL TUNNEL Carpal tunnel syndrome, left 02/09/2025 7:30 AM EDT RELEASE, CARPAL TUNNEL Carpal tunnel syndrome, left documented as of this encounter Procedures Procedure [...] documented as of this encounter Care Teams Hairspring Ii Inspector Relationship Specialty Start Date End Date Philip Khan MD [address] [place], [place] [address] PCP - General Internal Medicine 04/01/22 Hilton Maria MD [address] [place] [address] Surgeon Neurosurgery 04/01/22 documented as of this encounter
--- OUTSIDE RECORDS SUMMARY | 2024-12-23 12:01 | XMS_ITS | Encounter Summary ---
Author Organization Healthcare Address [address] [place] [address] Care Team Providers Care Organic Chemist Name Role Phone Hilton Maria MD Unavailable Philip Khan MD Primary Care Provider + [phone] Encounter Details Date Type Department Care Team [...] Encounter [facility] [address] [place] [address] Berenice Silver MD [address] [address] 02/09/2025 7:30 AM EDT - 02/09/2025 8:45 AM EDT Surgery [facility] Room [address] [place] [address] Berenice Silver MD [address] [place] [address] left carpal tunnel revision release [[id number] (CPT )] 02/22/2025 11:10 AM EDT Office Visit [facility] [address] [place] [address] Berenice Silver MD [address] [place] [address] 06/16/2025 8:20 AM EST Office Visit [facility] [address] [place] [address] Christine Deng, DIETITIAN TEACHING [address] [facility] [address] [place] [address] Scheduled Procedures Name Priority Associated [...] documented as of this encounter Care Teams Organic Chemist Relationship Specialty Start Date End Date Philip Khan MD [address] [place] [address] PCP - General Internal Medicine 04/01/22 Hilton Maria MD [address] [place] [address] Surgeon Neurosurgery 04/01/22 documented as of this encounter
--- OUTSIDE RECORDS SUMMARY | 2024-12-23 12:01 | XMS_ITS | Encounter Summary ---
Author Organization Healthcare Address [address] [place] [address] Care Team Providers Care Special Procedure Technologist Name Role Phone Hilton Maria MD Unavailable Philip Khan MD Primary Care Provider + [phone] Encounter Details Date Type Department Care Team [...] [facility] Operating Room [address] [place] [address] Berenice Silver MD [address] [address] 02/09/2025 7:30 AM EDT - 02/09/2025 8:45 AM EDT Surgery [facility] Operating Room [address] [place] [address] Berenice Silver MD [address] [place] [address] left carpal tunnel revision release [[id number] (CPT )] 02/22/2025 11:10 AM EDT Office Visit [facility] [address] [place] [address] Berenice Silver MD [address] [place] [address] 06/16/2025 8:20 AM EST Office Visit [facility] [address] [place] [address] Christine Deng, HR DIRECTOR [address] [facility] [address] [place] [address] Scheduled Procedures Name Priority Associated [...] documented as of this encounter Care Teams Special Procedure Technologist Relationship Specialty Start Date End Date Philip Khan MD [address] [place] [address] PCP - General Internal Medicine 04/01/22 Hilton Maria MD [address] [place] [address] Surgeon Neurosurgery 04/01/22 documented as of this encounter
--- OUTSIDE RECORDS SUMMARY | 2024-12-23 12:01 | XMS_ITS | Encounter Summary ---
Author Organization Healthcare Address [address] [place] [address] Care Team Providers Care Economic Forecaster Name Role Phone Hilton Maria MD Unavailable Philip Khan MD Primary Care Provider + [phone] Encounter Details Date Type Department Care Team (Latest Contact Info) Description 12/14/2024 Travel Social History Tobacco Use Types Packs/Day [...] [facility] Operating Room [address] [place] [address] Berenice Silver MD [address] [address] 02/09/2025 7:30 AM EDT - 02/09/2025 8:45 AM EDT Surgery [facility] Operating Room [address] [place] [address] Berenice Silver MD [address] [place] [address] left carpal tunnel revision release [44085 (CPT )] 02/22/2025 11:10 AM EDT Office Visit [facility] [address] [place] [address] Berenice Silver MD [address] [place] [address] 06/16/2025 8:20 AM EST Office Visit [facility] [address] [place] [address] Christine Deng, [employer] CAPT[employer] POWER PLANT MANAGER [address] [facility] [address] [place] [address] Scheduled Procedures Name Priority Associated [...] documented as of this encounter Care Teams Economic Forecaster Relationship Specialty Start Date End Date Philip Khan MD [address] [place] [address] PCP - General Internal Medicine 04/01/22 Hilton Maria MD [address] [place] [address] Surgeon Neurosurgery 04/01/22 documented as of this encounter
--- OUTSIDE RECORDS SUMMARY | 2024-12-23 12:01 | XMS_ITS | Encounter Summary ---
Author Organization Healthcare Address [address] [place] [address] Care Team Providers Care Transport Technician Name Role Phone Hilton Maria MD Unavailable Philip Khan MD Primary Care Provider + [phone] Encounter Details Date Type Department Care Team [...] [facility] S Operating Room [address] [place] [address] Berenice Silver MD [address] [address] 02/09/2025 7:30 AM EDT - 02/09/2025 8:45 AM EDT Surgery [facility] Operating Room [address] [place] [address] Berenice Silver MD [address] [place] [address] left carpal tunnel revision release [76868 (CPT )] 02/22/2025 11:10 AM EDT Office Visit Terrie Ruiz [address] [place] [address] Berenice Silver MD [address] [place] [address] 06/16/2025 8:20 AM EST Office Visit [facility] [address] [place] [address] Christine Deng, MANAGER EXPORT [address] [facility] [address] [place] [address] Scheduled Procedures Name Priority Associated [...] documented as of this encounter Care Teams Transport Technician Relationship Specialty Start Date End Date Philip Khan MD [address] [place] [address] PCP - General Internal Medicine 04/01/22 Hilton Maria MD [address] [place] [address] Surgeon Neurosurgery 04/01/22 documented as of this encounter
--- OUTSIDE RECORDS SUMMARY | 2024-12-23 12:01 | XMS_ITS | Encounter Summary ---
Author Organization Healthcare Address [address] [place] [address] Care Team Providers Care Drug Safety Specialist Name Role Phone Hilton Maria MD Unavailable Philip Khan MD Primary Care Provider + [phone] Reason for Referral * Consultation (Routine) - Closed Specialty Diagnoses / Procedures Referred By Contac t Referred To Contact Nephrology Diagnoses Stage 3b chronic kidney disease (CMS/HCC) Kyler Holloway MD [address] [address] Phone: tel: fax: Kirby Colin MD [address] [address] Phone: tel: fax: Referral ID Status Reason Start Date Expiration Date V isits Requested Visits Authorized [id number] Closed Specialty Services Required 02/16/2024 08/17/2025 1 1 Encounter Details Date Type Department Care Team (Late st Contact Info) Description 02/16/2024 Community [facility] Community [facility] [address] [place] [address] Kyler Holloway MD 105 [facility] [address] [place] [address] Stage 3b chronic kidney disease [...] Description 02/09/2025 7:30 AM EDT Hospital Encounter [facility] S Operating Room [address] [place] [phone] Berenice Silver MD [address] [place] [address] 02/09/2025 7:30 AM EDT - 02/09/2025 8:45 AM EDT Surgery [facility] S Operating Room [address] [place] [address] Berenice Silver MD [address] [place] [address] left carpal tunnel revision release [79249 (CPT )] 02/22/2025 11:10 AM EDT Office Visit Terrie Hand [address] [place] [address] Berenice Silver MD [address] [place] [address] 06/16/2025 8:20 AM EST Office Visit [facility] [address] [place] [address] Christine Deng, SAP ARIBA CONSULTANT [address] [address] Scheduled Procedures Name Priority Associated Diagnoses Date/Ti me RELEASE, CARPAL TUNNEL Carpal tunnel syndrome, left 02/09/2025 7:30 AM EDT RELEASE, CARPAL TUNNEL Carpal tunnel syndrome, left Scheduled Referrals Name Type Priority Associated Diagnoses Order Schedule Ambulatory referral to Nephrology Outpatient Referral Routine Stage 3b chronic kidney disease (CMS/HCC) Expected: 02/16/2024 (Approximate), Expires: 08/15/2025 documented as of this encounter Visit Diagnoses Diagnosis Stage 3b chronic kidney disease (CMS/HCC)- Primary Carpal tunnel syndrome, left Carpal tunnel syndrome documented in this encounter Additional Health Concerns Assessment Noted Time A fall risk assessment has been complete d for the patient 04/01/2022 9:09 AM EDT A Body Mass Index follow-up plan has been documented for the patient 02/25/2023 1:16 PM EDT documented as of this encounter Care Teams Drug Safety Specialist Relationship Specialty Start Date End Date Philip Khan MD [address] [place] [address] PCP - General Internal Medicine 04/01/22 Hilton Maria MD [address] [place] [address] Surgeon Neurosurgery 04/01/22 documented as of this encounter
--- OUTSIDE RECORDS SUMMARY | 2024-12-23 12:01 | XMS_ITS | Patient Health Record ---
Author Organization [facility] Address [address] [place] [address] [address] [place] [address] Care Team Providers Care Carburizing Furnace Operator Name Role Phone Lyndon Hernandez MD Unavailable [...] Risk Notes Problem Malignant tumor of lung (008084878) Malignant neoplasm of unspecified part of unspecified bronchus or lung (C34.90) Active confirmed Problem Cervical spondylosis without myelopathy (834434076) Other spondylosis with radiculopathy, cervical region (M47.22) Active confirmed Problem Lumbosacral spondylosis without myelopathy (disorder) (08967095) Spondylosis without myelopathy or radiculopathy, lumbosacral region (M47.817) Active confirmed Problem Long-term current use of drug therapy (156001082) Other mcc (current) drug therapy (Z79.899) Active confirmed Plan Of Treatment No Information Insurance Providers Payer Name Payer Address Payer Phone Subscriber Number Group Number Insured Name Patient Relationship to Insured Coverage Start Date Coverage End Date [place] An[place] Medicaid [address] [address] [place] [address] [id number] [facility] Seamus Persaud Self - patient is [...] Medina CHF [address] Medina [place] [address] Gonzalez Arthritis [address] Medina Anemia [address] Medina CAD [address] Gonzalez 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 Surgery Date(Month/Year) Gallbladder- capitan grande band(OP) 2009 Lt shoulder- Dr. Dickerson/ Mercedes (OP) 20 12 Rt Knee surgery X2- Dr. Hayes/ [facility] (OP) [address] Olvera/ Patrick Clayton(OP) 01/2017 Cardiac Ablation for SVT at / (OP) 201 7 Colonoscopy [facility]- Dr Reba hernández (OP) 2018 Capsule endoscopy- Dr. Dickinson/ Patrick Clayton (O P) 09/2018 EGD/EUS- Dr. Locke/ Patrick Clayton (OP) 07/28 19 [facility] W/out stents/ Patrick Clayton (OP) 07/2018 EGD- Griffin/Jon Jones / OP 06/09 021
--- OUTSIDE RECORDS SUMMARY | 2024-12-23 12:01 | XMS_ITS | Encounter Summary ---
Author Organization Healthcare Address [address] [place] [address] Care Team Providers Care Research Interviewer Name Role Phone Hilton Maria MD Unavailable Philip Khan MD Primary Care Provider + [phone] Reason for Visit * Reason Onset Date Comments HCN - Patient Message 10/27/2024 Encounter Details Date Type Department Care Team (Late st Contact Info) Description 10/27/2024 Telephone [facility] [address] [place] [address] Berenice Silver MD [address] [address] HCN - Patient Message Social [...] go over ultrasound results Best contact number: [phone] (mobile) Optimal time of day to reach caller: ANYTIME Additional comments/information from caller: None Note: Please do not reply to this message. Follow-up communication and further actions as a result of this message need to be communicated with the patient directly, if the patient is not active onMyChart. If the patient is active on MyChart, they will receive notification of the communication/outcome via [employer]hart. documented in this encounter Plan of Treatment Upcoming Encounters Date Type Department Care Team (Late st Contact Info) Description 02/09/2025 7:30 AM EDT Hospital Encounter [facility] S Operating Room [address] [place] [phone] Berenice Silver MD [address] [place] [address] 02/09/2025 7:30 AM EDT - 02/09/2025 8:45 AM EDT Surgery [facility] S Operating Room [address] [place] [address] Berenice Silver MD [address] [place] [address] left carpal tunnel revision release [20210 (CPT )] 02/22/2025 11:10 AM EDT Office Visit Terrie Hand [place] [address] Berenice Silver MD [address] [place] [address] 06/16/2025 8:20 AM EST Office Visit [facility] [address] [place] [address] Christine Deng, WILD ANIMAL CARETAKER [address] [facility] [address] [place] [address] Scheduled Procedures Name Priority Associated [...] documented as of this encounter Care Teams Research Interviewer Relationship Specialty Start Date End Date Philip Khan MD [address] [facility] [address] [place] [address] PCP - General Internal Medicine 04/01/22 Hilton Maria MD [address] [facility] [address] [place] [address] Surgeon Neurosurgery 04/01/22 documented as of this encounter
--- OUTSIDE RECORDS SUMMARY | 2024-12-23 12:01 | XMS_ITS | Data Portability ---
Author Organization [facility] & RUDOLPH Motley ADMIN Address [address] [place] [address] Care Team Providers Care Compliance Vice President Name Role Phone KYLER HOLLOWAY Primary Care Provider Assessment No assessment recorded. Plan of Treatment Reminders Order Date Submit Date Provider Last Modified By Organization Details Last Modified Time Details Appointments None recorded. Lab hepatic function panel, serum 2024 025 [email or web address] [facility], [address], [place], [address], 5 09:46:15 HbA1c (hemoglobin A1c), blood 2024 025 [email or web address] [facility], [address], [place], [address], 5 20:53:57 microalbumi n/creatinin e, mass ratio, urine 2024 025 DIVINE [facility], [address], [address], [place], [address], 5 03:36:52 Referral None recorded. Procedures None recorded. Surgeries None recorded. Imaging None recorded. Medication Orders terbinafine HCl 250 mg tablet 2024 025 [facility], [address], [place], [place], [id number], 5 10:34:03 Lantus Solostar U-100 Insulin 100 unit/mL (3 mL) subcutaneou s pen 2024 025 [facility], [address] [place] [address], MATILDE Gerardo, [id number], 5 11:41:54 zolpidem 10 mg tablet 2024 025 [facility], [address] [place] [address], MATILDE Gerardo, [id number], 5 15:15:36 Restoril 15 mg capsule 2024 025 [facility], [address] [place] [address], MATILDE Gerardo, [id number], 5 14:51:42 Lantus Solostar U-100 Insulin 100 unit/mL (3 mL) subcutaneou s pen 2024 025 [facility], [address] [place] [address], MATILDE Gerardo, [id number], 5 10:55:17 meloxicam 15 mg tablet 2024 025 [facility], [address] [place] [address], MATILDE Gerardo, [id number], 5 10:55:19 Patient TargetsNo targets recorded. Patient InstructionsNo instructions recorded. Reason for Referral None Reported. Results Created Date Observation Date Name Description Value Unit Range Abnormal Flag Note LastModifiedBy Organization Detail LastModifiedTime 08/26/1908/26/2024 ALBUM IN/CR EAT RATIO , RANDO M UR creatinine, urine 53.6 mg/dL not estab. normal Not Available [facility] ([facility]) [address] [facility], [place], [address], 08/26/2024 03:36:52 08/26/19 25 08/26/2024 ALBUM IN/CR EAT RATIO , GARTH Mancilla UR albumin, urine 11.1 ug/mL not estab. Not Available [facility] ([facility]) [address] [facility], [place], [address], 08/26/2024 03:36:52 08/26/19 25 08/26/2024 ALBUM IN/CR EAT RATIO , CHEYO Laurent UR alb/creat ratio 21 mg/g_ creat 0-29 Ayah l: 0 - 29 Moder ately incre ased: 30 - 300 Sever mason incre ased: >300 Not Available [facility] ([facility]) [address] [facility], [place], [address], 08/26/2024 03:36:52 08/26/19 25 08/25/2024 HbA1c (hemo globi n A1c), blood HbA1c 7.0 Not Available [facility] [address], [place], [address], 08/25/2024 14:39:23 12/13/19 25 12/12/2024 imagi ng/sohail reyes tic resul t No observ ation record ed. [facility] [address], [place], [address], 12/12/2024 15:38:09 Result Notes None recorded. Problems Name Problem SNOMED Code Status Onset Date Resolution Date Notes Provider Name and Address Organization Details Recorded Time Chronic obstructive pulmonary disease 41332227 Active 2023 MATILDE Nunn - [place] 4 16:22:45 Chronic back pain 296914274 Active 2023 MATILDE Nunn - [facility] - [place] [facility] [place] 4 16:22:55 Anxiety 23621908 Active 2023 MATILDE Nunn [facility] - [place] [facility] [place] 4 16:23:05 Coronary atheroscleros is 072535117 Active 2023 Nancybarbie Treadwell null, [place] - [facility] [place] 4 16:23:26 Essential hypertension 56319726 Active 2023 Nancybarbie Treadwell null, [place] [facility] [place] 4 16:23:37 Neuropathy due to diabetes mellitus 449401461 Active 2023 Nancybarbie Treadwell null, [place] [facility] [place] 4 16:23:50 Hyperlipidemi a 41281496 Active 2023 Nancybarbie Treadwell null, [place] [facility] [place] 4 16:24:02 Gastroesophag eal reflux disease 834382195 Active 2023 Nancy Treadwell null, [place] [facility] [place] 4 16:24:39 Insomnia 092702392 Active 2023 Nancybarbie Treadwell null, [place] - [facility] [place] 4 16:24:48 Problem Notes None recorded. Procedures 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 Date Name Laterality Status Provider Name and Address Organization Details Recorded Time 2019 Colonoscopy completed Debra CLAYTON - [facility] - [place] [facility] [place] 4 13:18:37 2019 esophagogastroduodenoscopy completed Juan CLAYTON - [facility] - [place] [facility] [place] 4 13:18:55 2018 catheterization of left heart completed Lindsay Ferguson [place] - [facility] - [place] 4 13:26:09 2016 destruction of lesion of heart completed Lindsay Ferguson [place] - [facility] [place] 4 13:25:03 2013 procedure on knee completed Lindsay Ferguson [place] - [facility] [place] 4 13:19:36 2011 procedure on shoulder completed Lindsay Rojoamer [place] - [facility] - [place] 4 13:20:13 2008 Cholecystectomy completed Lindsay Roberson [facility] & [place] 4 13:19:14 Imaging Results None recorded. Procedure Notes None recorded. Medical Equipment None Reported. Allergies Allergen ID Allergen Name Allergen Category Reaction Reaction Severity Criticality Documentation Date Start Date Code Code System Note Provider Name and Address Organization Details Recorded Time 237238 naproxen medicatio n hives nausea vomiting Not available Not available Not available Not available 07/06/2023 7258 RxNorm crirodolfo nguyen, [facility] [place] 4 09:50:08 385129 tramadol medicatio n hives nausea Not available Not available Not available 07/06/2023 10306 RxNorm laure nguyen, [facility] & [place] 4 09:50:10 Medications Name Sig Start Date [...] Not Available Not Available FreeStyle Joselito 3 [place] active Not Available Not Available Not Available Vitals Date Recorded Body height Body mass index (BMI) Body weight Body temperature Oxygen saturation Oxygen saturation in Arterial blood by Pulse oximetry Heart rate Systolic And Diastolic Provider Name and Address Organization Details Last Updated DateTime 5 165.1 cm 37.6 kg/m2 474809. 88 g 97.7 [degF] 95 % 95 % 82 /min 116/81 mm[Hg] Lora GALDAMEZ [facility] & [place] 5 10:16:58 Date Recorded Body height Body weight Body temperature Oxygen saturation Oxygen saturation in Arterial blood by Pulse oximetry Heart rate Systolic And Diastolic Provider Name and Address Organization Details Last Updated DateTime 5 165.1 cm 312262. 52 g 98.9 [degF] 96 % 96 % 78 /min 114/78 mm[Hg] Sera Roberson [facility] & [place] 5 14:37:24 Date Recorded Body height Body mass index (BMI) Body weight Body temperature Oxygen saturation Oxygen saturation in Arterial blood by Pulse oximetry Heart rate Systolic And Diastolic Provider Name and Address Organization Details Last Updated DateTime 5 165.1 cm 35.8 kg/m2 57817.3 7 g 98.2 [degF] 98 % 98 % 110 /min 102/60 mm[Hg] Sera Roberson [facility] & [place] 5 11:03:36 Date Recorded Body height Body mass index (BMI) Body weight Body temperature Oxygen saturation Oxygen saturation in Arterial blood by Pulse oximetry Heart rate Systolic And Diastolic Provider Name and Address Organization Details Last Updated DateTime 5 165.1 cm 36.3 kg/m2 74475.1 4 g 97.8 [degF] 99 % 99 % 95 /min 130/82 mm[Hg] Zaira Mendoza MATILDE Roberson [facility] & [place] 5 13:07:30 Date Recorded Body height Body mass index (BMI) Body weight Body temperature Oxygen saturation Oxygen saturation in Arterial blood by Pulse oximetry Heart rate Systolic And Diastolic Provider Name and Address Organization Details Last Updated DateTime 5 165.1 cm 35.8 kg/m2 95618.0 3 g 97.7 [degF] 96 % 96 % 78 /min 110/60 mm[Hg] Sera Roberson [facility] & [place] 5 09:16:34 Social History Question Answer Notes LastModified by Organizat ion Details LastModified Time Tobacco Smoking Status Former Smoker MATILDE Denson [facility] & [place] 01/14/2024 14:09:33 Do You Have An Advance Directive? No [email or web address] Information not available 01/14/2024 Are You Blind Or Do You Have Difficulty Seeing? Yes [email or web address] Information not available 01/14/2024 What Is Your Level Of Caffeine Consumption? Moderate [email or web address] Information not available 07/06/2023 What Was The Date Of Your Most Recent Tobacco Screening? 11/24/2023 [email or web address] Information not available 01/14/2024 Are You Passively Exposed To Smoke? No [email or web address] Information not available 01/14/2024 How Much Tobacco Do You Smoke? No [email or web address] Information not available 01/14/2024 How Many Years Have You Smoked Tobacco? 4 Information not available 01/14/2024 Sex: Unknown Functional Status Question Answer Note LastModified by Organizat ion Details LastModified Time Do you use any illicit or recreational drugs? No [email or web address] Information not available 01/14/2024 What is your level of alcohol consumption? Occasional [email or web address] Information not available 07/06/2023 Do you or have you ever used smokeless tobacco? Never used smokeless tobacco [email or web address] Information not available 01/14/2024 What is your exercise level? Occasional [email or web address] Information not available 01/14/2024 Mental Status Question Answer Note LastModified by Organization D etails LastModified Time Do you feel stressed (tense, restless, nervous, or anxious, or unable to sleep at night)? [id number] Information not available 01/14/2024 Family History Relationship Description Onset Age of this Age Resolved Age Notes LastModified by Organization Details LastModified Time Mother Coronary arterioscler osis [email or web address] Not available 12/07 08:51:42 Mother Hypertensive disorder [email or web address] Not available 2023 18:42:21 Mother Myocardial infarction [email or web address] Not available 09/16 18:42:29 Mother Family member [email or web address] Not available 12/07 08:51:42 Mother Heart disease [email or web address] Not available 07/28 08:00:31 Father Diabetes mellitus [email or web address] Not available 12/07 08:51:42 Father Hypertensive disorder [email or web address] Not available 2023 18:42:47 Father Cerebrovascu lar accident [email or web address] Not available 04/2024 18:43:01 Father Family member [email or web address] Not available 12/07 08:51:42 Sister Myocardial infarction [email or web address] Not available 09/16 18:43:06 Sister Malignant neoplastic disease x2 [email or web address] Not available 12/07 08:51:42 Sister Heart disease [email or web address] Not available 07/28 08:00:31 Brother Cerebrovascu lar accident [email or web address] Not available 04/2024 18:43:15 Brother Hypertensive disorder [email or web address] Not available 2023 18:43:19 Brother Diabetes mellitus [email or web address] Not available 12/07 08:51:42 Notes:4 brothers, 6 sisters, 1 son, 3 daughters, Medical History Condition Response Diabetes Y Coronary Artery Disease Y Obesity Y Other Y Vision or Eye Problems Y Arthritis Y Congestive Heart Failure (CHF) Y Cancer Y Back Problems Y Stroke Y COPD Y Osteoporosis/Osteopenia Y Constipation Y Reflux/GERD Y High Cholesterol Y Heart Attack ([place]) Y Spine Problems Y Headaches Y Hypertension Y Obstructive Sleep Apnea Y Kidney Disease Y Immunizations Vaccine Type Date Status Note Provider Nam e and Address Organization Details Recorded Time COVID-19, mRNA, LNP-S, PF, 100 mcg/0.5mL dose or 50 mcg/0.25mL dose 1 completed Nancy nguyen [place] - [facility] - [place] 07/06/2023 12:46:08 COVID-19, mRNA, LNP-S, PF, 100 mcg/0.5mL dose or 50 mcg/0.25mL dose 1 completed Nancy nguyen, [place] - [facility] [place] 07/06/2023 12:46:08 Influenza, split virus, trivalent, PF 8 completed Nancy nguyen [place] - [facility] [place] 07/06/2023 12:46:08 Td (adult), 2 Lf tetanus toxoid, preservative free, adsorbed 7 completed Nancy nguyen [place] - [facility] [place] 07/06/2023 12:46:08 Past Encounters Encounter ID Performer Location Encounter Start Date Encounter Closed Date Diagnosis/Indication Diagnosis SNOMED-CT Code Diagnosis ICD10 Code Diagnosis Note [id number] Kyler Holloway MD [address],[facility] [address] [place] [address] 07/06/2023 12:23:46 07/06/2023 13:32:16 Type 2 diabetes mellitus 48412254 E11.21 On Januvia and Jardiance. Will need to RTC for labs at some point: CBC, CMP, FLP, TSH, Vit D, A1c Diabetic p eripheral neuropathy 103304448 E11.40 on gabapentin Essential hypertension 20356190 I10 on lisinopril Hyperlipidemia 06964091 E78.5 on rosuvastat in Gastroesop hageal reflux disease 242575498 K21.9 on pantoprazo le and famotidine Coronary arteriosclerosis 55722979 I25.[address] Gonzalez in [place]. On Clopidogre l, Isorbide mononitrat e. Anxiety 23551803 F41.9 Has been on quetiapine qhs and clonazepam bid. Have given him Christine Alvarado's contact info Chronic back pain 824677 002 G89.29 on oxycodone per [facility] Chronic ob structive pulmonary disease 12023183 J44.9 On spiriva and Ventolin-S ees Pulmonolog ist in [place]- Dr. Gutierrez [id number] Kyler Holloway MD [facility] [address] [place] [address] 10/05/2023 08:52:45 10/05/2023 09:44:20 Type 2 diabetes mellitus 32452708 E11.21 On Januvia and Jardiance. Will need to RTC for labs tomorrow: CBC, CMP, FLP, TSH, Vit D, A1c Hyperlipidemia 53520591 E78.5 on rosuvastat in. Cont. Check FLP Diabetic p eripheral neuropathy 697295919 E11.40 on gabapentin 800 tid. RF today Essential hypertension 17267106 I10 on lisinopril . Cont Gastroesop hageal reflux disease 754338110 K21.9 on pantoprazo le and famotidine . Cont Coronary arteriosclerosis 24746548 I25.[address] Gonzlaez in [place]. On Clopidogre l, Isorbide mononitrat e. Anxiety 98413774 F41.9 On clonazepam bid. D/C'ing Seroquel Has not contacted Christine Dan Chronic back pain 612673 002 G89.29 on oxycodone per [facility] Chronic ob structive pulmonary disease 85050260 J44.9 On spiriva and Ventolin-S ees Pulmonolog ist in [place]- Dr. Gutierrez Insomnia 192432285 G47.0 9 D/C Seroquel and try amitriptyl ine. See back in 1 month [id number] Kyler Holloway MD [facility] [address] [facility] [address] [place] [address] 10/06/2023 09:18:37 10/06/2023 09:42:02 Essential hypertension 02563477 I10 on lisinopril . Cont [id number] Kyler Holloway MD [facility] [address] [facility] [place] [address] 10/27/2023 15:40:29 10/27/2023 16:43:34 Insomnia 198488975 G47.09 increase amitriptyl ine to 50 mg Gastroesop hageal reflux disease 503445967 K21.9 on pantoprazo le and famotidine . Cont Type 2 krystin betes mellitus 37910164 E11.21 A1C from 10/05 was 11.5 %. Already on Januvia and Jardiance. Could not tolerate metformin or Ozempic. Will start on night time insulin but cont Januvia and Jardiance for now. Hyperlipidemia 67860800 E78.5 on rosuvastat in. Diabetic p eripheral neuropathy 191147439 E11.40 on gabapentin 800 tid. Essential hypertension 60083955 I10 On low dose lisinopril and metoprolol Coronary arteriosclerosis 60366474 I25.[address] Gonzalez in [place]. On Clopidogre l, Isorbide mononitrat e. Anxiety 80459366 F41.9 Off clonazepam and Seroquel. Does not want to see Christine Dan due to daughter having had a bad experience . rec [facility] -number given Chronic back pain 068108 002 G89.29 on oxycodone per [facility] Chronic ob structive pulmonary disease 06390162 J44.9 On spiriva and Ventolin-S ees Pulmonolog ist in [place]- Dr. Gutierrez [id number] Kyler Holloway MD [facility] [address] [facility] [place] [address] 11/27/2023 15:48:15 11/27/2023 16:36:39 Type 2 diabetes mellitus 73889642 E11.21 A1c was 11.1%. with a random blood sugar today of 270 I believe we can safely iIncrease Lantus to 22 units at bedtime while continuing Jardiance 25and Januvia 289 [id number] Kyler Holloway MD [facility] [address] [facility] [facility] [place] [address] 01/28/2024 09:39:31 01/28/2024 13:15:51 Type 2 diabetes mellitus 55339003 E11.21 A1c was 11.1%. At his last visit. Lantus was increased to 22 units at bedtime while continuing Jardiance 25 and Januvia 100. He has gained 15 lb over the last 2 months according to our scales here. We will need to recheck hemoglobin A1c with other labs today as well as urine albumin creatinine . Hyperlipidemia 84871014 E78.5 On rosuvastat in 40 mg daily. Check lipid panel Insomnia 763870738 G47.0 9 Currently on amitriptyl ine 50 mg . We will continue Essential hypertension 82097218 I10 BP was low today at 95/59 . Currently on low dose lisinopril 5 mg and metoprolol 25 mg. May need to discontinu e 1 or the other. Diabetic p eripheral neuropathy 863040192 E11.40 on gabapentin 800 tid. we will continue [id number] Kyler Holloway MD [facility] [address] [facility] [facility] [place] [address] 02/11/2024 15:44:52 02/11/2024 17:23:00 Type 2 diabetes mellitus 59401819 E11.21 the A1c is improved obviously this is still not well controlled despite being on 2 oral agents as well as long-actin g insulin. Would like to see if he can tolerate Mounjaro where he could not tolerate the Ozempic so we will start him on a 2.5 mg IM weekly and follow up in a month Insomnia 751940671 G47.0 9 did not respond to amitriptyl ine. Therefore, would like to try doxepin 10 mg at bedtime increasing to 20 mg in 10 days if not improving Chronic ki dney disease stage 3B 761669656 N18.32 I do not really have a good explanatio n for his acute declining kidney function as his medication s have remained stable. Would like to refer to nephrology . He states there is a nephrologi st in [place] so we will refer him there for further evaluation [id number] Kyler Holloway MD [address] [place] [address] 04/11/2024 10:47:00 04/11/2024 12:03:08 Acute pancreatitis 679114189 K85.90 I was able to review his ER note and labs which showed a lipase of [address] normal abdominal CT. Check F/U labs. Go ahead and check amylase and lipase today. Hold Mounjaro. Peripheral edema 6417015 00 R60.9 ON 2 diuretics- torsemide and spironolac tone. Needs labs. [id number] Kyler Holloway MD [address] [place] [address] 05/17/2024 10:36:11 05/17/2024 12:11:41 Type 2 diabetes mellitus 41122323 E11.21 A1c from hospital was 11.1%. We will continue increase Lantus at 35 units and Continue the Jardiance 25 mg daily. Discontinu e Mounjaro which I do not think he has been on for the past few weeks. We will start Humalog sliding scale. A sample give a Vdolgyle Joselito 3+ as well as script for another sensor and reader. We will need to come back next week or the following week to review how he is doing on his current regimen. We will need to refer to endocrinol ogy [id number] Kyler Holloway MD [address] [place] [address] 05/27/2024 13:34:18 05/27/2024 14:39:23 Type 2 diabetes mellitus 44690285 E11.21 A1c from hospital was 11.1%. currently [...] more frequently now Diabetic p eripheral neuropathy 947191662 E11.40 Just refilled gabapentin 800 tid on 05/24. Essential hypertension 21860676 I10 BP was Better today at 114/68. Currently he remains on low dose lisinopril 5 mg and metoprolol 25 mg as well as isosorbide mononitrat e ER 60. [id number] Kyler Holloway MD [facility] [address] [facility] [place] [address] 06/10/2024 11:04:31 06/10/2024 11:59:25 Chest pain 68081703 R07.[address] [facility] [place] Post-disch arge follow-up 262559253 Z09 After patient left I was able to obtain hospital records which indicates he was admitted at [facility] on 05/30 with a complaint of chest pain and discharged on 06/01. He was noted to be hypotensiv e during admission with acute kidney insufficie ncy. He had an EKG as well as echo and blood work as well as chest CT with PE protocol, chest x-ray and lower extremity Dopplers which showed no PE. Ruled out for any [place]. EF was 55%. Diabetes was also noted to be uncontroll ed and long-actin g insulin was reinstitut ed along with sliding scale. In addition patient was seen in the ER post discharge on 06/04 with complaint of back pain and was treated with Toradol, methocarba mol and lidocaine patches. Low blood pressure 60532 003 I95.9 Improved. BP is 112/82 Acute kidney injury 1466 9001 N17.9 Improved. Remains on lisinopril and torsemide Chronic low back pain 27 4617825 M54.50 Stable [id number] Kyler Holloway MD [facility] [address] [facility] [place] [address] 07/05/2024 10:01:39 07/05/2024 11:04:52 Type 2 diabetes mellitus 69861010 E11.21 I have asked patient to check his blood sugars 1 hour after he eats in the morning and in the evening and see what kind of numbers he is getting. He is currently on Lantus 35 units at night and Jardiance 25 mg daily. [facility] was 11.1%. We will plan on following him up in August with repeat A1c at that time Arthritis of left knee 6934520378 021703 M13.862 Try meloxicam Insomnia 268920244 G47.0 9 Has not responded to doxepin, amitriptyl ine, mirtazapin e, trazodone or Seroquil. Will try Restoril [id number] Kyler Holloway MD [facility] [address] [facility] [place] [address] 08/25/2024 14:19:48 08/25/2024 15:06:48 Type 2 diabetes mellitus 64119124 E11.9 A1C today has improved from 11.1 back in May when he was in the hospital to 7.0 % today. We will continue Lantus at 35 units nightly along with Jardiance 25 mg daily and sliding scale regular insulin at mealtime. We were able to get a urine sample today for albumin creatinine ratio Insomnia 957750308 G47.0 9 Has failed multiple meds including trazodone, doxepin, amitriptyl ine, mirtazapin e, Seroquil, and temazepam. Give trial of Ambien as a last resort- Food insecurity 80747758 3 Z59.41 Had JARRETT Tommy speak with pt regarding [employer] Meals [id number] Kyler Holloway MD [facility] [address] [place] [address] 10/17/2024 10:52:22 10/17/2024 13:54:10 Type 2 diabetes mellitus 77330728 E11.9 A1C in hospital was 6.9% Given [...] remains on Jardiance, lisinopril and torsemide. Nausea 241129117 R11.0 unsure of initial etiology. Appears to be resolved with no significan t sequelae. No need for further workup or medication s at this time. [id number] Kyler Holloway MD [facility] [address] [facility] [place] [address] 11/11/2024 12:53:19 11/11/2024 13:32:52 Nausea, vomiting and diarrhea 3851721 R11.2 R19.7 resolved. Still on loperamide and ondansetro n p.r.n. keep appointmen t with Dr. Robin later this month. We will request ER records, labs and imaging results from [facility]. [id number] Kyler Holloway MD [facility] [address] [facility] [place] [address] 12/07/2024 08:51:21 12/07/2024 11:43:48 Onychomycosis 576165810 B35.1 Start terbinafin e 250 daily for 1 month. Return to clinic in [facility] [place] 26-27 days to have liver enzymes [...] 1 [employer] [place] Seamus Persaud [id number] Seamus Persaud 09/28/2024 1 [place] [id number] Seamus Persaud [id number] Seamus Persaud 09/28/2024 1 [place] [id number] Seamus Persaud [id number] Seamus Persaud 09/28/2024 [employer] Seamus Persaud 12/06/2024 1 [facility] [place] Seamus Persaud [id number] Seamus Persaud Notes Date Note Type Note [...] of them have worked. Kyler Holloway MD [address], [place], [address], [facility] 07/06/2024 20:44:06 08/25/2024 text/html Pt presents [...] to complain of insomnia Kyler Holloway MD [address], [place], [address], [facility] 08/25/2024 22:55:41 10/17/2024 text/html Pt presents for Hospitalization F/U. Was admitted on October 08, and D/C'd 2 days later on ThuOctober 10. F/U appt scheduled October 14 for today-October 17. Initial c/o stomach pain and vomiting. Admitted with N/V, found to be hyperglycemic and with TISHA. 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 Currently on Lantus 35 units nightly in addition to his mealtime insulin of Humalog and daily Jardiance. States nausea and vomiting have resolved and he is now eating and drinking well difficulty. Kyler Holloway MD [address], [place], [address], [facility] - [facility] & [place] 10/17/2024 12:58:46 11/11/2024 text/html Pt presents for F/U after being seen at [facility] ER on THU, 2 days earlier for vomiting and diarrhea. 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 Has a F/U appt scheduled with GI Dr. Robin in [place] on 11/29/24 at 12 noon. No change in meds other than some loperamide for the diarrhea and ondansetron for the nausea Kyler Holloway MD [address], [place], [address], [facility] - [facility] & [place] 11/11/2024 13:39:02 12/07/2024 text/html patient presents complaining about his feet. States he has thickened toenails, dry scaly feet Kyler Holloway MD [address], [place], [address], [facility] - [facility] & [place] 12/07/2024 20:30:32
--- OUTSIDE RECORDS SUMMARY | 2024-12-23 12:01 | XMS_ITS | Encounter Summary ---
Author Organization [facility] Address [address] [place] [address] Care Team Providers Care Sand Mixer Operator Name Role Phone Hilton Maria MD Unavailable Philip Khan MD Primary Care Provider + [phone] Reason for Referral * Consultation (Routine) - Authorized Specialty Diagnoses / Procedures Referred By Contac t Referred To Contact Endocrinology Diagnoses 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) Deonte Kraft MD [facility] [place] [address] Phone: tel: fax: [facility] [address] [place] [address] Phone: tel: fax: Referral ID Status Reason Start Date Expiration Date Visits Requested Visits Authorized [id number] Authorized Specialty Services Required 4 11/17/2025 1 1 Encounter Details Date Type Department Care Team (Late st Contact Info) Description 05/18/2024 [facility] [address] [place] [address] Deonte Kraft MD [address] [place] [address] Type II diabetes mellitus with nephropathy [...] Description 02/09/2025 7:30 AM EDT Hospital Encounter [facility] Operating Room [address] [place] [address] Berenice Silver MD [address] [place] [address] 02/09/2025 7:30 AM EDT - 02/09/2025 8:45 AM EDT Surgery [facility] Operating Room [address] [place] [address] Berenice Silver MD [address] [place] [address] left carpal tunnel revision release [48201 (CPT )] 02/22/2025 11:10 AM EDT Office Visit Terrie Hand [address] [place] [address] Berenice Silver MD [address] [address] 06/16/2025 8:20 AM EST Office Visit [facility] [address] [place] [address] Christine Deng, PRICILA [address] [address] Scheduled Procedures Name Priority [...] with renal manifestations, not stated as uncontrolled Carpal tunnel syndrome, left Carpal tunnel syndrome documented in this encounter Additional Health Concerns Assessment Noted Time A fall risk assessment has been complete d for the patient 04/01/2022 9:09 AM EDT A Body Mass Index follow-up plan has been documented for the patient 04/15/2024 1:06 PM EST documented as of this encounter Care Teams Sand Mixer Operator Relationship Specialty Start Date End Date Philip Khan MD [address] [place] [address] PCP - General Internal Medicine 04/01/22 Hilton Maria MD [address] [place] [address] Surgeon Neurosurgery 04/01/22 documented as of this encounter
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
--- OUTSIDE RECORDS SUMMARY | 2024-12-23 12:02 | XMS_ITS | Clinical Summary ---
[facility] Organization [facility] Address [address] [place] [address] Care Team Providers Care Business Services Assistant Name Role Phone Konstantin Dawn MD Primary Care Provider [phone] Allergies Active Allergy Reactions Criticality Noted Date [...] Activ e vitamin D (ERGOCALCIFEROL) 1.25 MG (23102 UT) capsule capsule 10/07/2021 Active Active Problems [...] 78 12/14/2015 10:18 AM EDT Temperature 36.3 C (97.3 F) 10/14/2021 1:30 PM EDT Respiratory Rate 18 11/23/2017 1:25 PM EDT Oxygen Saturation 99% 11/23/2017 1:25 PM EDT Inhaled Oxygen Concentration - - Weight 106 kg (234 lb) 10/14/2021 1:30 PM EDT Height 165.1 cm (5' 5 ) 10/14/2021 1:30 PM EDT Body Mass Index 38.94 10/14/2021 1:30 PM EDT Plan of Treatment Health Maintenance Due Date Last Done Comments ANNUAL PHYSICAL 1960 HEPATITIS C SCREENING 1960 TDAP/TD VACCINES (2 - Tdap) 08/08/2006 08/08/1996 COLOGUARD 12/21/2007 COLON CANCER SCREENING 5 YEAR SIGMOIDOSCOPY 12/21/2007 COLONOSCOPY 12/21/2007 COLORECTAL CANCER SCREENING 12/21/2007 CT COLONOGRAPHY 12/21/2007 FECAL OCCULT BLOOD TEST 12/21/2007 FIT Testing (1 year) 12/21/2007 Pneumococcal Vaccine 50+ (1 of 1 - PCV) 2012 ZOSTER VACCINE (1 of 2) 2012 LIPID PANEL 12/13/2016 12/14/2015 COVID-19 Vaccine (1 - 2023- season) 2024 INFLUENZA VACCINE 03/08/2025 04/19/2018 HEMOGLOBIN A1C Discontinued 12/14/2015 Procedures Procedure Name Priority Date/Time Associated Diagnosis [...] - 12/14/2015 8:09 PM EDT Performed at: [address] [place] [id number] Underwriting Manager: Concetta Juan MD, Phone: [phone] Tani Patterson MD LAB BLOOD ORDERABLES Final Resu lt [facility] [address] [place] [address], [place] [phone] [facility] [address] [place] [address], [place] [phone] * (ABNORMAL) Lipid panel (12/14/2015 1:47 PM EDT) [facility] Total Cholesterol 140 0 - 200 mg/dL [facility] Comment: Cholesterol Reference Ranges: Desirable < 200 mg/dL Borderline 200-239 mg/dL High Risk > 239 mg/dL Triglyceride Reference Ranges: Normal < 150 mg/dL Borderline 150-199 mg/dL High 200-499 mg/dL Very High > 499 mg/dL HDL Reference Ranges: Low < 40 mg/dL High > 59 mg/dL LDL Reference Ranges: Optimal < 100 mg/dL Near Optimal 100-129 mg/dL Borderline 130-159 mg/dL High 160-189 mg/dL Very High > 189 mg/dL Triglycerides 112 0 - 150 mg/dL [facility] HDL Cholesterol 34(L) 40 - 60 mg/dL [facility] VLDL Cholesterol 22.4 mg/dL [facility] LDL Cholesterol 84 0 - 100 mg/dL [facility] Blood specimen (specimen) 12/14/2015 1:47 PM EDT 12/14/2015 3:49 PM EDT Narrative [facility] - 12/14/2015 8:09 PM EDT Performed at: [address] [place] [id number] Underwriting Manager: Concetta Juan MD, Phone: [phone] us Tani Patterson MD LAB BLOOD ORDERABLES Final Resu lt [facility] ([facility]) [address] [place] [address], [place] [phone] [facility] [address] [place] [address], from Last 3 Months or Most Recently Relevant to Health Maintenance Care Teams Business Services Assistant Relationship Specialty Start Date End Date Konstantin Dawn MD [address] [place] [address] PCP - General Internal Medicine 08/13/21
--- OUTSIDE RECORDS SUMMARY | 2024-12-23 12:02 | XMS_ITS | Continuity of Care Document ---
Author Organization [facility] & [facility] Address [address] [facility] [address] [place] [address] Care Team Providers Care Sole Stainer Name Role Phone KYLER HOLLOWAY Primary Care Provider [phone] Assessment No assessment recorded. Plan of Treatment Reminders Order Date Submit Date Provider Last Modified By Organization Details Last Modified Time Details Appointments None recorded. Lab hepatic function panel, serum 2024 025 [email or web address] [facility], [address], [place], [address], 5 09:46:15 Referral None recorded. Procedures None recorded. Surgeries None recorded. Imaging None recorded. Medication Orders terbinafine HCl 250 mg tablet 2024 025 [facility], [address] [address] [address], [place], [id number], 5 10:34:03 Patient TargetsNo targets recorded. Patient InstructionsNo instructions recorded. Reason for Referral None Reported. Results Created Date Observation Date Name Description Value Unit Range Abnormal Flag Note LastModifiedBy Organization Detail LastModifiedTime 12/13/19 25 12/12/2024 imagi ng/di handyos tic resul t No observ ation record ed. [facility] [address], [place], [address], 12/12/2024 15:38:09 Result Notes None recorded. Problems Name Problem SNOMED Code Status Onset Date Resolution Date Notes Provider Name and Address Organization Details Recorded Time Chronic obstructive pulmonary disease 76568747 Active 2023 Nancy Eben nguyen, [place] - [facility] - [facility] & [place] 4 16:22:45 Chronic back pain 937288464 Active 2023 Nancy Treadwell null, [place] - [facility] - [facility] & [place] 4 16:22:55 Anxiety 24709085 Active 2023 Nancy Treadwell null, [place] - [facility] - [facility] & [place] 4 16:23:05 Coronary atheroscleros is 762516343 Active 2023 Nancy Treadwell [place], [place] - [facility] - [facility] & [place] 4 16:23:26 Essential hypertension 13492520 Active 2023 Nancy Treadwell [place], [place] - [facility] - [facility] & [place] 4 16:23:37 Neuropathy due to diabetes mellitus 255366480 Active 2023 Nancy Treadwell [place], [place] - [facility] - [facility] & [place] 4 16:23:50 Hyperlipidemi a 72069817 Active 2023 Nancy Eben nguyen, [place] - [facility] - [facility] & [place] 4 16:24:02 Gastroesophag eal reflux disease 928121225 Active 2023 Nancy Treadwell [place], [place] - [facility] - [facility] & [place] 4 16:24:39 Insomnia 249461674 Active 2023 Nancy Treadwell null, [place] - [facility] & [place] 4 16:24:48 Problem Notes None recorded. Procedures 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 Date Name Laterality Status Provider Name and Address Organization Details Recorded Time 2019 Colonoscopy completed Debra CLAYTON - [facility] - [place] & [place] 4 13:18:37 2019 esophagogastroduodenoscopy completed Juan CLAYTON - [facility] - [place] & [place] 4 13:18:55 2018 catheterization of left heart completed Lindsay Rothamer [place] - [facility] - [place] & [place] 4 13:26:09 2016 destruction of lesion of heart completed Lindsay Rothamer [place] - [facility] - [place] & [place] 4 13:25:03 2013 procedure on knee completed Lindsay Rothamer [place] - [facility] - [place] & [place] 4 13:19:36 2011 procedure on shoulder completed Lindsay Rothamer [place] - [facility] - [place] & [place] 4 13:20:13 2008 Cholecystectomy completed Lindsay Rothamer [place] - [facility] - [place] & [place] 4 13:19:14 Imaging Results None recorded. Procedure Notes None recorded. Medical Equipment None Reported. Allergies Allergen ID Allergen Name Allergen Category Reaction Reaction Severity Criticality Documentation Date Start Date Code Code System Note Provider Name and Address Organization Details Recorded Time 988132 naproxen medicatio n hives nausea vomiting Not available Not available Not available Not available 07/06/2023 7258 RxNorm criti calit y estradau Lindsay Rojoamer null, [place] - [facility] & [place] 4 09:50:08 464297 tramadol medicatio n hives nausea Not available Not available Not available 07/06/2023 91981 RxNorm criti apple katina doradou Lindsay Rojoamer null, [place] - [facility] & [place] 4 09:50:10 Medications Name Sig Start Date [...] Not Available Not Available FreeStyle Joselito 3 Ames active Not Available Not Available Not Available Vitals Date Recorded Body height Body mass index (BMI) Body weight Body temperature Oxygen saturation Oxygen saturation in Arterial blood by Pulse oximetry Heart rate Systolic And Diastolic Provider Name and Address Organization Details Last Updated DateTime 165.1 cm 35.8 kg/m2 74839.0 3 g 97.7 [degF] 96 % 96 % 78 /min 110/60 mm[Hg] Sera CLAYTON [facility] & [place] 09:16:34 Social History Question Answer Notes LastModified by [employer] Details LastModified Time Tobacco Smoking Status Former Smoker Sera nguyen, [place] [facility] [place] 01/14/2024 14:09:33 Do You Have An Advance Directive? No [email or web address] Information not available 01/14/2024 Are You Blind Or Do You Have Difficulty Seeing? Yes [email or web address] Information not available 01/14/2024 What Is Your Level Of Caffeine Consumption? Moderate [email or web address] Information not available 07/06/2023 What Was The Date Of Your Most Recent Tobacco Screening? 11/24/2023 [email or web address] Information not available 01/14/2024 Are You Passively Exposed To Smoke? No [email or web address] Information not available 01/14/2024 How Much Tobacco Do You Smoke? No Information not available 01/14/2024 How Many Years Have You Smoked Tobacco? 4 [email or web address] Information not available 01/14/2024 Sex: Unknown Functional Status Question Answer Note LastModified by [employer] Details LastModified Time Do you use any illicit or recreational drugs? No [email or web address] Information not available 01/14/2024 What is your level of alcohol consumption? Occasional Information not available 07/06/2023 Do you or have you ever used smokeless tobacco? Never used smokeless tobacco [email or web address] Information not available 01/14/2024 What is your exercise level? Occasional [email or web address] Information not available 01/14/2024 Mental Status Question Answer Note LastModified by Organization D etails LastModified Time Do you feel stressed (tense, restless, nervous, or anxious, or unable to sleep at night)? [id number] [email or web address] Information not available 01/14/2024 Family History Relationship Description Onset Age of this Age Resolved Age Notes LastModified by Organization Details LastModified Time Mother Coronary arterioscler osis [email or web address] Not available 12/07 08:51:42 Mother Hypertensive disorder [email or web address] Not available 2023 18:42:21 Mother Myocardial infarction [email or web address] Not available 09/16 18:42:29 Mother Family member [email or web address] Not available 12/07 08:51:42 Mother Heart disease [email or web address] Not available 07/28 08:00:31 Father Diabetes mellitus [email or web address] Not available 12/07 08:51:42 Father Hypertensive disorder [email or web address] Not available 2023 18:42:47 Father Cerebrovascu lar accident [email or web address] Not available 04/2024 18:43:01 Father Family member [email or web address] Not available 12/07 08:51:42 Sister Myocardial infarction [email or web address] Not available 09/16 18:43:06 Sister Malignant neoplastic disease x2 [email or web address] Not available 12/07 08:51:42 Sister Heart disease Not available 07/28 08:00:31 Brother Cerebrovascu lar accident [email or web address] Not available 04/2024 18:43:15 Brother Hypertensive disorder [email or web address] Not available 2023 18:43:19 Brother Diabetes mellitus [email or web address] Not available 12/07 08:51:42 Notes:4 brothers, 6 sisters, 1 son, 3 daughters, Medical History Condition Response Diabetes Y Coronary Artery Disease Y Other Y Obesity Y Vision or Eye Problems Y Arthritis Y Congestive Heart Failure (CHF) Y Cancer Y Back Problems Y Stroke Y COPD Y Osteoporosis/Osteopenia Y Constipation Y Reflux/GERD Y High Cholesterol Y Heart Attack (ID) Y Spine Problems Y Headaches Y Hypertension Y Obstructive Sleep Apnea Y Kidney Disease Y Immunizations Vaccine Type Date Status Note Provider Nam e and Address Organization Details Recorded Time COVID-19, mRNA, LNP-S, PF, 100 mcg/0.5mL dose or 50 mcg/0.25mL dose completed Nancy nguyen, [place] - [facility] - [place] & [place] 07/06/2023 12:46:08 COVID-19, mRNA, LNP-S, PF, 100 mcg/0.5mL dose or 50 mcg/0.25mL dose 1 completed Nancy Treadwell [place], [place] - [facility] - [place] & [place] 07/06/2023 12:46:08 Influenza, split virus, trivalent, PF 8 completed Nancy nguyen, [place] - [facility] - [place] & [place] 07/06/2023 12:46:08 Td (adult), 2 Lf tetanus toxoid, preservative free, adsorbed 7 completed Nancybarbie nguyen, [place] - [facility] - [place] & [place] 07/06/2023 12:46:08 Past Encounters Encounter ID Performer Location Encounter Start Date Encounter Closed Date Diagnosis/Indication Diagnosis SNOMED-CT Code Diagnosis ICD10 Code Diagnosis Note [id number] Kyler Holloway MD [facility] [address] [facility] [address]- [place] [address] 11/11/2024 12:53:19 11/11/2024 13:32:52 Nausea, vomiting and diarrhea 6393850 R11.2 R19.7 resolved. Still on loperamide and ondansetro n p.r.n. keep appointmen t with Dr. Robin later this month. We will request ER records, labs and imaging results from [facility]. [id number] Kyler Holloway MD [facility] [address] [facility] [place] [place] [address] 12/07/2024 08:51:21 12/07/2024 11:43:48 Onychomycosis 423957086 B35.1 Start terbinafin e 250 daily for 1 month. Return to clinic in [facility] 26-27 days to have liver enzymes [...] Dietrich Member ID Guarantor Name 12/07/2024 1 [facility] (MEDICAID REPLACEMENT - HMO) [id number] Seamus Persaud [id number] Seamus Persaud Notes Date Note Type Note Provider Name and Address Organization Details Recorded Time 12/07/2024 text/html patient presents complaining about his feet. States he has thickened toenails, dry scaly feet Kyler Holloway MD [address], [place], [address], [facility] - [facility] - [place] & [place] 12/07/2024 20:30:32
[2024-12-23 12:18] VITALS: BP 92/57; PULSE 72; RESP 16; TEMP 36.8; O2SAT 95
== END 2024-12-23 12:24 | disposition home or self-care (01) ==
PROVIDERS: Emergency Provider Student in an Organized Health Care Education/Training Program; PCP Family Medicine
DX: M54.31 Sciatica, right side (principal); E86.0 Dehydration; F41.9 Anxiety disorder, unspecified; E11.9 Type 2 diabetes mellitus without complications; Z87.891 Personal history of nicotine dependence
CPT/HCPCS: 99283

== ENCOUNTER 2025-03-08 21:53 | Emergency (ER) | payer OTHER, SELFPAY ==
--- OUTSIDE RECORDS SUMMARY | 2025-01-27 10:15 | XMS_ITS | Encounter Summary ---
Author Organization Healthcare Address [address] [place] [address] Care Team Providers Care Glass Technician Name Role Phone Hilton Maria MD Unavailable Philip Khan MD Primary Care Provider + [phone] Encounter Details Date Type Department Care Team (Latest Contact Info) Description 01/27/2025 10:15 AM EDT Pre-Admission Testing [facility] [address] [place] [address] Preop examination (Primary Dx) Anesthesia Record Procedure Summary Procedure Name Responsible Anesthesiologist Anesthesia Start Time Anesthesia Stop Time left carpal tunnel revision release with left median nerve wrap (Left: Wrist) Jaziel Nieto MD 02/09/25 1145 02/09/25 1358 Events Date Time Event Comment 02/09/2025 0706 1145 In Room 1145 An Start The patient was reevaluated immediately before sedation and remains eligible for anesthesia plan. 1145 An Start Data 1149 An Induction The patient was reevaluated immediately before moderate or deep sedation use and before anesthesia induction. 1152 An Intubation 1153 Anesthesia Ready 1201 An Tourn Inflated 1201 Proc Start 1216 An Tourn Deflated 1217 An Tourn Inflated 1335 An Tourn Deflated 1348 Proc Fin 1352 An Extubation 1354 an stop data 1355 Out of Room 1358 Handoff to Receiving I compl eted my handoff to the receiving clinician during which we: 1. Identified the patient 2. Identified the responsible provider 3. Reviewed the pertinent medical history 4. Discussed the surgical course 5. Reviewed intra-op anesthesia management and issues during anesthesia 6. Set expectations for post-procedure period 7. Allowed opportunity for questions and acknowledgement of understanding. 1358 An Stop Meds * Agents No agents on file. * Blood No blood administrations on file. Lines, Drains, and Airways Type Details Placement Removal Wound 02/09/25; 1215; N; Y es; Surgical; Wrist; Right 02/09/25 1215 by Celsa Espino RN Peripheral IV Placement Date: 09/30; Placement Time: 06; Catheter Size: 20 G; Orientation: Posterior, Right; Location: Hand; Site Prep: Chlorhexidine ; Inserted by: RAJNI SIMON; Insertion Attempts: 1; Patient Tolerance: Tolerated well; Removal Date: 02/09/25; Removal Time: 154; Removal Reason: Discharge 02/09/25 06 by Rebekah Calhoun RN 02/09/25 154 by Pavel Mead Supraglottic Airway Placement Date: 09/30; Placement Time: 115 (created via procedure documentation); Mask Ventilation: 1; Removal Date: 02/09/25; Removal Time: 1352 02/09/25 1152 by Ginette Mejia CRNA, DNP 02/09/25 1352 by Ginette Mejia CRNA, DNP documented in this encounter Social History Tobacco Use Types Packs/Day Years Used Date Smoking Tobacco: Former Cigarettes 1.5 30 0 06/08/1988 - 2018 Passive Smoke Exposure: Past Smokeless Tobacco: Never Alcohol Use Standard Drinks/Week Comments Yes 0 (1 standard drink = 0.6 oz pur e alcohol) 1 drink per month PHQ-2 Answer Date Recorded Patient Health Questionnaire-2 Score 0 09/22/2024 Sex and Gender Information Value Date Recorded Sex Assigned at Male 02/09/2025 6:11 AM EDT Legal Sex Male 8:08 PM EDT Gender Identity Male 02/09/2025 6:11 AM EDT Sexual Orientation Not on file documented as of this encounter Last Filed Vital Signs Vital Sign Reading Time Taken Comments Blood Pressure 92/56 01/27/2025 10:11 AM EDT Pulse 57 01/27/2025 10:09 AM EDT Temperature 36.7 C (98 F) 01/27/2025 10:09 AM EDT Respiratory Rate 16 01/27/2025 10:09 AM EDT Oxygen Saturation 98% 01/27/2025 10:09 AM EDT Inhaled Oxygen Concentration - - Weight 99.9 kg (220 lb 3.8 oz) 01/27/2025 10:09 AM EDT Height - - Body Mass Index 35.55 12/14/2024 10:02 AM EDT documented in this encounter Miscellaneous Notes * PAT Evaluation Note - Lacey Coronel PA - 01/27/2025 10:15 AM EDT Images from the original note were not included. HPI Seamus Persaud is a 64 y.o. male who presents with Pre-op Diagnosis * Carpal tunnel syndrome, left [G56.02] now scheduled for left carpal tunnel revision release (Left)with Berenice Silver MD on 02/09/2025 at [facility] Past Medical History[1] Family History[2] Social History[3] SURGICAL HISTORY: 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[4] Allergies[5] MEDICATIONS: Current Medications[6] ROS Anesthesia: Date of last anesthetic: Most recent anesthesia ~ December 2023 for carpal tunnel history of previous anesthesia and obstructive sleep apnea (does not use c pap). Does not have a history of anesthetic complications, a history awareness of surgery under anesthesia, a history of delayed emergence, malignant hyperthermia, PONV and a history of prolonged emergence. Cardiovascular: atrial fibrillation, CAD, hyperlipidemia and past PA (2017). Does not have angina, CHF, dysrhythmias or pacemaker. hypertension (somtimes low): is well controlled. Exercise tolerance is 2 flights of stairs. Does not have chest pain. Cardio additional comments: Denies any active current cardiac complaints.. Respiratory: no asthma: no COPD: Has not had an upper respiratory infection in last 30 days. Has not had bronchitis in the last 30 days, pneumonia in the last 30 days or COVID in the last 30 days. Respiratory ROS additional comments: + NSCLC in 2019 s/p chemo/xrt HEENT: Does not have difficulty swallowing.Does not have temporomandibular joint syndrome. Neurological: Does not have headaches (migraines and tension). no seizures: Did not have a cerebrovascular accident.TIA (2016). Musculoskeletal: arthritis (back, neck, knees, hips). cervical spine limited mobility. Musc/Skel/Integ additional comments: + left carpal tunnel syndrome + C2-C3 cervical stenosis + C5-C6 osteophyte formation and radiculopathy Gastrointestinal: GERD: well controlled.Does not have cirrhosis or hepatitis. GI/ additional comments: + recurrent pancreatitis- last episode 8 months ago in hospital at [facility] + cyst on liver Genitourinary: chronic renal disease (stage 3): CRIDoes not have recurrent UTIs, renal calculi or renal disease. Hematological/Lymphatic: History of no DVT. History of no pulmonary embolism. Not in a hypercoagulable state. history of chemotherapy history of radiation Does not have HIV, MRSA or tuberculosis. Hem/Lymph ROS additional comments: + pt on Plavix + completed chemo and radiation for lung CA in 2019 Endocrine/Metabolic: diabetes mellitus type 2. last A1C was 7.0 Does not have thyroid disorder. 01/27/2025 01/31/2025 Cardiac Clearance: 07/26/21 - stress test: NSR. Arrhythmias: none. 11/09/2019 - LHC: mild eqk-jpaf-dkzvkwza coronary artery disease. Preserved ejection fraction. Mildly elevated LVEDP.Medical management 11/27/2016 EP Ablation for afib [facility]: Can't see records Lab Results Component Value Date WBC 5.75 04/01/2022 HGB 14.0 04/01/2022 HCT 41.9 04/01/2022 MCV 97 04/01/2022 PLT 277 04/01/2022 Lab Results Component Value Date GLUCOSE 163 (H) 04/01/2022 BUN 32 (H) 04/01/2022 CREATININE 1.71 (H) 04/01/2022 BCR 19 04/01/2022 NA 135 (L) 04/01/2022 K 4.9 (H) 04/01/2022 CL 99 04/01/2022 CO2 24 04/01/2022 CA 9.7 10/27/2019 ALBUMIN 4.9 04/01/2022 ALKPHOS 76 04/01/2022 BILITOT 0.8 04/01/2022 Lab Results Component Value Date HGBA1C 6.9 (H) 04/01/2022 Lab Results Component Value Date INR 1.0 04/01/2022 INR 1.0 10/27/2019 INR 1.0 07/21/2018 Visit Vitals BP 92/56 Pulse 57 Temp 36.7 ??C (98 ??F) (Temporal) Resp 16 Wt 99.9 kg (220 lb 3.8 oz) SpO2 98% BMI 35.55 kg/m?? Smoking Status Former BSA 2.16 m?? Physical Exam Airway Mallampati: II Mouth opening: normal TM distance: >3 FB Neck ROM: full Cardiovascular Rhythm: regular Rate: normal Dental (+) edentulous Pulmonary Breath sounds clear to auscultation Neurological Oriented: normal to time, normal to person and normal to place Skin Musculoskeletal Extremities Anesthesia Plan ASA 3 Anesthesia technique(s) discussed with the patient/family: general Comment: Discussed with Dr. Enriquez. I also messaged with Dr Silver and she would like to make a decision after he is seen by cardiology on 01/31/2025. 02/01/2025: Pt saw cardiology, Gonzalo Bourne PA-C, on 01/31. He will hold his plavix for 5 days. LUIS EDUARDO Montero [1] Past Medical History: Diagnosis Date Chronic [...] 2016. Unspecified abdominal pain Stomach pain [2] Family History Problem Relation Name Age of Onset Heart attack Mother Diabetes Father Cancer Sister Cancer Sister Diabetes Brother Cancer Other Conversions - Other Other Chronic pain Conversions - Other Other Coronary arteriosclerosis Diabetes Other Cardiac disorder Other Stroke Other Depression Other Hypertension Other Lung disease Other Kidney failure Other Malig Hyperthermia Neg Hx Anesthesia problems Neg Hx [3] Social History Tobacco Use Smoking status: Former Current packs/day: 0.00 Average packs/day: 1.5 packs/day for 30.0 years (45.0 ttl pk-yrs) Types: Cigarettes Start date: 06/08/1988 Quit date: 2019 Years since quittin.6 Passive exposure: Past Smokeless tobacco: Never Vaping Use Vaping status: Never Used Substance Use Topics Alcohol use: Yes Comment: 1 drink per month Drug use: Yes Types: Marijuana Comment: smokes marijuana 1 joint every 2 weeks [4] Past 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: Procedure Laterality Date CHOLECYSTECTOMY N/A Cholecystectomy from [employer] HAND SURGERY Left [id number] KNEE SURGERY Right arthroscopy ROTATOR CUFF REPAIR Left x2 [5] Allergies Allergen Reactions Naproxen Hives Other reaction(s): hives Tramadol Hives and Nausea [6] Current Outpatient Medications: albuterol, Inhale 2 puffs as needed. baclofen, Take 1 tablet by mouth 3 times a day. clopidogrel, Take 1 tablet by mouth 1 (one) time each day at the same time. ergocalciferol, Take 1 capsule by mouth 1 time per week. famotidine, daily. gabapentin, Take 1 tablet by mouth 3 times a day. GNP Lidocaine Pain Relief, APPLY 1 PATCH TOPICALLY TO MOST PAINFUL AREA AND LEAVE ON FOR 12 HOURS THEN REMOVE AND LEAVE OFF FOR 12 HOURS HumaLOG KWIKPEN, After checking blood sugar, Inject as follows prior to meals:For BS less than 150,NO insulin For BS between 151-200, inject 2 unitsFor BS between 201-250, inject 4 unitsFor BS between 251-300, inject 6 unitsFor BS between 301-350, inject 8 unitsFor BS between 351-400, inject 10 unitsFor BS between 401-450, inject 12 unitsFor BS between 451-500, inject 15 unitsFor BS over 500, inject 20 units and recheck in 30-60 minMax daily dose-50 units isosorbide mononitrate ER, Take 1 tablet by mouth daily. Jardiance, Take 1 tablet by mouth daily. Lantus SoloStar, 30 Units nightly. lisinopril, 1 (one) time each day at the same time. loperamide, TAKE 2 CAPSULES BY MOUTH now THEN TAKE 1 CAPSULE BY MOUTH AFTER each loose stool max daily DOSE 16 MG metoprolol tartrate, Take 1 tablet by mouth every 12 hours. rosuvastatin, daily. spironolactone, Take 1 tablet by mouth daily. tiZANidine, Take 1 tablet by mouth 3 times a day as needed. torsemide, Take 0.5 tablets by mouth daily. zolpidem, Take 1 tablet by mouth at night as needed for sleep. B-D ULTRAFINE III SHORT PEN, benzonatate, FreeStyle Joselito 3 Sensor, USE DIRECTED EVERY 14 DAYS isosorbide mononitrate ER, Take 1 tablet (30 mg) by mouth 1 (one) time each day. Do not crush or chew. (Patient not taking: Reported on 01/27/2025) Januvia, lidocaine, OneTouch Ultra, oxyCODONE, oxyCODONE-acetaminophen, Take 1 tablet by mouth if needed. (Patient not taking: Reported on 01/27/2025) pantoprazole, ranolazine, Take 1,000 mg by mouth 2 (two) times a day. (Patient not taking: Reported on 04/15/2024) Spiriva HandiHaler, Place 1 capsule (18 mcg) into inhaler and inhale 1 (one) time each day. (Patient not taking: Reported on 01/27/2025) terbinafine, Take 1 tablet every day by oral route as directed, for toenail fungus. (Patient not taking: Reported on 01/27/2025) * Preprocedure Instructions - Lacey Coronel PA - 01/27/2025 10:15 AM EDT Home Medication Instructions Current Medications Medication Instructions baclofen (Lioresal) 10 MG tablet Take night before surgery clopidogrel (Plavix) 75 MG tablet Hold 5 days before surgery ergocalciferol (Vitamin D-2) 1.25 MG (44987 UT) capsule Hold day of surgery famotidine (Pepcid) 20 MG tablet Take morning of surgery gabapentin (Neurontin) 800 MG tablet Take morning of surgery GNP Lidocaine Pain Relief 4 % patch Hold day of surgery HumaLOG KWIKPEN 100 UNIT/ML injection pen Hold day of surgery isosorbide mononitrate ER (Imdur) 60 MG 24 hr tablet Take morning of surgery Jardiance 25 MG Hold 72 hours before surgery Lantus SoloStar 100 UNIT/ML injection pen Take 1/2 usual dose of your insulin night before surgery lisinopril 5 MG tablet Hold day of surgery loperamide (Imodium) 2 MG capsule Take as needed metoprolol tartrate (Lopressor) 25 MG tablet Take morning of surgery rosuvastatin (Crestor) 40 MG tablet Take morning of surgery spironolactone (Aldactone) 50 MG tablet Hold day of surgery tiZANidine (Zanaflex) 4 MG tablet Take night before surgery torsemide (Demadex) 100 MG tablet Hold day of surgery zolpidem (Ambien) 10 MG tablet Take as needed night before surgery General Preoperative Instructions You will be called the business day before surgery with your arrival time No food after midnight the night before surgery. You can drink clear liquids up to 2 hours prior to arrival unless instructed by your surgeon otherwise. Please do not try to get all your hydration in 2 hours prior to arrival. Start the day before surgery drinking more than you usually would. After midnight, you can have clear liquids only (water,apple juice, Gatorade) up to 2 hours prior to arrival. No coffee or tea. No alcohol or smoking prior to surgery Arrive on time to avoid delays Parking/Registration procedure explained You MUST have a responsible adult available for transport to and from hospital Visitation policy for the day of surgery reviewed Bring insurance card, photo ID, along with power of contracts attorney, guardianship or advanced directives if applicable Do not bring money, jewelry or other valuables Hibiclens bathing instructions reviewed if applicable Notify surgeon of fever, illness, any changes or if you decide not to have surgery Diabetes Instructions (If applicable) Take diabetes medication as instructed You may have up to 4 ounces of apple juice 2 hours prior to arrival for surgery for low glucose documented in this encounter Plan of Treatment Upcoming Encounters Date Type Department Care Team (Late st Contact Info) Description 03/24/2025 1:50 PM EDT Office Visit [facility] [address] [place] [id number] Stephanie Torres PA [address] [place] [address] 06/16/2025 8:20 AM EST Office Visit [facility] [address] [place] [address] Christine Deng, MANAGER FAMILY [address] [facility] [address] [place] [address] documented as of this encounter Goals Goal Patient Goal Type Associated Problems Recent Progress Patient-Stated? Author Autogenerat ed Goal Care Plan Autogenerated Problem No Dorita Castano MD documented as of this encounter Procedures Procedure Name Priority Date/Time Associated Diagnosis Comments ECG ADULT Routine 01/27/2025 10:25 AM EDT Preop examination documented in this encounter Results * ECG Adult (Now - Performed in your clinic) (01/27/2025 10:25 AM EDT) EKG DIAGNOSIS CLASS Borderline Abnormal MUSE ECG Ventricular Rate 53 BPM MUSE ECG Atrial Rate 53 BPM MUSE ECG ME Interval 170 ms MUSE ECG QRSD Interval 80 ms MUSE ECG QT Interval 448 ms MUSE ECG QTC Interval 420 ms MUSE ECG P [place] 33 degrees MUSE ECG R [place] 12 degrees MUSE ECG T Wave [place] 44 degrees MUSE ECG Diagnosis Sinus bradycardia MUSE ECG Diagnosis Low voltage QRS MUSE ECG Diagnosis MUSE ECG Diagnosis MUSE ECG Diagnosis Confirmed by Kervin Mejia ([id number]) on 01/27/2025 4:24:37 PM MUSE ECG 01/27/2025 10:2 5 AM EDT 01/27/2025 4:24 PM EDT us Lacey HOFF ECG ORDERABLES Final Result MUSE ECG documented in this encounter Visit Diagnoses Diagnosis Preop examination- Primary Unspecified pre-operative examination documented in this encounter Additional Health Concerns Active Problems Noted Date Diagnosed Date Autogenerated Problem 02/10/2025 Assessment Noted Time A fall risk assessment has been complete d for the patient 12/14/2024 10:01 AM EDT A Body Mass Index follow-up plan has been documented for the patient 12/15/2024 10:44 AM EDT documented as of this encounter Care Teams Glass Technician Relationship Specialty Start Date End Date Philip Khan MD [address] [place] [address] PCP - General Internal Medicine 04/01/22 Hilton Maria MD [address] [place] [address] Surgeon Neurosurgery 04/01/22 documented as of this encounter
--- OUTSIDE RECORDS SUMMARY | 2025-02-09 06:03 | XMS_ITS | Encounter Summary ---
Author Organization Healthcare Address [address] [place] [address] Care Team Providers Care Linter Tender Name Role Phone Hilton Maria MD Unavailable Philip Khan MD Primary Care Provider + [phone] Reason for Visit * Auth/Cert (Routine) Specialty Diagnoses / Procedures Referred By Contac t Referred To Contact Diagnoses Carpal tunnel syndrome, left Carpal tunnel syndrome, left [G56.02] Procedures DE REVISE MEDIAN N/CARPAL TUNNEL SURG left carpal tunnel revision release Berenice Silver MD [address] [place] [phone] Phone: tel: fax: [facility] S Operating [address] [place] [address] Phone: tel: Referral ID Status Reason Start Date Expiration Date Visits Re quested Visits Authorized [id number] 1 1 Encounter Details Date Type Department Care Team (Late st Contact Info) Description 02/09/2025 6:03 AM EDT - 02/09/2025 4:00 PM EDT Hospital Encounter [facility] [address] [place] [address] Berenice Silver MD [address] [place] [phone] Discharge Disposition: Home or Self Care Social [...] Sign Reading Time Taken Comments Blood Pressure 120/58 02/09/2025 3:00 PM EDT Pulse 59 02/09/2025 3:05 PM EDT Temperature 36.3 C (97.4 F) 02/09/2025 3:05 PM EDT Respiratory Rate 14 02/09/2025 3:05 PM EDT Oxygen Saturation 94% 02/09/2025 3:05 PM EDT Inhaled Oxygen Concentration - - Weight 101 kg (222 lb 10.6 oz) 02/09/2025 6:15 A M EDT Height 167.6 cm (5' 6 ) 02/09/2025 6:15 AM EDT Body Mass Index 35.94 02/09/2025 6:15 AM EDT documented in this encounter Functional Status * Calculated C-SSRS Risk Score (Lifetime/Recent) Answer Date of Assessment Author No Risk Indicated 02/09/2025 6:05 AM EDT Rebekah Calhoun RN * Question Answer Date of Assessment Author 1. Wish to be (Past 1 Month) No 025 6:05 AM EDT Rebekah Calhoun RN 2. Non-Specific Active Suici pieter Thoughts (Past 1 Month) No 02/09/2025 6:05 AM EDT Reny Calhoun RN 6. Suicidal Behavior (Lifetime) No 6:05 AM EDT Rebekah Calhoun RN documented as of this encounter Medications at Time of Discharge albuterol 108 (90 Base) MCG/ACT inhaler Inhale 2 puffs as needed. 03/27/2017 baclofen (Lioresal) 10 MG tablet Take 1 tablet by mouth 3 times a day. 12/02/2024 clopidogrel (Plavix) 75 MG tabletIndications :may restart 02/10 Take 1 tablet by mouth 1 (one) time each day at the same time. 07/17/2016 Continuous Glucose Sensor (FreeStyle Joselito 3 Sensor) [facility] [place] DIRECTED EVERY 14 DAYS 11/07/2024 ergocalciferol (Vitamin D-2) 1.25 MG (30698 UT) capsule Take 1 capsule by mouth 1 time per week. 11/22/2018 famotidine (Pepcid) 20 MG tablet daily. 05/14/2022 gabapentin (Neurontin) 800 MG tablet Take 1 tablet by mouth 3 times a day. 02/23/2018 GNP Lidocaine Pain Relief 4 % patch APPLY 1 PATCH TOPICALLY TO MOST PAINFUL AREA AND LEAVE ON FOR 12 HOURS THEN REMOVE AND LEAVE OFF FOR 12 HOURS 11/23/2024 HumaLOG KWIKPEN 100 UNIT/ML injection pen After [...] each day. Do not crush or chew. isosorbide mononitrate ER (Imdur) 60 MG 24 hr tablet Take 1 tablet by mouth daily. 11/14/2024 Jardiance 25 MG Take 1 tablet by mouth daily. 03/05/2022 Lantus SoloStar 100 UNIT/ML injection pen 30 Units nightly. lidocaine (Lidoderm) 5 % patch 10/13/2022 lisinopril 5 MG tablet 1 (one) time each day at the same time. 09/12/2021 loperamide (Imodium) 2 MG capsule TAKE 2 CAPSULES BY MOUTH now THEN TAKE 1 CAPSULE BY MOUTH AFTER each loose stool max daily DOSE 16 MG metoprolol tartrate (Lopressor) 25 MG tablet Take 1 tablet by mouth every 12 hours. 09/12/2021 OneTouch Ultra test strip 03/07/2022 pantoprazole (ProtoNix) 20 MG EC tablet 02/02/2023 rosuvastatin (Crestor) 40 MG tablet daily. 02/23/2023 spironolactone (Aldactone) 50 MG tablet Take 1 tablet by mouth daily. 03/05/2022 terbinafine (LamISIL) 250 MG tablet Take 1 tablet every day by oral route as directed, for toenail fungus. 12/07/2024 tiZANidine (Zanaflex) 4 MG tablet Take 1 tablet by mouth 3 times a day as needed. 12/02/2024 torsemide (Demadex) 100 MG tablet Take 0.5 tablets by mouth daily. 03/05/2022 zolpidem (Ambien) 10 MG tablet Take 1 tablet by mouth at night as needed for sleep. 12/02/2024 oxyCODONE (Roxicodone) 5 MG immediate release tablet Take 1 tablet by mouth every 6 hours as needed for severe pain. 10 tablet 02/09/2025 documented as of this encounter Miscellaneous Notes * Pavel Garcia S - 02/09/2025 2:49 PM EDT Images from the original note were not included. [id number] Preventing a Surgical Site Infection A risk of any surgery is an infection at the surgical site. The surgical site is a cut the surgeon makes in the skin to do the surgery. Surgical site infections can range in type. It may be a minor skin infection. Or it may be severe and include tissue under the skin or other organs. In some cases,a severe infection can cause . The information below tells you: ? About surgical site infections. ? What hospitals do to prevent them. ? How they?re treated if they do occur. ? What you can do to prevent an infection. Hand washing reduces the risk of infection. What causes a surgical site infection? Germs are everywhere. They?re on your skin, in the air, and on things you touch. Many germs are good. Some are harmful. Surgical site infections occur when harmful germs enter your body through the incision in your skin. Some infections are caused by germs that are in the air or on objects. But most are caused by germs found on and in your own body. Who is at risk for a surgical site infection? Anyone can have a surgical site infection. Your risk is higher if you: ? Are an older adult. ? Have a weak immune system. ? Have other health conditions such as diabetes. ? Take certain medicines, such as steroids. ? Are a smoker. ? Have certain types of surgery, such as abdominal surgery. ? Have poor nutrition. ? Are very overweight. ? Have a surgery that lasts longer than 2 hours. What are the symptoms of a surgical site infection? An infection often shows up as skin redness, pain, and swelling around the incision that gets worse. Later, a cloudy or greenish-yellow fluid may come from the incision. The fluid may smell bad. The incision may pull apart or open up. You are likely to have a fever and may feel very ill. Symptoms can appear at any time. They may happen from hours to weeks after surgery. Implants such as an artificial knee or hip can become infected at any time after the surgery. How is a surgical site infection treated? ? A surgical site infection is treated with antibiotics. The type of medicine you get will depend on what may be causing the infection. Most serious wound infections need wound care. In some cases, surgery may be needed on the infected wound. ? An infected skin wound may be reopened and cleaned. A deep wound may need to be packed with gauze. The gauze is changed often until the wound starts to heal from the inside out. Your health care provider will decide the best way to treat your infection. ? If an infection occurs where an implant is placed, the implant may be removed. ? If you have an infection deeper in your body, you may need surgery to treat it. What hospitals do to prevent surgical site infections Many hospitals take these steps to help prevent surgical site infections: ? Handwashing. Before the surgery, your surgeon and all surgery staff scrub their hands and arms with an antiseptic soap. ? Clean skin. The site where your incision is made is carefully cleaned with an antiseptic solution. ? Sterile clothing and drapes. The surgical team wears medical uniforms. These are known as scrub suits. They wear long-sleeved surgical gowns, masks, caps, shoe covers, and sterile gloves. Your bodyis fully covered with a large sterile sheet (sterile drape). There is an opening in the sheet wherethe incision is made. ? Clean air. Operating rooms have special air filters. They use positive pressure airflow to prevent unfiltered air from entering the room. ? Careful use of antibiotics. Antibiotics are given no more than 60 minutes before the incision is made. They are generally stopped within 24 hours after surgery. This depends on the type of surgery.This helps kill germs but prevents problems that can occur when antibiotics are taken longer. ? Controlled blood sugar levels. Your blood sugar level may rise. This can be because of the stressof the surgery. Your blood sugar level is watched closely to make sure it stays within a normal range. High blood sugar delays wound healing. This increases the risk of infection. ? Controlled body temperature. A tdyif-iyqc-hkdsdj temperature during or after surgery prevents oxygen from reaching the wound. This makes it harder for your body to fight infection. Hospitals may warm I.V. fluids, and provide warm-air blankets. Your temperature is watched throughout the surgery. ? Safe hair removal. Any hair that must be removed is clipped right before the incision, not shavedwith a razor. This prevents tiny nicks and cuts where germs can enter. ? Wound care. After surgery, a closed wound is covered with a sterile dressing for 1 to 2 days. Open wounds are packed with sterile gauze and covered with a sterile dressing. What you can do to prevent a surgical site infection ? Ask questions. Learn what your hospital is doing to prevent infection. ? If instructed, shower or bathe with plain soap the night before and the day of your surgery. Follow all instructions you're given. You may be asked to use a special cleanser that you don?t rinse off. ? If you smoke, stop as long as possible before and after the surgery. Ask your provider about waysto quit. ? Take antibiotics only when your provider tells you to. Using antibiotics when they?re not needed can create germs that are harder to kill. Finish the entire prescription of your antibiotics even ifyou feel better. ? Ask health care workers to clean their hands with plain soap and water or with an alcohol-based hand cocoa bean roaster helper before and after caring for you. Don?t be afraid to remind them. ? After surgery, eat healthy foods. Care for your incision as directed by your health care team. When to contact your doctor Contact your provider or seek medical care right away if: ? The pain at the surgical site gets worse. ? A red streak, worse redness, or puffiness appears near the incision. ? Yellowish, cloudy, or bad-smelling fluid leaks from the incision. ? Your stitches dissolve before the wound heals. ? You have a fever of 100.4?? F ( 38??C ) or higher, or as advised by your provider. ? You have a tired feeling that doesn?t go away. Last Reviewed Date: 2024 00:00:00 ?? [id number] [employer]. All rights reserved. This information is not intended as a substitute for professional medical care. Always follow your healthcare professional's instructions. * [facility] - Pavel Mead - 02/09/2025 2:49 PM EDT Images from the original note were not included. [id number] Discharge Instructions: After Your Surgery You?ve just had surgery. During surgery, you were given medicine called anesthesia to keep you relaxed and free of pain. After surgery, you may have some pain or nausea. This is common. Here are sometips for feeling better and getting well after surgery. Going home Your healthcare provider will show you how to take care of yourself when you go home. They'll also answer your questions. Have an adult family member or friend drive you home. For the first 24 hours after your surgery: ? Don't drive or use heavy equipment. ? Don't make important decisions or sign legal papers. ? Take medicines as directed. ? Don't drink alcohol. ? Have someone stay with you, if needed. They can watch for problems and help keep you safe. Be sure to go to all follow-up visits with your healthcare provider. And rest after your surgery for as long as your provider tells you to. Coping with pain If you have pain after surgery, pain medicine will help you feel better. Take it as directed, before pain becomes severe. Also, ask your healthcare provider or pharmacist about other ways to control pain. This might be with heat, ice, or relaxation. And follow any other instructions your surgeon ornurse gives you. Stay on schedule with your medicine. Tips for taking pain medicine To get the best relief possible, remember these points: ? Pain medicines can upset your stomach. Taking them with a little food may help. ? Most pain relievers taken by mouth need at least 20 to 30 minutes to start to work. ? Don't wait till your pain becomes severe before you take your medicine. Try to time your medicineso that you can take it before starting an activity. This might be before you get dressed, go for awalk, or sit down for dinner. ? Constipation is a common side effect of some pain medicines. Call your healthcare provider beforetaking any medicines, such as laxatives or stool softeners, to help ease constipation. Also ask if you should skip any foods. Drinking lots of fluids and eating foods, such as fruits and vegetables, that are high in fiber can also help. Remember, don't take laxatives unless your surgeon has prescribed them. ? Drinking alcohol and taking pain medicine can cause dizziness and slow your breathing. It can even be deadly. Don't drink alcohol while taking pain medicine. ? Pain medicine can make you react more slowly to things. Don't drive or run machinery while takingpain medicine. Your healthcare provider may tell you to take acetaminophen to help ease your pain. Ask them how much you're supposed to take each day. Acetaminophen or other pain relievers may interact with your prescription medicines or other tvwr-utt-jodoihv (OTC) medicines. Some prescription medicines have acetaminophen and other ingredients in them. Using both prescription and OTC acetaminophen for pain cancause you to accidentally overdose. Read the labels on your OTC medicines with care. This will helpyou to clearly know the list of ingredients, how much to take, and any warnings. It may also help you not take too much acetaminophen. If you have questions or don't understand the information, ask yo ur pharmacist or healthcare provider to explain it to you before you take the OTC medicine. Managing nausea Some people have an upset stomach (nausea) after surgery. This is often because of anesthesia, pain, or pain medicine, less movement of food in the stomach, or the stress of surgery. These tips will help you handle nausea and eat healthy foods as you get better. If you were on a special food plan before surgery, ask your healthcare provider if you should follow it while you get better. Check withyour provider on how your eating should progress. It may depend on the surgery you had. These general tips may help: ? Don't push yourself to eat. Your body will tell you when to eat and how much. ? Start off with clear liquids and soup. They're easier to digest. ? Next try semi-solid foods as you feel ready. These include mashed potatoes, applesauce, and gelatin. ? Slowly move to solid foods. Don?t eat fatty, rich, or spicy foods at first. ? Don't force yourself to have 3 large meals a day. Instead eat smaller amounts more often. ? Take pain medicines with a small amount of solid food, such as crackers or toast. This helps prevent nausea. When to call your healthcare provider Call your healthcare provider right away if you have any of these: ? You still have too much pain, or the pain gets worse, after taking the medicine. The medicine maynot be strong enough. Or there may be a complication from the surgery. ? You feel too sleepy, dizzy, or groggy. The medicine may be too strong. ? Side effects, such as nausea or vomiting. Your healthcare provider may advise taking other medicines to treat these or may change your treatment plan.. ? Skin changes, such as rash, itching, or hives. This may mean you have an allergic reaction. Your provider may advise taking other medicines. ? The incision looks different (for instance, part of it opens up). ? Bleeding or fluid leaking from the incision site, and you weren't told to expect that. ? Fever of 100.4??F (38??C) or higher, or as directed by your healthcare provider. Call 911 Call 911 right away if you have: ? Trouble breathing ? Facial swelling If you have obstructive sleep apnea You were given anesthesia medicine during surgery to keep you comfortable and free of pain. After surgery, you may have more apnea spells because of this medicine and other medicines you were given. The spells may last longer than normal. At home: ? Keep using the continuous positive airway pressure (CPAP) device when you sleep. Unless your healthcare provider tells you not to, use it when you sleep, day or night. CPAP is a common device used to treat obstructive sleep apnea. ? Talk with your provider before taking any pain medicine, muscle relaxants, or sedatives. Your provider will tell you about the possible dangers of taking these medicines. ? Contact your provider if your sleeping changes a lot even when taking medicines as directed. Last Reviewed Date: 2023 00:00:00 ?? [id number] [employer]. All rights reserved. This information is not intended as a substitute for professional medical care. Always follow your healthcare professional's instructions. * Op Note - Berenice Silver MD - 02/09/2025 12:01 PM EDT Operative Note Date: 02/09/25 Location: [facility] OR Name: Seamus Persaud, : 1960, Diagnoses: Pre-op Diagnosis Carpal tunnel syndrome, left Post-op Diagnosis Carpal tunnel syndrome, left Procedure(s): Revision left carpal tunnel release with neurolysis and axogen nerve wrap Use of operating room microscope Attending Surgeon(s): * Berenice Silver - Primary Baby Sitter(s): * Darvin Price MD - Resident - Assisting Anesthesia: Monitor Anesthesia Care ASA: III Blood Administration: Blood Product Administration History None Estimated Blood Loss: Minimal Drains: * None in log * Specimen: None Findings: Significant scar adhesions of the median nerve in the carpal tunnel - distal thick fibrous tissue not previously released vs re-scarred Indications: Seamus Persaud is an 64 y.o. male who is having surgery for Carpal tunnel syndrome, left. Patient presented to hand clinic with persistent symptoms following left endoscopic carpaltunnel release 12/2023 - he reports numbness/tingling of the index, thumb. He underwent diagnostic injection without significant improvement. EMG/NCS demonstrated possible residual or recurrent carpaltunnel on the left - follow up ultrasound of the median nerve at the wrist was normal and not consistent with peripheral nerve compression. He denies neck pain despite osteophytes present in c-spine.We extensively discussed management options. I reiterated to [...] of anesthesia. Patient has diabetes, last A1c 7; he held plavix pre-operatively. He denies nicotine use. Anticipated post-operative course including wound care and activity restrictions were discussed. He expressed understanding and requested to proceed - verbal and written consent was obtained. Narrative: The patient was identified in the preoperative holding area and marked by the surgical team. The markings were confirmed by the patient. The patient was brought to the operating room and placed in the supine position. All pressure points were padded. Preoperative antibiotics were administered. SCDswere placed on the legs and turned on. General anesthesia was induced without difficulty. A non-sterile tourniquet was appropriately padded and placed on the left arm. The patient was then prepared and draped in sterile fashion. A pre-operative time out was performed in which the patient, operativesite, critical steps and necessary equipment were identified. Incision was planned longitudinally over the carpal tunnel in the palm, including prior endoscopic carpal tunnel incision at the wrist, extending proximally to the forearm in Jackson type fashion. Theleft upper extremity was exsanguinated and tourniquet was inflated to 250 mmHg. Markings were incised through the skin. Blunt dissection was performed through the subcutaneous tissue. We began proximally. The forearm fascia was longitudinally incised. The median nerve was identified in the forearm.Dissection then proceeded from proximal to distal to release overlying tissue from median nerve - there was thickened fascial tissue through the carpal tunnel, most significant proximally. This was released with care to protect the underlying median nerve. Release was performed distally to the level of the palmar arch. The operating room microscope was then used to perform neurolysis of the median nerve. The wound was irrigated copiously with normal saline. Hemostasis was obtained with bipolar cautery. Following completion of neurolysis, nerve wrap (10 x 40) was placed - this was secured with 9-0 nylon suture. The tourniquet was released after 93 minutes. We ensured the nerve wrap was loose and not compressing the median nerve. The hand was pink and well perfused. Well vascularized wound edges were closed in a tension-free manner with 3-0 monocryl for approximation of the deep dermis proximally and 3-0 Nylon in interrupted horizontal mattress fashion for skin closure. Local field block was then performed (lidocaine 1% with 1:100,000 epinephrine, bupivacaine 0.25% plain, mixed 50:50, 15 mL total). A sterile dressing was placed followed by a well padded soft dressing. The patient tolerated the procedure well. There were no complications. All final instrument counts were correct. 22 MODIFIER JUSTIFICATION: This procedure was significantly more difficult than normal due to revision nature of the case requiring extensive neurolysis. I estimate that all of these factors increased the length of time of the procedure by at least 60 minutes. There were NO signs of surgical site infection (SSI) present at the time of surgery (PATOS). Complications: None; patient tolerated the procedure well. Submitted by: Berenice Silver MD - 02/09/2025 Post-op plan - Maintain dressing - keep clean and dry until follow up appointment - AKSHAT almaguer for finger ROM - Follow up in 2 weeks for suture removal - no xray * H&P - Darvin Price MD - 02/09/2025 7:15 AM EDT Images from the original note were not included. Subjective Chief complaint Bilateral hand numbness/paresthesias History Of Present Illness Seamus Persaud is a 64 y.o. male presenting with PMHx of DM, CKD, COPD, prior [place]/CVA, C2-C3 cervical stenosis, C5-C6 osteophyte formation and [...] underwent leftendoscopic carpal tunnel release (12/21/23) in [place] for this. He states since then, he [...] This is not a worker's compensation case. Medical/Surgical/Social/Family History I have reviewed and updated the patient history. Travel History Relevant International Travel History: Travel Screening Question Response Have you been in contact with someone who was sick? No / Unsure Do you have any of the following new or worsening symptoms? None of these Have you traveled internationally or domestically in the last month? 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 rate 18, height 1.676 m (5' 6 ), weight 101 kg (222 lb 10.6 oz), SpO2 94%. Results Review I have reviewed the latest lab and imaging results. Assessment & Plan Carpal tunnel syndrome, left Seamus Persaud is a 63 y.o. male presenting for continued evaluation of bilateral hand numbness. L hand pain, weakness, numbness, paresthesias have continued and worsened despite CSI at last visit. Pt would like to proceed with revision carpal tunnel release with possible nerve wrap. - to OR - consent obtained - patient marked [1] Current Facility-Administered Medications Medication Dose Route Frequency Provider Last Rate Last Admin lactated Ringer's infusion 20 mL/hr Intravenous Continuous Berenice Silver MD 20 mL/hr at 02/09/25 0625 20 mL/hr at 02/09/25 0625 Cosigned by Berenice Silver MD at 02/09/2025 7:41 AM EDT * Progress Notes - Viv Hernadez - 12/14/2024 12:48 PM EDT Subjective error Review of Systems Objective Vitals Heart Rate: [77] 77 BP: (109)/(71) 109/71 Physical Exam Assessment & Plan Carpal tunnel syndrome, left Medically Ready for Discharge: documented in this encounter Plan of Treatment Upcoming Encounters Date Type Department Care Team (Late st Contact Info) Description 03/24/2025 1:50 PM EDT Office Visit [facility] [address] [place] [phone] Stephanie Torres, PA [address] [place] [address] 06/16/2025 8:20 AM EST Office Visit [facility] [address] [place] [address] Christine Deng, TIRE BAGGER [address] [facility] [address] [place] [address] documented as of this encounter Goals Goal Patient Goal Type Associated Problems Recent Progress Patient-Stated? Author Autogenerat ed Goal Care Plan Autogenerated Problem No Dorita Castano MD documented as of this encounter Procedures Procedure Name Priority Date/Time Associated Diagnosis Comments POCT GLUCOSE METER UNSOLICITED RESULTS Routine 02/09/2025 2:12 PM EDT COLLECTION CLERK NERVE RANJAN,OPER MICROSCOPE 02/09/2025 11:30 AM EDT Carpal tunnel syndrome, left DE REVISE MEDIAN N/CARPAL TUNNEL SURG 02/09/2025 11:30 AM EDT Carpal tunnel syndrome, left POCT GLUCOSE METER UNSOLICITED RESULTS Routine 02/09/2025 6:23 AM EDT documented in this encounter Results * (ABNORMAL) POCT glucose meter (02/09/2025 2:12 PM EDT) POCT Glucose 127(H) 74 - 99 mg/dL 02/09/2025 2:14 PM EDT [facility] Comment:Accuracy of a glucos e result obtained from a capillary whole blood specimen relies upon adequate, non-compromised capillary blood flow. If the capillary glucose result is not consistent with the patient's clinical signs and symptoms, glucose testing should be repeated with either an arterial or venous sample on the glucometer or sent to the main labortory for testing. Comment 02/09/2025 2:14 PM EDT [facility] Fleet Mechanic ID Pavel Mead 2:14 PM EDT [facility] Device ID [id number] 02/09/2025 2:14 PM EDT [facility] Specimen Type POC Capillary 02/09/2025 2:14 PM EDT [facility] Blood Capillary blood specimen / Unknown 02/09/2025 2:12 PM EDT 02/09/2025 2:14 PM EDT Berenice Silver MD LAB POINT OF CARE TEST DOCKED DEVICE UNSOLICITED RESULTS Final Result Performing Organization Address City/State/[facility] Co de Phone Number [facility]ARE [facility] [address] [place] [address] * (ABNORMAL) POCT glucose meter (02/09/2025 6:23 AM EDT) [facility] POCT Glucose 109(H) 74 - 99 mg/dL 02/09/2025 6:24 AM EDT [facility] Comment:Accuracy of a glucos e result obtained from a capillary whole blood specimen relies upon adequate, non-compromised capillary blood flow. If the capillary glucose result is not consistent with the patient's clinical signs and symptoms, glucose testing should be repeated with either an arterial or venous sample on the glucometer or sent to the main labortory for testing. Comment 02/09/2025 6:24 AM EDT [facility] Fleet Mechanic ID [place] 02/09/2025 6:24 AM EDT [facility] Device ID [id number] 02/09/2025 6:24 AM EDT [facility] Specimen Type POC Capillary 02/09/2025 6:24 AM EDT [facility] Blood Capillary blood specimen / Unknown 02/09/2025 6:23 AM EDT 02/09/2025 6:24 AM EDT us eBrenice Silver MD LAB POINT OF CARE TEST DOCKED DEVICE UNSOLICITED RESULTS Final Result [facility] [address] [place] [address] documented in this encounter Visit Diagnoses Not on filedocumented in this encounter Admitting Diagnoses Diagnosis Carpal tunnel syndrome, left Carpal tunnel syndrome documented in this encounter Administered Medications Inactive Administered Medications - up to 3 most recent administrations Medication Order MAR Action Action Date Dose Rate Site acetaminophen (Tylenol) tablet 500 mg 500 mg, Oral, Once as needed, 1 dose, Starting on Kailee 02/09/25 at 1345, Until Kailee 02/09/25 at 1800, Routine, Recovery (Phase I only), pain score of >1 out of 10 fentaNYL (Sublimaze) injection 25 mcg 25 mcg, Intravenous, Every 5 min PRN, 2 doses, Starting on Kailee 02/09/25 at 1345, Until Kailee 02/09/25 at 1433, Routine, Recovery (Phase I only), pain score of 3-4 out of 10 Given 02/09/2025 2:33 PM EDT 25 mcg Given 02/09/2025 2:25 PM EDT 25 mcg fentaNYL (Sublimaze) injection 50 mcg 50 mcg, Intravenous, Every 5 min PRN, 1 dose, Starting on Kailee 02/09/25 at 1345, Until Kailee 02/09/25 at 1416, Routine, Recovery (Phase I only), pain score of 5-8 out of 10 Given 02/09/2025 2:16 PM EDT 50 mcg lactated Ringer's infusion 20 mL/hr, Intravenous, Continuous, Starting on Kailee 02/09/25 at 0700, Until Kailee 02/09/25 at 1800, Routine Restarted 02/09/2025 11:45 AM EDT New Bag 02/09/2025 6:25 AM EDT 20 mL/hr 20 mL/hr naloxone (Narcan) injection 0.4 mg 0.4 mg, Intravenous, As needed, Starting on Kailee 02/09/25 at 1345, Until Kailee 02/09/25 at 1800, Routine, Recovery (Phase I only), respiratory depression ondansetron (Zofran) injection 4 mg 4 mg, Intravenous, Once as needed, 1 dose, Starting on Kailee 02/09/25 at 1345, Until Kailee 02/09/25 at 1800, Routine, Recovery (Phase I only), nausea, vomiting oxyCODONE (Roxicodone) immediate release tablet 10 mg 10 mg, Oral, Once as needed, 2 doses, Starting on Kailee 02/09/25 at 1345, Until Kailee 02/09/25 at 1800, Routine, Recovery (Phase I only), pain score of 6-8 out of 10 Given 02/09/2025 2:16 PM EDT 10 mg oxyCODONE (Roxicodone) immediate release tablet 5 mg 5 mg, Oral, Once as needed, 2 doses, Starting on Kailee 02/09/25 at 1345, Until Kailee 02/09/25 at 1800, Routine, Recovery (Phase I only), pain score of 3-5 out of 10 Povidone-Iodine 5 % swab solution 1 Application Nasal, Once, 1 dose, On Kailee 02/09/25 at 0700, Routine Given 02/09/2025 6:28 AM EDT 1 Application sodium chloride 0.9 % flush 10 mL 10 mL, Intravenous, Every 12 hours, First dose on Kailee 02/09/25 at 0845, Until Discontinued, Routine, Holding - Preprocedure sodium chloride 0.9 % flush 10 mL 10 mL, Intravenous, As needed, Starting on Kailee 02/09/25 at 0756, Until Kailee 02/09/25 at 1800, Routine, Holding - Preprocedure, line care documented in this encounter Active and Recently Administered Medications Times are shown in EDT. Scheduled Medication Order 02/07/2025 02/08/2025 02/09/2025 ceFAZolin (Ancef) injection 2 g (COMPLETED) 2 g, Intravenous, Once, 1 dose, On Kailee 02/09/25 at 1245, Routine, Anesthesia Intraprocedure 1155 (Given - Provid er: Ginette Mejia CRNA, DNP) Povidone-Iodine 5 % swab solution 1 Application (COMPLETED) Nasal, Once, 1 dose, On Kailee 02/09/25 at 0700, Routine 0628 (Given - Provid er: Rebekah Calhoun RN) sodium chloride 0.9 % flush 10 mL(Linked Group 1) 10 mL, Intravenous, Every 12 hours, First dose on Kailee 02/09/25 at 0845, Until Discontinued, Routine, Holding - Preprocedure 0845 (Canceled Entry - Provider: Automatic Discharge Provider - Comment: Automatically canceled at discontinue of medication order) Continuous Medication Order 02/07/2025 02/08/2025 02/09/2025 lactated Ringer's infusion 20 mL/hr, Intravenous, Continuous, Starting on Kailee 02/09/25 at 0700, Until Kailee 02/09/25 at 1800, Routine 0625 (New Bag - Prov ider: Rebekah Calhoun RN)1144 (Paused - Provider: Ginette Mejia CRNA, ASHANTI - Comment: Switch to gravity)1145 (Restarted - Provider: Ginette Mejia CRNA, ASHANTI)1341 (Anesthesia Volume Adjustment - Provider: Ginette Mejia CRNA, ASHANTI)1352 (Stopped - Provider: Ginette Mejia CRNA, ASHANTI) PRN Medication Order 02/07/2025 02/08/2025 02/09/2025 acetaminophen (Tylenol) tablet 500 mg 500 mg, Oral, Once as needed, 1 dose, Starting on Kailee 02/09/25 at 1345, Until Kaiele 02/09/25 at 1800, Routine, Recovery (Phase I only), pain score of >1 out of 10 bupivacaine PF (Marcaine) 0.25 % injection (CANCELED) As needed, Starting on Kailee 02/09/25 at 1226, Until Kailee 02/09/25 at 1354, Routine, Intraprocedure 1226 (Given - Provid er: Berenice Silver MD) fentaNYL (Sublimaze) injection 25 mcg (COMPLETED) 25 mcg, Intravenous, Every 5 min PRN, 2 doses, Starting on Kailee 02/09/25 at 1345, Until Kailee 02/09/25 at 1433, Routine, Recovery (Phase I only), pain score of 3-4 out of 10 1425 (Given - Provid er: Pavel Mead)1433 (Given - Provider: Pavel Mead) fentaNYL (Sublimaze) injection 50 mcg (COMPLETED) 50 mcg, Intravenous, Every 5 min PRN, 1 dose, Starting on Kailee 02/09/25 at 1345, Until Kailee 02/09/25 at 1416, Routine, Recovery (Phase I only), pain score of 5-8 out of 10 1416 (Given - Provid er: Pavel Mead) lidocaine-EPINEPHrine (Xylocaine W/EPI) 1 %-1:497625 injection (CANCELED) As needed, Starting on Kailee 02/09/25 at 1226, Until Kailee 02/09/25 at 1354, Routine, Intraprocedure 1226 (Given - Provid er: Berenice Silver MD) naloxone (Narcan) injection 0.4 mg 0.4 mg, Intravenous, As needed, Starting on Kailee 02/09/25 at 1345, Until Kailee 02/09/25 at 1800, Routine, Recovery (Phase I only), respiratory depression ondansetron (Zofran) injection 4 mg 4 mg, Intravenous, Once as needed, 1 dose, Starting on Kailee 02/09/25 at 1345, Until Kailee 02/09/25 at 1800, Routine, Recovery (Phase I only), nausea, vomiting oxyCODONE (Roxicodone) immediate release tablet 10 mg(Linked Group 2) 10 mg, Oral, Once as needed, 2 doses, Starting on Kailee 02/09/25 at 1345, Until Kailee 02/09/25 at 1800, Routine, Recovery (Phase I only), pain score of 6-8 out of 10 1416 (Given - Provid er: Pavel Mead) oxyCODONE (Roxicodone) immediate release tablet 5 mg(Linked Group 2) 5 mg, Oral, Once as needed, 2 doses, Starting on Kailee 02/09/25 at 1345, Until Kailee 02/09/25 at 1800, Routine, Recovery (Phase I only), pain score of 3-5 out of 10 1416 (See Alternativ e - Provider: Pavel Mead) sodium chloride 0.9 % flush 10 mL(Linked Group 1) 10 mL, Intravenous, As needed, Starting on Kailee 02/09/25 at 0756, Until Kailee 02/09/25 at 1800, Routine, Holding - Preprocedure, line care Linked Groups Order Group 1: Insert peripheral IV (CANCELED) Once, On Kailee 02/09/25 at 0757, For 1 occurrence, Holding - Preprocedure And Saline lock IV (CANCELED) Once, On Kailee 02/09/25 at 0757, For 1 occurrence, Holding - Preprocedure And sodium chloride 0.9 % flush 10 mLJump to med 10 mL, Intravenous, Every 12 hours, First dose on Kailee 02/09/25 at 0845, Until Discontinued, Routine, Holding - Preprocedure And sodium chloride 0.9 % flush 10 mLJump to med 10 mL, Intravenous, As needed, Starting on Kailee 02/09/25 at 0756, Until Kailee 02/09/25 at 1800, Routine, Holding - Preprocedure, line care Group 2: oxyCODONE (Roxicodone) immediate release tablet 5 mgJump to med 5 mg, Oral, Once as needed, 2 doses, Starting on Kailee 02/09/25 at 1345, Until Kailee 02/09/25 at 1800, Routine, Recovery (Phase I only), pain score of 3-5 out of 10 Or oxyCODONE (Roxicodone) immediate release tablet 10 mgJump to med 10 mg, Oral, Once as needed, 2 doses, Starting on Kailee 02/09/25 at 1345, Until Kailee 02/09/25 at 1800, Routine, Recovery (Phase I only), pain score of 6-8 out of 10 documented in this encounter Additional Health Concerns Active Problems Noted Date Diagnosed Date Autogenerated Problem 02/10/2025 Assessment Noted Time A fall risk assessment has been complete d for the patient 12/14/2024 10:01 AM EDT A Body Mass Index follow-up plan has been documented for the patient 12/15/2024 10:44 AM EDT documented as of this encounter Care Teams Linter Tender Relationship Specialty Start Date End Date Philip Khna MD [address] [place] [address] PCP - General Internal Medicine 04/01/22 Hilton Maria MD [address] [place] [address] Surgeon Neurosurgery 04/01/22 documented as of this encounter
--- OUTSIDE RECORDS SUMMARY | 2025-02-09 07:30 | XMS_ITS | Encounter Summary ---
Author Organization Healthcare Address [address] [place] [address] Care Team Providers Care Photography Coordinator Name Role Phone Hilton Maria MD Unavailable Philip Khan MD Primary Care Provider + [phone] Reason for Visit * Auth/Cert (Routine) Specialty Diagnoses / Procedures Referred By Contac t Referred To Contact Diagnoses Carpal tunnel syndrome, left Carpal tunnel syndrome, left [G56.02] Procedures OK REVISE MEDIAN N/CARPAL TUNNEL SURG left carpal tunnel revision release Berenice Silver MD [address] [place] [address] Phone: tel: fax: [facility] [address] [place] [address] Phone: tel: Referral ID Status Reason Start Date Expiration Date Visits Re quested Visits Authorized [id number] 1 1 Encounter Details Date Type Department Care Team (Late st Contact Info) Description 02/09/2025 7:30 AM EDT - 02/09/2025 9:30 AM EDT Surgery [facility] [address] [place] [address] Berenice Silver MD [address] [place] [phone] left carpal tunnel revision release with left median nerve wrap [23110 (CPT )] Surgery Details Date/Time Status Location OR Service Patient Class Case Class Case Type Trauma Case? 02/09/2025 7:30 AM Posted [facility] E-Electi ve Panel 1 Procedure LRB Anes Op Region Wound Class Comments left carpal tunnel revision release with left median nerve wrap Left Monitor Anesthesia Care Wrist Class I/ Clean L carpal tunnel release @ GSH, 45 min, MAC local, CPT 54434 carpal tunnel retractor instrument, blue U drap NEUROLYSIS, INTERNAL, USING OPERATING MICROSCOPE Left Surgeon Surgeon Role Service Panel Berenice Silver MD Primary Plastic Surgery 1 Minor, Darvin Mancilla MD Resident - Assisting 1 documented in this encounter Social History Tobacco [...] Sign Reading Time Taken Comments Blood Pressure 138/72 02/09/2025 6:15 AM EDT Pulse 65 02/09/2025 6:15 AM EDT Temperature 36.8 C (98.3 F) 02/09/2025 6:15 AM EDT Respiratory Rate 18 02/09/2025 6:15 AM EDT Oxygen Saturation 94% 02/09/2025 6:15 AM EDT Inhaled Oxygen Concentration - - Weight 101 kg (222 lb 10.6 oz) 02/09/2025 6:15 A M EDT Height 167.6 cm (5' 6 ) 02/09/2025 6:15 AM EDT Body Mass Index 35.94 02/09/2025 6:15 AM EDT documented in this encounter Functional Status * Calculated C-SSRS Risk Score (Lifetime/Recent) Answer Date of Assessment Author No Risk Indicated 02/09/2025 6:05 AM EDT Lj, Rebekah A, RN * Question Answer Date of Assessment [...] the same time. 07/17/2016 Continuous Glucose Sensor ([employer] Joselito 3 Sensor) [facility] [place] DIRECTED EVERY 14 DAYS 11/07/2024 ergocalciferol (Vitamin D-2) 1.25 MG (42281 UT) capsule Take 1 capsule by mouth [...] from the original note were not included. [address]95 Preventing a Surgical Site Infection A risk [...] of infection. ? Controlled body temperature. A utbkt-ibkk-fifxpl temperature during or after surgery prevents oxygen [...] and water or with an alcohol-based hand congressional aide before and after caring for you. Don?t [...] away. Last Reviewed Date: 2024 00:00:00 ?? [id number] [employer]. All rights reserved. This information is not intended as a substitute for professional medical care. Always follow your healthcare professional's instructions. * [facility] - Pavel Mead - 02/09/2025 2:49 PM EDT Images from the original note were not included. [id number] Discharge Instructions: After Your Surgery You?ve just [...] interact with your prescription medicines or other eovj-sbu-ifpfuwd (OTC) medicines. Some prescription medicines have acetaminophen [...] directed. Last Reviewed Date: 2023 00:00:00 ?? [id number] [employer]. All rights reserved. This information is not intended as a substitute for professional medical care. Always follow your healthcare professional's instructions. * Op Note - Berenice Silver MD - 02/09/2025 12:01 PM EDT Operative Note Date: 02/09/25 Location: [facility] OR Name: Seamus Persaud, : 1960, Diagnoses: Pre-op Diagnosis Carpal tunnel syndrome, left Post-op Diagnosis Carpal tunnel syndrome, left Procedure(s): Revision left carpal tunnel release with neurolysis and axogen nerve wrap Use of operating room microscope Attending Surgeon(s): * Berenice Silver - Primary Anesthesia Attending(s): * Darvin Price MD - Resident - [...] wrap. Risks of the procedure were discussed, includingbut not limited to bleeding, infection, damage to [...] dry until follow up appointment - AKSHAT FIELDS - tripp for finger ROM - Follow up in 2 weeks for suture removal - no xray * H&P - Darvin Price MD - 02/09/2025 7:15 AM EDT Images from the original note were not included. Subjective Chief complaint Bilateral hand numbness/paresthesias History Of Present Illness Seamus Persaud is a 64 y.o. male presenting with PMHx of DM, CKD, COPD, prior VA/CVA, C2-C3 cervical stenosis, C5-C6 osteophyte formation and [...] underwent leftendoscopic carpal tunnel release (12/21/23) in [place] for this. 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 Author Autogenerat ed Goal Care Plan Autogenerated Problem No Dorita Castano MD documented as of this encounter Procedures Procedure Name Priority Date/Time Associated Diagnosis Comments POCT GLUCOSE METER UNSOLICITED RESULTS Routine 02/09/2025 2:12 PM EDT NETWORKING ADMINISTRATOR NERVE RANJAN,OPER MICROSCOPE 02/09/2025 11:30 AM EDT Carpal tunnel syndrome, left OK REVISE MEDIAN N/CARPAL TUNNEL SURG 02/09/2025 11:30 AM EDT Carpal tunnel syndrome, left POCT GLUCOSE METER UNSOLICITED RESULTS Routine 02/09/2025 6:23 AM EDT documented in this encounter Results * (ABNORMAL) POCT glucose meter (02/09/2025 2:12 PM EDT) POCT Glucose 127(H) 74 - 99 mg/dL 02/09/2025 2:14 PM EDT [facility] Comment:Accuracy of a glucos e [...] for testing. Comment 02/09/2025 2:14 PM EDT [facility] Baker Pie ID Pavel Mead 2:14 PM EDT [facility] Device ID [id number] 02/09/2025 2:14 PM EDT [facility] Specimen Type POC Capillary 02/09/2025 2:14 PM EDT [facility] Blood Capillary blood specimen / Unknown 02/09/2025 2:12 PM EDT 02/09/2025 2:14 PM EDT Berenice Silver MD LAB POINT OF CARE TEST DOCKED DEVICE UNSOLICITED RESULTS Final Result [facility] [address] [place] [address] * (ABNORMAL) POCT glucose meter (02/09/2025 6:23 AM EDT) POCT Glucose 109(H) 74 - 99 mg/dL [...] for testing. Comment 02/09/2025 6:24 AM EDT [facility] Baker Pie ID [place] 02/09/2025 6:24 AM EDT [facility] Device ID [id number] 02/09/2025 6:24 AM EDT [facility] Specimen Type POC Capillary 02/09/2025 6:24 AM EDT [facility] Blood Capillary blood specimen / Unknown 02/09/2025 6:23 AM EDT 02/09/2025 6:24 AM EDT us Berenice Silver MD LAB POINT OF CARE TEST DOCKED DEVICE UNSOLICITED RESULTS Final Result Performing Organization Address City/State/[facility] Co de Phone Number [facility] [address] [phone] documented in this encounter Visit Diagnoses Diagnosis Carpal tunnel syndrome, left Carpal tunnel syndrome documented in this encounter Admitting Diagnoses Diagnosis Carpal [...] 10 bupivacaine PF (Marcaine) 0.25 % injection As needed, Starting on Kailee 02/09/25 at 1226, Until Kailee 02/09/25 at 1354, Routine, Intraprocedure Given 02/09/2025 12:26 PM EDT 5 mL fentaNYL (Sublimaze) injection 25 mcg 25 mcg, [...] 6:25 AM EDT 20 mL/hr 20 mL/hr lidocaine-EPINEPHrine (Xylocaine W/EPI) 1 %-1:735193 injection As needed, Starting on Kailee 02/09/25 at 1226, Until Kailee 02/09/25 at 1354, Routine, Intraprocedure Given 02/09/2025 12:26 PM EDT 5 mL naloxone (Narcan) injection 0.4 mg 0.4 mg, Intravenous, As needed, Starting on Kailee 02/09/25 at 1345, Until [facility] 02/09/25 at 1800, Routine, Recovery (Phase I [...] (Given - Provid er: Ginette Mejia CRNA, ASHANTI) Povidone-Iodine 5 % swab solution 1 Application [...] er: Pavel Mead) lidocaine-EPINEPHrine (Xylocaine W/EPI) 1 %-1:301309 injection (CANCELED) As needed, Starting on Kailee [...] as of this encounter Care Teams Photography Coordinator Relationship Specialty Start Date End Date Philip Khan MD [address] [place] [id number] PCP - General Internal Medicine 04/01/22 Hilton Maria MD [address] [place] [address] Surgeon Neurosurgery 04/01/22 documented as of this encounter
--- OUTSIDE RECORDS SUMMARY | 2025-02-09 11:45 | XMS_ITS | Encounter Summary ---
Author Organization Healthcare Address [address] [place] [address] Care Team Providers Care Air Surveillance Operator Name Role Phone Hilton Maria MD Unavailable Philip Khan MD Primary Care Provider + [phone] Reason for Visit * Auth/Cert (Routine) Specialty Diagnoses / Procedures Referred By Contac t Referred To Contact Diagnoses Carpal tunnel syndrome, left Carpal tunnel syndrome, left [G56.02] Procedures WA REVISE MEDIAN N/CARPAL TUNNEL SURG left carpal tunnel revision release Berenice Silver MD [address] [facility] [address] [place] [address] Phone: tel: fax: [facility] S Operating Room [address] [place] [address] Phone: tel: Referral ID Status Reason Start Date Expiration Date Visits Re quested Visits Authorized [id number] 1 1 Encounter Details Date Type Department Care Team (Late st Contact Info) Description 02/09/2025 11:45 AM EDT Anesthesia Event [facility] S Operating Room [address] [place] [address] Jaziel Nieto MD [address] [place] [address] Ginette Mejia CRNA, ASHANTI [address] [place] [address] Anesthesia Record Procedure Summary Procedure Name Responsible [...] acknowledgement of understanding. 1358 An Stop Meds Name Total fentaNYL (Sublimaze) injection 50 mcg/mL 100 mcg lidocaine PF (Xylocaine-MPF) 2% 60 mg propofol (Diprivan) injection 10 mg/mL 2 00 mg dexamethasone (Decadron) injection 4 mg/ mL 4 mg HYDROmorphone PF (Dilaudid) injection 1 mg/mL 0.4 mg ondansetron (Zofran) injection 2 mg/mL 4 mg ceFAZolin (Ancef) injection 2 g 2 g lactated Ringer's infusion 400 mL * Agents Name O2 N2O Air Sevoflurane Inspired Sevoflurane N2O Inspired N2O * Blood No blood administrations on file. Lines, Drains, and Airways Type Details Placement Removal Wound 02/09/25; 1215; N; Y es; Surgical; Wrist; Right 02/09/25 121 by Celsa Espino RN Peripheral IV Placement Date: 09/30; Placement Time: 624; Catheter Size: 20 G; Orientation: Posterior, Right; Location: Hand; Site Prep: Chlorhexidine ; Inserted by: RAJNI SIMON; Insertion Attempts: 1; Patient Tolerance: Tolerated well; Removal Date: 02/09/25; Removal Time: 154; Removal Reason: Discharge 02/09/25 0625 by Rebekah Calhoun RN 02/09/25 1545 by Pavel Mead Supraglottic Airway Placement Date: 09/30; Placement Time: 1152 (created via procedure documentation); Mask Ventilation: 1; [...] as of this encounter Functional Status * Calculated C-SSRS [...] Calhoun RN documented as of this encounter Miscellaneous Notes * Anesthesia Postprocedure Evaluation - Ginette Mejia CRNA, DNP - 02/09/2025 1:58 PM EDT Patient: Seamus Persaud Anesthesia Type: general Vitals Value Taken Time BP 129/76 02/09/25 13:58 Temp 97.5 02/09/25 13:58 Pulse 64 02/09/25 13:58 Resp 18 02/09/25 13:58 SpO2 99% 02/09/25 13:58 Anesthesia Post Evaluation Patient location during evaluation: PACU Patient participation: complete - patient cannot participate Level of consciousness: sedated Pain management: adequate (pain score 0-3) Airway patency: natural airway Cardiovascular status: acceptable and hemodynamically stable Respiratory status: acceptable, face mask, oral airway, spontaneous ventilation, unassisted and nonlabored ventilation Hydration status: acceptable Nausea/Vomiting: No No notable events documented. * Anesthesia Procedure Notes - Ginette Mejia CRNA, DNP - 02/09/2025 12:00 PM EDTAssociated Order(s): Airway Airway Date/Time: 02/09/2025 11:52 AM Reason: elective Airway not difficult General Information and Staff Patient location during procedure: OR PARTS SPECIALIST: Ginette Mejia CRNA, DNP Performed: JOHNATHAN Patient Condition Indications for airway management: anesthesia Patient position: sniffing MILS maintained throughout Final Airway Details Final airway type: LMALMA Size: 5 LMA Type: normal * Anesthesia Preprocedure Evaluation - Young Cisse III, MD - 02/09/2025 7:02 AM EDT Anesthesiologist: Jaziel Nieto MD PARTS SPECIALIST: Ginette Mejia CRNA, DNP Patient: Seamus Persaud HPI Seamus Persaud is a 64 y.o. male with body mass index is 35.94 kg/m??. who presents with Carpal tunnel syndrome, left, now for left carpal tunnel revision release (Left) History notable for prior stroke (denies residual deficits), CAD, Afib s/p ablation, HTN, T2DM, GERD, CKD, NSCLC, cervical stenosis Risks and benefits of the anesthesia were discussed. All questions answered to patient's satisfaction. Ht Readings from Last 1 Encounters: 02/09/25 1.676 m (5' 6 ) Wt Readings from Last 1 Encounters: 02/09/25 101 kg (222 lb 10.6 oz) Body mass index is 35.94 kg/m??. METs: >4 NPO STATUS: Appropriately NPO Anticoagulation: Plavix Procedure Information Date/Time: 02/09/25 0730 Procedure: left carpal tunnel revision release (Left: Wrist) - L carpal tunnel release @ [facility], 45 min, MAC local, CPT 16292 carpal tunnel retractor instrument, blue U drap Location: [address] [place] [address] OR Surgeons: Berenice Silver MD Relevant Problems Cardio (+) Essential hypertension GI (+) Gastroesophageal reflux disease /Renal (+) Acute kidney failure, unspecified (CMS/HCC) (+) Chronic kidney disease, stage 3 unspecified (CMS/HCC) ALLERGIES Allergies[1] NPO STATUS Date of Last Liquid: 02/09/25 Time of Last Liquid: 0330 Date of Last Solid: 02/08/25 Time of Last Solid: 2230 Time of Last Void: 0605 Past Medical History[2] AIRWAY HISTORY Airway Detailed Review Displaying the 20 most recent records No records found. MEDICATIONS Outpatient Current Outpatient Medications Medication Instructions albuterol 108 (90 Base) MCG/ACT inhaler 2 puffs, As needed baclofen (LIORESAL) 10 mg, 3 times daily clopidogrel (PLAVIX) 75 mg, Every 24 hours Continuous Glucose Sensor (FreeStyle Joselito 3 Sensor) misc USE DIRECTED EVERY 14 DAYS ergocalciferol (VITAMIN D-2) 50,000 Units, Weekly famotidine (Pepcid) 20 MG tablet Daily gabapentin (NEURONTIN) 800 mg, 3 times daily GNP Lidocaine Pain Relief 4 % patch APPLY 1 PATCH TOPICALLY TO MOST PAINFUL AREA AND LEAVE ON FOR 12 HOURS THEN REMOVE AND LEAVE OFF FOR 12 HOURS HumaLOG KWIKPEN 100 UNIT/ML injection pen After [...] minMax daily dose-50 units isosorbide mononitrate ER (IMDUR) 30 mg, Daily isosorbide mononitrate ER (IMDUR) 60 mg, Daily Jardiance 25 mg, Daily Lantus SoloStar 100 UNIT/ML injection pen 30 Units nightly. lidocaine (Lidoderm) 5 % patch No dose, route, or frequency recorded. lisinopril 5 MG tablet Every 24 hours loperamide (Imodium) 2 MG capsule TAKE 2 CAPSULES BY MOUTH now THEN TAKE 1 CAPSULE BY MOUTH AFTER each loose stool max daily DOSE 16 MG metoprolol tartrate (LOPRESSOR) 25 mg, Every 12 hours OneTouch Ultra test strip No dose, route, or frequency recorded. oxyCODONE (Roxicodone) 10 MG immediate release tablet No dose, route, or frequency recorded. pantoprazole (ProtoNix) 20 MG EC tablet No dose, route, or frequency recorded. rosuvastatin (Crestor) 40 MG tablet Daily spironolactone (ALDACTONE) 50 mg, Daily terbinafine (LamISIL) 250 MG tablet Take 1 tablet every day by oral route as directed, for toenail fungus. tiZANidine (ZANAFLEX) 4 mg, 3 times daily PRN torsemide (DEMADEX) 50 mg, Daily zolpidem (AMBIEN) 10 mg, Nightly PRN Scheduled Current Scheduled Medications[3] PRNs Current PRN Medications[4] SURGICAL HX: 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[5] SOCIAL HX: Social History[6] OBJECTIVE DATA LABS Lab Results Component Value Date WBC 5.75 04/01/2022 HGB 14.0 04/01/2022 HCT 41.9 04/01/2022 MCV 97 04/01/2022 PLT 277 04/01/2022 Lab Results Component Value Date CALCIUM 9.7 04/01/2022 BUN 32 (H) 04/01/2022 CREATININE 1.71 (H) 04/01/2022 BCR 19 04/01/2022 NA 135 (L) 04/01/2022 K 4.9 (H) 04/01/2022 CL 99 04/01/2022 CO2 24 04/01/2022 CA 9.7 10/27/2019 Type and Screen No results found for: ABO No results found for: HGBA1C Lab Results Component Value Date PGLU 109 (H) 02/09/2025 ABG No results found for: PHART , EJS9VEU , PO2ART , SO2ART , BEART , CAB6YZA , HCTART , SODIUMART , POTASSIUMART , POCTCL , POCGLU , IONCALART , LACTATE No results found for: PH , PCO2 , PO2 , U4NXOHKO , BASEEXC , HCTSYR , KSYR , CLSYR , GLUSYR , CAION , LACTATE ECHO No echocardiogram results found for the past 12 months PFTs No results found for: HIT1CQB , KLX9CBZM , MBL5SCB , FVCPRED BP Readings from Last 5 Encounters: 02/09/25 138/72 01/27/25 92/56 12/14/24 109/71 11/18/24 128/71 11/11/24 124/74 Physical Exam Airway Mallampati: II Mouth opening: normal TM distance: >3 FB Neck ROM: limited Cardiovascular Rhythm: regular Rate: normal (-) murmur, peripheral edema Dental - normal exam Pulmonary Breath sounds clear to auscultation (-) wheezes Neurological Oriented: normal to time, normal to place and normal to person and oriented to person, place and time (-) altered mental status Skin Skin: warm and dry Musculoskeletal Extremities Anesthesia Plan ASA 3 Anesthesia technique(s) discussed with the patient/family: general and MAC Anesthesia plan agreed upon was: MAC Anesthetic plan and risks discussed with patient. ROS Anesthesia: Date of last anesthetic: Most [...] Cardiovascular: atrial fibrillation, CAD, hyperlipidemia and past SC (2017). Does not have angina, CHF, dysrhythmias, peripheral edema, peripheral edema or pacemaker. hypertension (somtimes low): is well controlled.Exercise tolerance is 2 flights of stairs. Does [...] episode 8 months ago in hospital at [facility] + cyst on liver Genitourinary: chronic [...] was 7.0 Does not have thyroid disorder. [1] Allergies Allergen Reactions Naproxen Hives Other reaction(s): hives Tramadol Hives and Nausea [2] Past Medical History: Diagnosis Date Chronic kidney [...] TIA 2016. Unspecified abdominal pain Stomach pain [3] [4] [5] Past 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: Procedure Laterality Date CHOLECYSTECTOMY N/A Cholecystectomy from [facility] HAND SURGERY Left [id number] KNEE SURGERY Right arthroscopy ROTATOR CUFF REPAIR Left x2 [6] Social History Tobacco Use Smoking status: Former [...] smokes marijuana 1 joint every 2 weeks Cosigned by Jaziel Nieto MD at 02/09/2025 7:18 AM EDT Associated attestation - Jaziel iNeto MD - 02/09/2025 7:18 AM EDT I agree with the findings and care plan documented in the preprocedure evaluation note. documented in this encounter Plan of Treatment Upcoming Encounters Date Type Department Care Team (Late st Contact Info) Description 03/24/2025 1:50 PM EDT Office Visit [facility] [address] [place] [address] Stephanie Torres PA [address] [address] 06/16/2025 8:20 AM EST Office Visit [facility] [address] [place] [address] Christine Deng, SALON MANAGER [address] [address] documented as of this encounter Goals Goal Patient Goal Type Associated Problems Recent Progress Patient-Stated? Author Autogenerat ed Goal Care Plan Autogenerated Problem No Dorita Castano MD documented as of this encounter Procedures Procedure Name Priority Date/Time Associated Diagnosis Comments PB ANESTHESIA PLACEHOLDER Routine 02/09/2025 11:52 AM EDT WA AN ELECTIVE SUPRAGLOTTIC AIRWAY Routine 02/09/2025 11:52 AM EDT documented in this encounter Results * WA AN ELECTIVE SUPRAGLOTTIC AIRWAY, PB ANESTHESIA PLACEHOLDER (02/09/2025 11:52 AM EDT) Narrative Ginette Mejia CRNA, DNP - 02/09/2025 11:52 AM EDT Ginette Mejia CRNA, DNP 02/09/2025 12:00 PM Airway Date/Time: 02/09/2025 11:52 AM Reason: elective Airway not difficult General Information and Staff Patient location during procedure: OR PARTS SPECIALIST: Ginette Mejia CRNA, DNP Performed: JOHNATHAN Patient Condition Indications for airway management: anesthesia Patient position: sniffing MILS maintained throughout Final Airway Details Final airway type: LMALMA Size: 5 LMA Type: normal Jaziel Nieto MD ANESTHESIA ORDERABLES Final Re sult documented in this encounter Visit Diagnoses Not on filedocumented in this encounter Administered Medications Inactive Administered Medications - up to 3 most recent administrations Medication Order MAR Action Action Date Dose Rate Site ceFAZolin (Ancef) injection 2 g 2 g, Intravenous, Once, 1 dose, On Kailee 02/09/25 at 1245, Routine, Anesthesia Intraprocedure Given 02/09/2025 11:55 AM EDT 2 g dexamethasone (Decadron) injection Intravenous, As needed, Starting on Kailee 02/09/25 at 1155, Until Kailee 02/09/25 at 1358, Routine, Anesthesia Intraprocedure Given 02/09/2025 11:55 AM EDT 4 mg fentaNYL (Sublimaze) injection Intravenous, As needed, Starting on Kailee 02/09/25 at 1202, Until Kailee 02/09/25 at 1358, Routine, Anesthesia Intraprocedure Given 02/09/2025 1:18 PM EDT 25 mcg Given 02/09/2025 12:38 PM EDT 25 mcg Given 02/09/2025 12:02 PM EDT 50 mcg HYDROmorphone PF (Dilaudid) injection Intravenous, As needed, Starting on Kailee 02/09/25 at 1328, Until Kailee 02/09/25 at 1358, Routine, Anesthesia Intraprocedure Given 02/09/2025 1:40 PM EDT 0.2 mg Given 02/09/2025 1:28 PM EDT 0.2 mg lactated Ringer's infusion 20 mL/hr, Intravenous, Continuous, Starting on Kailee 02/09/25 at 0700, Until Kailee 02/09/25 at 1800, Routine Restarted 02/09/2025 11:45 AM EDT New Bag 02/09/2025 6:25 AM EDT 20 mL/hr 20 mL/hr lidocaine PF (Xylocaine) 2 % injection Intravenous, As needed, Starting on Kailee 02/09/25 at 1149, Until Kailee 02/09/25 at 1358, Routine, Anesthesia Intraprocedure Given 02/09/2025 11:49 AM EDT 60 mg ondansetron (Zofran) injection Intravenous, As needed, Starting on Kailee 02/09/25 at 1337, Until Kailee 02/09/25 at 1358, Routine, Anesthesia Intraprocedure Given 02/09/2025 1:37 PM EDT 4 mg propofol (Diprivan) injection Intravenous, As needed, Starting on Kailee 02/09/25 at 1149, Until Kailee 02/09/25 at 1358, Routine, Anesthesia Intraprocedure Given 02/09/2025 11:50 AM EDT 50 mg Given 02/09/2025 11:49 AM EDT 150 mg documented in this encounter Additional Health Concerns Active Problems Noted Date Diagnosed Date Autogenerated Problem 02/10/2025 Assessment Noted Time A fall risk assessment has been complete d for the patient 12/14/2024 10:01 AM EDT A Body Mass Index follow-up plan has been documented for the patient 12/15/2024 10:44 AM EDT documented as of this encounter Care Teams Air Surveillance Operator Relationship Specialty Start Date End Date Philip Khan MD [address] [place] [address] PCP - General Internal Medicine 04/01/22 Hilton Maria MD [address] [place] [address] Surgeon Neurosurgery 04/01/22 documented as of this encounter
--- OUTSIDE RECORDS SUMMARY | 2025-02-22 11:10 | XMS_ITS | Encounter Summary ---
Author Organization Healthcare Address [address] [place] [address] Care Team Providers Care Study Abroad Coordinator Name Role Phone Hilton Maria MD Unavailable Philip Khan MD Primary Care Provider + [phone] Reason for Visit * Reason Comments Post-op Encounter Details Date Type Department Care Team (Late st Contact Info) Description 02/22/2025 11:10 AM EDT Office Visit [facility] [address] [place] [phone] Berenice Silver MD [address] [address] Encounter for postoperative care (Primary Dx); Numbness and tingling in left hand; Carpal tunnel syndrome, left Social History Tobacco Use Types Packs/Day Years [...] Sign Reading Time Taken Comments Blood Pressure 114/67 02/22/2025 11:06 AM EDT Pulse 51 02/22/2025 11:06 AM EDT Temperature - - Respiratory Rate - - Oxygen Saturation 97% 02/22/2025 11:06 AM EDT Inhaled Oxygen Concentration - - Weight - - Height 167.6 cm (5' 6 ) 02/22/2025 11:06 AM EDT Body Mass Index - - documented in this encounter Miscellaneous Notes * Progress Notes - Melanie Camara MD - 02/22/2025 11:10 AM EDT [facility] Procedure: left carpal tunnel revision release with left median nerve neurolysis and nerve wrap Date of Surgery: 02/09/2025 History of Present Illness: Seamus Persaud returns status post left carpal tunnel revision release with left median nerveneurolysis and nerve wrap on 02/09/2025, doing very well. The patient denies fever, chills, redness, warmth, and streaking. No other issues. The patient has weaned off narcotic pain medication. He reports the numbness and tingling to his thumb and index finger are already improved. He returned in their postoperative splint. Review of Systems: Negative as per HPI PMHX/PFH/Social History: The patient's past medical history, family history, and social history were reviewed from the intake form, as well as other areas of the record. These were incorporated into the decision making process. Please see the form and below for more details on each of these histories. Post-Op Exam: General Exam - no acute distress, well appearing Postoperative Exam Left Upper Extremity: Incision to dorsal wrist is well approximated without surrounding erythema or drainage, small amounts of eschar He is able to form a composite fist 5/5 strength in flexion and extension of thumb Two Point Discrimination Thumb Index Long Ring Small Left 6 10 5 Radial 5, Ulnar 6 6 Imaging: No new imaging obtained for this visit Assessment & Plan The patient presents today s/p left carpal tunnel revision release with left median nerve neurolysis and nerve wrap on 02/09/2025. The patient has done well up to this point postoperatively and reportssatisfaction with the procedure including some symptomatic relief already. There is no evidence of infection or wound healing complication. Sutures were removed today and the patient was intrusted tokeep the wound clean and dry until eschar is gone. All of the patient's questions were answered. The patient will follow-up in 4 weeks, and will not need radiographs at the next appointment. Melanie Camara MD (PGY-1) Cosigned by Berenice Silver MD at 03/01/2025 12:50 PM EDT Associated attestation - Berenice Silver MD - 03/01/2025 12:50 PM EDT I saw and evaluated the patient with the resident/fellow. I discussed the case with the resident/fellow and agree with the findings and plan as documented. documented in this encounter Plan of Treatment Upcoming Encounters Date Type Department Care Team (Late st Contact Info) Description 03/24/2025 1:50 PM EDT Office Visit [facility] [address] [place] [address] Stephanie Torres, PA [address] [facility] [address] [place] [address] 06/16/2025 8:20 AM EST Office Visit [facility] [address] [place] [address] Christine Deng, BRINE SUPERVISOR [address] [phone] documented as of this encounter Goals Goal Patient Goal Type Associated Problems Recent Progress Patient-Stated? Author Autogenerat ed Goal Care Plan Autogenerated Problem No Dorita Castano MD documented as of this encounter Visit Diagnoses Diagnosis Encounter for postoperative care- Primary Numbness and tingling in left hand Disturbance of skin sensation Carpal tunnel syndrome, left Carpal tunnel syndrome documented in this encounter Additional Health Concerns Active Problems Noted Date Diagnosed Date Autogenerated Problem 02/10/2025 Assessment Noted Time A fall risk assessment has been complete d for the patient 12/14/2024 10:01 AM EDT A Body Mass Index follow-up plan has been documented for the patient 02/22/2025 11:33 AM EDT documented as of this encounter Care Teams Study Abroad Coordinator Relationship Specialty Start Date End Date Philip Khan MD [address] [place] [address] PCP - General Internal Medicine 04/01/22 Hilton Maria MD [address] [place] [address] Surgeon Neurosurgery 04/01/22 documented as of this encounter
[2025-03-08 22:09] VITALS: BP 141/81; PULSE 78; RESP 16; TEMP 36.6; O2SAT 98; BMI 34.9
--- OUTSIDE RECORDS SUMMARY | 2025-03-08 22:22 | XMS_ITS | Encounter Summary ---
Author Organization Healthcare Address [address] [place] [address] Care Team Providers Care Knife Cutter Name Role Phone Hilton Maria MD Unavailable Philip Khan MD Primary Care Provider + [phone] Encounter Details Date Type Department Care Team (Latest Contact Info) Description 01/26/2025 Travel Social History Tobacco Use Types Packs/Day [...] Description 03/24/2025 1:50 PM EDT Office Visit [facility] [address] [place] [phone] Stephanie Torres PA [address] [place] [phone] 06/16/2025 8:20 AM EST Office Visit [facility] [address] [place] [address] Christine Deng, CASE FITTER [address] [facility] [address] [place] [address] documented as of this encounter Goals Goal Patient Goal Type Associated Problems Recent Progress Patient-Stated? Author Autogenerat ed Goal Care Plan Autogenerated Problem No Dorita Castano MD documented as of this encounter Visit Diagnoses Not on filedocumented in this encounter Additional Health Concerns Active Problems Noted Date Diagnosed Date Autogenerated Problem 02/10/2025 Assessment Noted Time A fall risk assessment has been complete d for the patient 12/14/2024 10:01 AM EDT A Body Mass Index follow-up plan has been documented for the patient 12/15/2024 10:44 AM EDT documented as of this encounter Care Teams Knife Cutter Relationship Specialty Start Date End Date Philip Khan MD [address] [place] [address] PCP - General Internal Medicine 04/01/22 Hilton Maria MD [address] [place] [address] Surgeon Neurosurgery 04/01/22 documented as of this encounter
--- OUTSIDE RECORDS SUMMARY | 2025-03-08 22:23 | XMS_ITS | Clinical Summary ---
[facility] [address] [place] [address] Care Team Providers Care Fruit Peeler Name Role Phone Konstantni Dawn MD Primary Care Provider [phone] Allergies Active Allergy Reactions Criticality Noted Date [...] Activ e vitamin D (ERGOCALCIFEROL) 1.25 MG (38542 UT) capsule capsule 10/07/2021 Active Active Problems [...] of 2) 2012 LIPID PANEL 12/13/2016 12/14/2015 INFLUENZA VACCINE 01/06/2025 04/19/2018 HEMOGLOBIN A1C Discontinued 12/14/2015 Procedures Procedure [...] - 12/14/2015 8:09 PM EDT Performed at: [address] [place] [id number] Records Management Director: Concetta Juan MD, Phone: [phone] us Tani Patterson MD LAB BLOOD ORDERABLES Final Resu lt [facility] (AMBULATORY) [address] [place] [address], [place] [phone] [facility] [address] [place] [address], [place] [phone] * (ABNORMAL) Lipid panel (12/14/2015 1:47 PM EDT) [facility] Total Cholesterol 140 0 - 200 mg/dL [...] - 12/14/2015 8:09 PM EDT Performed at: [address] [place] [id number] Records Management Director: Concetta Juan MD, Phone: [phone] us Tani Patterson MD LAB BLOOD ORDERABLES Final Resu lt [facility] (AMBULATORY) [address] [place] [address], [place] [phone] [facility] [address] [place] [address], [place] [phone] from Last 3 Months or Most Recently Relevant to Health Maintenance Care Teams Fruit Peeler Relationship Specialty Start Date End Date Konstantin Dawn MD [address] [place] [address] PCP - General Internal Medicine 08/13/21
--- OUTSIDE RECORDS SUMMARY | 2025-03-08 22:23 | XMS_ITS | Encounter Summary ---
Author Organization Healthcare Address [address] [place] [address] Care Team Providers Care Coarse Wire Drawer Name Role Phone Hilton Maria MD Unavailable Philip Khan MD Primary Care Provider + [phone] Encounter Details Date Type Department Care Team (Late st Contact Info) Description 01/27/2025 Telephone [facility] [address] [place] [address] Berenice Silver MD [address] [address] Social History Tobacco Use Types Packs/Day Years [...] Risk Indicated 02/09/2025 6:05 AM EDT Rebekah Calhoun, RN * Question Answer Date of Assessment Author 1. Wish to be (Past 1 Month) No 025 6:05 AM EDT Rebekah Calhoun RN 2. Non-Specific Active Suici pieter Thoughts (Past 1 Month) No 02/09/2025 6:05 AM EDT Reny Calhoun, RN 6. Suicidal Behavior (Lifetime) No 6:05 AM EDT Rebekah Calhoun RN documented as of this encounter Plan of Treatment Upcoming Encounters Date Type Department Care Team (Late st Contact Info) Description 03/24/2025 1:50 PM EDT Office Visit [facility] [address] [place] [phone] Stephanie Torres PA 2[address] [facility] 2nd [place] [address] 06/16/2025 8:20 AM EST Office Visit [facility] [address] [place] [address] Christine Deng, TOBACCO SPRAYER [address] [facility] 401 [place] [address] documented as of this encounter [...] documented as of this encounter Care Teams Coarse Wire Drawer Relationship Specialty Start Date End Date Philip Khan MD [address] [place] [id number] PCP - General Internal Medicine 04/01/22 Hilton Maria MD [address] [place] [address] Surgeon Neurosurgery 04/01/22 documented as of this encounter
--- OUTSIDE RECORDS SUMMARY | 2025-03-08 22:23 | XMS_ITS | Encounter Summary ---
Author Organization Healthcare Address [address] [place] [address] Care Team Providers Care Advertiser Name Role Phone Hilton Maria MD Unavailable Philip Khan MD Primary Care Provider + [phone] Encounter Details Date Type Department Care Team (Late st Contact Info) Description 02/10/2025 Orders Only [facility] [address] [place] [address] Darvin Price MD [address] [place] [address] [phone] Social History Tobacco Use Types Packs/Day Years [...] Description 03/24/2025 1:50 PM EDT [facility] [address] [place] [address] Stephanie Torres PA [address] [address] 06/16/2025 8:20 AM EST Office Visit [facility] [address] [place] [address] Christine Deng, STIFF LEG OPERATOR [address] [facility] 401 [place] [address] documented as of this encounter [...] documented as of this encounter Care Teams Advertiser Relationship Specialty Start Date End Date hPilip Khan MD [address] [place] [address] PCP - General Internal Medicine 04/01/22 Hilton Maria MD [address] [facility] [address] [place] [address] Surgeon Neurosurgery 04/01/22 documented as of this encounter
--- OUTSIDE RECORDS SUMMARY | 2025-03-08 22:23 | XMS_ITS | Encounter Summary ---
Author Organization Healthcare Address [address] [place] [address] Care Team Providers Care Ceramic Design Engineer Name Role Phone Hilton Maria MD Unavailable Philip Khan MD Primary Care Provider + [phone] Encounter Details Date Type Department Care Team (Latest Contact Info) Description 02/22/2025 Travel Social History Tobacco Use Types Packs/Day [...] Description 03/24/2025 1:50 PM EDT [facility] [address] [place] [address] Stephanie Torres PA [address] [place] [phone] 06/16/2025 8:20 AM EST Office Visit [facility] [address] [place] [address] Christine Deng, PENSION MANAGER [address] [facility] [address] [place] [address] documented as of this encounter [...] documented as of this encounter Care Teams Ceramic Design Engineer Relationship Specialty Start Date End Date Philip Khan MD [address] [place] [address] PCP - General Internal Medicine 04/01/22 Hilton Maria MD [address] [place] [address] Surgeon Neurosurgery 04/01/22 documented as of this encounter
--- OUTSIDE RECORDS SUMMARY | 2025-03-08 22:23 | XMS_ITS | Encounter Summary ---
Author Organization Healthcare Address [address] [place] [address] Care Team Providers Care Principal Architectural Firm Name Role Phone Hilton Maria MD Unavailable Philip Khan MD Primary Care Provider + [phone] Encounter Details Date Type Department Care Team (Latest Contact Info) Description 01/27/2025 Travel Social History Tobacco Use Types Packs/Day [...] Description 03/24/2025 1:50 PM EDT [facility] Visit [facility] [address] [place] [address] Stephanie Torres PA [address] [place] [address] 06/16/2025 8:20 AM EST Office Visit [facility] [address] [place] [address] Christine Deng, JEWEL SORTER [address] [facility] [address] [place] [address] documented as of this encounter [...] documented as of this encounter Care Teams Principal Architectural Firm Relationship Specialty Start Date End Date Philip Khan MD [address] [place] [address] PCP - General Internal Medicine 04/01/22 Hilton Maria MD [address] [place] [address] Surgeon Neurosurgery 04/01/22 documented as of this encounter
--- OUTSIDE RECORDS SUMMARY | 2025-03-08 22:23 | XMS_ITS | Encounter Summary ---
Author Organization [facility] Address [address] [place] [address] Care Team Providers Care Pbx Wire Chief Name Role Phone Hilton Maria MD Unavailable Philip Khan MD Primary Care Provider + [phone] Reason for Referral * Consultation (Routine) - Authorized Specialty Diagnoses / Procedures Referred By Contac t Referred To Contact Endocrinology Diagnoses Type II diabetes mellitus with nephropathy Deonte Kraft MD [address] [place] [address] Phone: tel: fax: [facility] Endocrinology [address] [place] [phone] Phone: tel: fax: Referral ID Status Reason Start Date Expiration Date Visits Requested Visits Authorized [id number] Authorized Specialty Services Required 4 11/17/2025 1 1 Encounter Details Date Type Department Care Team (Late st Contact Info) Description 05/18/2024 Community [facility] [address] [place] [address] Deonte Kraft MD [address] [place] [address] Type II diabetes mellitus with nephropathy [...] PM EDT Office Visit [facility] [address] [place] [address] Stephanie Torres, PA [address] [place] [address] 06/16/2025 8:20 AM EST Office Visit [facility] [address] [place] [address] Christine Deng, PACKAGE DELIVERY ROOM SERVICE RUNNER [address] [facility] [address] [place] [address] Scheduled Referrals Name Type Priority Associated Diagnoses Order Schedule Ambulatory referral to Endocrinology Outpatient Referral Routine Type II diabetes mellitus with nephropathy ([facility]) Expected: 05/18/2024 (Approximate), Expires: 11/16/2025 documented as of this encounter Visit Diagnoses Diagnosis Type II diabetes mellitus with nephropathy- Primary Type II or unspecified type diabetes mellitus with renal manifestations, not stated as uncontrolled documented in this encounter Additional Health Concerns Assessment Noted Time A fall risk assessment has been complete d for the patient 04/01/2022 9:09 AM EDT A Body Mass Index follow-up plan has been documented for the patient 04/15/2024 1:06 PM EST documented as of this encounter Care Teams Pbx Wire Chief Relationship Specialty Start Date End Date Philip Khan MD [address] [place] [address] PCP - General Internal Medicine 04/01/22 Hilton Maria MD [address] [facility] [facility] [address] [place] [address] Surgeon Neurosurgery 04/01/22 documented as of this encounter
--- OUTSIDE RECORDS SUMMARY | 2025-03-08 22:23 | XMS_ITS | Encounter Summary ---
Author Organization Healthcare Address [address] [place] [address] Care Team Providers Care Intensive Care Unit Registered Nurse Name Role Phone Hilton Maria MD Unavailable Philip Khan MD Primary Care Provider + [phone] Reason for Referral * Consultation (Routine) - Closed Specialty Diagnoses / Procedures Referred By Contac t Referred To Contact Nephrology Diagnoses Stage 3b chronic kidney disease (CMS/HCC) Kyler Holloawy MD [address] [address] Phone: tel: fax: Kirby Colin MD [address] [address] Phone: tel: fax: Referral ID Status Reason Start Date Expiration Date V isits Requested Visits Authorized [id number] Closed Specialty Services Required 02/16/2024 08/17/2025 1 1 Encounter Details Date Type Department Care Team (Late st Contact Info) Description 02/16/2024 Community [facility] [address] [place] [address] Kyler Holloway MD 105 [facility] [address] [place] [address] Stage 3b chronic kidney disease [...] PM EDT Office Visit Terrie Ruiz [address] [place] [address] Stephanie Torres, PA [address] [place] [address] 06/16/2025 8:20 AM EST Office Visit [facility] [address] [place] [address] Christine Deng, REFINER OPERATOR [address] [facility] 401 [place] [address] Scheduled Referrals Name Type Priority [...] documented as of this encounter Care Teams Intensive Care Unit Registered Nurse Relationship Specialty Start Date End Date Philip Khan MD [address] [place] [address] PCP - General Internal Medicine 04/01/22 Hilton Maria MD [address] [facility] [address] [place] [address] Surgeon Neurosurgery 04/01/22 documented as of this encounter
--- OUTSIDE RECORDS SUMMARY | 2025-03-08 22:23 | XMS_ITS | Encounter Summary ---
Author Organization Healthcare Address [address] [place] [address] Care Team Providers Care Chipper Machine Operator Name Role Phone Hilton Maria MD Unavailable Philip Khan MD Primary Care Provider + [phone] Encounter Details Date Type Department Care Team (Late Contact Info) Description 01/21/2023 Orders Only External Location [address] [place] [address] Enrico Flores MD 110 [facility] [address] [place] [address] Social History Tobacco Use Types [...] Department Care Team (Late Contact Info) Description 03/24/2025 1:50 PM EDT Office Visit [facility] Ru[facility] [address] [place] [address] Stephanie Torres PA [address] [address] 06/16/2025 8:20 AM EST Office Visit [facility] [address] [place] [address] Christine Deng, CORN CHIP MAKER [address] [place] [address] documented as of this encounter [...] documented as of this encounter Care Teams Chipper Machine Operator Relationship Specialty Start Date End Date Philip Khan MD [address] [place] [address] PCP - General Internal Medicine 04/01/22 Hilton Maria MD [address] [facility] [address] [place] [address] Surgeon Neurosurgery 04/01/22 documented as of this encounter
--- OUTSIDE RECORDS SUMMARY | 2025-03-08 22:23 | XMS_ITS | Encounter Summary ---
Author Organization [facility] Address [address] [place] [address] Care Team Providers Care High School Drafting Teacher Name Role Phone Hilton Maria MD Unavailable Philip Khan MD Primary Care Provider + [phone] Reason for Referral * Consultation (Routine) - Authorized Specialty Diagnoses / Procedures Referred By Contannabelle davis Referred To Contact Interventional Radiology Diagnoses Cyst of pancreas Abdominal distention Hyperbilirubinemia Nausea and vomiting, unspecified vomiting type Diarrhea, unspecified type Irritable bowel syndrome with constipation Janae Seo APRN [address] [place] [address] Phone: tel: fax: Referral ID Status Reason Start Date Expiration Date Visits Requested Visits Authorized [id number] Authorized Specialty Services Required 12/26/2024 06/27/2026 1 1 Encounter Details Date Type Department Care Team (Late st Contact Info) Description 12/26/2024 Community [facility] [address] [place] [address] Janae Seo APRN [address] [place] [address] Cyst of pancreas (Primary Dx); Abdominal distention; Hyperbilirubinemia; Nausea and vomiting, unspecified vomiting type; Diarrhea, unspecified type; Irritable bowel syndrome with constipation Social History Tobacco Use Types Packs/Day Years [...] 03/24/2025 1:50 PM EDT Office Visit [facility] [address] [place] [address] Stephanie Torres, PA 2[address] [facility] 2nd [place] [address] 06/16/2025 8:20 AM EST Office Visit [facility] [address] [place] [address] Christine Deng F, LEVEL GLASS VIAL FILLER [address] [address] Scheduled Referrals Name Type Priority Associated Diagnoses Orde r Schedule Ambulatory referral to Diagnostic Radiology Outpatient Referral Routine Cyst of pancreas Abdominal distention Hyperbilirubinemia Nausea and vomiting, unspecified vomiting type Diarrhea, unspecified type Irritable bowel syndrome with constipation Expected: 12/26/2024 (Approximate), Expires: 06/29/2026 documented as of this encounter Goals Goal Patient Goal Type Associated Problems Recent Progress Patient-Stated? Author Autogenerat ed Goal Care Plan Autogenerated Problem No Dorita Castano MD documented as of this encounter Visit Diagnoses Diagnosis Cyst of pancreas- Primary Cyst and pseudocyst of pancreas Abdominal distention Flatulence, eructation, and gas pain Hyperbilirubinemia Disorders of bilirubin excretion Nausea and vomiting, unspecified vomiting type Diarrhea, unspecified type Irritable bowel syndrome with constipation Irritable bowel syndrome documented in this encounter Additional Health Concerns Active Problems Noted Date Diagnosed Date Autogenerated Problem 02/10/2025 Assessment Noted Time A fall risk assessment has been complete d for the patient 12/14/2024 10:01 AM EDT A Body Mass Index follow-up plan has been documented for the patient 12/15/2024 10:44 AM EDT documented as of this encounter Care Teams High School Drafting Teacher Relationship Specialty Start Date End Date Philip Khan MD [address] [place] [address] PCP - General Internal Medicine 04/01/22 Hilton Maria MD [address] [facility] [address] [place] [address] Surgeon Neurosurgery 04/01/22 documented as of this encounter
--- OUTSIDE RECORDS SUMMARY | 2025-03-08 22:23 | XMS_ITS | Encounter Summary ---
Author Organization [facility] Address [address] [place] [address] Care Team Providers Care Beauty Artist Name Role Phone Hilton Maria MD Unavailable Philip Khan MD Primary Care Provider + [phone] Encounter Details Date Type Department Care Team (Latest Contact Info) Description 02/09/2025 Travel Social History Tobacco Use Types Packs/Day [...] PM EDT Office Visit Terrie Ruiz [address] [place] [address] Stephanie Torres, PA [address] [place] [address] 06/16/2025 8:20 AM EST Office Visit [facility] [address] [place] [address] Christine Deng, SALES CORRESPONDENCE CLERK [address] [facility] [address] [place] [address] documented as of this encounter [...] documented as of this encounter Care Teams Beauty Artist Relationship Specialty Start Date End Date Philip Khan MD [address] [place] [address] PCP - General Internal Medicine 04/01/22 Hilton Maria MD [address] [place] [address] Surgeon Neurosurgery 04/01/22 documented as of this encounter
--- OUTSIDE RECORDS SUMMARY | 2025-03-08 22:23 | XMS_ITS | Clinical Summary ---
Author Organization Healthcare Address [address] [place] [address] Care Team Providers Care Corner Block Cutter Name Role Phone Hilton Maria MD Unavailable Philip Khan MD Primary Care Provider + [phone] Allergies Active Allergy Reactions Criticality Noted Date Comments Naproxen Hives Medium 09/16/2015 Other reaction(s): hives Tramadol Hives,Nausea Medium 09/16/2015 Medications albuterol 108 (90 Base) MCG/ACT inhaler Inhale 2 puffs as needed. 7 Active clopidogrel (Plavix) 75 MG tabletIndicatio ns:may restart 02/10 Take 1 tablet by mouth 1 (one) time each day at the same time. 7 Active Jardiance 25 MG Take 1 tablet by mouth daily. 2 Active ergocalciferol (Vitamin D-2) 1.25 MG (56591 UT) capsule Take 1 capsule by mouth 1 time per week. 9 Active gabapentin (Neurontin) 800 MG tablet Take 1 tablet by mouth 3 times a day. 8 Active OneTouch Ultra test strip 2 Active lisinopril 5 MG tablet 1 (one) time each day at the same time. 2 Active metoprolol tartrate (Lopressor) 25 MG tablet Take 1 tablet by mouth every 12 hours. 2 Active spironolactone (Aldactone) 50 MG tablet Take 1 tablet by mouth daily. 2 Active torsemide (Demadex) 100 MG tablet Take 0.5 tablets by mouth daily. 2 Active isosorbide mononitrate ER (Imdur) 30 MG 24 hr tablet Take 1 tablet (30 mg) by mouth 1 (one) time each day. Do not crush or chew. Active famotidine (Pepcid) 20 MG tablet daily. 2 Active rosuvastatin (Crestor) 40 MG tablet daily. 3 Active pantoprazole (ProtoNix) 20 MG EC tablet 3 Active lidocaine (Lidoderm) 5 % patch 3 Active Lantus SoloStar 100 UNIT/ML injection pen 30 Units nightly. Active HumaLOG KWIKPEN 100 UNIT/ML injection pen [...] Continuous Glucose Sensor (FreeStyle Joselito 3 Sensor) [facility] USE DIRECTED EVERY 14 DAYS 5 Active baclofen (Lioresal) 10 MG tablet Take 1 tablet by mouth 3 times a day. 5 Active loperamide (Imodium) 2 MG capsule TAKE 2 CAPSULES BY MOUTH now THEN TAKE 1 CAPSULE BY MOUTH AFTER each loose stool max daily DOSE 16 MG Active terbinafine (LamISIL) 250 MG tablet Take 1 tablet every day by oral route as directed, for toenail fungus. 5 Active tiZANidine (Zanaflex) 4 MG tablet Take 1 tablet by mouth 3 times a day as needed. 5 Active zolpidem (Ambien) 10 MG tablet Take 1 tablet by mouth at night as needed for sleep. 5 Active isosorbide mononitrate ER (Imdur) 60 MG 24 hr tablet Take 1 tablet by mouth daily. 5 Active GNP Lidocaine Pain Relief 4 % patch APPLY 1 PATCH TOPICALLY TO MOST PAINFUL AREA AND LEAVE ON FOR 12 HOURS THEN REMOVE AND LEAVE OFF FOR 12 HOURS 5 Active methocarbamol (Robaxin) 500 MG tablet Take 1 tablet by mouth 4 times a day for 10 days. 40 tablet 5 Active oxyCODONE (Roxicodone) 5 MG immediate release tablet Take 1 tablet by mouth every 6 hours as needed for severe pain. 10 tablet 5 Active Additional Information Patient not taking.Reported on 02/22/2025 ranolazine (Ranexa) 1000 MG 12 hr tablet Take 1,000 mg by mouth 2 (two) times a day. 2 025 Discontin ued(Enter ed in Error) Spiriva HandiHaler [address] 1 capsule (18 mcg) into inhaler and inhale 1 (one) time each day. 2 025 Discontin ued(Enter ed in Error) oxyCODONE-aceta minophen (Percocet) 10-325 MG tablet Take 1 tablet by mouth if needed. 2 025 Discontin ued(Enter ed in Error) B-D ULTRAFINE III SHORT PEN 31G X 8 MM misc 2 025 Discontin ued(Enter ed in Error) Januvia 100 MG tablet 3 025 Discontin ued(Enter ed in Error) oxyCODONE (Roxicodone) 10 MG immediate release tablet 3 025 Discontin ued(Stop Taking at Discharge ) benzonatate (Tessalon) 100 MG capsule 3 025 Discontin ued(Enter ed in Error) oxyCODONE (Roxicodone) 5 MG immediate release tablet Take 1 tablet by mouth every 6 hours as needed for severe pain. 10 tablet 5 025 Discontin ued(Reord er) Active Problems Problem Noted Date Diagnosed Date Carpal tunnel syndrome, left 12/14/2024 Type 2 diabetes mellitus wit h diabetic neuropathy, unspecified 05/27/2024 Chronic kidney disease, stage 3 unspecified 11/0 01/2024 Hyperlipidemia 11/27/2023 Gastroesophageal reflux disease 11/27/2023 Essential hypertension 11/27/2023 Anxiety 11/27/2023 Cervical disc disorder at C5-C6 level with radic ulopathy 04/01/2022 Overview (04/01/2022): Added automatically from request for surgery [id number] Resolved Problems Problem Noted Date Diagnosed Date Resolved Date Acute kidney failure, unspecified 10/10/2024 02/26/2025 Encounters Date Type Department Care Team Description 02/22/2025 11:10 AM EDT Office Visit [facility] [address] [place] [address] Berenice Silver MD Encounter for postoperative care (Primary Dx); Numbness and tingling in left hand; Carpal tunnel syndrome, left 02/22/2025 Travel 02/10/2025 Orders Only [facility] [address] [place] [id number] Darvin Price MD 02/10/2025 Telephone [facility] [address] [place] [address] Berenice Silver MD 02/09/2025 11:45 AM EDT Anesthesia Event [facility] Operating [facility] [address] [place] [address] Jaziel Nieto MD Miller, Lauren E, CRNA, DNP 02/09/2025 7:30 AM EDT - 02/09/2025 9:30 AM EDT Surgery [facility] S Operating Room [address] [place] [address] Berenice Silver MD left carpal tunnel revision release with left median nerve wrap [55205 (CPT )] 02/09/2025 6:03 AM EDT - 02/09/2025 4:00 PM EDT Hospital Encounter [facility] S Operating Room [address] [place] [address] Berenice Silver MD Discharge Disposition: Home or Self Care 02/09/2025 Travel 01/27/2025 10:15 AM EDT Pre-Admission Testing [facility] [address] [place] [address] Preop examination (Primary Dx) 01/27/2025 Telephone [facility] [address] [place] [address] Berenice Silver MD 01/27/2025 Travel 01/26/2025 Travel 12/26/2024 [facility] [address] [place] [address] Janae Seo APRN Cyst of pancreas (Primary Dx); Abdominal distention; Hyperbilirubinemia; Nausea and vomiting, unspecified vomiting type; Diarrhea, unspecified type; Irritable bowel syndrome with constipation 12/14/2024 10:30 AM EDT Office Visit [facility] [address] [place] [address] Berenice Silver MD Carpal tunnel syndrome, left (Primary Dx) 12/14/2024 Travel from Last 3 Months Immunizations Immunization [...] AM EDT Sexual Orientation Not on file Last Filed Vital Signs Vital Sign Reading Time Taken Comments Blood Pressure 114/67 02/22/2025 11:06 AM EDT Pulse 51 02/22/2025 11:06 AM EDT Temperature 36.3 C (97.4 F) 02/09/2025 3:05 PM EDT Respiratory Rate 14 02/09/2025 3:05 PM EDT Oxygen Saturation 97% 02/22/2025 11:06 AM EDT Inhaled Oxygen Concentration - - Weight 101 kg (222 lb 10.6 oz) 02/09/2025 6:15 A M EDT Height 167.6 cm (5' 6 ) 02/22/2025 11:06 AM EDT Body Mass Index 35.94 02/09/2025 6:15 AM EDT Plan of Treatment Upcoming Encounters Date Type Department Care Team (Late st Contact Info) Description 03/24/2025 1:50 PM EDT Office Visit [facility] [address] [place] [address] Stephanie Torres, PA [address] [place] [address] 06/16/2025 8:20 AM EST Office Visit [facility] [address] [place] [address] Christine Deng, BUSINESS AREA DIRECTOR [address] [facility] [address] [place] [address] Health Maintenance Due Date Last [...] - Risk 60-74 years 1-dose series) 2022 [id number]-80 Vaccine ( - 2024- season) 2025 09/19/2020, 08/22/2020 [facility]-Influenza Vaccine (#1) 2025 04/19/2018 [facility]-Depression Screening 09/22/2025 09/22/2024 [facility]-Hepatitis C Screening Completed 10/27/2019 [facility]-Obesity Intervention Completed 025, 12/14/2024, 11/18/2024, Additional history exists HPV Vaccines Aged Out [...] on patient's age to complete this topic Goals Goal Patient Goal Type Associated Problems Recent Progress Patient-Stated? Author Autogenerat ed Goal Care Plan Autogenerated Problem No Dorita Castano MD Medical Devices Implanted Type Area Retail Office Manager Device Identifier Shelf Expiration Date Model / Serial / Lot Protector Nerve Axoguard 40mm 10mm - [id number] Implanted:Qty: 1 on 02/09/2025 by Berenice Silver MD at [facility] Left: Wrist [id number] 07/12/2026 [id number] / / [id number] Procedures Procedure Name Priority Date/Time Associated Diagnosis Comments POCT GLUCOSE METER UNSOLICITED RESULTS Routine 02/09/2025 2:12 PM EDT PB ANESTHESIA PLACEHOLDER Routine 02/09/2025 11:52 AM EDT IN AN ELECTIVE SUPRAGLOTTIC AIRWAY Routine 02/09/2025 11:52 AM EDT ELECTION SUPERVISOR NERVE RANJAN,OPER MICROSCOPE 02/09/2025 11:30 AM EDT Carpal tunnel syndrome, left IN REVISE MEDIAN N/CARPAL TUNNEL SURG 02/09/2025 11:30 AM EDT Carpal tunnel syndrome, left POCT GLUCOSE METER UNSOLICITED RESULTS Routine 02/09/2025 6:23 AM EDT ECG ADULT Routine 01/27/2025 10:25 AM EDT Preop examination HEMOGLOBIN A1C Routine 04/01/2022 11:28 AM EDT Neck pain Cervical disc disorder at C5-C6 level with radiculopathy CT ANGIO PULMONARY EMBOLISM Routine 10/27/2019 2:46 PM EDT HEPATITIS C ANTIBODY - ED W/REFLEX TO HCV QUANT PCR Routine 10/27/2019 1:10 PM EDT from Last 3 Months or Most Recently Relevant to Health Maintenance Results * (ABNORMAL) POCT glucose meter (02/09/2025 2:12 PM EDT) Only the most recent of2 resultswithin the time period is included. POCT Glucose 127(H) 74 - 99 mg/dL 02/09/2025 2:14 PM EDT [facility] Comment:Accuracy of a glucos e result [...] for testing. Comment 02/09/2025 2:14 PM EDT [facility] Director Of Rehabilitative Services ID Pavel Mead 2:14 PM EDT [facility] Device ID [id number] 02/09/2025 2:14 PM EDT [facility] Specimen Type POC Capillary 02/09/2025 2:14 PM EDT [facility] Blood Capillary blood specimen / Unknown 02/09/2025 2:12 PM EDT 02/09/2025 2:14 PM EDT us Berenice Silver MD LAB POINT OF CARE TEST DOCKED DEVICE UNSOLICITED RESULTS Final Result [facility] [address] [place] [address] * IN AN ELECTIVE SUPRAGLOTTIC AIRWAY, PB ANESTHESIA PLACEHOLDER (02/09/2025 11:52 AM EDT) Narrative Ginette Mejia CRNA, DNP - 02/09/2025 11:52 AM EDT Ginette Mejia CRNA, DNP 02/09/2025 12:00 PM Airway Date/Time: 02/09/2025 11:52 AM Reason: elective Airway not difficult General Information and Staff Patient location during procedure: OR JUNIOR PROGRAMMER ANALYST: Ginette Mejia CRNA, DNP Performed: JOHNATHAN Patient Condition Indications for airway management: anesthesia Patient position: sniffing MILS maintained throughout Final Airway Details Final airway type: LMALMA Size: 5 LMA Type: normal Jaziel Nieto MD ANESTHESIA ORDERABLES Final Re sult * ECG Adult (Now - Performed in your clinic) (01/27/2025 10:25 AM EDT) EKG DIAGNOSIS CLASS Borderline Abnormal MUSE ECG Ventricular Rate 53 BPM MUSE ECG Atrial Rate 53 BPM MUSE ECG IN Interval 170 ms MUSE ECG QRSD Interval 80 ms MUSE ECG QT Interval 448 ms MUSE ECG QTC Interval 420 ms MUSE ECG P [place] 33 degrees MUSE ECG R [place] 12 degrees MUSE ECG T Wave [place] 44 degrees MUSE ECG Diagnosis Sinus bradycardia MUSE ECG Diagnosis Low voltage QRS MUSE ECG Diagnosis MUSE ECG Diagnosis MUSE ECG Diagnosis Confirmed by Kervin Mejia ([id number]) on 01/27/2025 4:24:37 PM MUSE ECG 01/27/2025 10:2 5 AM EDT 01/27/2025 4:24 PM EDT us Lacey HOFF ECG ORDERABLES Final Result MUSE ECG * (ABNORMAL) Hemoglobin A1c (04/01/2022 11:28 AM EDT) Hemoglobin A1c 6.9(H) <5.7 % 04/01/2022 2:45 PM EDT [facility] Blood Venous blood specimen / Unknown Venipuncture / Unknown 04/01/2022 11:28 AM EDT 04/01/2022 11:29 AM EDT Narrative [facility] - 04/01/2022 2:45 PM EDT HA1C Interpretive Data: Diagnosis of Diabetes: Diabetic > or = 6.5% Pre-diabetic 5.7 to 6.4% Non-diabetic < or = 5.6% Glycemic Targets for Type I and Type II Diabetics: Non- Adults <7.0% Adults <6.0% Children and Adolescents <7.5% Source: [employer] Diabetes Association. Standards of medical care in diabetes,2017. Diabetes Care.2017:40 (suppl 1):S1-S135. HbA1c assay performed by an ion-exchange chromatography method that is certified traceable to the DCCT. us Hilton Maria MD LAB BLOOD ORDERA BLES Final Result Performing Organization Address City/[facility] Co de Phone Number [facility] [address] [place] [address] * CT Angio Pulmonary Embolism (10/27/2019 2:46 [...] LLL EXAMINATION / PROCEDURE: CT Pulmonary Embolism May 21 2020 - 14:46; CLINICAL INDICATION: left lateral chest [...] WEEMS M.D. on Oct 27 2019 2:50P us Bigg Flores IMG CT PROCEDURES Final Result * [place] Hepatitis C Antibody (10/27/2019 1:10 PM EDT) [place] Hepatitis C Ab NEGATIVE Reference Range: Negative SUNQUEST 10/27/2019 1:10 PM EDT 10/27/2019 1:19 PM EDT [facility] BLOOD ORDERABLES Final Resul t SUNQUEST from Last 3 Months or Most Recently Relevant to Health Maintenance Additional Health Concerns Active Problems Noted Date Diagnosed Date Autogenerated Problem 02/10/2025 Insurance [facility] MEDICAID Care Teams Corner Block Cutter Relationship Specialty Start Date End Date Philip Khan MD [address] [place] [id number] PCP - General Internal Medicine 04/01/22 Hilton Maria MD [address] [place] [address] Surgeon Neurosurgery 04/01/22
--- OUTSIDE RECORDS SUMMARY | 2025-03-08 22:23 | XMS_ITS | Encounter Summary ---
Author Organization Healthcare Address [address] [place] [address] Care Team Providers Care Oil Lease Buyer Name Role Phone Hilton Maria MD Unavailable Philip Khan MD Primary Care Provider + [phone] Encounter Details Date Type Department Care Team (Late st Contact Info) Description 02/10/2025 Telephone [facility] [address] [place] [address] Berenice Silver MD [address] [address] Social History Tobacco Use Types [...] encounter Miscellaneous Notes * Telephone Encounter - Nati Rust RN - 02/10/2025 12:07 PM EDT Spoke to Mr. Persaud, nothing is working for his pain. He has almost taken all of his oxycodone and has taken 2 at a time and this has not worked. He is taking Tylenol as well, but can not take ibuprofen due to kidney disease. We will check with Dr. Silver to see what else she recommends for him. We will refill his oxycodone and send in some Robaxin. He will rest, ice and elevate. He will call us back with any issues. * Telephone Encounter - Leydi Fernandez - 02/10/2025 9:02 AM EDT Hand pt forward to them documented in this encounter Plan of Treatment Upcoming Encounters Date Type Department Care Team (Late st Contact Info) Description 03/24/2025 1:50 PM EDT Office Visit [facility] [address] [place] [address] Stephanie Torres, PA [address] [phone] 06/16/2025 8:20 AM EST Office Visit [facility] [address] [place] [address] Christine Deng, PEDICURIST [address] [address] documented as of this encounter [...] documented as of this encounter Care Teams Oil Lease Buyer Relationship Specialty Start Date End Date Philip Khan MD [address] [place] [address] PCP - General Internal Medicine 04/01/22 Hilton Maria MD [address] [place] [address] Surgeon Neurosurgery 04/01/22 documented as of this encounter
--- NOTE | 2025-03-08 23:19 | PC.NURSE ---
name called for patient to have blood work drawn, not found in lobby at this time.
== END 2025-03-08 23:19 | disposition left against medical advice (07) ==
PROVIDERS: Emergency Provider Emergency Medicine; PCP Family Medicine
DX: Z53.21 Procedure and treatment not carried out due to patient leaving prior to being seen by health care provider (principal)
CPT/HCPCS: 99211; 99283

== ENCOUNTER 2025-05-17 13:41 | Emergency (ER) | payer OTHER, SELFPAY ==
[2025-05-17 14:27] VITALS: BP 139/73; PULSE 85; RESP 14; TEMP 36.6; O2SAT 98; BMI 33.9
--- NOTE | 2025-05-17 14:55 | XR_ITS ---
FINAL REPORT CLINICAL HISTORY: right knee pain COMPARISON: 04/14/2024 FINDINGS: RIGHT KNEE Three views were obtained. There is no fracture or dislocation. There is sharpening of the tibial spine. Small osteophytes are seen along the undersurface of the patella, similar to previous exam. No soft tissue abnormality is identified. IMPRESSION: Mild osteoarthritis. Reviewed, Interpreted and Dictated by Giles Mcfadden MD Transcribed by Cady Becerra Authenticated and [facility]
--- NOTE | 2025-05-17 15:00 | PC.NURSE ---
pt given something to drink, okay'd by LUIS EDUARDO Goode
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
[2025-05-17] MEDS: OXYCODONE 5MG IMMEDIATE RELEASE TABLET 5 MG PO (15:15)
[2025-05-17] MEDS: DEXAMETHASONE 4MG/ML 5ML MDV 8 MG IM (15:15)
[2025-05-17 16:43] VITALS: BP 138/72; PULSE 76; RESP 18; TEMP 36.8; O2SAT 100
== END 2025-05-17 16:46 | disposition home or self-care (01) ==
PROVIDERS: Emergency Provider Emergency Medicine; PCP Family Medicine
DX: M25.561 Pain in right knee (principal)
CPT/HCPCS: 73562; 96372; 99282; 99283; J1100

== ENCOUNTER 2025-06-02 15:08 | Emergency (ER) | payer OTHER, SELFPAY ==
--- OUTSIDE RECORDS SUMMARY | 2024-05-31 05:15 | XMS_ITS ---
Author Organization [facility] Address [address] [place] [address] Care Team Providers Care Asset Protection Greeter Name Role Phone Nayanmarlene MCCABE Reji Unavailable Adam OSUNA -Lyndon Celestin Unavailable Un available Allergies Allergen (clinical drug ingredient) Drug/Non Drug Allergy documented on EMR Reaction Allergy Type Onset Date Status naproxen hives Drug Allergy Active tramadol tramadol hives Drug Allergy Active REASON FOR VISIT Low Back Pain Medications Medication SIG (Take, Route, Frequency, Duration) Notes Start Date End Date Status lisinopril 5 mg 1 tab(s) orally once a day; Duration: 30 day(s) 05/13/2022 Active famotidine 20 mg 1 tab(s) orally 2 ti mes a day 05/13/2022 Active Jardiance 25 mg 1 tab(s) orally once a day (in the morning) 05/13/2022 Active cefdinir 300 mg 1 cap(s) orally ever y 12 hours; Duration: 10 day(s) 05/13/2022 Active clopidogrel 75 mg 1 tab(s) orally once a day; Duration: 30 day(s) 05/13/2022 Active isosorbide mononitrate 30 mg 1 tab(s) or ally once a day (in the morning); Duration: 30 day(s) 06/04/2022 Active Plavix 75 mg 1 tab(s) orally once a day; Duration: 30 day(s) Active OxyCODONE Hydrochloride 10 mg 1 tab(s) orally 3 times a day; Duration: 28 days Active ranolazine 1000 mg 1 tab(s) orally 2 ti mes a day; Duration: 30 day(s) 06/04/2022 Active OxyCODONE Hydrochloride 10 mg 1 tab(s) orally 3 times a day; Duration: 28 days Active ProAir HFA 90 mcg/inh 2 puff(s) inhaled every 6 hours 05/13/2022 Active Metoprolol Tartrate 25 mg 1 tab(s) orall y 2 times a day; Duration: 30 day(s) 05/13/2022 Active Encounters Encounter Location Date Provider Diagnosis [facility] [address] [place] [address] 05/31/2024 Reji Jordan Other nursing home (current) drug therapy Z79.899 ; Spondylosis without myelopathy or radiculopathy, lumbosacral region M47.817 and Malignant neoplasm of unspecified part of unspecified bronchus or lung C34.90 Assessments Encounter Date Diagnosis (ICD Code) Assessment Notes Treatment Notes Treatment Clinical Notes Section Notes 05/31/2024 Other nursing home (current) drug therapy (ICD-10 - Z79.899) 04/05/2024 1. Refill Oxycodone 10 mg TID 2. F/U 2 months 04/05/2024 Seamus presents for follow up. Primary pain generator is lumbar spondylosis and increasing neck pain. Imaging of CS demonstrates facet arthropathy which is notable at C5-6 and C6-7. Pain is worse on the right and he has difficulty with lateral rotation as well as flexion extension of the head. BUE strong equal. Patient was scheduled to have [facility] Insurance will not pay for the surgery so this has been canceled. He's trying to lose weight and has been walking. Wants to get off of all his meds. Declines injections. December 20 Left Carpal Tunnel Surgery, patient prescribed Hydrocodone 5mg from Dr.Gene Dickerson. Continues to have pain in left wrist after having CTS surgery. Quit physical therapy two weeks in, patiet reports no benefit. Also complains of right knee swelling and posterior knee pain. Reports severe pressure with ambulation. Patient is currently prescribed Oxycodone 10mg TID. Denies side effects. Eden and ROGERS reviewed. Refills and F/U in 2 months. 05/31/2024 Spondylosis without myelopathy or radiculopathy, lumbosacral region (ICD-10 - M47.817) 04/05/2024 Seamus presents for follow up. Primary pain generator is lumbar spondylosis and increasing neck pain. Imaging of CS demonstrates facet arthropathy which is notable at C5-6 and C6-7. Pain is worse on the right and he has difficulty with lateral rotation as well as flexion extension of the head. BUE strong equal. Patient was scheduled to have surgery with Dr[facility] Hilton [facility] at [facility]. Insurance will not pay for the surgery so this has been canceled. He's trying to lose weight and has been walking. Wants to get off of all his meds. Declines injections. December 20 Left Carpal Tunnel Surgery, patient prescribed Hydrocodone 5mg [address].Gene Dickerson. Continues to have pain in left wrist after having CTS surgery. Quit physical therapy two weeks in, patiet reports no benefit. Also complains of right knee swelling and posterior knee pain. Reports severe pressure with ambulation. Patient is currently prescribed Oxycodone 10mg TID. Denies side effects. Eden and ABILIO reviewed. Refills and F/U in 2 months. 05/31/2024 Malignant neoplasm of unspecified part of unspecified bronchus or lung (ICD-10 - C34.90) 04/05/2024 Seamus presents for follow up. Primary pain generator is lumbar spondylosis and increasing neck pain. Imaging of CS demonstrates facet arthropathy which is notable at C5-6 and C6-7. Pain is worse on the right and he has difficulty with lateral rotation as well as flexion extension of the head. BUE strong equal. Patient was scheduled to have surgery with [facility] Hilton [facility]. Insurance will not pay for the surgery so this has been canceled. He's trying to lose weight and has been walking. Wants to get off of all his meds. Declines injections. December 20 Left Carpal Tunnel Surgery, patient prescribed Hydrocodone [address].Gene Dickerson. Continues to have pain in left wrist after having CTS surgery. Quit physical therapy two weeks in, patiet reports no benefit. Also complains of right knee swelling and posterior knee pain. Reports severe pressure with ambulation. Patient is currently prescribed Oxycodone 10mg TID. Denies side effects. Eden and UDS reviewed. Refills and F/U in 2 months. Plan Of Treatment Medication Medication Name Sig Start Date Stop Date Notes OxyCODONE Hydrochloride 10 mg 1 tab(s) o rally 3 times a day; Duration: 28 days OxyCODONE Hydrochloride 10 mg 1 tab(s) o rally 3 times a day; Duration: 28 days Treatment Notes Assessment Notes Other nursing home (current) drug therapy 04/05/2024 1. Refill Oxycodone 10 mg TID 2. F/U 2 months Pending Test Test Name Order Date Urine Test ANALYZER 05/31/2024 Next Appt Details Follow Up: 2 Months, Reason: Procedure Notes * Category Sub-Category Detail Notes PROVIDER ENCOUNTER AND OVERSIGHT Consult Performed By: Monroe Hernadez (APRN-LEX) 04/05/2024 10:39:25 AM > collaborated treatment plan with Reji yanes M.D., , supervising physician who was present in office during consultation Progress Notes * SATISH Erenaman LDOB: [birth year] (64 yo M)Acc No.[id number]:05/31/2024 FollowUP Patient: Seamus BROWN Provider: Mil Jordan II, M.D. :1960 A ge:63 Y S ex:Male Date:05/31/2024 Address:[address] [place], [place] [id number] Subjective: * Chief Complaints: * 1 . Low Back Pain. * HPI: T ODAYS PAIN EVALUATION: 63 year old male presents with c/o MEDICATION FOLLOW UP: T he patient is currently prescribed Oxycodone 10mg TID, which provides 10% relief of pain symptoms for 1 hour. The last dose was taken 1 . Denies side effects . CURRENT PAIN SYMPTOMS: L ocation of Worst Pain: L ow Back, Knee(s), Shoulder(s), Hand knee (RT), hand (LT), P ain Frequency: c onstant, always,?Pain Description: a olivia, burning, sharp, stabbing, numb, tingling, A verage Pain Score VAS: 8 , P ain Exacerbation: walking, sitting, lifting, P ain Alleviation: Laying down, A DL/Quality of Life Interference: work. P ERTINENT INFORMATION: H ethan Jones - 04/02/2024 - Swollen Knee (RT) - OP m eds given: a couple of lortabs per pt 1 . P AIN MANAGEMENT TREATMENT HISTORY: IMAGING HISTORY: 0 11/02/2019CT ABD/PELVIS:Lt infrahilar infiltrate is noted, Correlate for infection of inflammatory process. Gallbladder is absent. There is a slight prominence of the intrahepatic ducts proximally, common duct does not appeat abnormally dilated. There is a hypodense appearance to the head of the pacreas measuring up to 2.2 cm, recommend pancreatic MRI. Atherioschlerosis with mild infrarenal dilation of the aorta up to 2.9cm. 0 07/05/2020T CERVICAL:No acute fracture. Degenerative changes 0 07/31/2020 XR CERVICAL:Overall no change in the cervical spondylosis with degenerative disc disease and foraminal narrowing. 0 01/21/2023 MRI THORACIC;Multilevel mild degenerative disc diease and spondylosis no focal soft disc protrusion or disnificant central canal stenosis 0 01/21/2023 MRI LUMBAR:Multilevel degenerative disc diease and spondylosis 0 07/15/2023 EMG/NCS/BLE : these findings are consistent with what appears to be a chronic S1 radiculopathy L5-S1 level. It appeared to be bilateral. I would recommend correlation with MRI scan of the LS spine. Otherwise there was no evidence of peripheral polyneuropathy block cannot exclude compression neuropathy and tarsal tunnel syndrome with these findings. Again I would recommend clinical correlation in that regard. There was no evidence of myopathy. . P REVIOUS INJECTION\PROCEDURE HISTORY:? 0 2019 #1 ERIN LMBB L3,L4,L5 80% relief for 2 days 0 02/21/2020 #2 ERIN LMBB L3,L4,L5 80% relief for 1 day 1 07/19/2019 RFA RT L3,L4,L5- 20% relief for 1 day . P HYSICAL/AQUA THERAPY/DME/OTHER HISTORY: 2 019- Current (02/2022) at [facility], patient reported no relief . P ERTINENT SURGICAL EVALUATIONS/SPECIALIST CONSULTS N o prior surgical consult . P REVIOUS PAIN CLINIC CARE: F sha pt of Dr. Fernandez about 3-4 months ago, Patient quit going because he sugggested a pain pump and he was not interested in that treatment. . S TERESA OF INITIAL EVALUATION: 0 12/12/2019New patient consult referred by Dr. Adam OSUNA, for chronic low back pain onset in 2006 without incident . She reports the insidious onset of low back pain which is increasingly constant trouble with managing activities of daily living. He the past year was diagnosed with stage III lung cancer. He is actively undergoing treatment with what appeared to be positive results. His previous pain doctor had recommended a pain pump, but Mister Persaud was not interested in pursuing that. He states that the back pain is his primary concern and he does not have to take pain medicine for long cancer. Symptomatically, prolonged sitting, prolonged standing and standing bent slightly flexed exacerbate his pain. MRI of the lumbar spine does reveal posterior element degenerative disease along with degenerative disc disease and facet arthropathy in the lower lumbar segments. I recommended lumbar medial branch blocks from L3-5 bilateral. Risks and benefits that procedure were described the patient agrees to proceed. Agus neri had previously relied on [place] 10/325 one by mouth 3 times a day. He denies side effects to this medication. Brumley and UDS were reviewed today. Opioid risk assessment is low . C OMPLIANCE: RISK ASSESSMENT AND STRATIFICATION: R ISK GROUP: MODERATE RISK membrane stabilizer benzodiazepine . U RINE DRUG TESTIN 07/22/2022 Screen Expected 0 08/17/2023 Screen Expected 0 10/08/2023 Screen Unexpected (all neg) Definitive Unexpected(-Oxy) 0 12/04/2023 Screen Expected 0 02/02/2024 Screen Expected 1 Screen Unexpected(-Oxy) Sent for Definitive . M ONITORING: M orphine Equivalent (MME): 45 K ASPER reviewed today and appropriate . T ESTING/RISK ASSESSMENTS O RT Score/Result:0 . * ROS: G ENERAL: Fever D enies. H EENT: Sore throat D enies. C ARDIOVASCULAR: Positive for b lood thinner (Plavix) for: AL. ? G ASTROINTESTINAL: Heartburn H eartburn. M USCULOSKELETAL: Positive for n dakota pain, back pain, Knee pain. ? N EUROLOGICAL: Positive for t ingling, numbness. P SYCHIATRIC: Positive for d epression- mood changes . E NDOCRINE: Positive for A bnormal blood sugars. * Medical History: C OPD [address] Medina, HTN [address] Gonzalez, Diabetes type [address] Medina, Stage 3 lung cancer [address] Saeed, GERD [address] Medina, Kidney injury [address] Medina, headaches [address] Medina, Depression [address] Medina, TIA [address] Medina, Neuropathy [address] Medina, CHF [address] Medina, AL [address] Gonzalez, Arthritis [address] Medina, Anemia [address] Medina, CAD [address] Gonzalez. * 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: G [place]bladder- [place]) 2008, Lt shoulder- Dr. Dickerson/ [facility] (OP) 2011, Rt Knee surgery X2- Dr. Hayes/ [facility] (OP) 2013, EUS Dr. Olvera/ [facility]) 01/2017, Cardiac Ablation for SVT at / (OP) 2016, Colonoscopy [facility]- Dr Britton [facility] (OP) 2017, Capsule endoscopy- Dr. Dickinson/ [facility] ([facility]) 09/2018, EGD/EUS- Dr. Locke/ [facility] ([facility]) 07/2018, LHC W/out stents/ [facility] ([facility]) 07/2018, EGD- [facility] / OP 06/2020, pt had surgery on left wrist at [facility]. (OP) 12/21/2023. * Hospitalization/Major Diagno stic Procedure: H [facility] - Swollen Knee (RT) - OP 04/02/2024. * Family History: N on-Contributory. Denies family history of substance abuse. * Social History: S moking: no . P ersonal History Drug Use: No. Alcohol: No. * Medications: T aking Plavix 75 mg tablet 1 tab(s) orally once a day , Taking cefdinir 300 mg capsule 1 cap(s) orally every 12 hours , Taking clopidogrel 75 mg tablet 1 tab(s) orally once a day , Taking famotidine 20 mg tablet 1 tab(s) orally 2 times a day , Taking Jardiance 25 mg tablet 1 tab(s) orally once a day (in the morning) , Taking lisinopril 5 mg tablet 1 tab(s) orally once a day , Taking Metoprolol Tartrate 25 mg tablet 1 tab(s) orally 2 times a day , Taking ProAir HFA 90 mcg/inh aerosol 2 puff(s) inhaled every 6 hours , Taking ranolazine 1000 mg tablet, extended release 1 tab(s) orally 2 times a day , Taking isosorbide mononitrate 30 mg tablet, extended release 1 tab(s) orally once a day (in the morning) , Taking OxyCODONE Hydrochloride 10 mg tablet 1 tab(s) orally 3 times a day , Medication List reviewed and reconciled with the patient * Allergies: n aproxen: hives - Allergy, tramadol: hives - Allergy. Objective: * Vitals: * Examination: G eneral Examination: Nurse/Legal Services Manager: Yolanda Trejo (MA-Lex) 04/05/2024 10:21:25 AM > . General Appearance: w ell-nourished individual in no acute distress. The patient is alert and oriented and cooperative for evaluation. HEENT: unremarkable. Neck, Thyroid : supple. Heart: r egular rate. Neurologic Exam: P atient ambulates with an antalgic gait, pitched forward. Skin normal, no rash. Extremities: no clubbing, no edema. ? L umbar Spine/Lower Back: Palpation: d iffuse tenderness throughout lumbar region, Lumbar paraspinal tenderness. Inspection: Spinal alignment no abnormal curvature noted.? Straight leg raising test: negative bilaterally. Sensory exam: D ecreased sensation on the LT LE. Motor system: S evere ROM loss with flexion, Mild ROM loss with extension and side bending. Range of motion: R OM moderately limited, moderate pain induced. Flexion:20 Extension:10 Patricks:POS ERIN. Assessment: * Assessment: 1. 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 S pondylosis without myelopathy or radiculopathy, lumbosacral region - M47.817 3 . M alignant neoplasm of unspecified part of unspecified bronchus or lung - C34.90 04/05/2024 Seamus presents for follow up. Primary pain generator is lumbar spondylosis and increasing neck pain. Imaging of CS demonstrates facet arthropathy which is notable at C5-6 and C6-7. Pain is worse on the right and he has difficulty with lateral rotation as well as flexion extension of the head. BUE strong equal. Patient was scheduled to have [facility]. Insurance will not pay for the surgery so this has been canceled. He's trying to lose weight and has been walking. Wants to get off of all his meds. Declines injections. December 20 Left Carpal Tunnel Surgery, patient prescribed Hydrocodone 5mg [address].Gene Dickerson. Continues to have pain in left wrist after having CTS surgery. Quit physical therapy two weeks in, patiet reports no benefit. Also complains of right knee swelling and posterior knee pain. Reports severe pressure with ambulation. Patient is currently prescribed Oxycodone 10mg TID. Denies side effects. Eden and UDS reviewed. Refills and F/U in 2 months. Plan: * Treatment: * Procedures: Sidra MANDUJANO ENCOUNTER AND OVERSIGHT: Consult Performed By: Monroe Lyman (APRN-LEX) 04/05/2024 10:39:25 AM > . c ollaborated treatment plan with Mil Jordan M.D., , supervising physician who was present in office during consultation. * Follow Up: 2 Months * * Electronic signature of Jm Jordan II, M.D. on 06/02/2025 at 02:34 PM TRAFFIC ANALYSIS TECHNICIAN Sign off status: Pending * Provider: Mil Jordan II, M.D. Date: 08/01/2023 Generated for Seema terrell/Erick/Joseitting on: 08/03/2024 02:34 PM TRAFFIC ANALYSIS TECHNICIAN History and Physical Notes * HPI (History of Present Illness) Category Sub-Category Detail Notes Category Not es PAIN MANAGEMENT TREATMENT HISTORY SUMMARY OF INITIAL EVALUATION: 12/12/2019 New patient consult referred by Dr. Adam OSUNA, for chronic low back pain onset in 2006 without incident . She reports the insidious onset of low back pain which is increasingly constant trouble with managing activities of daily living. He the past year was diagnosed with stage III lung cancer. He is actively undergoing treatment with what appeared to be positive results. His previous pain doctor had recommended a pain pump, but Mister Persaud was not interested in pursuing that. He states that the back pain is his primary concern and he does not have to take pain medicine for long cancer. Symptomatically, prolonged sitting, prolonged standing and standing bent slightly flexed exacerbate his pain. MRI of the lumbar spine does reveal posterior element degenerative disease along with degenerative disc disease and facet arthropathy in the lower lumbar segments. I recommended lumbar medial branch blocks from L3-5 bilateral. Risks and benefits that procedure were described the patient agrees to proceed. He had previously relied on [place] 10/325 one by mouth 3 times a day. He denies side effects to this medication. Brumley and UDS were reviewed today. Opioid risk assessment is low IMAGING HISTORY: 11/02/2019 CT ABD/PELVIS: Lt infrahilar infiltrate is noted, Correlate for infection of inflammatory process. Gallbladder is absent. There is a slight prominence of the intrahepatic ducts proximally, common duct does not appeat abnormally dilated. There is a hypodense appearance to the head of the pacreas measuring up to 2.2 cm, recommend pancreatic MRI. Atherioschlerosis with mild infrarenal dilation of the aorta up to 2.9cm. 07/05/2020 CT CERVICAL: No acute fracture. Degenerative changes 07/31/2020 XR CERVICAL: Overall no change in the cervical spondylosis with degenerative disc disease and foraminal narrowing. 01/21/2023 MRI THORACIC;Multilevel mild degenerative disc diease and spondylosis no focal soft disc protrusion or disnificant central canal stenosis 01/21/2023 MRI LUMBAR:Multilevel degenerative disc diease and spondylosis 07/15/2023 EMG/NCS/BLE : these findings are consistent with what appears to be a chronic S1 radiculopathy L5-S1 level. It appeared to be bilateral. I would recommend correlation with MRI scan of the LS spine. Otherwise there was no evidence of peripheral polyneuropathy block cannot exclude compression neuropathy and tarsal tunnel syndrome with these findings. Again I would recommend clinical correlation in that regard. There was no evidence of myopathy. PHYSICAL/AQUA THERAPY/DME/OT HER HISTORY: 2019- Current (02/2022) at [facility], patient reported no relief PERTINENT SURGICAL EVALUATIONS/SPECIALIST CONSULTS No prior surgical consult PREVIOUS INJECTION\PROCEDURE HISTORY: 2019 #1 ERIN LMBB L3,L4,L5 80% relief for 2 days 02/21/2020 #2 ERIN LMBB L3,L4,L5 80% relief for 1 day 05/18/2020 RFA RT L3,L4,L5- 20% relief for 1 day PREVIOUS PAIN CLINIC CARE: Former pt of Dr. Fernandez about 3-4 months ago, Patient quit going because he sugggested a pain pump and he was not interested in that treatment. COMPLIANCE RISK ASSESSMENT AND STRATIFICATI ON: RISK GROUP: MODERATE RISK membrane stabilizer benzodiazepine URINE DRUG TESTIN05/21/2023 Screen Expected 08/17/2023 Screen Expected 10/08/2023 Screen Unexpected (all neg) Definitive Unexpected(-Oxy) 12/04/2023 Screen Expected 02/02/2024 Screen Expected 04/05/2024 Screen Unexpected(-Oxy) Sent for Definitive MONITORING: Morphine Equivalent (MME): 45 EDEN reviewed today and appropriate TESTING/RISK ASSESSMENTS ORT Score/Result:0 TODAYS PAIN EVALUATION MEDICATION FOLLOW UP: The patient is currently prescribed Oxycodone 10mg TID, which provides 10% relief of pain symptoms for 1 hour. The last dose was taken 04/05/2024. Denies side effects CURRENT PAIN SYMPTOMS: Location of Worst Pain:: Low Back, Knee(s), Shoulder(s), Hand knee (RT), hand (LT) Pain Frequency:: constant, always Pain Description:: aching, b urning, sharp, stabbing, numb, tingling Average Pain Score VAS:: 8 Pain Exacerbation:: walking, sitting, li fting Pain Alleviation:: Laying down ADL/Quality of Life Interference:: work PERTINENT INFORMATION: [facility] - 04/02/2024 - Swollen Knee (RT) - OP meds given: a couple of lortabs per pt 04/05/2024 Examination Category Sub-Category Detail Notes Category Not es General Examination HEENT: unremarkable Neck, Thyroid : supple Heart: regular rate Extremities: no clubbing, no kassy a General Appearance: well-nourished indiv idual in no acute distress. The patient is alert and oriented and cooperative for evaluation Skin normal, no rash Neurologic Exam: Patient ambulates wi th an antalgic gait, pitched forward Nurse/Legal Services Manager: Saeid(MIMA-[facility])Rivasmarcos hastings 04/05/2024 10:21:25 AM > Lumbar Spine/Lower Back Straight leg raising test: neg ative bilaterally Motor system: Severe ROM loss with flexion, Mild ROM loss with extension and side bending Sensory exam: Decreased sensation on the LT LE Range of motion: ROM moderately limited, moderate pain induced. Flexion:20 Extension:10 Patricks: POS ERIN Inspection: Spinal alignment no abnormal curvature noted Palpation: diffuse tenderness t hroughout lumbar region, Lumbar paraspinal tenderness
--- OUTSIDE RECORDS SUMMARY | 2024-08-23 05:15 | XMS_ITS ---
Author Organization [facility] Address [address] [place] [address] Care Team Providers Care Time Broker Name Role Phone Julian MCCABEReji Unavailable [phone] Adam OSUNA -Lyndon Celestin Unavailable Un available REASON FOR VISIT Low Back Pain Medications Medication SIG (Take, Route, Frequency, Duration) Notes Start Date End Date Status Metoprolol Tartrate 25 mg 1 tab(s) orall y 2 times a day; Duration: 30 day(s) 05/13/2022 Active Jardiance 25 mg 1 tab(s) orally once a day (in the morning) 05/13/2022 Active ProAir HFA 90 mcg/inh 2 puff(s) inhaled every 6 hours 05/13/2022 Active clopidogrel 75 mg 1 tab(s) orally once a day; Duration: 30 day(s) 05/13/2022 Active Plavix 75 mg 1 tab(s) orally once a day; Duration: 30 day(s) Active isosorbide mononitrate 30 mg 1 tab(s) or ally once a day (in the morning); Duration: 30 day(s) 06/04/2022 Active OxyCODONE Hydrochloride 10 mg 1 tab(s) orally 3 times a day; Duration: 28 days Active OxyCODONE Hydrochloride 10 mg 1 tab(s) orally 3 times a day; Duration: 28 days Active Lidocaine, Topical 4% 1 patch applied topically once a day; Duration: 30 day(s) Active TiZANidine Hydrochloride 4 mg 1 tab(s) orally 3 times a day as needed; Duration: 30 day(s) Active Encounters Encounter Location Date Provider Diagnosis [facility] [address] [place] [address] 08/23/2024 Reji Jordan [facility] drug [facility] Z79.899 ; Spondylosis without myelopathy or radiculopathy, lumbosacral region M47.817 and Malignant neoplasm of unspecified part of unspecified bronchus or lung C34.90 Assessments Encounter Date Diagnosis (ICD Code) Assessment Notes Treatment Notes Treatment Clinical Notes Section Notes 08/23/2024 [facility] drug therapy (ICD-10 - Z79.899) 06/23/2024 1. Refill Oxycodone 10 mg TID 2. F/U 2 months 3. start tizanidine 4mg TID 4. start lidocaine patches daily 06/23/2024 Seamus presents for follow up. Primary pain [...] off of all his meds. Declines injections. Today he is complaining of increased muscle spasms in her cervical spine area. We did discuss adding zanaflex 4mg TID as needed. I will also order lidocaine patches that he can use on his neck for added pain relief. Patient is currently prescribed Oxycodone 10mg TID. Denies side effects. Eden and ABILIO reviewed. Refills and F/U in 2 months. 08/23/2024 Spondylosis without myelopathy or radiculopathy, lumbosacral region (ICD-10 - M47.817) 06/23/2024 Seamus presents for follow up. Primary pain [...] off of all his meds. Declines injections. Today he is complaining of increased muscle spasms in her cervical spine area. We did discuss adding zanaflex 4mg TID as needed. I will also order lidocaine patches that he can use on his neck for added pain relief. Patient is currently prescribed Oxycodone 10mg TID. Denies side effects. Eden and UDS reviewed. Refills and F/U in 2 months. 08/23/2024 Malignant neoplasm of unspecified part of unspecified bronchus or lung (ICD-10 - C34.90) 06/23/2024 Seamus presents for follow up. Primary pain generator is lumbar spondylosis and increasing neck pain. Imaging of CS demonstrates facet arthropathy which is notable at C5-6 and C6-7. Pain is worse on the right and he has difficulty with lateral rotation as well as flexion extension of the head. MARIAA robertson equal. Patient was scheduled to have [facility] Hilton [facility]. Insurance will not pay for the surgery so this has been canceled. He's trying to lose weight and has been walking. Wants to get off of all his meds. Declines injections. Today he is complaining of increased muscle spasms in her cervical spine area. We did discuss adding zanaflex 4mg TID as needed. I will also order lidocaine patches that he can use on his neck for added pain relief. Patient is currently prescribed Oxycodone 10mg TID. Denies side effects. Eden and UDS reviewed. Refills and F/U in 2 months. Plan Of Treatment Medication Medication Name Sig Start Date Stop Date Notes OxyCODONE Hydrochloride 10 mg 1 tab(s) o rally 3 times a day; Duration: 28 days OxyCODONE Hydrochloride 10 mg 1 tab(s) o rally 3 times a day; Duration: 28 days Lidocaine, Topical 4% 1 patch applied to pically once a day; Duration: 30 day(s) TiZANidine Hydrochloride 4 mg 1 tab(s) o rally 3 times a day as needed; Duration: 30 day(s) Treatment Notes Assessment Notes Other terminal operator (current) drug therapy 06/23/2024 1. Refill Oxycodone 10 mg TID 2. F/U 2 months 3. start tizanidine 4mg TID 4. start lidocaine patches daily Pending Test Test Name Order Date Urine Test ANALYZER 08/23/2024 Next Appt Details Follow Up: 2 Months, Reason: Procedure Notes * Category Sub-Category Detail Notes PROVIDER ENCOUNTER AND OVERSIGHT Consult Performed By: Zahraa Alvarado (ARNP-LEX) 06/23/2024 2:37:35 PM > collaborated treatment plan with Reji yanes M.D., , supervising physician who was present in office during consultation Progress Notes * Seamus COVARRUBIAS LDOB: [birth year] (64 yo M)Acc No.[id number]:08/23/2024 FollowUP Patient: Seamus BROWN Provider: Mil Jordan II, M.D. :1960 A ge:63 Y S ex:Male Date:08/23/2024 Address:[address] [place] [address], [id number] Subjective: * Chief Complaints: * 1 . Low Back Pain. * HPI: T ODAYS PAIN EVALUATION: 63 year old male presents with c/o MEDICATION FOLLOW UP: T he patient is currently prescribed Oxycodone 10mg TID, which provides 15% relief of pain symptoms for 1 hour. The last dose was taken06/23/2024. Denies side effects . CURRENT PAIN SYMPTOMS: [...] Life Interference: work. P ERTINENT INFORMATION: H [facility] - 04/02/2024 - Swollen Knee (RT) - [...] THERAPY/DME/OTHER HISTORY: 2 019- Current (02/2022) at [facility], patient reported no relief . P ERTINENT SURGICAL EVALUATIONS/SPECIALIST CONSULTS N o prior surgical consult . P REVIOUS PAIN CLINIC CARE: F sha pt of Dr. Fernandez about 3-4 months ago, Patient quit going because he sugggested a pain pump and he was not interested in that treatment. . S UMMARY OF INITIAL EVALUATION: 0 12/12/2019New patient consult [...] had recommended a pain pump, but Mister Covarrubias was not interested in pursuing that. He [...] proceed. Agus neri had previously relied on Bethany 10/325 one by mouth 3 times a day. He denies side effects to this medication. Silas and UDS were reviewed today. Opioid risk assessment is low . C OMPLIANCE: RISK ASSESSMENT AND STRATIFICATION: R ISK GROUP: MODERATE RISK membrane stabilizer benzodiazepine . U RINE DRUG TESTIN 08/17/2023 Screen Expected 0 10/08/2023 Screen Unexpected (all neg) Definitive Unexpected(-Oxy) 0 12/04/2023 Screen Expected 0 02/02/2024 Screen Expected 1 Screen Unexpected(-Oxy) Definitive Unexpected (neg) 0 06/23/2024 Screen Unexpected (neg) Sent for 6 month Definitive . M ONITORING: M orphine Equivalent (MME): 45 K ASPER reviewed today and appropriate . T ESTING/RISK ASSESSMENTS O RT Score/Result:0 . * ROS: G ENERAL: Fever D enies. H EENT: Sore throat D enies. C ARDIOVASCULAR: Positive for b lood thinner (Plavix) for: [place]. ? G ASTROINTESTINAL: Heartburn H eartburn. M USCULOSKELETAL: Positive for n dakota pain, back pain, Knee pain. ? N EUROLOGICAL: Positive for t ingling, numbness. P SYCHIATRIC: Positive for d epression- mood changes . E NDOCRINE: Positive for A bnormal blood sugars. * Medical History: * Medications: T aking Plavix 75 mg tablet 1 tab(s) orally once a day , Taking clopidogrel 75 mg tablet 1 tab(s) orally once a day , Taking Jardiance 25 mg tablet 1 tab(s) orally once a day (in the morning) , Taking Metoprolol Tartrate 25 mg tablet 1 tab(s) orally 2 times a day , Taking ProAir HFA 90 mcg/inh aerosol 2 puff(s) inhaled every 6 hours , Taking isosorbide mononitrate 30 mg tablet, extended release 1 tab(s) orally once a day (in the morning) , Taking TiZANidine Hydrochloride 4 mg tablet 1 tab(s) orally 3 times a day as needed , Taking Lidocaine, Topical 4% film 1 patch applied topically once a day , Taking OxyCODONE Hydrochloride 10 mg tablet 1 tab(s) orally 3 times a day , Medication List reviewed and reconciled with the patient Objective: * Vitals: * Examination: G eneral Examination: Nurse/Picker Operator: Ezequiel Goss ( MA-Lex) 06/23/2024 2:26:54 PM > . General Appearance: w ell-nourished individual [...] Assessment: * Assessment: 1. O ther terminal operator (current) drug therapy - Z79.899 (Primary) 2 . S pondylosis without myelopathy or radiculopathy, lumbosacral region - M47.817 3 . M alignant neoplasm of unspecified part of unspecified bronchus or lung - C34.90 06/23/2024 Seamus presents for follow up. Primary pain [...] off of all his meds. Declines injections. Today he is complaining of increased muscle spasms in her cervical spine area. We did discuss adding zanaflex 4mg TID as needed. I will also order lidocaine patches that he can use on his neck for added pain relief. Patient is currently prescribed Oxycodone 10mg TID. Denies side effects. Eden and ABILIO reviewed. Refills and F/U in 2 months. Plan: * Treatment: * Procedures: Sidra MANDUJANO ENCOUNTER AND OVERSIGHT: Consult Performed By: Jayda schneider(BROACHING MACHINE REPAIRER-BEBETO),Zahraa 06/23/2024 2:37:35 PM > . c ollaborated treatment plan with Mil Jordan M.D., , supervising physician who was present in office during consultation. * Follow Up: 2 Months * * Electronic signature of Jm Jordan II, M.D. on 06/02/2025 at 02:34 PM CERAMIC DESIGNER Sign off status: Pending * Provider: Mil Jordan II, M.D. Date: 0 08/23/2024 Generated for Seema terrell/Erick/Joseitting on: 1 08/03/2024 02:34 PM CERAMIC DESIGNER History and Physical Notes * HPI (History [...] had recommended a pain pump, but Mister Covarrubias was not interested in pursuing that. He [...] to proceed. He had previously relied on Bethany 10/325 one by mouth 3 times a day. He denies side effects to this medication. Gavin and UDS were reviewed today. Opioid risk [...] THERAPY/DME/OT HER HISTORY: 2019- Current (02/2022) at [facility], patient reported no relief PERTINENT SURGICAL EVALUATIONS/SPECIALIST [...] MODERATE RISK membrane stabilizer benzodiazepine URINE DRUG TESTIN08/17/2023 Screen Expected 10/08/2023 Screen Unexpected (all neg) Definitive Unexpected(-Oxy) 12/04/2023 Screen Expected 02/02/2024 Screen Expected 04/05/2024 Screen Unexpected(-Oxy) Definitive Unexpected (neg) 06/23/2024 Screen Unexpected (neg) Sent for 6 month Definitive MONITORING: Morphine Equivalent (MME): 45 EDEN reviewed today and appropriate TESTING/RISK ASSESSMENTS ORT Score/Result:0 TODAYS PAIN EVALUATION MEDICATION FOLLOW UP: The patient is currently prescribed Oxycodone 10mg TID, which provides 15% relief of pain symptoms for 1 hour. The last dose was taken06/23/2024. Denies side effects CURRENT PAIN SYMPTOMS: Location of Worst Pain:: Low Back, Knee(s), Shoulder(s), Hand knee (RT), hand (LT) Pain Frequency:: constant, always Pain Description:: aching, b urning, sharp, stabbing, numb, tingling Average Pain Score VAS:: 8 Pain Exacerbation:: walking, sitting, li fting Pain Alleviation:: Laying down ADL/Quality of Life Interference:: work PERTINENT INFORMATION: [facility] - 04/02/2024 - Swollen Knee [...] wi th an antalgic gait, pitched forward Nurse/Picker Operator: Ezequiel Devine ( MA-Lex) 06/23/2024 2:26:54 PM > Lumbar Spine/Lower Back Straight leg raising [...]
--- OUTSIDE RECORDS SUMMARY | 2025-04-07 05:15 | XMS_ITS ---
Author Organization [facility] Address [address] [place] [address] Care Team Providers Care Rehabilitation Medicine Physician Name Role Phone Reji Jordan II Unavailable Adam OSUNA -Lyndon Celestin Unavailable Un available REASON FOR VISIT 2 Month Follow Up Encounters Encounter Location Date Provider Diagnosis [facility] [address] [place] [address] 04/07/2025 Reji Jordan Plan Of Treatment No Information Progress Notes * Seamus COVARRUBIAS LDOB: [birth year] (64 yo M)Acc No.[id number]:04/07/2025 FollowUP Patient: Seamus BROWN Provider: Mil Jordan II, M.D. :1960 A ge:64 Y S ex:Male Date:04/07/2025 Address:[address] [place] [address], [address] Subjective: * Chief Complaints: * 1 . 2 Month Follow Up. * Medical History: Objective: * Vitals: Assessment: Plan: * Treatment: * * Electronic signature of Jm Jordan II, M.D. on 06/02/2025 at 02:34 PM RELAY WORKER Sign off status: Pending * Provider: Mil Jordan II, M.D. Date: Generated for Seema terrell/Erick/Fantasma on: 08/03/2024 02:34 PM RELAY WORKER
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
[2025-06-02 15:17] VITALS: BP 122/56; PULSE 60; RESP 21; TEMP 36.7; O2SAT 98; BMI 34.9
--- OUTSIDE RECORDS SUMMARY | 2025-06-02 15:33 | XMS_ITS | Clinical Summary ---
Author Organization [facility] Address [address] [place] [address] Care Team Providers Care Critical Care Clinical Nurse Specialist Name Role Phone Hilton Maria MD Unavailable Philip Khan MD Primary Care Provider [phone] Allergies Active Allergy Reactions Criticality Noted Date Comments Naproxen Hives Medium 09/16/2015 Other reaction(s): hives Tramadol Hives,Nausea Medium 09/16/2015 Medications albuterol 108 (90 Base) MCG/ACT inhaler Inhale 2 puffs as needed. 7 Active clopidogrel (Plavix) 75 MG tabletIndication s:may restart 02/10 Take 1 tablet by mouth 1 (one) time each day at the same time. 7 Active Jardiance 25 MG Take 1 tablet by mouth daily. 2 Active ergocalciferol (Vitamin D-2) 1.25 MG (07295 UT) capsule Take 1 capsule by mouth [...] for severe pain. 10 tablet 5 Active Embecta Pen Needle Ultrafine 31G X 8 MM misc use as directed 5 Active predniSONE (Deltasone) 20 MG tablet TAKE 2 TABLETS BY MOUTH 2 TIMES A DAY FOR 5 DAYS 5 Active Bromfed DM 2-30-10 MG/5ML syrup Take 10 mL every 4 hours by oral route as needed, for cough. 5 Active zolpidem CR (Ambien CR) 12.5 MG ER tablet take 1 tablet by mouth at bedtime for sleep 5 Active Active Problems Problem Noted Date Diagnosed Date Carpal tunnel syndrome, left 12/14/2024 Type 2 diabetes mellitus wit h diabetic neuropathy, unspecified 05/27/2024 Chronic kidney disease, stage 3 unspecified 0 01/2024 Hyperlipidemia 11/27/2023 Gastroesophageal reflux disease 11/27/2023 Essential hypertension 11/27/2023 Anxiety 11/27/2023 Cervical disc disorder at C5-C6 level with radic ulopathy 04/01/2022 Overview (04/01/2022): Added automatically from request for surgery [id number] Resolved Problems Problem Noted Date Diagnosed Date Resolved Date Acute kidney failure, unspecified 10/10/2024 02/26/2025 Encounters Date Type Department Care Team Description 03/24/2025 1:50 PM EDT Office Visit [facility] [id number] [place] [address] Stephanie Torres, PA Carpal tunnel syndrome, left (Primary Dx) 03/24/2025 Travel from Last 3 Months Immunizations Immunization [...] Sign Reading Time Taken Comments Blood Pressure 107/73 03/24/2025 1:31 PM EDT Pulse 88 03/24/2025 1:31 PM EDT Temperature 36.4 C (97.5 F) 03/24/2025 1:31 PM EDT Respiratory Rate 14 02/09/2025 3:05 PM EDT Oxygen Saturation 95% 03/24/2025 1:31 PM EDT Inhaled Oxygen Concentration - - Weight 97.1 kg (214 lb) 03/24/2025 1:31 PM EDT Height 165.1 cm (5' 5 ) 03/24/2025 1:31 PM EDT Body Mass Index 35.61 03/24/2025 1:31 PM EDT Plan of Treatment Upcoming Encounters Date Type Department Care Team (Late st Contact Info) Description 06/16/2025 8:20 AM EST Office Visit [facility] [address] [place] [address] Christine Deng F, PUBLIC AFFAIRS SPECIALIST [address] [phone] 07/05/2025 3:00 PM EST Office Visit [facility] [address], [address] [place] [address] Health Maintenance Due Date Last Done Comments [facility]-HIV Screening 1960 [facility]-Infant/Child/Adol SDOH Screenings 1962 Diabetes: Dental Exam 1972 [facility]- SDOH Screenings 1980 [facility]-Adult SDOH Screenings 1980 [facility]-Pneumococcal Vaccine: 50+ Years (1 of 2 - PCV) 1981 [facility]-Zoster Vaccines (1 of 2) 1981 [facility]-DTaP,Tdap,and Td Vaccines (1 - Tdap) 08/09/1996 08/08/1996 CT Colonography 12/21/2007 Colonoscopy 12/21/2007 FIT-DNA 12/21/2007 FIT 12/21/2007 FOBT 12/21/2007 Sigmoidoscopy 12/21/2007 [facility]-Colorectal Cancer Screening 12/21/2007 Lung Cancer Screening Shared Decision Making 2012 [facility]-RSV Vaccine: 60+ Years or (1 - Risk 50-74 years 1-dose series) 2012 [id number] Vaccine (3 - Moderna risk series) 10/17/2020 09/19/2020, 08/22/2020 [facility]-Lung Cancer Screening 10/26/2020 10/27/2019 [facility]-Diabetes: Hemoglobin A1C 09/29/2022, 12/04/2016, 05/23/2016 [facility]-Influenza Vaccine (#1) 2025 04/19/2018 [facility]-Depression Screening 09/22/2025 09/22/2024 [facility]-Hepatitis C Screening Completed 10/27/2019 [facility]-Obesity Intervention Completed 025, 02/22/2025, 12/14/2024, Additional history exists HPV Vaccines (No Doses Required) Completed [facility]-HIB Vaccines Aged Out No longer e [...] on patient's age to complete this topic Medical Devices Implanted Type Area Networks Software Consultant Device Identifier Shelf Expiration Date Model / Serial / Lot Protector Nerve Axoguard 40mm 10mm - [id number] Implanted:Qty: 1 on 02/09/2025 by Berenice Silver MD at [facility] Left: Wrist [id number] 07/12/2026 [id number] / [id number] Procedures Procedure Name Priority Date/Time Associated Diagnosis [...] Adults <6.0% Children and Adolescents <7.5% Source: [place] [employer]. Standards of medical care in diabetes,2017. Diabetes Care.2017:40 (suppl 1):S1-S135. HbA1c assay performed by an ion-exchange chromatography method that is certified traceable to the DCCT. Hilton Maria MD LAB BLOOD ORDERA BLES Final Result [facility] [address] [place] [address] * CT Angio Pulmonary Embolism (10/27/2019 2:46 [...] Flores IMG CT PROCEDURES Final Result * [place] Hepatitis C Antibody (10/27/2019 1:10 PM EDT) [place] Hepatitis C Ab NEGATIVE Reference Range: Negative SUNQUEST 10/27/2019 1:10 PM EDT 10/27/2019 1:19 PM EDT us Bigg Flores LAB BLOOD ORDERABLES Final Resul t SUNQUEST from Last 3 Months or Most Recently Relevant to Health Maintenance Insurance [facility] MEDICAID Care Teams Critical Care Clinical Nurse Specialist Relationship Specialty Start Date End Date Philip Khan MD [facility] [address] [address] PCP - General Internal Medicine 04/01/22 Hilton Maria MD [address] [facility] [address] [place] [address] Surgeon Neurosurgery 04/01/22
--- OUTSIDE RECORDS SUMMARY | 2025-06-02 15:33 | XMS_ITS | Encounter Summary ---
Author Organization [facility] Address [address] [place] [address] Care Team Providers Care Pump Stitcher Name Role Phone Hilton Maria MD Unavailable Philip Khan MD Primary Care Provider [phone] Reason for Referral * Consultation (Routine) - Authorized Specialty Diagnoses / Procedures Referred By Contannabelle davis Referred To Contact Interventional Radiology Diagnoses Cyst of pancreas Abdominal distention Hyperbilirubinemia Nausea and vomiting, unspecified vomiting type Diarrhea, unspecified type Irritable bowel syndrome with constipation Jaane Seo APRN [address] [place] [address] [place] [address] Phone: tel: fax: Referral ID Status Reason Start Date Expiration Date Visits Requested Visits Authorized [id number] Authorized Specialty Services Required 12/26/2024 06/27/2026 1 1 Encounter Details Date Type Department Care Team (Late st Contact Info) Description 12/26/2024 [facility] [address] [place] [address] Janae Seo APRN [address] [place] [address] Cyst of pancreas (Primary Dx); Abdominal distention; [...] Description 06/16/2025 8:20 AM EST Office Visit [facility] [address] [place] [address] Christine Deng, CAPACITOR ASSEMBLER [address] [facility] [address] [place] [phone] 07/05/2025 3:00 PM EST Office Visit [facility] [address] [place] [phone] Scheduled Referrals Name Type Priority Associated Diagnoses Orde r Schedule Ambulatory referral to Diagnostic Radiology Outpatient Referral Routine Cyst of pancreas Abdominal distention Hyperbilirubinemia Nausea and vomiting, unspecified vomiting type Diarrhea, unspecified type Irritable bowel syndrome with constipation Expected: 12/26/2024 (Approximate), Expires: 06/29/2026 documented as of this encounter Visit Diagnoses [...] documented as of this encounter Care Teams Pump Stitcher Relationship Specialty Start Date End Date Philip Khan MD [facility] 2A [id number] PCP - General Internal Medicine 04/01/22 Hilton Maria MD [address] [place] [address] Surgeon Neurosurgery 04/01/22 documented as of this encounter
--- OUTSIDE RECORDS SUMMARY | 2025-06-02 15:33 | XMS_ITS | Encounter Summary ---
Author Organization Healthcare Address [address] [place] [address] Care Team Providers Care Phytopathologist Name Role Phone Hilton Maria MD Unavailable Philip Khan MD Primary Care Provider [phone] Encounter Details Date Type Department Care Team (Late Contact Info) Description 01/21/2023 Orders Only External Location [address] [place] [address] Enrico Flores MD [address] [place] [address] [address] [place] [address] Social History Tobacco Use Types [...] Department Care Team (Late Contact Info) Description 06/16/2025 8:20 AM EST Office Visit [facility] [address] [place] [phone] Christine Deng, LINE OPERATOR [address] [facility] [address] [place] [address] 07/05/2025 3:00 PM EST Office Visit [facility] [address] [place] [address] documented as of this encounter Procedures Procedure Name Priority Date/Time Associated Diagnosis Comments MR OUTSIDE IMAGES 01/21/2023 1:08 PM EDT documented in this encounter Results * MR transfer of outside films (01/21/2023 1:08 PM EDT) Anatomical Region Laterality Modality Magnetic Resonan ce 01/21/2023 1:08 PM EDT us Enrcio Flores MD IMG MRI PROCEDURES Final Resul t documented in this encounter Visit Diagnoses Not on filedocumented in this encounter Additional Health Concerns Assessment Noted Time A fall risk assessment has been complete d for the patient 04/01/2022 9:09 AM EDT documented as of this encounter Care Teams Phytopathologist Relationship Specialty Start Date End Date Philip Khan MD [facility] [address] [address] PCP - General Internal Medicine 04/01/22 Hilton Maria MD [address] [place] [address] Surgeon Neurosurgery 04/01/22 documented as of this encounter
--- OUTSIDE RECORDS SUMMARY | 2025-06-02 15:34 | XMS_ITS | Clinical Summary ---
Author Organization [facility] Address [address] [place] [address] Care Team Providers Care Pipe Smoker Machine Operator Name Role Phone Konstantin Dawn MD Primary Care Provider [phone] Allergies Active Allergy Reactions Criticality Noted Date [...] Activ e vitamin D (ERGOCALCIFEROL) 1.25 MG (88219 UT) capsule capsule 10/07/2021 Active Active Problems [...] 1962 HEPATITIS C SCREENING 1962 TDAP/TD VACCINES (1 - Tdap) 08/09/1996 08/08/1996 COLOGUARD 12/21/2007 COLON CANCER SCREENING 5 [...] - 12/14/2015 8:09 PM EDT Performed at: [address] [place] [id number] Prosthetic Makeup Designer: Concetta Juan MD, Phone: [phone] us Tani Patterson MD LAB BLOOD ORDERABLES Final Resu lt [facility] (AM[facility]UL[facility]) [address] [place] [address], [place] [phone] [facility] [address] [place] [address], [place] [phone] * (ABNORMAL) Lipid panel (12/14/2015 1:47 PM EDT) [facility] Total Cholesterol 140 0 - 200 mg/dL [...] - 12/14/2015 8:09 PM EDT Performed at: [address] [place] [id number] Prosthetic Makeup Designer: Concetta Juan MD, Phone: [phone] us Tani Patterson MD LAB BLOOD ORDERABLES Final Resu lt [facility] (AM[facility]ULATORY) [address] [place] [address], [place] [phone] [facility] [address] [place] [address], [place] [phone] from Last 3 Months or Most Recently Relevant to Health Maintenance Care Teams Pipe Smoker Machine Operator Relationship Specialty Start Date End Date Konstantin Dawn MD [address] [place] [address] PCP - General Internal Medicine 08/13/21
--- OUTSIDE RECORDS SUMMARY | 2025-06-02 15:34 | XMS_ITS | Encounter Summary ---
Author Organization [facility] Address [address] [place] [address] Care Team Providers Care Hogshead Head Matcher Name Role Phone Hilton Maria MD Unavailable Philip Khan MD Primary Care Provider [phone] Reason for Referral * Consultation (Routine) - Authorized Specialty Diagnoses / Procedures Referred By Contac t Referred To Contact Endocrinology Diagnoses Type II diabetes mellitus [place] [address] fax: [facility] Endocrinology [address] [place] [phone] Phone: tel: fax: Referral ID Status Reason Start Date Expiration Date Visits Requested Visits Authorized [id number] Authorized Specialty Services Required 11/17/2025 1 1 Encounter Details Date Type Department Care Team (Late st Contact Info) Description 05/18/2024 Community [facility] Community Practice [address] [place] [address] [place] [address] 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) (Primary Dx) Social History Tobacco Use Types Packs/Day Years Used Date Smoking Tobacco: Former Cigarettes 1.5 30 1 9 - 2018 Passive Smoke Exposure: Past Smokeless [...] Description 06/16/2025 8:20 AM EST Office Visit [facility] [address] [place] [address] Christine Deng, FINANCIAL SERVICES ASSISTANT [address] [facility] [address] [place] [address] 07/05/2025 3:00 PM EST Office Visit [facility] [address], [address] [place] [address] Scheduled Referrals Name Type Priority Associated Diagnoses [...] documented as of this encounter Care Teams Hogshead Head Matcher Relationship Specialty Start Date End Date Philip Khan MD [facility] 2A [address] PCP - General Internal Medicine 04/01/22 Hilton Maria MD [address] [place] [address] Surgeon Neurosurgery 04/01/22 documented as of this encounter
--- OUTSIDE RECORDS SUMMARY | 2025-06-02 15:34 | XMS_ITS | Encounter Summary ---
Author Organization [facility] Address [address] [place] [address] Care Team Providers Care Geophysical Party Chief Name Role Phone Hilton Maria MD Unavailable Philip Khan MD Primary Care Provider [phone] Reason for Referral * Consultation (Routine) - Closed Specialty Diagnoses / Procedures Referred By Contac t Referred To Contact Nephrology Diagnoses Stage 3b chronic kidney disease (CMS/HCC) Kyler Holloway MD [address] [address] Phone: tel: fax: Kirby Colin MD [address] [address] Phone: tel: fax: Referral ID Status Reason Start Date Expiration Date V isits Requested Visits Authorized [id number] Closed Specialty Services Required 02/16/2024 08/17/2025 1 1 Encounter Details Date Type Department Care Team (Late st Contact Info) Description 02/16/2024 Community [facility] Community Practice [address] [place] [phone] Kyler Holloway MD [address] [address] Stage 3b chronic kidney disease [...] Description 06/16/2025 8:20 AM EST Office Visit [facility] [address] [facility] [address] [place] [address] Christine Deng, AMBULATORY CARE NURSE [address] [facility] [address] [place] [address] 07/05/2025 3:00 PM EST Office Visit [place] [facility] Medicine Specialties [address] [place] [address] Scheduled Referrals Name Type Priority [...] documented as of this encounter Care Teams Geophysical Party Chief Relationship Specialty Start Date End Date Philip Khan MD [facility] 2A [address] PCP - General Internal Medicine 04/01/22 Hilton Maria MD [address] [place] [address] Surgeon Neurosurgery 04/01/22 documented as of this encounter
--- OUTSIDE RECORDS SUMMARY | 2025-06-02 15:34 | XMS_ITS | Patient Health Record ---
Author Organization [facility] Address [address] [place] [address] [address] [place] [address] Care Team Providers Care Supervisor Lead Refinery Name Role Phone Lyndon Hernandez MD Unavailable [...] Risk Notes Problem Malignant tumor of lung (487729258) Malignant neoplasm of unspecified part of unspecified bronchus or lung (C34.90) Active confirmed Problem Cervical spondylosis without myelopathy (225996657) Other spondylosis with radiculopathy, cervical region (M47.22) Active confirmed Problem Lumbosacral spondylosis without myelopathy (disorder) (11284762) Spondylosis without myelopathy or radiculopathy, lumbosacral region (M47.817) Active confirmed Problem Long-term current use of drug therapy (065721056) [facility] ([facility] drug therapy (Z79.899) Active confirmed Plan Of Treatment No Information Insurance Providers Payer Name Payer Address Payer Phone Subscriber Number Group Number Insured Name Patient Relationship to Insured Coverage Start Date Coverage End Date [place] An[place] Medicaid [address] [address] [place] [address] [id number] [facility] Seamus Persaud Self - patient is [...] Medina CHF [address] Medina CA [address] Gonzalez Arthritis [address] Medina Anemia [address] Medina CAD [address] Gonzalez 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 Surgery Date(Month/Year) [facility]bladder- [facility](OP) 2009 Lt shoulder- Dr. Dickerson/ [facility] (OP) 20 12 Rt Knee surgery X2- Dr. Hayes/ [facility] ([facility]) [address] Olvera/ [facility](OP) 01/2017 Cardiac Ablation for SVT at / (OP) 201 7 Colonoscopy [facility]- Dr Reba hernández (OP) 2018 Capsule endoscopy- Dr. Dickinson/ [facility] (O P) 09/2018 EGD/EUS- Dr. Locke/ [facility] (OP) 07/28 19 [facility] W/out stents/ [facility] (OP) 07/2018 EGD- [facility]/Jon Jones / OP 06/09 021
--- OUTSIDE RECORDS SUMMARY | 2025-06-02 15:34 | XMS_ITS | Encounter Summary ---
Author Organization [facility] Address [address] [place] [address] Care Team Providers Care Station Gateman Name Role Phone Hilton Maria MD Unavailable Philip Khan MD Primary Care Provider [phone] Encounter Details Date Type Department Care Team (Late st Contact Info) Description 02/10/2025 Orders Only [facility] [address] [place] [address] Darvin Price MD [address] [id number] Social History Tobacco Use Types Packs/Day Years [...] Description 06/16/2025 8:20 AM EST Office Visit [facility] [address] [place] [phone] Christine Deng, BALE OPENER [address] [place] [phone] 07/05/2025 3:00 PM EST Office Visit [facility] Medicine Specialties [address] [place] [address] documented as of this encounter Visit Diagnoses Not on filedocumented in this encounter Additional Health Concerns Assessment Noted Time A fall risk assessment has been complete d for the patient 12/14/2024 10:01 AM EDT A Body Mass Index follow-up plan has been documented for the patient 12/15/2024 10:44 AM EDT documented as of this encounter Care Teams Station Gateman Relationship Specialty Start Date End Date Philip Khan MD [facility] 2A [address] PCP - General Internal Medicine 04/01/22 Hilton Maria MD [address] [place] [address] Surgeon Neurosurgery 04/01/22 documented as of this encounter
--- OUTSIDE RECORDS SUMMARY | 2025-06-02 15:34 | XMS_ITS | Patient Health Record ---
Author Organization [facility] Address [address] [place] [address] Care Team Providers Care [employer] Associate Name Role Phone Reji Jordan II Unavailable [phone] Adam OSUNA -Lyndon Celestin Unavailable Un available Ted Farrell Unavailable [phone] Allergies Allergen (clinical drug ingredient) Drug/Non Drug [...] Oxycodone (OXY) NEG Urine Test ANALYZER Reviewed date:08/29/2024 10:56:03 AM Interpretation:ALL NEG Performing Lab: Notes/Report: ALL NEG Heroin Metabolite (6AM) NEG Amphetamine (AMP) NEG Benzodiazepine (ANKUR) NEG Buprenorphine NEG Cocaine (BENNETT) NEG Hydrocodone (HYD) NEG Methadone (MTD) NEG Opiate (OPI) NEG Oxycodone (OXY) NEG Urine Test ANALYZER Reviewed date:02/07/2025 09:20:09 AM Interpretation:+OXY Performing Lab: Notes/Report: +OXY Heroin Metabolite (6AM) NEG Amphetamine (AMP) NEG Benzodiazepine (ANKUR) NEG Buprenorphine NEG Cocaine (BENNETT) NEG Methadone (MTD) NEG Opiate (OPI) NEG Oxycodone (OXY) POS Urine Test LCMS Definitive Reviewed date:08/16/2024 09:48:10 AM Interpretation:+gbp Performing Lab: Notes/Report: +gbp Urine Test LCMS Definitive Reviewed date:09/20/2024 06:38:46 AM Interpretation:+gbp+benzo Performing Lab: Notes/Report: +gbp+benzo Urine Test ANALYZER Reviewed date:12/16/2024 01:08:06 PM [...] orally 2 times a day 05/13/2022 Active clopidogrel 75 mg 1 tab(s) orally once a day; Duration: 30 day(s) 05/13/2022 Active ranolazine 1000 mg 1 tab(s) orally 2 times a day; Duration: 30 day(s) 06/04/2022 Active Lidocaine, Topical 4% 1 patch applied topically once a day; Duration: 30 days Active OxyCODONE Hydrochloride 10 mg 1 tab(s) orally 3 times a day; Duration: 28 days MARCH 2025 RX, DO NOT FILL SOONER THAN 28 DAYS, (OK TO FILL EARLY, ONLY IF CLOSED) Active OxyCODONE Hydrochloride 10 mg 1 tab(s) orally 3 times a day; Duration: 28 days 2024 RX, DO NOT FILL SOONER THAN 28 DAYS, (OK TO FILL EARLY, ONLY IF CLOSED) Active baclofen 10 mg 1 tab(s) orally 3 times a day; Duration: 30 days Active Metoprolol Tartrate 25 mg 1 tab(s) orally 2 times a day; Duration: 30 day(s) 05/13/2022 Active Jardiance 25 mg 1 tab(s) orally once a day (in the morning) 05/13/2022 Active Crestor 20 mg 1 tab(s) orally once a day Active isosorbide mononitrate 30 mg 1 tab(s) orally once a day (in the morning); Duration: 30 day(s) 06/04/2022 Active ProAir HFA 90 mcg/inh 2 puff(s) inhaled every 6 hours 05/13/2022 Active Problems Problem Type SNOMED Code ICD Code Onset Dates Problem Status W/U Status Risk Notes Problem Malignant tumor of lung (546052638) Malignant neoplasm of unspecified part of unspecified bronchus or lung (C34.90) Active confirmed Problem Cervical spondylosis without myelopathy (295579495) Other spondylosis with radiculopathy, cervical region (M47.22) Active confirmed Problem Lumbosacral spondylosis without myelopathy (disorder) (73690338) Spondylosis without myelopathy or radiculopathy, lumbosacral region (M47.817) Active confirmed Problem Degeneration of lumbar intervertebral disc (11300646) Other intervertebral disc degeneration, lumbar region (M51.36) Active confirmed Problem Long-term current use of drug therapy (061927330) Other detention (current) drug therapy (Z79.899) Active confirmed Vital Signs Heart Rate 67 /min 02/07/2025 Blood pressure diastolic 74 mm Hg 02/07/2025 Height 65 in 02/07/2025 Blood pressure systolic 114 mm Hg 02/07/2025 Weight 209 lbs 02/07/2025 BMI 34.78 kg/m2 02/07/2025 Encounters Encounter Location Date Provider Diagnosis [facility] [address] [place] [address] 06/23/2024 Reji Jordan Other detention (current) drug therapy Z79.899 ; Spondylosis without myelopathy or radiculopathy, lumbosacral region M47.817 and Malignant neoplasm of unspecified part of unspecified bronchus or lung C34.90 [facility] [address] [place] [address] 08/26/2024 Reji Jordan Other detention (current) drug therapy Z79.899 ; Spondylosis without myelopathy or radiculopathy, lumbosacral region M47.817 and Malignant neoplasm of unspecified part of unspecified bronchus or lung C34.90 [facility] [address] [place] [address] 10/21/2024 Reji Jordan Other detention (current) drug therapy Z79.899 ; Spondylosis without myelopathy or radiculopathy, lumbosacral region M47.817 and Malignant neoplasm of unspecified part of unspecified bronchus or lung C34.90 [facility] [address] [place] [address] 12/16/2024 Ted Farrell Other detention (current) drug therapy Z79.899 ; Spondylosis without myelopathy or radiculopathy, lumbosacral region M47.817 and Malignant neoplasm of unspecified part of unspecified bronchus or lung C34.90 [facility] [address] [place] [address] 01/03/2025 Reji Jordan Other intervertebral disc degeneration, lumbar region M51.36 [facility] [address] [place] [address] 02/07/2025 Reji Jordan Other detention (current) drug therapy Z79.899 ; Spondylosis without myelopathy or radiculopathy, lumbosacral region M47.817 and Malignant neoplasm of unspecified part of unspecified bronchus or lung C34.90 [facility] [address] [place] [address] 06/23/2024 Reji Jordan Other detention (current) drug therapy Z79.899 [facility] [address] [place] [address] 06/23/2024 Reji Jordan [facility] [address] [place] [address] 08/26/2024 Reji Jordan Other detention (current) drug therapy Z79.899 [facility] [address] [place] [address] 10/21/2024 Reji Jordan Other detention (current) drug therapy Z79.899 [facility] [address] [place] [address] 10/28/2024 [facility] [address] [place] [address] 12/16/2024 Ted Farrell [facility] [address] [place] [address] 02/07/2025 Reji Jordan Other intermediate teacher (current) drug therapy Z79.899 [facility] [address] [place] [address] 03/01/2025 Reji Jordan Assessments Encounter Date Diagnosis (ICD Code) Assessment Notes Treatment Notes Treatment Clinical Notes Section Notes 06/23/2024 Spondylosis without myelopathy or radiculopathy, lumbosacral [...] and F/U in 2 months. 06/23/2024 Other intermediate teacher (current) drug therapy (ICD-10 - Z79.899) 06/23/2024 [...] as flexion extension of the head. TIFFANIEE strong equal. Patient was scheduled to have [...] and F/U in 2 months. 06/23/2024 Other intermediate teacher (current) drug therapy (ICD-10 - Z79.899) 08/26/2024 [...] Opioid risk assessment is low 08/26/2024 Other intermediate teacher (current) drug therapy (ICD-10 - Z79.899) 08/26/2024 [...] Opioid risk assessment is low 08/26/2024 Other detention (current) drug therapy (ICD-10 - Z79.899) 10/21/2024 Other detention (current) drug therapy (ICD-10 - Z79.899) 10/21/2024 [...] is also managed by Dr. Thomas in [place] for additional medications, including Ambien, gabapentin, and [...] is scheduled in two months. 10/21/2024 Other intermediate teacher (current) drug therapy (ICD-10 - Z79.899) 12/16/2024 Other detention (current) drug therapy (ICD-10 - Z79.899) 12/16/2024 1. Refill Oxycodone 10 mg TID 2. F/U 2 months 3. Refill baclofen 10mg TID 4. Refill lidocaine patches daily 5. Screen Expected,Sen t for Definitive bc of last 3 neg definitives, PILL COUNT NEAR FUTURE 6.Scheule #1 LESI L5/S1 December 16, 2024: The patient presents to the [facility] office in [facility] for an audiovisual-telemedicin e visit. The patient was evaluated by the medical staff credentialing coordinator and a urine drug screen was obtained as well as vital signs. Portions of the physical examination were assisted by the medical staff credentialing coordinator during the audiovisual-telemedicin e visit History and [...] is also managed by Dr. Thomas in [place] for additional medications, including Ambien, gabapentin, and [...] is abnormal we will discontinue opioid therapy. 01/03/2025 Other intervertebral disc degeneration, lumbar region (ICD-10 - M51.36) 02/07/2025 Other detention (current) drug therapy (ICD-10 - Z79.899) 02/07/2025 Other intermediate teacher (current) drug therapy (ICD-10 - Z79.899) 02/07/2025 1. Refill Oxycodone 10 mg TID 2. F/U 2 months 3. Refill baclofen 10mg TID 4. Refill lidocaine patches daily 5. Screen Expected,Sen t for Definitive bc of last 3 neg definitives, PILL COUNT NEAR FUTURE 6.S/p #1 LESI L5/S1 December 16, 2024: The patient presents to the [facility] office in [facility] for an audiovisual-telemedicin e visit. The patient was evaluated by the medical staff credentialing coordinator and a urine drug screen was obtained as well as vital signs. Portions of the physical examination were assisted by the medical staff credentialing coordinator during the audiovisual-telemedicin e visit History and [...] is also managed by Dr. Thomas in [place] for additional medications, including Ambien, gabapentin, and [...] is abnormal we will discontinue opioid therapy. 02/07/25 Pt. presents to the [facility] in [facility] for gordon audiovisual telemedicine visit with patiehnt's consent. The patient was evaluated by the MA including an UDS and VS. Portions of the PE were assisted by the MA as instructed during the audiovisual telemedicine interview. Pt. denies concerns or negative side effects of his POC for pain management. Pt. has had inconsistent UDS for opiates the past6 months. Today positive for opiates. Pt. was to have a pill count since his last appt. but it was not done. Will refill his medication today without dosage changes. Will order another PILL COUNT to be in 2 weeks. Salvador reviewed rtc 2 months 02/07/2025 Spondylosis without myelopathy or radiculopathy, lumbosacral region (ICD-10 - M47.817) December 16, 2024: The patient presents to the [facility] office in [facility] for an audiovisual-telemedicin e visit. The patient was evaluated by the medical staff credentialing coordinator and a urine drug screen was obtained as well as vital signs. Portions of the physical examination were assisted by the medical staff credentialing coordinator during the audiovisual-telemedicin e visit History and [...] is also managed by Dr. Thomas in [place] for additional medications, including Ambien, gabapentin, and [...] is abnormal we will discontinue opioid therapy. 02/07/25 Pt. presents to the [facility] in [facility] for gordon audiovisual telemedicine visit with patiehnt's consent. The patient was evaluated by the MA including an UDS and VS. Portions of the PE were assisted by the MA as instructed during the audiovisual telemedicine interview. Pt. denies concerns or negative side effects of his POC for pain management. Pt. has had inconsistent UDS for opiates the past6 months. Today positive for opiates. Pt. was to have a pill count since his last appt. but it was not done. Will refill his medication today without dosage changes. Will order another PILL COUNT to be in 2 weeks. Salvador reviewed rtc 2 months 10/21/2024 Spondylosis without myelopathy or radiculopathy, lumbosacral [...] is also managed by Dr. Thomas in [place] for additional medications, including Ambien, gabapentin, and tizanidine. Due to recent UDS findings and behavior, he will require a pill count in the near future. Refills for oxycodone 10mg TID, baclofen 10mg TID, and daily lidocaine patches were sent today. A definitive screen has been ordered given the history of three consecutive negative definitive UDS results. Follow-up is scheduled in two months. 12/16/2024 Spondylosis without myelopathy or radiculopathy, lumbosacral region (ICD-10 - M47.817) December 16, 2024: The patient presents to the [facility] office in [facility] for an audiovisual-telemedicin e visit. The patient was evaluated by the medical staff credentialing coordinator and a urine drug screen was obtained as well as vital signs. Portions of the physical examination were assisted by the medical staff credentialing coordinator during the audiovisual-telemedicin e visit History and [...] is also managed by Dr. Thomas in [place] for additional medications, including Ambien, gabapentin, and [...] is abnormal we will discontinue opioid therapy. 08/26/2024 Malignant neoplasm of unspecified part of [...] reviewed. Refills and F/U in 2 months. 12/16/2024 Malignant neoplasm of unspecified part of unspecified bronchus or lung (ICD-10 - C34.90) December 16, 2024: The patient presents to the [facility] office in [facility] for an audiovisual-telemedicin e visit. The patient was evaluated by the medical staff credentialing coordinator and a urine drug screen was obtained as well as vital signs. Portions of the physical examination were assisted by the medical staff credentialing coordinator during the audiovisual-telemedicin e visit History and [...] side effect of the medicine. Salvador and ROGERS were reviewed. Opioid risk assessment is low [...] is also managed by Dr. Thomas in [place] for additional medications, including Ambien, gabapentin, and [...] abnormal we will discontinue opioid therapy. 10/21/2024 Malignant neoplasm of unspecified part of [...] is also managed by Dr. Thomas in [place] for additional medications, including Ambien, gabapentin, and tizanidine. Due to recent UDS findings and behavior, he will require a pill count in the near future. Refills for oxycodone 10mg TID, baclofen 10mg TID, and daily lidocaine patches were sent today. A definitive screen has been ordered given the history of three consecutive negative definitive UDS results. Follow-up is scheduled in two months. 02/07/2025 Malignant neoplasm of unspecified part of unspecified bronchus or lung (ICD-10 - C34.90) December 16, 2024: The patient presents to the [facility] office in [facility] for an audiovisual-telemedicin e visit. The patient was evaluated by the medical staff credentialing coordinator and a urine drug screen was obtained as well as vital signs. Portions of the physical examination were assisted by the medical staff credentialing coordinator during the audiovisual-telemedicin e visit History and [...] is also managed by Dr. Thomas in [place] for additional medications, including Ambien, gabapentin, and [...] is abnormal we will discontinue opioid therapy. 02/07/25 Pt. presents to the [facility] in [facility] for gordon audiovisual telemedicine visit with patiehnt's consent. The patient was evaluated by the MA including an UDS and VS. Portions of the PE were assisted by the MA as instructed during the audiovisual telemedicine interview. Pt. denies concerns or negative side effects of his POC for pain management. Pt. has had inconsistent UDS for opiates the past6 months. Today positive for opiates. Pt. was to have a pill count since his last appt. but it was not done. Will refill his medication today without dosage changes. Will order another PILL COUNT to be in 2 weeks. Salvador reviewed rtc 2 months 08/23/2024 06/23/2024 Seamus presents for follow up. [...] Definitive 10/21/2024 Urine Test LCMS Definitive 12/16/2024 Urine Test LCMS Definitive 02/07/2025 Insurance Providers Payer Name Payer Address Payer Phone Subscriber Number Group Number Insured Name Patient Relationship to Insured Coverage Start Date Coverage End Date [employer] [address] [place] [address] [id number] [facility] Seamus Persaud Self - patient is the insured 5 Medical (General) History Medical History History ICD [...] [place] CHF [address] Medina [place] [address] Gonzalez Arthritis [address] Medina Anemia [address] Medina CAD [address] Gonzalez 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 Surgery Date(Month/Year) pt had surgery on left wrist at [facility]. (OP) 12/21/2023 EGD- [facility] / OP 06/09 021 [facility] W/out stents/ Patrick Clayton (OP) 07/2018 EGD/EUS- Dr. Locke/ [facility] (OP) 07/28 18 Capsule endoscopy- Dr. Dickinson/ [facility] (O P) 09/2018 Colonoscopy [facility]- Dr Reba hernández (OP) 2018 Cardiac Ablation for SVT at / (OP) [address] Olvera/ [facility](OP) 01/2017 Gallbladder- [place]) 2008 Rt Knee surgery X2- Dr. Hayes/ [facility] (OP) 2013 Lt shoulder- Dr. Dickerson/ [place] (OP) 20 12 Hospitalization History Reason Date(Month/Year) heart/kidney [facility] 06/08/2023 [facility] - Swollen Knee (RT) - OP 04/02/2024
[2025-06-02 15:42] VITALS: BP 113/59; PULSE 57; RESP 18; TEMP 36.8; O2SAT 95
== END 2025-06-02 15:51 | disposition home or self-care (01) ==
LOC: ER 15:32
PROVIDERS: Emergency Provider Student in an Organized Health Care Education/Training Program; PCP Family Medicine
DX: M17.11 Unilateral primary osteoarthritis, right knee (principal)
CPT/HCPCS: 99282; 99283